=== PATIENT | female | born 1935 | race Caucasian/White ===

== ENCOUNTER 2016-08-14 21:35 | Emergency (ER) | payer MEDICARE, OTHER ==
[2016-08-14 21:46] VITALS: BMI 23.1
[2016-08-14 21:56] VITALS: TEMP 99
[2016-08-14] MEDS ORDERED: ALBUTEROL SO4 0.083% IH SOL 2.5 MG/3 ML VIAL.NEB. NEB ONE (22:12)
--- NOTE | 2016-08-14 22:12 | PDOC ---
History of Present Illness - General History Source: EMS, Alf Records, Old Records Exam Limitations: Clinical Condition - History of Present Illness Initial Comments: 08/14/16 22:53 Patient is an 81 year old female with significant past medical history of COPD, chronic trach, iron deficiency anemia, chronic respiratory failure, CHF, HTN, cardiac arrest, GERD and hx of upper GI bleed sent [facility] [place] [facility] via EMS found to be in respiratory failure. As per EMS the patient was found hypercapnic and after albuterol treatment and suction patient improved. Patient is awake, alert and mouthing words. HPI is limited due to patient's condition. PSH: AICD placement PCP - Dr. Cook <Kristina Knapp - Last Filed: 08/15/16 00:35> <Blanca Hammond - Last Filed: 08/15/16 02:49> - General Chief Complaint: Respiratory Stated Complaint: RESPIRATORY DISTRESS Time Seen by Provider: 08/14/16 21:55 Past History <Kristina Knapp - Last Filed: 08/15/16 00:35> - Past Medical History Anemia: No Asthma: No Cancer: No Cardiac Disorders: Yes (CARDIAC ARREST 1998) CVA: No COPD: Yes CHF: No Dementia: Yes (SHORT TERM MEMORY LOSS) Diabetes: No GI Disorders: No Disorders: No HTN: Yes (RECENTLY STARTED ON BYSTOLIC) Hypercholesterolemia: Yes Liver Disease: No Seizures: No Thyroid Disease: No - Surgical History Abdominal Surgery: No Appendectomy: No Cardiac Surgery: Yes (DEFIBRILLATOR) Cholecystectomy: No Lung Surgery: No Neurologic Surgery: No Orthopedic Surgery: No - Immunization History Immunization Up to Date: Yes - Psycho/Social/Smoking Cessation Hx Anxiety: No Suicidal Ideation: No Smoking History: Unknown if ever smoked Have you smoked in the past 12 months: No Number of Cigarettes Smoked Daily: 0 Cigars Per Day: 0 Information on smoking cessation initiated: No Hx Alcohol Use: No Drug/Substance Use Hx: No Substance Use Type: None <Blanca Hammond - Last Filed: 08/15/16 02:49> - Past Medical History Allergies/Adverse Reactions: Allergies Allergy/AdvReac Type Severity Reaction Status Date / Time doxycycline Allergy Intermediate Verified 08/14/16 21:43 CLAMS Allergy Intermediate Hives Uncoded 08/14/16 21:43 Home Medications: Ambulatory Orders Simvastatin [Zocor -] 20 mg PO DAILY 05/24/12 Ascorbate Calcium [Vitamin C] 500 mg PO DAILY 01/20/16 Docusate Sodium 300 mg PO HS 01/20/16 Ferrous Sulfate 325 mg PO BID 01/20/16 Hypromellose 0.5% Opth Soln [Artificial Tears] 1 drop OU BID 01/20/16 Rivaroxaban [Xarelto -] 20 mg PO DAILY 01/20/16 Clonazepam 0.5 mg PO DAILY 04/15/16 Lactose-Reduced Food [Ensure Plus] 237 ml PO BID 04/15/16 Multivitamins [Multivit ([facility] Formulary)] 1 tab PO DAILY 04/15/16 Acetaminophen [Tylenol .Regular Strength -] 650 mg PO Q4H PRN #0 tablet Bacitracin - [Bacitracin Topical Ointment -] 1 applic TP DAILY #1 tube 04/21/16 Cyproheptadine [Periactin -] 4 mg PO Q12H 08/14/16 Ipratropium [place] 0.2 mg IH QID 08/14/16 Loratadine 10 mg PO DAILY 08/14/16 Omeprazole 20 mg PO DAILY 08/14/16 Ranitidine HCl [Zantac] 150 mg PO DAILY 08/14/16 Review of Systems - Review of Systems Able to Perform ROS?: No Comments:: 08/14/16 22:53 Patient was found in respiratory distress, unable to obtain ROS due to patient' s clinical condition. <Kristina Knapp - Last Filed: 08/15/16 00:35> *Physical Exam - Vital Signs Last Vital Signs Temp Pulse Resp BP Pulse Ox 99 F 92 H 12 103/60 99 08/14/16 21:43 08/14/16 22:34 08/14/16 21:57 08/14/16 22:34 08/14/16 22:34 - Physical Exam Comments: 08/14/16 22:54 GENERAL: +Frail, alert, mouthing words, chronic trach. HEENT: Normocephalic, atraumatic. PERRLA, EOMI. No conjunctival pallor. Sclera are non- icteric. Moist mucous membranes. Oropharynx is clear. NECK: Supple. Full ROM. No JVD. Carotid pulses 2+ and symmetric, without bruits. No thyromegaly. No lymphadenopathy. CARDIOVASCULAR: Regular rate and rhythm. No murmurs, rubs, or gallops. Distal pulses are 2+ and symmetric. PULMONARY: +Rhonchorous breath sounds, respiratory distress. No wheezing, rales. ABDOMINAL: Soft. Non-tender. Non-distended. No rebound or guarding. No organomegaly. Normoactive bowel sounds. MUSCULOSKELETAL Normal range of motion at all joints. No bony deformities or tenderness. No CVA tenderness. EXTREMITIES: No cyanosis. No clubbing. No edema. No calf tenderness. SKIN: Warm and dry. Normal capillary refill. No rashes. No jaundice. NEUROLOGICAL: Alert, awake, appropriate. Cranial nerves 2-12 intact. No deficits to light touch and temperature in face, upper extremities and lower extremities. No motor deficits in the in face, upper extremities and lower extremities. Normoreflexic in the upper and lower extremities. Toes are down-going bilaterally. PSYCHIATRIC: Cooperative. Good eye contact. Appropriate mood and affect. <Kristina Knapp - Last Filed: 08/15/16 00:35> - Vital Signs Last Vital Signs Temp Pulse Resp BP Pulse Ox 99 F 95 H 12 97/65 99 08/14/16 21:43 08/14/16 21:57 08/14/16 21:57 08/14/16 21:43 08/14/16 21:57 <Blanca Hammond - Last Filed: 08/15/16 02:49> ED Treatment Course - LABORATORY CBC & Chemistry Diagram: 08/14/16 22:19 08/14/16 22:19 - ADDITIONAL ORDERS Additional order review: 08/14/16 22:19 RBC 4.08 MCV 87.1 MCHC 32.6 RDW 14.8 MPV 9.1 D Neutrophils % 83.8 H Lymphocytes % 7.0 L Monocytes % 8.2 D Eosinophils % 0.5 D Basophils % 0.5 - RADIOLOGY Radiology Studies Ordered: 08/15/16 00:35 EXAM: X-RAY CHEST Small lucency projecting lateral to left sixth rib interspace and lucnecy in left costophrenic angle, question small pneumothorax/subpleural bleb and small lung herniation versus artifact. Advise correlation with prior radiographs if available and if not, follow-up chest CT. No focal lung consolidation. Small left pleural effusion. Compression and/or consolidation lower left lung. Stent ascending aorta. Left chest AICD. Cardiomegaly and/or pericardial effusion. Tracheostomy tube. Hyperinflation lungs due to emphysema or deep breath. - Medications Given in the ED: ED Medications Discontinued Medications Generic Name Dose Route Start Last Admin Trade Name Freq PRN Reason Stop Dose Admin Albuterol Sulfate 1 amp 08/14/16 22:12 08/14/16 22:19 Ventolin 0.083% Nebulizer Soln - NEB 08/14/16 22:13 1 amp ONCE ONE Administration <Kristina Knapp - Last Filed: 08/15/16 00:35> - LABORATORY CBC & Chemistry Diagram: 08/14/16 22:19 08/14/16 22:19 - RADIOLOGY Radiology Studies Ordered: Category Date Time Status CHEST X-RAY PORTABLE* [RAD] Stat Radiology 08/14/16 22:04 Ordered <Blanca Hammond - Last Filed: 08/15/16 02:49> Medical Decision Making - Medical Decision Making 08/15/16 02:37 The paramedics stated the patient was initially in respiratory distress, but after suctioning copious amounts of secretions in her trach she felt much better neg trop cbc unremarkable no fever pt was alert during her hospital stay -she did receive neb treatment and suctioning in ER IMP mucus plug <Blanca Hammond - Last Filed: 08/15/16 02:49> *DC/Admit/Observation/Transfer - Attestations Scribe Attestion: 08/14/16 22:56 Documentation prepared by SUSANNE Newton, acting as nurses medical assistants phlebotomists for Blanca Hammond MD. <Kristina Knapp - Last Filed: 08/15/16 00:35> <Blanca Hammond - Last Filed: 08/15/16 02:49> Diagnosis at time of Disposition: Respirator dependence Chronic respiratory failure Qualifiers: Respiratory failure complication: hypercapnia Qualified Code(s): J96.12 - Chronic respiratory failure with hypercapnia - Discharge Dispostion Disposition: HOME Condition at time of disposition: Stable - Referrals Referrals: Royer Verduzco MD [Primary Care Provider] - - Patient Instructions Printed Discharge Instructions: DI for Chronic Obstructive Pulmonary Disease Additional Instructions: please continue regular medications
[2016-08-14 22:35] VITALS: BP 103/60; PULSE 92
[2016-08-14 22:38] LABS: BASOPHIL 0.5 % (0-2.0); EOSINOPHIL 0.5 % (0-4.5); MCH 28.4 pg (25.7-33.7); MCHC 32.6 g/dl (32.0-36.0); MEAN CELL VOLUME 87.1 fl (80-96); MEAN PLT VOLUME 9.1 fl (7.5-11.1); NEUTROPHILS 83.8 % (42.8-82.8); PLATELET COUNT 166 K/MM3 (134-434); RDW 14.8 % (11.6-15.6); WHITE BLOOD COUNT 8.6 K/mm3 (4.0-10.0)
[2016-08-14 23:13] LABS: ANION GAP 4 (8-16); CALCIUM 8.7 mg/dL (8.5-10.1); CO2 35 mmol/L (21-32); CREATININE 0.6 mg/dL (0.55-1.02); GLUCOSE,RANDOM 151 mg/dL (74-106); SGOT/AST 16 U/L (15-37); SGPT/ALT 20 U/L (12-78); TROPONIN I < 0.02 ng/ml (0.00-0.05)
[2016-08-14 23:15] LABS: ALK PHOS 98 U/L (45-117); BILIRUBIN,TOTAL 0.2 mg/dL (0.2-1.0); TOT PROT 6.6 g/dl (6.4-8.2)
[2016-08-15 01:43] LABS: ARTERIAL BLD GAS O2 SATURATION 98.9 % (90-98.9); ARTERIAL BLOOD GAS BASE EXCESS 8.5 meq/l (-2-2); ARTERIAL BLOOD GAS pH 7.38 (7.35-7.45)
[2016-08-15 01:44] LABS: ALLENS TEST POSITIVE; ART PUNCT SITE RIGHT RADIAL; LPM/O2% 45%; MECH. VENT. YES; PT. ON O2? YES; TYPE OF O2 MECH VENT; VENT RATE 12; VT/PRESS 450
[2016-08-15 01:45] LABS: ARTERIAL BLOOD GAS HCO3 35.1 meq/L (22-26)
[2016-08-15] MEDS ORDERED: ALBUTEROL SO4 2.5/IPRATROPIUM 0.5 INH SOL 3 ML VIAL.NEB. NEB ONE ×2 (02:36→02:53)
--- NOTE | 2016-08-15 12:48 | EKG ---
Test Reason : Blood Pressure : / mmHG Vent. Rate : 092 BPM Atrial Rate : 092 BPM P-R Int : 136 ms QRS Dur : 074 ms QT Int : 332 ms P-R-T Axes : 000 -47 063 degrees QTc Int : 410 ms NORMAL SINUS RHYTHM LEFT AXIS DEVIATION ANTEROSEPTAL INFARCT (CITED ON OR BEFORE 15-APR-2016) ABNORMAL ECG WHEN COMPARED WITH ECG OF 15-APR-2016 01:13, PREMATURE ATRIAL COMPLEXES ARE NO LONGER PRESENT T WAVE VARIATION Confirmed by NIKHIL LINN MD ([id number]) on 08/15/2016 12:48:22 PM Referred By: Confirmed By:NIKHIL LINN MD
== END 2016-08-15 05:15 ==
LOC: JER 21:35
PROC: 3E0F7GC Introduction of Other Therapeutic Substance into Respiratory Tract, Via Natural or Artificial Opening (ICD-10-PCS; principal; 2016-08-14)
PROC: 3E0F7GC Introduction of Other Therapeutic Substance into Respiratory Tract, Via Natural or Artificial Opening (ICD-10-PCS; 2016-08-14)
DX: J96.12 Chronic respiratory failure with hypercapnia (principal); T17.890A Other foreign object in other parts of respiratory tract causing asphyxiation, initial encounter; J44.9 Chronic obstructive pulmonary disease, unspecified; I10 Essential (primary) hypertension; K21.9 Gastro-esophageal reflux disease without esophagitis; I50.9 Heart failure, unspecified; D50.9 Iron deficiency anemia, unspecified; Z93.0 Tracheostomy status; Z86.74 Personal history of sudden cardiac arrest
CPT/HCPCS: 36415; 36600; 71010-TC; 80053; 82375; 82550; 82803; 83880; 84484; 85025; 93005; 93010; 99283-25

== ENCOUNTER 2016-08-17 16:51 | Inpatient (IN) | payer OTHER ==
--- NOTE | 2016-08-17 18:09 | PDOC ---
History of Present Illness - General History Source: EMS, Assisted Records, Old Records Exam Limitations: Clinical Condition - History of Present Illness Initial Comments: 08/17/16 18:38 The patient is an 81 year old female, with a significant past medical history of multiple comorbidities including iron deficiency anemia, HTN, hyperlipidemia , COPD, chronic tracheotomy on a ventilator, chronic respiratory failure, CHF, cardiac arrest (1998), GERD and upper GI bleed, who presents to the emergency department via EMS from [facility] for evaluation with a fever and altered mental status. HPI is limited due to patients clinical condition. Allergies: Doxycycline, Clams Past Surgical History: AICD Placement PCP: Dr. Cook <Elizabeth Maria - Last Filed: 08/17/16 23:03> <George Brown - Last Filed: 08/17/16 23:47> - General Chief Complaint: Altered Mental Status Stated Complaint: AMS Time Seen by Provider: 08/17/16 18:04 Past History <Elizabeth Maria - Last Filed: 08/17/16 23:03> - Past Medical History Anemia: Yes Asthma: No Cancer: No Cardiac Disorders: Yes (CARDIAC ARREST 1998) CVA: No COPD: Yes CHF: No Dementia: Yes (SHORT TERM MEMORY LOSS) Diabetes: No GI Disorders: No Disorders: No HTN: Yes (RECENTLY STARTED ON BYSTOLIC) Hypercholesterolemia: Yes Liver Disease: No Seizures: No Thyroid Disease: No - Surgical History Abdominal Surgery: No Appendectomy: No Cardiac Surgery: Yes (DEFIBRILLATOR) Cholecystectomy: No Lung Surgery: No Neurologic Surgery: No Orthopedic Surgery: No - Immunization History Immunization Up to Date: Yes - Psycho/Social/Smoking Cessation Hx Anxiety: No Suicidal Ideation: No Smoking History: Unknown if ever smoked Have you smoked in the past 12 months: No Number of Cigarettes Smoked Daily: 0 Cigars Per Day: 0 Information on smoking cessation initiated: No Hx Alcohol Use: No Drug/Substance Use Hx: No Substance Use Type: None <George Brown - Last Filed: 08/17/16 23:47> - Past Medical History Allergies/Adverse Reactions: Allergies Allergy/AdvReac Type Severity Reaction Status Date / Time doxycycline Allergy Intermediate Verified 08/17/16 18:00 CLAMS Allergy Intermediate Hives Uncoded 08/17/16 18:00 Home Medications: Ambulatory Orders Simvastatin [Zocor -] 20 mg PO DAILY 05/24/12 Ascorbate Calcium [Vitamin C] 500 mg PO DAILY 01/20/16 Docusate Sodium 300 mg PO HS 01/20/16 Ferrous Sulfate 325 mg PO BID 01/20/16 Hypromellose 0.5% Opth Soln [Artificial Tears] 1 drop OU BID 01/20/16 Rivaroxaban [Xarelto -] 20 mg PO DAILY 01/20/16 Clonazepam 0.5 mg PO DAILY 04/15/16 Lactose-Reduced Food [Ensure Plus] 237 ml PO BID 04/15/16 Multivitamins [Multivit ([facility] Formulary)] 1 tab PO DAILY 04/15/16 Acetaminophen [Tylenol .Regular Strength -] 650 mg PO Q4H PRN #0 tablet Bacitracin - [Bacitracin Topical Ointment -] 1 applic TP DAILY #1 tube 04/21/16 Cyproheptadine [Periactin -] 4 mg PO Q12H 08/14/16 Ipratropium [place] 0.2 mg IH QID 08/14/16 Loratadine 10 mg PO DAILY 08/14/16 Omeprazole 20 mg PO DAILY 08/14/16 Ranitidine HCl [Zantac] 150 mg PO DAILY 08/14/16 Review of Systems - Review of Systems Able to Perform ROS?: No Comments:: 08/17/16 18:30 Unable to perform ROS due to patient's clinical condition. <Elizabeth Maria - Last Filed: 08/17/16 23:03> *Physical Exam - Vital Signs Last Vital Signs Temp Pulse Resp BP Pulse Ox 99.7 F H 77 18 93/51 98 08/17/16 17:56 08/17/16 17:56 08/17/16 17:56 08/17/16 17:56 08/17/16 17:56 - Physical Exam Comments: 08/17/16 22:52 CONSTITUTIONAL: Frail appearing. Lethargic but opens eyes to verbal stimuli, follows simple commands. HEAD: Normocephalic; atraumatic. EYES: Pupils are pinpoint. ENMT: Dry mucosa. External appears normal; normal oropharynx. NECK: Tracheotomy, on a ventilator. Supple; non-tender; no cervical lymphadenopathy. CARD: Normal S1, S2; no murmurs, rubs, or gallops. RESP: Normal chest excursion with respiration; breath sounds clear and equal bilaterally; no wheezes, rhonchi, or rales. ABD: Soft, non-distended; non-tender; no palpable organomegaly, no palpable hernias. EXT: Normal ROM in all four extremities; non-tender to palpation; distal pulses intact. SKIN: Severe muscle wasting bilaterally of the upper and lower extremities. Warm , dry, no rash. NEURO: Moving all extremities symmetrically. Gait is deferred. <Elizabeth Maria - Last Filed: 08/17/16 23:03> - Vital Signs Last Vital Signs Temp Pulse Resp BP Pulse Ox 99.7 F H 77 18 93/51 98 08/17/16 17:56 08/17/16 17:56 08/17/16 17:56 08/17/16 17:56 08/17/16 17:56 <George Brown - Last Filed: 08/17/16 23:47> Heart Score/ECG Review #1 ECG reviewed & interpreted by me at: 21:04 (Vent Rate: 77 bpm. Normal sinus rhythm. ) <Elizabeth Maria - Last Filed: 08/17/16 23:03> ED Treatment Course - LABORATORY CBC & Chemistry Diagram: 08/17/16 20:13 08/17/16 20:13 <Elizabeth Maria - Last Filed: 08/17/16 23:03> - LABORATORY CBC & Chemistry Diagram: 08/17/16 20:13 08/17/16 20:13 <George Brown - Last Filed: 08/17/16 23:47> Medical Decision Making - Medical Decision Making 08/17/16 22:07 EXAM: RAD/CHEST X-RAY PORTABLE Reviewed By: Dr. Leroy Vale IMPRESSION: COPD and left pleural effusion. Called Dr. Mcclendon at at 22:52. Referred to answering service, awaiting callback. Dr. Mcclendon returned call at 10:57. Case discussed. <Elizabeth Maria - Last Filed: 08/17/16 23:03> - Medical Decision Making 08/17/16 23:43 Patient is a frail appearing 81-year-old female, currently on ventilator for respiratory failure presents with lethargy and altered mental status from [facility]. Patient is afebrile and normotensive. On initial evaluation, patient was hard to arouse, had dry mucous membranes and followed only simple commands. After a period of observation and fluid resuscitation, patient is noted to be awake and alert, resting comfortably, follows commands, noted to be drinking water. CBC is within normal limit. CMP reveals increased BUN to creatinine ratio consistent with prerenal dehydration. Chest x-ray reveals COPD and left-sided pleural effusion. Urinalysis reveals 3+ leuk esterase. I suspect dehydration with UTI. Review of patient's previous records revealed urinary culture from April 11 which was positive for Escherichia coli and Klebsiella which was sensitive to ceftriaxone. Patient received a gram of IV ceftriaxone. Patient will require admission for further hydration and antibiotic therapy. Dr. Mcclendon informed. <George Brown - Last Filed: 08/17/16 23:47> *DC/Admit/Observation/Transfer - Attestations Scribe Attestion: 08/17/16 18:20 Documentation prepared by Elizabeth Maria, acting as pediatrician/medical doctor for George Brown MD. <Elizabeth Maria - Last Filed: 08/17/16 23:03> - Discharge Dispostion Admit: Yes - Attestations Physician Attestion: 08/17/16 23:42 The documentation was prepared by the scribe under my direct supervision. I have reviewed the documentation which correctly represents the findings, medical decision-making and critical action taken by me. <George Brown - Last Filed: 08/17/16 23:47> Diagnosis at time of Disposition: Dehydration UTI (urinary tract infection) Qualifiers: Urinary tract infection type: site unspecified Hematuria presence: without hematuria Qualified Code(s): N39.0 - Urinary tract infection, site not specified Altered mental status Qualifiers: Altered mental status type: unspecified Qualified Code(s): R41.82 - Altered mental status, unspecified - Discharge Dispostion Condition at time of disposition: Fair - Referrals Referrals: Royer Verduzco MD [Primary Care Provider] -
[2016-08-17] MEDS ORDERED: SODIUM CHLORIDE 0.9% 1000 ML INFUS.BAG IV PRN (18:53)
[2016-08-17 20:21] LABS: VENOUS PH 7.42 (7.31-7.41)
[2016-08-17 20:22] LABS: VENOUS BLOOD GAS HCO3 35.4 meq/L (22-29)
[2016-08-17 20:31] LABS: BASOPHIL 0.6 % (0-2.0); EOSINOPHIL 4.5 % (0-4.5); MCH 28.4 pg (25.7-33.7); MCHC 32.7 g/dl (32.0-36.0); MEAN CELL VOLUME 86.7 fl (80-96); MEAN PLT VOLUME 8.6 fl (7.5-11.1); NEUTROPHILS 72.5 % (42.8-82.8); PLATELET COUNT 205 K/MM3 (134-434); RDW 14.9 % (11.6-15.6); WHITE BLOOD COUNT 9.4 K/mm3 (4.0-10.0)
[2016-08-17 20:41] LABS: INR 1.14 (0.82-1.09); PROTHROMBIN TIME (PATIENT) 12.6 SEC (9.98-11.88)
[2016-08-17 20:44] LABS: ACTIVATED PTT 30.6 SECONDS (26.9-34.4)
[2016-08-17 21:04] LABS: ALBUMIN 3.1 g/dl (3.4-5.0); ANION GAP 7 (8-16); BILIRUBIN,TOTAL 0.4 mg/dL (0.2-1.0); CALCIUM 8.6 mg/dL (8.5-10.1); CO2 35 mmol/L (21-32); CREATININE 0.9 mg/dL (0.55-1.02); GLUCOSE,RANDOM 120 mg/dL (74-106); SGOT/AST 15 U/L (15-37); SGPT/ALT 22 U/L (12-78); TOT PROT 6.3 g/dl (6.4-8.2)
[2016-08-17 21:18] LABS: ALK PHOS 95 U/L (45-117); TROPONIN I < 0.02 ng/ml (0.00-0.05)
[2016-08-17 22:33] LABS: URINE APPEARANCE TURBID; URINE BILIRUBIN NEGATIVE (NEGATIVE); URINE BLOOD NEGATIVE (NEGATIVE); URINE COLOR AMBER; URINE GLUCOSE (UA) NEGATIVE (NEGATIVE); URINE KETONE NEGATIVE (NEGATIVE); URINE NITRITE NEGATIVE (NEGATIVE); URINE UROBILINOGEN NEGATIVE E.U./dl (0.2-1.0)
[2016-08-17 22:38] LABS: URINE LEUK ESTERASE 3+ (NEGATIVE); URINE PROTEIN 3+ (NEGATIVE)
[2016-08-17 22:41] LABS: URINE BACTERIA FEW /hpf (NONE SEEN); URINE MUCUS RARE; URINE RBC 87 /hpf (0-3); URINE WBC 1708 /hpf (3-5); YEAST MANY
[2016-08-17] MEDS ORDERED: CEFTRIAXONE 1 GM in DEXTROSE 5%-WATER - 50 ML IVPB ONE (22:51)
[2016-08-18] MEDS ORDERED: ACETAMINOPHEN 325 MG TABLET (FP) PO PRN (00:06)
[2016-08-18] MEDS ORDERED: clonazePAM 0.5 MG TABLET PO PRN (00:06)
[2016-08-18] MEDS ORDERED: CEFTRIAXONE 50 ML ONE (01:21)
[2016-08-18] MEDS ORDERED: ARTIFICIAL TEARS (POLYVINYL ALCOHOL 1.4%) OPTH DROPS OU PRN (02:34)
[2016-08-18] MEDS: DEXTROSE 5%-0.45% SALINE 1,000 ML IV SCH ×2 (02:52→14:23)
--- NOTE | 2016-08-18 09:56 | HP ---
Admitting History and Physical - Primary Care Physician PCP: Jacky Cook - Admission History of Present Illness: The patient is an 81 year old female, with a significant past medical history of multiple comorbidities including iron deficiency anemia, HTN, hyperlipidemia , COPD, chronic tracheotomy on a ventilator, chronic respiratory failure, CHF, cardiac arrest (1998), GERD and upper GI bleed, who presents to the emergency department via EMS from [facility] for evaluation with a fever and altered mental status. HPI is limited due to patients clinical condition. Allergies: Doxycycline, Clams Past Surgical History: AICD Placement PCP: Dr. Cook patient got rocephin in er and nebulizer elevarted lactic acid now is normal Limitations to Obtaining History: Clinical Condition - Past Medical History Cardiovascular: Yes: AFIB (Paroxysmal), CHF, HTN, Hyperlipdemia, Other (h/o cardiac arrest s/p AICD) Pulmonary: Yes: COPD, Other (respiratory failure) Gastrointestinal: Yes: GERD Heme/Onc: Yes: Anemia - Past Surgical History Past Surgical History: Yes: AICD ([employer] implanted 5 years ago?), Cataract Removal (2011) - Smoking History Smoking history: Unknown if ever smoked Have you smoked in the past 12 months: No Aproximately how many cigarettes per day: 0 - Alcohol/Substance Use Hx Alcohol Use: No Home Medications - Allergies Allergies/Adverse Reactions: Allergies Allergy/AdvReac Type Severity Reaction Status Date / Time doxycycline Allergy Intermediate Verified 08/17/16 18:00 CLAMS Allergy Intermediate Hives Uncoded 08/17/16 18:00 - Home Medications Home Medications: Ambulatory Orders Simvastatin [Zocor -] 20 mg PO DAILY 05/24/12 Ascorbate Calcium [Vitamin C] 500 mg PO DAILY 01/20/16 Docusate Sodium 300 mg PO HS 01/20/16 Ferrous Sulfate 325 mg PO BID 01/20/16 Hypromellose 0.5% Opth Soln [Artificial Tears] 1 drop OU BID 01/20/16 Rivaroxaban [Xarelto -] 20 mg PO DAILY 01/20/16 Clonazepam 0.5 mg PO DAILY 04/15/16 Lactose-Reduced Food [Ensure Plus] 237 ml PO BID 04/15/16 Multivitamins [Multivit ([facility] Formulary)] 1 tab PO DAILY 04/15/16 Acetaminophen [Tylenol .Regular Strength -] 650 mg PO Q4H PRN #0 tablet Bacitracin - [Bacitracin Topical Ointment -] 1 applic TP DAILY #1 tube 04/21/16 Cyproheptadine [Periactin -] 4 mg PO Q12H 08/14/16 Ipratropium [place] 0.2 mg IH QID 08/14/16 Loratadine 10 mg PO DAILY 08/14/16 Omeprazole 20 mg PO DAILY 08/14/16 Ranitidine HCl [Zantac] 150 mg PO DAILY 08/14/16 Review of Systems Unable to obtain ROS, reason: has trach Physical Examination Vital Signs: Vital Signs Temperature 99.7 F H 08/17/16 17:56 Pulse Rate 74 08/18/16 09:45 Respiratory Rate 12 08/18/16 09:45 Blood Pressure 122/41 08/18/16 04:19 O2 Sat by Pulse Oximetry (%) 98 08/18/16 09:45 Constitutional: Yes: Calm Neck: Yes: Other (trach) Cardiovascular: Yes: Regular Rate and Rhythm, S1, S2 Respiratory: Yes: Diminished (on left side wheezing on right side), Wheezes Gastrointestinal: Yes: Normal Bowel Sounds, Soft Edema: No Neurological: Yes: Alert Imaging - Results Chest X-ray: Report Reviewed (left pleural efssuon and hyperinflated) Problem List - Problems (1) UTI (urinary tract infection) Assessment/Plan: urince c/s rocephin Code(s): N39.0 - URINARY TRACT INFECTION, SITE NOT SPECIFIED Qualifiers: Urinary tract infection type: site unspecified Hematuria presence: without hematuria Qualified Code(s): N39.0 - Urinary tract infection, site not specified (2) Chronic respiratory failure Assessment/Plan: vent Code(s): J96.10 - CHRONIC RESPIRATORY FAILURE, UNSP W HYPOXIA OR HYPERCAPNIA Qualifiers: Respiratory failure complication: hypercapnia Qualified Code(s): J96.12 - Chronic respiratory failure with hypercapnia (3) PAF (paroxysmal atrial fibrillation) Assessment/Plan: xarelto Code(s): I48.0 - PAROXYSMAL ATRIAL FIBRILLATION (4) COPD (chronic obstructive pulmonary disease) Assessment/Plan: steroids bronchodilators pulm eval ppi Code(s): J44.9 - CHRONIC OBSTRUCTIVE PULMONARY DISEASE, UNSPECIFIED (5) Pleural effusion Assessment/Plan: pulm eval Code(s): J90 - PLEURAL EFFUSION, NOT ELSEWHERE CLASSIFIED
[2016-08-18] MEDS ORDERED: IPRATROPIUM BR 0.02% 0.5 MG/2.5 ML VIAL.NEB. NEB SCH (10:00)
[2016-08-18] MEDS ORDERED: HEPARIN NA (PORCINE) 5,000 UNITS/ML 1ML VIAL SQ SCH (10:00)
[2016-08-18] MEDS ORDERED: PATIENT'S OWN MEDICATION (NON-FORMULARY) (Lactose-Reduced Food [Ensure Plus] 237 ML) PO SCH (10:00)
--- NOTE | 2016-08-18 10:04 | EKG ---
Test Reason : Blood Pressure : / mmHG Vent. Rate : 077 BPM Atrial Rate : 079 BPM P-R Int : 254 ms QRS Dur : 078 ms QT Int : 288 ms P-R-T Axes : 163 000 020 degrees QTc Int : 325 ms ECTOPIC ATRIAL RHYTHM POOR DATA QUALITY, INTERPRETATION MAY BE ADVERSELY AFFECTED CANNOT RULE OUT SEPTAL INFARCT , AGE UNDETERMINED ABNORMAL ECG Confirmed by JAXON BARTON MD ([id number]) on 08/18/2016 10:03:47 AM Referred By: Confirmed By:JAXON BARTON MD
--- NOTE | 2016-08-18 12:29 | PN ---
Progress Note (short form) - Note Progress Note: PULMONARY CONSULTATION DICTATED 08/18/16 IMP ACUTE ON CHRONIC HYPOXEMIC/HYPERCAPNEIC RESPIRATORY FAILURE CHRONIC VENT DEPENDENT COPD ALTERED MENTAL STATUS LIKELY UROSEPSIS PAF CHF ASHD S/P AICD H/O CARDIAC ARREST AZOTEMIA CHRONIC LEFT PLEURAL EFFUSION HTN ELEVATED LACTATE LEVEL PLAN VENT SUPPORT ON AC MODE ANTIBIOTICS STEROID TAPER CULTURES INHALED BRONCHODILATORS F/U CHEST X-RAY IVF TREND LACTATE MONITOR LYTES,CBC ANTICOAGULATION DR CABRERA Problem List - Problems (1) Altered mental status Code(s): R41.82 - ALTERED MENTAL STATUS, UNSPECIFIED Qualifiers: Altered mental status type: unspecified Qualified Code(s): R41.82 - Altered mental status, unspecified (2) COPD (chronic obstructive pulmonary disease) Code(s): J44.9 - CHRONIC OBSTRUCTIVE PULMONARY DISEASE, UNSPECIFIED (3) Dehydration Code(s): E86.0 - DEHYDRATION (4) Pleural effusion Code(s): J90 - PLEURAL EFFUSION, NOT ELSEWHERE CLASSIFIED (5) UTI (urinary tract infection) Code(s): N39.0 - URINARY TRACT INFECTION, SITE NOT SPECIFIED Qualifiers: Urinary tract infection type: site unspecified Hematuria presence: without hematuria Qualified Code(s): N39.0 - Urinary tract infection, site not specified (6) AICD (automatic cardioverter/defibrillator) present Code(s): Z95.810 - PRESENCE OF AUTOMATIC (IMPLANTABLE) CARDIAC DEFIBRILLATOR (7) Chronic respiratory failure Code(s): J96.10 - CHRONIC RESPIRATORY FAILURE, UNSP W HYPOXIA OR HYPERCAPNIA Qualifiers: Respiratory failure complication: hypercapnia Qualified Code(s): J96.12 - Chronic respiratory failure with hypercapnia (8) HTN (hypertension) Code(s): I10 - ESSENTIAL (PRIMARY) HYPERTENSION (9) PAF (paroxysmal atrial fibrillation) Code(s): I48.0 - PAROXYSMAL ATRIAL FIBRILLATION (10) Respirator dependence Code(s): Z99.11 - DEPENDENCE ON RESPIRATOR [VENTILATOR] STATUS (11) Acute and chronic respiratory failure with hypercapnia Code(s): J96.22 - ACUTE AND CHRONIC RESPIRATORY FAILURE WITH HYPERCAPNIA
[2016-08-18] MEDS: CYPROHEPTADINE HCL 4 MG TABLET PO SCH ×2 (12:37→22:00)
[2016-08-18] MEDS: RIVAROXABAN 20 MG TABLET PO SCH (12:37)
[2016-08-18] MEDS: PANTOPRAZOLE 20 MG TABLET (FP) PO SCH (12:37)
[2016-08-18] MEDS: LORATADINE 10 MG TABLET PO SCH (12:37)
[2016-08-18] MEDS: FERROUS SO4 325 MG TABLET (FP) PO SCH ×2 (12:37→21:21)
[2016-08-18] MEDS: RANITIDINE HCL 150 MG TABLET (FP) PO SCH (12:37)
[2016-08-18] MEDS: MULTIVITAMINS (DAILY MVI) TABLET (FP) PO SCH (12:37)
[2016-08-18] MEDS: ASCORBIC ACID 500 MG TABLET (FP) PO SCH (12:37)
--- NOTE | 2016-08-18 14:12 | PN ---
Progress Note, Physician Chief Complaint: ID Full noted dictated - Current Medication List Current Medications: Active Medications Acetaminophen (Tylenol -) 650 mg PO Q6H PRN PRN Reason: HEADACHE/TEMP > 100.6 Albuterol/Ipratropium (Duoneb -) 1 amp NEB Q4H PRN PRN Reason: SHORTNESS OF BREATH Artificial Tears (Artificial Tears) 1 drop OU BID PRN PRN Reason: DRY EYES Ascorbic Acid (Vitamin C -) 500 mg PO DAILY [facility] Last Admin: 08/18/16 12:37 Dose: 500 mg Atorvastatin Calcium (Lipitor -) 10 mg PO HS [facility] Bacitracin (Bacitracin -) 1 applic TP DAILY [facility] Clonazepam (Klonopin -) 0.5 mg PO DAILY PRN PRN Reason: ANXIETY Cyproheptadine HCl (Periactin -) 4 mg PO BID [facility] Last Admin: 08/18/16 12:37 Dose: 4 mg Docusate Sodium (Colace -) 300 mg PO HS [facility] Ferrous Sulfate (Feosol -) 325 mg PO BID [facility] Last Admin: 08/18/16 12:37 Dose: 325 mg Dextrose/Sodium Chloride (D5-1/2ns -) 1,000 mls @ 100 mls/hr IV ASDIR [facility] Last Admin: 08/18/16 02:52 Dose: 100 mls/hr Loratadine (Claritin -) 10 mg PO DAILY [facility] Last Admin: 08/18/16 12:37 Dose: 10 mg Methylprednisolone Sodium Succinate (Solu-Medrol -) 40 mg IVPB Q8H-IV [facility] Multivitamins/Minerals/Vitamin C (Tab-A-Vit -) 1 tab PO DAILY [facility] Last Admin: 08/18/16 12:37 Dose: 1 tab Pantoprazole Sodium (Protonix -) 20 mg PO DAILY [facility] Last Admin: 08/18/16 12:37 Dose: 20 mg Ranitidine HCl (Zantac -) 150 mg PO DAILY [facility] Last Admin: 08/18/16 12:37 Dose: 150 mg Rivaroxaban (Xarelto -) 20 mg PO DAILY [facility] Last Admin: 08/18/16 12:37 Dose: 20 mg Sodium Chloride (Normal Saline -) 500 ml IV Q20M PRN PRN Reason: MAP<65mm Hg OR SBP <90 - Objective Vital Signs: Vital Signs Temperature 99.7 F H 08/17/16 17:56 Pulse Rate 86 08/18/16 13:43 Respiratory Rate 12 08/18/16 13:43 Blood Pressure 122/41 08/18/16 04:19 O2 Sat by Pulse Oximetry (%) 97 08/18/16 13:43 Neck: Yes: Other (trach) Cardiovascular: Yes: S1, S2 Respiratory: Yes: Rhonchi Gastrointestinal: Yes: Soft Edema: No Labs: INR, PTT INR 1.14 (0.82-1.09) 08/17/16 20:13 Problem List - Problems (1) COPD (chronic obstructive pulmonary disease) Code(s): J44.9 - CHRONIC OBSTRUCTIVE PULMONARY DISEASE, UNSPECIFIED (2) UTI (urinary tract infection) Code(s): N39.0 - URINARY TRACT INFECTION, SITE NOT SPECIFIED Qualifiers: Urinary tract infection type: site unspecified Hematuria presence: without hematuria Qualified Code(s): N39.0 - Urinary tract infection, site not specified Assessment/Plan Assessment Altered mental status as per medical record Low grade temp Urinary tract infection Plan Continue current antibiitic Ceftriaxone as ordered Alfred GOMEZ
[2016-08-18 14:47] VITALS: BMI 20.7
--- NOTE | 2016-08-18 15:13 | CONS ---
DATE OF CONSULTATION: 08/18/2016 REFERRING PHYSICIAN: Jacky Cook MD The patient is an 81-year-old white female resident of [facility] with a past medical history of ASHD, CHF, status post cardiac arrest, status post ICD placement, chronic respiratory failure on ventilatory support, status post tracheostomy, hypertension, hyperlipidemia, anemia, history of GI bleed, GERD. Transferred to [facility] from [facility] on August 17 secondary to fever and change in mental status. The patient was admitted with the above. On admission, she had a chest x-ray performed which revealed evidence of COPD changes and a chronic left pleural effusion. On admission, she was also felt to have a UTI, some dehydration, she was started on IV fluids as well as broad-spectrum antibiotics. No further history available, at this time. PAST MEDICAL HISTORY: Chronic respiratory failure on ventilatory support; status post tracheostomy; congestive heart failure; status post cardiac arrest, 1998; status post AICD placement; hyperlipidemia; COPD; iron-deficiency anemia; hypertension; GERD; GI bleed. REVIEW OF SYSTEMS: At this time, the patient denies any chest pain. Denies any shortness of breath. Denies any abdominal pain. CURRENT MEDICATIONS: Include Solu-Medrol of 40 q.8; Tylenol; bacitracin; Xarelto; Klonopin; DuoNeb; Colace; artificial tears; normal saline; Periactin; Temovate; Protonix; Claritin; and vitamin C. PHYSICAL EXAMINATION: General: The patient is an elderly white female, well developed, well nourished, awake, alert, on ventilatory support. Appears comfortable. Vital signs: She is currently febrile; temp is 99.7; her blood pressure is 122/41; her respiratory rate is 12; O2 saturation is 98% on the ventilator. HEENT: Exam is normocephalic, atraumatic. Neck: Supple. Trachea is patent. Heart: Irregular with normal S1 and S2. Chest: Diminished breath sounds bilaterally. Abdomen: Soft. Bowel sounds are present. Extremities: No cyanosis, edema. LABORATORIES: Sodium is 146, BUN is 36, creatinine 0.9. Lactate level is 2.317. WBC 9.4, hemoglobin 11.7, hematocrit 35.9, with a platelet count of 205,000. Chest x-ray revealed COPD changes; tracheostomy tube present; there is blunting of the left costophrenic angle. VB.42, PCO2 of 56 and PO2 of 31. IMPRESSION: 1. Acute on chronic hypercapnic, hypoxic respiratory failure. 2. Chronic respiratory failure. On ventilator support. 3. Altered mental status. 4. Likely urinary tract infection or urosepsis. 5. Dehydration. 6. Elevated lactate level. 7. Congestive heart failure. Status post implantable cardioverter-defibrillator. 8. Status post cardiac arrest. 9. Hypertension. 10. Iron-deficiency anemia. 11. Left pleural effusion, appears chronic. PLAN: Continue ventilator support on the assist-control mode. Antibiotic therapy. Pancultures. Inhaled bronchodilators. Obtain followup chest x-ray. Monitor lactate level. IV fluids. Gentle hydration. Also, check arterial blood gas. ELLIS CABRERA M.D. [id number]
--- NOTE | 2016-08-18 15:38 | CONSULT ---
Consult Consult Specialty:: Neurology Reason for Consultation:: Altered mental status - History of Present Illness History of Present Illness: 81 year old woman, with a significant past medical history of chronic trach on ventilator, iron deficiency anemia, HTN, hyperlipidemia, COPD, chronic respiratory failure, CHF, cardiac arrest (1998), GERD and upper GI bleed, who presents to the emergency department from [facility] for evaluation with a fever and altered mental status. Patient currently being treated for urosepsis. Neurology consulted for altered mental status. - Past Medical History Cardio/Vascular: Yes: AFIB (Paroxysmal), CHF, HTN, Hyperlipdemia, Other (h/o cardiac arrest s/p AICD) Pulmonary: Yes: COPD, Other (respiratory failure) Gastrointestinal: Yes: GERD ...: No - Past Surgical History Past Surgical History: Yes: AICD (Medtronic implanted 5 years ago?), Cataract Removal (2011) - Alcohol/Substance Use Hx Alcohol Use: No - Smoking History Smoking history: Unknown if ever smoked Have you smoked in the past 12 months: No Aproximately how many cigarettes per day: 0 Home Medications - Allergies Allergies/Adverse Reactions: Allergies Allergy/AdvReac Type Severity Reaction Status Date / Time doxycycline Allergy Intermediate Verified 08/17/16 18:00 CLAMS Allergy Intermediate Hives Uncoded 08/17/16 18:00 - Home Medications Home Medications: Ambulatory Orders Simvastatin [Zocor -] 20 mg PO DAILY 05/24/12 Ascorbate Calcium [Vitamin C] 500 mg PO DAILY 01/20/16 Docusate Sodium 300 mg PO HS 01/20/16 Ferrous Sulfate 325 mg PO BID 01/20/16 Hypromellose 0.5% Opth Soln [Artificial Tears] 1 drop OU BID 01/20/16 Rivaroxaban [Xarelto -] 20 mg PO DAILY 01/20/16 Clonazepam 0.5 mg PO DAILY 04/15/16 Lactose-Reduced Food [Ensure Plus] 237 ml PO BID 04/15/16 Multivitamins [Multivit ([facility] Formulary)] 1 tab PO DAILY 04/15/16 Acetaminophen [Tylenol .Regular Strength -] 650 mg PO Q4H PRN #0 tablet Bacitracin - [Bacitracin Topical Ointment -] 1 applic TP DAILY #1 tube 04/21/16 Cyproheptadine [Periactin -] 4 mg PO Q12H 08/14/16 Ipratropium [place] 0.2 mg IH QID 08/14/16 Loratadine 10 mg PO DAILY 08/14/16 Omeprazole 20 mg PO DAILY 08/14/16 Ranitidine HCl [Zantac] 150 mg PO DAILY 08/14/16 Review of Systems Unable to obtain ROS, reason: due to mental status Physical Exam Vital Signs: Vital Signs Temperature 98.9 F 08/18/16 14:39 Pulse Rate 80 08/18/16 14:39 Respiratory Rate 12 08/18/16 15:08 Blood Pressure 140/80 08/18/16 14:39 O2 Sat by Pulse Oximetry (%) 97 08/18/16 15:08 Constitutional: Yes: No Distress Eyes: Yes: EOM Intact HENT: Yes: Normocephalic Neck: Yes: Other (+trach) Neurological: Yes: Cran Nerves II-XII Intact, Other (knows name) ...Motor Strength: WNL Problem List - Problems (1) Acute and chronic respiratory failure with hypercapnia Code(s): J96.22 - ACUTE AND CHRONIC RESPIRATORY FAILURE WITH HYPERCAPNIA (2) Altered mental status Code(s): R41.82 - ALTERED MENTAL STATUS, UNSPECIFIED Qualifiers: Altered mental status type: unspecified Qualified Code(s): R41.82 - Altered mental status, unspecified Assessment/Plan 81 year old woman, with a significant past medical history of chronic trach on ventilator, iron deficiency anemia, HTN, hyperlipidemia, COPD, chronic respiratory failure, CHF, cardiac arrest (1998), GERD and upper GI bleed, who presents to the emergency department from [facility] for evaluation with a fever and altered mental status. Patient currently being treated for urosepsis. Neurology consulted for altered mental status. Impression Metabolic encephalopathy Recommend CT head to rule out intracranial pathology Treat underlying infection Supportive care
--- NOTE | 2016-08-18 15:57 | CONS ---
DATE OF CONSULTATION: DATE OF DICTATION: 08/18/2016 INFECTIOUS DISEASE CONSULTATION HISTORY OF PRESENT ILLNESS: This is an 89-year-old female who I am asked to see for evaluation of urinary tract infection. She is a resident of [facility] where she is chronically ventilator dependent. She has multiple comorbidities including hypertension, COPD, chronic respiratory failure, cardiac arrest in 1998. In the [facility] she was noted to be febrile with altered mental status. I am asked to see her for further evaluation and treatment. PAST MEDICAL HISTORY: Includes paroxysmal atrial fibrillation, hypertension, CHF, hyperlipidemia, cardiac arrest, COPD, GERD, anemia, Medtronic pacemaker 5 years ago, cataract removal. MEDICATION: Include Zocor, iron, Xarelto, multivitamins, omeprazole, ranitidine. ALLERGIES: DOXYCYCLINE. SOCIAL HISTORY: Former smoker. No history of alcohol abuse. FAMILY HISTORY: Unobtainable. REVIEW OF SYSTEMS: Respiratory: Chronic ventilatory dependency. Cardiac: History of a permanent pacemaker, atrial fibrillation, no chest pain, palpitations, syncope noted. Gastrointestinal: No abdominal pain, vomiting, diarrhea. Genitourinary: No dysuria, hematuria, urinary frequency. PHYSICAL EXAMINATION: General: She was an alert female, in no acute distress. Vital signs: Temperature 99.7, pulse 77, blood pressure 93/51, respirations 18, and O2 mechanically ventilated 97%. Neck: With tracheostomy. Lungs: With bilateral rhonchi. Heart: S1, S2. Regular rhythm without murmur. Abdomen: Soft. Nontender. Without organomegaly. Extremities: Without clubbing, cyanosis, or edema. The white count was 9.4, hemoglobin 11.7, platelets of 205, INR of 1.1. BUN of 36, creatinine 0.9, lactic acid 2.3, and liver enzymes within normal limits. Urinalysis with 3+ leukocyte esterase, 87 RBCs, 1700 WBCs with many yeasts noted. Blood and urine cultures pending. Chest x-ray reviewed shows no acute infiltrate with a small left pleural effusion. ASSESSMENT: Altered mental status in this 81-year-old chronically vented patient with history of prior urinary tract infections noted with sensitive Escherichia coli and klebsiella. At this point will treat her with ceftriaxone already suggested and ordered. Will give her 1 g a day pending blood and urine cultures. TRISTAN VARGAS M.D. [id number]
[2016-08-18] MEDS: BACITRACIN 30 GM TUBE TOPICAL OINTMENT TP SCH (18:56)
[2016-08-18] MEDS: methylPREDNISolone NA SUCC 40 MG/1 ML VIAL IVPB SCH (18:56)
[2016-08-18] MEDS: ATORVASTATIN CA 10 MG TABLET (FP) PO SCH (21:21)
[2016-08-18] MEDS: DOCUSATE SODIUM 100 MG CAPSULE (FP) PO SCH (21:21)
[2016-08-19] MEDS: methylPREDNISolone NA SUCC 40 MG/1 ML VIAL IVPB SCH ×2 (02:00→10:50)
[2016-08-19] MEDS: DEXTROSE 5%-0.45% SALINE 1,000 ML IV SCH ×3 (02:29→17:31)
[2016-08-19 06:49] LABS: ALBUMIN 3.1 g/dl (3.4-5.0); ANION GAP 12 (8-16); CALCIUM 8.2 mg/dL (8.5-10.1); CO2 28 mmol/L (21-32); CREATININE 0.6 mg/dL (0.55-1.02); GLUCOSE,RANDOM 156 mg/dL (74-106); SGOT/AST 17 U/L (15-37); SGPT/ALT 20 U/L (12-78)
[2016-08-19 06:52] LABS: ALK PHOS 93 U/L (45-117); BILIRUBIN,TOTAL 0.3 mg/dL (0.2-1.0); TOT PROT 6.9 g/dl (6.4-8.2); TROPONIN I < 0.02 ng/ml (0.00-0.05)
[2016-08-19 06:54] LABS: BASOPHIL 0.2 % (0-2.0); EOSINOPHIL 0.2 % (0-4.5); MCH 28.3 pg (25.7-33.7); MCHC 32.8 g/dl (32.0-36.0); MEAN CELL VOLUME 86.3 fl (80-96); MEAN PLT VOLUME 9.6 fl (7.5-11.1); NEUTROPHILS 89.4 % (42.8-82.8); PLATELET COUNT 201 K/MM3 (134-434); RDW 14.9 % (11.6-15.6)
[2016-08-19] MEDS: ALBUTEROL SO4 2.5/IPRATROPIUM 0.5 INH SOL 3 ML VIAL.NEB. NEB PRN ×2 (08:27→23:10)
[2016-08-19] MEDS ORDERED: PT OWN MED DRAWER 7, Y5N ONE ×2 (10:20→20:49)
[2016-08-19] MEDS: FERROUS SO4 325 MG TABLET (FP) PO SCH ×2 (10:50→22:36)
[2016-08-19] MEDS: ASCORBIC ACID 500 MG TABLET (FP) PO SCH (10:50)
[2016-08-19] MEDS: RANITIDINE HCL 150 MG TABLET (FP) PO SCH (10:50)
[2016-08-19] MEDS: LORATADINE 10 MG TABLET PO SCH (10:50)
[2016-08-19] MEDS: RIVAROXABAN 20 MG TABLET PO SCH (10:50)
[2016-08-19] MEDS: MULTIVITAMINS (DAILY MVI) TABLET (FP) PO SCH (10:50)
[2016-08-19] MEDS: PANTOPRAZOLE 20 MG TABLET (FP) PO SCH (10:50)
[2016-08-19] MEDS: CEFTRIAXONE 50 ML IVPB SCH (10:51)
[2016-08-19] MEDS: BACITRACIN 30 GM TUBE TOPICAL OINTMENT TP SCH (11:14)
--- NOTE | 2016-08-19 11:18 | CONSULT ---
Consult - text type - Consultation Consultation Note: Renal Consult for Lactic Acidosis This is a 81 year old woman with PMhx of Chronic Respiratory Failure on Vent via Trach, CHF, Cardiac Arrest, GERD, Anemia with Hx of GI bleed presented from [place] with AMS and Fever and found to have urinary tract infection with lactic acidosis and BUN/Cr of 36/0.9 and Na of 146. Pt unable to provide any further history. No chronic indwelling lundberg. Denies any sob, chest pain, abd pain. No N /V reported. Pt started on IVF and IV Abx. PMhx: as above Allergies: NKDA Family Hx: NC Social Hx: No T/A/D ROS: limited to HPI because of clinical status Home Meds: Medication Instructions Recorded Simvastatin [Zocor -] 20 mg PO DAILY 05/24/12 Ascorbate Calcium [Vitamin C] 500 mg PO DAILY 01/20/16 Docusate Sodium 300 mg PO HS 01/20/16 Ferrous Sulfate 325 mg PO BID 01/20/16 Hypromellose 0.5% Opth Soln 1 drop OU BID 01/20/16 [Artificial Tears] Rivaroxaban [Xarelto -] 20 mg PO DAILY 01/20/16 Clonazepam 0.5 mg PO DAILY 04/15/16 Lactose-Reduced Food [Ensure Plus] 237 ml PO BID 04/15/16 Multivitamins [Multivit ([facility] 1 tab PO DAILY 04/15/16 Formulary)] Acetaminophen [Tylenol .Regular 650 mg PO Q4H PRN #0 tablet 04/21/16 Strength -] Bacitracin - [Bacitracin Topical 1 applic TP DAILY #1 tube 04/21/16 Ointment -] Cyproheptadine [Periactin -] 4 mg PO Q12H 08/14/16 Ipratropium [place] 0.2 mg IH QID 08/14/16 Loratadine 10 mg PO DAILY 08/14/16 Omeprazole 20 mg PO DAILY 08/14/16 Ranitidine HCl [Zantac] 150 mg PO DAILY 08/14/16 Vital Signs Temperature 98.3 F 08/19/16 10:00 Pulse Rate 65 08/19/16 10:00 Respiratory Rate 12 08/19/16 10:00 Blood Pressure 91/61 08/19/16 10:00 O2 Sat by Pulse Oximetry (%) 93 L 08/19/16 10:00 Intake & Output 08/16/16 08/17/16 08/18/16 08/19/16 23:59 23:59 23:59 23:59 Intake Total 1280 1160 Balance 1280 1160 Weight 132 lb 106 lb 5 oz 105 lb 8 oz Gen: NAD, awake and alert, on Vent HEENT: NC/AT, Dry MM, trace CVS: RRR, No M/R Lungs: CTA, no rales or wheeze Abd: soft NT/ND Ext: No edema, clubbing or cyanosis : No bladder distension or tenderness Neuro: Awake and alert CBC, BMP 08/19/16 05:20 08/19/16 05:20 Laboratory Tests 08/17/16 08/17/16 08/17/16 20:13 20:13 21:49 Sodium 146 H BUN 36 H Creatinine 0.9 D Lactic Acid 2.317 H* Urine Protein 3+ H Ur Leukocyte Esterase 3+ H Urine WBC 1708 08/18/16 08/19/16 08/19/16 02:53 05:20 05:20 Sodium 140 BUN 29 H Creatinine 0.6 D Lactic Acid 0.903 1.067 Urine Protein Ur Leukocyte Esterase Urine WBC Current Medications Acetaminophen (Tylenol -) 650 mg PO Q6H PRN PRN Reason: HEADACHE/TEMP > 100.6 Albuterol/Ipratropium (Duoneb -) 1 amp NEB Q4H PRN PRN Reason: SHORTNESS OF BREATH Last Admin: 08/19/16 08:27 Dose: 1 amp Artificial Tears (Artificial Tears) 1 drop OU BID PRN PRN Reason: DRY EYES Ascorbic Acid (Vitamin C -) 500 mg PO DAILY [facility] Last Admin: 08/19/16 10:50 Dose: 500 mg Atorvastatin Calcium (Lipitor -) 10 mg PO [facility] Last Admin: 08/18/16 21:21 Dose: 10 mg Bacitracin (Bacitracin -) 1 applic TP DAILY [facility] Last Admin: 08/19/16 11:14 Dose: Not Given Clonazepam (Klonopin -) 0.5 mg PO DAILY PRN PRN Reason: ANXIETY Cyproheptadine HCl (Periactin -) 4 mg PO BID [facility] Last Admin: 08/18/16 22:00 Dose: Not Given Docusate Sodium (Colace -) 300 mg PO [facility] Last Admin: 08/18/16 21:21 Dose: 300 mg Ferrous Sulfate (Feosol -) 325 mg PO BID [facility] Last Admin: 08/19/16 10:50 Dose: 325 mg Dextrose/Sodium Chloride (D5-1/2ns -) 1,000 mls @ 100 mls/hr IV ASDIR [facility] Last Admin: 08/19/16 10:56 Dose: Not Given Ceftriaxone Sodium (Rocephin 1gm Ivpb (Pre-Docked)) 50 mls @ 100 mls/hr IVPB DAILY [facility] Last Admin: 08/19/16 10:51 Dose: 100 mls/hr Loratadine (Claritin -) 10 mg PO DAILY [facility] Last Admin: 08/19/16 10:50 Dose: 10 mg Methylprednisolone Sodium Succinate (Solu-Medrol -) 40 mg IVPB Q8H-IV [facility] Last Admin: 08/19/16 10:50 Dose: 40 mg Multivitamins/Minerals/Vitamin C (Tab-A-Vit -) 1 tab PO DAILY [facility] Last Admin: 08/19/16 10:50 Dose: 1 tab Pantoprazole Sodium (Protonix -) 20 mg PO DAILY [facility] Last Admin: 08/19/16 10:50 Dose: 20 mg Ranitidine HCl (Zantac -) 150 mg PO DAILY [facility] Last Admin: 08/19/16 10:50 Dose: 150 mg Rivaroxaban (Xarelto -) 20 mg PO DAILY [facility] Last Admin: 08/19/16 10:50 Dose: 20 mg Sodium Chloride (Normal Saline -) 500 ml IV Q20M PRN PRN Reason: MAP<65mm Hg OR SBP <90 A/P 81 year old woman with PMhx of Chronic Respiratory Failure on Vent via Trach, CHF, Cardiac Arrest, GERD, Anemia with Hx of GI bleed presented from [place] with AMS and Fever and found to have urinary tract infection with lactic acidosis and BUN/Cr of 36/0.9 and Na of 146. #Lactic acidosis in setting of UTI Improved with IVF Continue isotonic saline for now continue Abx for UTI ID following #Pre-renal azotemia/Hypernatermia Improved with saline continue NS for now Trend daily #Chronic Resp failure continue Vent support pulmonary following #AMS likely secondary to UTI Further work up as per neurology Thank you Cortez Silva DO
--- NOTE | 2016-08-19 11:24 | PN ---
Progress Note, Physician History of Present Illness: IN BED COMFORTABLE - Current Medication List Current Medications: Active Medications Acetaminophen (Tylenol -) 650 mg PO Q6H PRN PRN Reason: HEADACHE/TEMP > 100.6 Albuterol/Ipratropium (Duoneb -) 1 amp NEB Q4H PRN PRN Reason: SHORTNESS OF BREATH Last Admin: 08/19/16 08:27 Dose: 1 amp Artificial Tears (Artificial Tears) 1 drop OU BID PRN PRN Reason: DRY EYES Ascorbic Acid (Vitamin C -) 500 mg PO DAILY [facility] Last Admin: 08/19/16 10:50 Dose: 500 mg Atorvastatin Calcium (Lipitor -) 10 mg PO HS [facility] Last Admin: 08/18/16 21:21 Dose: 10 mg Bacitracin (Bacitracin -) 1 applic TP DAILY [facility] Last Admin: 08/19/16 11:14 Dose: Not Given Clonazepam (Klonopin -) 0.5 mg PO DAILY PRN PRN Reason: ANXIETY Cyproheptadine HCl (Periactin -) 4 mg PO BID [facility] Last Admin: 08/18/16 22:00 Dose: Not Given Docusate Sodium (Colace -) 300 mg PO HS [facility] Last Admin: 08/18/16 21:21 Dose: 300 mg Ferrous Sulfate (Feosol -) 325 mg PO BID [facility] Last Admin: 08/19/16 10:50 Dose: 325 mg Dextrose/Sodium Chloride (D5-1/2ns -) 1,000 mls @ 100 mls/hr IV ASDIR [facility] Last Admin: 08/19/16 10:56 Dose: Not Given Ceftriaxone Sodium (Rocephin 1gm Ivpb (Pre-Docked)) 50 mls @ 100 mls/hr IVPB DAILY [facility] Last Admin: 08/19/16 10:51 Dose: 100 mls/hr Loratadine (Claritin -) 10 mg PO DAILY [facility] Last Admin: 08/19/16 10:50 Dose: 10 mg Methylprednisolone Sodium Succinate (Solu-Medrol -) 40 mg IVPB Q8H-IV [facility] Last Admin: 08/19/16 10:50 Dose: 40 mg Multivitamins/Minerals/Vitamin C (Tab-A-Vit -) 1 tab PO DAILY [facility] Last Admin: 08/19/16 10:50 Dose: 1 tab Pantoprazole Sodium (Protonix -) 20 mg PO DAILY [facility] Last Admin: 08/19/16 10:50 Dose: 20 mg Ranitidine HCl (Zantac -) 150 mg PO DAILY [facility] Last Admin: 08/19/16 10:50 Dose: 150 mg Rivaroxaban (Xarelto -) 20 mg PO DAILY [facility] Last Admin: 08/19/16 10:50 Dose: 20 mg Sodium Chloride (Normal Saline -) 500 ml IV Q20M PRN PRN Reason: MAP<65mm Hg OR SBP <90 - Objective Vital Signs: Vital Signs Temperature 98.3 F 08/19/16 10:00 Pulse Rate 65 08/19/16 10:00 Respiratory Rate 12 08/19/16 10:00 Blood Pressure 91/61 08/19/16 10:00 O2 Sat by Pulse Oximetry (%) 93 L 08/19/16 10:00 Cardiovascular: Yes: Pulse Irregular, S1, S2 Respiratory: Yes: Other (ON OXYGEN) Gastrointestinal: Yes: Normal Bowel Sounds, Soft Labs: CBC, BMP 08/19/16 05:20 08/19/16 05:20 INR, PTT INR 1.14 (0.82-1.09) 08/17/16 20:13 Assessment/Plan Problems (1) UTI (urinary tract infection) Assessment/Plan: urine c/s Rocephin Code(s): N39.0 - URINARY TRACT INFECTION, SITE NOT SPECIFIED Qualifiers: Urinary tract infection type: site unspecified Hematuria presence: without hematuria Qualified Code(s): N39.0 - Urinary tract infection, site not specified (2) Chronic respiratory failure Assessment/Plan: vent Code(s): J96.10 - CHRONIC RESPIRATORY FAILURE, UNSP W HYPOXIA OR HYPERCAPNIA Qualifiers: Respiratory failure complication: hypercapnia Qualified Code(s): J96.12 - Chronic respiratory failure with hypercapnia (3) PAF (paroxysmal atrial fibrillation) Assessment/Plan: xarelto Code(s): I48.0 - PAROXYSMAL ATRIAL FIBRILLATION (4) COPD (chronic obstructive pulmonary disease) Assessment/Plan: steroids bronchodilators pulm eval ppi Code(s): J44.9 - CHRONIC OBSTRUCTIVE PULMONARY DISEASE, UNSPECIFIED (5) Pleural effusion Assessment/Plan: pulm eval Code(s): J90 - PLEURAL EFFUSION, NOT ELSEWHERE CLASSIFIED
--- NOTE | 2016-08-19 11:48 | PN ---
Progress Note (short form) - Note Progress Note: PULMONARY WELL KNOWN BY OUR SERVICE VSS/AFEBRILE APPEARS IMPROVED ANICTERIC/TRACH DISTANT B/L BREATH SOUNDS S1S2 BS+ NO EDEMA LABS/CULTURES/IMAGING/MEDS/NOTES REVIEWED UTI/FEVER ACUTE ON CHRONIC HYPOXEMIC/HYPERCAPNEIC RESPIRATORY FAILURE CHRONIC VENT DEPENDENT COPD ALTERED MENTAL STATUS DUE TO INFECTION LIKELY UROSEPSIS PAF CHF ASHD S/P AICD H/O CARDIAC ARREST AZOTEMIA CHRONIC LEFT PLEURAL EFFUSION HTN ELEVATED LACTATE LEVEL PLAN VENT SUPPORT ON AC MODE ANTIBIOTICS STEROIDS TO BE DISCONTINUED CHECK CULTURES INHALED BRONCHODILATORS IVF TREND LACTATE MONITOR LYTES,CBC ANTICOAGULATION Brandi FLOREZ MD
--- NOTE | 2016-08-19 12:03 | PN ---
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 Patient currently being treated for urosepsis. Neurology consulted for altered mental status. - Past Medical History Cardio/Vascular: Yes: AFIB (Paroxysmal), CHF, HTN, Hyperlipdemia, Other (h/o cardiac arrest s/p AICD) Pulmonary: Yes: COPD, Other (respiratory failure) Gastrointestinal: Yes: GERD ...: No - Past Surgical History Past Surgical History: Yes: AICD ([employer] implanted 5 years ago?), Cataract Removal (2011) - Alcohol/Substance Use Hx Alcohol Use: No - Smoking History Smoking history: Unknown if ever smoked Have you smoked in the past 12 months: No Aproximately how many cigarettes per day: 0 Home Medications - Allergies Allergies/Adverse Reactions: Allergies Allergy/AdvReac Type Severity Reaction Status Date / Time doxycycline Allergy Intermediate Verified 08/17/16 18:00 [facility] Allergy Intermediate Hives Uncoded 08/17/16 18:00 - Home Medications Home Medications: Ambulatory Orders Simvastatin [Zocor -] 20 mg PO DAILY 05/24/12 Ascorbate Calcium [Vitamin C] 500 mg PO DAILY 01/20/16 Docusate Sodium 300 mg PO HS 01/20/16 Ferrous Sulfate 325 mg PO BID 01/20/16 Hypromellose 0.5% Opth Soln [Artificial Tears] 1 drop OU BID 01/20/16 Rivaroxaban [Xarelto -] 20 mg PO DAILY 01/20/16 Clonazepam 0.5 mg PO DAILY 04/15/16 Lactose-Reduced Food [Ensure Plus] 237 ml PO BID 04/15/16 Multivitamins [Multivit ([facility] Formulary)] 1 tab PO DAILY 04/15/16 Acetaminophen [Tylenol .Regular Strength -] 650 mg PO Q4H PRN #0 tablet Bacitracin - [Bacitracin Topical Ointment -] 1 applic TP DAILY #1 tube 04/21/16 Cyproheptadine [Periactin -] 4 mg PO Q12H 08/14/16 Ipratropium [place] 0.2 mg IH QID 08/14/16 Loratadine 10 mg PO DAILY 08/14/16 Omeprazole 20 mg PO DAILY 08/14/16 Ranitidine HCl [Zantac] 150 mg PO DAILY 08/14/16 Review of Systems Unable to obtain ROS, reason: due to mental status Physical Exam Constitutional: Yes: No Distress Eyes: Yes: EOM Intact HENT: Yes: Normocephalic Neck: Yes: Other (+trach) Neurological: Yes: Cran Nerves II-XII Intact, Other (awake, alert, following commands, able to whisper name, age, unclear on month) ...Motor Strength: WNL Problem List - Problems (1) Acute and chronic respiratory failure with hypercapnia Code(s): J96.22 - ACUTE AND CHRONIC RESPIRATORY FAILURE WITH HYPERCAPNIA (2) Altered mental status Code(s): R41.82 - ALTERED MENTAL STATUS, UNSPECIFIED Qualifiers: Altered mental status type: unspecified Qualified Code(s): R41.82 - Altered mental status, unspecified Assessment/Plan 81 year old woman, with a significant past medical history of 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 Patient currently being treated for urosepsis. Neurology consulted for altered mental status. Impression Metabolic encephalopathy Mental status has appeared to have improved If any deterioration in mental status, recommend CT head without contrast Treat underlying infection Please call with any further questions Problem List - Problems (1) Acute and chronic respiratory failure with hypercapnia Code(s): J96.22 - ACUTE AND CHRONIC RESPIRATORY FAILURE WITH HYPERCAPNIA (2) Altered mental status Code(s): R41.82 - ALTERED MENTAL STATUS, UNSPECIFIED Qualifiers: Altered mental status type: unspecified Qualified Code(s): R41.82 - Altered mental status, unspecified
[2016-08-19 12:52] LABS: TROPONIN I < 0.02 ng/ml (0.00-0.05)
[2016-08-19] MEDS: CYPROHEPTADINE HCL 4 MG TABLET PO SCH ×2 (13:58→22:36)
[2016-08-19] MEDS: DOCUSATE SODIUM 100 MG CAPSULE (FP) PO SCH (22:35)
[2016-08-19] MEDS: ATORVASTATIN CA 10 MG TABLET (FP) PO SCH (22:36)
[2016-08-20] MEDS: ALBUTEROL SO4 2.5/IPRATROPIUM 0.5 INH SOL 3 ML VIAL.NEB. NEB PRN ×3 (06:52→17:59)
[2016-08-20 07:47] LABS: CALCIUM 8.2 mg/dL (8.5-10.1); CREATININE 0.6 mg/dL (0.55-1.02)
[2016-08-20] MEDS: DEXTROSE 5%-0.45% SALINE 1,000 ML IV SCH ×2 (09:17→14:37)
[2016-08-20] MEDS ORDERED: PT OWN MED DRAWER 7, Y5N ONE ×2 (09:23→21:06)
[2016-08-20] MEDS: BACITRACIN 30 GM TUBE TOPICAL OINTMENT TP SCH (09:32)
[2016-08-20] MEDS: FERROUS SO4 325 MG TABLET (FP) PO SCH ×2 (09:33→22:16)
[2016-08-20] MEDS: MULTIVITAMINS (DAILY MVI) TABLET (FP) PO SCH (09:33)
[2016-08-20] MEDS: CEFTRIAXONE 50 ML IVPB SCH (09:33)
[2016-08-20] MEDS: RIVAROXABAN 20 MG TABLET PO SCH (09:33)
[2016-08-20] MEDS: PANTOPRAZOLE 20 MG TABLET (FP) PO SCH (09:33)
[2016-08-20] MEDS: ASCORBIC ACID 500 MG TABLET (FP) PO SCH (09:33)
[2016-08-20] MEDS: LORATADINE 10 MG TABLET PO SCH (09:33)
[2016-08-20] MEDS: RANITIDINE HCL 150 MG TABLET (FP) PO SCH (09:33)
[2016-08-20] MEDS: CYPROHEPTADINE HCL 4 MG TABLET PO SCH ×2 (09:33→22:17)
--- NOTE | 2016-08-20 09:36 | EKG ---
Test Reason : Blood Pressure : / mmHG Vent. Rate : 074 BPM Atrial Rate : 074 BPM P-R Int : 150 ms QRS Dur : 080 ms QT Int : 410 ms P-R-T Axes : 084 -20 038 degrees QTc Int : 455 ms NORMAL SINUS RHYTHM SEPTAL INFARCT (CITED ON OR BEFORE 15-APR-2016) ABNORMAL ECG WHEN COMPARED WITH ECG OF 17-AUG-2016 21:04, SINUS RHYTHM HAS REPLACED ECTOPIC ATRIAL RHYTHM QT HAS LENGTHENED Confirmed by JAXON BARTON MD ([id number]) on 08/20/2016 9:35:30 AM Referred By: Anali RUSSO Confirmed By:JAXON BARTON MD
--- NOTE | 2016-08-20 12:21 | PN ---
Progress Note, Physician History of Present Illness: IN BED COMFORTABLE - Current Medication List Current Medications: Active Medications Acetaminophen (Tylenol -) 650 mg PO Q6H PRN PRN Reason: HEADACHE/TEMP > 100.6 Albuterol/Ipratropium (Duoneb -) 1 amp NEB Q4H PRN PRN Reason: SHORTNESS OF BREATH Last Admin: 08/20/16 10:00 Dose: 1 amp Artificial Tears (Artificial Tears) 1 drop OU BID PRN PRN Reason: DRY EYES Last Admin: 08/20/16 09:34 Dose: 1 drop Ascorbic Acid (Vitamin C -) 500 mg PO DAILY [facility] Last Admin: 08/20/16 09:33 Dose: 500 mg Atorvastatin Calcium (Lipitor -) 10 mg PO HS [facility] Last Admin: 08/19/16 22:36 Dose: 10 mg Clonazepam (Klonopin -) 0.5 mg PO DAILY PRN PRN Reason: ANXIETY Last Admin: 08/20/16 09:33 Dose: 0.5 mg Cyproheptadine HCl (Periactin -) 4 mg PO BID [facility] Last Admin: 08/20/16 09:33 Dose: 4 mg Docusate Sodium (Colace -) 300 mg PO HS [facility] Last Admin: 08/19/16 22:35 Dose: 300 mg Ferrous Sulfate (Feosol -) 325 mg PO BID [facility] Last Admin: 08/20/16 09:33 Dose: 325 mg Dextrose/Sodium Chloride (D5-1/2ns -) 1,000 mls @ 100 mls/hr IV ASDIR [facility] Last Admin: 08/20/16 09:17 Dose: Not Given Ceftriaxone Sodium (Rocephin 1gm Ivpb (Pre-Docked)) 50 mls @ 100 mls/hr IVPB DAILY [facility] Last Admin: 08/20/16 09:33 Dose: 100 mls/hr Loratadine (Claritin -) 10 mg PO DAILY [facility] Last Admin: 08/20/16 09:33 Dose: 10 mg Multivitamins/Minerals/Vitamin C (Tab-A-Vit -) 1 tab PO DAILY [facility] Last Admin: 08/20/16 09:33 Dose: 1 tab Pantoprazole Sodium (Protonix -) 20 mg PO DAILY [facility] Last Admin: 08/20/16 09:33 Dose: 20 mg Ranitidine HCl (Zantac -) 150 mg PO DAILY [facility] Last Admin: 08/20/16 09:33 Dose: 150 mg Rivaroxaban (Xarelto -) 20 mg PO DAILY [facility] Last Admin: 08/20/16 09:33 Dose: 20 mg Sodium Chloride (Normal Saline -) 500 ml IV Q20M PRN PRN Reason: MAP<65mm Hg OR SBP <90 - Objective Vital Signs: Vital Signs Temperature 98.6 F 08/20/16 09:00 Pulse Rate 80 08/20/16 10:00 Respiratory Rate 32 H 08/20/16 11:20 Blood Pressure 179/96 08/20/16 09:00 O2 Sat by Pulse Oximetry (%) 94 L 08/20/16 11:20 Cardiovascular: Yes: S1, S2 Respiratory: Yes: Mechanically Ventilated Gastrointestinal: Yes: Normal Bowel Sounds, Soft Labs: CBC, BMP 08/19/16 05:20 08/20/16 05:45 INR, PTT INR 1.14 (0.82-1.09) 08/17/16 20:13 Assessment/Plan Problems (1) UTI (urinary tract infection) Assessment/Plan: urine c/s Microbiology 08/17/16 21:49 Urine Culture - Final Urine - Urine - Catheterized Morganella Morganii 08/17/16 20:13 Blood Culture - Preliminary Blood - Peripheral Venous NO GROWTH OBTAINED AFTER 48 HOURS, INCUBATION TO CONTINUE FOR 3 DAYS. 08/17/16 20:13 Blood Culture - Preliminary Blood - Peripheral Venous NO GROWTH OBTAINED AFTER 48 HOURS, INCUBATION TO CONTINUE FOR 3 DAYS. RESISTANT TO Rocephin --ID F/U Code(s): N39.0 - URINARY TRACT INFECTION, SITE NOT SPECIFIED Qualifiers: Urinary tract infection type: site unspecified Hematuria presence: without hematuria Qualified Code(s): N39.0 - Urinary tract infection, site not specified (2) Chronic respiratory failure Assessment/Plan: vent Code(s): J96.10 - CHRONIC RESPIRATORY FAILURE, UNSP W HYPOXIA OR HYPERCAPNIA Qualifiers: Respiratory failure complication: hypercapnia Qualified Code(s): J96.12 - Chronic respiratory failure with hypercapnia (3) PAF (paroxysmal atrial fibrillation) Assessment/Plan: xarelto Code(s): I48.0 - PAROXYSMAL ATRIAL FIBRILLATION (4) COPD (chronic obstructive pulmonary disease) Assessment/Plan: bronchodilators pulm eval noted ppi Code(s): J44.9 - CHRONIC OBSTRUCTIVE PULMONARY DISEASE, UNSPECIFIED (5) Pleural effusion Assessment/Plan: pulm following Code(s): J90 - PLEURAL EFFUSION, NOT ELSEWHERE CLASSIFIED
--- NOTE | 2016-08-20 12:28 | PN ---
Progress Note (short form) - Note Progress Note: she is awake and alert family at bedside reports back at baseline mental status Vital Signs Period Temp Pulse Resp BP Sys/Vera Pulse Ox Last 24 Hr 98.2 F-98.6 F 64-98 12-32 104-179/47-96 92-98 trach to vent cor-rrr lungs clear abd soft,nt ext no edema no lundberg CBC, BMP 08/19/16 05:20 08/20/16 05:45 Microbiology 08/17/16 21:49 Urine - Urine - Catheterized Urine Culture - Final Morganella Morganii 08/17/16 20:13 Blood - Peripheral Venous Blood Culture - Preliminary NO GROWTH OBTAINED AFTER 48 HOURS, INCUBATION TO CONTINUE FOR 3 DAYS. 08/17/16 20:13 Blood - Peripheral Venous Blood Culture - Preliminary NO GROWTH OBTAINED AFTER 48 HOURS, INCUBATION TO CONTINUE FOR 3 DAYS. a/p uti- switch to ertapenem change in mental status resolved chronic respiratory failure
[2016-08-20] MEDS ORDERED: POTASSIUM CHLORIDE 40 MEQ/30 ML UNIT DOSE CUP PO ONE (12:30)
[2016-08-20] MEDS: ERTAPENEM SODIUM 1 GM in SODIUM CHLORIDE 50 ML IVPB SCH (14:31)
[2016-08-20] MEDS: DOCUSATE SODIUM 100 MG CAPSULE (FP) PO SCH (22:14)
[2016-08-20] MEDS: ATORVASTATIN CA 10 MG TABLET (FP) PO SCH (22:14)
[2016-08-21] MEDS: ALBUTEROL SO4 2.5/IPRATROPIUM 0.5 INH SOL 3 ML VIAL.NEB. NEB PRN (02:13)
[2016-08-21] MEDS ORDERED: methylPREDNISolone NA SUCC 125 MG/2 ML VIAL IVPB ONE (02:15)
[2016-08-21] MEDS: DEXTROSE 5%-0.45% SALINE 1,000 ML IV SCH ×2 (02:18→02:25)
[2016-08-21 07:56] LABS: BASOPHIL 0.2 % (0-2.0); EOSINOPHIL 0.9 % (0-4.5); MCHC 33.4 g/dl (32.0-36.0); MEAN CELL VOLUME 86.7 fl (80-96); MEAN PLT VOLUME 8.3 fl (7.5-11.1); NEUTROPHILS 93.5 % (42.8-82.8); PLATELET COUNT 253 K/MM3 (134-434); RDW 14.6 % (11.6-15.6); WHITE BLOOD COUNT 8.8 K/mm3 (4.0-10.0)
--- NOTE | 2016-08-21 08:16 | PN ---
Progress Note, Physician History of Present Illness: IN BED COMFORTABLE - Current Medication List Current Medications: Active Medications Acetaminophen (Tylenol -) 650 mg PO Q6H PRN PRN Reason: HEADACHE/TEMP > 100.6 Albuterol/Ipratropium (Duoneb -) 1 amp NEB Q4H PRN PRN Reason: SHORTNESS OF BREATH Last Admin: 08/21/16 02:13 Dose: 1 amp Artificial Tears (Artificial Tears) 1 drop OU BID PRN PRN Reason: DRY EYES Last Admin: 08/20/16 09:34 Dose: 1 drop Ascorbic Acid (Vitamin C -) 500 mg PO DAILY [facility] Last Admin: 08/20/16 09:33 Dose: 500 mg Atorvastatin Calcium (Lipitor -) 10 mg PO HS [facility] Last Admin: 08/20/16 22:14 Dose: 10 mg Clonazepam (Klonopin -) 0.5 mg PO DAILY PRN PRN Reason: ANXIETY Last Admin: 08/20/16 09:33 Dose: 0.5 mg Cyproheptadine HCl (Periactin -) 4 mg PO BID [facility] Last Admin: 08/20/16 22:17 Dose: 4 mg Docusate Sodium (Colace -) 300 mg PO HS [facility] Last Admin: 08/20/16 22:14 Dose: 300 mg Ferrous Sulfate (Feosol -) 325 mg PO BID [facility] Last Admin: 08/20/16 22:16 Dose: 325 mg Dextrose/Sodium Chloride (D5-1/2ns -) 1,000 mls @ 100 mls/hr IV ASDIR [facility] Last Admin: 08/21/16 02:25 Dose: Not Given Ertapenem 1 gm/ Sodium (Chloride) 50 mls @ 100 mls/hr IVPB DAILY [facility] Last Admin: 08/20/16 14:31 Dose: 100 mls/hr Loratadine (Claritin -) 10 mg PO DAILY [facility] Last Admin: 08/20/16 09:33 Dose: 10 mg Multivitamins/Minerals/Vitamin C (Tab-A-Vit -) 1 tab PO DAILY [facility] Last Admin: 08/20/16 09:33 Dose: 1 tab Pantoprazole Sodium (Protonix -) 20 mg PO DAILY [facility] Last Admin: 08/20/16 09:33 Dose: 20 mg Ranitidine HCl (Zantac -) 150 mg PO DAILY [facility] Last Admin: 08/20/16 09:33 Dose: 150 mg Rivaroxaban (Xarelto -) 20 mg PO DAILY [facility] Last Admin: 08/20/16 09:33 Dose: 20 mg Sodium Chloride (Normal Saline -) 500 ml IV Q20M PRN PRN Reason: MAP<65mm Hg OR SBP <90 - Objective Vital Signs: Vital Signs Temperature 98.7 F 08/21/16 06:00 Pulse Rate 88 08/21/16 06:00 Respiratory Rate 13 08/21/16 06:25 Blood Pressure 130/69 08/21/16 06:00 O2 Sat by Pulse Oximetry (%) 98 08/20/16 22:00 Cardiovascular: Yes: S1, S2 Respiratory: Yes: Mechanically Ventilated Gastrointestinal: Yes: Normal Bowel Sounds, Soft Labs: CBC, BMP 08/21/16 07:25 INR, PTT INR 1.14 (0.82-1.09) 08/17/16 20:13 Assessment/Plan Problems (1) UTI (urinary tract infection) Assessment/Plan: urine c/s Microbiology 08/17/16 21:49 Urine Culture - Final Urine - Urine - Catheterized Morganella Morganii 08/17/16 20:13 Blood Culture - Preliminary Blood - Peripheral Venous NO GROWTH OBTAINED AFTER 48 HOURS, INCUBATION TO CONTINUE FOR 3 DAYS. 08/17/16 20:13 Blood Culture - Preliminary Blood - Peripheral Venous NO GROWTH OBTAINED AFTER 48 HOURS, INCUBATION TO CONTINUE FOR 3 DAYS. RESISTANT TO Rocephin --ID F/U---ON ertapenem Code(s): N39.0 - URINARY TRACT INFECTION, SITE NOT SPECIFIED Qualifiers: Urinary tract infection type: site unspecified Hematuria presence: without hematuria Qualified Code(s): N39.0 - Urinary tract infection, site not specified (2) Chronic respiratory failure Assessment/Plan: vent NEBS REQUIRED STEROIDS LAST NIGHT ---WILL START PREDNISONE 20--PULM F/U Code(s): J96.10 - CHRONIC RESPIRATORY FAILURE, UNSP W HYPOXIA OR HYPERCAPNIA Qualifiers: Respiratory failure complication: hypercapnia Qualified Code(s): J96.12 - Chronic respiratory failure with hypercapnia (3) PAF (paroxysmal atrial fibrillation) Assessment/Plan: xarelto Code(s): I48.0 - PAROXYSMAL ATRIAL FIBRILLATION (4) COPD (chronic obstructive pulmonary disease) Assessment/Plan: bronchodilators pulm eval noted ppi REQUIRED STEROIDS LAST NIGHT ---WILL START PREDNISONE 20--PULM F/U Code(s): J44.9 - CHRONIC OBSTRUCTIVE PULMONARY DISEASE, UNSPECIFIED (5) Pleural effusion Assessment/Plan: pulm following Code(s): J90 - PLEURAL EFFUSION, NOT ELSEWHERE CLASSIFIED
[2016-08-21 08:54] LABS: ALBUMIN 3.3 g/dl (3.4-5.0); ALK PHOS 76 U/L (45-117); ANION GAP 11 (8-16); BILIRUBIN,TOTAL 0.4 mg/dL (0.2-1.0); CALCIUM 8.6 mg/dL (8.5-10.1); CO2 30 mmol/L (21-32); CREATININE 0.6 mg/dL (0.55-1.02); GLUCOSE,RANDOM 129 mg/dL (74-106); SGOT/AST 14 U/L (15-37); SGPT/ALT 19 U/L (12-78); TOT PROT 6.6 g/dl (6.4-8.2)
[2016-08-21] MEDS ORDERED: clonazePAM 0.5 MG TABLET PO PRN (10:08)
[2016-08-21] MEDS ORDERED: PT OWN MED DRAWER 7, Y5N ONE ×2 (10:11→21:22)
[2016-08-21] MEDS: FERROUS SO4 325 MG TABLET (FP) PO SCH ×2 (10:16→22:15)
[2016-08-21] MEDS: LORATADINE 10 MG TABLET PO SCH (10:16)
[2016-08-21] MEDS: RANITIDINE HCL 150 MG TABLET (FP) PO SCH (10:16)
[2016-08-21] MEDS: PANTOPRAZOLE 20 MG TABLET (FP) PO SCH (10:16)
[2016-08-21] MEDS: MULTIVITAMINS (DAILY MVI) TABLET (FP) PO SCH (10:16)
[2016-08-21] MEDS: ASCORBIC ACID 500 MG TABLET (FP) PO SCH (10:16)
[2016-08-21] MEDS: RIVAROXABAN 20 MG TABLET PO SCH (10:16)
[2016-08-21] MEDS: ERTAPENEM SODIUM 1 GM in SODIUM CHLORIDE 50 ML IVPB SCH (10:17)
[2016-08-21] MEDS: CYPROHEPTADINE HCL 4 MG TABLET PO SCH ×2 (10:17→22:20)
--- NOTE | 2016-08-21 10:55 | PN ---
Progress Note (short form) - Note Progress Note: ID Antibiotic changed to Ertepenem day 1 AfASsessmetebrile NAD Microbiology 04/15/16 00:50 Urine - Urine - Catheterized Urine Culture - Final Escherichia Coli Klebsiella Pneumoniae Selected Entries 08/21/16 08/21/16 09:00 09:57 Temperature 98.8 F Pulse Rate 88 Respiratory 14 Rate Blood Pressure 168/94 Laboratory Tests 08/17/16 08/17/16 08/17/16 20:13 20:13 20:13 WBC 9.4 Hgb 11.7 Plt Count 205 D BUN 36 H Lactic Acid 2.317 H* Ur Leukocyte Esterase Urine RBC Urine WBC 08/17/16 21:49 WBC Hgb Plt Count BUN Lactic Acid Ur Leukocyte Esterase 3+ H Urine RBC 87 Urine WBC 1708 Assessment URinary tract infection Asymptomatic currently switch to Ertepenem Plan Today and tomorrow should be sufficient so could be discharged tomorrow Alfred GOMEZ Problem List - Problems (1) COPD (chronic obstructive pulmonary disease) Code(s): J44.9 - CHRONIC OBSTRUCTIVE PULMONARY DISEASE, UNSPECIFIED (2) UTI (urinary tract infection) Code(s): N39.0 - URINARY TRACT INFECTION, SITE NOT SPECIFIED Qualifiers: Urinary tract infection type: site unspecified Hematuria presence: without hematuria Qualified Code(s): N39.0 - Urinary tract infection, site not specified
--- NOTE | 2016-08-21 11:54 | PN ---
Progress Note (short form) - Note Progress Note: NAD on AC MOde of vent. No acute events overnight. Intake & Output 08/18/16 08/19/16 08/20/16 08/21/16 23:59 23:59 23:59 23:59 Intake Total 1280 2520 3210 1350 Balance 1280 2520 3210 1350 Weight 106 lb 5 oz 105 lb 8 oz Last Vital Signs Temp Pulse Resp BP Pulse Ox 98.8 F 88 14 168/94 98 08/21/16 09:00 08/21/16 09:57 08/21/16 09:57 08/21/16 09:00 08/21/16 09:57 Active Medications Acetaminophen (Tylenol -) 650 mg PO Q6H PRN PRN Reason: HEADACHE/TEMP > 100.6 Albuterol/Ipratropium (Duoneb -) 1 amp NEB Q4H PRN PRN Reason: SHORTNESS OF BREATH Last Admin: 08/21/16 02:13 Dose: 1 amp Artificial Tears (Artificial Tears) 1 drop OU BID PRN PRN Reason: DRY EYES Last Admin: 08/20/16 09:34 Dose: 1 drop Ascorbic Acid (Vitamin C -) 500 mg PO DAILY [facility] Last Admin: 08/21/16 10:16 Dose: 500 mg Atorvastatin Calcium (Lipitor -) 10 mg PO [facility] Last Admin: 08/20/16 22:14 Dose: 10 mg Clonazepam (Klonopin -) 0.5 mg PO BID PRN PRN Reason: ANXIETY Cyproheptadine HCl (Periactin -) 4 mg PO BID [facility] Last Admin: 08/21/16 10:17 Dose: 4 mg Docusate Sodium (Colace -) 300 mg PO HS [facility] Last Admin: 08/20/16 22:14 Dose: 300 mg Ferrous Sulfate (Feosol -) 325 mg PO BID [facility] Last Admin: 08/21/16 10:16 Dose: 325 mg Ertapenem 1 gm/ Sodium (Chloride) 50 mls @ 100 mls/hr IVPB DAILY [facility] Last Admin: 08/21/16 10:17 Dose: 100 mls/hr Loratadine (Claritin -) 10 mg PO DAILY [facility] Last Admin: 08/21/16 10:16 Dose: 10 mg Multivitamins/Minerals/Vitamin C (Tab-A-Vit -) 1 tab PO DAILY [facility] Last Admin: 08/21/16 10:16 Dose: 1 tab Pantoprazole Sodium (Protonix -) 20 mg PO DAILY [facility] Last Admin: 08/21/16 10:16 Dose: 20 mg Prednisone (Deltasone -) 20 mg PO DAILY [facility] Ranitidine HCl (Zantac -) 150 mg PO DAILY [facility] Last Admin: 08/21/16 10:16 Dose: 150 mg Rivaroxaban (Xarelto -) 20 mg PO DAILY [facility] Last Admin: 08/21/16 10:16 Dose: 20 mg Sodium Chloride (Normal Saline -) 500 ml IV Q20M PRN PRN Reason: MAP<65mm Hg OR SBP <90 Cardiovascular: Yes: S1, S2 Respiratory: Yes: Mechanically Ventilated, bibasilar rhonchi Gastrointestinal: Yes: Normal Bowel Sounds, Soft Labs: Assessment/Plan Problems (1) UTI (urinary tract infection) Assessment/Plan: Code(s): N39.0 - URINARY TRACT INFECTION, SITE NOT SPECIFIED Qualifiers: Urinary tract infection type: site unspecified Hematuria presence: without hematuria Qualified Code(s): N39.0 - Urinary tract infection, site not specified (2) Chronic respiratory failure Assessment/Plan: Code(s): J96.10 - CHRONIC RESPIRATORY FAILURE, UNSP W HYPOXIA OR HYPERCAPNIA Qualifiers: Respiratory failure complication: hypercapnia Qualified Code(s): J96.12 - Chronic respiratory failure with hypercapnia (3) PAF (paroxysmal atrial fibrillation) Assessment/Plan: Code(s): I48.0 - PAROXYSMAL ATRIAL FIBRILLATION (4) COPD (chronic obstructive pulmonary disease) Assessment/Plan: Code(s): J44.9 - CHRONIC OBSTRUCTIVE PULMONARY DISEASE, UNSPECIFIED (5) Pleural effusion Assessment/Plan: Code(s): J90 - PLEURAL EFFUSION, NOT ELSEWHERE CLASSIFIED PLAN: AC Mode of vent May need Lasix id effusions worsen ABX Per ID BD TX Will follow Dr Medina
[2016-08-21] MEDS: predniSONE 20 MG TABLET (UD) PO SCH (12:24)
[2016-08-21] MEDS ORDERED: amLODIPine BESYLATE 5 MG TABLET (FP) PO ONE (18:30)
--- NOTE | 2016-08-21 18:35 | PN ---
Progress Note (short form) - Note Progress Note: Renal follow up for lactic acidosis Pt seen and examined at the bedside No overnight events stable on vent Vital Signs Temperature 98.2 F 08/21/16 15:17 Pulse Rate 102 H 08/21/16 15:17 Respiratory Rate 13 08/21/16 18:10 Blood Pressure 165/93 08/21/16 15:17 O2 Sat by Pulse Oximetry (%) 98 08/21/16 09:57 Intake & Output 08/18/16 08/19/16 08/20/16 08/21/16 23:59 23:59 23:59 23:59 Intake Total 1280 2520 3210 1590 Balance 1280 2520 3210 1590 Weight 106 lb 5 oz 105 lb 8 oz Gen: NAD, awake and alert, on Vent CVS: RRR, No M/R Lungs: Dec BS at the lung bases Abd: soft NT/ND Ext: No edema, clubbing or cyanosis CBC, BMP 08/21/16 07:25 08/21/16 07:25 Current Medications Acetaminophen (Tylenol -) 650 mg PO Q6H PRN PRN Reason: HEADACHE/TEMP > 100.6 Albuterol/Ipratropium (Duoneb -) 1 amp NEB Q4H PRN PRN Reason: SHORTNESS OF BREATH Last Admin: 08/21/16 02:13 Dose: 1 amp Artificial Tears (Artificial Tears) 1 drop OU BID PRN PRN Reason: DRY EYES Last Admin: 08/20/16 09:34 Dose: 1 drop Ascorbic Acid (Vitamin C -) 500 mg PO DAILY [facility] Last Admin: 08/21/16 10:16 Dose: 500 mg Atorvastatin Calcium (Lipitor -) 10 mg PO HS [facility] Last Admin: 08/20/16 22:14 Dose: 10 mg Clonazepam (Klonopin -) 0.5 mg PO BID PRN PRN Reason: ANXIETY Cyproheptadine HCl (Periactin -) 4 mg PO BID [facility] Last Admin: 08/21/16 10:17 Dose: 4 mg Docusate Sodium (Colace -) 300 mg PO HS [facility] Last Admin: 08/20/16 22:14 Dose: 300 mg Ferrous Sulfate (Feosol -) 325 mg PO BID [facility] Last Admin: 08/21/16 10:16 Dose: 325 mg Ertapenem 1 gm/ Sodium (Chloride) 50 mls @ 100 mls/hr IVPB DAILY [facility] Last Admin: 08/21/16 10:17 Dose: 100 mls/hr Loratadine (Claritin -) 10 mg PO DAILY [facility] Last Admin: 08/21/16 10:16 Dose: 10 mg Multivitamins/Minerals/Vitamin C (Tab-A-Vit -) 1 tab PO DAILY [facility] Last Admin: 08/21/16 10:16 Dose: 1 tab Pantoprazole Sodium (Protonix -) 20 mg PO DAILY [facility] Last Admin: 08/21/16 10:16 Dose: 20 mg Prednisone (Deltasone -) 20 mg PO DAILY [facility] Last Admin: 08/21/16 12:24 Dose: 20 mg Ranitidine HCl (Zantac -) 150 mg PO DAILY [facility] Last Admin: 08/21/16 10:16 Dose: 150 mg Rivaroxaban (Xarelto -) 20 mg PO DAILY [facility] Last Admin: 08/21/16 10:16 Dose: 20 mg Sodium Chloride (Normal Saline -) 500 ml IV Q20M PRN PRN Reason: MAP<65mm Hg OR SBP <90 A/P 81 year old woman with PMhx of Chronic Respiratory Failure on Vent via Trach, CHF, Cardiac Arrest, GERD, Anemia with Hx of GI bleed presented from [facility] with AMS and Fever and found to have urinary tract infection with lactic acidosis and BUN/Cr of 36/0.9 and Na of 146. #Lactic acidosis in setting of UTI LA now resolved off IVF On Ertapenum as per ID #Pre-renal azotemia/Hypernatermia BUN/Cr stable Na WNL #Chronic Resp failure continue Vent support pulmonary following PRN lasix as per pulmonary #AMS likely secondary to UTI Thank you Cortez Silva DO
[2016-08-21] MEDS: ATORVASTATIN CA 10 MG TABLET (FP) PO SCH (22:15)
[2016-08-21] MEDS: DOCUSATE SODIUM 100 MG CAPSULE (FP) PO SCH (22:15)
[2016-08-22] MEDS: ALBUTEROL SO4 2.5/IPRATROPIUM 0.5 INH SOL 3 ML VIAL.NEB. NEB PRN (06:00)
--- NOTE | 2016-08-22 08:53 | DS ---
Physical Examination Vital Signs: Vital Signs Temperature 98.3 F 08/22/16 06:00 Pulse Rate 97 H 08/22/16 06:00 Respiratory Rate 12 08/22/16 06:51 Blood Pressure 138/70 08/22/16 06:00 O2 Sat by Pulse Oximetry (%) 98 08/21/16 09:57 Labs: CBC, BMP 08/21/16 07:25 08/21/16 07:25 Discharge Summary Reason For Visit: UTI DEHYDRATION AMS Current Active Problems Acute and chronic respiratory failure with hypercapnia (Acute) Altered mental status (Acute) COPD (chronic obstructive pulmonary disease) (Acute) Dehydration (Acute) Pleural effusion (Acute) UTI (urinary tract infection) (Acute) Hospital Course: The patient is an 81 year old female, with a significant past medical history of multiple comorbidities including iron deficiency anemia, HTN, hyperlipidemia , COPD, chronic tracheotomy on a ventilator, chronic respiratory failure, CHF, cardiac arrest (1998), GERD and upper GI bleed, who presents to the emergency department via EMS from [facility] for evaluation with a fever and altered mental status. HPI is limited due to patients clinical condition. Allergies: Doxycycline, Clams Past Surgical History: AICD Placement PCP: Dr. Cook patient got rocephin in er and nebulizer elevarted lactic acid now is normal Limitations to Obtaining History: Clinical Condition - Past Medical History Cardiovascular: Yes: AFIB (Paroxysmal), CHF, HTN, Hyperlipdemia, Other (h/o cardiac arrest s/p AICD) Pulmonary: Yes: COPD, Other (respiratory failure) Gastrointestinal: Yes: GERD Heme/Onc: Yes: Anemia - Past Surgical History Past Surgical History: Yes: AICD (Medtronic implanted 5 years ago?), Cataract Removal (2011) Problems (1) UTI (urinary tract infection) Assessment/Plan: urine c/s Microbiology 08/17/16 21:49 Urine Culture - Final Urine - Urine - Catheterized Morganella Morganii 08/17/16 20:13 Blood Culture - Preliminary Blood - Peripheral Venous NO GROWTH OBTAINED AFTER 48 HOURS, INCUBATION TO CONTINUE FOR 3 DAYS. 08/17/16 20:13 Blood Culture - Preliminary Blood - Peripheral Venous NO GROWTH OBTAINED AFTER 48 HOURS, INCUBATION TO CONTINUE FOR 3 DAYS. RESISTANT TO Rocephin --ID F/U---ON ertapenem--today last day Code(s): N39.0 - URINARY TRACT INFECTION, SITE NOT SPECIFIED Qualifiers: Urinary tract infection type: site unspecified Hematuria presence: without hematuria Qualified Code(s): N39.0 - Urinary tract infection, site not specified (2) Chronic respiratory failure Assessment/Plan: vent NEBS REQUIRED STEROIDS LAST NIGHT ---WILL START PREDNISONE 20--PULM F/U Code(s): J96.10 - CHRONIC RESPIRATORY FAILURE, UNSP W HYPOXIA OR HYPERCAPNIA Qualifiers: Respiratory failure complication: hypercapnia Qualified Code(s): J96.12 - Chronic respiratory failure with hypercapnia (3) PAF (paroxysmal atrial fibrillation) Assessment/Plan: xarelto Code(s): I48.0 - PAROXYSMAL ATRIAL FIBRILLATION (4) COPD (chronic obstructive pulmonary disease) Assessment/Plan: bronchodilators pulm eval noted ppi REQUIRED STEROIDS LAST NIGHT ---WILL START PREDNISONE 20--PULM F/U Code(s): J44.9 - CHRONIC OBSTRUCTIVE PULMONARY DISEASE, UNSPECIFIED (5) Pleural effusion Assessment/Plan: pulm following Code(s): J90 - PLEURAL EFFUSION, NOT ELSEWHERE CLASSIFIED Condition: Improved - Instructions Referrals: Royer Verduzco MD [Primary Care Provider] - Disposition: [facility] - Home Medications Comprehensive Discharge Medication List: Ambulatory Orders Simvastatin [Zocor -] 20 mg PO DAILY 05/24/12 Ascorbate Calcium [Vitamin C] 500 mg PO DAILY 01/20/16 Docusate Sodium 300 mg PO HS 01/20/16 Ferrous Sulfate 325 mg PO BID 01/20/16 Hypromellose 0.5% Opth Soln [Artificial Tears] 1 drop OU BID 01/20/16 Rivaroxaban [Xarelto -] 20 mg PO DAILY 01/20/16 Clonazepam 0.5 mg PO DAILY 04/15/16 Lactose-Reduced Food [Ensure Plus] 237 ml PO BID 04/15/16 Multivitamins [Multivit ([facility] Formulary)] 1 tab PO DAILY 04/15/16 Acetaminophen [Tylenol .Regular Strength -] 650 mg PO Q4H PRN #0 tablet Bacitracin - [Bacitracin Topical Ointment -] 1 applic TP DAILY #1 tube 04/21/16 Cyproheptadine [Periactin -] 4 mg PO Q12H 08/14/16 Ipratropium [place] 0.2 mg IH QID 08/14/16 Loratadine 10 mg PO DAILY 08/14/16 Omeprazole 20 mg PO DAILY 08/14/16 Ranitidine HCl [Zantac] 150 mg PO DAILY 08/14/16 Albuterol 2.5/Ipratropium 0.5 [Duoneb -] 1 amp NEB Q4H PRN #0 amp 08/22/16 Clonazepam [Klonopin -] 0.5 mg PO BID PRN #0 tablet MDD 2 08/22/16 Prednisone [Deltasone -] 20 mg PO DAILY tablet 08/22/16
[2016-08-22] MEDS ORDERED: PT OWN MED DRAWER 7, Y5N ONE (09:39)
[2016-08-22] MEDS: PANTOPRAZOLE 20 MG TABLET (FP) PO SCH (09:51)
[2016-08-22] MEDS: FERROUS SO4 325 MG TABLET (FP) PO SCH (09:51)
[2016-08-22] MEDS: ASCORBIC ACID 500 MG TABLET (FP) PO SCH (09:51)
[2016-08-22] MEDS: RANITIDINE HCL 150 MG TABLET (FP) PO SCH (09:51)
[2016-08-22] MEDS: LORATADINE 10 MG TABLET PO SCH (09:51)
[2016-08-22] MEDS: RIVAROXABAN 20 MG TABLET PO SCH (09:51)
[2016-08-22] MEDS: CYPROHEPTADINE HCL 4 MG TABLET PO SCH (09:52)
[2016-08-22] MEDS: ERTAPENEM SODIUM 1 GM in SODIUM CHLORIDE 50 ML IVPB SCH (09:52)
[2016-08-22] MEDS: MULTIVITAMINS (DAILY MVI) TABLET (FP) PO SCH (09:58)
[2016-08-22] MEDS: predniSONE 20 MG TABLET (UD) PO SCH (09:58)
[2016-08-22 10:26] VITALS: PULSE 95
[2016-08-22 10:41] VITALS: BP 130/78; TEMP 98.6
--- NOTE | 2016-08-22 12:03 | PN ---
Progress Note (short form) - Note Progress Note: NAD on AC Mode of vent. Awake and responsive. No acute events overnight. Intake & Output 08/19/16 08/20/16 08/21/16 08/22/16 23:59 23:59 23:59 23:59 Intake Total 2520 3210 1790 1100 Balance 2520 3210 1790 1100 Weight 105 lb 8 oz Last Vital Signs Temp Pulse Resp BP Pulse Ox 98.6 F 95 H 14 130/78 95 08/22/16 10:00 08/22/16 10:19 08/22/16 10:19 08/22/16 10:00 08/22/16 10:41 Active Medications Acetaminophen (Tylenol -) 650 mg PO Q6H PRN PRN Reason: HEADACHE/TEMP > 100.6 Albuterol/Ipratropium (Duoneb -) 1 amp NEB Q4H PRN PRN Reason: SHORTNESS OF BREATH Last Admin: 08/22/16 06:00 Dose: 1 amp Artificial Tears (Artificial Tears) 1 drop OU BID PRN PRN Reason: DRY EYES Last Admin: 08/20/16 09:34 Dose: 1 drop Ascorbic Acid (Vitamin C -) 500 mg PO DAILY [facility] Last Admin: 08/22/16 09:51 Dose: 500 mg Atorvastatin Calcium (Lipitor -) 10 mg PO HS [facility] Last Admin: 08/21/16 22:15 Dose: 10 mg Clonazepam (Klonopin -) 0.5 mg PO BID PRN PRN Reason: ANXIETY Cyproheptadine HCl (Periactin -) 4 mg PO BID [facility] Last Admin: 08/22/16 09:52 Dose: 4 mg Docusate Sodium (Colace -) 300 mg PO HS [facility] Last Admin: 08/21/16 22:15 Dose: 300 mg Ferrous Sulfate (Feosol -) 325 mg PO BID [facility] Last Admin: 08/22/16 09:51 Dose: 325 mg Ertapenem 1 gm/ Sodium (Chloride) 50 mls @ 100 mls/hr IVPB DAILY [facility] Last Admin: 08/22/16 09:52 Dose: 100 mls/hr Loratadine (Claritin -) 10 mg PO DAILY [facility] Last Admin: 08/22/16 09:51 Dose: 10 mg Multivitamins/Minerals/Vitamin C (Tab-A-Vit -) 1 tab PO DAILY [facility] Last Admin: 08/22/16 09:58 Dose: 1 tab Pantoprazole Sodium (Protonix -) 20 mg PO DAILY [facility] Last Admin: 08/22/16 09:51 Dose: 20 mg Prednisone (Deltasone -) 20 mg PO DAILY [facility] Last Admin: 08/22/16 09:58 Dose: 20 mg Ranitidine HCl (Zantac -) 150 mg PO DAILY [facility] Last Admin: 08/22/16 09:51 Dose: 150 mg Rivaroxaban (Xarelto -) 20 mg PO DAILY [facility] Last Admin: 08/22/16 09:51 Dose: 20 mg Cardiovascular: Yes: S1, S2 Respiratory: Yes: Mechanically Ventilated, bibasilar rhonchi Gastrointestinal: Yes: Normal Bowel Sounds, Soft Labs: Assessment/Plan Problems (1) UTI (urinary tract infection) Assessment/Plan: Code(s): N39.0 - URINARY TRACT INFECTION, SITE NOT SPECIFIED Qualifiers: Urinary tract infection type: site unspecified Hematuria presence: without hematuria Qualified Code(s): N39.0 - Urinary tract infection, site not specified (2) Chronic respiratory failure Assessment/Plan: Code(s): J96.10 - CHRONIC RESPIRATORY FAILURE, UNSP W HYPOXIA OR HYPERCAPNIA Qualifiers: Respiratory failure complication: hypercapnia Qualified Code(s): J96.12 - Chronic respiratory failure with hypercapnia (3) PAF (paroxysmal atrial fibrillation) Assessment/Plan: Code(s): I48.0 - PAROXYSMAL ATRIAL FIBRILLATION (4) COPD (chronic obstructive pulmonary disease) Assessment/Plan: Code(s): J44.9 - CHRONIC OBSTRUCTIVE PULMONARY DISEASE, UNSPECIFIED (5) Pleural effusion Assessment/Plan: Code(s): J90 - PLEURAL EFFUSION, NOT ELSEWHERE CLASSIFIED PLAN: AC Mode of vent with wean trials as tolerated ABX Per ID BD TX D/C Planning to SNF Dr Medina
== END 2016-08-22 13:49 | DRG 689 ==
LOC: JER 16:51 → UNDOADMIN 23:55 → JERBED 23:55 → JICU 08-18 13:59 → J5S 08-19 07:30
PROVIDERS: ADMIT Family Medicine; ATTEND Family Medicine
PROC: 5A1955Z Respiratory Ventilation, Greater than 96 Consecutive Hours (ICD-10-PCS; principal; 2016-08-17)
DX: N39.0 Urinary tract infection, site not specified (principal); J96.21 Acute and chronic respiratory failure with hypoxia; J96.22 Acute and chronic respiratory failure with hypercapnia; I46.9 Cardiac arrest, cause unspecified; E87.0 Hyperosmolality and hypernatremia; J96.10 Chronic respiratory failure, unspecified whether with hypoxia or hypercapnia; E87.2 Acidosis; D50.8 Other iron deficiency anemias; E78.5 Hyperlipidemia, unspecified; I25.10 Atherosclerotic heart disease of native coronary artery without angina pectoris; J44.9 Chronic obstructive pulmonary disease, unspecified; I48.0 Paroxysmal atrial fibrillation; I11.0 Hypertensive heart disease with heart failure; I50.9 Heart failure, unspecified; E86.0 Dehydration; K21.9 Gastro-esophageal reflux disease without esophagitis; Z93.0 Tracheostomy status; L89.151 Pressure ulcer of sacral region, stage 1; Z95.810 Presence of automatic (implantable) cardiac defibrillator
CPT/HCPCS: 36415; 71010-TC; 80048; 80053; 81003; 81015; 82550; 82803; 83605; 84484; 85025; 85610; 85730; 86850; 86900; 86901; 87040; 87086; 87186; 93005; 93010; 94002; 94640; 99284-25

== ENCOUNTER 2016-08-23 12:45 | Inpatient (IN) | payer OTHER ==
[2016-08-23] MEDS ORDERED: SODIUM CHLORIDE 1,000 ML IV STA (12:57)
--- NOTE | 2016-08-23 12:58 | PDOC ---
History of Present Illness <ZackBethanyminerva - Last Filed: 08/23/16 14:48> - General History Source: Patient, EMS Exam Limitations: Clinical Condition - History of Present Illness Initial Comments: 08/23/16 13:06 81y F hx of anemia, htn, hl, copd s/p trach due to respiratory failure, chf, cardiac arrest in 1998, GIB, recent admission for uti, AMS, was found to be unresponsive by NH staff, and noted to be hypotensive to 70s/40s. EMS was called, and found to be the pt to intermittenly alert, but thought she may just be ignoring him, bp was at 100/70. On arrival the pt will open her eys to my verbal command, and seems to be able to understand my questions by shaking/ nodding her head. Denies any headache, chets pain, sob, abd pain, n/v, fever. history limited as she is nonverbal <Isiah Cosby - Last Filed: 08/23/16 15:59> - General Stated Complaint: HYPROTENSIVE Time Seen by Provider: 08/23/16 12:53 Past History <ZackBethanyminerva - Last Filed: 08/23/16 14:48> - Past Medical History Anemia: Yes Asthma: No Cancer: No Cardiac Disorders: Yes (CARDIAC ARREST 1998, af) CVA: No COPD: Yes CHF: No Dementia: Yes (SHORT TERM MEMORY LOSS) Diabetes: No GI Disorders: No Disorders: No HTN: Yes Hypercholesterolemia: Yes Liver Disease: No Seizures: No Thyroid Disease: No - Surgical History Abdominal Surgery: No Appendectomy: No Cardiac Surgery: Yes (DEFIBRILLATOR) Cholecystectomy: No Lung Surgery: No Neurologic Surgery: No Orthopedic Surgery: No - Immunization History Immunization Up to Date: Yes - Psycho/Social/Smoking Cessation Hx Anxiety: No Suicidal Ideation: No Smoking History: Unknown if ever smoked Have you smoked in the past 12 months: No Number of Cigarettes Smoked Daily: 0 Cigars Per Day: 0 Hx Alcohol Use: No Drug/Substance Use Hx: No Substance Use Type: None <Isiah Cosby - Last Filed: 08/23/16 15:59> - Past Medical History Allergies/Adverse Reactions: Allergies Allergy/AdvReac Type Severity Reaction Status Date / Time doxycycline Allergy Intermediate Verified 08/23/16 13:01 CLAMS Allergy Intermediate Hives Uncoded 08/23/16 13:01 Home Medications: Ambulatory Orders Simvastatin [Zocor -] 20 mg PO DAILY 05/24/12 Ascorbate Calcium [Vitamin C] 500 mg PO DAILY 01/20/16 Docusate Sodium 300 mg PO HS 01/20/16 Ferrous Sulfate 325 mg PO BID 01/20/16 Hypromellose 0.5% Opth Soln [Artificial Tears] 1 drop OU BID 01/20/16 Rivaroxaban [Xarelto -] 20 mg PO DAILY 01/20/16 Lactose-Reduced Food [Ensure Plus] 237 ml PO BID 04/15/16 Multivitamins [Multivit ([facility] Formulary)] 1 tab PO DAILY 04/15/16 Acetaminophen [Tylenol .Regular Strength -] 650 mg PO Q4H PRN #0 tablet Bacitracin - [Bacitracin Topical Ointment -] 1 applic TP DAILY #1 tube 04/21/16 Cyproheptadine [Periactin -] 4 mg PO Q12H 08/14/16 Ipratropium [place] 0.2 mg IH QID 08/14/16 Loratadine 10 mg PO DAILY 08/14/16 Omeprazole 20 mg PO DAILY 08/14/16 Ranitidine HCl [Zantac] 150 mg PO DAILY 08/14/16 Albuterol 2.5/Ipratropium 0.5 [Duoneb -] 1 amp NEB Q4H PRN #0 amp 08/22/16 Clonazepam [Klonopin -] 0.5 mg PO BID PRN #0 tablet MDD 2 08/22/16 Prednisone [Deltasone -] 20 mg PO DAILY tablet 08/22/16 Review of Systems - Review of Systems Able to Perform ROS?: No (limited due to clinical c) <Isiah Cosby - Last Filed: 08/23/16 15:59> *Physical Exam - Vital Signs Last Vital Signs Temp Pulse Resp BP Pulse Ox 99 F 80 12 93/54 100 08/23/16 14:30 08/23/16 14:30 08/23/16 13:00 08/23/16 14:30 08/23/16 14:30 <Meredith Dixon - Last Filed: 08/23/16 14:48> - Physical Exam Comments: CONSTITUTIONAL: Frail appearing. opens eyes to verbal command HEAD: Normocephalic; atraumatic. EYES: Pupils are 3-4mm and reactive symmetrically ENMT: Dry mucosa. External appears normal; NECK: Tracheotomy, on a ventilator. Supple; non-tender CARD: Normal S1, S2; no murmurs, rubs, or gallops. RESP: scattered wheezing on vent ABD: Soft, non-distended; non-tender; no palpable organomegaly, no palpable hernias. EXT: Normal ROM in all four extremities; non-tender to palpation; distal pulses intact. SKIN: Sthin, upper and lower extremities. Warm, dry, stage 1 sacral ulcer NEURO: gait deferred <Alea,Isiah - Last Filed: 08/23/16 15:59> Heart Score/ECG Review - ECG Impressions Comment:: 08/23/16 13:33 Twelve-lead EKG was performed and reviewed by me. There is normal sinus rhythm with a normal rate. Rate of 86 PACs seen Q waves in septal leads abnromal r wave progression <Alea,Isiah - Last Filed: 08/23/16 15:59> ED Treatment Course - LABORATORY CBC & Chemistry Diagram: 08/23/16 13:16 08/23/16 13:16 - ADDITIONAL ORDERS Additional order review: Laboratory Results 08/23/16 08/23/16 08/23/16 13:42 13:30 13:20 INR PTT (Actin FS) VBG pH 7.43 H POC VBG pCO2 48.0 POC VBG pO2 45.7 H D Sodium Potassium Chloride Carbon Dioxide Anion Gap BUN Creatinine Creat Clearance w eGFR Random Glucose Lactic Acid Calcium Total Bilirubin AST ALT Alkaline Phosphatase Creatine Kinase Troponin I Total Protein Albumin Urine Color Yellow Urine Appearance Clear Urine pH 5.0 D Ur Specific [place] 1.016 Urine Protein 3+ H Urine Glucose (UA) Negative Urine Ketones Negative Urine Blood Negative Urine Nitrite Negative Urine Bilirubin Negative Urine Urobilinogen Negative Ur Leukocyte Esterase Negative Urine RBC 1 Urine WBC 2 Ur Epithelial Cells Rare Urine Bacteria Rare Hyaline Casts 7 Urine Mucus Few Blood Type A POSITIVE Antibody Screen Negative 08/23/16 08/23/16 08/23/16 13:16 13:16 13:16 INR 1.43 H PTT (Actin FS) 31.3 VBG pH POC VBG pCO2 POC VBG pO2 Sodium 143 Potassium 3.6 Chloride 103 Carbon Dioxide 30 Anion Gap 10 BUN 22 H D Creatinine 0.8 D Creat Clearance w eGFR > 60 Random Glucose 81 D Lactic Acid 1.020 Calcium 8.6 Total Bilirubin 0.3 D AST 18 D ALT 20 Alkaline Phosphatase 71 Creatine Kinase 26 Troponin I < 0.02 Total Protein 6.3 L Albumin 3.2 L Urine Color Urine Appearance Urine pH Ur Specific [place] Urine Protein Urine Glucose (UA) Urine Ketones Urine Blood Urine Nitrite Urine Bilirubin Urine Urobilinogen Ur Leukocyte Esterase Urine RBC Urine WBC Ur Epithelial Cells Urine Bacteria Hyaline Casts Urine Mucus Blood Type Antibody Screen 08/23/16 13:16 RBC 4.21 MCV 86.7 MCHC 32.4 RDW 14.9 MPV 8.2 Neutrophils % 73.3 D Lymphocytes % 15.3 D Monocytes % 8.3 D Eosinophils % 2.6 D Basophils % 0.5 - RADIOLOGY Radiograph Interpretation: 08/23/16 14:33 EXAM: CXR INTERPRETED BY: Dr. Alvarado REVIEWED BY: Dr. Cosby IMPRESSION: Left pleural effusion with retrocardiac compressive atelectasis - Medications Given in the ED: ED Medications Discontinued Medications Generic Name Dose Route Start Last Admin Trade Name Freq PRN Reason Stop Dose Admin Albuterol/Ipratropium 1 amp 08/23/16 13:14 08/23/16 13:31 Duoneb - NEB 08/23/16 13:15 1 amp ONCE ONE Administration Sodium Chloride 1,000 mls @ 1,000 mls/hr 08/23/16 12:57 08/23/16 13:31 Normal Saline - IV 08/23/16 13:56 1,000 mls/hr ASDIR STA Administration <Meredith Dixon - Last Filed: 08/23/16 14:48> - LABORATORY CBC & Chemistry Diagram: 08/23/16 13:16 08/23/16 13:16 <Isiah Cosby - Last Filed: 08/23/16 15:59> Medical Decision Making - Medical Decision Making 08/23/16 14:49 First call placed to Dr. Cook at 14:48. Case discussed at this time. <Meredith Dixon - Last Filed: 08/23/16 14:48> - Medical Decision Making 08/23/16 14:55 81y F brought in by ems for hyptension and unresponsiveness from NH - recently discharged from hospital yetserday for UTI. pt nonverbal, but without complaints,m able to mouth or nod/shake her head and denies complaints. on exam pt does appear dry mucus membranes on arrival her vitals showd bp that was low normal 08/23/16 15:58 labs reviewed and are normal gas normal cxr shows some effusion and atelectasis but not significantly different from previous xray pt bpimroving with hydration suspect her hyptonesion secondary to dehdyration will place in observation status fo rhydration case d/w d.r mone agree with observation for further management Case discussed in detail with admitting physician including history, physical exam and ancillary studies. Admitting physician has assumed care for the patient, will follow all pending diagnostics and will complete the evaluation and treatment. <Isiah Cosby - Last Filed: 08/23/16 15:59> *DC/Admit/Observation/Transfer - Attestations Scribe Attestion: 08/23/16 14:35 Documentation prepared by Meredith Dixon, acting as medical transcriptionist for Isiah Cosby MD. <Meredith Dixon - Last Filed: 08/23/16 14:48> - Discharge Dispostion Admit: Yes <Isiah Cosby - Last Filed: 08/23/16 15:59> Diagnosis at time of Disposition: Dehydration Hypotension Qualifiers: Hypotension type: unspecified hypotension type Qualified Code(s): I95.9 - Hypotension, unspecified - Discharge Dispostion Condition at time of disposition: Guarded - Referrals Referrals: Royer Verduzco MD [Primary Care Provider] -
[2016-08-23] MEDS ORDERED: ALBUTEROL SO4 2.5/IPRATROPIUM 0.5 INH SOL 3 ML VIAL.NEB. NEB ONE ×2 (13:14→14:17)
[2016-08-23 13:34] LABS: VENOUS BLOOD GAS HCO3 31.5 meq/L (22-29); VENOUS PH 7.43 (7.31-7.41)
[2016-08-23 13:38] LABS: BASOPHIL 0.5 % (0-2.0); EOSINOPHIL 2.6 % (0-4.5); MCH 28.1 pg (25.7-33.7); MCHC 32.4 g/dl (32.0-36.0); MEAN CELL VOLUME 86.7 fl (80-96); MEAN PLT VOLUME 8.2 fl (7.5-11.1); NEUTROPHILS 73.3 % (42.8-82.8); PLATELET COUNT 255 K/MM3 (134-434); RDW 14.9 % (11.6-15.6); WHITE BLOOD COUNT 12.2 K/mm3 (4.0-10.0)
[2016-08-23 13:53] LABS: INR 1.43 (0.82-1.09); PROTHROMBIN TIME (PATIENT) 15.9 SEC (9.98-11.88)
[2016-08-23 13:55] LABS: ACTIVATED PTT 31.3 SECONDS (26.9-34.4)
[2016-08-23 14:08] LABS: URINE APPEARANCE CLEAR; URINE BILIRUBIN NEGATIVE (NEGATIVE); URINE BLOOD NEGATIVE (NEGATIVE); URINE COLOR YELLOW; URINE GLUCOSE (UA) NEGATIVE (NEGATIVE); URINE KETONE NEGATIVE (NEGATIVE); URINE LEUK ESTERASE NEGATIVE (NEGATIVE); URINE NITRITE NEGATIVE (NEGATIVE); URINE UROBILINOGEN NEGATIVE E.U./dl (0.2-1.0)
[2016-08-23 14:10] LABS: ALBUMIN 3.2 g/dl (3.4-5.0); ANION GAP 10 (8-16); CALCIUM 8.6 mg/dL (8.5-10.1); CO2 30 mmol/L (21-32); CREATININE 0.8 mg/dL (0.55-1.02); GLUCOSE,RANDOM 81 mg/dL (74-106); SGOT/AST 18 U/L (15-37); SGPT/ALT 20 U/L (12-78)
[2016-08-23 14:10] LABS: URINE PROTEIN 3+ (NEGATIVE)
[2016-08-23 14:14] LABS: URINE BACTERIA RARE /hpf (NONE SEEN); URINE HYALINE CAST 7 /lpf; URINE MUCUS FEW; URINE RBC 1 /hpf (0-3); URINE WBC 2 /hpf (3-5)
[2016-08-23 14:14] LABS: ALK PHOS 71 U/L (45-117); BILIRUBIN,TOTAL 0.3 mg/dL (0.2-1.0); TOT PROT 6.3 g/dl (6.4-8.2); TROPONIN I < 0.02 ng/ml (0.00-0.05)
[2016-08-23] MEDS ORDERED: ACETAMINOPHEN 325 MG TABLET (FP) PO PRN (18:13)
[2016-08-23] MEDS: CYPROHEPTADINE HCL 4 MG TABLET PO SCH (18:18)
[2016-08-23] MEDS ORDERED: PATIENT'S OWN MEDICATION (NON-FORMULARY) (Hypromellose 0.5% Opth Soln [Artificial Tears] 1 OU SCH (22:00)
[2016-08-23] MEDS ORDERED: PATIENT'S OWN MEDICATION (NON-FORMULARY) (Lactose-Reduced Food [Ensure Plus] 237 ML) PO SCH (22:00)
[2016-08-23] MEDS: IPRATROPIUM BR 0.02% 0.5 MG/2.5 ML VIAL.NEB. NEB SCH (22:33)
--- NOTE | 2016-08-23 22:55 | EKG ---
Test Reason : Blood Pressure : / mmHG Vent. Rate : 086 BPM Atrial Rate : 086 BPM P-R Int : 124 ms QRS Dur : 084 ms QT Int : 388 ms P-R-T Axes : 000 037 044 degrees QTc Int : 464 ms SINUS RHYTHM WITH PREMATURE ATRIAL COMPLEXES WITH ABERRANT CONDUCTION ANTEROSEPTAL INFARCT (CITED ON OR BEFORE 15-APR-2016) ABNORMAL ECG WHEN COMPARED WITH ECG OF 19-AUG-2016 12:08, ABERRANT CONDUCTION IS NOW PRESENT QUESTIONABLE CHANGE IN INITIAL FORCES OF SEPTAL LEADS Confirmed by DEJUAN LEIGH MD ([id number]) on 08/23/2016 10:55:05 PM Referred By: Confirmed By:DEJUAN LEIGH MD
[2016-08-23] MEDS: ARTIFICIAL TEARS (POLYVINYL ALCOHOL 1.4%) OPTH DROPS OU SCH (23:07)
[2016-08-23] MEDS: DOCUSATE SODIUM 100 MG CAPSULE (FP) PO SCH (23:08)
[2016-08-23] MEDS: FERROUS SO4 325 MG TABLET (FP) PO SCH (23:08)
[2016-08-23] MEDS: ATORVASTATIN CA 10 MG TABLET (FP) PO SCH (23:09)
[2016-08-24 00:53] VITALS: BMI 17.6
[2016-08-24] MEDS: CYPROHEPTADINE HCL 4 MG TABLET PO SCH ×2 (06:11→17:15)
[2016-08-24 06:59] LABS: BASOPHIL 0.4 % (0-2.0); EOSINOPHIL 2.9 % (0-4.5); MCH 28.1 pg (25.7-33.7); MCHC 32.4 g/dl (32.0-36.0); MEAN CELL VOLUME 86.9 fl (80-96); MEAN PLT VOLUME 8.3 fl (7.5-11.1); PLATELET COUNT 227 K/MM3 (134-434); RDW 14.7 % (11.6-15.6); WHITE BLOOD COUNT 10.7 K/mm3 (4.0-10.0)
[2016-08-24 07:26] LABS: ALK PHOS 63 U/L (45-117); ANION GAP 10 (8-16); BILIRUBIN,TOTAL 0.5 mg/dL (0.2-1.0); CALCIUM 8.2 mg/dL (8.5-10.1); CO2 29 mmol/L (21-32); CREATININE 0.6 mg/dL (0.55-1.02); GLUCOSE,RANDOM 68 mg/dL (74-106); SGOT/AST 14 U/L (15-37); SGPT/ALT 16 U/L (12-78); TOT PROT 5.8 g/dl (6.4-8.2)
[2016-08-24] MEDS: IPRATROPIUM BR 0.02% 0.5 MG/2.5 ML VIAL.NEB. NEB SCH ×4 (09:10→23:14)
[2016-08-24] MEDS ORDERED: PT OWN MED DRAWER 7, Y5N ONE ×3 (09:44→21:32)
[2016-08-24] MEDS: RIVAROXABAN 20 MG TABLET PO SCH (09:45)
[2016-08-24] MEDS: ASCORBIC ACID 500 MG TABLET (FP) PO SCH (09:45)
[2016-08-24] MEDS: FERROUS SO4 325 MG TABLET (FP) PO SCH ×2 (09:45→22:31)
[2016-08-24] MEDS: PANTOPRAZOLE 20 MG TABLET (FP) PO SCH (09:46)
[2016-08-24] MEDS: ARTIFICIAL TEARS (POLYVINYL ALCOHOL 1.4%) OPTH DROPS OU SCH ×2 (09:46→22:30)
[2016-08-24] MEDS: predniSONE 20 MG TABLET (UD) PO SCH (09:46)
[2016-08-24] MEDS: MULTIVITAMINS (DAILY MVI) TABLET (FP) PO SCH (09:46)
[2016-08-24] MEDS: RANITIDINE HCL 150 MG TABLET (FP) PO SCH (09:46)
[2016-08-24] MEDS: LORATADINE 10 MG TABLET PO SCH (09:46)
[2016-08-24] MEDS: BACITRACIN 30 GM TUBE TOPICAL OINTMENT TP SCH (10:16)
--- NOTE | 2016-08-24 10:40 | HP ---
Admitting History and Physical - Primary Care Physician PCP: Jacky Cook - Admission Chief Complaint: sent for hypotension History of Present Illness: 81y F hx of anemia, htn, hl, copd s/p trach due to respiratory failure, chf, cardiac arrest in 1998, GIB, recent admission for uti, AMS, was found to be unresponsive by NH staff, and noted to be hypotensive to 70s/40s. EMS was called, and found to be the pt to intermittenly alert, but thought she may just be ignoring him, bp was at 100/70. On arrival the pt will open her eyes to my verbal command, and seems to be able to understand my questions by shaking/ nodding her head. Denies any headache, pain, sob, abd pain, n/v, fever. history limited as patient does not verbalize inER 74/48 and hr 104 temp 99.4 - Past Medical History Cardiovascular: Yes: AFIB (Paroxysmal), CHF, HTN, Hyperlipdemia, Other (h/o cardiac arrest s/p AICD) Pulmonary: Yes: COPD, Other (respiratory failure) Gastrointestinal: Yes: GERD ...: No Heme/Onc: Yes: Anemia - Past Surgical History Past Surgical History: Yes: AICD ([employer]tr[employer] implanted 5 years ago?), Cataract Removal (2011) - Smoking History Smoking history: Unknown if ever smoked Have you smoked in the past 12 months: No Aproximately how many cigarettes per day: 0 - Alcohol/Substance Use Hx Alcohol Use: No Home Medications - Allergies Allergies/Adverse Reactions: Allergies Allergy/AdvReac Type Severity Reaction Status Date / Time doxycycline Allergy Intermediate Verified 08/23/16 13:01 CLAMS Allergy Intermediate Hives Uncoded 08/23/16 13:01 - Home Medications Home Medications: Ambulatory Orders Simvastatin [Zocor -] 20 mg PO DAILY 05/24/12 Ascorbate Calcium [Vitamin C] 500 mg PO DAILY 01/20/16 Docusate Sodium 300 mg PO HS 01/20/16 Ferrous Sulfate 325 mg PO BID 01/20/16 Hypromellose 0.5% Opth Soln [Artificial Tears] 1 drop OU BID 01/20/16 Rivaroxaban [Xarelto -] 20 mg PO DAILY 01/20/16 Lactose-Reduced Food [Ensure Plus] 237 ml PO BID 04/15/16 Multivitamins [Multivit ([facility] Formulary)] 1 tab PO DAILY 04/15/16 Acetaminophen [Tylenol .Regular Strength -] 650 mg PO Q4H PRN #0 tablet Bacitracin - [Bacitracin Topical Ointment -] 1 applic TP DAILY #1 tube 04/21/16 Cyproheptadine [Periactin -] 4 mg PO Q12H 08/14/16 Ipratropium [place] 0.2 mg IH QID 08/14/16 Loratadine 10 mg PO DAILY 08/14/16 Omeprazole 20 mg PO DAILY 08/14/16 Ranitidine HCl [Zantac] 150 mg PO DAILY 08/14/16 Albuterol 2.5/Ipratropium 0.5 [Duoneb -] 1 amp NEB Q4H PRN #0 amp 08/22/16 Clonazepam [Klonopin -] 0.5 mg PO BID PRN #0 tablet MDD 2 08/22/16 Prednisone [Deltasone -] 20 mg PO DAILY tablet 08/22/16 Physical Examination Vital Signs: Vital Signs Temperature 98.6 F 08/24/16 09:25 Pulse Rate 90 08/24/16 09:25 Respiratory Rate 22 08/24/16 09:25 Blood Pressure 122/95 08/24/16 09:25 O2 Sat by Pulse Oximetry (%) 95 08/24/16 10:00 Constitutional: Yes: Calm, Thin Neck: Yes: Other (trach) Cardiovascular: Yes: Regular Rate and Rhythm, S1, S2 Respiratory: Yes: Diminished (on left side) Gastrointestinal: Yes: Normal Bowel Sounds, Soft Edema: No Labs: CBC, BMP 08/24/16 06:15 08/24/16 06:15 Imaging - Results Chest X-ray: Report Reviewed (left effusion) Problem List - Problems (1) Hypotension Assessment/Plan: maybe sec to uti vs low voume status iv fluids leukocytosis ID Code(s): I95.9 - HYPOTENSION, UNSPECIFIED Qualifiers: Hypotension type: unspecified hypotension type Qualified Code(s): I95.9 - Hypotension, unspecified (2) Pleural effusion Assessment/Plan: chronic Code(s): J90 - PLEURAL EFFUSION, NOT ELSEWHERE CLASSIFIED (3) PAF (paroxysmal atrial fibrillation) Assessment/Plan: xarelto Code(s): I48.0 - PAROXYSMAL ATRIAL FIBRILLATION (4) Chronic respiratory failure Assessment/Plan: vent support bronchodilators prednsione Code(s): J96.10 - CHRONIC RESPIRATORY FAILURE, UNSP W HYPOXIA OR HYPERCAPNIA Qualifiers: Respiratory failure complication: hypercapnia Qualified Code(s): J96.12 - Chronic respiratory failure with hypercapnia (5) Anemia Assessment/Plan: ferrous sulfate Code(s): D64.9 - ANEMIA, UNSPECIFIED Qualifiers: Anemia type: iron deficiency
--- NOTE | 2016-08-24 11:35 | CON.PULM ---
Consult Consult Specialty:: PULM/CCM Referred by:: NICOLE Reason for Consultation:: Chronic respiratory failure - History of Present Illness Chief Complaint: low blood pressure / AMS History of Present Illness: 81 F, known to me from previous admissions. COPD, s/p trach due to chronic respiratory failure, HTN, HPL, CHF, cardiac arrest in 1998, GIB, recent admission for UTI/AMS. CXR: bilateral chronic changes with chronic effusions Left > Right : There is no significant change from previous CXR. Admitted via the ER due to suspected sepsis from a urinary source. Patient is lethargic but arousable. She is non-verbal. - History Source History Provided By: Medical Record Limitations to Obtaining History: Clinical Condition - Past Medical History Cardio/Vascular: Yes: AFIB (Paroxysmal), CHF, HTN, Hyperlipdemia, Other (h/o cardiac arrest s/p AICD) Pulmonary: Yes: COPD, Other (respiratory failure) Gastrointestinal: Yes: GERD ...: No - Past Surgical History Past Surgical History: Yes: AICD (Medtr[employer] implanted 5 years ago?), Cataract Removal (2011) - Alcohol/Substance Use Hx Alcohol Use: No - Smoking History Smoking history: Unknown if ever smoked Have you smoked in the past 12 months: No Aproximately how many cigarettes per day: 0 Home Medications - Allergies Allergies/Adverse Reactions: Allergies Allergy/AdvReac Type Severity Reaction Status Date / Time doxycycline Allergy Intermediate Verified 08/23/16 13:01 CLAMS Allergy Intermediate Hives Uncoded 08/23/16 13:01 - Home Medications Home Medications: Ambulatory Orders Simvastatin [Zocor -] 20 mg PO DAILY 05/24/12 Ascorbate Calcium [Vitamin C] 500 mg PO DAILY 01/20/16 Docusate Sodium 300 mg PO HS 01/20/16 Ferrous Sulfate 325 mg PO BID 01/20/16 Hypromellose 0.5% Opth Soln [Artificial Tears] 1 drop OU BID 01/20/16 Rivaroxaban [Xarelto -] 20 mg PO DAILY 01/20/16 Lactose-Reduced Food [Ensure Plus] 237 ml PO BID 04/15/16 Multivitamins [Multivit ([facility] Formulary)] 1 tab PO DAILY 04/15/16 Acetaminophen [Tylenol .Regular Strength -] 650 mg PO Q4H PRN #0 tablet Bacitracin - [Bacitracin Topical Ointment -] 1 applic TP DAILY #1 tube 04/21/16 Cyproheptadine [Periactin -] 4 mg PO Q12H 08/14/16 Ipratropium [place] 0.2 mg IH QID 08/14/16 Loratadine 10 mg PO DAILY 08/14/16 Omeprazole 20 mg PO DAILY 08/14/16 Ranitidine HCl [Zantac] 150 mg PO DAILY 08/14/16 Albuterol 2.5/Ipratropium 0.5 [Duoneb -] 1 amp NEB Q4H PRN #0 amp 08/22/16 Clonazepam [Klonopin -] 0.5 mg PO BID PRN #0 tablet MDD 2 08/22/16 Prednisone [Deltasone -] 20 mg PO DAILY tablet 08/22/16 Review of Systems Unable to obtain ROS, reason: Cannot provide Physical Exam Vital Sings: Vital Signs Temperature 98.6 F 08/24/16 09:25 Pulse Rate 65 08/24/16 11:02 Respiratory Rate 12 08/24/16 11:02 Blood Pressure 122/95 08/24/16 09:25 O2 Sat by Pulse Oximetry (%) 95 08/24/16 11:02 Constitutional: Yes: No Distress, Thin. No: Diaphoresis, Pallor Eyes: Yes: Conjunctiva Clear HENT: Yes: Atraumatic, Normocephalic Neck: Yes: Trachea Midline, Other (Tracheostomy intact ) Cardiovascular: Yes: Regular Rate and Rhythm Respiratory: Yes: Diminished, Mechanically Ventilated, Rhonchi. No: Accessory Muscle Use, Stridor, Tachypnea, Wheezes ...Inspection: Yes: WNL ...Clubbing: No Gastrointestinal: Yes: Normal Bowel Sounds, Soft Renal/: Yes: WNL Musculoskeletal: Yes: WNL Extremities: Yes: WNL Edema: No Peripheral Pulses WNL: Yes Neurological: Yes: Pre-Existing Deficit Labs: CBC, BMP 08/24/16 06:15 08/24/16 06:15 Imaging - Results Chest X-ray: Report Reviewed, Image Reviewed Problem List - Problems (1) Anemia Code(s): D64.9 - ANEMIA, UNSPECIFIED Qualifiers: Anemia type: iron deficiency (2) Dehydration Code(s): E86.0 - DEHYDRATION (3) Hypotension Code(s): I95.9 - HYPOTENSION, UNSPECIFIED Qualifiers: Hypotension type: unspecified hypotension type Qualified Code(s): I95.9 - Hypotension, unspecified (4) AICD (automatic cardioverter/defibrillator) present Code(s): Z95.810 - PRESENCE OF AUTOMATIC (IMPLANTABLE) CARDIAC DEFIBRILLATOR (5) Altered mental status Code(s): R41.82 - ALTERED MENTAL STATUS, UNSPECIFIED Qualifiers: Altered mental status type: unspecified Qualified Code(s): R41.82 - Altered mental status, unspecified (6) COPD (chronic obstructive pulmonary disease) Code(s): J44.9 - CHRONIC OBSTRUCTIVE PULMONARY DISEASE, UNSPECIFIED (7) Chronic respiratory failure Code(s): J96.10 - CHRONIC RESPIRATORY FAILURE, UNSP W HYPOXIA OR HYPERCAPNIA Qualifiers: Respiratory failure complication: hypercapnia Qualified Code(s): J96.12 - Chronic respiratory failure with hypercapnia (8) HTN (hypertension) Code(s): I10 - ESSENTIAL (PRIMARY) HYPERTENSION (9) PAF (paroxysmal atrial fibrillation) Code(s): I48.0 - PAROXYSMAL ATRIAL FIBRILLATION (10) Pleural effusion Code(s): J90 - PLEURAL EFFUSION, NOT ELSEWHERE CLASSIFIED (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 Assessment/Plan PLAN: Current vent settings Poor candidate for wean given mental status ABX per ID : No not suspect occult respiratory tract infection Follow cultures VTE prophylaxis IVF Will follow Thank you. Dr Medina
--- NOTE | 2016-08-24 13:58 | PN ---
Progress Note (short form) - Note Progress Note: ID Consult dictated Hypotension/ unresponsiveness-possible sepsis L pleural effusion , possible pneumonia UTI Hx MRSA soft tissue abscess Await sepsis workup empiric coverage healthcare acquired pathogens with Vanco/ Cefepime
[2016-08-24] MEDS: VANCOMYCIN 1 GRAM (PRE-DOCKED) 250 ML IVPB SCH (15:09)
--- NOTE | 2016-08-24 15:50 | CONS ---
DATE OF CONSULTATION: HISTORY: The patient is an 81-year-old female who was evaluated for possible sepsis. History was obtained from the chart as she cannot give a history secondary to her present mental status. She has a history of chronic respiratory failure status post tracheostomy. She has had 2 recent hospitalizations at [facility] within the past 1 month. She was most recently discharged on August 22, 2016 after treatment for a urinary tract infection. She had received a course of ceftriaxone followed by ertapenem for Morganella UTI. The patient was at the [facility] on August 23, 2016 when she developed unresponsiveness. She was found to be hypotensive with a blood pressure of 70/40. The patient was evaluated in the emergency room at [facility] where she continued to be hypotensive and noted to have an elevated white blood cell count. At the present time, she is awake and responsive. She is in no acute distress. She denies pain when questioned. No reports of cough, sputum production, hemoptysis, grossly purulent urine, infected decubitus ulcers, or vomiting. PAST MEDICAL HISTORY: Positive for respiratory failure status post tracheostomy, atrial fibrillation, COPD, hypertension, congestive heart failure, hyperlipidemia, history of cardiopulmonary arrest, gastroesophageal reflux. PAST SURGICAL HISTORY: Status post right axillary abscess, MRSA, status post pacemaker/implanted defibrillator, status post tracheostomy. ALLERGIES: DOXYCYCLINE. MEDICATIONS: Include prednisone, Tylenol, Xarelto, Klonopin, DuoNeb, Colace, Zantac, Lipitor, Feosol. SOCIAL HISTORY: Resides in a retirement facility. Dependent in activities of daily living. Former smoker. REVIEW OF SYSTEMS: Neurologic: Positive for loss of consciousness. No seizure activity or focal weakness. Cardiac: Positive for atrial fibrillation. Respiratory: Status post tracheostomy for chronic respiratory failure. Gastrointestinal: Negative for vomiting or diarrhea. Genitourinary: Positive for recent urinary tract infection. LABORATORY DATA: White count on admission 12.2, presently 10.7, hematocrit 33.9, platelet count 227, creatinine 0.6. Urinalysis: 2 white cells. Chest x-ray shows a left pleural effusion. Blood cultures preliminarily negative. Urine culture growing enterococcus species. PHYSICAL EXAMINATION: Vital Signs: Temperature 98.6, blood pressure 122/95, pulse 90, regular, respirations 22 per minute. General: The patient is cachectic. HEENT: Sclerae anicteric. Positive tracheostomy. Abdomen: Soft. No tenderness elicited. No mass, rebound, or rigidity. Extremities: Negative for edema. IMPRESSION: 1. Hypotension, possible sepsis. 2. Left pleural effusion, possible pneumonia. 3. Urinary tract infection. 4. History of methicillin-resistant Staphylococcus aureus soft tissue abscess. PLAN: Await sepsis workup. Empiric antibiotic coverage for healthcare-acquired pathogens of the respiratory and urinary tracts with vancomycin and cefepime. Supportive measures. Prognosis is guarded. We will follow. Thank you for the kind referral. JAXON MTZ M.D. [id number]
[2016-08-24] MEDS ORDERED: CEFEPIME HCL 1 GM VIAL (RESTRICTED TO ID) IVPB SCH (18:00)
[2016-08-24] MEDS: CEFEPIME 1 GM in DEXTROSE 5%-WATER - 100 ML IVPB SCH (18:04)
--- NOTE | 2016-08-24 18:08 | CON.ENT ---
Consult Consult Specialty:: ENT Reason for Consultation:: AIr leak with trach - History of Present Illness Chief Complaint: Pt with chronic trach dependence for ventilator with audible air leak and vent not giving full volumes - History Source History Provided By: Medical Record, Caregiver Limitations to Obtaining History: Intubated - Past Medical History Cardio/Vascular: Yes: AFIB (Paroxysmal), CHF, HTN, Hyperlipdemia, Other (h/o cardiac arrest s/p AICD) Pulmonary: Yes: COPD, Other (respiratory failure) Gastrointestinal: Yes: GERD ...: No - Past Surgical History Past Surgical History: Yes: AICD (Medtronic implanted 5 years ago?), Cataract Removal (2011) - Alcohol/Substance Use Hx Alcohol Use: No - Smoking History Smoking history: Unknown if ever smoked Have you smoked in the past 12 months: No Aproximately how many cigarettes per day: 0 Home Medications - Allergies Allergies/Adverse Reactions: Allergies Allergy/AdvReac Type Severity Reaction Status Date / Time doxycycline Allergy Intermediate Verified 08/23/16 13:01 CLAMS Allergy Intermediate Hives Uncoded 08/23/16 13:01 - Home Medications Home Medications: Ambulatory Orders Simvastatin [Zocor -] 20 mg PO DAILY 05/24/12 Ascorbate Calcium [Vitamin C] 500 mg PO DAILY 01/20/16 Docusate Sodium 300 mg PO HS 01/20/16 Ferrous Sulfate 325 mg PO BID 01/20/16 Hypromellose 0.5% Opth Soln [Artificial Tears] 1 drop OU BID 01/20/16 Rivaroxaban [Xarelto -] 20 mg PO DAILY 01/20/16 Lactose-Reduced Food [Ensure Plus] 237 ml PO BID 04/15/16 Multivitamins [Multivit ([facility] Formulary)] 1 tab PO DAILY 04/15/16 Acetaminophen [Tylenol .Regular Strength -] 650 mg PO Q4H PRN #0 tablet Bacitracin - [Bacitracin Topical Ointment -] 1 applic TP DAILY #1 tube 04/21/16 Cyproheptadine [Periactin -] 4 mg PO Q12H 08/14/16 Ipratropium [place] 0.2 mg IH QID 08/14/16 Loratadine 10 mg PO DAILY 08/14/16 Omeprazole 20 mg PO DAILY 08/14/16 Ranitidine HCl [Zantac] 150 mg PO DAILY 08/14/16 Albuterol 2.5/Ipratropium 0.5 [Duoneb -] 1 amp NEB Q4H PRN #0 amp 08/22/16 Clonazepam [Klonopin -] 0.5 mg PO BID PRN #0 tablet MDD 2 08/22/16 Prednisone [Deltasone -] 20 mg PO DAILY tablet 08/22/16 Physical Exam-ENT Vital Signs: Vital Signs Temperature 99.0 F 08/24/16 17:45 Pulse Rate 74 08/24/16 17:45 Respiratory Rate 20 08/24/16 17:45 Blood Pressure 113/44 08/24/16 17:45 O2 Sat by Pulse Oximetry (%) 95 08/24/16 11:02 Constitutional: Yes: No Distress Head: Yes: Atraumatic Face: Yes: Symmetrical Eyes: Yes: Conjunctiva Clear Nose: Yes: WNL Neck: Yes: Other (7 portex, leaking on vent) Problem List - Problems (1) Tracheostomy complication Assessment/Plan: 7 portex changed to 8 portex cuffed, no problem with change, position on scope good. Code(s): J95.00 - UNSPECIFIED TRACHEOSTOMY COMPLICATION Qualifiers: Qualified Code(s): J95.09 - Other tracheostomy complication Procedure - Procedure and Findings -: Trach tube changed to 8 cuffed portex, no more air leak. Tracheobronchoscopy with fiberoptic scope to mary beth. Tube in good position, no stenosis of main stem , trachea or main bronchi. No lesions. No bleeding.
[2016-08-24] MEDS: DOCUSATE SODIUM 100 MG CAPSULE (FP) PO SCH (22:30)
[2016-08-24] MEDS: ATORVASTATIN CA 10 MG TABLET (FP) PO SCH (22:31)
[2016-08-25] MEDS: CEFEPIME 1 GM in DEXTROSE 5%-WATER - 100 ML IVPB SCH ×3 (03:00→17:16)
[2016-08-25] MEDS: VANCOMYCIN 1 GRAM (PRE-DOCKED) 250 ML IVPB SCH (03:37)
[2016-08-25] MEDS ORDERED: PT OWN MED DRAWER 7, Y5N ONE ×3 (05:55→20:52)
[2016-08-25] MEDS: CYPROHEPTADINE HCL 4 MG TABLET PO SCH ×2 (06:22→17:16)
[2016-08-25] MEDS: IPRATROPIUM BR 0.02% 0.5 MG/2.5 ML VIAL.NEB. NEB SCH ×4 (06:32→23:21)
--- NOTE | 2016-08-25 07:25 | PN ---
Progress Note, Physician Chief Complaint: calm - Current Medication List Current Medications: Active Medications Acetaminophen (Tylenol -) 650 mg PO Q4H PRN PRN Reason: HEADACHE/TEMP > 100.6 Albuterol/Ipratropium (Duoneb -) 1 amp NEB Q4H PRN PRN Reason: SHORTNESS OF BREATH Artificial Tears (Artificial Tears) 1 drop OU BID [facility] Last Admin: 08/24/16 22:30 Dose: 1 drp Ascorbic Acid (Vitamin C -) 500 mg PO DAILY [facility] Last Admin: 08/24/16 09:45 Dose: 500 mg Atorvastatin Calcium (Lipitor -) 10 mg PO HS [facility] Last Admin: 08/24/16 22:31 Dose: 10 mg Bacitracin (Bacitracin -) 1 applic TP DAILY [facility] Last Admin: 08/24/16 10:16 Dose: Not Given Clonazepam (Klonopin -) 0.5 mg PO BID PRN PRN Reason: ANXIETY Cyproheptadine HCl (Periactin -) 4 mg PO Q12H [facility] Last Admin: 08/25/16 06:22 Dose: 4 mg Docusate Sodium (Colace -) 300 mg PO HS [facility] Last Admin: 08/24/16 22:30 Dose: 300 mg Ferrous Sulfate (Feosol -) 325 mg PO BID [facility] Last Admin: 08/24/16 22:31 Dose: 325 mg Vancomycin HCl (Vancomycin (Pre-Docked)) 250 mls @ 166.667 mls/hr IVPB Q12H [facility] Last Admin: 08/25/16 03:37 Dose: 166.667 mls/hr Cefepime HCl 1 gm/ Dextrose 100 mls @ 200 mls/hr IVPB Q8H-IV [facility] Last Admin: 08/25/16 03:00 Dose: 200 mls/hr Ipratropium Sle[place] (Atrovent 0.02% Nebulizer -) 1 amp NEB QIDR [facility] Last Admin: 08/24/16 23:14 Dose: 1 amp Loratadine (Claritin -) 10 mg PO DAILY [facility] Last Admin: 08/24/16 09:46 Dose: 10 mg Multivitamins/Minerals/Vitamin C (Tab-A-Vit -) 1 tab PO DAILY [facility] Last Admin: 08/24/16 09:46 Dose: 1 tab Pantoprazole Sodium (Protonix -) 20 mg PO DAILY [facility] Last Admin: 08/24/16 09:46 Dose: 20 mg Prednisone (Deltasone -) 20 mg PO DAILY [facility] Last Admin: 08/24/16 09:46 Dose: 20 mg Ranitidine HCl (Zantac -) 150 mg PO DAILY [facility] Last Admin: 08/24/16 09:46 Dose: 150 mg Rivaroxaban (Xarelto -) 20 mg PO DAILY [facility] Last Admin: 08/24/16 09:45 Dose: 20 mg - Objective Vital Signs: Vital Signs Temperature 98.3 F 08/25/16 05:00 Pulse Rate 67 08/25/16 05:00 Respiratory Rate 18 08/25/16 05:00 Blood Pressure 128/64 08/25/16 05:00 O2 Sat by Pulse Oximetry (%) 98 08/24/16 18:25 Cardiovascular: Yes: S1, S2 Respiratory: Yes: Diminished Gastrointestinal: Yes: Normal Bowel Sounds, Soft Edema: No Labs: INR, PTT INR 1.43 (0.82-1.09) H 08/23/16 13:16 Problem List - Problems (1) Pleural effusion Code(s): J90 - PLEURAL EFFUSION, NOT ELSEWHERE CLASSIFIED (2) Anemia Code(s): D64.9 - ANEMIA, UNSPECIFIED Qualifiers: Anemia type: iron deficiency (3) Chronic respiratory failure Code(s): J96.10 - CHRONIC RESPIRATORY FAILURE, UNSP W HYPOXIA OR HYPERCAPNIA Qualifiers: Respiratory failure complication: hypercapnia Qualified Code(s): J96.12 - Chronic respiratory failure with hypercapnia (4) Hypotension Code(s): I95.9 - HYPOTENSION, UNSPECIFIED Qualifiers: Hypotension type: unspecified hypotension type Qualified Code(s): I95.9 - Hypotension, unspecified (5) PAF (paroxysmal atrial fibrillation) Code(s): I48.0 - PAROXYSMAL ATRIAL FIBRILLATION Assessment/Plan (1) Hypotension Assessment/Plan: maybe sec to uti vs low voume status iv fluids leukocytosis ID on case r/o sepsis ucx +ana iv abx Code(s): I95.9 - HYPOTENSION, UNSPECIFIED Qualifiers: Hypotension type: unspecified hypotension type Qualified Code(s): I95.9 - Hypotension, unspecified (2) Pleural effusion Assessment/Plan: chronic id on case iv abx Code(s): J90 - PLEURAL EFFUSION, NOT ELSEWHERE CLASSIFIED (3) PAF (paroxysmal atrial fibrillation) Assessment/Plan: xarelto Code(s): I48.0 - PAROXYSMAL ATRIAL FIBRILLATION (4) Chronic respiratory failure Assessment/Plan: vent support ent & pulm on case trach changed bronchodilators prednsione Code(s): J96.10 - CHRONIC RESPIRATORY FAILURE, UNSP W HYPOXIA OR HYPERCAPNIA Qualifiers: Respiratory failure complication: hypercapnia Qualified Code(s): J96.12 - Chronic respiratory failure with hypercapnia (5) Anemia Assessment/Plan: ferrous sulfate Code(s): D64.9 - ANEMIA, UNSPECIFIED Qualifiers: Anemia type: iron deficiency [employer]
[2016-08-25 08:25] LABS: BASOPHIL 0.4 % (0-2.0); EOSINOPHIL 1.4 % (0-4.5); MCH 28.4 pg (25.7-33.7); MCHC 32.9 g/dl (32.0-36.0); MEAN CELL VOLUME 86.2 fl (80-96); MEAN PLT VOLUME 8.8 fl (7.5-11.1); NEUTROPHILS 75.7 % (42.8-82.8); PLATELET COUNT 214 K/MM3 (134-434); RDW 14.8 % (11.6-15.6); WHITE BLOOD COUNT 9.7 K/mm3 (4.0-10.0)
[2016-08-25] MEDS: clonazePAM 0.5 MG TABLET PO PRN ×2 (08:47→21:34)
[2016-08-25] MEDS: ASCORBIC ACID 500 MG TABLET (FP) PO SCH (09:38)
[2016-08-25] MEDS: RIVAROXABAN 20 MG TABLET PO SCH (09:38)
[2016-08-25] MEDS: MULTIVITAMINS (DAILY MVI) TABLET (FP) PO SCH (09:38)
[2016-08-25] MEDS: PANTOPRAZOLE 20 MG TABLET (FP) PO SCH (09:38)
[2016-08-25] MEDS: FERROUS SO4 325 MG TABLET (FP) PO SCH ×2 (09:39→21:32)
[2016-08-25] MEDS: RANITIDINE HCL 150 MG TABLET (FP) PO SCH (09:39)
[2016-08-25] MEDS: predniSONE 20 MG TABLET (UD) PO SCH (09:39)
[2016-08-25] MEDS: LORATADINE 10 MG TABLET PO SCH (09:39)
[2016-08-25] MEDS: ARTIFICIAL TEARS (POLYVINYL ALCOHOL 1.4%) OPTH DROPS OU SCH ×2 (09:39→21:33)
[2016-08-25] MEDS: BACITRACIN 30 GM TUBE TOPICAL OINTMENT TP SCH (09:40)
--- NOTE | 2016-08-25 12:15 | PN ---
Progress Note, Physician History of Present Illness: More awake and alert No pain when questioned Afebrile WBC improved - Current Medication List Current Medications: Active Medications Acetaminophen (Tylenol -) 650 mg PO Q4H PRN PRN Reason: HEADACHE/TEMP > 100.6 Albuterol/Ipratropium (Duoneb -) 1 amp NEB Q4H PRN PRN Reason: SHORTNESS OF BREATH Artificial Tears (Artificial Tears) 1 drop OU BID [facility] Last Admin: 08/25/16 09:39 Dose: 1 drp Ascorbic Acid (Vitamin C -) 500 mg PO DAILY [facility] Last Admin: 08/25/16 09:38 Dose: 500 mg Atorvastatin Calcium (Lipitor -) 10 mg PO HS [facility] Last Admin: 08/24/16 22:31 Dose: 10 mg Bacitracin (Bacitracin -) 1 applic TP DAILY [facility] Last Admin: 08/25/16 09:40 Dose: Not Given Clonazepam (Klonopin -) 0.5 mg PO BID PRN PRN Reason: ANXIETY Last Admin: 08/25/16 08:47 Dose: 0.5 mg Cyproheptadine HCl (Periactin -) 4 mg PO Q12H [facility] Last Admin: 08/25/16 06:22 Dose: 4 mg Docusate Sodium (Colace -) 300 mg PO HS [facility] Last Admin: 08/24/16 22:30 Dose: 300 mg Ferrous Sulfate (Feosol -) 325 mg PO BID [facility] Last Admin: 08/25/16 09:39 Dose: 325 mg Vancomycin HCl (Vancomycin (Pre-Docked)) 250 mls @ 166.667 mls/hr IVPB Q12H [facility] Last Admin: 08/25/16 03:37 Dose: 166.667 mls/hr Cefepime HCl 1 gm/ Dextrose 100 mls @ 200 mls/hr IVPB Q8H-IV [facility] Last Admin: 08/25/16 09:40 Dose: 200 mls/hr Ipratropium [place] (Atrovent 0.02% Nebulizer -) 1 amp NEB QIDR [facility] Last Admin: 08/25/16 11:57 Dose: 1 amp Loratadine (Claritin -) 10 mg PO DAILY [facility] Last Admin: 08/25/16 09:39 Dose: 10 mg Multivitamins/Minerals/Vitamin C (Tab-A-Vit -) 1 tab PO DAILY [facility] Last Admin: 08/25/16 09:38 Dose: 1 tab Pantoprazole Sodium (Protonix -) 20 mg PO DAILY [facility] Last Admin: 08/25/16 09:38 Dose: 20 mg Prednisone (Deltasone -) 20 mg PO DAILY [facility] Last Admin: 08/25/16 09:39 Dose: 20 mg Ranitidine HCl (Zantac -) 150 mg PO DAILY [facility] Last Admin: 08/25/16 09:39 Dose: 150 mg Rivaroxaban (Xarelto -) 20 mg PO DAILY [facility] Last Admin: 08/25/16 09:38 Dose: 20 mg - Objective Vital Signs: Vital Signs Temperature 98.9 F 08/25/16 09:00 Pulse Rate 63 08/25/16 09:00 Respiratory Rate 59 H 08/25/16 10:49 Blood Pressure 95/40 08/25/16 09:00 O2 Sat by Pulse Oximetry (%) 96 08/25/16 10:49 Constitutional: Yes: No Distress Eyes: Yes: Conjunctiva Clear Cardiovascular: Yes: Regular Rate and Rhythm, S1, S2 Respiratory: Yes: Diminished Gastrointestinal: Yes: Normal Bowel Sounds, Soft. No: Tenderness Edema: No Labs: CBC, BMP 08/25/16 06:00 INR, PTT INR 1.43 (0.82-1.09) H 08/23/16 13:16 Assessment/Plan S/P hypotension/ altered mental status- possible sepsis L pleural effusion , possible pneumonia + Urine c/s VRE -probable contaminant Continue cefepime D/C vancomycin Contact precautions
--- NOTE | 2016-08-25 15:01 | PN ---
Progress Note, Physician History of Present Illness: pulmonary alert on vent support ac mode,-resp distress - Current Medication List Current Medications: Active Medications Acetaminophen (Tylenol -) 650 mg PO Q4H PRN PRN Reason: HEADACHE/TEMP > 100.6 Albuterol/Ipratropium (Duoneb -) 1 amp NEB Q4H PRN PRN Reason: SHORTNESS OF BREATH Artificial Tears (Artificial Tears) 1 drop OU BID [facility] Last Admin: 08/25/16 09:39 Dose: 1 drp Ascorbic Acid (Vitamin C -) 500 mg PO DAILY [facility] Last Admin: 08/25/16 09:38 Dose: 500 mg Atorvastatin Calcium (Lipitor -) 10 mg PO HS [facility] Last Admin: 08/24/16 22:31 Dose: 10 mg Bacitracin (Bacitracin -) 1 applic TP DAILY [facility] Last Admin: 08/25/16 09:40 Dose: Not Given Clonazepam (Klonopin -) 0.5 mg PO BID PRN PRN Reason: ANXIETY Last Admin: 08/25/16 08:47 Dose: 0.5 mg Cyproheptadine HCl (Periactin -) 4 mg PO Q12H [facility] Last Admin: 08/25/16 06:22 Dose: 4 mg Docusate Sodium (Colace -) 300 mg PO HS [facility] Last Admin: 08/24/16 22:30 Dose: 300 mg Ferrous Sulfate (Feosol -) 325 mg PO BID [facility] Last Admin: 08/25/16 09:39 Dose: 325 mg Cefepime HCl 1 gm/ Dextrose 100 mls @ 200 mls/hr IVPB Q8H-IV [facility] Last Admin: 08/25/16 09:40 Dose: 200 mls/hr Ipratropium [place] (Atrovent 0.02% Nebulizer -) 1 amp NEB QIDR [facility] Last Admin: 08/25/16 11:57 Dose: 1 amp Loratadine (Claritin -) 10 mg PO DAILY [facility] Last Admin: 08/25/16 09:39 Dose: 10 mg Multivitamins/Minerals/Vitamin C (Tab-A-Vit -) 1 tab PO DAILY [facility] Last Admin: 08/25/16 09:38 Dose: 1 tab Pantoprazole Sodium (Protonix -) 20 mg PO DAILY [facility] Last Admin: 08/25/16 09:38 Dose: 20 mg Prednisone (Deltasone -) 20 mg PO DAILY [facility] Last Admin: 08/25/16 09:39 Dose: 20 mg Ranitidine HCl (Zantac -) 150 mg PO DAILY [facility] Last Admin: 08/25/16 09:39 Dose: 150 mg Rivaroxaban (Xarelto -) 20 mg PO DAILY [facility] Last Admin: 08/25/16 09:38 Dose: 20 mg - Objective Vital Signs: Vital Signs Temperature 98.9 F 08/25/16 09:00 Pulse Rate 63 08/25/16 09:00 Respiratory Rate 59 H 08/25/16 10:49 Blood Pressure 95/40 08/25/16 09:00 O2 Sat by Pulse Oximetry (%) 96 08/25/16 10:49 Constitutional: Yes: Calm, Thin Eyes: Yes: WNL HENT: Yes: WNL Neck: Yes: Supple (trach) Cardiovascular: Yes: Pulse Irregular, S1, S2 Respiratory: Yes: Diminished Gastrointestinal: Yes: Normal Bowel Sounds, Soft Extremities: Yes: WNL Edema: No Labs: CBC, BMP 08/25/16 06:00 INR, PTT INR 1.43 (0.82-1.09) H 08/23/16 13:16 Assessment/Plan Problem List - Problems (1) Anemia Code(s): D64.9 - ANEMIA, UNSPECIFIED Qualifiers: Anemia type: iron deficiency (2) Dehydration Code(s): E86.0 - DEHYDRATION (3) Hypotension Code(s): I95.9 - HYPOTENSION, UNSPECIFIED Qualifiers: Hypotension type: unspecified hypotension type Qualified Code(s): I95.9 - Hypotension, unspecified (4) AICD (automatic cardioverter/defibrillator) present Code(s): Z95.810 - PRESENCE OF AUTOMATIC (IMPLANTABLE) CARDIAC DEFIBRILLATOR (5) Altered mental status Code(s): R41.82 - ALTERED MENTAL STATUS, UNSPECIFIED Qualifiers: Altered mental status type: unspecified Qualified Code(s): R41.82 - Altered mental status, unspecified (6) COPD (chronic obstructive pulmonary disease) Code(s): J44.9 - CHRONIC OBSTRUCTIVE PULMONARY DISEASE, UNSPECIFIED (7) Chronic respiratory failure Code(s): J96.10 - CHRONIC RESPIRATORY FAILURE, UNSP W HYPOXIA OR HYPERCAPNIA Qualifiers: Respiratory failure complication: hypercapnia Qualified Code(s): J96.12 - Chronic respiratory failure with hypercapnia (8) HTN (hypertension) Code(s): I10 - ESSENTIAL (PRIMARY) HYPERTENSION (9) PAF (paroxysmal atrial fibrillation) Code(s): I48.0 - PAROXYSMAL ATRIAL FIBRILLATION (10) Pleural effusion Code(s): J90 - PLEURAL EFFUSION, NOT ELSEWHERE CLASSIFIED (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
[2016-08-25] MEDS: DOCUSATE SODIUM 100 MG CAPSULE (FP) PO SCH (21:32)
[2016-08-25] MEDS: ATORVASTATIN CA 10 MG TABLET (FP) PO SCH (21:32)
[2016-08-26] MEDS ORDERED: PT OWN MED DRAWER 7, Y5N ONE ×7 (01:12→23:16)
[2016-08-26] MEDS: CEFEPIME 1 GM in DEXTROSE 5%-WATER - 100 ML IVPB SCH ×3 (02:08→18:43)
[2016-08-26] MEDS: IPRATROPIUM BR 0.02% 0.5 MG/2.5 ML VIAL.NEB. NEB SCH ×3 (06:39→18:07)
[2016-08-26] MEDS: CYPROHEPTADINE HCL 4 MG TABLET PO SCH ×2 (06:40→18:44)
[2016-08-26 07:39] LABS: BASOPHIL 0.6 % (0-2.0); EOSINOPHIL 2.6 % (0-4.5); MCH 27.9 pg (25.7-33.7); MCHC 32.2 g/dl (32.0-36.0); MEAN CELL VOLUME 86.8 fl (80-96); MEAN PLT VOLUME 8.6 fl (7.5-11.1); NEUTROPHILS 67.9 % (42.8-82.8); PLATELET COUNT 202 K/MM3 (134-434); WHITE BLOOD COUNT 9.4 K/mm3 (4.0-10.0)
[2016-08-26 08:19] LABS: ALBUMIN 3.3 g/dl (3.4-5.0); ANION GAP 11 (8-16); CALCIUM 8.8 mg/dL (8.5-10.1); CO2 31 mmol/L (21-32); GLUCOSE,RANDOM 84 mg/dL (74-106); SGOT/AST 12 U/L (15-37); SGPT/ALT 15 U/L (12-78)
[2016-08-26 08:21] LABS: ALK PHOS 58 U/L (45-117); BILIRUBIN,TOTAL 0.4 mg/dL (0.2-1.0); CREATININE 0.7 mg/dL (0.55-1.02); TOT PROT 6.3 g/dl (6.4-8.2)
--- NOTE | 2016-08-26 10:42 | PN ---
Progress Note, Physician History of Present Illness: More awake and alert Denies pain Breathing non-labored Afebrile WBC WNL - Current Medication List Current Medications: Active Medications Acetaminophen (Tylenol -) 650 mg PO Q4H PRN PRN Reason: HEADACHE/TEMP > 100.6 Albuterol/Ipratropium (Duoneb -) 1 amp NEB Q4H PRN PRN Reason: SHORTNESS OF BREATH Artificial Tears (Artificial Tears) 1 drop OU BID [facility] Last Admin: 08/25/16 21:33 Dose: 1 drp Ascorbic Acid (Vitamin C -) 500 mg PO DAILY [facility] Last Admin: 08/25/16 09:38 Dose: 500 mg Atorvastatin Calcium (Lipitor -) 10 mg PO HS [facility] Last Admin: 08/25/16 21:32 Dose: 10 mg Bacitracin (Bacitracin -) 1 applic TP DAILY [facility] Last Admin: 08/25/16 09:40 Dose: Not Given Clonazepam (Klonopin -) 0.5 mg PO BID PRN PRN Reason: ANXIETY Last Admin: 08/25/16 21:34 Dose: 0.5 mg Cyproheptadine HCl (Periactin -) 4 mg PO Q12H [facility] Last Admin: 08/26/16 06:40 Dose: 4 mg Docusate Sodium (Colace -) 300 mg PO HS [facility] Last Admin: 08/25/16 21:32 Dose: 300 mg Ferrous Sulfate (Feosol -) 325 mg PO BID [facility] Last Admin: 08/25/16 21:32 Dose: 325 mg Cefepime HCl 1 gm/ Dextrose 100 mls @ 200 mls/hr IVPB Q8H-IV [facility] Last Admin: 08/26/16 02:08 Dose: 200 mls/hr Ipratropium [place] (Atrovent 0.02% Nebulizer -) 1 amp NEB QIDR [facility] Last Admin: 08/26/16 06:39 Dose: 1 amp Loratadine (Claritin -) 10 mg PO DAILY [facility] Last Admin: 08/25/16 09:39 Dose: 10 mg Multivitamins/Minerals/Vitamin C (Tab-A-Vit -) 1 tab PO DAILY [facility] Last Admin: 08/25/16 09:38 Dose: 1 tab Pantoprazole Sodium (Protonix -) 20 mg PO DAILY [facility] Last Admin: 08/25/16 09:38 Dose: 20 mg Prednisone (Deltasone -) 20 mg PO DAILY [facility] Last Admin: 08/25/16 09:39 Dose: 20 mg Ranitidine HCl (Zantac -) 150 mg PO DAILY [facility] Last Admin: 08/25/16 09:39 Dose: 150 mg Rivaroxaban (Xarelto -) 20 mg PO DAILY [facility] Last Admin: 08/25/16 09:38 Dose: 20 mg - Objective Vital Signs: Vital Signs Temperature 98.8 F 08/26/16 06:00 Pulse Rate 64 08/26/16 06:00 Respiratory Rate 15 08/26/16 06:50 Blood Pressure 115/53 08/26/16 06:00 O2 Sat by Pulse Oximetry (%) 98 08/26/16 02:00 Constitutional: Yes: Cachectic Eyes: Yes: Conjunctiva Clear Cardiovascular: Yes: Regular Rate and Rhythm, S1, S2 Respiratory: Yes: Diminished Gastrointestinal: Yes: Normal Bowel Sounds, Soft. No: Tenderness Edema: No Labs: CBC, BMP 08/26/16 06:15 08/26/16 06:15 INR, PTT INR 1.43 (0.82-1.09) H 08/23/16 13:16 Assessment/Plan S/P hypotension/ altered mental status- possible sepsis-improved L pleural effusion , possible pneumonia + Urine c/s VRE -probable contaminant Continue cefepime Day # 3 antibiotics- continue IV antibiotics additional 24-48hr Contact precautions
[2016-08-26] MEDS: ASCORBIC ACID 500 MG TABLET (FP) PO SCH (11:19)
[2016-08-26] MEDS: predniSONE 20 MG TABLET (UD) PO SCH (11:19)
[2016-08-26] MEDS: MULTIVITAMINS (DAILY MVI) TABLET (FP) PO SCH (11:19)
[2016-08-26] MEDS: PANTOPRAZOLE 20 MG TABLET (FP) PO SCH (11:19)
[2016-08-26] MEDS: RANITIDINE HCL 150 MG TABLET (FP) PO SCH (11:20)
[2016-08-26] MEDS: FERROUS SO4 325 MG TABLET (FP) PO SCH ×2 (11:21→23:17)
[2016-08-26] MEDS: RIVAROXABAN 20 MG TABLET PO SCH (11:21)
[2016-08-26] MEDS: ARTIFICIAL TEARS (POLYVINYL ALCOHOL 1.4%) OPTH DROPS OU SCH ×2 (11:21→23:18)
[2016-08-26] MEDS: LORATADINE 10 MG TABLET PO SCH (11:22)
--- NOTE | 2016-08-26 11:33 | PN ---
Progress Note (short form) - Note Progress Note: Awake on AC mode of vent, 35% FiO2. No acute events overnight. Intake & Output 08/23/16 08/24/16 08/25/16 08/26/16 23:59 23:59 23:59 23:59 Intake Total 1120 820 950 300 Output Total 250 200 Balance 870 620 950 300 Weight 130 lb 109 lb 3.2 oz Last Vital Signs Temp Pulse Resp BP Pulse Ox 98.4 F 76 12 109/66 98 08/26/16 11:13 08/26/16 11:13 08/26/16 11:13 08/26/16 11:13 08/26/16 02:00 Active Medications Acetaminophen (Tylenol -) 650 mg PO Q4H PRN PRN Reason: HEADACHE/TEMP > 100.6 Albuterol/Ipratropium (Duoneb -) 1 amp NEB Q4H PRN PRN Reason: SHORTNESS OF BREATH Artificial Tears (Artificial Tears) 1 drop OU BID [facility] Last Admin: 08/26/16 11:21 Dose: 1 drp Ascorbic Acid (Vitamin C -) 500 mg PO DAILY [facility] Last Admin: 08/26/16 11:19 Dose: 500 mg Atorvastatin Calcium (Lipitor -) 10 mg PO HS [facility] Last Admin: 08/25/16 21:32 Dose: 10 mg Bacitracin (Bacitracin -) 1 applic TP DAILY [facility] Last Admin: 08/25/16 09:40 Dose: Not Given Clonazepam (Klonopin -) 0.5 mg PO BID PRN PRN Reason: ANXIETY Last Admin: 08/25/16 21:34 Dose: 0.5 mg Cyproheptadine HCl (Periactin -) 4 mg PO Q12H [facility] Last Admin: 08/26/16 06:40 Dose: 4 mg Docusate Sodium (Colace -) 300 mg PO HS [facility] Last Admin: 08/25/16 21:32 Dose: 300 mg Ferrous Sulfate (Feosol -) 325 mg PO BID [facility] Last Admin: 08/26/16 11:21 Dose: 325 mg Cefepime HCl 1 gm/ Dextrose 100 mls @ 200 mls/hr IVPB Q8H-IV [facility] Last Admin: 08/26/16 11:26 Dose: 200 mls/hr Ipratropium [place] (Atrovent 0.02% Nebulizer -) 1 amp NEB QIDR [facility] Last Admin: 08/26/16 06:39 Dose: 1 amp Loratadine (Claritin -) 10 mg PO DAILY [facility] Last Admin: 08/26/16 11:22 Dose: 10 mg Multivitamins/Minerals/Vitamin C (Tab-A-Vit -) 1 tab PO DAILY [facility] Last Admin: 08/26/16 11:19 Dose: 1 tab Pantoprazole Sodium (Protonix -) 20 mg PO DAILY [facility] Last Admin: 08/26/16 11:19 Dose: 20 mg Prednisone (Deltasone -) 20 mg PO DAILY [facility] Last Admin: 08/26/16 11:19 Dose: 20 mg Ranitidine HCl (Zantac -) 150 mg PO DAILY [facility] Last Admin: 08/26/16 11:20 Dose: 150 mg Rivaroxaban (Xarelto -) 20 mg PO DAILY [facility] Last Admin: 08/26/16 11:21 Dose: 20 mg Constitutional: Yes: NAD, Thin Eyes: Yes: WNL HENT: Yes: WNL Neck: Yes: Supple (trach) Cardiovascular: Yes: Pulse Irregular, S1, S2 Respiratory: Yes: Diminished, few rhonchi Gastrointestinal: Yes: Normal Bowel Sounds, Soft Extremities: Yes: WNL Edema: No Labs: Laboratory Results - last 24 hr 08/26/16 08/26/16 06:15 06:15 WBC 9.4 RBC 3.90 Hgb 10.9 Hct 33.8 MCV 86.8 MCHC 32.2 RDW 15.0 Plt Count 202 MPV 8.6 Neutrophils % 67.9 Lymphocytes % 19.0 D Monocytes % 9.9 Eosinophils % 2.6 D Basophils % 0.6 Sodium 145 Potassium 3.3 L Chloride 103 Carbon Dioxide 31 Anion Gap 11 BUN 27 H Creatinine 0.7 Creat Clearance w eGFR > 60 Random Glucose 84 D Calcium 8.8 Total Bilirubin 0.4 AST 12 L ALT 15 Alkaline Phosphatase 58 Total Protein 6.3 L Albumin 3.3 L Assessment/Plan Problem List - Problems (1) Anemia Code(s): D64.9 - ANEMIA, UNSPECIFIED Qualifiers: Anemia type: iron deficiency (2) Dehydration Code(s): E86.0 - DEHYDRATION (3) Hypotension Code(s): I95.9 - HYPOTENSION, UNSPECIFIED Qualifiers: Hypotension type: unspecified hypotension type Qualified Code(s): I95.9 - Hypotension, unspecified (4) AICD (automatic cardioverter/defibrillator) present Code(s): Z95.810 - PRESENCE OF AUTOMATIC (IMPLANTABLE) CARDIAC DEFIBRILLATOR (5) Altered mental status Code(s): R41.82 - ALTERED MENTAL STATUS, UNSPECIFIED Qualifiers: Altered mental status type: unspecified Qualified Code(s): R41.82 - Altered mental status, unspecified (6) COPD (chronic obstructive pulmonary disease) Code(s): J44.9 - CHRONIC OBSTRUCTIVE PULMONARY DISEASE, UNSPECIFIED (7) Chronic respiratory failure Code(s): J96.10 - CHRONIC RESPIRATORY FAILURE, UNSP W HYPOXIA OR HYPERCAPNIA Qualifiers: Respiratory failure complication: hypercapnia Qualified Code(s): J96.12 - Chronic respiratory failure with hypercapnia (8) HTN (hypertension) Code(s): I10 - ESSENTIAL (PRIMARY) HYPERTENSION (9) PAF (paroxysmal atrial fibrillation) Code(s): I48.0 - PAROXYSMAL ATRIAL FIBRILLATION (10) Pleural effusion Code(s): J90 - PLEURAL EFFUSION, NOT ELSEWHERE CLASSIFIED (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 Assessment/Plan Current vent settings Wean as tolerated ABX per ID VTE prophylaxis Prednisone Dr [place] Problem List - Problems (1) Anemia Code(s): D64.9 - ANEMIA, UNSPECIFIED Qualifiers: Anemia type: iron deficiency (2) Dehydration Code(s): E86.0 - DEHYDRATION (3) Hypotension Code(s): I95.9 - HYPOTENSION, UNSPECIFIED Qualifiers: Hypotension type: unspecified hypotension type Qualified Code(s): I95.9 - Hypotension, unspecified (4) AICD (automatic cardioverter/defibrillator) present Code(s): Z95.810 - PRESENCE OF AUTOMATIC (IMPLANTABLE) CARDIAC DEFIBRILLATOR (5) Altered mental status Code(s): R41.82 - ALTERED MENTAL STATUS, UNSPECIFIED Qualifiers: Altered mental status type: unspecified Qualified Code(s): R41.82 - Altered mental status, unspecified (6) COPD (chronic obstructive pulmonary disease) Code(s): J44.9 - CHRONIC OBSTRUCTIVE PULMONARY DISEASE, UNSPECIFIED (7) Chronic respiratory failure Code(s): J96.10 - CHRONIC RESPIRATORY FAILURE, UNSP W HYPOXIA OR HYPERCAPNIA Qualifiers: Respiratory failure complication: hypercapnia Qualified Code(s): J96.12 - Chronic respiratory failure with hypercapnia (8) HTN (hypertension) Code(s): I10 - ESSENTIAL (PRIMARY) HYPERTENSION (9) PAF (paroxysmal atrial fibrillation) Code(s): I48.0 - PAROXYSMAL ATRIAL FIBRILLATION (10) Pleural effusion Code(s): J90 - PLEURAL EFFUSION, NOT ELSEWHERE CLASSIFIED (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
--- NOTE | 2016-08-26 11:50 | PN ---
Progress Note, Physician - Current Medication List Current Medications: Active Medications Acetaminophen (Tylenol -) 650 mg PO Q4H PRN PRN Reason: HEADACHE/TEMP > 100.6 Albuterol/Ipratropium (Duoneb -) 1 amp NEB Q4H PRN PRN Reason: SHORTNESS OF BREATH Artificial Tears (Artificial Tears) 1 drop OU BID [facility] Last Admin: 08/26/16 11:21 Dose: 1 drp Ascorbic Acid (Vitamin C -) 500 mg PO DAILY [facility] Last Admin: 08/26/16 11:19 Dose: 500 mg Atorvastatin Calcium (Lipitor -) 10 mg PO HS [facility] Last Admin: 08/25/16 21:32 Dose: 10 mg Bacitracin (Bacitracin -) 1 applic TP DAILY [facility] Last Admin: 08/25/16 09:40 Dose: Not Given Clonazepam (Klonopin -) 0.5 mg PO BID PRN PRN Reason: ANXIETY Last Admin: 08/25/16 21:34 Dose: 0.5 mg Cyproheptadine HCl (Periactin -) 4 mg PO Q12H [facility] Last Admin: 08/26/16 06:40 Dose: 4 mg Docusate Sodium (Colace -) 300 mg PO HS [facility] Last Admin: 08/25/16 21:32 Dose: 300 mg Ferrous Sulfate (Feosol -) 325 mg PO BID [facility] Last Admin: 08/26/16 11:21 Dose: 325 mg Cefepime HCl 1 gm/ Dextrose 100 mls @ 200 mls/hr IVPB Q8H-IV [facility] Last Admin: 08/26/16 11:26 Dose: 200 mls/hr Ipratropium [place] (Atrovent 0.02% Nebulizer -) 1 amp NEB QIDR [facility] Last Admin: 08/26/16 11:43 Dose: 1 amp Loratadine (Claritin -) 10 mg PO DAILY [facility] Last Admin: 08/26/16 11:22 Dose: 10 mg Multivitamins/Minerals/Vitamin C (Tab-A-Vit -) 1 tab PO DAILY [facility] Last Admin: 08/26/16 11:19 Dose: 1 tab Pantoprazole Sodium (Protonix -) 20 mg PO DAILY [facility] Last Admin: 08/26/16 11:19 Dose: 20 mg Prednisone (Deltasone -) 20 mg PO DAILY [facility] Last Admin: 08/26/16 11:19 Dose: 20 mg Ranitidine HCl (Zantac -) 150 mg PO DAILY [facility] Last Admin: 08/26/16 11:20 Dose: 150 mg Rivaroxaban (Xarelto -) 20 mg PO DAILY [facility] Last Admin: 08/26/16 11:21 Dose: 20 mg - Objective Vital Signs: Vital Signs Temperature 98.4 F 08/26/16 11:13 Pulse Rate 76 08/26/16 11:13 Respiratory Rate 12 08/26/16 11:13 Blood Pressure 109/66 08/26/16 11:13 O2 Sat by Pulse Oximetry (%) 98 08/26/16 02:00 Cardiovascular: Yes: S1, S2 Respiratory: Yes: CTA Bilaterally Gastrointestinal: Yes: Normal Bowel Sounds, Soft Edema: No Labs: CBC, BMP 08/26/16 06:15 08/26/16 06:15 INR, PTT INR 1.43 (0.82-1.09) H 08/23/16 13:16 Problem List - Problems (1) Pleural effusion Code(s): J90 - PLEURAL EFFUSION, NOT ELSEWHERE CLASSIFIED (2) Anemia Code(s): D64.9 - ANEMIA, UNSPECIFIED Qualifiers: Anemia type: iron deficiency (3) Chronic respiratory failure Code(s): J96.10 - CHRONIC RESPIRATORY FAILURE, UNSP W HYPOXIA OR HYPERCAPNIA Qualifiers: Respiratory failure complication: hypercapnia Qualified Code(s): J96.12 - Chronic respiratory failure with hypercapnia (4) Hypotension Code(s): I95.9 - HYPOTENSION, UNSPECIFIED Qualifiers: Hypotension type: unspecified hypotension type Qualified Code(s): I95.9 - Hypotension, unspecified (5) PAF (paroxysmal atrial fibrillation) Code(s): I48.0 - PAROXYSMAL ATRIAL FIBRILLATION (6) UTI (urinary tract infection) Code(s): N39.0 - URINARY TRACT INFECTION, SITE NOT SPECIFIED Qualifiers: Urinary tract infection type: site unspecified Hematuria presence: without hematuria Qualified Code(s): N39.0 - Urinary tract infection, site not specified Assessment/Plan (1) Hypotension Assessment/Plan: maybe sec to uti vs low voume status ID on case r/o sepsis ucx +ana iv abx Code(s): I95.9 - HYPOTENSION, UNSPECIFIED Qualifiers: Hypotension type: unspecified hypotension type Qualified Code(s): I95.9 - Hypotension, unspecified (2) Pleural effusion Assessment/Plan: chronic id on case iv abx Code(s): J90 - PLEURAL EFFUSION, NOT ELSEWHERE CLASSIFIED (3) PAF (paroxysmal atrial fibrillation) Assessment/Plan: xarelto Code(s): I48.0 - PAROXYSMAL ATRIAL FIBRILLATION (4) Chronic respiratory failure Assessment/Plan: vent support ent & pulm on case trach changed bronchodilators prednsione Code(s): J96.10 - CHRONIC RESPIRATORY FAILURE, UNSP W HYPOXIA OR HYPERCAPNIA Qualifiers: Respiratory failure complication: hypercapnia Qualified Code(s): J96.12 - Chronic respiratory failure with hypercapnia (5) Anemia Assessment/Plan: ferrous sulfate Code(s): D64.9 - ANEMIA, UNSPECIFIED Qualifiers: Anemia type: iron deficiency (6) UTI (urinary tract infection) Code(s): N39.0 - URINARY TRACT INFECTION, SITE NOT SPECIFIED Qualifiers: Urinary tract infection type: site unspecified Hematuria presence: without hematuria Qualified Code(s): N39.0 - Urinary tract infection, site not specified appreciate id consult -> Urine c/s VRE -probable contaminant [employer]
[2016-08-26] MEDS ORDERED: POTASSIUM CHLORIDE TABS 20 MEQ TABLET.ER (FP) PO ONE (12:30)
[2016-08-26] MEDS: BACITRACIN 30 GM TUBE TOPICAL OINTMENT TP SCH (15:10)
[2016-08-26] MEDS: ATORVASTATIN CA 10 MG TABLET (FP) PO SCH (23:18)
[2016-08-26] MEDS: DOCUSATE SODIUM 100 MG CAPSULE (FP) PO SCH (23:18)
[2016-08-27] MEDS: IPRATROPIUM BR 0.02% 0.5 MG/2.5 ML VIAL.NEB. NEB SCH ×3 (00:15→11:24)
[2016-08-27] MEDS ORDERED: PT OWN MED DRAWER 7, Y5N ONE ×5 (02:16→21:14)
[2016-08-27] MEDS: CEFEPIME 1 GM in DEXTROSE 5%-WATER - 100 ML IVPB SCH ×3 (02:28→17:23)
[2016-08-27] MEDS: CYPROHEPTADINE HCL 4 MG TABLET PO SCH ×2 (06:12→17:31)
--- NOTE | 2016-08-27 09:20 | PN ---
Progress Note, Physician Chief Complaint: WAKES UP WITH STIMULATION - Current Medication List Current Medications: Active Medications Acetaminophen (Tylenol -) 650 mg PO Q4H PRN PRN Reason: HEADACHE/TEMP > 100.6 Albuterol/Ipratropium (Duoneb -) 1 amp NEB Q4H PRN PRN Reason: SHORTNESS OF BREATH Artificial Tears (Artificial Tears) 1 drop OU BID [facility] Last Admin: 08/26/16 23:18 Dose: 1 drp Ascorbic Acid (Vitamin C -) 500 mg PO DAILY [facility] Last Admin: 08/26/16 11:19 Dose: 500 mg Atorvastatin Calcium (Lipitor -) 10 mg PO HS [facility] Last Admin: 08/26/16 23:18 Dose: 10 mg Bacitracin (Bacitracin -) 1 applic TP DAILY [facility] Last Admin: 08/26/16 15:10 Dose: Not Given Cyproheptadine HCl (Periactin -) 4 mg PO Q12H [facility] Last Admin: 08/27/16 06:12 Dose: 4 mg Docusate Sodium (Colace -) 300 mg PO [facility] Last Admin: 08/26/16 23:18 Dose: 300 mg Ferrous Sulfate (Feosol -) 325 mg PO BID [facility] Last Admin: 08/26/16 23:17 Dose: 325 mg Cefepime HCl 1 gm/ Dextrose 100 mls @ 200 mls/hr IVPB Q8H-IV [facility] Last Admin: 08/27/16 02:28 Dose: 200 mls/hr Ipratropium [place] (Atrovent 0.02% Nebulizer -) 1 amp NEB QIDR [facility] Last Admin: 08/27/16 06:19 Dose: 1 amp Loratadine (Claritin -) 10 mg PO DAILY [facility] Last Admin: 08/26/16 11:22 Dose: 10 mg Multivitamins/Minerals/Vitamin C (Tab-A-Vit -) 1 tab PO DAILY [facility] Last Admin: 08/26/16 11:19 Dose: 1 tab Pantoprazole Sodium (Protonix -) 20 mg PO DAILY [facility] Last Admin: 08/26/16 11:19 Dose: 20 mg Prednisone (Deltasone -) 20 mg PO DAILY [facility] Last Admin: 08/26/16 11:19 Dose: 20 mg Ranitidine HCl (Zantac -) 150 mg PO DAILY [facility] Last Admin: 02/04/17 11:20 Dose: 150 mg Rivaroxaban (Xarelto -) 20 mg PO DAILY [facility] Last Admin: 08/26/16 11:21 Dose: 20 mg - Objective Vital Signs: Vital Signs Temperature 98.8 F 08/27/16 07:00 Pulse Rate 89 08/27/16 07:00 Respiratory Rate 14 08/27/16 07:16 Blood Pressure 135/75 08/27/16 07:00 O2 Sat by Pulse Oximetry (%) 97 08/26/16 11:00 Cardiovascular: Yes: Regular Rate and Rhythm, S1, S2 Respiratory: Yes: CTA Bilaterally Gastrointestinal: Yes: Normal Bowel Sounds, Soft Edema: No Labs: CBC, BMP 08/26/16 06:15 08/26/16 06:15 INR, PTT INR 1.43 (0.82-1.09) H 08/23/16 13:16 Problem List - Problems (1) Pleural effusion Code(s): J90 - PLEURAL EFFUSION, NOT ELSEWHERE CLASSIFIED (2) Anemia Code(s): D64.9 - ANEMIA, UNSPECIFIED Qualifiers: Anemia type: iron deficiency (3) Chronic respiratory failure Code(s): J96.10 - CHRONIC RESPIRATORY FAILURE, UNSP W HYPOXIA OR HYPERCAPNIA Qualifiers: Respiratory failure complication: hypercapnia Qualified Code(s): J96.12 - Chronic respiratory failure with hypercapnia (4) Hypotension Code(s): I95.9 - HYPOTENSION, UNSPECIFIED Qualifiers: Hypotension type: unspecified hypotension type Qualified Code(s): I95.9 - Hypotension, unspecified (5) PAF (paroxysmal atrial fibrillation) Code(s): I48.0 - PAROXYSMAL ATRIAL FIBRILLATION (6) UTI (urinary tract infection) Code(s): N39.0 - URINARY TRACT INFECTION, SITE NOT SPECIFIED Qualifiers: Urinary tract infection type: site unspecified Hematuria presence: without hematuria Qualified Code(s): N39.0 - Urinary tract infection, site not specified Assessment/Plan (1) Hypotension Assessment/Plan: maybe sec to uti vs low voume status ID on case r/o sepsis ucx +ana iv abx Code(s): I95.9 - HYPOTENSION, UNSPECIFIED Qualifiers: Hypotension type: unspecified hypotension type Qualified Code(s): I95.9 - Hypotension, unspecified (2) Pleural effusion Assessment/Plan: chronic id on case iv abx Code(s): J90 - PLEURAL EFFUSION, NOT ELSEWHERE CLASSIFIED (3) PAF (paroxysmal atrial fibrillation) Assessment/Plan: xarelto Code(s): I48.0 - PAROXYSMAL ATRIAL FIBRILLATION (4) Chronic respiratory failure Assessment/Plan: vent support ent & pulm on case trach changed bronchodilators prednsione Code(s): J96.10 - CHRONIC RESPIRATORY FAILURE, UNSP W HYPOXIA OR HYPERCAPNIA Qualifiers: Respiratory failure complication: hypercapnia Qualified Code(s): J96.12 - Chronic respiratory failure with hypercapnia (5) Anemia Assessment/Plan: ferrous sulfate Code(s): D64.9 - ANEMIA, UNSPECIFIED Qualifiers: Anemia type: iron deficiency (6) UTI (urinary tract infection) Code(s): N39.0 - URINARY TRACT INFECTION, SITE NOT SPECIFIED Qualifiers: Urinary tract infection type: site unspecified Hematuria presence: without hematuria Qualified Code(s): N39.0 - Urinary tract infection, site not specified appreciate id consult -> Urine c/s VRE -probable contaminant PASTOR SESAY
[2016-08-27] MEDS: FERROUS SO4 325 MG TABLET (FP) PO SCH ×2 (10:12→21:23)
[2016-08-27] MEDS: predniSONE 20 MG TABLET (UD) PO SCH (10:12)
[2016-08-27] MEDS: ASCORBIC ACID 500 MG TABLET (FP) PO SCH (10:12)
[2016-08-27] MEDS: PANTOPRAZOLE 20 MG TABLET (FP) PO SCH (10:12)
[2016-08-27] MEDS: RANITIDINE HCL 150 MG TABLET (FP) PO SCH (10:12)
[2016-08-27] MEDS: ARTIFICIAL TEARS (POLYVINYL ALCOHOL 1.4%) OPTH DROPS OU SCH ×2 (10:12→21:23)
[2016-08-27] MEDS: RIVAROXABAN 20 MG TABLET PO SCH (10:12)
[2016-08-27] MEDS: MULTIVITAMINS (DAILY MVI) TABLET (FP) PO SCH (10:12)
[2016-08-27] MEDS: LORATADINE 10 MG TABLET PO SCH (10:13)
[2016-08-27] MEDS: BACITRACIN 30 GM TUBE TOPICAL OINTMENT TP SCH (11:08)
[2016-08-27] MEDS ORDERED: ACETAMINOPHEN 325 MG TABLET (FP) PO PRN (12:38)
--- NOTE | 2016-08-27 12:44 | PN ---
Progress Note (short form) - Note Progress Note: Lethargic on AC mode of vent, 35% FiO2. Intake & Output 08/24/16 08/25/16 08/26/16 08/27/16 23:59 23:59 23:59 23:59 Intake Total 820 950 450 100 Output Total 200 Balance 620 950 450 100 Weight 109 lb 3.2 oz Last Vital Signs Temp Pulse Resp BP Pulse Ox 99.0 F 71 12 125/77 97 08/27/16 09:00 08/27/16 11:00 08/27/16 11:00 08/27/16 11:00 08/26/16 11:00 Active Medications Acetaminophen (Tylenol -) 650 mg PO Q6H PRN PRN Reason: HEADACHE/TEMP > 100.6 Albuterol/Ipratropium (Duoneb -) 1 amp NEB Q4H PRN PRN Reason: SHORTNESS OF BREATH Artificial Tears (Artificial Tears) 1 drop OU BID [facility] Last Admin: 08/27/16 10:12 Dose: 1 drp Ascorbic Acid (Vitamin C -) 500 mg PO DAILY [facility] Last Admin: 08/27/16 10:12 Dose: 500 mg Atorvastatin Calcium (Lipitor -) 10 mg PO HS [facility] Last Admin: 08/26/16 23:18 Dose: 10 mg Bacitracin (Bacitracin -) 1 applic TP DAILY [facility] Last Admin: 08/27/16 11:08 Dose: 1 applic Cyproheptadine HCl (Periactin -) 4 mg PO Q12H [facility] Last Admin: 08/27/16 06:12 Dose: 4 mg Docusate Sodium (Colace -) 300 mg PO HS [facility] Last Admin: 08/26/16 23:18 Dose: 300 mg Ferrous Sulfate (Feosol -) 325 mg PO BID [facility] Last Admin: 08/27/16 10:12 Dose: 325 mg Cefepime HCl 1 gm/ Dextrose 100 mls @ 200 mls/hr IVPB Q8H-IV [facility] Last Admin: 08/27/16 10:13 Dose: 200 mls/hr Multivitamins/Minerals/Vitamin C (Tab-A-Vit -) 1 tab PO DAILY [facility] Last Admin: 08/27/16 10:12 Dose: 1 tab Pantoprazole Sodium (Protonix -) 20 mg PO DAILY [facility] Last Admin: 08/27/16 10:12 Dose: 20 mg Prednisone (Deltasone -) 20 mg PO DAILY [facility] Last Admin: 08/27/16 10:12 Dose: 20 mg Ranitidine HCl (Zantac -) 150 mg PO DAILY [facility] Last Admin: 08/27/16 10:12 Dose: 150 mg Rivaroxaban (Xarelto -) 20 mg PO DAILY [facility] Last Admin: 08/27/16 10:12 Dose: 20 mg Constitutional: Yes: Lethargic, NAD, Thin Eyes: Yes: WNL HENT: Yes: WNL Neck: Yes: Supple (trach) Cardiovascular: Yes: Pulse Irregular, S1, S2 Respiratory: Yes: Diminished, few rhonchi Gastrointestinal: Yes: Normal Bowel Sounds, Soft Extremities: Yes: WNL Edema: No Labs: Laboratory Results - last 24 hr 08/27/16 12:15 POC Glucometer 93 Assessment/Plan Problem List - Problems (1) Anemia Code(s): D64.9 - ANEMIA, UNSPECIFIED Qualifiers: Anemia type: iron deficiency (2) Dehydration Code(s): E86.0 - DEHYDRATION (3) Hypotension Code(s): I95.9 - HYPOTENSION, UNSPECIFIED Qualifiers: Hypotension type: unspecified hypotension type Qualified Code(s): I95.9 - Hypotension, unspecified (4) AICD (automatic cardioverter/defibrillator) present Code(s): Z95.810 - PRESENCE OF AUTOMATIC (IMPLANTABLE) CARDIAC DEFIBRILLATOR (5) Altered mental status Code(s): R41.82 - ALTERED MENTAL STATUS, UNSPECIFIED Qualifiers: Altered mental status type: unspecified Qualified Code(s): R41.82 - Altered mental status, unspecified (6) COPD (chronic obstructive pulmonary disease) Code(s): J44.9 - CHRONIC OBSTRUCTIVE PULMONARY DISEASE, UNSPECIFIED (7) Chronic respiratory failure Code(s): J96.10 - CHRONIC RESPIRATORY FAILURE, UNSP W HYPOXIA OR HYPERCAPNIA Qualifiers: Respiratory failure complication: hypercapnia Qualified Code(s): J96.12 - Chronic respiratory failure with hypercapnia (8) HTN (hypertension) Code(s): I10 - ESSENTIAL (PRIMARY) HYPERTENSION (9) PAF (paroxysmal atrial fibrillation) Code(s): I48.0 - PAROXYSMAL ATRIAL FIBRILLATION (10) Pleural effusion Code(s): J90 - PLEURAL EFFUSION, NOT ELSEWHERE CLASSIFIED (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 Assessment/Plan Check ABG Labs to be sent Current vent settings for now Wean as tolerated ABX per ID VTE prophylaxis Prednisone Dr [place] Problem List - Problems (1) Anemia Code(s): D64.9 - ANEMIA, UNSPECIFIED Qualifiers: Anemia type: iron deficiency (2) Dehydration Code(s): E86.0 - DEHYDRATION (3) Hypotension Code(s): I95.9 - HYPOTENSION, UNSPECIFIED Qualifiers: Hypotension type: unspecified hypotension type Qualified Code(s): I95.9 - Hypotension, unspecified (4) AICD (automatic cardioverter/defibrillator) present Code(s): Z95.810 - PRESENCE OF AUTOMATIC (IMPLANTABLE) CARDIAC DEFIBRILLATOR (5) Altered mental status Code(s): R41.82 - ALTERED MENTAL STATUS, UNSPECIFIED Qualifiers: Altered mental status type: unspecified Qualified Code(s): R41.82 - Altered mental status, unspecified (6) COPD (chronic obstructive pulmonary disease) Code(s): J44.9 - CHRONIC OBSTRUCTIVE PULMONARY DISEASE, UNSPECIFIED (7) Chronic respiratory failure Code(s): J96.10 - CHRONIC RESPIRATORY FAILURE, UNSP W HYPOXIA OR HYPERCAPNIA Qualifiers: Respiratory failure complication: hypercapnia Qualified Code(s): J96.12 - Chronic respiratory failure with hypercapnia (8) HTN (hypertension) Code(s): I10 - ESSENTIAL (PRIMARY) HYPERTENSION (9) PAF (paroxysmal atrial fibrillation) Code(s): I48.0 - PAROXYSMAL ATRIAL FIBRILLATION (10) Pleural effusion Code(s): J90 - PLEURAL EFFUSION, NOT ELSEWHERE CLASSIFIED (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
[2016-08-27 14:13] LABS: ARTERIAL BLD GAS O2 SATURATION 97.5 % (90-98.9); ARTERIAL BLOOD GAS HCO3 28.9 meq/L (22-26); ARTERIAL BLOOD GAS pH 7.46 (7.35-7.45)
[2016-08-27 14:14] LABS: ALLENS TEST POSITIVE; ART PUNCT SITE RIGHT RADIAL; LPM/O2% 35%; PT. ON O2? YES; TYPE OF O2 MECH VENT
[2016-08-27 14:15] LABS: MECH. VENT. YES; VENT RATE 12; VT/PRESS 450
[2016-08-27] MEDS: DOCUSATE SODIUM 100 MG CAPSULE (FP) PO SCH (21:23)
[2016-08-27] MEDS: ATORVASTATIN CA 10 MG TABLET (FP) PO SCH (21:24)
[2016-08-28] MEDS ORDERED: PT OWN MED DRAWER 7, Y5N ONE ×4 (01:48→20:46)
[2016-08-28] MEDS: CEFEPIME 1 GM in DEXTROSE 5%-WATER - 100 ML IVPB SCH ×2 (01:51→11:37)
[2016-08-28] MEDS: CYPROHEPTADINE HCL 4 MG TABLET PO SCH ×2 (06:09→21:18)
[2016-08-28 07:52] LABS: EOSINOPHIL 3.6 % (0-4.5); MCHC 32.6 g/dl (32.0-36.0); MEAN PLT VOLUME 8.9 fl (7.5-11.1); NEUTROPHILS 68.1 % (42.8-82.8); PLATELET COUNT 197 K/MM3 (134-434); WHITE BLOOD COUNT 9.9 K/mm3 (4.0-10.0)
[2016-08-28 08:26] LABS: ALBUMIN 3.2 g/dl (3.4-5.0); ANION GAP 11 (8-16); CALCIUM 9.1 mg/dL (8.5-10.1); CO2 31 mmol/L (21-32); GLUCOSE,RANDOM 76 mg/dL (74-106); SGOT/AST 12 U/L (15-37); SGPT/ALT 13 U/L (12-78)
[2016-08-28 08:27] LABS: ALK PHOS 58 U/L (45-117); BILIRUBIN,TOTAL 0.6 mg/dL (0.2-1.0); CREATININE 0.6 mg/dL (0.55-1.02); TOT PROT 6.2 g/dl (6.4-8.2)
--- NOTE | 2016-08-28 10:53 | DS ---
Physical Examination Vital Signs: Vital Signs Temperature 98.8 F 08/28/16 09:54 Pulse Rate 74 08/28/16 09:54 Respiratory Rate 12 08/28/16 09:54 Blood Pressure 145/68 08/28/16 09:54 O2 Sat by Pulse Oximetry (%) 98 08/27/16 09:00 Constitutional: Yes: Calm, Thin Neck: Yes: Other (trach) Cardiovascular: Yes: Pulse Irregular, S1, S2 Respiratory: Yes: Diminished (on left side), Mechanically Ventilated, Rhonchi Gastrointestinal: Yes: Normal Bowel Sounds, Soft, Other (g tube) Labs: CBC, BMP 08/28/16 06:05 08/28/16 06:05 Discharge Summary Reason For Visit: HYPOTENSION; DEHYDRATION Current Active Problems Anemia (Acute) Dehydration (Acute) Hypotension (Acute) Hospital Course: PCP: Jacky Cook - Admission Chief Complaint: sent for hypotension History of Present Illness: 81y F hx of anemia, htn, hl, copd s/p trach due to respiratory failure, chf, cardiac arrest in 1998, GIB, recent admission for uti, AMS, was found to be unresponsive by NH staff, and noted to be hypotensive to 70s/40s. EMS was called, and found to be the pt to intermittenly alert, but thought she may just be ignoring him, bp was at 100/70. On arrival the pt will open her eyes to my verbal command, and seems to be able to understand my questions by shaking/ nodding her head. Denies any headache, pain, sob, abd pain, n/v, fever. history limited as patient does not verbalize inER 74/48 and hr 104 temp 99.4 - Past Medical History Cardiovascular: Yes: AFIB (Paroxysmal), CHF, HTN, Hyperlipdemia, Other (h/o cardiac arrest s/p AICD) Pulmonary: Yes: COPD, Other (respiratory failure) Gastrointestinal: Yes: GERD ...: No hospital course: admitted for hypotension elevated WBC iv abx cefepime was given for 5 days trach was leaking changed and was the nchanged by ENT potassium repleted Condition: Guarded - Instructions Referrals: Royer Verduzco MD [Primary Care Provider] - Disposition: INTERMEDIATE FACILITY - Home Medications Comprehensive Discharge Medication List: Ambulatory Orders Simvastatin [Zocor -] 20 mg PO DAILY 05/24/12 Ascorbate Calcium [Vitamin C] 500 mg PO DAILY 01/20/16 Docusate Sodium 300 mg PO HS 01/20/16 Ferrous Sulfate 325 mg PO BID 01/20/16 Hypromellose 0.5% Opth Soln [Artificial Tears] 1 drop OU BID 01/20/16 Rivaroxaban [Xarelto -] 20 mg PO DAILY 01/20/16 Lactose-Reduced Food [Ensure Plus] 237 ml PO BID 04/15/16 Multivitamins [Multivit ([facility] Formulary)] 1 tab PO DAILY 04/15/16 Acetaminophen [Tylenol .Regular Strength -] 650 mg PO Q4H PRN #0 tablet Bacitracin - [Bacitracin Topical Ointment -] 1 applic TP DAILY #1 tube 04/21/16 Cyproheptadine [Periactin -] 4 mg PO Q12H 08/14/16 Ipratropium [place] 0.2 mg IH QID 08/14/16 Loratadine 10 mg PO DAILY 08/14/16 Omeprazole 20 mg PO DAILY 08/14/16 Ranitidine HCl [Zantac] 150 mg PO DAILY 08/14/16 Albuterol 2.5/Ipratropium 0.5 [Duoneb -] 1 amp NEB Q4H PRN #0 amp 08/22/16 Clonazepam [Klonopin -] 0.5 mg PO BID PRN #0 tablet MDD 2 08/22/16 Prednisone [Deltasone -] 20 mg PO DAILY tablet 08/22/16
[2016-08-28] MEDS: ARTIFICIAL TEARS (POLYVINYL ALCOHOL 1.4%) OPTH DROPS OU SCH ×2 (11:15→23:59)
[2016-08-28] MEDS: BACITRACIN 30 GM TUBE TOPICAL OINTMENT TP SCH (11:15)
[2016-08-28] MEDS ORDERED: POTASSIUM CHLORIDE 40 MEQ/30 ML UNIT DOSE CUP GT ONE (11:15)
[2016-08-28] MEDS: PANTOPRAZOLE 20 MG TABLET (FP) PO SCH (11:16)
[2016-08-28] MEDS: MULTIVITAMINS (DAILY MVI) TABLET (FP) PO SCH (11:16)
[2016-08-28] MEDS: FERROUS SO4 325 MG TABLET (FP) PO SCH ×2 (11:16→21:20)
[2016-08-28] MEDS: ASCORBIC ACID 500 MG TABLET (FP) PO SCH (11:16)
[2016-08-28] MEDS: predniSONE 20 MG TABLET (UD) PO SCH (11:16)
[2016-08-28] MEDS: RIVAROXABAN 20 MG TABLET PO SCH (11:16)
[2016-08-28] MEDS: RANITIDINE HCL 150 MG TABLET (FP) PO SCH (11:16)
--- NOTE | 2016-08-28 12:01 | PN ---
Progress Note (short form) - Note Progress Note: spoke to son concerned about how her apppetite was good in inital days of hosoital stay nad now she has no appetite explained to him it could be related to abx or constipation will check abdominal xray abx stopped completed course if xay is normal then dc to [facility] Problem List - Problems (1) Hypotension Code(s): I95.9 - HYPOTENSION, UNSPECIFIED Qualifiers: Hypotension type: unspecified hypotension type Qualified Code(s): I95.9 - Hypotension, unspecified (2) Pleural effusion Code(s): J90 - PLEURAL EFFUSION, NOT ELSEWHERE CLASSIFIED (3) PAF (paroxysmal atrial fibrillation) Code(s): I48.0 - PAROXYSMAL ATRIAL FIBRILLATION (4) Chronic respiratory failure Code(s): J96.10 - CHRONIC RESPIRATORY FAILURE, UNSP W HYPOXIA OR HYPERCAPNIA Qualifiers: Respiratory failure complication: hypercapnia Qualified Code(s): J96.12 - Chronic respiratory failure with hypercapnia (5) Anemia Code(s): D64.9 - ANEMIA, UNSPECIFIED Qualifiers: Anemia type: iron deficiency
[2016-08-28] MEDS ORDERED: POTASSIUM CHLORIDE 40 MEQ/30 ML UNIT DOSE CUP PO ONE (12:15)
--- NOTE | 2016-08-28 14:25 | PN ---
Progress Note, Physician History of Present Illness: Lethargic today No acute distress Afebrile WBC WNL - Current Medication List Current Medications: Active Medications Acetaminophen (Tylenol -) 650 mg PO Q6H PRN PRN Reason: HEADACHE/TEMP > 100.6 Albuterol/Ipratropium (Duoneb -) 1 amp NEB Q4H PRN PRN Reason: SHORTNESS OF BREATH Artificial Tears (Artificial Tears) 1 drop OU BID [facility] Last Admin: 08/27/16 21:23 Dose: 1 drp Ascorbic Acid (Vitamin C -) 500 mg PO DAILY [facility] Last Admin: 08/28/16 11:16 Dose: 500 mg Atorvastatin Calcium (Lipitor -) 10 mg PO HS [facility] Last Admin: 08/27/16 21:24 Dose: 10 mg Bacitracin (Bacitracin -) 1 applic TP DAILY [facility] Last Admin: 08/27/16 11:08 Dose: 1 applic Cyproheptadine HCl (Periactin -) 4 mg PO Q12H [facility] Last Admin: 08/28/16 06:09 Dose: 4 mg Docusate Sodium (Colace -) 300 mg PO HS [facility] Last Admin: 08/27/16 21:23 Dose: 300 mg Ferrous Sulfate (Feosol -) 325 mg PO BID [facility] Last Admin: 08/28/16 11:16 Dose: 325 mg Multivitamins/Minerals/Vitamin C (Tab-A-Vit -) 1 tab PO DAILY [facility] Last Admin: 08/28/16 11:16 Dose: 1 tab Pantoprazole Sodium (Protonix -) 20 mg PO DAILY [facility] Last Admin: 08/28/16 11:16 Dose: 20 mg Prednisone (Deltasone -) 20 mg PO DAILY [facility] Last Admin: 08/28/16 11:16 Dose: 20 mg Ranitidine HCl (Zantac -) 150 mg PO DAILY [facility] Last Admin: 08/28/16 11:16 Dose: 150 mg Rivaroxaban (Xarelto -) 20 mg PO DAILY [facility] Last Admin: 08/28/16 11:16 Dose: 20 mg - Objective Vital Signs: Vital Signs Temperature 98.8 F 08/28/16 09:54 Pulse Rate 55 L 08/28/16 10:15 Respiratory Rate 17 08/28/16 14:03 Blood Pressure 145/68 08/28/16 09:54 O2 Sat by Pulse Oximetry (%) 97 08/28/16 11:28 Constitutional: Yes: No Distress, Cachectic Cardiovascular: Yes: Regular Rate and Rhythm, S1, S2 Respiratory: Yes: Diminished Gastrointestinal: Yes: Normal Bowel Sounds, Soft. No: Tenderness Edema: No Labs: CBC, BMP 08/28/16 06:05 08/28/16 06:05 INR, PTT INR 1.43 (0.82-1.09) H 08/23/16 13:16 Assessment/Plan S/P hypotension/ altered mental status- possible sepsis-improved L pleural effusion , possible pneumonia + Urine c/s VRE -probable contaminant D/C antibiotics, observe off
[2016-08-28] MEDS ORDERED: MINERAL OIL ENEMA 133 ML ENEMA PR ONE (16:15)
[2016-08-28] MEDS: POLYETHYLENE GLYCOL 3350 119 GM BTL PO SCH ×2 (18:00→21:42)
[2016-08-28] MEDS: DOCUSATE SODIUM 100 MG CAPSULE (FP) PO SCH (21:19)
[2016-08-28] MEDS: ATORVASTATIN CA 10 MG TABLET (FP) PO SCH (21:20)
[2016-08-29] MEDS: CYPROHEPTADINE HCL 4 MG TABLET PO SCH ×2 (06:56→17:35)
[2016-08-29] MEDS: MULTIVITAMINS (DAILY MVI) TABLET (FP) PO SCH (10:16)
[2016-08-29] MEDS: RANITIDINE HCL 150 MG TABLET (FP) PO SCH (10:16)
[2016-08-29] MEDS: predniSONE 20 MG TABLET (UD) PO SCH (10:16)
[2016-08-29] MEDS: PANTOPRAZOLE 20 MG TABLET (FP) PO SCH (10:16)
[2016-08-29] MEDS: RIVAROXABAN 20 MG TABLET PO SCH (10:16)
[2016-08-29] MEDS: FERROUS SO4 325 MG TABLET (FP) PO SCH ×2 (10:16→22:50)
[2016-08-29] MEDS: ASCORBIC ACID 500 MG TABLET (FP) PO SCH (10:16)
[2016-08-29] MEDS: POLYETHYLENE GLYCOL 3350 119 GM BTL PO SCH ×2 (10:21→22:53)
[2016-08-29] MEDS: ARTIFICIAL TEARS (POLYVINYL ALCOHOL 1.4%) OPTH DROPS OU SCH ×2 (10:22→22:49)
[2016-08-29] MEDS: BACITRACIN 30 GM TUBE TOPICAL OINTMENT TP SCH (10:22)
--- NOTE | 2016-08-29 10:27 | PN ---
Progress Note, Physician - Current Medication List Current Medications: Active Medications Acetaminophen (Tylenol -) 650 mg PO Q6H PRN PRN Reason: HEADACHE/TEMP > 100.6 Albuterol/Ipratropium (Duoneb -) 1 amp NEB Q4H PRN PRN Reason: SHORTNESS OF BREATH Artificial Tears (Artificial Tears) 1 drop OU BID [facility] Last Admin: 08/29/16 10:22 Dose: 1 drop Ascorbic Acid (Vitamin C -) 500 mg PO DAILY [facility] Last Admin: 08/29/16 10:16 Dose: 500 mg Atorvastatin Calcium (Lipitor -) 10 mg PO HS [facility] Last Admin: 08/28/16 21:20 Dose: 10 mg Bacitracin (Bacitracin -) 1 applic TP DAILY [facility] Last Admin: 08/29/16 10:22 Dose: Not Given Cyproheptadine HCl (Periactin -) 4 mg PO Q12H [facility] Last Admin: 08/29/16 06:56 Dose: 4 mg Docusate Sodium (Colace -) 300 mg PO [facility] Last Admin: 08/28/16 21:19 Dose: 300 mg Ferrous Sulfate (Feosol -) 325 mg PO BID [facility] Last Admin: 08/29/16 10:16 Dose: 325 mg Multivitamins/Minerals/Vitamin C (Tab-A-Vit -) 1 tab PO DAILY [facility] Last Admin: 08/29/16 10:16 Dose: 1 tab Pantoprazole Sodium (Protonix -) 20 mg PO DAILY [facility] Last Admin: 08/29/16 10:16 Dose: 20 mg Polyethylene Glycol (Miralax (For Daily Use) -) 17 gm PO BID [facility] Prednisone (Deltasone -) 20 mg PO DAILY [facility] Last Admin: 08/29/16 10:16 Dose: 20 mg Ranitidine HCl (Zantac -) 150 mg PO DAILY [facility] Last Admin: 08/29/16 10:16 Dose: 150 mg Rivaroxaban (Xarelto -) 20 mg PO DAILY [facility] Last Admin: 08/29/16 10:16 Dose: 20 mg - Objective Vital Signs: Vital Signs Temperature 98.7 F 08/29/16 09:16 Pulse Rate 61 08/29/16 09:16 Respiratory Rate 12 08/29/16 09:16 Blood Pressure 104/47 08/29/16 09:16 O2 Sat by Pulse Oximetry (%) 96 08/29/16 00:07 Labs: CBC, BMP 08/28/16 06:05 08/28/16 06:05 INR, PTT INR 1.43 (0.82-1.09) H 08/23/16 13:16 Assessment/Plan 81y F hx of anemia, htn, hl, copd s/p trach due to respiratory failure, chf, cardiac arrest in 1998, GIB, recent admission for uti, AMS, was found to be unresponsive by NH staff, and noted to be hypotensive to 70s/40s. EMS was called, and found to be the pt to intermittenly alert, but thought she may just be ignoring him, bp was at 100/70. On arrival the pt will open her eyes to my verbal command, and seems to be able to understand my questions by shaking/ nodding her head. Denies any headache, pain, sob, abd pain, n/v, fever. - Past Medical History Cardiovascular: Yes: AFIB (Paroxysmal), CHF, HTN, Hyperlipdemia, Other (h/o cardiac arrest s/p AICD) Pulmonary: Yes: COPD, Other (respiratory failure) Gastrointestinal: Yes: GERD ...: No hospital course: admitted for hypotension elevated WBC iv abx cefepime was given for 5 days trach was leaking changed and was the nchanged by ENT potassium repleted (1) Hypotension Assessment/Plan: maybe sec to uti vs low voume status ID on case r/o sepsis ucx +ana iv abx Code(s): I95.9 - HYPOTENSION, UNSPECIFIED Qualifiers: Hypotension type: unspecified hypotension type Qualified Code(s): I95.9 - Hypotension, unspecified (2) Pleural effusion Assessment/Plan: chronic id on case iv abx Code(s): J90 - PLEURAL EFFUSION, NOT ELSEWHERE CLASSIFIED (3) PAF (paroxysmal atrial fibrillation) Assessment/Plan: xarelto Code(s): I48.0 - PAROXYSMAL ATRIAL FIBRILLATION (4) Chronic respiratory failure Assessment/Plan: vent support ent & pulm on case trach changed bronchodilators prednsione Code(s): J96.10 - CHRONIC RESPIRATORY FAILURE, UNSP W HYPOXIA OR HYPERCAPNIA Qualifiers: Respiratory failure complication: hypercapnia Qualified Code(s): J96.12 - Chronic respiratory failure with hypercapnia (5) Anemia Assessment/Plan: ferrous sulfate Code(s): D64.9 - ANEMIA, UNSPECIFIED Qualifiers: Anemia type: iron deficiency (6) UTI (urinary tract infection) Code(s): N39.0 - URINARY TRACT INFECTION, SITE NOT SPECIFIED Qualifiers: Urinary tract infection type: site unspecified Hematuria presence: without hematuria Qualified Code(s): N39.0 - Urinary tract infection, site not specified appreciate id consult -> Urine c/s VRE -probable contaminant (7) CONSTIPATION Assessment/Plan: MIRALAX BID COLACE SSE
--- NOTE | 2016-08-29 12:28 | PN ---
Progress Note (short form) - Note Progress Note: PULMONARY Denies shortness of breath, chest pain. No fevers or chills. Attempted CPAP/PS 12/5 but with low tidal volumes and pt reported dyspnea. Last Vital Signs Temp Pulse Resp BP Pulse Ox 98.7 F 61 12 104/47 96 08/29/16 09:16 08/29/16 09:16 08/29/16 09:16 08/29/16 09:16 08/29/16 00:07 Gen: vented, comfortable Heart: RRR Lung: bilateral rhonchi Abd: soft, nontender Ext: no edema CBC, BMP 08/28/16 06:05 08/28/16 06:05 Active Medications Acetaminophen (Tylenol -) 650 mg PO Q6H PRN PRN Reason: HEADACHE/TEMP > 100.6 Albuterol/Ipratropium (Duoneb -) 1 amp NEB Q4H PRN PRN Reason: SHORTNESS OF BREATH Artificial Tears (Artificial Tears) 1 drop OU BID [facility] Last Admin: 08/29/16 10:22 Dose: 1 drop Ascorbic Acid (Vitamin C -) 500 mg PO DAILY [facility] Last Admin: 08/29/16 10:16 Dose: 500 mg Atorvastatin Calcium (Lipitor -) 10 mg PO [facility] Last Admin: 08/28/16 21:20 Dose: 10 mg Bacitracin (Bacitracin -) 1 applic TP DAILY [facility] Last Admin: 08/29/16 10:22 Dose: Not Given Cyproheptadine HCl (Periactin -) 4 mg PO Q12H [facility] Last Admin: 08/29/16 06:56 Dose: 4 mg Docusate Sodium (Colace -) 300 mg PO [facility] Last Admin: 08/28/16 21:19 Dose: 300 mg Ferrous Sulfate (Feosol -) 325 mg PO BID [facility] Last Admin: 08/29/16 10:16 Dose: 325 mg Multivitamins/Minerals/Vitamin C (Tab-A-Vit -) 1 tab PO DAILY [facility] Last Admin: 08/29/16 10:16 Dose: 1 tab Pantoprazole Sodium (Protonix -) 20 mg PO DAILY [facility] Last Admin: 08/29/16 10:16 Dose: 20 mg Polyethylene Glycol (Miralax (For Daily Use) -) 17 gm PO BID [facility] Prednisone (Deltasone -) 20 mg PO DAILY [facility] Last Admin: 08/29/16 10:16 Dose: 20 mg Ranitidine HCl (Zantac -) 150 mg PO DAILY [facility] Last Admin: 08/29/16 10:16 Dose: 150 mg Rivaroxaban (Xarelto -) 20 mg PO DAILY [facility] Last Admin: 08/29/16 10:16 Dose: 20 mg A/P Chronic Respiratory Failure r/o Pneumonia Pleural Effusion Paroxysmal Atrial Fibrillation COPD Anemia - continue prednisone - inhaled bronchodilators - continue volume assist control - spontaneous breathing trials as tolerated - DVT/GI prophylaxis
[2016-08-29] MEDS: ATORVASTATIN CA 10 MG TABLET (FP) PO SCH (22:50)
[2016-08-29] MEDS: DOCUSATE SODIUM 100 MG CAPSULE (FP) PO SCH (22:50)
[2016-08-30] MEDS ORDERED: PT OWN MED DRAWER 7, Y5N ONE ×4 (05:48→23:22)
[2016-08-30] MEDS: CYPROHEPTADINE HCL 4 MG TABLET PO SCH ×2 (05:53→17:51)
[2016-08-30] MEDS: ALBUTEROL SO4 2.5/IPRATROPIUM 0.5 INH SOL 3 ML VIAL.NEB. NEB PRN (10:00)
--- NOTE | 2016-08-30 10:10 | DS ---
Physical Examination Vital Signs: Vital Signs Temperature 97.5 F L 08/30/16 06:00 Pulse Rate 57 L 08/30/16 06:00 Respiratory Rate 12 08/30/16 06:35 Blood Pressure 106/68 08/30/16 06:00 O2 Sat by Pulse Oximetry (%) 96 08/30/16 00:20 Findings/Remarks: HAD BM COMFORTABLE Cardiovascular: Yes: S1, S2 Respiratory: Yes: CTA Bilaterally Gastrointestinal: Yes: Normal Bowel Sounds, Soft Labs: CBC, BMP 08/28/16 06:05 08/28/16 06:05 Discharge Summary Reason For Visit: HYPOTENSION; DEHYDRATION Current Active Problems Anemia (Acute) Dehydration (Acute) Hypotension (Acute) Hospital Course: 81y F hx of anemia, htn, hl, copd s/p trach due to respiratory failure, chf, cardiac arrest in 1998, GIB, recent admission for uti, AMS, was found to be unresponsive by NH staff, and noted to be hypotensive to 70s/40s. EMS was called, and found to be the pt to intermittenly alert, but thought she may just be ignoring him, bp was at 100/70. On arrival the pt will open her eyes to my verbal command, and seems to be able to understand my questions by shaking/ nodding her head. Denies any headache, pain, sob, abd pain, n/v, fever. - Past Medical History Cardiovascular: Yes: AFIB (Paroxysmal), CHF, HTN, Hyperlipdemia, Other (h/o cardiac arrest s/p AICD) Pulmonary: Yes: COPD, Other (respiratory failure) Gastrointestinal: Yes: GERD ...: No hospital course: admitted for hypotension elevated WBC iv abx cefepime was given for 5 days trach was leaking changed and was the nchanged by ENT potassium repleted (1) Hypotension Assessment/Plan: maybe sec to uti vs low voume status ID on case r/o sepsis ucx +ana OFF iv abx Code(s): I95.9 - HYPOTENSION, UNSPECIFIED Qualifiers: Hypotension type: unspecified hypotension type Qualified Code(s): I95.9 - Hypotension, unspecified (2) Pleural effusion Assessment/Plan: chronic id on case OFF iv abx Code(s): J90 - PLEURAL EFFUSION, NOT ELSEWHERE CLASSIFIED (3) PAF (paroxysmal atrial fibrillation) Assessment/Plan: xarelto Code(s): I48.0 - PAROXYSMAL ATRIAL FIBRILLATION (4) Chronic respiratory failure Assessment/Plan: vent support ent & pulm on case trach changed bronchodilators prednsione Code(s): J96.10 - CHRONIC RESPIRATORY FAILURE, UNSP W HYPOXIA OR HYPERCAPNIA Qualifiers: Respiratory failure complication: hypercapnia Qualified Code(s): J96.12 - Chronic respiratory failure with hypercapnia (5) Anemia Assessment/Plan: ferrous sulfate Code(s): D64.9 - ANEMIA, UNSPECIFIED Qualifiers: Anemia type: iron deficiency (6) UTI (urinary tract infection) Code(s): N39.0 - URINARY TRACT INFECTION, SITE NOT SPECIFIED Qualifiers: Urinary tract infection type: site unspecified Hematuria presence: without hematuria Qualified Code(s): N39.0 - Urinary tract infection, site not specified appreciate id consult -> Urine c/s VRE -probable contaminant (7) CONSTIPATION Assessment/Plan: MIRALAX BID [place]ACE S/P SSE Condition: Guarded - Instructions Referrals: Royer Verduzco MD [Primary Care Provider] - Disposition: [facility]ITENTIARY FACILITY - Home Medications Comprehensive Discharge Medication List: Ambulatory Orders Simvastatin [Zocor -] 20 mg PO DAILY 05/24/12 Ascorbate Calcium [Vitamin C] 500 mg PO DAILY 01/20/16 Docusate Sodium 300 mg PO HS 01/20/16 Ferrous Sulfate 325 mg PO BID 01/20/16 Hypromellose 0.5% Opth Soln [Artificial Tears] 1 drop OU BID 01/20/16 Rivaroxaban [Xarelto -] 20 mg PO DAILY 01/20/16 Lactose-Reduced Food [Ensure Plus] 237 ml PO BID 04/15/16 Multivitamins [Multivit ([facility] Formulary)] 1 tab PO DAILY 04/15/16 Acetaminophen [Tylenol .Regular Strength -] 650 mg PO Q4H PRN #0 tablet Bacitracin - [Bacitracin Topical Ointment -] 1 applic TP DAILY #1 tube 04/21/16 Cyproheptadine [Periactin -] 4 mg PO Q12H 08/14/16 Ipratropium [place] 0.2 mg IH QID 08/14/16 Loratadine 10 mg PO DAILY 08/14/16 Omeprazole 20 mg PO DAILY 08/14/16 Ranitidine HCl [Zantac] 150 mg PO DAILY 08/14/16 Albuterol 2.5/Ipratropium 0.5 [Duoneb -] 1 amp NEB Q4H PRN #0 amp 08/22/16 Clonazepam [Klonopin -] 0.5 mg PO BID PRN #0 tablet MDD 2 08/22/16 Prednisone [Deltasone -] 20 mg PO DAILY tablet 08/22/16
[2016-08-30] MEDS: BACITRACIN 30 GM TUBE TOPICAL OINTMENT TP SCH (11:00)
[2016-08-30] MEDS: FERROUS SO4 325 MG TABLET (FP) PO SCH ×2 (11:28→23:27)
[2016-08-30] MEDS: POLYETHYLENE GLYCOL 3350 119 GM BTL PO SCH ×2 (11:28→23:27)
[2016-08-30] MEDS: predniSONE 20 MG TABLET (UD) PO SCH (11:29)
[2016-08-30] MEDS: RANITIDINE HCL 150 MG TABLET (FP) PO SCH (11:29)
[2016-08-30] MEDS: MULTIVITAMINS (DAILY MVI) TABLET (FP) PO SCH (11:29)
[2016-08-30] MEDS: PANTOPRAZOLE 20 MG TABLET (FP) PO SCH (11:29)
[2016-08-30] MEDS: RIVAROXABAN 20 MG TABLET PO SCH (11:29)
[2016-08-30] MEDS: ASCORBIC ACID 500 MG TABLET (FP) PO SCH (11:29)
[2016-08-30] MEDS: ARTIFICIAL TEARS (POLYVINYL ALCOHOL 1.4%) OPTH DROPS OU SCH ×2 (11:30→23:27)
[2016-08-30] MEDS: DOCUSATE SODIUM 100 MG CAPSULE (FP) PO SCH (23:27)
[2016-08-30] MEDS: ATORVASTATIN CA 10 MG TABLET (FP) PO SCH (23:27)
[2016-08-31] MEDS ORDERED: PT OWN MED DRAWER 7, Y5N ONE ×4 (07:00→21:56)
[2016-08-31] MEDS: CYPROHEPTADINE HCL 4 MG TABLET PO SCH ×2 (07:14→17:56)
[2016-08-31] MEDS: ASCORBIC ACID 500 MG TABLET (FP) PO SCH (10:57)
[2016-08-31] MEDS: MULTIVITAMINS (DAILY MVI) TABLET (FP) PO SCH (10:57)
[2016-08-31] MEDS: predniSONE 20 MG TABLET (UD) PO SCH (10:57)
[2016-08-31] MEDS: RIVAROXABAN 20 MG TABLET PO SCH (10:57)
[2016-08-31] MEDS: FERROUS SO4 325 MG TABLET (FP) PO SCH ×2 (10:58→22:40)
[2016-08-31] MEDS: PANTOPRAZOLE 20 MG TABLET (FP) PO SCH (10:58)
[2016-08-31] MEDS: RANITIDINE HCL 150 MG TABLET (FP) PO SCH (10:59)
[2016-08-31] MEDS: ARTIFICIAL TEARS (POLYVINYL ALCOHOL 1.4%) OPTH DROPS OU SCH ×2 (10:59→22:40)
[2016-08-31] MEDS: POLYETHYLENE GLYCOL 3350 119 GM BTL PO SCH ×2 (10:59→22:41)
[2016-08-31] MEDS: BACITRACIN 30 GM TUBE TOPICAL OINTMENT TP SCH (11:00)
--- NOTE | 2016-08-31 12:45 | PN ---
Progress Note, Physician History of Present Illness: pulmonary alert,nad,on vent support ac mode - Current Medication List Current Medications: Active Medications Acetaminophen (Tylenol -) 650 mg PO Q6H PRN PRN Reason: HEADACHE/TEMP > 100.6 Albuterol/Ipratropium (Duoneb -) 1 amp NEB Q4H PRN PRN Reason: SHORTNESS OF BREATH Last Admin: 08/30/16 10:00 Dose: 1 amp Artificial Tears (Artificial Tears) 1 drop OU BID [facility] Last Admin: 08/31/16 10:59 Dose: 1 drop Ascorbic Acid (Vitamin C -) 500 mg PO DAILY [facility] Last Admin: 08/31/16 10:57 Dose: 500 mg Atorvastatin Calcium (Lipitor -) 10 mg PO [facility] Last Admin: 08/30/16 23:27 Dose: 10 mg Bacitracin (Bacitracin -) 1 applic TP DAILY [facility] Last Admin: 08/30/16 11:00 Dose: Not Given Cyproheptadine HCl (Periactin -) 4 mg PO Q12H [facility] Last Admin: 08/31/16 07:14 Dose: 4 mg Docusate Sodium (Colace -) 300 mg PO HS [facility] Last Admin: 08/30/16 23:27 Dose: 300 mg Ferrous Sulfate (Feosol -) 325 mg PO BID [facility] Last Admin: 08/31/16 10:58 Dose: 325 mg Multivitamins/Minerals/Vitamin C (Tab-A-Vit -) 1 tab PO DAILY [facility] Last Admin: 08/31/16 10:57 Dose: 1 tab Pantoprazole Sodium (Protonix -) 20 mg PO DAILY [facility] Last Admin: 08/31/16 10:58 Dose: 20 mg Polyethylene Glycol (Miralax (For Daily Use) -) 17 gm PO BID [facility] Last Admin: 08/31/16 10:59 Dose: 17 g Prednisone (Deltasone -) 20 mg PO DAILY [facility] Last Admin: 08/31/16 10:57 Dose: 20 mg Ranitidine HCl (Zantac -) 150 mg PO DAILY [facility] Last Admin: 08/31/16 10:59 Dose: 150 mg Rivaroxaban (Xarelto -) 20 mg PO DAILY [facility] Last Admin: 08/31/16 10:57 Dose: 20 mg - Objective Vital Signs: Vital Signs Temperature 98.6 F 08/31/16 10:55 Pulse Rate 58 L 08/31/16 10:55 Respiratory Rate 12 08/31/16 10:55 Blood Pressure 103/75 08/31/16 10:55 O2 Sat by Pulse Oximetry (%) 98 08/31/16 05:56 Constitutional: Yes: Well Nourished, Calm Eyes: Yes: WNL HENT: Yes: WNL Neck: Yes: WNL Cardiovascular: Yes: Pulse Irregular, S1, S2 Respiratory: Yes: Rhonchi (few rhonchi) Gastrointestinal: Yes: Normal Bowel Sounds, Soft Extremities: Yes: WNL Edema: No Assessment/Plan Problem List - Problems (1) Anemia Code(s): D64.9 - ANEMIA, UNSPECIFIED Qualifiers: Anemia type: iron deficiency (2) Dehydration Code(s): E86.0 - DEHYDRATION (3) Hypotension Code(s): I95.9 - HYPOTENSION, UNSPECIFIED Qualifiers: Hypotension type: unspecified hypotension type Qualified Code(s): I95.9 - Hypotension, unspecified (4) AICD (automatic cardioverter/defibrillator) present Code(s): Z95.810 - PRESENCE OF AUTOMATIC (IMPLANTABLE) CARDIAC DEFIBRILLATOR (5) Altered mental status Code(s): R41.82 - ALTERED MENTAL STATUS, UNSPECIFIED Qualifiers: Altered mental status type: unspecified Qualified Code(s): R41.82 - Altered mental status, unspecified (6) COPD (chronic obstructive pulmonary disease) Code(s): J44.9 - CHRONIC OBSTRUCTIVE PULMONARY DISEASE, UNSPECIFIED (7) Chronic respiratory failure Code(s): J96.10 - CHRONIC RESPIRATORY FAILURE, UNSP W HYPOXIA OR HYPERCAPNIA Qualifiers: Respiratory failure complication: hypercapnia Qualified Code(s): J96.12 - Chronic respiratory failure with hypercapnia (8) HTN (hypertension) Code(s): I10 - ESSENTIAL (PRIMARY) HYPERTENSION (9) PAF (paroxysmal atrial fibrillation) Code(s): I48.0 - PAROXYSMAL ATRIAL FIBRILLATION (10) Pleural effusion Code(s): J90 - PLEURAL EFFUSION, NOT ELSEWHERE CLASSIFIED (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
[2016-08-31] MEDS: ALBUTEROL SO4 2.5/IPRATROPIUM 0.5 INH SOL 3 ML VIAL.NEB. NEB PRN (14:08)
--- NOTE | 2016-08-31 15:53 | PN ---
Progress Note, Physician History of Present Illness: had sob this am--better with nebs - Current Medication List Current Medications: Active Medications Acetaminophen (Tylenol -) 650 mg PO Q6H PRN PRN Reason: HEADACHE/TEMP > 100.6 Albuterol/Ipratropium (Duoneb -) 1 amp NEB QID [facility] Artificial Tears (Artificial Tears) 1 drop OU BID [facility] Last Admin: 08/31/16 10:59 Dose: 1 drop Ascorbic Acid (Vitamin C -) 500 mg PO DAILY [facility] Last Admin: 08/31/16 10:57 Dose: 500 mg Atorvastatin Calcium (Lipitor -) 10 mg PO HS [facility] Last Admin: 08/30/16 23:27 Dose: 10 mg Bacitracin (Bacitracin -) 1 applic TP DAILY [facility] Last Admin: 08/30/16 11:00 Dose: Not Given Cyproheptadine HCl (Periactin -) 4 mg PO Q12H [facility] Last Admin: 08/31/16 07:14 Dose: 4 mg Docusate Sodium (Colace -) 300 mg PO HS [facility] Last Admin: 08/30/16 23:27 Dose: 300 mg Ferrous Sulfate (Feosol -) 325 mg PO BID [facility] Last Admin: 08/31/16 10:58 Dose: 325 mg Multivitamins/Minerals/Vitamin C (Tab-A-Vit -) 1 tab PO DAILY [facility] Last Admin: 08/31/16 10:57 Dose: 1 tab Pantoprazole Sodium (Protonix -) 20 mg PO DAILY [facility] Last Admin: 08/31/16 10:58 Dose: 20 mg Polyethylene Glycol (Miralax (For Daily Use) -) 17 gm PO BID [facility] Last Admin: 08/31/16 10:59 Dose: 17 g Prednisone (Deltasone -) 20 mg PO DAILY [facility] Last Admin: 08/31/16 10:57 Dose: 20 mg Ranitidine HCl (Zantac -) 150 mg PO DAILY [facility] Last Admin: 08/31/16 10:59 Dose: 150 mg Rivaroxaban (Xarelto -) 20 mg PO DAILY [facility] Last Admin: 08/31/16 10:57 Dose: 20 mg - Objective Vital Signs: Vital Signs Temperature 98.9 F 08/31/16 14:31 Pulse Rate 64 08/31/16 14:31 Respiratory Rate 14 08/31/16 14:31 Blood Pressure 103/59 08/31/16 14:31 O2 Sat by Pulse Oximetry (%) 98 08/31/16 05:56 Cardiovascular: Yes: Regular Rate and Rhythm Respiratory: Yes: Mechanically Ventilated Gastrointestinal: Yes: Normal Bowel Sounds, Soft Labs: CBC, BMP 08/28/16 06:05 08/28/16 06:05 INR, PTT INR 1.43 (0.82-1.09) H 08/23/16 13:16 Assessment/Plan 81y F hx of anemia, htn, hl, copd s/p trach due to respiratory failure, chf, cardiac arrest in 1998, GIB, recent admission for uti, AMS, was found to be unresponsive by NH staff, and noted to be hypotensive to 70s/40s. EMS was called, and found to be the pt to intermittenly alert, but thought she may just be ignoring him, bp was at 100/70. On arrival the pt will open her eyes to my verbal command, and seems to be able to understand my questions by shaking/ nodding her head. Denies any headache, pain, sob, abd pain, n/v, fever. - Past Medical History Cardiovascular: Yes: AFIB (Paroxysmal), CHF, HTN, Hyperlipdemia, Other (h/o cardiac arrest s/p AICD) Pulmonary: Yes: COPD, Other (respiratory failure) Gastrointestinal: Yes: GERD ...: No hospital course: admitted for hypotension elevated WBC iv abx cefepime was given for 5 days trach was leaking changed and was the nchanged by ENT potassium repleted (1) Hypotension Assessment/Plan: maybe sec to uti vs low voume status ID on case r/o sepsis ucx +ana iv abx Code(s): I95.9 - HYPOTENSION, UNSPECIFIED Qualifiers: Hypotension type: unspecified hypotension type Qualified Code(s): I95.9 - Hypotension, unspecified (2) Pleural effusion Assessment/Plan: chronic id on case iv abx Code(s): J90 - PLEURAL EFFUSION, NOT ELSEWHERE CLASSIFIED (3) PAF (paroxysmal atrial fibrillation) Assessment/Plan: xarelto Code(s): I48.0 - PAROXYSMAL ATRIAL FIBRILLATION (4) Chronic respiratory failure Assessment/Plan: NEBS QID vent support ent & pulm on case trach changed bronchodilators prednsione Code(s): J96.10 - CHRONIC RESPIRATORY FAILURE, UNSP W HYPOXIA OR HYPERCAPNIA Qualifiers: Respiratory failure complication: hypercapnia Qualified Code(s): J96.12 - Chronic respiratory failure with hypercapnia (5) Anemia Assessment/Plan: ferrous sulfate Code(s): D64.9 - ANEMIA, UNSPECIFIED Qualifiers: Anemia type: iron deficiency (6) UTI (urinary tract infection) Code(s): N39.0 - URINARY TRACT INFECTION, SITE NOT SPECIFIED Qualifiers: Urinary tract infection type: site unspecified Hematuria presence: without hematuria Qualified Code(s): N39.0 - Urinary tract infection, site not specified appreciate id consult -> Urine c/s VRE -probable contaminant (7) CONSTIPATION Assessment/Plan: MIRALAX BID COLACE SSE
[2016-08-31] MEDS: ALBUTEROL SO4 2.5/IPRATROPIUM 0.5 INH SOL 3 ML VIAL.NEB. NEB SCH ×2 (19:26→22:48)
[2016-08-31] MEDS: DOCUSATE SODIUM 100 MG CAPSULE (FP) PO SCH (22:40)
[2016-08-31] MEDS: ATORVASTATIN CA 10 MG TABLET (FP) PO SCH (22:40)
[2016-09-01] MEDS: CYPROHEPTADINE HCL 4 MG TABLET PO SCH (06:12)
[2016-09-01] MEDS: ALBUTEROL SO4 2.5/IPRATROPIUM 0.5 INH SOL 3 ML VIAL.NEB. NEB SCH ×2 (06:59→11:34)
[2016-09-01] MEDS: PANTOPRAZOLE 20 MG TABLET (FP) PO SCH (10:11)
[2016-09-01] MEDS: MULTIVITAMINS (DAILY MVI) TABLET (FP) PO SCH (10:11)
[2016-09-01] MEDS: RIVAROXABAN 20 MG TABLET PO SCH (10:11)
[2016-09-01] MEDS: predniSONE 20 MG TABLET (UD) PO SCH (10:11)
[2016-09-01] MEDS: ASCORBIC ACID 500 MG TABLET (FP) PO SCH (10:11)
[2016-09-01] MEDS: FERROUS SO4 325 MG TABLET (FP) PO SCH (10:11)
[2016-09-01] MEDS: RANITIDINE HCL 150 MG TABLET (FP) PO SCH (10:12)
[2016-09-01] MEDS: ARTIFICIAL TEARS (POLYVINYL ALCOHOL 1.4%) OPTH DROPS OU SCH (10:12)
[2016-09-01] MEDS: BACITRACIN 30 GM TUBE TOPICAL OINTMENT TP SCH (10:12)
[2016-09-01] MEDS: POLYETHYLENE GLYCOL 3350 119 GM BTL PO SCH (10:12)
--- NOTE | 2016-09-01 10:24 | DS ---
Physical Examination Vital Signs: Vital Signs Temperature 98.5 F 09/01/16 06:00 Pulse Rate 60 09/01/16 06:00 Respiratory Rate 12 09/01/16 06:58 Blood Pressure 115/65 09/01/16 06:00 O2 Sat by Pulse Oximetry (%) 98 08/31/16 21:00 Findings/Remarks: BETTER Cardiovascular: Yes: S1, S2 Respiratory: Yes: Mechanically Ventilated Gastrointestinal: Yes: Normal Bowel Sounds, Soft Labs: CBC, BMP 08/28/16 06:05 08/28/16 06:05 Discharge Summary Reason For Visit: HYPOTENSION; DEHYDRATION Current Active Problems Anemia (Acute) Dehydration (Acute) Hypotension (Acute) Hospital Course: 81y F hx of anemia, htn, hl, copd s/p trach due to respiratory failure, chf, cardiac arrest in 1998, GIB, recent admission for uti, AMS, was found to be unresponsive by NH staff, and noted to be hypotensive to 70s/40s. EMS was called, and found to be the pt to intermittenly alert, but thought she may just be ignoring him, bp was at 100/70. On arrival the pt will open her eyes to my verbal command, and seems to be able to understand my questions by shaking/ nodding her head. Denies any headache, pain, sob, abd pain, n/v, fever. - Past Medical History Cardiovascular: Yes: AFIB (Paroxysmal), CHF, HTN, Hyperlipdemia, Other (h/o cardiac arrest s/p AICD) Pulmonary: Yes: COPD, Other (respiratory failure) Gastrointestinal: Yes: GERD ...: No hospital course: admitted for hypotension elevated WBC iv abx cefepime was given for 5 days trach was leaking changed and was the nchanged by ENT potassium repleted (1) Hypotension Assessment/Plan: maybe sec to uti vs low voume status ID on case r/o sepsis ucx +ana OFF iv abx Code(s): I95.9 - HYPOTENSION, UNSPECIFIED Qualifiers: Hypotension type: unspecified hypotension type Qualified Code(s): I95.9 - Hypotension, unspecified (2) Pleural effusion Assessment/Plan: chronic id on case OFF iv abx Code(s): J90 - PLEURAL EFFUSION, NOT ELSEWHERE CLASSIFIED (3) PAF (paroxysmal atrial fibrillation) Assessment/Plan: xarelto Code(s): I48.0 - PAROXYSMAL ATRIAL FIBRILLATION (4) Chronic respiratory failure Assessment/Plan: vent support ent & pulm on case trach changed bronchodilators prednsione Code(s): J96.10 - CHRONIC RESPIRATORY FAILURE, UNSP W HYPOXIA OR HYPERCAPNIA Qualifiers: Respiratory failure complication: hypercapnia Qualified Code(s): J96.12 - Chronic respiratory failure with hypercapnia (5) Anemia Assessment/Plan: ferrous sulfate Code(s): D64.9 - ANEMIA, UNSPECIFIED Qualifiers: Anemia type: iron deficiency (6) UTI (urinary tract infection) Code(s): N39.0 - URINARY TRACT INFECTION, SITE NOT SPECIFIED Qualifiers: Urinary tract infection type: site unspecified Hematuria presence: without hematuria Qualified Code(s): N39.0 - Urinary tract infection, site not specified appreciate id consult -> Urine c/s VRE -probable contaminant (7) CONSTIPATION Assessment/Plan: MIRALAX BID COLACE S/P SSE Condition: Improved - Instructions Referrals: Royer Verduzco MD [Primary Care Provider] - Disposition: [facility]M FACILITY - Home Medications Comprehensive Discharge Medication List: Ambulatory Orders Simvastatin [Zocor -] 20 mg PO DAILY 05/24/12 Ascorbate Calcium [Vitamin C] 500 mg PO DAILY 01/20/16 Docusate Sodium 300 mg PO HS 01/20/16 Ferrous Sulfate 325 mg PO BID 01/20/16 Hypromellose 0.5% Opth Soln [Artificial Tears] 1 drop OU BID 01/20/16 Rivaroxaban [Xarelto -] 20 mg PO DAILY 01/20/16 Lactose-Reduced Food [Ensure Plus] 237 ml PO BID 04/15/16 Multivitamins [Multivit ([facility] Formulary)] 1 tab PO DAILY 04/15/16 Acetaminophen [Tylenol .Regular Strength -] 650 mg PO Q4H PRN #0 tablet Bacitracin - [Bacitracin Topical Ointment -] 1 applic TP DAILY #1 tube 04/21/16 Cyproheptadine [Periactin -] 4 mg PO Q12H 08/14/16 Ipratropium [place] 0.2 mg IH QID 08/14/16 Loratadine 10 mg PO DAILY 08/14/16 Omeprazole 20 mg PO DAILY 08/14/16 Ranitidine HCl [Zantac] 150 mg PO DAILY 08/14/16 Albuterol 2.5/Ipratropium 0.5 [Duoneb -] 1 amp NEB Q4H PRN #0 amp 08/22/16 Clonazepam [Klonopin -] 0.5 mg PO BID PRN #0 tablet MDD 2 08/22/16 Prednisone [Deltasone -] 20 mg PO DAILY tablet 08/22/16 Polyethylene Glycol 3350 [Miralax 119 gm Btl -] 17 gm PO BID bottle 08/30/16
[2016-09-01 14:46] VITALS: BP 132/60; PULSE 80; TEMP 99.5
== END 2016-09-01 16:55 | DRG 870 ==
LOC: JER 12:45 → JERBED 15:55 → J5S 22:58 → OBSVTOIN 08-24 13:42
PROVIDERS: ADMIT Family Medicine; ATTEND Family Medicine
PROC: 5A1955Z Respiratory Ventilation, Greater than 96 Consecutive Hours (ICD-10-PCS; principal; 2016-08-24)
PROC: 0B21XFZ Change Tracheostomy Device in Trachea, External Approach (ICD-10-PCS; 2016-08-24)
DX: A41.9 Sepsis, unspecified organism (principal); J18.9 Pneumonia, unspecified organism; Z99.11 Dependence on respirator [ventilator] status; J95.09 Other tracheostomy complication; J96.12 Chronic respiratory failure with hypercapnia; R64 Cachexia; N39.0 Urinary tract infection, site not specified; E87.3 Alkalosis; D64.9 Anemia, unspecified; J44.9 Chronic obstructive pulmonary disease, unspecified; E86.0 Dehydration; I48.0 Paroxysmal atrial fibrillation; I11.0 Hypertensive heart disease with heart failure; I50.9 Heart failure, unspecified; Z95.810 Presence of automatic (implantable) cardiac defibrillator; K21.9 Gastro-esophageal reflux disease without esophagitis; Y83.8 Other surgical procedures as the cause of abnormal reaction of the patient, or of later complication, without mention of misadventure at the time of the procedure; K59.00 Constipation, unspecified
CPT/HCPCS: 36415; 36600; 71010-TC; 74000-TC; 74190-TC; 80053; 81003; 81015; 82550; 82803; 83605; 84484; 85025; 85610; 85730; 86850; 86900; 86901; 87040; 87086; 87186; 93005; 93010; 94002; 94640; 99285-25; G0378

== ENCOUNTER 2016-10-02 17:00 | Inpatient (IN) | payer OTHER ==
--- NOTE | 2016-10-02 17:31 | PDOC ---
History of Present Illness - General Chief Complaint: Blood Pressure Problem Stated Complaint: HYPOTENSION Time Seen by Provider: 10/02/16 17:30 Past History - Past Medical History Allergies/Adverse Reactions: Allergies Allergy/AdvReac Type Severity Reaction Status Date / Time doxycycline Allergy Intermediate Verified 10/02/16 17:28 CLAMS Allergy Intermediate Hives Uncoded 10/02/16 17:28 Home Medications: Ambulatory Orders Simvastatin [Zocor -] 20 mg PO DAILY 05/24/12 Ergocalciferol (Vitamin D2) [Drisdol] 50,000 unit PO WEEKLY 05/27/12 Fluticasone/Salmeterol [Advair 250-50 Diskus] 1 each IH BID 05/27/12 Nebivolol HCl [Bystolic] 10 mg PO DAILY tablet 05/27/12 Tiotropium [place] [Spiriva] 18 mcg IH DAILY 05/27/12 Ascorbate Calcium [Vitamin C] 500 mg PO DAILY 01/20/16 Docusate Sodium 300 mg PO HS 01/20/16 Ferrous Sulfate 325 mg PO BID 01/20/16 Hypromellose 0.5% Opth Soln [Artificial Tears] 1 drop OU BID 01/20/16 Rivaroxaban [Xarelto -] 20 mg PO DAILY 01/20/16 Lactose-Reduced Food [Ensure Plus] 237 ml PO BID 04/15/16 Multivitamins [Multivit ([facility] Formulary)] 1 tab PO DAILY 04/15/16 Acetaminophen [Tylenol .Regular Strength -] 650 mg PO Q4H PRN #0 tablet Bacitracin - [Bacitracin Topical Ointment -] 1 applic TP DAILY #1 tube 04/21/16 Cyproheptadine [Periactin -] 4 mg PO Q12H 08/14/16 Ipratropium [place] 0.2 mg IH QID 08/14/16 Loratadine 10 mg PO DAILY 08/14/16 Omeprazole 20 mg PO DAILY 08/14/16 Ranitidine HCl [Zantac] 150 mg PO DAILY 08/14/16 Albuterol 2.5/Ipratropium 0.5 [Duoneb -] 1 amp NEB Q4H PRN #0 amp 08/22/16 Clonazepam [Klonopin -] 0.5 mg PO BID PRN #0 tablet MDD 2 08/22/16 Prednisone [Deltasone -] 20 mg PO DAILY tablet 08/22/16 Polyethylene Glycol 3350 [Miralax 119 gm Btl -] 17 gm PO BID bottle 08/30/16 Anemia: Yes Asthma: No Cancer: No Cardiac Disorders: Yes (CARDIAC ARREST 1998, afib) CVA: No COPD: Yes CHF: No Dementia: Yes (SHORT TERM MEMORY LOSS) Diabetes: No GI Disorders: No Disorders: No HTN: Yes Hypercholesterolemia: Yes Liver Disease: No Seizures: No Thyroid Disease: No - Surgical History Abdominal Surgery: No Appendectomy: No Cardiac Surgery: Yes (DEFIBRILLATOR) Cholecystectomy: No Lung Surgery: No Neurologic Surgery: No Orthopedic Surgery: No - Immunization History Immunization Up to Date: Yes - Psycho/Social/Smoking Cessation Hx Anxiety: No Suicidal Ideation: No Smoking History: Unknown if ever smoked Have you smoked in the past 12 months: No Number of Cigarettes Smoked Daily: 0 Cigars Per Day: 0 Hx Alcohol Use: No Drug/Substance Use Hx: No Substance Use Type: None *DC/Admit/Observation/Transfer - Attestations Physician Attestion: 10/02/16 17:31 I, Dr. Gerardo Yuan, attest that this document has been prepared under my direction and personally reviewed by me in its entirety. I further attest, that it accurately reflects all work, treatment, procedures and medical decision -making performed by me.
[2016-10-02 17:32] VITALS: BMI 18.3
--- NOTE | 2016-10-02 17:47 | PDOC ---
[id number] Exam Limitations: Other - History of Present Illness Initial Comments: 10/02/16 18:47 The patient is an 81 year old female, with a significant past medical history of of anemia, AFib, CHF, cardiac arrest 1998, hypertension, hyperlipidemia, COPD(s/p trach due to respiratory failure, UTIs, and GI bleed, who presents to the emergency department sent from [facility], for further evaluation of abdominal pain since this morning. Per correction records, the patient was complaining of abdominal pain earlier this morning. The patients Tmax in [place] was 100.8F and her bp was 139/66. The patient was given tylenol. The patient was able to eat lunch. After lunch, the patients vital signs were rechecked and her Tmax was 88.8, while her bp was 108/72. Per records, Dr. Verduzco called and ordered the patient be sent to [facility] ER for further evaluation. Per previous records the patient was recently admitted to the ED on 08/23/16 for a UTI. The patients history is limited as she is nonverbal. Allergies: Doxycycline, Clams Past Surgical History: Defibrillator Social History: Non-smoker. Denies alcohol or drug use. Consulting Intern: Dr. Verduzco <Meredith Dixon - Last Filed: 10/02/16 18:47> <Gerarod Yuan - Last Filed: 11/26/16 10:03> - General Chief Complaint: Blood Pressure Problem Stated Complaint: HYPOTENSION Time Seen by Provider: 10/02/16 17:30 Past History <Meredith Dixon - Last Filed: 10/02/16 18:47> - Past Medical History Anemia: Yes Asthma: No Cancer: No Cardiac Disorders: Yes (CARDIAC ARREST 1998, afib) CVA: No COPD: Yes CHF: No Dementia: Yes (SHORT TERM MEMORY LOSS) Diabetes: No GI Disorders: No Disorders: No HTN: Yes Hypercholesterolemia: Yes Liver Disease: No Seizures: No Thyroid Disease: No - Surgical History Abdominal Surgery: No Appendectomy: No Cardiac Surgery: Yes (DEFIBRILLATOR) Cholecystectomy: No Lung Surgery: No Neurologic Surgery: No Orthopedic Surgery: No - Immunization History Immunization Up to Date: Yes - Psycho/Social/Smoking Cessation Hx Anxiety: No Suicidal Ideation: No Smoking History: Unknown if ever smoked Have you smoked in the past 12 months: No Number of Cigarettes Smoked Daily: 0 Cigars Per Day: 0 Information on smoking cessation initiated: No Hx Alcohol Use: No Drug/Substance Use Hx: No Substance Use Type: None <Gerardo Yuan - Last Filed: 11/26/16 10:03> - Past Medical History Allergies/Adverse Reactions: Allergies Allergy/AdvReac Type Severity Reaction Status Date / Time doxycycline Allergy Intermediate Verified 10/02/16 17:28 CLAMS Allergy Intermediate Hives Uncoded 10/02/16 17:28 Home Medications: Ambulatory Orders Acetaminophen [Tylenol] 650 mg PO QID 10/19/16 Ascorbic Acid [Vitamin C -] 500 mg PO DAILY 10/19/16 Clonazepam [Klonopin -] 0.5 mg PO BID 10/19/16 Docusate Sodium 300 mg PO HS 10/19/16 Ferrous Sulfate 325 mg PO BID 10/19/16 Hypromellose 0.5% Opth Soln [Artificial Tears] 1 drop DAILY 10/19/16 Loratadine 10 mg PO DAILY 10/19/16 Multivitamin [Poly-Vitamin] 1 each PO DAILY 10/19/16 Omeprazole 20 mg PO DAILY 10/19/16 Prednisone [Deltasone -] 20 mg PO DAILY 10/19/16 Rivaroxaban [Xarelto -] 20 mg PO DAILY 10/19/16 Simvastatin [Zocor -] 20 mg PO HS 10/19/16 Albuterol 2.5/Ipratropium 0.5 [Duoneb -] 1 amp NEB QIDR amp 10/24/16 Ertapenem Sodium [Invanz -] 1 gm IVPB DAILY vial 10/24/16 Lactobacillus Acidophilus [Bacid -] 1 tab PO DAILY tab 10/24/16 Review of Systems - Review of Systems Able to Perform ROS?: Yes Comments:: 10/02/16 18:48 Patient's history is limited due to current clinical condition (AMS and nonverbal). <Meredith Dixno - Last Filed: 10/02/16 18:47> *Physical Exam - Vital Signs Last Vital Signs Temp Pulse Resp BP Pulse Ox 97.6 F 78 17 112/59 97 10/02/16 17:28 10/02/16 17:32 10/02/16 17:34 10/02/16 17:28 10/02/16 17:32 - Physical Exam Comments: 10/02/16 18:48 GENERAL: Awake, in no acute distress HEAD: No signs of trauma EYES: PERRLA, EOMI, sclera anicteric, conjunctiva clear ENT: Auricles normal inspection, hearing grossly normal, nares patent, oropharynx clear without exudates. Dry mucosa NECK: Normal ROM, supple, no lymphadenopathy, JVD, or masses. LUNGS: Trach functional and connected to ventilator. Good breath sounds with ventilation. HEART: Regular rate and rhythm, normal S1 and S2, no murmurs, rubs or gallops ABDOMEN: Decreased bowel sounds all four quadrants. Soft, nontender. No guarding, no rebound. No masses EXTREMITIES: Skin is doughy. Normal range of motion, no edema. No clubbing or cyanosis. No cords, erythema, or tenderness NEUROLOGICAL: Cranial nerves II through XII grossly intact. Normal speech, normal gait SKIN: Warm, Dry. <Meredith Dixon - Last Filed: 10/02/16 18:47> - Vital Signs Last Vital Signs Temp Pulse Resp BP Pulse Ox 97.6 F 78 17 112/59 97 10/02/16 17:28 10/02/16 17:32 10/02/16 17:34 10/02/16 17:28 10/02/16 17:32 <Gerardo Yuan - Last Filed: 11/26/16 10:03> ED Treatment Course - LABORATORY CBC & Chemistry Diagram: 10/02/16 17:49 10/02/16 17:49 <Meredith Dixon - Last Filed: 10/02/16 18:47> - LABORATORY CBC & Chemistry Diagram: 10/06/16 05:35 10/06/16 05:35 <Gerardo Yuan - Last Filed: 11/26/16 10:03> Medical Decision Making - Medical Decision Making 10/02/16 18:10 First call placed to Dr. Cook's answering service at 18:10. Awaiting call back. Second call placed to Dr. Cook at 18:30. <Meredith Dixon - Last Filed: 10/02/16 18:47> *DC/Admit/Observation/Transfer - Attestations Scribe Attestion: 10/02/16 18:52 Documentation prepared by Meredith Dixon, acting as chief medical director for Gerardo Yuan DO. <Meredith Dixon - Last Filed: 10/02/16 18:47> - Attestations Physician Attestion: 10/02/16 17:47 I, Dr. Gerardo Yuan, attest that this document has been prepared under my direction and personally reviewed by me in its entirety. I further attest, that it accurately reflects all work, treatment, procedures and medical decision -making performed by me. <Gerardo Yuan - Last Filed: 11/26/16 10:03> Diagnosis at time of Disposition: UTI (urinary tract infection), Fever, Hypotension - Discharge Dispostion [facility]position[facility] - Referrals - Patient Instructions - Post Discharge Activity
[2016-10-02] MEDS ORDERED: SODIUM CHLORIDE 0.9% 1000 ML INFUS.BAG IV STA (17:48)
[2016-10-02 18:18] LABS: MCHC 32.6 g/dl (32.0-36.0); MEAN PLT VOLUME 8.8 fl (7.5-11.1); PLATELET COUNT 220 K/MM3 (134-434); RDW 15.8 % (11.6-15.6); WHITE BLOOD COUNT 18.9 K/mm3 (4.0-10.0)
[2016-10-02] MEDS ORDERED: SODIUM CHLORIDE 1,000 ML IV STA (18:19)
[2016-10-02 18:36] LABS: ALBUMIN 2.6 g/dl (3.4-5.0); ANION GAP 8 (8-16); BILIRUBIN,TOTAL 0.4 mg/dL (0.2-1.0); CALCIUM 8.7 mg/dL (8.5-10.1); CO2 33 mmol/L (21-32); CREATININE 0.6 mg/dL (0.55-1.02); GLUCOSE,RANDOM 135 mg/dL (74-106); SGOT/AST 10 U/L (15-37); SGPT/ALT 19 U/L (12-78)
[2016-10-02 18:38] LABS: ALK PHOS 79 U/L (45-117); TROPONIN I < 0.02 ng/ml (0.00-0.05)
[2016-10-02 18:43] LABS: VENOUS BLOOD GAS HCO3 32.5 meq/L (19-25); VENOUS PH 7.44 (7.32-7.42)
[2016-10-02 18:55] LABS: INR 1.34 (0.82-1.09); PROTHROMBIN TIME (PATIENT) 14.8 SEC (9.98-11.88)
[2016-10-02 18:56] LABS: ACTIVATED PTT 30.6 SECONDS (26.9-34.4)
[2016-10-02 19:21] LABS: URINE APPEARANCE CLEAR; URINE BILIRUBIN NEGATIVE (NEGATIVE); URINE BLOOD NEGATIVE (NEGATIVE); URINE COLOR DKYELLOW; URINE GLUCOSE (UA) NEGATIVE (NEGATIVE); URINE KETONE NEGATIVE (NEGATIVE); URINE NITRITE NEGATIVE (NEGATIVE); URINE UROBILINOGEN NEGATIVE E.U./dl (0.2-1.0)
[2016-10-02 19:23] LABS: URINE LEUK ESTERASE 1+ (NEGATIVE); URINE PROTEIN 1+ (NEGATIVE)
[2016-10-02 19:34] LABS: URINE MUCUS RARE; URINE RBC 8 /hpf (0-3); URINE WBC 12 /hpf (3-5)
--- NOTE | 2016-10-02 20:15 | PDOC ---
*Physical Exam - Vital Signs Last Vital Signs Temp Pulse Resp BP Pulse Ox 97.3 F L 78 17 112/59 97 10/02/16 18:14 10/02/16 17:32 10/02/16 17:34 10/02/16 17:28 10/02/16 17:32 <Juan Avery - Last Filed: 10/02/16 20:14> - Vital Signs Last Vital Signs Temp Pulse Resp BP Pulse Ox 97.3 F L 78 17 112/59 97 10/02/16 18:14 10/02/16 17:32 10/02/16 17:34 10/02/16 17:28 10/02/16 17:32 - Physical Exam Comments: 10/02/16 20:16 EKG obtained 19:07. Unusual P axis and short NE, probable junctional tachycardia with undetermined rhythm irregularity. Vent rate 81 bpm. Anterior infarct, age undetermined. Abnormal ECG. 10/02/16 20:[address] Cook, who agreed to admission. <Alice Reyna - Last Filed: 10/02/16 20:17> ED Treatment Course - LABORATORY CBC & Chemistry Diagram: 10/02/16 17:49 10/02/16 17:49 - ADDITIONAL ORDERS Additional order review: Laboratory Results 10/02/16 10/02/16 10/02/16 17:50 17:49 17:49 INR PTT (Actin FS) VBG pH 7.44 H POC VBG pCO2 48.4 POC VBG pO2 119.0 H D Mixed VBG HCO3 32.5 H Sodium 146 H Potassium 3.7 Chloride 105 Carbon Dioxide 33 H Anion Gap 8 BUN 30 H D Creatinine 0.6 Creat Clearance w eGFR > 60 Random Glucose 135 H D Lactic Acid Calcium 8.7 Total Bilirubin 0.4 D AST 10 L ALT 19 D Alkaline Phosphatase 79 D Creatine Kinase 14 L Troponin I < 0.02 Total Protein 6.0 L Albumin 2.6 L Urine Color Urine Appearance Urine pH Ur Specific Jaffrey Urine Protein Urine Glucose (UA) Urine Ketones Urine Blood Urine Nitrite Urine Bilirubin Urine Urobilinogen Ur Leukocyte Esterase Urine RBC Urine WBC Ur Epithelial Cells Urine Mucus Blood Type A POSITIVE Antibody Screen Negative 10/02/16 10/02/16 10/02/16 17:49 17:48 17:48 INR 1.34 H PTT (Actin FS) 30.6 VBG pH POC VBG pCO2 POC VBG pO2 Mixed VBG HCO3 Sodium Potassium Chloride Carbon Dioxide Anion Gap BUN Creatinine Creat Clearance w eGFR Random Glucose Lactic Acid 1.483 Calcium Total Bilirubin AST ALT Alkaline Phosphatase Creatine Kinase Troponin I Total Protein Albumin Urine Color Dkyellow Urine Appearance Clear Urine pH 5.0 Ur Specific Jaffrey 1.028 Urine Protein 1+ H D Urine Glucose (UA) Negative Urine Ketones Negative Urine Blood Negative Urine Nitrite Negative Urine Bilirubin Negative Urine Urobilinogen Negative Ur Leukocyte Esterase 1+ H Urine RBC 8 Urine WBC 12 Ur Epithelial Cells Rare Urine Mucus Rare Blood Type Antibody Screen 10/02/16 17:49 RBC 4.15 MCV 86.0 MCHC 32.6 RDW 15.8 H MPV 8.8 Neutrophils % Y Lymphocytes % Y - Medications Given in the ED: ED Medications Discontinued Medications Generic Name Dose Route Start Last Admin Trade Name Freq PRN Reason Stop Dose Admin Sodium Chloride 1,000 mls @ 1,000 mls/hr 10/02/16 18:19 10/02/16 18:46 Normal Saline - IV 10/02/16 19:18 1,000 mls/hr ASDIR STA Administration Sodium Chloride 855 ml 10/02/16 17:48 10/02/16 18:58 Normal Saline - IV 10/02/16 17:49 Not Given ONCE STA <Juan Avery - Last Filed: 10/02/16 20:14> - LABORATORY CBC & Chemistry Diagram: 10/02/16 17:49 10/02/16 17:49 - ADDITIONAL ORDERS Additional order review: Laboratory Results 10/02/16 10/02/16 10/02/16 17:50 17:49 17:49 INR PTT (Actin FS) VBG pH 7.44 H POC VBG pCO2 48.4 POC VBG pO2 119.0 H D Mixed VBG HCO3 32.5 H Sodium 146 H Potassium 3.7 Chloride 105 Carbon Dioxide 33 H Anion Gap 8 BUN 30 H D Creatinine 0.6 Creat Clearance w eGFR > 60 Random Glucose 135 H D Lactic Acid Calcium 8.7 Total Bilirubin 0.4 D AST 10 L ALT 19 D Alkaline Phosphatase 79 D Creatine Kinase 14 L Troponin I < 0.02 Total Protein 6.0 L Albumin 2.6 L Urine Color Urine Appearance Urine pH Ur Specific Jaffrey Urine Protein Urine Glucose (UA) Urine Ketones Urine Blood Urine Nitrite Urine Bilirubin Urine Urobilinogen Ur Leukocyte Esterase Urine RBC Urine WBC Ur Epithelial Cells Urine Mucus Blood Type A POSITIVE Antibody Screen Negative 10/02/16 10/02/16 10/02/16 17:49 17:48 17:48 INR 1.34 H PTT (Actin FS) 30.6 VBG pH POC VBG pCO2 POC VBG pO2 Mixed VBG HCO3 Sodium Potassium Chloride Carbon Dioxide Anion Gap BUN Creatinine Creat Clearance w eGFR Random Glucose Lactic Acid 1.483 Calcium Total Bilirubin AST ALT Alkaline Phosphatase Creatine Kinase Troponin I Total Protein Albumin Urine Color Dkyellow Urine Appearance Clear Urine pH 5.0 Ur Specific Jaffrey 1.028 Urine Protein 1+ H D Urine Glucose (UA) Negative Urine Ketones Negative Urine Blood Negative Urine Nitrite Negative Urine Bilirubin Negative Urine Urobilinogen Negative Ur Leukocyte Esterase 1+ H Urine RBC 8 Urine WBC 12 Ur Epithelial Cells Rare Urine Mucus Rare Blood Type Antibody Screen 10/02/16 17:49 RBC 4.15 MCV 86.0 MCHC 32.6 RDW 15.8 H MPV 8.8 Neutrophils % Y Lymphocytes % Y - Medications Given in the ED: ED Medications Discontinued Medications Generic Name Dose Route Start Last Admin Trade Name Freq PRN Reason Stop Dose Admin Sodium Chloride 1,000 mls @ 1,000 mls/hr 10/02/16 18:19 10/02/16 18:46 Normal Saline - IV 10/02/16 19:18 1,000 mls/hr ASDIR STA Administration Sodium Chloride 855 ml 10/02/16 17:48 10/02/16 18:58 Normal Saline - IV 10/02/16 17:49 Not Given ONCE STA <Alice Reyna - Last Filed: 10/02/16 20:17> *DC/Admit/Observation/Transfer - Discharge Dispostion Admit: Yes <Juan Avery - Last Filed: 10/02/16 20:14> <Alice Reyna - Last Filed: 10/02/16 20:17> Diagnosis at time of Disposition: UTI (urinary tract infection), Fever, Hypotension - Referrals Referrals: Royer Verduzco MD [Primary Care Provider] - - Patient Instructions - Post Discharge Activity
[2016-10-02] MEDS ORDERED: PIPERACILLIN/TAZOB 3.375 GM 3.375 GM in DEXTROSE 5%-WATER - 50 ML IVPB ONE (20:16)
[2016-10-02] MEDS ORDERED: PIPERACILLIN/TAZOB 3.375 GM 50 ML IVPB ONE (20:40)
[2016-10-02 20:50] LABS: PLATELET ESTIMATE ADEQUATE (NORMAL)
[2016-10-02] MEDS ORDERED: D5-1/2NS+20 MEQ KCL - 1,000 ML IV SCH (22:45)
[2016-10-03] MEDS ORDERED: ALBUTEROL SO4 2.5/IPRATROPIUM 0.5 INH SOL 3 ML VIAL.NEB. NEB ONE (00:12)
[2016-10-03] MEDS: ALBUTEROL SO4 2.5/IPRATROPIUM 0.5 INH SOL 3 ML VIAL.NEB. NEB SCH ×4 (00:18→17:20)
[2016-10-03] MEDS: PIPERACILLIN/TAZOB 3.375 GM/50 ML PRE-DOCKED IVPB SCH ×4 (02:25→17:33)
[2016-10-03] MEDS ORDERED: methylPREDNISolone NA SUCC 40 MG/1 ML VIAL ONE (02:42)
[2016-10-03] MEDS: methylPREDNISolone NA SUCC 40 MG/1 ML VIAL IVPB SCH ×4 (03:40→21:50)
[2016-10-03 05:11] LABS: BASOPHIL 0.4 % (0-2.0); EOSINOPHIL 1.5 % (0-4.5); MCH 27.7 pg (25.7-33.7); MCHC 32.5 g/dl (32.0-36.0); MEAN CELL VOLUME 85.4 fl (80-96); MEAN PLT VOLUME 8.6 fl (7.5-11.1); NEUTROPHILS 87.2 % (42.8-82.8); PLATELET COUNT 193 K/MM3 (134-434); RDW 15.9 % (11.6-15.6); WHITE BLOOD COUNT 14.9 K/mm3 (4.0-10.0)
[2016-10-03 05:45] LABS: ALBUMIN 2.3 g/dl (3.4-5.0); ANION GAP 8 (8-16); BILIRUBIN,TOTAL 0.4 mg/dL (0.2-1.0); CO2 32 mmol/L (21-32); CREATININE 0.5 mg/dL (0.55-1.02); GLUCOSE,RANDOM 109 mg/dL (74-106); MAGNESIUM 2.1 mg/dL (1.8-2.4); SGOT/AST 13 U/L (15-37); SGPT/ALT 15 U/L (12-78); TOT PROT 5.6 g/dl (6.4-8.2)
[2016-10-03 05:48] LABS: ALK PHOS 65 U/L (45-117); TROPONIN I < 0.02 ng/ml (0.00-0.05)
[2016-10-03] MEDS: INSULIN SLIDING SCALE (NOVOLOG) 1 VIAL SQ SCH ×4 (07:40→21:54)
[2016-10-03] MEDS ORDERED: clonazePAM 0.5 MG TABLET ONE (09:08)
[2016-10-03] MEDS: ARTIFICIAL TEARS (POLYVINYL ALCOHOL 1.4%) OPTH DROPS OU SCH ×2 (09:37→21:50)
[2016-10-03] MEDS: PANTOPRAZOLE 20 MG TABLET (FP) PO SCH (09:38)
[2016-10-03] MEDS: DOCUSATE SODIUM 100 MG CAPSULE (FP) PO SCH (09:38)
[2016-10-03] MEDS: clonazePAM 0.5 MG TABLET PO SCH ×2 (09:38→21:50)
[2016-10-03] MEDS: LORATADINE 10 MG TABLET PO SCH (09:38)
[2016-10-03] MEDS: FERROUS SO4 325 MG TABLET (FP) PO SCH ×2 (09:38→21:50)
[2016-10-03] MEDS: RIVAROXABAN 20 MG TABLET PO SCH (09:38)
[2016-10-03] MEDS: RANITIDINE HCL 150 MG TABLET (FP) PO SCH (09:38)
[2016-10-03] MEDS ORDERED: DEXTROSE 5%-NORMAL SALINE 1,000 ML IV SCH (13:30)
--- NOTE | 2016-10-03 15:38 | CON.CARD ---
Consult Consult Specialty:: Cardiology Referred by:: Dr. Cook Reason for Consultation:: Pleural effusion - History of Present Illness History of Present Illness: 81 yo female with paroxysmal atrial fibrillation (on Xarelto), prior cardiac arrest with [employer] AICD (implanted ~ 5 years ago?), reported CHF/COPD, trach , iron deficiency anemia, hypertension, hyperlipidemia, who was admitted from group home with reported fevers, abd pain, and altered mental status. Unable to obtain history from patient as she is non-verbal. Cardiology consult was requested for evaluation of small pleural effusions noted on 10/02/16 CXR. - History Source History Provided By: Medical Record Limitations to Obtaining History: Unresponsive - Past Medical History Cardio/Vascular: Yes: AFIB (Paroxysmal), CHF, HTN, Hyperlipdemia, Other (h/o cardiac arrest s/p AICD) Pulmonary: Yes: COPD, Other (respiratory failure) Gastrointestinal: Yes: GERD - Past Surgical History Past Surgical History: Yes: AICD (Medtronic, implanted following cardiac arrest) , Cataract Removal (2011) - Alcohol/Substance Use Hx Alcohol Use: No - Smoking History Smoking history: Unknown if ever smoked Have you smoked in the past 12 months: No Aproximately how many cigarettes per day: 0 Home Medications - Allergies Allergies/Adverse Reactions: Allergies Allergy/AdvReac Type Severity Reaction Status Date / Time doxycycline Allergy Intermediate Verified 10/02/16 17:28 CLAMS Allergy Intermediate Hives Uncoded 10/02/16 17:28 - Home Medications Home Medications: Ambulatory Orders Acetaminophen [Tylenol] 325 mg PO Q4H 10/02/16 Albuterol 0.083% Nebulizer Yady [Ventolin 0.083% Nebulizer Soln -] 1 neb NEB Q6H 10/02/16 Albuterol 2.5/Ipratropium 0.5 [Duoneb -] 1 neb IH QID 10/02/16 Ascorbic Acid [Vitamin C] 500 mg PO DAILY 10/02/16 Bacitracin 30 gm TP DAILY 10/02/16 Clonazepam [KlonoPIN] 0.5 mg PO BID 10/02/16 Cyproheptadine [Periactin -] 4 mg PO Q12H 10/02/16 Docusate Sodium [Colace -] 300 mg PO DAILY 10/02/16 Ferrous Sulfate [Feosol] 325 mg PO BID 10/02/16 Hypromellose 0.5% Opth Soln [Artificial Tears] 1 drop OU BID 10/02/16 Loratadine [Claritin -] 10 mg PO DAILY 10/02/16 Multivitamin [Poly-Vitamin] 1 each PO DAILY 10/02/16 Omeprazole 20 mg PO DAILY 10/02/16 Prednisone [Deltasone -] 20 mg PO DAILY 10/02/16 Ranitidine HCl [Zantac] 150 mg PO DAILY 10/02/16 Rivaroxaban [Xarelto -] 20 mg PO DAILY 10/02/16 Simvastatin [Zocor -] 20 mg PO HS 10/02/16 Family Disease History - Family Disease History Family History: Unable to Obtain Review of Systems Unable to obtain ROS, reason: Patient non-verbal Vital Signs: Vital Signs Temperature 99.5 F 10/03/16 07:30 Pulse Rate 71 10/03/16 11:56 Respiratory Rate 13 10/03/16 13:25 Blood Pressure 90/52 10/03/16 11:56 O2 Sat by Pulse Oximetry (%) 95 10/03/16 11:56 Constitutional: Yes: No Distress Eyes: Yes: Conjunctiva Clear HENT: Yes: Atraumatic, Normocephalic Respiratory: Yes: CTA Bilaterally Gastrointestinal: Yes: Normal Bowel Sounds, Soft. No: Distention, Tenderness JVD: No Carotid Bruit: No PMI: Non-Displaced Heart Sounds: Yes: S1, S2 Murmur: No: Systolic Murmur Edema: No Peripheral Pulses WNL: Yes Neurological: Yes: Unresponsive - Other Data Labs, Other Data: CBC, BMP 10/03/16 04:58 10/03/16 04:58 INR, PTT INR 1.34 (0.82-1.09) H 10/02/16 17:49 Troponin, BNP 10/03/16 04:58 Troponin I < 0.02 B-Natriuretic Peptide 1131.23 H Troponin, BNP 10/03/16 04:58 Troponin I < 0.02 B-Natriuretic Peptide 1131.23 H 10/02/16 ECG: Ectopic atrial rhythm with non-specific ST-T abnormalties, poor R wave progression Echo: Report Reviewed (04/18/16 Echocardiogram: Normal LV size and systolic function, trace to mild MR.) Imaging - Results Chest X-ray: Report Reviewed (10/03/16: No significant effusions.), Image Reviewed Assessment/Plan 81 yo female with paroxysmal atrial fibrillation (on Xarelto), prior cardiac arrest with Medtronic AICD (implanted ~ 5 years ago?), reported CHF/COPD, trach , iron deficiency anemia, hypertension, hyperlipidemia, UTIs, and GI bleed, who was admitted from group home with reported fevers, abd pain, and altered mental status. Unable to obtain history from patient as she is non-verbal. Cardiology consult was requested for evaluation of small pleural effusions noted on 10/02/16 CXR. Currently no signifcant effusions on CXR today (10/03). Although patient has elevated BNP of 1131, patient does not appear to be in CHF on physical exam (no JVD or peripheral edema). Patient's AICD was last interrogated on 04/17/16 and demonstrated normal function (mode VVI, lower rate 50 bpm, only V-paced 0.6%, battery life ~ 2 years ). Echo on 04/18/16 demonstrated normal LV size and systolic function, trace to mild MR. RECS: No active cardiac issues at this time. Patient does not appear volume overloaded and would not treat patient's elevated BNP given only very small pleural effusions on admission (seen on prior CXR) and no other clinical evidence of CHF. Continue Xarelto for afib thrombembolic prophylaxis. No further cardiac testing or intervention is required at this time. Further recs as per primary team and other consult services. Will see prn. Please call with specific questions.
--- NOTE | 2016-10-03 16:31 | HP ---
Admitting History and Physical - Primary Care Physician PCP: Jacky Cook - Admission Chief Complaint: ALTERED MENTAL STATUS/LETHARGY/DISTRESS History of Present Illness: The patient is an 81 year old female, with a significant past medical history of of anemia, AFib, CHF, cardiac arrest 1998, hypertension, hyperlipidemia, COPD(s/p trach due to respiratory failure, UTIs, and GI bleed, who presents to the emergency department sent from [facility], for further evaluation of abdominal pain since this morning. Per [facility] records, the patient was complaining of abdominal pain earlier this morning. The patients Tmax in [place] was 100.8F and her bp was 139/66. The patient was given tylenol. The patient was able to eat lunch. After lunch, the patients vital signs were rechecked and her Tmax was 88.8, while her bp was 108/72. Per records, Dr. Verduzco called and ordered the patient be sent to [facility] ER for further evaluation. Per previous records the patient was recently admitted to the ED on 08/23/16 for a UTI. The patients history is limited as she is nonverbal. History Source: Medical Record - Past Medical History Cardiovascular: Yes: AFIB (Paroxysmal), CHF, HTN, Hyperlipdemia, Other (h/o cardiac arrest s/p AICD) Pulmonary: Yes: COPD, Other (respiratory failure) Gastrointestinal: Yes: GERD Heme/Onc: Yes: Anemia - Past Surgical History Past Surgical History: Yes: AICD ([employer], implanted following cardiac arrest) , Cataract Removal (2011) - Smoking History Smoking history: Unknown if ever smoked Have you smoked in the past 12 months: No Aproximately how many cigarettes per day: 0 - Alcohol/Substance Use Hx Alcohol Use: No Home Medications - Allergies Allergies/Adverse Reactions: Allergies Allergy/AdvReac Type Severity Reaction Status Date / Time doxycycline Allergy Intermediate Verified 10/02/16 17:28 CLAMS Allergy Intermediate Hives Uncoded 10/02/16 17:28 - Home Medications Home Medications: Ambulatory Orders Acetaminophen [Tylenol] 325 mg PO Q4H 10/02/16 Albuterol 0.083% Nebulizer Yady [Ventolin 0.083% Nebulizer Soln -] 1 neb NEB Q6H 10/02/16 Albuterol 2.5/Ipratropium 0.5 [Duoneb -] 1 neb IH QID 10/02/16 Ascorbic Acid [Vitamin C] 500 mg PO DAILY 10/02/16 Bacitracin 30 gm TP DAILY 10/02/16 Clonazepam [KlonoPIN] 0.5 mg PO BID 10/02/16 Cyproheptadine [Periactin -] 4 mg PO Q12H 10/02/16 Docusate Sodium [Colace -] 300 mg PO DAILY 10/02/16 Ferrous Sulfate [Feosol] 325 mg PO BID 10/02/16 Hypromellose 0.5% Opth Soln [Artificial Tears] 1 drop OU BID 10/02/16 Loratadine [Claritin -] 10 mg PO DAILY 10/02/16 Multivitamin [Poly-Vitamin] 1 each PO DAILY 10/02/16 Omeprazole 20 mg PO DAILY 10/02/16 Prednisone [Deltasone -] 20 mg PO DAILY 10/02/16 Ranitidine HCl [Zantac] 150 mg PO DAILY 10/02/16 Rivaroxaban [Xarelto -] 20 mg PO DAILY 10/02/16 Simvastatin [Zocor -] 20 mg PO HS 10/02/16 Review of Systems - Review of Systems Constitutional: reports: Weakness Eyes: reports: No Symptoms HENT: reports: No Symptoms Neck: reports: No Symptoms Cardiovascular: reports: No Symptoms Respiratory: reports: No Symptoms, Other Genitourinary: reports: Incontinence Musculoskeletal: reports: Muscle Weakness Integumentary: reports: Other Neurological: reports: Pre-Existing Deficit, Weakness Endocrine: reports: No Symptoms Physical Examination Vital Signs: Vital Signs Temperature 99.5 F 10/03/16 07:30 Pulse Rate 71 10/03/16 11:56 Respiratory Rate 13 10/03/16 13:25 Blood Pressure 90/52 10/03/16 11:56 O2 Sat by Pulse Oximetry (%) 95 10/03/16 11:56 Constitutional: Yes: Mild Distress Eyes: Yes: WNL HENT: Yes: WNL Neck: Yes: WNL Cardiovascular: Yes: WNL Respiratory: Yes: Other (TRACHEOSTOMY) Gastrointestinal: Yes: WNL Renal/: Yes: Incontinence Musculoskeletal: Yes: Muscle Weakness Extremities: Yes: Other Edema: No Peripheral Pulses WNL: Yes Integumentary: Yes: WNL Wound/Incision: Yes: Clean/Dry Neurological: Yes: Pre-Existing Deficit ...Motor Strength: LLE, RLE Psychiatric: Yes: Other Labs: CBC, BMP 10/03/16 04:58 10/03/16 04:58 Problem List - Problems (1) Anemia Code(s): D64.9 - ANEMIA, UNSPECIFIED Qualifiers: Anemia type: iron deficiency (2) UTI (urinary tract infection) Code(s): N39.0 - URINARY TRACT INFECTION, SITE NOT SPECIFIED Qualifiers: (3) AICD (automatic cardioverter/defibrillator) present Code(s): Z95.810 - PRESENCE OF AUTOMATIC (IMPLANTABLE) CARDIAC DEFIBRILLATOR (4) Acute and chronic respiratory failure with hypercapnia Code(s): J96.22 - ACUTE AND CHRONIC RESPIRATORY FAILURE WITH HYPERCAPNIA (5) Altered mental status Code(s): R41.82 - ALTERED MENTAL STATUS, UNSPECIFIED Qualifiers: Altered mental status type: unspecified Qualified Code(s): R41.82 - Altered mental status, unspecified Assessment/Plan SEPSIS WORKUP IV ABX ID CONSULT PILM EVAL WITH TRACHEOSTOMY CARDIO EVAL 02 SUPPORT CHECK AMMONIA LEVEL CT HEAD
[2016-10-03] MEDS: ATORVASTATIN CA 10 MG TABLET (FP) PO SCH (21:50)
[2016-10-03] MEDS: DEXTROSE 5%-0.45% SALINE 1,000 ML IV SCH (21:50)
[2016-10-04] MEDS: methylPREDNISolone NA SUCC 40 MG/1 ML VIAL IVPB SCH ×4 (03:24→21:24)
[2016-10-04] MEDS: PIPERACILLIN/TAZOB 3.375 GM/50 ML PRE-DOCKED IVPB SCH ×2 (03:24→09:35)
[2016-10-04] MEDS: ALBUTEROL SO4 2.5/IPRATROPIUM 0.5 INH SOL 3 ML VIAL.NEB. NEB SCH ×4 (06:02→18:42)
[2016-10-04] MEDS: INSULIN SLIDING SCALE (NOVOLOG) 1 VIAL SQ SCH ×4 (06:36→21:27)
[2016-10-04 08:24] LABS: BASOPHIL 0.1 % (0-2.0); MCH 27.4 pg (25.7-33.7); MCHC 32.1 g/dl (32.0-36.0); MEAN CELL VOLUME 85.5 fl (80-96); MEAN PLT VOLUME 9.1 fl (7.5-11.1); NEUTROPHILS 91.8 % (42.8-82.8); PLATELET COUNT 184 K/MM3 (134-434); WHITE BLOOD COUNT 12.2 K/mm3 (4.0-10.0)
[2016-10-04 08:28] LABS: MCH 27.7 pg (25.7-33.7); MCHC 32.6 g/dl (32.0-36.0); MEAN CELL VOLUME 85.2 fl (80-96); PLATELET COUNT 183 K/MM3 (134-434); WHITE BLOOD COUNT 12.1 K/mm3 (4.0-10.0)
[2016-10-04 08:52] LABS: ALBUMIN 2.3 g/dl (3.4-5.0); ANION GAP 9 (8-16); CALCIUM 7.8 mg/dL (8.5-10.1); CO2 28 mmol/L (21-32); CREATININE 0.6 mg/dL (0.55-1.02); GLUCOSE,RANDOM 156 mg/dL (74-106); SGOT/AST 8 U/L (15-37); SGPT/ALT 15 U/L (12-78)
[2016-10-04 09:01] LABS: ALK PHOS 60 U/L (45-117); BILIRUBIN,TOTAL 0.3 mg/dL (0.2-1.0); THYROID STIMULATING HORMONE 0.47 uIU/ml (0.358-3.74); TOT PROT 5.7 g/dl (6.4-8.2)
[2016-10-04] MEDS ORDERED: PT OWN MED DRAWER 7, Y5N ONE ×2 (09:31→20:34)
[2016-10-04] MEDS: FERROUS SO4 325 MG TABLET (FP) PO SCH ×2 (09:34→21:26)
[2016-10-04] MEDS: DOCUSATE SODIUM 100 MG CAPSULE (FP) PO SCH (09:34)
[2016-10-04] MEDS: ARTIFICIAL TEARS (POLYVINYL ALCOHOL 1.4%) OPTH DROPS OU SCH ×2 (09:35→21:26)
[2016-10-04] MEDS: RANITIDINE HCL 150 MG TABLET (FP) PO SCH (09:35)
[2016-10-04] MEDS: LORATADINE 10 MG TABLET PO SCH (09:35)
[2016-10-04] MEDS: PANTOPRAZOLE 20 MG TABLET (FP) PO SCH (09:35)
[2016-10-04] MEDS: clonazePAM 0.5 MG TABLET PO SCH ×2 (09:35→21:27)
[2016-10-04] MEDS: RIVAROXABAN 20 MG TABLET PO SCH (09:35)
--- NOTE | 2016-10-04 11:00 | PN ---
Progress Note (short form) - Note Progress Note: ID Consult dictated Fever, hypotension, tachycardia, altered mental status- probable sepsis UTI, possible sepsis secondary to UTI Toxic metabolic encephalopathy Chronic respiratory failure L pleural effusion, possible infiltrate await c/s Empiric ertapenem ( hx R Morganella) + stat dose Vancomycin
[2016-10-04] MEDS ORDERED: VANCOMYCIN 1 GRAM (PRE-DOCKED) 250 ML IVPB ONE (11:07)
--- NOTE | 2016-10-04 11:07 | PN ---
Progress Note, Physician History of Present Illness: ON VENT - Current Medication List Current Medications: Active Medications Acetaminophen (Tylenol -) 650 mg PO Q4H PRN Albuterol/Ipratropium (Duoneb -) 1 amp NEB QIDR [facility] Last Admin: 10/04/16 06:02 Dose: 1 amp Artificial Tears (Artificial Tears) 1 drop OU BID [facility] Last Admin: 10/04/16 09:35 Dose: 1 drop Atorvastatin Calcium (Lipitor -) 10 mg PO HS [facility] Last Admin: 10/03/16 21:50 Dose: 10 mg Clonazepam (Klonopin -) 0.5 mg PO BID [facility] Last Admin: 10/04/16 09:35 Dose: 0.5 mg Docusate Sodium (Colace -) 300 mg PO DAILY [facility] Last Admin: 10/04/16 09:34 Dose: 300 mg Ferrous Sulfate (Feosol -) 325 mg PO BID [facility] Last Admin: 10/04/16 09:34 Dose: 325 mg Dextrose/Sodium Chloride (D5-1/2ns -) 1,000 mls @ 83 mls/hr IV ASDIR [facility] Last Admin: 10/03/16 21:50 Dose: 83 mls/hr Insulin Aspart (Novolog Vial Sliding Scale -) 1 vial SQ ACHS [facility] PRN Reason: Protocol Last Admin: 10/04/16 06:36 Dose: Not Given Loratadine (Claritin -) 10 mg PO DAILY [facility] Last Admin: 10/04/16 09:35 Dose: 10 mg Methylprednisolone Sodium Succinate (Solu-Medrol -) 40 mg IVPB Q6H-IV [facility] Last Admin: 10/04/16 09:34 Dose: 40 mg Pantoprazole Sodium (Protonix -) 20 mg PO DAILY [facility] Last Admin: 10/04/16 09:35 Dose: 20 mg Piperacillin Sod/Tazobactam Sod (Zosyn 3.375gm Ivpb (Pre-Docked)) 3.375 gm IVPB Q8H-IV [facility] PRN Reason: Protocol Last Admin: 10/04/16 09:35 Dose: 3.375 gm Ranitidine HCl (Zantac -) 150 mg PO DAILY [facility] Last Admin: 10/04/16 09:35 Dose: 150 mg Rivaroxaban (Xarelto -) 20 mg PO DAILY [facility] Last Admin: 10/04/16 09:35 Dose: 20 mg - Objective Vital Signs: Vital Signs Temperature 98.5 F 10/04/16 06:00 Pulse Rate 77 10/04/16 06:00 Respiratory Rate 14 10/04/16 06:20 Blood Pressure 100/51 10/04/16 06:00 O2 Sat by Pulse Oximetry (%) 96 10/03/16 21:00 Cardiovascular: Yes: S1, S2 Respiratory: Yes: Diminished, Mechanically Ventilated Gastrointestinal: Yes: Normal Bowel Sounds, Soft Edema: No Labs: CBC, BMP 10/04/16 06:50 10/04/16 06:50 INR, PTT INR 1.34 (0.82-1.09) H 10/02/16 17:49 Problem List - Problems (1) Sepsis Assessment/Plan: IV ABX AWAIT CULTURES ID CONSULT Code(s): A41.9 - SEPSIS, UNSPECIFIED ORGANISM (2) Pneumonia Assessment/Plan: IV ABX PULM ON CASE VENT SETTINGS PER PULM Code(s): J18.9 - PNEUMONIA, UNSPECIFIED ORGANISM (3) COPD (chronic obstructive pulmonary disease) Assessment/Plan: NEBS Code(s): J44.9 - CHRONIC OBSTRUCTIVE PULMONARY DISEASE, UNSPECIFIED (4) Chronic respiratory failure Assessment/Plan: ABOVE Code(s): J96.10 - CHRONIC RESPIRATORY FAILURE, UNSP W HYPOXIA OR HYPERCAPNIA Qualifiers: Respiratory failure complication: hypercapnia Qualified Code(s): J96.12 - Chronic respiratory failure with hypercapnia (5) PAF (paroxysmal atrial fibrillation) Assessment/Plan: ON XARELTO CARDIO ON BOARD Code(s): I48.0 - PAROXYSMAL ATRIAL FIBRILLATION (6) Pleural effusion Assessment/Plan: CARDIO CONSULT NOTED Code(s): J90 - PLEURAL EFFUSION, NOT ELSEWHERE CLASSIFIED
--- NOTE | 2016-10-04 11:43 | CONS ---
DATE OF CONSULTATION: DATE OF DICTATION: 10/04/2016 HISTORY OF PRESENT ILLNESS: The patient is an 81-year-old female with a history of chronic respiratory failure with multiple recent hospitalizations, now evaluated for sepsis. History was obtained from the chart as she cannot give a history secondary to her mental status. At the residential, she had apparently complained of some abdominal discomfort. She was noted to be febrile, tachycardic, hypotensive, and with altered mentation. She was transferred to the emergency room, where a white blood cell count was 18.9. Urinalysis showed some white cells. Chest x-ray showed a left pleural effusion, possible infiltrate. She is awake. However, she is unable to offer any complaints. No reports of shaking chills, labored breathing, cough, sputum production, grossly purulent urine, or infected decubiti. PAST MEDICAL HISTORY: Positive for chronic respiratory failure. She is status post cardiopulmonary arrest, history of tracheostomy, atrial fibrillation, COPD, chronic left pleural effusion, hypertension, congestive heart failure, hyperlipidemia, gastroesophageal reflux, history of VRE in the urine. Recent hospital admissions in both July and August for urinary tract infection and altered mentation. PAST SURGICAL HISTORY: Status post right axillary abscess and implanted defibrillator. ALLERGIES: DOXYCYCLINE and SHELLFISH. MEDICATIONS: Include: 1. Tylenol. 2. Vitamin C. 3. Klonopin. 4. Periactin. 5. Colace. 6. Omeprazole. SOCIAL HISTORY: long term resident. Dependent in activities of daily living. Chronic respiratory failure, on the ventilator. Former smoker. SYSTEMS REVIEW:Neurologic: Positive for altered mentation. Cardiac: Negative chest pain or palpitations. Respiratory: As per HPI. Gastrointestinal: Negative vomiting or diarrhea. Genitourinary: Positive for urinary tract infection. LABORATORY DATA: White count 18.9, presently 12.1, hematocrit 28.3, platelet count 183. BUN 31, creatinine 0.6. Urinalysis: 12 white cells. Chest x-ray shows increased markings at the left base consistent with chronic left pleural effusion and possible left lower lobe infiltrate. PHYSICAL EXAMINATION: General: She is awake. She is in no acute distress. Cachectic. Vital Signs: Temperature 98.5, blood pressure 100/51, pulse 77, regular, respirations 18 per minute. HEENT: Sclerae anicteric. Neck: The patient is status post tracheostomy. Cardiac: Heart sounds irregular S1, S2. Lungs: Air entry bilaterally. Abdomen: Soft. No tenderness elicited. No mass, rebound, or rigidity. Extremities: Negative for edema. IMPRESSION: 1. Fever, hypotension, tachycardia, altered mental status, probable sepsis. 2. Urinary tract infection, possible sepsis secondary to urinary tract infection. 3. Toxic metabolic encephalopathy. 4. Chronic respiratory failure. 5. Left pleural effusion, possible infiltrate. 6. History of resistant urinary tract pathogens. RECOMMENDATIONS: Await culture results. Empiric antibiotic coverage with ertapenem and stat dose vancomycin. Continue ventilatory and hemodynamic support. Contact precautions. Will follow. Thank you for the kind referral. JAXON MTZ M.D. [id number]
[2016-10-04] MEDS: DEXTROSE 5%-0.45% SALINE 1,000 ML IV SCH (12:06)
--- NOTE | 2016-10-04 12:24 | CON.PULM ---
Consult Consult Specialty:: PULMONARY Referred by:: Dr. Cook Reason for Consultation:: pneumonia, respiratory failure - History of Present Illness Chief Complaint: fever History of Present Illness: 81yo female with h/o HTN, hyperlipidemia, COPD, vent dependent chronic respiratory failure, atrial fibrillation on anticoagulation who was sent from the care home for fevers and altered mental status. Pt nonverbal, unable to provide further history at this time. Pt arousable but does not consistently respond. Shakes head no when asked if having shortness of breath, cough, congestion or chest pain. CXR showing LLL infiltrate as well as small effusions. - History Source History Provided By: Medical Record Limitations to Obtaining History: Clinical Condition - Past Medical History Cardio/Vascular: Yes: AFIB (Paroxysmal), CHF, HTN, Hyperlipdemia, Other (h/o cardiac arrest s/p AICD) Pulmonary: Yes: COPD, Other (respiratory failure) Gastrointestinal: Yes: GERD - Past Surgical History Past Surgical History: Yes: AICD ([employer], implanted following cardiac arrest) , Cataract Removal (2011) - Alcohol/Substance Use Hx Alcohol Use: No - Smoking History Smoking history: Unknown if ever smoked Have you smoked in the past 12 months: No Aproximately how many cigarettes per day: 0 Home Medications - Allergies Allergies/Adverse Reactions: Allergies Allergy/AdvReac Type Severity Reaction Status Date / Time doxycycline Allergy Intermediate Verified 10/02/16 17:28 CLAMS Allergy Intermediate Hives Uncoded 10/02/16 17:28 - Home Medications Home Medications: Ambulatory Orders Acetaminophen [Tylenol] 325 mg PO Q4H 10/02/16 Albuterol 0.083% Nebulizer Yady [Ventolin 0.083% Nebulizer Soln -] 1 neb NEB Q6H 10/02/16 Albuterol 2.5/Ipratropium 0.5 [Duoneb -] 1 neb IH QID 10/02/16 Ascorbic Acid [Vitamin C] 500 mg PO DAILY 10/02/16 Bacitracin 30 gm TP DAILY 10/02/16 Clonazepam [KlonoPIN] 0.5 mg PO BID 10/02/16 Cyproheptadine [Periactin -] 4 mg PO Q12H 10/02/16 Docusate Sodium [Colace -] 300 mg PO DAILY 10/02/16 Ferrous Sulfate [Feosol] 325 mg PO BID 10/02/16 Hypromellose 0.5% Opth Soln [Artificial Tears] 1 drop OU BID 10/02/16 Loratadine [Claritin -] 10 mg PO DAILY 10/02/16 Multivitamin [Poly-Vitamin] 1 each PO DAILY 10/02/16 Omeprazole 20 mg PO DAILY 10/02/16 Prednisone [Deltasone -] 20 mg PO DAILY 10/02/16 Ranitidine HCl [Zantac] 150 mg PO DAILY 10/02/16 Rivaroxaban [Xarelto -] 20 mg PO DAILY 10/02/16 Simvastatin [Zocor -] 20 mg PO HS 10/02/16 Family Disease History - Family Disease History Family History: Unable to Obtain Review of Systems Unable to obtain ROS, reason: pt nonverbal Physical Exam Vital Sings: Vital Signs Temperature 98.5 F 10/04/16 06:00 Pulse Rate 77 10/04/16 06:00 Respiratory Rate 14 10/04/16 10:45 Blood Pressure 100/51 10/04/16 06:00 O2 Sat by Pulse Oximetry (%) 96 10/03/16 21:00 Constitutional: Yes: Other (vented, arousable) Eyes: Yes: Conjunctiva Clear, EOM Intact HENT: Yes: Atraumatic, Normocephalic Neck: Yes: Supple, Trachea Midline Cardiovascular: Yes: Pulse Irregular Respiratory: Yes: Rhonchi ...Clubbing: No Gastrointestinal: Yes: Normal Bowel Sounds, Soft. No: Tenderness Edema: No Labs: CBC, BMP 10/04/16 06:50 10/04/16 06:50 Imaging - Results Chest X-ray: Report Reviewed, Image Reviewed (LLL infiltrate) Problem List - Problems (1) Pneumonia Code(s): J18.9 - PNEUMONIA, UNSPECIFIED ORGANISM (2) UTI (urinary tract infection) Code(s): N39.0 - URINARY TRACT INFECTION, SITE NOT SPECIFIED Qualifiers: (3) COPD (chronic obstructive pulmonary disease) Code(s): J44.9 - CHRONIC OBSTRUCTIVE PULMONARY DISEASE, UNSPECIFIED (4) Chronic respiratory failure Code(s): J96.10 - CHRONIC RESPIRATORY FAILURE, UNSP W HYPOXIA OR HYPERCAPNIA Qualifiers: Respiratory failure complication: hypercapnia Qualified Code(s): J96.12 - Chronic respiratory failure with hypercapnia (5) HTN (hypertension) Code(s): I10 - ESSENTIAL (PRIMARY) HYPERTENSION (6) PAF (paroxysmal atrial fibrillation) Code(s): I48.0 - PAROXYSMAL ATRIAL FIBRILLATION (7) Pleural effusion Code(s): J90 - PLEURAL EFFUSION, NOT ELSEWHERE CLASSIFIED Assessment/Plan Pneumonia UTI Vent Dependent Chronic Respiratory Failure COPD Exacerbation Atrial Fibrillation - IV antibiotics to cover health care acquired organisms - f/u cultures - continue medrol, can start to taper in AM - inhaled bronchodilators - can attempt spontaneous breathing trials when more stable - titrate O2 to keep SpO2 >90% - enteral feeds - DVT/GI prophylaxis Thank you for this consult Ibrahima Ferris MD
[2016-10-04] MEDS: ERTAPENEM SODIUM 1 GM/50 ML PRE-DOCKED IVPB SCH (12:40)
--- NOTE | 2016-10-04 13:31 | EKG ---
Test Reason : Blood Pressure : / mmHG Vent. Rate : 081 BPM Atrial Rate : 081 BPM P-R Int : 120 ms QRS Dur : 080 ms QT Int : 356 ms P-R-T Axes : -72 -15 029 degrees QTc Int : 413 ms UNUSUAL P AXIS AND SHORT [place], PROBABLE JUNCTIONAL TACHYCARDIA WITH UNDETERMINED RHYTHM IRREGULARITY ANTERIOR INFARCT (CITED ON OR BEFORE 15-APR-2016) ABNORMAL ECG WHEN COMPARED WITH ECG OF 23-AUG-2016 13:10, JUNCTIONAL RHYTHM HAS REPLACED SINUS RHYTHM QUESTIONABLE CHANGE IN INITIAL FORCES OF SEPTAL LEADS Confirmed by FILOMENA CAMACHO MD ([id number]) on 10/04/2016 1:30:52 PM Referred By: Confirmed By:FILOMENA CAMACHO MD
[2016-10-04] MEDS: ACETAMINOPHEN 325 MG TABLET (FP) PO PRN (13:58)
--- NOTE | 2016-10-04 18:04 | CONSULT ---
Consult Consult Specialty:: Nephrology Reason for Consultation:: azotemia and hypernatremia - History of Present Illness Chief Complaint: sent in [place] for [place] History of Present Illness: Pt is an 81 year old female with pmhx of anemia, a-fib, CHF, HTN, cardiac arrest , CODP and chronic respiratory failure who was sent in from the [place] for evaluation of fever. She was found to have a PNA. I was called to evaluate her for azotemia and hypernatremia. Pt also had a change in mental status. Pts sone is at bedside and helped with history. He says he last saw her on Sunday when she was in her usual state of health. She has a trache and is on a vent. She shakes her head to respond. She does feel better today. - History Source History Provided By: Medical Record - Past Medical History Cardio/Vascular: Yes: AFIB (Paroxysmal), CHF, HTN, Hyperlipdemia, Other (h/o cardiac arrest s/p AICD) Pulmonary: Yes: COPD, Other (respiratory failure) Gastrointestinal: Yes: GERD - Past Surgical History Past Surgical History: Yes: AICD ([employer], implanted following cardiac arrest) , Cataract Removal (2011) - Alcohol/Substance Use Hx Alcohol Use: No - Smoking History Smoking history: Unknown if ever smoked Have you smoked in the past 12 months: No Aproximately how many cigarettes per day: 0 Home Medications - Allergies Allergies/Adverse Reactions: Allergies Allergy/AdvReac Type Severity Reaction Status Date / Time doxycycline Allergy Intermediate Verified 10/02/16 17:28 CLAMS Allergy Intermediate Hives Uncoded 10/02/16 17:28 - Home Medications Home Medications: Ambulatory Orders Acetaminophen [Tylenol] 325 mg PO Q4H 10/02/16 Albuterol 0.083% Nebulizer Yady [Ventolin 0.083% Nebulizer Soln -] 1 neb NEB Q6H 10/02/16 Albuterol 2.5/Ipratropium 0.5 [Duoneb -] 1 neb QID 10/02/16 Ascorbic Acid [Vitamin C] 500 mg PO DAILY 10/02/16 Bacitracin 30 gm TP DAILY 10/02/16 Clonazepam [KlonoPIN] 0.5 mg PO BID 10/02/16 Cyproheptadine [Periactin -] 4 mg PO Q12H 10/02/16 Docusate Sodium [Colace -] 300 mg PO DAILY 10/02/16 Ferrous Sulfate [Feosol] 325 mg PO BID 10/02/16 Hypromellose 0.5% Opth Soln [Artificial Tears] 1 drop OU BID 10/02/16 Loratadine [Claritin -] 10 mg PO DAILY 10/02/16 Multivitamin [Poly-Vitamin] 1 each PO DAILY 10/02/16 Omeprazole 20 mg PO DAILY 10/02/16 Prednisone [Deltasone -] 20 mg PO DAILY 10/02/16 Ranitidine HCl [Zantac] 150 mg PO DAILY 10/02/16 Rivaroxaban [Xarelto -] 20 mg PO DAILY 10/02/16 Simvastatin [Zocor -] 20 mg PO HS 10/02/16 Review of Systems Unable to obtain ROS, reason: pt has trache Physical Exam Vital Signs: Vital Signs Temperature 99.0 F 10/04/16 14:30 Pulse Rate 79 10/04/16 14:30 Respiratory Rate 13 10/04/16 14:45 Blood Pressure 108/39 10/04/16 14:30 O2 Sat by Pulse Oximetry (%) 97 10/04/16 12:40 Constitutional: Yes: Calm Eyes: Yes: Conjunctiva Clear HENT: Yes: Atraumatic Neck: Yes: Other (trache) Cardiovascular: Yes: S1, S2 Respiratory: Yes: Mechanically Ventilated Gastrointestinal: Yes: Soft Renal/: Yes: WNL Musculoskeletal: Yes: Muscle Weakness Edema: No Neurological: Yes: Oriented Psychiatric: Yes: Oriented Labs: CBC, BMP 10/04/16 06:50 10/04/16 06:50 Laboratory Tests 10/02/16 10/02/16 10/02/16 17:48 17:49 17:49 WBC 18.9 H D Hgb Sodium 146 H Potassium Chloride Carbon Dioxide Anion Gap BUN 30 H D Creatinine 0.6 Ammonia Urine Color Dkyellow Urine Appearance Clear Urine pH 5.0 Ur Specific [place] 1.028 Urine Protein 1+ H D Urine Glucose (UA) Negative Urine Ketones Negative Urine Blood Negative Urine Nitrite Negative Urine Bilirubin Negative Urine Urobilinogen Negative 10/03/16 10/03/16 10/04/16 04:58 04:58 06:50 WBC 14.9 H Hgb 10.1 L D 9.3 L Sodium 148 H Potassium Chloride Carbon Dioxide Anion Gap BUN 27 H Creatinine 0.5 L Ammonia Urine Color Urine Appearance Urine pH Ur Specific [place] Urine Protein Urine Glucose (UA) Urine Ketones Urine Blood Urine Nitrite Urine Bilirubin Urine Urobilinogen 10/04/16 10/04/16 10/04/16 06:50 06:50 06:50 WBC 12.1 H Hgb 9.2 L Sodium 144 Potassium 3.5 Chloride 107 Carbon Dioxide 28 Anion Gap 9 BUN 31 H Creatinine 0.6 Ammonia < 10 L Urine Color Urine Appearance Urine pH Ur Specific [place] Urine Protein Urine Glucose (UA) Urine Ketones Urine Blood Urine Nitrite Urine Bilirubin Urine Urobilinogen Imaging - Results Chest X-ray: Report Reviewed Problem List - Problems (1) Dehydration Code(s): E86.0 - DEHYDRATION (2) Sepsis Code(s): A41.9 - SEPSIS, UNSPECIFIED ORGANISM (3) COPD (chronic obstructive pulmonary disease) Code(s): J44.9 - CHRONIC OBSTRUCTIVE PULMONARY DISEASE, UNSPECIFIED Assessment/Plan Current Medications Generic Name Dose Route Start Last Admin Trade Name Freq PRN Reason Stop Dose Admin Acetaminophen 650 mg 10/02/16 22:45 10/04/16 13:58 Tylenol - PO 650 mg Q4H PRN Administration Albuterol/Ipratropium 1 amp 10/03/16 00:00 10/04/16 12:35 Duoneb - NEB 1 amp QIDR BREANN Administration Artificial Tears 1 drop 10/03/16 10:00 10/04/16 09:35 Artificial Tears OU 1 drop BID RBEANN Administration Atorvastatin Calcium 10 mg 10/03/16 22:00 10/03/16 21:50 Lipitor - PO 10 mg HS BREANN Administration Clonazepam 0.5 mg 10/03/16 10:00 10/04/16 09:35 Klonopin - PO 0.5 mg BID BREANN Administration Docusate Sodium 300 mg 10/03/16 10:00 10/04/16 09:34 Colace - PO 300 mg DAILY BREANN Administration Ertapenem 1 gm 10/04/16 11:15 10/04/16 12:40 Invanz (Pre-Docked) IVPB 1 gm DAILY BREANN Administration Ferrous Sulfate 325 mg 10/03/16 10:00 10/04/16 09:34 Feosol - PO 325 mg BID BREANN Administration Dextrose/Sodium Chloride 1,000 mls @ 83 mls/hr 10/03/16 21:15 10/04/16 12:06 D5-1/2ns - IV 83 mls/hr ASDIR BREANN Administration Insulin Aspart 1 vial 10/03/16 07:00 10/04/16 16:59 Novolog Vial Sliding Scale - SQ Not Given ACHS BREANN Protocol Loratadine 10 mg 10/03/16 10:00 10/04/16 09:35 Claritin - PO 10 mg DAILY BREANN Administration Methylprednisolone Sodium Succinate 40 mg 10/03/16 03:00 10/04/16 15:53 Solu-Medrol - IVPB 40 mg Q6H-IV BREANN Administration Pantoprazole Sodium 20 mg 10/03/16 10:00 10/04/16 09:35 Protonix - PO 20 mg DAILY BREANN Administration Ranitidine HCl 150 mg 10/03/16 10:00 10/04/16 09:35 Zantac - PO 150 mg DAILY BREANN Administration Rivaroxaban 20 mg 10/03/16 10:00 10/04/16 09:35 Xarelto - PO 20 mg DAILY BREANN Administration Impression 1. hypernatremia 2. azotemia 3. chronic resp failure 4. PNA 5. hyperlipidemia Plan - cont with fluids, sodium is improved - repeat labs in am - steroids can contribute to elevated bun - change d5 to 1/2 ns - likely dehydration from infection and decreased PO intake Dr Trejo
[2016-10-04] MEDS ORDERED: SODIUM CHLORIDE 0.45% 1,000 ML IV SCH (18:15)
[2016-10-04] MEDS ORDERED: INSULIN (NOVOLOG) ASPART 100 UNITS/ML 10ML VIAL ONE (20:33)
[2016-10-04] MEDS: SODIUM CHLORIDE 0.45% 1,000 ML with POTASSIUM CHLORIDE 10 MEQ IV SCH (21:23)
[2016-10-04] MEDS: ATORVASTATIN CA 10 MG TABLET (FP) PO SCH (21:27)
[2016-10-05] MEDS: ALBUTEROL SO4 2.5/IPRATROPIUM 0.5 INH SOL 3 ML VIAL.NEB. NEB SCH ×5 (00:05→23:06)
[2016-10-05] MEDS: methylPREDNISolone NA SUCC 40 MG/1 ML VIAL IVPB SCH ×3 (02:11→21:31)
[2016-10-05] MEDS: INSULIN SLIDING SCALE (NOVOLOG) 1 VIAL SQ SCH ×4 (06:31→21:29)
[2016-10-05 07:51] LABS: CALCIUM 7.9 mg/dL (8.5-10.1); CREATININE 0.6 mg/dL (0.55-1.02)
[2016-10-05] MEDS ORDERED: PT OWN MED DRAWER 7, Y5N ONE ×2 (10:15→10:20)
[2016-10-05] MEDS: ARTIFICIAL TEARS (POLYVINYL ALCOHOL 1.4%) OPTH DROPS OU SCH ×2 (10:16→23:50)
[2016-10-05] MEDS: FERROUS SO4 325 MG TABLET (FP) PO SCH ×2 (10:17→21:30)
[2016-10-05] MEDS: RIVAROXABAN 20 MG TABLET PO SCH (10:17)
[2016-10-05] MEDS: PANTOPRAZOLE 20 MG TABLET (FP) PO SCH (10:17)
[2016-10-05] MEDS: RANITIDINE HCL 150 MG TABLET (FP) PO SCH (10:17)
[2016-10-05] MEDS: DOCUSATE SODIUM 100 MG CAPSULE (FP) PO SCH (10:17)
[2016-10-05] MEDS: clonazePAM 0.5 MG TABLET PO SCH ×2 (10:18→21:30)
[2016-10-05] MEDS: LORATADINE 10 MG TABLET PO SCH (10:20)
[2016-10-05] MEDS: SODIUM CHLORIDE 0.45% 1,000 ML with POTASSIUM CHLORIDE 10 MEQ IV SCH (10:28)
--- NOTE | 2016-10-05 11:27 | PN ---
Progress Note (short form) - Note Progress Note: RENAL pt seen and examined comfortable Last Vital Signs Temp Pulse Resp BP Pulse Ox 98.3 F 70 14 122/56 97 10/05/16 10:00 10/05/16 10:00 10/05/16 10:00 10/05/16 10:00 10/05/16 10:00 lungs bilateral air entry cvs s1s2 rr abd soft ext no edema neuro a+ox3 CBC, BMP 10/04/16 06:50 10/05/16 06:00 Impression 1. hypernatremia 2. azotemia 3. chronic resp failure 4. PNA 5. hyperlipidemia Plan - cont with fluids, sodium is improved - repeat labs in am - steroids can contribute to elevated bun - likely dehydration from infection and decreased PO intake MV
[2016-10-05] MEDS: ACETAMINOPHEN 325 MG TABLET (FP) PO PRN (11:53)
--- NOTE | 2016-10-05 12:32 | PN ---
Progress Note (short form) - Note Progress Note: PULMONARY Vented on volume assist control. No fevers recorded. Last Vital Signs Temp Pulse Resp BP Pulse Ox 98.3 F 70 14 122/56 97 10/05/16 10:00 10/05/16 10:00 10/05/16 10:00 10/05/16 10:00 10/05/16 10:00 Gen: vented, arousable Heart: RRR Lung: distant breath sounds Abd: soft, nontender Ext: no edema CBC, BMP 10/04/16 06:50 10/05/16 06:00 Active Medications Acetaminophen (Tylenol -) 650 mg PO Q4H PRN Last Admin: 10/05/16 11:53 Dose: 650 mg Albuterol/Ipratropium (Duoneb -) 1 amp NEB QIDR [facility] Last Admin: 10/05/16 06:32 Dose: 1 amp Artificial Tears (Artificial Tears) 1 drop OU BID [facility] Last Admin: 10/05/16 10:16 Dose: 1 drop Atorvastatin Calcium (Lipitor -) 10 mg PO HS [facility] Last Admin: 10/04/16 21:27 Dose: 10 mg Clonazepam (Klonopin -) 0.5 mg PO BID [facility] Last Admin: 10/05/16 10:18 Dose: Not Given Docusate Sodium (Colace -) 300 mg PO DAILY [facility] Last Admin: 10/05/16 10:17 Dose: 300 mg Ertapenem (Invanz (Pre-Docked)) 1 gm IVPB DAILY [facility] Last Admin: 10/04/16 12:40 Dose: 1 gm Ferrous Sulfate (Feosol -) 325 mg PO BID [facility] Last Admin: 10/05/16 10:17 Dose: 325 mg Potassium Chloride 10 meq/ (Sodium Chloride) 1,005 mls @ 75 mls/hr IV Q13H [facility] Last Admin: 10/05/16 10:28 Dose: 75 mls/hr Insulin Aspart (Novolog Vial Sliding Scale -) 1 vial SQ ACHS BREANN PRN Reason: Protocol Last Admin: 10/05/16 11:54 Dose: Not Given Loratadine (Claritin -) 10 mg PO DAILY [facility] Last Admin: 10/05/16 10:20 Dose: 10 mg Methylprednisolone Sodium Succinate (Solu-Medrol -) 40 mg IVPB Q6H-IV [facility] Last Admin: 10/05/16 10:16 Dose: 40 mg Pantoprazole Sodium (Protonix -) 20 mg PO DAILY [facility] Last Admin: 10/05/16 10:17 Dose: 20 mg Ranitidine HCl (Zantac -) 150 mg PO DAILY [facility] Last Admin: 10/05/16 10:17 Dose: 150 mg Rivaroxaban (Xarelto -) 20 mg PO DAILY [facility] Last Admin: 10/05/16 10:17 Dose: 20 mg A/P Pneumonia UTI Vent Dependent Chronic Respiratory Failure COPD Exacerbation Atrial Fibrillation - continue - f/u cultures - will decrease medrol to BID - inhaled bronchodilators - can attempt spontaneous breathing trials when more stable - titrate O2 to keep SpO2 >90% - enteral feeds - DVT/GI prophylaxis Problem List - Problems (1) Pneumonia Code(s): J18.9 - PNEUMONIA, UNSPECIFIED ORGANISM (2) UTI (urinary tract infection) Code(s): N39.0 - URINARY TRACT INFECTION, SITE NOT SPECIFIED Qualifiers: (3) COPD (chronic obstructive pulmonary disease) Code(s): J44.9 - CHRONIC OBSTRUCTIVE PULMONARY DISEASE, UNSPECIFIED (4) Chronic respiratory failure Code(s): J96.10 - CHRONIC RESPIRATORY FAILURE, UNSP W HYPOXIA OR HYPERCAPNIA Qualifiers: Respiratory failure complication: hypercapnia Qualified Code(s): J96.12 - Chronic respiratory failure with hypercapnia (5) HTN (hypertension) Code(s): I10 - ESSENTIAL (PRIMARY) HYPERTENSION (6) PAF (paroxysmal atrial fibrillation) Code(s): I48.0 - PAROXYSMAL ATRIAL FIBRILLATION (7) Pleural effusion Code(s): J90 - PLEURAL EFFUSION, NOT ELSEWHERE CLASSIFIED
--- NOTE | 2016-10-05 12:40 | PN ---
Progress Note, Physician History of Present Illness: Awake, alert Eating lunch in bed Afebrile WBC improved BC (-) Urine c/s contaminated - Current Medication List Current Medications: Active Medications Acetaminophen (Tylenol -) 650 mg PO Q4H PRN Last Admin: 10/05/16 11:53 Dose: 650 mg Albuterol/Ipratropium (Duoneb -) 1 amp NEB QIDR [facility] Last Admin: 10/05/16 06:32 Dose: 1 amp Artificial Tears (Artificial Tears) 1 drop OU BID [facility] Last Admin: 10/05/16 10:16 Dose: 1 drop Atorvastatin Calcium (Lipitor -) 10 mg PO HS [facility] Last Admin: 10/04/16 21:27 Dose: 10 mg Clonazepam (Klonopin -) 0.5 mg PO BID [facility] Last Admin: 10/05/16 10:18 Dose: Not Given Docusate Sodium (Colace -) 300 mg PO DAILY [facility] Last Admin: 10/05/16 10:17 Dose: 300 mg Ertapenem (Invanz (Pre-Docked)) 1 gm IVPB DAILY [facility] Last Admin: 10/04/16 12:40 Dose: 1 gm Ferrous Sulfate (Feosol -) 325 mg PO BID [facility] Last Admin: 10/05/16 10:17 Dose: 325 mg Potassium Chloride 10 meq/ (Sodium Chloride) 1,005 mls @ 75 mls/hr IV Q13H [facility] Last Admin: 10/05/16 10:28 Dose: 75 mls/hr Insulin Aspart (Novolog Vial Sliding Scale -) 1 vial SQ ACHS [facility] PRN Reason: Protocol Last Admin: 10/05/16 11:54 Dose: Not Given Loratadine (Claritin -) 10 mg PO DAILY [facility] Last Admin: 10/05/16 10:20 Dose: 10 mg Methylprednisolone Sodium Succinate (Solu-Medrol -) 40 mg IVPB Q12H [facility] Pantoprazole Sodium (Protonix -) 20 mg PO DAILY [facility] Last Admin: 10/05/16 10:17 Dose: 20 mg Ranitidine HCl (Zantac -) 150 mg PO DAILY [facility] Last Admin: 10/05/16 10:17 Dose: 150 mg Rivaroxaban (Xarelto -) 20 mg PO DAILY [facility] Last Admin: 10/05/16 10:17 Dose: 20 mg - Objective Vital Signs: Vital Signs Temperature 98.3 F 10/05/16 10:00 Pulse Rate 70 10/05/16 10:00 Respiratory Rate 14 10/05/16 10:00 Blood Pressure 122/56 10/05/16 10:00 O2 Sat by Pulse Oximetry (%) 97 10/05/16 10:00 Constitutional: Yes: No Distress, Cachectic Eyes: Yes: Conjunctiva Clear Cardiovascular: Yes: Regular Rate and Rhythm, S1, S2 Respiratory: Yes: Mechanically Ventilated, Tachypnea Gastrointestinal: Yes: Normal Bowel Sounds. No: Tenderness Edema: No Labs: CBC, BMP 10/04/16 06:50 10/05/16 06:00 INR, PTT INR 1.34 (0.82-1.09) H 10/02/16 17:49 Assessment/Plan UTI/possible sepsis secondary to UTI Possible LLL pneumonia Leukocytosis- improved Toxic-metabolic encephalopathy-improved Chronic respiratory failure Repeat urine c/s Continue ertapenem If stable, po antibiotics 24hr
[2016-10-05] MEDS: ERTAPENEM SODIUM 1 GM/50 ML PRE-DOCKED IVPB SCH (13:23)
--- NOTE | 2016-10-05 13:56 | PN ---
Progress Note, Physician Chief Complaint: patient talks and mouths words in bed no distress afebrile leukocytosis improving - Current Medication List Current Medications: Active Medications Acetaminophen (Tylenol -) 650 mg PO Q4H PRN Last Admin: 10/05/16 11:53 Dose: 650 mg Albuterol/Ipratropium (Duoneb -) 1 amp NEB QIDR [facility] Last Admin: 10/05/16 11:14 Dose: 1 amp Artificial Tears (Artificial Tears) 1 drop OU BID [facility] Last Admin: 10/05/16 10:16 Dose: 1 drop Atorvastatin Calcium (Lipitor -) 10 mg PO HS [facility] Last Admin: 10/04/16 21:27 Dose: 10 mg Clonazepam (Klonopin -) 0.5 mg PO BID [facility] Last Admin: 10/05/16 10:18 Dose: Not Given Docusate Sodium (Colace -) 300 mg PO DAILY [facility] Last Admin: 10/05/16 10:17 Dose: 300 mg Ertapenem (Invanz (Pre-Docked)) 1 gm IVPB DAILY [facility] Last Admin: 10/05/16 13:23 Dose: 1 gm Ferrous Sulfate (Feosol -) 325 mg PO BID [facility] Last Admin: 10/05/16 10:17 Dose: 325 mg Potassium Chloride 10 meq/ (Sodium Chloride) 1,005 mls @ 75 mls/hr IV Q13H [facility] Last Admin: 10/05/16 10:28 Dose: 75 mls/hr Insulin Aspart (Novolog Vial Sliding Scale -) 1 vial SQ ACHS [facility] PRN Reason: Protocol Last Admin: 10/05/16 11:54 Dose: Not Given Loratadine (Claritin -) 10 mg PO DAILY [facility] Last Admin: 10/05/16 10:20 Dose: 10 mg Methylprednisolone Sodium Succinate (Solu-Medrol -) 40 mg IVPB Q12H [facility] Pantoprazole Sodium (Protonix -) 20 mg PO DAILY [facility] Last Admin: 10/05/16 10:17 Dose: 20 mg Ranitidine HCl (Zantac -) 150 mg PO DAILY [facility] Last Admin: 10/05/16 10:17 Dose: 150 mg Rivaroxaban (Xarelto -) 20 mg PO DAILY [facility] Last Admin: 10/05/16 10:17 Dose: 20 mg - Objective Vital Signs: Vital Signs Temperature 98.3 F 10/05/16 10:00 Pulse Rate 70 10/05/16 10:00 Respiratory Rate 14 10/05/16 10:00 Blood Pressure 122/56 10/05/16 10:00 O2 Sat by Pulse Oximetry (%) 97 10/05/16 10:00 Constitutional: Yes: Calm Neck: Yes: Other (trach) Cardiovascular: Yes: Regular Rate and Rhythm, S1, S2 Respiratory: Yes: CTA Bilaterally Gastrointestinal: Yes: Normal Bowel Sounds, Soft Edema: No Neurological: Yes: Alert, Oriented Labs: CBC, BMP 10/04/16 06:50 10/05/16 06:00 INR, PTT INR 1.34 (0.82-1.09) H 10/02/16 17:49 Problem List - Problems (1) Dehydration Assessment/Plan: increase fluids recheck bmp in am renal on board Code(s): E86.0 - DEHYDRATION (2) Pneumonia Assessment/Plan: possible LLL pnuemonia ertrapenem possible change to oral in am if wbc dec and no fever iv steroids will change to oral tmw Code(s): J18.9 - PNEUMONIA, UNSPECIFIED ORGANISM (3) Sepsis Assessment/Plan: most likely sec to uti ertrapenem Code(s): A41.9 - SEPSIS, UNSPECIFIED ORGANISM (4) UTI (urinary tract infection) Assessment/Plan: ID on board ertrapenem Code(s): N39.0 - URINARY TRACT INFECTION, SITE NOT SPECIFIED Qualifiers: (5) Respirator dependence Assessment/Plan: medrol vent Code(s): Z99.11 - DEPENDENCE ON RESPIRATOR [VENTILATOR] STATUS (6) PAF (paroxysmal atrial fibrillation) Assessment/Plan: xarelto Code(s): I48.0 - PAROXYSMAL ATRIAL FIBRILLATION
[2016-10-05] MEDS: ATORVASTATIN CA 10 MG TABLET (FP) PO SCH (21:30)
[2016-10-06] MEDS: SODIUM CHLORIDE 0.45% 1,000 ML with POTASSIUM CHLORIDE 10 MEQ IV SCH ×3 (00:22→11:29)
[2016-10-06] MEDS: INSULIN SLIDING SCALE (NOVOLOG) 1 VIAL SQ SCH ×2 (06:14→11:50)
[2016-10-06] MEDS: ALBUTEROL SO4 2.5/IPRATROPIUM 0.5 INH SOL 3 ML VIAL.NEB. NEB SCH ×2 (06:40→11:37)
[2016-10-06 07:10] LABS: BASOPHIL 0.1 % (0-2.0); EOSINOPHIL 1.2 % (0-4.5); MCH 27.6 pg (25.7-33.7); MCHC 32.4 g/dl (32.0-36.0); MEAN CELL VOLUME 85.1 fl (80-96); MEAN PLT VOLUME 8.2 fl (7.5-11.1); NEUTROPHILS 70.4 % (42.8-82.8); PLATELET COUNT 182 K/MM3 (134-434); RDW 15.7 % (11.6-15.6); WHITE BLOOD COUNT 6.2 K/mm3 (4.0-10.0)
[2016-10-06 07:47] LABS: CALCIUM 7.8 mg/dL (8.5-10.1); CREATININE 0.5 mg/dL (0.55-1.02)
[2016-10-06] MEDS: methylPREDNISolone NA SUCC 40 MG/1 ML VIAL IVPB SCH (10:00)
--- NOTE | 2016-10-06 10:34 | DS ---
Physical Examination Vital Signs: Vital Signs Temperature 98.3 F 10/06/16 10:00 Pulse Rate 64 10/06/16 10:00 Respiratory Rate 12 10/06/16 10:00 Blood Pressure 118/68 10/06/16 10:00 O2 Sat by Pulse Oximetry (%) 97 10/05/16 21:00 Constitutional: Yes: Calm Neck: Yes: Trachea Midline, Other (trach) Cardiovascular: Yes: S1, S2 Respiratory: Yes: Mechanically Ventilated Gastrointestinal: Yes: Normal Bowel Sounds, Soft Edema: No Neurological: Yes: Alert, Other (mouths words follows commands) Labs: CBC, BMP 10/06/16 05:35 10/06/16 05:35 Discharge Summary Reason For Visit: FEVER Current Active Problems Anemia (Acute) Dehydration (Acute) Fever (Acute) Hypotension (Acute) Pneumonia (Acute) Sepsis (Acute) UTI (urinary tract infection) (Acute) Hospital Course: The patient is an 81 year old female, with a significant past medical history of of anemia, AFib, CHF, cardiac arrest 1998, hypertension, hyperlipidemia, COPD(s/p trach due to respiratory failure, UTIs, and GI bleed, who presents to the emergency department sent from [facility], for further evaluation of abdominal pain since this morning. Per [facility] records, the patient was complaining of abdominal pain earlier this morning. The patients Tmax in [place] was 100.8F and her bp was 139/66. The patient was given tylenol. The patient was able to eat lunch. After lunch, the patients vital signs were rechecked and her Tmax was 88.8, while her bp was 108/72. Per records, Dr. Verduzco called and ordered the patient be sent to [facility] ER for further evaluation. Per previous records the patient was recently admitted to the ED on 08/23/16 for a UTI. The patients history is limited as she is nonverbal. Allergies: Doxycycline, Clams Past Surgical History: Defibrillator Social History: Non-smoker. Denies alcohol or drug use. 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 Verduzco patient elevated WBC on ertrapenem now improved possible pna/uti blood cultures negative change to po abx for 5 days keflex 500mg po bid prednisone taper - Instructions Diet, Activity, Other Instructions: kelfex 500mg po bid for 5 days prednsione 60mg po daily for 2 days then 40mg po daily for 2 days then 20mg po daily standing order Referrals: Royer Verduzco MD [Primary Care Provider] - Disposition: [facility] - Home Medications Comprehensive Discharge Medication List: Ambulatory Orders Acetaminophen [Tylenol] 325 mg PO Q4H 10/02/16 Albuterol 0.083% Nebulizer Yady [Ventolin 0.083% Nebulizer Soln -] 1 neb NEB Q6H 10/02/16 Albuterol 2.5/Ipratropium 0.5 [Duoneb -] 1 neb IH QID 10/02/16 Ascorbic Acid [Vitamin C] 500 mg PO DAILY 10/02/16 Bacitracin 30 gm TP DAILY 10/02/16 Clonazepam [KlonoPIN] 0.5 mg PO BID 10/02/16 Cyproheptadine [Periactin -] 4 mg PO Q12H 10/02/16 Docusate Sodium [Colace -] 300 mg PO DAILY 10/02/16 Ferrous Sulfate [Feosol] 325 mg PO BID 10/02/16 Hypromellose 0.5% Opth Soln [Artificial Tears] 1 drop OU BID 10/02/16 Loratadine [Claritin -] 10 mg PO DAILY 10/02/16 Multivitamin [Poly-Vitamin] 1 each PO DAILY 10/02/16 Omeprazole 20 mg PO DAILY 10/02/16 Prednisone [Deltasone -] 20 mg PO DAILY 10/02/16 Ranitidine HCl [Zantac] 150 mg PO DAILY 10/02/16 Rivaroxaban [Xarelto -] 20 mg PO DAILY 10/02/16 Simvastatin [Zocor -] 20 mg PO HS 10/02/16
[2016-10-06] MEDS: RANITIDINE HCL 150 MG TABLET (FP) PO SCH (11:31)
[2016-10-06] MEDS: LORATADINE 10 MG TABLET PO SCH (11:31)
[2016-10-06] MEDS: FERROUS SO4 325 MG TABLET (FP) PO SCH (11:31)
[2016-10-06] MEDS: ARTIFICIAL TEARS (POLYVINYL ALCOHOL 1.4%) OPTH DROPS OU SCH (11:31)
[2016-10-06] MEDS: ERTAPENEM SODIUM 1 GM/50 ML PRE-DOCKED IVPB SCH (11:31)
[2016-10-06] MEDS: clonazePAM 0.5 MG TABLET PO SCH (11:32)
[2016-10-06] MEDS: PANTOPRAZOLE 20 MG TABLET (FP) PO SCH (11:32)
[2016-10-06] MEDS: RIVAROXABAN 20 MG TABLET PO SCH (11:32)
[2016-10-06] MEDS: DOCUSATE SODIUM 100 MG CAPSULE (FP) PO SCH (11:32)
[2016-10-06 13:46] VITALS: BP 107/65; PULSE 70; TEMP 98.7
[2016-10-07] MEDS ORDERED: methylPREDNISolone NA SUCC 40 MG/1 ML VIAL IVPB SCH (10:00)
== END 2016-10-06 14:31 | DRG 871 ==
LOC: JER 17:00 → JERBED 20:15 → J5S 10-03 14:05
PROVIDERS: ADMIT Family Medicine; ATTEND Family Medicine
PROC: 5A1945Z Respiratory Ventilation, 24-96 Consecutive Hours (ICD-10-PCS; principal; 2016-10-02)
DX: A41.9 Sepsis, unspecified organism (principal); J18.9 Pneumonia, unspecified organism; G92 Toxic encephalopathy; N39.0 Urinary tract infection, site not specified; Z99.11 Dependence on respirator [ventilator] status; J44.1 Chronic obstructive pulmonary disease with (acute) exacerbation; J96.10 Chronic respiratory failure, unspecified whether with hypoxia or hypercapnia; J90 Pleural effusion, not elsewhere classified; E87.0 Hyperosmolality and hypernatremia; D64.9 Anemia, unspecified; E86.0 Dehydration; E78.5 Hyperlipidemia, unspecified; I10 Essential (primary) hypertension; I48.0 Paroxysmal atrial fibrillation; D72.829 Elevated white blood cell count, unspecified; K21.9 Gastro-esophageal reflux disease without esophagitis; Z93.0 Tracheostomy status
CPT/HCPCS: 36415; 71010-TC; 80048; 80053; 81003; 81015; 82140; 82550; 82803; 83605; 83735; 83880; 84443; 84484; 85025; 85027; 85610; 85730; 86850; 86900; 86901; 87040; 87086; 93005; 93010; 94002; 94640; 99285-25

== ENCOUNTER 2016-10-19 12:37 | Inpatient (IN) | payer OTHER ==
--- NOTE | 2016-10-19 12:41 | PDOC ---
History of Present Illness - General Stated Complaint: Shortness of Breath Time Seen by Provider: 10/19/16 12:40 - History of Present Illness Initial Comments: 10/19/16 12:41 The patient is an 81 year old female, with a significant past medical history of of anemia, AFib, CHF, cardiac arrest 1998, hypertension, hyperlipidemia, COPD (s/p trach due to respiratory failure), UTIs, and GI bleed who was brought to ED by EMS from [place]. She was found to be tachycardic 118 , hypoxic 91% , hypertensive 111/91 and diaphoretic. The pt is nonverbal but she shakes her head when asked questions. She is on vent and has trachea. The pt was discharged from [facility] on 10/06/16, hospitalized for AMS. Past History - Past Medical History Allergies/Adverse Reactions: Allergies Allergy/AdvReac Type Severity Reaction Status Date / Time doxycycline Allergy Intermediate Verified 10/19/16 12:58 CLAMS Allergy Intermediate Hives Uncoded 10/19/16 12:58 Home Medications: Ambulatory Orders Acetaminophen [Tylenol] 650 mg PO QID 10/19/16 Ascorbic Acid [Vitamin C -] 500 mg PO DAILY 10/19/16 Cephalexin [Keflex] 500 mg PO DAILY 10/19/16 Clonazepam [Klonopin -] 0.5 mg PO BID 10/19/16 Docusate Sodium 300 mg PO HS 10/19/16 Ferrous Sulfate 325 mg PO BID 10/19/16 Hypromellose 0.5% Opth Soln [Artificial Tears] 1 drop DAILY 10/19/16 Loratadine 10 mg PO DAILY 10/19/16 Multivitamin [Poly-Vitamin] 1 each PO DAILY 10/19/16 Omeprazole 20 mg PO DAILY 10/19/16 Prednisone [Deltasone -] 20 mg PO DAILY 10/19/16 Ranitidine HCl [Zantac] 150 mg PO DAILY 10/19/16 Rivaroxaban [Xarelto -] 20 mg PO DAILY 10/19/16 Simvastatin [Zocor -] 20 mg PO HS 10/19/16 Anemia: Yes Asthma: No Cancer: No Cardiac Disorders: Yes (CARDIAC ARREST 1998, afib) CVA: No COPD: Yes CHF: No Dementia: Yes (SHORT TERM MEMORY LOSS) Diabetes: No GI Disorders: No Disorders: No HTN: Yes Hypercholesterolemia: Yes Liver Disease: No Seizures: No Thyroid Disease: No - Surgical History Abdominal Surgery: No Appendectomy: No Cardiac Surgery: Yes (DEFIBRILLATOR) Cholecystectomy: No Lung Surgery: No Neurologic Surgery: No Orthopedic Surgery: No - Immunization History Immunization Up to Date: Yes - Psycho/Social/Smoking Cessation Hx Anxiety: No Suicidal Ideation: No Smoking History: Unknown if ever smoked Have you smoked in the past 12 months: No Number of Cigarettes Smoked Daily: 0 Cigars Per Day: 0 Hx Alcohol Use: No Drug/Substance Use Hx: No Substance Use Type: None Review of Systems - Review of Systems Able to Perform ROS?: No Comments:: 10/19/16 13:14 REVIEW OF SYSTEMS: N/A, pt is non verbal Is the patient limited Guatemalan proficient: No *Physical Exam - Physical Exam Comments: 10/19/16 13:16 GENERAL: The patient is awake, alert, in no acute distress, trachea on vent, cachectic. HEAD: Normal with no signs of trauma. EYES: PERRL, extraocular movements intact, sclera anicteric, conjunctiva clear. ENT: Ears normal, nares patent, moist mucous membranes., oropharynx clear, no exudates. NECK: Trachea midline, full range of motion, supple. LUNGS: Coarse breath sounds bilaterally in front, no wheezes, no crackles, no accessory muscle use. HEART: Regular rate and rhythm, S1, S2 without murmur, rub or gallop. ABDOMEN: Soft, nontender, nondistended, normoactive bowel sounds, no guarding, no rebound. EXTREMITIES: no edema, muscle atrophy. NEUROLOGICAL: Non verbal, fallows commands, no facial asymmetry, motor in upper extremities 4/5, LE 3/5, gait not observed. PSYCH: Normal mood, normal affect. SKIN: Warm, dry, normal turgor, no rashes or lesions noted ED Treatment Course - LABORATORY CBC & Chemistry Diagram: 10/19/16 12:55 10/19/16 12:55 Medical Decision Making - Medical Decision Making 10/19/16 13:21 The pt is a 81 year old male who presents from [place]. We started sepsis protocol, blood cx, urine cx, ekg, CXR. 10/19/16 15:53 Labs and CXR were reviewed. CXR shows possible PNA on left side, labs: elevated WBC. We ordered Cefepime, Levofloxacin and Vancomycin and contacted Dr. Cook who agreed to admit the pt to med surg. *DC/Admit/Observation/Transfer Diagnosis at time of Disposition: Pneumonia - Discharge Dispostion Admit: Yes - Referrals Referrals: Jacky Cook MD [Primary Care Provider] -
[2016-10-19 12:58] VITALS: BMI 21.4
--- NOTE | 2016-10-19 12:59 | PDOC ---
Attending Attestation - Resident Resident Name: Ashley Canales - ED Attending Attestation I have performed the following: I have examined & evaluated the patient, The case was reviewed & discussed with the resident, I agree w/resident's findings & plan - HPI HPI: 10/19/16 17:26 see below - Physicial Exam PE: 10/19/16 17:26 see below - Critical Care Time Total Critical Care Time: 35 Critical Care Statement: The care of this patient involved high complexity decision making to prevent further life threatening deterioration of the patient 's condition and/or to evalute & treat vital organ system(s) failure or risk of failure. - Medical Decision Making 10/19/16 14:34 81y F hx afib, chf, s/p cardiac arrest, ventilatory failure s/p trach, vent dependent presents with sob, noted to be febrile, tachycardic, hypoxic to 91% at NH - pt with trach in place on vent, rales on the L lung, cxr c/w L sided pna, pt alert, at baseline mental status. sepsis protocol initiated. lbs noted for leukocytosis to 35 lactic acid normal, labs otherwise unremarkable. pt will be treated for HCAP will admit for furhter mangaement of pneumonia - stable for med/surg Heart Score/ECG Review - ECG Impressions Comment:: 10/19/16 17:27 Twelve-lead EKG was performed and reviewed by me. There is normal sinus rhythm with arate of 107 left axis devaiation abnormal r wave progression
[2016-10-19 13:40] LABS: VENOUS BLOOD GAS HCO3 32.1 meq/L (19-25); VENOUS PH 7.44 (7.32-7.42)
[2016-10-19] MEDS ORDERED: ACETAMINOPHEN 1000 MG/100 ML VIAL (NON FORMULARY) IVPB ONE ×3 (13:45→14:10)
[2016-10-19 13:50] LABS: MCH 27.4 pg (25.7-33.7); MCHC 31.4 g/dl (32.0-36.0); MEAN CELL VOLUME 87.3 fl (80-96); MEAN PLT VOLUME 7.9 fl (7.5-11.1); PLATELET COUNT 250 K/MM3 (134-434); RDW 16.4 % (11.6-15.6)
[2016-10-19 13:59] LABS: URINE APPEARANCE CLEAR; URINE BILIRUBIN NEGATIVE (NEGATIVE); URINE BLOOD NEGATIVE (NEGATIVE); URINE COLOR AMBER; URINE GLUCOSE (UA) NEGATIVE (NEGATIVE); URINE KETONE NEGATIVE (NEGATIVE); URINE NITRITE NEGATIVE (NEGATIVE); URINE UROBILINOGEN NEGATIVE E.U./dl (0.2-1.0)
[2016-10-19 14:13] LABS: INR 1.31 (0.82-1.09); PROTHROMBIN TIME (PATIENT) 14.5 SEC (9.98-11.88)
[2016-10-19 14:15] LABS: URINE LEUK ESTERASE TRACE (NEGATIVE); URINE PROTEIN 1+ (NEGATIVE)
[2016-10-19 14:16] LABS: ACTIVATED PTT 29.2 SECONDS (26.9-34.4)
[2016-10-19 14:19] LABS: ALBUMIN 2.9 g/dl (3.4-5.0); ANION GAP 9 (8-16); BILIRUBIN,TOTAL 0.8 mg/dL (0.2-1.0); CALCIUM 8.9 mg/dL (8.5-10.1); CO2 33 mmol/L (21-32); CREATININE 0.6 mg/dL (0.55-1.02); GLUCOSE,RANDOM 87 mg/dL (74-106); SGOT/AST 18 U/L (15-37); SGPT/ALT 21 U/L (12-78)
[2016-10-19 14:20] LABS: WHITE BLOOD COUNT 34.4 K/mm3 (4.0-10.0)
[2016-10-19 14:22] LABS: ALK PHOS 76 U/L (45-117); TOT PROT 7.1 g/dl (6.4-8.2); TROPONIN I < 0.02 ng/ml (0.00-0.05)
[2016-10-19 14:24] LABS: URINE MUCUS MODERATE; URINE RBC 8 /hpf (0-3); URINE WBC 9 /hpf (3-5); YEAST FEW
[2016-10-19] MEDS ORDERED: CEFEPIME HCL 2 GM VIAL (RESTRICTED TO ID) IVPB ONE (14:30)
[2016-10-19] MEDS ORDERED: LEVOFLOXACIN 750 MG IVPB 150 ML IVPB ONE ×2 (14:32→15:18)
[2016-10-19] MEDS ORDERED: VANCOMYCIN 1 GRAM (PRE-DOCKED) 1,000 MG/250 ML BAG IVPB ONE (14:33)
[2016-10-19] MEDS ORDERED: CEFEPIME 100 ML IVPB ONE (14:35)
--- NOTE | 2016-10-19 15:33 | EKG ---
Test Reason : Blood Pressure : / mmHG Vent. Rate : 107 BPM Atrial Rate : 107 BPM P-R Int : 232 ms QRS Dur : 076 ms QT Int : 318 ms P-R-T Axes : 092 -74 062 degrees QTc Int : 424 ms SINUS TACHYCARDIA WITH 1ST DEGREE A-V BLOCK WITH OCCASIONAL PREMATURE VENTRICULAR COMPLEXES LEFT AXIS DEVIATION ANTERIOR INFARCT (CITED ON OR BEFORE 15-APR-2016) ABNORMAL ECG WHEN COMPARED WITH ECG OF 02-OCT-2016 19:07, SINUS RHYTHM HAS REPLACED JUNCTIONAL RHYTHM QRS AXIS SHIFTED LEFT NONSPECIFIC T WAVE ABNORMALITY NO LONGER EVIDENT IN INFERIOR LEADS Confirmed by DEJUAN LEIGH MD ([id number]) on 10/19/2016 3:32:51 PM Referred By: Confirmed By:DEJUAN LEIGH MD
[2016-10-19] MEDS ORDERED: VANCOMYCIN 1 GRAM (PRE-DOCKED) 250 ML IVPB ONE (15:59)
[2016-10-19 16:55] LABS: PLATELET ESTIMATE ADEQUATE (NORMAL)
[2016-10-19 16:56] LABS: TOXIC GRANULATION 1+
[2016-10-19] MEDS ORDERED: ACETAMINOPHEN 1000 MG/100 ML VIAL (NON FORMULARY) IVPB PRN (23:21)
[2016-10-20 08:42] LABS: MCH 27.6 pg (25.7-33.7); MCHC 32.4 g/dl (32.0-36.0); MEAN CELL VOLUME 85.2 fl (80-96); MEAN PLT VOLUME 8.3 fl (7.5-11.1); PLATELET COUNT 217 K/MM3 (134-434); RDW 16.8 % (11.6-15.6); WHITE BLOOD COUNT 27.9 K/mm3 (4.0-10.0)
[2016-10-20 09:05] LABS: ALBUMIN 2.4 g/dl (3.4-5.0); ALK PHOS 73 U/L (45-117); ANION GAP 9 (8-16); BILIRUBIN,TOTAL 0.8 mg/dL (0.2-1.0); CALCIUM 8.5 mg/dL (8.5-10.1); CO2 32 mmol/L (21-32); CREATININE 0.6 mg/dL (0.55-1.02); GLUCOSE,RANDOM 80 mg/dL (74-106); SGOT/AST 13 U/L (15-37); SGPT/ALT 15 U/L (12-78); TOT PROT 6.1 g/dl (6.4-8.2); TROPONIN I < 0.02 ng/ml (0.00-0.05)
[2016-10-20] MEDS ORDERED: HEPARIN NA (PORCINE) 5,000 UNITS/ML 1ML VIAL SQ SCH (10:00)
--- NOTE | 2016-10-20 10:14 | HP ---
Admitting History and Physical - Primary Care Physician PCP: Jacky Cook - Admission History of Present Illness: The patient is an 81 year old female, with a significant past medical history of of anemia, AFib, CHF, cardiac arrest 1998, hypertension, hyperlipidemia, COPD (s/p trach due to respiratory failure), UTIs, and GI bleed who was brought to ED by EMS from [place]. She was found to be tachycardic 118 , hypoxic 91% , hypertensive 111/91 and diaphoretic. The pt is nonverbal but she shakes her head when asked questions. She is on vent and has trachea. The pt was discharged from [facility] on 10/06/16, hospitalized for AMS. in ER leukocytosis,cxr L side PNA, got cefepime vanco and levaquin History Source: Medical Record - Past Medical History Cardiovascular: Yes: AFIB (Paroxysmal), CHF, HTN, Hyperlipdemia, Other (h/o cardiac arrest s/p AICD) Pulmonary: Yes: COPD, Other (respiratory failure) Gastrointestinal: Yes: GERD Heme/Onc: Yes: Anemia - Past Surgical History Past Surgical History: Yes: AICD (Medtronic, implanted following cardiac arrest) , Cataract Removal (2011) - Smoking History Smoking history: Unknown if ever smoked Have you smoked in the past 12 months: No Aproximately how many cigarettes per day: 0 - Alcohol/Substance Use Hx Alcohol Use: No Home Medications - Allergies Allergies/Adverse Reactions: Allergies Allergy/AdvReac Type Severity Reaction Status Date / Time doxycycline Allergy Intermediate Verified 10/19/16 12:58 CLAMS Allergy Intermediate Hives Uncoded 10/19/16 12:58 - Home Medications Home Medications: Ambulatory Orders Acetaminophen [Tylenol] 650 mg PO QID 10/19/16 Ascorbic Acid [Vitamin C -] 500 mg PO DAILY 10/19/16 Cephalexin [Keflex] 500 mg PO DAILY 10/19/16 Clonazepam [Klonopin -] 0.5 mg PO BID 10/19/16 Docusate Sodium 300 mg PO HS 10/19/16 Ferrous Sulfate 325 mg PO BID 10/19/16 Hypromellose 0.5% Opth Soln [Artificial Tears] 1 drop DAILY 10/19/16 Loratadine 10 mg PO DAILY 10/19/16 Multivitamin [Poly-Vitamin] 1 each PO DAILY 10/19/16 Omeprazole 20 mg PO DAILY 10/19/16 Prednisone [Deltasone -] 20 mg PO DAILY 10/19/16 Ranitidine HCl [Zantac] 150 mg PO DAILY 10/19/16 Rivaroxaban [Xarelto -] 20 mg PO DAILY 10/19/16 Simvastatin [Zocor -] 20 mg PO HS 10/19/16 Review of Systems - Review of Systems Neck: reports: No Symptoms Cardiovascular: reports: No Symptoms Respiratory: reports: No Symptoms Physical Examination Vital Signs: Vital Signs Temperature 98.6 F 10/20/16 05:05 Pulse Rate 95 H 10/20/16 09:45 Respiratory Rate 14 10/20/16 09:45 Blood Pressure 108/63 10/20/16 05:05 O2 Sat by Pulse Oximetry (%) 96 10/20/16 09:45 eyes closed sleeping but wakes up when spoken to nods her head tmax 101.8 Constitutional: Yes: Calm, Thin Neck: Yes: Other (trach) Respiratory: Yes: Diminished Gastrointestinal: Yes: Normal Bowel Sounds, Soft Edema: No Neurological: Yes: Alert, Other (mouths words) Labs: CBC, BMP 10/20/16 08:00 10/20/16 08:00 Imaging - Results Chest X-ray: Report Reviewed Problem List - Problems (1) Pneumonia Assessment/Plan: ID eval broad specturm abx follow up cultures Code(s): J18.9 - PNEUMONIA, UNSPECIFIED ORGANISM (2) COPD (chronic obstructive pulmonary disease) Assessment/Plan: pulm eval steroids vent support Code(s): J44.9 - CHRONIC OBSTRUCTIVE PULMONARY DISEASE, UNSPECIFIED (3) Chronic respiratory failure Assessment/Plan: vent suport Code(s): J96.10 - CHRONIC RESPIRATORY FAILURE, UNSP W HYPOXIA OR HYPERCAPNIA Qualifiers: Respiratory failure complication: hypercapnia Qualified Code(s): J96.12 - Chronic respiratory failure with hypercapnia (4) PAF (paroxysmal atrial fibrillation) Assessment/Plan: xarelto Code(s): I48.0 - PAROXYSMAL ATRIAL FIBRILLATION (5) Anemia Assessment/Plan: ferrous sulfate Code(s): D64.9 - ANEMIA, UNSPECIFIED Qualifiers: Anemia type: iron deficiency
--- NOTE | 2016-10-20 10:31 | PN ---
Progress Note (short form) - Note Progress Note: ID consult dictated imp/reccd 81 year old female with chronic resp failue- vent dependent- recently hospitilized 10/02 to [facility] for UTI, discharged on keflex, now admitted with hypoxia, tachycardia, sweating and chest congestion, fever 101.8 patient is nonverbal In ed found to have elevated WBC of 34k and LLL infiltrate she was started on vancomycin/levaquin and cefepime for HCAP she is alert this am, no distress noted UA negative chronic resp failue (vent) LLL pneumonia- HCAP ?aspiration-swallowing evaluation blood cultures sent, send suctioned sputum and urinary antigens cefepime/zithromax chronic resp failure hx afib defib/PPM Problem List - Problems (1) Pneumonia Code(s): J18.9 - PNEUMONIA, UNSPECIFIED ORGANISM (2) Chronic respiratory failure Code(s): J96.10 - CHRONIC RESPIRATORY FAILURE, UNSP W HYPOXIA OR HYPERCAPNIA Qualifiers: Respiratory failure complication: hypercapnia Qualified Code(s): J96.12 - Chronic respiratory failure with hypercapnia (3) AICD (automatic cardioverter/defibrillator) present Code(s): Z95.810 - PRESENCE OF AUTOMATIC (IMPLANTABLE) CARDIAC DEFIBRILLATOR
[2016-10-20 11:25] LABS: PLATELET ESTIMATE ADEQUATE (NORMAL); TOXIC GRANULATION 1+
[2016-10-20] MEDS: MULTIVITAMINS (DAILY MVI) TABLET (FP) PO SCH (11:28)
[2016-10-20] MEDS: predniSONE 20 MG TABLET (UD) PO SCH (11:28)
[2016-10-20] MEDS: LACTOBACILLUS ACIDOPHILUS 1 EACH TAB (FP) PO SCH (11:28)
[2016-10-20] MEDS: LORATADINE 10 MG TABLET PO SCH (11:28)
[2016-10-20] MEDS: CEFEPIME 1 GM/100 ML BAG PRE-DOCKED IVPB SCH ×2 (11:28→17:42)
[2016-10-20] MEDS: FERROUS SO4 325 MG TABLET (FP) PO SCH ×2 (11:28→21:14)
[2016-10-20] MEDS: PANTOPRAZOLE 20 MG TABLET (FP) PO SCH (11:29)
[2016-10-20] MEDS: ARTIFICIAL TEARS (POLYVINYL ALCOHOL 1.4%) OPTH DROPS OU SCH (11:29)
[2016-10-20] MEDS: ASCORBIC ACID 500 MG TABLET (FP) PO SCH (11:29)
[2016-10-20] MEDS: RIVAROXABAN 20 MG TABLET PO SCH (11:29)
--- NOTE | 2016-10-20 12:44 | CONS ---
INFECTIOUS DISEASE CONSULTATION DATE OF CONSULTATION: DATE OF DICTATION: 10/20/2016 REQUESTED BY: Jacky Cook MD DICTATED BY: Raghavendra Valentino MD HISTORY OF PRESENT ILLNESS: This is an 81-year-old woman with a history of chronic respiratory failure. She resides at the alf. She is on a ventilator, and she has a tracheostomy. She has had multiple admissions to [facility] this year, most recently in September when she was here from the to the with hypotension and elevated white count, and she was found unresponsive at the alf with hypotension and elevated white count. She was ultimately treated for a UTI with ertapenem and switched to Keflex at the time of discharge as her cultures were all negative. She is now readmitted with hypoxia, tachycardia, sweating and chest congestion. She was found to have a fever of 101.8 and elevated white count and a left lower lobe infiltrate. She given a dose of vancomycin, Levaquin and cefepime in the emergency room. This morning, she is alert. She has no complaints. PAST MEDICAL HISTORY: Notable for respiratory failure with tracheostomy. She has history of atrial fibrillation, COPD, hypertension, congestive heart failure, hyperlipidemia, history of cardiac arrest, reflux, and she has a history of multiple UTIs in the past and pneumonia in the past. SURGICAL HISTORY: Notable for a right axillary abscess and an MRSA. She has a history of a pacemaker/defibrillator, and she is status post tracheostomy. CUR[facility]S [facility]: Prednisone. She recently completed a course of Keflex on the 11 of October. She is taking 20 mg of prednisone daily. She takes omeprazole 20 mg daily, Klonopin 0.5 mg b.i.d. p.r.n., loratadine 10 mg daily, Zantac 150 daily, vitamin C 500 daily, Xarelto 20 mg daily, simvastatin 20 mg daily, multivitamin, ferrous sulfate and docusate sodium at bedtime. FAMILY HISTORY: Noncontributory. SOCIAL HISTORY: There is no history of any cigarette use, and she has been residing at the alf. REVIEW OF SYSTEMS: Not obtainable from the patient, but she denies any chest pain, abdominal pain. There are no reports of any nausea, vomiting or diarrhea. She has no skin breakdown. PHYSICAL EXAM: General: She is awake and alert. Vital signs: Temperature 98.6. T-max was 101.8 when she arrived in the emergency room. Pulse of 95. Blood pressure 108/63. Respiratory rate 14. O2 saturation 96% on 40% FiO2. HEENT exam: She is normocephalic. Her eyes are anicteric. She has a tracheostomy, and she on a ventilator. Lungs: Diminished breath sounds at the bases. Heart: Regular rate and rhythm. Abdomen: Soft, nontender. Extremities: Without edema. LABS: White count on admission was 34.4, this morning is 27.9. Hemoglobin 10.6. Platelets are 216. Her BUN and creatinine are 31 and 0.6 with normal LFTs. Urinalysis has trace leukocyte esterase with 9 white cells. Chest x-ray reveals a left lower lobe infiltrate. SUMMARY: 1. This is a 81-year-old woman with chronic respiratory failure, on the vent with left lower lobe pneumonia, consistent with hospital-acquired, as she was recently in the hospital. Is also residing at the alf. Question of aspiration. Would consider a swallowing evaluation. Blood cultures have been sent. Would send sputum culture and urinary antigens. She was given vancomycin, Levaquin and cefepime in the emergency room. I would continue cefepime and Zithromax while awaiting all her culture results. 2. History atrial fibrillation. Further recommendations to follow, based on her clinical course. RAGHAVENDRA VALENTINO M.D. 1 CESAR/[id number]
[2016-10-20] MEDS: ALBUTEROL SO4 0.083% IH SOL 2.5 MG/3 ML VIAL.NEB. NEB PRN (13:04)
--- NOTE | 2016-10-20 13:14 | CON.CARD ---
Consult Consult Specialty:: Cardiology Referred by:: Dr. Jacky Cook Reason for Consultation:: Episodes of Tachycardia - History of Present Illness Chief Complaint: Episodes of tachycardia. (Non-verbal patient) History of Present Illness: This is a 81 yo F with medical history of paroxysmal [place] fibrillation on systemic AC (Xarelto), chronic resp failure on trach - vent dependent, HTN, HLD , cardiac arrest s/p ICD - Medtronic per notes, recent admission due to UTI, who was admitted yesterday after been found tachycardic, diaphoretic with low O2 and fever at the MD. Patient was found with significant leukocytosis (34K) and L lung infiltrate, possible HCAP currently on antibiotics per ID. Cardiology was called due to tachycardia. Today patient denies any CP, no ICD therapies. Reports SOB. No events since admission. Per notes, ICD was interrogated on 03/2016 (Normal function, Mode: V V I. Lower rate: 50 bpm. Battery life: 2 years approx). - History Source History Provided By: Family Member (Son), Medical Record Limitations to Obtaining History: Other (Non-verbal patient) - Past Medical History Cardio/Vascular: Yes: AFIB (Paroxysmal), CHF, HTN, Hyperlipdemia, Other (h/o cardiac arrest s/p AICD - Single lead) Pulmonary: Yes: COPD, Other (respiratory failure) Gastrointestinal: Yes: GERD - Past Surgical History Past Surgical History: Yes: AICD (Medtronic, implanted following cardiac arrest) , Cataract Removal (2011) - Alcohol/Substance Use Hx Alcohol Use: No - Smoking History Smoking history: Unknown if ever smoked Have you smoked in the past 12 months: No Aproximately how many cigarettes per day: 0 Home Medications - Allergies Allergies/Adverse Reactions: Allergies Allergy/AdvReac Type Severity Reaction Status Date / Time doxycycline Allergy Intermediate Verified 10/19/16 12:58 CLAMS Allergy Intermediate Hives Uncoded 10/19/16 12:58 - Home Medications Home Medications: Ambulatory Orders Acetaminophen [Tylenol] 650 mg PO QID 10/19/16 Ascorbic Acid [Vitamin C -] 500 mg PO DAILY 10/19/16 Cephalexin [Keflex] 500 mg PO DAILY 10/19/16 Clonazepam [Klonopin -] 0.5 mg PO BID 10/19/16 Docusate Sodium 300 mg PO HS 10/19/16 Ferrous Sulfate 325 mg PO BID 10/19/16 Hypromellose 0.5% Opth Soln [Artificial Tears] 1 drop DAILY 10/19/16 Loratadine 10 mg PO DAILY 10/19/16 Multivitamin [Poly-Vitamin] 1 each PO DAILY 10/19/16 Omeprazole 20 mg PO DAILY 10/19/16 Prednisone [Deltasone -] 20 mg PO DAILY 10/19/16 Ranitidine HCl [Zantac] 150 mg PO DAILY 10/19/16 Rivaroxaban [Xarelto -] 20 mg PO DAILY 10/19/16 Simvastatin [Zocor -] 20 mg PO HS 10/19/16 Family Disease History - Family Disease History Family History: Unable to Obtain Vital Signs: Vital Signs Temperature 99.2 F 10/20/16 10:00 Pulse Rate 95 H 10/20/16 10:00 Respiratory Rate 14 10/20/16 10:00 Blood Pressure 124/76 10/20/16 10:00 O2 Sat by Pulse Oximetry (%) 97 10/20/16 10:00 Constitutional: Yes: No Distress (On vent), Calm Neck: Yes: Supple (Trach vent) Respiratory: Yes: Diminished, Rales, Rhonchi, Wheezes (Occasional) Gastrointestinal: Yes: Normal Bowel Sounds, Soft Cardiovascular: Yes: Regular Rate and Rhythm JVD: No Heart Sounds: Yes: S1, S2. No: S3, S4, Gallop, Rub, Bruit Extremities: Yes: WNL Edema: No Neurological: Yes: Alert - Other Data Labs, Other Data: CBC, BMP 10/20/16 08:00 10/20/16 08:00 INR, PTT INR 1.31 (0.82-1.09) H 10/19/16 12:55 Troponin, BNP 10/20/16 08:00 Troponin I < 0.02 B-Natriuretic Peptide 1228.44 H Troponin, BNP 10/20/16 08:00 Troponin I < 0.02 B-Natriuretic Peptide 1228.44 H ECG: Ectopic atrial rhythm at 107. LAD. Q waves anterior wall with PRWP. No ST- T changes suggestive of acute ischemia. Echo: Report Reviewed (Echo - 03/2016: Normal LV size and function. No wma. Trace MR) Ejection Fraction %: LVEF > or = 40 % Imaging - Results Chest X-ray: Report Reviewed, Image Reviewed (CXR: Worsening left base infiltrate. Single lead ICD) EKG: Image Reviewed Assessment/Plan This is a 81 yo F with medical history of paroxysmal [place] fibrillation on systemic AC (Xarelto), chronic resp failure on trach - vent dependent, HTN, HLD , cardiac arrest s/p ICD - Medtronic per notes, admitted due to fever, tachycardia, diaphoresis in the setting of LL PNA - HCPA. Currently on antibiotics per ID. There are no active CV issues at this time. Episodes of tachycardia are likely related to acute pulmonary infection and other active medical issues. Patient has chronically elevated BNP. However, there are no signs of fluid overload or active CV ischemia. Please continue systemic AC for primary prevention of thromboembolic events in the setting of paroxysmal AFib. Please follow recommendations from other consult services (ID, pulm). Please keep lytes with normal limits. Please get old medical records regarding ICD placement and follow-up. No further CV tests are required at this time. ICD interrogation per MD. Please call with questions. Thank you.
--- NOTE | 2016-10-20 15:42 | CONSULT ---
Admitting History and Physical - Admission Chief Complaint: anemia, dehydration, PNA, Fever, WBC= 34.4, AMS, sepsis. AICD, tracheostomy-cuffed/inflated, on vent History Source: Medical Record, Caregiver Limitations to Obtaining History: Clinical Condition - Past Medical History Cardiovascular: Yes: AFIB (Paroxysmal), CHF, HTN, Hyperlipdemia, Other (h/o cardiac arrest s/p AICD - Single lead) Pulmonary: Yes: COPD, Other (respiratory failure) Gastrointestinal: Yes: GERD Heme/Onc: Yes: Anemia - Past Surgical History Past Surgical History: Yes: AICD (Medtronic, implanted following cardiac arrest) , Cataract Removal (2011) - Smoking History Smoking history: Unknown if ever smoked Have you smoked in the past 12 months: No Aproximately how many cigarettes per day: 0 - Alcohol/Substance Use Hx Alcohol Use: No History - Admission Reason For Visit: PNEUMONIA - Diagnostics X-ray: Report Reviewed - General Mental Status: Awake and Alert, Able to Follow Commands Attention: Intact Ability to Follow Directions: Good Head/Neck Control: Fair - Hearing Hearing: Normal With Patient: No Speech Evaluation - Communication Primary Language: CYMRO - Swallow Evaluation/Bedside Assessment Current Nutritional Intake: Soft, Thin Liquids Oral Secretions: Yes: WFL Tracheostomy Present: Yes Patient on Ventilator: Yes Dentition: Yes: Adequate, Dental Appliance Upper, Dental Appliance Lower Facial Symmetry at Rest: Symmetrical Facial Symmetry on Retraction: Symmetrical Facial Movement: Controlled Sensation: Normal Jaw Position: Closed at Rest Against Resistance Opening: Normal Against Resistance Closing: Normal Pucker Lips: Normal Lingual Movement: Symmetric Lingual Speed of Movement: Reduced Lingual Movement Strgth Against Opposition: Normal Soft Palate Description: Normal Color, Normal Symmetry Hard Palate Description: Normal Color, Normal Symmetry Gag Reflex: Weak Bite Reflex: Absent Velopharyngeal Movement: Reduced Elevation Laryngeal Movement: Labored,delay initiation Needs Assistance: Yes Rate of Intake: WFL Bolus Size: WFL Labial Seal: WFL Oral Prep Time: Increased A-P Transit: WFL Pocketing: None Timing of Swallow: Delayed Coughing/Throat Clear: Yes (delayed cough with thin liquids, increased resp rate ) Recommendations - Dysphagia Impressions/Plan Swallowing Skills: Impaired Dysphagia Impressions: Moderate Impairment *Silent aspiration: cannot be R/O at bedside Dysphagia Treatment Plan: Small Bites, Chin Tuck/Down, Safe Rate, 1/2 tsp. at a time Dysphagia Evaluation Summary: 81 year old female presents with + signs of aspiration for thin liquids after delayed pharyngeal swallows [coughing, increased respiratory rate, mild diaphoresis]. Patient is able to tolerate soft chewable solids, purees and nectar thickened liquids without overt signs of aspiration. Recommendations: Other (patient must be positioned at midline and 90 degrees for PO intake and for 30 minutes afterwards. Suction before and after meals.) - Recommendations Diet Consistency: Mechanical Soft Medication Administration: Crushed with applesauce Liquids: [place] Thick
[2016-10-20] MEDS: AZITHROMYCIN IVPB 250 ML IVPB SCH (15:46)
--- NOTE | 2016-10-20 16:56 | CON.PULM ---
Consult Consult Specialty:: PULMONARY Referred by:: NICOLE Reason for Consultation:: FEVER/REDUCED SPO2/VENT MANAGEMENT/PNEUMONIA - History of Present Illness Chief Complaint: TRANSFERRED FROM SNF DUE TO FEVER/TACHYPNEA/TACHYCARDIA History of Present Illness: WELL KNOWN BY ME FROM SNF VISITS. TRANSFERRED AT MY REQUEST DUE TO TACHYCARDIA/TACHYPNEA/FEVER AND CHEST CONGESTION. 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 SPECIALIST: No: Alzheimer's Cardio/Vascular: Yes: AFIB (Paroxysmal), CHF, HTN, Hyperlipdemia, Other (h/o cardiac arrest s/p AICD - Single lead) Pulmonary: Yes: COPD, Other (respiratory failure) Gastrointestinal: Yes: GERD - Past Surgical History Past Surgical History: Yes: AICD (Medtronic, implanted following cardiac arrest) , Cataract Removal (2011) - Alcohol/Substance Use Hx Alcohol Use: No - Smoking History Smoking history: Unknown if ever smoked Have you smoked in the past 12 months: No Aproximately how many cigarettes per day: 0 - Social History Usual [facility] Arrangement: [facility] History of Recent Travel: No Home Medications - Allergies Allergies/Adverse Reactions: Allergies Allergy/AdvReac Type Severity Reaction Status Date / Time doxycycline Allergy Intermediate Verified 10/19/16 12:58 CLAMS Allergy Intermediate Hives Uncoded 10/19/16 12:58 - Home Medications Home Medications: Ambulatory Orders Acetaminophen [Tylenol] 650 mg PO QID 10/19/16 Ascorbic Acid [Vitamin C -] 500 mg PO DAILY 10/19/16 Cephalexin [Keflex] 500 mg PO DAILY 10/19/16 Clonazepam [Klonopin -] 0.5 mg PO BID 10/19/16 Docusate Sodium 300 mg PO HS 10/19/16 Ferrous Sulfate 325 mg PO BID 10/19/16 Hypromellose 0.5% Opth Soln [Artificial Tears] 1 drop DAILY 10/19/16 Loratadine 10 mg PO DAILY 10/19/16 Multivitamin [Poly-Vitamin] 1 each PO DAILY 10/19/16 Omeprazole 20 mg PO DAILY 10/19/16 Prednisone [Deltasone -] 20 mg PO DAILY 10/19/16 Ranitidine HCl [Zantac] 150 mg PO DAILY 10/19/16 Rivaroxaban [Xarelto -] 20 mg PO DAILY 10/19/16 Simvastatin [Zocor -] 20 mg PO HS 10/19/16 Family Disease History - Family Disease History Family History: Unable to Obtain Review of Systems Unable to obtain ROS, reason: NONVERBAL Physical Exam Vital Sings: Vital Signs Temperature 99.5 F 10/20/16 14:43 Pulse Rate 103 H 10/20/16 14:43 Respiratory Rate 16 10/20/16 14:43 Blood Pressure 135/79 10/20/16 14:43 O2 Sat by Pulse Oximetry (%) 97 10/20/16 10:00 Constitutional: Yes: Calm Eyes: Yes: EOM Intact HENT: Yes: Normocephalic Neck: Yes: Other (TRACH IN PLACE) Cardiovascular: Yes: Regular Rate and Rhythm, S1, S2 Respiratory: Yes: Diminished (BILATERAL) Gastrointestinal: Yes: Soft Edema: No Labs: CBC, BMP 10/20/16 08:00 10/20/16 08:00 Imaging - Results Chest X-ray: Report Reviewed, Image Reviewed Problem List - Problems (1) Anemia Code(s): D64.9 - ANEMIA, UNSPECIFIED Qualifiers: Anemia type: iron deficiency (2) Pneumonia Code(s): J18.9 - PNEUMONIA, UNSPECIFIED ORGANISM (3) Acute and chronic respiratory failure with hypercapnia Code(s): J96.22 - ACUTE AND CHRONIC RESPIRATORY FAILURE WITH HYPERCAPNIA (4) COPD (chronic obstructive pulmonary disease) Code(s): J44.9 - CHRONIC OBSTRUCTIVE PULMONARY DISEASE, UNSPECIFIED Assessment/Plan CHECK PENDING CULTURES CONTINUE CURRENT VENT SETTINGS FIO2 .4 VT450 RR12 PEEP 5 ANTIBIOTICS PER ID CURRENT DOSE STEROIDS ANTICOAGULATION/BRONCHODILATION WILL FOLLOW THANK YOU Brandi FLOREZ MD
[2016-10-20] MEDS ORDERED: INSULIN DETEMIR 100 UNITS/ML MDV SQ ONE (18:11)
[2016-10-20] MEDS: DOCUSATE SODIUM 100 MG CAPSULE (FP) PO SCH (21:14)
[2016-10-20] MEDS: ATORVASTATIN CA 10 MG TABLET (FP) PO SCH (21:14)
[2016-10-21] MEDS: CEFEPIME 1 GM/100 ML BAG PRE-DOCKED IVPB SCH ×3 (01:14→18:17)
[2016-10-21 09:36] LABS: BASOPHIL 0.6 % (0-2.0); EOSINOPHIL 1.7 % (0-4.5); MCH 27.7 pg (25.7-33.7); MCHC 32.5 g/dl (32.0-36.0); MEAN CELL VOLUME 85.2 fl (80-96); MEAN PLT VOLUME 8.4 fl (7.5-11.1); NEUTROPHILS 83.4 % (42.8-82.8); PLATELET COUNT 218 K/MM3 (134-434); RDW 16.5 % (11.6-15.6); WHITE BLOOD COUNT 16.7 K/mm3 (4.0-10.0)
[2016-10-21 10:00] LABS: ALBUMIN 2.5 g/dl (3.4-5.0); ANION GAP 11 (8-16); CALCIUM 8.6 mg/dL (8.5-10.1); CO2 29 mmol/L (21-32); GLUCOSE,RANDOM 107 mg/dL (74-106)
[2016-10-21 10:03] LABS: ALK PHOS 83 U/L (45-117); BILIRUBIN,TOTAL 0.4 mg/dL (0.2-1.0); CREATININE 0.6 mg/dL (0.55-1.02); SGOT/AST 14 U/L (15-37); SGPT/ALT 16 U/L (12-78); TOT PROT 6.7 g/dl (6.4-8.2)
--- NOTE | 2016-10-21 10:11 | PN ---
Progress Note, Physician History of Present Illness: No new events overnight. - Current Medication List Current Medications: Active Medications Albuterol Sulfate (Ventolin 0.083% Nebulizer Soln -) 1 amp NEB Q4H PRN PRN Reason: SHORT OF BREATH/WHEEZING Last Admin: 10/20/16 13:04 Dose: 1 amp Artificial Tears (Artificial Tears) 1 drop OU DAILY [facility] Last Admin: 10/20/16 11:29 Dose: 1 drop Ascorbic Acid (Vitamin C -) 500 mg PO DAILY [facility] Last Admin: 10/20/16 11:29 Dose: 500 mg Atorvastatin Calcium (Lipitor -) 10 mg PO HS [facility] Last Admin: 10/20/16 21:14 Dose: 10 mg Cefepime HCl (Maxipime 1gm Ivpb Pre-Docked) 1 gm IVPB Q8H-IV [facility] PRN Reason: Protocol Last Admin: 10/21/16 01:14 Dose: 1 gm Docusate Sodium (Colace -) 300 mg PO HS [facility] Last Admin: 10/20/16 21:14 Dose: 300 mg Ferrous Sulfate (Feosol -) 325 mg PO BID [facility] Last Admin: 10/20/16 21:14 Dose: 325 mg Azithromycin (Zithromax 500mg Ivpb (Pre-Docked)) 250 mls @ 250 mls/hr IVPB DAILY [facility] Last Admin: 10/20/16 15:46 Dose: 250 mls/hr Lactobacillus Acidophilus (Bacid -) 1 tab PO DAILY [facility] Last Admin: 10/20/16 11:28 Dose: 1 tab Loratadine (Claritin -) 10 mg PO DAILY [facility] Last Admin: 10/20/16 11:28 Dose: 10 mg Multivitamins/Minerals/Vitamin C (Tab-A-Vit -) 1 tab PO DAILY [facility] Last Admin: 10/20/16 11:28 Dose: 1 tab Pantoprazole Sodium (Protonix -) 20 mg PO DAILY [facility] Last Admin: 10/20/16 11:29 Dose: 20 mg Prednisone (Deltasone -) 20 mg PO DAILY [facility] Last Admin: 10/20/16 11:28 Dose: 20 mg Rivaroxaban (Xarelto -) 20 mg PO DAILY [facility] Last Admin: 10/20/16 11:29 Dose: 20 mg - Objective Vital Signs: Vital Signs Temperature 98.8 F 10/21/16 06:00 Pulse Rate 83 10/21/16 06:00 Respiratory Rate 14 10/21/16 06:45 Blood Pressure 110/68 10/21/16 06:00 O2 Sat by Pulse Oximetry (%) 97 10/20/16 21:00 Constitutional: Yes: No Distress Eyes: Yes: Conjunctiva Clear, EOM Intact HENT: Yes: Atraumatic, Normocephalic Respiratory: Yes: CTA Bilaterally Labs: CBC, BMP 10/21/16 08:00 10/21/16 08:00 INR, PTT INR 1.31 (0.82-1.09) H 10/19/16 12:55 Assessment/Plan 81 yo female with paroxysmal atrial fibrillation (on Xarelto), prior cardiac arrest with Medtronic AICD (implanted ~ 5 years ago), reported CHF/COPD, vent dependent with trach, iron deficiency anemia, hypertension, hyperlipidemia, UTI s, and GI bleed. Admitted with tachycardia, low O2, and fevers at the IA. Patient was found with significant leukocytosis (34K) and L lung infiltrate, possible HCAP currently on antibiotics per ID. Cardiology was consulted for tachycardia, which has resolved. Denies CP, no ICD firing. Although patient has elevated BNP of 1228, patient does not appear to be in CHF on physical exam (no JVD or peripheral edema). Patient's AICD was last interrogated on 04/17/16 and demonstrated normal function (mode VVI, lower rate 50 bpm, only V-paced 0.6%, battery life ~ 2 years ). Echo on 04/18/16 demonstrated normal LV size and systolic function, trace to mild MR. RECS: No active cardiac issues at this time as patient is not tachycardic. Patient does not appear volume overloaded and would not treat patient's elevated BNP (which is chronically elevated) as no other clinical evidence of CHF. Continue Xarelto for afib thrombembolic prophylaxis. No further cardiac testing or intervention is required at this time. Further recs as per primary team and pulmonary service. If patient still requires inpatient hospitalization through Sunday, may consider interrogation of her Medtronic AICD for routine check (6 months since last interrogation). Otherwise, this can be done as outpatient at her snf since no evidence of AICD firing. Will see prn. Please call with specific questions.
[2016-10-21] MEDS: ARTIFICIAL TEARS (POLYVINYL ALCOHOL 1.4%) OPTH DROPS OU SCH (11:21)
[2016-10-21] MEDS: MULTIVITAMINS (DAILY MVI) TABLET (FP) PO SCH (11:23)
[2016-10-21] MEDS: PANTOPRAZOLE 20 MG TABLET (FP) PO SCH (11:23)
[2016-10-21] MEDS: RIVAROXABAN 20 MG TABLET PO SCH (11:23)
[2016-10-21] MEDS: ASCORBIC ACID 500 MG TABLET (FP) PO SCH (11:23)
[2016-10-21] MEDS: predniSONE 20 MG TABLET (UD) PO SCH (11:23)
[2016-10-21] MEDS: LORATADINE 10 MG TABLET PO SCH (11:23)
[2016-10-21] MEDS: FERROUS SO4 325 MG TABLET (FP) PO SCH ×2 (11:24→23:07)
[2016-10-21] MEDS: LACTOBACILLUS ACIDOPHILUS 1 EACH TAB (FP) PO SCH (11:24)
[2016-10-21] MEDS: AZITHROMYCIN IVPB 250 ML IVPB SCH (12:15)
--- NOTE | 2016-10-21 13:22 | PN ---
Progress Note (short form) - Note Progress Note: Awake on AC Mode of vent. No acute events overnight. Noted ABX coverage. Intake & Output 10/18/16 10/19/16 10/20/16 10/21/16 23:59 23:59 23:59 23:59 Intake Total 1210 100 Balance 1210 100 Weight 101 lb Last Vital Signs Temp Pulse Resp BP Pulse Ox 98.6 F 82 12 138/89 95 10/21/16 10:00 10/21/16 11:42 10/21/16 11:00 10/21/16 10:00 10/21/16 11:42 Active Medications Albuterol Sulfate (Ventolin 0.083% Nebulizer Soln -) 1 amp NEB Q4H PRN PRN Reason: SHORT OF BREATH/WHEEZING Last Admin: 10/20/16 13:04 Dose: 1 amp Artificial Tears (Artificial Tears) 1 drop OU DAILY [facility] Last Admin: 10/21/16 11:21 Dose: 1 drop Ascorbic Acid (Vitamin C -) 500 mg PO DAILY [facility] Last Admin: 10/21/16 11:23 Dose: 500 mg Atorvastatin Calcium (Lipitor -) 10 mg PO HS [facility] Last Admin: 10/20/16 21:14 Dose: 10 mg Cefepime HCl (Maxipime 1gm Ivpb Pre-Docked) 1 gm IVPB Q8H-IV [facility] PRN Reason: Protocol Last Admin: 10/21/16 11:22 Dose: 1 gm Docusate Sodium (Colace -) 300 mg PO HS [facility] Last Admin: 10/20/16 21:14 Dose: 300 mg Ferrous Sulfate (Feosol -) 325 mg PO BID [facility] Last Admin: 10/21/16 11:24 Dose: 325 mg Azithromycin (Zithromax 500mg Ivpb (Pre-Docked)) 250 mls @ 250 mls/hr IVPB DAILY [facility] Last Admin: 10/21/16 12:15 Dose: 250 mls/hr Lactobacillus Acidophilus (Bacid -) 1 tab PO DAILY [facility] Last Admin: 10/21/16 11:24 Dose: 1 tab Loratadine (Claritin -) 10 mg PO DAILY [facility] Last Admin: 10/21/16 11:23 Dose: 10 mg Multivitamins/Minerals/Vitamin C (Tab-A-Vit -) 1 tab PO DAILY [facility] Last Admin: 10/21/16 11:23 Dose: 1 tab Pantoprazole Sodium (Protonix -) 20 mg PO DAILY [facility] Last Admin: 10/21/16 11:23 Dose: 20 mg Prednisone (Deltasone -) 20 mg PO DAILY [facility] Last Admin: 10/21/16 11:23 Dose: 20 mg Rivaroxaban (Xarelto -) 20 mg PO DAILY [facility] Last Admin: 10/21/16 11:23 Dose: 20 mg Constitutional: Yes: NAD on AC mode of vent Eyes: Yes: EOM Intact HENT: Yes: Normocephalic Neck: Yes: Other (TRACH IN PLACE) Cardiovascular: Yes: Regular Rate and Rhythm, S1, S2 Respiratory: Yes: Diminished at the base, few scattered rhonchi Gastrointestinal: Yes: Soft Edema: No Labs: Laboratory Results - last 24 hr 10/21/16 10/21/16 08:00 08:00 WBC 16.7 H D RBC 3.81 Hgb 10.5 L Hct 32.4 MCV 85.2 MCHC 32.5 RDW 16.5 H Plt Count 218 MPV 8.4 Neutrophils % 83.4 H Lymphocytes % 9.0 D Monocytes % 5.3 D Eosinophils % 1.7 Basophils % 0.6 D Sodium 139 Potassium 3.7 Chloride 99 Carbon Dioxide 29 Anion Gap 11 BUN 23 H D Creatinine 0.6 Creat Clearance w eGFR > 60 Random Glucose 107 H D Calcium 8.6 Total Bilirubin 0.4 D AST 14 L ALT 16 Alkaline Phosphatase 83 Total Protein 6.7 Albumin 2.5 L Problem List - Problems (1) Anemia Code(s): D64.9 - ANEMIA, UNSPECIFIED Qualifiers: Anemia type: iron deficiency (2) Pneumonia Code(s): J18.9 - PNEUMONIA, UNSPECIFIED ORGANISM (3) Acute and chronic respiratory failure with hypercapnia Code(s): J96.22 - ACUTE AND CHRONIC RESPIRATORY FAILURE WITH HYPERCAPNIA (4) COPD (chronic obstructive pulmonary disease) Code(s): J44.9 - CHRONIC OBSTRUCTIVE PULMONARY DISEASE, UNSPECIFIED Assessment/Plan ABX Per ID Current vent settings FIO2 .4 VT450 RR12 PEEP [address] [place] AC [address] Medina
--- NOTE | 2016-10-21 13:22 | PN ---
Progress Note, Physician History of Present Illness: on vent comfortable - Current Medication List Current Medications: Active Medications Albuterol Sulfate (Ventolin 0.083% Nebulizer Soln -) 1 amp NEB Q4H PRN PRN Reason: SHORT OF BREATH/WHEEZING Last Admin: 10/20/16 13:04 Dose: 1 amp Artificial Tears (Artificial Tears) 1 drop OU DAILY [facility] Last Admin: 10/21/16 11:21 Dose: 1 drop Ascorbic Acid (Vitamin C -) 500 mg PO DAILY [facility] Last Admin: 10/21/16 11:23 Dose: 500 mg Atorvastatin Calcium (Lipitor -) 10 mg PO HS [facility] Last Admin: 10/20/16 21:14 Dose: 10 mg Cefepime HCl (Maxipime 1gm Ivpb Pre-Docked) 1 gm IVPB Q8H-IV [facility] PRN Reason: Protocol Last Admin: 10/21/16 11:22 Dose: 1 gm Docusate Sodium (Colace -) 300 mg PO HS [facility] Last Admin: 10/20/16 21:14 Dose: 300 mg Ferrous Sulfate (Feosol -) 325 mg PO BID [facility] Last Admin: 10/21/16 11:24 Dose: 325 mg Azithromycin (Zithromax 500mg Ivpb (Pre-Docked)) 250 mls @ 250 mls/hr IVPB DAILY [facility] Last Admin: 10/21/16 12:15 Dose: 250 mls/hr Lactobacillus Acidophilus (Bacid -) 1 tab PO DAILY [facility] Last Admin: 10/21/16 11:24 Dose: 1 tab Loratadine (Claritin -) 10 mg PO DAILY [facility] Last Admin: 10/21/16 11:23 Dose: 10 mg Multivitamins/Minerals/Vitamin C (Tab-A-Vit -) 1 tab PO DAILY [facility] Last Admin: 10/21/16 11:23 Dose: 1 tab Pantoprazole Sodium (Protonix -) 20 mg PO DAILY [facility] Last Admin: 10/21/16 11:23 Dose: 20 mg Prednisone (Deltasone -) 20 mg PO DAILY [facility] Last Admin: 10/21/16 11:23 Dose: 20 mg Rivaroxaban (Xarelto -) 20 mg PO DAILY [facility] Last Admin: 10/21/16 11:23 Dose: 20 mg - Objective Vital Signs: Vital Signs Temperature 98.6 F 10/21/16 10:00 Pulse Rate 82 10/21/16 11:42 Respiratory Rate 12 10/21/16 11:00 Blood Pressure 138/89 10/21/16 10:00 O2 Sat by Pulse Oximetry (%) 95 10/21/16 11:42 Cardiovascular: Yes: S1, S2 Respiratory: Yes: Mechanically Ventilated, Rhonchi Gastrointestinal: Yes: Normal Bowel Sounds, Soft Labs: CBC, BMP 10/21/16 08:00 10/21/16 08:00 INR, PTT INR 1.31 (0.82-1.09) H 10/19/16 12:55 Assessment/Plan - Problems (1) Pneumonia Assessment/Plan: ID eval broad spectrum abx follow up cultures Code(s): J18.9 - PNEUMONIA, UNSPECIFIED ORGANISM (2) COPD (chronic obstructive pulmonary disease) Assessment/Plan: pulm eval steroids vent support Code(s): J44.9 - CHRONIC OBSTRUCTIVE PULMONARY DISEASE, UNSPECIFIED (3) Chronic respiratory failure Assessment/Plan: vent support Code(s): J96.10 - CHRONIC RESPIRATORY FAILURE, UNSP W HYPOXIA OR HYPERCAPNIA Qualifiers: Respiratory failure complication: hypercapnia Qualified Code(s): J96.12 - Chronic respiratory failure with hypercapnia (4) PAF (paroxysmal atrial fibrillation) Assessment/Plan: xarelto Code(s): I48.0 - PAROXYSMAL ATRIAL FIBRILLATION (5) Anemia Assessment/Plan: ferrous sulfate Code(s): D64.9 - ANEMIA, UNSPECIFIED Qualifiers: Anemia type: iron deficiency
[2016-10-21] MEDS: DOCUSATE SODIUM 100 MG CAPSULE (FP) PO SCH (23:06)
[2016-10-21] MEDS: ATORVASTATIN CA 10 MG TABLET (FP) PO SCH (23:07)
[2016-10-22] MEDS: CEFEPIME 1 GM/100 ML BAG PRE-DOCKED IVPB SCH ×2 (03:00→10:46)
[2016-10-22] MEDS: ARTIFICIAL TEARS (POLYVINYL ALCOHOL 1.4%) OPTH DROPS OU SCH (10:44)
[2016-10-22] MEDS: ALBUTEROL SO4 0.083% IH SOL 2.5 MG/3 ML VIAL.NEB. NEB PRN (10:45)
[2016-10-22] MEDS: MULTIVITAMINS (DAILY MVI) TABLET (FP) PO SCH (10:46)
[2016-10-22] MEDS: ASCORBIC ACID 500 MG TABLET (FP) PO SCH (10:46)
[2016-10-22] MEDS: LORATADINE 10 MG TABLET PO SCH (10:46)
[2016-10-22] MEDS: LACTOBACILLUS ACIDOPHILUS 1 EACH TAB (FP) PO SCH (10:46)
[2016-10-22] MEDS: FERROUS SO4 325 MG TABLET (FP) PO SCH ×2 (10:46→22:42)
[2016-10-22] MEDS: RIVAROXABAN 20 MG TABLET PO SCH (10:46)
[2016-10-22] MEDS: predniSONE 20 MG TABLET (UD) PO SCH (10:46)
[2016-10-22] MEDS: PANTOPRAZOLE 20 MG TABLET (FP) PO SCH (10:46)
--- NOTE | 2016-10-22 11:20 | PN ---
Progress Note, Physician History of Present Illness: on vent comfortable - Current Medication List Current Medications: Active Medications Albuterol Sulfate (Ventolin 0.083% Nebulizer Soln -) 1 amp NEB Q4H PRN PRN Reason: SHORT OF BREATH/WHEEZING Last Admin: 10/22/16 10:45 Dose: 1 amp Artificial Tears (Artificial Tears) 1 drop OU DAILY [facility] Last Admin: 10/22/16 10:44 Dose: 1 drop Ascorbic Acid (Vitamin C -) 500 mg PO DAILY [facility] Last Admin: 10/22/16 10:46 Dose: 500 mg Atorvastatin Calcium (Lipitor -) 10 mg PO HS [facility] Last Admin: 10/21/16 23:07 Dose: 10 mg Cefepime HCl (Maxipime 1gm Ivpb Pre-Docked) 1 gm IVPB Q8H-IV [facility] PRN Reason: Protocol Last Admin: 10/22/16 10:46 Dose: 1 gm Docusate Sodium (Colace -) 300 mg PO HS [facility] Last Admin: 10/21/16 23:06 Dose: 300 mg Ferrous Sulfate (Feosol -) 325 mg PO BID [facility] Last Admin: 10/22/16 10:46 Dose: 325 mg Azithromycin (Zithromax 500mg Ivpb (Pre-Docked)) 250 mls @ 250 mls/hr IVPB DAILY [facility] Last Admin: 10/21/16 12:15 Dose: 250 mls/hr Lactobacillus Acidophilus (Bacid -) 1 tab PO DAILY [facility] Last Admin: 10/22/16 10:46 Dose: 1 tab Loratadine (Claritin -) 10 mg PO DAILY [facility] Last Admin: 10/22/16 10:46 Dose: 10 mg Multivitamins/Minerals/Vitamin C (Tab-A-Vit -) 1 tab PO DAILY [facility] Last Admin: 10/22/16 10:46 Dose: 1 tab Pantoprazole Sodium (Protonix -) 20 mg PO DAILY [facility] Last Admin: 10/22/16 10:46 Dose: 20 mg Prednisone (Deltasone -) 20 mg PO DAILY [facility] Last Admin: 10/22/16 10:46 Dose: 20 mg Rivaroxaban (Xarelto -) 20 mg PO DAILY [facility] Last Admin: 10/22/16 10:46 Dose: 20 mg - Objective Vital Signs: Vital Signs Temperature 99.1 F 10/22/16 10:00 Pulse Rate 84 10/22/16 10:00 Respiratory Rate 12 10/22/16 10:42 Blood Pressure 106/58 10/22/16 10:00 O2 Sat by Pulse Oximetry (%) 97 10/21/16 21:00 Cardiovascular: Yes: S1, S2 Respiratory: Yes: Mechanically Ventilated, Rhonchi Gastrointestinal: Yes: Normal Bowel Sounds, Soft Labs: CBC, BMP 10/21/16 08:00 10/21/16 08:00 INR, PTT INR 1.31 (0.82-1.09) H 10/19/16 12:55 Assessment/Plan - Problems (1) Pneumonia Assessment/Plan: ID eval broad spectrum abx follow up cultures Code(s): J18.9 - PNEUMONIA, UNSPECIFIED ORGANISM (2) COPD (chronic obstructive pulmonary disease) Assessment/Plan: pulm eval steroids vent support Code(s): J44.9 - CHRONIC OBSTRUCTIVE PULMONARY DISEASE, UNSPECIFIED (3) Chronic respiratory failure Assessment/Plan: vent support Code(s): J96.10 - CHRONIC RESPIRATORY FAILURE, UNSP W HYPOXIA OR HYPERCAPNIA Qualifiers: Respiratory failure complication: hypercapnia Qualified Code(s): J96.12 - Chronic respiratory failure with hypercapnia (4) PAF (paroxysmal atrial fibrillation) Assessment/Plan: xarelto Code(s): I48.0 - PAROXYSMAL ATRIAL FIBRILLATION (5) Anemia Assessment/Plan: ferrous sulfate Code(s): D64.9 - ANEMIA, UNSPECIFIED Qualifiers: Anemia type: iron deficiency
--- NOTE | 2016-10-22 11:54 | PN ---
Progress Note (short form) - Note Progress Note: Awake on AC Mode of vent. No acute events overnight. Intake & Output 10/19/16 10/20/16 10/21/16 10/22/16 23:59 23:59 23:59 23:59 Intake Total 1210 1170 350 Balance 1210 1170 350 Weight 101 lb Last Vital Signs Temp Pulse Resp BP Pulse Ox 99.1 F 84 12 106/58 97 10/22/16 10:00 10/22/16 10:00 10/22/16 10:42 10/22/16 10:00 10/21/16 21:00 Active Medications Albuterol Sulfate (Ventolin 0.083% Nebulizer Soln -) 1 amp NEB Q4H PRN PRN Reason: SHORT OF BREATH/WHEEZING Last Admin: 10/22/16 10:45 Dose: 1 amp Artificial Tears (Artificial Tears) 1 drop OU DAILY [facility] Last Admin: 10/22/16 10:44 Dose: 1 drop Ascorbic Acid (Vitamin C -) 500 mg PO DAILY [facility] Last Admin: 10/22/16 10:46 Dose: 500 mg Atorvastatin Calcium (Lipitor -) 10 mg PO HS [facility] Last Admin: 10/21/16 23:07 Dose: 10 mg Cefepime HCl (Maxipime 1gm Ivpb Pre-Docked) 1 gm IVPB Q8H-IV [facility] PRN Reason: Protocol Last Admin: 10/22/16 10:46 Dose: 1 gm Docusate Sodium (Colace -) 300 mg PO HS [facility] Last Admin: 10/21/16 23:06 Dose: 300 mg Ferrous Sulfate (Feosol -) 325 mg PO BID [facility] Last Admin: 10/22/16 10:46 Dose: 325 mg Azithromycin (Zithromax 500mg Ivpb (Pre-Docked)) 250 mls @ 250 mls/hr IVPB DAILY [facility] Last Admin: 10/21/16 12:15 Dose: 250 mls/hr Lactobacillus Acidophilus (Bacid -) 1 tab PO DAILY [facility] Last Admin: 10/22/16 10:46 Dose: 1 tab Loratadine (Claritin -) 10 mg PO DAILY [facility] Last Admin: 10/22/16 10:46 Dose: 10 mg Multivitamins/Minerals/Vitamin C (Tab-A-Vit -) 1 tab PO DAILY [facility] Last Admin: 04/02/17 10:46 Dose: 1 tab Pantoprazole Sodium (Protonix -) 20 mg PO DAILY [facility] Last Admin: 10/22/16 10:46 Dose: 20 mg Prednisone (Deltasone -) 20 mg PO DAILY [facility] Last Admin: 10/22/16 10:46 Dose: 20 mg Rivaroxaban (Xarelto -) 20 mg PO DAILY [facility] Last Admin: 10/22/16 10:46 Dose: 20 mg Constitutional: Yes: NAD on AC mode of vent Eyes: Yes: EOM Intact HENT: Yes: Normocephalic Neck: Yes: Other (TRACH IN PLACE) Cardiovascular: Yes: Regular Rate and Rhythm, S1, S2 Respiratory: Yes: Diminished at the base, few scattered rhonchi Gastrointestinal: Yes: Soft Edema: No Labs: Problem List - Problems (1) Anemia Code(s): D64.9 - ANEMIA, UNSPECIFIED Qualifiers: Anemia type: iron deficiency (2) Pneumonia Code(s): J18.9 - PNEUMONIA, UNSPECIFIED ORGANISM (3) Acute and chronic respiratory failure with hypercapnia Code(s): J96.22 - ACUTE AND CHRONIC RESPIRATORY FAILURE WITH HYPERCAPNIA (4) COPD (chronic obstructive pulmonary disease) Code(s): J44.9 - CHRONIC OBSTRUCTIVE PULMONARY DISEASE, UNSPECIFIED Assessment/Plan ABX Per ID Current vent settings FIO2 .4 VT450 RR12 PEEP [address]nisone BD [place] AC [address] Medina
[2016-10-22] MEDS: AZITHROMYCIN IVPB 250 ML IVPB SCH (12:11)
--- NOTE | 2016-10-22 12:35 | PN ---
Progress Note (short form) - Note Progress Note: alert eating lunch Vital Signs Period Temp Pulse Resp BP Sys/Vera Pulse Ox Last 24 Hr 97.8 F-99.4 F 71-91 12-20 98-135/58-88 97 cor-rrr lungs bilateral rhonchi abd soft, ext no edema CBC, BMP 10/21/16 08:00 10/21/16 08:00 Microbiology 10/20/16 11:30 Sputum - Endotrachea Suction/Ventilator Gram Stain - Final 10/20/16 11:30 Sputum - Endotrachea Suction/Ventilator Sputum Culture - Final Morganella Morganii Proteus Mirabilus - Esbl Produ 10/19/16 11:30 Blood - Peripheral Venous Blood Culture - Preliminary NO GROWTH OBTAINED AFTER 48 HOURS, INCUBATION TO CONTINUE FOR 3 DAYS. 10/19/16 11:30 Blood - Peripheral Venous Blood Culture - Preliminary NO GROWTH OBTAINED AFTER 48 HOURS, INCUBATION TO CONTINUE FOR 3 DAYS. 10/20/16 15:00 Urine For Antigen Detection Legionella Antigen - Final 10/20/16 15:00 Urine For Antigen Detection Streptococcus pneumoniae Antigen (M - Final 10/19/16 12:55 Urine - Urine Clean Catch Urine Culture - Final Yeast Like Organism Current Medications Albuterol Sulfate (Ventolin 0.083% Nebulizer Soln -) 1 amp NEB Q4H PRN PRN Reason: SHORT OF BREATH/WHEEZING Last Admin: 10/22/16 10:45 Dose: 1 amp Artificial Tears (Artificial Tears) 1 drop OU DAILY [facility] Last Admin: 10/22/16 10:44 Dose: 1 drop Ascorbic Acid (Vitamin C -) 500 mg PO DAILY [facility] Last Admin: 10/22/16 10:46 Dose: 500 mg Atorvastatin Calcium (Lipitor -) 10 mg PO HS [facility] Last Admin: 10/21/16 23:07 Dose: 10 mg Cefepime HCl (Maxipime 1gm Ivpb Pre-Docked) 1 gm IVPB Q8H-IV [facility] PRN Reason: Protocol Last Admin: 10/22/16 10:46 Dose: 1 gm Docusate Sodium (Colace -) 300 mg PO HS [facility] Last Admin: 10/21/16 23:06 Dose: 300 mg Ferrous Sulfate (Feosol -) 325 mg PO BID [facility] Last Admin: 10/22/16 10:46 Dose: 325 mg Azithromycin (Zithromax 500mg Ivpb (Pre-Docked)) 250 mls @ 250 mls/hr IVPB DAILY [facility] Last Admin: 10/22/16 12:11 Dose: 250 mls/hr Lactobacillus Acidophilus (Bacid -) 1 tab PO DAILY [facility] Last Admin: 10/22/16 10:46 Dose: 1 tab Loratadine (Claritin -) 10 mg PO DAILY [facility] Last Admin: 10/22/16 10:46 Dose: 10 mg Multivitamins/Minerals/Vitamin C (Tab-A-Vit -) 1 tab PO DAILY [facility] Last Admin: 10/22/16 10:46 Dose: 1 tab Pantoprazole Sodium (Protonix -) 20 mg PO DAILY [facility] Last Admin: 10/22/16 10:46 Dose: 20 mg Prednisone (Deltasone -) 20 mg PO DAILY [facility] Last Admin: 10/22/16 10:46 Dose: 20 mg Rivaroxaban (Xarelto -) 20 mg PO DAILY [facility] Last Admin: 10/22/16 10:46 Dose: 20 mg a/p LLL pneumonia chronic resp failure AICD switch to ertapenem contact isolation Problem List - Problems (1) Pneumonia Code(s): J18.9 - PNEUMONIA, UNSPECIFIED ORGANISM (2) Chronic respiratory failure Code(s): J96.10 - CHRONIC RESPIRATORY FAILURE, UNSP W HYPOXIA OR HYPERCAPNIA Qualifiers: Respiratory failure complication: hypercapnia Qualified Code(s): J96.12 - Chronic respiratory failure with hypercapnia (3) AICD (automatic cardioverter/defibrillator) present Code(s): Z95.810 - PRESENCE OF AUTOMATIC (IMPLANTABLE) CARDIAC DEFIBRILLATOR
[2016-10-22] MEDS: ERTAPENEM SODIUM 1 GM in SODIUM CHLORIDE 50 ML IVPB SCH (14:33)
[2016-10-22] MEDS: ALBUTEROL SO4 2.5/IPRATROPIUM 0.5 INH SOL 3 ML VIAL.NEB. NEB SCH ×2 (19:44→23:10)
[2016-10-22] MEDS: DOCUSATE SODIUM 100 MG CAPSULE (FP) PO SCH (22:42)
[2016-10-22] MEDS: ATORVASTATIN CA 10 MG TABLET (FP) PO SCH (22:42)
[2016-10-23] MEDS: ALBUTEROL SO4 2.5/IPRATROPIUM 0.5 INH SOL 3 ML VIAL.NEB. NEB SCH ×4 (06:06→23:05)
--- NOTE | 2016-10-23 09:07 | PN ---
Progress Note, Physician History of Present Illness: on vent comfortable - Current Medication List Current Medications: Active Medications Albuterol Sulfate (Ventolin 0.083% Nebulizer Soln -) 1 amp NEB Q4H PRN PRN Reason: SHORT OF BREATH/WHEEZING Last Admin: 10/22/16 10:45 Dose: 1 amp Albuterol/Ipratropium (Duoneb -) 1 amp NEB QIDR [facility] Last Admin: 10/23/16 06:06 Dose: 1 amp Artificial Tears (Artificial Tears) 1 drop OU DAILY [facility] Last Admin: 10/22/16 10:44 Dose: 1 drop Ascorbic Acid (Vitamin C -) 500 mg PO DAILY [facility] Last Admin: 10/22/16 10:46 Dose: 500 mg Atorvastatin Calcium (Lipitor -) 10 mg PO HS [facility] Last Admin: 10/22/16 22:42 Dose: 10 mg Docusate Sodium (Colace -) 300 mg PO HS [facility] Last Admin: 10/22/16 22:42 Dose: 300 mg Ferrous Sulfate (Feosol -) 325 mg PO BID [facility] Last Admin: 10/22/16 22:42 Dose: 325 mg Ertapenem 1 gm/ Sodium (Chloride) 50 mls @ 100 mls/hr IVPB DAILY [facility] PRN Reason: Protocol Last Admin: 10/22/16 14:33 Dose: 100 mls/hr Lactobacillus Acidophilus (Bacid -) 1 tab PO DAILY [facility] Last Admin: 10/22/16 10:46 Dose: 1 tab Loratadine (Claritin -) 10 mg PO DAILY [facility] Last Admin: 10/22/16 10:46 Dose: 10 mg Multivitamins/Minerals/Vitamin C (Tab-A-Vit -) 1 tab PO DAILY [facility] Last Admin: 10/22/16 10:46 Dose: 1 tab Pantoprazole Sodium (Protonix -) 20 mg PO DAILY [facility] Last Admin: 10/22/16 10:46 Dose: 20 mg Prednisone (Deltasone -) 20 mg PO DAILY [facility] Last Admin: 10/22/16 10:46 Dose: 20 mg Rivaroxaban (Xarelto -) 20 mg PO DAILY [facility] Last Admin: 10/22/16 10:46 Dose: 20 mg - Objective Vital Signs: Vital Signs Temperature 98.7 F 10/23/16 06:00 Pulse Rate 70 10/23/16 06:00 Respiratory Rate 13 10/23/16 06:08 Blood Pressure 101/57 10/23/16 06:00 O2 Sat by Pulse Oximetry (%) 98 10/22/16 22:33 Cardiovascular: Yes: S1, S2 Respiratory: Yes: Mechanically Ventilated Gastrointestinal: Yes: Normal Bowel Sounds, Soft Edema: No Labs: CBC, BMP 10/21/16 08:00 10/21/16 08:00 INR, PTT INR 1.31 (0.82-1.09) H 10/19/16 12:55 Assessment/Plan - Problems (1) Pneumonia Assessment/Plan: ID eval broad spectrum abx follow up cultures Code(s): J18.9 - PNEUMONIA, UNSPECIFIED ORGANISM (2) COPD (chronic obstructive pulmonary disease) Assessment/Plan: pulm eval steroids vent support Code(s): J44.9 - CHRONIC OBSTRUCTIVE PULMONARY DISEASE, UNSPECIFIED (3) Chronic respiratory failure Assessment/Plan: vent support Code(s): J96.10 - CHRONIC RESPIRATORY FAILURE, UNSP W HYPOXIA OR HYPERCAPNIA Qualifiers: Respiratory failure complication: hypercapnia Qualified Code(s): J96.12 - Chronic respiratory failure with hypercapnia (4) PAF (paroxysmal atrial fibrillation) Assessment/Plan: xarelto Code(s): I48.0 - PAROXYSMAL ATRIAL FIBRILLATION (5) Anemia Assessment/Plan: ferrous sulfate Code(s): D64.9 - ANEMIA, UNSPECIFIED Qualifiers: Anemia type: iron deficiency
[2016-10-23] MEDS ORDERED: PT OWN MED DRAWER 7, Y5N ONE (10:27)
[2016-10-23] MEDS: RIVAROXABAN 20 MG TABLET PO SCH (10:29)
[2016-10-23] MEDS: ASCORBIC ACID 500 MG TABLET (FP) PO SCH (10:29)
[2016-10-23] MEDS: PANTOPRAZOLE 20 MG TABLET (FP) PO SCH (10:29)
[2016-10-23] MEDS: FERROUS SO4 325 MG TABLET (FP) PO SCH ×2 (10:29→22:17)
[2016-10-23] MEDS: LORATADINE 10 MG TABLET PO SCH (10:29)
[2016-10-23] MEDS: LACTOBACILLUS ACIDOPHILUS 1 EACH TAB (FP) PO SCH (10:29)
[2016-10-23] MEDS: ARTIFICIAL TEARS (POLYVINYL ALCOHOL 1.4%) OPTH DROPS OU SCH (10:29)
[2016-10-23] MEDS: MULTIVITAMINS (DAILY MVI) TABLET (FP) PO SCH (10:29)
[2016-10-23] MEDS: predniSONE 20 MG TABLET (UD) PO SCH (10:29)
[2016-10-23] MEDS: ERTAPENEM SODIUM 1 GM in SODIUM CHLORIDE 50 ML IVPB SCH (10:29)
--- NOTE | 2016-10-23 13:35 | PN ---
Progress Note (short form) - Note Progress Note: nad Vital Signs Period Temp Pulse Resp BP Sys/Vera Pulse Ox Last 24 Hr 98.6 F-99.1 F 70-87 12-18 98-120/54-63 98 trach to vent cor-rrr lungs decreased bs at bases abd soft,nt ext no edema CBC, BMP 10/21/16 08:00 10/21/16 08:00 Microbiology 10/20/16 11:30 Sputum - Endotrachea Suction/Ventilator Gram Stain - Final 10/20/16 11:30 Sputum - Endotrachea Suction/Ventilator Sputum Culture - Final Morganella Morganii Proteus Mirabilus - Esbl Produ 10/19/16 11:30 Blood - Peripheral Venous Blood Culture - Preliminary NO GROWTH OBTAINED AFTER 48 HOURS, INCUBATION TO CONTINUE FOR 3 DAYS. 10/19/16 11:30 Blood - Peripheral Venous Blood Culture - Preliminary NO GROWTH OBTAINED AFTER 48 HOURS, INCUBATION TO CONTINUE FOR 3 DAYS. 10/20/16 15:00 Urine For Antigen Detection Legionella Antigen - Final 10/20/16 15:00 Urine For Antigen Detection Streptococcus pneumoniae Antigen (M - Final 10/19/16 12:55 Urine - Urine Clean Catch Urine Culture - Final Yeast Like Organism Current Medications Albuterol Sulfate (Ventolin 0.083% Nebulizer Soln -) 1 amp NEB Q4H PRN PRN Reason: SHORT OF BREATH/WHEEZING Last Admin: 10/22/16 10:45 Dose: 1 amp Albuterol/Ipratropium (Duoneb -) 1 amp NEB QIDR [facility] Last Admin: 10/23/16 11:36 Dose: 1 amp Artificial Tears (Artificial Tears) 1 drop OU DAILY [facility] Last Admin: 10/23/16 10:29 Dose: 1 drop Ascorbic Acid (Vitamin C -) 500 mg PO DAILY [facility] Last Admin: 10/23/16 10:29 Dose: 500 mg Atorvastatin Calcium (Lipitor -) 10 mg PO HS [facility] Last Admin: 10/22/16 22:42 Dose: 10 mg Docusate Sodium (Colace -) 300 mg PO HS [facility] Last Admin: 10/22/16 22:42 Dose: 300 mg Ferrous Sulfate (Feosol -) 325 mg PO BID [facility] Last Admin: 10/23/16 10:29 Dose: 325 mg Ertapenem 1 gm/ Sodium (Chloride) 50 mls @ 100 mls/hr IVPB DAILY [facility] PRN Reason: Protocol Last Admin: 10/23/16 10:29 Dose: 100 mls/hr Lactobacillus Acidophilus (Bacid -) 1 tab PO DAILY [facility] Last Admin: 10/23/16 10:29 Dose: 1 tab Loratadine (Claritin -) 10 mg PO DAILY [facility] Last Admin: 10/23/16 10:29 Dose: 10 mg Multivitamins/Minerals/Vitamin C (Tab-A-Vit -) 1 tab PO DAILY [facility] Last Admin: 10/23/16 10:29 Dose: 1 tab Pantoprazole Sodium (Protonix -) 20 mg PO DAILY [facility] Last Admin: 10/23/16 10:29 Dose: 20 mg Prednisone (Deltasone -) 20 mg PO DAILY [facility] Last Admin: 10/23/16 10:29 Dose: 20 mg Rivaroxaban (Xarelto -) 20 mg PO DAILY [facility] Last Admin: 10/23/16 10:29 Dose: 20 mg a/p LLL pneumonia chronic resp failure AICD ertapenem day #2 of 7 consider completing antibiotic therapy at [place] contact isolation repeat cbc now Problem List - Problems (1) Pneumonia Code(s): J18.9 - PNEUMONIA, UNSPECIFIED ORGANISM (2) Chronic respiratory failure Code(s): J96.10 - CHRONIC RESPIRATORY FAILURE, UNSP W HYPOXIA OR HYPERCAPNIA Qualifiers: Respiratory failure complication: hypercapnia Qualified Code(s): J96.12 - Chronic respiratory failure with hypercapnia (3) AICD (automatic cardioverter/defibrillator) present Code(s): Z95.810 - PRESENCE OF AUTOMATIC (IMPLANTABLE) CARDIAC DEFIBRILLATOR
--- NOTE | 2016-10-23 14:41 | PN ---
Progress Note, Physician History of Present Illness: PULMONARY ALERT, COMFORTABLE ON VENT SUPPORT AC MODE,-RESP DISTRESS - Current Medication List Current Medications: Active Medications Albuterol Sulfate (Ventolin 0.083% Nebulizer Soln -) 1 amp NEB Q4H PRN PRN Reason: SHORT OF BREATH/WHEEZING Last Admin: 10/22/16 10:45 Dose: 1 amp Albuterol/Ipratropium (Duoneb -) 1 amp NEB QIDR [facility] Last Admin: 10/23/16 11:36 Dose: 1 amp Artificial Tears (Artificial Tears) 1 drop OU DAILY [facility] Last Admin: 10/23/16 10:29 Dose: 1 drop Ascorbic Acid (Vitamin C -) 500 mg PO DAILY [facility] Last Admin: 10/23/16 10:29 Dose: 500 mg Atorvastatin Calcium (Lipitor -) 10 mg PO HS [facility] Last Admin: 10/22/16 22:42 Dose: 10 mg Docusate Sodium (Colace -) 300 mg PO HS [facility] Last Admin: 10/22/16 22:42 Dose: 300 mg Ferrous Sulfate (Feosol -) 325 mg PO BID [facility] Last Admin: 10/23/16 10:29 Dose: 325 mg Ertapenem 1 gm/ Sodium (Chloride) 50 mls @ 100 mls/hr IVPB DAILY [facility] PRN Reason: Protocol Last Admin: 10/23/16 10:29 Dose: 100 mls/hr Lactobacillus Acidophilus (Bacid -) 1 tab PO DAILY [facility] Last Admin: 10/23/16 10:29 Dose: 1 tab Loratadine (Claritin -) 10 mg PO DAILY [facility] Last Admin: 10/23/16 10:29 Dose: 10 mg Multivitamins/Minerals/Vitamin C (Tab-A-Vit -) 1 tab PO DAILY [facility] Last Admin: 10/23/16 10:29 Dose: 1 tab Pantoprazole Sodium (Protonix -) 20 mg PO DAILY [facility] Last Admin: 10/23/16 10:29 Dose: 20 mg Prednisone (Deltasone -) 20 mg PO DAILY [facility] Last Admin: 10/23/16 10:29 Dose: 20 mg Rivaroxaban (Xarelto -) 20 mg PO DAILY [facility] Last Admin: 10/23/16 10:29 Dose: 20 mg - Objective Vital Signs: Vital Signs Temperature 98.7 F 10/23/16 10:00 Pulse Rate 76 10/23/16 10:00 Respiratory Rate 21 10/23/16 14:18 Blood Pressure 98/58 10/23/16 10:00 O2 Sat by Pulse Oximetry (%) 98 10/22/16 22:33 Constitutional: Yes: Calm, Thin Eyes: Yes: WNL HENT: Yes: WNL Neck: Yes: Supple (TRACH) Cardiovascular: Yes: Regular Rate and Rhythm, S1, S2 Respiratory: Yes: Diminished Gastrointestinal: Yes: Normal Bowel Sounds, Soft Extremities: Yes: WNL Edema: No Labs: CBC, BMP 10/21/16 08:00 10/21/16 08:00 INR, PTT INR 1.31 (0.82-1.09) H 10/19/16 12:55 Assessment/Plan Problem List - Problems (1) Anemia Code(s): D64.9 - ANEMIA, UNSPECIFIED Qualifiers: Anemia type: iron deficiency (2) Pneumonia Code(s): J18.9 - PNEUMONIA, UNSPECIFIED ORGANISM (3) Acute and chronic respiratory failure with hypercapnia Code(s): J96.22 - ACUTE AND CHRONIC RESPIRATORY FAILURE WITH HYPERCAPNIA (4) COPD (chronic obstructive pulmonary disease) Code(s): J44.9 - CHRONIC OBSTRUCTIVE PULMONARY DISEASE, UNSPECIFIED Assessment/Plan ABX Per ID Current vent settings FIO2 .4 VT450 RR12 PEEP [address] [place] [address] CABRERA
[2016-10-23 15:59] LABS: MCH 27.5 pg (25.7-33.7); MCHC 32.4 g/dl (32.0-36.0); MEAN PLT VOLUME 8.3 fl (7.5-11.1); PLATELET COUNT 250 K/MM3 (134-434); RDW 16.8 % (11.6-15.6); WHITE BLOOD COUNT 8.6 K/mm3 (4.0-10.0)
[2016-10-23] MEDS: DOCUSATE SODIUM 100 MG CAPSULE (FP) PO SCH (22:17)
[2016-10-23] MEDS: ATORVASTATIN CA 10 MG TABLET (FP) PO SCH (22:17)
[2016-10-24] MEDS: ALBUTEROL SO4 2.5/IPRATROPIUM 0.5 INH SOL 3 ML VIAL.NEB. NEB SCH ×2 (05:12→11:30)
--- NOTE | 2016-10-24 08:15 | DS ---
Physical Examination Vital Signs: Vital Signs Temperature 97.2 F L 10/23/16 23:00 Pulse Rate 73 10/24/16 01:42 Respiratory Rate 12 10/24/16 07:16 Blood Pressure 90/50 10/23/16 23:00 O2 Sat by Pulse Oximetry (%) 98 10/24/16 01:42 Labs: CBC, BMP 10/23/16 15:15 10/21/16 08:00 Discharge Summary Reason For Visit: PNEUMONIA Current Active Problems Anemia (Acute) Dehydration (Acute) Pneumonia (Acute) Hospital Course: - Problems (1) Pneumonia Assessment/Plan: ID eval LLL pneumonia chronic resp failure ertapenem day #2 of 7 consider completing antibiotic therapy at [place] contact isolation Microbiology 10/19/16 11:30 Blood Culture - Preliminary Blood - Peripheral Venous NO GROWTH OBTAINED AFTER 96 HOURS, INCUBATION TO CONTINUE FOR 1 DAYS. 10/19/16 11:30 Blood Culture - Preliminary Blood - Peripheral Venous NO GROWTH OBTAINED AFTER 96 HOURS, INCUBATION TO CONTINUE FOR 1 DAYS. Code(s): J18.9 - PNEUMONIA, UNSPECIFIED ORGANISM (2) COPD (chronic obstructive pulmonary disease) Assessment/Plan: pulm eval steroids vent support Code(s): J44.9 - CHRONIC OBSTRUCTIVE PULMONARY DISEASE, UNSPECIFIED (3) Chronic respiratory failure Assessment/Plan: vent support Code(s): J96.10 - CHRONIC RESPIRATORY FAILURE, UNSP W HYPOXIA OR HYPERCAPNIA Qualifiers: Respiratory failure complication: hypercapnia Qualified Code(s): J96.12 - Chronic respiratory failure with hypercapnia (4) PAF (paroxysmal atrial fibrillation) Assessment/Plan: xarelto Code(s): I48.0 - PAROXYSMAL ATRIAL FIBRILLATION (5) Anemia Assessment/Plan: ferrous sulfate Code(s): D64.9 - ANEMIA, UNSPECIFIED Qualifiers: Anemia type: iron deficiency Condition: Improved - Instructions Referrals: Jacky Cook MD [Primary Care Provider] - Disposition: NURSING HOME FACILITY - Home Medications Comprehensive Discharge Medication List: Ambulatory Orders Acetaminophen [Tylenol] 650 mg PO QID 10/19/16 Ascorbic Acid [Vitamin C -] 500 mg PO DAILY 10/19/16 Clonazepam [Klonopin -] 0.5 mg PO BID 10/19/16 Docusate Sodium 300 mg PO HS 10/19/16 Ferrous Sulfate 325 mg PO BID 10/19/16 Hypromellose 0.5% Opth Soln [Artificial Tears] 1 drop DAILY 10/19/16 Loratadine 10 mg PO DAILY 10/19/16 Multivitamin [Poly-Vitamin] 1 each PO DAILY 10/19/16 Omeprazole 20 mg PO DAILY 10/19/16 Prednisone [Deltasone -] 20 mg PO DAILY 10/19/16 Rivaroxaban [Xarelto -] 20 mg PO DAILY 10/19/16 Simvastatin [Zocor -] 20 mg PO HS 10/19/16 Albuterol 2.5/Ipratropium 0.5 [Duoneb -] 1 amp NEB QIDR amp 10/24/16 Ertapenem Sodium [Invanz -] 1 gm IVPB DAILY vial 10/24/16 Lactobacillus Acidophilus [Bacid -] 1 tab PO DAILY tab 10/24/16
[2016-10-24] MEDS: predniSONE 20 MG TABLET (UD) PO SCH (10:08)
[2016-10-24] MEDS: ERTAPENEM SODIUM 1 GM in SODIUM CHLORIDE 50 ML IVPB SCH (10:08)
[2016-10-24] MEDS: ARTIFICIAL TEARS (POLYVINYL ALCOHOL 1.4%) OPTH DROPS OU SCH (10:08)
[2016-10-24] MEDS: MULTIVITAMINS (DAILY MVI) TABLET (FP) PO SCH (10:09)
[2016-10-24] MEDS: RIVAROXABAN 20 MG TABLET PO SCH (10:09)
[2016-10-24] MEDS: ASCORBIC ACID 500 MG TABLET (FP) PO SCH (10:09)
[2016-10-24] MEDS: FERROUS SO4 325 MG TABLET (FP) PO SCH (10:09)
[2016-10-24] MEDS: LACTOBACILLUS ACIDOPHILUS 1 EACH TAB (FP) PO SCH (10:09)
[2016-10-24] MEDS: LORATADINE 10 MG TABLET PO SCH (10:09)
[2016-10-24] MEDS: PANTOPRAZOLE 20 MG TABLET (FP) PO SCH (10:09)
[2016-10-24 11:13] VITALS: PULSE 79
--- NOTE | 2016-10-24 12:20 | PN ---
Progress Note, ENTRY LEVEL ACCOUNTING CLERK - Note Progress Note: Pending d/c today to snf. Now on mech soft and nectar, previously on thin. Consider opd MBS to upgrade diet, per SNF sp path, when appropriate. Reviewed with ccc for review with NH.
[2016-10-24 12:45] VITALS: BP 113/70; TEMP 98.5
== END 2016-10-24 12:40 | DRG 207 ==
LOC: JER 12:37 → JERBED 15:27 → J5S 21:24
PROVIDERS: ADMIT Family Medicine; ATTEND Family Medicine
PROC: 5A1955Z Respiratory Ventilation, Greater than 96 Consecutive Hours (ICD-10-PCS; principal; 2016-10-19)
DX: J44.0 Chronic obstructive pulmonary disease with (acute) lower respiratory infection (principal); J18.9 Pneumonia, unspecified organism; Z99.11 Dependence on respirator [ventilator] status; J96.12 Chronic respiratory failure with hypercapnia; I48.91 Unspecified atrial fibrillation; E78.5 Hyperlipidemia, unspecified; J44.9 Chronic obstructive pulmonary disease, unspecified; Z93.0 Tracheostomy status; I11.0 Hypertensive heart disease with heart failure; I50.9 Heart failure, unspecified; I48.0 Paroxysmal atrial fibrillation; Z95.810 Presence of automatic (implantable) cardiac defibrillator; E86.0 Dehydration; D50.9 Iron deficiency anemia, unspecified
CPT/HCPCS: 36415; 71010-TC; 80053; 81003; 81015; 82272; 82550; 82803; 83605; 83880; 84484; 85025; 85027; 85610; 85730; 86850; 86900; 86901; 87040; 87070; 87086; 87186; 87205; 87899; 93005; 93010; 94002; 94640; 99285-25

== ENCOUNTER 2017-01-08 00:27 | Inpatient (IN) | payer OTHER ==
--- NOTE | 2017-01-08 01:03 | PDOC ---
History of Present Illness - History of Present Illness Initial Comments: 01/08/17 03:14 The patient is a 81 year old female, with a significant past medical history of Afib, CHF, cardiac arrest 1998, COPD, ventilatory failure s/p trach, vent dependent, UTIs and GI bleed, who presents to the emergency department via ems from [facility] with black tarry stools and fever today. The patient is afebrile in the ED. She is non-verbal on the vent, however, is able to respond via hand gestures and head nodding. Allergies: doxycycline Pulmonologists - Dr. Verduzco <Apolonia Slade - Last Filed: 01/08/17 03:14> <Ninfa Acuña - Last Filed: 01/08/17 06:28> - General Chief Complaint: Rectal Bleed Stated Complaint: GI BLEED Time Seen by Provider: 01/08/17 00:59 Past History <Apolonia Slade - Last Filed: 01/08/17 03:14> - Past Medical History Anemia: Yes Asthma: No Cancer: No Cardiac Disorders: Yes (CARDIAC ARREST 1998, afib) CVA: No COPD: Yes CHF: No Dementia: Yes (SHORT TERM MEMORY LOSS) Diabetes: No GI Disorders: No Disorders: No HTN: Yes Hypercholesterolemia: Yes Liver Disease: No Seizures: No Thyroid Disease: No - Surgical History Abdominal Surgery: No Appendectomy: No Cardiac Surgery: Yes (DEFIBRILLATOR) Cholecystectomy: No Lung Surgery: No Neurologic Surgery: No Orthopedic Surgery: No - Immunization History Immunization Up to Date: Yes - Psycho/Social/Smoking Cessation Hx Anxiety: No Suicidal Ideation: No Smoking History: Never smoked Have you smoked in the past 12 months: No Number of Cigarettes Smoked Daily: 0 Cigars Per Day: 0 Information on smoking cessation initiated: No Hx Alcohol Use: No Drug/Substance Use Hx: No Substance Use Type: None <Ninfa Acuña - Last Filed: 01/08/17 06:28> - Past Medical History Allergies/Adverse Reactions: Allergies Allergy/AdvReac Type Severity Reaction Status Date / Time doxycycline Allergy Intermediate Verified 01/08/17 00:59 CLAMS Allergy Intermediate Hives Uncoded 01/08/17 00:59 Home Medications: Ambulatory Orders Acetaminophen [Tylenol] 650 mg PO QID 10/19/16 Ascorbic Acid [Vitamin C -] 500 mg PO DAILY 10/19/16 Clonazepam [Klonopin -] 0.5 mg PO BID 10/19/16 Docusate Sodium 300 mg PO HS 10/19/16 Ferrous Sulfate 325 mg PO BID 10/19/16 Hypromellose 0.5% Opth Soln [Artificial Tears] 1 drop DAILY 10/19/16 Loratadine 10 mg PO DAILY 10/19/16 Multivitamin [Poly-Vitamin] 1 each PO DAILY 10/19/16 Omeprazole 20 mg PO DAILY 10/19/16 Prednisone [Deltasone -] 20 mg PO DAILY 10/19/16 Rivaroxaban [Xarelto -] 20 mg PO DAILY 10/19/16 Simvastatin [Zocor -] 20 mg PO HS 10/19/16 Albuterol 2.5/Ipratropium 0.5 [Duoneb -] 1 amp NEB QIDR amp 10/24/16 Ertapenem Sodium [Invanz -] 1 gm IVPB DAILY vial 10/24/16 Lactobacillus Acidophilus [Bacid -] 1 tab PO DAILY tab 10/24/16 Review of Systems - Review of Systems Able to Perform ROS?: No <Apolonia Slade - Last Filed: 01/08/17 03:14> *Physical Exam - Vital Signs Last Vital Signs Temp Pulse Resp BP Pulse Ox 98.9 F 104 H 14 122/95 99 01/08/17 01:05 01/08/17 01:00 01/08/17 01:00 01/08/17 01:00 01/08/17 01:00 - Physical Exam Comments: 01/08/17 03:15 GENERAL: (+) nonverbal on rebreather, somnolent but arousable. Cachectic. in no acute distress HEAD: No signs of trauma EYES: PERRLA, EOMI, sclera anicteric, conjunctiva clear ENT: Auricles normal inspection, hearing grossly normal, nares patent, oropharynx clear without exudates. Moist mucosa NECK: Normal ROM, supple, no lymphadenopathy, JVD, or masses LUNGS: Breath sounds equal, clear to auscultation bilaterally. No wheezes, and no crackles HEART: Regular rate and rhythm, normal S1 and S2, no murmurs, rubs or gallops ABDOMEN: (+) gassy sounds. Soft, nontender, normoactive bowel sounds. No guarding, no rebound. No masses EXTREMITIES: Normal range of motion, no edema. No clubbing or cyanosis. No cords, erythema, or tenderness NEUROLOGICAL: Cranial nerves II through XII grossly intact. Normal speech, normal gait SKIN: (+) open wound on right lower extremity at distal medial aspect, Multiple hematomas on bilateral forearms. Warm, Dry, normal turgor, no rashesnoted. <Apolonia Slade - Last Filed: 01/08/17 03:14> - Vital Signs Last Vital Signs Temp Pulse Resp BP Pulse Ox 104 H 14 122/95 99 01/08/17 01:00 01/08/17 01:00 01/08/17 01:00 01/08/17 01:00 <Ninfa Acuña - Last Filed: 01/08/17 06:28> ED Treatment Course - LABORATORY CBC & Chemistry Diagram: 01/08/17 01:27 01/08/17 01:27 - ADDITIONAL ORDERS Additional order review: Laboratory Results 01/08/17 01/08/17 01/08/17 02:37 02:00 01:27 INR Sodium 143 Potassium 4.1 Chloride 102 Carbon Dioxide 32 Anion Gap 9 BUN 31 H D Creatinine 0.6 Creat Clearance w eGFR > 60 Random Glucose 93 Lactic Acid 2.3 H* Calcium 8.7 Total Bilirubin 0.4 AST 18 D ALT 18 Alkaline Phosphatase 60 D Total Protein 6.6 Albumin 3.1 L D Stool Occult Blood Negative 01/08/17 01:27 INR 1.65 H Sodium Potassium Chloride Carbon Dioxide Anion Gap BUN Creatinine Creat Clearance w eGFR Random Glucose Lactic Acid Calcium Total Bilirubin AST ALT Alkaline Phosphatase Total Protein Albumin Stool Occult Blood 01/08/17 01:27 RBC 4.59 D MCV 83.5 MCHC 31.1 L RDW 16.9 H MPV 8.7 Neutrophils % 81.5 Lymphocytes % 9.2 Monocytes % 6.7 Eosinophils % 2.0 Basophils % 0.6 - RADIOLOGY Radiograph Interpretation: 01/08/17 03:12 Exam: AP portable chest was read by Harjinder Fuller M.D. 01/08/2017 03:09 EST Images: Clinical indication: Rectal bleed. Leukocytosis. Findings: Tracheostomy tube noted. AICD noted. Stent graft in the aortic root. There is a small to moderate left pleural effusion. No consolidations are seen. Limited exam due to rotation to the left. The aorta is atherosclerotic and calcified. Limited evaluation of the cardiac silhouette. No lytic or blastic destructive osseous lesions are seen. Impression: Limited rotated exam. Probable small to moderate left effusion. No consolidations seen. <Apolonia Slade - Last Filed: 01/08/17 03:14> - LABORATORY CBC & Chemistry Diagram: 01/08/17 01:27 01/08/17 01:27 <Ninfa Acuña - Last Filed: 01/08/17 06:28> Medical Decision Making - Medical Decision Making 01/08/17 03:13 Patient Name: Roopa Raygoza This is a preliminary report by imaging ammunition officer Exam: AP portable chest Images: Clinical indication: Rectal bleed. Leukocytosis. Findings: Tracheostomy tube noted. AICD noted. Stent graft in the aortic root. There is a small to moderate left pleural effusion. No consolidations are seen. Limited exam due to rotation to the left. The aorta is atherosclerotic and calcified. Limited evaluation of the cardiac silhouette. No lytic or blastic destructive osseous lesions are seen. Impression: Limited rotated exam. Probable small to moderate left effusion. No consolidations seen. THIS DOCUMENT HAS BEEN ELECTRONICALLY SIGNED 01/08/17 06:20 Pt sent to the ER for black stools; r/o bleed. Guaiac done by pr is negative. No blood. Hb/HCT normal. Pt does have sepsis and elevated WBC and lactic acid however. She will be admitted to Dr. Cook's service. His GIN FEEDER Shahab Lepe is aware of the admission. <Ninfa Acuña - Last Filed: 01/08/17 06:28> *DC/Admit/Observation/Transfer - Attestations Scribe Attestion: 01/08/17 03:17 Documentation prepared by Apolonia Slade, acting as medical communication specialist for Ninfa Acuña MD <Apolonia Slade - Last Filed: 01/08/17 03:14> - Discharge Dispostion Admit: Yes <Ninfa Acuña - Last Filed: 01/08/17 06:28> Diagnosis at time of Disposition: UTI (urinary tract infection), Sepsis, Altered mental status - Discharge Dispostion Condition at time of disposition: Guarded
[2017-01-08 01:38] LABS: BASOPHIL 0.6 % (0-2.0); MCH 25.9 pg (25.7-33.7); MCHC 31.1 g/dl (32.0-36.0); MEAN CELL VOLUME 83.5 fl (80-96); MEAN PLT VOLUME 8.7 fl (7.5-11.1); NEUTROPHILS 81.5 % (42.8-82.8); PLATELET COUNT 192 K/MM3 (134-434); RDW 16.9 % (11.6-15.6); WHITE BLOOD COUNT 18.7 K/mm3 (4.0-10.0)
[2017-01-08 01:50] LABS: INR 1.65 (0.82-1.09); PROTHROMBIN TIME (PATIENT) 18.3 SEC (9.98-11.88)
[2017-01-08 02:01] LABS: ALBUMIN 3.1 g/dl (3.4-5.0); ALK PHOS 60 U/L (45-117); ANION GAP 9 (8-16); BILIRUBIN,TOTAL 0.4 mg/dL (0.2-1.0); CALCIUM 8.7 mg/dL (8.5-10.1); CO2 32 mmol/L (21-32); CREATININE 0.6 mg/dL (0.55-1.02); GLUCOSE,RANDOM 93 mg/dL (74-106); SGOT/AST 18 U/L (15-37); SGPT/ALT 18 U/L (12-78); TOT PROT 6.6 g/dl (6.4-8.2)
[2017-01-08] MEDS ORDERED: LEVOFLOXACIN 500 MG IVPB 100 ML IVPB ONE ×2 (03:05→03:53)
[2017-01-08 04:20] LABS: URINE APPEARANCE CLOUDY; URINE BILIRUBIN NEGATIVE (NEGATIVE); URINE GLUCOSE (UA) NEGATIVE (NEGATIVE); URINE KETONE 1+ (NEGATIVE); URINE NITRITE NEGATIVE (NEGATIVE); URINE UROBILINOGEN NEGATIVE E.U./dl (0.2-1.0)
[2017-01-08 04:29] LABS: URINE BLOOD 3+ (NEGATIVE); URINE COLOR BROWN; URINE LEUK ESTERASE TRACE (NEGATIVE); URINE PROTEIN 2+ (NEGATIVE)
[2017-01-08 04:31] LABS: URINE BACTERIA MANY /hpf (NONE SEEN); URINE RBC 3549 /hpf (0-3); URINE WBC 772 /hpf (3-5)
--- NOTE | 2017-01-08 09:35 | HP ---
Admitting History and Physical - Admission History of Present Illness: 81 year old female, with a significant past medical history of Afib, CHF, cardiac arrest 1998, COPD, ventilatory failure s/p trach, vent dependent, UTIs and GI bleed, who presents to the emergency department via ems from [facility] with black tarry stools and fever today. The patient is afebrile in the ED. She is non-verbal on the vent, however, is able to respond via hand gestures and head nodding. - Past Medical History Cardiovascular: Yes: AFIB (Paroxysmal), CHF, HTN, Hyperlipdemia, Other (h/o cardiac arrest s/p AICD - Single lead) Pulmonary: Yes: COPD, Other (respiratory failure) Gastrointestinal: Yes: GERD Heme/Onc: Yes: Anemia - Past Surgical History Past Surgical History: Yes: AICD (Medtronic, implanted following cardiac arrest) , Cataract Removal (2011) - Smoking History Smoking history: Never smoked Have you smoked in the past 12 months: No Aproximately how many cigarettes per day: 0 - Alcohol/Substance Use Hx Alcohol Use: No - Social History History of Recent Travel: No Home Medications - Allergies Allergies/Adverse Reactions: Allergies Allergy/AdvReac Type Severity Reaction Status Date / Time doxycycline Allergy Intermediate Verified 01/08/17 00:59 CLAMS Allergy Intermediate Hives Uncoded 01/08/17 00:59 - Home Medications Home Medications: Ambulatory Orders Acetaminophen [Tylenol] 650 mg PO Q4H PRN 10/19/16 Ascorbic Acid [Vitamin C -] 500 mg PO DAILY 10/19/16 Docusate Sodium 300 mg PO HS 10/19/16 Ferrous Sulfate 325 mg PO BID 10/19/16 Hypromellose 0.5% Opth Soln [Artificial Tears] 1 drop OU BID 10/19/16 Loratadine 10 mg PO DAILY 10/19/16 Multivitamin [Poly-Vitamin] 1 each PO DAILY 10/19/16 Omeprazole 20 mg PO DAILY 10/19/16 Prednisone [Deltasone -] 20 mg PO DAILY 10/19/16 Rivaroxaban [Xarelto -] 20 mg PO DAILY 10/19/16 Simvastatin [Zocor -] 20 mg PO HS 10/19/16 Albuterol 2.5/Ipratropium 0.5 [Duoneb -] 1 amp NEB QIDR amp 10/24/16 Lactobacillus Acidophilus [Bacid -] 1 tab PO DAILY tab 10/24/16 Aa/Hydrolyzed Collagen, Whey [Lps 15-30 Liquid] 30 ml PO BID 01/08/17 Bacitracin - [Bacitracin Topical Ointment -] 1 applic TP TID 01/08/17 Ipratropium 0.02% Nebulizer [Atrovent *Nebulizer*] 0.5 mg IH Q6H 01/08/17 Mirtazapine [Remeron -] 15 mg PO HS 01/08/17 Review of Systems - Review of Systems Cardiovascular: denies: Chest Pain Respiratory: reports: Other (ON VENT) Gastrointestinal: denies: Abdominal Pain Genitourinary: reports: No Symptoms Physical Examination Vital Signs: Vital Signs Temperature 98.9 F 01/08/17 01:05 Pulse Rate 113 H 01/08/17 08:50 Respiratory Rate 15 01/08/17 08:45 Blood Pressure 122/95 01/08/17 01:00 O2 Sat by Pulse Oximetry (%) 97 01/08/17 08:50 Cardiovascular: Yes: Murmur, S1, S2 Respiratory: Yes: Mechanically Ventilated Gastrointestinal: Yes: Normal Bowel Sounds, Soft. No: Tenderness Edema: No Problem List - Problems (1) UGIB (upper gastrointestinal bleed) Assessment/Plan: MAYBE DUE TO IRON--R/O BLEED--HEM POS FOLLOW LABS PPI GI CONSULT Code(s): K92.2 - GASTROINTESTINAL HEMORRHAGE, UNSPECIFIED (2) PAF (paroxysmal atrial fibrillation) Assessment/Plan: HOLD AC--POSSIBLE GI BLEED CARDIO Code(s): I48.0 - PAROXYSMAL ATRIAL FIBRILLATION (3) Chronic respiratory failure Assessment/Plan: PULM CONSULT Code(s): J96.10 - CHRONIC RESPIRATORY FAILURE, UNSP W HYPOXIA OR HYPERCAPNIA Qualifiers: Respiratory failure complication: hypercapnia Qualified Code(s): J96.12 - Chronic respiratory failure with hypercapnia
[2017-01-08] MEDS ORDERED: MULTIVITAMINS (DAILY MVI) TABLET (FP) PO SCH (10:00)
[2017-01-08] MEDS ORDERED: PANTOPRAZOLE 20 MG TABLET (FP) PO SCH (10:00)
[2017-01-08 11:35] LABS: MCH 26.2 pg (25.7-33.7); MCHC 31.3 g/dl (32.0-36.0); MEAN CELL VOLUME 83.7 fl (80-96); MEAN PLT VOLUME 8.7 fl (7.5-11.1); PLATELET COUNT 196 K/MM3 (134-434); RDW 16.9 % (11.6-15.6); WHITE BLOOD COUNT 18.2 K/mm3 (4.0-10.0)
[2017-01-08] MEDS: FERROUS SO4 325 MG TABLET (FP) PO SCH ×2 (11:35→23:10)
[2017-01-08] MEDS: LORATADINE 10 MG TABLET PO SCH (11:35)
[2017-01-08] MEDS: ASCORBIC ACID 500 MG TABLET (FP) PO SCH (11:36)
[2017-01-08] MEDS: PANTOPRAZOLE SODIUM 100 ML IVPB SCH ×2 (11:36→23:13)
[2017-01-08] MEDS: MULTIVITAMINS (DAILY MVI) TABLET (FP) PO SCH (11:36)
[2017-01-08] MEDS: AMINO ACIDS/PROTEIN HYDROLYS 30 ML LIQUID.PKT PO SCH ×2 (11:36→23:10)
[2017-01-08] MEDS: ARTIFICIAL TEARS (POLYVINYL ALCOHOL 1.4%) OPTH DROPS OU PRN (11:37)
[2017-01-08] MEDS: LACTOBACILLUS ACIDOPHILUS 1 EACH TAB (FP) PO SCH (11:37)
[2017-01-08 11:49] LABS: INR 1.3 (0.82-1.09); PROTHROMBIN TIME (PATIENT) 14.4 SEC (9.98-11.88)
[2017-01-08 12:05] LABS: TROPONIN I < 0.02 ng/ml (0.00-0.05)
[2017-01-08] MEDS ORDERED: ALBUTEROL SO4 2.5/IPRATROPIUM 0.5 INH SOL 3 ML VIAL.NEB. NEB ONE (12:31)
[2017-01-08] MEDS: ALBUTEROL SO4 2.5/IPRATROPIUM 0.5 INH SOL 3 ML VIAL.NEB. NEB SCH ×2 (12:40→17:45)
--- NOTE | 2017-01-08 14:17 | EKG ---
Test Reason : Blood Pressure : / mmHG Vent. Rate : 113 BPM Atrial Rate : 113 BPM P-R Int : 126 ms QRS Dur : 074 ms QT Int : 324 ms P-R-T Axes : 000 -61 018 degrees QTc Int : 444 ms SINUS TACHYCARDIA WITH PREMATURE ATRIAL COMPLEXES LEFT AXIS DEVIATION INFERIOR INFARCT , AGE UNDETERMINED ANTERIOR INFARCT (CITED ON OR BEFORE 15-APR-2016) ABNORMAL ECG WHEN COMPARED WITH ECG OF 19-OCT-2016 13:11, PREMATURE VENTRICULAR COMPLEXES ARE NO LONGER PRESENT PREMATURE ATRIAL COMPLEXES ARE NOW PRESENT Confirmed by NIKHIL LINN MD ([id number]) on 01/08/2017 2:17:17 PM Referred By: Confirmed By:NIKHIL LINN MD
[2017-01-08] MEDS: BACITRACIN 15 GM TUBE TOPICAL OINTMENT TP SCH ×2 (14:32→22:16)
--- NOTE | 2017-01-08 15:19 | CON.CARD ---
Consult Consult Specialty:: Cardiology Reason for Consultation:: Tachycardia, On AC and may have GIB - History of Present Illness Chief Complaint: Tachycardia History of Present Illness: This is an 81 year old female with a PMH of PAfib, HLD, CHF, cardiac arrest 1998 , s/p Medtronic AICD - Single lead, COPD, ventilatory failure s/p trach, and is vent dependent. There is a history of UTIs and GI bleeds in the past. She presents to the ED from [facility] with black tarry stools and fevers. The patient is non-verbal on the vent, however, is able to respond via hand gestures and head nodding. EKG Sinus tachycardia at 114 BPM with LAD, inferior Q-waves, and NSSTTW changes. - Past Medical History Cardio/Vascular: Yes: AFIB (Paroxysmal), CHF, HTN, Hyperlipdemia, Other (h/o cardiac arrest s/p AICD - Single lead) Pulmonary: Yes: COPD, Other (respiratory failure) Gastrointestinal: Yes: GERD - Past Surgical History Past Surgical History: Yes: AICD (Medtronic, implanted following cardiac arrest) , Cataract Removal (2011) - Alcohol/Substance Use Hx Alcohol Use: No - Smoking History Smoking history: Never smoked Have you smoked in the past 12 months: No Aproximately how many cigarettes per day: 0 - Social History Usual Living Arrangement: Retirement History of Recent Travel: No Home Medications - Allergies Allergies/Adverse Reactions: Allergies Allergy/AdvReac Type Severity Reaction Status Date / Time doxycycline Allergy Intermediate Verified 01/08/17 00:59 CLAMS Allergy Intermediate Hives Uncoded 01/08/17 00:59 - Home Medications Home Medications: Ambulatory Orders Acetaminophen [Tylenol] 650 mg PO Q4H PRN 10/19/16 Ascorbic Acid [Vitamin C -] 500 mg PO DAILY 10/19/16 Docusate Sodium 300 mg PO HS 10/19/16 Ferrous Sulfate 325 mg PO BID 10/19/16 Hypromellose 0.5% Opth Soln [Artificial Tears] 1 drop OU BID 10/19/16 Loratadine 10 mg PO DAILY 10/19/16 Multivitamin [Poly-Vitamin] 1 each PO DAILY 10/19/16 Omeprazole 20 mg PO DAILY 10/19/16 Prednisone [Deltasone -] 20 mg PO DAILY 10/19/16 Rivaroxaban [Xarelto -] 20 mg PO DAILY 10/19/16 Simvastatin [Zocor -] 20 mg PO HS 10/19/16 Albuterol 2.5/Ipratropium 0.5 [Duoneb -] 1 amp NEB QIDR amp 10/24/16 Lactobacillus Acidophilus [Bacid -] 1 tab PO DAILY tab 10/24/16 Aa/Hydrolyzed Collagen, Whey [Lps 15-30 Liquid] 30 ml PO BID 01/08/17 Bacitracin - [Bacitracin Topical Ointment -] 1 applic TP TID 01/08/17 Ipratropium 0.02% Nebulizer [Atrovent *Nebulizer*] 0.5 mg IH Q6H 01/08/17 Mirtazapine [Remeron -] 15 mg PO HS 01/08/17 Review of Systems Unable to obtain ROS, reason: As per HPI Vital Signs: Vital Signs Temperature 98.9 F 01/08/17 01:05 Pulse Rate 113 H 01/08/17 08:50 Respiratory Rate 14 01/08/17 14:19 Blood Pressure 122/95 01/08/17 01:00 O2 Sat by Pulse Oximetry (%) 97 01/08/17 08:50 Constitutional: Yes: Other (Trach/Vent Non Verbal No acute distress Lungs - Course vent sounds Cor - Tachy, RRR, NL S1S2, No MRHG Ab - Soft Ex - No edema) - Other Data Labs, Other Data: CBC, BMP 01/08/17 11:30 INR, PTT INR 1.30 (0.82-1.09) H 01/08/17 11:30 Troponin, BNP 01/08/17 11:30 Troponin I < 0.02 B-Natriuretic Peptide 889.61 H Troponin, BNP 01/08/17 11:30 Troponin I < 0.02 B-Natriuretic Peptide 889.61 H Assessment/Plan Paroxsysmal AFIB: Presently in sinus tacycardia. Would hold Rivaroxaban (Xarelto) for now, until GI bleeding can be ruled out. Sinus Tachycardia is secondary and therefore would not add a beta marian at this time. Daily EKG's to watch for AFIB. Will follow with you.
--- NOTE | 2017-01-08 16:27 | PN ---
Progress Note (short form) - Note Progress Note: PULMONARY CONSULTATION DICTATED 01/08/17 IMP CHRONIC RESPIRATORY FAILURE ON VENTILATORY SUPPORT ADVANCED COPD ASHD AFIB S/P CARDIAC ARREST S/P AICD ELEVATED LACTATE LEVEL ACUTE KIDNEY INJURY R/O GI BLEED R/O INFECTIOUS PROCESS HTN HLD PLAN VENT SUPPORT ON AC MODE INHALED BRONCHODILATORS IVF ANTIBIOTICS TREND LACTATE GI EVALUATION MONITOR H+H,WBC,LYTES,RENAL FUNCTION DR CABRERA Problem List - Problems (1) Dehydration Code(s): E86.0 - DEHYDRATION (2) AICD (automatic cardioverter/defibrillator) present Code(s): Z95.810 - PRESENCE OF AUTOMATIC (IMPLANTABLE) CARDIAC DEFIBRILLATOR (3) COPD (chronic obstructive pulmonary disease) Code(s): J44.9 - CHRONIC OBSTRUCTIVE PULMONARY DISEASE, UNSPECIFIED (4) Chronic respiratory failure Code(s): J96.10 - CHRONIC RESPIRATORY FAILURE, UNSP W HYPOXIA OR HYPERCAPNIA Qualifiers: Respiratory failure complication: hypercapnia Qualified Code(s): J96.12 - Chronic respiratory failure with hypercapnia (5) HTN (hypertension) Code(s): I10 - ESSENTIAL (PRIMARY) HYPERTENSION (6) PAF (paroxysmal atrial fibrillation) Code(s): I48.0 - PAROXYSMAL ATRIAL FIBRILLATION (7) Respirator dependence Code(s): Z99.11 - DEPENDENCE ON RESPIRATOR [VENTILATOR] STATUS (8) Lactate blood increase Code(s): R79.89 - OTHER SPECIFIED ABNORMAL FINDINGS OF BLOOD CHEMISTRY (9) Acute kidney injury Code(s): N17.9 - ACUTE KIDNEY FAILURE, UNSPECIFIED (10) Hyperlipemia Code(s): E78.5 - HYPERLIPIDEMIA, UNSPECIFIED
[2017-01-08] MEDS: ACETAMINOPHEN 325 MG TABLET (FP) PO PRN (17:44)
[2017-01-08] MEDS ORDERED: ACETAMINOPHEN 325 MG TABLET (FP) ONE (17:46)
[2017-01-08] MEDS ORDERED: SODIUM CHLORIDE 250 ML IV STA (19:42)
[2017-01-08] MEDS ORDERED: VANCOMYCIN 1,250 MG in DEXTROSE 5%-WATER - 250 ML IVPB ONE (20:00)
[2017-01-08] MEDS ORDERED: CEFEPIME 1 GM/100 ML BAG PRE-DOCKED IVPB ONE (20:00)
--- NOTE | 2017-01-08 20:20 | CON.GI ---
Consult Consult Specialty:: GI Referred by:: Dr Cook Reason for Consultation:: melena - History of Present Illness Chief Complaint: Patient is intubated and not responsive to verbal stimulation History of Present Illness: 82 F with PMH of PAF, HLD, CHF, cardiac arrest 1998, AICD, COPD, s/p trach, and is vent dependent. There is a history of UTIs and GI bleeds in the past. She presents to the ED from [facility] with black tarry stools and fevers. The patient is non-verbal. She has a Hgb of 12 and is on Fe supplements at [facility]. She is also on AC. She has a BP of 74/52 and is febrile. She has received a dose of AbRx earlier. UA consistent with UTI with 3+ blood and many bacteria. 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 Cardio/Vascular: Yes: AFIB (Paroxysmal), CHF, HTN, Hyperlipdemia, Other (h/o cardiac arrest s/p AICD - Single lead) Pulmonary: Yes: COPD, Other (respiratory failure) Gastrointestinal: Yes: GERD - Past Surgical History Past Surgical History: Yes: AICD (Medtronic, implanted following cardiac arrest) , Cataract Removal (2011) - Alcohol/Substance Use Hx Alcohol Use: No - Smoking History Smoking history: Never smoked Have you smoked in the past 12 months: No Aproximately how many cigarettes per day: 0 - Social History Usual Living Arrangement: Residential History of Recent Travel: No Home Medications - Allergies Allergies/Adverse Reactions: Allergies Allergy/AdvReac Type Severity Reaction Status Date / Time doxycycline Allergy Intermediate Verified 01/08/17 00:59 CLAMS Allergy Intermediate Hives Uncoded 01/08/17 00:59 - Home Medications Home Medications: Ambulatory Orders Acetaminophen [Tylenol] 650 mg PO Q4H PRN 10/19/16 Ascorbic Acid [Vitamin C -] 500 mg PO DAILY 10/19/16 Docusate Sodium 300 mg PO HS 10/19/16 Ferrous Sulfate 325 mg PO BID 10/19/16 Hypromellose 0.5% Opth Soln [Artificial Tears] 1 drop OU BID 10/19/16 Loratadine 10 mg PO DAILY 10/19/16 Multivitamin [Poly-Vitamin] 1 each PO DAILY 10/19/16 Omeprazole 20 mg PO DAILY 10/19/16 Prednisone [Deltasone -] 20 mg PO DAILY 10/19/16 Rivaroxaban [Xarelto -] 20 mg PO DAILY 10/19/16 Simvastatin [Zocor -] 20 mg PO HS 10/19/16 Albuterol 2.5/Ipratropium 0.5 [Duoneb -] 1 amp NEB QIDR amp 10/24/16 Lactobacillus Acidophilus [Bacid -] 1 tab PO DAILY tab 10/24/16 Aa/Hydrolyzed Collagen, Whey [Lps 15-30 Liquid] 30 ml PO BID 01/08/17 Bacitracin - [Bacitracin Topical Ointment -] 1 applic TP TID 01/08/17 Ipratropium 0.02% Nebulizer [Atrovent *Nebulizer*] 0.5 mg IH Q6H 01/08/17 Mirtazapine [Remeron -] 15 mg PO HS 01/08/17 Physical Exam-GI Vital Signs: Vital Signs Temperature 99.4 F 01/08/17 19:17 Pulse Rate 84 01/08/17 19:33 Respiratory Rate 14 01/08/17 19:33 Blood Pressure 74/52 01/08/17 19:33 O2 Sat by Pulse Oximetry (%) 100 01/08/17 19:33 Constitutional: Yes: Ashen, Thin HENT: Yes: Atraumatic Neck: Yes: Supple Cardiovascular: Yes: Regular Rate and Rhythm Respiratory: Yes: CTA Bilaterally Gastrointestinal Inspection: Yes: WNL ...Auscultate: Yes: Hypoactive Bowel Sounds ...Palpate: Yes: Soft Labs: CBC, BMP INR, PTT INR 1.30 (0.82-1.09) H 01/08/17 11:30 Hepatic Panel Total Bilirubin 0.4 mg/dL (0.2-1.0) 01/08/17 01:27 AST 18 U/L (15-37) D 01/08/17 01:27 ALT 18 U/L (12-78) 01/08/17 01:27 Alkaline Phosphatase 60 U/L (45-117) D 01/08/17 01:27 Albumin 3.1 g/dl (3.4-5.0) L D 01/08/17 01:27 CBC, BMP 01/08/17 11:30 01/08/17 01:27 Assessment/Plan 82 F with above history now with leukocytosis, fever, hypotension. Likely urosepsis. ? GI bleed-dark stool guaiac neg in ER and patient on Fe suop at [place]. Hgb 12 Rec: At this time, recommend stat ICU evaluation and placement. Start regular AbRx Fluid bolus monitor BP closely Discussed with Dr Sarmiento re: ICU placement
[2017-01-08] MEDS ORDERED: SODIUM CHLORIDE 1,000 ML IV STA ×3 (21:57→23:35)
--- NOTE | 2017-01-08 21:57 | CONSULT ---
Consult Consult Specialty:: Pulm/CCM Reason for Consultation:: UTI, sepsis - History of Present Illness Chief Complaint: AMS History of Present Illness: This is a 82 yo long-term resident HTN, HL, h/o cardiac arrest s/p AICD, COPD , chronic vent dependence s/p trach c/c/b recurrent UTIs (E. coli and klebs) who presented with fevers and questionable black tarry stool. CXR: small to moderate left pleural effusion, no consolidations are seen. Labs significant for lactate 2.3, leukocytosis (18.2), u/a 772 wbc.BP 80/40s NS x 250ml x1 given. Guaiac negative. Levaquin x1 given and changed to cefepime and vanco. On arrival to ICU patient opens eyes to voice and follows simple commands. BP: 120/ 50s. 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 Cardio/Vascular: Yes: AFIB (Paroxysmal), CHF, HTN, Hyperlipdemia, Other (h/o cardiac arrest s/p AICD - Single lead) Pulmonary: Yes: COPD, Other (respiratory failure) Gastrointestinal: Yes: GERD - Past Surgical History Past Surgical History: Yes: AICD (Medtronic, implanted following cardiac arrest) , Cataract Removal (2011) - Alcohol/Substance Use Hx Alcohol Use: No - Smoking History Smoking history: Never smoked Have you smoked in the past 12 months: No Aproximately how many cigarettes per day: 0 - Social History Usual Living Arrangement: [facility] History of Recent Travel: No Home Medications - Allergies Allergies/Adverse Reactions: Allergies Allergy/AdvReac Type Severity Reaction Status Date / Time doxycycline Allergy Intermediate Verified 01/08/17 00:59 CLAMS Allergy Intermediate Hives Uncoded 01/08/17 00:59 - Home Medications Home Medications: Ambulatory Orders Acetaminophen [Tylenol] 650 mg PO Q4H PRN 10/19/16 Ascorbic Acid [Vitamin C -] 500 mg PO DAILY 10/19/16 Docusate Sodium 300 mg PO HS 10/19/16 Ferrous Sulfate 325 mg PO BID 10/19/16 Hypromellose 0.5% Opth Soln [Artificial Tears] 1 drop OU BID 10/19/16 Loratadine 10 mg PO DAILY 10/19/16 Multivitamin [Poly-Vitamin] 1 each PO DAILY 10/19/16 Omeprazole 20 mg PO DAILY 10/19/16 Prednisone [Deltasone -] 20 mg PO DAILY 10/19/16 Rivaroxaban [Xarelto -] 20 mg PO DAILY 10/19/16 Simvastatin [Zocor -] 20 mg PO HS 10/19/16 Albuterol 2.5/Ipratropium 0.5 [Duoneb -] 1 amp NEB QIDR amp 10/24/16 Lactobacillus Acidophilus [Bacid -] 1 tab PO DAILY tab 10/24/16 Aa/Hydrolyzed Collagen, Whey [Lps 15-30 Liquid] 30 ml PO BID 01/08/17 Bacitracin - [Bacitracin Topical Ointment -] 1 applic TP TID 01/08/17 Ipratropium 0.02% Nebulizer [Atrovent *Nebulizer*] 0.5 mg IH Q6H 01/08/17 Mirtazapine [Remeron -] 15 mg PO HS 01/08/17 Family Disease History - Family Disease History Family History: Unable to Obtain Review of Systems Unable to obtain ROS, reason: trached and non verbal Physical Exam Vital Signs: Vital Signs Temperature 99.4 F 01/08/17 19:17 Pulse Rate 89 01/08/17 21:15 Respiratory Rate 14 01/08/17 21:15 Blood Pressure 121/43 01/08/17 21:15 O2 Sat by Pulse Oximetry (%) 100 01/08/17 21:15 Current Medications Acetaminophen (Tylenol -) 650 mg PO Q4H PRN PRN Reason: PAIN OR FEVER Last Admin: 01/08/17 17:44 Dose: 650 mg Albuterol/Ipratropium (Duoneb -) [address] [facility] Last Admin: 01/08/17 17:45 Dose: 1 amp Amino Acids (Prosource No Carb Liquid Pkt) [address] [facility] Last Admin: 01/08/17 11:36 Dose: 30 ml Artificial Tears (Artificial Tears) 1 drop OU BID PRN PRN Reason: DRY EYES Last Admin: 01/08/17 11:37 Dose: 1 drop Ascorbic Acid (Vitamin C -) [address] [facility] Last Admin: 01/08/17 11:36 Dose: 500 mg Atorvastatin Calcium (Lipitor -) [address] [facility] Bacitracin (Bacitracin -) [address] [facility] Last Admin: 01/08/17 14:32 Dose: 1 applic Docusate Sodium (Colace -) 300 mg PO HS BREANN Ferrous Sulfate (Feosol -) [address] [facility] Last Admin: 01/08/17 11:35 Dose: 325 mg Pantoprazole Sodium (Protonix 40mg Ivpb (Pre-Docked)) 100 mls @ 200 mls/hr IVPB BID [facility] Last Admin: 01/08/17 11:36 Dose: 200 mls/hr Lactobacillus Acidophilus (Bacid -) [address] [facility] Last Admin: 01/08/17 11:37 Dose: 1 tab Loratadine (Claritin -) [address] [facility] Last Admin: 01/08/17 11:35 Dose: 10 mg Mirtazapine (Remeron -) [address] [facility] Multivitamins/Minerals/Vitamin C (Tab-A-Vit -) [address] [facility] Last Admin: 01/08/17 11:36 Dose: 1 tab Constitutional: Yes: Calm, Cachectic Eyes: Yes: PERRL Neck: Yes: Trachea Midline, Other (trach c/d/i) Cardiovascular: Yes: Regular Rate and Rhythm, S1, S2 Respiratory: Yes: CTA Bilaterally, Mechanically Ventilated Gastrointestinal: Yes: Normal Bowel Sounds, Soft Extremities: Yes: WNL Edema: No Labs: CBCD WBC 18.2 K/mm3 (4.0-10.0) H 01/08/17 11:30 RBC 4.63 M/mm3 (3.60-5.2) 01/08/17 11:30 Hgb 12.2 GM/dL (10.7-15.3) 01/08/17 11:30 Hct 38.8 % (32.4-45.2) 01/08/17 11:30 MCV 83.7 fl (80-96) 01/08/17 11:30 MCHC 31.3 g/dl (32.0-36.0) L 01/08/17 11:30 RDW 16.9 % (11.6-15.6) H 01/08/17 11:30 Plt Count 196 K/MM3 (134-434) 01/08/17 11:30 MPV 8.7 fl (7.5-11.1) 01/08/17 11:30 CMP Sodium 143 mmol/L (136-145) 01/08/17 01:27 Potassium 4.1 mmol/L (3.5-5.1) 01/08/17 01:27 Chloride 102 mmol/L (98-107) 01/08/17 01:27 Carbon Dioxide 32 mmol/L (21-32) 01/08/17 01:27 Anion Gap 9 (8-16) 01/08/17 01:27 BUN 31 mg/dL (7-18) H D 01/08/17 01:27 Creatinine 0.6 mg/dL (0.55-1.02) 01/08/17 01:27 Creat Clearance w eGFR > 60 (>60) 01/08/17 01:27 Random Glucose 93 mg/dL (74-106) 01/08/17 01:27 Calcium 8.7 mg/dL (8.5-10.1) 01/08/17 01:27 Total Bilirubin 0.4 mg/dL (0.2-1.0) 01/08/17 01:27 AST 18 U/L (15-37) D 01/08/17 01:27 ALT 18 U/L (12-78) 01/08/17 01:27 Alkaline Phosphatase 60 U/L (45-117) D 01/08/17 01:27 Total Protein 6.6 g/dl (6.4-8.2) 01/08/17 01:27 Albumin 3.1 g/dl (3.4-5.0) L D 01/08/17 01:27 CARDIAC ENZYMES Troponin I < 0.02 ng/ml (0.00-0.05) 01/08/17 11:30 Urine Test Results Urine Color Brown 01/08/17 04:14 Urine Appearance Cloudy 01/08/17 04:14 Urine pH 8.0 (5.0-8.0) D 01/08/17 04:14 Ur Specific [place] 1.015 (1.005-1.025) 01/08/17 04:14 Urine Protein 2+ (NEGATIVE) H 01/08/17 04:14 Urine Glucose (UA) Negative (NEGATIVE) 01/08/17 04:14 Urine Ketones 1+ (NEGATIVE) H 01/08/17 04:14 Urine Blood 3+ (NEGATIVE) H 01/08/17 04:14 Urine Nitrite Negative (NEGATIVE) 01/08/17 04:14 Urine Bilirubin Negative (NEGATIVE) 01/08/17 04:14 Ur Leukocyte Esterase Trace (NEGATIVE) H 01/08/17 04:14 Urine RBC 3549 /hpf (0-3) 01/08/17 04:14 Urine WBC 772 /hpf (3-5) 01/08/17 04:14 Urine Bacteria Many /hpf (NONE SEEN) 01/08/17 04:14 Imaging - Results Cat Scan: Report Reviewed, Image Reviewed Problem List - Problems (1) Altered mental status Code(s): R41.82 - ALTERED MENTAL STATUS, UNSPECIFIED (2) Dehydration Code(s): E86.0 - DEHYDRATION (3) Sepsis Code(s): A41.9 - SEPSIS, UNSPECIFIED ORGANISM (4) UTI (urinary tract infection) Code(s): N39.0 - URINARY TRACT INFECTION, SITE NOT SPECIFIED Qualifiers: (5) COPD (chronic obstructive pulmonary disease) Code(s): J44.9 - CHRONIC OBSTRUCTIVE PULMONARY DISEASE, UNSPECIFIED (6) Chronic respiratory failure Code(s): J96.10 - CHRONIC RESPIRATORY FAILURE, UNSP W HYPOXIA OR HYPERCAPNIA Qualifiers: Respiratory failure complication: hypercapnia Qualified Code(s): J96.12 - Chronic respiratory failure with hypercapnia (7) Fever Code(s): R50.9 - FEVER, UNSPECIFIED Assessment/Plan a/p: 82 yo who presented with UTI, sepsis, chronic resp failure -cont ABX: cefepime and vanco. Previous urine organisms sens to cefepime -cont home vent settings -IV fluids -trend lactate -f/u cultures -DVT prophylaxis -GI prophylaxis Boerem ACNP Pulm/CCM CCT: 35m
[2017-01-08] MEDS: DOCUSATE SODIUM 100 MG CAPSULE (FP) PO SCH (23:09)
[2017-01-08] MEDS: ATORVASTATIN CA 10 MG TABLET (FP) PO SCH (23:10)
[2017-01-08] MEDS: MIRTAZAPINE 15 MG TABLET (FP) PO SCH (23:13)
[2017-01-09] MEDS: ALBUTEROL SO4 2.5/IPRATROPIUM 0.5 INH SOL 3 ML VIAL.NEB. NEB SCH ×5 (00:04→23:39)
[2017-01-09 01:20] VITALS: BMI 16.0
[2017-01-09] MEDS ORDERED: VASOPRESSIN 20 UNITS/ML VIAL IV ONE ×3 (02:05→19:49)
[2017-01-09] MEDS: VASOPRESSIN 50 UNITS in SODIUM CHLORIDE 97.5 ML IVPB SCH ×3 (02:15→22:12)
--- NOTE | 2017-01-09 03:00 | CONS ---
DATE OF CONSULTATION: 01/08/2017 REFERRING PHYSICIAN: Jacky Cook M.D. HISTORY OF PRESENT ILLNESS: History is obtained from chart. The patient is an 81-year-old white female resident of [facility] with past medical history of chronic respiratory failure on ventilatory support, COPD status post cardiac arrest 1998, atrial fibrillation, CHF, history of defibrillator placement, transferred to [facility] secondary to noted black tarry stools and fever. Patient apparently was in [facility] last night when she was noted to have black tarry stools. Apparently she had fever. Patient presented to the emergency room above. In the ER, she was noted to have a normal hemoglobin and hematocrit, stool guaiac apparently is negative. She is noted to have elevated lactate level, and she is felt to have possible underlying sepsis. She was admitted, she was started on IV fluids. She was also evaluated by cardiology consultation, placed on antibiotic therapy. No further history available at this time. PAST MEDICAL HISTORY: Again includes COPD, chronic respiratory failure on ventilatory support, atrial fibrillation, CHF, status post cardiac arrest status post AICD placement. REVIEW OF SYSTEMS: Unable to obtain. CURRENT MEDICATIONS: Include DuoNeb q.i.d., Colace, artificial tears, Lipitor, Feosol, , Protonix, Claritin, vitamin C. PHYSICAL EXAMINATION: General: The patient is an elderly white female, well-developed, well- nourished., responsive, in no acute respiratory distress, on ventilatory support. Vital signs: She is currently afebrile. Blood pressure 122/95, respiratory rate 14. HEENT: Head is normocephalic, atraumatic. Neck: Supple. Heart: Irregularly irregular. S1, S2. Chest: Initial breath sounds bilaterally. Abdomen: Soft. Bowel sounds present. Extremities: No cyanosis, edema. LABORATORY: BUN 31, creatinine 0.6, lactate 2.3, BNP 889. WBC 18.2, hemoglobin 12.2, hematocrit 38.8 with a platelet count of 196,000. Chest x-ray reveals no infiltrates, small stone effusions. IMPRESSION: 1. Chronic respiratory failure on ventilatory support. 2. Rule out possible gastrointestinal bleed, although stool guaiac is negative, hemoglobin stable. 3. Rule out infectious etiology, noted by elevated WBC as well as elevated lactate, mild dehydration, r/o source 4. Atrial fibrillation. 5. History of cardiac arrest. PLAN: GI workup, ID consult,antibiotics, IV fluids, trend lactate level, obtain cultures, monitor H&H, continue ventilatory support on assist control mode. ELLIS CABRERA M.D. [id number] MTDD
[2017-01-09 06:34] LABS: BASOPHIL 0.5 % (0-2.0); EOSINOPHIL 2.8 % (0-4.5); MCH 26.6 pg (25.7-33.7); MCHC 31.4 g/dl (32.0-36.0); MEAN CELL VOLUME 84.6 fl (80-96); MEAN PLT VOLUME 9.1 fl (7.5-11.1); NEUTROPHILS 75.4 % (42.8-82.8); PLATELET COUNT 144 K/MM3 (134-434); RDW 16.9 % (11.6-15.6)
[2017-01-09] MEDS: BACITRACIN 15 GM TUBE TOPICAL OINTMENT TP SCH ×3 (06:46→22:18)
[2017-01-09 07:02] LABS: ALBUMIN 2.1 g/dl (3.4-5.0); ANION GAP 9 (8-16); CO2 23 mmol/L (21-32); CREATININE 0.4 mg/dL (0.55-1.02); GLUCOSE,RANDOM 68 mg/dL (74-106); SGOT/AST 13 U/L (15-37)
[2017-01-09 07:06] LABS: ALK PHOS 44 U/L (45-117); BILIRUBIN,TOTAL 0.3 mg/dL (0.2-1.0); SGPT/ALT 14 U/L (12-78); TOT PROT 4.8 g/dl (6.4-8.2)
[2017-01-09] MEDS ORDERED: PT OWN MED DRAWER 7, Y5N ONE (07:28)
[2017-01-09] MEDS: KCL 10 MEQ IVPB 100 ML IVPB SCH ×2 (08:30→10:00)
--- NOTE | 2017-01-09 09:10 | PN ---
Physical Exam: SUBJECTIVE: Patient seen and examined. with trach, can answer yes and no and mouth words. not oriented to place/date/situation, follows commands. calm and cooperative c/o of not being able to breathe, however respiratory rate, saturation and tidal volumes all normal and pt is laying in bed in nad. suctioning with scant mucus. OBJECTIVE: Vital Signs Period Temp Pulse Resp BP Sys/Vera Pulse Ox Last 24 Hr 98 F-100.4 F 68-89 14-25 71-132/38-114 96-100 GENERAL: The patient is awake, alert, in no acute distress. HEAD: Normal with no signs of trauma. EYES: PERRL, extraocular movements intact, sclera anicteric, conjunctiva pale. ENT:oropharynx clear without exudates, no denition in lower, moist mucous membranes. NECK: Trachea midline, full range of motion, supple, with trach in place with some secretions around trach. LUNGS: b/l rhonchi with scattred rales, no wheezes, no crackles, no accessory muscle use. HEART: Regular rate and rhythm, S1, S2 without murmur, rub or gallop. ABDOMEN: Soft, nontender, nondistended, normoactive bowel sounds, no guarding. well-healed peg tube site in left upper quad EXTREMITIES: 2+ radial and dp pulses, warm, well-perfused, no edema. 4/5 hand scrap handler in right hand, 3/5 in left hand scrap handler, 3/5 hip extension b/l, NEUROLOGICAL:facial symmetry Laboratory Results - last 24 hr 01/08/17 01/08/17 01/08/17 11:30 11:30 11:30 WBC 18.2 H RBC 4.63 Hgb 12.2 Hct 38.8 MCV 83.7 MCHC 31.3 L RDW 16.9 H Plt Count 196 MPV 8.7 Neutrophils % Lymphocytes % Monocytes % Eosinophils % Basophils % INR 1.30 H Sodium Potassium Chloride Carbon Dioxide Anion Gap BUN Creatinine Creat Clearance w eGFR POC Glucometer Random Glucose Lactic Acid Calcium Total Bilirubin AST ALT Alkaline Phosphatase Troponin I < 0.02 B-Natriuretic Peptide 889.61 H Total Protein Albumin 01/08/17 01/08/17 01/09/17 18:53 22:03 05:15 WBC 9.0 D RBC 3.68 D Hgb 9.8 L D Hct 31.2 L D MCV 84.6 MCHC 31.4 L RDW 16.9 H Plt Count 144 D MPV 9.1 Neutrophils % 75.4 Lymphocytes % 13.3 D Monocytes % 8.0 Eosinophils % 2.8 Basophils % 0.5 INR Sodium Potassium Chloride Carbon Dioxide Anion Gap BUN Creatinine Creat Clearance w eGFR POC Glucometer 90.99472 Random Glucose Lactic Acid 1.4 Calcium Total Bilirubin AST ALT Alkaline Phosphatase Troponin I B-Natriuretic Peptide Total Protein Albumin 01/09/17 05:15 WBC RBC Hgb Hct MCV MCHC RDW Plt Count MPV Neutrophils % Lymphocytes % Monocytes % Eosinophils % Basophils % INR Sodium 146 H Potassium 3.4 L Chloride 114 H D Carbon Dioxide 23 D Anion Gap 9 BUN 26 H Creatinine 0.4 L D Creat Clearance w eGFR > 60 POC Glucometer Random Glucose 68 L D Lactic Acid Calcium 7.0 L Total Bilirubin 0.3 D AST 13 L D ALT 14 D Alkaline Phosphatase 44 L D Troponin I B-Natriuretic Peptide Total Protein 4.8 L D Albumin 2.1 L D Active Medications Active Medications Acetaminophen (Tylenol -) 650 mg PO Q4H PRN PRN Reason: PAIN OR FEVER Last Admin: 01/08/17 17:44 Dose: 650 mg Albuterol Sulfate (Ventolin 0.083% Nebulizer Soln -) 1 amp NEB Q6H PRN PRN Reason: SHORT OF BREATH/WHEEZING Albuterol/Ipratropium (Duoneb -) 1 amp NEB QIDR [facility] Last Admin: 01/09/17 12:06 Dose: 1 amp Amino Acids (Prosource No Carb Liquid Pkt) 30 ml PO BID [facility] Last Admin: 01/09/17 11:38 Dose: 30 ml Artificial Tears (Artificial Tears) 1 drop OU BID PRN PRN Reason: DRY EYES Last Admin: 01/08/17 11:37 Dose: 1 drop Ascorbic Acid (Vitamin C -) 500 mg PO DAILY [facility] Last Admin: 01/09/17 11:00 Dose: 500 mg Atorvastatin Calcium (Lipitor -) 10 mg PO HS [facility] Last Admin: 01/08/17 23:10 Dose: Not Given Bacitracin (Bacitracin -) 1 applic TP TID [facility] Last Admin: 01/09/17 06:46 Dose: 1 applic Chlorhexidine Gluconate (Peridex -) 15 ml MM BID [facility] Chlorhexidine Gluconate (Hibiclens For Decolonization -) 1 applic TP HS [facility] Docusate Sodium (Colace -) 300 mg PO HS [facility] Last Admin: 01/08/17 23:09 Dose: Not Given Ferrous Sulfate (Feosol -) 325 mg PO BID [facility] Last Admin: 01/09/17 11:36 Dose: 325 mg Pantoprazole Sodium (Protonix 40mg Ivpb (Pre-Docked)) 100 mls @ 200 mls/hr IVPB BID [facility] Last Admin: 01/09/17 11:00 Dose: 200 mls/hr Vasopressin 50 units/ Sodium (Chloride) 100 mls @ 4 mls/hr IVPB TITR TERRY; 2 UNITS/HR PRN Reason: Protocol Last Admin: 01/09/17 11:35 Dose: 12 mls/hr Ertapenem 1 gm/ Sodium (Chloride) 50 mls @ 50 mls/hr IVPB DAILY [facility] PRN Reason: Protocol Last Admin: 01/09/17 11:38 Dose: 50 mls/hr Potassium Chloride/Dextrose/Sod Cl (D5-1/2ns+20 Meq Kcl -) 1,000 mls @ 75 mls/ hr IV ASDIR [facility] Last Admin: 01/09/17 11:44 Dose: 75 mls/hr Lactobacillus Acidophilus (Bacid -) 1 tab PO DAILY [facility] Last Admin: 01/09/17 11:37 Dose: 1 tab Loratadine (Claritin -) 10 mg PO DAILY [facility] Last Admin: 01/09/17 11:37 Dose: 10 mg Mirtazapine (Remeron -) 15 [address] [facility] Last Admin: 01/08/17 23:13 Dose: Not Given Multivitamins/Minerals/Vitamin C (Tab-A-Vit -) 1 tab PO DAILY [facility] Last Admin: 01/09/17 11:37 Dose: 1 tab ASSESSMENT/PLAN: 82 yr old woman with afib (on xarelto) hx of [place], s/p AICD placement, hx of GIB< s/p trach transferred from long term due to fevers, black tarry stool, admitted to ICU for hypotension requiring pressors and UTI. GI black tarry stools - suspicion for GI bleed, serial FOBT's, 1x negative, 1x positive, no bright red blood noted. protonix ivpb BID no diet until further gi evaluation completed and while attempting to wean pressors Cardiovascular hypotension - on 6units of vasopressin, attempt to wean, add IVF 75cc/hr of d5 1 /2ns +20meq of potassium - likely cause may be sepsis secondary to UTI, cxy without acute pathology, will repeat tomorrow - h/h has dropped since admission hold oral anticoagulation with xarelto Afib, currently in sinus, rate controlled echo 04/19/2016 with normal LV and RV function consult: Dr. ellsworth Pulmonary ventolin prn q6hr and duonelinda qidr terry claritin 10mg daily po PMV ordered, will defer PMV until pt is stable ID sepsis likely UTI as source, pt has a hx of resistent organisms, VRE and ESBLE ertapenem qdaily leucocytosis resolved consult Dr. Suarez hematology normocytic anemia - concern for acute gi loss - iron studies pending for further evaluation - serial FOBT Renal hypokalemia - repleted in IVF repeat BMP in the AM Neurological remeron 15mg po HS Diet - pending for gi evaluation for any procedures Dvt - SCD's Code status: discussed with son, HCP, son signed DNR tonight. Visit type - Emergency Visit Emergency Visit: No - New Patient This patient is new to me today: Yes Date on this admission: 01/09/17 - Critical Care Critical Care patient: Yes Total Critical Care Time (in minutes): 41 Critical Care Statement: The care of this patient involved high complexity decision making to prevent further life threatening deterioration of the patient 's condition and/or to evalute & treat vital organ system(s) failure or risk of failure.
--- NOTE | 2017-01-09 09:26 | PN ---
Progress Note (short form) - Note Progress Note: ID consult dictated imp/reccd 82 year old female with chronic respiratory failure admitted with fever, blood in stools found to be hypotensiive now in icu on pressors sepsis suspect urinary source history of ESBL -contact isolation switch to ertapenem f/u cultures Problem List - Problems (1) Sepsis Code(s): A41.9 - SEPSIS, UNSPECIFIED ORGANISM (2) UTI (urinary tract infection) Code(s): N39.0 - URINARY TRACT INFECTION, SITE NOT SPECIFIED Qualifiers:
[2017-01-09] MEDS ORDERED: ALBUTEROL SO4 0.083% IH SOL 2.5 MG/3 ML VIAL.NEB. NEB ONE (09:33)
[2017-01-09] MEDS: AMINO ACIDS/PROTEIN HYDROLYS 30 ML LIQUID.PKT PO SCH ×3 (10:00→22:11)
[2017-01-09] MEDS: LACTOBACILLUS ACIDOPHILUS 1 EACH TAB (FP) PO SCH ×2 (10:00→11:37)
[2017-01-09] MEDS: FERROUS SO4 325 MG TABLET (FP) PO SCH ×3 (10:00→22:11)
[2017-01-09] MEDS: ASCORBIC ACID 500 MG TABLET (FP) PO SCH ×2 (10:00→11:00)
[2017-01-09] MEDS: LORATADINE 10 MG TABLET PO SCH ×2 (10:00→11:37)
[2017-01-09] MEDS: MULTIVITAMINS (DAILY MVI) TABLET (FP) PO SCH ×2 (10:00→11:37)
--- NOTE | 2017-01-09 10:38 | PN ---
Progress Note, Physician Chief Complaint: UTI History of Present Illness: Pt NPO for GI w/u. Pt was on soft diet, thin liquid at [place]. She had a PMV ordered for daily use. Mouthing words to me. Awake,cooperative and interactive. Baseline confusion. ORIGINALLY CAME IN FOR A UTI, BECAME HYPOTENSIVE, HER LACTIC ACID WAS HIGH, SEPTIC? OR SECONDARY TO ALBUTEROL? BC NEGATIVE, UC CONFIRMED UTI, COMFORTABLE IN BED ON MECH EVNT VIA TRACH, ALERT, ON IV ABX. ON VASOPRESSIN - Current Medication List Current Medications: Active Medications Acetaminophen (Tylenol -) 650 mg PO Q4H PRN PRN Reason: PAIN OR FEVER Last Admin: 01/08/17 17:44 Dose: 650 mg Albuterol/Ipratropium (Duoneb -) 1 amp NEB QIDR [facility] Last Admin: 01/09/17 07:30 Dose: 1 amp Amino Acids (Prosource No Carb Liquid Pkt) 30 ml PO BID [facility] Last Admin: 01/08/17 23:10 Dose: Not Given Artificial Tears (Artificial Tears) 1 drop OU BID PRN PRN Reason: DRY EYES Last Admin: 01/08/17 11:37 Dose: 1 drop Ascorbic Acid (Vitamin C -) 500 mg PO DAILY [facility] Last Admin: 01/08/17 11:36 Dose: 500 mg Atorvastatin Calcium (Lipitor -) 10 mg PO HS [facility] Last Admin: 01/08/17 23:10 Dose: Not Given Bacitracin (Bacitracin -) 1 applic TP TID [facility] Last Admin: 01/09/17 06:46 Dose: 1 applic Docusate Sodium (Colace -) 300 mg PO [facility] Last Admin: 01/08/17 23:09 Dose: Not Given Ferrous Sulfate (Feosol -) 325 mg PO BID [facility] Last Admin: 01/08/17 23:10 Dose: Not Given Pantoprazole Sodium (Protonix 40mg Ivpb (Pre-Docked)) 100 mls @ 200 mls/hr IVPB BID [facility] Last Admin: 01/08/17 23:13 Dose: 200 mls/hr Vasopressin 50 units/ Sodium (Chloride) 100 mls @ 4 mls/hr IVPB TITR BREANN; 2 UNITS/HR PRN Reason: Protocol Last Titration: 01/09/17 02:17 Dose: 6 units/hr Ertapenem 1 gm/ Sodium (Chloride) 50 mls @ 50 mls/hr IVPB DAILY [facility] PRN Reason: Protocol Lactobacillus Acidophilus (Bacid -) 1 tab PO DAILY [facility] Last Admin: 01/08/17 11:37 Dose: 1 tab Loratadine (Claritin -) 10 mg PO DAILY [facility] Last Admin: 01/08/17 11:35 Dose: 10 mg Mirtazapine (Remeron -) 15 mg PO HS [facility] Last Admin: 01/08/17 23:13 Dose: Not Given Multivitamins/Minerals/Vitamin C (Tab-A-Vit -) 1 tab PO DAILY [facility] Last Admin: 01/08/17 11:36 Dose: 1 tab - Objective Vital Signs: Vital Signs Temperature 98.3 F 01/09/17 10:00 Pulse Rate 69 01/09/17 10:00 Respiratory Rate 18 01/09/17 10:00 Blood Pressure 112/57 01/09/17 10:00 O2 Sat by Pulse Oximetry (%) 95 01/09/17 09:30 Constitutional: Yes: Well Nourished, No Distress, Calm Cardiovascular: Yes: Regular Rate and Rhythm Respiratory: Yes: Regular Edema: No Peripheral Pulses WNL: Yes Neurological: Yes: Alert Labs: CBC, BMP 01/09/17 05:15 01/09/17 05:15 INR, PTT INR 1.30 (0.82-1.09) H 01/08/17 11:30 Problem List - Problems (1) Anemia Assessment/Plan: STOOL GUAIAC NEGATIVE, CHECK IRON STUDIES, REPEAT GUAIAC Code(s): D64.9 - ANEMIA, UNSPECIFIED (2) Lactate blood increase Assessment/Plan: IMPROVED, NORMAL Code(s): R79.89 - OTHER SPECIFIED ABNORMAL FINDINGS OF BLOOD CHEMISTRY (3) UTI (urinary tract infection) Assessment/Plan: ON IV ABX Laboratory Results - last 24 hr 01/08/17 01/08/17 01/08/17 11:30 11:30 11:30 WBC 18.2 H RBC 4.63 Hgb 12.2 Hct 38.8 MCV 83.7 MCHC 31.3 L RDW 16.9 H Plt Count 196 MPV 8.7 Neutrophils % Lymphocytes % Monocytes % Eosinophils % Basophils % INR 1.30 H Sodium Potassium Chloride Carbon Dioxide Anion Gap BUN Creatinine Creat Clearance w eGFR POC Glucometer Random Glucose Lactic Acid Calcium Total Bilirubin AST ALT Alkaline Phosphatase Troponin I < 0.02 B-Natriuretic Peptide 889.61 H Total Protein Albumin 01/08/17 01/08/17 01/09/17 18:53 22:03 05:15 WBC 9.0 D RBC 3.68 D Hgb 9.8 L D Hct 31.2 L D MCV 84.6 MCHC 31.4 L RDW 16.9 H Plt Count 144 D MPV 9.1 Neutrophils % 75.4 Lymphocytes % 13.3 D Monocytes % 8.0 Eosinophils % 2.8 Basophils % 0.5 INR Sodium Potassium Chloride Carbon Dioxide Anion Gap BUN Creatinine Creat Clearance w eGFR POC Glucometer 90.53081 Random Glucose Lactic Acid 1.4 Calcium Total Bilirubin AST ALT Alkaline Phosphatase Troponin I B-Natriuretic Peptide Total Protein Albumin 01/09/17 05:15 WBC RBC Hgb Hct MCV MCHC RDW Plt Count MPV Neutrophils % Lymphocytes % Monocytes % Eosinophils % Basophils % INR Sodium 146 H Potassium 3.4 L Chloride 114 H D Carbon Dioxide 23 D Anion Gap 9 BUN 26 H Creatinine 0.4 L D Creat Clearance w eGFR > 60 POC Glucometer Random Glucose 68 L D Lactic Acid Calcium 7.0 L Total Bilirubin 0.3 D AST 13 L D ALT 14 D Alkaline Phosphatase 44 L D Troponin I B-Natriuretic Peptide Total Protein 4.8 L D Albumin 2.1 L D Microbiology 01/08/17 04:00 Urine - Urine - Catheterized Urine Culture - Preliminary Non Lactose Fermenting Gnb Code(s): N39.0 - URINARY TRACT INFECTION, SITE NOT SPECIFIED Qualifiers: (4) Chronic respiratory failure Code(s): J96.10 - CHRONIC RESPIRATORY FAILURE, UNSP W HYPOXIA OR HYPERCAPNIA Qualifiers: Qualified Code(s): J96.12 - Chronic respiratory failure with hypercapnia Assessment/Plan ID CONSULT IV ABX TITRATE VASOPRESSIN IVF REPLENISH POTASSIUM MONITOR LABS REPEAT GUAIAC POSITIVE GI ALREADY ON THE CASE IRON STUDIES SCD'S FOR DVT PROPHYLAXIS
[2017-01-09] MEDS: PANTOPRAZOLE SODIUM 100 ML IVPB SCH ×2 (11:00→22:18)
[2017-01-09] MEDS: ERTAPENEM SODIUM 1 GM in SODIUM CHLORIDE 50 ML IVPB SCH (11:38)
[2017-01-09] MEDS: D5-1/2NS+20 MEQ KCL - 1,000 ML IV SCH (11:44)
--- NOTE | 2017-01-09 12:23 | CONSULT ---
Admitting History and Physical - Admission History of Present Illness: Admission note: "History of Present Illness: 81 year old female, with a significant past medical history of Afib, CHF, cardiac arrest 1998, COPD, ventilatory failure s/p trach, vent dependent, UTIs and GI bleed, who presents to the emergency department via ems from [facility] with black tarry stools and fever today. The patient is afebrile in the ED. She is non-verbal on the vent, however, is able to respond via hand gestures and head nodding. " 82 year old female,chronic respiratory failure admitted with fever, black tarry stools, found to be hypotensiive, now in icu on pressors sepsis urinary source suspected by ID. Pt NPO for GI w/u. Pt was on soft diet, thin liquid at [place]. She had a PMV ordered for daily use. Mouthing words to me. Awake,cooperative and interactive. Baseline confusion. 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, Parkinson's Cardiovascular: Yes: AFIB (Paroxysmal), CHF, HTN, Hyperlipdemia, Other (h/o cardiac arrest s/p AICD - Single lead) Pulmonary: Yes: COPD, Other (respiratory failure) Gastrointestinal: Yes: GERD Heme/Onc: Yes: Anemia - Past Surgical History Past Surgical History: Yes: AICD (Medtronic, implanted following cardiac arrest) , Cataract Removal (2011) - Smoking History Smoking history: Never smoked Have you smoked in the past 12 months: No Aproximately how many cigarettes per day: 0 - Alcohol/Substance Use Hx Alcohol Use: No - Social History History of Recent Travel: No History - Admission Reason For Visit: URINARY TRACT INFECTION/SEPSIS - Hearing Hearing: Normal Speech Evaluation - Communication Primary Language: CROATIAN Recommendations - Speech Evaluation, Impression/Plan Impression: PMV evaluation ordered. To follow as pt improves medically,for PMV and swallowing evaluation, once medically indicated.
--- NOTE | 2017-01-09 13:04 | PN ---
Teaching Attending Note Name of Resident: Jose Luna ATTENDING PHYSICIAN STATEMENT I saw and evaluated the patient. I reviewed the resident's note and discussed the case with the resident. I agree with the resident's findings and plan as documented. SUBJECTIVE: Patient seen and examined in the ICU. Awake and responsive. Remains on 6 units/hour of Vasopressin. AC mode of vent. No occult bleeding. Intake & Output 01/06/17 01/07/17 01/08/17 01/09/17 23:59 23:59 23:59 23:59 Intake Total 3450 84 Balance 3450 84 Weight 96 lb 9 oz 106 lb 0.677 oz Last Vital Signs Temp Pulse Resp BP Pulse Ox 98.3 F 72 18 92/41 95 01/09/17 10:00 01/09/17 12:00 01/09/17 12:03 01/09/17 12:00 01/09/17 09:30 Active Medications Acetaminophen (Tylenol -) 650 mg PO Q4H PRN PRN Reason: PAIN OR FEVER Last Admin: 01/08/17 17:44 Dose: 650 mg Albuterol/Ipratropium (Duoneb -) 1 amp NEB QIDR [facility] Last Admin: 01/09/17 12:06 Dose: 1 amp Amino Acids (Prosource No Carb Liquid Pkt) 30 ml PO BID [facility] Last Admin: 01/09/17 11:38 Dose: 30 ml Artificial Tears (Artificial Tears) 1 drop OU BID PRN PRN Reason: DRY EYES Last Admin: 01/08/17 11:37 Dose: 1 drop Ascorbic Acid (Vitamin C -) 500 mg PO DAILY [facility] Last Admin: 01/09/17 11:00 Dose: 500 mg Atorvastatin Calcium (Lipitor -) 10 mg PO HS [facility] Last Admin: 01/08/17 23:10 Dose: Not Given Bacitracin (Bacitracin -) 1 applic TP TID [facility] Last Admin: 01/09/17 06:46 Dose: 1 applic Docusate Sodium (Colace -) 300 mg PO HS [facility] Last Admin: 01/08/17 23:09 Dose: Not Given Ferrous Sulfate (Feosol -) 325 mg PO BID [facility] Last Admin: 01/09/17 11:36 Dose: 325 mg Pantoprazole Sodium (Protonix 40mg Ivpb (Pre-Docked)) 100 mls @ 200 mls/hr IVPB BID [facility] Last Admin: 01/09/17 11:00 Dose: 200 mls/hr Vasopressin 50 units/ Sodium (Chloride) 100 mls @ 4 mls/hr IVPB TITR [facility]; 2 UNITS/HR PRN Reason: Protocol Last Admin: 01/09/17 11:35 Dose: 12 mls/hr Ertapenem 1 gm/ Sodium (Chloride) 50 mls @ 50 mls/hr IVPB DAILY [facility] PRN Reason: Protocol Last Admin: 01/09/17 11:38 Dose: 50 mls/hr Potassium Chloride/Dextrose/Sod Cl (D5-1/2ns+20 Meq Kcl -) 1,000 mls @ 75 mls/ hr IV ASDIR [facility] Last Admin: 01/09/17 11:44 Dose: 75 mls/hr Lactobacillus Acidophilus (Bacid -) 1 tab PO DAILY [facility] Last Admin: 01/09/17 11:37 Dose: 1 tab Loratadine (Claritin -) 10 mg PO DAILY [facility] Last Admin: 01/09/17 11:37 Dose: 10 mg Mirtazapine (Remeron -) 15 mg PO HS [facility] Last Admin: 01/08/17 23:13 Dose: Not Given Multivitamins/Minerals/Vitamin C (Tab-A-Vit -) 1 tab PO DAILY [facility] Last Admin: 01/09/17 11:37 Dose: 1 tab Constitutional: Yes: Awake on AC MOde of vent Eyes: Yes: PERRL Neck: Yes: Trachea Midline, Other (trach c/d/i) Cardiovascular: Yes: Regular Rate and Rhythm, S1, S2 Respiratory: Yes: Clear, Mechanically Ventilated Gastrointestinal: Yes: Normal Bowel Sounds, Soft Extremities: Yes: WNL Edema: No Labs: Laboratory Results - last 24 hr 01/08/17 01/08/17 01/09/17 18:53 22:03 05:15 WBC 9.0 D RBC 3.68 D Hgb 9.8 L D Hct 31.2 L D MCV 84.6 MCHC 31.4 L RDW 16.9 H Plt Count 144 D MPV 9.1 Neutrophils % 75.4 Lymphocytes % 13.3 D Monocytes % 8.0 Eosinophils % 2.8 Basophils % 0.5 Sodium Potassium Chloride Carbon Dioxide Anion Gap BUN Creatinine Creat Clearance w eGFR POC Glucometer 90.49795 Random Glucose Lactic Acid 1.4 Calcium Total Bilirubin AST ALT Alkaline Phosphatase Total Protein Albumin 01/09/17 05:15 WBC RBC Hgb Hct MCV MCHC RDW Plt Count MPV Neutrophils % Lymphocytes % Monocytes % Eosinophils % Basophils % Sodium 146 H Potassium 3.4 L Chloride 114 H D Carbon Dioxide 23 D Anion Gap 9 BUN 26 H Creatinine 0.4 L D Creat Clearance w eGFR > 60 POC Glucometer Random Glucose 68 L D Lactic Acid Calcium 7.0 L Total Bilirubin 0.3 D AST 13 L D ALT 14 D Alkaline Phosphatase 44 L D Total Protein 4.8 L D Albumin 2.1 L D Problem List - Problems (1) Altered mental status Code(s): R41.82 - ALTERED MENTAL STATUS, UNSPECIFIED (2) Dehydration Code(s): E86.0 - DEHYDRATION (3) Sepsis Code(s): A41.9 - SEPSIS, UNSPECIFIED ORGANISM (4) UTI (urinary tract infection) Code(s): N39.0 - URINARY TRACT INFECTION, SITE NOT SPECIFIED Qualifiers: (5) COPD (chronic obstructive pulmonary disease) Code(s): J44.9 - CHRONIC OBSTRUCTIVE PULMONARY DISEASE, UNSPECIFIED (6) Chronic respiratory failure Code(s): J96.10 - CHRONIC RESPIRATORY FAILURE, UNSP W HYPOXIA OR HYPERCAPNIA Qualifiers: Respiratory failure complication: hypercapnia Qualified Code(s): J96.12 - Chronic respiratory failure with hypercapnia (7) Fever Code(s): R50.9 - FEVER, UNSPECIFIED Assessment/Plan ABX per ID AC Mode vent Follow CBC Normal transfusion thresholds Wean Vasopressin IVF Follow cultures SCDS GI prophylaxis Dr Medina Critical care time spent in reviewing chart, evaluating patient and formulating plan 35 min
[2017-01-09] MEDS ORDERED: ALBUTEROL SO4 0.083% IH SOL 2.5 MG/3 ML VIAL.NEB. NEB PRN (14:30)
--- NOTE | 2017-01-09 15:55 | PN ---
Progress Note, Physician Chief Complaint: Cardiology follow up Awake Telem NSR History of Present Illness: 81 year old female with a PMH of PAfib, HLD, CHF, cardiac arrest 1998, s/p Medtronic AICD - Single lead, COPD, ventilatory failure s/p trach, and is vent dependent. There is a history of UTIs and GI bleeds in the past. She presents to the ED from [facility] with black tarry stools and fevers. - Current Medication List Current Medications: Active Medications Acetaminophen (Tylenol -) 650 mg PO Q4H PRN PRN Reason: PAIN OR FEVER Last Admin: 01/08/17 17:44 Dose: 650 mg Albuterol Sulfate (Ventolin 0.083% Nebulizer Soln -) 1 amp NEB Q6H PRN PRN Reason: SHORT OF BREATH/WHEEZING Albuterol/Ipratropium (Duoneb -) 1 amp NEB QIDR [facility] Last Admin: 01/09/17 12:06 Dose: 1 amp Amino Acids (Prosource No Carb Liquid Pkt) 30 ml PO BID [facility] Last Admin: 01/09/17 11:38 Dose: 30 ml Artificial Tears (Artificial Tears) 1 drop OU BID PRN PRN Reason: DRY EYES Last Admin: 01/08/17 11:37 Dose: 1 drop Ascorbic Acid (Vitamin C -) 500 mg PO DAILY [facility] Last Admin: 01/09/17 11:00 Dose: 500 mg Atorvastatin Calcium (Lipitor -) 10 mg PO [facility] Last Admin: 01/08/17 23:10 Dose: Not Given Bacitracin (Bacitracin -) 1 applic TP TID [facility] Last Admin: 01/09/17 06:46 Dose: 1 applic Docusate Sodium (Colace -) 300 mg PO [facility] Last Admin: 01/08/17 23:09 Dose: Not Given Ferrous Sulfate (Feosol -) 325 mg PO BID [facility] Last Admin: 01/09/17 11:36 Dose: 325 mg Pantoprazole Sodium (Protonix 40mg Ivpb (Pre-Docked)) 100 mls @ 200 mls/hr IVPB BID [facility] Last Admin: 01/09/17 11:00 Dose: 200 mls/hr Vasopressin 50 units/ Sodium (Chloride) 100 mls @ 4 mls/hr IVPB TITR BREANN; 2 UNITS/HR PRN Reason: Protocol Last Admin: 01/09/17 11:35 Dose: 12 mls/hr Ertapenem 1 gm/ Sodium (Chloride) 50 mls @ 50 mls/hr IVPB DAILY [facility] PRN Reason: Protocol Last Admin: 01/09/17 11:38 Dose: 50 mls/hr Potassium Chloride/Dextrose/Sod Cl (D5-1/2ns+20 Meq Kcl -) 1,000 mls @ 75 mls/ hr IV ASDIR [facility] Last Admin: 01/09/17 11:44 Dose: 75 mls/hr Lactobacillus Acidophilus (Bacid -) 1 tab PO DAILY [facility] Last Admin: 01/09/17 11:37 Dose: 1 tab Loratadine (Claritin -) 10 mg PO DAILY [facility] Last Admin: 01/09/17 11:37 Dose: 10 mg Mirtazapine (Remeron -) 15 mg PO HS [facility] Last Admin: 01/08/17 23:13 Dose: Not Given Multivitamins/Minerals/Vitamin C (Tab-A-Vit -) 1 tab PO DAILY [facility] Last Admin: 01/09/17 11:37 Dose: 1 tab - Objective Vital Signs: Vital Signs Temperature 98.6 F 01/09/17 14:00 Pulse Rate 74 01/09/17 14:00 Respiratory Rate 16 01/09/17 14:05 Blood Pressure 104/39 01/09/17 14:00 O2 Sat by Pulse Oximetry (%) 95 01/09/17 09:30 Constitutional: Yes: Cachectic HENT: Yes: Atraumatic, Normocephalic Cardiovascular: Yes: Regular Rate and Rhythm Respiratory: Yes: Regular, CTA Bilaterally Gastrointestinal: Yes: Normal Bowel Sounds ...Rectal Exam: Yes: WNL Genitourinary: Yes: WNL Edema: No Labs: CBC, BMP 01/09/17 05:15 01/09/17 05:15 INR, PTT INR 1.30 (0.82-1.09) H 01/08/17 11:30 Assessment/Plan Remains in NSR Continue to hold systemic AC until risk of bleeding is reasonably low. Will see as needed.
--- NOTE | 2017-01-09 20:15 | CONS ---
DATE OF CONSULTATION: DATE OF DICTATION: 01/09/2017 REQUESTED BY: Jacky Cook MD HISTORY OF PRESENT ILLNESS: An 82-year-old woman who [facility]. She has chronic respiratory failure and is on a ventilator via tracheostomy. She was sent to the ER day before yesterday, on the night of the with blood mixed with tarry stools. Upon arrival in the emergency room, she was found to have a fever. She was admitted and transferred to the ICU with hypotension. She was noted to have pyuria. She was originally given Levaquin and then vancomycin and cefepime last night. She is awake and alert on the ventilator and is on low dose vasopressin. She is resting comfortably and has no complaints. PAST MEDICAL HISTORY: Notable for respiratory failure with tracheostomy, atrial fibrillation, COPD, hypertension, CHF, hyperlipidemia, history of cardiac arrest, multiple UTIs in the past, pneumonia in the past. She has had a right axillary abscess with MRSA in the past. PAST SURGICAL HISTORY: Notable for pacemaker, defibrillator. She is status post tracheostomy. She has had a cataract removal as well. ALLERGIES: DOXYCYCLINE and CLAMS. CURRENT MEDICATIONS: At the [facility] include Remeron, Atrovent, bacitracin, Tylenol, Zocor, Xarelto, prednisone, omeprazole, multivitamins, loratadine, lactobacillus, ferrous sulfate, vitamin C and DuoNebs as well as Colace. FAMILY HISTORY: Noncontributory. SOCIAL HISTORY: There is no history of any substance use. She is a long-term [facility] resident. REVIEW OF SYSTEMS: She is alert. She has no pain. No chest pain or abdominal pain. There is no report of nausea, vomiting, or diarrhea. She has no skin breakdown. PHYSICAL EXAMINATION: General: She is awake and alert. Vital Signs: Temperature is 99. T-max was 100.4. Blood pressure is currently 101/44, as low as 71/40 last night. Her pulse is 68. Respiratory rate 17. She is hooked up to the ventilator via tracheostomy with FiO2 of 40%. HEENT: She is normocephalic. Her eyes are anicteric. Neck: Supple. Lungs: Diminished breath sounds at the bases. Heart: Regular rate and rhythm. Abdomen: Soft, nontender. She has no Bhandari. Extremities: Without edema. LABORATORY DATA: Notable for a white count on admission of 18.7. Today is 9. Hemoglobin is 9.8, platelets of 144. INR is 1.3. BUN and creatinine are 26 and 0.4. LFTs are normal. Albumin is 2.1. Urinalysis shows brown cloudy urine with 772 white cells. Stool occult blood was negative. Cultures, urine and blood, are pending. Chest x-ray shows no acute infiltrate with better aeration of the left base. IN SUMMARY: This is an 82-year-old woman admitted to the ICU for sepsis with hypotension requiring pressors and fluids. She was given vancomycin and cefepime last night. Source appears to be her urine. She has evidence of pyuria. Given the fact she has had extended-spectrum beta lactamase organisms in the past, would suggest we switch her to ertapenem and follow up her cultures. She appears to be stable on the ventilator and I do not suspect she has any pneumonectomy at this time. Further recommendations to follow based on her clinical course. RAGHAVENDRA VALENTINO M.D. [id number]
[2017-01-09] MEDS: DOCUSATE SODIUM 100 MG CAPSULE (FP) PO SCH (22:10)
[2017-01-09] MEDS: CHLORHEXIDINE GLUCONATE 4% CLEANSER FOR DECOLONIZATION TP SCH (22:11)
[2017-01-09] MEDS: ATORVASTATIN CA 10 MG TABLET (FP) PO SCH (22:11)
[2017-01-09] MEDS: MIRTAZAPINE 15 MG TABLET (FP) PO SCH (22:12)
[2017-01-09] MEDS: CHLORHEXIDINE GLUCONATE 0.12% 15ML CUP MM SCH (22:18)
[2017-01-10] MEDS: VASOPRESSIN 50 UNITS in SODIUM CHLORIDE 97.5 ML IVPB SCH ×2 (01:23→05:25)
[2017-01-10] MEDS ORDERED: VASOPRESSIN 20 UNITS/ML VIAL IV ONE (01:53)
[2017-01-10] MEDS: D5-1/2NS+20 MEQ KCL - 1,000 ML IV SCH ×2 (02:01→16:44)
[2017-01-10] MEDS: BACITRACIN 15 GM TUBE TOPICAL OINTMENT TP SCH ×3 (05:21→21:15)
[2017-01-10] MEDS: ALBUTEROL SO4 2.5/IPRATROPIUM 0.5 INH SOL 3 ML VIAL.NEB. NEB SCH ×3 (05:45→17:25)
[2017-01-10 06:33] LABS: BASOPHIL 0.4 % (0-2.0); EOSINOPHIL 0.9 % (0-4.5); MCH 26.8 pg (25.7-33.7); MCHC 31.7 g/dl (32.0-36.0); MEAN CELL VOLUME 84.7 fl (80-96); NEUTROPHILS 86.3 % (42.8-82.8); PLATELET COUNT 130 K/MM3 (134-434); RDW 17.2 % (11.6-15.6)
[2017-01-10 07:00] LABS: ALBUMIN 2.1 g/dl (3.4-5.0); ANION GAP 11 (8-16); CALCIUM 7.3 mg/dL (8.5-10.1); CO2 20 mmol/L (21-32); GLUCOSE,RANDOM 138 mg/dL (74-106)
[2017-01-10 07:07] LABS: ALK PHOS 42 U/L (45-117); BILIRUBIN,TOTAL 0.3 mg/dL (0.2-1.0); CREATININE 0.5 mg/dL (0.55-1.02); FERRITIN 465.033 ng/ml (6.9-282.5); SGOT/AST 12 U/L (15-37); SGPT/ALT 13 U/L (12-78); TOT PROT 4.9 g/dl (6.4-8.2)
--- NOTE | 2017-01-10 07:49 | PN ---
Physical Exam: SUBJECTIVE: Patient seen and examined awake, alert, asking for tissues to wipe her nose, wants to eat. laying comfortably in bed. denies pain. OBJECTIVE: Vital Signs Period Temp Pulse Resp BP Sys/Vera Pulse Ox Last 24 Hr 98.2 F-98.6 F 62-92 14-22 81-121/31-70 95-96 GENERAL: The patient is awake, alert, in no acute distress. EYES: PERRL, extraocular movements intact, sclera anicteric, conjunctiva pale. ENT:oropharynx clear without exudates, no denition in lower, moist mucous membranes. NECK: Trachea midline, supple, with trach in place without surrounding erythema LUNGS: b/l rhonchi, no wheezes, no crackles, no accessory muscle use. HEART: Regular rate and rhythm, S1, S2 without murmur, rub or gallop. ABDOMEN: Soft, nontender, nondistended, normoactive bowel sounds, no guarding. well-healed peg tube site in left upper quad EXTREMITIES: 2+ radial and dp pulses, warm, well-perfused, no edema. Laboratory Results - last 24 hr 01/09/17 01/09/17 01/10/17 17:00 18:50 05:20 WBC 10.0 RBC 3.57 L Hgb 9.6 L Hct 30.2 L MCV 84.7 MCHC 31.7 L RDW 17.2 H Plt Count 130 L MPV 9.0 Neutrophils % 86.3 H Lymphocytes % 6.2 L D Monocytes % 6.2 Eosinophils % 0.9 Basophils % 0.4 Sodium Potassium Chloride Carbon Dioxide Anion Gap BUN Creatinine Creat Clearance w eGFR Random Glucose Calcium Ferritin Total Bilirubin AST ALT Alkaline Phosphatase Total Protein Albumin Stool Occult Blood Positive Positive 01/10/17 05:20 WBC RBC Hgb Hct MCV MCHC RDW Plt Count MPV Neutrophils % Lymphocytes % Monocytes % Eosinophils % Basophils % Sodium 147 H Potassium 3.5 Chloride 116 H Carbon Dioxide 20 L Anion Gap 11 BUN 25 H Creatinine 0.5 L D Creat Clearance w eGFR > 60 Random Glucose 138 H D Calcium 7.3 L Ferritin 465.033 H Total Bilirubin 0.3 AST 12 L ALT 13 Alkaline Phosphatase 42 L Total Protein 4.9 L Albumin 2.1 L Stool Occult Blood Active Medications Generic Name Dose Route Start Last Admin Trade Name Freq PRN Reason Stop Dose Admin Acetaminophen 650 mg 01/08/17 09:26 01/08/17 17:44 Tylenol - PO 650 mg Q4H PRN Administration PAIN OR FEVER Albuterol Sulfate 1 amp 01/09/17 14:30 Ventolin 0.083% Nebulizer Soln - NEB Q6H PRN SHORT OF BREATH/WHEEZING Albuterol/Ipratropium 1 amp 01/08/17 12:00 01/10/17 05:45 Duoneb - NEB 1 amp QIDR TERRY Administration Amino Acids 30 ml 01/08/17 10:00 01/09/17 22:11 Prosource No Carb Liquid Pkt PO Not Given BID TERRY Artificial Tears 1 drop 01/08/17 09:48 01/08/17 11:37 Artificial Tears OU 1 drop BID PRN Administration DRY EYES Ascorbic Acid 500 mg 01/08/17 10:00 01/09/17 10:00 Vitamin C - PO Not Given DAILY TERRY Atorvastatin Calcium 10 mg 01/08/17 22:00 01/09/17 22:11 Lipitor - PO Not Given HS TERRY Bacitracin 1 applic 01/08/17 14:00 01/10/17 05:21 Bacitracin - TP 1 applic TID TERRY Administration Chlorhexidine Gluconate 15 ml 01/09/17 22:00 01/09/17 22:18 Peridex - MM 15 ml BID TERRY Administration Chlorhexidine Gluconate 1 applic 01/09/17 22:00 01/09/17 22:11 Hibiclens For Decolonization - TP 1 applic HS TERRY Administration Docusate Sodium 300 mg 01/08/17 22:00 01/09/17 22:10 Colace - PO Not Given HS TERRY Ferrous Sulfate 325 mg 01/08/17 10:00 01/09/17 22:11 Feosol - PO Not Given BID TERRY Pantoprazole Sodium 100 mls @ 200 mls/hr 01/08/17 10:00 01/09/17 22:18 Protonix 40mg Ivpb (Pre-Docked) IVPB 200 mls/hr BID TERRY Administration Vasopressin 50 units/ Sodium 100 mls @ 4 mls/hr 01/08/17 23:45 01/10/17 05:25 Chloride IVPB 10 mls/hr TITR TERRY Administration Protocol 2 UNITS/HR Ertapenem 1 gm/ Sodium 50 mls @ 50 mls/hr 01/09/17 10:00 01/09/17 11:38 Chloride IVPB 50 mls/hr DAILY TERRY Administration Protocol Potassium Chloride/Dextrose/Sod Cl 1,000 mls @ 75 mls/hr 01/09/17 10:45 02:01 D5-1/2ns+20 Meq Kcl - IV 75 mls/hr ASDIR TERRY Administration Lactobacillus Acidophilus 1 tab 01/08/17 10:00 01/09/17 10:00 Bacid - PO Not Given DAILY TERRY Loratadine 10 mg 01/08/17 10:00 01/09/17 10:00 Claritin - PO Not Given DAILY TERRY Mirtazapine 15 mg 01/08/17 22:00 01/09/17 22:12 Remeron - PO Not Given HS TERRY Multivitamins/Minerals/Vitamin C 1 tab 01/08/17 10:00 01/09/17 10:00 Tab-A-Vit - PO Not Given DAILY TERRY Microbiology 01/08/17 04:00 Urine - Urine - Catheterized Urine Culture - Final Providencia Stuartii 01/08/17 22:02 Blood - Peripheral Venous Blood Culture - Preliminary NO GROWTH OBTAINED AFTER 24 HOURS, INCUBATION TO CONTINUE FOR 4 DAYS. 01/08/17 22:02 Blood - Peripheral Venous Blood Culture - Preliminary NO GROWTH OBTAINED AFTER 24 HOURS, INCUBATION TO CONTINUE FOR 4 DAYS. ASSESSMENT/PLAN: 82 yr old woman with afib (on xarelto) hx of HI, s/p AICD placement, hx of GIB< s/p trach transferred from [facility] due to fevers, black tarry stool, admitted to ICU for hypotension requiring pressors and UTI. GI black tarry stools - suspicion for GI bleed, serial FOBT's, 1x negative, 2x positive, no bright red blood noted. loose watery stools - sent for c.diff Ag& toxin protonix ivpb qdaily (changed from BID) Discussed with Dr. Hernandez, keep patient npo while on pressors Cardiovascular hypotension, now with bradycardia - switch to dopamine 5mcg/kg/min tittir from vasopressin since pt now bradycardic, - IVF 75cc/hr of d5 1/2ns +20meq of potassium - fluid resuscitate with bolus of NS, re-asses patient after each bolus, monitor for fluid overload - likely cause may be sepsis secondary to UTI - h/h with minimal drop since yesterday hold oral anticoagulation with xarelto since patient is in NSR, and having FOBT + stools. Afib, currently in sinus, rate controlled echo 04/19/2016 with normal LV and RV function consult: Dr. ellsworth discussed with Pulmonary ventolin prn q6hr and duonebs qidr terry claritin 10mg daily po PMV ordered, will defer PMV until pt is stable ID Providencia Stuartii sensitive to rocephin 1gm rocephin qdaily discussed with Dr. Aguila consult Dr. Suarez hematology normocytic anemia - concern for acute gi loss - iron studies pending for further evaluation - serial FOBT Renal hypokalemia - resolved repeat BMP in the AM Neurological remeron 15mg po HS Diet - pending for gi evaluation for any procedures Dvt - SCD's Code status: DNR Visit type - Emergency Visit Emergency Visit: No - New Patient This patient is new to me today: No - Critical Care Critical Care patient: Yes Total Critical Care Time (in minutes): 36 Critical Care Statement: The care of this patient involved high complexity decision making to prevent further life threatening deterioration of the patient 's condition and/or to evalute & treat vital organ system(s) failure or risk of failure.
--- NOTE | 2017-01-10 08:28 | PN ---
Progress Note, Physician Chief Complaint: ID Ertepenem Alert on the vent NAD - Current Medication List Current Medications: Active Medications Acetaminophen (Tylenol -) 650 mg PO Q4H PRN PRN Reason: PAIN OR FEVER Last Admin: 01/08/17 17:44 Dose: 650 mg Albuterol Sulfate (Ventolin 0.083% Nebulizer Soln -) 1 amp NEB Q6H PRN PRN Reason: SHORT OF BREATH/WHEEZING Albuterol/Ipratropium (Duoneb -) 1 amp NEB QIDR [facility] Last Admin: 01/10/17 05:45 Dose: 1 amp Amino Acids (Prosource No Carb Liquid Pkt) 30 ml PO BID [facility] Last Admin: 01/09/17 22:11 Dose: Not Given Artificial Tears (Artificial Tears) 1 drop OU BID PRN PRN Reason: DRY EYES Last Admin: 01/08/17 11:37 Dose: 1 drop Ascorbic Acid (Vitamin C -) 500 mg PO DAILY [facility] Last Admin: 01/09/17 10:00 Dose: Not Given Atorvastatin Calcium (Lipitor -) 10 mg PO HS [facility] Last Admin: 01/09/17 22:11 Dose: Not Given Bacitracin (Bacitracin -) 1 applic TP TID [facility] Last Admin: 01/10/17 05:21 Dose: 1 applic Chlorhexidine Gluconate (Peridex -) 15 ml MM BID [facility] Last Admin: 01/09/17 22:18 Dose: 15 ml Chlorhexidine Gluconate (Hibiclens For Decolonization -) 1 applic TP HS [facility] Last Admin: 01/09/17 22:11 Dose: 1 applic Docusate Sodium (Colace -) 300 mg PO HS [facility] Last Admin: 01/09/17 22:10 Dose: Not Given Ferrous Sulfate (Feosol -) 325 mg PO BID [facility] Last Admin: 01/09/17 22:11 Dose: Not Given Pantoprazole Sodium (Protonix 40mg Ivpb (Pre-Docked)) 100 mls @ 200 mls/hr IVPB BID [facility] Last Admin: 01/09/17 22:18 Dose: 200 mls/hr Vasopressin 50 units/ Sodium (Chloride) 100 mls @ 4 mls/hr IVPB TITR BREANN; 2 UNITS/HR PRN Reason: Protocol Last Titration: 01/10/17 07:00 Dose: 4 units/hr Ertapenem 1 gm/ Sodium (Chloride) 50 mls @ 50 mls/hr IVPB DAILY [facility] PRN Reason: Protocol Last Admin: 01/09/17 11:38 Dose: 50 mls/hr Potassium Chloride/Dextrose/Sod Cl (D5-1/2ns+20 Meq Kcl -) 1,000 mls @ 75 mls/ hr IV ASDIR [facility] Last Admin: 01/10/17 02:01 Dose: 75 mls/hr Lactobacillus Acidophilus (Bacid -) 1 tab PO DAILY [facility] Last Admin: 01/09/17 10:00 Dose: Not Given Loratadine (Claritin -) 10 mg PO DAILY [facility] Last Admin: 01/09/17 10:00 Dose: Not Given Mirtazapine (Remeron -) 15 mg PO HS [facility] Last Admin: 01/09/17 22:12 Dose: Not Given Multivitamins/Minerals/Vitamin C (Tab-A-Vit -) 1 tab PO DAILY [facility] Last Admin: 01/09/17 10:00 Dose: Not Given - Objective Vital Signs: Vital Signs Temperature 98.2 F 01/10/17 06:00 Pulse Rate 65 01/10/17 06:00 Respiratory Rate 14 01/10/17 07:10 Blood Pressure 101/38 01/10/17 06:00 O2 Sat by Pulse Oximetry (%) 96 01/09/17 22:00 Constitutional: Yes: No Distress Neck: Yes: Other (Trach) Respiratory: Yes: WNL, Regular, CTA Bilaterally Gastrointestinal: Yes: WNL, Soft, Hematemesis. No: Tenderness, Tenderness, Epigastrium Edema: No Labs: CBC, BMP 01/10/17 05:20 01/10/17 05:20 INR, PTT INR 1.30 (0.82-1.09) H 01/08/17 11:30 Assessment/Plan Laboratory Tests 01/08/17 01/10/17 01/10/17 04:14 05:20 05:20 WBC 10.0 Hgb 9.6 L Hct 30.2 L Plt Count 130 L BUN 25 H Creatinine 0.5 L D Creat Clearance w eGFR > 60 Ur Leukocyte Esterase Trace H Urine RBC 3549 Urine WBC 772 Urine Bacteria Many Assessment Sepsis syndrome Presumtive UTI source sepsis NLF in urine History of MDRO Plan Continue Ertepenem pending c/s ( May need to switch based on final c/s) Alfred GOMEZ
--- NOTE | 2017-01-10 08:47 | PN ---
Progress Note, Physician History of Present Illness: AWAKE IN ICU NO COMPLAINTS THIS AM - Current Medication List Current Medications: Active Medications Acetaminophen (Tylenol -) 650 mg PO Q4H PRN PRN Reason: PAIN OR FEVER Last Admin: 01/08/17 17:44 Dose: 650 mg Albuterol Sulfate (Ventolin 0.083% Nebulizer Soln -) 1 amp NEB Q6H PRN PRN Reason: SHORT OF BREATH/WHEEZING Albuterol/Ipratropium (Duoneb -) 1 amp NEB QIDR [facility] Last Admin: 01/10/17 05:45 Dose: 1 amp Amino Acids (Prosource No Carb Liquid Pkt) 30 ml PO BID [facility] Last Admin: 01/09/17 22:11 Dose: Not Given Artificial Tears (Artificial Tears) 1 drop OU BID PRN PRN Reason: DRY EYES Last Admin: 01/08/17 11:37 Dose: 1 drop Ascorbic Acid (Vitamin C -) 500 mg PO DAILY [facility] Last Admin: 01/09/17 10:00 Dose: Not Given Atorvastatin Calcium (Lipitor -) 10 mg PO HS [facility] Last Admin: 01/09/17 22:11 Dose: Not Given Bacitracin (Bacitracin -) 1 applic TP TID [facility] Last Admin: 01/10/17 05:21 Dose: 1 applic Chlorhexidine Gluconate (Peridex -) 15 ml MM BID [facility] Last Admin: 01/09/17 22:18 Dose: 15 ml Chlorhexidine Gluconate (Hibiclens For Decolonization -) 1 applic TP [facility] Last Admin: 01/09/17 22:11 Dose: 1 applic Docusate Sodium (Colace -) 300 mg PO HS [facility] Last Admin: 01/09/17 22:10 Dose: Not Given Ferrous Sulfate (Feosol -) 325 mg PO BID [facility] Last Admin: 01/09/17 22:11 Dose: Not Given Pantoprazole Sodium (Protonix 40mg Ivpb (Pre-Docked)) 100 mls @ 200 mls/hr IVPB BID [facility] Last Admin: 01/09/17 22:18 Dose: 200 mls/hr Vasopressin 50 units/ Sodium (Chloride) 100 mls @ 4 mls/hr IVPB TITR BREANN; 2 UNITS/HR PRN Reason: Protocol Last Titration: 01/10/17 07:00 Dose: 4 units/hr Ertapenem 1 gm/ Sodium (Chloride) 50 mls @ 50 mls/hr IVPB DAILY [facility] PRN Reason: Protocol Last Admin: 01/09/17 11:38 Dose: 50 mls/hr Potassium Chloride/Dextrose/Sod Cl (D5-1/2ns+20 Meq Kcl -) 1,000 mls @ 75 mls/ hr IV ASDIR [facility] Last Admin: 01/10/17 02:01 Dose: 75 mls/hr Lactobacillus Acidophilus (Bacid -) 1 tab PO DAILY [facility] Last Admin: 01/09/17 10:00 Dose: Not Given Loratadine (Claritin -) 10 mg PO DAILY [facility] Last Admin: 01/09/17 10:00 Dose: Not Given Mirtazapine (Remeron -) 15 mg PO HS [facility] Last Admin: 01/09/17 22:12 Dose: Not Given Multivitamins/Minerals/Vitamin C (Tab-A-Vit -) 1 tab PO DAILY [facility] Last Admin: 01/09/17 10:00 Dose: Not Given - Objective Vital Signs: Vital Signs Temperature 98.2 F 01/10/17 06:00 Pulse Rate 66 01/10/17 08:00 Respiratory Rate 17 01/10/17 08:00 Blood Pressure 93/35 01/10/17 08:00 O2 Sat by Pulse Oximetry (%) 96 01/09/17 22:00 Cardiovascular: Yes: S1, S2 Respiratory: Yes: Mechanically Ventilated, Rhonchi Gastrointestinal: Yes: Normal Bowel Sounds, Soft Labs: CBC, BMP 01/10/17 05:20 01/10/17 05:20 INR, PTT INR 1.30 (0.82-1.09) H 01/08/17 11:30 Problem List - Problems (1) UGIB (upper gastrointestinal bleed) Assessment/Plan: -R/O BLEED--HEM POS Laboratory Tests 01/08/17 01/09/17 01/10/17 11:30 05:15 05:20 Hgb 12.2 9.8 L D 9.6 L FOLLOW LABS PPI GI CONSULT NOTED Code(s): K92.2 - GASTROINTESTINAL HEMORRHAGE, UNSPECIFIED (2) PAF (paroxysmal atrial fibrillation) Assessment/Plan: HOLD AC--POSSIBLE GI BLEED CARDIO NOTED--RESUME AC ONCE GI ISSUES RESOLVE Code(s): I48.0 - PAROXYSMAL ATRIAL FIBRILLATION (3) Chronic respiratory failure Assessment/Plan: PULM CONSULT Code(s): J96.10 - CHRONIC RESPIRATORY FAILURE, UNSP W HYPOXIA OR HYPERCAPNIA Qualifiers: Qualified Code(s): J96.12 - Chronic respiratory failure with hypercapnia Assessment/Plan HYPOTENSION---R/O SEPSIS--R/O UTI ON IVF ON ABX AWAIT CULTURES
[2017-01-10] MEDS: PANTOPRAZOLE SODIUM 100 ML IVPB SCH (09:12)
[2017-01-10] MEDS: ERTAPENEM SODIUM 1 GM in SODIUM CHLORIDE 50 ML IVPB SCH (09:52)
[2017-01-10] MEDS: CHLORHEXIDINE GLUCONATE 0.12% 15ML CUP MM SCH ×2 (10:16→21:15)
[2017-01-10] MEDS: ARTIFICIAL TEARS (POLYVINYL ALCOHOL 1.4%) OPTH DROPS OU PRN (10:33)
[2017-01-10] MEDS ORDERED: SODIUM CHLORIDE 500 ML IV STA ×2 (11:50→14:12)
[2017-01-10] MEDS: cefTRIAXone 1 GM/50 ML BAG (PRE-DOCKED) IVPB SCH (13:10)
--- NOTE | 2017-01-10 13:19 | PN ---
Teaching Attending Note Name of Resident: Jose Luna ATTENDING PHYSICIAN STATEMENT I saw and evaluated the patient. I reviewed the resident's note and discussed the case with the resident. I agree with the resident's findings and plan as documented. SUBJECTIVE: Pt seen and examined in the ICU. Awake, vented on volume assist control. Remains on vasopressin gtt for persistent shock. No fevers recorded. Asking for food. No reports of bloody stools. OBJECTIVE: Last Vital Signs Temp Pulse Resp BP Pulse Ox 99.0 F 52 L 18 82/43 96 01/10/17 10:55 01/10/17 13:14 01/10/17 12:00 01/10/17 13:14 01/10/17 10:35 Intake & Output 01/07/17 01/08/17 01/09/17 01/10/17 23:59 23:59 23:59 23:59 Intake Total 3450 904 1720 Balance 3450 904 1720 Weight 96 lb 9 oz 106 lb 0.677 oz 106 lb 2 oz Gen: vented, awake HEENT: dry mucous membranes Heart: RRR Lung: decreased breath sounds at the bases Abd: soft, nontender Ext: no edema CBC, BMP 01/10/17 05:20 01/10/17 05:20 Active Medications Acetaminophen (Tylenol -) 650 mg PO Q4H PRN PRN Reason: PAIN OR FEVER Last Admin: 01/08/17 17:44 Dose: 650 mg Albuterol Sulfate (Ventolin 0.083% Nebulizer Soln -) 1 amp NEB Q6H PRN PRN Reason: SHORT OF BREATH/WHEEZING Albuterol/Ipratropium (Duoneb -) 1 amp NEB QIDR [facility] Last Admin: 01/10/17 10:45 Dose: 1 amp Amino Acids (Prosource No Carb Liquid Pkt) 30 ml PO BID [facility] Last Admin: 01/09/17 22:11 Dose: Not Given Artificial Tears (Artificial Tears) 1 drop OU BID PRN PRN Reason: DRY EYES Last Admin: 01/10/17 10:33 Dose: 1 drop Ascorbic Acid (Vitamin C -) 500 mg PO DAILY [facility] Last Admin: 01/09/17 10:00 Dose: Not Given Atorvastatin Calcium (Lipitor -) 10 mg PO HS [facility] Last Admin: 01/09/17 22:11 Dose: Not Given Bacitracin (Bacitracin -) 1 applic TP TID [facility] Last Admin: 01/10/17 05:21 Dose: 1 applic Ceftriaxone Sodium (Rocephin 1gm Ivpb (Pre-Docked)) 1 gm IVPB DAILY [facility] PRN Reason: Protocol Last Admin: 01/10/17 13:10 Dose: 1 gm Chlorhexidine Gluconate (Peridex -) 15 ml MM BID [facility] Last Admin: 01/10/17 10:16 Dose: 15 ml Chlorhexidine Gluconate (Hibiclens For Decolonization -) 1 applic TP HS [facility] Last Admin: 01/09/17 22:11 Dose: 1 applic Docusate Sodium (Colace -) 300 mg PO HS [facility] Last Admin: 01/09/17 22:10 Dose: Not Given Ferrous Sulfate (Feosol -) 325 mg PO BID [facility] Last Admin: 01/09/17 22:11 Dose: Not Given Pantoprazole Sodium (Protonix 40mg Ivpb (Pre-Docked)) 100 mls @ 200 mls/hr IVPB BID [facility] Last Admin: 01/10/17 09:12 Dose: 200 mls/hr Vasopressin 50 units/ Sodium (Chloride) 100 mls @ 4 mls/hr IVPB TITR BREANN; 2 UNITS/HR PRN Reason: Protocol Last Titration: 01/10/17 13:14 Dose: 4 units/hr Potassium Chloride/Dextrose/Sod Cl (D5-1/2ns+20 Meq Kcl -) 1,000 mls @ 75 mls/ hr IV ASDIR [facility] Last Admin: 01/10/17 02:01 Dose: 75 mls/hr Lactobacillus Acidophilus (Bacid -) 1 tab PO DAILY [facility] Last Admin: 01/09/17 10:00 Dose: Not Given Loratadine (Claritin -) 10 mg PO DAILY [facility] Last Admin: 01/09/17 10:00 Dose: Not Given Mirtazapine (Remeron -) 15 mg PO HS [facility] Last Admin: 01/09/17 22:12 Dose: Not Given Multivitamins/Minerals/Vitamin C (Tab-A-Vit -) 1 tab PO DAILY [facility] Last Admin: 01/09/17 10:00 Dose: Not Given ASSESSMENT AND PLAN: UTI Septic Shock Lactic Acidosis resolved Chronic Vent Dependent Respiratory Failure Advanced COPD Atrial Fibrillatoin h/o Cardiac Arrest s/p ICD Anemia HTN - continue antibiotics per ID, can likely de-escalate - H/H not significantly decreased from prior admissions, initial H/H likely hemoconcentrated - can start clears - GI f/u - inhaled bronchodilators - IVF resuscitation - taper off vasopressin gtt - monitor urine output, creatinine - continue volume assist control - DVT/GI prophylaxis - continue ICU monitoring critical care time spent in reviewing chart, evaluating patient and formulating plan 35 min
[2017-01-10] MEDS ORDERED: DOPAMINE 400 MG/D5W - 250 ML IVPB SCH (14:15)
[2017-01-10] MEDS: AMINO ACIDS/PROTEIN HYDROLYS 30 ML LIQUID.PKT PO SCH ×2 (16:41→21:27)
[2017-01-10] MEDS: LORATADINE 10 MG TABLET PO SCH (16:41)
[2017-01-10] MEDS: FERROUS SO4 325 MG TABLET (FP) PO SCH ×2 (16:41→22:00)
[2017-01-10] MEDS: LACTOBACILLUS ACIDOPHILUS 1 EACH TAB (FP) PO SCH (16:41)
[2017-01-10] MEDS: MULTIVITAMINS (DAILY MVI) TABLET (FP) PO SCH (16:42)
[2017-01-10] MEDS: ASCORBIC ACID 500 MG TABLET (FP) PO SCH (16:42)
[2017-01-10] MEDS ORDERED: PT OWN MED DRAWER 7, Y5N ONE (18:32)
--- NOTE | 2017-01-10 19:13 | PN ---
GI Progress Note Subjective: The patient was seen in the ICU. The patient now has diarrhea, stool guaiac positive, Hgb of 9, denies abdominal pain. She was admitted with Urosepsis and GI bleed . No further melena for the past 24 hours. She was previously on Xarelto. History of VRE - Objective Vital Signs: Vital Signs Temperature 98.0 F 01/10/17 14:03 Pulse Rate 66 01/10/17 18:00 Respiratory Rate 16 01/10/17 18:00 Blood Pressure 98/33 01/10/17 18:00 O2 Sat by Pulse Oximetry (%) 96 01/10/17 10:35 Constitutional: Well Nourished Eyes: Yes: Conjunctiva Clear HENT: Yes: Atraumatic Neck: Yes: Supple ...Palpate: Yes: Soft. No: Firm/Rigid, Guarding, Hepatomegaly, Mass, Pulsatile Mass, Splenomegaly, Tenderness Labs: CBC, BMP 01/10/17 05:20 01/10/17 05:20 INR, PTT INR 1.30 (0.82-1.09) H 01/08/17 11:30 Assessment/Plan 1)GI bleeding R> stable, okay to advance diet swallowing evaluation 2) Diarrhea r/o c.diff R> empirically start on IV Flagyl 500mg tid
[2017-01-10] MEDS: CHLORHEXIDINE GLUCONATE 4% CLEANSER FOR DECOLONIZATION TP SCH (21:15)
[2017-01-10] MEDS: DOCUSATE SODIUM 100 MG CAPSULE (FP) PO SCH (21:27)
[2017-01-10] MEDS: MIRTAZAPINE 15 MG TABLET (FP) PO SCH (21:27)
[2017-01-10] MEDS: ATORVASTATIN CA 10 MG TABLET (FP) PO SCH (21:27)
[2017-01-11] MEDS: ALBUTEROL SO4 2.5/IPRATROPIUM 0.5 INH SOL 3 ML VIAL.NEB. NEB SCH ×5 (00:02→23:13)
[2017-01-11] MEDS ORDERED: HEMOQUE TEST 1 EACH EACH ONE (04:24)
[2017-01-11] MEDS: BACITRACIN 15 GM TUBE TOPICAL OINTMENT TP SCH ×3 (06:03→21:13)
[2017-01-11 06:06] LABS: SERUM IRON 17 ug/dL (27-139); TOTAL IRON BINDING CAPACITY 130 ug/dL (250-450); UIBC 113 ug/dL (118-369)
[2017-01-11 06:53] LABS: BASOPHIL 0.8 % (0-2.0); EOSINOPHIL 3.6 % (0-4.5); MCH 26.9 pg (25.7-33.7); MCHC 31.9 g/dl (32.0-36.0); MEAN CELL VOLUME 84.2 fl (80-96); NEUTROPHILS 74.2 % (42.8-82.8); RDW 16.9 % (11.6-15.6); WHITE BLOOD COUNT 8.7 K/mm3 (4.0-10.0)
[2017-01-11 07:25] LABS: ANION GAP 6 (8-16); CALCIUM 7.6 mg/dL (8.5-10.1); CO2 26 mmol/L (21-32); CREATININE 0.4 mg/dL (0.55-1.02); GLUCOSE,RANDOM 107 mg/dL (74-106)
--- NOTE | 2017-01-11 07:43 | PN ---
Physical Exam: SUBJECTIVE: Patient seen and examined crying today, feels sad. said "this is no way to live," feels that she "has been this way for too long." wants food. while is alert, awake and follows commands and answers questions appropriately she does not recall events from yesterday. even with orientation, she does not remember the year/location/date. OBJECTIVE: Vital Signs Period Temp Pulse Resp BP Sys/Vera Pulse Ox Last 24 Hr 97.8 F-99.0 F 52-74 14-30 82-127/32-67 96-97 GENERAL: The patient is awake, alert, in no acute distress. EYES: PERRL, extraocular movements intact, sclera anicteric, conjunctiva pale. ENT:oropharynx clear without exudates, no denition in lower, moist mucous membranes. NECK: Trachea midline, supple, with trach in place LUNGS: b/l rhonchi, no wheezes, no crackles, no accessory muscle use. HEART: Regular rate and rhythm, S1, S2 without murmur, rub or gallop. ABDOMEN: Soft, nontender, nondistended, normoactive bowel sounds, no guarding. well-healed peg tube site in left upper quad EXTREMITIES: 2+ radial and dp pulses, warm, well-perfused, no edema. Laboratory Results - last 24 hr 01/10/17 01/10/17 01/11/17 05:20 15:12 05:20 WBC 8.7 RBC 3.60 Hgb 9.7 L Hct 30.3 L MCV 84.2 MCHC 31.9 L RDW 16.9 H Neutrophils % 74.2 Lymphocytes % 11.9 D Monocytes % 9.5 Eosinophils % 3.6 D Basophils % 0.8 POC Glucometer 153.71311 Iron 17 L TIBC 130 L Iron Saturation 13 L Active Medications Generic Name Dose Route Start Last Admin Trade Name Freq PRN Reason Stop Dose Admin Acetaminophen 650 mg 01/08/17 09:26 01/08/17 17:44 Tylenol - PO 650 mg Q4H PRN Administration PAIN OR FEVER Albuterol Sulfate 1 amp 01/09/17 14:30 Ventolin 0.083% Nebulizer Soln - NEB Q6H PRN SHORT OF BREATH/WHEEZING Albuterol/Ipratropium 1 amp 01/08/17 12:00 01/11/17 06:08 Duoneb - NEB 1 amp QIDR TERRY Administration Amino Acids 30 ml 01/08/17 10:00 01/10/17 21:27 Prosource No Carb Liquid Pkt PO Not Given BID TERRY Artificial Tears 1 drop 01/08/17 09:48 01/10/17 10:33 Artificial Tears OU 1 drop BID PRN Administration DRY EYES Ascorbic Acid 500 mg 01/08/17 10:00 01/10/17 16:42 Vitamin C - PO Not Given DAILY TERRY Atorvastatin Calcium 10 mg 01/08/17 22:00 01/10/17 21:27 Lipitor - PO Not Given HS TERRY Bacitracin 1 applic 01/08/17 14:00 01/11/17 06:03 Bacitracin - TP 1 applic TID TERRY Administration Ceftriaxone Sodium 1 gm 01/10/17 12:00 01/10/17 13:10 Rocephin 1gm Ivpb (Pre-Docked) IVPB 1 gm DAILY TERRY Administration Protocol Chlorhexidine Gluconate 15 ml 01/09/17 22:00 01/10/17 21:15 Peridex - MM 15 ml BID TERRY Administration Chlorhexidine Gluconate 1 applic 01/09/17 22:00 01/10/17 21:15 Hibiclens For Decolonization - TP 1 applic HS TERRY Administration Docusate Sodium 300 mg 01/08/17 22:00 01/10/17 21:27 Colace - PO Not Given HS TERRY Ferrous Sulfate 325 mg 01/08/17 10:00 01/10/17 22:00 Feosol - PO Not Given BID TERRY Potassium Chloride/Dextrose/Sod Cl 1,000 mls @ 75 mls/hr 01/09/17 10:45 16:44 D5-1/2ns+20 Meq Kcl - IV 75 mls/hr ASDIR TERRY Administration Dopamine HCl/Dextrose 250 mls @ 9.026 mls/hr 01/10/17 14:15 01/11/17 03:37 Dopamine 400 Mg/D5w - IVPB 5 mcg/kg/min TITR TERRY Titration Protocol 5 MCG/KG/MIN Pantoprazole Sodium 100 mls @ 200 mls/hr 01/11/17 10:00 Protonix 40mg Ivpb (Pre-Docked) IVPB DAILY TERRY Lactobacillus Acidophilus 1 tab 01/08/17 10:00 01/10/17 16:41 Bacid - PO Not Given DAILY TERRY Loratadine 10 mg 01/08/17 10:00 01/10/17 16:41 Claritin - PO Not Given DAILY TERRY Mirtazapine 15 mg 01/08/17 22:00 01/10/17 21:27 Remeron - PO Not Given HS TERRY Multivitamins/Minerals/Vitamin C 1 tab 01/08/17 10:00 01/10/17 16:42 Tab-A-Vit - PO Not Given DAILY TERRY ASSESSMENT/PLAN: 82 yr old woman with afib (on xarelto) hx of [place], s/p AICD placement, hx of GIB< s/p trach transferred from [facility] due to fevers, black tarry stool, admitted to ICU for hypotension requiring pressors and UTI. GI Discussed with Dr. Martin - can feed her, no Gi intervention at this time - Ag&toxin pending for c.diff testing famotadine IVPB BID Cardiovascular hypotension/bradycardia - bradycardia improved this morning, with HR in the 70-80's today - BP improved today, off pressors - IVF stopped - new effusion in left lower lobe on chest xray hold oral anticoagulation with xarelto since patient is in NSR, and having FOBT + stools. Afib, currently in sinus, rate controlled echo 04/19/2016 with normal LV and RV function consult: Dr. ellsworth discussed with Pulmonary ventolin prn q6hr and duonebs qidr terry claritin 10mg daily po PMV ordered, assessed by Gloria Syed ID Providencia Stuartii sensitive to rocephin 1gm rocephin qdaily - day [address] Suarez hematology normocytic anemia - concern for acute gi loss - iron studies; iron deficiency anemia with high ferritin - continue to trend h/h Renal hypophosphotemia - replete IVPB hypokalemia - replete with IVPB Neurological remeron 15mg po HS Diet - soft with thin liquids, assessed by gloria syed Dvt - SCD's Code status: DNR Dispo - if stable off pressors, consider transfer to med/surg in the AM, to discuss restarting xarelto with cardiolgy/GI/PCP regarding risks vs benefit Visit type - Emergency Visit Emergency Visit: No - New Patient This patient is new to me today: No - Critical Care Critical Care patient: Yes Total Critical Care Time (in minutes): 36 Critical Care Statement: The care of this patient involved high complexity decision making to prevent further life threatening deterioration of the patient 's condition and/or to evalute & treat vital organ system(s) failure or risk of failure.
[2017-01-11 07:50] LABS: PHOSPHOROUS 1.1 mg/dL (2.5-4.9)
--- NOTE | 2017-01-11 07:52 | PN ---
Progress Note (short form) - Note Progress Note: ID Antibiotics switched to Ceftriaxone based on final urine culture She appears stable alert and in No distress Selected Entries 01/11/17 01/11/17 06:00 07:18 Temperature 98.1 F Pulse Rate 66 Respiratory 14 Rate Blood Pressure 101/51 Ventilator dependent with tracheostomy Microbiology 01/08/17 04:00 Urine - Urine - Catheterized Urine Culture - Final Providencia Stuartii 01/08/17 22:02 Blood - Peripheral Venous Blood Culture - Preliminary NO GROWTH OBTAINED AFTER 48 HOURS, INCUBATION TO CONTINUE FOR 3 DAYS. 01/08/17 22:02 Blood - Peripheral Venous Blood Culture - Preliminary NO GROWTH OBTAINED AFTER 48 HOURS, INCUBATION TO CONTINUE FOR 3 DAYS. Laboratory Tests 01/08/17 01/11/17 04:14 05:20 WBC 8.7 Hgb 9.7 L Hct 30.3 L Plt Count Pending Ur Leukocyte Esterase Trace H Urine RBC 3549 Urine WBC 772 Urine Bacteria Many Assessment Sepsis syndrome resolving Chronic ventilator dependency Urinary retension History of MDRO Providentia UTI Plan Continue antibiotic treatment as ordered Alfred GOMEZ
[2017-01-11 08:05] LABS: MEAN PLT VOLUME 9.2 fl (7.5-11.1); PLATELET COUNT 135 K/MM3 (134-434)
[2017-01-11 08:06] LABS: PLATELET ESTIMATE ADEQUATE (NORMAL)
[2017-01-11] MEDS ORDERED: POTASSIUM PHOSPHATE 15 MM in SODIUM CHLORIDE 250 ML IVPB ONE (08:16)
[2017-01-11] MEDS ORDERED: POTASSIUM PHOSPHATE 21 MM in SODIUM CHLORIDE 250 ML IVPB ONE (08:20)
[2017-01-11] MEDS: cefTRIAXone 1 GM/50 ML BAG (PRE-DOCKED) IVPB SCH (09:52)
[2017-01-11] MEDS: FERROUS SO4 325 MG TABLET (FP) PO SCH ×2 (09:54→21:12)
[2017-01-11] MEDS: AMINO ACIDS/PROTEIN HYDROLYS 30 ML LIQUID.PKT PO SCH ×2 (09:54→21:11)
[2017-01-11] MEDS: LACTOBACILLUS ACIDOPHILUS 1 EACH TAB (FP) PO SCH (09:54)
[2017-01-11] MEDS: MULTIVITAMINS (DAILY MVI) TABLET (FP) PO SCH (09:54)
[2017-01-11] MEDS: LORATADINE 10 MG TABLET PO SCH (09:54)
[2017-01-11] MEDS: ASCORBIC ACID 500 MG TABLET (FP) PO SCH (09:55)
[2017-01-11] MEDS ORDERED: PANTOPRAZOLE SODIUM 100 ML IVPB SCH (10:00)
--- NOTE | 2017-01-11 11:46 | PN ---
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 Pt trialed on CPAP this am with difficulty reported. Now stable on A/C. Pt was on A/C and soft diet/thin liquids at [place]. She had orders for PMVhowever, per her son, she "panicked" and did not use it often. She has an #8 Portex trach. Brisk swallow with overtly good tolerance of puree/thin. Pt is verbal, and able to converse in here and now. Forgetful and not oriented. Case discussed with ICU team. Palliative care consult placed regarding pt's wishes. Suggest: soft, easy to chew, cohesive foods. Thin liquids. Supplements as indicated.
--- NOTE | 2017-01-11 11:55 | CONSULT ---
Passy-Nikki Valve Eval - Assessment Prior to PMV Placement Patient and/or family educated re PMV: Yes Mental Status: Awake, Alert, Attempting to Communicate O2 Sat by Pulse Oximetry (%): 10 Secretions: Small Amount Patient on Ventilator: Yes Suctioned: Yes Trach Type: Portex Trach Size: 8.0 Inner Cannula Removed: No Cuff Status: Inflated Passy-Nikki Valve in Place - Speech Characteristics Able to Phonate with PMV in place: Yes Voice Loudness: Mildly Soft/Quiet Voice Pitch: Excessive Variation Voice Phonatory-based Quality: Normal, Hoarse (variation) Speech Clarity: < 50% Nasal Resonance: Normal Articulation: Precise Rate of Speech: Intact Voice, Other Observations: Inadequate Breath Support (intermittent) - Assessment with PMV in Place O2 Sat by Pulse Oximetry (%): 100 Change in Mental Status with PMV in Place: No Able to Manage Secretions: Yes Length of time with PMV in place: 13 min Additional comments: Pt's voice varied signifificantly from dysphonia/hypophonia to euphonic with trach tubing support given. Pt has an #8 Portex which generally is too large for air to pass arounf the trach and reach the vocal cords. Additionally, pt's son reports that the pt used to "panic" when on PMV at [place]. I suspect this may be related to impaired ability to air around large trach. PMV is a 1 way valve, with inability to back through trach/vent, with cuff deflated, changing airflow up and out of her mouth. - Recommendations Recommendations: Monitor Pulse Ox PMV on, Supervision while PMV on, Other ( Careful use of PMV for short periods only. I suspect trach size ideally should be downsized for safe/comfortable use of PMV.)
--- NOTE | 2017-01-11 12:59 | PN ---
Teaching Attending Note Name of Resident: Jose Luna ATTENDING PHYSICIAN STATEMENT I saw and evaluated the patient. I reviewed the resident's note and discussed the case with the resident. I agree with the resident's findings and plan as documented. SUBJECTIVE: Patient seen and examined in the ICU. Awake and responsive. Remains on low dose Dopamine for hemodynamic support. Intake & Output 01/08/17 01/09/17 01/10/17 01/11/17 23:59 23:59 23:59 23:59 Intake Total 3450 904 3065 1008 Balance 3450 904 3065 1008 Weight 96 lb 9 oz 106 lb 0.677 oz 106 lb 2 oz 107 lb 8 oz Last Vital Signs Temp Pulse Resp BP Pulse Ox 98.1 F 87 22 121/57 100 01/11/17 06:00 01/11/17 10:32 01/11/17 12:04 01/11/17 09:57 01/11/17 11:56 Active Medications Acetaminophen (Tylenol -) 650 mg PO Q4H PRN PRN Reason: PAIN OR FEVER Last Admin: 01/08/17 17:44 Dose: 650 mg Albuterol Sulfate (Ventolin 0.083% Nebulizer Soln -) 1 amp NEB Q6H PRN PRN Reason: SHORT OF BREATH/WHEEZING Albuterol/Ipratropium (Duoneb -) 1 amp NEB QIDR BRE[facility] Last Admin: 01/11/17 12:14 Dose: 1 amp Amino Acids (Prosource No Carb Liquid Pkt) 30 ml PO BID [facility] Last Admin: 01/11/17 09:54 Dose: Not Given Artificial Tears (Artificial Tears) 1 drop OU BID PRN PRN Reason: DRY EYES Last Admin: 01/10/17 10:33 Dose: 1 drop Ascorbic Acid (Vitamin C -) 500 mg PO DAILY [facility] Last Admin: 01/11/17 09:55 Dose: Not Given Atorvastatin Calcium (Lipitor -) 10 mg PO HS [facility] Last Admin: 01/10/17 21:27 Dose: Not Given Bacitracin (Bacitracin -) 1 applic TP TID [facility] Last Admin: 01/11/17 06:03 Dose: 1 applic Ceftriaxone Sodium (Rocephin 1gm Ivpb (Pre-Docked)) 1 gm IVPB DAILY [facility] PRN Reason: Protocol Last Admin: 01/11/17 09:52 Dose: 1 gm Chlorhexidine Gluconate (Peridex -) 15 ml MM BID [facility] Last Admin: 01/10/17 21:15 Dose: 15 ml Chlorhexidine Gluconate (Hibiclens For Decolonization -) 1 applic TP [facility] Last Admin: 01/10/17 21:15 Dose: 1 applic Docusate Sodium (Colace -) 300 mg PO HS [facility] Last Admin: 01/10/17 21:27 Dose: Not Given Ferrous Sulfate (Feosol -) 325 mg PO BID [facility] Last Admin: 01/11/17 09:54 Dose: Not Given Potassium Chloride/Dextrose/Sod Cl (D5-1/2ns+20 Meq Kcl -) 1,000 mls @ 75 mls/ hr IV ASDIR [facility] Last Admin: 01/10/17 16:44 Dose: 75 mls/hr Pantoprazole Sodium (Protonix 40mg Ivpb (Pre-Docked)) 100 mls @ 200 mls/hr IVPB DAILY [facility] Last Admin: 01/11/17 09:51 Dose: 200 mls/hr Lactobacillus Acidophilus (Bacid -) 1 tab PO DAILY [facility] Last Admin: 01/11/17 09:54 Dose: Not Given Loratadine (Claritin -) 10 mg PO DAILY [facility] Last Admin: 01/11/17 09:54 Dose: Not Given Mirtazapine (Remeron -) 15 mg PO [facility] Last Admin: 01/10/17 21:27 Dose: Not Given Multivitamins/Minerals/Vitamin C (Tab-A-Vit -) 1 tab PO DAILY [facility] Last Admin: 01/11/17 09:54 Dose: Not Given Constitutional: Yes: Awake on AC Mode of vent Eyes: Yes: PERRL Neck: Yes: Trachea Midline, Other (trach c/d/i) Cardiovascular: Yes: Regular Rate and Rhythm, S1, S2 Respiratory: Yes: Clear, Mechanically Ventilated Gastrointestinal: Yes: Normal Bowel Sounds, Soft Extremities: Yes: WNL Edema: No Labs: Laboratory Results - last 24 hr 01/10/17 01/10/17 01/11/17 05:20 15:12 05:20 WBC 8.7 RBC 3.60 Hgb 9.7 L Hct 30.3 L MCV 84.2 MCHC 31.9 L RDW 16.9 H Plt Count 135 MPV 9.2 Neutrophils % 74.2 Lymphocytes % 11.9 D Monocytes % 9.5 Eosinophils % 3.6 D Basophils % 0.8 Platelet Estimate Adequate Platelet Comment No clumping noted Sodium Potassium Chloride Carbon Dioxide Anion Gap BUN Creatinine POC Glucometer 153.15183 Random Glucose Calcium Phosphorus Magnesium Iron 17 L TIBC 130 L Iron Saturation 13 L Blood Type Antibody Screen 01/11/17 01/11/17 05:20 07:00 WBC RBC Hgb Hct MCV MCHC RDW Plt Count MPV Neutrophils % Lymphocytes % Monocytes % Eosinophils % Basophils % Platelet Estimate Platelet Comment Sodium 147 H Potassium 3.2 L Chloride 115 H Carbon Dioxide 26 D Anion Gap 6 L BUN 14 D Creatinine 0.4 L POC Glucometer Random Glucose 107 H D Calcium 7.6 L Phosphorus 1.1 L* Magnesium 2.0 Iron TIBC Iron Saturation Blood Type A POSITIVE Antibody Screen Negative Problem List - Problems (1) Altered mental status Code(s): R41.82 - ALTERED MENTAL STATUS, UNSPECIFIED (2) Dehydration Code(s): E86.0 - DEHYDRATION (3) Sepsis Code(s): A41.9 - SEPSIS, UNSPECIFIED ORGANISM (4) UTI (urinary tract infection) Code(s): N39.0 - URINARY TRACT INFECTION, SITE NOT SPECIFIED Qualifiers: (5) COPD (chronic obstructive pulmonary disease) Code(s): J44.9 - CHRONIC OBSTRUCTIVE PULMONARY DISEASE, UNSPECIFIED (6) Chronic respiratory failure Code(s): J96.10 - CHRONIC RESPIRATORY FAILURE, UNSP W HYPOXIA OR HYPERCAPNIA Qualifiers: Respiratory failure complication: hypercapnia Qualified Code(s): J96.12 - Chronic respiratory failure with hypercapnia (7) Fever Code(s): R50.9 - FEVER, UNSPECIFIED Assessment/Plan ABX per ID AC Mode vent Follow CBC Normal transfusion thresholds Wean pressors D/C IVF SCDS GI prophylaxis Trial PMV Dr Medina Critical care time spent in reviewing chart, evaluating patient and formulating plan 35 min
[2017-01-11] MEDS: CHLORHEXIDINE GLUCONATE 0.12% 15ML CUP MM SCH ×3 (13:27→21:13)
--- NOTE | 2017-01-11 18:23 | PN ---
Progress Note, Physician Chief Complaint: UTI History of Present Illness: Pt NPO for GI w/u. Pt was on soft diet, thin liquid at [place]. She had a PMV ordered for daily use. Mouthing words to me. Awake,cooperative and interactive. Baseline confusion. ORIGINALLY CAME IN FOR A UTI, BECAME HYPOTENSIVE, HER LACTIC ACID WAS HIGH, SEPTIC? OR SECONDARY TO ALBUTEROL? BC NEGATIVE, UC CONFIRMED UTI, COMFORTABLE IN BED ON MECH EVNT VIA TRACH, ALERT, ON IV ABX. ON VASOPRESSIN - Current Medication List Current Medications: Active Medications Acetaminophen (Tylenol -) 650 mg PO Q4H PRN PRN Reason: PAIN OR FEVER Last Admin: 01/08/17 17:44 Dose: 650 mg Albuterol Sulfate (Ventolin 0.083% Nebulizer Soln -) 1 amp NEB Q6H PRN PRN Reason: SHORT OF BREATH/WHEEZING Albuterol/Ipratropium (Duoneb -) 1 amp NEB QIDR [facility] Last Admin: 01/11/17 17:40 Dose: 1 amp Amino Acids (Prosource No Carb Liquid Pkt) 30 ml PO BID [facility] Last Admin: 01/11/17 09:54 Dose: Not Given Artificial Tears (Artificial Tears) 1 drop OU BID PRN PRN Reason: DRY EYES Last Admin: 01/10/17 10:33 Dose: 1 drop Ascorbic Acid (Vitamin C -) 500 mg PO DAILY [facility] Last Admin: 01/11/17 09:55 Dose: Not Given Atorvastatin Calcium (Lipitor -) 10 mg PO [facility] Last Admin: 01/10/17 21:27 Dose: Not Given Bacitracin (Bacitracin -) 1 applic TP TID [facility] Last Admin: 01/11/17 13:42 Dose: Not Given Ceftriaxone Sodium (Rocephin 1gm Ivpb (Pre-Docked)) 1 gm IVPB DAILY [facility] PRN Reason: Protocol Last Admin: 01/11/17 09:52 Dose: 1 gm Chlorhexidine Gluconate (Peridex -) 15 ml MM BID [facility] Last Admin: 01/11/17 13:41 Dose: 15 ml Chlorhexidine Gluconate (Hibiclens For Decolonization -) 1 applic TP HS [facility] Last Admin: 01/10/17 21:15 Dose: 1 applic Docusate Sodium (Colace -) 300 mg PO [facility] Last Admin: 01/10/17 21:27 Dose: Not Given Ferrous Sulfate (Feosol -) 325 mg PO BID [facility] Last Admin: 01/11/17 09:54 Dose: Not Given Famotidine/Sodium Chloride (Pepcid 20 Mg Premixed Ivpb -) 50 mls @ 100 mls/hr IVPB BID [facility] Lactobacillus Acidophilus (Bacid -) 1 tab PO DAILY [facility] Last Admin: 01/11/17 09:54 Dose: Not Given Loratadine (Claritin -) 10 mg PO DAILY [facility] Last Admin: 01/11/17 09:54 Dose: Not Given Mirtazapine (Remeron -) 15 mg PO HS [facility] Last Admin: 01/10/17 21:27 Dose: Not Given Multivitamins/Minerals/Vitamin C (Tab-A-Vit -) 1 tab PO DAILY [facility] Last Admin: 01/11/17 09:54 Dose: Not Given - Objective Vital Signs: Vital Signs Temperature 98.7 F 01/11/17 18:11 Pulse Rate 92 H 01/11/17 18:00 Respiratory Rate 18 01/11/17 18:09 Blood Pressure 168/93 01/11/17 18:00 O2 Sat by Pulse Oximetry (%) 100 01/11/17 11:56 Constitutional: Yes: Well Nourished, No Distress, Calm Cardiovascular: Yes: Regular Rate and Rhythm Respiratory: Yes: Mechanically Ventilated Gastrointestinal: Yes: Normal Bowel Sounds Edema: No Peripheral Pulses WNL: Yes Labs: CBC, BMP 01/11/17 05:20 01/11/17 05:20 INR, PTT INR 1.30 (0.82-1.09) H 01/08/17 11:30 Problem List - Problems (1) Anemia Assessment/Plan: STOOL GUAIAC NEGATIVE, CHECK IRON STUDIES, REPEAT GUAIAC POSITIVE, MONITOR H/H Code(s): D64.9 - ANEMIA, UNSPECIFIED (2) UTI (urinary tract infection) Code(s): N39.0 - URINARY TRACT INFECTION, SITE NOT SPECIFIED Qualifiers: (3) Chronic respiratory failure Assessment/Plan: MECHANICALLY VENTILATED WITH PASSY YANG VALVE Code(s): J96.10 - CHRONIC RESPIRATORY FAILURE, UNSP W HYPOXIA OR HYPERCAPNIA Qualifiers: Qualified Code(s): J96.12 - Chronic respiratory failure with hypercapnia Assessment/Plan ON MECHANICAL VENT, COMFORTABLE. ID CONSULT IV ABX TITRATED OFF VASOPRESSIN IVF REPLENISH POTASSIUM MONITOR LABS REPEAT GUAIAC POSITIVE GI ALREADY ON THE CASE,CLEARED BY SPEECH TO START PO INTAKE WITH PASSY YANG VALVE CDIFF CULTURES PENDING MONITOR LABS, IRON STUDIES INDICATE ARNOL, LIKELY DUE TO ACUTE BLOOD LOSS SCD'S FOR DVT PROPHYLAXIS
[2017-01-11] MEDS: D5-1/2NS+20 MEQ KCL - 1,000 ML IV SCH (19:50)
[2017-01-11] MEDS: KCL 10 MEQ IVPB 100 ML IVPB SCH (19:51)
[2017-01-11] MEDS: DOCUSATE SODIUM 100 MG CAPSULE (FP) PO SCH (21:11)
[2017-01-11] MEDS: ATORVASTATIN CA 10 MG TABLET (FP) PO SCH (21:11)
[2017-01-11] MEDS: MIRTAZAPINE 15 MG TABLET (FP) PO SCH (21:12)
[2017-01-11] MEDS: CHLORHEXIDINE GLUCONATE 4% CLEANSER FOR DECOLONIZATION TP SCH (21:13)
[2017-01-12] MEDS: BACITRACIN 15 GM TUBE TOPICAL OINTMENT TP SCH ×3 (05:16→22:00)
[2017-01-12 06:35] LABS: BASOPHIL 0.4 % (0-2.0); EOSINOPHIL 3.2 % (0-4.5); MCH 26.7 pg (25.7-33.7); MEAN CELL VOLUME 83.5 fl (80-96); MEAN PLT VOLUME 8.6 fl (7.5-11.1); NEUTROPHILS 76.1 % (42.8-82.8); PLATELET COUNT 171 K/MM3 (134-434); WHITE BLOOD COUNT 8.7 K/mm3 (4.0-10.0)
[2017-01-12] MEDS: ALBUTEROL SO4 2.5/IPRATROPIUM 0.5 INH SOL 3 ML VIAL.NEB. NEB SCH ×3 (06:46→16:50)
[2017-01-12 06:56] LABS: ALBUMIN 2.8 g/dl (3.4-5.0); ANION GAP 8 (8-16); BILIRUBIN,TOTAL 0.5 mg/dL (0.2-1.0); CALCIUM 8.2 mg/dL (8.5-10.1); CO2 30 mmol/L (21-32); CREATININE 0.4 mg/dL (0.55-1.02); GLUCOSE,RANDOM 79 mg/dL (74-106); MAGNESIUM 1.9 mg/dL (1.8-2.4); PHOSPHOROUS 1.5 mg/dL (2.5-4.9); SGOT/AST 18 U/L (15-37); SGPT/ALT 18 U/L (12-78); TOT PROT 6.4 g/dl (6.4-8.2)
[2017-01-12 06:57] LABS: ALK PHOS 83 U/L (45-117)
--- NOTE | 2017-01-12 07:48 | PN ---
Progress Note, Physician Chief Complaint: ID Ceftriaxone for Sepsis with UTI Now on Ceftriaxone Flagyl added per GI Dr Veronica Jade - Current Medication List Current Medications: Active Medications Acetaminophen (Tylenol -) 650 mg PO Q4H PRN PRN Reason: PAIN OR FEVER Last Admin: 01/08/17 17:44 Dose: 650 mg Albuterol Sulfate (Ventolin 0.083% Nebulizer Soln -) 1 amp NEB Q6H PRN PRN Reason: SHORT OF BREATH/WHEEZING Albuterol/Ipratropium (Duoneb -) 1 amp NEB QIDR [facility] Last Admin: 01/12/17 06:46 Dose: 1 amp Amino Acids (Prosource No Carb Liquid Pkt) 30 ml PO BID [facility] Last Admin: 01/11/17 21:11 Dose: 30 ml Artificial Tears (Artificial Tears) 1 drop OU BID PRN PRN Reason: DRY EYES Last Admin: 01/10/17 10:33 Dose: 1 drop Ascorbic Acid (Vitamin C -) 500 mg PO DAILY [facility] Last Admin: 01/11/17 09:55 Dose: Not Given Atorvastatin Calcium (Lipitor -) 10 mg PO HS [facility] Last Admin: 01/11/17 21:11 Dose: 10 mg Bacitracin (Bacitracin -) 1 applic TP TID [facility] Last Admin: 01/12/17 05:16 Dose: 1 applic Ceftriaxone Sodium (Rocephin 1gm Ivpb (Pre-Docked)) 1 gm IVPB DAILY [facility] PRN Reason: Protocol Last Admin: 01/11/17 09:52 Dose: 1 gm Chlorhexidine Gluconate (Peridex -) 15 ml MM BID [facility] Last Admin: 01/11/17 21:13 Dose: 15 ml Chlorhexidine Gluconate (Hibiclens For Decolonization -) 1 applic TP HS [facility] Last Admin: 01/11/17 21:13 Dose: 1 applic Docusate Sodium (Colace -) 300 mg PO HS [facility] Last Admin: 01/11/17 21:11 Dose: 300 mg Ferrous Sulfate (Feosol -) 325 mg PO BID [facility] Last Admin: 01/11/17 21:12 Dose: 325 mg Famotidine/Sodium Chloride (Pepcid 20 Mg Premixed Ivpb -) 50 mls @ 100 mls/hr IVPB BID [facility] Potassium Phosphate 30 mm/ (Sodium Chloride) 260 mls @ 43.33 mls/hr IVPB ONCE ONE PRN Reason: 30 MM/6 HR Stop: 01/12/17 16:00 Lactobacillus Acidophilus (Bacid -) 1 tab PO DAILY [facility] Last Admin: 01/11/17 09:54 Dose: Not Given Loratadine (Claritin -) 10 mg PO DAILY [facility] Last Admin: 01/11/17 09:54 Dose: Not Given Mirtazapine (Remeron -) 15 mg PO HS [facility] Last Admin: 01/11/17 21:12 Dose: 15 mg Multivitamins/Minerals/Vitamin C (Tab-A-Vit -) 1 tab PO DAILY [facility] Last Admin: 01/11/17 09:54 Dose: Not Given - Objective Vital Signs: Vital Signs Temperature 98.2 F 01/12/17 06:00 Pulse Rate 93 H 01/12/17 06:00 Respiratory Rate 16 01/12/17 06:45 Blood Pressure 149/91 01/12/17 06:00 O2 Sat by Pulse Oximetry (%) 100 01/11/17 11:56 Constitutional: Yes: No Distress Neck: Yes: Other (Trach) Cardiovascular: Yes: S1, S2 Respiratory: Yes: WNL, Regular, CTA Bilaterally, Diminished Gastrointestinal: Yes: Soft. No: Tenderness Edema: No Labs: CBC, BMP 01/12/17 05:20 01/12/17 05:20 INR, PTT INR 1.30 (0.82-1.09) H 01/08/17 11:30 Assessment/Plan Microbiology 01/10/17 17:45 Stool Clostridium difficile Antigen (JUNO) - Final 01/10/17 17:45 Stool Clostridium difficile Toxin Assay - Final 01/08/17 04:00 Urine - Urine - Catheterized Urine Culture - Final Providencia Stuartii 01/08/17 22:02 Blood - Peripheral Venous Blood Culture - Preliminary NO GROWTH OBTAINED AFTER 72 HOURS, INCUBATION TO CONTINUE FOR 2 DAYS. 01/08/17 22:02 Blood - Peripheral Venous Blood Culture - Preliminary NO GROWTH OBTAINED AFTER 72 HOURS, INCUBATION TO CONTINUE FOR 2 DAYS. Laboratory Tests 01/08/17 01/12/17 01/12/17 22:03 05:20 05:20 WBC 8.7 Hgb 11.3 D Hct 35.3 D Plt Count 171 D BUN 7 D Creatinine 0.4 L Lactic Acid 1.4 Assessment Fever with urinary tract infection stable on Ceftriaxone day 4 therapy Ventilator dependence GI bleeding HCT stable Plan Would stop Ceftriaxone after tomorrow dose temp on admission 100.4 Stop flagyl C diff negative Alfred GOMEZ
--- NOTE | 2017-01-12 09:16 | PN ---
Progress Note, Physician History of Present Illness: AWAKE IN ICU NO COMPLAINTS THIS AM - Current Medication List Current Medications: Active Medications Acetaminophen (Tylenol -) 650 mg PO Q4H PRN PRN Reason: PAIN OR FEVER Last Admin: 01/08/17 17:44 Dose: 650 mg Albuterol Sulfate (Ventolin 0.083% Nebulizer Soln -) 1 amp NEB Q6H PRN PRN Reason: SHORT OF BREATH/WHEEZING Albuterol/Ipratropium (Duoneb -) 1 amp NEB QIDR [facility] Last Admin: 01/12/17 06:46 Dose: 1 amp Amino Acids (Prosource No Carb Liquid Pkt) 30 ml PO BID [facility] Last Admin: 01/11/17 21:11 Dose: 30 ml Artificial Tears (Artificial Tears) 1 drop OU BID PRN PRN Reason: DRY EYES Last Admin: 01/10/17 10:33 Dose: 1 drop Ascorbic Acid (Vitamin C -) 500 mg PO DAILY [facility] Last Admin: 01/11/17 09:55 Dose: Not Given Atorvastatin Calcium (Lipitor -) 10 mg PO [facility] Last Admin: 01/11/17 21:11 Dose: 10 mg Bacitracin (Bacitracin -) 1 applic TP TID [facility] Last Admin: 01/12/17 05:16 Dose: 1 applic Chlorhexidine Gluconate (Peridex -) 15 ml MM BID [facility] Last Admin: 01/11/17 21:13 Dose: 15 ml Chlorhexidine Gluconate (Hibiclens For Decolonization -) 1 applic TP [facility] Last Admin: 01/11/17 21:13 Dose: 1 applic Docusate Sodium (Colace -) 300 mg PO [facility] Last Admin: 01/11/17 21:11 Dose: 300 mg Ferrous Sulfate (Feosol -) 325 mg PO BID [facility] Last Admin: 01/11/17 21:12 Dose: 325 mg Famotidine/Sodium Chloride (Pepcid 20 Mg Premixed Ivpb -) 50 mls @ 100 mls/hr IVPB BID [facility] Potassium Phosphate 30 mm/ (Sodium Chloride) 260 mls @ 43.33 mls/hr IVPB ONCE ONE PRN Reason: 30 MM/6 HR Stop: 01/12/17 16:00 Lactobacillus Acidophilus (Bacid -) 1 tab PO DAILY [facility] Last Admin: 01/11/17 09:54 Dose: Not Given Loratadine (Claritin -) 10 mg PO DAILY [facility] Last Admin: 01/11/17 09:54 Dose: Not Given Mirtazapine (Remeron -) 15 mg PO [facility] Last Admin: 01/11/17 21:12 Dose: 15 mg Multivitamins/Minerals/Vitamin C (Tab-A-Vit -) 1 tab PO DAILY [facility] Last Admin: 01/11/17 09:54 Dose: Not Given - Objective Vital Signs: Vital Signs Temperature 98.2 F 01/12/17 06:00 Pulse Rate 93 H 01/12/17 06:00 Respiratory Rate 16 01/12/17 06:45 Blood Pressure 149/91 01/12/17 06:00 O2 Sat by Pulse Oximetry (%) 100 01/11/17 11:56 Cardiovascular: Yes: S1, S2 Respiratory: Yes: Mechanically Ventilated Gastrointestinal: Yes: Normal Bowel Sounds, Soft Labs: CBC, BMP 01/12/17 05:20 01/12/17 05:20 INR, PTT INR 1.30 (0.82-1.09) H 01/08/17 11:30 Problem List - Problems (1) UGIB (upper gastrointestinal bleed) Assessment/Plan: -R/O BLEED--HEM POS REPEAT GUAIAC POSITIVE GI ALREADY ON THE CASE,CLEARED BY SPEECH TO START PO INTAKE WITH PASSY YANG VALVE MONITOR LABS, IRON STUDIES INDICATE ARNOL, LIKELY DUE TO ACUTE BLOOD LOSS Laboratory Tests 01/08/17 01/09/17 01/10/17 11:30 05:15 05:20 Hgb 12.2 9.8 L D 9.6 L FOLLOW LABS PPI GI CONSULT NOTED Code(s): K92.2 - GASTROINTESTINAL HEMORRHAGE, UNSPECIFIED (2) PAF (paroxysmal atrial fibrillation) Assessment/Plan: HOLD AC--POSSIBLE GI BLEED CARDIO NOTED--RESUME AC ONCE GI ISSUES RESOLVE Code(s): I48.0 - PAROXYSMAL ATRIAL FIBRILLATION (3) Chronic respiratory failure Assessment/Plan: PULM CONSULT ON MECHANICAL VENT, COMFORTABLE--TRIAL OF WEANING Code(s): J96.10 - CHRONIC RESPIRATORY FAILURE, UNSP W HYPOXIA OR HYPERCAPNIA Qualifiers: Qualified Code(s): J96.12 - Chronic respiratory failure with hypercapnia Assessment/Plan SEPSIS ID CONSULT IV ABX TITRATED OFF VASOPRESSIN IVF REPLENISH POTASSIUM MONITOR LABS CDIFF NEGATIVE SCD'S FOR DVT PROPHYLAXIS
[2017-01-12] MEDS ORDERED: ALPRAZolam 0.25 MG TABLET PO PRN (09:50)
[2017-01-12] MEDS ORDERED: POTASSIUM PHOSPHATE 30 MM in SODIUM CHLORIDE 250 ML IVPB ONE (10:00)
--- NOTE | 2017-01-12 11:44 | PN ---
Teaching Attending Note Name of Resident: Jose Luna ATTENDING PHYSICIAN STATEMENT I saw and evaluated the patient. I reviewed the resident's note and discussed the case with the resident. I agree with the resident's findings and plan as documented. SUBJECTIVE: Patient seen and examined in the ICU. Awake and responsive. Off pressors. Intake & Output 01/09/17 01/10/17 01/11/17 01/12/17 23:59 23:59 23:59 23:59 Intake Total 904 3065 2188 240 Balance 904 3065 2188 240 Weight 106 lb 0.677 oz 106 lb 2 oz 107 lb 8 oz 103 lb 11.2 oz Last Vital Signs Temp Pulse Resp BP Pulse Ox 98.2 F 108 H 23 149/91 97 01/12/17 06:00 01/12/17 10:36 01/12/17 09:05 01/12/17 06:00 01/12/17 10:36 Active Medications Acetaminophen (Tylenol -) 650 mg PO Q4H PRN PRN Reason: PAIN OR FEVER Last Admin: 01/08/17 17:44 Dose: 650 mg Albuterol Sulfate (Ventolin 0.083% Nebulizer Soln -) 1 amp NEB Q6H PRN PRN Reason: SHORT OF BREATH/WHEEZING Albuterol/Ipratropium (Duoneb -) 1 amp NEB QIDR [facility] Last Admin: 01/12/17 06:46 Dose: 1 amp Alprazolam (Xanax -) 0.25 mg PO Q8H PRN PRN Reason: ANXIETY Amino Acids (Prosource No Carb Liquid Pkt) 30 ml PO BID [facility] Last Admin: 01/11/17 21:11 Dose: 30 ml Apixaban (Eliquis -) 2.5 mg PO BID [facility] Artificial Tears (Artificial Tears) 1 drop OU BID PRN PRN Reason: DRY EYES Last Admin: 01/10/17 10:33 Dose: 1 drop Ascorbic Acid (Vitamin C -) 500 mg PO DAILY [facility] Last Admin: 01/11/17 09:55 Dose: Not Given Atorvastatin Calcium (Lipitor -) 10 mg PO HS [facility] Last Admin: 01/11/17 21:11 Dose: 10 mg Bacitracin (Bacitracin -) 1 applic TP TID [facility] Last Admin: 01/12/17 05:16 Dose: 1 applic Chlorhexidine Gluconate (Peridex -) 15 ml MM BID [facility] Last Admin: 01/11/17 21:13 Dose: 15 ml Chlorhexidine Gluconate (Hibiclens For Decolonization -) 1 applic TP [facility] Last Admin: 01/11/17 21:13 Dose: 1 applic Docusate Sodium (Colace -) 300 mg PO HS [facility] Last Admin: 01/11/17 21:11 Dose: 300 mg Ferrous Sulfate (Feosol -) 325 mg PO BID [facility] Last Admin: 01/11/17 21:12 Dose: 325 mg Famotidine/Sodium Chloride (Pepcid 20 Mg Premixed Ivpb -) 50 mls @ 100 mls/hr IVPB BID [facility] Potassium Phosphate 30 mm/ (Sodium Chloride) 260 mls @ 43.33 mls/hr IVPB ONCE ONE PRN Reason: 30 MM/6 HR Stop: 01/12/17 16:00 Lactobacillus Acidophilus (Bacid -) 1 tab PO DAILY [facility] Last Admin: 01/11/17 09:54 Dose: Not Given Loratadine (Claritin -) 10 mg PO DAILY [facility] Last Admin: 01/11/17 09:54 Dose: Not Given Mirtazapine (Remeron -) 15 mg PO [facility] Last Admin: 01/11/17 21:12 Dose: 15 mg Multivitamins/Minerals/Vitamin C (Tab-A-Vit -) 1 tab PO DAILY [facility] Last Admin: 01/11/17 09:54 Dose: Not Given Constitutional: Yes: Awake on AC Mode of vent Eyes: Yes: PERRL Neck: Yes: Trachea Midline, Other (trach c/d/i) Cardiovascular: Yes: Regular Rate and Rhythm, S1, S2 Respiratory: Yes: Clear, Mechanically Ventilated Gastrointestinal: Yes: Normal Bowel Sounds, Soft Extremities: Yes: WNL Edema: No Labs: Laboratory Results - last 24 hr 01/12/17 01/12/17 01/12/17 05:20 05:20 06:53 WBC 8.7 RBC 4.24 Hgb 11.3 D Hct 35.3 D MCV 83.5 MCHC 32.0 RDW 17.0 H Plt Count 171 D MPV 8.6 Neutrophils % 76.1 Lymphocytes % 11.1 Monocytes % 9.2 Eosinophils % 3.2 Basophils % 0.4 Sodium 148 H Potassium 3.2 L Chloride 110 H Carbon Dioxide 30 Anion Gap 8 BUN 7 D Creatinine 0.4 L Creat Clearance w eGFR > 60 POC Glucometer [phone] Random Glucose 79 D Calcium 8.2 L Phosphorus 1.5 L D Magnesium 1.9 Total Bilirubin 0.5 D AST 18 D ALT 18 D Alkaline Phosphatase 83 D Total Protein 6.4 D Albumin 2.8 L D Problem List - Problems (1) Altered mental status Code(s): R41.82 - ALTERED MENTAL STATUS, UNSPECIFIED (2) Dehydration Code(s): E86.0 - DEHYDRATION (3) Sepsis Code(s): A41.9 - SEPSIS, UNSPECIFIED ORGANISM (4) UTI (urinary tract infection) Code(s): N39.0 - URINARY TRACT INFECTION, SITE NOT SPECIFIED Qualifiers: (5) COPD (chronic obstructive pulmonary disease) Code(s): J44.9 - CHRONIC OBSTRUCTIVE PULMONARY DISEASE, UNSPECIFIED (6) Chronic respiratory failure Code(s): J96.10 - CHRONIC RESPIRATORY FAILURE, UNSP W HYPOXIA OR HYPERCAPNIA Qualifiers: Respiratory failure complication: hypercapnia Qualified Code(s): J96.12 - Chronic respiratory failure with hypercapnia (7) Fever Code(s): R50.9 - FEVER, UNSPECIFIED Assessment/Plan ABX per ID AC Mode vent Follow CBC Normal transfusion thresholds Monitor off IVF SCDS Trial PMV / Trach collar Dr Medina
[2017-01-12] MEDS: LACTOBACILLUS ACIDOPHILUS 1 EACH TAB (FP) PO SCH (11:57)
[2017-01-12] MEDS: ASCORBIC ACID 500 MG TABLET (FP) PO SCH (11:57)
[2017-01-12] MEDS: MULTIVITAMINS (DAILY MVI) TABLET (FP) PO SCH (11:57)
[2017-01-12] MEDS: FAMOTIDINE 20 MG/50 ML IVPB 50 ML IVPB SCH ×2 (11:58→21:24)
[2017-01-12] MEDS: AMINO ACIDS/PROTEIN HYDROLYS 30 ML LIQUID.PKT PO SCH ×2 (11:58→21:29)
[2017-01-12] MEDS: LORATADINE 10 MG TABLET PO SCH (11:58)
[2017-01-12] MEDS: FERROUS SO4 325 MG TABLET (FP) PO SCH ×2 (11:58→21:24)
[2017-01-12] MEDS: APIXABAN 2.5 MG TABLET PO SCH ×2 (11:58→21:24)
[2017-01-12] MEDS: CHLORHEXIDINE GLUCONATE 0.12% 15ML CUP MM SCH ×2 (11:59→22:00)
--- NOTE | 2017-01-12 16:45 | PN ---
Physical Exam: SUBJECTIVE: Patient seen and examined. wants to go home. poor memory. doesn't recall coming from custodial or that her son came to visit her in the hospital OBJECTIVE: Vital Signs Period Temp Pulse Resp BP Sys/Vera Pulse Ox Last 24 Hr 98.2 F-98.7 F 85-108 14-25 86-168/58-93 97-98 GENERAL: The patient is awake, alert, in no acute distress. EYES: PERRL, extraocular movements intact, sclera anicteric, conjunctiva pale. ENT:oropharynx clear without exudates, moist mucus membranes LUNGS: clear to auscultation, no wheezes, no crackles, no accessory muscle use. HEART: Regular rate and rhythm, S1, S2 without murmur, rub or gallop. ABDOMEN: Soft, nontender, nondistended, normoactive bowel sounds, no guarding. well-healed peg tube site in left upper quad EXTREMITIES: 2+ radial and dp pulses, warm, well-perfused, no edema. Laboratory Results - last 24 hr 01/12/17 01/12/17 01/12/17 05:20 05:20 06:53 WBC 8.7 RBC 4.24 Hgb 11.3 D Hct 35.3 D MCV 83.5 MCHC 32.0 RDW 17.0 H Plt Count 171 D MPV 8.6 Neutrophils % 76.1 Lymphocytes % 11.1 Monocytes % 9.2 Eosinophils % 3.2 Basophils % 0.4 Sodium 148 H Potassium 3.2 L Chloride 110 H Carbon Dioxide 30 Anion Gap 8 BUN 7 D Creatinine 0.4 L Creat Clearance w eGFR > 60 POC Glucometer [phone] Random Glucose 79 D Calcium 8.2 L Phosphorus 1.5 L D Magnesium 1.9 Total Bilirubin 0.5 D AST 18 D ALT 18 D Alkaline Phosphatase 83 D Total Protein 6.4 D Albumin 2.8 L D Active Medications Generic Name Dose Route Start Last Admin Trade Name Freq PRN Reason Stop Dose Admin Acetaminophen 650 mg 01/08/17 09:26 01/08/17 17:44 Tylenol - PO 650 mg Q4H PRN Administration PAIN OR FEVER Albuterol Sulfate 1 amp 01/09/17 14:30 Ventolin 0.083% Nebulizer Soln - NEB Q6H PRN SHORT OF BREATH/WHEEZING Albuterol/Ipratropium 1 amp 01/08/17 12:00 01/12/17 11:10 Duoneb - NEB 1 amp QIDR [facility] Administration Alprazolam 0.25 mg 01/12/17 09:50 Xanax - PO Q8H PRN ANXIETY Amino Acids 30 ml 01/08/17 10:00 01/12/17 11:58 Prosource No Carb Liquid Pkt PO 30 ml BID [facility] Administration Apixaban 2.5 mg 01/12/17 10:00 01/12/17 11:58 Eliquis - PO 2.5 mg BID [facility] Administration Artificial Tears 1 drop 01/08/17 09:48 01/10/17 10:33 Artificial Tears OU 1 drop BID PRN Administration DRY EYES Ascorbic Acid 500 mg 01/08/17 10:00 01/12/17 11:57 Vitamin C - PO 500 mg DAILY [facility] Administration Atorvastatin Calcium 10 mg 01/08/17 22:00 01/11/17 21:11 Lipitor - PO 10 mg HS [facility] Administration Bacitracin 1 applic 01/08/17 14:00 01/12/17 05:16 Bacitracin - TP 1 applic TID [facility] Administration Chlorhexidine Gluconate 15 ml 01/09/17 22:00 01/12/17 11:59 Peridex - MM 15 ml BID [facility] Administration Chlorhexidine Gluconate 1 applic 01/09/17 22:00 01/11/17 21:13 Hibiclens For Decolonization - TP 1 applic HS [facility] Administration Docusate Sodium 300 mg 01/08/17 22:00 01/11/17 21:11 Colace - PO 300 mg HS [facility] Administration Ferrous Sulfate 325 mg 01/08/17 10:00 01/12/17 11:58 Feosol - PO 325 mg BID [facility] Administration Famotidine/Sodium Chloride 50 mls @ 100 mls/hr 01/12/17 10:00 01/12/17 11:58 Pepcid 20 Mg Premixed Ivpb - IVPB 100 mls/hr BID [facility] Administration Potassium Chloride 100 mls @ 100 mls/hr 01/12/17 14:45 Potassium Chloride 10 Meq Premix Ivpb - IVPB 01/12/17 17:44 Q60M [facility] Lactobacillus Acidophilus 1 tab 01/08/17 10:00 01/12/17 11:57 Bacid - PO 1 tab DAILY [facility] Administration Loratadine 10 mg 01/08/17 10:00 01/12/17 11:58 Claritin - PO 10 mg DAILY [facility] Administration Mirtazapine 15 mg 01/08/17 22:00 01/11/17 21:12 Remeron - PO 15 mg HS [facility] Administration Multivitamins/Minerals/Vitamin C 1 tab 01/08/17 10:00 01/12/17 11:57 Tab-A-Vit - PO 1 tab DAILY [facility] Administration ASSESSMENT/PLAN: 82 yr old woman with afib (on xarelto) hx of ID, s/p AICD placement, hx of GIB< s/p trach transferred from custodial due to fevers, black tarry stool, admitted to ICU for hypotension requiring pressors and UTI. GI c.diff negative patient tolerating po, BM without blood famotadine IVPB BID Cardiovascular htn, off pressors, maintaining bp eliquis started for afib Afib, currently in sinus, rate controlled consult: Dr. ellsworth Pulmonary ventolin prn q6hr and duonebs qidr terry claritin 10mg daily po PMV ordered, assessed by Gloria Syed, pt is not tolerating cpap mode, AC vent dependent ID Providencia Stuartii sensitive to rocephin 1gm rocephin qdaily - 5 day course of IV abx to finish tomorrow 01/[address] Suarez hematology normocytic anemia - concern for acute gi loss - iron studies; iron deficiency anemia with high ferritin continue oral feosol Renal hypophosphotemia - replete IVPB hypokalemia - replete with IVPB Neurological remeron 15mg po HS Diet - soft with thin liquids, assessed by gloria syed Dvt - on eliquis Code status: DNR Dispo - if stable off pressors, consider transfer to med/surg, likely dc to custodial after bx completed and electrolytes repleted Visit type - Emergency Visit Emergency Visit: No - New Patient This patient is new to me today: No - Critical Care Critical Care patient: No
[2017-01-12] MEDS: KCL 10 MEQ IVPB 100 ML IVPB SCH ×2 (17:43→20:35)
[2017-01-12] MEDS: ATORVASTATIN CA 10 MG TABLET (FP) PO SCH (21:24)
[2017-01-12] MEDS: DOCUSATE SODIUM 100 MG CAPSULE (FP) PO SCH (21:25)
[2017-01-12] MEDS: MIRTAZAPINE 15 MG TABLET (FP) PO SCH (21:25)
[2017-01-12] MEDS: CHLORHEXIDINE GLUCONATE 4% CLEANSER FOR DECOLONIZATION TP SCH (21:29)
[2017-01-13] MEDS ORDERED: METOPROLOL TARTRATE 5 MG/5 ML VIAL ONE (01:30)
[2017-01-13] MEDS: ALBUTEROL SO4 2.5/IPRATROPIUM 0.5 INH SOL 3 ML VIAL.NEB. NEB SCH ×4 (05:30→19:12)
[2017-01-13] MEDS: BACITRACIN 15 GM TUBE TOPICAL OINTMENT TP SCH ×3 (07:00→22:44)
[2017-01-13 08:08] LABS: BASOPHIL 0.8 % (0-2.0); EOSINOPHIL 2.5 % (0-4.5); MCH 26.8 pg (25.7-33.7); MCHC 32.1 g/dl (32.0-36.0); MEAN CELL VOLUME 83.6 fl (80-96); MEAN PLT VOLUME 8.7 fl (7.5-11.1); NEUTROPHILS 74.7 % (42.8-82.8); PLATELET COUNT 178 K/MM3 (134-434); RDW 16.4 % (11.6-15.6); WHITE BLOOD COUNT 10.8 K/mm3 (4.0-10.0)
[2017-01-13 08:27] LABS: ALBUMIN 2.9 g/dl (3.4-5.0); ANION GAP 10 (8-16); CALCIUM 8.5 mg/dL (8.5-10.1); CO2 31 mmol/L (21-32); MAGNESIUM 1.7 mg/dL (1.8-2.4)
[2017-01-13 08:33] LABS: ALK PHOS 82 U/L (45-117); BILIRUBIN,TOTAL 0.7 mg/dL (0.2-1.0); CREATININE 0.4 mg/dL (0.55-1.02); PHOSPHOROUS 2.3 mg/dL (2.5-4.9); SGOT/AST 17 U/L (15-37); SGPT/ALT 15 U/L (12-78); TOT PROT 6.7 g/dl (6.4-8.2)
[2017-01-13 08:59] LABS: GLUCOSE,RANDOM 45 mg/dL (74-106)
[2017-01-13] MEDS ORDERED: DEXTROSE 50%-WATER 50 ML DISP.SYRIN ONE (09:04)
--- NOTE | 2017-01-13 10:15 | PN ---
Progress Note (short form) - Note Progress Note: Patient seen and examined in the ICU. Awake and responsive. Remains off pressors. Noted hypoglycemia (asymptomatic). Patient refusing to eat or take oral intake. Intake & Output 01/10/17 01/11/17 01/12/17 01/13/17 23:59 23:59 23:59 23:59 Intake Total 3065 2188 240 50 Balance 3065 2188 240 50 Weight 106 lb 2 oz 107 lb 8 oz 103 lb 11.2 oz 103 lb 11.2 oz Last Vital Signs Temp Pulse Resp BP Pulse Ox 98.4 F 105 H 22 85/43 97 01/13/17 06:00 01/13/17 08:00 01/13/17 09:09 01/13/17 08:00 01/12/17 10:36 Active Medications Acetaminophen (Tylenol -) 650 mg PO Q4H PRN PRN Reason: PAIN OR FEVER Last Admin: 01/08/17 17:44 Dose: 650 mg Albuterol Sulfate (Ventolin 0.083% Nebulizer Soln -) 1 amp NEB Q6H PRN PRN Reason: SHORT OF BREATH/WHEEZING Albuterol/Ipratropium (Duoneb -) 1 amp NEB QIDR [facility] Last Admin: 01/13/17 05:30 Dose: 1 amp Alprazolam (Xanax -) 0.25 mg PO Q8H PRN PRN Reason: ANXIETY Last Admin: 01/12/17 17:42 Dose: 0.25 mg Amino Acids (Prosource No Carb Liquid Pkt) 30 ml PO BID [facility] Last Admin: 01/12/17 21:29 Dose: 30 ml Apixaban (Eliquis -) 2.5 mg PO BID [facility] Last Admin: 01/12/17 21:24 Dose: 2.5 mg Artificial Tears (Artificial Tears) 1 drop OU BID PRN PRN Reason: DRY EYES Last Admin: 01/10/17 10:33 Dose: 1 drop Ascorbic Acid (Vitamin C -) 500 mg PO DAILY [facility] Last Admin: 01/12/17 11:57 Dose: 500 mg Atorvastatin Calcium (Lipitor -) 10 mg PO HS [facility] Last Admin: 01/12/17 21:24 Dose: 10 mg Bacitracin (Bacitracin -) 1 applic TP TID [facility] Last Admin: 01/13/17 07:00 Dose: 1 applic Chlorhexidine Gluconate (Peridex -) 15 ml MM BID [facility] Last Admin: 01/12/17 22:00 Dose: 15 ml Chlorhexidine Gluconate (Hibiclens For Decolonization -) 1 applic TP [facility] Last Admin: 01/12/17 21:29 Dose: 1 applic Docusate Sodium (Colace -) 300 mg PO HS [facility] Last Admin: 01/12/17 21:25 Dose: 300 mg Ferrous Sulfate (Feosol -) 325 mg PO BID [facility] Last Admin: 01/12/17 21:24 Dose: 325 mg Famotidine/Sodium Chloride (Pepcid 20 Mg Premixed Ivpb -) 50 mls @ 100 mls/hr IVPB BID [facility] Last Admin: 01/12/17 21:24 Dose: 100 mls/hr Lactobacillus Acidophilus (Bacid -) 1 tab PO DAILY [facility] Last Admin: 01/12/17 11:57 Dose: 1 tab Loratadine (Claritin -) 10 mg PO DAILY [facility] Last Admin: 01/12/17 11:58 Dose: 10 mg Mirtazapine (Remeron -) 15 mg PO [facility] Last Admin: 01/12/17 21:25 Dose: 15 mg Multivitamins/Minerals/Vitamin C (Tab-A-Vit -) 1 tab PO DAILY [facility] Last Admin: 01/12/17 11:57 Dose: 1 tab Constitutional: Yes: Awake on AC Mode of vent Eyes: Yes: PERRL Neck: Yes: Trachea Midline, Other (trach c/d/i) Cardiovascular: Yes: Regular Rate and Rhythm, S1, S2 Respiratory: Yes: Clear, Mechanically Ventilated Gastrointestinal: Yes: Normal Bowel Sounds, Soft Extremities: Yes: WNL Edema: No Labs: Laboratory Results - last 24 hr 01/13/17 01/13/17 01/13/17 05:10 05:10 06:40 WBC 10.8 H RBC 4.53 Hgb 12.1 Hct 37.8 MCV 83.6 MCHC 32.1 RDW 16.4 H Plt Count 178 MPV 8.7 Neutrophils % 74.7 Lymphocytes % 14.1 D Monocytes % 7.9 Eosinophils % 2.5 Basophils % 0.8 Sodium 141 Potassium 3.4 L Chloride 100 Carbon Dioxide 31 Anion Gap 10 BUN 4 L D Creatinine 0.4 L Creat Clearance w eGFR > 60 POC Glucometer [phone] Random Glucose 45 L* D Calcium 8.5 Phosphorus 2.3 L D Magnesium 1.7 L Total Bilirubin 0.7 D AST 17 ALT 15 Alkaline Phosphatase 82 Total Protein 6.7 Albumin 2.9 L 01/13/17 09:01 WBC RBC Hgb Hct MCV MCHC RDW Plt Count MPV Neutrophils % Lymphocytes % Monocytes % Eosinophils % Basophils % Sodium Potassium Chloride Carbon Dioxide Anion Gap BUN Creatinine Creat Clearance w eGFR POC Glucometer [phone] Random Glucose Calcium Phosphorus Magnesium Total Bilirubin AST ALT Alkaline Phosphatase Total Protein Albumin Problem List - Problems (1) Altered mental status Code(s): R41.82 - ALTERED MENTAL STATUS, UNSPECIFIED (2) Dehydration Code(s): E86.0 - DEHYDRATION (3) Sepsis Code(s): A41.9 - SEPSIS, UNSPECIFIED ORGANISM (4) UTI (urinary tract infection) Code(s): N39.0 - URINARY TRACT INFECTION, SITE NOT SPECIFIED Qualifiers: (5) COPD (chronic obstructive pulmonary disease) Code(s): J44.9 - CHRONIC OBSTRUCTIVE PULMONARY DISEASE, UNSPECIFIED (6) Chronic respiratory failure Code(s): J96.10 - CHRONIC RESPIRATORY FAILURE, UNSP W HYPOXIA OR HYPERCAPNIA Qualifiers: Respiratory failure complication: hypercapnia Qualified Code(s): J96.12 - Chronic respiratory failure with hypercapnia (7) Fever Code(s): R50.9 - FEVER, UNSPECIFIED Assessment/Plan Rocephin (to finish today) Replete K+ AC Mode vent Normal transfusion thresholds Monitor off IVF SCDS PMV / Trach collar as tolerated (has not been tolerating thus far ?Anxiety) P. care to discuss further GOC with patient/family Vent Floor Dr Medina
[2017-01-13] MEDS ORDERED: MAGNESIUM SULF 50% (8.12 MEQ/2 ML-1 GM VIAL) IVPB ONE (10:16)
[2017-01-13] MEDS: APIXABAN 2.5 MG TABLET PO SCH ×2 (10:48→22:43)
[2017-01-13] MEDS: MULTIVITAMINS (DAILY MVI) TABLET (FP) PO SCH (10:48)
[2017-01-13] MEDS: FERROUS SO4 325 MG TABLET (FP) PO SCH ×2 (10:48→22:42)
[2017-01-13] MEDS: LACTOBACILLUS ACIDOPHILUS 1 EACH TAB (FP) PO SCH (10:48)
[2017-01-13] MEDS: LORATADINE 10 MG TABLET PO SCH (10:48)
[2017-01-13] MEDS: FAMOTIDINE 20 MG/50 ML IVPB 50 ML IVPB SCH (10:49)
[2017-01-13] MEDS: KCL 10 MEQ IVPB 100 ML IVPB SCH ×3 (10:49→14:20)
[2017-01-13] MEDS: AMINO ACIDS/PROTEIN HYDROLYS 30 ML LIQUID.PKT PO SCH ×2 (10:49→22:42)
[2017-01-13] MEDS: ASCORBIC ACID 500 MG TABLET (FP) PO SCH (10:50)
[2017-01-13] MEDS: CHLORHEXIDINE GLUCONATE 0.12% 15ML CUP MM SCH ×2 (10:50→22:42)
--- NOTE | 2017-01-13 12:15 | PN ---
Progress Note, Physician History of Present Illness: AWAKE IN ICU REFUSING TO EAT HYPOGLYCEMIA - Current Medication List Current Medications: Active Medications Acetaminophen (Tylenol -) 650 mg PO Q4H PRN PRN Reason: PAIN OR FEVER Last Admin: 01/08/17 17:44 Dose: 650 mg Albuterol Sulfate (Ventolin 0.083% Nebulizer Soln -) 1 amp NEB Q6H PRN PRN Reason: SHORT OF BREATH/WHEEZING Albuterol/Ipratropium (Duoneb -) 1 amp NEB QIDR [facility] Last Admin: 01/13/17 05:30 Dose: 1 amp Alprazolam (Xanax -) 0.25 mg PO Q8H PRN PRN Reason: ANXIETY Last Admin: 01/12/17 17:42 Dose: 0.25 mg Amino Acids (Prosource No Carb Liquid Pkt) 30 ml PO BID [facility] Last Admin: 01/13/17 10:49 Dose: 30 ml Apixaban (Eliquis -) 2.5 mg PO BID [facility] Last Admin: 01/13/17 10:48 Dose: 2.5 mg Artificial Tears (Artificial Tears) 1 drop OU BID PRN PRN Reason: DRY EYES Last Admin: 01/10/17 10:33 Dose: 1 drop Ascorbic Acid (Vitamin C -) 500 mg PO DAILY [facility] Last Admin: 01/13/17 10:50 Dose: 500 mg Atorvastatin Calcium (Lipitor -) 10 mg PO HS [facility] Last Admin: 01/12/17 21:24 Dose: 10 mg Bacitracin (Bacitracin -) 1 applic TP TID [facility] Last Admin: 01/13/17 07:00 Dose: 1 applic Chlorhexidine Gluconate (Peridex -) 15 ml MM BID [facility] Last Admin: 01/13/17 10:50 Dose: 15 ml Chlorhexidine Gluconate (Hibiclens For Decolonization -) 1 applic TP HS [facility] Last Admin: 01/12/17 21:29 Dose: 1 applic Docusate Sodium (Colace -) 300 mg PO HS [facility] Last Admin: 01/12/17 21:25 Dose: 300 mg Ferrous Sulfate (Feosol -) 325 mg PO BID [facility] Last Admin: 01/13/17 10:48 Dose: 325 mg Famotidine/Sodium Chloride (Pepcid 20 Mg Premixed Ivpb -) 50 mls @ 100 mls/hr IVPB BID [facility] Last Admin: 01/13/17 10:49 Dose: 100 mls/hr Potassium Chloride (Potassium Chloride 10 Meq Premix Ivpb -) 100 mls @ 100 mls/ hr IVPB Q60M [facility] Stop: 01/13/17 13:29 Last Admin: 01/13/17 10:49 Dose: 100 mls/hr Lactobacillus Acidophilus (Bacid -) 1 tab PO DAILY [facility] Last Admin: 01/13/17 10:48 Dose: 1 tab Loratadine (Claritin -) 10 mg PO DAILY [facility] Last Admin: 01/13/17 10:48 Dose: 10 mg Mirtazapine (Remeron -) 15 mg PO HS [facility] Last Admin: 01/12/17 21:25 Dose: 15 mg Multivitamins/Minerals/Vitamin C (Tab-A-Vit -) 1 tab PO DAILY [facility] Last Admin: 01/13/17 10:48 Dose: 1 tab - Objective Vital Signs: Vital Signs Temperature 98.3 F 01/13/17 10:00 Pulse Rate 118 H 01/13/17 10:00 Respiratory Rate 18 01/13/17 10:00 Blood Pressure 157/83 01/13/17 10:00 O2 Sat by Pulse Oximetry (%) 97 01/12/17 10:36 Cardiovascular: Yes: Tachycardia, S1, S2 Respiratory: Yes: Mechanically Ventilated Gastrointestinal: Yes: Normal Bowel Sounds, Soft Labs: CBC, BMP 01/13/17 05:10 01/13/17 05:10 INR, PTT INR 1.30 (0.82-1.09) H 01/08/17 11:30 Problem List - Problems (1) UGIB (upper gastrointestinal bleed) Assessment/Plan: -R/O BLEED--HEM POS REPEAT GUAIAC POSITIVE GI ALREADY ON THE CASE,CLEARED BY SPEECH TO START PO INTAKE WITH PASSY YANG VALVE MONITOR LABS, IRON STUDIES INDICATE ARNOL, LIKELY DUE TO ACUTE BLOOD LOSS Laboratory Tests 01/08/17 01/09/17 01/10/17 11:30 05:15 05:20 Hgb 12.2 9.8 L D 9.6 L FOLLOW LABS PPI GI CONSULT NOTED Code(s): K92.2 - GASTROINTESTINAL HEMORRHAGE, UNSPECIFIED (2) PAF (paroxysmal atrial fibrillation) Assessment/Plan: BACK ON ELIQUIS ADD CARDIZEM Code(s): I48.0 - PAROXYSMAL ATRIAL FIBRILLATION (3) Chronic respiratory failure Assessment/Plan: PULM CONSULT ON MECHANICAL VENT, COMFORTABLE--TRIAL OF WEANING Code(s): J96.10 - CHRONIC RESPIRATORY FAILURE, UNSP W HYPOXIA OR HYPERCAPNIA Qualifiers: Qualified Code(s): J96.12 - Chronic respiratory failure with hypercapnia
[2017-01-13] MEDS: dilTIAZem HCL 30 MG TABLET (FP) PO SCH ×2 (20:55→22:43)
[2017-01-13] MEDS: ATORVASTATIN CA 10 MG TABLET (FP) PO SCH (22:42)
[2017-01-13] MEDS: DOCUSATE SODIUM 100 MG CAPSULE (FP) PO SCH (22:43)
[2017-01-13] MEDS: CHLORHEXIDINE GLUCONATE 4% CLEANSER FOR DECOLONIZATION TP SCH (22:43)
[2017-01-13] MEDS: MIRTAZAPINE 15 MG TABLET (FP) PO SCH (22:43)
[2017-01-14] MEDS: ALBUTEROL SO4 2.5/IPRATROPIUM 0.5 INH SOL 3 ML VIAL.NEB. NEB SCH ×5 (00:21→23:19)
[2017-01-14] MEDS: BACITRACIN 15 GM TUBE TOPICAL OINTMENT TP SCH ×3 (06:22→22:30)
[2017-01-14] MEDS ORDERED: PT OWN MED DRAWER 7, Y5N ONE ×2 (10:26→17:19)
[2017-01-14] MEDS: FERROUS SO4 325 MG TABLET (FP) PO SCH ×2 (10:51→22:30)
[2017-01-14] MEDS: APIXABAN 2.5 MG TABLET PO SCH ×2 (10:51→22:30)
[2017-01-14] MEDS: ASCORBIC ACID 500 MG TABLET (FP) PO SCH (10:51)
[2017-01-14] MEDS: LORATADINE 10 MG TABLET PO SCH (10:51)
[2017-01-14] MEDS: LACTOBACILLUS ACIDOPHILUS 1 EACH TAB (FP) PO SCH (10:51)
[2017-01-14] MEDS: AMINO ACIDS/PROTEIN HYDROLYS 30 ML LIQUID.PKT PO SCH ×2 (10:51→22:30)
[2017-01-14] MEDS: MULTIVITAMINS (DAILY MVI) TABLET (FP) PO SCH (10:51)
[2017-01-14] MEDS: dilTIAZem HCL 30 MG TABLET (FP) PO SCH (10:51)
[2017-01-14] MEDS: CHLORHEXIDINE GLUCONATE 0.12% 15ML CUP MM SCH ×2 (10:53→22:30)
[2017-01-14] MEDS: RANITIDINE HCL 150 MG/10 ML UNIT-DOSE CUP PO SCH (10:53)
--- NOTE | 2017-01-14 11:12 | PN ---
Progress Note (short form) - Note Progress Note: Patient seen and examined in the ICU. Awake and responsive. Remains off pressors. Had oatmeal and took all of her PO Meds this AM. Intake & Output 01/11/17 01/12/17 01/13/17 01/14/17 23:59 23:59 23:59 23:59 Intake Total 2188 240 830 0 Balance 2188 240 830 0 Weight 107 lb 8 oz 103 lb 11.2 oz 103 lb 11.2 oz 97 lb 6.4 oz Last Vital Signs Temp Pulse Resp BP Pulse Ox 99.2 F 109 H 14 92/75 92 L 01/14/17 10:00 01/14/17 10:00 01/14/17 10:00 01/14/17 10:00 01/14/17 09:00 Active Medications Acetaminophen (Tylenol -) 650 mg PO Q4H PRN PRN Reason: PAIN OR FEVER Last Admin: 01/08/17 17:44 Dose: 650 mg Albuterol Sulfate (Ventolin 0.083% Nebulizer Soln -) 1 amp NEB Q6H PRN PRN Reason: SHORT OF BREATH/WHEEZING Albuterol/Ipratropium (Duoneb -) 1 amp NEB QIDR [facility] Last Admin: 01/14/17 06:00 Dose: 1 amp Alprazolam (Xanax -) 0.25 mg PO Q8H PRN PRN Reason: ANXIETY Last Admin: 01/12/17 17:42 Dose: 0.25 mg Amino Acids (Prosource No Carb Liquid Pkt) 30 ml PO BID [facility] Last Admin: 01/14/17 10:51 Dose: 30 ml Apixaban (Eliquis -) 2.5 mg PO BID [facility] Last Admin: 01/14/17 10:51 Dose: 2.5 mg Artificial Tears (Artificial Tears) 1 drop OU BID PRN PRN Reason: DRY EYES Last Admin: 01/10/17 10:33 Dose: 1 drop Ascorbic Acid (Vitamin C -) 500 mg PO DAILY [facility] Last Admin: 01/14/17 10:51 Dose: 500 mg Atorvastatin Calcium (Lipitor -) 10 mg PO HS [facility] Last Admin: 01/13/17 22:42 Dose: 10 mg Bacitracin (Bacitracin -) 1 applic TP TID [facility] Last Admin: 01/14/17 06:22 Dose: 1 applic Chlorhexidine Gluconate (Peridex -) 15 ml MM BID [facility] Last Admin: 01/14/17 10:53 Dose: 15 ml Chlorhexidine Gluconate (Hibiclens For Decolonization -) 1 applic TP HS [facility] Last Admin: 01/13/17 22:43 Dose: 1 applic Diltiazem HCl (Cardizem -) 30 mg PO QID [facility] Last Admin: 01/14/17 10:51 Dose: 30 mg Docusate Sodium (Colace -) 300 mg PO HS [facility] Last Admin: 01/13/17 22:43 Dose: 300 mg Ferrous Sulfate (Feosol -) 325 mg PO BID [facility] Last Admin: 01/14/17 10:51 Dose: 325 mg Lactobacillus Acidophilus (Bacid -) 1 tab PO DAILY [facility] Last Admin: 01/14/17 10:51 Dose: 1 tab Loratadine (Claritin -) 10 mg PO DAILY [facility] Last Admin: 01/14/17 10:51 Dose: 10 mg Mirtazapine (Remeron -) 30 mg PO HS [facility] Last Admin: 01/13/17 22:43 Dose: 30 mg Multivitamins/Minerals/Vitamin C (Tab-A-Vit -) 1 tab PO DAILY [facility] Last Admin: 01/14/17 10:51 Dose: 1 tab Ranitidine HCl (Zantac Oral Solution -) 150 mg PO DAILY [facility] Last Admin: 01/14/17 10:53 Dose: 150 mg Constitutional: Yes: Awake on AC Mode of vent Eyes: Yes: PERRL Neck: Yes: Trachea Midline, Other (trach c/d/i) Cardiovascular: Yes: Regular Rate and Rhythm, S1, S2 Respiratory: Yes: Clear, Mechanically Ventilated Gastrointestinal: Yes: Normal Bowel Sounds, Soft Extremities: Yes: WNL Edema: No Labs: Laboratory Results - last 24 hr 01/13/17 01/13/17 12:26 17:56 POC Glucometer 115.98862 112.95092 Problem List - Problems (1) Altered mental status Code(s): R41.82 - ALTERED MENTAL STATUS, UNSPECIFIED (2) Dehydration Code(s): E86.0 - DEHYDRATION (3) Sepsis Code(s): A41.9 - SEPSIS, UNSPECIFIED ORGANISM (4) UTI (urinary tract infection) Code(s): N39.0 - URINARY TRACT INFECTION, SITE NOT SPECIFIED Qualifiers: (5) COPD (chronic obstructive pulmonary disease) Code(s): J44.9 - CHRONIC OBSTRUCTIVE PULMONARY DISEASE, UNSPECIFIED (6) Chronic respiratory failure Code(s): J96.10 - CHRONIC RESPIRATORY FAILURE, UNSP W HYPOXIA OR HYPERCAPNIA Qualifiers: Respiratory failure complication: hypercapnia Qualified Code(s): J96.12 - Chronic respiratory failure with hypercapnia (7) Fever Code(s): R50.9 - FEVER, UNSPECIFIED Assessment/Plan Monitor off ABX AC Mode vent Normal transfusion thresholds SCDS PMV / Trach collar as tolerated (has not been tolerating thus far ?Anxiety) P. care to discuss further GOC with patient/family Vent Floor Dr Medina
--- NOTE | 2017-01-14 12:01 | PN ---
Progress Note, Physician History of Present Illness: WEAK - Current Medication List Current Medications: Active Medications Acetaminophen (Tylenol -) 650 mg PO Q4H PRN PRN Reason: PAIN OR FEVER Last Admin: 01/08/17 17:44 Dose: 650 mg Albuterol Sulfate (Ventolin 0.083% Nebulizer Soln -) 1 amp NEB Q6H PRN PRN Reason: SHORT OF BREATH/WHEEZING Albuterol/Ipratropium (Duoneb -) 1 amp NEB QIDR [facility] Last Admin: 01/14/17 06:00 Dose: 1 amp Alprazolam (Xanax -) 0.25 mg PO Q8H PRN PRN Reason: ANXIETY Last Admin: 01/12/17 17:42 Dose: 0.25 mg Amino Acids (Prosource No Carb Liquid Pkt) 30 ml PO BID [facility] Last Admin: 01/14/17 10:51 Dose: 30 ml Apixaban (Eliquis -) 2.5 mg PO BID [facility] Last Admin: 01/14/17 10:51 Dose: 2.5 mg Artificial Tears (Artificial Tears) 1 drop OU BID PRN PRN Reason: DRY EYES Last Admin: 01/10/17 10:33 Dose: 1 drop Ascorbic Acid (Vitamin C -) 500 mg PO DAILY [facility] Last Admin: 01/14/17 10:51 Dose: 500 mg Atorvastatin Calcium (Lipitor -) 10 mg PO HS [facility] Last Admin: 01/13/17 22:42 Dose: 10 mg Bacitracin (Bacitracin -) 1 applic TP TID [facility] Last Admin: 01/14/17 06:22 Dose: 1 applic Chlorhexidine Gluconate (Peridex -) 15 ml MM BID [facility] Last Admin: 01/14/17 10:53 Dose: 15 ml Chlorhexidine Gluconate (Hibiclens For Decolonization -) 1 applic TP HS [facility] Last Admin: 01/13/17 22:43 Dose: 1 applic Docusate Sodium (Colace -) 300 mg PO HS [facility] Last Admin: 01/13/17 22:43 Dose: 300 mg Ferrous Sulfate (Feosol -) 325 mg PO BID [facility] Last Admin: 01/14/17 10:51 Dose: 325 mg Lactobacillus Acidophilus (Bacid -) 1 tab PO DAILY [facility] Last Admin: 01/14/17 10:51 Dose: 1 tab Loratadine (Claritin -) 10 mg PO DAILY [facility] Last Admin: 01/14/17 10:51 Dose: 10 mg Mirtazapine (Remeron -) 30 mg PO HS [facility] Last Admin: 01/13/17 22:43 Dose: 30 mg Multivitamins/Minerals/Vitamin C (Tab-A-Vit -) 1 tab PO DAILY [facility] Last Admin: 01/14/17 10:51 Dose: 1 tab Ranitidine HCl (Zantac Oral Solution -) 150 mg PO DAILY [facility] Last Admin: 01/14/17 10:53 Dose: 150 mg - Objective Vital Signs: Vital Signs Temperature 99.2 F 01/14/17 10:00 Pulse Rate 109 H 01/14/17 10:00 Respiratory Rate 16 01/14/17 11:25 Blood Pressure 92/75 01/14/17 10:00 O2 Sat by Pulse Oximetry (%) 92 L 01/14/17 09:00 Cardiovascular: Yes: S1, S2 Respiratory: Yes: Diminished, Mechanically Ventilated, Rhonchi Gastrointestinal: Yes: Normal Bowel Sounds, Soft Labs: CBC, BMP 01/13/17 05:10 01/13/17 05:10 INR, PTT INR 1.30 (0.82-1.09) H 01/08/17 11:30 Problem List - Problems (1) UGIB (upper gastrointestinal bleed) Assessment/Plan: -R/O BLEED--HEM POS REPEAT GUAIAC POSITIVE GI ALREADY ON THE CASE,CLEARED BY SPEECH TO START PO INTAKE WITH PASSY YANG VALVE MONITOR LABS, IRON STUDIES INDICATE ARNOL, LIKELY DUE TO ACUTE BLOOD LOSS Laboratory Tests 01/08/17 01/09/17 01/10/17 11:30 05:15 05:20 Hgb 12.2 9.8 L D 9.6 L FOLLOW LABS PPI GI CONSULT NOTED Code(s): K92.2 - GASTROINTESTINAL HEMORRHAGE, UNSPECIFIED (2) PAF (paroxysmal atrial fibrillation) Assessment/Plan: BACK ON ELIQUIS DC CARDIZEM DUE TO HYPOTENSION Code(s): I48.0 - PAROXYSMAL ATRIAL FIBRILLATION (3) Chronic respiratory failure Assessment/Plan: PULM CONSULT ON MECHANICAL VENT, COMFORTABLE--TRIAL OF WEANING Code(s): J96.10 - CHRONIC RESPIRATORY FAILURE, UNSP W HYPOXIA OR HYPERCAPNIA Qualifiers: Qualified Code(s): J96.12 - Chronic respiratory failure with hypercapnia Assessment/Plan HYPOTENSION MAY BE DUE TO CARDIZEM---DC AND OBSERVE EKG CBC/CMP
[2017-01-14 12:37] LABS: BASOPHIL 0.6 % (0-2.0); EOSINOPHIL 3.8 % (0-4.5); MCH 26.3 pg (25.7-33.7); MEAN CELL VOLUME 82.3 fl (80-96); NEUTROPHILS 79.6 % (42.8-82.8); PLATELET COUNT 196 K/MM3 (134-434); RDW 16.6 % (11.6-15.6); WHITE BLOOD COUNT 14.7 K/mm3 (4.0-10.0)
[2017-01-14 12:59] LABS: ALBUMIN 2.4 g/dl (3.4-5.0); ANION GAP 8 (8-16); BILIRUBIN,TOTAL 0.4 mg/dL (0.2-1.0); CALCIUM 8.2 mg/dL (8.5-10.1); CO2 32 mmol/L (21-32); CREATININE 0.7 mg/dL (0.55-1.02); GLUCOSE,RANDOM 164 mg/dL (74-106); SGOT/AST 12 U/L (15-37); SGPT/ALT 12 U/L (12-78); TOT PROT 5.8 g/dl (6.4-8.2)
[2017-01-14 13:00] LABS: ALK PHOS 69 U/L (45-117)
--- NOTE | 2017-01-14 20:11 | EKG ---
Test Reason : Blood Pressure : / mmHG Vent. Rate : 105 BPM Atrial Rate : 105 BPM P-R Int : 116 ms QRS Dur : 076 ms QT Int : 352 ms P-R-T Axes : -67 -43 -27 degrees QTc Int : 465 ms UNUSUAL P AXIS AND SHORT ME, PROBABLE JUNCTIONAL TACHYCARDIA LEFT AXIS DEVIATION INFERIOR INFARCT (CITED ON OR BEFORE 08-JAN-2017) NONSPECIFIC T WAVE ABNORMALITY ABNORMAL ECG WHEN COMPARED WITH ECG OF 08-JAN-2017 09:45, NONSPECIFIC T WAVE ABNORMALITY, WORSE IN INFERIOR LEADS Confirmed by CHAIM GOMEZ, JIN (2016) on 01/14/2017 8:11:22 PM Referred By: COLBY LUQUE Confirmed By:JIN RUCKER MD
[2017-01-14] MEDS: DOCUSATE SODIUM 100 MG CAPSULE (FP) PO SCH (22:30)
[2017-01-14] MEDS: MIRTAZAPINE 15 MG TABLET (FP) PO SCH (22:30)
[2017-01-14] MEDS: ATORVASTATIN CA 10 MG TABLET (FP) PO SCH (22:30)
[2017-01-14] MEDS: CHLORHEXIDINE GLUCONATE 4% CLEANSER FOR DECOLONIZATION TP SCH (22:30)
[2017-01-15] MEDS: BACITRACIN 15 GM TUBE TOPICAL OINTMENT TP SCH ×3 (06:26→23:20)
[2017-01-15] MEDS: ALBUTEROL SO4 2.5/IPRATROPIUM 0.5 INH SOL 3 ML VIAL.NEB. NEB SCH ×3 (06:34→17:55)
[2017-01-15] MEDS: MULTIVITAMINS (DAILY MVI) TABLET (FP) PO SCH (10:24)
[2017-01-15] MEDS: LACTOBACILLUS ACIDOPHILUS 1 EACH TAB (FP) PO SCH (10:24)
[2017-01-15] MEDS: FERROUS SO4 325 MG TABLET (FP) PO SCH ×2 (10:24→23:23)
[2017-01-15] MEDS: ASCORBIC ACID 500 MG TABLET (FP) PO SCH (10:24)
[2017-01-15] MEDS: AMINO ACIDS/PROTEIN HYDROLYS 30 ML LIQUID.PKT PO SCH ×2 (10:24→23:24)
[2017-01-15] MEDS: RANITIDINE HCL 150 MG/10 ML UNIT-DOSE CUP PO SCH (10:24)
[2017-01-15] MEDS: LORATADINE 10 MG TABLET PO SCH (10:24)
[2017-01-15] MEDS: APIXABAN 2.5 MG TABLET PO SCH ×2 (10:24→23:23)
[2017-01-15] MEDS: ACETAMINOPHEN 325 MG TABLET (FP) PO PRN (10:24)
[2017-01-15] MEDS: CHLORHEXIDINE GLUCONATE 0.12% 15ML CUP MM SCH ×2 (10:25→23:24)
--- NOTE | 2017-01-15 11:24 | PN ---
Progress Note, Physician Chief Complaint: ID Asked to reevaluate for new onset of temp 101 Vent dependent - Current Medication List Current Medications: Active Medications Acetaminophen (Tylenol -) 650 mg PO Q4H PRN PRN Reason: PAIN OR FEVER Last Admin: 01/15/17 10:24 Dose: 650 mg Albuterol/Ipratropium (Duoneb -) 1 amp NEB QIDR [facility] Last Admin: 01/15/17 11:09 Dose: 1 amp Amino Acids (Prosource No Carb Liquid Pkt) 30 ml PO BID [facility] Last Admin: 01/15/17 10:24 Dose: 30 ml Apixaban (Eliquis -) 2.5 mg PO BID [facility] Last Admin: 01/15/17 10:24 Dose: 2.5 mg Artificial Tears (Artificial Tears) 1 drop OU BID PRN PRN Reason: DRY EYES Last Admin: 01/10/17 10:33 Dose: 1 drop Ascorbic Acid (Vitamin C -) 500 mg PO DAILY [facility] Last Admin: 01/15/17 10:24 Dose: 500 mg Atorvastatin Calcium (Lipitor -) 10 mg PO HS [facility] Last Admin: 01/14/17 22:30 Dose: 10 mg Bacitracin (Bacitracin -) 1 applic TP TID [facility] Last Admin: 01/15/17 06:26 Dose: 1 applic Chlorhexidine Gluconate (Peridex -) 15 ml MM BID [facility] Last Admin: 01/15/17 10:25 Dose: 15 ml Chlorhexidine Gluconate (Hibiclens For Decolonization -) 1 applic TP HS [facility] Last Admin: 01/14/17 22:30 Dose: 1 applic Docusate Sodium (Colace -) 300 mg PO HS [facility] Last Admin: 01/14/17 22:30 Dose: 300 mg Ferrous Sulfate (Feosol -) 325 mg PO BID [facility] Last Admin: 01/15/17 10:24 Dose: 325 mg Lactobacillus Acidophilus (Bacid -) 1 tab PO DAILY [facility] Last Admin: 01/15/17 10:24 Dose: 1 tab Loratadine (Claritin -) 10 mg PO DAILY [facility] Last Admin: 01/15/17 10:24 Dose: 10 mg Mirtazapine (Remeron -) 30 mg PO [facility] Last Admin: 01/14/17 22:30 Dose: 30 mg Multivitamins/Minerals/Vitamin C (Tab-A-Vit -) 1 tab PO DAILY [facility] Last Admin: 01/15/17 10:24 Dose: 1 tab Ranitidine HCl (Zantac Oral Solution -) 150 mg PO DAILY [facility] Last Admin: 01/15/17 10:24 Dose: 150 mg - Objective Vital Signs: Vital Signs Temperature 101.0 F H 01/15/17 10:30 Pulse Rate 108 H 01/15/17 10:03 Respiratory Rate 14 01/15/17 10:03 Blood Pressure 99/58 01/15/17 10:03 O2 Sat by Pulse Oximetry (%) 96 01/15/17 09:35 Neck: Yes: Other (Trach) Cardiovascular: Yes: S1, S2 Respiratory: Yes: WNL, Regular, CTA Bilaterally Gastrointestinal: Yes: WNL, Normal Bowel Sounds, Soft Edema: No Labs: CBC, BMP 01/14/17 12:20 01/14/17 12:20 INR, PTT INR 1.30 (0.82-1.09) H 01/08/17 11:30 Assessment/Plan Microbiology 01/10/17 17:45 Stool Clostridium difficile Antigen (JUNO) - Final 01/10/17 17:45 Stool Clostridium difficile Toxin Assay - Final 01/08/17 22:02 Blood - Peripheral Venous Blood Culture - Final NO GROWTH AFTER 5 DAYS INCUBATION 01/08/17 22:02 Blood - Peripheral Venous Blood Culture - Final NO GROWTH AFTER 5 DAYS INCUBATION 01/08/17 04:00 Urine - Urine - Catheterized Urine Culture - Final Providencia Stuartii Laboratory Tests 01/13/17 01/14/17 01/14/17 05:10 12:20 12:20 WBC 10.8 H 14.7 H D Hgb 11.2 Hct 35.1 Plt Count 196 BUN 16 D Creatinine 0.7 D Creat Clearance w eGFR > 60 Assessment Patient has been in ICU/hospital since January 08 Previously on Ceftriaxone but currently on nothing by way of antibiotics New onset fever unknown source. Plan Panculture Empiric Vancomcyin and Zosyn Discussed with sukumar Simon MD
--- NOTE | 2017-01-15 11:29 | PN ---
Physical Exam: SUBJECTIVE: Patient seen and examined. sleeping comfortably in bed, c.o feeling thirsty. denies chills, abdominal pain, cough, rhinorrhea, headache, chest pain/ palpitations OBJECTIVE: Vital Signs Period Temp Pulse Resp BP Sys/Vera Pulse Ox Last 24 Hr 98 F-101.0 F 92-116 14-18 86-128/45-66 96-98 GENERAL: The patient is awake, alert, in no acute distress. EYES: PERRL, extraocular movements intact, sclera anicteric, conjunctiva clear ENT: oropharynx clear without exudates/lesions, moist mucous membranes. NECK: trach in place with scant secretions, no surrounding erythema LUNGS: diffuse rhonchi, quiet at bases HEART: afib, S1, S2 without murmur ABDOMEN: Soft, nontender, nondistended, normoactive bowel sounds, no guarding EXTREMITIES: 2+ radial, dorsalis pedis pulses, warm, well-perfused, no edema. Laboratory Results - last 24 hr 01/14/17 01/14/17 01/14/17 06:42 12:20 12:20 WBC 14.7 H D RBC 4.26 Hgb 11.2 Hct 35.1 MCV 82.3 MCHC 32.0 RDW 16.6 H Plt Count 196 MPV 8.0 Neutrophils % 79.6 Lymphocytes % 10.0 D Monocytes % 6.0 Eosinophils % 3.8 Basophils % 0.6 Sodium 141 Potassium 3.7 Chloride 101 Carbon Dioxide 32 Anion Gap 8 BUN 16 D Creatinine 0.7 D Creat Clearance w eGFR > 60 POC Glucometer 123.72229 Random Glucose 164 H D Calcium 8.2 L Total Bilirubin 0.4 D AST 12 L D ALT 12 Alkaline Phosphatase 69 Total Protein 5.8 L Albumin 2.4 L Active Medications Generic Name Dose Route Start Last Admin Trade Name Freq PRN Reason Stop Dose Admin Acetaminophen 650 mg 01/08/17 09:26 01/15/17 10:24 Tylenol - PO 650 mg Q4H PRN Administration PAIN OR FEVER Albuterol/Ipratropium 1 amp 01/08/17 12:00 01/15/17 11:09 Duoneb - NEB 1 amp QIDR [facility] Administration Amino Acids 30 ml 01/08/17 10:00 01/15/17 10:24 Prosource No Carb Liquid Pkt PO 30 ml BID [facility] Administration Apixaban 2.5 mg 01/12/17 10:00 01/15/17 10:24 Eliquis - PO 2.5 mg BID [facility] Administration Artificial Tears 1 drop 01/08/17 09:48 01/10/17 10:33 Artificial Tears OU 1 drop BID PRN Administration DRY EYES Ascorbic Acid 500 mg 01/08/17 10:00 01/15/17 10:24 Vitamin C - PO 500 mg DAILY [facility] Administration Atorvastatin Calcium 10 mg 01/08/17 22:00 01/14/17 22:30 Lipitor - PO 10 mg HS [facility] Administration Bacitracin 1 applic 01/08/17 14:00 01/15/17 06:26 Bacitracin - TP 1 applic TID [facility] Administration Chlorhexidine Gluconate 15 ml 01/09/17 22:00 01/15/17 10:25 Peridex - MM 15 ml BID [facility] Administration Chlorhexidine Gluconate 1 applic 01/09/17 22:00 01/14/17 22:30 Hibiclens For Decolonization - TP 1 applic HS [facility] Administration Docusate Sodium 300 mg 01/08/17 22:00 01/14/17 22:30 Colace - PO 300 mg HS [facility] Administration Ferrous Sulfate 325 mg 01/08/17 10:00 01/15/17 10:24 Feosol - PO 325 mg BID [facility] Administration Lactobacillus Acidophilus 1 tab 01/08/17 10:00 01/15/17 10:24 Bacid - PO 1 tab DAILY [facility] Administration Loratadine 10 mg 01/08/17 10:00 01/15/17 10:24 Claritin - PO 10 mg DAILY [facility] Administration Mirtazapine 30 mg 01/13/17 15:12 01/14/17 22:30 Remeron - PO 30 mg HS [facility] Administration Multivitamins/Minerals/Vitamin C 1 tab 01/08/17 10:00 01/15/17 10:24 Tab-A-Vit - PO 1 tab DAILY [facility] Administration Ranitidine HCl 150 mg 01/14/17 10:00 01/15/17 10:24 Zantac Oral Solution - PO 150 mg DAILY [facility] Administration ASSESSMENT/PLAN: 82 yr old woman with afib (on xarelto) hx of [place], s/p AICD placement, hx of GIB< s/p trach transferred from residential due to fevers, black tarry stool, admitted to ICU for hypotension requiring pressors and UTI. ID fever and leucocytosis - unclear etiology - culture: blood and urine cxs pending, u/a pending - empiric vanc 1gm IVPB qdaily and zosyn q8hr IVPB completed 5-day course of abx for UTI recently consult Dr. Simon GI c.diff negative patient tolerating po famotadine IVPB BID Cardiovascular htn - controlled eliquis started for afib Afib, currently in sinus, rate controlled consult: Dr. ellsworth Pulmonary ventolin prn q6hr and duonebs qidr terry claritin 10mg daily po PMV ordered, assessed by Gloria Syed, pt is not tolerating cpap mode, AC vent dependent hematology normocytic anemia - iron studies; iron deficiency anemia with high ferritin continue oral feosol Renal replete electrolytes prn Neurological remeron 15mg po HS Diet - soft with thin liquids, assessed by gloria syed Dvt - on eliquis Code status: DNR Dispo - transfer to med/surg(5s vent floor) Visit type - Emergency Visit Emergency Visit: No - New Patient This patient is new to me today: No - Critical Care Critical Care patient: Yes Total Critical Care Time (in minutes): 36 Critical Care Statement: The care of this patient involved high complexity decision making to prevent further life threatening deterioration of the patient 's condition and/or to evalute & treat vital organ system(s) failure or risk of failure.
[2017-01-15 11:31] LABS: MCH 26.2 pg (25.7-33.7); MCHC 31.5 g/dl (32.0-36.0); MEAN PLT VOLUME 8.2 fl (7.5-11.1); PLATELET COUNT 189 K/MM3 (134-434)
--- NOTE | 2017-01-15 11:40 | PN ---
Progress Note, Physician Chief Complaint: UTI History of Present Illness: Pt NPO for GI w/u. Pt was on soft diet, thin liquid at [place]. She had a PMV ordered for daily use. Mouthing words to me. Awake,cooperative and interactive. Baseline confusion. ORIGINALLY CAME IN FOR A UTI, BECAME HYPOTENSIVE, HER LACTIC ACID WAS HIGH, SEPTIC? OR SECONDARY TO ALBUTEROL? BC NEGATIVE, UC CONFIRMED UTI, COMFORTABLE IN BED ON MECH EVNT VIA TRACH, ALERT THIS AM, HAS RECTAL TEMP OF 101 [place] [address], UNKNOWN SOURCE. - Current Medication List Current Medications: Active Medications Acetaminophen (Tylenol -) 650 mg PO Q4H PRN PRN Reason: PAIN OR FEVER Last Admin: 01/15/17 10:24 Dose: 650 mg Albuterol/Ipratropium (Duoneb -) 1 amp NEB QIDR [facility] Last Admin: 01/15/17 11:09 Dose: 1 amp Amino Acids (Prosource No Carb Liquid Pkt) 30 ml PO BID [facility] Last Admin: 01/15/17 10:24 Dose: 30 ml Apixaban (Eliquis -) 2.5 mg PO BID [facility] Last Admin: 01/15/17 10:24 Dose: 2.5 mg Artificial Tears (Artificial Tears) 1 drop OU BID PRN PRN Reason: DRY EYES Last Admin: 01/10/17 10:33 Dose: 1 drop Ascorbic Acid (Vitamin C -) 500 mg PO DAILY [facility] Last Admin: 01/15/17 10:24 Dose: 500 mg Atorvastatin Calcium (Lipitor -) 10 mg PO [facility] Last Admin: 01/14/17 22:30 Dose: 10 mg Bacitracin (Bacitracin -) 1 applic TP TID [facility] Last Admin: 01/15/17 06:26 Dose: 1 applic Chlorhexidine Gluconate (Peridex -) 15 ml MM BID [facility] Last Admin: 01/15/17 10:25 Dose: 15 ml Chlorhexidine Gluconate (Hibiclens For Decolonization -) 1 applic TP HS [facility] Last Admin: 01/14/17 22:30 Dose: 1 applic Docusate Sodium (Colace -) 300 mg PO HS [facility] Last Admin: 01/14/17 22:30 Dose: 300 mg Ferrous Sulfate (Feosol -) 325 mg PO BID [facility] Last Admin: 06/26/17 10:24 Dose: 325 mg Lactobacillus Acidophilus (Bacid -) 1 tab PO DAILY [facility] Last Admin: 01/15/17 10:24 Dose: 1 tab Loratadine (Claritin -) 10 mg PO DAILY [facility] Last Admin: 01/15/17 10:24 Dose: 10 mg Mirtazapine (Remeron -) 30 mg PO HS [facility] Last Admin: 01/14/17 22:30 Dose: 30 mg Multivitamins/Minerals/Vitamin C (Tab-A-Vit -) 1 tab PO DAILY [facility] Last Admin: 01/15/17 10:24 Dose: 1 tab Ranitidine HCl (Zantac Oral Solution -) 150 mg PO DAILY [facility] Last Admin: 01/15/17 10:24 Dose: 150 mg - Objective Vital Signs: Vital Signs Temperature 101.0 F H 01/15/17 10:30 Pulse Rate 108 H 01/15/17 10:03 Respiratory Rate 14 01/15/17 11:23 Blood Pressure 99/58 01/15/17 10:03 O2 Sat by Pulse Oximetry (%) 96 01/15/17 11:24 Constitutional: Yes: Well Nourished, No Distress, Calm Cardiovascular: Yes: Regular Rate and Rhythm Respiratory: Yes: Regular Extremities: Yes: WNL Edema: No Peripheral Pulses WNL: Yes Labs: INR, PTT INR 1.30 (0.82-1.09) H 01/08/17 11:30 Problem List - Problems (1) Anemia Assessment/Plan: STOOL GUAIAC POSITIVE, H/H STABLE AT THIS TIME. Code(s): D64.9 - ANEMIA, UNSPECIFIED (2) Chronic respiratory failure Assessment/Plan: MECHANICALLY VENTILATED WITH PASSY YANG VALVE Code(s): J96.10 - CHRONIC RESPIRATORY FAILURE, UNSP W HYPOXIA OR HYPERCAPNIA Qualifiers: Qualified Code(s): J96.12 - Chronic respiratory failure with hypercapnia Assessment/Plan ON MECHANICAL VENT, COMFORTABLE. ID TO CONSULT AGAIN IV ABX MONITOR LABS SEPSIS WORKUP-UC,BC,SC
[2017-01-15 12:17] LABS: ANION GAP 7 (8-16); CALCIUM 8.3 mg/dL (8.5-10.1); CO2 32 mmol/L (21-32); CREATININE 0.7 mg/dL (0.55-1.02); GLUCOSE,RANDOM 143 mg/dL (74-106)
--- NOTE | 2017-01-15 12:21 | PN ---
Teaching Attending Note Name of Resident: Jose Luna ATTENDING PHYSICIAN STATEMENT I saw and evaluated the patient. I reviewed the resident's note and discussed the case with the resident. I agree with the resident's findings and plan as documented. SUBJECTIVE: Pt seen and examined in the ICU. Febrile to 101 today. Vented on volume assist control. OBJECTIVE: Last Vital Signs Temp Pulse Resp BP Pulse Ox 101.0 F H 108 H 14 99/58 96 01/15/17 10:30 01/15/17 10:03 01/15/17 11:23 01/15/17 10:03 01/15/17 11:24 Intake & Output 01/12/17 01/13/17 01/14/17 01/15/17 23:59 23:59 23:59 23:59 Intake Total 240 830 680 500 Balance 240 830 680 500 Weight 103 lb 11.2 oz 103 lb 11.2 oz 97 lb 6.4 oz 96 lb 12.527 oz Gen: vented, awake Heart: tachycardic, regular Lung: distant breath sounds Abd: soft, nontender Ext: no edema CBC, BMP 01/15/17 11:00 01/15/17 11:00 Active Medications Acetaminophen (Tylenol -) 650 mg PO Q4H PRN PRN Reason: PAIN OR FEVER Last Admin: 01/15/17 10:24 Dose: 650 mg Albuterol/Ipratropium (Duoneb -) 1 amp NEB QIDR [facility] Last Admin: 01/15/17 11:09 Dose: 1 amp Amino Acids (Prosource No Carb Liquid Pkt) 30 ml PO BID [facility] Last Admin: 01/15/17 10:24 Dose: 30 ml Apixaban (Eliquis -) 2.5 mg PO BID [facility] Last Admin: 01/15/17 10:24 Dose: 2.5 mg Artificial Tears (Artificial Tears) 1 drop OU BID PRN PRN Reason: DRY EYES Last Admin: 01/10/17 10:33 Dose: 1 drop Ascorbic Acid (Vitamin C -) 500 mg PO DAILY [facility] Last Admin: 01/15/17 10:24 Dose: 500 mg Atorvastatin Calcium (Lipitor -) 10 mg PO HS [facility] Last Admin: 01/14/17 22:30 Dose: 10 mg Bacitracin (Bacitracin -) 1 applic TP TID [facility] Last Admin: 01/15/17 06:26 Dose: 1 applic Chlorhexidine Gluconate (Peridex -) 15 ml MM BID [facility] Last Admin: 01/15/17 10:25 Dose: 15 ml Chlorhexidine Gluconate (Hibiclens For Decolonization -) 1 applic TP HS [facility] Last Admin: 01/14/17 22:30 Dose: 1 applic Docusate Sodium (Colace -) 300 mg PO HS [facility] Last Admin: 01/14/17 22:30 Dose: 300 mg Ferrous Sulfate (Feosol -) 325 mg PO BID [facility] Last Admin: 01/15/17 10:24 Dose: 325 mg Lactobacillus Acidophilus (Bacid -) 1 tab PO DAILY [facility] Last Admin: 01/15/17 10:24 Dose: 1 tab Loratadine (Claritin -) 10 mg PO DAILY [facility] Last Admin: 01/15/17 10:24 Dose: 10 mg Mirtazapine (Remeron -) 30 mg PO HS [facility] Last Admin: 01/14/17 22:30 Dose: 30 mg Multivitamins/Minerals/Vitamin C (Tab-A-Vit -) 1 tab PO DAILY [facility] Last Admin: 01/15/17 10:24 Dose: 1 tab Ranitidine HCl (Zantac Oral Solution -) 150 mg PO DAILY [facility] Last Admin: 01/15/17 10:24 Dose: 150 mg ASSESSMENT AND PLAN: UTI Septic Shock resolved Lactic Acidosis resolved Chronic Vent Dependent Respiratory Failure Advanced COPD Atrial Fibrillatoin h/o Cardiac Arrest s/p ICD Anemia HTN Fever - reculture - inhaled bronchodilators - IVF resuscitation - monitor urine output, creatinine - continue volume assist control - spontaneous breathing trials as tolerated - DVT/GI prophylaxis - can monitor on vent floor
[2017-01-15] MEDS ORDERED: VANCOMYCIN 1 GRAM (PRE-DOCKED) 1,000 MG/250 ML BAG IVPB ONE ×2 (14:11)
[2017-01-15] MEDS ORDERED: PIPERACILLIN/TAZOB 3.375 GM/50 ML PRE-DOCKED IVPB SCH ×2 (14:15→22:00)
[2017-01-15 14:16] LABS: PLATELET ESTIMATE ADEQUATE (NORMAL)
[2017-01-15 15:16] LABS: URINE APPEARANCE SLCLOUDY; URINE BILIRUBIN NEGATIVE (NEGATIVE); URINE BLOOD NEGATIVE (NEGATIVE); URINE COLOR YELLOW; URINE GLUCOSE (UA) NEGATIVE (NEGATIVE); URINE KETONE TRACE (NEGATIVE); URINE NITRITE NEGATIVE (NEGATIVE); URINE UROBILINOGEN NEGATIVE E.U./dl (0.2-1.0)
[2017-01-15 15:18] LABS: URINE LEUK ESTERASE TRACE (NEGATIVE); URINE PROTEIN 1+ (NEGATIVE)
[2017-01-15 15:34] LABS: URINE MUCUS FEW; URINE RBC 2 /hpf (0-3); URINE WBC 15 /hpf (3-5); YEAST RARE
[2017-01-15] MEDS: PIPERACILLIN/TAZOB 3.375 GM/50 ML PRE-DOCKED IVPB SCH (19:00)
[2017-01-15] MEDS: ATORVASTATIN CA 10 MG TABLET (FP) PO SCH (23:23)
[2017-01-15] MEDS: DOCUSATE SODIUM 100 MG CAPSULE (FP) PO SCH (23:23)
[2017-01-15] MEDS: CHLORHEXIDINE GLUCONATE 4% CLEANSER FOR DECOLONIZATION TP SCH (23:23)
[2017-01-15] MEDS: MIRTAZAPINE 15 MG TABLET (FP) PO SCH (23:24)
[2017-01-16] MEDS: PIPERACILLIN/TAZOB 3.375 GM/50 ML PRE-DOCKED IVPB SCH ×2 (03:00→09:49)
[2017-01-16] MEDS: ALBUTEROL SO4 2.5/IPRATROPIUM 0.5 INH SOL 3 ML VIAL.NEB. NEB SCH ×4 (06:00→11:09)
[2017-01-16 06:53] LABS: BASOPHIL 0.4 % (0-2.0); EOSINOPHIL 2.4 % (0-4.5); MCH 26.4 pg (25.7-33.7); MCHC 31.9 g/dl (32.0-36.0); MEAN CELL VOLUME 82.7 fl (80-96); NEUTROPHILS 80.9 % (42.8-82.8); PLATELET COUNT 193 K/MM3 (134-434); RDW 17.1 % (11.6-15.6); WHITE BLOOD COUNT 12.2 K/mm3 (4.0-10.0)
[2017-01-16] MEDS: BACITRACIN 15 GM TUBE TOPICAL OINTMENT TP SCH ×3 (07:12→21:27)
[2017-01-16 07:20] LABS: ANION GAP 8 (8-16); CALCIUM 8.2 mg/dL (8.5-10.1); CO2 33 mmol/L (21-32); CREATININE 0.6 mg/dL (0.55-1.02); GLUCOSE,RANDOM 109 mg/dL (74-106); MAGNESIUM 1.9 mg/dL (1.8-2.4); PHOSPHOROUS 2.8 mg/dL (2.5-4.9)
--- NOTE | 2017-01-16 09:06 | PN ---
Physical Exam: SUBJECTIVE: Patient seen and examined. calm during examination. oriented to person and place(know this is [facility]), not to situation or date. denies fevers, cough, chest pain, palpations, dysuria. OBJECTIVE: Vital Signs Period Temp Pulse Resp BP Sys/Vera Pulse Ox Last 24 Hr 98.0 F-101.0 F 65-111 14-20 83-106/50-58 96-97 GENERAL: The patient is awake, alert, in no acute distress. EYES: PERRL, extraocular movements intact, sclera anicteric, conjunctiva clear ENT: oropharynx clear without exudates/lesions, moist mucous membranes. NECK: trach in place with scant secretions, no surrounding erythema LUNGS: diffuse rhonchi, quiet at bases HEART: afib, S1, S2 without murmur ABDOMEN: Soft, nontender, nondistended, normoactive bowel sounds, no guarding EXTREMITIES: 2+ radia/dorsalis pedis pulses, warm, well-perfused, no edema. Laboratory Results - last 24 hr 01/15/17 01/15/17 01/15/17 11:00 11:00 12:30 WBC 21.0 H D RBC 4.11 Hgb 10.7 Hct 34.1 MCV 83.0 MCHC 31.5 L RDW 17.0 H Plt Count 189 MPV 8.2 Neutrophils % 86.0 H Lymphocytes % 5.0 L D Monocytes % 5.0 Eosinophils % 1.0 Basophils % 0.0 Band Neutrophils 2.0 Differential Comment Manual diff done Reactive Lymphocytes 1 Platelet Estimate Adequate Sodium 140 Potassium 3.8 Chloride 101 Carbon Dioxide 32 Anion Gap 7 L BUN 20 H D Creatinine 0.7 POC Glucometer Random Glucose 143 H Lactic Acid 1.6 Calcium 8.3 L Phosphorus Magnesium Urine Color Urine Appearance Urine pH Ur Specific [place] Urine Protein Urine Glucose (UA) Urine Ketones Urine Blood Urine Nitrite Urine Bilirubin Urine Urobilinogen Ur Leukocyte Esterase Urine RBC Urine WBC Ur Epithelial Cells Urine Mucus Urine Yeast 01/15/17 01/15/17 01/15/17 12:34 14:30 16:45 WBC RBC Hgb Hct MCV MCHC RDW Plt Count MPV Neutrophils % Lymphocytes % Monocytes % Eosinophils % Basophils % Band Neutrophils Differential Comment Reactive Lymphocytes Platelet Estimate Sodium Potassium Chloride Carbon Dioxide Anion Gap BUN Creatinine POC Glucometer [id number] 188.73158 Random Glucose Lactic Acid Calcium Phosphorus Magnesium Urine Color Yellow Urine Appearance Slcloudy Urine pH 5.0 D Ur Specific [place] 1.020 Urine Protein 1+ H Urine Glucose (UA) Negative Urine Ketones Trace H Urine Blood Negative Urine Nitrite Negative Urine Bilirubin Negative Urine Urobilinogen Negative Ur Leukocyte Esterase Trace H Urine RBC 2 Urine WBC 15 Ur Epithelial Cells Rare Urine Mucus Few Urine Yeast Rare 01/16/17 01/16/17 05:20 05:20 WBC 12.2 H D RBC 3.84 Hgb 10.1 L Hct 31.7 L MCV 82.7 MCHC 31.9 L RDW 17.1 H Plt Count 193 MPV 9.0 Neutrophils % 80.9 Lymphocytes % 8.8 D Monocytes % 7.5 Eosinophils % 2.4 D Basophils % 0.4 D Band Neutrophils Differential Comment Reactive Lymphocytes Platelet Estimate Sodium 142 Potassium 3.7 Chloride 101 Carbon Dioxide 33 H Anion Gap 8 BUN 25 H D Creatinine 0.6 POC Glucometer Random Glucose 109 H D Lactic Acid Calcium 8.2 L Phosphorus 2.8 D Magnesium 1.9 Urine Color Urine Appearance Urine pH Ur Specific [place] Urine Protein Urine Glucose (UA) Urine Ketones Urine Blood Urine Nitrite Urine Bilirubin Urine Urobilinogen Ur Leukocyte Esterase Urine RBC Urine WBC Ur Epithelial Cells Urine Mucus Urine Yeast Active Medications Generic Name Dose Route Start Last Admin Trade Name Freq PRN Reason Stop Dose Admin Acetaminophen 650 mg 01/08/17 09:26 01/15/17 10:24 Tylenol - PO 650 mg Q4H PRN Administration PAIN OR FEVER Albuterol/Ipratropium 1 amp 01/08/17 12:00 01/16/17 06:00 Duoneb - NEB 1 amp QIDR TERRY Administration Amino Acids 30 ml 01/08/17 10:00 01/15/17 23:24 Prosource No Carb Liquid Pkt PO 30 ml BID TERRY Administration Apixaban 2.5 mg 01/12/17 10:00 01/15/17 23:23 Eliquis - PO 2.5 mg BID TERRY Administration Artificial Tears 1 drop 01/08/17 09:48 01/10/17 10:33 Artificial Tears OU 1 drop BID PRN Administration DRY EYES Ascorbic Acid 500 mg 01/08/17 10:00 01/15/17 10:24 Vitamin C - PO 500 mg DAILY TERRY Administration Atorvastatin Calcium 10 mg 01/08/17 22:00 01/15/17 23:23 Lipitor - PO 10 mg HS TERRY Administration Bacitracin 1 applic 01/08/17 14:00 01/16/17 07:12 Bacitracin - TP 1 applic TID TERRY Administration Chlorhexidine Gluconate 15 ml 01/09/17 22:00 01/15/17 23:24 Peridex - MM 15 ml BID TERRY Administration Chlorhexidine Gluconate 1 applic 01/09/17 22:00 01/15/17 23:23 Hibiclens For Decolonization - TP 1 applic HS TERRY Administration Docusate Sodium 300 mg 01/08/17 22:00 01/15/17 23:23 Colace - PO 300 mg HS TERRY Administration Ferrous Sulfate 325 mg 01/08/17 10:00 01/15/17 23:23 Feosol - PO 325 mg BID TERRY Administration Lactobacillus Acidophilus 1 tab 01/08/17 10:00 01/15/17 10:24 Bacid - PO 1 tab DAILY TERRY Administration Loratadine 10 mg 01/08/17 10:00 01/15/17 10:24 Claritin - PO 10 mg DAILY TERRY Administration Mirtazapine 30 mg 01/13/17 15:12 01/15/17 23:24 Remeron - PO 30 mg HS TERRY Administration Multivitamins/Minerals/Vitamin C 1 tab 01/08/17 10:00 01/15/17 10:24 Tab-A-Vit - PO 1 tab DAILY TERRY Administration Piperacillin Sod/Tazobactam Sod 3.375 gm 01/15/17 14:17 01/16/17 03:00 Zosyn 3.375gm Ivpb (Pre-Docked) IVPB 01/16/17 14:14 3.375 gm Q8H-IV TERRY Administration Protocol Ranitidine HCl 150 mg 01/14/17 10:00 01/15/17 10:24 Zantac Oral Solution - PO 150 mg DAILY TERRY Administration Microbiology 01/15/17 11:20 Blood - Peripheral Venous Blood Culture - Preliminary NO GROWTH OBTAINED AFTER 24 HOURS, INCUBATION TO CONTINUE FOR 4 DAYS. 01/15/17 11:15 Blood - Peripheral Venous Blood Culture - Preliminary NO GROWTH OBTAINED AFTER 24 HOURS, INCUBATION TO CONTINUE FOR 4 DAYS. ASSESSMENT/PLAN: 82 yr old woman with afib (on xarelto) hx of NE, s/p AICD placement, hx of GIB< s/p trach transferred from [facility] due to fevers, black tarry stool, admitted to ICU for hypotension requiring pressors and UTI, again had fever of 101 and leucocytosis. - lundberg ordered today because patient had groin erythema from contact dermatitis from urinary incontinence ID fever and leucocytosis - sepsis from pulmonary or UTI, improved leucocytosis - culture: blood NGTD, urine and sputum cx pending - empiric zosyn q8hr IVPB -- started 01/15 completed 5-day course of abx for UTI recently consult Dr. Simon GI c.diff negative patient tolerating po famotadine IVPB BID Cardiovascular htn - controlled, BP lower today. eliquis started for afib Afib, rate controlled consult: Dr. ellsworth Pulmonary ventolin prn q6hr and duonebs qidr terry claritin 10mg daily po PMV ordered, assessed by Gloria Syed, pt is not tolerating cpap mode, AC vent dependent hematology normocytic anemia - iron studies; iron deficiency anemia with high ferritin continue oral feosol Renal replete electrolytes prn Neurological remeron 15mg po HS Diet - soft with thin liquids, assessed by gloria syed Dvt - on eliquis Code status: DNR Dispo - transfer to med/surg(5s vent floor) Visit type - Emergency Visit Emergency Visit: No - New Patient This patient is new to me today: No - Critical Care Critical Care patient: Yes Total Critical Care Time (in minutes): 36 Critical Care Statement: The care of this patient involved high complexity decision making to prevent further life threatening deterioration of the patient 's condition and/or to evalute & treat vital organ system(s) failure or risk of failure.
[2017-01-16] MEDS: ASCORBIC ACID 500 MG TABLET (FP) PO SCH (09:47)
[2017-01-16] MEDS: MULTIVITAMINS (DAILY MVI) TABLET (FP) PO SCH (09:47)
[2017-01-16] MEDS: AMINO ACIDS/PROTEIN HYDROLYS 30 ML LIQUID.PKT PO SCH ×2 (09:48→21:28)
[2017-01-16] MEDS: LACTOBACILLUS ACIDOPHILUS 1 EACH TAB (FP) PO SCH (09:48)
[2017-01-16] MEDS: LORATADINE 10 MG TABLET PO SCH (09:48)
[2017-01-16] MEDS: RANITIDINE HCL 150 MG/10 ML UNIT-DOSE CUP PO SCH (09:48)
[2017-01-16] MEDS: APIXABAN 2.5 MG TABLET PO SCH ×2 (09:48→21:27)
[2017-01-16] MEDS: FERROUS SO4 325 MG TABLET (FP) PO SCH ×2 (09:48→21:27)
[2017-01-16] MEDS: CHLORHEXIDINE GLUCONATE 0.12% 15ML CUP MM SCH ×2 (09:49→21:28)
--- NOTE | 2017-01-16 11:04 | PN ---
Teaching Attending Note Name of Resident: Jose Luna ATTENDING PHYSICIAN STATEMENT I saw and evaluated the patient. I reviewed the resident's note and discussed the case with the resident. I agree with the resident's findings and plan as documented. SUBJECTIVE: Pt seen and examined in the ICU. Vented, awake. No further fevers. More tachypneic. OBJECTIVE: Last Vital Signs Temp Pulse Resp BP Pulse Ox 99.3 F 94 H 27 H 91/69 98 01/16/17 10:00 01/16/17 10:27 01/16/17 10:20 01/16/17 10:00 01/16/17 10:27 Intake & Output 01/13/17 01/14/17 01/15/17 01/16/17 23:59 23:59 23:59 23:59 Intake Total 830 680 950 300 Balance 830 680 950 300 Weight 103 lb 11.2 oz 97 lb 6.4 oz 96 lb 12.527 oz 101 lb 13.657 oz Gen: vented, awake, tachypneic Heart: RRR Lung: distant breath sounds Abd: soft, nontender Ext: no edema CBC, BMP 01/16/17 05:20 01/16/17 05:20 Active Medications Acetaminophen (Tylenol -) 650 mg PO Q4H PRN PRN Reason: PAIN OR FEVER Last Admin: 01/15/17 10:24 Dose: 650 mg Albuterol/Ipratropium (Duoneb -) 1 amp NEB QIDR [facility] Last Admin: 01/16/17 11:00 Dose: 1 amp Amino Acids (Prosource No Carb Liquid Pkt) 30 ml PO BID [facility] Last Admin: 01/16/17 09:48 Dose: 30 ml Apixaban (Eliquis -) 2.5 mg PO BID [facility] Last Admin: 01/16/17 09:48 Dose: 2.5 mg Artificial Tears (Artificial Tears) 1 drop OU BID PRN PRN Reason: DRY EYES Last Admin: 01/10/17 10:33 Dose: 1 drop Ascorbic Acid (Vitamin C -) 500 mg PO DAILY [facility] Last Admin: 01/16/17 09:47 Dose: 500 mg Atorvastatin Calcium (Lipitor -) 10 mg PO HS [facility] Last Admin: 01/15/17 23:23 Dose: 10 mg Bacitracin (Bacitracin -) 1 applic TP TID [facility] Last Admin: 01/16/17 07:12 Dose: 1 applic Chlorhexidine Gluconate (Peridex -) 15 ml MM BID [facility] Last Admin: 01/16/17 09:49 Dose: 15 ml Chlorhexidine Gluconate (Hibiclens For Decolonization -) 1 applic TP HS [facility] Last Admin: 01/15/17 23:23 Dose: 1 applic Docusate Sodium (Colace -) 300 mg PO HS [facility] Last Admin: 01/15/17 23:23 Dose: 300 mg Ferrous Sulfate (Feosol -) 325 mg PO BID [facility] Last Admin: 01/16/17 09:48 Dose: 325 mg Lactobacillus Acidophilus (Bacid -) 1 tab PO DAILY [facility] Last Admin: 01/16/17 09:48 Dose: 1 tab Loratadine (Claritin -) 10 mg PO DAILY [facility] Last Admin: 01/16/17 09:48 Dose: 10 mg Mirtazapine (Remeron -) 30 mg PO [facility] Last Admin: 01/15/17 23:24 Dose: 30 mg Multivitamins/Minerals/Vitamin C (Tab-A-Vit -) 1 tab PO DAILY [facility] Last Admin: 01/16/17 09:47 Dose: 1 tab Piperacillin Sod/Tazobactam Sod (Zosyn 3.375gm Ivpb (Pre-Docked)) 3.375 gm IVPB Q8H-IV [facility] PRN Reason: Protocol Stop: 01/16/17 14:14 Last Admin: 01/16/17 09:49 Dose: 3.375 gm Ranitidine HCl (Zantac Oral Solution -) 150 mg PO DAILY [facility] Last Admin: 01/16/17 09:48 Dose: 150 mg ASSESSMENT AND PLAN: UTI Septic Shock resolved Lactic Acidosis resolved Chronic Vent Dependent Respiratory Failure Advanced COPD Atrial Fibrillatoin h/o Cardiac Arrest s/p ICD Anemia HTN Fever - empiric antibiotics per ID - f/u cultures - inhaled bronchodilators - check CXR - monitor urine output, creatinine - continue volume assist control - spontaneous breathing trials as tolerated - DVT/GI prophylaxis - can monitor on vent floor
--- NOTE | 2017-01-16 11:29 | PN ---
Progress Note, BIOMEDICAL INSTRUMENT TECHNICIAN - Note Progress Note: Selected Entries 01/14/17 01/14/17 01/14/17 09:16 15:51 19:00 Breakfast 50% 50% Lunch 50% 25% Supper 50% Temperature 01/15/17 01/15/17 01/15/17 02:00 08:01 10:03 Breakfast 75% Lunch Supper Temperature 98 F 100.1 F H 01/15/17 01/15/17 01/15/17 10:30 13:03 14:00 Breakfast Lunch 75% Supper Temperature 101.0 F H 98.0 F 01/15/17 01/15/17 01/16/17 18:00 22:00 02:00 Breakfast Lunch Supper Temperature 98.1 F 98.2 F 98.4 F 01/16/17 10:00 Breakfast Lunch Supper Temperature 99.3 F Laboratory Tests 01/14/17 01/15/17 01/16/17 12:20 11:00 05:20 WBC 14.7 H D 21.0 H D 12.2 H D Tolerating soft diet/thin liquid. CXR 01/14 unchanged.
--- NOTE | 2017-01-16 11:45 | PN ---
Progress Note (short form) - Note Progress Note: awake and alert Vital Signs Period Temp Pulse Resp BP Sys/Vera Pulse Ox Last 24 Hr 98.0 F-99.3 F 65-111 14-27 83-106/50-69 96-98 trach to vent cor-rrr lungs decreased bs at bases abd sot,nt ext no edema CBC, BMP 01/16/17 05:20 01/16/17 05:20 Microbiology 01/15/17 11:20 Blood - Peripheral Venous Blood Culture - Preliminary NO GROWTH OBTAINED AFTER 24 HOURS, INCUBATION TO CONTINUE FOR 4 DAYS. 01/15/17 11:15 Blood - Peripheral Venous Blood Culture - Preliminary NO GROWTH OBTAINED AFTER 24 HOURS, INCUBATION TO CONTINUE FOR 4 DAYS. 01/08/17 22:02 Blood - Peripheral Venous Blood Culture - Final NO GROWTH AFTER 5 DAYS INCUBATION 01/08/17 22:02 Blood - Peripheral Venous Blood Culture - Final NO GROWTH AFTER 5 DAYS INCUBATION 01/10/17 17:45 Stool Clostridium difficile Antigen (JUNO) - Final 01/10/17 17:45 Stool Clostridium difficile Toxin Assay - Final 01/08/17 04:00 Urine - Urine - Catheterized Urine Culture - Final Providencia Stuartii a/p sepsis ?source f/u cultures continue zosyn chronic respiratory failure Problem List - Problems (1) Sepsis Code(s): A41.9 - SEPSIS, UNSPECIFIED ORGANISM (2) UTI (urinary tract infection) Code(s): N39.0 - URINARY TRACT INFECTION, SITE NOT SPECIFIED Qualifiers:
[2017-01-16] MEDS ORDERED: NYSTATIN POWDER 100,000 UNITS/GM - 15 GM TOPICAL POWDER TP PRN (15:21)
--- NOTE | 2017-01-16 19:15 | PN ---
Progress Note, Physician Chief Complaint: FEVER History of Present Illness: AWAKE AND ALERT ORIGINALLY CAME IN FOR A UTI, COMFORTABLE IN BED ON MECH EVNT VIA TRACH, ALERT NO RECENT TEMP SPIKES, WBC IMPROVED, RESPONDING TO ZOSYN, AWAITING CULTURES. - Current Medication List Current Medications: Active Medications Acetaminophen (Tylenol -) 650 mg PO Q4H PRN PRN Reason: PAIN OR FEVER Last Admin: 01/15/17 10:24 Dose: 650 mg Amino Acids (Prosource No Carb Liquid Pkt) 30 ml PO BID [facility] Last Admin: 01/16/17 09:48 Dose: 30 ml Apixaban (Eliquis -) 2.5 mg PO BID [facility] Last Admin: 01/16/17 09:48 Dose: 2.5 mg Artificial Tears (Artificial Tears) 1 drop OU BID PRN PRN Reason: DRY EYES Last Admin: 01/10/17 10:33 Dose: 1 drop Ascorbic Acid (Vitamin C -) 500 mg PO DAILY [facility] Last Admin: 01/16/17 09:47 Dose: 500 mg Atorvastatin Calcium (Lipitor -) 10 mg PO [facility] Last Admin: 01/15/17 23:23 Dose: 10 mg Bacitracin (Bacitracin -) 1 applic TP TID [facility] Last Admin: 01/16/17 14:22 Dose: 1 applic Chlorhexidine Gluconate (Peridex -) 15 ml MM BID [facility] Last Admin: 01/16/17 09:49 Dose: 15 ml Chlorhexidine Gluconate (Hibiclens For Decolonization -) 1 applic TP [facility] Last Admin: 01/15/17 23:23 Dose: 1 applic Docusate Sodium (Colace -) 300 mg PO [facility] Last Admin: 01/15/17 23:23 Dose: 300 mg Ferrous Sulfate (Feosol -) 325 mg PO BID [facility] Last Admin: 01/16/17 09:48 Dose: 325 mg Lactobacillus Acidophilus (Bacid -) 1 tab PO DAILY [facility] Last Admin: 01/16/17 09:48 Dose: 1 tab Loratadine (Claritin -) 10 mg PO DAILY [facility] Last Admin: 01/16/17 09:48 Dose: 10 mg Mirtazapine (Remeron -) 30 mg PO [facility] Last Admin: 01/15/17 23:24 Dose: 30 mg Multivitamins/Minerals/Vitamin C (Tab-A-Vit -) 1 tab PO DAILY [facility] Last Admin: 01/16/17 09:47 Dose: 1 tab Nystatin (Nystop Powder -) 1 applic TP TID PRN PRN Reason: WOUND CARE Ranitidine HCl (Zantac Oral Solution -) 150 mg PO DAILY [facility] Last Admin: 01/16/17 09:48 Dose: 150 mg - Objective Vital Signs: Vital Signs Temperature 99 F 01/16/17 18:00 Pulse Rate 94 H 01/16/17 18:00 Respiratory Rate 22 01/16/17 18:15 Blood Pressure 136/80 01/16/17 18:00 O2 Sat by Pulse Oximetry (%) 98 01/16/17 10:27 Constitutional: Yes: Well Nourished, No Distress, Calm Cardiovascular: Yes: Regular Rate and Rhythm Respiratory: Yes: Regular Gastrointestinal: Yes: Normal Bowel Sounds Musculoskeletal: Yes: WNL Extremities: Yes: WNL Edema: No Peripheral Pulses WNL: Yes Neurological: Yes: Alert Psychiatric: Yes: Alert Labs: CBC, BMP 01/16/17 05:20 01/16/17 05:20 INR, PTT INR 1.30 (0.82-1.09) H 01/08/17 11:30 Problem List - Problems (1) Anemia Assessment/Plan: STOOL GUAIAC POSITIVE, H/H STABLE AT THIS TIME. Code(s): D64.9 - ANEMIA, UNSPECIFIED (2) Chronic respiratory failure Assessment/Plan: MECHANICALLY VENTILATED WITH PASSY YANG VALVE Code(s): J96.10 - CHRONIC RESPIRATORY FAILURE, UNSP W HYPOXIA OR HYPERCAPNIA Qualifiers: Qualified Code(s): J96.12 - Chronic respiratory failure with hypercapnia Assessment/Plan ON MECHANICAL VENT, COMFORTABLE. RESPONDING TO IV ABX-ZOSYN MONITOR LABS, WBC IMPROVED SEPSIS WORKUP-UC,BC,SC PENDING
[2017-01-16] MEDS ORDERED: PT OWN MED DRAWER 7, Y5N ONE (21:25)
[2017-01-16] MEDS: MIRTAZAPINE 15 MG TABLET (FP) PO SCH (21:27)
[2017-01-16] MEDS: DOCUSATE SODIUM 100 MG CAPSULE (FP) PO SCH (21:27)
[2017-01-16] MEDS: ATORVASTATIN CA 10 MG TABLET (FP) PO SCH (21:27)
[2017-01-16] MEDS: CHLORHEXIDINE GLUCONATE 4% CLEANSER FOR DECOLONIZATION TP SCH (21:28)
[2017-01-17] MEDS ORDERED: ACETAMINOPHEN 325 MG TABLET (FP) PO PRN (05:54)
[2017-01-17] MEDS: BACITRACIN 15 GM TUBE TOPICAL OINTMENT TP SCH ×3 (06:33→21:21)
[2017-01-17 07:24] LABS: BASOPHIL 0.6 % (0-2.0); EOSINOPHIL 6.7 % (0-4.5); MCH 27.2 pg (25.7-33.7); MCHC 32.8 g/dl (32.0-36.0); MEAN PLT VOLUME 8.6 fl (7.5-11.1); NEUTROPHILS 75.9 % (42.8-82.8); PLATELET COUNT 203 K/MM3 (134-434); RDW 16.5 % (11.6-15.6); WHITE BLOOD COUNT 9.9 K/mm3 (4.0-10.0)
[2017-01-17 07:45] LABS: ANION GAP 8 (8-16); CALCIUM 8.2 mg/dL (8.5-10.1); CO2 34 mmol/L (21-32); CREATININE 0.4 mg/dL (0.55-1.02); GLUCOSE,RANDOM 94 mg/dL (74-106); PHOSPHOROUS 2.7 mg/dL (2.5-4.9)
[2017-01-17] MEDS ORDERED: CEFUROXIME AXETIL 250 MG TABLET PO SCH (10:00)
[2017-01-17] MEDS ORDERED: PT OWN MED DRAWER 7, Y5N ONE ×2 (10:59→11:14)
[2017-01-17] MEDS: NYSTATIN POWDER 100,000 UNITS/GM - 15 GM TOPICAL POWDER TP PRN ×2 (11:03→21:20)
[2017-01-17] MEDS: LACTOBACILLUS ACIDOPHILUS 1 EACH TAB (FP) PO SCH (11:03)
[2017-01-17] MEDS: LORATADINE 10 MG TABLET PO SCH (11:04)
[2017-01-17] MEDS: FERROUS SO4 325 MG TABLET (FP) PO SCH ×2 (11:04→21:21)
[2017-01-17] MEDS: ASCORBIC ACID 500 MG TABLET (FP) PO SCH (11:04)
[2017-01-17] MEDS: CHLORHEXIDINE GLUCONATE 0.12% 15ML CUP MM SCH ×2 (11:04→21:21)
[2017-01-17] MEDS: MULTIVITAMINS (DAILY MVI) TABLET (FP) PO SCH (11:04)
[2017-01-17] MEDS: RANITIDINE HCL 150 MG/10 ML UNIT-DOSE CUP PO SCH (11:04)
[2017-01-17] MEDS: AMINO ACIDS/PROTEIN HYDROLYS 30 ML LIQUID.PKT PO SCH ×2 (11:04→21:20)
[2017-01-17] MEDS: APIXABAN 2.5 MG TABLET PO SCH ×2 (11:05→21:21)
--- NOTE | 2017-01-17 15:39 | PN ---
Progress Note (short form) - Note Progress Note: PULMONARY AWAKE/ALERT/AFEBRILE Gen: vented Heart: RRR Lung: distant breath sounds Abd: soft, nontender Ext: no edema Meds/notes/imaging reviewed ASSESSMENT AND PLAN: UTI Septic Shock resolved Lactic Acidosis resolved Chronic Vent Dependent Respiratory Failure Advanced COPD Atrial Fibrillatoin h/o Cardiac Arrest s/p ICD Anemia HTN Fever - empiric antibiotics per ID - f/u cultures - inhaled bronchodilators - check CXR - monitor urine output, creatinine - continue volume assist control - spontaneous breathing trials as tolerated - DVT/GI prophylaxis - can monitor on vent floor Brandi FLOREZ MD
--- NOTE | 2017-01-17 16:08 | PN ---
Progress Note (short form) - Note Progress Note: awake and alert NAD Vital Signs Period Temp Pulse Resp BP Sys/Vera Pulse Ox Last 24 Hr 98.2 F-99 F 93-122 14-29 110-136/55-82 97-98 cor-rrr lungs decreased bs at bases abd soft,nt ext no edema CBC, BMP 01/17/17 06:40 01/17/17 06:40 Microbiology 01/15/17 14:30 Sputum - Endotrachea Suction/Ventilator Gram Stain - Final 01/15/17 14:30 Sputum - Endotrachea Suction/Ventilator Sputum Culture - Preliminary Non Lactose Fermenting Gnb Non Lactose Fermenting Gnb#2 Non Lactose Fermenting Gnb#3 01/15/17 14:30 Urine - Urine - Catheterized Urine Culture - Final NO GROWTH OBTAINED 01/15/17 11:20 Blood - Peripheral Venous Blood Culture - Preliminary NO GROWTH OBTAINED AFTER 48 HOURS, INCUBATION TO CONTINUE FOR 3 DAYS. 01/15/17 11:15 Blood - Peripheral Venous Blood Culture - Preliminary NO GROWTH OBTAINED AFTER 48 HOURS, INCUBATION TO CONTINUE FOR 3 DAYS. 01/08/17 22:02 Blood - Peripheral Venous Blood Culture - Final NO GROWTH AFTER 5 DAYS INCUBATION 01/08/17 22:02 Blood - Peripheral Venous Blood Culture - Final NO GROWTH AFTER 5 DAYS INCUBATION 01/10/17 17:45 Stool Clostridium difficile Antigen (JUNO) - Final 01/10/17 17:45 Stool Clostridium difficile Toxin Assay - Final 01/08/17 04:00 Urine - Urine - Catheterized Urine Culture - Final Providencia Stuartii a/p fever ?source f/u cultures switch to po ceftin d/w Dr Suarez chronic respiratory failure Problem List - Problems (1) Sepsis Code(s): A41.9 - SEPSIS, UNSPECIFIED ORGANISM (2) UTI (urinary tract infection) Code(s): N39.0 - URINARY TRACT INFECTION, SITE NOT SPECIFIED Qualifiers:
--- NOTE | 2017-01-17 17:19 | PN ---
Progress Note, Physician Chief Complaint: FEVER History of Present Illness: AWAKE AND ALERT ORIGINALLY CAME IN FOR A UTI, BECAME HYPOTENSIVE, HER LACTIC ACID WAS HIGH, SEPTIC? OR SECONDARY TO ALBUTEROL? BC NEGATIVE, UC CONFIRMED UTI, COMFORTABLE IN BED ON MECH EVNT VIA TRACH, ALERT NO RECENT TEMP SPIKES, WBC IMPROVED, RESPONDING TO ZOSYN, AWAITING CULTURES. - Current Medication List Current Medications: Active Medications Acetaminophen (Tylenol -) 650 mg PO Q4H PRN PRN Reason: PAIN OR FEVER Amino Acids (Prosource No Carb Liquid Pkt) 30 ml PO BID [facility] Last Admin: 01/17/17 11:04 Dose: 30 ml Apixaban (Eliquis -) 2.5 mg PO BID [facility] Last Admin: 01/17/17 11:05 Dose: 2.5 mg Artificial Tears (Artificial Tears) 1 drop OU BID PRN PRN Reason: DRY EYES Ascorbic Acid (Vitamin C -) 500 mg PO DAILY [facility] Last Admin: 01/17/17 11:04 Dose: 500 mg Atorvastatin Calcium (Lipitor -) 10 mg PO HS [facility] Bacitracin (Bacitracin -) 1 applic TP TID [facility] Last Admin: 01/17/17 06:33 Dose: 1 applic Cefuroxime Axetil (Ceftin -) 500 mg PO BID [facility] Chlorhexidine Gluconate (Peridex -) 15 ml MM BID [facility] Last Admin: 01/17/17 11:04 Dose: 15 ml Docusate Sodium (Colace -) 300 mg PO HS [facility] Ferrous Sulfate (Feosol -) 325 mg PO BID [facility] Last Admin: 01/17/17 11:04 Dose: 325 mg Lactobacillus Acidophilus (Bacid -) 1 tab PO DAILY [facility] Last Admin: 01/17/17 11:03 Dose: 1 tab Loratadine (Claritin -) 10 mg PO DAILY [facility] Last Admin: 01/17/17 11:04 Dose: 10 mg Mirtazapine (Remeron -) 30 mg PO HS [facility] Multivitamins/Minerals/Vitamin C (Tab-A-Vit -) 1 tab PO DAILY [facility] Last Admin: 01/17/17 11:04 Dose: 1 tab Nystatin (Nystop Powder -) 1 applic TP TID PRN PRN Reason: WOUND CARE Last Admin: 01/17/17 11:03 Dose: 1 applic Ranitidine HCl (Zantac Oral Solution -) 150 mg PO DAILY [facility] Last Admin: 01/17/17 11:04 Dose: 150 mg - Objective Vital Signs: Vital Signs Temperature 98.9 F 01/17/17 14:09 Pulse Rate 101 H 01/17/17 14:09 Respiratory Rate 15 01/17/17 14:37 Blood Pressure 125/70 01/17/17 14:09 O2 Sat by Pulse Oximetry (%) 97 01/17/17 10:20 Constitutional: Yes: Well Nourished, No Distress, Calm Cardiovascular: Yes: Regular Rate and Rhythm Respiratory: Yes: Regular Gastrointestinal: Yes: Normal Bowel Sounds Extremities: Yes: WNL Edema: No Peripheral Pulses WNL: Yes Neurological: Yes: Alert Labs: CBC, BMP 01/17/17 06:40 01/17/17 06:40 INR, PTT INR 1.30 (0.82-1.09) H 01/08/17 11:30 Problem List - Problems (1) Anemia Assessment/Plan: STOOL WAS GUAIAC POSITIVE, H/H STABLE AT THIS TIME. Code(s): D64.9 - ANEMIA, UNSPECIFIED (2) Chronic respiratory failure Assessment/Plan: MECHANICALLY VENTILATED WITH PASSY YANG VALVE Code(s): J96.10 - CHRONIC RESPIRATORY FAILURE, UNSP W HYPOXIA OR HYPERCAPNIA Qualifiers: Qualified Code(s): J96.12 - Chronic respiratory failure with hypercapnia Assessment/Plan ON MECHANICAL VENT, COMFORTABLE. IV ABX CHANGED TO PO Microbiology 01/15/17 14:30 Gram Stain - Final Sputum - Endotrachea Suction/Ventilator Sputum Culture - Preliminary Non Lactose Fermenting Gnb Non Lactose Fermenting Gnb#2 Non Lactose Fermenting Gnb#3 01/15/17 14:30 Urine Culture - Final Urine - Urine - Catheterized NO GROWTH OBTAINED 01/15/17 11:20 Blood Culture - Preliminary Blood - Peripheral Venous NO GROWTH OBTAINED AFTER 48 HOURS, INCUBATION TO CONTINUE FOR 3 DAYS. 01/15/17 11:15 Blood Culture - Preliminary Blood - Peripheral Venous NO GROWTH OBTAINED AFTER 48 HOURS, INCUBATION TO CONTINUE FOR 3 DAYS. NO FEBRILE EVENTS OKAY TO BE TRANSFERRED TO [facility] IN AM
--- NOTE | 2017-01-17 17:25 | DS ---
Physical Examination Vital Signs: Vital Signs Temperature 98.9 F 01/17/17 14:09 Pulse Rate 101 H 01/17/17 14:09 Respiratory Rate 15 01/17/17 14:37 Blood Pressure 125/70 01/17/17 14:09 O2 Sat by Pulse Oximetry (%) 97 01/17/17 10:20 Findings/Remarks: 81 year old female, with a significant past medical history of Afib, CHF, cardiac arrest 1998, COPD, ventilatory failure s/p trach, vent dependent, UTIs and GI bleed, who presents to the emergency department via ems from [facility] with black tarry stools and fever today. The patient is afebrile in the ED. She is non-verbal on the vent, however, is able to respond via hand gestures and head nodding. Constitutional: Yes: Well Nourished, No Distress, Calm Cardiovascular: Yes: Regular Rate and Rhythm Respiratory: Yes: Regular Gastrointestinal: Yes: Normal Bowel Sounds Musculoskeletal: Yes: WNL Extremities: Yes: WNL Edema: No Peripheral Pulses WNL: Yes Neurological: Yes: Alert Psychiatric: Yes: Alert Labs: CBC, BMP 01/17/17 06:40 01/17/17 06:40 Discharge Summary Reason For Visit: URINARY TRACT INFECTION/SEPSIS Current Active Problems Acute kidney injury (Acute) Altered mental status (Acute) Anemia (Acute) Dehydration (Acute) Hyperlipemia (Acute) Lactate blood increase (Acute) Sepsis (Acute) UTI (urinary tract infection) (Acute) Hospital Course: 81 year old female, with a significant past medical history of Afib, CHF, cardiac arrest 1998, COPD, ventilatory failure s/p trach, vent dependent, UTIs and GI bleed, who presents to the emergency department via ems from [facility] with black tarry stools and fever today. The patient is afebrile in the ED. She is non-verbal on the vent, however, is able to respond via hand gestures and head nodding. SHE WAS FOUND TO HAVE UTI FOR WHICH SHE WAS TREATED WITH IV ABX. SHE IMPROVED SHE BECAME FEBRILE AGAIN. SPUTUM CULTURES SHOWED Microbiology 01/15/17 14:30 Sputum - Endotrachea Suction/Ventilator Gram Stain - Final 01/15/17 14:30 Sputum - Endotrachea Suction/Ventilator Sputum Culture - Preliminary Non Lactose Fermenting Gnb Non Lactose Fermenting Gnb#2 Non Lactose Fermenting Gnb#3 01/15/17 14:30 Urine - Urine - Catheterized Urine Culture - Final NO GROWTH OBTAINED 01/15/17 11:20 Blood - Peripheral Venous Blood Culture - Preliminary NO GROWTH OBTAINED AFTER 48 HOURS, INCUBATION TO CONTINUE FOR 3 DAYS. 01/15/17 11:15 Blood - Peripheral Venous Blood Culture - Preliminary NO GROWTH OBTAINED AFTER 48 HOURS, INCUBATION TO CONTINUE FOR 3 DAYS. 01/08/17 22:02 Blood - Peripheral Venous Blood Culture - Final NO GROWTH AFTER 5 DAYS INCUBATION 01/08/17 22:02 Blood - Peripheral Venous Blood Culture - Final NO GROWTH AFTER 5 DAYS INCUBATION 01/10/17 17:45 Stool Clostridium difficile Antigen (JUNO) - Final 01/10/17 17:45 Stool Clostridium difficile Toxin Assay - Final 01/08/17 04:00 Urine - Urine - Catheterized Urine Culture - Final Providencia Stuartii AND SHE HAD LEUKOCYTOCIS. SHE WAS SEEN BY ID AGAIN, WAS STARTED ON IV ABX, TO WHICH [facility] RESPONDED WELL. IV ABX WERE THEN CHANGED TO PO. FOR FURTHER FEBRILE EVENTS Condition: Stable - Instructions Disposition: LONG-TERM FACILITY - Home Medications Comprehensive Discharge Medication List: Ambulatory Orders Acetaminophen [Tylenol] 650 mg PO Q4H PRN 10/19/16 Ascorbic Acid [Vitamin C -] 500 mg PO DAILY 10/19/16 Docusate Sodium 300 mg PO HS 10/19/16 Ferrous Sulfate 325 mg PO BID 10/19/16 Hypromellose 0.5% Opth Soln [Artificial Tears] 1 drop OU BID 10/19/16 Loratadine 10 mg PO DAILY 10/19/16 Multivitamin [Poly-Vitamin] 1 each PO DAILY 10/19/16 Omeprazole 20 mg PO DAILY 10/19/16 Prednisone [Deltasone -] 20 mg PO DAILY 10/19/16 Rivaroxaban [Xarelto -] 20 mg PO DAILY 10/19/16 Simvastatin [Zocor -] 20 mg PO HS 10/19/16 Albuterol 2.5/Ipratropium 0.5 [Duoneb -] 1 amp NEB QIDR amp 10/24/16 Lactobacillus Acidophilus [Bacid -] 1 tab PO DAILY tab 10/24/16 Aa/Hydrolyzed Collagen, Whey [Lps 15-30 Liquid] 30 ml PO BID 01/08/17 Bacitracin - [Bacitracin Topical Ointment -] 1 applic TP TID 01/08/17 Ipratropium 0.02% Nebulizer [Atrovent *Nebulizer*] 0.5 mg IH Q6H 01/08/17 Mirtazapine [Remeron -] 15 mg PO HS 01/08/17 SHE WILL BE TRANSFERRED WITH HER USUAL MEDICATIONS ALONG WITH CEFTIN 500 MG PO BID FOR ANOTHER 7 DAYS.
[2017-01-17] MEDS: ARTIFICIAL TEARS (POLYVINYL ALCOHOL 1.4%) OPTH DROPS OU PRN (21:19)
[2017-01-17] MEDS: CEFUROXIME AXETIL 500 MG TABLET PO SCH (21:20)
[2017-01-17] MEDS ORDERED: DOCUSATE SODIUM 100 MG CAPSULE (FP) PO SCH (22:00)
[2017-01-17] MEDS ORDERED: MIRTAZAPINE 15 MG TABLET (FP) PO SCH (22:00)
[2017-01-17] MEDS ORDERED: ATORVASTATIN CA 10 MG TABLET (FP) PO SCH (22:00)
[2017-01-17] MEDS ORDERED: CHLORHEXIDINE GLUCONATE 4% CLEANSER FOR DECOLONIZATION TP SCH (22:00)
[2017-01-18 05:41] VITALS: TEMP 98.4
[2017-01-18] MEDS: BACITRACIN 15 GM TUBE TOPICAL OINTMENT TP SCH (05:54)
[2017-01-18 10:20] VITALS: BP 116/70
[2017-01-18] MEDS ORDERED: PT OWN MED DRAWER 7, Y5N ONE (10:47)
--- NOTE | 2017-01-18 10:47 | PN ---
Progress Note (short form) - Note Progress Note: awake and responsive on AC Mode of vent. No acute events overnight. Intake & Output 01/15/17 01/16/17 01/17/17 01/18/17 23:59 23:59 23:59 23:59 Intake Total 950 740 950 100 Balance 950 740 950 100 Weight 96 lb 12.527 oz 101 lb 13.657 oz 96 lb 7 oz Last Vital Signs Temp Pulse Resp BP Pulse Ox 98.4 F 96 H 16 116/70 97 01/18/17 05:40 01/18/17 09:00 01/18/17 09:00 01/18/17 09:00 01/17/17 10:20 Active Medications Acetaminophen (Tylenol -) 650 mg PO Q4H PRN PRN Reason: PAIN OR FEVER Amino Acids (Prosource No Carb Liquid Pkt) 30 ml PO BID [facility] Last Admin: 01/17/17 21:20 Dose: 30 ml Apixaban (Eliquis -) 2.5 mg PO BID [facility] Last Admin: 01/17/17 21:21 Dose: 2.5 mg Artificial Tears (Artificial Tears) 1 drop OU BID PRN PRN Reason: DRY EYES Last Admin: 01/17/17 21:19 Dose: 1 drop Ascorbic Acid (Vitamin C -) 500 mg PO DAILY [facility] Last Admin: 01/17/17 11:04 Dose: 500 mg Atorvastatin Calcium (Lipitor -) 10 mg PO HS [facility] Last Admin: 01/17/17 21:21 Dose: 10 mg Bacitracin (Bacitracin -) 1 applic TP TID [facility] Last Admin: 01/18/17 05:54 Dose: 1 applic Cefuroxime Axetil (Ceftin -) 500 mg PO BID [facility] Last Admin: 01/17/17 21:20 Dose: 500 mg Chlorhexidine Gluconate (Peridex -) 15 ml MM BID [facility] Last Admin: 01/17/17 21:21 Dose: 15 ml Docusate Sodium (Colace -) 300 mg PO HS [facility] Last Admin: 01/17/17 21:20 Dose: 300 mg Ferrous Sulfate (Feosol -) 325 mg PO BID [facility] Last Admin: 01/17/17 21:21 Dose: 325 mg Lactobacillus Acidophilus (Bacid -) 1 tab PO DAILY [facility] Last Admin: 01/17/17 11:03 Dose: 1 tab Loratadine (Claritin -) 10 mg PO DAILY [facility] Last Admin: 01/17/17 11:04 Dose: 10 mg Mirtazapine (Remeron -) 30 mg PO HS [facility] Last Admin: 01/17/17 21:20 Dose: 30 mg Multivitamins/Minerals/Vitamin C (Tab-A-Vit -) 1 tab PO DAILY [facility] Last Admin: 01/17/17 11:04 Dose: 1 tab Nystatin (Nystop Powder -) 1 applic TP TID PRN PRN Reason: WOUND CARE Last Admin: 01/17/17 21:20 Dose: 1 applic Ranitidine HCl (Zantac Oral Solution -) 150 mg PO DAILY [facility] Last Admin: 01/17/17 11:04 Dose: 150 mg Constitutional: Yes: Awake on AC Mode of vent Eyes: Yes: PERRL Neck: Yes: Trachea Midline, Other (trach c/d/i) Cardiovascular: Yes: Regular Rate and Rhythm, S1, S2 Respiratory: Yes: Clear, Mechanically Ventilated Gastrointestinal: Yes: Normal Bowel Sounds, Soft Extremities: Yes: WNL Edema: No Labs: Problem List - Problems (1) Altered mental status Code(s): R41.82 - ALTERED MENTAL STATUS, UNSPECIFIED (2) Dehydration Code(s): E86.0 - DEHYDRATION (3) Sepsis Code(s): A41.9 - SEPSIS, UNSPECIFIED ORGANISM (4) UTI (urinary tract infection) Code(s): N39.0 - URINARY TRACT INFECTION, SITE NOT SPECIFIED Qualifiers: (5) COPD (chronic obstructive pulmonary disease) Code(s): J44.9 - CHRONIC OBSTRUCTIVE PULMONARY DISEASE, UNSPECIFIED (6) Chronic respiratory failure Code(s): J96.10 - CHRONIC RESPIRATORY FAILURE, UNSP W HYPOXIA OR HYPERCAPNIA Qualifiers: Respiratory failure complication: hypercapnia Qualified Code(s): J96.12 - Chronic respiratory failure with hypercapnia (7) Fever Code(s): R50.9 - FEVER, UNSPECIFIED Assessment/Plan Monitor off ABX AC Mode vent Normal transfusion thresholds SCDS PMV / Trach collar as tolerated (has not been tolerating thus far ?Anxiety) D/C planning to SNF Dr Medina
[2017-01-18] MEDS: AMINO ACIDS/PROTEIN HYDROLYS 30 ML LIQUID.PKT PO SCH (10:50)
[2017-01-18] MEDS: RANITIDINE HCL 150 MG/10 ML UNIT-DOSE CUP PO SCH (10:50)
[2017-01-18] MEDS: CHLORHEXIDINE GLUCONATE 0.12% 15ML CUP MM SCH (10:51)
[2017-01-18] MEDS: CEFUROXIME AXETIL 500 MG TABLET PO SCH (10:51)
[2017-01-18] MEDS: ASCORBIC ACID 500 MG TABLET (FP) PO SCH (10:52)
[2017-01-18] MEDS: MULTIVITAMINS (DAILY MVI) TABLET (FP) PO SCH (10:52)
[2017-01-18] MEDS: APIXABAN 2.5 MG TABLET PO SCH (10:52)
[2017-01-18] MEDS: FERROUS SO4 325 MG TABLET (FP) PO SCH (10:52)
[2017-01-18] MEDS: LORATADINE 10 MG TABLET PO SCH (10:52)
[2017-01-18] MEDS: LACTOBACILLUS ACIDOPHILUS 1 EACH TAB (FP) PO SCH (10:52)
[2017-01-18] MEDS: ARTIFICIAL TEARS (POLYVINYL ALCOHOL 1.4%) OPTH DROPS OU PRN (10:53)
[2017-01-18 10:54] VITALS: PULSE 98
--- NOTE | 2017-01-18 11:06 | PN ---
Progress Note, Physician Chief Complaint: FEVER History of Present Illness: AWAKE AND ALERT ORIGINALLY CAME IN FOR A UTI, BECAME HYPOTENSIVE, HER LACTIC ACID WAS HIGH, SEPTIC? OR SECONDARY TO ALBUTEROL? BC NEGATIVE, UC CONFIRMED UTI, COMFORTABLE IN BED ON MECH EVNT VIA TRACH, ALERT NO RECENT TEMP SPIKES, WBC IMPROVED, RESPONDING TO ZOSYN, AWAITING CULTURES. - Current Medication List Current Medications: Active Medications Acetaminophen (Tylenol -) 650 mg PO Q4H PRN PRN Reason: PAIN OR FEVER Amino Acids (Prosource No Carb Liquid Pkt) 30 ml PO BID [facility] Last Admin: 01/18/17 10:50 Dose: 30 ml Apixaban (Eliquis -) 2.5 mg PO BID [facility] Last Admin: 01/18/17 10:52 Dose: 2.5 mg Artificial Tears (Artificial Tears) 1 drop OU BID PRN PRN Reason: DRY EYES Last Admin: 01/18/17 10:53 Dose: 1 drop Ascorbic Acid (Vitamin C -) 500 mg PO DAILY [facility] Last Admin: 01/18/17 10:52 Dose: 500 mg Atorvastatin Calcium (Lipitor -) 10 mg PO [facility] Last Admin: 01/17/17 21:21 Dose: 10 mg Bacitracin (Bacitracin -) 1 applic TP TID [facility] Last Admin: 01/18/17 05:54 Dose: 1 applic Cefuroxime Axetil (Ceftin -) 500 mg PO BID [facility] Last Admin: 01/18/17 10:51 Dose: 500 mg Chlorhexidine Gluconate (Peridex -) 15 ml MM BID [facility] Last Admin: 01/18/17 10:51 Dose: 15 ml Docusate Sodium (Colace -) 300 mg PO [facility] Last Admin: 01/17/17 21:20 Dose: 300 mg Ferrous Sulfate (Feosol -) 325 mg PO BID [facility] Last Admin: 01/18/17 10:52 Dose: 325 mg Lactobacillus Acidophilus (Bacid -) 1 tab PO DAILY [facility] Last Admin: 01/18/17 10:52 Dose: 1 tab Loratadine (Claritin -) 10 mg PO DAILY [facility] Last Admin: 01/18/17 10:52 Dose: 10 mg Mirtazapine (Remeron -) 30 mg PO [facility] Last Admin: 01/17/17 21:20 Dose: 30 mg Multivitamins/Minerals/Vitamin C (Tab-A-Vit -) 1 tab PO DAILY [facility] Last Admin: 01/18/17 10:52 Dose: 1 tab Nystatin (Nystop Powder -) 1 applic TP TID PRN PRN Reason: WOUND CARE Last Admin: 01/17/17 21:20 Dose: 1 applic Ranitidine HCl (Zantac Oral Solution -) 150 mg PO DAILY [facility] Last Admin: 01/18/17 10:50 Dose: 150 mg - Objective Vital Signs: Vital Signs Temperature 98.4 F 01/18/17 05:40 Pulse Rate 98 H 01/18/17 10:00 Respiratory Rate 18 01/18/17 10:00 Blood Pressure 116/70 01/18/17 09:00 O2 Sat by Pulse Oximetry (%) 97 01/18/17 10:00 Constitutional: Yes: Well Nourished, No Distress, Calm Cardiovascular: Yes: Regular Rate and Rhythm Respiratory: Yes: Mechanically Ventilated, Other (TRACHED) Edema: No Peripheral Pulses WNL: Yes Psychiatric: Yes: Alert Labs: CBC, BMP 01/17/17 06:40 01/17/17 06:40 INR, PTT INR 1.30 (0.82-1.09) H 01/08/17 11:30 Problem List - Problems (1) Anemia Assessment/Plan: STOOL WAS GUAIAC POSITIVE, H/H STABLE AT THIS TIME. Code(s): D64.9 - ANEMIA, UNSPECIFIED (2) Chronic respiratory failure Assessment/Plan: MECHANICALLY VENTILATED WITH PASSY YANG VALVE Code(s): J96.10 - CHRONIC RESPIRATORY FAILURE, UNSP W HYPOXIA OR HYPERCAPNIA Qualifiers: Qualified Code(s): J96.12 - Chronic respiratory failure with hypercapnia Assessment/Plan ON MECHANICAL VENT, COMFORTABLE. IV ABX CHANGED TO PO CEFTIN 500 G PO BID X 7 DAYS Microbiology 01/15/17 14:30 Gram Stain - Final Sputum - Endotrachea Suction/Ventilator Sputum Culture - Preliminary Non Lactose Fermenting Gnb Non Lactose Fermenting Gnb#2 Non Lactose Fermenting Gnb#3 01/15/17 14:30 Urine Culture - Final Urine - Urine - Catheterized NO GROWTH OBTAINED 01/15/17 11:20 Blood Culture - Preliminary Blood - Peripheral Venous NO GROWTH OBTAINED AFTER 48 HOURS, INCUBATION TO CONTINUE FOR 3 DAYS. 01/15/17 11:15 Blood Culture - Preliminary Blood - Peripheral Venous NO GROWTH OBTAINED AFTER 48 HOURS, INCUBATION TO CONTINUE FOR 3 DAYS. NO FEBRILE EVENTS OKAY TO BE TRANSFERRED TO [facility]
--- NOTE | 2017-01-18 12:40 | PN ---
Progress Note, AVAYA ENGINEER - Note Progress Note: Tolerating soft diet/thin liquid. Case reviewed with Pulmonary. F/u by palliative care regarding pt's wishes. Pending d/c.Pt becomes anxious on PMV, possibly secondary to large trach size, obstructing expiratory air flow. Consider trach downsize if PMV will be used.
== END 2017-01-18 14:06 | DRG 870 ==
LOC: JER 00:27 → JERBED 05:01 → UNDOADMIN 05:06 → JERBED 05:06 → JICU 21:25 → J5S 01-17 05:55
PROVIDERS: ADMIT Family Medicine; ATTEND Family Medicine
PROC: 5A1955Z Respiratory Ventilation, Greater than 96 Consecutive Hours (ICD-10-PCS; principal; 2017-01-08)
DX: A41.9 Sepsis, unspecified organism (principal); R65.21 Severe sepsis with septic shock; K92.1 Melena; J96.12 Chronic respiratory failure with hypercapnia; Z99.11 Dependence on respirator [ventilator] status; N39.0 Urinary tract infection, site not specified; K92.2 Gastrointestinal hemorrhage, unspecified; R64 Cachexia; Z68.1 Body mass index [BMI] 19.9 or less, adult; E87.2 Acidosis; D64.9 Anemia, unspecified; Z86.74 Personal history of sudden cardiac arrest; I10 Essential (primary) hypertension; E78.5 Hyperlipidemia, unspecified; I48.0 Paroxysmal atrial fibrillation; Z79.01 Long term (current) use of anticoagulants; J44.9 Chronic obstructive pulmonary disease, unspecified; K21.9 Gastro-esophageal reflux disease without esophagitis; Z93.0 Tracheostomy status; E87.6 Hypokalemia; Z66 Do not resuscitate; I50.9 Heart failure, unspecified; E83.39 Other disorders of phosphorus metabolism; E16.2 Hypoglycemia, unspecified; R32 Unspecified urinary incontinence
CPT/HCPCS: 36415; 71010-TC; 80048; 80053; 81003; 81015; 82272; 82728; 83540; 83550; 83605; 83735; 83880; 84100; 84484; 85025; 85027; 85610; 86850; 86900; 86901; 87040; 87070; 87086; 87186; 87205; 87324; 87449; 93005; 93010; 94002; 94640; 99285-25

== ENCOUNTER 2017-02-26 17:05 | Inpatient (IN) | payer OTHER ==
[2017-02-26 17:28] VITALS: BMI 25.7
[2017-02-26 18:07] LABS: MCH 25.4 pg (25.7-33.7); MCHC 31.7 g/dl (32.0-36.0); MEAN CELL VOLUME 80.4 fl (80-96); MEAN PLT VOLUME 7.9 fl (7.5-11.1); PLATELET COUNT 415 K/MM3 (134-434); RDW 17.9 % (11.6-15.6); WHITE BLOOD COUNT 27.1 K/mm3 (4.0-10.0)
[2017-02-26 18:35] LABS: ANION GAP 3 (8-16); BILIRUBIN,TOTAL 0.7 mg/dL (0.2-1.0); CALCIUM 8.6 mg/dL (8.5-10.1); CO2 36 mmol/L (21-32); CPK 10 IU/L (26-192); CREATININE 0.5 mg/dL (0.55-1.02); GLUCOSE,RANDOM 86 mg/dL (74-106); INR 1.32 (0.82-1.09); PROTHROMBIN TIME (PATIENT) 14.6 SEC (9.98-11.88); SGOT/AST 36 U/L (15-37); SGPT/ALT 59 U/L (12-78); TOT PROT 6.7 g/dl (6.4-8.2)
[2017-02-26 18:37] LABS: ALK PHOS 136 U/L (45-117); TROPONIN I 0.02 ng/ml (0.00-0.05)
[2017-02-26 18:38] LABS: ACTIVATED PTT 27.8 SECONDS (26.9-34.4)
[2017-02-26] MEDS ORDERED: PIPERACILLIN/TAZOB 3.375 GM 3.375 GM in DEXTROSE 5%-WATER - 50 ML IVPB ONE (18:52)
[2017-02-26] MEDS ORDERED: VANCOMYCIN 1,000 MG in DEXTROSE 5%-WATER - 250 ML IVPB STA (18:53)
[2017-02-26] MEDS ORDERED: VANCOMYCIN 1 GRAM (PRE-DOCKED) 250 ML IVPB ONE (19:14)
[2017-02-26] MEDS ORDERED: PIPERACILLIN/TAZOB 3.375 GM 50 ML IVPB ONE (19:14)
[2017-02-26 19:27] LABS: VENOUS PH 7.27 (7.32-7.42)
[2017-02-26 19:28] LABS: VENOUS BLOOD GAS HCO3 33.4 meq/L (19-25)
[2017-02-26 20:16] LABS: PLATELET ESTIMATE ADEQUATE (NORMAL)
--- NOTE | 2017-02-26 20:17 | PDOC ---
History of Present Illness - General History Source: Patient Exam Limitations: Clinical Condition (s/p trach) - History of Present Illness Initial Comments: 02/26/17 20:33 The patient is an 82 year old female with past medical history of anemia, atrial fibrillation, CHF, cardiac arrest (1998), COPD, s/p trach, vent dependent , UTIs and GI bleeds who arrives from [facility] to rule out pneumonia. While at the senior living the patient had a chest x-ray performed and wasr reported to have a left lung consolidation with volume loss suggesting of a atelectatic collapse. There may be an underlying pneumonia collapse. The patient was admitted to the hospital in December for a UTI. No further history can be obtained due to patient being trached. PCP: Dr. August Panchal Allergies: doxycycline \ <Danielle Tolbert - Last Filed: 02/26/17 21:06> <Blanca Hammond - Last Filed: 02/27/17 19:42> - General Chief Complaint: Revisit,Radiology Variance Stated Complaint: ABNORMAL XRAY Time Seen by Provider: 02/26/17 17:13 Past History <Danielle Tolbert - Last Filed: 02/26/17 21:06> - Past Medical History Anemia: Yes Asthma: No Cancer: No Cardiac Disorders: Yes (CARDIAC ARREST 1998, af) CVA: No COPD: Yes CHF: No Dementia: Yes (SHORT TERM MEMORY LOSS) Diabetes: No GI Disorders: No Disorders: No HTN: Yes Hypercholesterolemia: Yes Liver Disease: No Seizures: No Thyroid Disease: No - Surgical History Abdominal Surgery: No Appendectomy: No Cardiac Surgery: Yes (DEFIBRILLATOR) Cholecystectomy: No Lung Surgery: No Neurologic Surgery: No Orthopedic Surgery: No - Immunization History Immunization Up to Date: Yes - Psycho/Social/Smoking Cessation Hx Anxiety: No Suicidal Ideation: No Smoking History: Unknown if ever smoked Have you smoked in the past 12 months: No Number of Cigarettes Smoked Daily: 0 Cigars Per Day: 0 Hx Alcohol Use: No Drug/Substance Use Hx: No Substance Use Type: None <Blanca Hammond - Last Filed: 02/27/17 19:42> - Past Medical History Allergies/Adverse Reactions: Allergies Allergy/AdvReac Type Severity Reaction Status Date / Time doxycycline Allergy Intermediate Verified 02/26/17 22:57 CLAMS Allergy Intermediate Hives Uncoded 02/26/17 22:57 Home Medications: Ambulatory Orders Acetaminophen [Tylenol] 650 mg PO Q4H PRN 10/19/16 Ascorbic Acid [Vitamin C -] 500 mg PO DAILY 10/19/16 Docusate Sodium 300 mg PO HS 10/19/16 Ferrous Sulfate 325 mg PO BID 10/19/16 Hypromellose 0.5% Opth Soln [Artificial Tears] 1 drop OU BID 10/19/16 Omeprazole 20 mg PO DAILY 10/19/16 Simvastatin [Zocor -] 20 mg PO HS 10/19/16 Albuterol 2.5/Ipratropium 0.5 [Duoneb -] 1 amp NEB QIDR amp 10/24/16 Aa/Hydrolyzed Collagen, Whey [Lps 15-30 Liquid] 30 ml PO BID 01/08/17 Bacitracin - [Bacitracin Topical Ointment -] 1 applic TP TID 01/08/17 Clonazepam [Klonopin -] 0.5 mg PO HS 02/26/17 L. Acidophilus/Pectin, [place] [Acidophilus Capsule] 1 tab PO DAILY 02/26/17 Mirtazapine 15 mg PO HS 02/26/17 Prednisone [Deltasone -] 20 mg PO DAILY 02/26/17 Rivaroxaban [Xarelto -] 20 mg PO DAILY 02/26/17 Multivitamins [Tab-A-Vit -] 1 tab PO DAILY 02/27/17 Silver Sulfadiazine 1% Top Cr [Silvadene -] 1 applic TP BID 02/27/17 Review of Systems - Review of Systems Able to Perform ROS?: No (trach) <DidiDanielle - Last Filed: 02/26/17 21:06> *Physical Exam - Vital Signs Last Vital Signs Temp Pulse Resp BP Pulse Ox 99.0 F 90 16 104/62 96 02/26/17 19:36 02/26/17 19:36 02/26/17 19:36 02/26/17 19:36 02/26/17 19:36 - Physical Exam Comments: 02/26/17 20:34 GENERAL: Awake and alert. Trach in tact with copious secretions. Reacts to commands. No acute distress. HEENT: Normocephalic, atraumatic. PERRLA, EOMI. No conjunctival pallor. Sclera are non- icteric. Moist mucous membranes. Oropharynx is clear. NECK: Supple. Full ROM. No JVD. Carotid pulses 2+ and symmetric, without bruits. No thyromegaly. No lymphadenopathy. CARDIOVASCULAR: Regular rate and rhythm. No murmurs, rubs, or gallops. Distal pulses are 2+ and symmetric. PULMONARY: Scattered rhonchi bilaterally. No wheezing or rales. ABDOMINAL: Soft. Non-tender. Non-distended. No rebound or guarding. No organomegaly. Normoactive bowel sounds. MUSCULOSKELETAL Normal range of motion at all joints. No bony deformities or tenderness. No CVA tenderness. EXTREMITIES: No cyanosis. No clubbing. No edema. No calf tenderness. SKIN: Warm and dry. Normal capillary refill. No rashes. No jaundice. NEUROLOGICAL: Alert, awake, appropriate. Cranial nerves 2-12 intact. No deficits to light touch and temperature in face, upper extremities and lower extremities. Normoreflexic in the upper and lower extremities. PSYCHIATRIC: Cooperative. Good eye contact. Appropriate mood and affect. <Danielle Tolbert - Last Filed: 02/26/17 21:06> - Vital Signs Last Vital Signs Temp Pulse Resp BP Pulse Ox 99.0 F 90 16 104/62 96 02/26/17 19:36 02/26/17 19:36 02/26/17 19:36 02/26/17 19:36 02/26/17 19:36 <Blanca Hammond - Last Filed: 02/27/17 19:42> ED Treatment Course - LABORATORY CBC & Chemistry Diagram: 02/26/17 17:45 02/26/17 17:45 - ADDITIONAL ORDERS Additional order review: Laboratory Results 02/26/17 02/26/17 02/26/17 19:20 17:50 17:45 INR PTT (Actin FS) VBG pH 7.27 L D POC VBG pCO2 75.7 H* D POC VBG pO2 61.7 H Mixed VBG HCO3 33.4 H Sodium Potassium Chloride Carbon Dioxide Anion Gap BUN Creatinine Creat Clearance w eGFR Random Glucose Lactic Acid 1.2 Calcium Total Bilirubin AST ALT Alkaline Phosphatase Creatine Kinase Troponin I Total Protein Albumin Blood Type A POSITIVE Antibody Screen Negative 02/26/17 02/26/17 17:45 17:45 INR 1.32 H PTT (Actin FS) 27.8 VBG pH POC VBG pCO2 POC VBG pO2 Mixed VBG HCO3 Sodium 143 Potassium 4.1 Chloride 104 Carbon Dioxide 36 H Anion Gap 3 L BUN 31 H D Creatinine 0.5 L D Creat Clearance w eGFR > 60 Random Glucose 86 Lactic Acid Calcium 8.6 Total Bilirubin 0.7 D AST 36 D ALT 59 D Alkaline Phosphatase 136 H D Creatine Kinase 10 L Troponin I 0.02 Total Protein 6.7 Albumin 2.0 L Blood Type Antibody Screen 02/26/17 17:45 RBC 3.64 MCV 80.4 MCHC 31.7 L RDW 17.9 H MPV 7.9 Neutrophils % 89.0 H Lymphocytes % 4.0 L D Monocytes % 4.0 - RADIOLOGY Radiograph Interpretation: 02/26/17 20:37 Chest x-ray as reviewed by Dr. Vale reports extensive atelectasis and volume loss in left lung that has largely developed since 01/17/17. - Medications Given in the ED: ED Medications Discontinued Medications Generic Name Dose Route Start Last Admin Trade Name Sharanq PRN Reason Stop Dose Admin Piperacillin Sod/Tazobactam 50 mls @ 100 mls/hr 02/26/17 18:52 02/26/17 19:35 Sod 3.375 gm/ Dextrose IVPB 02/26/17 19:21 100 mls/hr ONCE ONE Administration Protocol Vancomycin HCl 1,000 mg/ 250 mls @ 250 mls/hr 02/26/17 18:53 02/26/17 20:12 Dextrose IVPB 02/26/17 19:52 250 mls/hr ONCE STA Administration Protocol <Danielle Tolbert - Last Filed: 02/26/17 21:06> - LABORATORY CBC & Chemistry Diagram: 02/27/17 06:30 02/27/17 06:30 - ADDITIONAL ORDERS Additional order review: Laboratory Results 02/26/17 02/26/17 02/26/17 19:20 17:50 17:45 INR PTT (Actin FS) VBG pH 7.27 L D POC VBG pCO2 75.7 H* D POC VBG pO2 61.7 H Mixed VBG HCO3 33.4 H Sodium Potassium Chloride Carbon Dioxide Anion Gap BUN Creatinine Creat Clearance w eGFR Random Glucose Lactic Acid 1.2 Calcium Total Bilirubin AST ALT Alkaline Phosphatase Creatine Kinase Troponin I Total Protein Albumin Blood Type A POSITIVE Antibody Screen Negative 02/26/17 02/26/17 17:45 17:45 INR 1.32 H PTT (Actin FS) 27.8 VBG pH POC VBG pCO2 POC VBG pO2 Mixed VBG HCO3 Sodium 143 Potassium 4.1 Chloride 104 Carbon Dioxide 36 H Anion Gap 3 L BUN 31 H D Creatinine 0.5 L D Creat Clearance w eGFR > 60 Random Glucose 86 Lactic Acid Calcium 8.6 Total Bilirubin 0.7 D AST 36 D ALT 59 D Alkaline Phosphatase 136 H D Creatine Kinase 10 L Troponin I 0.02 Total Protein 6.7 Albumin 2.0 L Blood Type Antibody Screen 02/26/17 17:45 RBC 3.64 MCV 80.4 MCHC 31.7 L RDW 17.9 H MPV 7.9 Neutrophils % Y Lymphocytes % Y - RADIOLOGY Radiology Studies Ordered: Category Date Time Status CHEST X-RAY PORTABLE* [RAD] Stat Radiology 02/26/17 17:14 Completed - Medications Given in the ED: ED Medications Discontinued Medications Generic Name Dose Route Start Last Admin Trade Name Freq PRN Reason Stop Dose Admin Piperacillin Sod/Tazobactam 50 mls @ 100 mls/hr 02/26/17 18:52 02/26/17 19:35 Sod 3.375 gm/ Dextrose IVPB 02/26/17 19:21 100 mls/hr ONCE ONE Administration Protocol Vancomycin HCl 1,000 mg/ 250 mls @ 250 mls/hr 02/26/17 18:53 02/26/17 20:12 Dextrose IVPB 02/26/17 19:52 250 mls/hr ONCE STA Administration Protocol <Blanca Hammond - Last Filed: 02/27/17 19:42> Medical Decision Making - Medical Decision Making 02/26/17 21:06 Phone call [address] to Dr. Panchal and call was connected immediately. Case was discussed. <Danielle Tolbert - Last Filed: 02/26/17 21:06> - Medical Decision Making 02/27/17 19:30 82-year-old female admitted for UTI and left chest consolidation. History of chronic ventilatory problems. Patient initially copious secretions and was suctioned. After that she had a pulse ox above 95% evening Antibiotics were given and she was admitted to [facility] 02/27/17 19:42 <Blanca Hammond - Last Filed: 02/27/17 19:42> *DC/Admit/Observation/Transfer - Attestations Scribe Attestion: 02/26/17 20:37 Documentation prepared by Danielle Tolbert, acting as medical records analyst for Blanca Hammond MD. <Danielle Tolbert - Last Filed: 02/26/17 21:06> - Discharge Dispostion Admit: Yes <Blanca Hammond - Last Filed: 02/27/17 19:42> Diagnosis at time of Disposition: Dehydration UTI (urinary tract infection) Qualifiers: Urinary tract infection type: site unspecified Hematuria presence: without hematuria Qualified Code(s): N39.0 - Urinary tract infection, site not specified Chronic respiratory failure Qualifiers: Respiratory failure complication: hypercapnia Qualified Code(s): J96.12 - Chronic respiratory failure with hypercapnia Pneumonia Qualifiers: Pneumonia type: due to unspecified organism Laterality: left Lung location: lower lobe of lung Qualified Code(s): J18.1 - Lobar pneumonia, unspecified organism COPD (chronic obstructive pulmonary disease) Qualifiers: COPD type: unspecified COPD Qualified Code(s): J44.9 - Chronic obstructive pulmonary disease, unspecified - Referrals
[2017-02-26 20:40] LABS: URINE APPEARANCE CLOUDY; URINE BILIRUBIN NEGATIVE (NEGATIVE); URINE BLOOD 1+ (NEGATIVE); URINE COLOR AMBER; URINE GLUCOSE (UA) NEGATIVE (NEGATIVE); URINE KETONE NEGATIVE (NEGATIVE); URINE NITRITE POSITIVE (NEGATIVE); URINE UROBILINOGEN NEGATIVE mg/dL (0.2-1.0)
[2017-02-26 20:50] LABS: URINE LEUK ESTERASE 3+ (NEGATIVE); URINE PROTEIN 2+ (NEGATIVE)
[2017-02-26 21:05] LABS: URINE BACTERIA MANY /hpf (NONE SEEN); URINE HYALINE CAST 4 /lpf; URINE MUCUS MODERATE; URINE RBC 37 /hpf (0-3); URINE WBC 263 /hpf (3-5)
[2017-02-26] MEDS ORDERED: ARTIFICIAL TEARS (POLYVINYL ALCOHOL 1.4%) OPTH DROPS OU PRN (22:47)
[2017-02-26] MEDS ORDERED: ALBUTEROL SO4 2.5/IPRATROPIUM 0.5 INH SOL 3 ML VIAL.NEB. NEB PRN (22:47)
[2017-02-27 07:46] LABS: MCH 24.8 pg (25.7-33.7); MCHC 30.8 g/dl (32.0-36.0); MEAN CELL VOLUME 80.6 fl (80-96); MEAN PLT VOLUME 7.8 fl (7.5-11.1); PLATELET COUNT 334 K/MM3 (134-434); RDW 17.6 % (11.6-15.6); WHITE BLOOD COUNT 16.9 K/mm3 (4.0-10.0)
[2017-02-27 08:07] LABS: ALBUMIN 1.7 g/dl (3.4-5.0); ANION GAP 8 (8-16); BILIRUBIN,TOTAL 0.5 mg/dL (0.2-1.0); CALCIUM 7.8 mg/dL (8.5-10.1); CO2 31 mmol/L (21-32); CREATININE 0.4 mg/dL (0.55-1.02); GLUCOSE,RANDOM 81 mg/dL (74-106); SGOT/AST 22 U/L (15-37); SGPT/ALT 41 U/L (12-78); TOT PROT 5.5 g/dl (6.4-8.2)
[2017-02-27 08:09] LABS: ALK PHOS 109 U/L (45-117)
[2017-02-27] MEDS: APIXABAN 2.5 MG TABLET PO SCH ×2 (10:35→22:20)
[2017-02-27] MEDS: FERROUS SO4 325 MG TABLET (FP) PO SCH ×2 (10:35→21:50)
[2017-02-27] MEDS: PANTOPRAZOLE 40 MG TABLET (FP) PO SCH (10:35)
[2017-02-27] MEDS: LORATADINE 10 MG TABLET PO SCH (10:35)
[2017-02-27] MEDS: ASCORBIC ACID 250 MG TABLET (FP) PO SCH (10:36)
--- NOTE | 2017-02-27 14:06 | HP ---
Admitting History and Physical - Primary Care Physician PCP: Jacky Cook - Admission Chief Complaint: abnormal CXR, SOB History of Present Illness: The patient is an 82 year old female with past medical history of anemia, atrial fibrillation, CHF, cardiac arrest (1998), COPD, s/p trach, vent dependent , UTIs and GI bleeds who arrives from [facility] to rule out pneumonia. While at the detention the patient had a chest x-ray performed and was reported to have a left lung consolidation with volume loss suggesting of a atelectatic collapse. There may be an underlying pneumonia collapse. The patient was admitted to the hospital in December for a UTI. No further history can be obtained due to patient being trached. NAD, in the stretch, patient's son at the bedside, who I spoke to. History Source: Transfer Record Limitations to Obtaining History: Clinical Condition (trached) - Past Medical History [employer]IVER: Yes: CVA, Dementia, Parkinson's Cardiovascular: Yes: AFIB (Paroxysmal), CHF, HTN, Hyperlipdemia, Other (h/o cardiac arrest s/p AICD - Single lead) Pulmonary: Yes: COPD, Other (respiratory failure) Gastrointestinal: Yes: GERD Heme/Onc: Yes: Anemia - Past Surgical History Past Surgical History: Yes: AICD (Medtronic, implanted following cardiac arrest) , Cataract Removal (2011) - Smoking History Smoking history: Unknown if ever smoked Have you smoked in the past 12 months: No Aproximately how many cigarettes per day: 0 - Alcohol/Substance Use Hx Alcohol Use: No - Social History History of Recent Travel: No Home Medications - Allergies Allergies/Adverse Reactions: Allergies Allergy/AdvReac Type Severity Reaction Status Date / Time doxycycline Allergy Intermediate Verified 02/26/17 22:57 CLAMS Allergy Intermediate Hives Uncoded 02/26/17 22:57 - Home Medications Home Medications: Ambulatory Orders Acetaminophen [Tylenol] 650 mg PO Q4H PRN 10/19/16 Ascorbic Acid [Vitamin C -] 500 mg PO DAILY 10/19/16 Docusate Sodium 300 mg PO HS 10/19/16 Ferrous Sulfate 325 mg PO BID 10/19/16 Hypromellose 0.5% Opth Soln [Artificial Tears] 1 drop OU BID 10/19/16 Omeprazole 20 mg PO DAILY 10/19/16 Simvastatin [Zocor -] 20 mg PO HS 10/19/16 Albuterol 2.5/Ipratropium 0.5 [Duoneb -] 1 amp NEB QIDR amp 10/24/16 Aa/Hydrolyzed Collagen, Whey [Lps 15-30 Liquid] 30 ml PO BID 01/08/17 Bacitracin - [Bacitracin Topical Ointment -] 1 applic TP TID 01/08/17 Clonazepam [Klonopin -] 0.5 mg PO HS 02/26/17 L. Acidophilus/Pectin, [place] [Acidophilus Capsule] 1 tab PO DAILY 02/26/17 Mirtazapine 15 mg PO HS 02/26/17 Prednisone [Deltasone -] 20 mg PO DAILY 02/26/17 Rivaroxaban [Xarelto -] 20 mg PO DAILY 02/26/17 Multivitamins [Tab-A-Vit -] 1 tab PO DAILY 02/27/17 Silver Sulfadiazine 1% Top Cr [Silvadene -] 1 applic TP BID 02/27/17 Physical Examination Vital Signs: Vital Signs Temperature 99.3 F 02/27/17 12:43 Pulse Rate 80 02/27/17 12:43 Respiratory Rate 20 02/27/17 12:27 Blood Pressure 97/53 02/27/17 12:43 O2 Sat by Pulse Oximetry (%) 99 02/27/17 12:43 Constitutional: Yes: Well Nourished, No Distress, Calm Cardiovascular: Yes: Regular Rate and Rhythm Respiratory: Yes: Regular Gastrointestinal: Yes: Normal Bowel Sounds Musculoskeletal: Yes: WNL Extremities: Yes: WNL Edema: No Peripheral Pulses WNL: Yes Neurological: Yes: Alert, Oriented Psychiatric: Yes: Alert, Oriented Labs: CBC, BMP 02/27/17 06:30 02/27/17 06:30 Imaging - Results Chest X-ray: Report Reviewed Problem List - Problems (1) Anemia Assessment/Plan: -1 unit PRBC -monitor labs -stool OB -iron studies -hematology consult Code(s): D64.9 - ANEMIA, UNSPECIFIED (2) Chronic respiratory failure Assessment/Plan: on mechanical ventilation Code(s): J96.10 - CHRONIC RESPIRATORY FAILURE, UNSP W HYPOXIA OR HYPERCAPNIA Qualifiers: Respiratory failure complication: hypercapnia Qualified Code(s): J96.12 - Chronic respiratory failure with hypercapnia (3) Pneumonia Assessment/Plan: ID and pulmonary consult IV abx Code(s): J18.9 - PNEUMONIA, UNSPECIFIED ORGANISM Qualifiers: Pneumonia type: due to unspecified organism Laterality: left Lung location: lower lobe of lung Qualified Code(s): J18.1 - Lobar pneumonia, unspecified organism (4) UTI (urinary tract infection) Assessment/Plan: Abnormal Lab Results 02/26/17 02/26/17 02/26/17 17:45 17:45 17:45 WBC 27.1 H D RBC Hgb 9.3 L D Hct 29.2 L MCH 25.4 L MCHC 31.7 L RDW 17.9 H Neutrophils % 89.0 H Lymphocytes % 4.0 L D INR 1.32 H VBG pH POC VBG pCO2 POC VBG pO2 Mixed VBG HCO3 Carbon Dioxide 36 H Anion Gap 3 L BUN 31 H D Creatinine 0.5 L D Calcium Ferritin Alkaline Phosphatase 136 H D Creatine Kinase 10 L Total Protein Albumin 2.0 L Urine Protein Urine Blood Ur Leukocyte Esterase Crossmatch 02/26/17 02/26/17 02/26/17 17:45 19:20 20:02 WBC RBC Hgb Hct MCH MCHC RDW Neutrophils % Lymphocytes % INR VBG pH 7.27 L D POC VBG pCO2 75.7 H* D POC VBG pO2 61.7 H Mixed VBG HCO3 33.4 H Carbon Dioxide Anion Gap BUN Creatinine Calcium Ferritin Alkaline Phosphatase Creatine Kinase Total Protein Albumin Urine Protein 2+ H Urine Blood 1+ H Ur Leukocyte Esterase 3+ H D Crossmatch See Detail 02/27/17 02/27/17 02/27/17 06:30 06:30 11:55 WBC 16.9 H D RBC 3.17 L Hgb 7.9 L D Hct 25.6 L MCH 24.8 L MCHC 30.8 L RDW 17.6 H Neutrophils % Lymphocytes % INR VBG pH POC VBG pCO2 POC VBG pO2 Mixed VBG HCO3 Carbon Dioxide Anion Gap BUN 33 H Creatinine 0.4 L Calcium 7.8 L Ferritin 763.985 H Alkaline Phosphatase Creatine Kinase Total Protein 5.5 L Albumin 1.7 L Urine Protein Urine Blood Ur Leukocyte Esterase Crossmatch Code(s): N39.0 - URINARY TRACT INFECTION, SITE NOT SPECIFIED Qualifiers: Urinary tract infection type: site unspecified Hematuria presence: without hematuria Qualified Code(s): N39.0 - Urinary tract infection, site not specified; R31.9 - Hematuria, unspecified Assessment/Plan -Pulmonary, ID and Hematology consult -PRBC x 1 for anemia, -stool OB -labs in AM -IV abx -swallow eval to r/o aspiration -UC-pending -[facility]
--- NOTE | 2017-02-27 14:24 | PN ---
Progress Note (short form) - Note Progress Note: PULMONARY CONSULTATION DICTATED 02/27/17 IMP ACUTE ON CHRONIC HYPOXEMIC/HYPERCAPNEIC RESPIRATORY FAILURE LEFT LUNG ATELECTASIS END STAGE COPD AFIB CHF H/O GI BLEED PLAN VENT SUPPORT ON AC MODE WILL ADJUST SETTINGS INHALED BRONCHODILATORS MUCOMYST ABG F/U CHEST X-RAY FLEX BRONCHOSCOPY IF NO IMPROVEMENT RATE CONTROL DR CBARERA Problem List - Problems (1) Anemia Code(s): D64.9 - ANEMIA, UNSPECIFIED (2) COPD (chronic obstructive pulmonary disease) Code(s): J44.9 - CHRONIC OBSTRUCTIVE PULMONARY DISEASE, UNSPECIFIED Qualifiers : COPD type: unspecified COPD Qualified Code(s): J44.9 - Chronic obstructive pulmonary disease, unspecified (3) Chronic respiratory failure Code(s): J96.10 - CHRONIC RESPIRATORY FAILURE, UNSP W HYPOXIA OR HYPERCAPNIA Qualifiers: Respiratory failure complication: hypercapnia Qualified Code(s): J96.12 - Chronic respiratory failure with hypercapnia (4) AICD (automatic cardioverter/defibrillator) present Code(s): Z95.810 - PRESENCE OF AUTOMATIC (IMPLANTABLE) CARDIAC DEFIBRILLATOR (5) Acute and chronic respiratory failure with hypercapnia Code(s): J96.22 - ACUTE AND CHRONIC RESPIRATORY FAILURE WITH HYPERCAPNIA (6) HTN (hypertension) Code(s): I10 - ESSENTIAL (PRIMARY) HYPERTENSION (7) Hyperlipemia Code(s): E78.5 - HYPERLIPIDEMIA, UNSPECIFIED (8) PAF (paroxysmal atrial fibrillation) Code(s): I48.0 - PAROXYSMAL ATRIAL FIBRILLATION (9) Respirator dependence Code(s): Z99.11 - DEPENDENCE ON RESPIRATOR [VENTILATOR] STATUS (10) Atelectasis of left lung Code(s): J98.11 - ATELECTASIS (11) Atelectasis Code(s): J98.11 - ATELECTASIS
[2017-02-27] MEDS: BACITRACIN 15 GM TUBE TOPICAL OINTMENT TP SCH (14:53)
[2017-02-27] MEDS ORDERED: VANCOMYCIN 1 GRAM (PRE-DOCKED) 1,000 MG/250 ML BAG IVPB ONE (16:07)
--- NOTE | 2017-02-27 17:18 | PN ---
Progress Note (short form) - Note Progress Note: ID Consult dictated L pneumonia/ atelectasis Sepsis secondary to lung source Chronic respiratory failure + BC GPCCL ? significance UTI Leukocytosis Hx ESBL Pending c/s empiric vancomycin/ zosyn Contact precautions
[2017-02-27] MEDS: PIPERACILLIN/TAZOB 3.375 GM 50 ML IVPB SCH (19:14)
[2017-02-27] MEDS: NYSTATIN POWDER 100,000 UNITS/GM - 15 GM TOPICAL POWDER TP SCH (19:32)
[2017-02-27] MEDS: LACTOBACILLUS ACIDOPHILUS 1 EACH TAB (FP) PO SCH (19:32)
[2017-02-27] MEDS ORDERED: PT OWN MED DRAWER 7, Y5N ONE ×2 (20:01→23:38)
[2017-02-27] MEDS: MIRTAZAPINE 15 MG TABLET (FP) PO SCH (21:50)
[2017-02-27] MEDS: ATORVASTATIN CA 10 MG TABLET (FP) PO SCH (21:50)
[2017-02-27] MEDS: VANCOMYCIN 1 GRAM (PRE-DOCKED) 250 ML IVPB SCH (21:50)
[2017-02-28] MEDS: PIPERACILLIN/TAZOB 3.375 GM 50 ML IVPB SCH ×3 (01:39→17:29)
[2017-02-28] MEDS: VANCOMYCIN 1 GRAM (PRE-DOCKED) 250 ML IVPB SCH ×2 (06:26→06:27)
[2017-02-28] MEDS ORDERED: PT OWN MED DRAWER 7, Y5N ONE ×3 (06:28→20:15)
--- NOTE | 2017-02-28 06:58 | CONS ---
DATE OF CONSULTATION: DATE OF DICTATION: 02/27/2017 HISTORY OF PRESENT ILLNESS: The patient is an 82-year-old female who was evaluated for pneumonia and sepsis. History was obtained from the chart as she cannot give a history. She is a skilled nursing resident. She was noted at the skilled nursing to have an increasing cough. Chest x-ray reportedly showed a left-sided infiltrate. She was transferred to [facility] where a chest x-ray shows complete opacification of the left hemithorax. In addition, white blood cell count was elevated at 27,000. Cultures were done and she was empirically treated with vancomycin and Zosyn. The patient is awake; however, lethargic. She is able to answer simple questions "yes" or "no." She denies any chest pain or shortness of breath. No reports of labored breathing, purulent sputum production, vomiting, diarrhea, grossly purulent urine, or infected decubitus ulcers. PAST MEDICAL HISTORY: Positive for chronic respiratory failure, ventilator dependent, atrial fibrillation, congestive heart failure, GI bleed, recurrent urinary tract infections. PAST SURGICAL HISTORY: Status post tracheostomy and ICD. ALLERGIES: DOXYCYCLINE. The nature of this allergy not known. MEDICATIONS: At the present time include Tylenol, vancomycin, Zosyn, Eliquis, Remeron, Bacid, Duo-Neb, Lipitor, Protonix, Claritin. SOCIAL HISTORY: shelter resident. Dependent in activities of daily living. No active tobacco or alcohol use. SYSTEMS REVIEW:Neurologic: No loss of consciousness, seizure activity, focal weakness. Cardiac: Negative chest pain or palpitations. Respiratory: As per HPI. Gastrointestinal: Negative vomiting or diarrhea. Genitourinary: Negative for urinary tract infection. LABORATORY DATA: White count on admission 27.1, presently 16.9, hematocrit 25.6, platelet count 334. BUN 33, creatinine 0.4. Liver enzymes normal. Urinalysis: White cells 263. PHYSICAL EXAMINATION:General: She is awake; however, chronically ill appearing, in no acute distress. Breathing is nonlabored. Vital Signs: Temperature 99.3, T-max 99.8, blood pressure 97/53, pulse 86, regular, respirations 18 per minute. HEENT: Sclerae anicteric. Neck: Tracheostomy in place. Cardiac: Heart sounds S1, S2 with a 2/6 pansystolic murmur. Lungs: Diminished breath sounds bilaterally. No rhonchi, rales, or wheezing. Abdomen: Soft. No tenderness elicited. No mass, rebound, or rigidity. Extremities: Negative for edema. No sacral or heel decubiti present. IMPRESSION: 1. Left-sided pneumonia/atelectasis. 2. Sepsis secondary to lung source. 3. Chronic respiratory failure. 4. Positive blood culture, gram-positive cocci in clusters. 5. Recurrent urinary tract infections. 6. Leukocytosis. 7. History of extended-spectrum beta-lactamase. RECOMMENDATIONS: Await culture results. Significance of positive blood culture not clear. Will repeat blood cultures x2. Empiric antibiotic coverage with vancomycin for possible Staph bacteremia and Zosyn for suspected health care-acquired pulmonary pathogens. Suctioning and pulmonary toilet. Contact precautions. Will follow. Thank you for the kind referral. JAXON MTZ M.D. [id number]
[2017-02-28 08:07] LABS: BASOPHIL 0.3 % (0-2.0); EOSINOPHIL 0.7 % (0-4.5); MCH 25.5 pg (25.7-33.7); MCHC 31.9 g/dl (32.0-36.0); MEAN CELL VOLUME 80.1 fl (80-96); MEAN PLT VOLUME 7.4 fl (7.5-11.1); NEUTROPHILS 89.4 % (42.8-82.8); PLATELET COUNT 332 K/MM3 (134-434); RDW 16.9 % (11.6-15.6); WHITE BLOOD COUNT 16.1 K/mm3 (4.0-10.0)
[2017-02-28 08:07] LABS: SERUM IRON 19 ug/dL (27-139); TOTAL IRON BINDING CAPACITY 153 ug/dL (250-450); UIBC 134 ug/dL (118-369)
[2017-02-28 08:35] LABS: ALBUMIN 1.7 g/dl (3.4-5.0); ANION GAP 9 (8-16); CALCIUM 7.8 mg/dL (8.5-10.1); CO2 29 mmol/L (21-32); GLUCOSE,RANDOM 77 mg/dL (74-106)
[2017-02-28 08:38] LABS: ALK PHOS 99 U/L (45-117); BILIRUBIN,TOTAL 0.7 mg/dL (0.2-1.0); CREATININE 0.4 mg/dL (0.55-1.02); SGOT/AST 17 U/L (15-37); SGPT/ALT 31 U/L (12-78); TOT PROT 5.6 g/dl (6.4-8.2)
[2017-02-28] MEDS: LACTOBACILLUS ACIDOPHILUS 1 EACH TAB (FP) PO SCH (09:59)
[2017-02-28] MEDS: FERROUS SO4 325 MG TABLET (FP) PO SCH ×2 (09:59→22:41)
[2017-02-28] MEDS: PANTOPRAZOLE 40 MG TABLET (FP) PO SCH (09:59)
[2017-02-28] MEDS: LORATADINE 10 MG TABLET PO SCH (09:59)
[2017-02-28] MEDS ORDERED: VANCOMYCIN 1 GRAM (PRE-DOCKED) 250 ML IVPB SCH (10:00)
[2017-02-28] MEDS: BACITRACIN 15 GM TUBE TOPICAL OINTMENT TP SCH (10:06)
[2017-02-28] MEDS: NYSTATIN POWDER 100,000 UNITS/GM - 15 GM TOPICAL POWDER TP SCH (10:07)
[2017-02-28] MEDS: APIXABAN 2.5 MG TABLET PO SCH ×2 (10:09→22:41)
[2017-02-28] MEDS: ASCORBIC ACID 250 MG TABLET (FP) PO SCH (10:09)
[2017-02-28 10:46] LABS: ARTERIAL BLD GAS O2 SATURATION 99.6 % (90-98.9); ARTERIAL BLOOD GAS BASE EXCESS 5.3 meq/l (-2-2); ARTERIAL BLOOD GAS HCO3 29.2 meq/L (22-26); ARTERIAL BLOOD GAS pH 7.46 (7.35-7.45)
[2017-02-28 10:47] LABS: ALLENS TEST POSITIVE; ART PUNCT SITE LEFT RADIAL; LPM/O2% 50%; MECH. VENT. Y; PT. ON O2? YES; TYPE OF O2 MECH VENT
[2017-02-28 10:48] LABS: VENT RATE 14; VT/PRESS 450
--- NOTE | 2017-02-28 11:11 | CONSULT ---
Admitting History and Physical - Primary Care Physician PCP: Jacky Cook - Admission History of Present Illness: Per EMR: "Chief Complaint: abnormal CXR, SOB History of Present Illness: The patient is an 82 year old female with past medical history of anemia, atrial fibrillation, CHF, cardiac arrest (1998), COPD, s/p trach, vent dependent , UTIs and GI bleeds who arrives from [facility] to rule out pneumonia. While at the halfway the patient had a chest x-ray performed and was reported to have a left lung consolidation with volume loss suggesting of a atelectatic collapse. There may be an underlying pneumonia collapse. " L pneumonia/ atelectasis Sepsis secondary to lung source Chronic respiratory failure Selected Entries 02/26/17 02/26/17 02/27/17 17:13 19:36 06:16 Temperature 98.9 F 99.0 F 99.8 F H 02/27/17 02/27/17 02/27/17 08:49 12:27 12:43 Temperature 98 F 99.6 F 99.3 F 02/27/17 02/28/17 02/28/17 17:19 06:00 10:00 Temperature 98.1 F 98.2 F 98.4 F Laboratory Tests 02/26/17 02/27/17 02/28/17 17:45 06:30 07:36 WBC 27.1 H D 16.9 H D 16.1 H Last seen by me :Date: 01/18/17 12:35 Initialization Date: 01/18/17 12:35 Progress Note, CASING PULLER - Note Progress Note: Tolerating soft diet/thin liquid. Case reviewed with Pulmonary. F/u by palliative care regarding pt's wishes. Pending d/c.Pt becomes anxious on PMV, possibly secondary to large trach size, obstructing expiratory air flow. Consider trach downsize, if PMV will be used. Pt was on PUREE and THIN liguid as of 02/02/17 at [facility].Order 01/18 for PMV daily. Pt has a size 8 portex trach. History Source: Medical Record Limitations to Obtaining History: Clinical Condition - Past Medical History [employer]: Yes: CVA, Dementia, Parkinson's Cardiovascular: Yes: AFIB (Paroxysmal), CHF, HTN, Hyperlipdemia, Other (h/o cardiac arrest s/p AICD - Single lead) Pulmonary: Yes: COPD, Other (respiratory failure) Gastrointestinal: Yes: GERD Heme/Onc: Yes: Anemia - Past Surgical History Past Surgical History: Yes: AICD (Medtronic, implanted following cardiac arrest) , Cataract Removal (2011) - Smoking History Smoking history: Unknown if ever smoked Have you smoked in the past 12 months: No Aproximately how many cigarettes per day: 0 - Alcohol/Substance Use Hx Alcohol Use: No - Social History History of Recent Travel: No History - Admission Reason For Visit: URINARY TRACT INFECTION,CHRONIC RESPIRATORY - Diagnostics X-ray: Report Reviewed - General Mental Status: Awake and Alert, Able to Follow Commands, Forgetful, Confused, Flat Affect Attention: Distractible (Frequently closes eyes) Ability to Follow Directions: Fair Head/Neck Control: Fair - Hearing Hearing: Functional Speech Evaluation - Communication Primary Language: SLOVENIAN Oral Expression Ability: Yes: Non-Verbal (trach. Responds to yes/no questions) - Speech Characteristics Articulation: Yes: Precise - Language/Auditory Comprehension Follows: Yes: 1 Stage Simple Commands Observation: Able to respond to yes/no queries: Yes, Comprehends Conversational Speech: Yes (simple) - Swallow Evaluation/Bedside Assessment Current Nutritional Intake: Soft, [place] Textured Liquids Oral Secretions: Yes: WFL Dentition: Yes: Adequate Facial Symmetry at Rest: Symmetrical Facial Symmetry on Retraction: Symmetrical Facial Movement: Controlled Against Resistance Opening: Normal Against Resistance Closing: Normal Pucker Lips: Normal Smile: Normal Lingual Movement: Normal, Symmetric Lingual Speed of Movement: Reduced Lingual Movement Strgth Against Opposition: Reduced Lingual Movement Characteristics: Normal Laryngeal Movement: Able to Palpate, Labored,delay initiation (brisk) Bolus Size: WFL Labial Seal: WFL Chewing: Impaired (slow,labored, seems tired,weak) Oral Prep Time: Increased Coughing/Throat Clear: No Recommendations - Speech Evaluation, Impression/Plan Impression: #8 portex trach. Responds to yes/no questions. Continuously closes eyes. Slow mastication, seems reduced in efficiency, suspecty sec to clinical condition. Swallow is delayed but brisk. - Dysphagia Impressions/Plan Dysphagia Impressions: Ongoing Evaluation *Silent aspiration: cannot be R/O at bedside Dysphagia Treatment Plan: Chin Tuck/Down, Clear Pocket Food, Facilitative Feeding, Safe Rate, 1/2 tsp. at a time, Elevate HOB during feed, Other (Fully arouse pt and feed slowly.) Recommendations: Passy [place] Valve (Last PMV evaluation 01/06-PMV risk due to size 8 trach. Suggest PMV reassessment after medically stable and pumonary structure/function improves. PMV contraindicated at this time.) - Recommendations Diet Consistency: Dysphagia Minced, 1 - 2 Soft Items Medication Administration: Crushed with applesauce Liquids: Thin Liquids Supplement: Ensure
--- NOTE | 2017-02-28 12:44 | CONS ---
PULMONARY CONSULTATION DATE OF CONSULTATION: 02/27/2017 REFERRING PHYSICIAN: Jacky Cook MD HISTORY OF PRESENT ILLNESS: The patient is an 82-year-old white female known to me from previous hospitalization as well as followup at [facility], with a past medical history of chronic respiratory failure on ventilatory support, COPD status post tracheostomy. She has had a cardiac arrest, CHF, atrial fibrillation, anemia, UTIs, GI bleeds, transferred from [facility] to [facility] secondary to abnormal chest x-ray. Patient at the [facility] had a chest x-ray performed which revealed left lung consolidation, suggesting atelectatic change. She was transferred to [facility] ER for the above. The patient on admission had another followup chest x-ray again, which revealed some evidence of left upper lobe collapse and extensive atelectasis of the left lung, which is new. Patient is currently on ventilatory support. No acute distress. PAST MEDICAL HISTORY: Again, includes COPD status post tracheostomy, currently in chronic respiratory failure on ventilatory support. Atrial fibrillation, CHF, history of cardiac arrest, UTIs, GI bleeds, atrial fibrillation, and anemia. REVIEW OF SYSTEMS: Denies orthopnea. Denies any chest pain, palpitations. No abdominal pain. No lower extremity edema. CURRENT MEDICATIONS: Include Tylenol, bacitracin, Eliquis, Remeron, Bacid, DuoNeb, Artificial Tears, Lipitor, Feosol, Protonix, Claritin, and vitamin C. PHYSICAL EXAMINATION: General: The patient is an elderly white female, thin, well-developed, awake, alert, on ventilatory support, in no acute distress. Vital Signs: She is currently afebrile. Blood pressure is 97/53, respiratory rate is 20, O2 saturation is 97%. HEENT: Normocephalic, atraumatic. Neck: Supple. Heart: Irregular with normal S1, S2. Chest: Diminished breath sounds bilaterally. A few scattered rhonchi. Abdomen: Soft. Bowel sounds are positive. Extremities: No cyanosis or edema. LABORATORY DATA: WBC is 16.9, hemoglobin 7.9, hematocrit 25.6, with a platelet count of 334,000. Venous blood gas shows pH of 7.27, pCO2 of 75, a pO2 of 61, and bicarbonate of 33. is 763. BUN 33, creatinine 0.7. Chest x-ray again reveals left upper lobe extensive atelectasis in the left lung field. IMPRESSION: 1. [id number] hypercapnic, hypoxemic respiratory failure. 2. Advanced chronic obstructive pulmonary disease, end-stage, on ventilatory support. 3. Left lung atelectasis. 4. Atrial fibrillation. 5. History of congestive heart failure. 6. History of cardiac arrest. PLAN: Continue ventilator support. We will adjust ventilatory settings. Inhaled bronchodilators. Mucomyst. Pulmonary toilet. Followup chest x-ray. Antibiotics. If there is no improvement, will require bronchoscopy. ELLIS CABRERA M.D. [id number]
--- NOTE | 2017-02-28 13:04 | PN ---
Progress Note, Physician History of Present Illness: PULMONARY ALERT,ON VENT SUPPORT AC MODE ,COMFORTABLE,-RESP DISTRESS - Current Medication List Current Medications: Active Medications Acetaminophen (Tylenol -) 650 mg PO Q6H PRN PRN Reason: FEVER OR PAIN Acetylcysteine (Mucomyst 20 Oral / Inh Use Only*) 200 mg IH QIDR BREANN Albuterol Sulfate (Ventolin 0.5% -) 1 amp NEB QIDR BREANN Albuterol/Ipratropium (Duoneb -) 1 amp NEB Q6H PRN PRN Reason: SHORTNESS OF BREATH Apixaban (Eliquis -) 2.5 mg PO BID [facility] Last Admin: 02/28/17 10:09 Dose: 2.5 mg Artificial Tears (Artificial Tears) 1 drop OU BID PRN PRN Reason: DRY EYES Ascorbic Acid (Vitamin C -) 250 mg PO DAILY [facility] Last Admin: 02/28/17 10:09 Dose: 250 mg Atorvastatin Calcium (Lipitor -) 10 mg PO HS [facility] Last Admin: 02/27/17 21:50 Dose: 10 mg Bacitracin (Bacitracin -) 1 applic TP DAILY [facility] Last Admin: 02/28/17 10:06 Dose: 1 appful Ferrous Sulfate (Feosol -) 325 mg PO BID [facility] Last Admin: 02/28/17 09:59 Dose: 325 mg Piperacillin Sod/Tazobactam Sod (Zosyn 3.375gm Ivpb (Pre-Docked)) 50 mls @ 100 mls/hr IVPB Q8H-IV BREANN PRN Reason: Protocol Last Admin: 02/28/17 09:59 Dose: 100 mls/hr Vancomycin HCl (Vancomycin (Pre-Docked)) 250 mls @ 200 mls/hr IVPB BID BREANN Last Admin: 02/28/17 09:59 Dose: 200 mls/hr Lactobacillus Acidophilus (Bacid -) 1 tab PO DAILY [facility] Last Admin: 02/28/17 09:59 Dose: 1 tab Loratadine (Claritin -) 10 mg PO DAILY [facility] Last Admin: 02/28/17 09:59 Dose: 10 mg Mirtazapine (Remeron -) 15 mg PO HS [facility] Last Admin: 02/27/17 21:50 Dose: 15 mg Nystatin (Nystop Powder -) 1 applic TP DAILY [facility] Last Admin: 02/28/17 10:07 Dose: 1 applic Pantoprazole Sodium (Protonix -) 40 mg PO DAILY BREANN Last Admin: 02/28/17 09:59 Dose: 40 mg - Objective Vital Signs: Vital Signs Temperature 98.4 F 02/28/17 10:00 Pulse Rate 81 02/28/17 10:00 Respiratory Rate 17 02/28/17 10:00 Blood Pressure 115/54 02/28/17 10:00 O2 Sat by Pulse Oximetry (%) 99 02/27/17 12:43 Constitutional: Yes: Calm, Thin Eyes: Yes: WNL HENT: Yes: WNL Neck: Yes: Supple (TRACH) Cardiovascular: Yes: Pulse Irregular, S1, S2 Respiratory: Yes: Diminished Gastrointestinal: Yes: Normal Bowel Sounds, Soft Extremities: Yes: WNL Edema: No Labs: CBC, BMP 02/28/17 07:36 02/28/17 07:36 INR, PTT INR 1.32 (0.82-1.09) H 02/26/17 17:45 - ....Imaging Chest X-ray: Report Reviewed, Image Reviewed (INCREASED LEFT LUNG ATELECTASIS) Assessment/Plan IMP ACUTE ON CHRONIC HYPOXEMIC/HYPERCAPNEIC RESPIRATORY FAILURE LEFT LUNG ATELECTASIS END STAGE COPD AFIB CHF H/O GI BLEED PLAN VENT SUPPORT ON AC MODE WILL ADJUST SETTINGS INHALED BRONCHODILATORS MUCOMYST ABG F/U CHEST X-RAY FLEX BRONCHOSCOPY IF NO IMPROVEMENT RATE CONTROL DR CABRERA
--- NOTE | 2017-02-28 14:47 | EKG ---
Test Reason : Blood Pressure : / mmHG Vent. Rate : 093 BPM Atrial Rate : 093 BPM P-R Int : 120 ms QRS Dur : 076 ms QT Int : 356 ms P-R-T Axes : -51 -10 042 degrees QTc Int : 442 ms UNUSUAL P AXIS, POSSIBLE ECTOPIC ATRIAL RHYTHM ANTERIOR INFARCT , AGE UNDETERMINED ABNORMAL ECG WHEN COMPARED WITH ECG OF 14-JAN-2017 12:29, ECTOPIC ATRIAL RHYTHM HAS REPLACED JUNCTIONAL RHYTHM ANTERIOR INFARCT IS NOW PRESENT CRITERIA FOR INFERIOR INFARCT ARE NO LONGER PRESENT NONSPECIFIC T WAVE ABNORMALITY NO LONGER EVIDENT IN INFERIOR LEADS NONSPECIFIC T WAVE ABNORMALITY NOW EVIDENT IN ANTERIOR LEADS Confirmed by BLESSING LOPEZ MD ([id number]) on 02/28/2017 2:46:45 PM Referred By: Confirmed By:BLESSING LOPEZ MD
--- NOTE | 2017-02-28 15:23 | CONSULT ---
Consult Consult Specialty:: hematology/Oncology Reason for Consultation:: Anemia - History of Present Illness History of Present Illness: 82 year old female with past medical history of anemia, atrial fibrillation, CHF , cardiac arrest (1998), COPD, s/p trach, vent dependent, UTIs and GI bleeds who sent from [facility] for suspected PNA. Hematology consulted for anemia. Patient seen and examined. 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, Parkinson's Cardio/Vascular: Yes: AFIB (Paroxysmal), CHF, HTN, Hyperlipdemia, Other (h/o cardiac arrest s/p AICD - Single lead) Pulmonary: Yes: COPD, Other (respiratory failure) Gastrointestinal: Yes: GERD - Past Surgical History Past Surgical History: Yes: AICD ([employer]tr[employer], implanted following cardiac arrest) , Cataract Removal (2011) - Alcohol/Substance Use Hx Alcohol Use: No - Smoking History Smoking history: Unknown if ever smoked Have you smoked in the past 12 months: No Aproximately how many cigarettes per day: 0 - Social History Usual Living Arrangement: [facility] History of Recent Travel: No Home Medications - Allergies Allergies/Adverse Reactions: Allergies Allergy/AdvReac Type Severity Reaction Status Date / Time doxycycline Allergy Intermediate Verified 02/26/17 22:57 CLAMS Allergy Intermediate Hives Uncoded 02/26/17 22:57 - Home Medications Home Medications: Ambulatory Orders Acetaminophen [Tylenol] 650 mg PO Q4H PRN 10/19/16 Ascorbic Acid [Vitamin C -] 500 mg PO DAILY 10/19/16 Docusate Sodium 300 mg PO HS 10/19/16 Ferrous Sulfate 325 mg PO BID 10/19/16 Hypromellose 0.5% Opth Soln [Artificial Tears] 1 drop OU BID 10/19/16 Omeprazole 20 mg PO DAILY 10/19/16 Simvastatin [Zocor -] 20 mg PO HS 10/19/16 Albuterol 2.5/Ipratropium 0.5 [Duoneb -] 1 amp NEB QIDR amp 10/24/16 Aa/Hydrolyzed Collagen, Whey [Lps 15-30 Liquid] 30 ml PO BID 01/08/17 Bacitracin - [Bacitracin Topical Ointment -] 1 applic TP TID 01/08/17 Clonazepam [Klonopin -] 0.5 mg PO HS 02/26/17 L. Acidophilus/Pectin, [place] [Acidophilus Capsule] 1 tab PO DAILY 02/26/17 Mirtazapine 15 mg PO HS 02/26/17 Prednisone [Deltasone -] 20 mg PO DAILY 02/26/17 Rivaroxaban [Xarelto -] 20 mg PO DAILY 02/26/17 Multivitamins [Tab-A-Vit -] 1 tab PO DAILY 02/27/17 Silver Sulfadiazine 1% Top Cr [Silvadene -] 1 applic TP BID 02/27/17 Physical Exam Vital Signs: Vital Signs Temperature 98.4 F 02/28/17 10:00 Pulse Rate 79 02/28/17 15:08 Respiratory Rate 14 02/28/17 15:08 Blood Pressure 114/52 02/28/17 15:08 O2 Sat by Pulse Oximetry (%) 98 02/28/17 09:00 Constitutional: Yes: Thin, Other (Thin contracted female in no acute distress. Vent attached) HENT: Yes: Atraumatic, Normocephalic Neck: Yes: Supple Cardiovascular: Yes: WNL Respiratory: Yes: Other (On vent, rhonchourous breath sounds) Labs: CBC, BMP 02/28/17 07:36 02/28/17 07:36 Problem List - Problems (1) Anemia Code(s): D64.9 - ANEMIA, UNSPECIFIED (2) Atelectasis of left lung Code(s): J98.11 - ATELECTASIS (3) COPD (chronic obstructive pulmonary disease) Code(s): J44.9 - CHRONIC OBSTRUCTIVE PULMONARY DISEASE, UNSPECIFIED Qualifiers : COPD type: unspecified COPD Qualified Code(s): J44.9 - Chronic obstructive pulmonary disease, unspecified (4) Chronic respiratory failure Code(s): J96.10 - CHRONIC RESPIRATORY FAILURE, UNSP W HYPOXIA OR HYPERCAPNIA Qualifiers: Respiratory failure complication: hypercapnia Qualified Code(s): J96.12 - Chronic respiratory failure with hypercapnia (5) Pneumonia Code(s): J18.9 - PNEUMONIA, UNSPECIFIED ORGANISM Qualifiers: Pneumonia type: due to unspecified organism Laterality: left Lung location: lower lobe of lung Qualified Code(s): J18.1 - Lobar pneumonia, unspecified organism (6) Guaiac + stool Code(s): R19.5 - OTHER FECAL ABNORMALITIES (7) PAF (paroxysmal atrial fibrillation) Code(s): I48.0 - PAROXYSMAL ATRIAL FIBRILLATION Assessment/Plan Anemia A fib Stool occult positive PNA CHF h/o GI bleed Blood cx positive for Staph coagulase Leuckocytosis Plan: -s/p One unit of PRBC -reviewed iron studies, low iron, low sat, Iron deficiency anemia,?chronic GI bleed likely cause. (ferritin likely post transfusion) -c/w PO iron,can also consider IV iron for length of stay -will order other screening anemia labs. -PNA Rx -Leuckocytosis ,predominantly neutrophils, from PNA/Sepsis -On eliquis.
--- NOTE | 2017-02-28 16:28 | PN ---
Progress Note (short form) - Note Progress Note: ALERT TRACH TO VENT Vital Signs Period Temp Pulse Resp BP Sys/Vera Pulse Ox Last 24 Hr 98.1 F-98.4 F 73-81 14-18 97-115/52-58 98 COR-RRR LUNGS DECREASED BS ON LEFT ABD SOFT EXT NO EDEMA CBC, BMP 02/28/17 07:36 02/28/17 07:36 Microbiology 02/27/17 07:45 Sputum - Endotracheal Suction W/O Vent Gram Stain - Final 02/26/17 20:02 Urine - Urine - Catheterized Urine Culture - Preliminary Non Lactose Fermenting Gnb 02/26/17 17:45 Blood - Peripheral Venous Blood Culture - Preliminary Staphylococcus Coagulase Neg 02/26/17 17:45 Blood - Peripheral Venous Blood Culture - Preliminary NO GROWTH OBTAINED AFTER 24 HOURS, INCUBATION TO CONTINUE FOR 4 DAYS. Current Medications Acetaminophen (Tylenol -) 650 mg PO Q6H PRN PRN Reason: FEVER OR PAIN Acetylcysteine (Mucomyst 20 Oral / Inh Use Only*) 200 mg IH QIDR BREANN Albuterol Sulfate (Ventolin 0.5% -) 1 amp NEB QIDR BREANN Albuterol/Ipratropium (Duoneb -) 1 amp NEB Q6H PRN PRN Reason: SHORTNESS OF BREATH Apixaban (Eliquis -) 2.5 mg PO BID [facility] Last Admin: 02/28/17 10:09 Dose: 2.5 mg Artificial Tears (Artificial Tears) 1 drop OU BID PRN PRN Reason: DRY EYES Ascorbic Acid (Vitamin C -) 250 mg PO DAILY [facility] Last Admin: 02/28/17 10:09 Dose: 250 mg Atorvastatin Calcium (Lipitor -) 10 mg PO HS [facility] Last Admin: 02/27/17 21:50 Dose: 10 mg Bacitracin (Bacitracin -) 1 applic TP DAILY [facility] Last Admin: 02/28/17 10:06 Dose: 1 appful Ferrous Sulfate (Feosol -) 325 mg PO BID [facility] Last Admin: 02/28/17 09:59 Dose: 325 mg Piperacillin Sod/Tazobactam Sod (Zosyn 3.375gm Ivpb (Pre-Docked)) 50 mls @ 100 mls/hr IVPB Q8H-IV [facility] PRN Reason: Protocol Last Admin: 02/28/17 09:59 Dose: 100 mls/hr Vancomycin HCl (Vancomycin (Pre-Docked)) 250 mls @ 200 mls/hr IVPB BID [facility] Last Admin: 02/28/17 09:59 Dose: 200 mls/hr Lactobacillus Acidophilus (Bacid -) 1 tab PO DAILY [facility] Last Admin: 02/28/17 09:59 Dose: 1 tab Loratadine (Claritin -) 10 mg PO DAILY [facility] Last Admin: 02/28/17 09:59 Dose: 10 mg Mirtazapine (Remeron -) 15 mg PO HS [facility] Last Admin: 02/27/17 21:50 Dose: 15 mg Nystatin (Nystop Powder -) 1 applic TP DAILY [facility] Last Admin: 02/28/17 10:07 Dose: 1 applic Pantoprazole Sodium (Protonix -) 40 mg PO DAILY [facility] Last Admin: 02/28/17 09:59 Dose: 40 mg A/P ATELECTASIS OF THE LEFT LUNG BLOOD CULTURE- LIKELY CONTAMINANT ?UTI CONTINUE ZOSYN D/C VANCOMYCIN
[2017-02-28] MEDS: ACETYLCYSTEINE 20% 200MG/ML 4 ML VIAL *FOR ORAL / INH USE ONLY IH SCH (18:30)
[2017-02-28] MEDS: ALBUTEROL SO4 0.5 % INH SOLN 2.5 MG/0.5 ML VIAL.NEB. NEB SCH (18:30)
--- NOTE | 2017-02-28 19:12 | CON.GI ---
Consult Consult Specialty:: gastroenterology Reason for Consultation:: anemia - History of Present Illness History of Present Illness: The patient is an 82 year old female with past medical history of anemia, atrial fibrillation, CHF, cardiac arrest (1998), COPD, s/p trach, vent dependent , UTIs and GI bleeds who [facility] from [facility] to rule out pneumonia. [facility] the patient had a chest x-ray performed and wasr reported to have a left lung consolidation with volume loss suggesting of a atelectatic collapse. There may be an underlying pneumonia collapse. The patient was admitted to the hospital in December for a UTI. No further history can be obtained due to patient being trached. There were no reports of rectal bleding, melena and abdominal pain. 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, Dementia, Parkinson's Cardio/Vascular: Yes: AFIB (Paroxysmal), CHF, HTN, Hyperlipdemia, Other (h/o cardiac arrest s/p AICD - Single lead) Pulmonary: Yes: COPD, Other (respiratory failure) Gastrointestinal: Yes: GERD - Past Surgical History Past Surgical History: Yes: AICD ([employer]tr[employer], implanted following cardiac arrest) , Cataract Removal (2011) - Alcohol/Substance Use Hx Alcohol Use: No - Smoking History Smoking history: Unknown if ever smoked Have you smoked in the past 12 months: No Aproximately how many cigarettes per day: 0 - Social History Usual Living Arrangement: [facility] History of Recent Travel: No Home Medications - Allergies Allergies/Adverse Reactions: Allergies Allergy/AdvReac Type Severity Reaction Status Date / Time doxycycline Allergy Intermediate Verified 02/26/17 22:57 CLAMS Allergy Intermediate Hives Uncoded 02/26/17 22:57 - Home Medications Home Medications: Ambulatory Orders Acetaminophen [Tylenol] 650 mg PO Q4H PRN 10/19/16 Ascorbic Acid [Vitamin C -] 500 mg PO DAILY 10/19/16 Docusate Sodium 300 mg PO HS 10/19/16 Ferrous Sulfate 325 mg PO BID 10/19/16 Hypromellose 0.5% Opth Soln [Artificial Tears] 1 drop OU BID 10/19/16 Omeprazole 20 mg PO DAILY 10/19/16 Simvastatin [Zocor -] 20 mg PO HS 10/19/16 Albuterol 2.5/Ipratropium 0.5 [Duoneb -] 1 amp NEB QIDR amp 10/24/16 Aa/Hydrolyzed Collagen, [place] [Lps 15-30 Liquid] 30 ml PO BID 01/08/17 Bacitracin - [Bacitracin Topical Ointment -] 1 applic TP TID 01/08/17 Clonazepam [Klonopin -] 0.5 mg PO HS 02/26/17 L. Acidophilus/Pectin, [place] [Acidophilus Capsule] 1 tab PO DAILY 02/26/17 Mirtazapine 15 mg PO HS 02/26/17 Prednisone [Deltasone -] 20 mg PO DAILY 02/26/17 Rivaroxaban [Xarelto -] 20 mg PO DAILY 02/26/17 Multivitamins [Tab-A-Vit -] 1 tab PO DAILY 02/27/17 Silver Sulfadiazine 1% Top Cr [Silvadene -] 1 applic TP BID 02/27/17 Review of Systems Unable to obtain ROS, reason: due to medical condition Physical Exam-GI Vital Signs: Vital Signs Temperature 98.4 F 02/28/17 10:00 Pulse Rate 79 02/28/17 15:08 Respiratory Rate 18 02/28/17 18:22 Blood Pressure 114/52 02/28/17 15:08 O2 Sat by Pulse Oximetry (%) 98 02/28/17 09:00 Constitutional: Yes: Well Nourished Eyes: Yes: Conjunctiva Clear HENT: Yes: Atraumatic Neck: Yes: Supple Cardiovascular: Yes: Regular Rate and Rhythm Respiratory: Yes: Diminished, Rhonchi ...Palpate: Yes: Soft. No: Firm/Rigid, Guarding, Hepatomegaly, Mass, Pulsatile Mass, Splenomegaly, Tenderness Labs: CBC, BMP 02/28/17 07:36 02/28/17 07:36 INR, PTT INR 1.32 (0.82-1.09) H 02/26/17 17:45 Hepatic Panel Total Bilirubin 0.7 mg/dL (0.2-1.0) D 02/28/17 07:36 AST 17 U/L (15-37) D 02/28/17 07:36 ALT 31 U/L (12-78) D 02/28/17 07:36 Alkaline Phosphatase 99 U/L (45-117) 02/28/17 07:36 Albumin 1.7 g/dl (3.4-5.0) L 02/28/17 07:36 Problem List - Problems (1) Guaiac + stool Assessment/Plan: oocult gi bleeding R> consider to transfuse 1 unit of PRBC she is a poor candidate for any gi procedures at this time Code(s): R19.5 - OTHER FECAL ABNORMALITIES
[2017-02-28] MEDS: MIRTAZAPINE 15 MG TABLET (FP) PO SCH (22:42)
[2017-02-28] MEDS: ATORVASTATIN CA 10 MG TABLET (FP) PO SCH (22:42)
[2017-03-01] MEDS: ACETYLCYSTEINE 20% 200MG/ML 4 ML VIAL *FOR ORAL / INH USE ONLY IH SCH ×5 (00:06→23:27)
[2017-03-01] MEDS: ALBUTEROL SO4 0.5 % INH SOLN 2.5 MG/0.5 ML VIAL.NEB. NEB SCH ×5 (00:06→23:27)
[2017-03-01] MEDS: PIPERACILLIN/TAZOB 3.375 GM 50 ML IVPB SCH ×2 (02:00→12:02)
[2017-03-01] MEDS: ACETAMINOPHEN 325 MG TABLET (FP) PO PRN (02:14)
--- NOTE | 2017-03-01 11:55 | PN ---
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 Pt received chunks of carrots that she could not tolerate. Pt was downgraded to dys chopped and thin liquid. Selected Entries 02/28/17 02/28/17 02/28/17 06:00 10:00 15:08 Breakfast 75% Lunch 50% Supper Temperature 98.2 F 98.4 F 02/28/17 02/28/17 03/01/17 19:00 22:00 02:00 Breakfast Lunch Supper 50% Temperature 100.4 F H 97.3 F L 101.8 F H 03/01/17 06:00 Breakfast Lunch Supper Temperature 99.5 F Laboratory Tests 02/27/17 02/28/17 06:30 07:36 WBC 16.9 H D 16.1 H Monitor tolerance. If difficulty, downgrade to puree.
[2017-03-01] MEDS: BACITRACIN 15 GM TUBE TOPICAL OINTMENT TP SCH (11:59)
[2017-03-01] MEDS ORDERED: PT OWN MED DRAWER 7, Y5N ONE ×2 (11:59→22:53)
[2017-03-01] MEDS: NYSTATIN POWDER 100,000 UNITS/GM - 15 GM TOPICAL POWDER TP SCH (11:59)
[2017-03-01] MEDS: PANTOPRAZOLE 40 MG TABLET (FP) PO SCH (12:02)
[2017-03-01] MEDS: FERROUS SO4 325 MG TABLET (FP) PO SCH ×2 (12:03→23:09)
[2017-03-01] MEDS: LACTOBACILLUS ACIDOPHILUS 1 EACH TAB (FP) PO SCH (12:03)
[2017-03-01] MEDS: LORATADINE 10 MG TABLET PO SCH (12:03)
[2017-03-01] MEDS: ASCORBIC ACID 250 MG TABLET (FP) PO SCH (12:04)
[2017-03-01] MEDS: APIXABAN 2.5 MG TABLET PO SCH ×2 (12:04→23:09)
[2017-03-01] MEDS ORDERED: IRON SUCROSE INJECTION 200 MG in SODIUM CHLORIDE 100 ML IVPB ONE (12:30)
--- NOTE | 2017-03-01 14:13 | PN ---
Progress Note, Physician History of Present Illness: PULMONARY ALERT,ON VENT SUPPORT AC MODE,-RESP DISTRESS - Current Medication List Current Medications: Active Medications Acetaminophen (Tylenol -) 650 mg PO Q6H PRN PRN Reason: FEVER OR PAIN Last Admin: 03/01/17 02:14 Dose: 650 mg Acetylcysteine (Mucomyst 20 Oral / Inh Use Only*) 200 mg IH QIDR [facility] Last Admin: 03/01/17 12:05 Dose: 200 mg Albuterol Sulfate (Ventolin 0.5% -) 1 amp NEB QIDR [facility] Last Admin: 03/01/17 12:05 Dose: 1 amp Albuterol/Ipratropium (Duoneb -) 1 amp NEB Q6H PRN PRN Reason: SHORTNESS OF BREATH Apixaban (Eliquis -) 2.5 mg PO BID [facility] Last Admin: 03/01/17 12:04 Dose: 2.5 mg Artificial Tears (Artificial Tears) 1 drop OU BID PRN PRN Reason: DRY EYES Ascorbic Acid (Vitamin C -) 250 mg PO DAILY [facility] Last Admin: 03/01/17 12:04 Dose: 250 mg Atorvastatin Calcium (Lipitor -) 10 mg PO HS [facility] Last Admin: 02/28/17 22:42 Dose: 10 mg Bacitracin (Bacitracin -) 1 applic TP DAILY [facility] Last Admin: 03/01/17 11:59 Dose: 1 applic Ferrous Sulfate (Feosol -) 325 mg PO BID [facility] Last Admin: 03/01/17 12:03 Dose: 325 mg Piperacillin Sod/Tazobactam Sod (Zosyn 3.375gm Ivpb (Pre-Docked)) 50 mls @ 100 mls/hr IVPB Q8H-IV [facility] PRN Reason: Protocol Last Admin: 03/01/17 12:02 Dose: 100 mls/hr Lactobacillus Acidophilus (Bacid -) 1 tab PO DAILY [facility] Last Admin: 03/01/17 12:03 Dose: 1 tab Loratadine (Claritin -) 10 mg PO DAILY [facility] Last Admin: 03/01/17 12:03 Dose: 10 mg Mirtazapine (Remeron -) 15 mg PO HS [facility] Last Admin: 02/28/17 22:42 Dose: 15 mg Nystatin (Nystop Powder -) 1 applic TP DAILY [facility] Last Admin: 03/01/17 11:59 Dose: 1 applic Pantoprazole Sodium (Protonix -) 40 mg PO DAILY [facility] Last Admin: 03/01/17 12:02 Dose: 40 mg - Objective Vital Signs: Vital Signs Temperature 99.1 F 03/01/17 10:00 Pulse Rate 84 03/01/17 10:00 Respiratory Rate 18 03/01/17 12:44 Blood Pressure 101/61 03/01/17 10:00 O2 Sat by Pulse Oximetry (%) 96 02/28/17 21:00 Constitutional: Yes: Calm, Thin Eyes: Yes: WNL HENT: Yes: WNL Neck: Yes: Supple (TRACH) Cardiovascular: Yes: Pulse Irregular, S1, S2 Respiratory: Yes: Diminished (DIMINISHED BS ON LEFT), Rhonchi Gastrointestinal: Yes: Normal Bowel Sounds, Soft Extremities: Yes: WNL Edema: No Labs: CBC, BMP 02/28/17 07:36 02/28/17 07:36 INR, PTT INR 1.32 (0.82-1.09) H 02/26/17 17:45 Problem List - Problems (1) Anemia Code(s): D64.9 - ANEMIA, UNSPECIFIED (2) COPD (chronic obstructive pulmonary disease) Code(s): J44.9 - CHRONIC OBSTRUCTIVE PULMONARY DISEASE, UNSPECIFIED Qualifiers : COPD type: unspecified COPD Qualified Code(s): J44.9 - Chronic obstructive pulmonary disease, unspecified (3) Chronic respiratory failure Code(s): J96.10 - CHRONIC RESPIRATORY FAILURE, UNSP W HYPOXIA OR HYPERCAPNIA Qualifiers: Respiratory failure complication: hypercapnia Qualified Code(s): J96.12 - Chronic respiratory failure with hypercapnia (4) AICD (automatic cardioverter/defibrillator) present Code(s): Z95.810 - PRESENCE OF AUTOMATIC (IMPLANTABLE) CARDIAC DEFIBRILLATOR (5) Acute and chronic respiratory failure with hypercapnia Code(s): J96.22 - ACUTE AND CHRONIC RESPIRATORY FAILURE WITH HYPERCAPNIA (6) HTN (hypertension) Code(s): I10 - ESSENTIAL (PRIMARY) HYPERTENSION (7) Hyperlipemia Code(s): E78.5 - HYPERLIPIDEMIA, UNSPECIFIED (8) PAF (paroxysmal atrial fibrillation) Code(s): I48.0 - PAROXYSMAL ATRIAL FIBRILLATION (9) Respirator dependence Code(s): Z99.11 - DEPENDENCE ON RESPIRATOR [VENTILATOR] STATUS (10) Atelectasis of left lung Code(s): J98.11 - ATELECTASIS (11) Atelectasis Code(s): J98.11 - ATELECTASIS Assessment/Plan IMP ACUTE ON CHRONIC HYPOXEMIC/HYPERCAPNEIC RESPIRATORY FAILURE LEFT LUNG ATELECTASIS END STAGE COPD AFIB CHF H/O GI BLEED PLAN VENT SUPPORT ON AC MODE WILL ADJUST SETTINGS INHALED BRONCHODILATORS MUCOMYST F/U CHEST X-RAY TODAY FLEX BRONCHOSCOPY IF NO IMPROVEMENT RATE CONTROL DR CABRERA
--- NOTE | 2017-03-01 15:21 | PN ---
Progress Note, Physician Chief Complaint: UTI,Anemia, Pneumonia History of Present Illness: NAD, in bed, mechanically vented, alert - Current Medication List Current Medications: Active Medications Acetaminophen (Tylenol -) 650 mg PO Q6H PRN PRN Reason: FEVER OR PAIN Last Admin: 03/01/17 02:14 Dose: 650 mg Acetylcysteine (Mucomyst 20 Oral / Inh Use Only*) 200 mg IH QIDR [facility] Last Admin: 03/01/17 12:05 Dose: 200 mg Albuterol Sulfate (Ventolin 0.5% -) 1 amp NEB QIDR [facility] Last Admin: 03/01/17 12:05 Dose: 1 amp Albuterol/Ipratropium (Duoneb -) 1 amp NEB Q6H PRN PRN Reason: SHORTNESS OF BREATH Apixaban (Eliquis -) 2.5 mg PO BID [facility] Last Admin: 03/01/17 12:04 Dose: 2.5 mg Artificial Tears (Artificial Tears) 1 drop OU BID PRN PRN Reason: DRY EYES Ascorbic Acid (Vitamin C -) 250 mg PO DAILY [facility] Last Admin: 03/01/17 12:04 Dose: 250 mg Atorvastatin Calcium (Lipitor -) 10 mg PO HS [facility] Last Admin: 02/28/17 22:42 Dose: 10 mg Bacitracin (Bacitracin -) 1 applic TP DAILY [facility] Last Admin: 03/01/17 11:59 Dose: 1 applic Ferrous Sulfate (Feosol -) 325 mg PO BID [facility] Last Admin: 03/01/17 12:03 Dose: 325 mg Piperacillin Sod/Tazobactam Sod (Zosyn 3.375gm Ivpb (Pre-Docked)) 50 mls @ 100 mls/hr IVPB Q8H-IV [facility] PRN Reason: Protocol Last Admin: 03/01/17 12:02 Dose: 100 mls/hr Lactobacillus Acidophilus (Bacid -) 1 tab PO DAILY [facility] Last Admin: 03/01/17 12:03 Dose: 1 tab Loratadine (Claritin -) 10 mg PO DAILY [facility] Last Admin: 03/01/17 12:03 Dose: 10 mg Mirtazapine (Remeron -) 15 mg PO HS [facility] Last Admin: 02/28/17 22:42 Dose: 15 mg Nystatin (Nystop Powder -) 1 applic TP DAILY [facility] Last Admin: 03/01/17 11:59 Dose: 1 applic Pantoprazole Sodium (Protonix -) 40 mg PO DAILY [facility] Last Admin: 03/01/17 12:02 Dose: 40 mg - Objective Vital Signs: Vital Signs Temperature 99.1 F 03/01/17 10:00 Pulse Rate 84 03/01/17 10:00 Respiratory Rate 18 03/01/17 12:44 Blood Pressure 101/61 03/01/17 10:00 O2 Sat by Pulse Oximetry (%) 96 02/28/17 21:00 Constitutional: Yes: Well Nourished, No Distress, Calm Cardiovascular: Yes: Pulse Irregular Respiratory: Yes: Mechanically Ventilated Gastrointestinal: Yes: Normal Bowel Sounds Musculoskeletal: Yes: WNL Extremities: Yes: WNL Edema: No Peripheral Pulses WNL: Yes Neurological: Yes: Alert, Oriented Psychiatric: Yes: Alert, Oriented Labs: CBC, BMP 02/28/17 07:36 02/28/17 07:36 INR, PTT INR 1.32 (0.82-1.09) H 02/26/17 17:45 Problem List - Problems (1) Anemia Assessment/Plan: -1 unit PRBC on admission -monitor labs -stool OB positive -iron studies low on Iron, -ferrous sulfate BID -Venofer x 1 dose -hematology consult Code(s): D64.9 - ANEMIA, UNSPECIFIED (2) Chronic respiratory failure Assessment/Plan: on mechanical ventilation Code(s): J96.10 - CHRONIC RESPIRATORY FAILURE, UNSP W HYPOXIA OR HYPERCAPNIA Qualifiers: Respiratory failure complication: hypercapnia Qualified Code(s): J96.12 - Chronic respiratory failure with hypercapnia (3) Pneumonia Assessment/Plan: ID and pulmonary consult IV abx Code(s): J18.9 - PNEUMONIA, UNSPECIFIED ORGANISM Qualifiers: Pneumonia type: due to unspecified organism Laterality: left Lung location: lower lobe of lung Qualified Code(s): J18.1 - Lobar pneumonia, unspecified organism (4) UTI (urinary tract infection) Assessment/Plan: UC positive for proteus mirabilus esbl -ID consult -IV abx Code(s): N39.0 - URINARY TRACT INFECTION, SITE NOT SPECIFIED Qualifiers: Urinary tract infection type: site unspecified Hematuria presence: without hematuria Qualified Code(s): N39.0 - Urinary tract infection, site not specified; R31.9 - Hematuria, unspecified (5) Fever Assessment/Plan: -repeat BC -tylenol for fever over 100.0F -repeat labs in AM Code(s): R50.9 - FEVER, UNSPECIFIED (6) Functional quadriplegia Code(s): R53.2 - FUNCTIONAL QUADRIPLEGIA Assessment/Plan -ID,Pulmonary,Hematology,GI,Cardiology consult -IV abx -labs in AM -repeat BC -diet modification to dysphagia chopped -repeat CXR -neb tx -discontinuation of AC to be decided after cardiology evaluation, Risk of AC may outweigh benefits
--- NOTE | 2017-03-01 15:39 | PN ---
Progress Note, Physician History of Present Illness: More awake and alert No acute distress Temp noted Urine c/s ESBL BC no growth - Current Medication List Current Medications: Active Medications Acetaminophen (Tylenol -) 650 mg PO Q6H PRN PRN Reason: FEVER OR PAIN Last Admin: 03/01/17 02:14 Dose: 650 mg Acetylcysteine (Mucomyst 20 Oral / Inh Use Only*) 200 mg IH QIDR [facility] Last Admin: 03/01/17 12:05 Dose: 200 mg Albuterol Sulfate (Ventolin 0.5% -) 1 amp NEB QIDR [facility] Last Admin: 03/01/17 12:05 Dose: 1 amp Albuterol/Ipratropium (Duoneb -) 1 amp NEB Q6H PRN PRN Reason: SHORTNESS OF BREATH Apixaban (Eliquis -) 2.5 mg PO BID [facility] Last Admin: 03/01/17 12:04 Dose: 2.5 mg Artificial Tears (Artificial Tears) 1 drop OU BID PRN PRN Reason: DRY EYES Ascorbic Acid (Vitamin C -) 250 mg PO DAILY [facility] Last Admin: 03/01/17 12:04 Dose: 250 mg Atorvastatin Calcium (Lipitor -) 10 mg PO HS [facility] Last Admin: 02/28/17 22:42 Dose: 10 mg Bacitracin (Bacitracin -) 1 applic TP DAILY [facility] Last Admin: 03/01/17 11:59 Dose: 1 applic Ferrous Sulfate (Feosol -) 325 mg PO BID [facility] Last Admin: 03/01/17 12:03 Dose: 325 mg Piperacillin Sod/Tazobactam Sod (Zosyn 3.375gm Ivpb (Pre-Docked)) 50 mls @ 100 mls/hr IVPB Q8H-IV [facility] PRN Reason: Protocol Last Admin: 03/01/17 12:02 Dose: 100 mls/hr Lactobacillus Acidophilus (Bacid -) 1 tab PO DAILY [facility] Last Admin: 03/01/17 12:03 Dose: 1 tab Loratadine (Claritin -) 10 mg PO DAILY [facility] Last Admin: 03/01/17 12:03 Dose: 10 mg Mirtazapine (Remeron -) 15 mg PO HS [facility] Last Admin: 02/28/17 22:42 Dose: 15 mg Nystatin (Nystop Powder -) 1 applic TP DAILY [facility] Last Admin: 03/01/17 11:59 Dose: 1 applic Pantoprazole Sodium (Protonix -) 40 mg PO DAILY [facility] Last Admin: 03/01/17 12:02 Dose: 40 mg - Objective Vital Signs: Vital Signs Temperature 99.1 F 03/01/17 10:00 Pulse Rate 84 03/01/17 10:00 Respiratory Rate 18 03/01/17 12:44 Blood Pressure 101/61 03/01/17 10:00 O2 Sat by Pulse Oximetry (%) 96 02/28/17 21:00 Constitutional: Yes: No Distress Neck: Yes: Other (+ trach) Cardiovascular: Yes: Regular Rate and Rhythm, S1, S2 Respiratory: Yes: Rhonchi Gastrointestinal: Yes: Normal Bowel Sounds, Soft Edema: No Labs: CBC, BMP 02/28/17 07:36 02/28/17 07:36 INR, PTT INR 1.32 (0.82-1.09) H 02/26/17 17:45 Assessment/Plan Fever- Lung v. source Pneumonia/atelectasis Respiratory failure UTI ESBL Will substitute meropenem Contact precautions
[2017-03-01] MEDS ORDERED: MEROPENEM 500 MG VIAL (RESTRICTED TO ID) IVPB SCH (15:45)
--- NOTE | 2017-03-01 15:49 | CON.CARD ---
Consult Consult Specialty:: Cardiology - History of Present Illness Chief Complaint: R/O pneumonia History of Present Illness: This is an 82 year old male with a PMH of PAFIB, HLD, CHF, S/P cardiac arrest in 1998, S/P Medtronic AICD single lead, COPD, s/p trach and vent dependent. He was admitted from a chronic care facility with R/O pneumonia, UTI, possible GIB. HCT 26.4%. Presently take Xarelto. 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's Cardio/Vascular: Yes: AFIB (Paroxysmal), CHF, HTN, Hyperlipdemia, Other (h/o cardiac arrest s/p AICD - Single lead) Pulmonary: Yes: COPD, Other (respiratory failure) Gastrointestinal: Yes: GERD - Past Surgical History Past Surgical History: Yes: AICD (Medtronic, implanted following cardiac arrest) , Cataract Removal (2011) - Alcohol/Substance Use Hx Alcohol Use: No - Smoking History Smoking history: Unknown if ever smoked Have you smoked in the past 12 months: No Aproximately how many cigarettes per day: 0 - Social History Usual Living Arrangement: Skilled Nursing History of Recent Travel: No Home Medications - Allergies Allergies/Adverse Reactions: Allergies Allergy/AdvReac Type Severity Reaction Status Date / Time doxycycline Allergy Intermediate Verified 02/26/17 22:57 [facility] Allergy Intermediate Hives Uncoded 02/26/17 22:57 - Home Medications Home Medications: Ambulatory Orders Acetaminophen [Tylenol] 650 mg PO Q4H PRN 10/19/16 Ascorbic Acid [Vitamin C -] 500 mg PO DAILY 10/19/16 Docusate Sodium 300 mg PO HS 10/19/16 Ferrous Sulfate 325 mg PO BID 10/19/16 Hypromellose 0.5% Opth Soln [Artificial Tears] 1 drop OU BID 10/19/16 Omeprazole 20 mg PO DAILY 10/19/16 Simvastatin [Zocor -] 20 mg PO HS 10/19/16 Albuterol 2.5/Ipratropium 0.5 [Duoneb -] 1 amp NEB QIDR amp 10/24/16 Aa/Hydrolyzed Collagen, Whey [Lps 15-30 Liquid] 30 ml PO BID 01/08/17 Bacitracin - [Bacitracin Topical Ointment -] 1 applic TP TID 01/08/17 Clonazepam [Klonopin -] 0.5 mg PO HS 02/26/17 L. Acidophilus/Pectin, [place] [Acidophilus Capsule] 1 tab PO DAILY 02/26/17 Mirtazapine 15 mg PO HS 02/26/17 Prednisone [Deltasone -] 20 mg PO DAILY 02/26/17 Rivaroxaban [Xarelto -] 20 mg PO DAILY 02/26/17 Multivitamins [Tab-A-Vit -] 1 tab PO DAILY 02/27/17 Silver Sulfadiazine 1% Top Cr [Silvadene -] 1 applic TP BID 02/27/17 Review of Systems Unable to obtain ROS, reason: As per HPI Vital Signs: Vital Signs Temperature 99.1 F 03/01/17 10:00 Pulse Rate 84 03/01/17 10:00 Respiratory Rate 18 03/01/17 12:44 Blood Pressure 101/61 03/01/17 10:00 O2 Sat by Pulse Oximetry (%) 96 02/28/17 21:00 Constitutional: Yes: Thin, Other (Tach/Vent) Respiratory: Yes: Other (Course Vent sounds bilaterally) Gastrointestinal: Yes: Soft Cardiovascular: Yes: Pulse Irregular Heart Sounds: Yes: S1, S2 Extremities: Yes: WNL Edema: No Neurological: Yes: Other (Non focal) - Other Data Labs, Other Data: CBC, BMP 02/28/17 07:36 02/28/17 07:36 INR, PTT INR 1.32 (0.82-1.09) H 02/26/17 17:45 Assessment/Plan Paroxsymal Atrial Fibrillation Presently in an ectopic rhythm Continue Xarelto 20 mg for now Follow HCT and would hold Xarelto if HCT drifts down Will follow with you
[2017-03-01] MEDS: MEROPENEM 500 MG in DEXTROSE 5%-WATER - 100 ML IVPB SCH (17:56)
[2017-03-01] MEDS ORDERED: IRON SUCROSE INJECTION 100 MG in SODIUM CHLORIDE 95 ML IVPB ONE (19:28)
--- NOTE | 2017-03-01 19:28 | PN ---
Progress Note (short form) - Note Progress Note: Lying comfortably. General: No Distress Neck: +trach to vent Cardiovascular: Regular Rate and Rhythm, S1, S2 Respiratory: Rhonchi Gastrointestinal: Soft Edema: none Last Vital Signs Temp Pulse Resp BP Pulse Ox 99.5 F 98 H 18 113/81 98 03/01/17 19:25 03/01/17 19:25 03/01/17 19:25 03/01/17 19:25 03/01/17 09:00 CBC, BMP 02/28/17 07:36 02/28/17 07:36 Current Medications Generic Name Dose Route Start Last Admin Trade Name Freq PRN Reason Stop Dose Admin Acetaminophen 650 mg 02/26/17 22:47 03/01/17 02:14 Tylenol - PO 650 mg Q6H PRN Administration FEVER OR PAIN Acetylcysteine 200 mg 02/28/17 18:00 03/01/17 18:25 Mucomyst 20 Oral / Inh Use Only* IH 200 mg QIDR BREANN Administration Albuterol Sulfate 1 amp 02/28/17 18:00 03/01/17 18:25 Ventolin 0.5% - NEB 1 amp QIDR BREANN Administration Albuterol/Ipratropium 1 amp 02/26/17 22:47 Duoneb - NEB Q6H PRN SHORTNESS OF BREATH Apixaban 2.5 mg 02/27/17 10:00 03/01/17 12:04 Eliquis - PO 2.5 mg BID BREANN Administration Artificial Tears 1 drop 02/26/17 22:47 Artificial Tears OU BID PRN DRY EYES Ascorbic Acid 250 mg 02/27/17 10:00 03/01/17 12:04 Vitamin C - PO 250 mg DAILY BREANN Administration Atorvastatin Calcium 10 mg 02/27/17 22:00 02/28/17 22:42 Lipitor - PO 10 mg HS BREANN Administration Bacitracin 1 applic 02/27/17 10:00 03/01/17 11:59 Bacitracin - TP 1 applic DAILY BREANN Administration Ferrous Sulfate 325 mg 02/27/17 10:00 03/01/17 12:03 Feosol - PO 325 mg BID BREANN Administration Meropenem 500 mg/ Dextrose 100 mls @ 200 mls/hr 03/01/17 17:00 03/01/17 17:56 IVPB 200 mls/hr Q8H-IV BREANN Administration Lactobacillus Acidophilus 1 tab 02/27/17 10:00 03/01/17 12:03 Bacid - PO 1 tab DAILY BREANN Administration Loratadine 10 mg 02/27/17 10:00 03/01/17 12:03 Claritin - PO 10 mg DAILY BREANN Administration Mirtazapine 15 mg 02/27/17 22:00 02/28/17 22:42 Remeron - PO 15 mg HS BREANN Administration Nystatin 1 applic 02/27/17 10:00 03/01/17 11:59 Nystop Powder - TP 1 applic DAILY BREANN Administration Pantoprazole Sodium 40 mg 02/27/17 10:00 03/01/17 12:02 Protonix - PO 40 mg DAILY BREANN Administration Assessment/Plan: Anemia A fib Stool occult positive PNA CHF h/o GI bleed Blood cx positive for Staph coagulase UTI Leuckocytosis Plan: -s/p One unit of PRBC -reviewed iron studies, low iron, low sat, Iron deficiency anemia,?chronic GI bleed likely cause. (ferritin likely post transfusion) -c/w PO iron,can also consider IV iron for length of stay -will f/u on screening anemia labs. -PNA Rx -Leuckocytosis ,predominantly neutrophils, from PNA/Sepsis -cardiology eval and GI eval noted. will follow Problem List - Problems (1) Anemia Code(s): D64.9 - ANEMIA, UNSPECIFIED (2) Atelectasis of left lung Code(s): J98.11 - ATELECTASIS (3) COPD (chronic obstructive pulmonary disease) Code(s): J44.9 - CHRONIC OBSTRUCTIVE PULMONARY DISEASE, UNSPECIFIED Qualifiers : COPD type: unspecified COPD Qualified Code(s): J44.9 - Chronic obstructive pulmonary disease, unspecified (4) Chronic respiratory failure Code(s): J96.10 - CHRONIC RESPIRATORY FAILURE, UNSP W HYPOXIA OR HYPERCAPNIA Qualifiers: Respiratory failure complication: hypercapnia Qualified Code(s): J96.12 - Chronic respiratory failure with hypercapnia (5) Pneumonia Code(s): J18.9 - PNEUMONIA, UNSPECIFIED ORGANISM Qualifiers: Pneumonia type: due to unspecified organism Laterality: left Lung location: lower lobe of lung Qualified Code(s): J18.1 - Lobar pneumonia, unspecified organism (6) Guaiac + stool Code(s): R19.5 - OTHER FECAL ABNORMALITIES (7) PAF (paroxysmal atrial fibrillation) Code(s): I48.0 - PAROXYSMAL ATRIAL FIBRILLATION
[2017-03-01] MEDS: ATORVASTATIN CA 10 MG TABLET (FP) PO SCH (23:09)
[2017-03-01] MEDS: MIRTAZAPINE 15 MG TABLET (FP) PO SCH (23:09)
[2017-03-02] MEDS ORDERED: PT OWN MED DRAWER 7, Y5N ONE ×4 (00:50→23:30)
[2017-03-02] MEDS: MEROPENEM 500 MG in DEXTROSE 5%-WATER - 100 ML IVPB SCH ×3 (02:09→18:42)
[2017-03-02] MEDS: ALBUTEROL SO4 0.5 % INH SOLN 2.5 MG/0.5 ML VIAL.NEB. NEB SCH ×4 (06:44→23:44)
[2017-03-02] MEDS: ACETYLCYSTEINE 20% 200MG/ML 4 ML VIAL *FOR ORAL / INH USE ONLY IH SCH ×4 (06:44→23:44)
[2017-03-02 07:29] LABS: BASOPHIL 0.4 % (0-2.0); EOSINOPHIL 1.2 % (0-4.5); MCH 25.6 pg (25.7-33.7); MCHC 31.6 g/dl (32.0-36.0); MEAN CELL VOLUME 80.9 fl (80-96); MEAN PLT VOLUME 7.8 fl (7.5-11.1); NEUTROPHILS 80.4 % (42.8-82.8); PLATELET COUNT 285 K/MM3 (134-434); RDW 17.4 % (11.6-15.6); WHITE BLOOD COUNT 12.8 K/mm3 (4.0-10.0)
[2017-03-02 07:41] LABS: BILIRUBIN,TOTAL 0.4 mg/dL (0.2-1.0); CREATININE 0.5 mg/dL (0.55-1.02); SGOT/AST 16 U/L (15-37)
[2017-03-02 07:43] LABS: ALBUMIN 1.6 g/dl (3.4-5.0); ANION GAP 7 (8-16); CALCIUM 7.6 mg/dL (8.5-10.1); CO2 33 mmol/L (21-32); GLUCOSE,RANDOM 81 mg/dL (74-106); SGPT/ALT 24 U/L (12-78)
[2017-03-02 07:50] LABS: ALK PHOS 86 U/L (45-117); THYROID STIMULATING HORMONE 2.92 uIU/ml (0.358-3.74); TOT PROT 5.1 g/dl (6.4-8.2)
--- NOTE | 2017-03-02 11:27 | PN ---
Progress Note, Physician Chief Complaint: UTI,Anemia, Pneumonia History of Present Illness: NAD, in bed, mechanically vented, alert, son at the bedside - Current Medication List Current Medications: Active Medications Acetaminophen (Tylenol -) 650 mg PO Q6H PRN PRN Reason: FEVER OR PAIN Last Admin: 03/01/17 02:14 Dose: 650 mg Acetylcysteine (Mucomyst 20 Oral / Inh Use Only*) 200 mg IH QIDR BREANN Last Admin: 03/02/17 11:09 Dose: 200 mg Albuterol Sulfate (Ventolin 0.5% -) 1 amp NEB QIDR [facility] Last Admin: 03/02/17 11:10 Dose: 1 amp Albuterol/Ipratropium (Duoneb -) 1 amp NEB Q6H PRN PRN Reason: SHORTNESS OF BREATH Apixaban (Eliquis -) 2.5 mg PO BID [facility] Last Admin: 03/01/17 23:09 Dose: 2.5 mg Artificial Tears (Artificial Tears) 1 drop OU BID PRN PRN Reason: DRY EYES Ascorbic Acid (Vitamin C -) 250 mg PO DAILY [facility] Last Admin: 03/01/17 12:04 Dose: 250 mg Atorvastatin Calcium (Lipitor -) 10 mg PO HS [facility] Last Admin: 03/01/17 23:09 Dose: 10 mg Bacitracin (Bacitracin -) 1 applic TP DAILY [facility] Last Admin: 03/01/17 11:59 Dose: 1 applic Ferrous Sulfate (Feosol -) 325 mg PO BID [facility] Last Admin: 03/01/17 23:09 Dose: 325 mg Meropenem 500 mg/ Dextrose 100 mls @ 200 mls/hr IVPB Q8H-IV [facility] Last Admin: 03/02/17 02:09 Dose: 200 mls/hr Lactobacillus Acidophilus (Bacid -) 1 tab PO DAILY [facility] Last Admin: 03/01/17 12:03 Dose: 1 tab Loratadine (Claritin -) 10 mg PO DAILY [facility] Last Admin: 03/01/17 12:03 Dose: 10 mg Mirtazapine (Remeron -) 15 mg PO HS [facility] Last Admin: 03/01/17 23:09 Dose: 15 mg Nystatin (Nystop Powder -) 1 applic TP DAILY [facility] Last Admin: 03/01/17 11:59 Dose: 1 applic Pantoprazole Sodium (Protonix -) 40 mg PO DAILY [facility] Last Admin: 03/01/17 12:02 Dose: 40 mg - Objective Vital Signs: Vital Signs Temperature 97.7 F 03/02/17 06:27 Pulse Rate 82 03/02/17 10:40 Respiratory Rate 14 03/02/17 10:35 Blood Pressure 121/84 03/02/17 06:27 O2 Sat by Pulse Oximetry (%) 96 03/02/17 10:40 Constitutional: Yes: Well Nourished, No Distress, Calm Cardiovascular: Yes: Pulse Irregular Respiratory: Yes: Mechanically Ventilated Gastrointestinal: Yes: Normal Bowel Sounds Breast(s): Yes: WNL Extremities: Yes: WNL Edema: No Peripheral Pulses WNL: Yes Neurological: Yes: Alert, Oriented Psychiatric: Yes: Alert, Oriented Labs: CBC, BMP 03/02/17 06:10 03/02/17 06:10 INR, PTT INR 1.32 (0.82-1.09) H 02/26/17 17:45 Problem List - Problems (1) Anemia Assessment/Plan: -1 unit PRBC on admission -monitor labs -stool OB positive -iron studies low on Iron, -ferrous sulfate BID -Venofer x 1 dose given yesterday -seen by hematology -H/H stable at this time Code(s): D64.9 - ANEMIA, UNSPECIFIED (2) Chronic respiratory failure Assessment/Plan: on mechanical ventilation Code(s): J96.10 - CHRONIC RESPIRATORY FAILURE, UNSP W HYPOXIA OR HYPERCAPNIA Qualifiers: Respiratory failure complication: hypercapnia Qualified Code(s): J96.12 - Chronic respiratory failure with hypercapnia (3) Pneumonia Assessment/Plan: ID and pulmonary consult IV abx Code(s): J18.9 - PNEUMONIA, UNSPECIFIED ORGANISM Qualifiers: Pneumonia type: due to unspecified organism Laterality: left Lung location: lower lobe of lung Qualified Code(s): J18.1 - Lobar pneumonia, unspecified organism (4) UTI (urinary tract infection) Assessment/Plan: UC positive for proteus mirabilus esbl -ID consult -IV abx Code(s): N39.0 - URINARY TRACT INFECTION, SITE NOT SPECIFIED Qualifiers: Urinary tract infection type: site unspecified Hematuria presence: without hematuria Qualified Code(s): N39.0 - Urinary tract infection, site not specified; R31.9 - Hematuria, unspecified (5) Fever Assessment/Plan: -repeat BC pending -tylenol for fever over 100.0F -repeat labs in AM Code(s): R50.9 - FEVER, UNSPECIFIED (6) Functional quadriplegia Code(s): R53.2 - FUNCTIONAL QUADRIPLEGIA (7) Leukocytosis Assessment/Plan: -improving -BC pending -IV abx -ID consult Code(s): D72.829 - ELEVATED WHITE BLOOD CELL COUNT, UNSPECIFIED Assessment/Plan -continue AC as per cardiology as long as H/H is stable -BC pending -febrile this am -tylenol for fever over 100.0F -IV abx -labs in AM
[2017-03-02] MEDS: LORATADINE 10 MG TABLET PO SCH (12:11)
[2017-03-02] MEDS: LACTOBACILLUS ACIDOPHILUS 1 EACH TAB (FP) PO SCH (12:11)
[2017-03-02] MEDS: FERROUS SO4 325 MG TABLET (FP) PO SCH ×2 (12:12→23:31)
[2017-03-02] MEDS: APIXABAN 2.5 MG TABLET PO SCH ×2 (12:17→23:31)
[2017-03-02] MEDS: ASCORBIC ACID 250 MG TABLET (FP) PO SCH (12:17)
[2017-03-02] MEDS: PANTOPRAZOLE 40 MG TABLET (FP) PO SCH (12:49)
[2017-03-02] MEDS ORDERED: SODIUM CHLORIDE 0.9% 1000 ML INFUS.BAG IV ONE (13:38)
--- NOTE | 2017-03-02 14:00 | PN ---
Progress Note, Physician History of Present Illness: PULMONARY ALERT,COMFORTABLE ON VENT SUPPORT AC MODE. CHEST X-RAY NO CHANGE. - Current Medication List Current Medications: Active Medications Acetaminophen (Tylenol -) 650 mg PO Q6H PRN PRN Reason: FEVER OR PAIN Last Admin: 03/01/17 02:14 Dose: 650 mg Acetylcysteine (Mucomyst 20 Oral / Inh Use Only*) 200 mg IH QIDR BREANN Last Admin: 03/02/17 11:09 Dose: 200 mg Albuterol Sulfate (Ventolin 0.5% -) 1 amp NEB QIDR BREANN Last Admin: 03/02/17 11:10 Dose: 1 amp Albuterol/Ipratropium (Duoneb -) 1 amp NEB Q6H PRN PRN Reason: SHORTNESS OF BREATH Apixaban (Eliquis -) 2.5 mg PO BID [facility] Last Admin: 03/02/17 12:17 Dose: 2.5 mg Artificial Tears (Artificial Tears) 1 drop OU BID PRN PRN Reason: DRY EYES Ascorbic Acid (Vitamin C -) 250 mg PO DAILY [facility] Last Admin: 03/02/17 12:17 Dose: 250 mg Atorvastatin Calcium (Lipitor -) 10 mg PO HS [facility] Last Admin: 03/01/17 23:09 Dose: 10 mg Bacitracin (Bacitracin -) 1 applic TP DAILY [facility] Last Admin: 03/01/17 11:59 Dose: 1 applic Ferrous Sulfate (Feosol -) 325 mg PO BID BRE[facility] Last Admin: 03/02/17 12:12 Dose: 325 mg Meropenem 500 mg/ Dextrose 100 mls @ 200 mls/hr IVPB Q8H-IV BREANN Last Admin: 03/02/17 12:00 Dose: 200 mls/hr Lactobacillus Acidophilus (Bacid -) 1 tab PO DAILY BREANN Last Admin: 03/02/17 12:11 Dose: 1 tab Loratadine (Claritin -) 10 mg PO DAILY BREANN Last Admin: 03/02/17 12:11 Dose: 10 mg Mirtazapine (Remeron -) 15 mg PO HS BREANN Last Admin: 03/01/17 23:09 Dose: 15 mg Nystatin (Nystop Powder -) 1 applic TP DAILY BREANN Last Admin: 03/01/17 11:59 Dose: 1 applic Pantoprazole Sodium (Protonix -) 40 mg PO DAILY BREANN Last Admin: 03/02/17 12:49 Dose: 40 mg Sodium Chloride (Normal Saline -) 500 ml IV ONCE ONE Stop: 03/02/17 13:39 - Objective Vital Signs: Vital Signs Temperature 100.3 F H 03/02/17 11:15 Pulse Rate 87 03/02/17 13:29 Respiratory Rate 20 03/02/17 13:29 Blood Pressure 99/44 03/02/17 13:29 O2 Sat by Pulse Oximetry (%) 96 03/02/17 10:40 Constitutional: Yes: Calm, Thin Eyes: Yes: WNL HENT: Yes: WNL Neck: Yes: Supple (TRACH) Cardiovascular: Yes: Pulse Irregular, S1, S2 Respiratory: Yes: Diminished (DIMINISHED BS ON LEFT) Gastrointestinal: Yes: Normal Bowel Sounds, Soft Extremities: Yes: WNL Edema: No Labs: CBC, BMP 03/02/17 06:10 03/02/17 06:10 INR, PTT INR 1.32 (0.82-1.09) H 02/26/17 17:45 Problem List - Problems (1) Anemia Code(s): D64.9 - ANEMIA, UNSPECIFIED (2) COPD (chronic obstructive pulmonary disease) Code(s): J44.9 - CHRONIC OBSTRUCTIVE PULMONARY DISEASE, UNSPECIFIED Qualifiers : COPD type: unspecified COPD Qualified Code(s): J44.9 - Chronic obstructive pulmonary disease, unspecified (3) Chronic respiratory failure Code(s): J96.10 - CHRONIC RESPIRATORY FAILURE, UNSP W HYPOXIA OR HYPERCAPNIA Qualifiers: Respiratory failure complication: hypercapnia Qualified Code(s): J96.12 - Chronic respiratory failure with hypercapnia (4) AICD (automatic cardioverter/defibrillator) present Code(s): Z95.810 - PRESENCE OF AUTOMATIC (IMPLANTABLE) CARDIAC DEFIBRILLATOR (5) Acute and chronic respiratory failure with hypercapnia Code(s): J96.22 - ACUTE AND CHRONIC RESPIRATORY FAILURE WITH HYPERCAPNIA (6) HTN (hypertension) Code(s): I10 - ESSENTIAL (PRIMARY) HYPERTENSION (7) Hyperlipemia Code(s): E78.5 - HYPERLIPIDEMIA, UNSPECIFIED (8) PAF (paroxysmal atrial fibrillation) Code(s): I48.0 - PAROXYSMAL ATRIAL FIBRILLATION (9) Respirator dependence Code(s): Z99.11 - DEPENDENCE ON RESPIRATOR [VENTILATOR] STATUS (10) Atelectasis of left lung Code(s): J98.11 - ATELECTASIS (11) Atelectasis Code(s): J98.11 - ATELECTASIS Assessment/Plan IMP ACUTE ON CHRONIC HYPOXEMIC/HYPERCAPNEIC RESPIRATORY FAILURE LEFT LUNG ATELECTASIS END STAGE COPD AFIB CHF H/O GI BLEED PLAN VENT SUPPORT ON AC MODE INHALED BRONCHODILATORS TRACHEAL SUCTIONING WITH CUDET CATH MUCOMYST F/U CHEST X-RAY AM FLEX BRONCHOSCOPY IF NO IMPROVEMENT RATE CONTROL DR CABRERA
--- NOTE | 2017-03-02 14:37 | PN ---
Progress Note, Physician Chief Complaint: As baseline Appears comfortable History of Present Illness: This is an 82 year old female with a PMH of PAFIB, HLD, CHF, S/P cardiac arrest in 1998, S/P [employer]tr[employer] AICD single lead, COPD, s/p trach and vent dependent. She was admitted from a chronic care facility with R/O pneumonia, UTI, possible GIB. HCT 26.4%. She was taking Xarelto 20 mg daily and now switched to Eliquis 2.5 mg PO BID. - Current Medication List Current Medications: Active Medications Acetaminophen (Tylenol -) 650 mg PO Q6H PRN PRN Reason: FEVER OR PAIN Last Admin: 03/01/17 02:14 Dose: 650 mg Acetylcysteine (Mucomyst 20 Oral / Inh Use Only*) 200 mg IH QIDR [facility] Last Admin: 03/02/17 11:09 Dose: 200 mg Albuterol Sulfate (Ventolin 0.5% -) 1 amp NEB QIDR BREANN Last Admin: 03/02/17 11:10 Dose: 1 amp Albuterol/Ipratropium (Duoneb -) 1 amp NEB Q6H PRN PRN Reason: SHORTNESS OF BREATH Apixaban (Eliquis -) 2.5 mg PO BID [facility] Last Admin: 03/02/17 12:17 Dose: 2.5 mg Artificial Tears (Artificial Tears) 1 drop OU BID PRN PRN Reason: DRY EYES Ascorbic Acid (Vitamin C -) 250 mg PO DAILY [facility] Last Admin: 03/02/17 12:17 Dose: 250 mg Atorvastatin Calcium (Lipitor -) 10 mg PO HS [facility] Last Admin: 03/01/17 23:09 Dose: 10 mg Bacitracin (Bacitracin -) 1 applic TP DAILY [facility] Last Admin: 03/01/17 11:59 Dose: 1 applic Ferrous Sulfate (Feosol -) 325 mg PO BID [facility] Last Admin: 03/02/17 12:12 Dose: 325 mg Meropenem 500 mg/ Dextrose 100 mls @ 200 mls/hr IVPB Q8H-IV [facility]ANN Last Admin: 03/02/17 12:00 Dose: 200 mls/hr Lactobacillus Acidophilus (Bacid -) 1 tab PO DAILY [facility] Last Admin: 03/02/17 12:11 Dose: 1 tab Loratadine (Claritin -) 10 mg PO DAILY [facility] Last Admin: 03/02/17 12:11 Dose: 10 mg Mirtazapine (Remeron -) 15 mg PO HS [facility] Last Admin: 03/01/17 23:09 Dose: 15 mg Nystatin (Nystop Powder -) 1 applic TP DAILY [facility] Last Admin: 03/01/17 11:59 Dose: 1 applic Pantoprazole Sodium (Protonix -) 40 mg PO DAILY [facility] Last Admin: 03/02/17 12:49 Dose: 40 mg Sodium Chloride (Normal Saline -) 500 ml IV ONCE ONE Stop: 03/02/17 13:39 - Objective Vital Signs: Vital Signs Temperature 100.3 F H 03/02/17 11:15 Pulse Rate 87 03/02/17 13:29 Respiratory Rate 20 03/02/17 13:29 Blood Pressure 99/44 03/02/17 13:29 O2 Sat by Pulse Oximetry (%) 96 03/02/17 10:40 Constitutional: Yes: No Distress Neck: Yes: Other (Trach) Cardiovascular: Yes: Pulse Irregular, S1, S2 (No MRHG) Respiratory: Yes: Intubated (Course vent sounds bilaterally) Gastrointestinal: Yes: Soft Edema: No Neurological: Yes: Alert, Oriented (Non focal) Psychiatric: Yes: WNL Labs: CBC, BMP 03/02/17 06:10 03/02/17 06:10 INR, PTT INR 1.32 (0.82-1.09) H 02/26/17 17:45 Assessment/Plan Paroxsymal Atrial Fibrillation Presently in an ectopic rhythm Agree with Eliquis 2.5 mg PO BID which has a lower risk of GI bleeding compared with Xarelto 20 mg daily Follow HCT and would hold Eliquis if HCT drifts down Will follow with you
[2017-03-02] MEDS: SODIUM CHLORIDE 500 ML IV ONE ×2 (15:00→16:00)
[2017-03-02] MEDS: BACITRACIN 15 GM TUBE TOPICAL OINTMENT TP SCH (15:00)
[2017-03-02] MEDS: NYSTATIN POWDER 100,000 UNITS/GM - 15 GM TOPICAL POWDER TP SCH (15:00)
--- NOTE | 2017-03-02 15:27 | PN ---
Progress Note, Physician History of Present Illness: Awake, alert No acute distress Low grade fever WBC improved Sputum c/s mixed CXR opacification L hemithorax - Current Medication List Current Medications: Active Medications Acetaminophen (Tylenol -) 650 mg PO Q6H PRN PRN Reason: FEVER OR PAIN Last Admin: 03/01/17 02:14 Dose: 650 mg Acetylcysteine (Mucomyst 20 Oral / Inh Use Only*) 200 mg IH QIDR BREANN Last Admin: 03/02/17 11:09 Dose: 200 mg Albuterol Sulfate (Ventolin 0.5% -) 1 amp NEB QIDR BREANN Last Admin: 03/02/17 11:10 Dose: 1 amp Albuterol/Ipratropium (Duoneb -) 1 amp NEB Q6H PRN PRN Reason: SHORTNESS OF BREATH Apixaban (Eliquis -) 2.5 mg PO BID [facility] Last Admin: 03/02/17 12:17 Dose: 2.5 mg Artificial Tears (Artificial Tears) 1 drop OU BID PRN PRN Reason: DRY EYES Ascorbic Acid (Vitamin C -) 250 mg PO DAILY [facility] Last Admin: 03/02/17 12:17 Dose: 250 mg Atorvastatin Calcium (Lipitor -) 10 mg PO HS [facility] Last Admin: 03/01/17 23:09 Dose: 10 mg Bacitracin (Bacitracin -) 1 applic TP DAILY [facility] Last Admin: 03/01/17 11:59 Dose: 1 applic Ferrous Sulfate (Feosol -) 325 mg PO BID [facility] Last Admin: 03/02/17 12:12 Dose: 325 mg Meropenem 500 mg/ Dextrose 100 mls @ 200 mls/hr IVPB Q8H-IV [facility] Last Admin: 03/02/17 12:00 Dose: 200 mls/hr Lactobacillus Acidophilus (Bacid -) 1 tab PO DAILY [facility] Last Admin: 03/02/17 12:11 Dose: 1 tab Loratadine (Claritin -) 10 mg PO DAILY [facility] Last Admin: 03/02/17 12:11 Dose: 10 mg Mirtazapine (Remeron -) 15 mg PO HS [facility] Last Admin: 03/01/17 23:09 Dose: 15 mg Nystatin (Nystop Powder -) 1 applic TP DAILY [facility] Last Admin: 03/01/17 11:59 Dose: 1 applic Pantoprazole Sodium (Protonix -) 40 mg PO DAILY [facility] Last Admin: 03/02/17 12:49 Dose: 40 mg - Objective Vital Signs: Vital Signs Temperature 98.6 F 03/02/17 15:02 Pulse Rate 88 03/02/17 15:02 Respiratory Rate 15 03/02/17 15:02 Blood Pressure 103/58 03/02/17 15:02 O2 Sat by Pulse Oximetry (%) 96 03/02/17 10:40 Constitutional: Yes: No Distress Cardiovascular: Yes: Regular Rate and Rhythm, S1, S2 Respiratory: Yes: Rhonchi, Other (decreased BS L) Gastrointestinal: Yes: Normal Bowel Sounds, Soft. No: Tenderness Labs: CBC, BMP 03/02/17 06:10 03/02/17 06:10 INR, PTT INR 1.32 (0.82-1.09) H 02/26/17 17:45 Assessment/Plan Fever- Lung v. source Pneumonia/atelectasis Respiratory failure UTI ESBL Continue meropenem Contact precautions
[2017-03-02] MEDS: ATORVASTATIN CA 10 MG TABLET (FP) PO SCH (23:31)
[2017-03-02] MEDS: MIRTAZAPINE 15 MG TABLET (FP) PO SCH (23:32)
[2017-03-03] MEDS ORDERED: PT OWN MED DRAWER 7, Y5N ONE ×3 (01:54→17:50)
[2017-03-03] MEDS: MEROPENEM 500 MG in DEXTROSE 5%-WATER - 100 ML IVPB SCH ×3 (02:55→17:55)
[2017-03-03] MEDS: ACETAMINOPHEN 325 MG TABLET (FP) PO PRN (06:10)
[2017-03-03] MEDS: ACETYLCYSTEINE 20% 200MG/ML 4 ML VIAL *FOR ORAL / INH USE ONLY IH SCH ×3 (06:56→18:17)
[2017-03-03] MEDS: ALBUTEROL SO4 0.5 % INH SOLN 2.5 MG/0.5 ML VIAL.NEB. NEB SCH ×3 (06:56→18:17)
[2017-03-03 07:27] LABS: BASOPHIL 0.8 % (0-2.0); EOSINOPHIL 2.1 % (0-4.5); MEAN CELL VOLUME 81.1 fl (80-96); NEUTROPHILS 78.9 % (42.8-82.8); PLATELET COUNT 288 K/MM3 (134-434); RDW 16.9 % (11.6-15.6)
[2017-03-03 07:50] LABS: ALBUMIN 1.6 g/dl (3.4-5.0); ANION GAP 6 (8-16); CALCIUM 7.7 mg/dL (8.5-10.1); CO2 32 mmol/L (21-32); GLUCOSE,RANDOM 81 mg/dL (74-106)
[2017-03-03 07:55] LABS: ALK PHOS 81 U/L (45-117); BILIRUBIN,TOTAL 0.4 mg/dL (0.2-1.0); CREATININE 0.5 mg/dL (0.55-1.02); SGOT/AST 15 U/L (15-37); SGPT/ALT 21 U/L (12-78); TOT PROT 5.2 g/dl (6.4-8.2)
[2017-03-03] MEDS: LACTOBACILLUS ACIDOPHILUS 1 EACH TAB (FP) PO SCH (09:48)
[2017-03-03] MEDS: PANTOPRAZOLE 40 MG TABLET (FP) PO SCH (09:48)
[2017-03-03] MEDS: APIXABAN 2.5 MG TABLET PO SCH ×2 (09:49→22:57)
[2017-03-03] MEDS: FERROUS SO4 325 MG TABLET (FP) PO SCH ×2 (09:49→22:57)
[2017-03-03] MEDS: ASCORBIC ACID 250 MG TABLET (FP) PO SCH (09:49)
[2017-03-03] MEDS ORDERED: ALBUTEROL SO4 2.5/IPRATROPIUM 0.5 INH SOL 3 ML VIAL.NEB. NEB SCH (10:00)
--- NOTE | 2017-03-03 10:02 | PN ---
Progress Note, Physician - Current Medication List Current Medications: Active Medications Acetaminophen (Tylenol -) 650 mg PO Q6H PRN PRN Reason: FEVER OR PAIN Last Admin: 03/03/17 06:10 Dose: 650 mg Acetylcysteine (Mucomyst 20 Oral / Inh Use Only*) 200 mg IH QIDR [facility] Last Admin: 03/03/17 06:56 Dose: 200 mg Albuterol Sulfate (Ventolin 0.5% -) 1 amp NEB QIDR [facility] Last Admin: 03/03/17 06:56 Dose: 1 amp Albuterol/Ipratropium (Duoneb -) 1 amp NEB Q6H [facility] Apixaban (Eliquis -) 2.5 mg PO BID [facility] Last Admin: 03/03/17 09:49 Dose: 2.5 mg Artificial Tears (Artificial Tears) 1 drop OU BID PRN PRN Reason: DRY EYES Ascorbic Acid (Vitamin C -) 250 mg PO DAILY [facility] Last Admin: 03/03/17 09:49 Dose: 250 mg Atorvastatin Calcium (Lipitor -) 10 mg PO HS [facility] Last Admin: 03/02/17 23:31 Dose: 10 mg Bacitracin (Bacitracin -) 1 applic TP DAILY [facility] Last Admin: 03/02/17 15:00 Dose: Not Given Ferrous Sulfate (Feosol -) 325 mg PO BID [facility] Last Admin: 03/03/17 09:49 Dose: 325 mg Meropenem 500 mg/ Dextrose 100 mls @ 200 mls/hr IVPB Q8H-IV [facility] Last Admin: 03/03/17 09:49 Dose: 200 mls/hr Lactobacillus Acidophilus (Bacid -) 1 tab PO DAILY [facility] Last Admin: 03/03/17 09:48 Dose: 1 tab Loratadine (Claritin -) 10 mg PO DAILY [facility] Last Admin: 03/02/17 12:11 Dose: 10 mg Mirtazapine (Remeron -) 15 mg PO HS [facility] Last Admin: 03/02/17 23:32 Dose: 15 mg Nystatin (Nystop Powder -) 1 applic TP DAILY [facility] Last Admin: 03/02/17 15:00 Dose: 1 applic Pantoprazole Sodium (Protonix -) 40 mg PO DAILY [facility] Last Admin: 03/03/17 09:48 Dose: 40 mg - Objective Vital Signs: Vital Signs Temperature 100.8 F H 03/03/17 06:00 Pulse Rate 81 03/03/17 06:00 Respiratory Rate 16 03/03/17 06:55 Blood Pressure 103/60 03/03/17 06:00 O2 Sat by Pulse Oximetry (%) 97 03/02/17 21:00 Labs: CBC, BMP 03/03/17 06:15 03/03/17 06:15 INR, PTT INR 1.32 (0.82-1.09) H 02/26/17 17:45 Assessment/Plan - Problems (1) Anemia Assessment/Plan: -1 unit PRBC on admission -monitor labs Laboratory Tests 02/27/17 03/02/17 03/03/17 06:30 06:10 06:15 Hgb 7.9 L D 8.5 L 8.3 L -stool OB positive -iron studies low on Iron, -ferrous sulfate BID -Venofer x 1 dose given -seen by hematology -H/H stable at this time Code(s): D64.9 - ANEMIA, UNSPECIFIED (2) Chronic respiratory failure Assessment/Plan: on mechanical ventilation Code(s): J96.10 - CHRONIC RESPIRATORY FAILURE, UNSP W HYPOXIA OR HYPERCAPNIA Qualifiers: Respiratory failure complication: hypercapnia Qualified Code(s): J96.12 - Chronic respiratory failure with hypercapnia (3) Pneumonia Assessment/Plan: ID and pulmonary consult IV abx Code(s): J18.9 - PNEUMONIA, UNSPECIFIED ORGANISM Qualifiers: Pneumonia type: due to unspecified organism Laterality: left Lung location: lower lobe of lung Qualified Code(s): J18.1 - Lobar pneumonia, unspecified organism (4) UTI (urinary tract infection) Assessment/Plan: UC positive for proteus mirabilus esbl -ID consult -IV abx Code(s): N39.0 - URINARY TRACT INFECTION, SITE NOT SPECIFIED Qualifiers: Urinary tract infection type: site unspecified Hematuria presence: without hematuria Qualified Code(s): N39.0 - Urinary tract infection, site not specified; R31.9 - Hematuria, unspecified (5) Fever Assessment/Plan: -repeat BC pending -tylenol for fever over 100.0F -repeat labs in AM Code(s): R50.9 - FEVER, UNSPECIFIED (6) Functional quadriplegia Code(s): R53.2 - FUNCTIONAL QUADRIPLEGIA (7) Leukocytosis Assessment/Plan: -improving -BC pending -IV abx -ID consult Code(s): D72.829 - ELEVATED WHITE BLOOD CELL COUNT, UNSPECIFIED Assessment/Plan -continue AC as per cardiology as long as H/H is stable -BC pending -febrile this am -tylenol for fever over 100.0F -IV abx -labs in AM
[2017-03-03] MEDS: NYSTATIN POWDER 100,000 UNITS/GM - 15 GM TOPICAL POWDER TP SCH (10:48)
[2017-03-03] MEDS: SODIUM CHLORIDE 0.45%/POT 1,000 ML IV SCH (10:48)
[2017-03-03] MEDS: LORATADINE 10 MG TABLET PO SCH (11:22)
[2017-03-03] MEDS: BACITRACIN 15 GM TUBE TOPICAL OINTMENT TP SCH (11:23)
--- NOTE | 2017-03-03 13:22 | PN ---
Progress Note (short form) - Note Progress Note: Awake and alert. AC mode of vent. CXR yesterday : left atelectasis Intake & Output 02/28/17 03/01/17 03/02/17 03/03/17 23:59 23:59 23:59 23:59 Intake Total 433 106 3038 100 Output Total 400 Balance 994 926 2563 100 Weight 102 lb 6 oz Last Vital Signs Temp Pulse Resp BP Pulse Ox 100.8 F H 74 16 94/34 93 L 03/03/17 06:00 03/03/17 11:09 03/03/17 10:30 03/03/17 10:00 03/03/17 11:09 Active Medications Acetaminophen (Tylenol -) 650 mg PO Q6H PRN PRN Reason: FEVER OR PAIN Last Admin: 03/03/17 06:10 Dose: 650 mg Acetylcysteine (Mucomyst 20 Oral / Inh Use Only*) 200 mg IH QIDR [facility] Last Admin: 03/03/17 11:16 Dose: 200 mg Albuterol Sulfate (Ventolin 0.5% -) 1 amp NEB QIDR [facility] Last Admin: 03/03/17 11:17 Dose: 1 amp Albuterol/Ipratropium (Duoneb -) 1 amp NEB Q6H [facility] Apixaban (Eliquis -) 2.5 mg PO BID [facility] Last Admin: 03/03/17 09:49 Dose: 2.5 mg Artificial Tears (Artificial Tears) 1 drop OU BID PRN PRN Reason: DRY EYES Ascorbic Acid (Vitamin C -) 250 mg PO DAILY [facility] Last Admin: 03/03/17 09:49 Dose: 250 mg Atorvastatin Calcium (Lipitor -) 10 mg PO HS [facility] Last Admin: 03/02/17 23:31 Dose: 10 mg Bacitracin (Bacitracin -) 1 applic TP DAILY [facility] Last Admin: 03/03/17 11:23 Dose: Not Given Ferrous Sulfate (Feosol -) 325 mg PO BID [facility] Last Admin: 03/03/17 09:49 Dose: 325 mg Meropenem 500 mg/ Dextrose 100 mls @ 200 mls/hr IVPB Q8H-IV [facility] Last Admin: 03/03/17 09:49 Dose: 200 mls/hr Potassium Chloride/Sodium Chloride (1/2ns+20meq Kcl) 1,000 mls @ 75 mls/hr IV ASDIR [facility] Last Admin: 03/03/17 10:48 Dose: 75 mls/hr Lactobacillus Acidophilus (Bacid -) 1 tab PO DAILY [facility] Last Admin: 03/03/17 09:48 Dose: 1 tab Loratadine (Claritin -) 10 mg PO DAILY [facility] Last Admin: 03/03/17 11:22 Dose: 10 mg Mirtazapine (Remeron -) 15 mg PO HS [facility] Last Admin: 03/02/17 23:32 Dose: 15 mg Nystatin (Nystop Powder -) 1 applic TP DAILY [facility] Last Admin: 03/03/17 10:48 Dose: 1 applic Pantoprazole Sodium (Protonix -) 40 mg PO DAILY [facility] Last Admin: 03/03/17 09:48 Dose: 40 mg Constitutional: Yes: Awake, vented Eyes: Yes: WNL HENT: Yes: WNL Neck: Yes: Supple (TRACH) Cardiovascular: Yes: Pulse Irregular, S1, S2 Respiratory: Yes: Diminished (DIMINISHED BS ON LEFT) Gastrointestinal: Yes: Normal Bowel Sounds, Soft Extremities: Yes: WNL Edema: No Labs: Laboratory Results - last 24 hr 03/02/17 03/03/17 03/03/17 13:54 06:15 06:15 WBC 10.0 RBC 3.18 L Hgb 8.3 L Hct 25.8 L MCV 81.1 MCH 26.0 MCHC 32.0 RDW 16.9 H Plt Count 288 MPV 8.0 Neutrophils % 78.9 Lymphocytes % 10.7 Monocytes % 7.5 Eosinophils % 2.1 Basophils % 0.8 Sodium 139 Potassium 3.7 Chloride 101 Carbon Dioxide 32 Anion Gap 6 L BUN 13 Creatinine 0.5 L Creat Clearance w eGFR > 60 Random Glucose 81 Lactic Acid 1.2 Calcium 7.7 L Total Bilirubin 0.4 AST 15 ALT 21 Alkaline Phosphatase 81 Total Protein 5.2 L Albumin 1.6 L Blood Type Antibody Screen Crossmatch 03/03/17 10:15 WBC RBC Hgb Hct MCV MCH MCHC RDW Plt Count MPV Neutrophils % Lymphocytes % Monocytes % Eosinophils % Basophils % Sodium Potassium Chloride Carbon Dioxide Anion Gap BUN Creatinine Creat Clearance w eGFR Random Glucose Lactic Acid Calcium Total Bilirubin AST ALT Alkaline Phosphatase Total Protein Albumin Blood Type A POSITIVE Antibody Screen Negative Crossmatch See Detail Problem List - Problems (1) Anemia Code(s): D64.9 - ANEMIA, UNSPECIFIED (2) COPD (chronic obstructive pulmonary disease) Code(s): J44.9 - CHRONIC OBSTRUCTIVE PULMONARY DISEASE, UNSPECIFIED Qualifiers : COPD type: unspecified COPD Qualified Code(s): J44.9 - Chronic obstructive pulmonary disease, unspecified (3) Chronic respiratory failure Code(s): J96.10 - CHRONIC RESPIRATORY FAILURE, UNSP W HYPOXIA OR HYPERCAPNIA Qualifiers: Respiratory failure complication: hypercapnia Qualified Code(s): J96.12 - Chronic respiratory failure with hypercapnia (4) AICD (automatic cardioverter/defibrillator) present Code(s): Z95.810 - PRESENCE OF AUTOMATIC (IMPLANTABLE) CARDIAC DEFIBRILLATOR (5) Acute and chronic respiratory failure with hypercapnia Code(s): J96.22 - ACUTE AND CHRONIC RESPIRATORY FAILURE WITH HYPERCAPNIA (6) HTN (hypertension) Code(s): I10 - ESSENTIAL (PRIMARY) HYPERTENSION (7) Hyperlipemia Code(s): E78.5 - HYPERLIPIDEMIA, UNSPECIFIED (8) PAF (paroxysmal atrial fibrillation) Code(s): I48.0 - PAROXYSMAL ATRIAL FIBRILLATION (9) Respirator dependence Code(s): Z99.11 - DEPENDENCE ON RESPIRATOR [VENTILATOR] STATUS (10) Atelectasis of left lung Code(s): J98.11 - ATELECTASIS (11) Atelectasis Code(s): J98.11 - ATELECTASIS Assessment/Plan IMP ACUTE ON CHRONIC HYPOXEMIC/HYPERCAPNEIC RESPIRATORY FAILURE LEFT LUNG ATELECTASIS END STAGE COPD AFIB CHF H/O GI BLEED PLAN VENT SUPPORT ON AC MODE INHALED BRONCHODILATORS TRACHEAL SUCTIONING WITH CUDET CATH MUCOMYST F/U CHEST X-RAY AM POSSIBLE FLEX BRONCHOSCOPY SUNDAY IF NO IMPROVEMENT RATE CONTROL DR LANDON
--- NOTE | 2017-03-03 14:46 | PN ---
Progress Note, Physician History of Present Illness: Awake, lethargic Intermittant low grade temps WBC improved - Current Medication List Current Medications: Active Medications Acetaminophen (Tylenol -) 650 mg PO Q6H PRN PRN Reason: FEVER OR PAIN Last Admin: 03/03/17 06:10 Dose: 650 mg Acetylcysteine (Mucomyst 20 Oral / Inh Use Only*) 200 mg IH QIDR [facility] Last Admin: 03/03/17 11:16 Dose: 200 mg Albuterol Sulfate (Ventolin 0.5% -) 1 amp NEB QIDR [facility] Last Admin: 03/03/17 11:17 Dose: 1 amp Albuterol Sulfate (Ventolin 0.083% Nebulizer Soln -) 1 amp NEB Q4H PRN PRN Reason: SHORT OF BREATH/WHEEZING Apixaban (Eliquis -) 2.5 mg PO BID [facility] Last Admin: 03/03/17 09:49 Dose: 2.5 mg Artificial Tears (Artificial Tears) 1 drop OU BID PRN PRN Reason: DRY EYES Ascorbic Acid (Vitamin C -) 250 mg PO DAILY [facility] Last Admin: 03/03/17 09:49 Dose: 250 mg Atorvastatin Calcium (Lipitor -) 10 mg PO HS [facility] Last Admin: 03/02/17 23:31 Dose: 10 mg Bacitracin (Bacitracin -) 1 applic TP DAILY [facility] Last Admin: 03/03/17 11:23 Dose: Not Given Ferrous Sulfate (Feosol -) 325 mg PO BID [facility] Last Admin: 03/03/17 09:49 Dose: 325 mg Meropenem 500 mg/ Dextrose 100 mls @ 200 mls/hr IVPB Q8H-IV [facility] Last Admin: 03/03/17 09:49 Dose: 200 mls/hr Potassium Chloride/Sodium Chloride (1/2ns+20meq Kcl) 1,000 mls @ 75 mls/hr IV ASDIR [facility] Last Admin: 03/03/17 10:48 Dose: 75 mls/hr Lactobacillus Acidophilus (Bacid -) 1 tab PO DAILY [facility] Last Admin: 03/03/17 09:48 Dose: 1 tab Loratadine (Claritin -) 10 mg PO DAILY [facility] Last Admin: 03/03/17 11:22 Dose: 10 mg Mirtazapine (Remeron -) 15 mg PO HS [facility] Last Admin: 03/02/17 23:32 Dose: 15 mg Nystatin (Nystop Powder -) 1 applic TP DAILY [facility] Last Admin: 03/03/17 10:48 Dose: 1 applic Pantoprazole Sodium (Protonix -) 40 mg PO DAILY [facility] Last Admin: 03/03/17 09:48 Dose: 40 mg - Objective Vital Signs: Vital Signs Temperature 100.8 F H 03/03/17 06:00 Pulse Rate 74 03/03/17 11:09 Respiratory Rate 14 03/03/17 14:18 Blood Pressure 94/34 03/03/17 10:00 O2 Sat by Pulse Oximetry (%) 93 L 03/03/17 14:17 Constitutional: Yes: No Distress Cardiovascular: Yes: Regular Rate and Rhythm, S1, S2 Respiratory: Yes: Mechanically Ventilated Gastrointestinal: Yes: Normal Bowel Sounds, Soft. No: Tenderness Edema: No Labs: CBC, BMP 03/03/17 06:15 03/03/17 06:15 INR, PTT INR 1.32 (0.82-1.09) H 02/26/17 17:45 Assessment/Plan Fever- Lung v. source Pneumonia/atelectasis Respiratory failure UTI ESBL Continue meropenem Contact precautions
[2017-03-03] MEDS: MIRTAZAPINE 15 MG TABLET (FP) PO SCH (22:57)
[2017-03-03] MEDS: ATORVASTATIN CA 10 MG TABLET (FP) PO SCH (22:57)
[2017-03-04] MEDS: ACETYLCYSTEINE 20% 200MG/ML 4 ML VIAL *FOR ORAL / INH USE ONLY IH SCH ×5 (00:25→23:22)
[2017-03-04] MEDS: ALBUTEROL SO4 0.5 % INH SOLN 2.5 MG/0.5 ML VIAL.NEB. NEB SCH ×5 (00:26→23:22)
[2017-03-04] MEDS ORDERED: PT OWN MED DRAWER 7, Y5N ONE ×2 (01:01→09:03)
[2017-03-04] MEDS: MEROPENEM 500 MG in DEXTROSE 5%-WATER - 100 ML IVPB SCH ×3 (01:23→18:05)
[2017-03-04 07:37] LABS: BASOPHIL 0.8 % (0-2.0); EOSINOPHIL 1.4 % (0-4.5); MCH 25.8 pg (25.7-33.7); MCHC 32.5 g/dl (32.0-36.0); MEAN CELL VOLUME 79.4 fl (80-96); MEAN PLT VOLUME 8.1 fl (7.5-11.1); NEUTROPHILS 78.8 % (42.8-82.8); PLATELET COUNT 285 K/MM3 (134-434); RDW 17.2 % (11.6-15.6); WHITE BLOOD COUNT 9.9 K/mm3 (4.0-10.0)
[2017-03-04] MEDS: SODIUM CHLORIDE 0.45%/POT 1,000 ML IV SCH ×2 (07:51→10:00)
[2017-03-04 07:58] LABS: ALBUMIN 1.7 g/dl (3.4-5.0); ALK PHOS 93 U/L (45-117); ANION GAP 8 (8-16); BILIRUBIN,TOTAL 1.1 mg/dL (0.2-1.0); CALCIUM 7.9 mg/dL (8.5-10.1); CO2 29 mmol/L (21-32); CREATININE 0.3 mg/dL (0.55-1.02); GLUCOSE,RANDOM 78 mg/dL (74-106); SGOT/AST 14 U/L (15-37); SGPT/ALT 20 U/L (12-78); TOT PROT 5.4 g/dl (6.4-8.2)
[2017-03-04] MEDS: LACTOBACILLUS ACIDOPHILUS 1 EACH TAB (FP) PO SCH (09:06)
[2017-03-04] MEDS: LORATADINE 10 MG TABLET PO SCH (09:06)
[2017-03-04] MEDS: PANTOPRAZOLE 40 MG TABLET (FP) PO SCH (09:06)
[2017-03-04] MEDS: APIXABAN 2.5 MG TABLET PO SCH ×2 (09:06→23:13)
[2017-03-04] MEDS: FERROUS SO4 325 MG TABLET (FP) PO SCH ×2 (09:06→23:14)
[2017-03-04] MEDS: ASCORBIC ACID 250 MG TABLET (FP) PO SCH (09:06)
[2017-03-04] MEDS: NYSTATIN POWDER 100,000 UNITS/GM - 15 GM TOPICAL POWDER TP SCH (09:07)
--- NOTE | 2017-03-04 10:22 | PN ---
Progress Note, Physician - Current Medication List Current Medications: Active Medications Acetaminophen (Tylenol -) 650 mg PO Q6H PRN PRN Reason: FEVER OR PAIN Last Admin: 03/03/17 06:10 Dose: 650 mg Acetylcysteine (Mucomyst 20 Oral / Inh Use Only*) 200 mg IH QIDR [facility] Last Admin: 03/04/17 06:55 Dose: 200 mg Albuterol Sulfate (Ventolin 0.5% -) 1 amp NEB QIDR [facility] Last Admin: 03/04/17 06:55 Dose: 1 amp Albuterol Sulfate (Ventolin 0.083% Nebulizer Soln -) 1 amp NEB Q4H PRN PRN Reason: SHORT OF BREATH/WHEEZING Apixaban (Eliquis -) 2.5 mg PO BID [facility] Last Admin: 03/04/17 09:06 Dose: 2.5 mg Artificial Tears (Artificial Tears) 1 drop OU BID PRN PRN Reason: DRY EYES Ascorbic Acid (Vitamin C -) 250 mg PO DAILY [facility] Last Admin: 03/04/17 09:06 Dose: 250 mg Atorvastatin Calcium (Lipitor -) 10 mg PO HS [facility] Last Admin: 03/03/17 22:57 Dose: 10 mg Bacitracin (Bacitracin -) 1 applic TP DAILY [facility] Last Admin: 03/03/17 11:23 Dose: Not Given Ferrous Sulfate (Feosol -) 325 mg PO BID [facility] Last Admin: 03/04/17 09:06 Dose: 325 mg Meropenem 500 mg/ Dextrose 100 mls @ 200 mls/hr IVPB Q8H-IV [facility] Last Admin: 03/04/17 09:06 Dose: 200 mls/hr Potassium Chloride/Sodium Chloride (1/2ns+20meq Kcl) 1,000 mls @ 75 mls/hr IV ASDIR [facility] Last Admin: 03/04/17 07:51 Dose: 75 mls/hr Lactobacillus Acidophilus (Bacid -) 1 tab PO DAILY [facility] Last Admin: 03/04/17 09:06 Dose: 1 tab Loratadine (Claritin -) 10 mg PO DAILY [facility] Last Admin: 03/04/17 09:06 Dose: 10 mg Mirtazapine (Remeron -) 15 mg PO HS [facility] Last Admin: 03/03/17 22:57 Dose: 15 mg Nystatin (Nystop Powder -) 1 applic TP DAILY [facility] Last Admin: 08/13/17 09:07 Dose: 1 applic Pantoprazole Sodium (Protonix -) 40 mg PO DAILY [facility] Last Admin: 03/04/17 09:06 Dose: 40 mg - Objective Vital Signs: Vital Signs Temperature 98.2 F 03/04/17 06:00 Pulse Rate 75 03/04/17 06:00 Respiratory Rate 15 03/04/17 06:25 Blood Pressure 146/50 03/04/17 06:00 O2 Sat by Pulse Oximetry (%) 93 L 03/03/17 21:00 Cardiovascular: Yes: S1, S2 Respiratory: Yes: Mechanically Ventilated, Rhonchi Gastrointestinal: Yes: Normal Bowel Sounds, Soft Labs: CBC, BMP 03/04/17 06:20 03/04/17 06:20 INR, PTT INR 1.32 (0.82-1.09) H 02/26/17 17:45 Assessment/Plan - Problems (1) Anemia Assessment/Plan: -S/P PRBC -monitor labs Laboratory Tests 02/28/17 03/02/17 03/03/17 07:36 06:10 06:15 Hgb 8.4 L 8.5 L 8.3 L 03/04/17 06:20 Hgb 10.1 L D -stool OB positive -iron studies low on Iron, -ferrous sulfate BID -Venofer x 1 dose given -seen by hematology Code(s): D64.9 - ANEMIA, UNSPECIFIED (2) Chronic respiratory failure Assessment/Plan: on mechanical ventilation Code(s): J96.10 - CHRONIC RESPIRATORY FAILURE, UNSP W HYPOXIA OR HYPERCAPNIA Qualifiers: Respiratory failure complication: hypercapnia Qualified Code(s): J96.12 - Chronic respiratory failure with hypercapnia (3) Pneumonia Assessment/Plan: ID and pulmonary consult IV abx Code(s): J18.9 - PNEUMONIA, UNSPECIFIED ORGANISM Qualifiers: Pneumonia type: due to unspecified organism Laterality: left Lung location: lower lobe of lung Qualified Code(s): J18.1 - Lobar pneumonia, unspecified organism (4) UTI (urinary tract infection) Assessment/Plan: UC positive for proteus mirabilus esbl -ID consult -IV abx Code(s): N39.0 - URINARY TRACT INFECTION, SITE NOT SPECIFIED Qualifiers: Urinary tract infection type: site unspecified Hematuria presence: without hematuria Qualified Code(s): N39.0 - Urinary tract infection, site not specified; R31.9 - Hematuria, unspecified (5) Fever Assessment/Plan: -repeat BC pending -tylenol for fever over 100.0F -repeat labs in AM Code(s): R50.9 - FEVER, UNSPECIFIED (6) Functional quadriplegia Code(s): R53.2 - FUNCTIONAL QUADRIPLEGIA (7) Leukocytosis Assessment/Plan: -improving -BC pending -IV abx -ID consult Code(s): D72.829 - ELEVATED WHITE BLOOD CELL COUNT, UNSPECIFIED Assessment/Plan -continue AC as per cardiology as long as H/H is stable -BC pending -febrile this am -tylenol for fever over 100.0F -IV abx -labs in AM
--- NOTE | 2017-03-04 13:54 | PN ---
Progress Note (short form) - Note Progress Note: Awake and alert. AC mode of vent. CXR : Left atelectasis -> no gross change Intake & Output 03/01/17 03/02/17 03/03/17 03/04/17 23:59 23:59 23:59 23:59 Intake Total 360 1800 1100 100 Balance 360 1800 1100 100 Weight 102 lb 6 oz Last Vital Signs Temp Pulse Resp BP Pulse Ox 98.2 F 78 20 96/56 95 03/04/17 06:00 03/04/17 10:35 03/04/17 10:35 03/04/17 10:00 03/04/17 11:19 Active Medications Acetaminophen (Tylenol -) 650 mg PO Q6H PRN PRN Reason: FEVER OR PAIN Last Admin: 03/03/17 06:10 Dose: 650 mg Acetylcysteine (Mucomyst 20 Oral / Inh Use Only*) 200 mg IH QIDR [facility] Last Admin: 03/04/17 11:20 Dose: 200 mg Albuterol Sulfate (Ventolin 0.5% -) 1 amp NEB QIDR [facility] Last Admin: 03/04/17 11:20 Dose: 1 amp Albuterol Sulfate (Ventolin 0.083% Nebulizer Soln -) 1 amp NEB Q4H PRN PRN Reason: SHORT OF BREATH/WHEEZING Apixaban (Eliquis -) 2.5 mg PO BID [facility] Last Admin: 03/04/17 09:06 Dose: 2.5 mg Artificial Tears (Artificial Tears) 1 drop OU BID PRN PRN Reason: DRY EYES Ascorbic Acid (Vitamin C -) 250 mg PO DAILY [facility] Last Admin: 03/04/17 09:06 Dose: 250 mg Atorvastatin Calcium (Lipitor -) 10 mg PO HS [facility] Last Admin: 03/03/17 22:57 Dose: 10 mg Bacitracin (Bacitracin -) 1 applic TP DAILY [facility] Last Admin: 03/03/17 11:23 Dose: Not Given Ferrous Sulfate (Feosol -) 325 mg PO BID [facility] Last Admin: 03/04/17 09:06 Dose: 325 mg Meropenem 500 mg/ Dextrose 100 mls @ 200 mls/hr IVPB Q8H-IV [facility] Last Admin: 03/04/17 09:06 Dose: 200 mls/hr Potassium Chloride/Sodium Chloride (1/2ns+20meq Kcl) 1,000 mls @ 75 mls/hr IV ASDIR [facility] Last Admin: 03/04/17 07:51 Dose: 75 mls/hr Lactobacillus Acidophilus (Bacid -) 1 tab PO DAILY [facility] Last Admin: 03/04/17 09:06 Dose: 1 tab Loratadine (Claritin -) 10 mg PO DAILY [facility] Last Admin: 03/04/17 09:06 Dose: 10 mg Mirtazapine (Remeron -) 15 mg PO HS [facility] Last Admin: 03/03/17 22:57 Dose: 15 mg Nystatin (Nystop Powder -) 1 applic TP DAILY [facility] Last Admin: 03/04/17 09:07 Dose: 1 applic Pantoprazole Sodium (Protonix -) 40 mg PO DAILY [facility] Last Admin: 03/04/17 09:06 Dose: 40 mg Constitutional: Yes: Awake, vented Eyes: Yes: WNL HENT: Yes: WNL Neck: Yes: Supple (TRACH) Cardiovascular: Yes: Pulse Irregular, S1, S2 Respiratory: Yes: Diminished (DIMINISHED BS ON LEFT) Gastrointestinal: Yes: Normal Bowel Sounds, Soft Extremities: Yes: WNL Edema: No Labs: Laboratory Results - last 24 hr 03/04/17 03/04/17 06:20 06:20 WBC 9.9 RBC 3.92 D Hgb 10.1 L D Hct 31.1 L D MCV 79.4 L MCH 25.8 MCHC 32.5 RDW 17.2 H Plt Count 285 MPV 8.1 Neutrophils % 78.8 Lymphocytes % 13.0 D Monocytes % 6.0 Eosinophils % 1.4 Basophils % 0.8 Sodium 139 Potassium 4.0 Chloride 102 Carbon Dioxide 29 Anion Gap 8 BUN 9 D Creatinine 0.3 L D Creat Clearance w eGFR > 60 Random Glucose 78 Calcium 7.9 L Total Bilirubin 1.1 H D AST 14 L ALT 20 Alkaline Phosphatase 93 Total Protein 5.4 L Albumin 1.7 L Problem List - Problems (1) Anemia Code(s): D64.9 - ANEMIA, UNSPECIFIED (2) COPD (chronic obstructive pulmonary disease) Code(s): J44.9 - CHRONIC OBSTRUCTIVE PULMONARY DISEASE, UNSPECIFIED Qualifiers : COPD type: unspecified COPD Qualified Code(s): J44.9 - Chronic obstructive pulmonary disease, unspecified (3) Chronic respiratory failure Code(s): J96.10 - CHRONIC RESPIRATORY FAILURE, UNSP W HYPOXIA OR HYPERCAPNIA Qualifiers: Respiratory failure complication: hypercapnia Qualified Code(s): J96.12 - Chronic respiratory failure with hypercapnia (4) AICD (automatic cardioverter/defibrillator) present Code(s): Z95.810 - PRESENCE OF AUTOMATIC (IMPLANTABLE) CARDIAC DEFIBRILLATOR (5) Acute and chronic respiratory failure with hypercapnia Code(s): J96.22 - ACUTE AND CHRONIC RESPIRATORY FAILURE WITH HYPERCAPNIA (6) HTN (hypertension) Code(s): I10 - ESSENTIAL (PRIMARY) HYPERTENSION (7) Hyperlipemia Code(s): E78.5 - HYPERLIPIDEMIA, UNSPECIFIED (8) PAF (paroxysmal atrial fibrillation) Code(s): I48.0 - PAROXYSMAL ATRIAL FIBRILLATION (9) Respirator dependence Code(s): Z99.11 - DEPENDENCE ON RESPIRATOR [VENTILATOR] STATUS (10) Atelectasis of left lung Code(s): J98.11 - ATELECTASIS (11) Atelectasis Code(s): J98.11 - ATELECTASIS Assessment/Plan IMP ACUTE ON CHRONIC HYPOXEMIC/HYPERCAPNEIC RESPIRATORY FAILURE LEFT LUNG ATELECTASIS END STAGE COPD AFIB CHF H/O GI BLEED PLAN VENT SUPPORT ON AC MODE INHALED BRONCHODILATORS TRACHEAL SUCTIONING WITH CUDET CATH MUCOMYST F/U CHEST X-RAY AM WILL CHECK AM CXR -> IF NOT IMPROVED -> FLEX BRONCHOSCOPY SUNDAY/ SUNDAY RATE CONTROL DR LANDON
[2017-03-04] MEDS: BACITRACIN 15 GM TUBE TOPICAL OINTMENT TP SCH (14:07)
--- NOTE | 2017-03-04 16:49 | PN ---
Progress Note, Physician History of Present Illness: Awake , alert Temps remain down Breathing non-labored - Current Medication List Current Medications: Active Medications Acetaminophen (Tylenol -) 650 mg PO Q6H PRN PRN Reason: FEVER OR PAIN Last Admin: 03/03/17 06:10 Dose: 650 mg Acetylcysteine (Mucomyst 20 Oral / Inh Use Only*) 200 mg IH QIDR [facility] Last Admin: 03/04/17 11:20 Dose: 200 mg Albuterol Sulfate (Ventolin 0.5% -) 1 amp NEB QIDR [facility] Last Admin: 03/04/17 11:20 Dose: 1 amp Albuterol Sulfate (Ventolin 0.083% Nebulizer Soln -) 1 amp NEB Q4H PRN PRN Reason: SHORT OF BREATH/WHEEZING Apixaban (Eliquis -) 2.5 mg PO BID [facility] Last Admin: 03/04/17 09:06 Dose: 2.5 mg Artificial Tears (Artificial Tears) 1 drop OU BID PRN PRN Reason: DRY EYES Ascorbic Acid (Vitamin C -) 250 mg PO DAILY [facility] Last Admin: 03/04/17 09:06 Dose: 250 mg Atorvastatin Calcium (Lipitor -) 10 mg PO [facility] Last Admin: 03/03/17 22:57 Dose: 10 mg Bacitracin (Bacitracin -) 1 applic TP DAILY [facility] Last Admin: 03/04/17 14:07 Dose: Not Given Ferrous Sulfate (Feosol -) 325 mg PO BID [facility] Last Admin: 03/04/17 09:06 Dose: 325 mg Meropenem 500 mg/ Dextrose 100 mls @ 200 mls/hr IVPB Q8H-IV [facility] Last Admin: 03/04/17 09:06 Dose: 200 mls/hr Potassium Chloride/Sodium Chloride (1/2ns+20meq Kcl) 1,000 mls @ 75 mls/hr IV ASDIR [facility] Last Admin: 03/04/17 10:00 Dose: Not Given Lactobacillus Acidophilus (Bacid -) 1 tab PO DAILY [facility] Last Admin: 03/04/17 09:06 Dose: 1 tab Loratadine (Claritin -) 10 mg PO DAILY [facility] Last Admin: 03/04/17 09:06 Dose: 10 mg Mirtazapine (Remeron -) 15 mg PO HS [facility] Last Admin: 03/03/17 22:57 Dose: 15 mg Nystatin (Nystop Powder -) 1 applic TP DAILY [facility] Last Admin: 03/04/17 09:07 Dose: 1 applic Pantoprazole Sodium (Protonix -) 40 mg PO DAILY [facility] Last Admin: 03/04/17 09:06 Dose: 40 mg - Objective Vital Signs: Vital Signs Temperature 99.3 F 03/04/17 14:29 Pulse Rate 76 03/04/17 14:29 Respiratory Rate 16 03/04/17 14:29 Blood Pressure 108/60 03/04/17 14:29 O2 Sat by Pulse Oximetry (%) 95 03/04/17 11:19 Constitutional: Yes: No Distress, Cachectic Cardiovascular: Yes: Regular Rate and Rhythm, S1, S2 Respiratory: Yes: Diminished Gastrointestinal: Yes: Normal Bowel Sounds, Soft. No: Tenderness Edema: No Labs: CBC, BMP 03/04/17 06:20 03/04/17 06:20 INR, PTT INR 1.32 (0.82-1.09) H 02/26/17 17:45 Assessment/Plan Fever- Lung v. source Pneumonia/atelectasis Respiratory failure UTI ESBL Continue meropenem Contact precautions Possible bronch this week
[2017-03-04] MEDS: MIRTAZAPINE 15 MG TABLET (FP) PO SCH (23:14)
[2017-03-04] MEDS: ATORVASTATIN CA 10 MG TABLET (FP) PO SCH (23:14)
[2017-03-05] MEDS: SODIUM CHLORIDE 0.45%/POT 1,000 ML IV SCH ×3 (00:47→17:21)
[2017-03-05] MEDS: MEROPENEM 500 MG in DEXTROSE 5%-WATER - 100 ML IVPB SCH ×3 (01:15→17:34)
[2017-03-05] MEDS: ACETYLCYSTEINE 20% 200MG/ML 4 ML VIAL *FOR ORAL / INH USE ONLY IH SCH ×3 (06:48→18:40)
[2017-03-05] MEDS: ALBUTEROL SO4 0.5 % INH SOLN 2.5 MG/0.5 ML VIAL.NEB. NEB SCH ×3 (06:48→18:41)
[2017-03-05 08:03] LABS: BASOPHIL 1.5 % (0-2.0); EOSINOPHIL 3.3 % (0-4.5); MCH 25.8 pg (25.7-33.7); MCHC 31.8 g/dl (32.0-36.0); MEAN CELL VOLUME 81.3 fl (80-96); NEUTROPHILS 71.3 % (42.8-82.8); PLATELET COUNT 280 K/MM3 (134-434); RDW 17.2 % (11.6-15.6); WHITE BLOOD COUNT 7.2 K/mm3 (4.0-10.0)
[2017-03-05 08:14] LABS: CALCIUM 8.2 mg/dL (8.5-10.1)
[2017-03-05 08:18] LABS: ALBUMIN 1.8 g/dl (3.4-5.0); ALK PHOS 90 U/L (45-117); ANION GAP 7 (8-16); BILIRUBIN,TOTAL 0.3 mg/dL (0.2-1.0); CO2 32 mmol/L (21-32); CREATININE 0.4 mg/dL (0.55-1.02); GLUCOSE,RANDOM 74 mg/dL (74-106); SGOT/AST 15 U/L (15-37); SGPT/ALT 18 U/L (12-78); TOT PROT 5.5 g/dl (6.4-8.2)
[2017-03-05] MEDS ORDERED: PT OWN MED DRAWER 7, Y5N ONE ×3 (10:56→21:33)
[2017-03-05] MEDS: BACITRACIN 15 GM TUBE TOPICAL OINTMENT TP SCH (11:02)
[2017-03-05] MEDS: LACTOBACILLUS ACIDOPHILUS 1 EACH TAB (FP) PO SCH (11:02)
[2017-03-05] MEDS: LORATADINE 10 MG TABLET PO SCH (11:02)
[2017-03-05] MEDS: APIXABAN 2.5 MG TABLET PO SCH ×2 (11:03→23:01)
[2017-03-05] MEDS: FERROUS SO4 325 MG TABLET (FP) PO SCH ×2 (11:03→23:00)
[2017-03-05] MEDS: NYSTATIN POWDER 100,000 UNITS/GM - 15 GM TOPICAL POWDER TP SCH (11:04)
[2017-03-05] MEDS: PANTOPRAZOLE 40 MG TABLET (FP) PO SCH (11:04)
[2017-03-05] MEDS: ASCORBIC ACID 250 MG TABLET (FP) PO SCH (11:05)
--- NOTE | 2017-03-05 11:47 | PN ---
Progress Note (short form) - Note Progress Note: PULMONARY Vented on volume assist control. No fevers recorded. Last Vital Signs Temp Pulse Resp BP Pulse Ox 98.2 F 72 18 109/54 98 03/05/17 10:00 03/05/17 10:00 03/05/17 10:00 03/05/17 10:00 03/05/17 09:27 Gen: vented, awake Heart: RRR Lung: scattered rhonchi Abd: soft, nontender Ext: no edema CBC, BMP 03/05/17 06:30 03/05/17 06:30 Active Medications Acetaminophen (Tylenol -) 650 mg PO Q6H PRN PRN Reason: FEVER OR PAIN Last Admin: 03/03/17 06:10 Dose: 650 mg Acetylcysteine (Mucomyst 20 Oral / Inh Use Only*) 200 mg IH QIDR [facility] Last Admin: 03/05/17 06:48 Dose: 200 mg Albuterol Sulfate (Ventolin 0.5% -) 1 amp NEB QIDR [facility] Last Admin: 03/05/17 06:48 Dose: 1 amp Albuterol Sulfate (Ventolin 0.083% Nebulizer Soln -) 1 amp NEB Q4H PRN PRN Reason: SHORT OF BREATH/WHEEZING Apixaban (Eliquis -) 2.5 mg PO BID [facility] Last Admin: 03/05/17 11:03 Dose: 2.5 mg Artificial Tears (Artificial Tears) 1 drop OU BID PRN PRN Reason: DRY EYES Ascorbic Acid (Vitamin C -) 250 mg PO DAILY [facility] Last Admin: 03/05/17 11:05 Dose: 250 mg Atorvastatin Calcium (Lipitor -) 10 mg PO HS [facility] Last Admin: 03/04/17 23:14 Dose: 10 mg Bacitracin (Bacitracin -) 1 applic TP DAILY [facility] Last Admin: 03/05/17 11:02 Dose: Not Given Ferrous Sulfate (Feosol -) 325 mg PO BID [facility] Last Admin: 03/05/17 11:03 Dose: 325 mg Meropenem 500 mg/ Dextrose 100 mls @ 200 mls/hr IVPB Q8H-IV [facility] Last Admin: 03/05/17 11:04 Dose: 200 mls/hr Potassium Chloride/Sodium Chloride (1/2ns+20meq Kcl) 1,000 mls @ 75 mls/hr IV ASDIR [facility] Last Admin: 03/05/17 10:52 Dose: Not Given Lactobacillus Acidophilus (Bacid -) 1 tab PO DAILY [facility] Last Admin: 03/05/17 11:02 Dose: 1 tab Loratadine (Claritin -) 10 mg PO DAILY [facility] Last Admin: 03/05/17 11:02 Dose: 10 mg Mirtazapine (Remeron -) 15 mg PO HS [facility] Last Admin: 03/04/17 23:14 Dose: 15 mg Nystatin (Nystop Powder -) 1 applic TP DAILY [facility] Last Admin: 03/05/17 11:04 Dose: 1 applic Pantoprazole Sodium (Protonix -) 40 mg PO DAILY [facility] Last Admin: 03/05/17 11:04 Dose: 40 mg A/P Acute on Chronic Hypoxic and Hypercapneic Respiratory Failure s/p Tracheostomy Pneumonia UTI Atelectasis Atrial Fibrillation COPD CHF - antibiotics per ID - monitor fever curve, WBC trend - chest PT - mucomyst - can defer bronchoscopy as pt has defervesced and sputum with organisms - DVT prophylaxis
--- NOTE | 2017-03-05 13:07 | PN ---
Progress Note, Physician Chief Complaint: UTI,Anemia, Pneumonia History of Present Illness: NAD, in bed, mechanically vented, alert, son at the bedside -no Bronchoscopy indicated as per pulmonary - Current Medication List Current Medications: Active Medications Acetaminophen (Tylenol -) 650 mg PO Q6H PRN PRN Reason: FEVER OR PAIN Last Admin: 03/03/17 06:10 Dose: 650 mg Acetylcysteine (Mucomyst 20 Oral / Inh Use Only*) 200 mg IH QIDR [facility] Last Admin: 03/05/17 12:32 Dose: 200 mg Albuterol Sulfate (Ventolin 0.5% -) 1 amp NEB QIDR [facility] Last Admin: 03/05/17 12:32 Dose: 1 amp Albuterol Sulfate (Ventolin 0.083% Nebulizer Soln -) 1 amp NEB Q4H PRN PRN Reason: SHORT OF BREATH/WHEEZING Apixaban (Eliquis -) 2.5 mg PO BID [facility] Last Admin: 03/05/17 11:03 Dose: 2.5 mg Artificial Tears (Artificial Tears) 1 drop OU BID PRN PRN Reason: DRY EYES Ascorbic Acid (Vitamin C -) 250 mg PO DAILY [facility] Last Admin: 03/05/17 11:05 Dose: 250 mg Atorvastatin Calcium (Lipitor -) 10 mg PO HS [facility] Last Admin: 03/04/17 23:14 Dose: 10 mg Bacitracin (Bacitracin -) 1 applic TP DAILY [facility] Last Admin: 03/05/17 11:02 Dose: Not Given Ferrous Sulfate (Feosol -) 325 mg PO BID [facility] Last Admin: 03/05/17 11:03 Dose: 325 mg Meropenem 500 mg/ Dextrose 100 mls @ 200 mls/hr IVPB Q8H-IV [facility] Last Admin: 03/05/17 11:04 Dose: 200 mls/hr Potassium Chloride/Sodium Chloride (1/2ns+20meq Kcl) 1,000 mls @ 75 mls/hr IV ASDIR [facility] Last Admin: 03/05/17 10:52 Dose: Not Given Lactobacillus Acidophilus (Bacid -) 1 tab PO DAILY [facility] Last Admin: 03/05/17 11:02 Dose: 1 tab Loratadine (Claritin -) 10 mg PO DAILY [facility] Last Admin: 03/05/17 11:02 Dose: 10 mg Mirtazapine (Remeron -) 15 mg PO HS [facility] Last Admin: 03/04/17 23:14 Dose: 15 mg Nystatin (Nystop Powder -) 1 applic TP DAILY [facility] Last Admin: 03/05/17 11:04 Dose: 1 applic Pantoprazole Sodium (Protonix -) 40 mg PO DAILY [facility] Last Admin: 03/05/17 11:04 Dose: 40 mg - Objective Vital Signs: Vital Signs Temperature 98.2 F 03/05/17 10:00 Pulse Rate 72 03/05/17 10:00 Respiratory Rate 18 03/05/17 10:00 Blood Pressure 109/54 03/05/17 10:00 O2 Sat by Pulse Oximetry (%) 98 03/05/17 09:27 Constitutional: Yes: Well Nourished, No Distress, Calm Cardiovascular: Yes: Regular Rate and Rhythm Respiratory: Yes: Mechanically Ventilated Gastrointestinal: Yes: Normal Bowel Sounds Musculoskeletal: Yes: WNL Extremities: Yes: WNL Edema: No Peripheral Pulses WNL: Yes Neurological: Yes: Alert, Oriented Psychiatric: Yes: Alert, Oriented Labs: CBC, BMP 03/05/17 06:30 03/05/17 06:30 INR, PTT INR 1.32 (0.82-1.09) H 02/26/17 17:45 Problem List - Problems (1) Anemia Assessment/Plan: -1 unit PRBC on admission -monitor labs -stool OB positive -iron studies low on Iron, -ferrous sulfate BID -Venofer x 1 dose given yesterday -seen by hematology -H/H stable at this time Code(s): D64.9 - ANEMIA, UNSPECIFIED (2) Chronic respiratory failure Assessment/Plan: on mechanical ventilation Code(s): J96.10 - CHRONIC RESPIRATORY FAILURE, UNSP W HYPOXIA OR HYPERCAPNIA Qualifiers: Respiratory failure complication: hypercapnia Qualified Code(s): J96.12 - Chronic respiratory failure with hypercapnia (3) Pneumonia Assessment/Plan: ID and pulmonary consult IV abx Code(s): J18.9 - PNEUMONIA, UNSPECIFIED ORGANISM Qualifiers: Pneumonia type: due to unspecified organism Laterality: left Lung location: lower lobe of lung Qualified Code(s): J18.1 - Lobar pneumonia, unspecified organism (4) UTI (urinary tract infection) Assessment/Plan: UC positive for proteus mirabilus esbl -ID consult -IV abx Code(s): N39.0 - URINARY TRACT INFECTION, SITE NOT SPECIFIED Qualifiers: Urinary tract infection type: site unspecified Hematuria presence: without hematuria Qualified Code(s): N39.0 - Urinary tract infection, site not specified; R31.9 - Hematuria, unspecified (5) Fever Assessment/Plan: -no fever since 03/03/17 -repeat BC negative -seen by ID -tylenol for fever over 100.0F -repeat labs in AM Code(s): R50.9 - FEVER, UNSPECIFIED (6) Functional quadriplegia Code(s): R53.2 - FUNCTIONAL QUADRIPLEGIA (7) Leukocytosis Assessment/Plan: -normalized -BC negative -IV abx -ID consult Code(s): D72.829 - ELEVATED WHITE BLOOD CELL COUNT, UNSPECIFIED Assessment/Plan -continue AC as per cardiology as long as H/H is stable -repeat BC negative -afebrile since 03/03/17 -tylenol for fever over 100.0F -IV abx, switch to PO as per ID if possible -labs in AM -seen by Pulmonary, bronchoscopy deferred at this time.
--- NOTE | 2017-03-05 14:44 | PN ---
Progress Note, Physician Chief Complaint: Patient appears comfortable at the time of exam. She remains vented, awake and alert. Denies SOB, chest pain or palpitation. History of Present Illness: 82 year old female with a PMHx of paroxysmal atrial fibrillation, CHF, HLD, s/p cardiac arrest in 1998, s/p [employer] AICD single lead, COPD, s/p trach and vent dependent. She was admitted from a chronic care facility with R/O pneumonia , UTI, possible GIB. HCT 26.4%. She was taking Xarelto 20 mg daily and now switched to Eliquis 2.5 mg PO BID. - Current Medication List Current Medications: Active Medications Acetaminophen (Tylenol -) 650 mg PO Q6H PRN PRN Reason: FEVER OR PAIN Last Admin: 03/03/17 06:10 Dose: 650 mg Acetylcysteine (Mucomyst 20 Oral / Inh Use Only*) 200 mg IH QIDR [facility] Last Admin: 03/05/17 12:32 Dose: 200 mg Albuterol Sulfate (Ventolin 0.5% -) 1 amp NEB QIDR [facility] Last Admin: 03/05/17 12:32 Dose: 1 amp Albuterol Sulfate (Ventolin 0.083% Nebulizer Soln -) 1 amp NEB Q4H PRN PRN Reason: SHORT OF BREATH/WHEEZING Apixaban (Eliquis -) 2.5 mg PO BID [facility] Last Admin: 03/05/17 11:03 Dose: 2.5 mg Artificial Tears (Artificial Tears) 1 drop OU BID PRN PRN Reason: DRY EYES Ascorbic Acid (Vitamin C -) 250 mg PO DAILY [facility] Last Admin: 03/05/17 11:05 Dose: 250 mg Atorvastatin Calcium (Lipitor -) 10 mg PO HS [facility] Last Admin: 03/04/17 23:14 Dose: 10 mg Bacitracin (Bacitracin -) 1 applic TP DAILY [facility] Last Admin: 03/05/17 11:02 Dose: Not Given Ferrous Sulfate (Feosol -) 325 mg PO BID [facility] Last Admin: 03/05/17 11:03 Dose: 325 mg Meropenem 500 mg/ Dextrose 100 mls @ 200 mls/hr IVPB Q8H-IV [facility] Last Admin: 03/05/17 11:04 Dose: 200 mls/hr Potassium Chloride/Sodium Chloride (1/2ns+20meq Kcl) 1,000 mls @ 75 mls/hr IV ASDIR [facility] Last Admin: 03/05/17 10:52 Dose: Not Given Lactobacillus Acidophilus (Bacid -) 1 tab PO DAILY [facility] Last Admin: 03/05/17 11:02 Dose: 1 tab Loratadine (Claritin -) 10 mg PO DAILY [facility] Last Admin: 03/05/17 11:02 Dose: 10 mg Mirtazapine (Remeron -) 15 mg PO HS [facility] Last Admin: 03/04/17 23:14 Dose: 15 mg Nystatin (Nystop Powder -) 1 applic TP DAILY [facility] Last Admin: 03/05/17 11:04 Dose: 1 applic Pantoprazole Sodium (Protonix -) 40 mg PO DAILY [facility] Last Admin: 03/05/17 11:04 Dose: 40 mg - Objective Vital Signs: Vital Signs Temperature 98.2 F 03/05/17 10:00 Pulse Rate 72 03/05/17 10:00 Respiratory Rate 16 03/05/17 13:16 Blood Pressure 109/54 03/05/17 10:00 O2 Sat by Pulse Oximetry (%) 98 03/05/17 13:17 Constitutional: Yes: No Distress, Calm, Cachectic, Pallor Eyes: Yes: WNL HENT: Yes: WNL Neck: Yes: Other (Vented through trach) Cardiovascular: Yes: Regular Rate and Rhythm, S1, S2 Respiratory: Yes: Regular, CTA Bilaterally Gastrointestinal: Yes: Normal Bowel Sounds, Soft ...Rectal Exam: Yes: Deferred Edema: No Peripheral Pulses WNL: Yes Labs: CBC, BMP 03/05/17 06:30 03/05/17 06:30 INR, PTT INR 1.32 (0.82-1.09) H 02/26/17 17:45 Assessment/Plan 82 year old female with a PMHx of paroxysmal atrial fibrillation, CHF, HLD, s/p cardiac arrest in 1998, s/p [employer] AICD single lead, COPD, s/p trach and vent dependent. She was admitted from a chronic care facility with R/O pneumonia , UTI, possible GIB. HCT 26.4%. She was taking Xarelto 20 mg daily and now switched to Eliquis 2.5 mg PO BID 1) Paroxysmal atrial fibrillation. She is likely in sinus without recurrent atrial fibrillation or palpitation. Continue Eliquis 2.5 mg BID for stroke prevention. Monitor CBC Please call us for re consult as needed.
[2017-03-05] MEDS: MIRTAZAPINE 15 MG TABLET (FP) PO SCH (23:00)
[2017-03-05] MEDS: ATORVASTATIN CA 10 MG TABLET (FP) PO SCH (23:00)
[2017-03-06 00:08] LABS: A/G RATIO 0.6 (0.7-1.7); ALBUMIN 1.8 g/dL (2.9-4.4); ALPHA-1-GLOBULIN 0.4 g/dL (0.0-0.4); GLOBULIN, TOTAL 3.2 g/dL (2.2-3.9); M-SPIKE Not Observed g/dL (Not Observed)
[2017-03-06] MEDS: ACETYLCYSTEINE 20% 200MG/ML 4 ML VIAL *FOR ORAL / INH USE ONLY IH SCH ×3 (00:18→17:50)
[2017-03-06] MEDS ORDERED: PT OWN MED DRAWER 7, Y5N ONE ×3 (01:45→23:06)
[2017-03-06] MEDS: MEROPENEM 500 MG in DEXTROSE 5%-WATER - 100 ML IVPB SCH ×3 (02:35→17:41)
[2017-03-06] MEDS: ALBUTEROL SO4 0.083% IH SOL 2.5 MG/3 ML VIAL.NEB. NEB PRN ×2 (06:17→17:50)
[2017-03-06] MEDS: SODIUM CHLORIDE 0.45%/POT 1,000 ML IV SCH (09:59)
[2017-03-06] MEDS: FERROUS SO4 325 MG TABLET (FP) PO SCH ×2 (10:00→23:10)
[2017-03-06] MEDS: PANTOPRAZOLE 40 MG TABLET (FP) PO SCH (10:00)
[2017-03-06] MEDS: LORATADINE 10 MG TABLET PO SCH (10:00)
[2017-03-06] MEDS: LACTOBACILLUS ACIDOPHILUS 1 EACH TAB (FP) PO SCH (10:00)
[2017-03-06] MEDS: APIXABAN 2.5 MG TABLET PO SCH ×2 (10:01→23:10)
[2017-03-06] MEDS: NYSTATIN POWDER 100,000 UNITS/GM - 15 GM TOPICAL POWDER TP SCH (10:01)
[2017-03-06] MEDS: BACITRACIN 15 GM TUBE TOPICAL OINTMENT TP SCH (10:01)
[2017-03-06] MEDS: ASCORBIC ACID 250 MG TABLET (FP) PO SCH (10:02)
--- NOTE | 2017-03-06 10:55 | PN ---
Progress Note, Physician Chief Complaint: patient is afebrile on meropenem since 03/01 WBC trending down now normal range - Current Medication List Current Medications: Active Medications Acetaminophen (Tylenol -) 650 mg PO Q6H PRN PRN Reason: FEVER OR PAIN Last Admin: 03/03/17 06:10 Dose: 650 mg Acetylcysteine (Mucomyst 20 Oral / Inh Use Only*) 200 mg IH QIDR [facility] Last Admin: 03/06/17 06:16 Dose: 200 mg Albuterol Sulfate (Ventolin 0.083% Nebulizer Soln -) 1 amp NEB Q4H PRN PRN Reason: SHORT OF BREATH/WHEEZING Last Admin: 03/06/17 06:17 Dose: 1 amp Apixaban (Eliquis -) 2.5 mg PO BID [facility] Last Admin: 03/06/17 10:01 Dose: 2.5 mg Artificial Tears (Artificial Tears) 1 drop OU BID PRN PRN Reason: DRY EYES Ascorbic Acid (Vitamin C -) 250 mg PO DAILY [facility] Last Admin: 03/06/17 10:02 Dose: 250 mg Atorvastatin Calcium (Lipitor -) 10 mg PO HS [facility] Last Admin: 03/05/17 23:00 Dose: 10 mg Bacitracin (Bacitracin -) 1 applic TP DAILY [facility] Last Admin: 03/06/17 10:01 Dose: 1 applic Ferrous Sulfate (Feosol -) 325 mg PO BID [facility] Last Admin: 03/06/17 10:00 Dose: 325 mg Meropenem 500 mg/ Dextrose 100 mls @ 200 mls/hr IVPB Q8H-IV [facility] Last Admin: 03/06/17 10:01 Dose: 200 mls/hr Potassium Chloride/Sodium Chloride (1/2ns+20meq Kcl) 1,000 mls @ 75 mls/hr IV ASDIR [facility] Last Admin: 03/06/17 09:59 Dose: 75 mls/hr Lactobacillus Acidophilus (Bacid -) 1 tab PO DAILY [facility] Last Admin: 03/06/17 10:00 Dose: 1 tab Loratadine (Claritin -) 10 mg PO DAILY [facility] Last Admin: 03/06/17 10:00 Dose: 10 mg Mirtazapine (Remeron -) 15 mg PO HS [facility] Last Admin: 03/05/17 23:00 Dose: 15 mg Nystatin (Nystop Powder -) 1 applic TP DAILY [facility] Last Admin: 03/06/17 10:01 Dose: 1 applic Pantoprazole Sodium (Protonix -) 40 mg PO DAILY [facility] Last Admin: 03/06/17 10:00 Dose: 40 mg - Objective Vital Signs: Vital Signs Temperature 98.4 F 03/06/17 06:00 Pulse Rate 80 03/06/17 06:00 Respiratory Rate 14 03/06/17 06:45 Blood Pressure 104/61 03/06/17 06:00 O2 Sat by Pulse Oximetry (%) 99 03/05/17 21:00 Constitutional: Yes: Calm, Thin Neck: Yes: Other (trach) Cardiovascular: Yes: Regular Rate and Rhythm, S1, S2 Respiratory: Yes: Rhonchi, Wheezes (scattered) Gastrointestinal: Yes: Normal Bowel Sounds, Soft Edema: No Neurological: Yes: Alert (awake nods her head when you talk to her) Labs: CBC, BMP 03/05/17 06:30 03/05/17 06:30 INR, PTT INR 1.32 (0.82-1.09) H 02/26/17 17:45 Problem List - Problems (1) UTI (urinary tract infection) Assessment/Plan: ESBL- isolation/ contaact precautions on meropenem since - duration of abx depends on ID wbc trending down no fever for 48 hrs Code(s): N39.0 - URINARY TRACT INFECTION, SITE NOT SPECIFIED Qualifiers: Urinary tract infection type: site unspecified Hematuria presence: without hematuria Qualified Code(s): N39.0 - Urinary tract infection, site not specified; R31.9 - Hematuria, unspecified (2) Anemia Assessment/Plan: got one unit prbc got venofer this admission h/h stable on ferrous sulfate Code(s): D64.9 - ANEMIA, UNSPECIFIED Qualifiers: Anemia type: iron deficiency (3) Atelectasis of left lung Assessment/Plan: no need for bronch at this time Code(s): J98.11 - ATELECTASIS (4) Chronic respiratory failure Assessment/Plan: mechanically vented Code(s): J96.10 - CHRONIC RESPIRATORY FAILURE, UNSP W HYPOXIA OR HYPERCAPNIA Qualifiers: Respiratory failure complication: hypercapnia Qualified Code(s): J96.12 - Chronic respiratory failure with hypercapnia (5) PAF (paroxysmal atrial fibrillation) Assessment/Plan: now in sinus eliquis bid for stroke prevention Code(s): I48.0 - PAROXYSMAL ATRIAL FIBRILLATION
--- NOTE | 2017-03-06 11:57 | PN ---
Progress Note (short form) - Note Progress Note: PULMONARY Awake, vented on volume assist control. No fevers recorded. Last Vital Signs Temp Pulse Resp BP Pulse Ox 98.6 F 62 14 110/60 97 03/06/17 10:00 03/06/17 10:45 03/06/17 10:45 03/06/17 10:00 03/06/17 10:45 Gen: vented, awake Heart: RRR Lung: scattered rhonchi, wheezes Abd: soft, nontender Ext: no edema CBC, BMP 03/05/17 06:30 03/05/17 06:30 Active Medications Acetaminophen (Tylenol -) 650 mg PO Q6H PRN PRN Reason: FEVER OR PAIN Last Admin: 03/03/17 06:10 Dose: 650 mg Acetylcysteine (Mucomyst 20 Oral / Inh Use Only*) 200 mg IH QIDR [facility] Last Admin: 03/06/17 06:16 Dose: 200 mg Albuterol Sulfate (Ventolin 0.083% Nebulizer Soln -) 1 amp NEB Q4H PRN PRN Reason: SHORT OF BREATH/WHEEZING Last Admin: 03/06/17 06:17 Dose: 1 amp Apixaban (Eliquis -) 2.5 mg PO BID [facility] Last Admin: 03/06/17 10:01 Dose: 2.5 mg Artificial Tears (Artificial Tears) 1 drop OU BID PRN PRN Reason: DRY EYES Ascorbic Acid (Vitamin C -) 250 mg PO DAILY [facility] Last Admin: 03/06/17 10:02 Dose: 250 mg Atorvastatin Calcium (Lipitor -) 10 mg PO HS [facility] Last Admin: 03/05/17 23:00 Dose: 10 mg Bacitracin (Bacitracin -) 1 applic TP DAILY [facility] Last Admin: 03/06/17 10:01 Dose: 1 applic Ferrous Sulfate (Feosol -) 325 mg PO BID [facility] Last Admin: 03/06/17 10:00 Dose: 325 mg Meropenem 500 mg/ Dextrose 100 mls @ 200 mls/hr IVPB Q8H-IV [facility] Last Admin: 03/06/17 10:01 Dose: 200 mls/hr Potassium Chloride/Sodium Chloride (1/2ns+20meq Kcl) 1,000 mls @ 75 mls/hr IV ASDIR [facility] Last Admin: 08/15/17 09:59 Dose: 75 mls/hr Lactobacillus Acidophilus (Bacid -) 1 tab PO DAILY [facility] Last Admin: 03/06/17 10:00 Dose: 1 tab Loratadine (Claritin -) 10 mg PO DAILY [facility] Last Admin: 03/06/17 10:00 Dose: 10 mg Mirtazapine (Remeron -) 15 mg PO HS [facility] Last Admin: 03/05/17 23:00 Dose: 15 mg Nystatin (Nystop Powder -) 1 applic TP DAILY [facility] Last Admin: 03/06/17 10:01 Dose: 1 applic Pantoprazole Sodium (Protonix -) 40 mg PO DAILY [facility] Last Admin: 03/06/17 10:00 Dose: 40 mg A/P Acute on Chronic Hypoxic and Hypercapneic Respiratory Failure s/p Tracheostomy Pneumonia UTI Atelectasis Atrial Fibrillation COPD CHF - antibiotics per ID - monitor fever curve, WBC trend - chest PT - mucomyst - can defer bronchoscopy as pt has defervesced and sputum with organisms - DVT prophylaxis
--- NOTE | 2017-03-06 14:28 | PN ---
Progress Note (short form) - Note Progress Note: ALERT TRACH TO VENT day #5 meropenem Vital Signs Period Temp Pulse Resp BP Sys/Vera Pulse Ox Last 24 Hr 98.2 F-98.6 F 62-85 14-18 104-110/52-63 97-99 cor-rrr lungs decreased bs at bases abd soft, ext no edema CBC, BMP 03/05/17 06:30 03/05/17 06:30 Microbiology 03/01/17 11:30 Blood Culture - Final Blood - Peripheral Venous NO GROWTH AFTER 5 DAYS INCUBATION 03/01/17 11:45 Blood Culture - Final Blood - Peripheral Venous NO GROWTH AFTER 5 DAYS INCUBATION A/P ATELECTASIS OF THE LEFT LUNG-improved BLOOD CULTURE- LIKELY CONTAMINANT day #5 meropenem to complete 7 days repeat cxray in am
[2017-03-06] MEDS: ATORVASTATIN CA 10 MG TABLET (FP) PO SCH (23:10)
[2017-03-06] MEDS: MIRTAZAPINE 15 MG TABLET (FP) PO SCH (23:10)
[2017-03-07] MEDS: ACETYLCYSTEINE 20% 200MG/ML 4 ML VIAL *FOR ORAL / INH USE ONLY IH SCH ×4 (00:03→23:26)
[2017-03-07] MEDS: ALBUTEROL SO4 0.083% IH SOL 2.5 MG/3 ML VIAL.NEB. NEB PRN ×4 (00:03→23:27)
[2017-03-07] MEDS ORDERED: PT OWN MED DRAWER 7, Y5N ONE ×6 (02:56→21:26)
[2017-03-07] MEDS: MEROPENEM 500 MG in DEXTROSE 5%-WATER - 100 ML IVPB SCH ×3 (03:05→17:32)
[2017-03-07] MEDS: SODIUM CHLORIDE 0.45%/POT 1,000 ML IV SCH ×3 (03:34→21:48)
[2017-03-07] MEDS: LACTOBACILLUS ACIDOPHILUS 1 EACH TAB (FP) PO SCH (10:26)
[2017-03-07] MEDS: APIXABAN 2.5 MG TABLET PO SCH ×2 (10:27→23:44)
[2017-03-07] MEDS: LORATADINE 10 MG TABLET PO SCH (10:27)
[2017-03-07] MEDS: NYSTATIN POWDER 100,000 UNITS/GM - 15 GM TOPICAL POWDER TP SCH (10:27)
[2017-03-07] MEDS: BACITRACIN 15 GM TUBE TOPICAL OINTMENT TP SCH (10:27)
[2017-03-07] MEDS: FERROUS SO4 325 MG TABLET (FP) PO SCH ×2 (10:27→21:48)
[2017-03-07] MEDS: PANTOPRAZOLE 40 MG TABLET (FP) PO SCH (10:28)
[2017-03-07] MEDS: ASCORBIC ACID 250 MG TABLET (FP) PO SCH (10:28)
[2017-03-07] MEDS: ACETAMINOPHEN 325 MG TABLET (FP) PO PRN (10:31)
--- NOTE | 2017-03-07 12:04 | PN ---
Progress Note (short form) - Note Progress Note: PULMONARY Remains afebilre. Awake, vented on volume assist control. Last Vital Signs Temp Pulse Resp BP Pulse Ox 98.3 F 63 18 102/63 98 03/07/17 06:00 03/07/17 06:00 03/07/17 07:00 03/07/17 06:00 03/06/17 21:00 Gen: vented, awake Heart: RRR Lung: scattered rhonchi, wheezes Abd: soft, nontender Ext: no edema CBC, BMP 03/05/17 06:30 03/05/17 06:30 Active Medications Acetaminophen (Tylenol -) 650 mg PO Q6H PRN PRN Reason: FEVER OR PAIN Last Admin: 03/07/17 10:31 Dose: 650 mg Acetylcysteine (Mucomyst 20 Oral / Inh Use Only*) 200 mg IH QIDR [facility] Last Admin: 03/07/17 07:11 Dose: 200 mg Albuterol Sulfate (Ventolin 0.083% Nebulizer Soln -) 1 amp NEB Q4H PRN PRN Reason: SHORT OF BREATH/WHEEZING Last Admin: 03/07/17 07:11 Dose: 1 amp Apixaban (Eliquis -) 2.5 mg PO BID [facility] Last Admin: 03/07/17 10:27 Dose: 2.5 mg Artificial Tears (Artificial Tears) 1 drop OU BID PRN PRN Reason: DRY EYES Ascorbic Acid (Vitamin C -) 250 mg PO DAILY [facility] Last Admin: 03/07/17 10:28 Dose: 250 mg Atorvastatin Calcium (Lipitor -) 10 mg PO HS [facility] Last Admin: 03/06/17 23:10 Dose: 10 mg Bacitracin (Bacitracin -) 1 applic TP DAILY [facility] Last Admin: 03/07/17 10:27 Dose: 1 applic Ferrous Sulfate (Feosol -) 325 mg PO BID [facility] Last Admin: 03/07/17 10:27 Dose: 325 mg Meropenem 500 mg/ Dextrose 100 mls @ 200 mls/hr IVPB Q8H-IV [facility] Last Admin: 03/07/17 10:27 Dose: 200 mls/hr Potassium Chloride/Sodium Chloride (1/2ns+20meq Kcl) 1,000 mls @ 75 mls/hr IV ASDIR [facility] Last Admin: 03/07/17 10:37 Dose: Not Given Lactobacillus Acidophilus (Bacid -) 1 tab PO DAILY [facility] Last Admin: 03/07/17 10:26 Dose: 1 tab Loratadine (Claritin -) 10 mg PO DAILY [facility] Last Admin: 03/07/17 10:27 Dose: 10 mg Mirtazapine (Remeron -) 15 mg PO HS [facility] Last Admin: 03/06/17 23:10 Dose: 15 mg Nystatin (Nystop Powder -) 1 applic TP DAILY [facility] Last Admin: 03/07/17 10:27 Dose: 1 applic Pantoprazole Sodium (Protonix -) 40 mg PO DAILY [facility] Last Admin: 03/07/17 10:28 Dose: 40 mg A/P Acute on Chronic Hypoxic and Hypercapneic Respiratory Failure s/p Tracheostomy Pneumonia UTI Atelectasis Atrial Fibrillation COPD CHF - antibiotics per ID - monitor fever curve, WBC trend - chest PT - mucomyst - CXR in AM - DVT prophylaxis
--- NOTE | 2017-03-07 12:30 | PN ---
Progress Note, [employer]ER - Note Progress Note: Selected Entries 03/06/17 03/06/17 03/06/17 02:00 06:00 09:41 Breakfast 50% Lunch Supper Temperature 98.2 F 98.4 F 03/06/17 03/06/17 03/06/17 10:00 14:58 18:00 Breakfast Lunch 50% Supper 75% Temperature 98.6 F 98.9 F 98.1 F 03/07/17 03/07/17 03/07/17 02:00 06:00 09:55 Breakfast 50% Lunch Supper Temperature 99.0 F 98.3 F Continue Dysphagia Chopped/Ground, thin liquids with Ensure compact TID Per [employer] tolerating 50-75 % meals. Tolerating diet at this time.
--- NOTE | 2017-03-07 16:10 | PN ---
Progress Note, Physician Chief Complaint: UTI,Anemia, Pneumonia History of Present Illness: NAD, in bed, mechanically vented, alert -no Bronchoscopy indicated as per pulmonary - Current Medication List Current Medications: Active Medications Acetaminophen (Tylenol -) 650 mg PO Q6H PRN PRN Reason: FEVER OR PAIN Last Admin: 03/07/17 10:31 Dose: 650 mg Acetylcysteine (Mucomyst 20 Oral / Inh Use Only*) 400 mg IH QIDR [facility] Albuterol Sulfate (Ventolin 0.083% Nebulizer Soln -) 1 amp NEB Q4H PRN PRN Reason: SHORT OF BREATH/WHEEZING Last Admin: 03/07/17 07:11 Dose: 1 amp Apixaban (Eliquis -) 2.5 mg PO BID [facility] Last Admin: 03/07/17 10:27 Dose: 2.5 mg Artificial Tears (Artificial Tears) 1 drop OU BID PRN PRN Reason: DRY EYES Ascorbic Acid (Vitamin C -) 250 mg PO DAILY [facility] Last Admin: 03/07/17 10:28 Dose: 250 mg Atorvastatin Calcium (Lipitor -) 10 mg PO HS [facility] Last Admin: 03/06/17 23:10 Dose: 10 mg Bacitracin (Bacitracin -) 1 applic TP DAILY [facility] Last Admin: 03/07/17 10:27 Dose: 1 applic Ferrous Sulfate (Feosol -) 325 mg PO BID [facility] Last Admin: 03/07/17 10:27 Dose: 325 mg Meropenem 500 mg/ Dextrose 100 mls @ 200 mls/hr IVPB Q8H-IV [facility] Last Admin: 03/07/17 10:27 Dose: 200 mls/hr Potassium Chloride/Sodium Chloride (1/2ns+20meq Kcl) 1,000 mls @ 75 mls/hr IV ASDIR [facility] Last Admin: 03/07/17 10:37 Dose: Not Given Lactobacillus Acidophilus (Bacid -) 1 tab PO DAILY [facility] Last Admin: 03/07/17 10:26 Dose: 1 tab Loratadine (Claritin -) 10 mg PO DAILY [facility] Last Admin: 03/07/17 10:27 Dose: 10 mg Mirtazapine (Remeron -) 15 mg PO HS [facility] Last Admin: 03/06/17 23:10 Dose: 15 mg Nystatin (Nystop Powder -) 1 applic TP DAILY [facility] Last Admin: 03/07/17 10:27 Dose: 1 applic Pantoprazole Sodium (Protonix -) 40 mg PO DAILY [facility] Last Admin: 03/07/17 10:28 Dose: 40 mg - Objective Vital Signs: Vital Signs Temperature 99.3 F 03/07/17 14:16 Pulse Rate 82 03/07/17 14:16 Respiratory Rate 16 03/07/17 14:30 Blood Pressure 107/62 03/07/17 14:16 O2 Sat by Pulse Oximetry (%) 98 03/07/17 10:45 Constitutional: Yes: Well Nourished, No Distress, Calm Cardiovascular: Yes: Regular Rate and Rhythm Respiratory: Yes: Regular Gastrointestinal: Yes: Normal Bowel Sounds Musculoskeletal: Yes: WNL Extremities: Yes: WNL Edema: No Peripheral Pulses WNL: Yes Neurological: Yes: Alert, Oriented Psychiatric: Yes: Alert, Oriented Labs: CBC, BMP 03/05/17 06:30 03/05/17 06:30 INR, PTT INR 1.32 (0.82-1.09) H 02/26/17 17:45 Problem List - Problems (1) Anemia Assessment/Plan: much improved Code(s): D64.9 - ANEMIA, UNSPECIFIED Qualifiers: Anemia type: iron deficiency (2) Chronic respiratory failure Assessment/Plan: -on mechanical ventilation -repeat CXR today worsening of left lung atelectasis -pulmonary on board -on mucomyst QID Code(s): J96.10 - CHRONIC RESPIRATORY FAILURE, UNSP W HYPOXIA OR HYPERCAPNIA Qualifiers: Respiratory failure complication: hypercapnia Qualified Code(s): J96.12 - Chronic respiratory failure with hypercapnia (3) Pneumonia Assessment/Plan: ID and pulmonary consult IV abx Code(s): J18.9 - PNEUMONIA, UNSPECIFIED ORGANISM Qualifiers: Pneumonia type: due to unspecified organism Laterality: left Lung location: lower lobe of lung Qualified Code(s): J18.1 - Lobar pneumonia, unspecified organism (4) UTI (urinary tract infection) Assessment/Plan: UC positive for proteus mirabilus esbl -ID consult -IV abx Code(s): N39.0 - URINARY TRACT INFECTION, SITE NOT SPECIFIED Qualifiers: Urinary tract infection type: site unspecified Hematuria presence: without hematuria Qualified Code(s): N39.0 - Urinary tract infection, site not specified; R31.9 - Hematuria, unspecified (5) Fever Assessment/Plan: -afebrile -repeat BC negative -seen by ID -tylenol for fever over 100.0F Code(s): R50.9 - FEVER, UNSPECIFIED (6) Functional quadriplegia Code(s): R53.2 - FUNCTIONAL QUADRIPLEGIA (7) Leukocytosis Code(s): D72.829 - ELEVATED WHITE BLOOD CELL COUNT, UNSPECIFIED Assessment/Plan see problem list
[2017-03-07] MEDS: MIRTAZAPINE 15 MG TABLET (FP) PO SCH (21:48)
[2017-03-07] MEDS: ATORVASTATIN CA 10 MG TABLET (FP) PO SCH (21:48)
--- NOTE | 2017-03-08 02:26 | RAPID ---
Physical Examination Vital Signs: Vital Signs Temperature 97.8 F 03/07/17 22:00 Pulse Rate 84 03/07/17 22:00 Respiratory Rate 14 03/08/17 01:20 Blood Pressure 125/68 03/07/17 22:00 O2 Sat by Pulse Oximetry (%) 98 03/07/17 21:00 Findings/Remarks: Rapid response called by nurse for agitation, shortness of breath and diaphoresis. Patient is trached and vented but respond to verbal commands by nodding and stated feeling better after suction. Constitutional: Yes: Anxious, Cachectic, Moderate Distress Cardiovascular: Yes: Tachycardia, Pulse Irregular Respiratory: Yes: Other (diminished breath sound on L) Labs: CBC, BMP 03/05/17 06:30 03/05/17 06:30 Rapid Response - Rapid Response Assessment: Acute respiratory distress - 2/2 mucus plug in trach tube - Frequent suction with cudet cath - Cont. current vent settings - Stat CXR
[2017-03-08] MEDS: MEROPENEM 500 MG in DEXTROSE 5%-WATER - 100 ML IVPB SCH ×2 (02:28→11:11)
[2017-03-08] MEDS: ACETYLCYSTEINE 20% 200MG/ML 4 ML VIAL *FOR ORAL / INH USE ONLY IH SCH ×4 (06:56→23:23)
[2017-03-08] MEDS: ALBUTEROL SO4 0.083% IH SOL 2.5 MG/3 ML VIAL.NEB. NEB PRN ×3 (06:56→23:23)
[2017-03-08] MEDS: SODIUM CHLORIDE 0.45%/POT 1,000 ML IV SCH ×3 (08:07→23:19)
--- NOTE | 2017-03-08 10:05 | PN ---
Progress Note, Physician Chief Complaint: UTI,Anemia, Pneumonia History of Present Illness: NAD, in bed, mechanically vented, alert -no Bronchoscopy indicated as per pulmonary day#6 meropenem, to complete 7 days of IV abx as per ID -events overnight noted, repeat CXR improved aeration in left hemothorax - Current Medication List Current Medications: Active Medications Acetaminophen (Tylenol -) 650 mg PO Q6H PRN PRN Reason: FEVER OR PAIN Last Admin: 03/07/17 10:31 Dose: 650 mg Acetylcysteine (Mucomyst 20 Oral / Inh Use Only*) 400 mg IH QIDR [facility] Last Admin: 03/08/17 06:56 Dose: 400 mg Albuterol Sulfate (Ventolin 0.083% Nebulizer Soln -) 1 amp NEB Q4H PRN PRN Reason: SHORT OF BREATH/WHEEZING Last Admin: 03/08/17 06:56 Dose: 1 amp Apixaban (Eliquis -) 2.5 mg PO BID [facility] Last Admin: 03/07/17 23:44 Dose: 2.5 mg Artificial Tears (Artificial Tears) 1 drop OU BID PRN PRN Reason: DRY EYES Ascorbic Acid (Vitamin C -) 250 mg PO DAILY [facility] Last Admin: 03/07/17 10:28 Dose: 250 mg Atorvastatin Calcium (Lipitor -) 10 mg PO HS [facility] Last Admin: 03/07/17 21:48 Dose: 10 mg Bacitracin (Bacitracin -) 1 applic TP DAILY [facility] Last Admin: 03/07/17 10:27 Dose: 1 applic Ferrous Sulfate (Feosol -) 325 mg PO BID [facility] Last Admin: 03/07/17 21:48 Dose: 325 mg Meropenem 500 mg/ Dextrose 100 mls @ 200 mls/hr IVPB Q8H-IV [facility] Last Admin: 03/08/17 02:28 Dose: 200 mls/hr Potassium Chloride/Sodium Chloride (1/2ns+20meq Kcl) 1,000 mls @ 75 mls/hr IV ASDIR [facility] Last Admin: 03/08/17 08:07 Dose: 75 mls/hr Lactobacillus Acidophilus (Bacid -) 1 tab PO DAILY [facility] Last Admin: 03/07/17 10:26 Dose: 1 tab Loratadine (Claritin -) 10 mg PO DAILY [facility] Last Admin: 03/07/17 10:27 Dose: 10 mg Mirtazapine (Remeron -) 15 mg PO HS [facility] Last Admin: 03/07/17 21:48 Dose: 15 mg Nystatin (Nystop Powder -) 1 applic TP DAILY [facility] Last Admin: 03/07/17 10:27 Dose: 1 applic Pantoprazole Sodium (Protonix -) 40 mg PO DAILY [facility] Last Admin: 03/07/17 10:28 Dose: 40 mg - Objective Vital Signs: Vital Signs Temperature 98.5 F 03/08/17 06:00 Pulse Rate 89 03/08/17 06:00 Respiratory Rate 15 03/08/17 06:54 Blood Pressure 138/68 03/08/17 06:00 O2 Sat by Pulse Oximetry (%) 98 03/07/17 21:00 Constitutional: Yes: Well Nourished, No Distress, Calm Cardiovascular: Yes: Regular Rate and Rhythm Respiratory: Yes: Regular Gastrointestinal: Yes: Normal Bowel Sounds Musculoskeletal: Yes: WNL Extremities: Yes: WNL Edema: No Peripheral Pulses WNL: Yes Neurological: Yes: Alert, Oriented Psychiatric: Yes: Alert, Oriented Labs: CBC, BMP 03/05/17 06:30 03/05/17 06:30 INR, PTT INR 1.32 (0.82-1.09) H 02/26/17 17:45 Problem List - Problems (1) Anemia Assessment/Plan: much improved Code(s): D64.9 - ANEMIA, UNSPECIFIED Qualifiers: Anemia type: iron deficiency (2) Chronic respiratory failure Assessment/Plan: -on mechanical ventilation -repeat CXR today worsening of left lung atelectasis -pulmonary on board -on mucomyst QID Code(s): J96.10 - CHRONIC RESPIRATORY FAILURE, UNSP W HYPOXIA OR HYPERCAPNIA Qualifiers: Respiratory failure complication: hypercapnia Qualified Code(s): J96.12 - Chronic respiratory failure with hypercapnia (3) Pneumonia Assessment/Plan: ID and pulmonary consult IV abx Code(s): J18.9 - PNEUMONIA, UNSPECIFIED ORGANISM Qualifiers: Pneumonia type: due to unspecified organism Laterality: left Lung location: lower lobe of lung Qualified Code(s): J18.1 - Lobar pneumonia, unspecified organism (4) UTI (urinary tract infection) Assessment/Plan: UC positive for proteus mirabilus esbl -ID consult -IV abx Code(s): N39.0 - URINARY TRACT INFECTION, SITE NOT SPECIFIED Qualifiers: Urinary tract infection type: site unspecified Hematuria presence: without hematuria Qualified Code(s): N39.0 - Urinary tract infection, site not specified; R31.9 - Hematuria, unspecified (5) Fever Assessment/Plan: -afebrile -repeat BC negative -seen by ID -tylenol for fever over 100.0F Code(s): R50.9 - FEVER, UNSPECIFIED (6) Functional quadriplegia Code(s): R53.2 - FUNCTIONAL QUADRIPLEGIA (7) Leukocytosis Assessment/Plan: -normalized -BC negative -IV abx -ID consult Code(s): D72.829 - ELEVATED WHITE BLOOD CELL COUNT, UNSPECIFIED Assessment/Plan see problem list
[2017-03-08] MEDS: NYSTATIN POWDER 100,000 UNITS/GM - 15 GM TOPICAL POWDER TP SCH (10:24)
[2017-03-08] MEDS: LORATADINE 10 MG TABLET PO SCH (11:12)
[2017-03-08] MEDS: FERROUS SO4 325 MG TABLET (FP) PO SCH ×2 (11:12→23:18)
[2017-03-08] MEDS: LACTOBACILLUS ACIDOPHILUS 1 EACH TAB (FP) PO SCH (11:12)
[2017-03-08] MEDS: PANTOPRAZOLE 40 MG TABLET (FP) PO SCH (11:12)
[2017-03-08] MEDS: APIXABAN 2.5 MG TABLET PO SCH ×2 (11:12→23:18)
[2017-03-08] MEDS: ASCORBIC ACID 250 MG TABLET (FP) PO SCH (11:12)
--- NOTE | 2017-03-08 12:09 | PN ---
Progress Note (short form) - Note Progress Note: PULMONARY Remains afebilre. Awake, vented on volume assist control. Repeat CXR overnight showing improvement in left atelectasis. Last Vital Signs Temp Pulse Resp BP Pulse Ox 98.7 F 92 H 16 113/57 98 03/08/17 10:00 03/08/17 10:00 03/08/17 10:00 03/08/17 10:00 03/07/17 21:00 Gen: vented, awake Heart: RRR Lung: scattered rhonchi, wheezes Abd: soft, nontender Ext: no edema CBC, BMP 03/05/17 06:30 03/05/17 06:30 Active Medications Acetaminophen (Tylenol -) 650 mg PO Q6H PRN PRN Reason: FEVER OR PAIN Last Admin: 03/07/17 10:31 Dose: 650 mg Acetylcysteine (Mucomyst 20 Oral / Inh Use Only*) 400 mg IH QIDR [facility] Last Admin: 03/08/17 06:56 Dose: 400 mg Albuterol Sulfate (Ventolin 0.083% Nebulizer Soln -) 1 amp NEB Q4H PRN PRN Reason: SHORT OF BREATH/WHEEZING Last Admin: 03/08/17 06:56 Dose: 1 amp Apixaban (Eliquis -) 2.5 mg PO BID [facility] Last Admin: 03/08/17 11:12 Dose: 2.5 mg Artificial Tears (Artificial Tears) 1 drop OU BID PRN PRN Reason: DRY EYES Ascorbic Acid (Vitamin C -) 250 mg PO DAILY [facility] Last Admin: 03/08/17 11:12 Dose: 250 mg Atorvastatin Calcium (Lipitor -) 10 mg PO HS [facility] Last Admin: 03/07/17 21:48 Dose: 10 mg Bacitracin (Bacitracin -) 1 applic TP DAILY [facility] Last Admin: 03/07/17 10:27 Dose: 1 applic Ferrous Sulfate (Feosol -) 325 mg PO BID [facility] Last Admin: 03/08/17 11:12 Dose: 325 mg Meropenem 500 mg/ Dextrose 100 mls @ 200 mls/hr IVPB Q8H-IV [facility] Last Admin: 03/08/17 11:11 Dose: 200 mls/hr Potassium Chloride/Sodium Chloride (1/2ns+20meq Kcl) 1,000 mls @ 75 mls/hr IV ASDIR [facility] Last Admin: 03/08/17 08:07 Dose: 75 mls/hr Lactobacillus Acidophilus (Bacid -) 1 tab PO DAILY [facility] Last Admin: 03/08/17 11:12 Dose: 1 tab Loratadine (Claritin -) 10 mg PO DAILY [facility] Last Admin: 03/08/17 11:12 Dose: 10 mg Mirtazapine (Remeron -) 15 mg PO HS [facility] Last Admin: 03/07/17 21:48 Dose: 15 mg Nystatin (Nystop Powder -) 1 applic TP DAILY [facility] Last Admin: 03/07/17 10:27 Dose: 1 applic Pantoprazole Sodium (Protonix -) 40 mg PO DAILY [facility] Last Admin: 03/08/17 11:12 Dose: 40 mg A/P Acute on Chronic Hypoxic and Hypercapneic Respiratory Failure s/p Tracheostomy Pneumonia UTI Atelectasis Atrial Fibrillation COPD CHF - antibiotics per ID - monitor fever curve, WBC trend - chest PT, pulmonary toilet - mucomyst - if atelectasis recurs without improvement from above, can consider bronchoscopy - DVT prophylaxis
--- NOTE | 2017-03-08 12:32 | PN ---
Progress Note (short form) - Note Progress Note: ALERT TRACH TO VENT day #7 meropenem Vital Signs Period Temp Pulse Resp BP Sys/Vera Pulse Ox Last 24 Hr 97.8 F-99.3 F 80-92 14-21 107-138/57-76 98-98 cor-rrr lungs decreased bs at bases abd soft,nt +GT ext no edema CBC, BMP 03/05/17 06:30 03/05/17 06:30 Microbiology 03/01/17 11:30 Blood - Peripheral Venous Blood Culture - Final NO GROWTH AFTER 5 DAYS INCUBATION 03/01/17 11:45 Blood - Peripheral Venous Blood Culture - Final NO GROWTH AFTER 5 DAYS INCUBATION 02/27/17 20:25 Blood - Peripheral Venous Blood Culture - Final NO GROWTH AFTER 5 DAYS INCUBATION 02/27/17 20:25 Blood - Peripheral Venous Blood Culture - Final NO GROWTH AFTER 5 DAYS INCUBATION 02/26/17 17:45 Blood - Peripheral Venous Blood Culture - Final NO GROWTH AFTER 5 DAYS INCUBATION 02/27/17 07:45 Sputum - Endotracheal Suction W/O Vent Gram Stain - Final 02/27/17 07:45 Sputum - Endotracheal Suction W/O Vent Sputum Culture - Final Morganella Morganii Pseudomonas Aeruginosa Morganella Morganii#2 02/26/17 20:02 Urine - Urine - Catheterized Urine Culture - Final Proteus Mirabilus - Esbl Produ 02/26/17 17:45 Blood - Peripheral Venous Blood Culture - Final Staphylococcus Epidermidis A/P Intermittent atelectasis of the left lung- management per pulmonary BLOOD CULTURE- LIKELY CONTAMINANT day #7/7 meropenem to complete 7 days d/c after todays dose
[2017-03-08] MEDS: BACITRACIN 15 GM TUBE TOPICAL OINTMENT TP SCH (14:23)
[2017-03-08] MEDS ORDERED: ALBUTEROL SO4 0.083% IH SOL 2.5 MG/3 ML VIAL.NEB. NEB ONE (17:42)
[2017-03-08] MEDS: ATORVASTATIN CA 10 MG TABLET (FP) PO SCH (23:18)
[2017-03-08] MEDS: MIRTAZAPINE 15 MG TABLET (FP) PO SCH (23:18)
[2017-03-09] MEDS: ACETYLCYSTEINE 20% 200MG/ML 4 ML VIAL *FOR ORAL / INH USE ONLY IH SCH ×4 (07:14→23:32)
[2017-03-09] MEDS: ALBUTEROL SO4 0.083% IH SOL 2.5 MG/3 ML VIAL.NEB. NEB PRN ×4 (07:14→23:32)
--- NOTE | 2017-03-09 10:32 | PN ---
Progress Note, Physician Chief Complaint: UTI,Anemia, Pneumonia History of Present Illness: NAD, in bed, mechanically vented, alert -no Bronchoscopy indicated as per pulmonary day#6 meropenem, to complete 7 days of IV abx as per ID -no events overnight, repeat CXR improved aeration in left hemothorax on 03/08/17 - Current Medication List Current Medications: Active Medications Acetaminophen (Tylenol -) 650 mg PO Q6H PRN PRN Reason: FEVER OR PAIN Last Admin: 03/07/17 10:31 Dose: 650 mg Acetylcysteine (Mucomyst 20 Oral / Inh Use Only*) 400 mg IH QIDR [facility] Last Admin: 03/09/17 07:14 Dose: 400 mg Albuterol Sulfate (Ventolin 0.083% Nebulizer Soln -) 1 amp NEB Q4H PRN PRN Reason: SHORT OF BREATH/WHEEZING Last Admin: 03/09/17 07:14 Dose: 1 amp Apixaban (Eliquis -) 2.5 mg PO BID [facility] Last Admin: 03/08/17 23:18 Dose: 2.5 mg Artificial Tears (Artificial Tears) 1 drop OU BID PRN PRN Reason: DRY EYES Ascorbic Acid (Vitamin C -) 250 mg PO DAILY [facility] Last Admin: 03/08/17 11:12 Dose: 250 mg Atorvastatin Calcium (Lipitor -) 10 mg PO HS [facility] Last Admin: 03/08/17 23:18 Dose: 10 mg Bacitracin (Bacitracin -) 1 applic TP DAILY [facility] Last Admin: 03/08/17 14:23 Dose: 1 applic Ferrous Sulfate (Feosol -) 325 mg PO BID [facility] Last Admin: 03/08/17 23:18 Dose: 325 mg Potassium Chloride/Sodium Chloride (1/2ns+20meq Kcl) 1,000 mls @ 75 mls/hr IV ASDIR [facility] Last Admin: 03/08/17 23:19 Dose: 75 mls/hr Lactobacillus Acidophilus (Bacid -) 1 tab PO DAILY [facility] Last Admin: 03/08/17 11:12 Dose: 1 tab Loratadine (Claritin -) 10 mg PO DAILY [facility] Last Admin: 03/08/17 11:12 Dose: 10 mg Mirtazapine (Remeron -) 15 mg PO HS [facility] Last Admin: 03/08/17 23:18 Dose: 15 mg Nystatin (Nystop Powder -) 1 applic TP DAILY [facility] Last Admin: 03/08/17 10:24 Dose: 1 applic Pantoprazole Sodium (Protonix -) 40 mg PO DAILY [facility] Last Admin: 03/08/17 11:12 Dose: 40 mg - Objective Vital Signs: Vital Signs Temperature 99.1 F 03/09/17 06:00 Pulse Rate 77 03/09/17 06:00 Respiratory Rate 14 03/09/17 10:00 Blood Pressure 106/46 03/09/17 06:00 O2 Sat by Pulse Oximetry (%) 98 03/07/17 21:00 Constitutional: Yes: Well Nourished, No Distress, Calm Cardiovascular: Yes: Pulse Irregular Respiratory: Yes: Diminished (LL), Mechanically Ventilated Gastrointestinal: Yes: Normal Bowel Sounds Genitourinary: Yes: Incontinence Musculoskeletal: Yes: WNL Extremities: Yes: WNL Edema: No Peripheral Pulses WNL: Yes Neurological: Yes: Alert, Oriented Psychiatric: Yes: Alert, Oriented Labs: CBC, BMP 03/05/17 06:30 03/05/17 06:30 INR, PTT INR 1.32 (0.82-1.09) H 02/26/17 17:45 Problem List - Problems (1) Anemia Assessment/Plan: much improved Code(s): D64.9 - ANEMIA, UNSPECIFIED Qualifiers: Anemia type: iron deficiency (2) Chronic respiratory failure Assessment/Plan: -on mechanical ventilation -repeat CXR today worsening of left lung atelectasis -pulmonary on board -on mucomyst QID Code(s): J96.10 - CHRONIC RESPIRATORY FAILURE, UNSP W HYPOXIA OR HYPERCAPNIA Qualifiers: Respiratory failure complication: hypercapnia Qualified Code(s): J96.12 - Chronic respiratory failure with hypercapnia (3) Pneumonia Assessment/Plan: ID and pulmonary consult IV abx Code(s): J18.9 - PNEUMONIA, UNSPECIFIED ORGANISM Qualifiers: Pneumonia type: due to unspecified organism Laterality: left Lung location: lower lobe of lung Qualified Code(s): J18.1 - Lobar pneumonia, unspecified organism (4) UTI (urinary tract infection) Assessment/Plan: UC positive for proteus mirabilus esbl Completed 7 days of IV meropenem monitor off abx Code(s): N39.0 - URINARY TRACT INFECTION, SITE NOT SPECIFIED Qualifiers: Urinary tract infection type: site unspecified Hematuria presence: without hematuria Qualified Code(s): N39.0 - Urinary tract infection, site not specified; R31.9 - Hematuria, unspecified (5) Fever Assessment/Plan: -afebrile -repeat BC negative -seen by ID -tylenol for fever over 100.0F Code(s): R50.9 - FEVER, UNSPECIFIED (6) Functional quadriplegia Code(s): R53.2 - FUNCTIONAL QUADRIPLEGIA (7) Leukocytosis Assessment/Plan: -normalized -BC negative -IV abx -ID consult -repeat labs in AM Code(s): D72.829 - ELEVATED WHITE BLOOD CELL COUNT, UNSPECIFIED (8) Atelectasis of left lung Assessment/Plan: -repeat CXR yesterday showed some improvement in aeration -repeat CXR in AM -on mucomyst -if no improvement in atelectasis, may need bronchoscopy as per pulmonary Code(s): J98.11 - ATELECTASIS Assessment/Plan see problem list
[2017-03-09] MEDS ORDERED: PT OWN MED DRAWER 7, Y5N ONE ×2 (10:59→11:31)
[2017-03-09] MEDS: LORATADINE 10 MG TABLET PO SCH (11:03)
[2017-03-09] MEDS: APIXABAN 2.5 MG TABLET PO SCH ×2 (11:03→22:11)
[2017-03-09] MEDS: FERROUS SO4 325 MG TABLET (FP) PO SCH ×2 (11:04→22:10)
[2017-03-09] MEDS: LACTOBACILLUS ACIDOPHILUS 1 EACH TAB (FP) PO SCH (11:04)
[2017-03-09] MEDS: BACITRACIN 15 GM TUBE TOPICAL OINTMENT TP SCH (11:04)
[2017-03-09] MEDS: ASCORBIC ACID 250 MG TABLET (FP) PO SCH (11:05)
[2017-03-09] MEDS: PANTOPRAZOLE 40 MG TABLET (FP) PO SCH (11:05)
[2017-03-09] MEDS: NYSTATIN POWDER 100,000 UNITS/GM - 15 GM TOPICAL POWDER TP SCH (11:05)
--- NOTE | 2017-03-09 13:42 | PN ---
Progress Note (short form) - Note Progress Note: PULMONARY AWAKE/VENTED VSS/AFEBRILE TRACH/ANICTERIC DIMINISHED BREATH SOUNDS LEFT S1S2 BS+ NO EDEMA LABS/MEDS/NOTES/IMAGING/MICRO REVIEWED A/P Acute on Chronic Hypoxic and Hypercapneic Respiratory Failure s/p Tracheostomy Pneumonia UTI Atelectasis Atrial Fibrillation COPD CHF - antibiotics per ID - monitor fever curve, WBC trend - chest PT, pulmonary toilet - mucomyst - if atelectasis recurs without improvement from above, can consider bronchoscopy - DVT prophylaxis Brandi FLOREZ MD
[2017-03-09] MEDS: SODIUM CHLORIDE 0.45%/POT 1,000 ML IV SCH (16:39)
[2017-03-09] MEDS: MIRTAZAPINE 15 MG TABLET (FP) PO SCH (22:10)
[2017-03-09] MEDS: ATORVASTATIN CA 10 MG TABLET (FP) PO SCH (22:11)
[2017-03-10] MEDS: SODIUM CHLORIDE 0.45%/POT 1,000 ML IV SCH ×2 (06:48→22:20)
[2017-03-10] MEDS: ACETYLCYSTEINE 20% 200MG/ML 4 ML VIAL *FOR ORAL / INH USE ONLY IH SCH ×3 (07:00→19:00)
[2017-03-10 09:02] LABS: BASOPHIL 1.1 % (0-2.0); EOSINOPHIL 3.7 % (0-4.5); MEAN CELL VOLUME 81.3 fl (80-96); MEAN PLT VOLUME 8.4 fl (7.5-11.1); PLATELET COUNT 206 K/MM3 (134-434); RDW 17.7 % (11.6-15.6); WHITE BLOOD COUNT 7.7 K/mm3 (4.0-10.0)
[2017-03-10 09:14] LABS: ANION GAP 7 (8-16); CALCIUM 8.3 mg/dL (8.5-10.1); CO2 31 mmol/L (21-32); GLUCOSE,RANDOM 72 mg/dL (74-106)
[2017-03-10 09:19] LABS: ALK PHOS 81 U/L (45-117); BILIRUBIN,TOTAL 0.5 mg/dL (0.2-1.0); CREATININE 0.4 mg/dL (0.55-1.02); SGOT/AST 10 U/L (15-37); SGPT/ALT 13 U/L (12-78); TOT PROT 5.7 g/dl (6.4-8.2)
[2017-03-10] MEDS ORDERED: PT OWN MED DRAWER 7, Y5N ONE ×4 (10:47→22:24)
[2017-03-10] MEDS: BACITRACIN 15 GM TUBE TOPICAL OINTMENT TP SCH (11:00)
[2017-03-10] MEDS: LORATADINE 10 MG TABLET PO SCH (11:01)
[2017-03-10] MEDS: APIXABAN 2.5 MG TABLET PO SCH ×2 (11:01→22:25)
[2017-03-10] MEDS: ASCORBIC ACID 250 MG TABLET (FP) PO SCH (11:01)
[2017-03-10] MEDS: LACTOBACILLUS ACIDOPHILUS 1 EACH TAB (FP) PO SCH (11:01)
[2017-03-10] MEDS: FERROUS SO4 325 MG TABLET (FP) PO SCH ×2 (11:01→22:20)
[2017-03-10] MEDS: NYSTATIN POWDER 100,000 UNITS/GM - 15 GM TOPICAL POWDER TP SCH (11:02)
[2017-03-10] MEDS: PANTOPRAZOLE 40 MG TABLET (FP) PO SCH (11:02)
[2017-03-10] MEDS: ALBUTEROL SO4 0.083% IH SOL 2.5 MG/3 ML VIAL.NEB. NEB PRN ×2 (11:56→19:00)
--- NOTE | 2017-03-10 14:19 | PN ---
Progress Note (short form) - Note Progress Note: PULMONARY No fevers recorded. Awake, vented on volume assist control. Last Vital Signs Temp Pulse Resp BP Pulse Ox 98.6 F 79 15 109/53 97 03/10/17 10:47 03/10/17 10:47 03/10/17 10:47 03/10/17 10:47 03/09/17 18:15 Gen: vented, awake Heart: RRR Lung: scattered rhonchi, wheezes Abd: soft, nontender Ext: no edema CBC, BMP 03/10/17 08:00 03/10/17 08:00 Active Medications Acetaminophen (Tylenol -) 650 mg PO Q6H PRN PRN Reason: FEVER OR PAIN Last Admin: 03/07/17 10:31 Dose: 650 mg Acetylcysteine (Mucomyst 20 Oral / Inh Use Only*) 400 mg IH QIDR [facility] Last Admin: 03/10/17 11:56 Dose: 400 mg Albuterol Sulfate (Ventolin 0.083% Nebulizer Soln -) 1 amp NEB Q4H PRN PRN Reason: SHORT OF BREATH/WHEEZING Last Admin: 03/10/17 11:56 Dose: 1 amp Apixaban (Eliquis -) 2.5 mg PO BID [facility] Last Admin: 03/10/17 11:01 Dose: 2.5 mg Artificial Tears (Artificial Tears) 1 drop OU BID PRN PRN Reason: DRY EYES Ascorbic Acid (Vitamin C -) 250 mg PO DAILY [facility] Last Admin: 03/10/17 11:01 Dose: 250 mg Atorvastatin Calcium (Lipitor -) 10 mg PO HS [facility] Last Admin: 03/09/17 22:11 Dose: 10 mg Bacitracin (Bacitracin -) 1 applic TP DAILY [facility] Last Admin: 03/09/17 11:04 Dose: 1 applic Ferrous Sulfate (Feosol -) 325 mg PO BID [facility] Last Admin: 03/10/17 11:01 Dose: 325 mg Potassium Chloride/Sodium Chloride (1/2ns+20meq Kcl) 1,000 mls @ 75 mls/hr IV ASDIR [facility] Last Admin: 03/10/17 06:48 Dose: 75 mls/hr Lactobacillus Acidophilus (Bacid -) 1 tab PO DAILY [facility] Last Admin: 03/10/17 11:01 Dose: 1 tab Loratadine (Claritin -) 10 mg PO DAILY [facility] Last Admin: 03/10/17 11:01 Dose: 10 mg Mirtazapine (Remeron -) 15 mg PO HS [facility] Last Admin: 03/09/17 22:10 Dose: 15 mg Nystatin (Nystop Powder -) 1 applic TP DAILY [facility] Last Admin: 03/10/17 11:02 Dose: 1 applic Pantoprazole Sodium (Protonix -) 40 mg PO DAILY [facility] Last Admin: 03/10/17 11:02 Dose: 40 mg A/P Acute on Chronic Hypoxic and Hypercapneic Respiratory Failure s/p Tracheostomy Pneumonia UTI Atelectasis Atrial Fibrillation COPD CHF - antibiotics per ID - monitor fever curve, WBC trend - chest PT, pulmonary toilet - mucomyst - if atelectasis recurs without improvement from above, can consider bronchoscopy - DVT prophylaxis
--- NOTE | 2017-03-10 16:30 | PN ---
Progress Note, Physician Chief Complaint: UTI, Anemia, Pneumonia History of Present Illness: Patient comfortably lying in bed, afebrile, denies any pain. - Current Medication List Current Medications: Active Medications Acetaminophen (Tylenol -) 650 mg PO Q6H PRN PRN Reason: FEVER OR PAIN Last Admin: 03/07/17 10:31 Dose: 650 mg Acetylcysteine (Mucomyst 20 Oral / Inh Use Only*) 400 mg IH QIDR [facility] Last Admin: 03/10/17 11:56 Dose: 400 mg Albuterol Sulfate (Ventolin 0.083% Nebulizer Soln -) 1 amp NEB Q4H PRN PRN Reason: SHORT OF BREATH/WHEEZING Last Admin: 03/10/17 11:56 Dose: 1 amp Apixaban (Eliquis -) 2.5 mg PO BID [facility] Last Admin: 03/10/17 11:01 Dose: 2.5 mg Artificial Tears (Artificial Tears) 1 drop OU BID PRN PRN Reason: DRY EYES Ascorbic Acid (Vitamin C -) 250 mg PO DAILY [facility] Last Admin: 03/10/17 11:01 Dose: 250 mg Atorvastatin Calcium (Lipitor -) 10 mg PO HS [facility] Last Admin: 03/09/17 22:11 Dose: 10 mg Bacitracin (Bacitracin -) 1 applic TP DAILY [facility] Last Admin: 03/09/17 11:04 Dose: 1 applic Ferrous Sulfate (Feosol -) 325 mg PO BID [facility] Last Admin: 03/10/17 11:01 Dose: 325 mg Potassium Chloride/Sodium Chloride (1/2ns+20meq Kcl) 1,000 mls @ 75 mls/hr IV ASDIR [facility] Last Admin: 03/10/17 06:48 Dose: 75 mls/hr Lactobacillus Acidophilus (Bacid -) 1 tab PO DAILY [facility] Last Admin: 03/10/17 11:01 Dose: 1 tab Loratadine (Claritin -) 10 mg PO DAILY [facility] Last Admin: 03/10/17 11:01 Dose: 10 mg Mirtazapine (Remeron -) 15 mg PO HS [facility] Last Admin: 03/09/17 22:10 Dose: 15 mg Nystatin (Nystop Powder -) 1 applic TP DAILY [facility] Last Admin: 03/10/17 11:02 Dose: 1 applic Pantoprazole Sodium (Protonix -) 40 mg PO DAILY [facility] Last Admin: 03/10/17 11:02 Dose: 40 mg - Objective Vital Signs: Vital Signs Temperature 99.3 F 03/10/17 14:11 Pulse Rate 83 03/10/17 14:11 Respiratory Rate 17 03/10/17 14:11 Blood Pressure 101/55 03/10/17 14:11 O2 Sat by Pulse Oximetry (%) 97 03/09/17 18:15 Constitutional: Yes: Calm Eyes: Yes: Conjunctiva Clear, EOM Intact HENT: Yes: Normocephalic Neck: Yes: Supple Cardiovascular: Yes: Regular Rate and Rhythm Respiratory: Yes: Rhonchi, Wheezes (scattered rhonchi and occasional wheezes) Gastrointestinal: Yes: Normal Bowel Sounds, Soft Edema: No Peripheral Pulses WNL: Yes Neurological: Yes: Alert, Oriented Psychiatric: Yes: Alert, Oriented Labs: CBC, BMP 03/10/17 08:00 03/10/17 08:00 INR, PTT INR 1.32 (0.82-1.09) H 02/26/17 17:45 Problem List - Problems (1) Anemia Code(s): D64.9 - ANEMIA, UNSPECIFIED Qualifiers: Anemia type: iron deficiency (2) Atelectasis Code(s): J98.11 - ATELECTASIS (3) Chronic respiratory failure Code(s): J96.10 - CHRONIC RESPIRATORY FAILURE, UNSP W HYPOXIA OR HYPERCAPNIA Qualifiers: Respiratory failure complication: hypercapnia Qualified Code(s): J96.12 - Chronic respiratory failure with hypercapnia (4) Leukocytosis Code(s): D72.829 - ELEVATED WHITE BLOOD CELL COUNT, UNSPECIFIED (5) Pneumonia Code(s): J18.9 - PNEUMONIA, UNSPECIFIED ORGANISM Qualifiers: Pneumonia type: due to unspecified organism Laterality: left Lung location: lower lobe of lung Qualified Code(s): J18.1 - Lobar pneumonia, unspecified organism (6) UTI (urinary tract infection) Code(s): N39.0 - URINARY TRACT INFECTION, SITE NOT SPECIFIED Qualifiers: Urinary tract infection type: site unspecified Hematuria presence: without hematuria Qualified Code(s): N39.0 - Urinary tract infection, site not specified; R31.9 - Hematuria, unspecified Assessment/Plan (1) Anemia Assessment/Plan: -improved -monitor CBC Code(s): D64.9 - ANEMIA, UNSPECIFIED Qualifiers: Anemia type: iron deficiency (2) Chronic respiratory failure Assessment/Plan: -on mechanical ventilation -pulmonary consult appreciated -on mucomyst QID -for possible bronchoscopy if atelectasis recurs without improvement -continue cheswt PT Code(s): J96.10 - CHRONIC RESPIRATORY FAILURE, UNSP W HYPOXIA OR HYPERCAPNIA Qualifiers: Respiratory failure complication: hypercapnia Qualified Code(s): J96.12 - Chronic respiratory failure with hypercapnia (3) Pneumonia Assessment/Plan: -IV abx completed -ID on board Code(s): J18.9 - PNEUMONIA, UNSPECIFIED ORGANISM Qualifiers: Pneumonia type: due to unspecified organism Laterality: left Lung location: lower lobe of lung Qualified Code(s): J18.1 - Lobar pneumonia, unspecified organism (4) UTI (urinary tract infection) Assessment/Plan: -IV abx completed -continue to monitor Code(s): N39.0 - URINARY TRACT INFECTION, SITE NOT SPECIFIED Qualifiers: Urinary tract infection type: site unspecified Hematuria presence: without hematuria Qualified Code(s): N39.0 - Urinary tract infection, site not specified; R31.9 - Hematuria, unspecified (5) Fever Assessment/Plan: -afebrile -tylenol for fever over 100.0F Code(s): R50.9 - FEVER, UNSPECIFIED (6) Functional quadriplegia Code(s): R53.2 - FUNCTIONAL QUADRIPLEGIA (7) Leukocytosis Assessment/Plan: -resolved. -continue to monitor Code(s): D72.829 - ELEVATED WHITE BLOOD CELL COUNT, UNSPECIFIED (8) Atelectasis of left lung Assessment/Plan: -repeat CXR 03/10 showed progressive findings L hemithorax -pilmo on board -if no improvement in atelectasis, may need bronchoscopy as per pulmonary Code(s): J98.11 - ATELECTASIS
[2017-03-10] MEDS: ATORVASTATIN CA 10 MG TABLET (FP) PO SCH (22:20)
[2017-03-10] MEDS: MIRTAZAPINE 15 MG TABLET (FP) PO SCH (22:20)
[2017-03-11] MEDS: ALBUTEROL SO4 0.083% IH SOL 2.5 MG/3 ML VIAL.NEB. NEB PRN ×4 (00:03→23:03)
[2017-03-11] MEDS: ACETYLCYSTEINE 20% 200MG/ML 4 ML VIAL *FOR ORAL / INH USE ONLY IH SCH ×4 (00:03→23:03)
[2017-03-11 08:50] LABS: EOSINOPHIL 3.6 % (0-4.5); MCH 26.2 pg (25.7-33.7); MCHC 32.2 g/dl (32.0-36.0); MEAN CELL VOLUME 81.2 fl (80-96); MEAN PLT VOLUME 8.4 fl (7.5-11.1); NEUTROPHILS 67.6 % (42.8-82.8); PLATELET COUNT 188 K/MM3 (134-434); RDW 17.8 % (11.6-15.6); WHITE BLOOD COUNT 6.4 K/mm3 (4.0-10.0)
[2017-03-11 09:20] LABS: ALBUMIN 2.1 g/dl (3.4-5.0); ANION GAP 5 (8-16); CALCIUM 8.6 mg/dL (8.5-10.1); CO2 33 mmol/L (21-32); GLUCOSE,RANDOM 81 mg/dL (74-106); SGOT/AST 10 U/L (15-37); SGPT/ALT 10 U/L (12-78)
[2017-03-11 09:22] LABS: ALK PHOS 80 U/L (45-117); BILIRUBIN,TOTAL 0.7 mg/dL (0.2-1.0); CREATININE 0.4 mg/dL (0.55-1.02); TOT PROT 5.6 g/dl (6.4-8.2)
--- NOTE | 2017-03-11 10:55 | PN ---
Progress Note, Physician Chief Complaint: UTI, Anemia, Pneumonia, Chronic Respiratory Failure History of Present Illness: Patient comfortably lying in bed, alert and oriented, afebrile, denies any pain. - Current Medication List Current Medications: Active Medications Acetaminophen (Tylenol -) 650 mg PO Q6H PRN PRN Reason: FEVER OR PAIN Last Admin: 03/07/17 10:31 Dose: 650 mg Acetylcysteine (Mucomyst 20 Oral / Inh Use Only*) 400 mg IH QIDR [facility] Last Admin: 03/11/17 00:03 Dose: 400 mg Albuterol Sulfate (Ventolin 0.083% Nebulizer Soln -) 1 amp NEB Q4H PRN PRN Reason: SHORT OF BREATH/WHEEZING Last Admin: 03/11/17 00:03 Dose: 1 amp Apixaban (Eliquis -) 2.5 mg PO BID [facility] Last Admin: 03/10/17 22:25 Dose: 2.5 mg Artificial Tears (Artificial Tears) 1 drop OU BID PRN PRN Reason: DRY EYES Ascorbic Acid (Vitamin C -) 250 mg PO DAILY [facility] Last Admin: 03/10/17 11:01 Dose: 250 mg Atorvastatin Calcium (Lipitor -) 10 mg PO HS [facility] Last Admin: 03/10/17 22:20 Dose: 10 mg Bacitracin (Bacitracin -) 1 applic TP DAILY [facility] Last Admin: 03/09/17 11:04 Dose: 1 applic Ferrous Sulfate (Feosol -) 325 mg PO BID [facility] Last Admin: 03/10/17 22:20 Dose: 325 mg Potassium Chloride/Sodium Chloride (1/2ns+20meq Kcl) 1,000 mls @ 75 mls/hr IV ASDIR [facility] Last Admin: 03/10/17 22:20 Dose: 75 mls/hr Lactobacillus Acidophilus (Bacid -) 1 tab PO DAILY [facility] Last Admin: 03/10/17 11:01 Dose: 1 tab Loratadine (Claritin -) 10 mg PO DAILY [facility] Last Admin: 03/10/17 11:01 Dose: 10 mg Mirtazapine (Remeron -) 15 mg PO HS [facility] Last Admin: 03/10/17 22:20 Dose: 15 mg Nystatin (Nystop Powder -) 1 applic TP DAILY [facility] Last Admin: 03/10/17 11:02 Dose: 1 applic Pantoprazole Sodium (Protonix -) 40 mg PO DAILY [facility] Last Admin: 03/10/17 11:02 Dose: 40 mg - Objective Vital Signs: Vital Signs Temperature 98.6 F 03/11/17 05:22 Pulse Rate 74 03/11/17 05:22 Respiratory Rate 15 03/11/17 06:29 Blood Pressure 94/58 03/11/17 05:22 O2 Sat by Pulse Oximetry (%) 98 03/10/17 21:00 Constitutional: Yes: Calm Eyes: Yes: Conjunctiva Clear Neck: Yes: Supple Cardiovascular: Yes: Regular Rate and Rhythm, S1, S2 Respiratory: Yes: Regular, CTA Bilaterally, Rhonchi, Wheezes (occasional rhonchi and wheezes) Gastrointestinal: Yes: Normal Bowel Sounds, Soft Edema: No Peripheral Pulses WNL: Yes Neurological: Yes: Alert, Oriented Labs: CBC, BMP 03/11/17 07:59 03/11/17 07:59 INR, PTT INR 1.32 (0.82-1.09) H 02/26/17 17:45 Problem List - Problems (1) Anemia Code(s): D64.9 - ANEMIA, UNSPECIFIED Qualifiers: Anemia type: iron deficiency (2) Atelectasis Code(s): J98.11 - ATELECTASIS (3) Chronic respiratory failure Code(s): J96.10 - CHRONIC RESPIRATORY FAILURE, UNSP W HYPOXIA OR HYPERCAPNIA Qualifiers: Respiratory failure complication: hypercapnia Qualified Code(s): J96.12 - Chronic respiratory failure with hypercapnia (4) Leukocytosis Code(s): D72.829 - ELEVATED WHITE BLOOD CELL COUNT, UNSPECIFIED (5) Pneumonia Code(s): J18.9 - PNEUMONIA, UNSPECIFIED ORGANISM Qualifiers: Pneumonia type: due to unspecified organism Laterality: left Lung location: lower lobe of lung Qualified Code(s): J18.1 - Lobar pneumonia, unspecified organism (6) UTI (urinary tract infection) Code(s): N39.0 - URINARY TRACT INFECTION, SITE NOT SPECIFIED Qualifiers: Urinary tract infection type: site unspecified Hematuria presence: without hematuria Qualified Code(s): N39.0 - Urinary tract infection, site not specified; R31.9 - Hematuria, unspecified Assessment/Plan (1) Anemia Assessment/Plan: -improved -monitor CBC Code(s): D64.9 - ANEMIA, UNSPECIFIED Qualifiers: Anemia type: iron deficiency (2) Chronic respiratory failure Assessment/Plan: -on mechanical ventilation -pulmonary on board -on mucomyst QID -for possible bronchoscopy if atelectasis recurs without improvement -continue cheswt PT Code(s): J96.10 - CHRONIC RESPIRATORY FAILURE, UNSP W HYPOXIA OR HYPERCAPNIA Qualifiers: Respiratory failure complication: hypercapnia Qualified Code(s): J96.12 - Chronic respiratory failure with hypercapnia (3) Pneumonia Assessment/Plan: -IV abx completed -ID on board Code(s): J18.9 - PNEUMONIA, UNSPECIFIED ORGANISM Qualifiers: Pneumonia type: due to unspecified organism Laterality: left Lung location: lower lobe of lung Qualified Code(s): J18.1 - Lobar pneumonia, unspecified organism (4) UTI (urinary tract infection) Assessment/Plan: -IV abx completed -continue to monitor Code(s): N39.0 - URINARY TRACT INFECTION, SITE NOT SPECIFIED Qualifiers: Urinary tract infection type: site unspecified Hematuria presence: without hematuria Qualified Code(s): N39.0 - Urinary tract infection, site not specified; R31.9 - Hematuria, unspecified (5) Fever Assessment/Plan: -afebrile -tylenol for fever over 100.0F Code(s): R50.9 - FEVER, UNSPECIFIED (6) Functional quadriplegia Code(s): R53.2 - FUNCTIONAL QUADRIPLEGIA (7) Leukocytosis Assessment/Plan: -resolved. -continue to monitor Code(s): D72.829 - ELEVATED WHITE BLOOD CELL COUNT, UNSPECIFIED (8) Atelectasis of left lung Assessment/Plan: -repeat CXR 03/10 showed progressive findings L hemithorax -repeat CXR tomorrow -pilmo on board -if no improvement in atelectasis, may need bronchoscopy as per pulmonary Code(s): J98.11 - ATELECTASIS
[2017-03-11] MEDS: BACITRACIN 15 GM TUBE TOPICAL OINTMENT TP SCH (11:00)
[2017-03-11] MEDS ORDERED: PT OWN MED DRAWER 7, Y5N ONE ×3 (11:33→22:07)
[2017-03-11] MEDS: LACTOBACILLUS ACIDOPHILUS 1 EACH TAB (FP) PO SCH (11:36)
[2017-03-11] MEDS: ASCORBIC ACID 250 MG TABLET (FP) PO SCH (11:36)
[2017-03-11] MEDS: APIXABAN 2.5 MG TABLET PO SCH ×2 (11:36→22:23)
[2017-03-11] MEDS: LORATADINE 10 MG TABLET PO SCH (11:36)
[2017-03-11] MEDS: NYSTATIN POWDER 100,000 UNITS/GM - 15 GM TOPICAL POWDER TP SCH (11:36)
[2017-03-11] MEDS: FERROUS SO4 325 MG TABLET (FP) PO SCH ×2 (11:36→22:22)
[2017-03-11] MEDS: PANTOPRAZOLE 40 MG TABLET (FP) PO SCH (11:36)
--- NOTE | 2017-03-11 12:14 | PN ---
Progress Note (short form) - Note Progress Note: PULMONARY Awake, vented on volume assist control. Last Vital Signs Temp Pulse Resp BP Pulse Ox 98.6 F 74 19 94/58 98 03/11/17 05:22 03/11/17 11:18 03/11/17 11:18 03/11/17 05:22 03/11/17 11:18 Gen: vented, awake Heart: RRR Lung: scattered rhonchi, wheezes Abd: soft, nontender Ext: no edema CBC, BMP 03/11/17 07:59 03/11/17 07:59 Active Medications Acetaminophen (Tylenol -) 650 mg PO Q6H PRN PRN Reason: FEVER OR PAIN Last Admin: 03/07/17 10:31 Dose: 650 mg Acetylcysteine (Mucomyst 20 Oral / Inh Use Only*) 400 mg IH QIDR [facility] Last Admin: 03/11/17 00:03 Dose: 400 mg Albuterol Sulfate (Ventolin 0.083% Nebulizer Soln -) 1 amp NEB Q4H PRN PRN Reason: SHORT OF BREATH/WHEEZING Last Admin: 03/11/17 00:03 Dose: 1 amp Apixaban (Eliquis -) 2.5 mg PO BID [facility] Last Admin: 03/11/17 11:36 Dose: 2.5 mg Artificial Tears (Artificial Tears) 1 drop OU BID PRN PRN Reason: DRY EYES Ascorbic Acid (Vitamin C -) 250 mg PO DAILY [facility] Last Admin: 03/11/17 11:36 Dose: 250 mg Atorvastatin Calcium (Lipitor -) 10 mg PO HS [facility] Last Admin: 03/10/17 22:20 Dose: 10 mg Bacitracin (Bacitracin -) 1 applic TP DAILY [facility] Last Admin: 03/09/17 11:04 Dose: 1 applic Ferrous Sulfate (Feosol -) 325 mg PO BID [facility] Last Admin: 03/11/17 11:36 Dose: 325 mg Potassium Chloride/Sodium Chloride (1/2ns+20meq Kcl) 1,000 mls @ 75 mls/hr IV ASDIR [facility] Last Admin: 03/10/17 22:20 Dose: 75 mls/hr Lactobacillus Acidophilus (Bacid -) 1 tab PO DAILY [facility] Last Admin: 03/11/17 11:36 Dose: 1 tab Loratadine (Claritin -) 10 mg PO DAILY [facility] Last Admin: 03/11/17 11:36 Dose: 10 mg Mirtazapine (Remeron -) 15 mg PO HS [facility] Last Admin: 03/10/17 22:20 Dose: 15 mg Nystatin (Nystop Powder -) 1 applic TP DAILY [facility] Last Admin: 03/11/17 11:36 Dose: 1 applic Pantoprazole Sodium (Protonix -) 40 mg PO DAILY [facility] Last Admin: 03/11/17 11:36 Dose: 40 mg A/P Acute on Chronic Hypoxic and Hypercapneic Respiratory Failure s/p Tracheostomy Pneumonia UTI Atelectasis Atrial Fibrillation COPD CHF - antibiotics completed - monitor fever curve, WBC trend - chest PT, pulmonary toilet - mucomyst - if atelectasis recurs without improvement from above, can consider bronchoscopy - DVT prophylaxis
[2017-03-11] MEDS: SODIUM CHLORIDE 0.45%/POT 1,000 ML IV SCH (15:30)
[2017-03-11] MEDS: ACETAMINOPHEN 325 MG TABLET (FP) PO PRN (17:23)
[2017-03-11 18:25] LABS: URINE APPEARANCE SLCLOUDY; URINE BILIRUBIN NEGATIVE (NEGATIVE); URINE BLOOD NEGATIVE (NEGATIVE); URINE COLOR LTYELLOW; URINE GLUCOSE (UA) NEGATIVE (NEGATIVE); URINE KETONE NEGATIVE (NEGATIVE); URINE LEUK ESTERASE NEGATIVE (NEGATIVE); URINE NITRITE NEGATIVE (NEGATIVE); URINE PROTEIN NEGATIVE (NEGATIVE); URINE UROBILINOGEN NEGATIVE mg/dL (0.2-1.0)
[2017-03-11] MEDS: ATORVASTATIN CA 10 MG TABLET (FP) PO SCH (22:22)
[2017-03-11] MEDS: MIRTAZAPINE 15 MG TABLET (FP) PO SCH (22:22)
[2017-03-12] MEDS: SODIUM CHLORIDE 0.45%/POT 1,000 ML IV SCH ×3 (05:30→12:44)
[2017-03-12] MEDS: ALBUTEROL SO4 0.083% IH SOL 2.5 MG/3 ML VIAL.NEB. NEB PRN ×4 (06:14→23:06)
[2017-03-12] MEDS: ACETYLCYSTEINE 20% 200MG/ML 4 ML VIAL *FOR ORAL / INH USE ONLY IH SCH ×4 (06:14→23:06)
[2017-03-12 09:12] LABS: BASOPHIL 1.3 % (0-2.0); EOSINOPHIL 3.3 % (0-4.5); MCH 26.3 pg (25.7-33.7); MCHC 32.4 g/dl (32.0-36.0); MEAN CELL VOLUME 81.2 fl (80-96); MEAN PLT VOLUME 8.1 fl (7.5-11.1); NEUTROPHILS 69.8 % (42.8-82.8); PLATELET COUNT 174 K/MM3 (134-434); RDW 17.8 % (11.6-15.6); WHITE BLOOD COUNT 6.4 K/mm3 (4.0-10.0)
[2017-03-12] MEDS: PANTOPRAZOLE 40 MG TABLET (FP) PO SCH (09:23)
[2017-03-12] MEDS: LORATADINE 10 MG TABLET PO SCH (09:23)
[2017-03-12] MEDS: FERROUS SO4 325 MG TABLET (FP) PO SCH ×2 (09:23→22:08)
[2017-03-12] MEDS: LACTOBACILLUS ACIDOPHILUS 1 EACH TAB (FP) PO SCH (09:23)
[2017-03-12] MEDS: ASCORBIC ACID 250 MG TABLET (FP) PO SCH (09:23)
[2017-03-12] MEDS: APIXABAN 2.5 MG TABLET PO SCH ×2 (09:23→22:08)
[2017-03-12] MEDS: NYSTATIN POWDER 100,000 UNITS/GM - 15 GM TOPICAL POWDER TP SCH (09:24)
[2017-03-12] MEDS: BACITRACIN 15 GM TUBE TOPICAL OINTMENT TP SCH (09:29)
[2017-03-12 10:07] LABS: ALK PHOS 74 U/L (45-117); ANION GAP 6 (8-16); BILIRUBIN,TOTAL 0.5 mg/dL (0.2-1.0); CALCIUM 8.6 mg/dL (8.5-10.1); CO2 31 mmol/L (21-32); CREATININE 0.4 mg/dL (0.55-1.02); GLUCOSE,RANDOM 83 mg/dL (74-106); SGOT/AST 10 U/L (15-37); SGPT/ALT 10 U/L (12-78); TOT PROT 5.6 g/dl (6.4-8.2)
--- NOTE | 2017-03-12 12:13 | PN ---
Progress Note, Physician Chief Complaint: temp 102.2 last evening - Current Medication List Current Medications: Active Medications Acetaminophen (Tylenol -) 650 mg PO Q6H PRN PRN Reason: FEVER OR PAIN Last Admin: 03/11/17 17:23 Dose: 650 mg Acetylcysteine (Mucomyst 20 Oral / Inh Use Only*) 400 mg IH QIDR [facility] Last Admin: 03/12/17 06:14 Dose: 400 mg Albuterol Sulfate (Ventolin 0.083% Nebulizer Soln -) 1 amp NEB Q4H PRN PRN Reason: SHORT OF BREATH/WHEEZING Last Admin: 03/12/17 06:14 Dose: 1 amp Apixaban (Eliquis -) 2.5 mg PO BID [facility] Last Admin: 03/12/17 09:23 Dose: 2.5 mg Artificial Tears (Artificial Tears) 1 drop OU BID PRN PRN Reason: DRY EYES Ascorbic Acid (Vitamin C -) 250 mg PO DAILY [facility] Last Admin: 03/12/17 09:23 Dose: 250 mg Atorvastatin Calcium (Lipitor -) 10 mg PO HS [facility] Last Admin: 03/11/17 22:22 Dose: 10 mg Bacitracin (Bacitracin -) 1 applic TP DAILY [facility] Last Admin: 03/12/17 09:29 Dose: 1 applic Ferrous Sulfate (Feosol -) 325 mg PO BID [facility] Last Admin: 03/12/17 09:23 Dose: 325 mg Potassium Chloride/Sodium Chloride (1/2ns+20meq Kcl) 1,000 mls @ 75 mls/hr IV ASDIR [facility] Last Admin: 03/12/17 05:30 Dose: 75 mls/hr Lactobacillus Acidophilus (Bacid -) 1 tab PO DAILY [facility] Last Admin: 03/12/17 09:23 Dose: 1 tab Loratadine (Claritin -) 10 mg PO DAILY [facility] Last Admin: 03/12/17 09:23 Dose: 10 mg Mirtazapine (Remeron -) 15 mg PO HS [facility] Last Admin: 03/11/17 22:22 Dose: 15 mg Nystatin (Nystop Powder -) 1 applic TP DAILY [facility] Last Admin: 03/12/17 09:24 Dose: 1 applic Pantoprazole Sodium (Protonix -) 40 mg PO DAILY [facility] Last Admin: 03/12/17 09:23 Dose: 40 mg - Objective Vital Signs: Vital Signs Temperature 98.2 F 03/12/17 10:00 Pulse Rate 74 03/12/17 10:00 Respiratory Rate 14 03/12/17 10:00 Blood Pressure 112/72 03/12/17 10:00 O2 Sat by Pulse Oximetry (%) 98 03/11/17 22:49 Constitutional: Yes: Calm Neck: Yes: Other (trach) Cardiovascular: Yes: Regular Rate and Rhythm, S1, S2 Respiratory: Yes: Mechanically Ventilated Gastrointestinal: Yes: Normal Bowel Sounds, Soft Edema: No Neurological: Yes: Alert Labs: CBC, BMP 03/12/17 08:45 03/12/17 08:45 INR, PTT INR 1.32 (0.82-1.09) H 02/26/17 17:45 Problem List - Problems (1) Fever Assessment/Plan: tmax 0f 102.2 repeat cultures sent ID follow up today Code(s): R50.9 - FEVER, UNSPECIFIED (2) UTI (urinary tract infection) Assessment/Plan: ESBL- isolation/ contaact precautions s/p 7 days of completion of meropenem repeat urine sent Code(s): N39.0 - URINARY TRACT INFECTION, SITE NOT SPECIFIED Qualifiers: Urinary tract infection type: site unspecified Hematuria presence: without hematuria Qualified Code(s): N39.0 - Urinary tract infection, site not specified; R31.9 - Hematuria, unspecified (3) Anemia Assessment/Plan: got one unit prbc got venofer this admission h/h stable on ferrous sulfate Code(s): D64.9 - ANEMIA, UNSPECIFIED Qualifiers: Anemia type: iron deficiency (4) Atelectasis of left lung Assessment/Plan: mucomyst pulm onn board Code(s): J98.11 - ATELECTASIS (5) Chronic respiratory failure Assessment/Plan: mechanically vented Code(s): J96.10 - CHRONIC RESPIRATORY FAILURE, UNSP W HYPOXIA OR HYPERCAPNIA Qualifiers: Respiratory failure complication: hypercapnia Qualified Code(s): J96.12 - Chronic respiratory failure with hypercapnia (6) PAF (paroxysmal atrial fibrillation) Assessment/Plan: now in sinus eliquis bid for stroke prevention Code(s): I48.0 - PAROXYSMAL ATRIAL FIBRILLATION
--- NOTE | 2017-03-12 12:28 | PN ---
Progress Note, [employer] - Note Progress Note: Selected Entries 03/10/17 03/10/17 03/10/17 10:47 14:11 19:16 Breakfast Lunch Temperature 98.6 F 99.3 F 99.6 F 03/10/17 03/11/17 03/11/17 22:39 02:00 05:22 Breakfast Lunch Temperature 100.0 F H 99.2 F 98.6 F 03/11/17 03/11/17 03/11/17 09:05 11:30 14:32 Breakfast 50% Lunch 25% Temperature 99.5 F 101.0 F H 03/11/17 03/12/17 03/12/17 17:12 02:00 06:00 Breakfast Lunch Temperature 102.2 F H 98.2 F 99.4 F 03/12/17 03/12/17 10:00 11:03 Breakfast 50% Lunch Temperature 98.2 F Laboratory Tests 03/11/17 03/12/17 07:59 08:45 WBC 6.4 6.4 Silent aspiration can not be r/o at bedside. Staff denies overt signs of aspiration. Reportedely no food suctioned from trach site. If aspiration is suspected by medical staff, MBS will be indicated to r/o silent aspiration.
--- NOTE | 2017-03-12 15:50 | PN ---
Progress Note, Physician History of Present Illness: pulmonary awake on vent support a/c mode ,-resp distress - Current Medication List Current Medications: Active Medications Acetaminophen (Tylenol -) 650 mg PO Q6H PRN PRN Reason: FEVER OR PAIN Last Admin: 03/11/17 17:23 Dose: 650 mg Acetylcysteine (Mucomyst 20 Oral / Inh Use Only*) 400 mg IH QIDR [facility] Last Admin: 03/12/17 12:32 Dose: 400 mg Albuterol Sulfate (Ventolin 0.083% Nebulizer Soln -) 1 amp NEB Q4H PRN PRN Reason: SHORT OF BREATH/WHEEZING Last Admin: 03/12/17 12:33 Dose: 1 amp Apixaban (Eliquis -) 2.5 mg PO BID [facility] Last Admin: 03/12/17 09:23 Dose: 2.5 mg Artificial Tears (Artificial Tears) 1 drop OU BID PRN PRN Reason: DRY EYES Ascorbic Acid (Vitamin C -) 250 mg PO DAILY [facility] Last Admin: 03/12/17 09:23 Dose: 250 mg Atorvastatin Calcium (Lipitor -) 10 mg PO HS [facility] Last Admin: 03/11/17 22:22 Dose: 10 mg Bacitracin (Bacitracin -) 1 applic TP DAILY [facility] Last Admin: 03/12/17 09:29 Dose: 1 applic Ferrous Sulfate (Feosol -) 325 mg PO BID [facility] Last Admin: 03/12/17 09:23 Dose: 325 mg Potassium Chloride/Sodium Chloride (1/2ns+20meq Kcl) 1,000 mls @ 75 mls/hr IV ASDIR [facility] Last Admin: 03/12/17 12:44 Dose: Not Given Lactobacillus Acidophilus (Bacid -) 1 tab PO DAILY [facility] Last Admin: 03/12/17 09:23 Dose: 1 tab Loratadine (Claritin -) 10 mg PO DAILY [facility] Last Admin: 03/12/17 09:23 Dose: 10 mg Mirtazapine (Remeron -) 15 mg PO HS [facility] Last Admin: 03/11/17 22:22 Dose: 15 mg Nystatin (Nystop Powder -) 1 applic TP DAILY [facility] Last Admin: 03/12/17 09:24 Dose: 1 applic Pantoprazole Sodium (Protonix -) 40 mg PO DAILY [facility] Last Admin: 03/12/17 09:23 Dose: 40 mg - Objective Vital Signs: Vital Signs Temperature 99.2 F 03/12/17 15:07 Pulse Rate 77 03/12/17 15:07 Respiratory Rate 14 03/12/17 15:07 Blood Pressure 96/58 03/12/17 15:07 O2 Sat by Pulse Oximetry (%) 96 03/12/17 12:31 Constitutional: Yes: Calm, Thin Eyes: Yes: WNL HENT: Yes: WNL Neck: Yes: Supple (trach) Cardiovascular: Yes: Pulse Irregular, S1, S2 Respiratory: Yes: Rhonchi (stone rhonchi) Gastrointestinal: Yes: Normal Bowel Sounds, Soft Extremities: Yes: WNL Edema: No Labs: CBC, BMP 03/12/17 08:45 03/12/17 08:45 INR, PTT INR 1.32 (0.82-1.09) H 02/26/17 17:45 - ....Imaging Chest X-ray: Report Reviewed, Image Reviewed (no significant change ,left lung atelectasis) Problem List - Problems (1) Anemia Code(s): D64.9 - ANEMIA, UNSPECIFIED Qualifiers: Anemia type: iron deficiency (2) COPD (chronic obstructive pulmonary disease) Code(s): J44.9 - CHRONIC OBSTRUCTIVE PULMONARY DISEASE, UNSPECIFIED Qualifiers : COPD type: unspecified COPD Qualified Code(s): J44.9 - Chronic obstructive pulmonary disease, unspecified (3) Chronic respiratory failure Code(s): J96.10 - CHRONIC RESPIRATORY FAILURE, UNSP W HYPOXIA OR HYPERCAPNIA Qualifiers: Respiratory failure complication: hypercapnia Qualified Code(s): J96.12 - Chronic respiratory failure with hypercapnia (4) AICD (automatic cardioverter/defibrillator) present Code(s): Z95.810 - PRESENCE OF AUTOMATIC (IMPLANTABLE) CARDIAC DEFIBRILLATOR (5) Acute and chronic respiratory failure with hypercapnia Code(s): J96.22 - ACUTE AND CHRONIC RESPIRATORY FAILURE WITH HYPERCAPNIA (6) HTN (hypertension) Code(s): I10 - ESSENTIAL (PRIMARY) HYPERTENSION (7) Hyperlipemia Code(s): E78.5 - HYPERLIPIDEMIA, UNSPECIFIED (8) PAF (paroxysmal atrial fibrillation) Code(s): I48.0 - PAROXYSMAL ATRIAL FIBRILLATION (9) Respirator dependence Code(s): Z99.11 - DEPENDENCE ON RESPIRATOR [VENTILATOR] STATUS (10) Atelectasis of left lung Code(s): J98.11 - ATELECTASIS (11) Atelectasis Code(s): J98.11 - ATELECTASIS Assessment/Plan IMP ACUTE ON CHRONIC HYPOXEMIC/HYPERCAPNEIC RESPIRATORY FAILURE LEFT LUNG ATELECTASIS END STAGE COPD AFIB CHF H/O GI BLEED PLAN VENT SUPPORT ON AC MODE INHALED BRONCHODILATORS TRACHEAL SUCTIONING WITH CUDET CATH MUCOMYST F/U CHEST X-RAY AM FLEX BRONCHOSCOPY IF NO IMPROVEMENT RATE CONTROL DR CABRERA
[2017-03-12] MEDS ORDERED: PT OWN MED DRAWER 7, Y5N ONE (20:33)
[2017-03-12] MEDS: ATORVASTATIN CA 10 MG TABLET (FP) PO SCH (22:08)
[2017-03-12] MEDS: MIRTAZAPINE 15 MG TABLET (FP) PO SCH (22:09)
[2017-03-13] MEDS: ALBUTEROL SO4 0.083% IH SOL 2.5 MG/3 ML VIAL.NEB. NEB PRN ×2 (05:19→12:18)
[2017-03-13] MEDS: ACETYLCYSTEINE 20% 200MG/ML 4 ML VIAL *FOR ORAL / INH USE ONLY IH SCH ×3 (05:19→17:38)
--- NOTE | 2017-03-13 10:41 | PN ---
Progress Note, Physician Chief Complaint: UTI,Anemia, Pneumonia History of Present Illness: NAD, in bed, mechanically vented, alert -Repeat CXR from yesterday showed no changes, complete opacification of left hemithorax indicating atelectasis. She is already on mucomyst, has cadet cath. - Current Medication List Current Medications: Active Medications Acetaminophen (Tylenol -) 650 mg PO Q6H PRN PRN Reason: FEVER OR PAIN Last Admin: 03/11/17 17:23 Dose: 650 mg Acetylcysteine (Mucomyst 20 Oral / Inh Use Only*) 400 mg IH QIDR [facility] Last Admin: 03/13/17 05:19 Dose: 400 mg Albuterol Sulfate (Ventolin 0.083% Nebulizer Soln -) 1 amp NEB Q4H PRN PRN Reason: SHORT OF BREATH/WHEEZING Last Admin: 03/13/17 05:19 Dose: 1 amp Apixaban (Eliquis -) 2.5 mg PO BID [facility] Last Admin: 03/12/17 22:08 Dose: 2.5 mg Artificial Tears (Artificial Tears) 1 drop OU BID PRN PRN Reason: DRY EYES Ascorbic Acid (Vitamin C -) 250 mg PO DAILY [facility] Last Admin: 03/12/17 09:23 Dose: 250 mg Atorvastatin Calcium (Lipitor -) 10 mg PO HS [facility] Last Admin: 03/12/17 22:08 Dose: 10 mg Bacitracin (Bacitracin -) 1 applic TP DAILY [facility] Last Admin: 03/12/17 09:29 Dose: 1 applic Ferrous Sulfate (Feosol -) 325 mg PO BID [facility] Last Admin: 03/12/17 22:08 Dose: 325 mg Potassium Chloride/Sodium Chloride (1/2ns+20meq Kcl) 1,000 mls @ 75 mls/hr IV ASDIR [facility] Last Admin: 03/12/17 12:44 Dose: Not Given Lactobacillus Acidophilus (Bacid -) 1 tab PO DAILY [facility] Last Admin: 03/12/17 09:23 Dose: 1 tab Loratadine (Claritin -) 10 mg PO DAILY [facility] Last Admin: 03/12/17 09:23 Dose: 10 mg Mirtazapine (Remeron -) 15 mg PO HS [facility] Last Admin: 03/12/17 22:09 Dose: 15 mg Nystatin (Nystop Powder -) 1 applic TP DAILY [facility] Last Admin: 03/12/17 09:24 Dose: 1 applic Pantoprazole Sodium (Protonix -) 40 mg PO DAILY [facility] Last Admin: 03/12/17 09:23 Dose: 40 mg - Objective Vital Signs: Vital Signs Temperature 99.1 F 03/13/17 06:52 Pulse Rate 70 03/13/17 06:52 Respiratory Rate 18 03/13/17 06:52 Blood Pressure 102/59 03/13/17 06:52 O2 Sat by Pulse Oximetry (%) 97 03/12/17 23:35 Constitutional: Yes: Well Nourished, No Distress, Calm Cardiovascular: Yes: Regular Rate and Rhythm Respiratory: Yes: Regular Gastrointestinal: Yes: Normal Bowel Sounds Musculoskeletal: Yes: WNL Edema: No Peripheral Pulses WNL: Yes Neurological: Yes: Alert, Oriented Psychiatric: Yes: Alert, Oriented Labs: CBC, BMP 03/12/17 08:45 03/12/17 08:45 INR, PTT INR 1.32 (0.82-1.09) H 02/26/17 17:45 Problem List - Problems (1) Anemia Assessment/Plan: much improved Code(s): D64.9 - ANEMIA, UNSPECIFIED Qualifiers: Anemia type: iron deficiency (2) Chronic respiratory failure Assessment/Plan: -on mechanical ventilation -repeat CXR today worsening of left lung atelectasis -pulmonary on board -on mucomyst QID Code(s): J96.10 - CHRONIC RESPIRATORY FAILURE, UNSP W HYPOXIA OR HYPERCAPNIA Qualifiers: Respiratory failure complication: hypercapnia Qualified Code(s): J96.12 - Chronic respiratory failure with hypercapnia (3) UTI (urinary tract infection) Assessment/Plan: positive for proteus mirabilus esbl Completed 7 days of IV meropenem monitor off abx Code(s): N39.0 - URINARY TRACT INFECTION, SITE NOT SPECIFIED Qualifiers: Urinary tract infection type: site unspecified Hematuria presence: without hematuria Qualified Code(s): N39.0 - Urinary tract infection, site not specified; R31.9 - Hematuria, unspecified (4) Fever Assessment/Plan: -afebrile x 24 hours -repeat BC negative -seen by ID -tylenol for fever over 100.0F Code(s): R50.9 - FEVER, UNSPECIFIED (5) Functional quadriplegia Code(s): R53.2 - FUNCTIONAL QUADRIPLEGIA (6) Leukocytosis Assessment/Plan: -normalized -BC negative Code(s): D72.829 - ELEVATED WHITE BLOOD CELL COUNT, UNSPECIFIED (7) Atelectasis of left lung Assessment/Plan: -repeat CXR yesterday showed no change in the left lung atelectasis -may benefit from bronchoscopy -has cudet catheter -on mucomyst -repeat CXR in AM as per pulmonary Code(s): J98.11 - ATELECTASIS Assessment/Plan see problem list
[2017-03-13] MEDS: PANTOPRAZOLE 40 MG TABLET (FP) PO SCH (10:53)
[2017-03-13] MEDS: APIXABAN 2.5 MG TABLET PO SCH ×2 (10:53→21:10)
[2017-03-13] MEDS: ASCORBIC ACID 250 MG TABLET (FP) PO SCH (10:53)
[2017-03-13] MEDS: NYSTATIN POWDER 100,000 UNITS/GM - 15 GM TOPICAL POWDER TP SCH (10:53)
[2017-03-13] MEDS: LORATADINE 10 MG TABLET PO SCH (10:53)
[2017-03-13] MEDS: FERROUS SO4 325 MG TABLET (FP) PO SCH ×2 (10:53→21:10)
[2017-03-13] MEDS: LACTOBACILLUS ACIDOPHILUS 1 EACH TAB (FP) PO SCH (10:53)
[2017-03-13] MEDS: BACITRACIN 15 GM TUBE TOPICAL OINTMENT TP SCH (10:57)
--- NOTE | 2017-03-13 15:07 | PN ---
Progress Note, Physician History of Present Illness: pulmonary alert,on vent support ac mode - Current Medication List Current Medications: Active Medications Acetaminophen (Tylenol -) 650 mg PO Q6H PRN PRN Reason: FEVER OR PAIN Last Admin: 03/11/17 17:23 Dose: 650 mg Acetylcysteine (Mucomyst 20 Oral / Inh Use Only*) 400 mg IH QIDR [facility] Last Admin: 03/13/17 12:18 Dose: 400 mg Albuterol Sulfate (Ventolin 0.083% Nebulizer Soln -) 1 amp NEB Q4H PRN PRN Reason: SHORT OF BREATH/WHEEZING Last Admin: 03/13/17 12:18 Dose: 1 amp Apixaban (Eliquis -) 2.5 mg PO BID [facility] Last Admin: 03/13/17 10:53 Dose: 2.5 mg Artificial Tears (Artificial Tears) 1 drop OU BID PRN PRN Reason: DRY EYES Ascorbic Acid (Vitamin C -) 250 mg PO DAILY [facility] Last Admin: 03/13/17 10:53 Dose: 250 mg Atorvastatin Calcium (Lipitor -) 10 mg PO HS [facility] Last Admin: 03/12/17 22:08 Dose: 10 mg Bacitracin (Bacitracin -) 1 applic TP DAILY [facility] Last Admin: 03/13/17 10:57 Dose: 1 applic Ferrous Sulfate (Feosol -) 325 mg PO BID [facility] Last Admin: 03/13/17 10:53 Dose: 325 mg Potassium Chloride/Sodium Chloride (1/2ns+20meq Kcl) 1,000 mls @ 75 mls/hr IV ASDIR [facility] Last Admin: 03/12/17 12:44 Dose: Not Given Lactobacillus Acidophilus (Bacid -) 1 tab PO DAILY [facility] Last Admin: 03/13/17 10:53 Dose: 1 tab Loratadine (Claritin -) 10 mg PO DAILY [facility] Last Admin: 03/13/17 10:53 Dose: 10 mg Mirtazapine (Remeron -) 15 mg PO HS [facility] Last Admin: 03/12/17 22:09 Dose: 15 mg Nystatin (Nystop Powder -) 1 applic TP DAILY [facility] Last Admin: 03/13/17 10:53 Dose: 1 applic Pantoprazole Sodium (Protonix -) 40 mg PO DAILY [facility] Last Admin: 03/13/17 10:53 Dose: 40 mg - Objective Vital Signs: Vital Signs Temperature 100.2 F H 03/13/17 14:38 Pulse Rate 75 03/13/17 14:38 Respiratory Rate 14 03/13/17 14:40 Blood Pressure 101/59 03/13/17 14:38 O2 Sat by Pulse Oximetry (%) 98 03/13/17 10:15 Constitutional: Yes: Calm, Thin Eyes: Yes: WNL HENT: Yes: WNL Neck: Yes: Supple (trach) Cardiovascular: Yes: Pulse Irregular, S1, S2 Respiratory: Yes: Rhonchi (few scattered rhonchi) Gastrointestinal: Yes: Normal Bowel Sounds, Soft Extremities: Yes: WNL Edema: No Labs: CBC, BMP Problem List - Problems (1) Anemia Code(s): D64.9 - ANEMIA, UNSPECIFIED Qualifiers: Anemia type: iron deficiency (2) COPD (chronic obstructive pulmonary disease) Code(s): J44.9 - CHRONIC OBSTRUCTIVE PULMONARY DISEASE, UNSPECIFIED Qualifiers : COPD type: unspecified COPD Qualified Code(s): J44.9 - Chronic obstructive pulmonary disease, unspecified (3) Chronic respiratory failure Code(s): J96.10 - CHRONIC RESPIRATORY FAILURE, UNSP W HYPOXIA OR HYPERCAPNIA Qualifiers: Respiratory failure complication: hypercapnia Qualified Code(s): J96.12 - Chronic respiratory failure with hypercapnia (4) AICD (automatic cardioverter/defibrillator) present Code(s): Z95.810 - PRESENCE OF AUTOMATIC (IMPLANTABLE) CARDIAC DEFIBRILLATOR (5) Acute and chronic respiratory failure with hypercapnia Code(s): J96.22 - ACUTE AND CHRONIC RESPIRATORY FAILURE WITH HYPERCAPNIA (6) HTN (hypertension) Code(s): I10 - ESSENTIAL (PRIMARY) HYPERTENSION (7) Hyperlipemia Code(s): E78.5 - HYPERLIPIDEMIA, UNSPECIFIED (8) PAF (paroxysmal atrial fibrillation) Code(s): I48.0 - PAROXYSMAL ATRIAL FIBRILLATION (9) Respirator dependence Code(s): Z99.11 - DEPENDENCE ON RESPIRATOR [VENTILATOR] STATUS (10) Atelectasis of left lung Code(s): J98.11 - ATELECTASIS (11) Atelectasis Code(s): J98.11 - ATELECTASIS Assessment/Plan IMP ACUTE ON CHRONIC HYPOXEMIC/HYPERCAPNEIC RESPIRATORY FAILURE LEFT LUNG ATELECTASIS END STAGE COPD AFIB CHF H/O GI BLEED PLAN VENT SUPPORT ON AC MODE INHALED BRONCHODILATORS TRACHEAL SUCTIONING WITH CUDET CATH MUCOMYST CHEST X-RAY FLEX BRONCHOSCOPY IF NO IMPROVEMENT DR CABRERA
[2017-03-13] MEDS: SODIUM CHLORIDE 0.45%/POT 1,000 ML IV SCH ×2 (15:40→17:18)
[2017-03-13] MEDS ORDERED: PT OWN MED DRAWER 7, Y5N ONE (20:03)
[2017-03-13] MEDS: MIRTAZAPINE 15 MG TABLET (FP) PO SCH (21:11)
[2017-03-13] MEDS: ATORVASTATIN CA 10 MG TABLET (FP) PO SCH (21:11)
[2017-03-14] MEDS: ACETYLCYSTEINE 20% 200MG/ML 4 ML VIAL *FOR ORAL / INH USE ONLY IH SCH ×4 (00:15→18:27)
[2017-03-14] MEDS: LORATADINE 10 MG TABLET PO SCH (11:00)
[2017-03-14] MEDS: NYSTATIN POWDER 100,000 UNITS/GM - 15 GM TOPICAL POWDER TP SCH (11:00)
[2017-03-14] MEDS: FERROUS SO4 325 MG TABLET (FP) PO SCH ×2 (11:00→21:07)
[2017-03-14] MEDS: PANTOPRAZOLE 40 MG TABLET (FP) PO SCH (11:00)
[2017-03-14] MEDS: LACTOBACILLUS ACIDOPHILUS 1 EACH TAB (FP) PO SCH (11:00)
[2017-03-14] MEDS: APIXABAN 2.5 MG TABLET PO SCH ×2 (11:03→21:07)
[2017-03-14] MEDS: SODIUM CHLORIDE 0.45%/POT 1,000 ML IV SCH ×2 (12:01→19:04)
[2017-03-14] MEDS: BACITRACIN 15 GM TUBE TOPICAL OINTMENT TP SCH (12:04)
[2017-03-14] MEDS: ASCORBIC ACID 250 MG TABLET (FP) PO SCH (12:04)
--- NOTE | 2017-03-14 12:50 | PN ---
Progress Note (short form) - Note Progress Note: PULMONARY AWAKE/VENTED VSS/AFEBRILE TRACH/ANICTERIC DIMINISHED BREATH SOUNDS LEFT S1S2 BS+ NO EDEMA LABS/MEDS/NOTES/IMAGING/MICRO REVIEWED A/P Acute on Chronic Hypoxic and Hypercapneic Respiratory Failure s/p Tracheostomy Pneumonia UTI Atelectasis Atrial Fibrillation COPD CHF - monitor fever curve, WBC trend - chest PT, pulmonary toilet - mucomyst - will discuss FOB with rest of team - DVT prophylaxis Brandi FLOREZ MD
--- NOTE | 2017-03-14 16:29 | PN ---
Progress Note, Physician Chief Complaint: UTI,Anemia, Pneumonia History of Present Illness: NAD, in bed, mechanically vented, alert -Repeat CXR from yesterday showed no changes, complete opacification of left hemithorax indicating atelectasis. She is already on mucomyst, has cadet cath. - Current Medication List Current Medications: Active Medications Acetaminophen (Tylenol -) 650 mg PO Q6H PRN PRN Reason: FEVER OR PAIN Last Admin: 03/11/17 17:23 Dose: 650 mg Acetylcysteine (Mucomyst 20 Oral / Inh Use Only*) 400 mg IH QIDR [facility] Last Admin: 03/14/17 11:39 Dose: Not Given Apixaban (Eliquis -) 2.5 mg PO BID [facility] Last Admin: 03/14/17 11:03 Dose: 2.5 mg Artificial Tears (Artificial Tears) 1 drop OU BID PRN PRN Reason: DRY EYES Ascorbic Acid (Vitamin C -) 250 mg PO DAILY [facility] Last Admin: 03/14/17 12:04 Dose: 250 mg Atorvastatin Calcium (Lipitor -) 10 mg PO HS [facility] Last Admin: 03/13/17 21:11 Dose: 10 mg Bacitracin (Bacitracin -) 1 applic TP DAILY [facility] Last Admin: 03/14/17 12:04 Dose: Not Given Ferrous Sulfate (Feosol -) 325 mg PO BID [facility] Last Admin: 03/14/17 11:00 Dose: 325 mg Potassium Chloride/Sodium Chloride (1/2ns+20meq Kcl) 1,000 mls @ 75 mls/hr IV ASDIR [facility] Last Admin: 03/14/17 12:01 Dose: Not Given Lactobacillus Acidophilus (Bacid -) 1 tab PO DAILY [facility] Last Admin: 03/14/17 11:00 Dose: 1 tab Loratadine (Claritin -) 10 mg PO DAILY [facility] Last Admin: 03/14/17 11:00 Dose: 10 mg Mirtazapine (Remeron -) 15 mg PO HS [facility] Last Admin: 03/13/17 21:11 Dose: 15 mg Nystatin (Nystop Powder -) 1 applic TP DAILY [facility] Last Admin: 03/14/17 11:00 Dose: 1 applic Pantoprazole Sodium (Protonix -) 40 mg PO DAILY [facility] Last Admin: 03/14/17 11:00 Dose: 40 mg - Objective Vital Signs: Vital Signs Temperature 99.9 F H 03/14/17 14:36 Pulse Rate 70 03/14/17 14:36 Respiratory Rate 14 03/14/17 14:36 Blood Pressure 120/70 03/14/17 14:36 O2 Sat by Pulse Oximetry (%) 96 03/14/17 10:51 Constitutional: Yes: Well Nourished, No Distress, Calm Cardiovascular: Yes: Regular Rate and Rhythm Respiratory: Yes: Regular Gastrointestinal: Yes: Normal Bowel Sounds Labs: CBC, BMP 03/12/17 08:45 03/12/17 08:45 INR, PTT INR 1.32 (0.82-1.09) H 02/26/17 17:45 Problem List - Problems (1) Anemia Assessment/Plan: much improved Code(s): D64.9 - ANEMIA, UNSPECIFIED Qualifiers: Anemia type: iron deficiency (2) Chronic respiratory failure Assessment/Plan: -on mechanical ventilation -repeat CXR today worsening of left lung atelectasis -pulmonary on board -on mucomyst QID Code(s): J96.10 - CHRONIC RESPIRATORY FAILURE, UNSP W HYPOXIA OR HYPERCAPNIA Qualifiers: Respiratory failure complication: hypercapnia Qualified Code(s): J96.12 - Chronic respiratory failure with hypercapnia (3) UTI (urinary tract infection) Assessment/Plan: UC positive for proteus mirabilus esbl Completed 7 days of IV meropenem monitor off abx Code(s): N39.0 - URINARY TRACT INFECTION, SITE NOT SPECIFIED Qualifiers: Urinary tract infection type: site unspecified Hematuria presence: without hematuria Qualified Code(s): N39.0 - Urinary tract infection, site not specified; R31.9 - Hematuria, unspecified (4) Fever Assessment/Plan: -afebrile x 24 hours -repeat BC negative -seen by ID -tylenol for fever over 100.0F Code(s): R50.9 - FEVER, UNSPECIFIED (5) Functional quadriplegia Code(s): R53.2 - FUNCTIONAL QUADRIPLEGIA (6) Leukocytosis Assessment/Plan: -normalized -BC negative Code(s): D72.829 - ELEVATED WHITE BLOOD CELL COUNT, UNSPECIFIED (7) Atelectasis of left lung Assessment/Plan: -repeat CXR on 03/12/17 showed no change in the left lung atelectasis -may benefit from bronchoscopy -has cudet catheter -on mucomyst -repeat CXR in AM as per pulmonary Code(s): J98.11 - ATELECTASIS Assessment/Plan see problem list
[2017-03-14] MEDS: ALBUTEROL SO4 0.083% IH SOL 2.5 MG/3 ML VIAL.NEB. NEB PRN (18:27)
[2017-03-14] MEDS: MIRTAZAPINE 15 MG TABLET (FP) PO SCH (21:08)
[2017-03-14] MEDS: ATORVASTATIN CA 10 MG TABLET (FP) PO SCH (21:08)
[2017-03-15] MEDS: ACETYLCYSTEINE 20% 200MG/ML 4 ML VIAL *FOR ORAL / INH USE ONLY IH SCH ×4 (00:18→17:40)
[2017-03-15] MEDS: ALBUTEROL SO4 0.083% IH SOL 2.5 MG/3 ML VIAL.NEB. NEB PRN ×4 (00:18→17:40)
[2017-03-15] MEDS ORDERED: PT OWN MED DRAWER 7, Y5N ONE ×3 (11:20→22:05)
[2017-03-15] MEDS: APIXABAN 2.5 MG TABLET PO SCH ×2 (11:23→22:18)
[2017-03-15] MEDS: LORATADINE 10 MG TABLET PO SCH (11:23)
[2017-03-15] MEDS: FERROUS SO4 325 MG TABLET (FP) PO SCH ×2 (11:23→22:14)
[2017-03-15] MEDS: LACTOBACILLUS ACIDOPHILUS 1 EACH TAB (FP) PO SCH (11:23)
[2017-03-15] MEDS: BACITRACIN 15 GM TUBE TOPICAL OINTMENT TP SCH (11:23)
[2017-03-15] MEDS: PANTOPRAZOLE 40 MG TABLET (FP) PO SCH (11:23)
--- NOTE | 2017-03-15 11:23 | PN ---
Progress Note, Physician Chief Complaint: patient seen and examined cxr noted worseining opacification of left lung no fever, wbc now normal - Current Medication List Current Medications: Active Medications Acetaminophen (Tylenol -) 650 mg PO Q6H PRN PRN Reason: FEVER OR PAIN Last Admin: 03/11/17 17:23 Dose: 650 mg Acetylcysteine (Mucomyst 20 Oral / Inh Use Only*) 400 mg IH QIDR [facility] Last Admin: 03/15/17 07:19 Dose: 400 mg Albuterol Sulfate (Ventolin 0.083% Nebulizer Soln -) 1 amp NEB Q4H PRN PRN Reason: SHORT OF BREATH/WHEEZING Last Admin: 03/15/17 07:19 Dose: 1 amp Apixaban (Eliquis -) 2.5 mg PO BID [facility] Last Admin: 03/14/17 21:07 Dose: 2.5 mg Artificial Tears (Artificial Tears) 1 drop OU BID PRN PRN Reason: DRY EYES Ascorbic Acid (Vitamin C -) 250 mg PO DAILY [facility] Last Admin: 03/14/17 12:04 Dose: 250 mg Atorvastatin Calcium (Lipitor -) 10 mg PO HS [facility] Last Admin: 03/14/17 21:08 Dose: 10 mg Bacitracin (Bacitracin -) 1 applic TP DAILY [facility] Last Admin: 03/14/17 12:04 Dose: Not Given Ferrous Sulfate (Feosol -) 325 mg PO BID [facility] Last Admin: 03/14/17 21:07 Dose: 325 mg Potassium Chloride/Sodium Chloride (1/2ns+20meq Kcl) 1,000 mls @ 75 mls/hr IV ASDIR [facility] Last Admin: 03/14/17 19:04 Dose: 75 mls/hr Lactobacillus Acidophilus (Bacid -) 1 tab PO DAILY [facility] Last Admin: 03/14/17 11:00 Dose: 1 tab Loratadine (Claritin -) 10 mg PO DAILY [facility] Last Admin: 03/14/17 11:00 Dose: 10 mg Mirtazapine (Remeron -) 15 mg PO HS [facility] Last Admin: 03/14/17 21:08 Dose: 15 mg Nystatin (Nystop Powder -) 1 applic TP DAILY [facility] Last Admin: 03/14/17 11:00 Dose: 1 applic Pantoprazole Sodium (Protonix -) 40 mg PO DAILY [facility] Last Admin: 03/14/17 11:00 Dose: 40 mg - Objective Vital Signs: Vital Signs Temperature 99.3 F 03/15/17 06:00 Pulse Rate 70 03/15/17 06:00 Respiratory Rate 14 03/15/17 07:00 Blood Pressure 109/51 03/15/17 06:00 O2 Sat by Pulse Oximetry (%) 97 03/14/17 20:41 Constitutional: Yes: Calm, Thin Neck: Yes: Other (trach) Cardiovascular: Yes: Regular Rate and Rhythm, S1, S2 Respiratory: Yes: Diminished (on left side) Gastrointestinal: Yes: Normal Bowel Sounds, Soft Neurological: Yes: Alert Labs: CBC, BMP 03/12/17 08:45 03/12/17 08:45 INR, PTT INR 1.32 (0.82-1.09) H 02/26/17 17:45 Problem List - Problems (1) Atelectasis of left lung Assessment/Plan: cxr worseing opacification- probable bronchoscopy mucomyst pulm onn board Code(s): J98.11 - ATELECTASIS (2) Fever Assessment/Plan: afebrile cultures negative Code(s): R50.9 - FEVER, UNSPECIFIED (3) UTI (urinary tract infection) Assessment/Plan: ESBL- isolation/ contaact precautions s/p 7 days of completion of meropenem Code(s): N39.0 - URINARY TRACT INFECTION, SITE NOT SPECIFIED Qualifiers: Urinary tract infection type: site unspecified Hematuria presence: without hematuria Qualified Code(s): N39.0 - Urinary tract infection, site not specified; R31.9 - Hematuria, unspecified (4) Anemia Assessment/Plan: got one unit prbc got venofer this admission h/h stable on ferrous sulfate Code(s): D64.9 - ANEMIA, UNSPECIFIED Qualifiers: Anemia type: iron deficiency (5) Chronic respiratory failure Assessment/Plan: mechanically vented Code(s): J96.10 - CHRONIC RESPIRATORY FAILURE, UNSP W HYPOXIA OR HYPERCAPNIA Qualifiers: Respiratory failure complication: hypercapnia Qualified Code(s): J96.12 - Chronic respiratory failure with hypercapnia (6) PAF (paroxysmal atrial fibrillation) Assessment/Plan: now in sinus eliquis bid for stroke prevention Code(s): I48.0 - PAROXYSMAL ATRIAL FIBRILLATION
[2017-03-15] MEDS: NYSTATIN POWDER 100,000 UNITS/GM - 15 GM TOPICAL POWDER TP SCH (11:24)
[2017-03-15] MEDS: ASCORBIC ACID 250 MG TABLET (FP) PO SCH (11:24)
[2017-03-15] MEDS: SODIUM CHLORIDE 0.45%/POT 1,000 ML IV SCH (11:26)
--- NOTE | 2017-03-15 12:34 | PN ---
Progress Note, Physician History of Present Illness: PULMONARY ALERT ON VENT SUPPORT AC MODE - Current Medication List Current Medications: Active Medications Acetaminophen (Tylenol -) 650 mg PO Q6H PRN PRN Reason: FEVER OR PAIN Last Admin: 03/11/17 17:23 Dose: 650 mg Acetylcysteine (Mucomyst 20 Oral / Inh Use Only*) 400 mg IH QIDR [facility] Last Admin: 03/15/17 07:19 Dose: 400 mg Albuterol Sulfate (Ventolin 0.083% Nebulizer Soln -) 1 amp NEB Q4H PRN PRN Reason: SHORT OF BREATH/WHEEZING Last Admin: 03/15/17 07:19 Dose: 1 amp Apixaban (Eliquis -) 2.5 mg PO BID [facility] Last Admin: 03/15/17 11:23 Dose: 2.5 mg Artificial Tears (Artificial Tears) 1 drop OU BID PRN PRN Reason: DRY EYES Ascorbic Acid (Vitamin C -) 250 mg PO DAILY [facility] Last Admin: 03/15/17 11:24 Dose: 250 mg Atorvastatin Calcium (Lipitor -) 10 mg PO HS [facility] Last Admin: 03/14/17 21:08 Dose: 10 mg Bacitracin (Bacitracin -) 1 applic TP DAILY [facility] Last Admin: 03/15/17 11:23 Dose: 1 applic Ferrous Sulfate (Feosol -) 325 mg PO BID [facility] Last Admin: 03/15/17 11:23 Dose: 325 mg Potassium Chloride/Sodium Chloride (1/2ns+20meq Kcl) 1,000 mls @ 75 mls/hr IV ASDIR [facility] Last Admin: 03/15/17 11:26 Dose: 75 mls/hr Lactobacillus Acidophilus (Bacid -) 1 tab PO DAILY [facility] Last Admin: 03/15/17 11:23 Dose: 1 tab Loratadine (Claritin -) 10 mg PO DAILY [facility] Last Admin: 03/15/17 11:23 Dose: 10 mg Mirtazapine (Remeron -) 15 mg PO HS [facility] Last Admin: 03/14/17 21:08 Dose: 15 mg Nystatin (Nystop Powder -) 1 applic TP DAILY [facility] Last Admin: 03/15/17 11:24 Dose: 1 applic Pantoprazole Sodium (Protonix -) 40 mg PO DAILY [facility] Last Admin: 03/15/17 11:23 Dose: 40 mg - Objective Vital Signs: Vital Signs Temperature 99.3 F 03/15/17 06:00 Pulse Rate 70 03/15/17 06:00 Respiratory Rate 14 03/15/17 07:00 Blood Pressure 109/51 03/15/17 06:00 O2 Sat by Pulse Oximetry (%) 97 03/14/17 20:41 Constitutional: Yes: Calm, Thin Eyes: Yes: WNL HENT: Yes: WNL Neck: Yes: Supple (TRACH) Cardiovascular: Yes: Pulse Irregular, S1, S2 Respiratory: Yes: Rhonchi (SCATTERED JASMYN RHONCHI) Gastrointestinal: Yes: Normal Bowel Sounds, Soft Extremities: Yes: WNL Edema: No Labs: CBC, BMP 03/12/17 08:45 03/12/17 08:45 INR, PTT INR 1.32 (0.82-1.09) H 02/26/17 17:45 - ....Imaging Chest X-ray: Report Reviewed, Image Reviewed (NO CHANGE L LUNG ATELECTASIS) Problem List - Problems (1) Anemia Code(s): D64.9 - ANEMIA, UNSPECIFIED Qualifiers: Anemia type: iron deficiency (2) COPD (chronic obstructive pulmonary disease) Code(s): J44.9 - CHRONIC OBSTRUCTIVE PULMONARY DISEASE, UNSPECIFIED Qualifiers : COPD type: unspecified COPD Qualified Code(s): J44.9 - Chronic obstructive pulmonary disease, unspecified (3) Chronic respiratory failure Code(s): J96.10 - CHRONIC RESPIRATORY FAILURE, UNSP W HYPOXIA OR HYPERCAPNIA Qualifiers: Respiratory failure complication: hypercapnia Qualified Code(s): J96.12 - Chronic respiratory failure with hypercapnia (4) AICD (automatic cardioverter/defibrillator) present Code(s): Z95.810 - PRESENCE OF AUTOMATIC (IMPLANTABLE) CARDIAC DEFIBRILLATOR (5) Acute and chronic respiratory failure with hypercapnia Code(s): J96.22 - ACUTE AND CHRONIC RESPIRATORY FAILURE WITH HYPERCAPNIA (6) HTN (hypertension) Code(s): I10 - ESSENTIAL (PRIMARY) HYPERTENSION (7) Hyperlipemia Code(s): E78.5 - HYPERLIPIDEMIA, UNSPECIFIED (8) PAF (paroxysmal atrial fibrillation) Code(s): I48.0 - PAROXYSMAL ATRIAL FIBRILLATION (9) Respirator dependence Code(s): Z99.11 - DEPENDENCE ON RESPIRATOR [VENTILATOR] STATUS (10) Atelectasis of left lung Code(s): J98.11 - ATELECTASIS (11) Atelectasis Code(s): J98.11 - ATELECTASIS Assessment/Plan IMP ACUTE ON CHRONIC HYPOXEMIC/HYPERCAPNEIC RESPIRATORY FAILURE LEFT LUNG ATELECTASIS END STAGE COPD AFIB CHF H/O GI BLEED PLAN VENT SUPPORT ON AC MODE INHALED BRONCHODILATORS TRACHEAL SUCTIONING WITH CUDET CATH MUCOMYST CHEST X-RAY FLEX BRONCHOSCOPY DR CABRERA
[2017-03-15] MEDS: ACETAMINOPHEN 325 MG TABLET (FP) PO PRN (15:09)
[2017-03-15] MEDS: ATORVASTATIN CA 10 MG TABLET (FP) PO SCH (22:14)
[2017-03-15] MEDS: MIRTAZAPINE 15 MG TABLET (FP) PO SCH (22:14)
[2017-03-16] MEDS: ALBUTEROL SO4 0.083% IH SOL 2.5 MG/3 ML VIAL.NEB. NEB PRN ×3 (00:57→18:13)
[2017-03-16] MEDS: ACETYLCYSTEINE 20% 200MG/ML 4 ML VIAL *FOR ORAL / INH USE ONLY IH SCH ×4 (00:57→18:12)
[2017-03-16] MEDS: SODIUM CHLORIDE 0.45%/POT 1,000 ML IV SCH ×3 (02:31→17:27)
[2017-03-16] MEDS ORDERED: PT OWN MED DRAWER 7, Y5N ONE (10:57)
--- NOTE | 2017-03-16 10:57 | PN ---
Progress Note, Physician Chief Complaint: tmax 101 in afternoon repeat cxr ordered for today to look at left lung opacification - Current Medication List Current Medications: Active Medications Acetaminophen (Tylenol -) 650 mg PO Q6H PRN PRN Reason: FEVER OR PAIN Last Admin: 03/15/17 15:09 Dose: 650 mg Acetylcysteine (Mucomyst 20 Oral / Inh Use Only*) 400 mg IH QIDR [facility] Last Admin: 03/16/17 06:55 Dose: 400 mg Albuterol Sulfate (Ventolin 0.083% Nebulizer Soln -) 1 amp NEB Q4H PRN PRN Reason: SHORT OF BREATH/WHEEZING Last Admin: 03/16/17 06:55 Dose: 1 amp Apixaban (Eliquis -) 2.5 mg PO BID [facility] Last Admin: 03/15/17 22:18 Dose: 2.5 mg Artificial Tears (Artificial Tears) 1 drop OU BID PRN PRN Reason: DRY EYES Ascorbic Acid (Vitamin C -) 250 mg PO DAILY [facility] Last Admin: 03/15/17 11:24 Dose: 250 mg Atorvastatin Calcium (Lipitor -) 10 mg PO HS [facility] Last Admin: 03/15/17 22:14 Dose: 10 mg Bacitracin (Bacitracin -) 1 applic TP DAILY [facility] Last Admin: 03/15/17 11:23 Dose: 1 applic Ferrous Sulfate (Feosol -) 325 mg PO BID [facility] Last Admin: 03/15/17 22:14 Dose: 325 mg Potassium Chloride/Sodium Chloride (1/2ns+20meq Kcl) 1,000 mls @ 75 mls/hr IV ASDIR [facility] Last Admin: 03/16/17 02:31 Dose: 75 mls/hr Lactobacillus Acidophilus (Bacid -) 1 tab PO DAILY [facility] Last Admin: 03/15/17 11:23 Dose: 1 tab Loratadine (Claritin -) 10 mg PO DAILY [facility] Last Admin: 03/15/17 11:23 Dose: 10 mg Mirtazapine (Remeron -) 15 mg PO HS [facility] Last Admin: 03/15/17 22:14 Dose: 15 mg Nystatin (Nystop Powder -) 1 applic TP DAILY [facility] Last Admin: 03/15/17 11:24 Dose: 1 applic Pantoprazole Sodium (Protonix -) 40 mg PO DAILY [facility] Last Admin: 03/15/17 11:23 Dose: 40 mg - Objective Vital Signs: Vital Signs Temperature 98.2 F 03/15/17 22:00 Pulse Rate 71 03/15/17 22:00 Respiratory Rate 44 H 03/16/17 10:43 Blood Pressure 102/59 03/15/17 22:00 O2 Sat by Pulse Oximetry (%) 96 03/16/17 10:43 Constitutional: Yes: Calm, Thin Neck: Yes: Other (trach) Cardiovascular: Yes: Regular Rate and Rhythm, S1, S2 Respiratory: Yes: Diminished (on left side) Gastrointestinal: Yes: Normal Bowel Sounds, Soft Edema: No Neurological: Yes: Alert Labs: CBC, BMP 03/12/17 08:45 03/12/17 08:45 INR, PTT INR 1.32 (0.82-1.09) H 02/26/17 17:45 Problem List - Problems (1) Atelectasis of left lung Assessment/Plan: repeat cxr today if persistant opacification on xray will need bronch Code(s): J98.11 - ATELECTASIS (2) Fever Assessment/Plan: temp 101 yesterday repeat blood work today Code(s): R50.9 - FEVER, UNSPECIFIED (3) UTI (urinary tract infection) Assessment/Plan: ESBL- isolation/ contaact precautions s/p 7 days of completion of meropenem Code(s): N39.0 - URINARY TRACT INFECTION, SITE NOT SPECIFIED Qualifiers: Urinary tract infection type: site unspecified Hematuria presence: without hematuria Qualified Code(s): N39.0 - Urinary tract infection, site not specified; R31.9 - Hematuria, unspecified (4) Anemia Assessment/Plan: repeat cbc and iron panel today got one unit prbc this admission got venofer this admission h/h stable on ferrous sulfate Code(s): D64.9 - ANEMIA, UNSPECIFIED Qualifiers: Anemia type: iron deficiency (5) Chronic respiratory failure Assessment/Plan: mechanically vented Code(s): J96.10 - CHRONIC RESPIRATORY FAILURE, UNSP W HYPOXIA OR HYPERCAPNIA Qualifiers: Respiratory failure complication: hypercapnia Qualified Code(s): J96.12 - Chronic respiratory failure with hypercapnia (6) PAF (paroxysmal atrial fibrillation) Assessment/Plan: now in sinus eliquis bid for stroke prevention Code(s): I48.0 - PAROXYSMAL ATRIAL FIBRILLATION
[2017-03-16] MEDS: LACTOBACILLUS ACIDOPHILUS 1 EACH TAB (FP) PO SCH (10:59)
[2017-03-16] MEDS: PANTOPRAZOLE 40 MG TABLET (FP) PO SCH (10:59)
[2017-03-16] MEDS: ASCORBIC ACID 250 MG TABLET (FP) PO SCH (10:59)
[2017-03-16] MEDS: FERROUS SO4 325 MG TABLET (FP) PO SCH ×2 (10:59→21:06)
[2017-03-16] MEDS: LORATADINE 10 MG TABLET PO SCH (10:59)
[2017-03-16] MEDS: APIXABAN 2.5 MG TABLET PO SCH ×2 (10:59→21:06)
[2017-03-16] MEDS: BACITRACIN 15 GM TUBE TOPICAL OINTMENT TP SCH (11:00)
[2017-03-16] MEDS: NYSTATIN POWDER 100,000 UNITS/GM - 15 GM TOPICAL POWDER TP SCH (11:00)
[2017-03-16] MEDS: ACETAMINOPHEN 325 MG TABLET (FP) PO PRN (11:10)
--- NOTE | 2017-03-16 11:41 | PN ---
Progress Note (short form) - Note Progress Note: PULMONARY AWAKE/VENTED VSS/AFEBRILE TRACH/ANICTERIC DIMINISHED BREATH SOUNDS LEFT S1S2 BS+ NO EDEMA LABS/MEDS/NOTES/IMAGING/MICRO REVIEWED CXR WORSENING A/P Acute on Chronic Hypoxic and Hypercapneic Respiratory Failure s/p Tracheostomy Pneumonia UTI Atelectasis Atrial Fibrillation COPD CHF - monitor fever curve, WBC trend - chest PT, pulmonary toilet - mucomyst - will discuss FOB with rest of team - DVT prophylaxis Brandi FLOREZ MD
[2017-03-16 12:01] LABS: BASOPHIL 1.2 % (0-2.0); MCH 25.4 pg (25.7-33.7); MCHC 31.4 g/dl (32.0-36.0); MEAN PLT VOLUME 8.3 fl (7.5-11.1); NEUTROPHILS 69.8 % (42.8-82.8); PLATELET COUNT 171 K/MM3 (134-434); RDW 17.3 % (11.6-15.6)
--- NOTE | 2017-03-16 12:15 | PN ---
Progress Note, [employer]RILL[employer] - Note Progress Note: Selected Entries 03/10/17 03/10/17 03/10/17 10:47 14:11 19:16 Breakfast Lunch Temperature 98.6 F 99.3 F 99.6 F 03/10/17 03/11/17 03/11/17 22:39 02:00 05:22 Breakfast Lunch Temperature 100.0 F H 99.2 F 98.6 F 03/11/17 03/11/17 03/11/17 09:05 11:30 14:32 Breakfast 50% Lunch 25% Temperature 99.5 F 101.0 F H 03/11/17 03/12/17 03/12/17 17:12 02:00 06:00 Breakfast Lunch Temperature 102.2 F H 98.2 F 99.4 F 03/12/17 03/12/17 10:00 11:03 Breakfast 50% Lunch Temperature 98.2 F Laboratory Tests 03/11/17 03/12/17 07:59 08:45 WBC 6.4 6.4 Selected Entries 03/15/17 03/15/17 03/15/17 02:00 06:00 10:00 Breakfast Lunch Supper Temperature 98.1 F 99.3 F 98.5 F 03/15/17 03/15/17 03/15/17 14:49 18:05 18:15 Breakfast 50% Lunch 50% Supper 50% Temperature 101.2 F H 97.2 F L 03/15/17 22:00 Breakfast Lunch Supper Temperature 98.2 F Medical events noted with Left opacification being monitored. Silent aspiration can not be r/o at bedside. Staff denies overt signs of aspiration. Reportedly no food suctioned from trach site. If aspiration is suspected by medical staff, MBS will be indicated to r/o silent aspiration.
[2017-03-16 12:34] LABS: ALBUMIN 2.3 g/dl (3.4-5.0); ALK PHOS 81 U/L (45-117); ANION GAP 7 (8-16); BILIRUBIN,TOTAL 0.4 mg/dL (0.2-1.0); CALCIUM 8.6 mg/dL (8.5-10.1); CO2 32 mmol/L (21-32); CREATININE 0.4 mg/dL (0.55-1.02); GLUCOSE,RANDOM 120 mg/dL (74-106); SGOT/AST 11 U/L (15-37); SGPT/ALT 9 U/L (12-78); TOT PROT 6.1 g/dl (6.4-8.2)
[2017-03-16] MEDS: MIRTAZAPINE 15 MG TABLET (FP) PO SCH (21:06)
[2017-03-16] MEDS: ATORVASTATIN CA 10 MG TABLET (FP) PO SCH (21:06)
[2017-03-17] MEDS: ALBUTEROL SO4 0.083% IH SOL 2.5 MG/3 ML VIAL.NEB. NEB PRN ×4 (00:44→19:30)
[2017-03-17] MEDS: ACETYLCYSTEINE 20% 200MG/ML 4 ML VIAL *FOR ORAL / INH USE ONLY IH SCH ×5 (00:44→18:29)
[2017-03-17] MEDS: SODIUM CHLORIDE 0.45%/POT 1,000 ML IV SCH ×2 (07:12→09:30)
[2017-03-17 08:07] LABS: SERUM IRON 20 ug/dL (27-139); TOTAL IRON BINDING CAPACITY 175 ug/dL (250-450); UIBC 155 ug/dL (118-369)
[2017-03-17] MEDS ORDERED: PT OWN MED DRAWER 7, Y5N ONE ×2 (09:26→20:00)
[2017-03-17] MEDS: FERROUS SO4 325 MG TABLET (FP) PO SCH ×2 (09:28→21:21)
[2017-03-17] MEDS: PANTOPRAZOLE 40 MG TABLET (FP) PO SCH (09:28)
[2017-03-17] MEDS: LACTOBACILLUS ACIDOPHILUS 1 EACH TAB (FP) PO SCH (09:28)
[2017-03-17] MEDS: APIXABAN 2.5 MG TABLET PO SCH (09:28)
[2017-03-17] MEDS: ASCORBIC ACID 250 MG TABLET (FP) PO SCH (09:28)
[2017-03-17] MEDS: LORATADINE 10 MG TABLET PO SCH (09:29)
[2017-03-17] MEDS: BACITRACIN 15 GM TUBE TOPICAL OINTMENT TP SCH (09:30)
--- NOTE | 2017-03-17 10:44 | PN ---
Progress Note (short form) - Note Progress Note: PULMONARY AWAKE/VENTED VSS/AFEBRILE TRACH/ANICTERIC DIMINISHED BREATH SOUNDS LEFT S1S2 BS+ NO EDEMA LABS/MEDS/NOTES/IMAGING/MICRO REVIEWED CXR WORSENING A/P Acute on Chronic Hypoxic and Hypercapneic Respiratory Failure s/p Tracheostomy Pneumonia UTI Atelectasis Atrial Fibrillation COPD CHF - broncho scheduled for Sunday/eliquis/diet to be held as ordered - monitor fever curve, WBC trend - chest PT, pulmonary toilet - mucomyst - DVT prophylaxis Brandi FLOREZ MD
--- NOTE | 2017-03-17 11:20 | PN ---
Progress Note, Physician Chief Complaint: my first encounter with this patient on this admission scheduled for bronchoscopy, holding eliquis - Current Medication List Current Medications: Active Medications Acetaminophen (Tylenol -) 650 mg PO Q6H PRN PRN Reason: FEVER OR PAIN Last Admin: 03/16/17 11:10 Dose: 650 mg Acetylcysteine (Mucomyst 20 Oral / Inh Use Only*) 400 mg IH QIDR [facility] Last Admin: 03/17/17 06:40 Dose: 400 mg Albuterol Sulfate (Ventolin 0.083% Nebulizer Soln -) 1 amp NEB Q4H PRN PRN Reason: SHORT OF BREATH/WHEEZING Last Admin: 03/17/17 06:40 Dose: 1 amp Apixaban (Eliquis -) 2.5 mg PO BID [facility] Last Admin: 03/17/17 09:28 Dose: 2.5 mg Artificial Tears (Artificial Tears) 1 drop OU BID PRN PRN Reason: DRY EYES Ascorbic Acid (Vitamin C -) 250 mg PO DAILY [facility] Last Admin: 03/17/17 09:28 Dose: 250 mg Atorvastatin Calcium (Lipitor -) 10 mg PO HS [facility] Last Admin: 03/16/17 21:06 Dose: 10 mg Bacitracin (Bacitracin -) 1 applic TP DAILY [facility] Last Admin: 03/17/17 09:30 Dose: 1 applic Ferrous Sulfate (Feosol -) 325 mg PO BID [facility] Last Admin: 03/17/17 09:28 Dose: 325 mg Potassium Chloride/Sodium Chloride (1/2ns+20meq Kcl) 1,000 mls @ 75 mls/hr IV ASDIR [facility] Last Admin: 03/17/17 09:30 Dose: Not Given Lactobacillus Acidophilus (Bacid -) 1 tab PO DAILY [facility] Last Admin: 03/17/17 09:28 Dose: 1 tab Loratadine (Claritin -) 10 mg PO DAILY [facility] Last Admin: 03/17/17 09:29 Dose: 10 mg Mirtazapine (Remeron -) 15 mg PO HS [facility] Last Admin: 03/16/17 21:06 Dose: 15 mg Nystatin (Nystop Powder -) 1 applic TP DAILY [facility] Last Admin: 03/16/17 11:00 Dose: 1 applic Pantoprazole Sodium (Protonix -) 40 mg PO DAILY [facility] Last Admin: 03/17/17 09:28 Dose: 40 mg - Objective Vital Signs: Vital Signs Temperature 99.1 F 03/17/17 06:00 Pulse Rate 80 03/17/17 06:00 Respiratory Rate 16 03/17/17 06:20 Blood Pressure 106/52 03/17/17 06:00 O2 Sat by Pulse Oximetry (%) 96 03/16/17 10:43 Constitutional: Yes: Mild Distress Eyes: Yes: WNL HENT: Yes: WNL Neck: Yes: WNL Cardiovascular: Yes: WNL Respiratory: Yes: Mechanically Ventilated Gastrointestinal: Yes: WNL Genitourinary: Yes: Incontinence Musculoskeletal: Yes: Muscle Weakness Extremities: Yes: WNL Edema: No Peripheral Pulses WNL: Yes Integumentary: Yes: Rash, Venous Stasis Changes Wound/Incision: Yes: Dressing Dry and Intact Neurological: Yes: Pre-Existing Deficit ...Motor Strength: LLE, RLE Psychiatric: Yes: Other Labs: CBC, BMP 03/16/17 11:43 03/16/17 11:43 INR, PTT INR 1.32 (0.82-1.09) H 02/26/17 17:45 Problem List - Problems (1) Anemia Code(s): D64.9 - ANEMIA, UNSPECIFIED Qualifiers: Anemia type: iron deficiency (2) COPD (chronic obstructive pulmonary disease) Code(s): J44.9 - CHRONIC OBSTRUCTIVE PULMONARY DISEASE, UNSPECIFIED Qualifiers : COPD type: unspecified COPD Qualified Code(s): J44.9 - Chronic obstructive pulmonary disease, unspecified (3) Chronic respiratory failure Code(s): J96.10 - CHRONIC RESPIRATORY FAILURE, UNSP W HYPOXIA OR HYPERCAPNIA Qualifiers: Respiratory failure complication: hypercapnia Qualified Code(s): J96.12 - Chronic respiratory failure with hypercapnia (4) Functional quadriplegia Code(s): R53.2 - FUNCTIONAL QUADRIPLEGIA Assessment/Plan hold eliquis for bronchoscopy labs reviewed pulm f/u appreciated continue current meds
[2017-03-17] MEDS: NYSTATIN POWDER 100,000 UNITS/GM - 15 GM TOPICAL POWDER TP SCH (11:26)
[2017-03-17] MEDS: MIRTAZAPINE 15 MG TABLET (FP) PO SCH (21:21)
[2017-03-17] MEDS: ATORVASTATIN CA 10 MG TABLET (FP) PO SCH (21:21)
[2017-03-18] MEDS: ALBUTEROL SO4 0.083% IH SOL 2.5 MG/3 ML VIAL.NEB. NEB PRN ×5 (00:15→23:30)
[2017-03-18] MEDS: ACETYLCYSTEINE 20% 200MG/ML 4 ML VIAL *FOR ORAL / INH USE ONLY IH SCH ×5 (00:15→23:30)
[2017-03-18] MEDS: FERROUS SO4 325 MG TABLET (FP) PO SCH ×2 (09:43→21:34)
[2017-03-18] MEDS: LACTOBACILLUS ACIDOPHILUS 1 EACH TAB (FP) PO SCH (09:43)
[2017-03-18] MEDS: PANTOPRAZOLE 40 MG TABLET (FP) PO SCH (09:43)
[2017-03-18] MEDS: LORATADINE 10 MG TABLET PO SCH (09:43)
[2017-03-18] MEDS: BACITRACIN 15 GM TUBE TOPICAL OINTMENT TP SCH (09:44)
[2017-03-18] MEDS: NYSTATIN POWDER 100,000 UNITS/GM - 15 GM TOPICAL POWDER TP SCH (09:44)
[2017-03-18] MEDS: SODIUM CHLORIDE 0.45%/POT 1,000 ML IV SCH (09:45)
[2017-03-18] MEDS ORDERED: PT OWN MED DRAWER 7, Y5N ONE (10:45)
[2017-03-18] MEDS: ASCORBIC ACID 250 MG TABLET (FP) PO SCH (10:51)
--- NOTE | 2017-03-18 10:52 | PN ---
Progress Note (short form) - Note Progress Note: PULMONARY AWAKE/VENTED VSS/AFEBRILE TRACH/ANICTERIC DIMINISHED BREATH SOUNDS LEFT S1S2 BS+ NO EDEMA LABS/MEDS/NOTES/IMAGING/MICRO REVIEWED CXR WORSENING A/P Acute on Chronic Hypoxic and Hypercapneic Respiratory Failure s/p Tracheostomy Pneumonia UTI Atelectasis Atrial Fibrillation COPD CHF - broncho scheduled for Sunday/eliquis/diet to be held as ordered/consent obtained from patient - monitor fever curve, WBC trend - chest PT, pulmonary toilet - mucomyst - DVT prophylaxis Brandi FLOREZ MD
--- NOTE | 2017-03-18 11:40 | PN ---
Progress Note, Physician Chief Complaint: AWAKE , STAFF CHANGING AND CLEANSING PATIENT NO ACUTE CHANGES SCHEDULED FOR BRONCHOSCOPY IN AM - Current Medication List Current Medications: Active Medications Acetaminophen (Tylenol -) 650 mg PO Q6H PRN PRN Reason: FEVER OR PAIN Last Admin: 03/16/17 11:10 Dose: 650 mg Acetylcysteine (Mucomyst 20 Oral / Inh Use Only*) 400 mg IH QIDR [facility] Last Admin: 03/18/17 07:06 Dose: 400 mg Albuterol Sulfate (Ventolin 0.083% Nebulizer Soln -) 1 amp NEB Q4H PRN PRN Reason: SHORT OF BREATH/WHEEZING Last Admin: 03/18/17 07:06 Dose: 1 amp Apixaban (Eliquis -) 2.5 mg PO BID [facility] Last Admin: 03/17/17 09:28 Dose: 2.5 mg Artificial Tears (Artificial Tears) 1 drop OU BID PRN PRN Reason: DRY EYES Ascorbic Acid (Vitamin C -) 250 mg PO DAILY [facility] Last Admin: 03/18/17 10:51 Dose: 250 mg Atorvastatin Calcium (Lipitor -) 10 mg PO HS [facility] Last Admin: 03/17/17 21:21 Dose: 10 mg Bacitracin (Bacitracin -) 1 applic TP DAILY [facility] Last Admin: 03/18/17 09:44 Dose: 1 applic Ferrous Sulfate (Feosol -) 325 mg PO BID [facility] Last Admin: 03/18/17 09:43 Dose: 325 mg Potassium Chloride/Sodium Chloride (1/2ns+20meq Kcl) 1,000 mls @ 75 mls/hr IV ASDIR [facility] Last Admin: 03/18/17 09:45 Dose: 75 mls/hr Lactobacillus Acidophilus (Bacid -) 1 tab PO DAILY [facility] Last Admin: 03/18/17 09:43 Dose: 1 tab Loratadine (Claritin -) 10 mg PO DAILY [facility] Last Admin: 03/18/17 09:43 Dose: 10 mg Mirtazapine (Remeron -) 15 mg PO HS [facility] Last Admin: 03/17/17 21:21 Dose: 15 mg Nystatin (Nystop Powder -) 1 applic TP DAILY [facility] Last Admin: 03/18/17 09:44 Dose: 1 applic Pantoprazole Sodium (Protonix -) 40 mg PO DAILY [facility] Last Admin: 03/18/17 09:43 Dose: 40 mg - Objective Vital Signs: Vital Signs Temperature 97.8 F 03/17/17 23:53 Pulse Rate 82 03/18/17 10:18 Respiratory Rate 14 03/18/17 10:18 Blood Pressure 101/63 03/17/17 23:53 O2 Sat by Pulse Oximetry (%) 97 03/18/17 10:18 Constitutional: Yes: No Distress Eyes: Yes: WNL HENT: Yes: WNL Neck: Yes: WNL Cardiovascular: Yes: WNL Respiratory: Yes: Mechanically Ventilated Gastrointestinal: Yes: Other Genitourinary: Yes: Incontinence Musculoskeletal: Yes: Muscle Weakness Extremities: Yes: Other Edema: No Peripheral Pulses WNL: Yes Integumentary: Yes: Rash Wound/Incision: Yes: Dressing Dry and Intact Neurological: Yes: Pre-Existing Deficit ...Motor Strength: LLE, RLE Psychiatric: Yes: WNL Labs: CBC, BMP 03/16/17 11:43 03/16/17 11:43 INR, PTT INR 1.32 (0.82-1.09) H 02/26/17 17:45 Problem List - Problems (1) Anemia Code(s): D64.9 - ANEMIA, UNSPECIFIED Qualifiers: Anemia type: iron deficiency (2) COPD (chronic obstructive pulmonary disease) Code(s): J44.9 - CHRONIC OBSTRUCTIVE PULMONARY DISEASE, UNSPECIFIED Qualifiers : COPD type: unspecified COPD Qualified Code(s): J44.9 - Chronic obstructive pulmonary disease, unspecified (3) Chronic respiratory failure Code(s): J96.10 - CHRONIC RESPIRATORY FAILURE, UNSP W HYPOXIA OR HYPERCAPNIA Qualifiers: Respiratory failure complication: hypercapnia Qualified Code(s): J96.12 - Chronic respiratory failure with hypercapnia (4) Functional quadriplegia Code(s): R53.2 - FUNCTIONAL QUADRIPLEGIA Assessment/Plan ELIQUIS ON HOLD BRONCHOSCOPY IN AM LABS REVIEWED VENT SUPPORT 02 THERAPY
[2017-03-18] MEDS: ACETAMINOPHEN 325 MG TABLET (FP) PO PRN (17:15)
[2017-03-18] MEDS: ATORVASTATIN CA 10 MG TABLET (FP) PO SCH (21:34)
[2017-03-18] MEDS: MIRTAZAPINE 15 MG TABLET (FP) PO SCH (21:34)
[2017-03-19] MEDS: ACETYLCYSTEINE 20% 200MG/ML 4 ML VIAL *FOR ORAL / INH USE ONLY IH SCH ×3 (07:03→18:04)
[2017-03-19] MEDS: ALBUTEROL SO4 0.083% IH SOL 2.5 MG/3 ML VIAL.NEB. NEB PRN ×2 (07:03→11:03)
--- NOTE | 2017-03-19 10:20 | PN ---
Progress Note, Physician Chief Complaint: UTI,Anemia, Pneumonia History of Present Illness: NAD, in bed, mechanically vented, alert -Repeat CXR showed no changes, complete opacification of left hemithorax indicating atelectasis. She is already on mucomyst, has cadet cath. -scheduled for bronchoscopy today -eliquis on hold -NPO - Current Medication List Current Medications: Active Medications Acetaminophen (Tylenol -) 650 mg PO Q6H PRN PRN Reason: FEVER OR PAIN Last Admin: 03/18/17 17:15 Dose: 650 mg Acetylcysteine (Mucomyst 20 Oral / Inh Use Only*) 400 mg IH QIDR [facility] Last Admin: 03/19/17 07:03 Dose: 400 mg Albuterol Sulfate (Ventolin 0.083% Nebulizer Soln -) 1 amp NEB Q4H PRN PRN Reason: SHORT OF BREATH/WHEEZING Last Admin: 03/19/17 07:03 Dose: 1 amp Apixaban (Eliquis -) 2.5 mg PO BID [facility] Last Admin: 03/17/17 09:28 Dose: 2.5 mg Artificial Tears (Artificial Tears) 1 drop OU BID PRN PRN Reason: DRY EYES Ascorbic Acid (Vitamin C -) 250 mg PO DAILY [facility] Last Admin: 03/18/17 10:51 Dose: 250 mg Atorvastatin Calcium (Lipitor -) 10 mg PO HS [facility] Last Admin: 03/18/17 21:34 Dose: 10 mg Bacitracin (Bacitracin -) 1 applic TP DAILY [facility] Last Admin: 03/18/17 09:44 Dose: 1 applic Ferrous Sulfate (Feosol -) 325 mg PO BID [facility] Last Admin: 03/18/17 21:34 Dose: 325 mg Potassium Chloride/Sodium Chloride (1/2ns+20meq Kcl) 1,000 mls @ 75 mls/hr IV ASDIR [facility] Last Admin: 03/18/17 09:45 Dose: 75 mls/hr Iron Sucrose 200 mg/ Sodium (Chloride) 250 mls @ 250 mls/hr IVPB DAILY [facility] Stop: 03/19/17 11:15 Lactobacillus Acidophilus (Bacid -) 1 tab PO DAILY [facility] Last Admin: 03/18/17 09:43 Dose: 1 tab Loratadine (Claritin -) 10 mg PO DAILY [facility] Last Admin: 03/18/17 09:43 Dose: 10 mg Mirtazapine (Remeron -) 15 mg PO HS [facility] Last Admin: 03/18/17 21:34 Dose: 15 mg Nystatin (Nystop Powder -) 1 applic TP DAILY [facility] Last Admin: 03/18/17 09:44 Dose: 1 applic Pantoprazole Sodium (Protonix -) 40 mg PO DAILY [facility] Last Admin: 03/18/17 09:43 Dose: 40 mg - Objective Vital Signs: Vital Signs Temperature 97.9 F 03/18/17 22:00 Pulse Rate 75 03/19/17 09:39 Respiratory Rate 28 H 03/19/17 09:40 Blood Pressure 101/54 03/18/17 22:00 O2 Sat by Pulse Oximetry (%) 98 03/19/17 09:40 Constitutional: Yes: Well Nourished, No Distress, Calm Cardiovascular: Yes: Pulse Irregular Respiratory: Yes: Diminished (LL), Mechanically Ventilated Gastrointestinal: Yes: Normal Bowel Sounds Musculoskeletal: Yes: WNL Extremities: Yes: WNL Edema: No Peripheral Pulses WNL: Yes Neurological: Yes: Alert, Oriented Psychiatric: Yes: Alert, Oriented Labs: CBC, BMP 03/16/17 11:43 03/16/17 11:43 INR, PTT INR 1.32 (0.82-1.09) H 02/26/17 17:45 Problem List - Problems (1) Anemia Assessment/Plan: much improved -ARNOL -Venofer daily until discharge Code(s): D64.9 - ANEMIA, UNSPECIFIED Qualifiers: Anemia type: iron deficiency (2) Chronic respiratory failure Assessment/Plan: -on mechanical ventilation -repeat CXR today worsening of left lung atelectasis -pulmonary on board -on mucomyst QID Code(s): J96.10 - CHRONIC RESPIRATORY FAILURE, UNSP W HYPOXIA OR HYPERCAPNIA Qualifiers: Respiratory failure complication: hypercapnia Qualified Code(s): J96.12 - Chronic respiratory failure with hypercapnia (3) UTI (urinary tract infection) Assessment/Plan: UC positive for proteus mirabilus esbl Completed 7 days of IV meropenem monitor off abx Code(s): N39.0 - URINARY TRACT INFECTION, SITE NOT SPECIFIED Qualifiers: Urinary tract infection type: site unspecified Hematuria presence: without hematuria Qualified Code(s): N39.0 - Urinary tract infection, site not specified; R31.9 - Hematuria, unspecified (4) Fever Assessment/Plan: -afebrile x 24 hours -repeat BC negative -seen by ID -tylenol for fever over 100.0F Code(s): R50.9 - FEVER, UNSPECIFIED (5) Functional quadriplegia Code(s): R53.2 - FUNCTIONAL QUADRIPLEGIA (6) Leukocytosis Assessment/Plan: -normalized -BC negative Code(s): D72.829 - ELEVATED WHITE BLOOD CELL COUNT, UNSPECIFIED (7) Atelectasis of left lung Assessment/Plan: -repeat CXR on 03/12/17 showed no change in the left lung atelectasis -going for bronchoscopy today, time unknown yet -has cudet catheter -on mucomyst Code(s): J98.11 - ATELECTASIS Assessment/Plan see problem list
[2017-03-19] MEDS ORDERED: PT OWN MED DRAWER 7, Y5N ONE (10:33)
[2017-03-19] MEDS: LACTOBACILLUS ACIDOPHILUS 1 EACH TAB (FP) PO SCH (11:08)
[2017-03-19] MEDS: PANTOPRAZOLE 40 MG TABLET (FP) PO SCH (11:09)
[2017-03-19] MEDS: FERROUS SO4 325 MG TABLET (FP) PO SCH ×2 (11:09→23:14)
[2017-03-19] MEDS: ASCORBIC ACID 250 MG TABLET (FP) PO SCH (11:09)
[2017-03-19] MEDS: LORATADINE 10 MG TABLET PO SCH (11:09)
[2017-03-19] MEDS: NYSTATIN POWDER 100,000 UNITS/GM - 15 GM TOPICAL POWDER TP SCH (11:17)
[2017-03-19] MEDS: BACITRACIN 15 GM TUBE TOPICAL OINTMENT TP SCH (11:17)
[2017-03-19] MEDS ORDERED: IRON SUCROSE INJECTION 200 MG in SODIUM CHLORIDE 100 ML IVPB ONE (11:30)
[2017-03-19] MEDS ORDERED: PROPOFOL 20 ML ONE (12:46)
[2017-03-19] MEDS ORDERED: ROCURONIUM BROMIDE 50 MG/5 ML VIAL ONE (12:46)
[2017-03-19] MEDS ORDERED: ACETYLCYSTEINE 20% 200MG/ML 4 ML VIAL *FOR ORAL / INH USE ONLY NEB ONE (12:55)
--- NOTE | 2017-03-19 13:49 | PROC ---
Procedure Note Procedure: BRONCHOSCOPY NOTE After discussing risks and benefits, informed consent was obtained. Pt was placed under general anesthesia by anesthesiologist. [employer] video bronchoscope was passed via the tracheostomy and the airways were examined down to the subsegmental level. The mary beth was widened, there were no endobronchial lesions noted on the right. The left main bronchus was occluded by a large mucous plug that was easily lavaged away. Source of the mucous appeared to be from the left lower lobe. There were no endobronchial lesions noted post removal of the mucous plug. Recruitment maneuvers were performed and mucomyst was then instilled into the left lower lobe. Bronchoscope withdrawn and procedure terminated. No immediate complications. Pre-op Dx: atelectasis Post-op Dx: atelectasis from mucous plugging Plan: - f/u cultures - repeat CXR Ibrahima Ferris MD
--- NOTE | 2017-03-19 13:52 | PN ---
Progress Note (short form) - Note Progress Note: PULMONARY s/p bronchoscopy showing large left mucous plug occluding the left main bronchus. No endobronchial lesions noted. Mucomyst instilled into LLL. Post bronchoscopy CXR with slightly improvement of left atelectasis but not significant. Last Vital Signs Temp Pulse Resp BP Pulse Ox 98 F 79 18 112/52 98 03/19/17 08:00 03/19/17 12:04 03/19/17 10:40 03/19/17 12:04 03/19/17 09:40 Gen: vented, awake Heart: RRR Lung: scattered rhonchi, decreased breath sounds on left Abd: soft, nontender Ext: no edema CBC, BMP 03/16/17 11:43 03/16/17 11:43 Active Medications Acetaminophen (Tylenol -) 650 mg PO Q6H PRN PRN Reason: FEVER OR PAIN Last Admin: 03/18/17 17:15 Dose: 650 mg Acetylcysteine (Mucomyst 20 Oral / Inh Use Only*) 400 mg IH QIDR [facility] Last Admin: 03/19/17 11:03 Dose: 400 mg Albuterol Sulfate (Ventolin 0.083% Nebulizer Soln -) 1 amp NEB Q4H PRN PRN Reason: SHORT OF BREATH/WHEEZING Last Admin: 03/19/17 11:03 Dose: 1 amp Apixaban (Eliquis -) 2.5 mg PO BID [facility] Last Admin: 03/17/17 09:28 Dose: 2.5 mg Artificial Tears (Artificial Tears) 1 drop OU BID PRN PRN Reason: DRY EYES Ascorbic Acid (Vitamin C -) 250 mg PO DAILY [facility] Last Admin: 03/19/17 11:09 Dose: 250 mg Atorvastatin Calcium (Lipitor -) 10 mg PO HS [facility] Last Admin: 03/18/17 21:34 Dose: 10 mg Bacitracin (Bacitracin -) 1 applic TP DAILY [facility] Last Admin: 03/19/17 11:17 Dose: 1 applic Ferrous Sulfate (Feosol -) 325 mg PO BID [facility] Last Admin: 03/19/17 11:09 Dose: 325 mg Potassium Chloride/Sodium Chloride (1/2ns+20meq Kcl) 1,000 mls @ 75 mls/hr IV ASDIR [facility] Last Admin: 03/18/17 09:45 Dose: 75 mls/hr Lactobacillus Acidophilus (Bacid -) 1 tab PO DAILY [facility] Last Admin: 03/19/17 11:08 Dose: 1 tab Loratadine (Claritin -) 10 mg PO DAILY [facility] Last Admin: 03/19/17 11:09 Dose: 10 mg Mirtazapine (Remeron -) 15 mg PO HS [facility] Last Admin: 03/18/17 21:34 Dose: 15 mg Nystatin (Nystop Powder -) 1 applic TP DAILY [facility] Last Admin: 03/19/17 11:17 Dose: 1 applic Pantoprazole Sodium (Protonix -) 40 mg PO DAILY [facility] Last Admin: 03/19/17 11:09 Dose: 40 mg A/P Acute on Chronic Hypoxic and Hypercapneic Respiratory Failure s/p Tracheostomy Pneumonia UTI Atelectasis Atrial Fibrillation COPD CHF - antibiotics completed - monitor fever curve, WBC trend - chest PT, pulmonary toilet - continue mucomyst - repeat CXR in AM - DVT prophylaxis
[2017-03-19] MEDS: SODIUM CHLORIDE 0.45%/POT 1,000 ML IV SCH (15:01)
[2017-03-19] MEDS: MIRTAZAPINE 15 MG TABLET (FP) PO SCH (23:14)
[2017-03-19] MEDS: ATORVASTATIN CA 10 MG TABLET (FP) PO SCH (23:15)
[2017-03-19] MEDS: APIXABAN 2.5 MG TABLET PO SCH (23:15)
[2017-03-20] MEDS: ACETYLCYSTEINE 20% 200MG/ML 4 ML VIAL *FOR ORAL / INH USE ONLY IH SCH ×2 (06:22→12:00)
--- NOTE | 2017-03-20 08:19 | PN ---
Progress Note (short form) - Note Progress Note: Anesthesia POD#1 S/P Bronchoscopy under GA. Still on ventilator,some fever.No N/V. VSS. No other complications seen. Myra Franklin MD
[2017-03-20] MEDS ORDERED: PT OWN MED DRAWER 7, Y5N ONE (09:00)
[2017-03-20 09:11] VITALS: BP 105/57; TEMP 98.2
[2017-03-20] MEDS: PANTOPRAZOLE 40 MG TABLET (FP) PO SCH (09:14)
[2017-03-20] MEDS: LORATADINE 10 MG TABLET PO SCH (09:14)
[2017-03-20] MEDS: SODIUM CHLORIDE 0.45%/POT 1,000 ML IV SCH (09:14)
[2017-03-20] MEDS: APIXABAN 2.5 MG TABLET PO SCH (09:14)
[2017-03-20] MEDS: FERROUS SO4 325 MG TABLET (FP) PO SCH (09:14)
[2017-03-20] MEDS: ASCORBIC ACID 250 MG TABLET (FP) PO SCH (09:14)
[2017-03-20] MEDS: LACTOBACILLUS ACIDOPHILUS 1 EACH TAB (FP) PO SCH (09:14)
[2017-03-20] MEDS: NYSTATIN POWDER 100,000 UNITS/GM - 15 GM TOPICAL POWDER TP SCH (09:16)
[2017-03-20] MEDS: BACITRACIN 15 GM TUBE TOPICAL OINTMENT TP SCH (09:16)
[2017-03-20 10:06] VITALS: PULSE 86
--- NOTE | 2017-03-20 10:53 | PN ---
Progress Note, Physician Chief Complaint: UTI,Anemia, Pneumonia History of Present Illness: NAD, in bed, mechanically vented, alert -She is already on mucomyst, has cadet cath. -S/P bronchoscopy yesterday, removed large mucous plug, was lavaged with mucomyst -eliquis resumed -repeat CXR today shows no change in left hemithorax - Current Medication List Current Medications: Active Medications Acetaminophen (Tylenol -) 650 mg PO Q6H PRN PRN Reason: FEVER OR PAIN Last Admin: 03/18/17 17:15 Dose: 650 mg Acetylcysteine (Mucomyst 20 Oral / Inh Use Only*) 400 mg IH QIDR [facility] Last Admin: 03/20/17 06:22 Dose: Not Given Apixaban (Eliquis -) 2.5 mg PO BID [facility] Last Admin: 03/20/17 09:14 Dose: 2.5 mg Artificial Tears (Artificial Tears) 1 drop OU BID PRN PRN Reason: DRY EYES Ascorbic Acid (Vitamin C -) 250 mg PO DAILY [facility] Last Admin: 03/20/17 09:14 Dose: 250 mg Atorvastatin Calcium (Lipitor -) 10 mg PO HS [facility] Last Admin: 03/19/17 23:15 Dose: 10 mg Bacitracin (Bacitracin -) 1 applic TP DAILY [facility] Last Admin: 03/20/17 09:16 Dose: 1 applic Ferrous Sulfate (Feosol -) 325 mg PO BID [facility] Last Admin: 03/20/17 09:14 Dose: 325 mg Potassium Chloride/Sodium Chloride (1/2ns+20meq Kcl) 1,000 mls @ 75 mls/hr IV ASDIR [facility] Last Admin: 03/20/17 09:14 Dose: 75 mls/hr Lactobacillus Acidophilus (Bacid -) 1 tab PO DAILY [facility] Last Admin: 03/20/17 09:14 Dose: 1 tab Loratadine (Claritin -) 10 mg PO DAILY [facility] Last Admin: 03/20/17 09:14 Dose: 10 mg Mirtazapine (Remeron -) 15 mg PO HS [facility] Last Admin: 03/19/17 23:14 Dose: 15 mg Nystatin (Nystop Powder -) 1 applic TP DAILY [facility] Last Admin: 03/20/17 09:16 Dose: 1 applic Pantoprazole Sodium (Protonix -) 40 mg PO DAILY [facility] Last Admin: 03/20/17 09:14 Dose: 40 mg - Objective Vital Signs: Vital Signs Temperature 98.2 F 03/20/17 09:10 Pulse Rate 86 03/20/17 10:04 Respiratory Rate 18 03/20/17 10:04 Blood Pressure 105/57 03/20/17 09:10 O2 Sat by Pulse Oximetry (%) 100 03/20/17 10:04 Constitutional: Yes: Well Nourished, No Distress, Calm Cardiovascular: Yes: Pulse Irregular Respiratory: Yes: Diminished (LL), Mechanically Ventilated Gastrointestinal: Yes: Normal Bowel Sounds Edema: No Peripheral Pulses WNL: Yes Neurological: Yes: Alert, Oriented Psychiatric: Yes: Alert, Oriented Labs: CBC, BMP 03/16/17 11:43 03/16/17 11:43 INR, PTT INR 1.32 (0.82-1.09) H 02/26/17 17:45 Problem List - Problems (1) Anemia Assessment/Plan: much improved -ARNOL -Venofer daily until discharge Code(s): D64.9 - ANEMIA, UNSPECIFIED Qualifiers: Anemia type: iron deficiency (2) Chronic respiratory failure Assessment/Plan: -on mechanical ventilation -repeat CXR today left lung atelectasis -pulmonary on board -on mucomyst QID Code(s): J96.10 - CHRONIC RESPIRATORY FAILURE, UNSP W HYPOXIA OR HYPERCAPNIA Qualifiers: Respiratory failure complication: hypercapnia Qualified Code(s): J96.12 - Chronic respiratory failure with hypercapnia (3) Functional quadriplegia Code(s): R53.2 - FUNCTIONAL QUADRIPLEGIA (4) Leukocytosis Assessment/Plan: -normalized -BC negative Code(s): D72.829 - ELEVATED WHITE BLOOD CELL COUNT, UNSPECIFIED (5) Atelectasis of left lung Assessment/Plan: -repeat CXR showed left lung atelectasis -s/p bronchoscopy -has cudet catheter -on mucomyst Code(s): J98.11 - ATELECTASIS Assessment/Plan will discuss plan of care with pulmonary.
--- NOTE | 2017-03-20 11:38 | PN ---
Progress Note, Physician History of Present Illness: pulmonary alert,no distress on vent support.post bronchoscopy course stable - Current Medication List Current Medications: Active Medications Acetaminophen (Tylenol -) 650 mg PO Q6H PRN PRN Reason: FEVER OR PAIN Last Admin: 03/18/17 17:15 Dose: 650 mg Acetylcysteine (Mucomyst 20 Oral / Inh Use Only*) 400 mg IH QIDR [facility] Last Admin: 03/20/17 06:22 Dose: Not Given Apixaban (Eliquis -) 2.5 mg PO BID [facility] Last Admin: 03/20/17 09:14 Dose: 2.5 mg Artificial Tears (Artificial Tears) 1 drop OU BID PRN PRN Reason: DRY EYES Ascorbic Acid (Vitamin C -) 250 mg PO DAILY [facility] Last Admin: 03/20/17 09:14 Dose: 250 mg Atorvastatin Calcium (Lipitor -) 10 mg PO HS [facility] Last Admin: 03/19/17 23:15 Dose: 10 mg Bacitracin (Bacitracin -) 1 applic TP DAILY [facility] Last Admin: 03/20/17 09:16 Dose: 1 applic Ferrous Sulfate (Feosol -) 325 mg PO BID [facility] Last Admin: 03/20/17 09:14 Dose: 325 mg Potassium Chloride/Sodium Chloride (1/2ns+20meq Kcl) 1,000 mls @ 75 mls/hr IV ASDIR [facility] Last Admin: 03/20/17 09:14 Dose: 75 mls/hr Lactobacillus Acidophilus (Bacid -) 1 tab PO DAILY [facility] Last Admin: 03/20/17 09:14 Dose: 1 tab Loratadine (Claritin -) 10 mg PO DAILY [facility] Last Admin: 03/20/17 09:14 Dose: 10 mg Mirtazapine (Remeron -) 15 mg PO HS [facility] Last Admin: 03/19/17 23:14 Dose: 15 mg Nystatin (Nystop Powder -) 1 applic TP DAILY [facility] Last Admin: 03/20/17 09:16 Dose: 1 applic Pantoprazole Sodium (Protonix -) 40 mg PO DAILY [facility] Last Admin: 03/20/17 09:14 Dose: 40 mg - Objective Vital Signs: Vital Signs Temperature 98.2 F 03/20/17 09:10 Pulse Rate 86 03/20/17 10:04 Respiratory Rate 18 03/20/17 10:04 Blood Pressure 105/57 03/20/17 09:10 O2 Sat by Pulse Oximetry (%) 100 03/20/17 10:04 Constitutional: Yes: Calm, Thin Eyes: Yes: WNL HENT: Yes: WNL Neck: Yes: Supple Cardiovascular: Yes: Pulse Irregular, S1, S2 Respiratory: Yes: Diminished Gastrointestinal: Yes: Normal Bowel Sounds, Soft Extremities: Yes: WNL Edema: No Labs: CBC, BMP - ....Imaging Chest X-ray: Report Reviewed, Image Reviewed (no change left lung atelectasis) Problem List - Problems (1) Anemia Code(s): D64.9 - ANEMIA, UNSPECIFIED Qualifiers: Anemia type: iron deficiency (2) COPD (chronic obstructive pulmonary disease) Code(s): J44.9 - CHRONIC OBSTRUCTIVE PULMONARY DISEASE, UNSPECIFIED Qualifiers : COPD type: unspecified COPD Qualified Code(s): J44.9 - Chronic obstructive pulmonary disease, unspecified (3) Chronic respiratory failure Code(s): J96.10 - CHRONIC RESPIRATORY FAILURE, UNSP W HYPOXIA OR HYPERCAPNIA Qualifiers: Respiratory failure complication: hypercapnia Qualified Code(s): J96.12 - Chronic respiratory failure with hypercapnia (4) AICD (automatic cardioverter/defibrillator) present Code(s): Z95.810 - PRESENCE OF AUTOMATIC (IMPLANTABLE) CARDIAC DEFIBRILLATOR (5) Acute and chronic respiratory failure with hypercapnia Code(s): J96.22 - ACUTE AND CHRONIC RESPIRATORY FAILURE WITH HYPERCAPNIA (6) HTN (hypertension) Code(s): I10 - ESSENTIAL (PRIMARY) HYPERTENSION (7) Hyperlipemia Code(s): E78.5 - HYPERLIPIDEMIA, UNSPECIFIED (8) PAF (paroxysmal atrial fibrillation) Code(s): I48.0 - PAROXYSMAL ATRIAL FIBRILLATION (9) Respirator dependence Code(s): Z99.11 - DEPENDENCE ON RESPIRATOR [VENTILATOR] STATUS (10) Atelectasis of left lung Code(s): J98.11 - ATELECTASIS (11) Atelectasis Code(s): J98.11 - ATELECTASIS Assessment/Plan IMP ACUTE ON CHRONIC HYPOXEMIC/HYPERCAPNEIC RESPIRATORY FAILURE LEFT LUNG ATELECTASIS END STAGE COPD AFIB CHF H/O GI BLEED PLAN VENT SUPPORT ON AC MODE INHALED BRONCHODILATORS TRACHEAL SUCTIONING WITH CUDET CATH MUCOMYST CHEST X-RAY DR CABRERA
[2017-03-20] MEDS ORDERED: ALBUTEROL SO4 0.083% IH SOL 2.5 MG/3 ML VIAL.NEB. NEB ONE (12:02)
[2017-03-20] MEDS ORDERED: ALBUTEROL SO4 0.083% IH SOL 2.5 MG/3 ML VIAL.NEB. NEB PRN (12:30)
--- NOTE | 2017-03-20 13:44 | DS ---
Physical Examination Vital Signs: Vital Signs Temperature 98.2 F 03/20/17 09:10 Pulse Rate 86 03/20/17 10:04 Respiratory Rate 18 03/20/17 10:04 Blood Pressure 105/57 03/20/17 09:10 O2 Sat by Pulse Oximetry (%) 100 03/20/17 10:04 Constitutional: Yes: Well Nourished, No Distress, Calm Cardiovascular: Yes: Pulse Irregular Respiratory: Yes: Diminished (LL), Mechanically Ventilated Edema: No Peripheral Pulses WNL: Yes Neurological: Yes: Alert, Oriented Psychiatric: Yes: Alert, Oriented Labs: CBC, BMP 03/16/17 11:43 03/16/17 11:43 Discharge Summary Reason For Visit: URINARY TRACT INFECTION,CHRONIC RESPIRATORY Current Active Problems Anemia (Acute) Atelectasis (Acute) Atelectasis of left lung (Acute) COPD (chronic obstructive pulmonary disease) (Acute) Chronic respiratory failure (Acute) Dehydration (Acute) Functional quadriplegia (Acute) Leukocytosis (Acute) Pneumonia (Acute) UTI (urinary tract infection) (Acute) Hospital Course: Patient originally came in to the hospital for Left lung atelectasis, febrile, thought to have PNE. She was also diagnosed with UTI with: Microbiology 03/19/17 13:45 Bronchial Washings - Left Lower Lobe Gram Stain - Final 03/19/17 13:45 Bronchial Washings - Left Lower Lobe Bronchoalveolar Lavage Culture - Preliminary Non Lactose Fermenting Gnb Gram Negative Francis 03/19/17 13:45 Bronchial Washings - Left Lower Lobe AFB Smear Concentration - Preliminary 03/19/17 13:45 Bronchial Washings - Left Lower Lobe Mycobacterial Culture - Preliminary 03/19/17 13:45 Bronchial Washings - Left Lower Lobe LAURA Preparation - Preliminary 03/19/17 13:45 Bronchial Washings - Left Lower Lobe Fungal Culture - Preliminary 03/11/17 19:00 Sputum - Endotrachea Suction/Ventilator Sputum Culture - Final Acinetobacter Baumannii/Haemol Morganella Morganii 02/27/17 07:45 Sputum - Endotracheal Suction W/O Vent Sputum Culture - Final Morganella Morganii Pseudomonas Aeruginosa Morganella Morganii#2 02/26/17 20:02 Urine - Urine - Catheterized Urine Culture - Final Proteus Mirabilus - Esbl Produ 02/26/17 17:45 Blood - Peripheral Venous Blood Culture - Final Staphylococcus Epidermidis She was seen by Infectious disease, was placed on IV abx. Her overall symptoms improved although she continued to have left lung atelectasis. She was treated with mucomyst, albuterol and cudet catheter with no relief of atelectasis. Bronchoscopy was done on her on 03/19/17, during which large mucous plug was removed. However, she continues to have left lung atelectasis, which could take few days to improve. Because she is asymptomatic, at this time, she was cleared by pulmonary to be discharged back to [facility] where she will continue nebulizer treatments and cudet catheter for suctioning. She will need repeat CXR and labs in 1 week. Condition: Stable - Instructions Diet, Activity, Other Instructions: Diet: Dysphagia chopped with thin liquids Follow up: 1. CXR in 1 week 2. CBC/CMP in 1 week 3. KCL 20 meq orally daily Referrals: Royer Verduzco MD [Primary Care Provider] - [facility] - Home Medications Comprehensive Discharge Medication List: Ambulatory Orders Acetaminophen [Tylenol] 650 mg PO Q4H PRN 10/19/16 Ascorbic Acid [Vitamin C -] 500 mg PO DAILY 10/19/16 Docusate Sodium 300 mg PO HS 10/19/16 Aa/Hydrolyzed Collagen, Whey [Lps 15-30 Liquid] 30 ml PO BID 01/08/17 Bacitracin - [Bacitracin Topical Ointment -] 1 applic TP TID 01/08/17 Acetaminophen [Tylenol .Regular Strength -] 650 mg PO Q6H PRN #0 tablet Acetylcysteine Po/INH 20% [Mucomyst 20 Oral / INH Use Only*] 400 mg IH QIDR #1 vial 03/20/17 Albuterol 0.083% Nebulizer Yady [Ventolin 0.083% Nebulizer Soln -] 1 amp NEB Q4H PRN #180 amp 03/20/17 Albuterol 0.083% Nebulizer Yady [Ventolin 0.083% Nebulizer Soln -] 1 amp NEB Q4H PRN #180 amp 03/20/17 Apixaban [Eliquis -] 2.5 mg PO BID tablet 03/20/17 Ascorbic Acid [Vitamin C -] 250 mg PO DAILY #30 tablet 03/20/17 Atorvastatin Ca [Lipitor] 10 mg PO HS #30 tablet 03/20/17 Bacitracin - [Bacitracin Topical Ointment -] 1 applic TP DAILY tube 03/20/17 Ferrous Sulfate 325 mg PO BID #60 tab 03/20/17 Ferrous Sulfate [Feosol] 325 mg PO BID #60 tab 03/20/17 Hypromellose 0.5% Opth Soln [Artificial Tears] 1 drop OU BID #1 bottle 03/20/17 L. Acidophilus/Pectin, [place] [Acidophilus Capsule] 1 tab PO DAILY #30 cap 03/20 Lactobacillus Acidophilus [Bacid -] 1 tab PO DAILY #30 tab 03/20/17 Loratadine [Claritin -] 10 mg PO DAILY #30 tablet 03/20/17 Mirtazapine 15 mg PO HS #30 tab 03/20/17 Mirtazapine [Remeron -] 15 mg PO HS #30 tablet 03/20/17 Multivitamins [Multivit ([facility] Formulary)] 1 tab PO DAILY #30 tab 03/20/17 Nystatin Powder [Nystop Powder -] 1 applic TP DAILY #1 applic 03/20/17 Pantoprazole Sodium [Protonix -] 40 mg PO DAILY #30 tab 03/20/17 Polyvinyl Alcohol [Artificial Tears] 1 drop OU BID PRN #1 bottle 03/20/17 Potassium Chloride Oral Soln [KCl Oral Solution] 20 meq PO DAILY #30 cup
== END 2017-03-20 15:56 | DRG 207 ==
LOC: JER 17:05 → JERBED 21:11 → J5S 02-27 17:09
PROVIDERS: ADMIT Family Medicine; ATTEND Family Medicine
PROC: 5A1955Z Respiratory Ventilation, Greater than 96 Consecutive Hours (ICD-10-PCS; 2017-02-26)
PROC: 30233H1 Transfusion of Nonautologous Whole Blood into Peripheral Vein, Percutaneous Approach (ICD-10-PCS; 2017-02-28)
PROC: 3E1F88Z Irrigation of Respiratory Tract using Irrigating Substance, Via Natural or Artificial Opening Endoscopic (ICD-10-PCS; principal; 2017-03-19 12:00)
DX: J98.11 Atelectasis (principal); J96.21 Acute and chronic respiratory failure with hypoxia; J96.22 Acute and chronic respiratory failure with hypercapnia; J18.9 Pneumonia, unspecified organism; R53.2 Functional quadriplegia; T17.590A Other foreign object in bronchus causing asphyxiation, initial encounter; N39.0 Urinary tract infection, site not specified; Z99.11 Dependence on respirator [ventilator] status; J96.12 Chronic respiratory failure with hypercapnia; R64 Cachexia; Z68.1 Body mass index [BMI] 19.9 or less, adult; X58.XXXA Exposure to other specified factors, initial encounter; Y93.89 Activity, other specified; Y92.122 Bedroom in nursing home as the place of occurrence of the external cause; Y99.8 Other external cause status; Z93.0 Tracheostomy status; D64.9 Anemia, unspecified; I48.0 Paroxysmal atrial fibrillation; Z79.01 Long term (current) use of anticoagulants; I50.9 Heart failure, unspecified; Z86.74 Personal history of sudden cardiac arrest; J44.9 Chronic obstructive pulmonary disease, unspecified; I10 Essential (primary) hypertension; G31.83 Neurocognitive disorder with Lewy bodies; F02.80 Dementia in other diseases classified elsewhere, unspecified severity, without behavioral disturbance, psychotic disturbance, mood disturbance, and anxiety; E78.5 Hyperlipidemia, unspecified; Z95.810 Presence of automatic (implantable) cardiac defibrillator; R19.5 Other fecal abnormalities; B96.4 Proteus (mirabilis) (morganii) as the cause of diseases classified elsewhere; D72.829 Elevated white blood cell count, unspecified; R13.10 Dysphagia, unspecified
CPT/HCPCS: 36415; 36430; 36600; 71010-TC; 76000-TC; 80053; 81003; 81015; 82272; 82607; 82728; 82746; 82784; 82803; 83540; 83550; 83605; 84155; 84165; 84443; 84484; 85025; 85027; 85610; 85730; 86334; 86850; 86900; 86901; 86922; 87040; 87070; 87086; 87102; 87116; 87186; 87205; 87206; 87210; 93005; 93010; 94002; 94640; 94760; 99285-25; J1756; J3480; P9038; P9058

== ENCOUNTER 2017-04-22 23:41 | Inpatient (IN) | payer OTHER ==
--- NOTE | 2017-04-22 23:48 | PDOC ---
History of Present Illness - History of Present Illness Initial Comments: 04/23/17 01:12 The patient is an 81 year old female, with a significant past medical history of multiple comorbidities including iron deficiency anemia, HTN, hyperlipidemia , end-stage COPD s/p , tracheotomy on a ventilator, chronic respiratory failure , CHF, cardiac arrest (1998), GERD and upper GI bleed, who was sent to the emergency department via EMS from [facility] by Dr. Verduzco for evaluation of facial rashfor [address] Verduzco requests admission for Abx treatment today.. HPI is limited due to patients clinical condition but is able to shake/ nod her head to basic questions and pt denies any chest pain, sob, fevers, abd pain. Allergies: Doxycycline, Clams Past Surgical History: AICD Placement PCP - Dr. Cook Asset Management Analyst - Dr. Verduzco <Apolonia Slade - Last Filed: 04/23/17 01:12> <Isiah Cosby - Last Filed: 04/24/17 09:22> - General Chief Complaint: Wound Infection Stated Complaint: FACIAL SWELLING Time Seen by Provider: 04/22/17 23:48 Past History <Apolonia Slade - Last Filed: 04/23/17 01:12> - Past Medical History Anemia: Yes Asthma: No Cancer: No Cardiac Disorders: Yes (CARDIAC ARREST 1998, af) CVA: No COPD: Yes CHF: No Dementia: Yes (SHORT TERM MEMORY LOSS) Diabetes: No GI Disorders: No Disorders: No HTN: Yes Hypercholesterolemia: Yes Liver Disease: No Seizures: No Thyroid Disease: No - Surgical History Abdominal Surgery: No Appendectomy: No Cardiac Surgery: Yes (DEFIBRILLATOR) Cholecystectomy: No Lung Surgery: No Neurologic Surgery: No Orthopedic Surgery: No - Immunization History Immunization Up to Date: Yes - Suicide/Smoking/Psychosocial Hx Smoking History: Unknown if ever smoked Have you smoked in the past 12 months: No Number of Cigarettes Smoked Daily: 0 Cigars Per Day: 0 Hx Alcohol Use: No Drug/Substance Use Hx: No Substance Use Type: None <Isiah Cosby - Last Filed: 04/24/17 09:22> - Past Medical History Allergies/Adverse Reactions: Allergies Allergy/AdvReac Type Severity Reaction Status Date / Time doxycycline Allergy Intermediate Verified 04/22/17 23:48 CLAMS Allergy Intermediate Hives Uncoded 04/22/17 23:48 Home Medications: Ambulatory Orders Ascorbic Acid [Vitamin C -] 500 mg PO DAILY 10/19/16 Docusate Sodium 300 mg PO HS 10/19/16 Aa/Hydrolyzed Collagen, Whey [Lps 15-30 Liquid] 30 ml PO BID 01/08/17 Acetaminophen [Tylenol .Regular Strength -] 650 mg PO Q6H PRN #0 tablet Albuterol 0.083% Nebulizer Yady [Ventolin 0.083% Nebulizer Soln -] 1 amp NEB Q4H PRN #180 amp 03/20/17 Apixaban [Eliquis -] 2.5 mg PO BID tablet 03/20/17 Atorvastatin Ca [Lipitor] 10 mg PO HS #30 tablet 03/20/17 Ferrous Sulfate 325 mg PO BID #60 tab 03/20/17 Hypromellose 0.5% Opth Soln [Artificial Tears] 1 drop OU BID #1 bottle 03/20/17 Lactobacillus Acidophilus [Bacid -] 1 tab PO DAILY #30 tab 03/20/17 Loratadine [Claritin -] 10 mg PO DAILY #30 tablet 03/20/17 Mirtazapine [Remeron -] 15 mg PO HS #30 tablet 03/20/17 Multivitamins [Multivit ([facility] Formulary)] 1 tab PO DAILY #30 tab 03/20/17 Nystatin Powder [Nystop Powder -] 1 applic TP DAILY #1 applic 03/20/17 Pantoprazole Sodium [Protonix -] 40 mg PO DAILY #30 tab 03/20/17 Polyvinyl Alcohol [Artificial Tears] 1 drop OU BID PRN #1 bottle 03/20/17 Potassium Chloride Oral Soln [KCl Oral Solution] 20 meq PO DAILY #30 cup Review of Systems - Review of Systems Able to Perform ROS?: No Comments:: 04/23/17 01:12 unable to obtain due to patient condition <Apolonia Slade - Last Filed: 04/23/17 01:12> *Physical Exam - Vital Signs Last Vital Signs Temp Pulse Resp BP Pulse Ox 99.8 F H 91 H 20 106/52 97 04/22/17 23:48 04/22/17 23:48 04/23/17 00:04 04/22/17 23:48 04/22/17 23:48 - Physical Exam Comments: 04/23/17 01:13 GENERAL: The patient is awake but with her eyes closed HEAD: Normocephalic, atraumatic. EYES: (+) periorbital swelling, with skin flaking and signs of honey colored crusting overying erythema/induration unable to open the pts eyes to evaluate the globe. ENT: nonverbal NECK: Normal range of motion, supple LUNGS: (+) scattered ronchi HEART: Regular rate and rhythm, ABDOMEN: Soft, nontender, normoactive bowel sounds. No guarding, no rebound. EXTREMITIES: Normal range of motion, NEUROLOGICAL: limited exam SKIN: (+) erythema with nduration on periorbital region/cheeks with crusting <Apolonia Slade - Last Filed: 04/23/17 01:12> ED Treatment Course - LABORATORY CBC & Chemistry Diagram: 04/24/17 06:45 04/24/17 06:45 <Isiah Cosby - Last Filed: 04/24/17 09:22> Medical Decision Making - Medical Decision Making 04/23/17 00:53 82y F hx of afib on eliquis, respiratory failure s/p trach, copd, sent to ED for evaluation of facial cellulitis for the pst 3 days. history limited due to patient condition. pain does complain of mild pain. on exam the pt has mild erythema on her face with eric einduration, there are areas of honey colored crusting without active discharge. no notable proptosis, however i am unable to open the pts eye to evaluate her globe (not sure if tihs is chronic or not). likely facial cellulitis/impetigo will obtin blood work and cultures consider orbital celluitis will give muprocin, ceftriaxone will obtain CT orbits to r/o orbital celllitis will need admission for further management 04/23/17 02:31 pts labs reviewed noted for leukocytosis awaiitng CT pt endorsed to dr. narvaez to fu with CT and admission for further management <Isiah Cosby - Last Filed: 04/24/17 09:22> *DC/Admit/Observation/Transfer - Attestations Scribe Attestion: 04/23/17 01:13 Documentation prepared by Apolonia Slade, acting as medical billing service for Isiah Cosby MD, <Apolonia Slade - Last Filed: 04/23/17 01:12> <Isiah Cosby - Last Filed: 04/24/17 09:22> Diagnosis at time of Disposition: Cellulitis, Mastoiditis - Discharge Dispostion Condition at time of disposition: Stable
[2017-04-22 23:52] VITALS: BMI 17.4
[2017-04-23] MEDS ORDERED: MUPIROCIN 2% TOPICAL OINTMENT 22 GM TUBE TP ONE (00:40)
[2017-04-23] MEDS ORDERED: CEFTRIAXONE 1 GM in DEXTROSE 5%-WATER - 50 ML IVPB ONE (00:41)
[2017-04-23 01:29] LABS: BASOPHIL 0.7 % (0-2.0); EOSINOPHIL 5.2 % (0-4.5); MCH 26.2 pg (25.7-33.7); MCHC 31.6 g/dl (32.0-36.0); MEAN CELL VOLUME 82.9 fl (80-96); MEAN PLT VOLUME 8.2 fl (7.5-11.1); NEUTROPHILS 75.8 % (42.8-82.8); PLATELET COUNT 215 K/MM3 (134-434); RDW 17.9 % (11.6-15.6); WHITE BLOOD COUNT 13.1 K/mm3 (4.0-10.0)
[2017-04-23] MEDS ORDERED: CEFTRIAXONE 50 ML ONE (01:29)
[2017-04-23 01:30] LABS: INR 1.37 (0.82-1.09); PROTHROMBIN TIME (PATIENT) 15.2 SEC (9.98-11.88)
[2017-04-23 01:53] LABS: ALBUMIN 2.6 g/dl (3.4-5.0); ALK PHOS 69 U/L (45-117); ANION GAP 10 (8-16); BILIRUBIN,TOTAL 0.3 mg/dL (0.2-1.0); CO2 30 mmol/L (21-32); CREATININE 0.5 mg/dL (0.55-1.02); GLUCOSE,RANDOM 106 mg/dL (74-106); SGOT/AST 9 U/L (15-37); SGPT/ALT 12 U/L (12-78); TOT PROT 6.8 g/dl (6.4-8.2)
--- NOTE | 2017-04-23 03:07 | PDOC ---
*Physical Exam - Vital Signs Last Vital Signs Temp Pulse Resp BP Pulse Ox 99.8 F H 91 H 20 106/52 97 04/22/17 23:48 04/22/17 23:48 04/23/17 02:31 04/22/17 23:48 04/22/17 23:48 ED Treatment Course - LABORATORY CBC & Chemistry Diagram: 04/23/17 01:15 04/23/17 01:15 - ADDITIONAL ORDERS Additional order review: Laboratory Results 04/23/17 04/23/17 01:15 01:00 PT with INR 15.20 H INR 1.37 H Sodium 142 Potassium 3.9 Chloride 102 Carbon Dioxide 30 Anion Gap 10 BUN 28 H D Creatinine 0.5 L D Creat Clearance w eGFR > 60 Random Glucose 106 Calcium 9.0 Total Bilirubin 0.3 D AST 9 L ALT 12 D Alkaline Phosphatase 69 Total Protein 6.8 Albumin 2.6 L 04/23/17 01:15 RBC 4.28 MCV 82.9 MCHC 31.6 L RDW 17.9 H MPV 8.2 Neutrophils % 75.8 Lymphocytes % 12.0 D Monocytes % 6.3 Eosinophils % 5.2 H Basophils % 0.7 - Medications Given in the ED: ED Medications Discontinued Medications Generic Name Dose Route Start Last Admin Trade Name Freq PRN Reason Stop Dose Admin Ceftriaxone Sodium 1 gm/ 50 mls @ 100 mls/hr 04/23/17 00:41 04/23/17 01:30 Dextrose IVPB 04/23/17 01:10 100 mls/hr ONCE ONE Administration Mupirocin 1 applic 04/23/17 00:40 04/23/17 01:54 Bactroban 2% Ointment - TP 04/23/17 00:41 1 applic NOW ONE Administration Medical Decision Making - Medical Decision Making 04/23/17 03:03 Patient signed out to me by Dr. Cosby. Briefly, patient with a history of multiple medical problems including end-stage COPD status post trach and vent presents with facial rash, periorbital edema and honey crusted lesions. Clinical picture concerning for facial cellulitis however CT max face is pending to evaluate for a septal cellulitis. CT scan has been read as negative for septal cellulitis and more consistent with facial cellulitis. CT scan also concerning for mastoiditis. Patient has been dosed ceftriaxone which should cover for the cellulitis and mastoiditis. Pt has been admitted to [facility]. Case discussed in detail with admitting physician including history, physical exam and ancillary studies. Admitting physician has assumed care for the patient, will follow all pending diagnostics and will complete the evaluation and treatment. *DC/Admit/Observation/Transfer Diagnosis at time of Disposition: Cellulitis, Mastoiditis - Discharge Dispostion Condition at time of disposition: Stable Admit: Yes - Attestations Physician Attestion: 04/23/17 03:06 I, Dr. Bethany Goddard MD, attest that this document has been prepared under my direction and personally reviewed by me in its entirety. I further attest, that it accurately reflects all work, treatment, procedures and medical decision -making performed by me.
--- NOTE | 2017-04-23 09:13 | CONSULT ---
Consultation: PULMONARY CONSULT REQUESTING PROVIDER: Dr. Cook CONSULT REQUEST: We have been asked to medically evaluate this patient for ( VENT DEPENDENT) HISTORY OF PRESENT ILLNESS: Ms. Raygoza is a 82yo F with PMHx of end stage COPD, Chronic Respiratory failure ( now vent dependent), CHF, Cardiac Arrest (s/p AICD), Afib on Eliquis. Pt was sent in by Dr. Kate from [facility] for evaluation of facial rash x 3 days. She is admitted for facial cellulitis and mastoiditis, on Ceftriaxone. Patient is able to nod at times to yes/no questions. States she has no pain at the moment. Unable to tell me if she is able to see. REVIEW OF SYSTEMS: CONSTITUTIONAL: Absent: fever, chills, diaphoresis, generalized weakness, malaise, loss of appetite, weight change HEENT: Absent: rhinorrhea, nasal congestion, throat pain, throat swelling, difficulty swallowing, mouth swelling, ear pain, eye pain, visual changes CARDIOVASCULAR: Absent: chest pain, syncope, palpitations, irregular heart rate, lightheadedness , peripheral edema RESPIRATORY: Absent: cough, shortness of breath, dyspnea with exertion, orthopnea, wheezing, stridor, hemoptysis GASTROINTESTINAL: Absent: abdominal pain, abdominal distension, nausea, vomiting, diarrhea, constipation, melena, hematochezia GENITOURINARY: Absent: dysuria, frequency, urgency, hesitancy, hematuria, flank pain, genital pain MUSCULOSKELETAL: Absent: myalgia, arthralgia, joint swelling, back pain, neck pain SKIN: Absent: rash, itching, pallor HEMATOLOGIC/IMMUNOLOGIC: Absent: easy bleeding, easy bruising, lymphadenopathy, frequent infections ENDOCRINE: Absent: unexplained weight gain, unexplained weight loss, heat intolerance, cold intolerance NEUROLOGIC: Absent: headache, focal weakness or paresthesias, dizziness, unsteady gait, seizure, mental status changes, bladder or bowel incontinence PSYCHIATRIC: Absent: anxiety, depression, suicidal or homicidal ideation, hallucinations. PHYSICAL EXAMINATION Vital Signs Temperature 98.3 F 04/23/17 08:07 Pulse Rate 88 04/23/17 08:07 Respiratory Rate 18 04/23/17 08:07 Blood Pressure 95/47 04/23/17 08:07 O2 Sat by Pulse Oximetry (%) 95 04/23/17 06:56 GEN: Eyes closed, nods to some yes/no questions, unable to assess orientation HEENT: Bilateral periorbital honey crusted lesions with bilateral periorbital edema. No surrounding erythema. PERRL, medial conjunctiva are clear, unable to assess EOM CV: S1, S2, irregular rhythm LUNG: Bilateral coarse rhonchi vs ventilator transmitted sounds ABD: Soft, NT, ND, normoactive BS MSK: No edema, no erythema NEURO: Difficult to assess Laboratory Last Values WBC 13.1 K/mm3 (4.0-10.0) H D 04/23/17 01:15 RBC 4.28 M/mm3 (3.60-5.2) 04/23/17 01:15 Hgb 11.2 GM/dL (10.7-15.3) 04/23/17 01:15 Hct 35.4 % (32.4-45.2) 04/23/17 01:15 MCV 82.9 fl (80-96) 04/23/17 01:15 MCH 26.2 pg (25.7-33.7) 04/23/17 01:15 MCHC 31.6 g/dl (32.0-36.0) L 04/23/17 01:15 RDW 17.9 % (11.6-15.6) H 04/23/17 01:15 Plt Count 215 K/MM3 (134-434) D 04/23/17 01:15 MPV 8.2 fl (7.5-11.1) 04/23/17 01:15 Neutrophils % 75.8 % (42.8-82.8) 04/23/17 01:15 Lymphocytes % 12.0 % (8-40) D 04/23/17 01:15 Monocytes % 6.3 % (3.8-10.2) 04/23/17 01:15 Eosinophils % 5.2 % (0-4.5) H 04/23/17 01:15 Basophils % 0.7 % (0-2.0) 04/23/17 01:15 PT with INR 15.20 SEC (9.98-11.88) H 04/23/17 01:00 INR 1.37 (0.82-1.09) H 04/23/17 01:00 Sodium 142 mmol/L (136-145) 04/23/17 01:15 Potassium 3.9 mmol/L (3.5-5.1) 04/23/17 01:15 Chloride 102 mmol/L (98-107) 04/23/17 01:15 Carbon Dioxide 30 mmol/L (21-32) 04/23/17 01:15 Anion Gap 10 (8-16) 04/23/17 01:15 BUN 28 mg/dL (7-18) H D 04/23/17 01:15 Creatinine 0.5 mg/dL (0.55-1.02) L D 04/23/17 01:15 Creat Clearance w eGFR > 60 (>60) 04/23/17 01:15 Random Glucose 106 mg/dL (74-106) 04/23/17 01:15 Calcium 9.0 mg/dL (8.5-10.1) 04/23/17 01:15 Total Bilirubin 0.3 mg/dL (0.2-1.0) D 04/23/17 01:15 AST 9 U/L (15-37) L 04/23/17 01:15 ALT 12 U/L (12-78) D 04/23/17 01:15 Alkaline Phosphatase 69 U/L (45-117) 04/23/17 01:15 Total Protein 6.8 g/dl (6.4-8.2) 04/23/17 01:15 Albumin 2.6 g/dl (3.4-5.0) L 04/23/17 01:15 Blood Type A POSITIVE 04/23/17 01:15 Antibody Screen Negative 04/23/17 01:15 Active Medications Generic Name Dose Route Start Last Admin Trade Name Sharanq PRN Reason Stop Dose Admin Acetaminophen 650 mg 04/23/17 07:46 Tylenol - PO Q6H PRN FEVER OR PAIN Albuterol Sulfate 1 amp 04/23/17 07:46 Ventolin 0.083% Nebulizer Soln - NEB Q4H PRN SHORT OF BREATH/WHEEZING Apixaban 2.5 mg 04/23/17 10:00 Eliquis - PO BID BREANN Artificial Tears 1 drop 04/23/17 07:46 Artificial Tears OU BID PRN DRY EYES Ascorbic Acid 500 mg 04/23/17 10:00 Vitamin C - PO DAILY BREANN Atorvastatin Calcium 10 mg 04/23/17 22:00 Lipitor - PO HS BREANN Docusate Sodium 300 mg 04/23/17 22:00 Colace - PO HS BREANN Ferrous Sulfate 325 mg 04/23/17 10:00 Feosol - PO BID BREANN Lactobacillus Acidophilus 1 tab 04/23/17 10:00 Bacid - PO DAILY BREANN Loratadine 10 mg 04/23/17 10:00 Claritin - PO DAILY BREANN Mirtazapine 15 mg 04/23/17 22:00 Remeron - PO HS BREANN Multivitamins/Minerals/Vitamin C 1 tab 04/23/17 10:00 Tab-A-Vit - PO DAILY BREANN Non-Formulary Medication 30 ml 04/23/17 10:00 Aa/Hydrolyzed Collagen, Whey [Lps 15-30 Liquid] PO BID BREANN Nystatin 1 applic 04/23/17 10:00 Nystop Powder - TP DAILY BREANN Pantoprazole Sodium 40 mg 04/23/17 10:00 Protonix - PO DAILY BREANN Potassium Chloride 20 meq 04/23/17 10:00 Potassium Chloride Oral Liquid PO DAILY BREANN ASSESSMENT/PLAN: Ms. Raygoza is a 82yo F with PMHx of end stage COPD, Chronic Respiratory failure ( now vent dependent), CHF, Cardiac Arrest (s/p AICD), Afib on Eliquis who presented with facial rash x 3 days admitted for cellulitis # Periorbital Skin Infection - likely secondary to impetigo - Antibiotics as per ID, coverage for Staph + Strep - Possibly overlying cellulitis # Chronic Respiratory Failure - s/p chronic ventilator dependent - Unlikely PNA - Continue current AC vent settings Discussed w/ Dr Massey. We will continue to follow the patient. Thank you Pao Camarillo MD - PGY1 Visit type - Emergency Visit Emergency Visit: No - New Patient This patient is new to me today: No - Critical Care Critical Care patient: No
--- NOTE | 2017-04-23 09:52 | HP ---
Admitting History and Physical - Primary Care Physician PCP: Jacky Cook - Admission History of Present Illness: The patient is an 81 year old female, with a significant past medical history of multiple comorbidities including iron deficiency anemia, HTN, hyperlipidemia , end-stage COPD s/p , tracheotomy on a ventilator, chronic respiratory failure , CHF, cardiac arrest (1998), GERD and upper GI bleed, who was sent to the emergency department via EMS from [facility] by Dr. Verduzco for evaluation of facial rash for [address] Verduzco requests admission for Abx treatment today.. HPI is limited due to patients clinical condition but is able to shake/ nod her head to basic questions and pt denies any chest pain, sob, fevers, abd pain. 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: CVA, Dementia, Parkinson's Cardiovascular: Yes: AFIB (Paroxysmal), CHF, HTN, Hyperlipdemia, Other (h/o cardiac arrest s/p AICD - Single lead) Pulmonary: Yes: COPD, Other (respiratory failure) Gastrointestinal: Yes: GERD Heme/Onc: Yes: Anemia - Past Surgical History Past Surgical History: Yes: AICD ([employer]tr[employer], implanted following cardiac arrest) , Cataract Removal (2011) - Smoking History Smoking history: Unknown if ever smoked Have you smoked in the past 12 months: No Aproximately how many cigarettes per day: 0 - Alcohol/Substance Use Hx Alcohol Use: No - Social History History of Recent Travel: No Home Medications - Allergies Allergies/Adverse Reactions: Allergies Allergy/AdvReac Type Severity Reaction Status Date / Time doxycycline Allergy Intermediate Verified 04/22/17 23:48 CLAMS Allergy Intermediate Hives Uncoded 04/22/17 23:48 - Home Medications Home Medications: Ambulatory Orders Ascorbic Acid [Vitamin C -] 500 mg PO DAILY 10/19/16 Docusate Sodium 300 mg PO HS 10/19/16 Aa/Hydrolyzed Collagen, Whey [Lps 15-30 Liquid] 30 ml PO BID 01/08/17 Acetaminophen [Tylenol .Regular Strength -] 650 mg PO Q6H PRN #0 tablet Albuterol 0.083% Nebulizer Yady [Ventolin 0.083% Nebulizer Soln -] 1 amp NEB Q4H PRN #180 amp 03/20/17 Apixaban [Eliquis -] 2.5 mg PO BID tablet 03/20/17 Atorvastatin Ca [Lipitor] 10 mg PO HS #30 tablet 03/20/17 Ferrous Sulfate 325 mg PO BID #60 tab 03/20/17 Hypromellose 0.5% Opth Soln [Artificial Tears] 1 drop OU BID #1 bottle 03/20/17 Lactobacillus Acidophilus [Bacid -] 1 tab PO DAILY #30 tab 03/20/17 Loratadine [Claritin -] 10 mg PO DAILY #30 tablet 03/20/17 Mirtazapine [Remeron -] 15 mg PO HS #30 tablet 03/20/17 Multivitamins [Multivit ([facility] Formulary)] 1 tab PO DAILY #30 tab 03/20/17 Nystatin Powder [Nystop Powder -] 1 applic TP DAILY #1 applic 03/20/17 Pantoprazole Sodium [Protonix -] 40 mg PO DAILY #30 tab 03/20/17 Polyvinyl Alcohol [Artificial Tears] 1 drop OU BID PRN #1 bottle 03/20/17 Potassium Chloride Oral Soln [KCl Oral Solution] 20 meq PO DAILY #30 cup Review of Systems Unable to obtain ROS, reason: not able to tel Physical Examination Vital Signs: Vital Signs Temperature 98.3 F 04/23/17 08:07 Pulse Rate 88 04/23/17 08:07 Respiratory Rate 18 04/23/17 08:07 Blood Pressure 95/47 04/23/17 08:07 O2 Sat by Pulse Oximetry (%) 95 04/23/17 06:56 Findings/Remarks: eyes closed facial swelling noted Constitutional: Yes: Calm Neck: Yes: Other (trach) Cardiovascular: Yes: Regular Rate and Rhythm, S1, S2 Respiratory: Yes: CTA Bilaterally, Diminished (at bases) Gastrointestinal: Yes: Normal Bowel Sounds, Soft Edema: No Integumentary: Yes: Other (honey crusted lesion noted in periorbital area with left and right side facial edema and periorbital edema) Imaging - Results Cat Scan: Report Reviewed (left periobital soft tissue swelling and left side of face swelling moderate right facial swelling partial opacifacation of sphenoid sinus) Problem List - Problems (1) Cellulitis Assessment/Plan: most likely impetigo iv abx to cover stap and strep Code(s): L03.90 - CELLULITIS, UNSPECIFIED (2) Mastoiditis Assessment/Plan: iv abx Code(s): H70.90 - UNSPECIFIED MASTOIDITIS, UNSPECIFIED EAR (3) AICD (automatic cardioverter/defibrillator) present Code(s): Z95.810 - PRESENCE OF AUTOMATIC (IMPLANTABLE) CARDIAC DEFIBRILLATOR (4) COPD (chronic obstructive pulmonary disease) Assessment/Plan: bronchodilators Code(s): J44.9 - CHRONIC OBSTRUCTIVE PULMONARY DISEASE, UNSPECIFIED Qualifiers : COPD type: unspecified COPD Qualified Code(s): J44.9 - Chronic obstructive pulmonary disease, unspecified; J44.9 - Chronic obstructive pulmonary disease, unspecified; J44.9 - Chronic obstructive pulmonary disease, unspecified; J44.9 - Chronic obstructive pulmonary disease, unspecified (5) Chronic respiratory failure Assessment/Plan: vent support pulm on board Code(s): J96.10 - CHRONIC RESPIRATORY FAILURE, UNSP W HYPOXIA OR HYPERCAPNIA Qualifiers: Respiratory failure complication: hypercapnia Qualified Code(s): J96.12 - Chronic respiratory failure with hypercapnia; J96.12 - Chronic respiratory failure with hypercapnia; J96.12 - Chronic respiratory failure with hypercapnia (6) PAF (paroxysmal atrial fibrillation) Assessment/Plan: eliquis bid Code(s): I48.0 - PAROXYSMAL ATRIAL FIBRILLATION (7) Renal insufficiency, mild Assessment/Plan: iv fluids Code(s): N28.9 - DISORDER OF KIDNEY AND URETER, UNSPECIFIED (8) Anemia Assessment/Plan: h/h is ok on ferrous sulfate Code(s): D64.9 - ANEMIA, UNSPECIFIED Qualifiers: Anemia type: iron deficiency
[2017-04-23] MEDS ORDERED: PT OWN MED DRAWER 7, Y5N ONE ×2 (09:56→22:49)
--- NOTE | 2017-04-23 09:56 | CON.ID ---
Consult Consult Specialty:: Infectious Disease Reason for Consultation:: Facial cellulitis vs. impetigo - History of Present Illness History of Present Illness: 82yo F with multiple comorbid conditions with inclusion of end-stage COPD s/p tracheostomy and mechanical ventilation, and history of atypically cultured lung washings who presents from [facility] with facial rash for the past 3 days (per chart). Pt at baseline is usually alert and can respond with nodding to yes-or- no questions. Pt history limited due to clinical condition. Pt nods 'no' to feeling feverish or experiencing chills. CT of facial structures was done in the ED which shows significant periorbital swelling and concern for possible mastoiditis. Pt received one dose of topical Muciporin and Rocephin IV. 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: CVA, Dementia, Parkinson's Cardio/Vascular: Yes: AFIB (Paroxysmal), CHF, HTN, Hyperlipdemia, Other (h/o cardiac arrest s/p AICD - Single lead) Pulmonary: Yes: COPD, Other (respiratory failure) Gastrointestinal: Yes: GERD - Past Surgical History Past Surgical History: Yes: AICD (Medtronic, implanted following cardiac arrest) , Cataract Removal (2011) - Alcohol/Substance Use Hx Alcohol Use: No - Smoking History Smoking history: Unknown if ever smoked Have you smoked in the past 12 months: No Aproximately how many cigarettes per day: 0 - Social History Usual Living Arrangement: Care Home History of Recent Travel: No Home Medications - Allergies Allergies/Adverse Reactions: Allergies Allergy/AdvReac Type Severity Reaction Status Date / Time doxycycline Allergy Intermediate Verified 04/22/17 23:48 CLAMS Allergy Intermediate Hives Uncoded 04/22/17 23:48 - Home Medications Home Medications: Ambulatory Orders Ascorbic Acid [Vitamin C -] 500 mg PO DAILY 10/19/16 Docusate Sodium 300 mg PO HS 10/19/16 Aa/Hydrolyzed Collagen, Whey [Lps 15-30 Liquid] 30 ml PO BID 01/08/17 Acetaminophen [Tylenol .Regular Strength -] 650 mg PO Q6H PRN #0 tablet Albuterol 0.083% Nebulizer Yady [Ventolin 0.083% Nebulizer Soln -] 1 amp NEB Q4H PRN #180 amp 03/20/17 Apixaban [Eliquis -] 2.5 mg PO BID tablet 03/20/17 Atorvastatin Ca [Lipitor] 10 mg PO HS #30 tablet 03/20/17 Ferrous Sulfate 325 mg PO BID #60 tab 03/20/17 Hypromellose 0.5% Opth Soln [Artificial Tears] 1 drop OU BID #1 bottle 03/20/17 Lactobacillus Acidophilus [Bacid -] 1 tab PO DAILY #30 tab 03/20/17 Loratadine [Claritin -] 10 mg PO DAILY #30 tablet 03/20/17 Mirtazapine [Remeron -] 15 mg PO HS #30 tablet 03/20/17 Multivitamins [Multivit ([facility] Formulary)] 1 tab PO DAILY #30 tab 03/20/17 Nystatin Powder [Nystop Powder -] 1 applic TP DAILY #1 applic 03/20/17 Pantoprazole Sodium [Protonix -] 40 mg PO DAILY #30 tab 03/20/17 Polyvinyl Alcohol [Artificial Tears] 1 drop OU BID PRN #1 bottle 03/20/17 Potassium Chloride Oral Soln [KCl Oral Solution] 20 meq PO DAILY #30 cup Physical Exam Vital Signs: Vital Signs Temperature 98.3 F 04/23/17 08:07 Pulse Rate 88 04/23/17 08:07 Respiratory Rate 18 04/23/17 08:07 Blood Pressure 95/47 04/23/17 08:07 O2 Sat by Pulse Oximetry (%) 95 04/23/17 06:56 Constitutional: Yes: No Distress, Calm Eyes: Yes: PERRL, Other (Severe periorbital edema. No purulent discharge noted from orbital. Sclera white without any problems) HENT: Yes: Other (Bilateral honey-crusted lesions ranging from maxilla to supraorbital ridge. Severe periorbital edema noted. Skin is erythematous and warm to touch.) Neck: No: Lymphadenopathy Cardiovascular: Yes: Regular Rate and Rhythm. No: Murmur Respiratory: Yes: Mechanically Ventilated (AC ventilation mode), Other ( Bilateral coarse breath sounds diffusely) Gastrointestinal: Yes: Normal Bowel Sounds, Soft. No: Tenderness Edema: No Integumentary: Yes: Other (See HENT section) Neurological: Yes: Alert Psychiatric: Yes: Alert Labs: CBC, BMP 04/23/17 01:15 04/23/17 01:15 Imaging - Results Cat Scan: Report Reviewed, Image Reviewed (Severe periorbital soft tissue edema L>R; no orbital involvement. Cavernous sinus without any abnormalities. Maxillary and ethmoid sinuses with no acute pathology.) Assessment/Plan Assessment: Impetigo B/L facial cellulitis Plan: Broad spectrum coverage with Rocephin 2gm IV qDaily Vancomycin 1gm IV q12h for MRSA coverage Topical Mupirocin applied to area in question Blood Cultures x2 ordered Sputum culture ordered
[2017-04-23] MEDS ORDERED: PATIENT'S OWN MEDICATION (NON-FORMULARY) (Hypromellose 0.5% Opth Soln [Artificial Tears] 1 OU SCH (10:00)
[2017-04-23] MEDS: FERROUS SO4 325 MG TABLET (FP) PO SCH ×2 (10:06→22:54)
[2017-04-23] MEDS: PANTOPRAZOLE 40 MG TABLET (FP) PO SCH (10:06)
[2017-04-23] MEDS: NYSTATIN POWDER 100,000 UNITS/GM - 15 GM TOPICAL POWDER TP SCH (10:06)
[2017-04-23] MEDS: LORATADINE 10 MG TABLET PO SCH (10:06)
[2017-04-23] MEDS: ARTIFICIAL TEARS (POLYVINYL ALCOHOL 1.4%) OPTH DROPS OU PRN (10:06)
[2017-04-23] MEDS: APIXABAN 2.5 MG TABLET PO SCH ×2 (10:06→22:54)
[2017-04-23] MEDS: MULTIVITAMINS (DAILY MVI) TABLET (FP) PO SCH (10:06)
[2017-04-23] MEDS: POTASSIUM CHLORIDE ORAL LIQUID 20 MEQ/15 ML PO SCH (10:06)
[2017-04-23] MEDS: LACTOBACILLUS ACIDOPHILUS 1 EACH TAB (FP) PO SCH (10:06)
[2017-04-23] MEDS: ASCORBIC ACID 500 MG TABLET (FP) PO SCH (10:06)
--- NOTE | 2017-04-23 10:55 | EKG ---
Test Reason : Blood Pressure : / mmHG Vent. Rate : 089 BPM Atrial Rate : 089 BPM P-R Int : 118 ms QRS Dur : 078 ms QT Int : 372 ms P-R-T Axes : 000 -07 052 degrees QTc Int : 452 ms PROBABLE ECTOPIC ATRIAL RHYTHM POSSIBLE ANTERIOR INFARCT , AGE UNDETERMINED LOW VOLTAGE QRS ABNORMAL ECG WHEN COMPARED WITH ECG OF 26-FEB-2017 18:06, NO SIGNIFICANT CHANGE WAS FOUND Confirmed by KAVEH GOMEZ, NIKHIL ([id number]) on 04/23/2017 10:55:19 AM Referred By: Confirmed By:NIKHIL LINN MD
[2017-04-23] MEDS ORDERED: CEFTRIAXONE 2 GM in DEXTROSE 5%-WATER - 50 ML IVPB SCH (11:00)
[2017-04-23] MEDS ORDERED: BACITRACIN 15 GM TUBE TOPICAL OINTMENT TP SCH (11:00)
[2017-04-23] MEDS: SODIUM CHLORIDE 0.45% 1,000 ML IV SCH (11:46)
[2017-04-23] MEDS: VANCOMYCIN 1,000 MG in DEXTROSE 5%-WATER - 250 ML IVPB SCH ×2 (11:47→22:55)
--- NOTE | 2017-04-23 12:20 | PN ---
Teaching Attending Note Name of Resident: Con Watts ATTENDING PHYSICIAN STATEMENT I saw and evaluated the patient. I reviewed the resident's note and discussed the case with the resident. I agree with the resident's findings and plan as documented. SUBJECTIVE:82 y/o female admitted from [facility] with facial erythema/ swelling. OBJECTIVE: + bilateral periorbital swelling and erythema Cor S1S2 Lungs clear ASSESSMENT AND PLAN: Bilateral periorbital cellulitis Chronic respiratory failure Pending cultures, empiric ceftriaxone/vancomycin
[2017-04-23] MEDS ORDERED: cefTRIAXone SODIUM 1 GM VIAL ONE (12:33)
[2017-04-23] MEDS ORDERED: CEFTRIAXONE 2 GM in DEXTROSE 5%-WATER 100 ML IVPB SCH (12:38)
[2017-04-23] MEDS ORDERED: DEXTROSE 5%-WATER 100 ML IVPB ONE (12:52)
[2017-04-23] MEDS: BACITRACIN 15 GM TUBE TOPICAL OINTMENT TP SCH ×2 (13:05→22:52)
[2017-04-23] MEDS: CEFTRIAXONE 2 GM in DEXTROSE 5%-WATER 100 ML IVPB SCH (14:26)
--- NOTE | 2017-04-23 14:32 | PN ---
Teaching Attending Note Name of Resident: Pao Camarillo ATTENDING PHYSICIAN STATEMENT I saw and evaluated the patient. I reviewed the resident's note and discussed the case with the resident. I agree with the resident's findings and plan as documented. PULMONARY IMP CHRONIC RESPIRATORY FAILURE COPD AFIB IMPETIGO BILATERAL FACIAL CELLULITIS ASHD HLD HTN PLAN VENT SUPPORT INHALED BRONCHODILATORS ANTIBIOTICS CULTURES DR CABRERA Problem List - Problems (1) Anemia Code(s): D64.9 - ANEMIA, UNSPECIFIED Qualifiers: Anemia type: iron deficiency (2) Cellulitis Code(s): L03.90 - CELLULITIS, UNSPECIFIED (3) AICD (automatic cardioverter/defibrillator) present Code(s): Z95.810 - PRESENCE OF AUTOMATIC (IMPLANTABLE) CARDIAC DEFIBRILLATOR (4) COPD (chronic obstructive pulmonary disease) Code(s): J44.9 - CHRONIC OBSTRUCTIVE PULMONARY DISEASE, UNSPECIFIED Qualifiers : COPD type: unspecified COPD Qualified Code(s): J44.9 - Chronic obstructive pulmonary disease, unspecified; J44.9 - Chronic obstructive pulmonary disease, unspecified; J44.9 - Chronic obstructive pulmonary disease, unspecified; J44.9 - Chronic obstructive pulmonary disease, unspecified (5) Chronic respiratory failure Code(s): J96.10 - CHRONIC RESPIRATORY FAILURE, UNSP W HYPOXIA OR HYPERCAPNIA Qualifiers: Respiratory failure complication: hypercapnia Qualified Code(s): J96.12 - Chronic respiratory failure with hypercapnia; J96.12 - Chronic respiratory failure with hypercapnia; J96.12 - Chronic respiratory failure with hypercapnia (6) HTN (hypertension) Code(s): I10 - ESSENTIAL (PRIMARY) HYPERTENSION (7) Hyperlipemia Code(s): E78.5 - HYPERLIPIDEMIA, UNSPECIFIED (8) Respirator dependence Code(s): Z99.11 - DEPENDENCE ON RESPIRATOR [VENTILATOR] STATUS
[2017-04-23] MEDS: MUPIROCIN 2% TOPICAL OINTMENT 22 GM TUBE TP SCH ×2 (17:44→22:53)
[2017-04-23] MEDS: DOCUSATE SODIUM 100 MG CAPSULE (FP) PO SCH (22:53)
[2017-04-23] MEDS: ATORVASTATIN CA 10 MG TABLET (FP) PO SCH (22:54)
[2017-04-23] MEDS: MIRTAZAPINE 15 MG TABLET (FP) PO SCH (22:55)
--- NOTE | 2017-04-24 06:45 | PN ---
Physical Exam: SUBJECTIVE: Day 2 of Vancomycin and Rocephin. Pt remains vent-dependent limiting HPI. Afebrile overnight. OBJECTIVE: Vital Signs Period Temp Pulse Resp BP Sys/Vera Pulse Ox Last 24 Hr 97.7 F-98.8 F 80-88 14-19 95-126/47-96 95-100 GENERAL: The patient is awake and alert HEENT: Erythematous area from maxilla b/l to superior orbirtal ridges. Periorbital edema improved from yesterday. LUNGS: Coarse breath sounds b/l. No rales noted HEART: RRR, No murmur auscultated. S1 and S2 normal ABDOMEN: Soft, nontender, nondistended, normoactive bowel sounds EXTREMITIES: No edema. No rashes noted NEUROLOGICAL: Alert SKIN: See HEENT section Active Medications Generic Name Dose Route Start Last Admin Trade Name Freq PRN Reason Stop Dose Admin Acetaminophen 650 mg 04/23/17 07:46 Tylenol - PO Q6H PRN FEVER OR PAIN Albuterol Sulfate 1 amp 04/23/17 07:46 Ventolin 0.083% Nebulizer Soln - NEB Q4H PRN SHORT OF BREATH/WHEEZING Apixaban 2.5 mg 04/23/17 10:00 04/23/17 22:54 Eliquis - PO 2.5 mg BID BREANN Administration Artificial Tears 1 drop 04/23/17 07:46 04/23/17 10:06 Artificial Tears OU 1 drop BID PRN Administration DRY EYES Ascorbic Acid 500 mg 04/23/17 10:00 04/23/17 10:06 Vitamin C - PO 500 mg DAILY BREANN Administration Atorvastatin Calcium 10 mg 04/23/17 22:00 04/23/17 22:54 Lipitor - PO 10 mg HS BREANN Administration Bacitracin 1 applic 04/23/17 12:00 04/23/17 22:52 Bacitracin - TP 1 applic BID BREANN Administration Docusate Sodium 300 mg 04/23/17 22:00 04/23/17 22:53 Colace - PO 300 mg HS BREANN Administration Ferrous Sulfate 325 mg 04/23/17 10:00 04/23/17 22:54 Feosol - PO 325 mg BID BREANN Administration Sodium Chloride 1,000 mls @ 50 mls/hr 04/23/17 10:15 04/23/17 11:46 1/2 Normal Saline IV 04/24/17 10:15 50 mls/hr ASDIR BREANN Administration Vancomycin HCl 1,000 mg/ 250 mls @ 166.667 mls/hr 04/23/17 11:00 04/23/17 22:55 Dextrose IVPB 166.667 mls/hr Q12H BREANN Administration Protocol Ceftriaxone Sodium 2 gm/ 100 mls @ 100 mls/hr 04/23/17 12:45 04/23/17 14:26 Dextrose IVPB 100 mls/hr DAILY BREANN Administration Lactobacillus Acidophilus 1 tab 04/23/17 10:00 04/23/17 10:06 Bacid - PO 1 tab DAILY BRENAN Administration Loratadine 10 mg 04/23/17 10:00 04/23/17 10:06 Claritin - PO 10 mg DAILY BREANN Administration Mirtazapine 15 mg 04/23/17 22:00 04/23/17 22:55 Remeron - PO 15 mg HS BREANN Administration Multivitamins/Minerals/Vitamin C 1 tab 04/23/17 10:00 04/23/17 10:06 Tab-A-Vit - PO 1 tab DAILY BREANN Administration Mupirocin 1 applic 04/23/17 15:00 04/23/17 22:53 Bactroban 2% Ointment - TP 1 applic TID BREANN Administration Non-Formulary Medication 30 ml 04/23/17 10:00 Aa/Hydrolyzed Collagen, Whey [Lps 15-30 Liquid] PO BID BREANN Nystatin 1 applic 04/23/17 10:00 04/23/17 10:06 Nystop Powder - TP 1 applic DAILY BREANN Administration Pantoprazole Sodium 40 mg 04/23/17 10:00 04/23/17 10:06 Protonix - PO 40 mg DAILY BREANN Administration Potassium Chloride 20 meq 04/23/17 10:00 04/23/17 10:06 Potassium Chloride Oral Liquid PO 20 meq DAILY BREANN Administration ASSESSMENT: Impetigo B/L Facial Cellulitis End-stage lung disease PLAN: Markedly improved from yesterday; continue current mgmt: Day 2 Rocephin 2gm IV qDaily and Vancomycin 1gm IV q12h for MRSA coverage Topical Mupirocin applied to area in question Blood Cultures noted; currently no growth Sputum culture ordered; pending still Visit type - Emergency Visit Emergency Visit: No - New Patient This patient is new to me today: No - Critical Care Critical Care patient: No
[2017-04-24] MEDS: MUPIROCIN 2% TOPICAL OINTMENT 22 GM TUBE TP SCH ×3 (06:51→22:14)
[2017-04-24 08:23] LABS: BASOPHIL 1.2 % (0-2.0); EOSINOPHIL 6.3 % (0-4.5); MCH 26.2 pg (25.7-33.7); MCHC 31.4 g/dl (32.0-36.0); MEAN CELL VOLUME 83.6 fl (80-96); MEAN PLT VOLUME 8.6 fl (7.5-11.1); NEUTROPHILS 68.5 % (42.8-82.8); PLATELET COUNT 192 K/MM3 (134-434); RDW 17.7 % (11.6-15.6); WHITE BLOOD COUNT 9.9 K/mm3 (4.0-10.0)
[2017-04-24 08:36] LABS: ALBUMIN 2.5 g/dl (3.4-5.0); ANION GAP 9 (8-16); CO2 29 mmol/L (21-32); GLUCOSE,RANDOM 86 mg/dL (74-106); SGPT/ALT 8 U/L (12-78)
[2017-04-24 08:39] LABS: ALK PHOS 72 U/L (45-117); BILIRUBIN,TOTAL 0.7 mg/dL (0.2-1.0); CALCIUM 8.3 mg/dL (8.5-10.1); CREATININE 0.5 mg/dL (0.55-1.02); SGOT/AST 11 U/L (15-37); TOT PROT 6.7 g/dl (6.4-8.2)
[2017-04-24] MEDS ORDERED: PT OWN MED DRAWER 7, Y5N ONE ×2 (09:19→21:32)
[2017-04-24] MEDS ORDERED: DEXTROSE 5%-WATER 100 ML IVPB ONE (09:19)
[2017-04-24] MEDS: LACTOBACILLUS ACIDOPHILUS 1 EACH TAB (FP) PO SCH (09:33)
[2017-04-24] MEDS: POTASSIUM CHLORIDE ORAL LIQUID 20 MEQ/15 ML PO SCH (09:33)
[2017-04-24] MEDS: MULTIVITAMINS (DAILY MVI) TABLET (FP) PO SCH (09:33)
[2017-04-24] MEDS: LORATADINE 10 MG TABLET PO SCH (09:33)
[2017-04-24] MEDS: CEFTRIAXONE 2 GM in DEXTROSE 5%-WATER 100 ML IVPB SCH (09:33)
[2017-04-24] MEDS: APIXABAN 2.5 MG TABLET PO SCH ×2 (09:33→22:18)
[2017-04-24] MEDS: ASCORBIC ACID 500 MG TABLET (FP) PO SCH (09:33)
[2017-04-24] MEDS: PANTOPRAZOLE 40 MG TABLET (FP) PO SCH (09:33)
[2017-04-24] MEDS: FERROUS SO4 325 MG TABLET (FP) PO SCH ×2 (09:33→22:18)
--- NOTE | 2017-04-24 09:33 | PN ---
Progress Note, Physician Chief Complaint: patient seen and examined no distress eyes clsed on vent - Current Medication List Current Medications: Active Medications Acetaminophen (Tylenol -) 650 mg PO Q6H PRN PRN Reason: FEVER OR PAIN Albuterol Sulfate (Ventolin 0.083% Nebulizer Soln -) 1 amp NEB Q4H PRN PRN Reason: SHORT OF BREATH/WHEEZING Apixaban (Eliquis -) 2.5 mg PO BID [facility] Last Admin: 04/23/17 22:54 Dose: 2.5 mg Artificial Tears (Artificial Tears) 1 drop OU BID PRN PRN Reason: DRY EYES Last Admin: 04/23/17 10:06 Dose: 1 drop Ascorbic Acid (Vitamin C -) 500 mg PO DAILY [facility] Last Admin: 04/23/17 10:06 Dose: 500 mg Atorvastatin Calcium (Lipitor -) 10 mg PO HS [facility] Last Admin: 04/23/17 22:54 Dose: 10 mg Bacitracin (Bacitracin -) 1 applic TP BID [facility] Last Admin: 04/23/17 22:52 Dose: 1 applic Docusate Sodium (Colace -) 300 mg PO HS [facility] Last Admin: 04/23/17 22:53 Dose: 300 mg Ferrous Sulfate (Feosol -) 325 mg PO BID [facility] Last Admin: 04/23/17 22:54 Dose: 325 mg Sodium Chloride (1/2 Normal Saline) 1,000 mls @ 50 mls/hr IV ASDIR [facility] Stop: 04/24/17 10:15 Last Admin: 04/23/17 11:46 Dose: 50 mls/hr Vancomycin HCl 1,000 mg/ (Dextrose) 250 mls @ 166.667 mls/hr IVPB Q12H BREANN PRN Reason: Protocol Last Admin: 04/23/17 22:55 Dose: 166.667 mls/hr Ceftriaxone Sodium 2 gm/ (Dextrose) 100 mls @ 100 mls/hr IVPB DAILY [facility] Last Admin: 04/23/17 14:26 Dose: 100 mls/hr Lactobacillus Acidophilus (Bacid -) 1 tab PO DAILY [facility] Last Admin: 04/23/17 10:06 Dose: 1 tab Loratadine (Claritin -) 10 mg PO DAILY [facility] Last Admin: 04/23/17 10:06 Dose: 10 mg Mirtazapine (Remeron -) 15 mg PO HS [facility] Last Admin: 04/23/17 22:55 Dose: 15 mg Multivitamins/Minerals/Vitamin C (Tab-A-Vit -) 1 tab PO DAILY [facility] Last Admin: 04/23/17 10:06 Dose: 1 tab Mupirocin (Bactroban 2% Ointment -) 1 applic TP TID [facility] Last Admin: 04/24/17 06:51 Dose: 1 applic Non-Formulary Medication (Aa/Hydrolyzed Collagen, Whey [Lps 15-30 Liquid]) 30 ml PO BID [facility] Nystatin (Nystop Powder -) 1 applic TP DAILY [facility] Last Admin: 04/23/17 10:06 Dose: 1 applic Pantoprazole Sodium (Protonix -) 40 mg PO DAILY [facility] Last Admin: 04/23/17 10:06 Dose: 40 mg Potassium Chloride (Potassium Chloride Oral Liquid) 20 meq PO DAILY [facility] Last Admin: 04/23/17 10:06 Dose: 20 meq - Objective Vital Signs: Vital Signs Temperature 98.9 F 04/24/17 06:00 Pulse Rate 78 04/24/17 06:00 Respiratory Rate 14 04/24/17 06:46 Blood Pressure 102/68 04/24/17 06:00 O2 Sat by Pulse Oximetry (%) 95 04/24/17 00:46 Constitutional: Yes: Calm Neck: Yes: Other (trach) Cardiovascular: Yes: Regular Rate and Rhythm, S1, S2 Respiratory: Yes: CTA Bilaterally, Mechanically Ventilated Gastrointestinal: Yes: Normal Bowel Sounds, Soft Edema: No Integumentary: Yes: Other (bilateral facial erythema and edema yellow crsuted lesions) Labs: CBC, BMP 04/24/17 06:45 04/24/17 06:45 INR, PTT INR 1.37 (0.82-1.09) H 04/23/17 01:00 Problem List - Problems (1) Cellulitis Assessment/Plan: most likely impetigo wbc trending down iv abx to cover stap and strep on rocephin and vanco for mrsa coverage contact isolation Code(s): L03.90 - CELLULITIS, UNSPECIFIED (2) Mastoiditis Assessment/Plan: iv abx Code(s): H70.90 - UNSPECIFIED MASTOIDITIS, UNSPECIFIED EAR (3) AICD (automatic cardioverter/defibrillator) present Assessment/Plan: aicd Code(s): Z95.810 - PRESENCE OF AUTOMATIC (IMPLANTABLE) CARDIAC DEFIBRILLATOR (4) COPD (chronic obstructive pulmonary disease) Assessment/Plan: bronchodilators Code(s): J44.9 - CHRONIC OBSTRUCTIVE PULMONARY DISEASE, UNSPECIFIED Qualifiers : COPD type: unspecified COPD Qualified Code(s): J44.9 - Chronic obstructive pulmonary disease, unspecified; J44.9 - Chronic obstructive pulmonary disease, unspecified; J44.9 - Chronic obstructive pulmonary disease, unspecified; J44.9 - Chronic obstructive pulmonary disease, unspecified (5) Chronic respiratory failure Assessment/Plan: vent support pulm on board Code(s): J96.10 - CHRONIC RESPIRATORY FAILURE, UNSP W HYPOXIA OR HYPERCAPNIA Qualifiers: Respiratory failure complication: hypercapnia Qualified Code(s): J96.12 - Chronic respiratory failure with hypercapnia; J96.12 - Chronic respiratory failure with hypercapnia; J96.12 - Chronic respiratory failure with hypercapnia (6) PAF (paroxysmal atrial fibrillation) Assessment/Plan: eliquis bid Code(s): I48.0 - PAROXYSMAL ATRIAL FIBRILLATION (7) Renal insufficiency, mild Assessment/Plan: iv fluids improving bun Code(s): N28.9 - DISORDER OF KIDNEY AND URETER, UNSPECIFIED (8) Anemia Assessment/Plan: h/h is ok on ferrous sulfate Code(s): D64.9 - ANEMIA, UNSPECIFIED Qualifiers: Anemia type: iron deficiency
[2017-04-24] MEDS: VANCOMYCIN 1,000 MG in DEXTROSE 5%-WATER - 250 ML IVPB SCH ×2 (11:52→22:18)
[2017-04-24] MEDS: NYSTATIN POWDER 100,000 UNITS/GM - 15 GM TOPICAL POWDER TP SCH (12:02)
[2017-04-24] MEDS: BACITRACIN 15 GM TUBE TOPICAL OINTMENT TP SCH ×2 (12:02→22:14)
[2017-04-24] MEDS: PATIENT'S OWN MEDICATION (NON-FORMULARY) (Aa/Hydrolyzed Collagen, Whey [Lps 15-30 Liquid] PO SCH (12:03)
--- NOTE | 2017-04-24 12:20 | PN ---
Progress Note (short form) - Note Progress Note: PULMONARY Vented on volume assist control with 40% FiO2. No fevers recorded. Last Vital Signs Temp Pulse Resp BP Pulse Ox 97.2 F L 89 22 121/82 95 04/24/17 09:35 04/24/17 10:00 04/24/17 10:00 04/24/17 09:35 04/24/17 10:00 Gen: vented, facial edema Heart: RRR Lung: distant breath sounds Abd: soft, nontender Ext: no edema CBC, BMP 04/24/17 06:45 04/24/17 06:45 Active Medications Acetaminophen (Tylenol -) 650 mg PO Q6H PRN PRN Reason: FEVER OR PAIN Albuterol Sulfate (Ventolin 0.083% Nebulizer Soln -) 1 amp NEB Q4H PRN PRN Reason: SHORT OF BREATH/WHEEZING Amino Acids (Prosource No Carb Liquid Pkt) 30 ml PO BID@0800,1730 [facility] Apixaban (Eliquis -) 2.5 mg PO BID [facility] Last Admin: 04/24/17 09:33 Dose: 2.5 mg Artificial Tears (Artificial Tears) 1 drop OU BID PRN PRN Reason: DRY EYES Last Admin: 04/23/17 10:06 Dose: 1 drop Ascorbic Acid (Vitamin C -) 500 mg PO DAILY [facility] Last Admin: 04/24/17 09:33 Dose: 500 mg Atorvastatin Calcium (Lipitor -) 10 mg PO HS [facility] Last Admin: 04/23/17 22:54 Dose: 10 mg Bacitracin (Bacitracin -) 1 applic TP BID [facility] Last Admin: 04/24/17 12:02 Dose: 1 applic Docusate Sodium (Colace -) 300 mg PO HS [facility] Last Admin: 04/23/17 22:53 Dose: 300 mg Ferrous Sulfate (Feosol -) 325 mg PO BID [facility] Last Admin: 04/24/17 09:33 Dose: 325 mg Vancomycin HCl 1,000 mg/ (Dextrose) 250 mls @ 166.667 mls/hr IVPB Q12H BREANN PRN Reason: Protocol Last Admin: 04/24/17 11:52 Dose: 166.667 mls/hr Ceftriaxone Sodium 2 gm/ (Dextrose) 100 mls @ 100 mls/hr IVPB DAILY [facility] Last Admin: 04/24/17 09:33 Dose: 100 mls/hr Lactobacillus Acidophilus (Bacid -) 1 tab PO DAILY [facility] Last Admin: 04/24/17 09:33 Dose: 1 tab Loratadine (Claritin -) 10 mg PO DAILY [facility] Last Admin: 04/24/17 09:33 Dose: 10 mg Mirtazapine (Remeron -) 15 mg PO HS [facility] Last Admin: 04/23/17 22:55 Dose: 15 mg Multivitamins/Minerals/Vitamin C (Tab-A-Vit -) 1 tab PO DAILY [facility] Last Admin: 04/24/17 09:33 Dose: 1 tab Mupirocin (Bactroban 2% Ointment -) 1 applic TP TID [facility] Last Admin: 04/24/17 06:51 Dose: 1 applic Nystatin (Nystop Powder -) 1 applic TP DAILY [facility] Last Admin: 04/24/17 12:02 Dose: 1 applic Pantoprazole Sodium (Protonix -) 40 mg PO DAILY [facility] Last Admin: 04/24/17 09:33 Dose: 40 mg Potassium Chloride (Potassium Chloride Oral Liquid) 20 meq PO DAILY [facility] Last Admin: 04/24/17 09:33 Dose: 20 meq A/P Facial Cellulitis Chronic Respiratory Failure COPD Atrial Fibrillation CAD HTN Hyperlipidemia - continue antibiotics per ID - inhaled bronchodilators - continue volume assist control - spontaneous breathing trials as tolerated - continue anticoagulation
--- NOTE | 2017-04-24 15:00 | PN ---
Teaching Attending Note Name of Resident: Cno Watts ATTENDING PHYSICIAN STATEMENT I saw and evaluated the patient. I reviewed the resident's note and discussed the case with the resident. I agree with the resident's findings and plan as documented. SUBJECTIVE: More awake and alert No acute distress Breathing non-labored Afebrile WBC improved BC (-) Decreased periorbital swelling and erythema erythema extending to pre-auricular area Cor S1S2 Decreased BS bilat ASSESSMENT AND PLAN: Periorbital cellulitis Respiratory failure Continue vancomycin/ ceftriaxone
[2017-04-24] MEDS: AMINO ACIDS/PROTEIN HYDROLYS 30 ML LIQUID.PKT PO SCH ×2 (18:22→18:41)
[2017-04-24] MEDS: SODIUM CHLORIDE 0.45% 1,000 ML IV SCH (22:13)
[2017-04-24] MEDS: DOCUSATE SODIUM 100 MG CAPSULE (FP) PO SCH (22:15)
[2017-04-24] MEDS: MIRTAZAPINE 15 MG TABLET (FP) PO SCH (22:18)
[2017-04-24] MEDS: ATORVASTATIN CA 10 MG TABLET (FP) PO SCH (22:18)
[2017-04-25] MEDS: ACETAMINOPHEN 325 MG TABLET (FP) PO PRN ×2 (01:24→20:02)
[2017-04-25] MEDS: METOPROLOL TARTRATE 25 MG TABLET (FP) PO SCH ×3 (02:32→21:48)
[2017-04-25] MEDS: MUPIROCIN 2% TOPICAL OINTMENT 22 GM TUBE TP SCH ×3 (06:37→21:49)
[2017-04-25] MEDS ORDERED: PT OWN MED DRAWER 7, Y5N ONE ×3 (08:05→22:02)
[2017-04-25] MEDS ORDERED: DEXTROSE 5%-WATER 100 ML IVPB ONE (08:06)
[2017-04-25] MEDS: AMINO ACIDS/PROTEIN HYDROLYS 30 ML LIQUID.PKT PO SCH ×3 (08:23→17:52)
--- NOTE | 2017-04-25 08:42 | PN ---
Progress Note, Physician Chief Complaint: ID Vancomycin and Ceftriaxone Alert on ventilator - Current Medication List Current Medications: Active Medications Acetaminophen (Tylenol -) 650 mg PO Q6H PRN PRN Reason: FEVER OR PAIN Last Admin: 04/25/17 01:24 Dose: 650 mg Albuterol Sulfate (Ventolin 0.083% Nebulizer Soln -) 1 amp NEB Q4H PRN PRN Reason: SHORT OF BREATH/WHEEZING Amino Acids (Prosource No Carb Liquid Pkt) 30 ml PO BID@0800,1730 [facility] Last Admin: 04/24/17 18:41 Dose: Not Given Apixaban (Eliquis -) 2.5 mg PO BID [facility] Last Admin: 04/24/17 22:18 Dose: 2.5 mg Artificial Tears (Artificial Tears) 1 drop OU BID PRN PRN Reason: DRY EYES Last Admin: 04/23/17 10:06 Dose: 1 drop Ascorbic Acid (Vitamin C -) 500 mg PO DAILY [facility] Last Admin: 04/24/17 09:33 Dose: 500 mg Atorvastatin Calcium (Lipitor -) 10 mg PO HS [facility] Last Admin: 04/24/17 22:18 Dose: 10 mg Bacitracin (Bacitracin -) 1 applic TP BID [facility] Last Admin: 04/24/17 22:14 Dose: 1 applic Docusate Sodium (Colace -) 300 mg PO HS [facility] Last Admin: 04/24/17 22:15 Dose: 300 mg Ferrous Sulfate (Feosol -) 325 mg PO BID [facility] Last Admin: 04/24/17 22:18 Dose: 325 mg Vancomycin HCl 1,000 mg/ (Dextrose) 250 mls @ 166.667 mls/hr IVPB Q12H BREANN PRN Reason: Protocol Last Admin: 04/24/17 22:18 Dose: 166.667 mls/hr Ceftriaxone Sodium 2 gm/ (Dextrose) 100 mls @ 100 mls/hr IVPB DAILY [facility] Last Admin: 04/24/17 09:33 Dose: 100 mls/hr Lactobacillus Acidophilus (Bacid -) 1 tab PO DAILY [facility] Last Admin: 04/24/17 09:33 Dose: 1 tab Loratadine (Claritin -) 10 mg PO DAILY [facility] Last Admin: 04/24/17 09:33 Dose: 10 mg Metoprolol Tartrate (Lopressor -) 25 mg PO BID [facility] Last Admin: 04/25/17 02:32 Dose: 25 mg Mirtazapine (Remeron -) 15 mg PO HS [facility] Last Admin: 04/24/17 22:18 Dose: 15 mg Multivitamins/Minerals/Vitamin C (Tab-A-Vit -) 1 tab PO DAILY [facility] Last Admin: 04/24/17 09:33 Dose: 1 tab Mupirocin (Bactroban 2% Ointment -) 1 applic TP TID [facility] Last Admin: 04/25/17 06:37 Dose: 1 applic Nystatin (Nystop Powder -) 1 applic TP DAILY [facility] Last Admin: 04/24/17 12:02 Dose: 1 applic Pantoprazole Sodium (Protonix -) 40 mg PO DAILY [facility] Last Admin: 04/24/17 09:33 Dose: 40 mg Potassium Chloride (Potassium Chloride Oral Liquid) 20 meq PO DAILY [facility] Last Admin: 04/24/17 09:33 Dose: 20 meq - Objective Vital Signs: Vital Signs Temperature 97.2 F L 04/25/17 06:00 Pulse Rate 71 04/25/17 06:00 Respiratory Rate 16 04/25/17 06:10 Blood Pressure 140/90 04/25/17 06:00 O2 Sat by Pulse Oximetry (%) 91 L 04/24/17 22:00 HENT: Yes: Other (Facial swelling right periorbital left then right mild tenderness) Cardiovascular: Yes: Regular Rate and Rhythm, S1, S2 Gastrointestinal: Yes: Soft. No: Tenderness Edema: No Labs: CBC, BMP 04/24/17 06:45 04/24/17 06:45 INR, PTT INR 1.37 (0.82-1.09) H 04/23/17 01:00 Problem List - Problems (1) Facial cellulitis Code(s): L03.211 - CELLULITIS OF FACE Assessment/Plan Microbiology 04/23/17 14:45 Sputum - Endotrachea Suction/Ventilator Gram Stain - Final 04/23/17 01:00 Blood - Peripheral Venous Blood Culture - Preliminary NO GROWTH OBTAINED AFTER 48 HOURS, INCUBATION TO CONTINUE FOR 3 DAYS. 04/23/17 00:50 Blood - Peripheral Venous Blood Culture - Preliminary NO GROWTH OBTAINED AFTER 48 HOURS, INCUBATION TO CONTINUE FOR 3 DAYS. Laboratory Tests 04/23/17 04/24/17 04/24/17 01:15 06:45 06:45 WBC 13.1 H D 9.9 Hgb 10.6 L Hct 33.8 Plt Count 192 BUN 21 H D Creatinine 0.5 L Creat Clearance w eGFR > 60 Assessment Facial cellulitis improving Plan Continue current therapy/ Vanco trough level Alfred GOMEZ
[2017-04-25] MEDS: MULTIVITAMINS (DAILY MVI) TABLET (FP) PO SCH (09:13)
[2017-04-25] MEDS: BACITRACIN 15 GM TUBE TOPICAL OINTMENT TP SCH ×2 (09:13→21:49)
[2017-04-25] MEDS: LACTOBACILLUS ACIDOPHILUS 1 EACH TAB (FP) PO SCH (09:13)
[2017-04-25] MEDS: ASCORBIC ACID 500 MG TABLET (FP) PO SCH (09:13)
[2017-04-25] MEDS: PANTOPRAZOLE 40 MG TABLET (FP) PO SCH (09:13)
[2017-04-25] MEDS: FERROUS SO4 325 MG TABLET (FP) PO SCH ×2 (09:13→21:48)
[2017-04-25] MEDS: LORATADINE 10 MG TABLET PO SCH (09:13)
[2017-04-25] MEDS: CEFTRIAXONE 2 GM in DEXTROSE 5%-WATER 100 ML IVPB SCH (09:16)
[2017-04-25] MEDS: POTASSIUM CHLORIDE ORAL LIQUID 20 MEQ/15 ML PO SCH (09:21)
[2017-04-25] MEDS: APIXABAN 2.5 MG TABLET PO SCH ×2 (09:22→22:06)
[2017-04-25] MEDS: NYSTATIN POWDER 100,000 UNITS/GM - 15 GM TOPICAL POWDER TP SCH (09:25)
[2017-04-25 11:20] LABS: BASOPHIL 0.3 % (0-2.0); EOSINOPHIL 1.1 % (0-4.5); MCH 25.7 pg (25.7-33.7); MEAN CELL VOLUME 82.8 fl (80-96); MEAN PLT VOLUME 8.7 fl (7.5-11.1); NEUTROPHILS 87.7 % (42.8-82.8); PLATELET COUNT 172 K/MM3 (134-434); RDW 17.9 % (11.6-15.6); WHITE BLOOD COUNT 19.6 K/mm3 (4.0-10.0)
[2017-04-25 11:48] LABS: ALBUMIN 2.3 g/dl (3.4-5.0); ANION GAP 5 (8-16); BILIRUBIN,TOTAL 0.2 mg/dL (0.2-1.0); CALCIUM 8.4 mg/dL (8.5-10.1); CO2 30 mmol/L (21-32); CREATININE 0.7 mg/dL (0.55-1.02); GLUCOSE,RANDOM 114 mg/dL (74-106); SGOT/AST 13 U/L (15-37); SGPT/ALT 10 U/L (12-78); TOT PROT 6.6 g/dl (6.4-8.2)
[2017-04-25 11:57] LABS: ALK PHOS 70 U/L (45-117); CPK 29 IU/L (26-192); THYROID STIMULATING HORMONE 2.29 uIU/ml (0.358-3.74); TROPONIN I < 0.02 ng/ml (0.00-0.05)
--- NOTE | 2017-04-25 13:04 | EKG ---
Test Reason : Blood Pressure : / mmHG Vent. 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
--- NOTE | 2017-04-25 13:36 | PN ---
Progress Note (short form) - Note Progress Note: PULMONARY APPEARS COMFORTABLE ON VENT FACIAL CELLULITIS IMPROVING VSS/AFEBRILE/CULTURES NEGATIVE THUS FAR ERYTHEMA/EDEMA IMPROVING DALILA-ORBITAL CHEST DISTANT BREATH SOUNDS S1S2 BS+ NO EDEMA LABS/MEDS/NOTES/IMAGING/MICRO/ REVIEWED A/P Facial Cellulitis Chronic Respiratory Failure COPD Atrial Fibrillation CAD HTN Hyperlipidemia - continue antibiotics per ID - inhaled bronchodilators - continue volume assist control - spontaneous breathing trials as tolerated - continue anticoagulation Brandi FLOREZ MD
--- NOTE | 2017-04-25 16:32 | PN ---
Progress Note, Physician Chief Complaint: leslie-orbital cellulitis vs Impetigo History of Present Illness: NAD, no pain, rash had characteristic metzger crusty appearance seen by ID -on IV abx, vanco on hold, also on Ceftriaxone - Current Medication List Current Medications: Active Medications Acetaminophen (Tylenol -) 650 mg PO Q6H PRN PRN Reason: FEVER OR PAIN Last Admin: 04/25/17 01:24 Dose: 650 mg Albuterol Sulfate (Ventolin 0.083% Nebulizer Soln -) 1 amp NEB Q4H PRN PRN Reason: SHORT OF BREATH/WHEEZING Amino Acids (Prosource No Carb Liquid Pkt) 30 ml PO BID@0800,1730 [facility] Last Admin: 04/25/17 12:00 Dose: Not Given Apixaban (Eliquis -) 2.5 mg PO BID [facility] Last Admin: 04/25/17 09:22 Dose: 2.5 mg Artificial Tears (Artificial Tears) 1 drop OU BID PRN PRN Reason: DRY EYES Last Admin: 04/23/17 10:06 Dose: 1 drop Ascorbic Acid (Vitamin C -) 500 mg PO DAILY [facility] Last Admin: 04/25/17 09:13 Dose: 500 mg Atorvastatin Calcium (Lipitor -) 10 mg PO HS [facility] Last Admin: 04/24/17 22:18 Dose: 10 mg Bacitracin (Bacitracin -) 1 applic TP BID [facility] Last Admin: 04/25/17 09:13 Dose: 1 applic Docusate Sodium (Colace -) 300 mg PO HS [facility] Last Admin: 04/24/17 22:15 Dose: 300 mg Ferrous Sulfate (Feosol -) 325 mg PO BID [facility] Last Admin: 04/25/17 09:13 Dose: 325 mg Ceftriaxone Sodium 2 gm/ (Dextrose) 100 mls @ 100 mls/hr IVPB DAILY [facility] Last Admin: 04/25/17 09:16 Dose: 100 mls/hr Lactobacillus Acidophilus (Bacid -) 1 tab PO DAILY [facility] Last Admin: 04/25/17 09:13 Dose: 1 tab Loratadine (Claritin -) 10 mg PO DAILY [facility] Last Admin: 04/25/17 09:13 Dose: 10 mg Metoprolol Tartrate (Lopressor -) 25 mg PO BID [facility] Last Admin: 04/25/17 09:25 Dose: Not Given Mirtazapine (Remeron -) 15 mg PO HS [facility] Last Admin: 04/24/17 22:18 Dose: 15 mg Multivitamins/Minerals/Vitamin C (Tab-A-Vit -) 1 tab PO DAILY [facility] Last Admin: 04/25/17 09:13 Dose: 1 tab Mupirocin (Bactroban 2% Ointment -) 1 applic TP TID [facility] Last Admin: 04/25/17 13:53 Dose: 1 applic Nystatin (Nystop Powder -) 1 applic TP DAILY [facility] Last Admin: 04/25/17 09:25 Dose: 1 applic Pantoprazole Sodium (Protonix -) 40 mg PO DAILY [facility] Last Admin: 04/25/17 09:13 Dose: 40 mg Potassium Chloride (Potassium Chloride Oral Liquid) 20 meq PO DAILY [facility] Last Admin: 04/25/17 09:21 Dose: 20 meq - Objective Vital Signs: Vital Signs Temperature 99.8 F H 04/25/17 15:13 Pulse Rate 79 04/25/17 15:13 Respiratory Rate 17 04/25/17 15:13 Blood Pressure 116/51 04/25/17 15:13 O2 Sat by Pulse Oximetry (%) 91 L 04/25/17 10:18 Constitutional: Yes: Well Nourished, No Distress, Calm Cardiovascular: Yes: Regular Rate and Rhythm Respiratory: Yes: Regular Musculoskeletal: Yes: WNL Extremities: Yes: WNL Edema: No Peripheral Pulses WNL: Yes Integumentary: Yes: Rash (adherent crusts with a characteristic metzger appearance) Neurological: Yes: Alert Psychiatric: Yes: Alert Labs: CBC, BMP 04/25/17 11:05 04/25/17 11:05 INR, PTT INR 1.37 (0.82-1.09) H 04/23/17 01:00 Problem List - Problems (1) Fever Assessment/Plan: -secondary to infectious process -blood culture -tylenol for fever over 100.0 F Code(s): R50.9 - FEVER, UNSPECIFIED (2) Sinus tachycardia Assessment/Plan: -secondary to infectious process -blood culture -tylenol for fever over 100.0 F -on metoprolol 25 mg po BID, hold for SBP below 100 -seen by cardiology -no further cardiac workup recommended Code(s): R00.0 - TACHYCARDIA, UNSPECIFIED (3) Functional quadriplegia Code(s): R53.2 - FUNCTIONAL QUADRIPLEGIA (4) Leukocytosis Assessment/Plan: -WBC increased today -ID on board -IV abx -BC pending- preliminary negative Code(s): D72.829 - ELEVATED WHITE BLOOD CELL COUNT, UNSPECIFIED (5) Facial rash Assessment/Plan: -cellulitis vs Non bullous impetigo -seen by ID -IV abx- Vanco on hold, on Ceftriaxone -wound Culture -WBC increased -febrile overnight and low grade temp now -mupirocin ointment on the rash Code(s): R21 - RASH AND OTHER NONSPECIFIC SKIN ERUPTION (6) Chronic respiratory failure Assessment/Plan: -on mech vent -seen by pulmonary Code(s): J96.10 - CHRONIC RESPIRATORY FAILURE, UNSP W HYPOXIA OR HYPERCAPNIA Qualifiers: Respiratory failure complication: hypercapnia Qualified Code(s): J96.12 - Chronic respiratory failure with hypercapnia; J96.12 - Chronic respiratory failure with hypercapnia; J96.12 - Chronic respiratory failure with hypercapnia Assessment/Plan see problem list
--- NOTE | 2017-04-25 16:37 | CON.CARD ---
Consult Consult Specialty:: Cardiology Reason for Consultation:: AFIB. AICD - History of Present Illness Chief Complaint: Appears comfortable History of Present Illness: This is an 82 year old female with a PMH of PAFIB, HLD, CHF, cardiac arrest in 1998, S/P a [employer] AICD single lead, COPD, vent failure s/p trach, vent dependent. History of AFIB and was on Xarelto and developed a GI bleed. She was then placed on Eliquis 2.5 mg Q12h. She was sent to the emergency department via EMS from [facility] by Dr. Verduzco for evaluation of facial rashfor 3 days. - Past Medical History [employer]: Yes: CVA, Dementia, Parkinson's Cardio/Vascular: Yes: AFIB (Paroxysmal), CHF, HTN, Hyperlipdemia, Other (h/o cardiac arrest s/p AICD - Single lead) Pulmonary: Yes: COPD, Other (respiratory failure) Gastrointestinal: Yes: GERD - Past Surgical History Past Surgical History: Yes: AICD (Medtronic, implanted following cardiac arrest) , Cataract Removal (2011) - Alcohol/Substance Use Hx Alcohol Use: No - Smoking History Smoking history: Unknown if ever smoked Have you smoked in the past 12 months: No Aproximately how many cigarettes per day: 0 - Social History Usual Living Arrangement: Alf History of Recent Travel: No Home Medications - Allergies Allergies/Adverse Reactions: Allergies Allergy/AdvReac Type Severity Reaction Status Date / Time doxycycline Allergy Intermediate Verified 04/22/17 23:48 [facility] Allergy Intermediate Hives Uncoded 04/22/17 23:48 - Home Medications Home Medications: Ambulatory Orders Ascorbic Acid [Vitamin C -] 500 mg PO DAILY 10/19/16 Docusate Sodium 300 mg PO HS 10/19/16 Aa/Hydrolyzed Collagen, Whey [Lps 15-30 Liquid] 30 ml PO BID 01/08/17 Acetaminophen [Tylenol .Regular Strength -] 650 mg PO Q6H PRN #0 tablet Albuterol 0.083% Nebulizer Yady [Ventolin 0.083% Nebulizer Soln -] 1 amp NEB Q4H PRN #180 amp 03/20/17 Apixaban [Eliquis -] 2.5 mg PO BID tablet 03/20/17 Atorvastatin Ca [Lipitor] 10 mg PO HS #30 tablet 03/20/17 Ferrous Sulfate 325 mg PO BID #60 tab 03/20/17 Hypromellose 0.5% Opth Soln [Artificial Tears] 1 drop OU BID #1 bottle 03/20/17 Lactobacillus Acidophilus [Bacid -] 1 tab PO DAILY #30 tab 03/20/17 Loratadine [Claritin -] 10 mg PO DAILY #30 tablet 03/20/17 Mirtazapine [Remeron -] 15 mg PO HS #30 tablet 03/20/17 Multivitamins [Multivit ([facility] Formulary)] 1 tab PO DAILY #30 tab 03/20/17 Nystatin Powder [Nystop Powder -] 1 applic TP DAILY #1 applic 03/20/17 Pantoprazole Sodium [Protonix -] 40 mg PO DAILY #30 tab 03/20/17 Polyvinyl Alcohol [Artificial Tears] 1 drop OU BID PRN #1 bottle 03/20/17 Potassium Chloride Oral Soln [KCl Oral Solution] 20 meq PO DAILY #30 cup Review of Systems Unable to obtain ROS, reason: As per HPI Vital Signs: Vital Signs Temperature 99.8 F H 04/25/17 15:13 Pulse Rate 79 04/25/17 15:13 Respiratory Rate 17 04/25/17 15:13 Blood Pressure 116/51 04/25/17 15:13 O2 Sat by Pulse Oximetry (%) 91 L 04/25/17 10:18 Constitutional: Yes: No Distress Neck: Yes: Other (Trach) Respiratory: Yes: Other (Course vent sounds bilaterally) Gastrointestinal: Yes: Soft Cardiovascular: Yes: Pulse Irregular (NL S1S2, no MRHG) Edema: LLE: Trace, RLE: Trace Neurological: Yes: Alert (Grossly nonfocal) - Other Data Labs, Other Data: CBC, BMP 04/25/17 11:05 04/25/17 11:05 INR, PTT INR 1.37 (0.82-1.09) H 04/23/17 01:00 Troponin, BNP 04/25/17 11:05 Troponin I < 0.02 Troponin, BNP 04/25/17 11:05 Troponin I < 0.02 Assessment/Plan PAFIB Hemodynamically stable Tolerating Eliquis with no signs of GIB at this time HR are currently well controlled Continue Lipitor for secondary prevention
[2017-04-25] MEDS: MIRTAZAPINE 15 MG TABLET (FP) PO SCH (21:48)
[2017-04-25] MEDS: ATORVASTATIN CA 10 MG TABLET (FP) PO SCH (21:48)
[2017-04-25] MEDS: DOCUSATE SODIUM 100 MG CAPSULE (FP) PO SCH (21:48)
[2017-04-26] MEDS: MUPIROCIN 2% TOPICAL OINTMENT 22 GM TUBE TP SCH ×3 (06:40→21:36)
[2017-04-26] MEDS ORDERED: PT OWN MED DRAWER 7, Y5N ONE ×3 (09:26→17:01)
[2017-04-26] MEDS ORDERED: DEXTROSE 5%-WATER 100 ML IVPB ONE (09:27)
[2017-04-26] MEDS: ASCORBIC ACID 500 MG TABLET (FP) PO SCH (09:37)
[2017-04-26] MEDS: AMINO ACIDS/PROTEIN HYDROLYS 30 ML LIQUID.PKT PO SCH ×2 (09:37→17:55)
[2017-04-26] MEDS: APIXABAN 2.5 MG TABLET PO SCH ×2 (09:37→21:36)
[2017-04-26] MEDS: POTASSIUM CHLORIDE ORAL LIQUID 20 MEQ/15 ML PO SCH (09:37)
[2017-04-26] MEDS: CEFTRIAXONE 2 GM in DEXTROSE 5%-WATER 100 ML IVPB SCH (09:37)
[2017-04-26] MEDS: PANTOPRAZOLE 40 MG TABLET (FP) PO SCH (09:38)
[2017-04-26] MEDS: LORATADINE 10 MG TABLET PO SCH (09:38)
[2017-04-26] MEDS: MULTIVITAMINS (DAILY MVI) TABLET (FP) PO SCH (09:38)
[2017-04-26] MEDS: FERROUS SO4 325 MG TABLET (FP) PO SCH ×2 (09:38→21:35)
[2017-04-26] MEDS: LACTOBACILLUS ACIDOPHILUS 1 EACH TAB (FP) PO SCH (09:40)
[2017-04-26] MEDS: NYSTATIN POWDER 100,000 UNITS/GM - 15 GM TOPICAL POWDER TP SCH (09:41)
[2017-04-26] MEDS: BACITRACIN 15 GM TUBE TOPICAL OINTMENT TP SCH ×2 (09:43→21:36)
[2017-04-26] MEDS: ARTIFICIAL TEARS (POLYVINYL ALCOHOL 1.4%) OPTH DROPS OU PRN (09:43)
--- NOTE | 2017-04-26 10:26 | PN ---
Progress Note, Physician Chief Complaint: leslie-orbital cellulitis vs Impetigo History of Present Illness: NAD, no pain, rash had characteristic metzger crusty appearance seen by ID -on IV abx, vanco on hold, also on Ceftriaxone - Current Medication List Current Medications: Active Medications Acetaminophen (Tylenol -) 650 mg PO Q6H PRN PRN Reason: FEVER OR PAIN Last Admin: 04/25/17 20:02 Dose: 650 mg Albuterol Sulfate (Ventolin 0.083% Nebulizer Soln -) 1 amp NEB Q4H PRN PRN Reason: SHORT OF BREATH/WHEEZING Amino Acids (Prosource No Carb Liquid Pkt) 30 ml PO BID@0800,1730 [facility] Last Admin: 04/26/17 09:37 Dose: 30 ml Apixaban (Eliquis -) 2.5 mg PO BID [facility] Last Admin: 04/26/17 09:37 Dose: 2.5 mg Artificial Tears (Artificial Tears) 1 drop OU BID PRN PRN Reason: DRY EYES Last Admin: 04/26/17 09:43 Dose: 1 drop Ascorbic Acid (Vitamin C -) 500 mg PO DAILY [facility] Last Admin: 04/26/17 09:37 Dose: 500 mg Atorvastatin Calcium (Lipitor -) 10 mg PO HS [facility] Last Admin: 04/25/17 21:48 Dose: 10 mg Bacitracin (Bacitracin -) 1 applic TP BID [facility] Last Admin: 04/26/17 09:43 Dose: 1 applic Docusate Sodium (Colace -) 300 mg PO HS [facility] Last Admin: 04/25/17 21:48 Dose: 300 mg Ferrous Sulfate (Feosol -) 325 mg PO BID [facility] Last Admin: 04/26/17 09:38 Dose: 325 mg Ceftriaxone Sodium 2 gm/ (Dextrose) 100 mls @ 100 mls/hr IVPB DAILY [facility] Last Admin: 04/26/17 09:37 Dose: 100 mls/hr Lactobacillus Acidophilus (Bacid -) 1 tab PO DAILY [facility] Last Admin: 04/26/17 09:40 Dose: 1 tab Loratadine (Claritin -) 10 mg PO DAILY [facility] Last Admin: 04/26/17 09:38 Dose: 10 mg Metoprolol Tartrate (Lopressor -) 25 mg PO BID [facility] Last Admin: 04/25/17 21:48 Dose: 25 mg Mirtazapine (Remeron -) 15 mg PO HS [facility] Last Admin: 04/25/17 21:48 Dose: 15 mg Multivitamins/Minerals/Vitamin C (Tab-A-Vit -) 1 tab PO DAILY [facility] Last Admin: 04/26/17 09:38 Dose: 1 tab Mupirocin (Bactroban 2% Ointment -) 1 applic TP TID [facility] Last Admin: 04/26/17 06:40 Dose: 1 applic Nystatin (Nystop Powder -) 1 applic TP DAILY [facility] Last Admin: 04/26/17 09:41 Dose: 1 applic Pantoprazole Sodium (Protonix -) 40 mg PO DAILY [facility] Last Admin: 04/26/17 09:38 Dose: 40 mg Potassium Chloride (Potassium Chloride Oral Liquid) 20 meq PO DAILY [facility] Last Admin: 04/26/17 09:37 Dose: 20 meq - Objective Vital Signs: Vital Signs Temperature 96 F L 04/26/17 09:00 Pulse Rate 74 04/26/17 09:00 Respiratory Rate 14 04/26/17 09:00 Blood Pressure 103/58 04/26/17 09:00 O2 Sat by Pulse Oximetry (%) 97 04/25/17 21:00 Constitutional: Yes: Well Nourished, No Distress, Calm Cardiovascular: Yes: Regular Rate and Rhythm Respiratory: Yes: Regular Musculoskeletal: Yes: WNL Edema: No Peripheral Pulses WNL: Yes Integumentary: Yes: Rash (facial) Neurological: Yes: Alert, Oriented Psychiatric: Yes: Alert, Oriented Labs: CBC, BMP 04/25/17 11:05 04/25/17 11:05 INR, PTT INR 1.37 (0.82-1.09) H 04/23/17 01:00 Problem List - Problems (1) Fever Assessment/Plan: -secondary to infectious process -blood culture -tylenol for fever over 100.0 F -repeat labs today and in AM Code(s): R50.9 - FEVER, UNSPECIFIED (2) Sinus tachycardia Assessment/Plan: -secondary to infectious process -blood culture -tylenol for fever over 100.0 F -on metoprolol 25 mg po BID, hold for SBP below 100 -seen by cardiology -no further cardiac workup recommended Code(s): R00.0 - TACHYCARDIA, UNSPECIFIED (3) Functional quadriplegia Code(s): R53.2 - FUNCTIONAL QUADRIPLEGIA (4) Leukocytosis Assessment/Plan: -WBC increased today -ID on board -IV abx -BC pending- preliminary negative -repeat labs today and in AM Code(s): D72.829 - ELEVATED WHITE BLOOD CELL COUNT, UNSPECIFIED (5) Facial rash Assessment/Plan: -cellulitis vs Non bullous impetigo -seen by ID -IV abx- Vanco on hold, on Ceftriaxone -wound Culture pending -WBC increased -febrile overnight and low grade temp now -mupirocin ointment on the rash Code(s): R21 - RASH AND OTHER NONSPECIFIC SKIN ERUPTION (6) Chronic respiratory failure Assessment/Plan: -on mech vent -seen by pulmonary Code(s): J96.10 - CHRONIC RESPIRATORY FAILURE, UNSP W HYPOXIA OR HYPERCAPNIA Qualifiers: Respiratory failure complication: hypercapnia Qualified Code(s): J96.12 - Chronic respiratory failure with hypercapnia; J96.12 - Chronic respiratory failure with hypercapnia; J96.12 - Chronic respiratory failure with hypercapnia Assessment/Plan see problem list
[2017-04-26 10:44] LABS: BASOPHIL 1.5 % (0-2.0); EOSINOPHIL 3.9 % (0-4.5); MCH 26.1 pg (25.7-33.7); MCHC 31.2 g/dl (32.0-36.0); MEAN CELL VOLUME 83.8 fl (80-96); MEAN PLT VOLUME 9.3 fl (7.5-11.1); NEUTROPHILS 77.4 % (42.8-82.8); PLATELET COUNT 175 K/MM3 (134-434); RDW 17.9 % (11.6-15.6); WHITE BLOOD COUNT 11.1 K/mm3 (4.0-10.0)
[2017-04-26 10:52] LABS: ALBUMIN 2.4 g/dl (3.4-5.0); ALK PHOS 73 U/L (45-117); ANION GAP 7 (8-16); BILIRUBIN,TOTAL 0.3 mg/dL (0.2-1.0); CALCIUM 8.6 mg/dL (8.5-10.1); CO2 28 mmol/L (21-32); CREATININE 0.5 mg/dL (0.55-1.02); GLUCOSE,RANDOM 88 mg/dL (74-106); SGOT/AST 12 U/L (15-37); SGPT/ALT 9 U/L (12-78); TOT PROT 6.7 g/dl (6.4-8.2)
[2017-04-26] MEDS: METOPROLOL TARTRATE 25 MG TABLET (FP) PO SCH ×3 (11:15→21:35)
--- NOTE | 2017-04-26 11:38 | PN ---
Progress Note (short form) - Note Progress Note: PULMONARY Vented on volume assist control with 40% FiO2. No fevers recorded. Last Vital Signs Temp Pulse Resp BP Pulse Ox 96 F L 74 14 103/58 97 04/26/17 09:00 04/26/17 10:42 04/26/17 10:42 04/26/17 09:00 04/26/17 10:42 Gen: vented, facial edema Heart: RRR Lung: distant breath sounds Abd: soft, nontender Ext: no edema CBC, BMP 04/26/17 06:50 04/26/17 06:50 Active Medications Acetaminophen (Tylenol -) 650 mg PO Q6H PRN PRN Reason: FEVER OR PAIN Last Admin: 04/25/17 20:02 Dose: 650 mg Albuterol Sulfate (Ventolin 0.083% Nebulizer Soln -) 1 amp NEB Q4H PRN PRN Reason: SHORT OF BREATH/WHEEZING Amino Acids (Prosource No Carb Liquid Pkt) 30 ml PO BID@0800,1730 [facility] Last Admin: 04/26/17 09:37 Dose: 30 ml Apixaban (Eliquis -) 2.5 mg PO BID [facility] Last Admin: 04/26/17 09:37 Dose: 2.5 mg Artificial Tears (Artificial Tears) 1 drop OU BID PRN PRN Reason: DRY EYES Last Admin: 04/26/17 09:43 Dose: 1 drop Ascorbic Acid (Vitamin C -) 500 mg PO DAILY [facility] Last Admin: 04/26/17 09:37 Dose: 500 mg Atorvastatin Calcium (Lipitor -) 10 mg PO HS [facility] Last Admin: 04/25/17 21:48 Dose: 10 mg Bacitracin (Bacitracin -) 1 applic TP BID [facility] Last Admin: 04/26/17 09:43 Dose: 1 applic Docusate Sodium (Colace -) 300 mg PO HS [facility] Last Admin: 04/25/17 21:48 Dose: 300 mg Ferrous Sulfate (Feosol -) 325 mg PO BID [facility] Last Admin: 04/26/17 09:38 Dose: 325 mg Ceftriaxone Sodium 2 gm/ (Dextrose) 100 mls @ 100 mls/hr IVPB DAILY [facility] Last Admin: 04/26/17 09:37 Dose: 100 mls/hr Lactobacillus Acidophilus (Bacid -) 1 tab PO DAILY [facility] Last Admin: 04/26/17 09:40 Dose: 1 tab Loratadine (Claritin -) 10 mg PO DAILY [facility] Last Admin: 04/26/17 09:38 Dose: 10 mg Metoprolol Tartrate (Lopressor -) 25 mg PO BID [facility] Last Admin: 04/26/17 11:15 Dose: Not Given Mirtazapine (Remeron -) 15 mg PO HS [facility] Last Admin: 04/25/17 21:48 Dose: 15 mg Multivitamins/Minerals/Vitamin C (Tab-A-Vit -) 1 tab PO DAILY [facility] Last Admin: 04/26/17 09:38 Dose: 1 tab Mupirocin (Bactroban 2% Ointment -) 1 applic TP TID [facility] Last Admin: 04/26/17 06:40 Dose: 1 applic Nystatin (Nystop Powder -) 1 applic TP DAILY [facility] Last Admin: 04/26/17 09:41 Dose: 1 applic Pantoprazole Sodium (Protonix -) 40 mg PO DAILY [facility] Last Admin: 04/26/17 09:38 Dose: 40 mg Potassium Chloride (Potassium Chloride Oral Liquid) 20 meq PO DAILY [facility] Last Admin: 04/26/17 09:37 Dose: 20 meq A/P Facial Cellulitis Chronic Respiratory Failure COPD Atrial Fibrillation CAD HTN Hyperlipidemia - continue antibiotics per ID - inhaled bronchodilators - continue volume assist control - spontaneous breathing trials as tolerated - continue anticoagulation
--- NOTE | 2017-04-26 14:53 | PN ---
Physical Exam: Consulting Specialty: Infectious Disease SUBJECTIVE: Patient seen in NAD at bedside. Last night pt had Tmax of 101.3 which was alleviated with tylenol. No fevers since. Pt is much more alert today and is nodding to yes or no questions per baseline. Pt is able to open her eyes and expresses no complaints currently. OBJECTIVE: Vital Signs Period Temp Pulse Resp BP Sys/Vera Pulse Ox Last 24 Hr 96 F-101.3 F 72-89 14-21 98-124/50-66 97-97 GENERAL: No acute distress. Alert resting comfortably in bed HEENT: Moist mucosa no plaques noted. Facial edema is minimal if any. Erythema persists from maxilla to supraorbital ridges. Eyes: EOMI, no purulent drainage noted, sclera WNL, PERRL. NECK: Tracheostomy site connected to ventilator. Site without any drainage noted LUNGS: CTA bilaterally, transmitted ventilator sounds, no wheezes, no crackles HEART: RRR, S1, S2 without murmur, rub or gallop. ABDOMEN: Soft, nontender, nondistended, normoactive bowel sound EXTREMITIES: No edema. No rashes lesions or sores noted NEUROLOGICAL: Alert at bedside. Follows commands without problem Laboratory Results - last 24 hr 04/26/17 04/26/17 04/26/17 06:05 06:50 06:50 WBC 11.1 H D RBC 3.91 Hgb 10.2 L Hct 32.8 MCV 83.8 MCH 26.1 MCHC 31.2 L RDW 17.9 H Plt Count 175 MPV 9.3 Neutrophils % 77.4 Lymphocytes % 9.9 D Monocytes % 7.3 Eosinophils % 3.9 D Basophils % 1.5 D Sodium 137 Potassium 3.9 Chloride 102 Carbon Dioxide 28 Anion Gap 7 L BUN 11 Creatinine 0.5 L D Creat Clearance w eGFR > 60 Random Glucose 88 D Calcium 8.6 Total Bilirubin 0.3 D AST 12 L ALT 9 L Alkaline Phosphatase 73 Total Protein 6.7 Albumin 2.4 L Random Vancomycin 15.142 Active Medications Generic Name Dose Route Start Last Admin Trade Name Freq PRN Reason Stop Dose Admin Acetaminophen 650 mg 04/23/17 07:46 04/25/17 20:02 Tylenol - PO 650 mg Q6H PRN Administration FEVER OR PAIN Albuterol Sulfate 1 amp 04/23/17 07:46 Ventolin 0.083% Nebulizer Soln - NEB Q4H PRN SHORT OF BREATH/WHEEZING Amino Acids 30 ml 04/24/17 17:30 04/26/17 09:37 Prosource No Carb Liquid Pkt PO 30 ml BID@0800,1730 [facility] Administration Apixaban 2.5 mg 04/23/17 10:00 04/26/17 09:37 Eliquis - PO 2.5 mg BID [facility] Administration Artificial Tears 1 drop 04/23/17 07:46 04/26/17 09:43 Artificial Tears OU 1 drop BID PRN Administration DRY EYES Ascorbic Acid 500 mg 04/23/17 10:00 04/26/17 09:37 Vitamin C - PO 500 mg DAILY [facility] Administration Atorvastatin Calcium 10 mg 04/23/17 22:00 04/25/17 21:48 Lipitor - PO 10 mg HS [facility] Administration Bacitracin 1 applic 04/23/17 12:00 04/26/17 09:43 Bacitracin - TP 1 applic BID [facility] Administration Docusate Sodium 300 mg 04/23/17 22:00 04/25/17 21:48 Colace - PO 300 mg HS [facility] Administration Ferrous Sulfate 325 mg 04/23/17 10:00 04/26/17 09:38 Feosol - PO 325 mg BID [facility] Administration Ceftriaxone Sodium 2 gm/ 100 mls @ 100 mls/hr 04/23/17 12:45 04/26/17 09:37 Dextrose IVPB 100 mls/hr DAILY [facility] Administration Vancomycin HCl 750 mg/ 250 mls @ 166.667 mls/hr 04/26/17 13:30 Dextrose IVPB DAILY@1330 [facility] Protocol Lactobacillus Acidophilus 1 tab 04/23/17 10:00 04/26/17 09:40 Bacid - PO 1 tab DAILY [facility] Administration Loratadine 10 mg 04/23/17 10:00 04/26/17 09:38 Claritin - PO 10 mg DAILY [facility] Administration Metoprolol Tartrate 12.5 mg 04/26/17 14:45 Lopressor - PO BID [facility] Mirtazapine 15 mg 04/23/17 22:00 04/25/17 21:48 Remeron - PO 15 mg HS [facility] Administration Multivitamins/Minerals/Vitamin C 1 tab 04/23/17 10:00 04/26/17 09:38 Tab-A-Vit - PO 1 tab DAILY [facility] Administration Mupirocin 1 applic 04/23/17 15:00 04/26/17 06:40 Bactroban 2% Ointment - TP 1 applic TID [facility] Administration Nystatin 1 applic 04/23/17 10:00 04/26/17 09:41 Nystop Powder - TP 1 applic DAILY [facility] Administration Pantoprazole Sodium 40 mg 04/23/17 10:00 04/26/17 09:38 Protonix - PO 40 mg DAILY [facility] Administration Potassium Chloride 20 meq 04/23/17 10:00 04/26/17 09:37 Potassium Chloride Oral Liquid PO 20 meq DAILY [facility] Administration ASSESSMENT: B/L facial cellulitis Impetigo End-stage lung disease PLAN: Pt's cellulitis markedly improved with ability to open eyes currently. WBC continues to decrease; currently 11,000 Sputum culture resolved to be normal respiratory sandy. Antibiotic Treatment Day 3: Vancomycin resumed at 750mg IV qDaily --Today's Random Vancomycin level 15 Continue Rocephin 2gm IV qDaily Case discussed with Dr. Mingo Watts, DO - Internal Medicine PGY-1 Visit type - Emergency Visit Emergency Visit: No - New Patient This patient is new to me today: No - Critical Care Critical Care patient: No
--- NOTE | 2017-04-26 16:12 | PN ---
Progress Note, Physician Chief Complaint: Not in distress History of Present Illness: This is an 82 year old female with a PMH of PAFIB, HLD, CHF, cardiac arrest in 1998, S/P a [employer] AICD single lead, COPD, vent failure s/p trach, vent dependent. History of AFIB and was on Xarelto and developed a GI bleed. She was then placed on Eliquis 2.5 mg Q12h. She was sent to the emergency department via EMS from [facility] by Dr. Verduzco for evaluation of facial rash for 3 days. - Current Medication List Current Medications: Active Medications Acetaminophen (Tylenol -) 650 mg PO Q6H PRN PRN Reason: FEVER OR PAIN Last Admin: 04/25/17 20:02 Dose: 650 mg Albuterol Sulfate (Ventolin 0.083% Nebulizer Soln -) 1 amp NEB Q4H PRN PRN Reason: SHORT OF BREATH/WHEEZING Amino Acids (Prosource No Carb Liquid Pkt) 30 ml PO BID@0800,1730 [facility] Last Admin: 04/26/17 09:37 Dose: 30 ml Apixaban (Eliquis -) 2.5 mg PO BID [facility] Last Admin: 04/26/17 09:37 Dose: 2.5 mg Artificial Tears (Artificial Tears) 1 drop OU BID PRN PRN Reason: DRY EYES Last Admin: 04/26/17 09:43 Dose: 1 drop Ascorbic Acid (Vitamin C -) 500 mg PO DAILY [facility] Last Admin: 04/26/17 09:37 Dose: 500 mg Atorvastatin Calcium (Lipitor -) 10 mg PO HS [facility] Last Admin: 04/25/17 21:48 Dose: 10 mg Bacitracin (Bacitracin -) 1 applic TP BID [facility] Last Admin: 04/26/17 09:43 Dose: 1 applic Docusate Sodium (Colace -) 300 mg PO HS [facility] Last Admin: 04/25/17 21:48 Dose: 300 mg Ferrous Sulfate (Feosol -) 325 mg PO BID [facility] Last Admin: 04/26/17 09:38 Dose: 325 mg Ceftriaxone Sodium 2 gm/ (Dextrose) 100 mls @ 100 mls/hr IVPB DAILY [facility] Last Admin: 04/26/17 09:37 Dose: 100 mls/hr Vancomycin HCl 750 mg/ (Dextrose) 250 mls @ 166.667 mls/hr IVPB DAILY@1330 [facility] PRN Reason: Protocol Lactobacillus Acidophilus (Bacid -) 1 tab PO DAILY [facility] Last Admin: 04/26/17 09:40 Dose: 1 tab Loratadine (Claritin -) 10 mg PO DAILY [facility] Last Admin: 04/26/17 09:38 Dose: 10 mg Metoprolol Tartrate (Lopressor -) 12.5 mg PO BID [facility] Last Admin: 04/26/17 15:24 Dose: 12.5 mg Mirtazapine (Remeron -) 15 mg PO HS [facility] Last Admin: 04/25/17 21:48 Dose: 15 mg Multivitamins/Minerals/Vitamin C (Tab-A-Vit -) 1 tab PO DAILY [facility] Last Admin: 04/26/17 09:38 Dose: 1 tab Mupirocin (Bactroban 2% Ointment -) 1 applic TP TID [facility] Last Admin: 04/26/17 15:37 Dose: 1 applic Nystatin (Nystop Powder -) 1 applic TP DAILY [facility] Last Admin: 04/26/17 09:41 Dose: 1 applic Pantoprazole Sodium (Protonix -) 40 mg PO DAILY [facility] Last Admin: 04/26/17 09:38 Dose: 40 mg Potassium Chloride (Potassium Chloride Oral Liquid) 20 meq PO DAILY [facility] Last Admin: 04/26/17 09:37 Dose: 20 meq - Objective Vital Signs: Vital Signs Temperature 98.6 F 04/26/17 14:33 Pulse Rate 81 04/26/17 14:33 Respiratory Rate 21 04/26/17 14:24 Blood Pressure 108/66 04/26/17 14:33 O2 Sat by Pulse Oximetry (%) 97 04/26/17 10:42 Constitutional: Yes: No Distress HENT: Yes: Other (Trach) Cardiovascular: Yes: Pulse Irregular (NL S1S2 no MRHG) Respiratory: Yes: Mechanically Ventilated Gastrointestinal: Yes: Soft Edema: LLE: Trace, RLE: Trace Neurological: Yes: Oriented Labs: CBC, BMP 04/26/17 06:50 04/26/17 06:50 INR, PTT INR 1.37 (0.82-1.09) H 04/23/17 01:00 Assessment/Plan PAFIB Hemodynamically stable Tolerating Eliquis with no signs of GIB at this time HR are currently well controlled Continue Lipitor for secondary prevention No active cardiac issues at this time Call us prn
--- NOTE | 2017-04-26 16:16 | PN ---
Teaching Attending Note Name of Resident: Con Watts ATTENDING PHYSICIAN STATEMENT I saw and evaluated the patient. I reviewed the resident's note and discussed the case with the resident. I agree with the resident's findings and plan as documented. SUBJECTIVE: Awake,alert No acute distress Febrile past 24h WBC improved OBJECTIVE: decreased facial periorbital erythema/ swelling cor S1S2 air entry bilaterally ASSESSMENT AND PLAN: facial/periorbital cellulitis- improved chronic respiratory failure continue ceftriaxone/ vancomycin
[2017-04-26] MEDS: VANCOMYCIN 750 MG in DEXTROSE 5%-WATER - 250 ML IVPB SCH (17:55)
[2017-04-26] MEDS: DOCUSATE SODIUM 100 MG CAPSULE (FP) PO SCH (21:35)
[2017-04-26] MEDS: ATORVASTATIN CA 10 MG TABLET (FP) PO SCH (21:35)
[2017-04-26] MEDS: MIRTAZAPINE 15 MG TABLET (FP) PO SCH (21:36)
[2017-04-27] MEDS: MUPIROCIN 2% TOPICAL OINTMENT 22 GM TUBE TP SCH ×3 (06:32→23:30)
[2017-04-27 07:31] LABS: BASOPHIL 0.7 % (0-2.0); EOSINOPHIL 5.5 % (0-4.5); MCH 25.8 pg (25.7-33.7); MCHC 30.8 g/dl (32.0-36.0); MEAN CELL VOLUME 83.6 fl (80-96); MEAN PLT VOLUME 9.2 fl (7.5-11.1); PLATELET COUNT 210 K/MM3 (134-434); RDW 17.8 % (11.6-15.6); WHITE BLOOD COUNT 9.7 K/mm3 (4.0-10.0)
[2017-04-27 08:01] LABS: ALBUMIN 2.4 g/dl (3.4-5.0); ALK PHOS 72 U/L (45-117); ANION GAP 8 (8-16); BILIRUBIN,TOTAL 0.2 mg/dL (0.2-1.0); CALCIUM 8.8 mg/dL (8.5-10.1); CO2 32 mmol/L (21-32); CREATININE 0.4 mg/dL (0.55-1.02); GLUCOSE,RANDOM 81 mg/dL (74-106); SGOT/AST 16 U/L (15-37); SGPT/ALT 10 U/L (12-78); TOT PROT 6.7 g/dl (6.4-8.2)
[2017-04-27] MEDS: AMINO ACIDS/PROTEIN HYDROLYS 30 ML LIQUID.PKT PO SCH ×2 (09:02→19:00)
[2017-04-27] MEDS ORDERED: DEXTROSE 5%-WATER 100 ML IVPB ONE (09:06)
[2017-04-27] MEDS ORDERED: PT OWN MED DRAWER 7, Y5N ONE ×3 (09:06→21:54)
[2017-04-27] MEDS: LACTOBACILLUS ACIDOPHILUS 1 EACH TAB (FP) PO SCH (09:07)
[2017-04-27] MEDS: METOPROLOL TARTRATE 25 MG TABLET (FP) PO SCH ×2 (09:07→23:30)
[2017-04-27] MEDS: FERROUS SO4 325 MG TABLET (FP) PO SCH ×2 (09:07→23:30)
[2017-04-27] MEDS: PANTOPRAZOLE 40 MG TABLET (FP) PO SCH (09:07)
[2017-04-27] MEDS: LORATADINE 10 MG TABLET PO SCH (09:07)
[2017-04-27] MEDS: POTASSIUM CHLORIDE ORAL LIQUID 20 MEQ/15 ML PO SCH (09:08)
[2017-04-27] MEDS: CEFTRIAXONE 2 GM in DEXTROSE 5%-WATER 100 ML IVPB SCH (09:08)
[2017-04-27] MEDS: BACITRACIN 15 GM TUBE TOPICAL OINTMENT TP SCH (09:08)
[2017-04-27] MEDS: NYSTATIN POWDER 100,000 UNITS/GM - 15 GM TOPICAL POWDER TP SCH (09:08)
[2017-04-27] MEDS: APIXABAN 2.5 MG TABLET PO SCH ×2 (09:08→23:30)
[2017-04-27] MEDS: ASCORBIC ACID 500 MG TABLET (FP) PO SCH (09:08)
[2017-04-27] MEDS: MULTIVITAMINS (DAILY MVI) TABLET (FP) PO SCH (09:09)
--- NOTE | 2017-04-27 13:08 | PN ---
Progress Note, Physician History of Present Illness: pulmonary no distress on vent support ac mode, improving perioribital edema/erythema - Current Medication List Current Medications: Active Medications Acetaminophen (Tylenol -) 650 mg PO Q6H PRN PRN Reason: FEVER OR PAIN Last Admin: 04/25/17 20:02 Dose: 650 mg Albuterol Sulfate (Ventolin 0.083% Nebulizer Soln -) 1 amp NEB Q4H PRN PRN Reason: SHORT OF BREATH/WHEEZING Amino Acids (Prosource No Carb Liquid Pkt) 30 ml PO BID@0800,1730 [facility] Last Admin: 04/27/17 09:02 Dose: 30 ml Apixaban (Eliquis -) 2.5 mg PO BID [facility] Last Admin: 04/27/17 09:08 Dose: 2.5 mg Artificial Tears (Artificial Tears) 1 drop OU BID PRN PRN Reason: DRY EYES Last Admin: 04/26/17 09:43 Dose: 1 drop Ascorbic Acid (Vitamin C -) 500 mg PO DAILY [facility] Last Admin: 04/27/17 09:08 Dose: 500 mg Atorvastatin Calcium (Lipitor -) 10 mg PO HS [facility] Last Admin: 04/26/17 21:35 Dose: 10 mg Bacitracin (Bacitracin -) 1 applic TP BID [facility] Last Admin: 04/27/17 09:08 Dose: 1 applic Docusate Sodium (Colace -) 300 mg PO [facility] Last Admin: 04/26/17 21:35 Dose: 300 mg Ferrous Sulfate (Feosol -) 325 mg PO BID [facility] Last Admin: 04/27/17 09:07 Dose: 325 mg Ceftriaxone Sodium 2 gm/ (Dextrose) 100 mls @ 100 mls/hr IVPB DAILY [facility] Last Admin: 04/27/17 09:08 Dose: 100 mls/hr Vancomycin HCl 750 mg/ (Dextrose) 250 mls @ 166.667 mls/hr IVPB DAILY@1330 [facility] PRN Reason: Protocol Last Admin: 04/26/17 17:55 Dose: 166.667 mls/hr Lactobacillus Acidophilus (Bacid -) 1 tab PO DAILY [facility] Last Admin: 04/27/17 09:07 Dose: 1 tab Loratadine (Claritin -) 10 mg PO DAILY [facility] Last Admin: 04/27/17 09:07 Dose: 10 mg Metoprolol Tartrate (Lopressor -) 12.5 mg PO BID [facility] Last Admin: 04/27/17 09:07 Dose: 12.5 mg Mirtazapine (Remeron -) 15 mg PO HS [facility] Last Admin: 04/26/17 21:36 Dose: 15 mg Multivitamins/Minerals/Vitamin C (Tab-A-Vit -) 1 tab PO DAILY [facility] Last Admin: 04/27/17 09:09 Dose: 1 tab Mupirocin (Bactroban 2% Ointment -) 1 applic TP TID [facility] Last Admin: 04/27/17 06:32 Dose: 1 applic Nystatin (Nystop Powder -) 1 applic TP DAILY [facility] Last Admin: 04/27/17 09:08 Dose: 1 applic Pantoprazole Sodium (Protonix -) 40 mg PO DAILY [facility] Last Admin: 04/27/17 09:07 Dose: 40 mg Potassium Chloride (Potassium Chloride Oral Liquid) 20 meq PO DAILY [facility] Last Admin: 04/27/17 09:08 Dose: 20 meq - Objective Vital Signs: Vital Signs Temperature 98.1 F 04/27/17 06:00 Pulse Rate 84 04/27/17 10:20 Respiratory Rate 27 H 04/27/17 10:20 Blood Pressure 134/70 04/27/17 09:00 O2 Sat by Pulse Oximetry (%) 98 04/27/17 10:20 Constitutional: Yes: Calm, Thin Eyes: Yes: WNL HENT: Yes: WNL Neck: Yes: WNL Cardiovascular: Yes: Pulse Irregular, S1, S2 Respiratory: Yes: Rhonchi (few rhonchi) Gastrointestinal: Yes: Normal Bowel Sounds, Soft Extremities: Yes: WNL Edema: No Labs: CBC, BMP 04/27/17 06:20 04/27/17 06:20 INR, PTT INR 1.37 (0.82-1.09) H 04/23/17 01:00 Problem List - Problems (1) Anemia Code(s): D64.9 - ANEMIA, UNSPECIFIED Qualifiers: Anemia type: iron deficiency (2) Cellulitis Code(s): L03.90 - CELLULITIS, UNSPECIFIED (3) AICD (automatic cardioverter/defibrillator) present Code(s): Z95.810 - PRESENCE OF AUTOMATIC (IMPLANTABLE) CARDIAC DEFIBRILLATOR (4) COPD (chronic obstructive pulmonary disease) Code(s): J44.9 - CHRONIC OBSTRUCTIVE PULMONARY DISEASE, UNSPECIFIED Qualifiers : COPD type: unspecified COPD Qualified Code(s): J44.9 - Chronic obstructive pulmonary disease, unspecified; J44.9 - Chronic obstructive pulmonary disease, unspecified; J44.9 - Chronic obstructive pulmonary disease, unspecified; J44.9 - Chronic obstructive pulmonary disease, unspecified (5) Chronic respiratory failure Code(s): J96.10 - CHRONIC RESPIRATORY FAILURE, UNSP W HYPOXIA OR HYPERCAPNIA Qualifiers: Respiratory failure complication: hypercapnia Qualified Code(s): J96.12 - Chronic respiratory failure with hypercapnia; J96.12 - Chronic respiratory failure with hypercapnia; J96.12 - Chronic respiratory failure with hypercapnia (6) HTN (hypertension) Code(s): I10 - ESSENTIAL (PRIMARY) HYPERTENSION (7) Hyperlipemia Code(s): E78.5 - HYPERLIPIDEMIA, UNSPECIFIED (8) Respirator dependence Code(s): Z99.11 - DEPENDENCE ON RESPIRATOR [VENTILATOR] STATUS Assessment/Plan IMP CHRONIC RESPIRATORY FAILURE COPD AFIB IMPETIGO BILATERAL FACIAL CELLULITIS ASHD HLD HTN PLAN VENT SUPPORT INHALED BRONCHODILATORS CONTINUE ANTIBIOTICS PER JESSICA CABRERA Problem List - Problems (1) Anemia Code(s): D64.9 - ANEMIA, UNSPECIFIED Qualifiers: Anemia type: iron deficiency (2) Cellulitis Code(s): L03.90 - CELLULITIS, UNSPECIFIED (3) AICD (automatic cardioverter/defibrillator) present Code(s): Z95.810 - PRESENCE OF AUTOMATIC (IMPLANTABLE) CARDIAC DEFIBRILLATOR (4) COPD (chronic obstructive pulmonary disease) Code(s): J44.9 - CHRONIC OBSTRUCTIVE PULMONARY DISEASE, UNSPECIFIED Qualifiers : COPD type: unspecified COPD Qualified Code(s): J44.9 - Chronic obstructive pulmonary disease, unspecified; J44.9 - Chronic obstructive pulmonary disease, unspecified; J44.9 - Chronic obstructive pulmonary disease, unspecified; J44.9 - Chronic obstructive pulmonary disease, unspecified (5) Chronic respiratory failure Code(s): J96.10 - CHRONIC RESPIRATORY FAILURE, UNSP W HYPOXIA OR HYPERCAPNIA Qualifiers: Respiratory failure complication: hypercapnia Qualified Code(s): J96.12 - Chronic respiratory failure with hypercapnia; J96.12 - Chronic respiratory failure with hypercapnia; J96.12 - Chronic respiratory failure with hypercapnia (6) HTN (hypertension) Code(s): I10 - ESSENTIAL (PRIMARY) HYPERTENSION (7) Hyperlipemia Code(s): E78.5 - HYPERLIPIDEMIA, UNSPECIFIED (8) Respirator dependence Code(s): Z99.11 - DEPENDENCE ON RESPIRATOR [VENTILATOR] STATUS
--- NOTE | 2017-04-27 13:58 | PN ---
Progress Note, Physician Chief Complaint: leslie-orbital cellulitis vs Impetigo History of Present Illness: NAD, no pain, rash had characteristic metzger crusty appearance seen by ID -on IV abx, vanco restarted, also on Ceftriaxone - Current Medication List Current Medications: Active Medications Acetaminophen (Tylenol -) 650 mg PO Q6H PRN PRN Reason: FEVER OR PAIN Last Admin: 04/25/17 20:02 Dose: 650 mg Albuterol Sulfate (Ventolin 0.083% Nebulizer Soln -) 1 amp NEB Q4H PRN PRN Reason: SHORT OF BREATH/WHEEZING Amino Acids (Prosource No Carb Liquid Pkt) 30 ml PO BID@0800,1730 [facility] Last Admin: 04/27/17 09:02 Dose: 30 ml Apixaban (Eliquis -) 2.5 mg PO BID [facility] Last Admin: 04/27/17 09:08 Dose: 2.5 mg Artificial Tears (Artificial Tears) 1 drop OU BID PRN PRN Reason: DRY EYES Last Admin: 04/26/17 09:43 Dose: 1 drop Ascorbic Acid (Vitamin C -) 500 mg PO DAILY [facility] Last Admin: 04/27/17 09:08 Dose: 500 mg Atorvastatin Calcium (Lipitor -) 10 mg PO HS [facility] Last Admin: 04/26/17 21:35 Dose: 10 mg Bacitracin (Bacitracin -) 1 applic TP BID [facility] Last Admin: 04/27/17 09:08 Dose: 1 applic Docusate Sodium (Colace -) 300 mg PO HS [facility] Last Admin: 04/26/17 21:35 Dose: 300 mg Ferrous Sulfate (Feosol -) 325 mg PO BID [facility] Last Admin: 04/27/17 09:07 Dose: 325 mg Ceftriaxone Sodium 2 gm/ (Dextrose) 100 mls @ 100 mls/hr IVPB DAILY [facility] Last Admin: 04/27/17 09:08 Dose: 100 mls/hr Vancomycin HCl 750 mg/ (Dextrose) 250 mls @ 166.667 mls/hr IVPB DAILY@1330 [facility] PRN Reason: Protocol Last Admin: 04/26/17 17:55 Dose: 166.667 mls/hr Lactobacillus Acidophilus (Bacid -) 1 tab PO DAILY [facility] Last Admin: 04/27/17 09:07 Dose: 1 tab Loratadine (Claritin -) 10 mg PO DAILY [facility] Last Admin: 04/27/17 09:07 Dose: 10 mg Metoprolol Tartrate (Lopressor -) 12.5 mg PO BID [facility] Last Admin: 04/27/17 09:07 Dose: 12.5 mg Mirtazapine (Remeron -) 15 mg PO HS [facility] Last Admin: 04/26/17 21:36 Dose: 15 mg Multivitamins/Minerals/Vitamin C (Tab-A-Vit -) 1 tab PO DAILY [facility] Last Admin: 04/27/17 09:09 Dose: 1 tab Mupirocin (Bactroban 2% Ointment -) 1 applic TP TID [facility] Last Admin: 04/27/17 06:32 Dose: 1 applic Nystatin (Nystop Powder -) 1 applic TP DAILY [facility] Last Admin: 04/27/17 09:08 Dose: 1 applic Pantoprazole Sodium (Protonix -) 40 mg PO DAILY [facility] Last Admin: 04/27/17 09:07 Dose: 40 mg Potassium Chloride (Potassium Chloride Oral Liquid) 20 meq PO DAILY [facility] Last Admin: 04/27/17 09:08 Dose: 20 meq - Objective Vital Signs: Vital Signs Temperature 98.1 F 04/27/17 06:00 Pulse Rate 84 04/27/17 10:20 Respiratory Rate 27 H 04/27/17 10:20 Blood Pressure 134/70 04/27/17 09:00 O2 Sat by Pulse Oximetry (%) 98 04/27/17 10:20 Constitutional: Yes: Well Nourished, No Distress, Calm Eyes: Yes: Other (BL eye purulent discharge) Cardiovascular: Yes: Pulse Irregular Respiratory: Yes: Regular Musculoskeletal: Yes: WNL Extremities: Yes: WNL Edema: No Peripheral Pulses WNL: Yes Integumentary: Yes: Rash (facial) Neurological: Yes: Alert, Oriented Psychiatric: Yes: Alert, Oriented Labs: CBC, BMP 04/27/17 06:20 04/27/17 06:20 INR, PTT INR 1.37 (0.82-1.09) H 04/23/17 01:00 Problem List - Problems (1) Fever Assessment/Plan: -secondary to infectious process -blood culture -tylenol for fever over 100.0 F -repeat labs today and in AM Code(s): R50.9 - FEVER, UNSPECIFIED (2) Sinus tachycardia Assessment/Plan: -secondary to infectious process -blood culture -tylenol for fever over 100.0 F -on metoprolol 25 mg po BID, hold for SBP below 100 -seen by cardiology -no further cardiac workup recommended Code(s): R00.0 - TACHYCARDIA, UNSPECIFIED (3) Functional quadriplegia Code(s): R53.2 - FUNCTIONAL QUADRIPLEGIA (4) Leukocytosis Assessment/Plan: -WBC improved-normalized -ID on board -IV abx -BC pending- preliminary negative -Sputum culture negative -wound culture pending -repeat labs today and in AM Code(s): D72.829 - ELEVATED WHITE BLOOD CELL COUNT, UNSPECIFIED (5) Facial rash Assessment/Plan: -cellulitis vs Non bullous impetigo -seen by ID -IV abx- Vanco on hold, on Ceftriaxone -wound Culture pending -WBC increased -febrile overnight and low grade temp now -mupirocin ointment on the rash -awaiting dermatology consult Code(s): R21 - RASH AND OTHER NONSPECIFIC SKIN ERUPTION (6) Chronic respiratory failure Assessment/Plan: -on mech vent -seen by pulmonary Code(s): J96.10 - CHRONIC RESPIRATORY FAILURE, UNSP W HYPOXIA OR HYPERCAPNIA Qualifiers: Respiratory failure complication: hypercapnia Qualified Code(s): J96.12 - Chronic respiratory failure with hypercapnia; J96.12 - Chronic respiratory failure with hypercapnia; J96.12 - Chronic respiratory failure with hypercapnia Assessment/Plan see problem list
--- NOTE | 2017-04-27 14:55 | PN ---
Physical Exam: Consulting Specialty: Infectious Disease SUBJECTIVE: Patient resting comfortably in bed looking at television. No acute events overnight. Pt has been afebrile for the past 24hrs. WBC decreased to 9.7. HPI limited due to tracheostomy and intubation. Pt is able to open eyes on command without problem. OBJECTIVE: Vital Signs Period Temp Pulse Resp BP Sys/Vera Pulse Ox Last 24 Hr 97.9 F-99.4 F 73-84 14-27 107-145/48-74 97-98 GENERAL: Resting comfortably at bedside watching bedside television HEENT: Tracheostomy intact. Moist mucosa. Erythema present, but diminished from previous days. Trace facial edema. EOMI, PERRL, no purulent discharge from eyes. LUNGS: CTA bilaterally with transmitted ventilator sounds noted. A/C ventilated. HEART: RRR, no murmurs appreciated. S1 and S2 normal EXTREMITIES: No edema. No rashes or lesions NEURO: Follows commands. Alert Laboratory Results - last 24 hr 04/27/17 04/27/17 06:20 06:20 WBC 9.7 RBC 4.01 Hgb 10.3 L Hct 33.5 MCV 83.6 MCH 25.8 MCHC 30.8 L RDW 17.8 H Plt Count 210 MPV 9.2 Neutrophils % 77.0 Lymphocytes % 9.5 Monocytes % 7.3 Eosinophils % 5.5 H Basophils % 0.7 Sodium 142 Potassium 4.1 Chloride 102 Carbon Dioxide 32 Anion Gap 8 BUN 13 Creatinine 0.4 L Creat Clearance w eGFR > 60 Random Glucose 81 Calcium 8.8 Total Bilirubin 0.2 D AST 16 D ALT 10 L Alkaline Phosphatase 72 Total Protein 6.7 Albumin 2.4 L Active Medications Generic Name Dose Route Start Last Admin Trade Name Freq PRN Reason Stop Dose Admin Acetaminophen 650 mg 04/23/17 07:46 04/25/17 20:02 Tylenol - PO 650 mg Q6H PRN Administration FEVER OR PAIN Albuterol Sulfate 1 amp 04/23/17 07:46 Ventolin 0.083% Nebulizer Soln - NEB Q4H PRN SHORT OF BREATH/WHEEZING Amino Acids 30 ml 04/24/17 17:30 04/27/17 09:02 Prosource No Carb Liquid Pkt PO 30 ml BID@0800,1730 [facility] Administration Apixaban 2.5 mg 04/23/17 10:00 04/27/17 09:08 Eliquis - PO 2.5 mg BID [facility] Administration Artificial Tears 1 drop 04/23/17 07:46 04/26/17 09:43 Artificial Tears OU 1 drop BID PRN Administration DRY EYES Ascorbic Acid 500 mg 04/23/17 10:00 04/27/17 09:08 Vitamin C - PO 500 mg DAILY [facility] Administration Atorvastatin Calcium 10 mg 04/23/17 22:00 04/26/17 21:35 Lipitor - PO 10 mg HS [facility] Administration Bacitracin 1 applic 04/23/17 12:00 04/27/17 09:08 Bacitracin - TP 1 applic BID [facility] Administration Docusate Sodium 300 mg 04/23/17 22:00 04/26/17 21:35 Colace - PO 300 mg HS [facility] Administration Ferrous Sulfate 325 mg 04/23/17 10:00 04/27/17 09:07 Feosol - PO 325 mg BID [facility] Administration Ceftriaxone Sodium 2 gm/ 100 mls @ 100 mls/hr 04/23/17 12:45 04/27/17 09:08 Dextrose IVPB 100 mls/hr DAILY [facility] Administration Vancomycin HCl 750 mg/ 250 mls @ 166.667 mls/hr 04/26/17 13:30 04/26/17 17:55 Dextrose IVPB 166.667 mls/hr DAILY@1330 [facility] Administration Protocol Lactobacillus Acidophilus 1 tab 04/23/17 10:00 04/27/17 09:07 Bacid - PO 1 tab DAILY [facility] Administration Loratadine 10 mg 04/23/17 10:00 04/27/17 09:07 Claritin - PO 10 mg DAILY [facility] Administration Metoprolol Tartrate 12.5 mg 04/26/17 14:45 04/27/17 09:07 Lopressor - PO 12.5 mg BID [facility] Administration Mirtazapine 15 mg 04/23/17 22:00 04/26/17 21:36 Remeron - PO 15 mg HS [facility] Administration Multivitamins/Minerals/Vitamin C 1 tab 04/23/17 10:00 04/27/17 09:09 Tab-A-Vit - PO 1 tab DAILY [facility] Administration Mupirocin 1 applic 04/23/17 15:00 04/27/17 06:32 Bactroban 2% Ointment - TP 1 applic TID [facility] Administration Nystatin 1 applic 04/23/17 10:00 04/27/17 09:08 Nystop Powder - TP 1 applic DAILY [facility] Administration Pantoprazole Sodium 40 mg 04/23/17 10:00 04/27/17 09:07 Protonix - PO 40 mg DAILY [facility] Administration Potassium Chloride 20 meq 04/23/17 10:00 04/27/17 09:08 Potassium Chloride Oral Liquid PO 20 meq DAILY [facility] Administration ASSESSMENT: Pre-septal cellulitis; remitting End-stage lung disease PLAN: Continue Vancomycin 750mg IV qDaily Continue Rocephin 2gm IV qDaily Case discussed with Dr. Mingo Watts, DO - Internal Medicine PGY-1 Visit type - Emergency Visit Emergency Visit: No - New Patient This patient is new to me today: No - Critical Care Critical Care patient: No
--- NOTE | 2017-04-27 14:57 | PN ---
Teaching Attending Note Name of Resident: Con Watts ATTENDING PHYSICIAN STATEMENT I saw and evaluated the patient. I reviewed the resident's note and discussed the case with the resident. I agree with the resident's findings and plan as documented. SUBJECTIVE: More lethargic today Temps, WBC improved BC (-) OBJECTIVE: Decreased erythema/ swelling, face Cor S1S2 Air entry bilaterally ASSESSMENT AND PLAN: Facial cellulitis-improved Chronic respiratory failure Continue vancomycin/ ceftriaxone
[2017-04-27] MEDS: VANCOMYCIN 750 MG in DEXTROSE 5%-WATER - 250 ML IVPB SCH (17:02)
--- NOTE | 2017-04-27 18:50 | CONSULT ---
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: CVA, Dementia, Parkinson's Cardio/Vascular: Yes: AFIB (Paroxysmal), CHF, HTN, Hyperlipdemia, Other (h/o cardiac arrest s/p AICD - Single lead) Pulmonary: Yes: COPD, Other (respiratory failure) Gastrointestinal: Yes: GERD - Past Surgical History Past Surgical History: Yes: AICD ([employer], implanted following cardiac arrest) , Cataract Removal (2011) - Alcohol/Substance Use Hx Alcohol Use: No - Smoking History Smoking history: Unknown if ever smoked Have you smoked in the past 12 months: No Aproximately how many cigarettes per day: 0 - Social History Usual Living Arrangement: Longterm History of Recent Travel: No Home Medications - Allergies Allergies/Adverse Reactions: Allergies Allergy/AdvReac Type Severity Reaction Status Date / Time doxycycline Allergy Intermediate Verified 04/22/17 23:48 CLAMS Allergy Intermediate Hives Uncoded 04/22/17 23:48 - Home Medications Home Medications: Ambulatory Orders Ascorbic Acid [Vitamin C -] 500 mg PO DAILY 10/19/16 Docusate Sodium 300 mg PO HS 10/19/16 Aa/Hydrolyzed Collagen, Whey [Lps 15-30 Liquid] 30 ml PO BID 01/08/17 Acetaminophen [Tylenol .Regular Strength -] 650 mg PO Q6H PRN #0 tablet Albuterol 0.083% Nebulizer Yady [Ventolin 0.083% Nebulizer Soln -] 1 amp NEB Q4H PRN #180 amp 03/20/17 Apixaban [Eliquis -] 2.5 mg PO BID tablet 03/20/17 Atorvastatin Ca [Lipitor] 10 mg PO HS #30 tablet 03/20/17 Ferrous Sulfate 325 mg PO BID #60 tab 03/20/17 Hypromellose 0.5% Opth Soln [Artificial Tears] 1 drop OU BID #1 bottle 03/20/17 Lactobacillus Acidophilus [Bacid -] 1 tab PO DAILY #30 tab 03/20/17 Loratadine [Claritin -] 10 mg PO DAILY #30 tablet 03/20/17 Mirtazapine [Remeron -] 15 mg PO HS #30 tablet 03/20/17 Multivitamins [Multivit (RH Formulary)] 1 tab PO DAILY #30 tab 03/20/17 Nystatin Powder [Nystop Powder -] 1 applic TP DAILY #1 applic 03/20/17 Pantoprazole Sodium [Protonix -] 40 mg PO DAILY #30 tab 03/20/17 Polyvinyl Alcohol [Artificial Tears] 1 drop OU BID PRN #1 bottle 03/20/17 Potassium Chloride Oral Soln [KCl Oral Solution] 20 meq PO DAILY #30 cup Physical Exam Vital Signs: Vital Signs Temperature 97.9 F 04/27/17 14:30 Pulse Rate 89 04/27/17 16:00 Respiratory Rate 18 04/27/17 17:50 Blood Pressure 103/67 04/27/17 16:00 O2 Sat by Pulse Oximetry (%) 98 04/27/17 10:20 Labs: CBC, BMP 04/27/17 06:20 04/27/17 06:20 Assessment/Plan 82 yr old woman admitted for facial swelling. On exam the swelling has subsided but the facial skin is edematous and erythematous with a sharp demarcation down from hairline ,preauricularly and under chin . There are honey colored crusting on nasolabial folds and cheeks consistent with impetiginization. Dx Probable contact dermatitis that became infected. REsolving dermatitis on IV antibiotics .Use gentle cleanser BID. Will add HC 2.5 oint QD and BACtroban oint QD and D/c bacitracin. Discussed with patients nurse.
[2017-04-27] MEDS ORDERED: HYDROCORTISONE 2.5% LOTION - 1 BOTTLE TP ONE (18:52)
[2017-04-27] MEDS: ACETAMINOPHEN 325 MG TABLET (FP) PO PRN (19:02)
[2017-04-27] MEDS: ATORVASTATIN CA 10 MG TABLET (FP) PO SCH (23:30)
[2017-04-27] MEDS: MIRTAZAPINE 15 MG TABLET (FP) PO SCH (23:30)
[2017-04-27] MEDS: DOCUSATE SODIUM 100 MG CAPSULE (FP) PO SCH (23:30)
[2017-04-28] MEDS ORDERED: SODIUM CHLORIDE 250 ML IV ONE ×2 (01:00→22:00)
[2017-04-28] MEDS ORDERED: SODIUM CHLORIDE 1,000 ML IV ONE (01:15)
[2017-04-28] MEDS: MUPIROCIN 2% TOPICAL OINTMENT 22 GM TUBE TP SCH ×3 (06:34→21:48)
[2017-04-28] MEDS ORDERED: PT OWN MED DRAWER 7, Y5N ONE (06:50)
[2017-04-28] MEDS: AMINO ACIDS/PROTEIN HYDROLYS 30 ML LIQUID.PKT PO SCH ×2 (09:00→17:57)
[2017-04-28] MEDS ORDERED: DEXTROSE 5%-WATER 100 ML IVPB ONE (09:18)
--- NOTE | 2017-04-28 10:53 | PN ---
Progress Note, Physician Chief Complaint: ASLEEP TRACH INTACT - Current Medication List Current Medications: Active Medications Acetaminophen (Tylenol -) 650 mg PO Q6H PRN PRN Reason: FEVER OR PAIN Last Admin: 04/27/17 19:02 Dose: 650 mg Albuterol Sulfate (Ventolin 0.083% Nebulizer Soln -) 1 amp NEB Q4H PRN PRN Reason: SHORT OF BREATH/WHEEZING Amino Acids (Prosource No Carb Liquid Pkt) 30 ml PO BID@0800,1730 [facility] Last Admin: 04/28/17 09:00 Dose: Not Given Apixaban (Eliquis -) 2.5 mg PO BID [facility] Last Admin: 04/27/17 23:30 Dose: 2.5 mg Artificial Tears (Artificial Tears) 1 drop OU BID PRN PRN Reason: DRY EYES Last Admin: 04/26/17 09:43 Dose: 1 drop Ascorbic Acid (Vitamin C -) 500 mg PO DAILY [facility] Last Admin: 04/27/17 09:08 Dose: 500 mg Atorvastatin Calcium (Lipitor -) 10 mg PO HS [facility] Last Admin: 04/27/17 23:30 Dose: 10 mg Docusate Sodium (Colace -) 300 mg PO [facility] Last Admin: 04/27/17 23:30 Dose: Not Given Ferrous Sulfate (Feosol -) 325 mg PO BID [facility] Last Admin: 04/27/17 23:30 Dose: 325 mg Ceftriaxone Sodium 2 gm/ (Dextrose) 100 mls @ 100 mls/hr IVPB DAILY [facility] Last Admin: 04/27/17 09:08 Dose: 100 mls/hr Vancomycin HCl 750 mg/ (Dextrose) 250 mls @ 166.667 mls/hr IVPB DAILY@1330 [facility] PRN Reason: Protocol Last Admin: 04/27/17 17:02 Dose: 166.667 mls/hr Sodium Chloride (Normal Saline -) 1,000 mls @ 75 mls/hr IV ASDIR ONE Stop: 04/28/17 14:34 Last Admin: 04/28/17 01:00 Dose: 75 mls/hr Lactobacillus Acidophilus (Bacid -) 1 tab PO DAILY [facility] Last Admin: 04/27/17 09:07 Dose: 1 tab Loratadine (Claritin -) 10 mg PO DAILY [facility] Last Admin: 04/27/17 09:07 Dose: 10 mg Metoprolol Tartrate (Lopressor -) 12.5 mg PO BID [facility] Last Admin: 04/27/17 23:30 Dose: Not Given Mirtazapine (Remeron -) 15 mg PO HS [facility] Last Admin: 04/27/17 23:30 Dose: 15 mg Multivitamins/Minerals/Vitamin C (Tab-A-Vit -) 1 tab PO DAILY [facility] Last Admin: 04/27/17 09:09 Dose: 1 tab Mupirocin (Bactroban 2% Ointment -) 1 applic TP TID [facility] Last Admin: 04/28/17 06:34 Dose: 1 applic Nystatin (Nystop Powder -) 1 applic TP DAILY [facility] Last Admin: 04/27/17 09:08 Dose: 1 applic Pantoprazole Sodium (Protonix -) 40 mg PO DAILY [facility] Last Admin: 04/27/17 09:07 Dose: 40 mg Potassium Chloride (Potassium Chloride Oral Liquid) 20 meq PO DAILY [facility] Last Admin: 04/27/17 09:08 Dose: 20 meq - Objective Vital Signs: Vital Signs Temperature 99.5 F 04/28/17 06:08 Pulse Rate 83 04/28/17 06:00 Respiratory Rate 15 04/28/17 07:00 Blood Pressure 103/56 04/28/17 06:00 O2 Sat by Pulse Oximetry (%) 98 04/28/17 00:31 Constitutional: Yes: Other Eyes: Yes: WNL HENT: Yes: WNL Neck: Yes: WNL Cardiovascular: Yes: Other Respiratory: Yes: Mechanically Ventilated Gastrointestinal: Yes: WNL Genitourinary: Yes: Incontinence Musculoskeletal: Yes: Muscle Weakness Extremities: Yes: Other Edema: No Peripheral Pulses WNL: Yes Integumentary: Yes: WNL Wound/Incision: Yes: Clean/Dry Neurological: Yes: Pre-Existing Deficit ...Motor Strength: LLE, RLE Psychiatric: Yes: Other Labs: CBC, BMP 04/27/17 06:20 04/27/17 06:20 INR, PTT INR 1.37 (0.82-1.09) H 04/23/17 01:00 Problem List - Problems (1) Anemia Code(s): D64.9 - ANEMIA, UNSPECIFIED Qualifiers: Anemia type: iron deficiency (2) Cellulitis Code(s): L03.90 - CELLULITIS, UNSPECIFIED (3) Renal insufficiency, mild Code(s): N28.9 - DISORDER OF KIDNEY AND URETER, UNSPECIFIED (4) AICD (automatic cardioverter/defibrillator) present Code(s): Z95.810 - PRESENCE OF AUTOMATIC (IMPLANTABLE) CARDIAC DEFIBRILLATOR (5) COPD (chronic obstructive pulmonary disease) Code(s): J44.9 - CHRONIC OBSTRUCTIVE PULMONARY DISEASE, UNSPECIFIED Qualifiers : COPD type: unspecified COPD Qualified Code(s): J44.9 - Chronic obstructive pulmonary disease, unspecified; J44.9 - Chronic obstructive pulmonary disease, unspecified; J44.9 - Chronic obstructive pulmonary disease, unspecified; J44.9 - Chronic obstructive pulmonary disease, unspecified (6) Chronic respiratory failure Code(s): J96.10 - CHRONIC RESPIRATORY FAILURE, UNSP W HYPOXIA OR HYPERCAPNIA Qualifiers: Respiratory failure complication: hypercapnia Qualified Code(s): J96.12 - Chronic respiratory failure with hypercapnia; J96.12 - Chronic respiratory failure with hypercapnia; J96.12 - Chronic respiratory failure with hypercapnia (7) Respirator dependence Code(s): Z99.11 - DEPENDENCE ON RESPIRATOR [VENTILATOR] STATUS Assessment/Plan IV ABX PULMONARYE AP CHECK CULTURES IVF HOLD BP MEDS FOR LOW SBP
[2017-04-28] MEDS: METOPROLOL TARTRATE 25 MG TABLET (FP) PO SCH ×2 (11:00→21:47)
[2017-04-28] MEDS: CEFTRIAXONE 2 GM in DEXTROSE 5%-WATER 100 ML IVPB SCH (11:04)
[2017-04-28] MEDS: NYSTATIN POWDER 100,000 UNITS/GM - 15 GM TOPICAL POWDER TP SCH (11:04)
[2017-04-28] MEDS: POTASSIUM CHLORIDE ORAL LIQUID 20 MEQ/15 ML PO SCH (11:12)
[2017-04-28] MEDS: MULTIVITAMINS (DAILY MVI) TABLET (FP) PO SCH (11:12)
[2017-04-28] MEDS: FERROUS SO4 325 MG TABLET (FP) PO SCH ×2 (11:12→21:45)
[2017-04-28] MEDS: LACTOBACILLUS ACIDOPHILUS 1 EACH TAB (FP) PO SCH (11:12)
[2017-04-28] MEDS: PANTOPRAZOLE 40 MG TABLET (FP) PO SCH (11:12)
[2017-04-28] MEDS: APIXABAN 2.5 MG TABLET PO SCH ×2 (11:12→21:46)
[2017-04-28] MEDS: LORATADINE 10 MG TABLET PO SCH (11:12)
[2017-04-28] MEDS: ASCORBIC ACID 500 MG TABLET (FP) PO SCH (11:13)
--- NOTE | 2017-04-28 11:30 | PN ---
Progress Note, Physician History of Present Illness: PULMONARY AWAKE,NAD ON VENT SUPPORT AC MODE. DALILA-ORBITAL EDEMA/ERYTHEMIA IMPROVING - Current Medication List Current Medications: Active Medications Acetaminophen (Tylenol -) 650 mg PO Q6H PRN PRN Reason: FEVER OR PAIN Last Admin: 04/27/17 19:02 Dose: 650 mg Albuterol Sulfate (Ventolin 0.083% Nebulizer Soln -) 1 amp NEB Q4H PRN PRN Reason: SHORT OF BREATH/WHEEZING Amino Acids (Prosource No Carb Liquid Pkt) 30 ml PO BID@0800,1730 [facility] Last Admin: 04/28/17 09:00 Dose: Not Given Apixaban (Eliquis -) 2.5 mg PO BID [facility] Last Admin: 04/28/17 11:12 Dose: Not Given Artificial Tears (Artificial Tears) 1 drop OU BID PRN PRN Reason: DRY EYES Last Admin: 04/26/17 09:43 Dose: 1 drop Ascorbic Acid (Vitamin C -) 500 mg PO DAILY [facility] Last Admin: 04/28/17 11:13 Dose: Not Given Atorvastatin Calcium (Lipitor -) 10 mg PO HS [facility] Last Admin: 04/27/17 23:30 Dose: 10 mg Docusate Sodium (Colace -) 300 mg PO HS [facility] Last Admin: 04/27/17 23:30 Dose: Not Given Ferrous Sulfate (Feosol -) 325 mg PO BID [facility] Last Admin: 04/28/17 11:12 Dose: Not Given Ceftriaxone Sodium 2 gm/ (Dextrose) 100 mls @ 100 mls/hr IVPB DAILY [facility] Last Admin: 04/28/17 11:04 Dose: 100 mls/hr Vancomycin HCl 750 mg/ (Dextrose) 250 mls @ 166.667 mls/hr IVPB DAILY@1330 [facility] PRN Reason: Protocol Last Admin: 04/27/17 17:02 Dose: 166.667 mls/hr Sodium Chloride (Normal Saline -) 1,000 mls @ 75 mls/hr IV ASDIR ONE Stop: 04/28/17 14:34 Last Admin: 04/28/17 01:00 Dose: 75 mls/hr Lactobacillus Acidophilus (Bacid -) 1 tab PO DAILY [facility] Last Admin: 04/28/17 11:12 Dose: Not Given Loratadine (Claritin -) 10 mg PO DAILY [facility] Last Admin: 04/28/17 11:12 Dose: Not Given Metoprolol Tartrate (Lopressor -) 12.5 mg PO BID [facility] Mirtazapine (Remeron -) 15 mg PO HS [facility] Last Admin: 04/27/17 23:30 Dose: 15 mg Multivitamins/Minerals/Vitamin C (Tab-A-Vit -) 1 tab PO DAILY [facility] Last Admin: 04/28/17 11:12 Dose: Not Given Mupirocin (Bactroban 2% Ointment -) 1 applic TP TID [facility] Last Admin: 04/28/17 06:34 Dose: 1 applic Nystatin (Nystop Powder -) 1 applic TP DAILY [facility] Last Admin: 04/28/17 11:04 Dose: 1 applic Pantoprazole Sodium (Protonix -) 40 mg PO DAILY [facility] Last Admin: 04/28/17 11:12 Dose: Not Given Potassium Chloride (Potassium Chloride Oral Liquid) 20 meq PO DAILY [facility] Last Admin: 04/28/17 11:12 Dose: Not Given - Objective Vital Signs: Vital Signs Temperature 98.9 F 04/28/17 10:53 Pulse Rate 88 04/28/17 10:53 Respiratory Rate 14 04/28/17 10:53 Blood Pressure 102/58 04/28/17 10:53 O2 Sat by Pulse Oximetry (%) 92 L 04/28/17 11:15 Constitutional: Yes: Well Nourished, Calm Eyes: Yes: WNL HENT: Yes: WNL Neck: Yes: Supple (TRACH) Cardiovascular: Yes: Pulse Irregular, S1, S2 Respiratory: Yes: Rhonchi (FEW RHONCHI) Gastrointestinal: Yes: Normal Bowel Sounds, Soft Extremities: Yes: WNL Edema: No Labs: CBC, BMP 04/27/17 06:20 04/27/17 06:20 INR, PTT INR 1.37 (0.82-1.09) H 04/23/17 01:00 Problem List - Problems (1) Anemia Code(s): D64.9 - ANEMIA, UNSPECIFIED Qualifiers: Anemia type: iron deficiency (2) Cellulitis Code(s): L03.90 - CELLULITIS, UNSPECIFIED (3) AICD (automatic cardioverter/defibrillator) present Code(s): Z95.810 - PRESENCE OF AUTOMATIC (IMPLANTABLE) CARDIAC DEFIBRILLATOR (4) COPD (chronic obstructive pulmonary disease) Code(s): J44.9 - CHRONIC OBSTRUCTIVE PULMONARY DISEASE, UNSPECIFIED Qualifiers : COPD type: unspecified COPD Qualified Code(s): J44.9 - Chronic obstructive pulmonary disease, unspecified; J44.9 - Chronic obstructive pulmonary disease, unspecified; J44.9 - Chronic obstructive pulmonary disease, unspecified; J44.9 - Chronic obstructive pulmonary disease, unspecified (5) Chronic respiratory failure Code(s): J96.10 - CHRONIC RESPIRATORY FAILURE, UNSP W HYPOXIA OR HYPERCAPNIA Qualifiers: Respiratory failure complication: hypercapnia Qualified Code(s): J96.12 - Chronic respiratory failure with hypercapnia; J96.12 - Chronic respiratory failure with hypercapnia; J96.12 - Chronic respiratory failure with hypercapnia (6) HTN (hypertension) Code(s): I10 - ESSENTIAL (PRIMARY) HYPERTENSION (7) Hyperlipemia Code(s): E78.5 - HYPERLIPIDEMIA, UNSPECIFIED (8) Respirator dependence Code(s): Z99.11 - DEPENDENCE ON RESPIRATOR [VENTILATOR] STATUS Assessment/Plan IMP CHRONIC RESPIRATORY FAILURE COPD AFIB IMPETIGO BILATERAL FACIAL CELLULITIS ASHD HLD HTN PLAN VENT SUPPORT INHALED BRONCHODILATORS CONTINUE ANTIBIOTICS PER ID CHEST X-RAY DR CABREAR Problem List - Problems (1) Anemia Code(s): D64.9 - ANEMIA, UNSPECIFIED Qualifiers: Anemia type: iron deficiency (2) Cellulitis Code(s): L03.90 - CELLULITIS, UNSPECIFIED (3) AICD (automatic cardioverter/defibrillator) present Code(s): Z95.810 - PRESENCE OF AUTOMATIC (IMPLANTABLE) CARDIAC DEFIBRILLATOR (4) COPD (chronic obstructive pulmonary disease) Code(s): J44.9 - CHRONIC OBSTRUCTIVE PULMONARY DISEASE, UNSPECIFIED Qualifiers : COPD type: unspecified COPD Qualified Code(s): J44.9 - Chronic obstructive pulmonary disease, unspecified; J44.9 - Chronic obstructive pulmonary disease, unspecified; J44.9 - Chronic obstructive pulmonary disease, unspecified; J44.9 - Chronic obstructive pulmonary disease, unspecified (5) Chronic respiratory failure Code(s): J96.10 - CHRONIC RESPIRATORY FAILURE, UNSP W HYPOXIA OR HYPERCAPNIA Qualifiers: Respiratory failure complication: hypercapnia Qualified Code(s): J96.12 - Chronic respiratory failure with hypercapnia; J96.12 - Chronic respiratory failure with hypercapnia; J96.12 - Chronic respiratory failure with hypercapnia (6) HTN (hypertension) Code(s): I10 - ESSENTIAL (PRIMARY) HYPERTENSION (7) Hyperlipemia Code(s): E78.5 - HYPERLIPIDEMIA, UNSPECIFIED (8) Respirator dependence Code(s): Z99.11 - DEPENDENCE ON RESPIRATOR [VENTILATOR] STATUS
--- NOTE | 2017-04-28 15:44 | PN ---
Progress Note (short form) - Note Progress Note: fever yesterday evening now resting comfortably Vital Signs Period Temp Pulse Resp BP Sys/Vera Pulse Ox Last 24 Hr 97.7 F-103.3 F 72-89 14-23 71-103/47-67 92-99 trach to vent cor-rrr lungs decreased bs at bases abd soft,nt ext no edema CBC, BMP 04/27/17 06:20 04/27/17 06:20 Microbiology 04/28/17 00:55 Sputum - Endotrachea Suction/Ventilator Gram Stain - Final 04/28/17 01:30 Stool Clostridium difficile Antigen (JUNO) - Final 04/28/17 01:30 Stool Clostridium difficile Toxin Assay - Final 04/25/17 21:00 Face Gram Stain - Final 04/25/17 21:00 Face Wound Culture - Preliminary Gram Negative Francis 04/23/17 01:00 Blood - Peripheral Venous Blood Culture - Final NO GROWTH AFTER 5 DAYS INCUBATION 04/23/17 00:50 Blood - Peripheral Venous Blood Culture - Final NO GROWTH AFTER 5 DAYS INCUBATION 04/23/17 14:45 Sputum - Endotrachea Suction/Ventilator Gram Stain - Final 04/23/17 14:45 Sputum - Endotrachea Suction/Ventilator Sputum Culture - Final NORMAL RESPIRATORY CHARLEY cxray unchanged a/p continue vanco/rocephin for facial cellulitis repeat blood cultures for fever sent
[2017-04-28] MEDS: VANCOMYCIN 750 MG in DEXTROSE 5%-WATER - 250 ML IVPB SCH (16:20)
[2017-04-28] MEDS: ATORVASTATIN CA 10 MG TABLET (FP) PO SCH (21:45)
[2017-04-28] MEDS: MIRTAZAPINE 15 MG TABLET (FP) PO SCH (21:45)
[2017-04-28] MEDS: DOCUSATE SODIUM 100 MG CAPSULE (FP) PO SCH (21:45)
[2017-04-28] MEDS ORDERED: SODIUM CHLORIDE 1,000 ML IV SCH (22:00)
[2017-04-28] MEDS: SODIUM CHLORIDE 1,000 ML IV SCH (23:00)
[2017-04-29] MEDS: MUPIROCIN 2% TOPICAL OINTMENT 22 GM TUBE TP SCH ×3 (06:31→22:18)
[2017-04-29] MEDS ORDERED: PT OWN MED DRAWER 7, Y5N ONE ×3 (08:25→16:07)
[2017-04-29] MEDS: AMINO ACIDS/PROTEIN HYDROLYS 30 ML LIQUID.PKT PO SCH ×3 (09:00→17:43)
[2017-04-29] MEDS: NYSTATIN POWDER 100,000 UNITS/GM - 15 GM TOPICAL POWDER TP SCH (10:13)
[2017-04-29] MEDS: SODIUM CHLORIDE 1,000 ML IV SCH ×2 (11:11→22:19)
[2017-04-29] MEDS ORDERED: DEXTROSE 5%-WATER 100 ML IVPB ONE (11:54)
[2017-04-29] MEDS: CEFTRIAXONE 2 GM in DEXTROSE 5%-WATER 100 ML IVPB SCH (11:59)
[2017-04-29] MEDS: ASCORBIC ACID 500 MG TABLET (FP) PO SCH (12:00)
[2017-04-29] MEDS: LACTOBACILLUS ACIDOPHILUS 1 EACH TAB (FP) PO SCH (12:00)
[2017-04-29] MEDS: MULTIVITAMINS (DAILY MVI) TABLET (FP) PO SCH (12:00)
[2017-04-29] MEDS: POTASSIUM CHLORIDE ORAL LIQUID 20 MEQ/15 ML PO SCH (12:00)
[2017-04-29] MEDS: LORATADINE 10 MG TABLET PO SCH (12:00)
[2017-04-29] MEDS: FERROUS SO4 325 MG TABLET (FP) PO SCH ×2 (12:00→22:17)
[2017-04-29] MEDS: PANTOPRAZOLE 40 MG TABLET (FP) PO SCH (12:01)
[2017-04-29] MEDS: APIXABAN 2.5 MG TABLET PO SCH ×2 (12:01→22:17)
[2017-04-29] MEDS: METOPROLOL TARTRATE 25 MG TABLET (FP) PO SCH ×2 (12:01→22:19)
--- NOTE | 2017-04-29 12:01 | PN ---
Progress Note, Physician History of Present Illness: pulmonary awake,alert,nad,on vent support.leslie-orbital edema and erythema improving - Current Medication List Current Medications: Active Medications Acetaminophen (Tylenol -) 650 mg PO Q6H PRN PRN Reason: FEVER OR PAIN Last Admin: 04/27/17 19:02 Dose: 650 mg Albuterol Sulfate (Ventolin 0.083% Nebulizer Soln -) 1 amp NEB Q4H PRN PRN Reason: SHORT OF BREATH/WHEEZING Amino Acids (Prosource No Carb Liquid Pkt) 30 ml PO BID@0800,1730 [facility] Last Admin: 04/28/17 17:57 Dose: Not Given Apixaban (Eliquis -) 2.5 mg PO BID [facility] Last Admin: 04/28/17 21:46 Dose: 2.5 mg Artificial Tears (Artificial Tears) 1 drop OU BID PRN PRN Reason: DRY EYES Last Admin: 04/26/17 09:43 Dose: 1 drop Ascorbic Acid (Vitamin C -) 500 mg PO DAILY [facility] Last Admin: 04/28/17 11:13 Dose: Not Given Atorvastatin Calcium (Lipitor -) 10 mg PO HS [facility] Last Admin: 04/28/17 21:45 Dose: 10 mg Docusate Sodium (Colace -) 300 mg PO HS [facility] Last Admin: 04/28/17 21:45 Dose: 300 mg Ferrous Sulfate (Feosol -) 325 mg PO BID [facility] Last Admin: 04/28/17 21:45 Dose: 325 mg Ceftriaxone Sodium 2 gm/ (Dextrose) 100 mls @ 100 mls/hr IVPB DAILY [facility] Last Admin: 04/28/17 11:04 Dose: 100 mls/hr Vancomycin HCl 750 mg/ (Dextrose) 250 mls @ 166.667 mls/hr IVPB DAILY@1700 BREANN PRN Reason: Protocol Last Admin: 04/28/17 16:20 Dose: 166.667 mls/hr Sodium Chloride (Normal Saline -) 1,000 mls @ 80 mls/hr IV ASDIR [facility] Last Admin: 04/29/17 11:11 Dose: 80 mls/hr Lactobacillus Acidophilus (Bacid -) 1 tab PO DAILY [facility] Last Admin: 04/28/17 11:12 Dose: Not Given Loratadine (Claritin -) 10 mg PO DAILY [facility] Last Admin: 04/28/17 11:12 Dose: Not Given Metoprolol Tartrate (Lopressor -) 12.5 mg PO BID [facility] Last Admin: 04/28/17 21:47 Dose: Not Given Mirtazapine (Remeron -) 15 mg PO HS [facility] Last Admin: 04/28/17 21:45 Dose: 15 mg Multivitamins/Minerals/Vitamin C (Tab-A-Vit -) 1 tab PO DAILY [facility] Last Admin: 04/28/17 11:12 Dose: Not Given Mupirocin (Bactroban 2% Ointment -) 1 applic TP TID [facility] Last Admin: 04/29/17 06:31 Dose: 1 applic Nystatin (Nystop Powder -) 1 applic TP DAILY [facility] Last Admin: 04/28/17 11:04 Dose: 1 applic Pantoprazole Sodium (Protonix -) 40 mg PO DAILY [facility] Last Admin: 04/28/17 11:12 Dose: Not Given Potassium Chloride (Potassium Chloride Oral Liquid) 20 meq PO DAILY [facility] Last Admin: 04/28/17 11:12 Dose: Not Given - Objective Vital Signs: Vital Signs Temperature 99.3 F 04/29/17 10:02 Pulse Rate 64 04/29/17 10:02 Respiratory Rate 14 04/29/17 10:02 Blood Pressure 97/46 04/29/17 10:02 O2 Sat by Pulse Oximetry (%) 98 04/29/17 10:30 Constitutional: Yes: Well Nourished, Calm Eyes: Yes: WNL Neck: Yes: Supple (trach) Cardiovascular: Yes: Pulse Irregular, S1, S2 Respiratory: Yes: CTA Bilaterally Gastrointestinal: Yes: Normal Bowel Sounds, Soft Extremities: Yes: WNL Edema: No Labs: CBC, BMP Problem List - Problems (1) Anemia Code(s): D64.9 - ANEMIA, UNSPECIFIED Qualifiers: Anemia type: iron deficiency (2) Cellulitis Code(s): L03.90 - CELLULITIS, UNSPECIFIED (3) AICD (automatic cardioverter/defibrillator) present Code(s): Z95.810 - PRESENCE OF AUTOMATIC (IMPLANTABLE) CARDIAC DEFIBRILLATOR (4) COPD (chronic obstructive pulmonary disease) Code(s): J44.9 - CHRONIC OBSTRUCTIVE PULMONARY DISEASE, UNSPECIFIED Qualifiers : COPD type: unspecified COPD Qualified Code(s): J44.9 - Chronic obstructive pulmonary disease, unspecified; J44.9 - Chronic obstructive pulmonary disease, unspecified; J44.9 - Chronic obstructive pulmonary disease, unspecified; J44.9 - Chronic obstructive pulmonary disease, unspecified (5) Chronic respiratory failure Code(s): J96.10 - CHRONIC RESPIRATORY FAILURE, UNSP W HYPOXIA OR HYPERCAPNIA Qualifiers: Respiratory failure complication: hypercapnia Qualified Code(s): J96.12 - Chronic respiratory failure with hypercapnia; J96.12 - Chronic respiratory failure with hypercapnia; J96.12 - Chronic respiratory failure with hypercapnia (6) HTN (hypertension) Code(s): I10 - ESSENTIAL (PRIMARY) HYPERTENSION (7) Hyperlipemia Code(s): E78.5 - HYPERLIPIDEMIA, UNSPECIFIED (8) Respirator dependence Code(s): Z99.11 - DEPENDENCE ON RESPIRATOR [VENTILATOR] STATUS Assessment/Plan IMP CHRONIC RESPIRATORY FAILURE COPD AFIB IMPETIGO BILATERAL FACIAL CELLULITIS ASHD HLD HTN PLAN VENT SUPPORT INHALED BRONCHODILATORS CONTINUE ANTIBIOTICS PER JESSICA CABRERA Problem List - Problems (1) Anemia Code(s): D64.9 - ANEMIA, UNSPECIFIED Qualifiers: Anemia type: iron deficiency (2) Cellulitis Code(s): L03.90 - CELLULITIS, UNSPECIFIED (3) AICD (automatic cardioverter/defibrillator) present Code(s): Z95.810 - PRESENCE OF AUTOMATIC (IMPLANTABLE) CARDIAC DEFIBRILLATOR (4) COPD (chronic obstructive pulmonary disease) Code(s): J44.9 - CHRONIC OBSTRUCTIVE PULMONARY DISEASE, UNSPECIFIED Qualifiers : COPD type: unspecified COPD Qualified Code(s): J44.9 - Chronic obstructive pulmonary disease, unspecified; J44.9 - Chronic obstructive pulmonary disease, unspecified; J44.9 - Chronic obstructive pulmonary disease, unspecified; J44.9 - Chronic obstructive pulmonary disease, unspecified (5) Chronic respiratory failure Code(s): J96.10 - CHRONIC RESPIRATORY FAILURE, UNSP W HYPOXIA OR HYPERCAPNIA Qualifiers: Respiratory failure complication: hypercapnia Qualified Code(s): J96.12 - Chronic respiratory failure with hypercapnia; J96.12 - Chronic respiratory failure with hypercapnia; J96.12 - Chronic respiratory failure with hypercapnia (6) HTN (hypertension) Code(s): I10 - ESSENTIAL (PRIMARY) HYPERTENSION (7) Hyperlipemia Code(s): E78.5 - HYPERLIPIDEMIA, UNSPECIFIED (8) Respirator dependence Code(s): Z99.11 - DEPENDENCE ON RESPIRATOR [VENTILATOR] STATUS
--- NOTE | 2017-04-29 13:16 | PN ---
Progress Note, Physician Chief Complaint: AWAKE EATING LUNCH FAMILY BEDSIDE - Current Medication List Current Medications: Active Medications Acetaminophen (Tylenol -) 650 mg PO Q6H PRN PRN Reason: FEVER OR PAIN Last Admin: 04/27/17 19:02 Dose: 650 mg Albuterol Sulfate (Ventolin 0.083% Nebulizer Soln -) 1 amp NEB Q4H PRN PRN Reason: SHORT OF BREATH/WHEEZING Amino Acids (Prosource No Carb Liquid Pkt) 30 ml PO BID@0800,1730 [facility] Last Admin: 04/29/17 12:01 Dose: 30 ml Apixaban (Eliquis -) 2.5 mg PO BID [facility] Last Admin: 04/29/17 12:01 Dose: 2.5 mg Artificial Tears (Artificial Tears) 1 drop OU BID PRN PRN Reason: DRY EYES Last Admin: 04/26/17 09:43 Dose: 1 drop Ascorbic Acid (Vitamin C -) 500 mg PO DAILY [facility] Last Admin: 04/29/17 12:00 Dose: 500 mg Atorvastatin Calcium (Lipitor -) 10 mg PO HS [facility] Last Admin: 04/28/17 21:45 Dose: 10 mg Docusate Sodium (Colace -) 300 mg PO HS [facility] Last Admin: 04/28/17 21:45 Dose: 300 mg Ferrous Sulfate (Feosol -) 325 mg PO BID [facility] Last Admin: 04/29/17 12:00 Dose: 325 mg Ceftriaxone Sodium 2 gm/ (Dextrose) 100 mls @ 100 mls/hr IVPB DAILY [facility] Last Admin: 04/29/17 11:59 Dose: 100 mls/hr Vancomycin HCl 750 mg/ (Dextrose) 250 mls @ 166.667 mls/hr IVPB DAILY@1700 BRE[facility] PRN Reason: Protocol Last Admin: 04/28/17 16:20 Dose: 166.667 mls/hr Sodium Chloride (Normal Saline -) 1,000 mls @ 80 mls/hr IV ASDIR [facility] Last Admin: 04/29/17 11:11 Dose: 80 mls/hr Lactobacillus Acidophilus (Bacid -) 1 tab PO DAILY [facility] Last Admin: 04/29/17 12:00 Dose: 1 tab Loratadine (Claritin -) 10 mg PO DAILY [facility] Last Admin: 04/29/17 12:00 Dose: 10 mg Metoprolol Tartrate (Lopressor -) 12.5 mg PO BID [facility] Last Admin: 04/29/17 12:01 Dose: Not Given Mirtazapine (Remeron -) 15 mg PO HS [facility] Last Admin: 04/28/17 21:45 Dose: 15 mg Multivitamins/Minerals/Vitamin C (Tab-A-Vit -) 1 tab PO DAILY [facility] Last Admin: 04/29/17 12:00 Dose: 1 tab Mupirocin (Bactroban 2% Ointment -) 1 applic TP TID [facility] Last Admin: 04/29/17 06:31 Dose: 1 applic Nystatin (Nystop Powder -) 1 applic TP DAILY [facility] Last Admin: 04/28/17 11:04 Dose: 1 applic Pantoprazole Sodium (Protonix -) 40 mg PO DAILY [facility] Last Admin: 04/29/17 12:01 Dose: 40 mg Potassium Chloride (Potassium Chloride Oral Liquid) 20 meq PO DAILY [facility] Last Admin: 04/29/17 12:00 Dose: 20 meq - Objective Vital Signs: Vital Signs Temperature 99.3 F 04/29/17 10:02 Pulse Rate 64 04/29/17 10:02 Respiratory Rate 14 04/29/17 10:02 Blood Pressure 97/46 04/29/17 10:02 O2 Sat by Pulse Oximetry (%) 98 04/29/17 10:30 Constitutional: Yes: Mild Distress Eyes: Yes: WNL HENT: Yes: WNL, Other Cardiovascular: Yes: WNL Respiratory: Yes: Mechanically Ventilated Gastrointestinal: Yes: WNL Genitourinary: Yes: Other Musculoskeletal: Yes: Muscle Weakness Extremities: Yes: Other Edema: Yes Edema: LLE: Trace, RLE: Trace Peripheral Pulses WNL: Yes Integumentary: Yes: Skin Tear, Venous Stasis Changes Wound/Incision: Yes: Dressing Dry and Intact Neurological: Yes: Pre-Existing Deficit, Weakness ...Motor Strength: LLE, RLE Psychiatric: Yes: Other Labs: CBC, BMP 04/27/17 06:20 04/27/17 06:20 INR, PTT INR 1.37 (0.82-1.09) H 04/23/17 01:00 Problem List - Problems (1) Anemia Code(s): D64.9 - ANEMIA, UNSPECIFIED Qualifiers: Anemia type: iron deficiency (2) Cellulitis Code(s): L03.90 - CELLULITIS, UNSPECIFIED (3) Renal insufficiency, mild Code(s): N28.9 - DISORDER OF KIDNEY AND URETER, UNSPECIFIED (4) AICD (automatic cardioverter/defibrillator) present Code(s): Z95.810 - PRESENCE OF AUTOMATIC (IMPLANTABLE) CARDIAC DEFIBRILLATOR (5) COPD (chronic obstructive pulmonary disease) Code(s): J44.9 - CHRONIC OBSTRUCTIVE PULMONARY DISEASE, UNSPECIFIED Qualifiers : COPD type: unspecified COPD Qualified Code(s): J44.9 - Chronic obstructive pulmonary disease, unspecified; J44.9 - Chronic obstructive pulmonary disease, unspecified; J44.9 - Chronic obstructive pulmonary disease, unspecified; J44.9 - Chronic obstructive pulmonary disease, unspecified (6) Chronic respiratory failure Code(s): J96.10 - CHRONIC RESPIRATORY FAILURE, UNSP W HYPOXIA OR HYPERCAPNIA Qualifiers: Respiratory failure complication: hypercapnia Qualified Code(s): J96.12 - Chronic respiratory failure with hypercapnia; J96.12 - Chronic respiratory failure with hypercapnia; J96.12 - Chronic respiratory failure with hypercapnia (7) Respirator dependence Code(s): Z99.11 - DEPENDENCE ON RESPIRATOR [VENTILATOR] STATUS Assessment/Plan IV ABX PULMONARYE AP CHECK CULTURES IVF HOLD BP MEDS FOR LOW SBP
[2017-04-29] MEDS: VANCOMYCIN 750 MG in DEXTROSE 5%-WATER - 250 ML IVPB SCH (16:09)
[2017-04-29] MEDS: ATORVASTATIN CA 10 MG TABLET (FP) PO SCH (22:17)
[2017-04-29] MEDS: MIRTAZAPINE 15 MG TABLET (FP) PO SCH (22:17)
[2017-04-29] MEDS: DOCUSATE SODIUM 100 MG CAPSULE (FP) PO SCH (22:17)
[2017-04-29] MEDS: ALBUTEROL SO4 0.083% IH SOL 2.5 MG/3 ML VIAL.NEB. NEB PRN (23:00)
[2017-04-30] MEDS: ALBUTEROL SO4 0.083% IH SOL 2.5 MG/3 ML VIAL.NEB. NEB PRN (05:35)
[2017-04-30] MEDS: MUPIROCIN 2% TOPICAL OINTMENT 22 GM TUBE TP SCH ×3 (06:37→23:02)
[2017-04-30] MEDS: SODIUM CHLORIDE 1,000 ML IV SCH ×2 (06:38→23:40)
[2017-04-30 08:08] LABS: MCH 26.2 pg (25.7-33.7); MCHC 31.4 g/dl (32.0-36.0); MEAN CELL VOLUME 83.5 fl (80-96); MEAN PLT VOLUME 8.1 fl (7.5-11.1); PLATELET COUNT 195 K/MM3 (134-434); RDW 17.6 % (11.6-15.6); WHITE BLOOD COUNT 6.9 K/mm3 (4.0-10.0)
[2017-04-30] MEDS: AMINO ACIDS/PROTEIN HYDROLYS 30 ML LIQUID.PKT PO SCH ×2 (08:40→17:40)
[2017-04-30 08:47] LABS: ANION GAP 6 (8-16); CALCIUM 7.9 mg/dL (8.5-10.1); CO2 29 mmol/L (21-32); CREATININE 0.4 mg/dL (0.55-1.02); GLUCOSE,RANDOM 83 mg/dL (74-106); SGOT/AST 11 U/L (15-37); SGPT/ALT 8 U/L (12-78)
[2017-04-30 08:48] LABS: ALK PHOS 52 U/L (45-117); BILIRUBIN,TOTAL 0.3 mg/dL (0.2-1.0); TOT PROT 5.4 g/dl (6.4-8.2)
[2017-04-30] MEDS ORDERED: PT OWN MED DRAWER 7, Y5N ONE ×2 (11:09→22:44)
[2017-04-30] MEDS ORDERED: DEXTROSE 5%-WATER 100 ML IVPB ONE (11:10)
[2017-04-30] MEDS: LACTOBACILLUS ACIDOPHILUS 1 EACH TAB (FP) PO SCH (11:13)
[2017-04-30] MEDS: ASCORBIC ACID 500 MG TABLET (FP) PO SCH (11:13)
[2017-04-30] MEDS: FERROUS SO4 325 MG TABLET (FP) PO SCH ×2 (11:13→23:03)
[2017-04-30] MEDS: PANTOPRAZOLE 40 MG TABLET (FP) PO SCH (11:13)
[2017-04-30] MEDS: LORATADINE 10 MG TABLET PO SCH (11:13)
[2017-04-30] MEDS: MULTIVITAMINS (DAILY MVI) TABLET (FP) PO SCH (11:13)
[2017-04-30] MEDS: CEFTRIAXONE 2 GM in DEXTROSE 5%-WATER 100 ML IVPB SCH (11:14)
[2017-04-30] MEDS: POTASSIUM CHLORIDE ORAL LIQUID 20 MEQ/15 ML PO SCH (11:14)
[2017-04-30] MEDS: METOPROLOL TARTRATE 25 MG TABLET (FP) PO SCH ×2 (11:14→23:04)
[2017-04-30] MEDS: APIXABAN 2.5 MG TABLET PO SCH ×2 (11:14→23:03)
[2017-04-30] MEDS: NYSTATIN POWDER 100,000 UNITS/GM - 15 GM TOPICAL POWDER TP SCH (11:23)
--- NOTE | 2017-04-30 13:17 | PN ---
Progress Note, Physician History of Present Illness: PULMONARY AWAKE,ALERT ON VENT SUPPORT AC MODE COMFORTABLE. FACIAL CELLULITUS IMPROVING - Current Medication List Current Medications: Active Medications Acetaminophen (Tylenol -) 650 mg PO Q6H PRN PRN Reason: FEVER OR PAIN Last Admin: 04/27/17 19:02 Dose: 650 mg Albuterol Sulfate (Ventolin 0.083% Nebulizer Soln -) 1 amp NEB Q4H PRN PRN Reason: SHORT OF BREATH/WHEEZING Last Admin: 04/30/17 05:35 Dose: 1 amp Amino Acids (Prosource No Carb Liquid Pkt) 30 ml PO BID@0800,1730 [facility] Last Admin: 04/30/17 08:40 Dose: 30 ml Apixaban (Eliquis -) 2.[address] [facility] Last Admin: 04/30/17 11:14 Dose: 2.5 mg Artificial Tears (Artificial Tears) 1 drop OU BID PRN PRN Reason: DRY EYES Last Admin: 04/26/17 09:43 Dose: 1 drop Ascorbic Acid (Vitamin C -) [address] [facility] Last Admin: 04/30/17 11:13 Dose: 500 mg Atorvastatin Calcium (Lipitor -) [address] [facility] Last Admin: 04/29/17 22:17 Dose: 10 mg Docusate Sodium (Colace -) [address] [facility] Last Admin: 04/29/17 22:17 Dose: 300 mg Ferrous Sulfate (Feosol -) [address] [facility] Last Admin: 04/30/17 11:13 Dose: 325 mg Vancomycin HCl 750 mg/ (Dextrose) 250 mls @ 166.667 mls/hr IVPB DAILY@1700 BRE[facility] PRN Reason: Protocol Last Admin: 04/29/17 16:09 Dose: 166.667 mls/hr Sodium Chloride (Normal Saline -) 1,000 mls @ 80 mls/hr IV ASDIR [facility] Last Admin: 04/30/17 06:38 Dose: 80 mls/hr Lactobacillus Acidophilus (Bacid -) [address] [facility] Last Admin: 04/30/17 11:13 Dose: 1 tab Loratadine (Claritin -) [address] [facility] Last Admin: 04/30/17 11:13 Dose: 10 mg Metoprolol Tartrate (Lopressor -) 12.[address] [facility] Last Admin: 04/30/17 11:14 Dose: Not Given Mirtazapine (Remeron -) [address] [facility] Last Admin: 04/29/17 22:17 Dose: 15 mg Multivitamins/Minerals/Vitamin C (Tab-A-Vit -) [address] [facility] Last Admin: 04/30/17 11:13 Dose: 1 tab Mupirocin (Bactroban 2% Ointment -) [address] [facility] Last Admin: 04/30/17 06:37 Dose: 1 applic Nystatin (Nystop Powder -) [address] [facility] Last Admin: 04/30/17 11:23 Dose: 1 applic Pantoprazole Sodium (Protonix -) [address] [facility] Last Admin: 04/30/17 11:13 Dose: 40 mg Potassium Chloride (Potassium Chloride Oral Liquid) [address] [facility] Last Admin: 04/30/17 11:14 Dose: 20 meq - Objective Vital Signs: Vital Signs Temperature 97.8 F 04/30/17 07:10 Pulse Rate 84 04/30/17 12:15 Respiratory Rate 14 04/30/17 10:10 Blood Pressure 118/62 04/30/17 07:10 O2 Sat by Pulse Oximetry (%) 96 04/30/17 12:15 Constitutional: Yes: Well Nourished, Calm Eyes: Yes: WNL HENT: Yes: WNL Neck: Yes: Supple (TRACH) Cardiovascular: Yes: Pulse Irregular, S1, S2 Respiratory: Yes: Rhonchi (FEW SCATTERED RHONCHI) Gastrointestinal: Yes: Normal Bowel Sounds, Soft Extremities: Yes: WNL Edema: Yes Edema: LLE: Trace, RLE: Trace Labs: CBC, BMP 04/30/17 06:50 04/30/17 06:50 INR, PTT INR 1.37 (0.82-1.09) H 04/23/17 01:00 Problem List - Problems (1) Anemia Code(s): D64.9 - ANEMIA, UNSPECIFIED Qualifiers: Anemia type: iron deficiency (2) Cellulitis Code(s): L03.90 - CELLULITIS, UNSPECIFIED (3) AICD (automatic cardioverter/defibrillator) present Code(s): Z95.810 - PRESENCE OF AUTOMATIC (IMPLANTABLE) CARDIAC DEFIBRILLATOR (4) COPD (chronic obstructive pulmonary disease) Code(s): J44.9 - CHRONIC OBSTRUCTIVE PULMONARY DISEASE, UNSPECIFIED Qualifiers : COPD type: unspecified COPD Qualified Code(s): J44.9 - Chronic obstructive pulmonary disease, unspecified; J44.9 - Chronic obstructive pulmonary disease, unspecified; J44.9 - Chronic obstructive pulmonary disease, unspecified; J44.9 - Chronic obstructive pulmonary disease, unspecified (5) Chronic respiratory failure Code(s): J96.10 - CHRONIC RESPIRATORY FAILURE, UNSP W HYPOXIA OR HYPERCAPNIA Qualifiers: Respiratory failure complication: hypercapnia Qualified Code(s): J96.12 - Chronic respiratory failure with hypercapnia; J96.12 - Chronic respiratory failure with hypercapnia; J96.12 - Chronic respiratory failure with hypercapnia (6) HTN (hypertension) Code(s): I10 - ESSENTIAL (PRIMARY) HYPERTENSION (7) Hyperlipemia Code(s): E78.5 - HYPERLIPIDEMIA, UNSPECIFIED (8) Respirator dependence Code(s): Z99.11 - DEPENDENCE ON RESPIRATOR [VENTILATOR] STATUS Assessment/Plan IMP CHRONIC RESPIRATORY FAILURE COPD AFIB IMPETIGO BILATERAL FACIAL CELLULITIS improving ASHD HLD HTN PLAN VENT SUPPORT INHALED BRONCHODILATORS CONTINUE ANTIBIOTICS PER JESSICA CABRERA Problem List - Problems (1) Anemia Code(s): D64.9 - ANEMIA, UNSPECIFIED Qualifiers: Anemia type: iron deficiency (2) Cellulitis Code(s): L03.90 - CELLULITIS, UNSPECIFIED (3) AICD (automatic cardioverter/defibrillator) present Code(s): Z95.810 - PRESENCE OF AUTOMATIC (IMPLANTABLE) CARDIAC DEFIBRILLATOR (4) COPD (chronic obstructive pulmonary disease) Code(s): J44.9 - CHRONIC OBSTRUCTIVE PULMONARY DISEASE, UNSPECIFIED Qualifiers : COPD type: unspecified COPD Qualified Code(s): J44.9 - Chronic obstructive pulmonary disease, unspecified; J44.9 - Chronic obstructive pulmonary disease, unspecified; J44.9 - Chronic obstructive pulmonary disease, unspecified; J44.9 - Chronic obstructive pulmonary disease, unspecified (5) Chronic respiratory failure Code(s): J96.10 - CHRONIC RESPIRATORY FAILURE, UNSP W HYPOXIA OR HYPERCAPNIA Qualifiers: Respiratory failure complication: hypercapnia Qualified Code(s): J96.12 - Chronic respiratory failure with hypercapnia; J96.12 - Chronic respiratory failure with hypercapnia; J96.12 - Chronic respiratory failure with hypercapnia (6) HTN (hypertension) Code(s): I10 - ESSENTIAL (PRIMARY) HYPERTENSION (7) Hyperlipemia Code(s): E78.5 - HYPERLIPIDEMIA, UNSPECIFIED (8) Respirator dependence Code(s): Z99.11 - DEPENDENCE ON RESPIRATOR [VENTILATOR] STATUS
--- NOTE | 2017-04-30 14:37 | PN ---
Progress Note, Physician Chief Complaint: Facial cellulitis vs Impetigo History of Present Illness: NAD, no pain, -rash has characteristic metzger crusty appearance -seen by ID -on IV abx -Seen by Dermatology, who recommended topical hc 2.5% and bactroban -low grade temps - Current Medication List Current Medications: Active Medications Acetaminophen (Tylenol -) 650 mg PO Q6H PRN PRN Reason: FEVER OR PAIN Last Admin: 04/27/17 19:02 Dose: 650 mg Albuterol Sulfate (Ventolin 0.083% Nebulizer Soln -) 1 amp NEB Q4H PRN PRN Reason: SHORT OF BREATH/WHEEZING Last Admin: 04/30/17 05:35 Dose: 1 amp Amino Acids (Prosource No Carb Liquid Pkt) 30 ml PO BID@0800,1730 [facility] Last Admin: 04/30/17 08:40 Dose: 30 ml Apixaban (Eliquis -) 2.5 mg PO BID [facility] Last Admin: 04/30/17 11:14 Dose: 2.5 mg Artificial Tears (Artificial Tears) 1 drop OU BID PRN PRN Reason: DRY EYES Last Admin: 04/26/17 09:43 Dose: 1 drop Ascorbic Acid (Vitamin C -) 500 mg PO DAILY [facility] Last Admin: 04/30/17 11:13 Dose: 500 mg Atorvastatin Calcium (Lipitor -) 10 mg PO HS [facility] Last Admin: 04/29/17 22:17 Dose: 10 mg Docusate Sodium (Colace -) 300 mg PO HS [facility] Last Admin: 04/29/17 22:17 Dose: 300 mg Ferrous Sulfate (Feosol -) 325 mg PO BID [facility] Last Admin: 04/30/17 11:13 Dose: 325 mg Hydrocortisone (Anusol 2.5% Hc Cream -) 1 applic TP DAILY [facility] Vancomycin HCl 750 mg/ (Dextrose) 250 mls @ 166.667 mls/hr IVPB DAILY@1700 BRE[facility] PRN Reason: Protocol Last Admin: 04/29/17 16:09 Dose: 166.667 mls/hr Sodium Chloride (Normal Saline -) 1,000 mls @ 80 mls/hr IV ASDIR [facility] Last Admin: 04/30/17 06:38 Dose: 80 mls/hr Lactobacillus Acidophilus (Bacid -) 1 tab PO DAILY [facility] Last Admin: 04/30/17 11:13 Dose: 1 tab Loratadine (Claritin -) 10 mg PO DAILY [facility] Last Admin: 04/30/17 11:13 Dose: 10 mg Metoprolol Tartrate (Lopressor -) 12.5 mg PO BID [facility] Last Admin: 04/30/17 11:14 Dose: Not Given Mirtazapine (Remeron -) 15 mg PO HS [facility] Last Admin: 04/29/17 22:17 Dose: 15 mg Multivitamins/Minerals/Vitamin C (Tab-A-Vit -) 1 tab PO DAILY [facility] Last Admin: 04/30/17 11:13 Dose: 1 tab Mupirocin (Bactroban 2% Ointment -) 1 applic TP TID [facility] Last Admin: 04/30/17 06:37 Dose: 1 applic Nystatin (Nystop Powder -) 1 applic TP DAILY [facility] Last Admin: 04/30/17 11:23 Dose: 1 applic Pantoprazole Sodium (Protonix -) 40 mg PO DAILY [facility] Last Admin: 04/30/17 11:13 Dose: 40 mg Potassium Chloride (Potassium Chloride Oral Liquid) 20 meq PO DAILY [facility] Last Admin: 04/30/17 11:14 Dose: 20 meq - Objective Vital Signs: Vital Signs Temperature 99.0 F 04/30/17 14:28 Pulse Rate 70 04/30/17 14:28 Respiratory Rate 15 04/30/17 14:28 Blood Pressure 128/68 04/30/17 14:28 O2 Sat by Pulse Oximetry (%) 96 04/30/17 12:15 Constitutional: Yes: Well Nourished, No Distress, Calm Cardiovascular: Yes: Regular Rate and Rhythm Respiratory: Yes: Mechanically Ventilated Gastrointestinal: Yes: Normal Bowel Sounds Extremities: Yes: WNL Edema: No Peripheral Pulses WNL: Yes Integumentary: Yes: Rash (Facial rash improved) Neurological: Yes: Alert, Oriented Psychiatric: Yes: Alert, Oriented Labs: CBC, BMP 04/30/17 06:50 04/30/17 06:50 INR, PTT INR 1.37 (0.82-1.09) H 04/23/17 01:00 Problem List - Problems (1) Fever Assessment/Plan: -secondary to infectious process -preliminary blood culture-repeat negative -tylenol for fever over 100.0 F -repeat labs in AM Code(s): R50.9 - FEVER, UNSPECIFIED (2) Sinus tachycardia Assessment/Plan: -secondary to infectious process -blood culture -tylenol for fever over 100.0 F -on metoprolol 12.5 mg po BID, hold for SBP below 100 -seen by cardiology -no further cardiac workup recommended Code(s): R00.0 - TACHYCARDIA, UNSPECIFIED (3) Functional quadriplegia Code(s): R53.2 - FUNCTIONAL QUADRIPLEGIA (4) Leukocytosis Assessment/Plan: -WBC improved-normalized -ID on board -IV abx -BC pending- preliminary negative -Sputum culture negative -wound culture shows Acetanobactor -repeat labs in AM Code(s): D72.829 - ELEVATED WHITE BLOOD CELL COUNT, UNSPECIFIED (5) Facial rash Assessment/Plan: -cellulitis vs Non bullous impetigo -seen by ID -IV abx -wound Culture : Microbiology 04/28/17 00:55 Gram Stain - Final Sputum - Endotrachea Suction/Ventilator Sputum Culture - Preliminary Acinetobacter Baumannii/Haemol Non Lactose Fermenting Gnb 04/25/17 21:00 Gram Stain - Final Face Wound Culture - Final Acinetobacter Baumannii/Haemol 04/27/17 20:20 Blood Culture - Preliminary Blood - Peripheral Venous NO GROWTH OBTAINED AFTER 48 HOURS, INCUBATION TO CONTINUE FOR 3 DAYS. 04/27/17 20:15 Blood Culture - Preliminary Blood - Peripheral Venous NO GROWTH OBTAINED AFTER 48 HOURS, INCUBATION TO CONTINUE FOR 3 DAYS. -WBC improved -low grade temp now -gentle cleanser on the face HC 2.5 % mupirocin ointment on the rash -dermatology on board Code(s): R21 - RASH AND OTHER NONSPECIFIC SKIN ERUPTION (6) Chronic respiratory failure Assessment/Plan: -on mech vent -seen by pulmonary Code(s): J96.10 - CHRONIC RESPIRATORY FAILURE, UNSP W HYPOXIA OR HYPERCAPNIA Qualifiers: Respiratory failure complication: hypercapnia Qualified Code(s): J96.12 - Chronic respiratory failure with hypercapnia; J96.12 - Chronic respiratory failure with hypercapnia; J96.12 - Chronic respiratory failure with hypercapnia Assessment/Plan see problem list
--- NOTE | 2017-04-30 15:39 | PN ---
Physical Exam: INFECTIOUS DISEASE SUBJECTIVE: Patient seen and examined this AM. Nonverbal, nods to questions. States feeling better OBJECTIVE: Vital Signs Period Temp Pulse Resp BP Sys/Vera Pulse Ox Last 24 Hr 97.8 F-99.3 F 67-84 14-23 110-128/56-78 96-97 GEN: Eyes open nods to some yes/no questions, unable to assess orientation HEENT: PERRLA, EOMi, mild periorbital edema CV: S1, S2, irregular rhythm LUNG: Anterior lung sounds CTA ABD: Soft, NT, ND, normoactive BS MSK: No edema, no erythema NEURO: Difficult to assess Laboratory Results - last 24 hr 04/30/17 04/30/17 06:50 06:50 WBC 6.9 RBC 3.27 L Hgb 8.6 L D Hct 27.3 L D MCV 83.5 MCH 26.2 MCHC 31.4 L RDW 17.6 H Plt Count 195 MPV 8.1 D Sodium 142 Potassium 3.7 Chloride 107 Carbon Dioxide 29 Anion Gap 6 L BUN 10 D Creatinine 0.4 L Creat Clearance w eGFR > 60 Random Glucose 83 Calcium 7.9 L Total Bilirubin 0.3 D AST 11 L D ALT 8 L Alkaline Phosphatase 52 D Total Protein 5.4 L Albumin 2.0 L Active Medications Generic Name Dose Route Start Last Admin Trade Name Freq PRN Reason Stop Dose Admin Acetaminophen 650 mg 04/23/17 07:46 04/27/17 19:02 Tylenol - PO 650 mg Q6H PRN Administration FEVER OR PAIN Albuterol Sulfate 1 amp 04/23/17 07:46 04/30/17 05:35 Ventolin 0.083% Nebulizer Soln - NEB 1 amp Q4H PRN Administration SHORT OF BREATH/WHEEZING Amino Acids 30 ml 04/24/17 17:30 04/30/17 08:40 Prosource No Carb Liquid Pkt PO 30 ml BID@0800,1730 BREANN Administration Apixaban 2.5 mg 04/23/17 10:00 04/30/17 11:14 Eliquis - PO 2.5 mg BID BREANN Administration Artificial Tears 1 drop 04/23/17 07:46 04/26/17 09:43 Artificial Tears OU 1 drop BID PRN Administration DRY EYES Ascorbic Acid 500 mg 04/23/17 10:00 04/30/17 11:13 Vitamin C - PO 500 mg DAILY BREANN Administration Atorvastatin Calcium 10 mg 04/23/17 22:00 04/29/17 22:17 Lipitor - PO 10 mg HS BREANN Administration Docusate Sodium 300 mg 04/23/17 22:00 04/29/17 22:17 Colace - PO 300 mg HS BREANN Administration Ferrous Sulfate 325 mg 04/23/17 10:00 04/30/17 11:13 Feosol - PO 325 mg BID BREANN Administration Hydrocortisone 1 applic 04/30/17 14:30 Anusol 2.5% Hc Cream - TP DAILY BREANN Vancomycin HCl 750 mg/ 250 mls @ 166.667 mls/hr 04/28/17 17:00 04/29/17 16:09 Dextrose IVPB 166.667 mls/hr DAILY@1700 BREANN Administration Protocol Sodium Chloride 1,000 mls @ 80 mls/hr 04/28/17 22:15 04/30/17 06:38 Normal Saline - IV 80 mls/hr ASDIR BREANN Administration Iron Sucrose 200 mg/ Sodium 250 mls @ 250 mls/hr 04/30/17 14:35 Chloride IVPB 05/02/17 10:59 DAILY BREANN Lactobacillus Acidophilus 1 tab 04/23/17 10:00 04/30/17 11:13 Bacid - PO 1 tab DAILY BREANN Administration Loratadine 10 mg 04/23/17 10:00 04/30/17 11:13 Claritin - PO 10 mg DAILY BREANN Administration Metoprolol Tartrate 12.5 mg 04/28/17 11:01 04/30/17 11:14 Lopressor - PO Not Given BID BREANN Mirtazapine 15 mg 04/23/17 22:00 04/29/17 22:17 Remeron - PO 15 mg HS BREANN Administration Multivitamins/Minerals/Vitamin C 1 tab 04/23/17 10:00 04/30/17 11:13 Tab-A-Vit - PO 1 tab DAILY BREANN Administration Mupirocin 1 applic 04/23/17 15:00 04/30/17 06:37 Bactroban 2% Ointment - TP 1 applic TID BREANN Administration Nystatin 1 applic 04/23/17 10:00 04/30/17 11:23 Nystop Powder - TP 1 applic DAILY BREANN Administration Pantoprazole Sodium 40 mg 04/23/17 10:00 04/30/17 11:13 Protonix - PO 40 mg DAILY BREANN Administration Potassium Chloride 20 meq 04/23/17 10:00 04/30/17 11:14 Potassium Chloride Oral Liquid PO 20 meq DAILY BREANN Administration ASSESSMENT/PLAN: Ms. Raygoza is a 82yo F with PMHx of end stage COPD, Chronic Respiratory failure ( now vent dependent), CHF, Cardiac Arrest (s/p AICD), Afib on Eliquis who presented with facial rash x 3 days admitted for cellulitis # Impetigo w/ Cellulitis - improving - Day 8 of Vancomycin + Ceftriaxone - Can continue Vancomycin for one more day, switch to PO abx tmrw Discussed w/ Dr Aguila. We will continue to follow the patient. Thank you Pao Camarillo MD - PGY1 - Infectious DIsease Visit type - Emergency Visit Emergency Visit: No - New Patient This patient is new to me today: No - Critical Care Critical Care patient: No - Discharge Referral Referred to [facility] Med P.C.: No
--- NOTE | 2017-04-30 16:34 | PN ---
Teaching Attending Note Name of Resident: Pao Camarillo ATTENDING PHYSICIAN STATEMENT I saw and evaluated the patient. I reviewed the resident's note and discussed the case with the resident. I agree with the resident's findings and plan as documented. SUBJECTIVE Awake and alert No pain indicated Afebrile WBC WNL OBJECTIVE: Facial swelling resolved Erythema almost completely resolved + air entry bilaterally ASSESSMENT AND PLAN: Facial cellulitis- much improved Chronic respiratory failure Continue IV antibiotics additional 24h
[2017-04-30] MEDS: IRON SUCROSE INJECTION 200 MG in SODIUM CHLORIDE 240 ML IVPB SCH (17:47)
[2017-04-30] MEDS: CEFTRIAXONE 1 GM in DEXTROSE 5%-WATER - 50 ML IVPB SCH (18:42)
[2017-04-30] MEDS: VANCOMYCIN 750 MG in DEXTROSE 5%-WATER - 250 ML IVPB SCH (18:47)
[2017-04-30] MEDS: DOCUSATE SODIUM 100 MG CAPSULE (FP) PO SCH (23:03)
[2017-04-30] MEDS: ATORVASTATIN CA 10 MG TABLET (FP) PO SCH (23:04)
[2017-04-30] MEDS: MIRTAZAPINE 15 MG TABLET (FP) PO SCH (23:05)
[2017-05-01] MEDS: HYDROCORTISONE 2.5% TOPICAL CREAM 30 GM TUBE TP SCH ×2 (01:00→10:43)
[2017-05-01] MEDS: MUPIROCIN 2% TOPICAL OINTMENT 22 GM TUBE TP SCH ×2 (06:47→13:08)
--- NOTE | 2017-05-01 09:45 | PN ---
Physical Exam: INFECTIOUS DISEASE SUBJECTIVE: Patient seen and examined. Nonverbal with trach. Nods to questions. States no CP, no SOB, no fevers/chills OBJECTIVE: Vital Signs Period Temp Pulse Resp BP Sys/Vera Pulse Ox Last 24 Hr 98.7 F-99.8 F 60-84 14-23 98-128/56-75 96-96 GEN: Awake, alert HEENT: PERRLA, EOMi CV: S1, S2, RRR LUNG: CTABL ABD: Soft, NT, ND Active Medications Generic Name Dose Route Start Last Admin Trade Name Freq PRN Reason Stop Dose Admin Acetaminophen 650 mg 04/23/17 07:46 04/27/17 19:02 Tylenol - PO 650 mg Q6H PRN Administration FEVER OR PAIN Albuterol Sulfate 1 amp 04/23/17 07:46 04/30/17 05:35 Ventolin 0.083% Nebulizer Soln - NEB 1 amp Q4H PRN Administration SHORT OF BREATH/WHEEZING Amino Acids 30 ml 04/24/17 17:30 04/30/17 17:40 Prosource No Carb Liquid Pkt PO 30 ml BID@0800,1730 BREANN Administration Apixaban 2.5 mg 04/23/17 10:00 04/30/17 23:03 Eliquis - PO 2.5 mg BID BREANN Administration Artificial Tears 1 drop 04/23/17 07:46 04/26/17 09:43 Artificial Tears OU 1 drop BID PRN Administration DRY EYES Ascorbic Acid 500 mg 04/23/17 10:00 04/30/17 11:13 Vitamin C - PO 500 mg DAILY BREANN Administration Atorvastatin Calcium 10 mg 04/23/17 22:00 04/30/17 23:04 Lipitor - PO 10 mg HS BREANN Administration Docusate Sodium 300 mg 04/23/17 22:00 04/30/17 23:03 Colace - PO 300 mg HS BREANN Administration Ferrous Sulfate 325 mg 04/23/17 10:00 04/30/17 23:03 Feosol - PO 325 mg BID BREANN Administration Hydrocortisone 1 applic 04/30/17 14:30 05/01/17 01:00 Anusol 2.5% Hc Cream - TP 1 applic DAILY BREANN Administration Vancomycin HCl 750 mg/ 250 mls @ 166.667 mls/hr 04/28/17 17:00 04/30/17 18:47 Dextrose IVPB 166.667 mls/hr DAILY@1700 BREANN Administration Protocol Sodium Chloride 1,000 mls @ 80 mls/hr 04/28/17 22:15 04/30/17 23:40 Normal Saline - IV 80 mls/hr ASDIR BREANN Administration Iron Sucrose 200 mg/ Sodium 250 mls @ 250 mls/hr 04/30/17 14:35 04/30/17 17:47 Chloride IVPB 05/02/17 10:59 250 mls/hr DAILY BREANN Administration Ceftriaxone Sodium 1 gm/ 50 mls @ 100 mls/hr 04/30/17 16:45 04/30/17 18:42 Dextrose IVPB Not Given DAILY BREANN Lactobacillus Acidophilus 1 tab 04/23/17 10:00 04/30/17 11:13 Bacid - PO 1 tab DAILY BREANN Administration Loratadine 10 mg 04/23/17 10:00 04/30/17 11:13 Claritin - PO 10 mg DAILY BREANN Administration Metoprolol Tartrate 12.5 mg 04/28/17 11:01 04/30/17 23:04 Lopressor - PO 12.5 mg BID BREANN Administration Mirtazapine 15 mg 04/23/17 22:00 04/30/17 23:05 Remeron - PO 15 mg HS BREANN Administration Multivitamins/Minerals/Vitamin C 1 tab 04/23/17 10:00 04/30/17 11:13 Tab-A-Vit - PO 1 tab DAILY BREANN Administration Mupirocin 1 applic 04/23/17 15:00 05/01/17 06:47 Bactroban 2% Ointment - TP 1 applic TID BREANN Administration Nystatin 1 applic 04/23/17 10:00 04/30/17 11:23 Nystop Powder - TP 1 applic DAILY BREANN Administration Pantoprazole Sodium 40 mg 04/23/17 10:00 04/30/17 11:13 Protonix - PO 40 mg DAILY BREANN Administration Potassium Chloride 20 meq 04/23/17 10:00 04/30/17 11:14 Potassium Chloride Oral Liquid PO 20 meq DAILY BREANN Administration ASSESSMENT/PLAN: Ms. Raygoza is a 82yo F with PMHx of end stage COPD, Chronic Respiratory failure ( now vent dependent), CHF, Cardiac Arrest (s/p AICD), Afib on Eliquis who presented with facial rash x 3 days admitted for cellulitis # Impetigo w/ Cellulitis - improving - Day 9 of Vancomycin + Ceftriaxone - Pt is much improved - Can switch to Keflex 500mg BID x 7 days and d.c Discussed w/ Dr Mingo Camarillo MD - PGY1 - Infectious DIsease Visit type - Emergency Visit Emergency Visit: No - New Patient This patient is new to me today: No - Critical Care Critical Care patient: No - Discharge Referral Referred to [facility] Med P.C.: No
[2017-05-01] MEDS ORDERED: PT OWN MED DRAWER 7, Y5N ONE ×2 (10:27→10:31)
[2017-05-01] MEDS: FERROUS SO4 325 MG TABLET (FP) PO SCH (10:37)
[2017-05-01] MEDS: ASCORBIC ACID 500 MG TABLET (FP) PO SCH (10:37)
[2017-05-01] MEDS: LACTOBACILLUS ACIDOPHILUS 1 EACH TAB (FP) PO SCH (10:37)
[2017-05-01] MEDS: AMINO ACIDS/PROTEIN HYDROLYS 30 ML LIQUID.PKT PO SCH (10:37)
[2017-05-01] MEDS: POTASSIUM CHLORIDE ORAL LIQUID 20 MEQ/15 ML PO SCH (10:37)
[2017-05-01] MEDS: MULTIVITAMINS (DAILY MVI) TABLET (FP) PO SCH (10:37)
[2017-05-01] MEDS: CEFTRIAXONE 1 GM in DEXTROSE 5%-WATER - 50 ML IVPB SCH (10:38)
[2017-05-01] MEDS: PANTOPRAZOLE 40 MG TABLET (FP) PO SCH (10:38)
[2017-05-01] MEDS: APIXABAN 2.5 MG TABLET PO SCH (10:38)
[2017-05-01] MEDS: NYSTATIN POWDER 100,000 UNITS/GM - 15 GM TOPICAL POWDER TP SCH (10:43)
[2017-05-01] MEDS: METOPROLOL TARTRATE 25 MG TABLET (FP) PO SCH (10:43)
[2017-05-01] MEDS: LORATADINE 10 MG TABLET PO SCH (10:44)
--- NOTE | 2017-05-01 11:03 | PN ---
Progress Note, Physician Chief Complaint: Facial cellulitis vs Impetigo History of Present Illness: NAD, no pain, -rash much improved -seen by ID -received 3 days of Vanco and 1 dose of cephalosporin, would d/c her on oral abx -Seen by Dermatology, who recommended topical hc 2.5% and bactroban -low grade temps - Current Medication List Current Medications: Active Medications Acetaminophen (Tylenol -) 650 mg PO Q6H PRN PRN Reason: FEVER OR PAIN Last Admin: 04/27/17 19:02 Dose: 650 mg Albuterol Sulfate (Ventolin 0.083% Nebulizer Soln -) 1 amp NEB Q4H PRN PRN Reason: SHORT OF BREATH/WHEEZING Last Admin: 04/30/17 05:35 Dose: 1 amp Amino Acids (Prosource No Carb Liquid Pkt) 30 ml PO BID@0800,1730 [facility] Last Admin: 05/01/17 10:37 Dose: 30 ml Apixaban (Eliquis -) 2.5 mg PO BID [facility] Last Admin: 05/01/17 10:38 Dose: 2.5 mg Artificial Tears (Artificial Tears) 1 drop OU BID PRN PRN Reason: DRY EYES Last Admin: 04/26/17 09:43 Dose: 1 drop Ascorbic Acid (Vitamin C -) 500 mg PO DAILY [facility] Last Admin: 05/01/17 10:37 Dose: 500 mg Atorvastatin Calcium (Lipitor -) 10 mg PO HS [facility] Last Admin: 04/30/17 23:04 Dose: 10 mg Docusate Sodium (Colace -) 300 mg PO HS [facility] Last Admin: 04/30/17 23:03 Dose: 300 mg Ferrous Sulfate (Feosol -) 325 mg PO BID [facility] Last Admin: 05/01/17 10:37 Dose: 325 mg Hydrocortisone (Anusol 2.5% Hc Cream -) 1 applic TP DAILY [facility] Last Admin: 05/01/17 10:43 Dose: 1 applic Vancomycin HCl 750 mg/ (Dextrose) 250 mls @ 166.667 mls/hr IVPB DAILY@1700 BREANN PRN Reason: Protocol Last Admin: 04/30/17 18:47 Dose: 166.667 mls/hr Sodium Chloride (Normal Saline -) 1,000 mls @ 80 mls/hr IV ASDIR [facility] Last Admin: 04/30/17 23:40 Dose: 80 mls/hr Iron Sucrose 200 mg/ Sodium (Chloride) 250 mls @ 250 mls/hr IVPB DAILY [facility] Stop: 05/02/17 10:59 Last Admin: 04/30/17 17:47 Dose: 250 mls/hr Ceftriaxone Sodium 1 gm/ (Dextrose) 50 mls @ 100 mls/hr IVPB DAILY [facility] Last Admin: 05/01/17 10:38 Dose: 100 mls/hr Lactobacillus Acidophilus (Bacid -) 1 tab PO DAILY [facility] Last Admin: 05/01/17 10:37 Dose: 1 tab Loratadine (Claritin -) 10 mg PO DAILY [facility] Last Admin: 05/01/17 10:44 Dose: 10 mg Metoprolol Tartrate (Lopressor -) 12.5 mg PO BID [facility] Last Admin: 05/01/17 10:43 Dose: 12.5 mg Mirtazapine (Remeron -) 15 mg PO HS [facility] Last Admin: 04/30/17 23:05 Dose: 15 mg Multivitamins/Minerals/Vitamin C (Tab-A-Vit -) 1 tab PO DAILY [facility] Last Admin: 05/01/17 10:37 Dose: 1 tab Mupirocin (Bactroban 2% Ointment -) 1 applic TP TID [facility] Last Admin: 05/01/17 06:47 Dose: 1 applic Nystatin (Nystop Powder -) 1 applic TP DAILY [facility] Last Admin: 05/01/17 10:43 Dose: 1 applic Pantoprazole Sodium (Protonix -) 40 mg PO DAILY [facility] Last Admin: 05/01/17 10:38 Dose: 40 mg Potassium Chloride (Potassium Chloride Oral Liquid) 20 meq PO DAILY [facility] Last Admin: 05/01/17 10:37 Dose: 20 meq - Objective Vital Signs: Vital Signs Temperature 98.8 F 05/01/17 09:48 Pulse Rate 65 05/01/17 09:48 Respiratory Rate 14 05/01/17 09:52 Blood Pressure 107/70 05/01/17 09:48 O2 Sat by Pulse Oximetry (%) 100 05/01/17 09:52 Constitutional: Yes: Well Nourished, No Distress, Calm Cardiovascular: Yes: Regular Rate and Rhythm Respiratory: Yes: Regular, Mechanically Ventilated Edema: No Peripheral Pulses WNL: Yes Integumentary: Yes: Rash Neurological: Yes: Alert, Oriented Psychiatric: Yes: Alert, Oriented Labs: CBC, BMP 04/30/17 06:50 04/30/17 06:50 INR, PTT INR 1.37 (0.82-1.09) H 04/23/17 01:00 Problem List - Problems (1) Fever Assessment/Plan: -secondary to infectious process -preliminary blood culture-repeat negative -tylenol for fever over 100.0 F -repeat labs in AM Code(s): R50.9 - FEVER, UNSPECIFIED (2) Sinus tachycardia Assessment/Plan: -improved -on metoprolol 12.5 mg po BID, hold for SBP below 100 -seen by cardiology -no further cardiac workup recommended Code(s): R00.0 - TACHYCARDIA, UNSPECIFIED (3) Functional quadriplegia Code(s): R53.2 - FUNCTIONAL QUADRIPLEGIA (4) Leukocytosis Assessment/Plan: -WBC improved-normalized -ID on board -IV abx -BC pending- preliminary negative -Sputum culture negative -wound culture shows Acetanobactor -repeat labs in AM Code(s): D72.829 - ELEVATED WHITE BLOOD CELL COUNT, UNSPECIFIED (5) Facial rash Assessment/Plan: -seen by ID and dermatology -cleanse face with gentle soap (castile soap), apply HC and bactroban -PO abx Code(s): R21 - RASH AND OTHER NONSPECIFIC SKIN ERUPTION (6) Chronic respiratory failure Assessment/Plan: -on mech vent -seen by pulmonary Code(s): J96.10 - CHRONIC RESPIRATORY FAILURE, UNSP W HYPOXIA OR HYPERCAPNIA Qualifiers: Respiratory failure complication: hypercapnia Qualified Code(s): J96.12 - Chronic respiratory failure with hypercapnia; J96.12 - Chronic respiratory failure with hypercapnia; J96.12 - Chronic respiratory failure with hypercapnia (7) Urinary retention Assessment/Plan: -Chronic -would go back to [facility] with Bhandari catheter Code(s): R33.9 - RETENTION OF URINE, UNSPECIFIED Assessment/Plan see problem list
[2017-05-01] MEDS: IRON SUCROSE INJECTION 200 MG in SODIUM CHLORIDE 240 ML IVPB SCH (11:39)
[2017-05-01 12:00] LABS: BASOPHIL 0.8 % (0-2.0); EOSINOPHIL 5.2 % (0-4.5); MCH 26.2 pg (25.7-33.7); MCHC 31.2 g/dl (32.0-36.0); MEAN CELL VOLUME 83.9 fl (80-96); MEAN PLT VOLUME 8.1 fl (7.5-11.1); NEUTROPHILS 70.6 % (42.8-82.8); PLATELET COUNT 207 K/MM3 (134-434); RDW 17.8 % (11.6-15.6); WHITE BLOOD COUNT 8.4 K/mm3 (4.0-10.0)
[2017-05-01 12:44] LABS: ALK PHOS 66 U/L (45-117); ANION GAP 4 (8-16); BILIRUBIN,TOTAL 0.1 mg/dL (0.2-1.0); CALCIUM 8.3 mg/dL (8.5-10.1); CO2 31 mmol/L (21-32); CREATININE 0.4 mg/dL (0.55-1.02); GLUCOSE,RANDOM 107 mg/dL (74-106); SGOT/AST 11 U/L (15-37); SGPT/ALT 7 U/L (12-78); TOT PROT 5.8 g/dl (6.4-8.2)
--- NOTE | 2017-05-01 13:10 | PN ---
Teaching Attending Note Name of Resident: Pao Camarillo ATTENDING PHYSICIAN STATEMENT I saw and evaluated the patient. I reviewed the resident's note and discussed the case with the resident. I agree with the resident's findings and plan as documented. SUBJECTIVE: Awake , alert no acute distress afebrile WBC WNL OBJECTIVE: facial erythema/ swelling resolved few rhonchi bilaterally abdomen soft, non tender no edema ASSESSMENT AND PLAN: Facial cellulitis- resolved Chronic respiratory failure Substitute keflex 500mg po bid x 7d
--- NOTE | 2017-05-01 13:34 | DS ---
Physical Examination Vital Signs: Vital Signs Temperature 98.8 F 05/01/17 12:42 Pulse Rate 67 05/01/17 12:42 Respiratory Rate 14 05/01/17 12:42 Blood Pressure 118/58 05/01/17 12:42 O2 Sat by Pulse Oximetry (%) 98 05/01/17 09:55 Constitutional: Yes: Well Nourished, No Distress, Calm Cardiovascular: Yes: Pulse Irregular Respiratory: Yes: Mechanically Ventilated Edema: No Peripheral Pulses WNL: Yes Integumentary: Yes: Rash (face) Neurological: Yes: Alert, Oriented Psychiatric: Yes: Alert, Oriented Labs: CBC, BMP 05/01/17 11:56 05/01/17 11:56 Discharge Summary Reason For Visit: CELLULITIS Current Active Problems Anemia (Acute) Cellulitis (Acute) Facial cellulitis (Acute) Facial rash (Acute) Mastoiditis (Acute) Renal insufficiency, mild (Acute) Sinus tachycardia (Acute) Urinary retention (Acute) Hospital Course: Patient came in to [facility] with facial rash thought to be cellulitis vs Impetigo. She was evaluated by ID and dermatology. She was treated with IV abx vancomycin for 3 days and ceftriaxone for 2 doses. He labs showed a drop in her H/H, Venofer was given knowing that she has history of iron deficiency anemia due to chronic bloods through her GI tract. She is on anticoagulation for her afib, which is needed because benefits outweighs risks. She will be discharged with indwelling lundberg catheter and PO abx and topical ointments for her face. Condition: Stable - Instructions Diet, Activity, Other Instructions: - wash face with castile soap and apply HC 2.5% and bactroban on the face -cephalexin as ordered for the facial rash -Patient to go to the OR with indwelling lundberg catheter [facility]position: [facility] - Home Medications Comprehensive Discharge Medication List: Ambulatory Orders Ascorbic Acid [Vitamin C -] 500 mg PO DAILY 10/19/16 Docusate Sodium 300 mg PO HS 10/19/16 Aa/Hydrolyzed Collagen, Whey [Lps 15-30 Liquid] 30 ml PO BID 01/08/17 Acetaminophen [Tylenol .Regular Strength -] 650 mg PO Q6H PRN #0 tablet Albuterol 0.083% Nebulizer Yady [Ventolin 0.083% Nebulizer Soln -] 1 amp NEB Q4H PRN #180 amp 03/20/17 Apixaban [Eliquis -] 2.5 mg PO BID tablet 03/20/17 Atorvastatin Ca [Lipitor] 10 mg PO HS #30 tablet 03/20/17 Ferrous Sulfate 325 mg PO BID #60 tab 03/20/17 Hypromellose 0.5% Opth Soln [Artificial Tears] 1 drop OU BID #1 bottle 03/20/17 Lactobacillus Acidophilus [Bacid -] 1 tab PO DAILY #30 tab 03/20/17 Loratadine [Claritin -] 10 mg PO DAILY #30 tablet 03/20/17 Mirtazapine [Remeron -] 15 mg PO HS #30 tablet 03/20/17 Multivitamins [Multivit ([facility] Formulary)] 1 tab PO DAILY #30 tab 03/20/17 Nystatin Powder [Nystop Powder -] 1 applic TP DAILY #1 applic 03/20/17 Pantoprazole Sodium [Protonix -] 40 mg PO DAILY #30 tab 03/20/17 Polyvinyl Alcohol [Artificial Tears] 1 drop OU BID PRN #1 bottle 03/20/17 Potassium Chloride Oral Soln [KCl Oral Solution] 20 meq PO DAILY #30 cup Amino Acids/Protein Hydrolys [Prosource No Carb Liquid Pkt] 30 ml PO BID@0800, 1730 packet 05/01/17 Cephalexin [Keflex] 500 mg PO BID #14 capsule 05/01/17 Hydrocortisone 2.5% Topical Cr [Anusol-Hc -] 1 applic TP DAILY tube 05/01/17 Metoprolol Tartrate [Lopressor -] 12.5 mg PO BID tablet 05/01/17 Mupirocin Ointment [Bactroban 2% Ointment -] 1 applic TP TID applic 05/01/17
[2017-05-01] MEDS ORDERED: FLU VACCINE QUAD 60 MCG/0.5 ML (MDV 17-18) IM ONE (14:15)
[2017-05-01 14:57] VITALS: BP 144/75; PULSE 75; TEMP 98.7
--- NOTE | 2017-05-01 15:08 | PN ---
Progress Note (short form) - Note Progress Note: AWAKE,ALERT ON VENT SUPPORT. 35% FIO2. NO ACUTE EVENTS OVERNIGHT. Intake & Output 04/28/17 04/29/17 04/30/17 05/01/17 23:59 23:59 23:59 23:59 Intake Total 1720 2720 1800 1490 Output Total 500 1065 1275 Balance 1720 2220 735 215 Last Vital Signs Temp Pulse Resp BP Pulse Ox 98.7 F 75 14 144/75 96 05/01/17 14:54 05/01/17 14:54 05/01/17 14:54 05/01/17 14:54 05/01/17 10:00 Active Medications Acetaminophen (Tylenol -) 650 mg PO Q6H PRN PRN Reason: FEVER OR PAIN Last Admin: 04/27/17 19:02 Dose: 650 mg Albuterol Sulfate (Ventolin 0.083% Nebulizer Soln -) 1 amp NEB Q4H PRN PRN Reason: SHORT OF BREATH/WHEEZING Last Admin: 04/30/17 05:35 Dose: 1 amp Amino Acids (Prosource No Carb Liquid Pkt) 30 ml PO BID@0800,1730 [facility] Last Admin: 05/01/17 10:37 Dose: 30 ml Apixaban (Eliquis -) 2.5 mg PO BID [facility] Last Admin: 05/01/17 10:38 Dose: 2.5 mg Artificial Tears (Artificial Tears) 1 drop OU BID PRN PRN Reason: DRY EYES Last Admin: 04/26/17 09:43 Dose: 1 drop Ascorbic Acid (Vitamin C -) 500 mg PO DAILY [facility] Last Admin: 05/01/17 10:37 Dose: 500 mg Atorvastatin Calcium (Lipitor -) 10 mg PO HS [facility] Last Admin: 04/30/17 23:04 Dose: 10 mg Docusate Sodium (Colace -) 300 mg PO HS [facility] Last Admin: 04/30/17 23:03 Dose: 300 mg Ferrous Sulfate (Feosol -) 325 mg PO BID [facility] Last Admin: 05/01/17 10:37 Dose: 325 mg Hydrocortisone (Anusol 2.5% Hc Cream -) 1 applic TP DAILY [facility] Last Admin: 05/01/17 10:43 Dose: 1 applic Vancomycin HCl 750 mg/ (Dextrose) 250 mls @ 166.667 mls/hr IVPB DAILY@1700 [facility] PRN Reason: Protocol Last Admin: 04/30/17 18:47 Dose: 166.667 mls/hr Sodium Chloride (Normal Saline -) 1,000 mls @ 80 mls/hr IV ASDIR [facility] Last Admin: 04/30/17 23:40 Dose: 80 mls/hr Iron Sucrose 200 mg/ Sodium (Chloride) 250 mls @ 250 mls/hr IVPB DAILY [facility] Stop: 05/02/17 10:59 Last Admin: 05/01/17 11:39 Dose: 250 mls/hr Ceftriaxone Sodium 1 gm/ (Dextrose) 50 mls @ 100 mls/hr IVPB DAILY [facility] Last Admin: 05/01/17 10:38 Dose: 100 mls/hr Lactobacillus Acidophilus (Bacid -) 1 tab PO DAILY [facility] Last Admin: 05/01/17 10:37 Dose: 1 tab Loratadine (Claritin -) 10 mg PO DAILY [facility] Last Admin: 05/01/17 10:44 Dose: 10 mg Metoprolol Tartrate (Lopressor -) 12.5 mg PO BID [facility] Last Admin: 05/01/17 10:43 Dose: 12.5 mg Mirtazapine (Remeron -) 15 mg PO HS [facility] Last Admin: 04/30/17 23:05 Dose: 15 mg Multivitamins/Minerals/Vitamin C (Tab-A-Vit -) 1 tab PO DAILY [facility] Last Admin: 05/01/17 10:37 Dose: 1 tab Mupirocin (Bactroban 2% Ointment -) 1 applic TP TID [facility] Last Admin: 05/01/17 13:08 Dose: 1 applic Nystatin (Nystop Powder -) 1 applic TP DAILY [facility] Last Admin: 05/01/17 10:43 Dose: 1 applic Pantoprazole Sodium (Protonix -) 40 mg PO DAILY [facility] Last Admin: 05/01/17 10:38 Dose: 40 mg Potassium Chloride (Potassium Chloride Oral Liquid) 20 meq PO DAILY [facility] Last Admin: 05/01/17 10:37 Dose: 20 meq Constitutional: Yes: NAD, Calm Eyes: Yes: WNL HENT: Yes: WNL Neck: Yes: Supple (TRACH) Cardiovascular: Yes: Pulse Irregular, S1, S2 Respiratory: Yes: Rhonchi (FEW SCATTERED RHONCHI) Gastrointestinal: Yes: Normal Bowel Sounds, Soft Extremities: Yes: WNL Edema: Yes Edema: LLE: Trace, RLE: Trace Labs: Laboratory Results - last 24 hr 05/01/17 05/01/17 11:56 11:56 WBC 8.4 RBC 3.60 Hgb 9.4 L Hct 30.2 L MCV 83.9 MCH 26.2 MCHC 31.2 L RDW 17.8 H Plt Count 207 MPV 8.1 Neutrophils % 70.6 Lymphocytes % 14.4 D Monocytes % 9.0 Eosinophils % 5.2 H Basophils % 0.8 Sodium 142 Potassium 3.7 Chloride 107 Carbon Dioxide 31 Anion Gap 4 L BUN 10 Creatinine 0.4 L Creat Clearance w eGFR > 60 Random Glucose 107 H D Calcium 8.3 L Total Bilirubin 0.1 L D AST 11 L ALT 7 L Alkaline Phosphatase 66 D Total Protein 5.8 L Albumin 2.0 L Problem List - Problems (1) Anemia Code(s): D64.9 - ANEMIA, UNSPECIFIED Qualifiers: Anemia type: iron deficiency (2) Cellulitis Code(s): L03.90 - CELLULITIS, UNSPECIFIED (3) AICD (automatic cardioverter/defibrillator) present Code(s): Z95.810 - PRESENCE OF AUTOMATIC (IMPLANTABLE) CARDIAC DEFIBRILLATOR (4) COPD (chronic obstructive pulmonary disease) Code(s): J44.9 - CHRONIC OBSTRUCTIVE PULMONARY DISEASE, UNSPECIFIED Qualifiers : COPD type: unspecified COPD Qualified Code(s): J44.9 - Chronic obstructive pulmonary disease, unspecified; J44.9 - Chronic obstructive pulmonary disease, unspecified; J44.9 - Chronic obstructive pulmonary disease, unspecified; J44.9 - Chronic obstructive pulmonary disease, unspecified (5) Chronic respiratory failure Code(s): J96.10 - CHRONIC RESPIRATORY FAILURE, UNSP W HYPOXIA OR HYPERCAPNIA Qualifiers: Respiratory failure complication: hypercapnia Qualified Code(s): J96.12 - Chronic respiratory failure with hypercapnia; J96.12 - Chronic respiratory failure with hypercapnia; J96.12 - Chronic respiratory failure with hypercapnia (6) HTN (hypertension) Code(s): I10 - ESSENTIAL (PRIMARY) HYPERTENSION (7) Hyperlipemia Code(s): E78.5 - HYPERLIPIDEMIA, UNSPECIFIED (8) Respirator dependence Code(s): Z99.11 - DEPENDENCE ON RESPIRATOR [VENTILATOR] STATUS Assessment/Plan IMP CHRONIC RESPIRATORY FAILURE COPD AFIB IMPETIGO BILATERAL FACIAL CELLULITIS improving ASHD HLD HTN PLAN VENT SUPPORT INHALED BRONCHODILATORS D/C TO SNF DR [facility]
[2017-05-01] MEDS: VANCOMYCIN 750 MG in DEXTROSE 5%-WATER - 250 ML IVPB SCH (19:05)
== END 2017-05-01 17:20 | DRG 602 ==
LOC: JER 23:41 → JERBED 04-23 03:07 → J5S 04-23 06:45
PROVIDERS: ADMIT Family Medicine; ATTEND Family Medicine
PROC: 5A1955Z Respiratory Ventilation, Greater than 96 Consecutive Hours (ICD-10-PCS; principal; 2017-04-23)
DX: L03.213 Periorbital cellulitis (principal); R53.2 Functional quadriplegia; J96.12 Chronic respiratory failure with hypercapnia; Z99.11 Dependence on respirator [ventilator] status; L03.211 Cellulitis of face; Z95.810 Presence of automatic (implantable) cardiac defibrillator; J44.9 Chronic obstructive pulmonary disease, unspecified; I48.0 Paroxysmal atrial fibrillation; N28.9 Disorder of kidney and ureter, unspecified; D64.9 Anemia, unspecified; I10 Essential (primary) hypertension; E78.5 Hyperlipidemia, unspecified; I25.10 Atherosclerotic heart disease of native coronary artery without angina pectoris; R00.0 Tachycardia, unspecified; D72.829 Elevated white blood cell count, unspecified; R21 Rash and other nonspecific skin eruption; R33.9 Retention of urine, unspecified; L01.00 Impetigo, unspecified; R50.9 Fever, unspecified; K21.9 Gastro-esophageal reflux disease without esophagitis; Z93.0 Tracheostomy status; H70.90 Unspecified mastoiditis, unspecified ear
CPT/HCPCS: 36415; 70486-TC; 71010-TC; 80053; 84439; 84443; 84484; 85025; 85027; 85610; 86850; 86900; 86901; 87040; 87070; 87086; 87186; 87205; 87324; 87449; 90688; 93005; 93010; 94002; 94640; 99284-25; G0480; J1756

== ENCOUNTER 2017-05-27 12:54 | Inpatient (IN) | payer OTHER ==
[2017-05-27] MEDS ORDERED: SODIUM CHLORIDE 1,000 ML IV STA (13:12)
--- NOTE | 2017-05-27 13:24 | PDOC ---
History of Present Illness - General Stated Complaint: WOUND Time Seen by Provider: 05/27/17 13:04 - History of Present Illness Initial Comments: 05/27/17 13:23 The patient is an 82 yo f w/ PMH COPD w/ chonic respiratory failure s/p trach, CHF, Afib on eliquis sent from [facility] due to increased redness and swelling of her face noticed by her son. Patient had a recent admission ( discharged 05/01) for MRSA face cellulituis and was discharged on PO abx. Patient is alert and nods in response to questions, but is nonverbal at baseline. Patient denies fevers, chills, pain in her face, chest pain, abdominal pain or shortness of breath. Past History - Past Medical History Allergies/Adverse Reactions: Allergies Allergy/AdvReac Type Severity Reaction Status Date / Time doxycycline Allergy Intermediate Verified 04/22/17 23:48 CLAMS Allergy Intermediate Hives Uncoded 04/22/17 23:48 Home Medications: Ambulatory Orders Docusate Sodium 300 mg PO HS 10/19/16 Albuterol 0.083% Nebulizer Yady [Ventolin 0.083% Nebulizer Soln -] 1 amp NEB Q4H PRN #180 amp 03/20/17 Apixaban [Eliquis -] 2.5 mg PO BID tablet 03/20/17 Atorvastatin Ca [Lipitor] 10 mg PO HS #30 tablet 03/20/17 Ferrous Sulfate 325 mg PO BID #60 tab 03/20/17 Lactobacillus Acidophilus [Bacid -] 1 tab PO DAILY #30 tab 03/20/17 Loratadine [Claritin -] 10 mg PO DAILY #30 tablet 03/20/17 Mirtazapine [Remeron -] 15 mg PO HS #30 tablet 03/20/17 Multivitamins [Multivit ([facility] Formulary)] 1 tab PO DAILY #30 tab 03/20/17 Nystatin Powder [Nystop Powder -] 1 applic TP DAILY #1 applic 03/20/17 Pantoprazole Sodium [Protonix -] 40 mg PO DAILY #30 tab 03/20/17 Metoprolol Tartrate [Lopressor -] 12.5 mg PO BID tablet 05/01/17 Mupirocin Ointment [Bactroban 2% Ointment -] 1 applic TP TID applic 05/01/17 Ascorbic Acid/Ascorbate Sodium [Vitamin C 500 mg Wafer] 500 mg PO DAILY Hypromellose 0.5% Opth Soln [Artificial Tears] 1 drop OU DAILY 05/27/17 Anemia: Yes Asthma: No Cancer: No Cardiac Disorders: Yes (CARDIAC ARREST 1998, afib) CVA: No COPD: Yes CHF: No Dementia: Yes (SHORT TERM MEMORY LOSS) Diabetes: No GI Disorders: No Disorders: No HTN: Yes Hypercholesterolemia: Yes Liver Disease: No Seizures: No Thyroid Disease: No - Surgical History Abdominal Surgery: No Appendectomy: No Cardiac Surgery: Yes (DEFIBRILLATOR) Cholecystectomy: No Lung Surgery: No Neurologic Surgery: No Orthopedic Surgery: No - Immunization History Immunization Up to Date: Yes - Suicide/Smoking/Psychosocial Hx Smoking History: Unknown if ever smoked Have you smoked in the past 12 months: No Number of Cigarettes Smoked Daily: 0 Cigars Per Day: 0 Hx Alcohol Use: No Drug/Substance Use Hx: No Substance Use Type: None Review of Systems - Review of Systems Able to Perform ROS?: Yes (patient nonverbal at BL) Is the patient limited Korean proficient: No Constitutional: No: Chills, Fever HEENTM: No: Eye Pain, Blurred Vision, Nose Pain Respiratory: No: Cough, Shortness of Breath Cardiac (ROS): No: Chest Pain ABD/GI: No: Diarrhea Musculoskeletal: No: Joint Pain Integumentary: Yes: Erythema (and swelling over whole face) Neurological: No: Headache, Numbness, Tingling *Physical Exam - Vital Signs Last Vital Signs Temp Pulse Resp BP Pulse Ox 19 05/27/17 13:13 - Physical Exam General Appearance: Yes: Appropriately Dressed, Thin. No: Apparent Distress HEENT: positive: CECILLE, Other (face is erythematous, swollen and warm to the touch, but nontender. Skin on face is dry and flaking.) Neck: positive: Trachea midline, Other (tracheostomy clean, dry, intact with cuff in place). negative: Tender Respiratory/Chest: positive: Wheezing (end expiratory wheezing), Other (coarse breath sounds secondary to patient being chronically vent dependant). negative : Chest Tender, Respiratory Distress, Accessory Muscle Use Cardiovascular: positive: Regular Rhythm, Regular Rate, S1, S2. negative: Edema , JVD, Murmur, Gallop/S3, Gallop/S4 Gastrointestinal/Abdominal: positive: Normal Bowel Sounds, Flat, Soft. negative : Tender Musculoskeletal: positive: Normal Inspection Extremity: positive: Normal Inspection, Other (lower extremities contracted) Integumentary: positive: Dry, Warm, Other (area of erythematous, swollen, flaking skin over whole face and eyes with increased warmth) Neurologic: positive: Alert, Other (contracted lower limbs) ED Treatment Course - LABORATORY CBC & Chemistry Diagram: 05/28/17 06:25 05/28/17 06:25 Medical Decision Making - Medical Decision Making 05/27/17 13:50 The patient is an 82 yo f w/ PMH CHF, afib on eliquis, COPD send to ED from SNF for recurrent face cellulitis. Patient was recently admitted to [facility] approx 1 month ago, treated with vancomycin and ceftriaxone, and discharged on cephalexin. Facial cultures grew Acinobacter Baumanii sensitive to ceftriaxone. Patient came into the ED hypotensive (90's/40's) with an erythematous rash on her face. Per the patient's family, the patient's blood pressure runs low at baseline, but they are unsure of the exact numbers. Patien's vital signs do not meet SIRS criteria at this time. -CBC, CMP -Blood, urine cultures -CXR -Lactic acid -coags -EKG -Vancomycin -ceftriaxone -NS 1L bolus 05/27/17 14:26 -on reassessment, IVF currently running, repeat BP 110/49 05/27/17 16:01 -contacted Dr. Cook, who agreed to admit the patient under his service. -will consult Dr. Simon and Dr. Massey at Dr. Cook's request. *DC/Admit/Observation/Transfer Diagnosis at time of Disposition: Cellulitis Qualifiers: Site of cellulitis: face Qualified Code(s): L03.211 - Cellulitis of face - Discharge Dispostion Admit: Yes
--- NOTE | 2017-05-27 13:26 | PDOC ---
Attending Attestation - HPI HPI: 05/27/17 13:32 Patient is a 82 year old female from [facility], who presents to the ED with complaints of increased redness of face that began this morning. As per [place] staff patient has been experiencing increased facial redness since early this morning. Staff reports swelling and discharge of eyes secondary to facial redness. NH staff reports patient experiencing low grade fever of 99.9 and lowered blood pressure at 87/45 secondary to facial redness. She denies chest pain, shortness of breath, headache and dizziness. She denies fever, chills, nausea, vomit, diarrhea and constipation. She denies dysuria, frequency, urgency and hematuria. PMH: Anemia, atrial fibrillation, CHF, cardiac arrest (1998), COPD, s/p trach, vent dependent, UTIs and GI bleeds, CVA, Dementia, Parkinson's, GERD Allergies: Doxycycline, Clams Past surgical history: AICD (Medtronic, implanted following cardiac arrest), Cataract Removal (2011) Social history: [facility]. No smoking. No alcohol. No illicit drugs. PCP: Dr. Kate. 05/27/17 13:32 - Physicial Exam PE: 05/27/17 13:32 GENERAL: Awake, alert, and fully oriented, in no acute distress HEAD: +Diffuse facial redness. +scaly and flaking facial skin. No signs of trauma EYES: PERRLA, EOMI, sclera anicteric, conjunctiva clear ENT: Auricles normal inspection, nares patent, Moist mucosa NECK: +Trach is clean, dry, and intact. Normal ROM, supple, no lymphadenopathy, JVD, or masses LUNGS: +Expiratory wheezes bilaterally. +Coarse breathe sounds. Breath sounds equal, clear to auscultation bilaterally. No wheezes, and no crackles HEART: Regular rate and rhythm, normal S1 and S2, no murmurs, rubs or gallops ABDOMEN: Soft, nontender, normoactive bowel sounds. No guarding, no rebound. No masses EXTREMITIES: +Extremities thin. +Lower extremities contracted. Normal range of motion, no edema. No clubbing or cyanosis. No cords, erythema, or tenderness NEUROLOGICAL: +Awake and alert. Normal speech SKIN: Warm, Dry, normal turgor, no rashes or lesions noted - Medical Decision Making 05/27/17 13:32 Documentation prepared by Man Caicedo, acting as clinical specialist medical device for Britt Clancy MD. <Man Caicedo - Last Filed: 05/27/17 13:32> - Resident Resident Name: Adan Figueroa - ED Attending Attestation I have performed the following: I have examined & evaluated the patient, The case was reviewed & discussed with the resident, I agree w/resident's findings & plan, Exceptions are as noted - Medical Decision Making 05/27/17 13:14 82 yo F with /o anemia, afib, htn chf chronic trach? peg ( recurrent gi bleeds and uti) here from <Britt Clancy - Last Filed: 05/27/17 16:07> Heart Score/ECG Review #1 General ECG Interpretation: Sinus Rhythm, Normal Rate (61), Normal Intervals, No acute ischemic changes <Britt Clancy - Last Filed: 05/27/17 16:07>
[2017-05-27 14:02] LABS: EOSINOPHIL 3.2 % (0-4.5); MCH 26.8 pg (25.7-33.7); MCHC 32.1 g/dl (32.0-36.0); MEAN CELL VOLUME 83.6 fl (80-96); MEAN PLT VOLUME 8.2 fl (7.5-11.1); NEUTROPHILS 75.7 % (42.8-82.8); PLATELET COUNT 186 K/MM3 (134-434); RDW 16.8 % (11.6-15.6); WHITE BLOOD COUNT 8.8 K/mm3 (4.0-10.0)
[2017-05-27] MEDS ORDERED: VANCOMYCIN 1,000 MG in DEXTROSE 5%-WATER - 250 ML IVPB ONE (14:12)
[2017-05-27] MEDS ORDERED: CEFTRIAXONE 1 GM in DEXTROSE 5%-WATER - 50 ML IVPB ONE (14:12)
[2017-05-27 14:32] LABS: ANION GAP 8 (8-16); CALCIUM 8.7 mg/dL (8.5-10.1); CO2 28 mmol/L (21-32); CREATININE 0.7 mg/dL (0.55-1.02); GLUCOSE,RANDOM 110 mg/dL (74-106); SGOT/AST 11 U/L (15-37); SGPT/ALT 12 U/L (12-78)
[2017-05-27 14:35] LABS: ALK PHOS 89 U/L (45-117); BILIRUBIN,TOTAL 0.2 mg/dL (0.2-1.0); CPK 28 IU/L (26-192); TROPONIN I < 0.02 ng/ml (0.00-0.05)
[2017-05-27] MEDS ORDERED: CEFTRIAXONE 50 ML ONE ×2 (14:38→14:39)
[2017-05-27] MEDS ORDERED: VANCOMYCIN 1 GRAM (PRE-DOCKED) 250 ML IVPB ONE (14:38)
[2017-05-27 14:46] VITALS: BMI 53.8
[2017-05-27 14:52] LABS: INR 1.27 (0.82-1.09); PROTHROMBIN TIME (PATIENT) 14.4 SEC (9.98-11.88)
[2017-05-27 14:55] LABS: ACTIVATED PTT 28.9 SECONDS (26.9-34.4)
[2017-05-27] MEDS ORDERED: ACETAMINOPHEN 325 MG TABLET (FP) PO PRN (15:47)
--- NOTE | 2017-05-27 15:52 | PN ---
Progress Note (short form) - Note Progress Note: PULMONARY CONSULTATION DICTATED 05/27/17 IMP CHRONIC RESPIRATORY FAILURE COPD FACIAL CELLULITIS HYPOTENSION AFIB S/P AICD H/O CVA H/O CARDIAC ARREST ANEMIA PLAN IV ANTIBIOTICS IVF INHALED BRONCHODILATORS CULTURES CONTINUE VENT SUPPORT ON AC MODE DR CABRERA Problem List - Problems (1) Anemia Code(s): D64.9 - ANEMIA, UNSPECIFIED (2) Cellulitis Code(s): L03.90 - CELLULITIS, UNSPECIFIED Qualifiers: Site of cellulitis: face Qualified Code(s): L03.211 - Cellulitis of face; L03.211 - Cellulitis of face (3) AICD (automatic cardioverter/defibrillator) present Code(s): Z95.810 - PRESENCE OF AUTOMATIC (IMPLANTABLE) CARDIAC DEFIBRILLATOR (4) Atelectasis Code(s): J98.11 - ATELECTASIS (5) COPD (chronic obstructive pulmonary disease) Code(s): J44.9 - CHRONIC OBSTRUCTIVE PULMONARY DISEASE, UNSPECIFIED (6) Chronic respiratory failure Code(s): J96.10 - CHRONIC RESPIRATORY FAILURE, UNSP W HYPOXIA OR HYPERCAPNIA (7) Facial cellulitis Code(s): L03.211 - CELLULITIS OF FACE (8) Fever Code(s): R50.9 - FEVER, UNSPECIFIED (9) Functional quadriplegia Code(s): R53.2 - FUNCTIONAL QUADRIPLEGIA (10) HTN (hypertension) Code(s): I10 - ESSENTIAL (PRIMARY) HYPERTENSION (11) Hypotension Code(s): I95.9 - HYPOTENSION, UNSPECIFIED (12) Respirator dependence Code(s): Z99.11 - DEPENDENCE ON RESPIRATOR [VENTILATOR] STATUS
[2017-05-27 16:24] LABS: URINE APPEARANCE CLOUDY; URINE BILIRUBIN NEGATIVE (NEGATIVE); URINE BLOOD NEGATIVE (NEGATIVE); URINE COLOR AMBER; URINE GLUCOSE (UA) NEGATIVE (NEGATIVE); URINE KETONE NEGATIVE (NEGATIVE); URINE NITRITE NEGATIVE (NEGATIVE); URINE PROTEIN NEGATIVE (NEGATIVE); URINE UROBILINOGEN NEGATIVE mg/dL (0.2-1.0)
[2017-05-27] MEDS: D5-1/2NS+20 MEQ KCL - 1,000 ML IV SCH (16:51)
--- NOTE | 2017-05-27 16:57 | CONS ---
DATE OF CONSULTATION: 05/27/2017 REFERRING PHYSICIAN: Jacky Cook MD The patient is an 82-year-old white female known to me from previous hospitalizations as well as longterm followup, with chronic respiratory failure secondary to COPD, status post trach, a history of cardiac arrest in 1998, atrial fibrillation, anemia, CHF, UTIs, GI bleeds, CVA, dementia, Parkinson's, GERD, recently hospitalized at [facility] secondary to facial cellulitis, treated with IV antibiotics, with resolution of rash, transferred back to the longterm, was doing well until early today, when nursing staff noticed that she had increasing facial redness since early this morning. The patient also noticed some swelling and discharge from the eyes secondary to the facial redness. She was also noted to have a low-grade fever of 99.1 and BP of 87.5. She was subsequently transferred to the medical ER for further evaluation. In the ER, she was treated with IV fluid, with improvement of blood pressure. She was also administered broad-spectrum antibiotics, vancomycin and ceftriaxone. The patient's past medical history, again, includes atrial fibrillation, not on AC secondary to GI bleeds, history of CHF, status post cardiac arrest in 1998, chronic respiratory failure, status post trach, COPD, UTIs, GI bleeds, CVA, dementia, Parkinson's, GERD, and anemia. REVIEW OF SYSTEMS: Unable to obtain. Current medications include so far ceftriaxone and vancomycin. The medications prior to admission include Colace 300 mg at hour of sleep, albuterol via neb q.4 hours p.r.n., Eliquis 2.5 b.i.d., Lipitor 10 at hour of sleep, ferrous sulfate 325 b.i.d., Bacid, Claritin, Remeron, and . PHYSICAL EXAMINATION: General: The patient is an elderly white female, thin, well developed, awake, alert, on vent support, in no acute respiratory distress. Vital Signs: She is currently afebrile. Blood pressure is 93/46. Respiratory rate 20. O2 saturation is 100% on assist control mode. HEENT: Normocephalic, atraumatic. There is facial generalized rash, diffuse facial redness, flakiness, and scaly facial skin, mild edema, mild mouth swelling. Neck: Supple. Trach is patent. Heart: Irregularly irregular. Normal S1, S2. Chest: She has scattered bilateral wheezes. Abdomen: Soft. Bowel sounds positive. Extremities: No cyanosis, edema. LABORATORIES: WBC is 8.8, hemoglobin 10.8, hematocrit 33.8, with a platelet count of 186,000. BUN 26, creatinine 0.7. Chest x-ray: There is no extensive pulmonary pleural change in the left hemithorax, no change from previous exam April 27, 2017. IMPRESSION: 1. Facial cellulitis. 2. Chronic respiratory failure, on ventilatory support. 3. History of chronic obstructive pulmonary disease. 4. History of cardiac arrest. 5. Atrial fibrillation. 6. Status post cerebrovascular accident. 7. Hypotension. PLAN: Broad-spectrum antibiotics, pancultures, IV fluids, continue vent support on assist control mode, AC for atrial fibrillation. Monitor electrolytes. ELLIS CABRERA M.D. [id number]
[2017-05-27 19:52] LABS: URINE LEUK ESTERASE 2+ (NEGATIVE)
[2017-05-27] MEDS ORDERED: DOCUSATE SODIUM 100 MG CAPSULE (FP) PO ONE (21:09)
[2017-05-27] MEDS ORDERED: FERROUS SO4 325 MG TABLET (FP) ONE ×2 (21:09→21:10)
[2017-05-27] MEDS ORDERED: MIRTAZAPINE 15 MG TABLET (FP) ONE (21:10)
[2017-05-27] MEDS: MUPIROCIN 2% TOPICAL OINTMENT 22 GM TUBE TP SCH (21:46)
[2017-05-27] MEDS: DOCUSATE SODIUM 100 MG CAPSULE (FP) PO SCH (21:46)
[2017-05-27] MEDS: APIXABAN 2.5 MG TABLET PO SCH (21:46)
[2017-05-27] MEDS: METOPROLOL TARTRATE 25 MG TABLET (FP) PO SCH (21:47)
[2017-05-27] MEDS: MIRTAZAPINE 15 MG TABLET (FP) PO SCH (21:47)
[2017-05-27] MEDS: ATORVASTATIN CA 10 MG TABLET (FP) PO SCH (21:47)
[2017-05-27] MEDS: FERROUS SO4 325 MG TABLET (FP) PO SCH (21:47)
[2017-05-27 23:08] LABS: URINE RBC 0; URINE WBC 12
[2017-05-27 23:11] LABS: CALCIUM OXALATE CRYSTALS FEW /hpf (NONE SEEN); YEAST FEW
[2017-05-28] MEDS: D5-1/2NS+20 MEQ KCL - 1,000 ML IV SCH ×2 (00:55→16:36)
[2017-05-28] MEDS: MUPIROCIN 2% TOPICAL OINTMENT 22 GM TUBE TP SCH ×3 (06:59→22:33)
[2017-05-28 07:20] LABS: BASOPHIL 0.8 % (0-2.0); EOSINOPHIL 4.1 % (0-4.5); MCH 26.7 pg (25.7-33.7); MCHC 31.8 g/dl (32.0-36.0); MEAN PLT VOLUME 8.9 fl (7.5-11.1); NEUTROPHILS 77.2 % (42.8-82.8); PLATELET COUNT 163 K/MM3 (134-434); RDW 16.7 % (11.6-15.6)
[2017-05-28 07:45] LABS: ALBUMIN 2.8 g/dl (3.4-5.0); ANION GAP 7 (8-16); BILIRUBIN,TOTAL 0.2 mg/dL (0.2-1.0); CALCIUM 8.4 mg/dL (8.5-10.1); CO2 28 mmol/L (21-32); CREATININE 0.5 mg/dL (0.55-1.02); GLUCOSE,RANDOM 97 mg/dL (74-106); SGOT/AST 9 U/L (15-37); SGPT/ALT 11 U/L (12-78); TOT PROT 6.4 g/dl (6.4-8.2)
[2017-05-28 07:46] LABS: ALK PHOS 78 U/L (45-117)
--- NOTE | 2017-05-28 10:23 | HP ---
Admitting History and Physical - Primary Care Physician PCP: Jacky Cook - Admission Chief Complaint: facial swelling History of Present Illness: Patient is a 82 year old female from [facility], who presents to the ED with complaints of increased redness of face that began this morning. As per [place] staff patient has been experiencing increased facial redness since early this morning. Staff reports swelling and discharge of eyes secondary to facial redness. NH staff reports patient experiencing low grade fever of 99.9 and lowered blood pressure at 87/45 secondary to facial redness. She denies chest pain, shortness of breath, headache and dizziness. She denies fever, chills, nausea, vomit, diarrhea and constipation. She denies dysuria, frequency, urgency and hematuria. PMH: Anemia, atrial fibrillation, CHF, cardiac arrest (1998), COPD, s/p trach, vent dependent, UTIs and GI bleeds, CVA, Dementia, Parkinson's, GERD Allergies: Doxycycline, Clams Past surgical history: AICD (Medtronic, implanted following cardiac arrest), Cataract Removal (2011) Social history: [facility]. No smoking. No alcohol. No illicit drugs. PCP: Dr. Kate. History Source: Transfer Record Limitations to Obtaining History: No Limitations - Past Medical History CEMENTER HAND: Yes: CVA, Dementia, Parkinson's Cardiovascular: Yes: AFIB (Paroxysmal), CHF, HTN, Hyperlipdemia, Other (h/o cardiac arrest s/p AICD - Single lead) Pulmonary: Yes: COPD, Other (respiratory failure) Gastrointestinal: Yes: GERD Heme/Onc: Yes: Anemia - Past Surgical History Past Surgical History: Yes: AICD (Medtronic, implanted following cardiac arrest) , Cataract Removal (2011) - Advance Directives Advance Directives: Yes: Living Will, Health Care Proxy, DNR - Smoking History Smoking history: Unknown if ever smoked Have you smoked in the past 12 months: No Aproximately how many cigarettes per day: 0 - Alcohol/Substance Use Hx Alcohol Use: No - Social History History of Recent Travel: No Home Medications - Allergies Allergies/Adverse Reactions: Allergies Allergy/AdvReac Type Severity Reaction Status Date / Time doxycycline Allergy Intermediate Verified 04/22/17 23:48 CLAMS Allergy Intermediate Hives Uncoded 04/22/17 23:48 - Home Medications Home Medications: Ambulatory Orders Docusate Sodium 300 mg PO HS 10/19/16 Albuterol 0.083% Nebulizer Yady [Ventolin 0.083% Nebulizer Soln -] 1 amp NEB Q4H PRN #180 amp 03/20/17 Apixaban [Eliquis -] 2.5 mg PO BID tablet 03/20/17 Atorvastatin Ca [Lipitor] 10 mg PO HS #30 tablet 03/20/17 Ferrous Sulfate 325 mg PO BID #60 tab 03/20/17 Lactobacillus Acidophilus [Bacid -] 1 tab PO DAILY #30 tab 03/20/17 Loratadine [Claritin -] 10 mg PO DAILY #30 tablet 03/20/17 Mirtazapine [Remeron -] 15 mg PO HS #30 tablet 03/20/17 Multivitamins [Multivit ([facility] Formulary)] 1 tab PO DAILY #30 tab 03/20/17 Nystatin Powder [Nystop Powder -] 1 applic TP DAILY #1 applic 03/20/17 Pantoprazole Sodium [Protonix -] 40 mg PO DAILY #30 tab 03/20/17 Metoprolol Tartrate [Lopressor -] 12.5 mg PO BID tablet 05/01/17 Mupirocin Ointment [Bactroban 2% Ointment -] 1 applic TP TID applic 05/01/17 Ascorbic Acid/Ascorbate Sodium [Vitamin C 500 mg Wafer] 500 mg PO DAILY Hypromellose 0.5% Opth Soln [Artificial Tears] 1 drop OU DAILY 05/27/17 Review of Systems - Review of Systems Constitutional: reports: No Symptoms Eyes: reports: No Symptoms HENT: reports: No Symptoms Neck: reports: No Symptoms Cardiovascular: reports: No Symptoms Respiratory: reports: No Symptoms Gastrointestinal: reports: No Symptoms Genitourinary: reports: No Symptoms Breasts: reports: No Symptoms Reported Musculoskeletal: reports: No Symptoms Integumentary: reports: Erythema, Rash Neurological: reports: No Symptoms Endocrine: reports: No Symptoms Hematology/Lymphatic: reports: No Symptoms Psychiatric: reports: No Symptoms Pain Intensity: 0 Physical Examination Vital Signs: Vital Signs Temperature 98.9 F 05/28/17 06:00 Pulse Rate 68 05/28/17 06:00 Respiratory Rate 14 05/28/17 06:30 Blood Pressure 105/57 05/28/17 06:00 O2 Sat by Pulse Oximetry (%) 100 05/28/17 01:30 Findings/Remarks: NAD, in bed eating breakfast Constitutional: Yes: Well Nourished, No Distress, Calm Cardiovascular: Yes: Regular Rate and Rhythm Respiratory: Yes: Regular Gastrointestinal: Yes: Normal Bowel Sounds Musculoskeletal: Yes: WNL Extremities: Yes: WNL Edema: Yes (facial) Peripheral Pulses WNL: Yes Integumentary: Yes: Erythema (facial), Rash Wound/Incision: Yes: Clean/Dry Neurological: Yes: Alert, Oriented Psychiatric: Yes: Alert, Oriented Labs: CBC, BMP 05/28/17 06:25 05/28/17 06:25 Problem List - Problems (1) Chronic respiratory failure Assessment/Plan: -on mechanical vent -seen by pulmonary - do not need to deflate tracheotomy cuff during meals Code(s): J96.10 - CHRONIC RESPIRATORY FAILURE, UNSP W HYPOXIA OR HYPERCAPNIA (2) Facial rash Assessment/Plan: -bactroban ointment -IV abx -ID consult -Dermatology consult -WBC normal, afebrile, VSS Code(s): R21 - RASH AND OTHER NONSPECIFIC SKIN ERUPTION (3) Hypotension Assessment/Plan: -normalized Code(s): I95.9 - HYPOTENSION, UNSPECIFIED Assessment/Plan see problem list
[2017-05-28] MEDS ORDERED: PT OWN MED DRAWER 7, Y5N ONE ×2 (10:58→18:55)
[2017-05-28] MEDS: METOPROLOL TARTRATE 25 MG TABLET (FP) PO SCH ×2 (11:10→22:34)
[2017-05-28] MEDS: LORATADINE 10 MG TABLET PO SCH (11:11)
[2017-05-28] MEDS: LACTOBACILLUS ACIDOPHILUS 1 EACH TAB (FP) PO SCH (11:11)
[2017-05-28] MEDS: FERROUS SO4 325 MG TABLET (FP) PO SCH ×2 (11:11→22:34)
[2017-05-28] MEDS: MULTIVITAMINS (DAILY MVI) TABLET (FP) PO SCH (11:11)
[2017-05-28] MEDS: APIXABAN 2.5 MG TABLET PO SCH ×2 (11:12→22:34)
--- NOTE | 2017-05-28 13:04 | PN ---
Progress Note, Physician History of Present Illness: PULMONARY ALERT,NAD,LESS FACIAL REDNESS,SWELLING - Current Medication List Current Medications: Active Medications Acetaminophen (Tylenol -) 650 mg PO Q4H PRN PRN Reason: FEVER OR PAIN Albuterol Sulfate (Ventolin 0.083% Nebulizer Soln -) 1 amp NEB Q4H PRN PRN Reason: SHORT OF BREATH/WHEEZING Apixaban (Eliquis -) 2.5 mg PO BID [facility] Last Admin: 05/28/17 11:12 Dose: 2.5 mg Artificial Tears (Artificial Tears) 1 drop OU DAILY [facility] Atorvastatin Calcium (Lipitor -) 10 mg PO HS [facility] Last Admin: 05/27/17 21:47 Dose: 10 mg Docusate Sodium (Colace -) 300 mg PO HS [facility] Last Admin: 05/27/17 21:46 Dose: 300 mg Ferrous Sulfate (Feosol -) 325 mg PO BID [facility] Last Admin: 05/28/17 11:11 Dose: 325 mg CEFTRIAXONE 1 G/50 ML PREMIX (Ceftriaxone 1 Gm-D5w Bag) 50 mls @ 100 mls/hr IVPB DAILY [facility] Potassium Chloride/Dextrose/Sod Cl (D5-1/2ns+20 Meq Kcl -) 1,000 mls @ 75 mls/ hr IV ASDIR [facility] Last Admin: 05/28/17 00:55 Dose: 75 mls/hr Lactobacillus Acidophilus (Bacid -) 1 tab PO DAILY [facility] Last Admin: 05/28/17 11:11 Dose: 1 tab Loratadine (Claritin -) 10 mg PO DAILY [facility] Last Admin: 05/28/17 11:11 Dose: 10 mg Metoprolol Tartrate (Lopressor -) 12.5 mg PO BID [facility] Last Admin: 05/28/17 11:10 Dose: 12.5 mg Mirtazapine (Remeron -) 15 mg PO HS [facility] Last Admin: 05/27/17 21:47 Dose: 15 mg Multivitamins/Minerals/Vitamin C (Tab-A-Vit -) 1 tab PO DAILY [facility] Last Admin: 05/28/17 11:11 Dose: 1 tab Mupirocin (Bactroban 2% Ointment -) 1 applic TP TID [facility] Last Admin: 05/28/17 06:59 Dose: 1 applic - Objective Vital Signs: Vital Signs Temperature 99.3 F 05/28/17 11:03 Pulse Rate 74 05/28/17 11:03 Respiratory Rate 15 05/28/17 11:03 Blood Pressure 126/63 05/28/17 11:03 O2 Sat by Pulse Oximetry (%) 98 05/28/17 10:40 Constitutional: Yes: Calm, Thin Eyes: Yes: WNL HENT: Yes: WNL Neck: Yes: WNL Cardiovascular: Yes: Pulse Irregular, S1, S2 Respiratory: Yes: Rhonchi (FEW RHONCHI) Gastrointestinal: Yes: Normal Bowel Sounds, Soft Extremities: Yes: WNL Edema: No Labs: CBC, BMP 05/28/17 06:25 05/28/17 06:25 INR, PTT INR 1.27 (0.82-1.09) H 05/27/17 14:10 Problem List - Problems (1) Anemia Code(s): D64.9 - ANEMIA, UNSPECIFIED (2) Cellulitis Code(s): L03.90 - CELLULITIS, UNSPECIFIED Qualifiers: Site of cellulitis: face Qualified Code(s): L03.211 - Cellulitis of face; L03.211 - Cellulitis of face (3) AICD (automatic cardioverter/defibrillator) present Code(s): Z95.810 - PRESENCE OF AUTOMATIC (IMPLANTABLE) CARDIAC DEFIBRILLATOR (4) Atelectasis Code(s): J98.11 - ATELECTASIS (5) COPD (chronic obstructive pulmonary disease) Code(s): J44.9 - CHRONIC OBSTRUCTIVE PULMONARY DISEASE, UNSPECIFIED (6) Chronic respiratory failure Code(s): J96.10 - CHRONIC RESPIRATORY FAILURE, UNSP W HYPOXIA OR HYPERCAPNIA (7) Facial cellulitis Code(s): L03.211 - CELLULITIS OF FACE (8) Fever Code(s): R50.9 - FEVER, UNSPECIFIED (9) Functional quadriplegia Code(s): R53.2 - FUNCTIONAL QUADRIPLEGIA (10) HTN (hypertension) Code(s): I10 - ESSENTIAL (PRIMARY) HYPERTENSION (11) Hypotension Code(s): I95.9 - HYPOTENSION, UNSPECIFIED (12) Respirator dependence Code(s): Z99.11 - DEPENDENCE ON RESPIRATOR [VENTILATOR] STATUS Assessment/Plan IMP CHRONIC RESPIRATORY FAILURE COPD FACIAL CELLULITIS HYPOTENSION AFIB S/P AICD H/O CVA H/O CARDIAC ARREST ANEMIA PLAN IV ANTIBIOTICS PER ID IVF INHALED BRONCHODILATORS CULTURES CONTINUE VENT SUPPORT ON AC MODE DR CABRERA Problem List - Problems (1) Anemia Code(s): D64.9 - ANEMIA, UNSPECIFIED (2) Cellulitis Code(s): L03.90 - CELLULITIS, UNSPECIFIED Qualifiers: Site of cellulitis: face Qualified Code(s): L03.211 - Cellulitis of face; L03.211 - Cellulitis of face (3) AICD (automatic cardioverter/defibrillator) present Code(s): Z95.810 - PRESENCE OF AUTOMATIC (IMPLANTABLE) CARDIAC DEFIBRILLATOR (4) Atelectasis Code(s): J98.11 - ATELECTASIS (5) COPD (chronic obstructive pulmonary disease) Code(s): J44.9 - CHRONIC OBSTRUCTIVE PULMONARY DISEASE, UNSPECIFIED (6) Chronic respiratory failure Code(s): J96.10 - CHRONIC RESPIRATORY FAILURE, UNSP W HYPOXIA OR HYPERCAPNIA (7) Facial cellulitis Code(s): L03.211 - CELLULITIS OF FACE (8) Fever Code(s): R50.9 - FEVER, UNSPECIFIED (9) Functional quadriplegia Code(s): R53.2 - FUNCTIONAL QUADRIPLEGIA (10) HTN (hypertension) Code(s): I10 - ESSENTIAL (PRIMARY) HYPERTENSION (11) Hypotension Code(s): I95.9 - HYPOTENSION, UNSPECIFIED (12) Respirator dependence Code(s): Z99.11 - DEPENDENCE ON RESPIRATOR [VENTILATOR] STATUS
[2017-05-28] MEDS: CEFTRIAXONE 1 G/50 ML PREMIX 50 ML IVPB SCH (13:41)
[2017-05-28] MEDS: ARTIFICIAL TEARS (POLYVINYL ALCOHOL 1.4%) OPTH DROPS OU SCH (13:42)
--- NOTE | 2017-05-28 14:45 | PN ---
Progress Note (short form) - Note Progress Note: ID Consult dictated Recurrent facial cellulitis Chronic respiratory failure Await c/s Empiric vancomycin/ ceftriaxone Dermatology evaluation
[2017-05-28] MEDS: VANCOMYCIN 1,000 MG in DEXTROSE 5%-WATER - 250 ML IVPB SCH (16:43)
[2017-05-28] MEDS: ATORVASTATIN CA 10 MG TABLET (FP) PO SCH (22:34)
[2017-05-28] MEDS: MIRTAZAPINE 15 MG TABLET (FP) PO SCH (22:34)
[2017-05-28] MEDS: DOCUSATE SODIUM 100 MG CAPSULE (FP) PO SCH (22:34)
[2017-05-29] MEDS: VANCOMYCIN 1,000 MG in DEXTROSE 5%-WATER - 250 ML IVPB SCH ×2 (03:19→15:42)
[2017-05-29] MEDS: D5-1/2NS+20 MEQ KCL - 1,000 ML IV SCH ×2 (03:20→18:06)
[2017-05-29] MEDS: MUPIROCIN 2% TOPICAL OINTMENT 22 GM TUBE TP SCH ×3 (05:36→22:41)
--- NOTE | 2017-05-29 07:37 | EKG ---
Test Reason : Blood Pressure : / mmHG Vent. Rate : 061 BPM Atrial Rate : 061 BPM P-R Int : 152 ms QRS Dur : 086 ms QT Int : 408 ms P-R-T Axes : 092 027 068 degrees QTc Int : 410 ms NORMAL SINUS RHYTHM LOW VOLTAGE QRS CANNOT RULE OUT ANTEROSEPTAL INFARCT (CITED ON OR BEFORE 15-APR-2016) ABNORMAL ECG WHEN COMPARED WITH ECG OF 25-APR-2017 11:12, NO SIGNIFICANT CHANGE WAS FOUND Confirmed by NIKHIL LINN MD ([id number]) on 05/29/2017 7:37:01 AM Referred By: Confirmed By:NIKHIL LINN MD
--- NOTE | 2017-05-29 07:46 | CONS ---
DATE OF CONSULTATION: 05/28/2017 CHIEF COMPLAINT: Patient is an 82-year-old female with a history of chronic respiratory failure, status post tracheostomy, readmitted with recurrent facial cellulitis. HISTORY OF PRESENT ILLNESS: The patient was hospitalized at [facility] from April 23 through May 01 with facial cellulitis. At that time, she had bilateral periorbital edema to the point where she was unable to open her eyes as well as confluent erythema involving the forehead, periorbital areas and malar areas. In the hospital it had extended to the preauricular area. She was empirically treated with vancomycin and ceftriaxone with clinical improvement. [facility] after complete resolution of the facial cellulitis. She now returns with a one-day history of increasing facial redness, swelling, low-grade fever, and hypotension. She is a [facility] resident. She was admitted to the hospital. She was empirically treated with vancomycin and ceftriaxone. No reports of high-grade fever or shaking chills, labored breathing, stridor or wheeze. She was seen in consultation last month by dermatology whose opinion was that she had a contact dermatitis, which became secondarily infected. She denies any use of any new creams or lotions. PAST MEDICAL HISTORY: Positive for atrial fibrillation, congestive heart failure, stroke, COPD, chronic respiratory failure, dementia, Parkinsonism, gastroesophageal reflux. PAST SURGICAL HISTORY: Status post tracheostomy and implanted defibrillator. ALLERGIES: DOXYCYCLINE, NATURE OF THE ALLERGY IS NOT KNOWN. MEDICATIONS: Tylenol, vancomycin, ceftriaxone, Eliquis, Remeron, , Lopressor, Colace, Lipitor. SOCIAL HISTORY: She is a [facility] resident. She has chronic respiratory failure. She is ventilator dependent. She is dependent with activities of daily living. REVIEW OF SYSTEMS: Neurologic: Positive for stroke, dementia, and Parkinsonism. Cardiac: History of cardiopulmonary arrest and atrial fibrillation. Respiratory: As per HPI. Gastrointestinal: Negative vomiting or diarrhea. Positive gastroesophageal reflux. Genitourinary: Negative for urinary tract infection. LABORATORY DATA: White count 9.0, hematocrit 32.1, platelet count 163, creatinine 0.5. Urinalysis: 12 white cells. Chest x-ray: Negative for acute infiltrate. PHYSICAL EXAMINATION: General: She is awake and alert. She is in no acute distress. Her breathing is nonlabored. Vital signs: Temperature 99.3, blood pressure 126/63, pulse 74 and regular, respirations 16 per minute. HEENT: Examination of the face there is confluent erythema involving the forehead, periorbital areas, malar areas. There is some encrustation noted on the malar areas bilaterally. There is no periorbital edema and no conjunctivitis. No mucous membrane involvement. The patient is status post tracheostomy. Heart: Sounds S1, S2. Lungs: Air entry bilaterally. Abdomen: Soft. No tenderness solicited, slightly distended. Extremities: Negative for edema. IMPRESSION: 1. Recurrent facial cellulitis. 2. Chronic respiratory failure. 3. History of stroke, Parkinsonism, and dementia. PLAN: Pending cultures, empiric antibiotic coverage with vancomycin and ceftriaxone. Patient clinically improved on this regimen. The last admission had complete resolution of her facial cellulitis. I agree with dermatology evaluation. I will follow. Thank you for the kind referral. JAXON MTZ M.D. [id number]
--- NOTE | 2017-05-29 10:28 | CONSULT ---
Consult Consult Specialty:: Dermatology Reason for Consultation:: recurrent facial rash - Past Medical History MAKE UP MAN: Yes: CVA, Dementia, Parkinson's Cardio/Vascular: Yes: AFIB (Paroxysmal), CHF, HTN, Hyperlipdemia, Other (h/o cardiac arrest s/p AICD - Single lead) Pulmonary: Yes: COPD, Other (respiratory failure) Gastrointestinal: Yes: GERD - Past Surgical History Past Surgical History: Yes: AICD ([employer], implanted following cardiac arrest) , Cataract Removal (2011) - Alcohol/Substance Use Hx Alcohol Use: No - Smoking History Smoking history: Unknown if ever smoked Have you smoked in the past 12 months: No Aproximately how many cigarettes per day: 0 - Social History Usual Living Arrangement: Senior [facility] History of Recent Travel: No Home Medications - Allergies Allergies/Adverse Reactions: Allergies Allergy/AdvReac Type Severity Reaction Status Date / Time doxycycline Allergy Intermediate Verified 04/22/17 23:48 CLAMS Allergy Intermediate Hives Uncoded 04/22/17 23:48 - Home Medications Home Medications: Ambulatory Orders Docusate Sodium 300 mg PO HS 10/19/16 Albuterol 0.083% Nebulizer Yady [Ventolin 0.083% Nebulizer Soln -] 1 amp NEB Q4H PRN #180 amp 03/20/17 Apixaban [Eliquis -] 2.5 mg PO BID tablet 03/20/17 Atorvastatin Ca [Lipitor] 10 mg PO HS #30 tablet 03/20/17 Ferrous Sulfate 325 mg PO BID #60 tab 03/20/17 Lactobacillus Acidophilus [Bacid -] 1 tab PO DAILY #30 tab 03/20/17 Loratadine [Claritin -] 10 mg PO DAILY #30 tablet 03/20/17 Mirtazapine [Remeron -] 15 mg PO HS #30 tablet 03/20/17 Multivitamins [Multivit ([facility])] 1 tab PO DAILY #30 tab 03/20/17 Nystatin Powder [Nystop Powder -] 1 applic TP DAILY #1 applic 03/20/17 Pantoprazole Sodium [Protonix -] 40 mg PO DAILY #30 tab 03/20/17 Metoprolol Tartrate [Lopressor -] 12.5 mg PO BID tablet 05/01/17 Mupirocin Ointment [Bactroban 2% Ointment -] 1 applic TP TID applic 05/01/17 Ascorbic Acid/Ascorbate Sodium [Vitamin C 500 mg Wafer] 500 mg PO DAILY Hypromellose 0.5% Opth Soln [Artificial Tears] 1 drop OU DAILY 05/27/17 Physical Exam Vital Signs: Vital Signs Temperature 98.9 F 05/29/17 05:00 Pulse Rate 67 05/29/17 05:00 Respiratory Rate 15 05/29/17 06:50 Blood Pressure 140/90 05/29/17 05:00 O2 Sat by Pulse Oximetry (%) 98 05/28/17 21:00 Labs: CBC, BMP 05/28/17 06:25 05/28/17 06:25 Assessment/Plan Dermatology consulted to see patient for facial eruption. Eczematous eruption over face dayday around eyes clinical picture consistent with atopic dermatitis or contact dermatitis impetiginized. discuss with patient possible irritants /allergens please use unscented white dove soap and apply vaseline or aquaphor for daily skin care. application of hydrocortisone 2.5 % oint to be used for 4 to 5 days consider allergy testing by canteen attendant
[2017-05-29] MEDS ORDERED: HYDROCORTISONE 2.5% LOTION - 1 BOTTLE TP ONE (10:31)
[2017-05-29] MEDS: ARTIFICIAL TEARS (POLYVINYL ALCOHOL 1.4%) OPTH DROPS OU SCH (11:00)
[2017-05-29] MEDS: CEFTRIAXONE 1 G/50 ML PREMIX 50 ML IVPB SCH (11:13)
[2017-05-29] MEDS: FERROUS SO4 325 MG TABLET (FP) PO SCH ×2 (11:14→22:39)
[2017-05-29] MEDS: METOPROLOL TARTRATE 25 MG TABLET (FP) PO SCH ×2 (11:14→22:40)
[2017-05-29] MEDS: MULTIVITAMINS (DAILY MVI) TABLET (FP) PO SCH (11:15)
[2017-05-29] MEDS: LORATADINE 10 MG TABLET PO SCH (11:15)
[2017-05-29] MEDS: LACTOBACILLUS ACIDOPHILUS 1 EACH TAB (FP) PO SCH (11:16)
[2017-05-29] MEDS: APIXABAN 2.5 MG TABLET PO SCH ×2 (11:16→22:43)
[2017-05-29] MEDS ORDERED: PT OWN MED DRAWER 7, Y5N ONE ×2 (11:55→15:22)
--- NOTE | 2017-05-29 14:37 | PN ---
Progress Note (short form) - Note Progress Note: Awake on AC mode of vent. NAD. No acute events overnight. Intake & Output 05/27/17 05/27/17 05/28/17 05/29/17 00:59 23:59 23:59 23:59 Intake Total 2275 1250 Balance 2275 1250 Weight 100 lb 9.6 oz Last Vital Signs Temp Pulse Resp BP Pulse Ox 98.6 F 70 17 138/68 98 05/29/17 11:00 05/29/17 11:00 05/29/17 14:10 05/29/17 11:00 05/29/17 10:15 Active Medications Acetaminophen (Tylenol -) 650 mg PO Q4H PRN PRN Reason: FEVER OR PAIN Albuterol Sulfate (Ventolin 0.083% Nebulizer Soln -) 1 amp NEB Q4H PRN PRN Reason: SHORT OF BREATH/WHEEZING Apixaban (Eliquis -) 2.5 mg PO BID [facility] Last Admin: 05/29/17 11:16 Dose: 2.5 mg Artificial Tears (Artificial Tears) 1 drop OU DAILY [facility] Last Admin: 05/28/17 13:42 Dose: 1 drop Atorvastatin Calcium (Lipitor -) 10 mg PO HS [facility] Last Admin: 05/28/17 22:34 Dose: 10 mg Docusate Sodium (Colace -) 300 mg PO HS [facility] Last Admin: 05/28/17 22:34 Dose: 300 mg Ferrous Sulfate (Feosol -) 325 mg PO BID [facility] Last Admin: 05/29/17 11:14 Dose: 325 mg CEFTRIAXONE 1 G/50 ML PREMIX (Ceftriaxone 1 Gm-D5w Bag) 50 mls @ 100 mls/hr IVPB DAILY [facility] Last Admin: 05/29/17 11:13 Dose: 100 mls/hr Potassium Chloride/Dextrose/Sod Cl (D5-1/2ns+20 Meq Kcl -) 1,000 mls @ 75 mls/ hr IV ASDIR [facility] Last Admin: 05/29/17 03:20 Dose: 75 mls/hr Vancomycin HCl 1,000 mg/ (Dextrose) 250 mls @ 166.667 mls/hr IVPB BID@0400, 1600 [facility] Last Admin: 05/29/17 03:19 Dose: 166.667 mls/hr Lactobacillus Acidophilus (Bacid -) 1 tab PO DAILY [facility] Last Admin: 05/29/17 11:16 Dose: 1 tab Loratadine (Claritin -) 10 mg PO DAILY [facility] Last Admin: 05/29/17 11:15 Dose: 10 mg Metoprolol Tartrate (Lopressor -) 12.5 mg PO BID [facility] Last Admin: 05/29/17 11:14 Dose: 12.5 mg Mirtazapine (Remeron -) 15 mg PO HS [facility] Last Admin: 05/28/17 22:34 Dose: 15 mg Multivitamins/Minerals/Vitamin C (Tab-A-Vit -) 1 tab PO DAILY [facility] Last Admin: 05/29/17 11:15 Dose: 1 tab Mupirocin (Bactroban 2% Ointment -) 1 applic TP TID [facility] Last Admin: 05/29/17 05:36 Dose: 1 applic Constitutional: Yes: NAD Eyes: Yes: WNL HENT: Yes: Trach intact Neck: Yes: WNL Cardiovascular: Yes: Pulse Irregular, S1, S2 Respiratory: Yes: few scattered rhonchi Gastrointestinal: Yes: Normal Bowel Sounds, Soft Extremities: Yes: WNL Edema: No Labs: Problem List - Problems (1) Anemia Code(s): D64.9 - ANEMIA, UNSPECIFIED (2) Cellulitis Code(s): L03.90 - CELLULITIS, UNSPECIFIED Qualifiers: Site of cellulitis: face Qualified Code(s): L03.211 - Cellulitis of face; L03.211 - Cellulitis of face (3) AICD (automatic cardioverter/defibrillator) present Code(s): Z95.810 - PRESENCE OF AUTOMATIC (IMPLANTABLE) CARDIAC DEFIBRILLATOR (4) Atelectasis Code(s): J98.11 - ATELECTASIS (5) COPD (chronic obstructive pulmonary disease) Code(s): J44.9 - CHRONIC OBSTRUCTIVE PULMONARY DISEASE, UNSPECIFIED (6) Chronic respiratory failure Code(s): J96.10 - CHRONIC RESPIRATORY FAILURE, UNSP W HYPOXIA OR HYPERCAPNIA (7) Facial cellulitis Code(s): L03.211 - CELLULITIS OF FACE (8) Fever Code(s): R50.9 - FEVER, UNSPECIFIED (9) Functional quadriplegia Code(s): R53.2 - FUNCTIONAL QUADRIPLEGIA (10) HTN (hypertension) Code(s): I10 - ESSENTIAL (PRIMARY) HYPERTENSION (11) Hypotension Code(s): I95.9 - HYPOTENSION, UNSPECIFIED (12) Respirator dependence Code(s): Z99.11 - DEPENDENCE ON RESPIRATOR [VENTILATOR] STATUS Assessment/Plan IMP CHRONIC RESPIRATORY FAILURE COPD FACIAL CELLULITIS HYPOTENSION AFIB S/P AICD H/O CVA H/O CARDIAC ARREST ANEMIA PLAN ANTIBIOTICS PER ID INHALED BRONCHODILATORS CONTINUE VENT SUPPORT ON AC MODE Dr Medina
--- NOTE | 2017-05-29 15:59 | PN ---
Progress Note, Physician History of Present Illness: Dermatology consult appreciated Awake, alert No complaints Low grade temp WBC WNL BC (-) - Current Medication List Current Medications: Active Medications Acetaminophen (Tylenol -) 650 mg PO Q4H PRN PRN Reason: FEVER OR PAIN Albuterol Sulfate (Ventolin 0.083% Nebulizer Soln -) 1 amp NEB Q4H PRN PRN Reason: SHORT OF BREATH/WHEEZING Apixaban (Eliquis -) 2.5 mg PO BID [facility] Last Admin: 05/29/17 11:16 Dose: 2.5 mg Artificial Tears (Artificial Tears) 1 drop OU DAILY [facility] Last Admin: 05/29/17 11:00 Dose: 1 drop Atorvastatin Calcium (Lipitor -) 10 mg PO HS [facility] Last Admin: 05/28/17 22:34 Dose: 10 mg Docusate Sodium (Colace -) 300 mg PO HS [facility] Last Admin: 05/28/17 22:34 Dose: 300 mg Ferrous Sulfate (Feosol -) 325 mg PO BID [facility] Last Admin: 05/29/17 11:14 Dose: 325 mg CEFTRIAXONE 1 G/50 ML PREMIX (Ceftriaxone 1 Gm-D5w Bag) 50 mls @ 100 mls/hr IVPB DAILY [facility] Last Admin: 05/29/17 11:13 Dose: 100 mls/hr Potassium Chloride/Dextrose/Sod Cl (D5-1/2ns+20 Meq Kcl -) 1,000 mls @ 75 mls/ hr IV ASDIR [facility] Last Admin: 05/29/17 03:20 Dose: 75 mls/hr Vancomycin HCl 1,000 mg/ (Dextrose) 250 mls @ 166.667 mls/hr IVPB BID@0400, 1600 [facility] Last Admin: 05/29/17 15:42 Dose: 166.667 mls/hr Lactobacillus Acidophilus (Bacid -) 1 tab PO DAILY [facility] Last Admin: 05/29/17 11:16 Dose: 1 tab Loratadine (Claritin -) 10 mg PO DAILY [facility] Last Admin: 05/29/17 11:15 Dose: 10 mg Metoprolol Tartrate (Lopressor -) 12.5 mg PO BID [facility] Last Admin: 05/29/17 11:14 Dose: 12.5 mg Mirtazapine (Remeron -) 15 mg PO HS [facility] Last Admin: 05/28/17 22:34 Dose: 15 mg Multivitamins/Minerals/Vitamin C (Tab-A-Vit -) 1 tab PO DAILY [facility] Last Admin: 05/29/17 11:15 Dose: 1 tab Mupirocin (Bactroban 2% Ointment -) 1 applic TP TID [facility] Last Admin: 05/29/17 15:41 Dose: 1 applic - Objective Vital Signs: Vital Signs Temperature 100.4 F H 05/29/17 14:38 Pulse Rate 72 05/29/17 14:38 Respiratory Rate 16 05/29/17 14:38 Blood Pressure 159/77 05/29/17 14:38 O2 Sat by Pulse Oximetry (%) 98 05/29/17 10:15 Constitutional: Yes: Cachectic Eyes: Yes: Conjunctiva Clear HENT: Yes: Other (Decreased erythema and swelling, face) Cardiovascular: Yes: Regular Rate and Rhythm, S1, S2 Respiratory: Yes: Mechanically Ventilated Gastrointestinal: Yes: Normal Bowel Sounds, Soft. No: Tenderness Edema: No Labs: CBC, BMP 05/28/17 06:25 05/28/17 06:25 INR, PTT INR 1.27 (0.82-1.09) H 05/27/17 14:10 Assessment/Plan Recurrent facial cellulitis Chronic respiratory failure Continue vancomycin/ ceftriaxone Topical steroid
--- NOTE | 2017-05-29 17:41 | PN ---
Progress Note, Physician Chief Complaint: recurrent facial rash History of Present Illness: NAD, in bed, on mechanical vent -seen by ID -seen by dermatology and pulmonary as well -on IV abx -labs unremarkable - Current Medication List Current Medications: Active Medications Acetaminophen (Tylenol -) 650 mg PO Q4H PRN PRN Reason: FEVER OR PAIN Albuterol Sulfate (Ventolin 0.083% Nebulizer Soln -) 1 amp NEB Q4H PRN PRN Reason: SHORT OF BREATH/WHEEZING Apixaban (Eliquis -) 2.5 mg PO BID [facility] Last Admin: 05/29/17 11:16 Dose: 2.5 mg Artificial Tears (Artificial Tears) 1 drop OU DAILY [facility] Last Admin: 05/29/17 11:00 Dose: 1 drop Atorvastatin Calcium (Lipitor -) 10 mg PO HS [facility] Last Admin: 05/28/17 22:34 Dose: 10 mg Docusate Sodium (Colace -) 300 mg PO HS [facility] Last Admin: 05/28/17 22:34 Dose: 300 mg Ferrous Sulfate (Feosol -) 325 mg PO BID [facility] Last Admin: 05/29/17 11:14 Dose: 325 mg Hydrocortisone (Hytone 2.5% Lotion -) 1 applic TP DAILY [facility] CEFTRIAXONE 1 G/50 ML PREMIX (Ceftriaxone 1 Gm-D5w Bag) 50 mls @ 100 mls/hr IVPB DAILY [facility] Last Admin: 05/29/17 11:13 Dose: 100 mls/hr Potassium Chloride/Dextrose/Sod Cl (D5-1/2ns+20 Meq Kcl -) 1,000 mls @ 75 mls/ hr IV ASDIR [facility] Last Admin: 05/29/17 03:20 Dose: 75 mls/hr Vancomycin HCl 1,000 mg/ (Dextrose) 250 mls @ 166.667 mls/hr IVPB BID@0400, 1600 [facility] Last Admin: 05/29/17 15:42 Dose: 166.667 mls/hr Lactobacillus Acidophilus (Bacid -) 1 tab PO DAILY [facility] Last Admin: 05/29/17 11:16 Dose: 1 tab Loratadine (Claritin -) 10 mg PO DAILY [facility] Last Admin: 05/29/17 11:15 Dose: 10 mg Metoprolol Tartrate (Lopressor -) 12.5 mg PO BID [facility] Last Admin: 05/29/17 11:14 Dose: 12.5 mg Mirtazapine (Remeron -) 15 mg PO HS [facility] Last Admin: 05/28/17 22:34 Dose: 15 mg Multivitamins/Minerals/Vitamin C (Tab-A-Vit -) 1 tab PO DAILY [facility] Last Admin: 05/29/17 11:15 Dose: 1 tab Mupirocin (Bactroban 2% Ointment -) 1 applic TP TID [facility] Last Admin: 05/29/17 15:41 Dose: 1 applic - Objective Vital Signs: Vital Signs Temperature 100.4 F H 05/29/17 14:38 Pulse Rate 72 05/29/17 14:38 Respiratory Rate 16 05/29/17 14:38 Blood Pressure 159/77 05/29/17 14:38 O2 Sat by Pulse Oximetry (%) 98 05/29/17 10:15 Constitutional: Yes: Well Nourished, No Distress, Calm Cardiovascular: Yes: Pulse Irregular Respiratory: Yes: Regular Musculoskeletal: Yes: WNL Extremities: Yes: WNL Edema: No Peripheral Pulses WNL: Yes Integumentary: Yes: Rash (facial) Neurological: Yes: Alert, Oriented Psychiatric: Yes: Alert, Oriented Labs: CBC, BMP 05/28/17 06:25 05/28/17 06:25 INR, PTT INR 1.27 (0.82-1.09) H 05/27/17 14:10 Problem List - Problems (1) Chronic respiratory failure Assessment/Plan: -on mechanical vent -seen by pulmonary - do not need to deflate tracheotomy cuff during meals Code(s): J96.10 - CHRONIC RESPIRATORY FAILURE, UNSP W HYPOXIA OR HYPERCAPNIA (2) Facial rash Assessment/Plan: -bactroban ointment -IV abx -ID consult -Dermatology consult appreciated -WBC normal, afebrile, VSS -Instructions as per dermatology:use unscented white dove soap and apply vaseline or aquaphor for daily skin care. -HC 2.5 % topical (3) Hypotension Assessment/Plan: -normalized Code(s): I95.9 - HYPOTENSION, UNSPECIFIED Assessment/Plan see problem list
[2017-05-29] MEDS: DOCUSATE SODIUM 100 MG CAPSULE (FP) PO SCH (22:40)
[2017-05-29] MEDS: MIRTAZAPINE 15 MG TABLET (FP) PO SCH (22:40)
[2017-05-29] MEDS: ATORVASTATIN CA 10 MG TABLET (FP) PO SCH (22:40)
[2017-05-30] MEDS ORDERED: PT OWN MED DRAWER 7, Y5N ONE ×4 (01:35→21:44)
[2017-05-30] MEDS: VANCOMYCIN 1,000 MG in DEXTROSE 5%-WATER - 250 ML IVPB SCH ×2 (03:47→18:46)
[2017-05-30] MEDS: MUPIROCIN 2% TOPICAL OINTMENT 22 GM TUBE TP SCH ×3 (07:52→22:43)
[2017-05-30] MEDS: CEFTRIAXONE 1 G/50 ML PREMIX 50 ML IVPB SCH (09:54)
[2017-05-30] MEDS: METOPROLOL TARTRATE 25 MG TABLET (FP) PO SCH ×2 (09:54→22:42)
[2017-05-30] MEDS: MULTIVITAMINS (DAILY MVI) TABLET (FP) PO SCH (09:55)
[2017-05-30] MEDS: FERROUS SO4 325 MG TABLET (FP) PO SCH ×2 (09:55→22:43)
[2017-05-30] MEDS: LACTOBACILLUS ACIDOPHILUS 1 EACH TAB (FP) PO SCH (09:55)
[2017-05-30] MEDS: APIXABAN 2.5 MG TABLET PO SCH ×2 (09:55→22:43)
[2017-05-30] MEDS: LORATADINE 10 MG TABLET PO SCH (09:55)
[2017-05-30] MEDS: ARTIFICIAL TEARS (POLYVINYL ALCOHOL 1.4%) OPTH DROPS OU SCH (09:57)
[2017-05-30] MEDS: D5-1/2NS+20 MEQ KCL - 1,000 ML IV SCH ×3 (09:58→22:57)
[2017-05-30] MEDS: HYDROCORTISONE 2.5% LOTION - 1 BOTTLE TP SCH (10:01)
[2017-05-30] MEDS: ALBUTEROL SO4 0.083% IH SOL 2.5 MG/3 ML VIAL.NEB. NEB PRN (10:46)
--- NOTE | 2017-05-30 11:50 | PN ---
Progress Note, Physician History of Present Illness: pulmonary alert,nad,on vent support - Current Medication List Current Medications: Active Medications Acetaminophen (Tylenol -) 650 mg PO Q4H PRN PRN Reason: FEVER OR PAIN Albuterol Sulfate (Ventolin 0.083% Nebulizer Soln -) 1 amp NEB Q4H PRN PRN Reason: SHORT OF BREATH/WHEEZING Last Admin: 05/30/17 10:46 Dose: 1 amp Apixaban (Eliquis -) 2.5 mg PO BID [facility] Last Admin: 05/29/17 22:43 Dose: 2.5 mg Artificial Tears (Artificial Tears) 1 drop OU DAILY [facility] Last Admin: 05/29/17 11:00 Dose: 1 drop Atorvastatin Calcium (Lipitor -) 10 mg PO HS [facility] Last Admin: 05/29/17 22:40 Dose: 10 mg Docusate Sodium (Colace -) 300 mg PO HS [facility] Last Admin: 05/29/17 22:40 Dose: 300 mg Ferrous Sulfate (Feosol -) 325 mg PO BID [facility] Last Admin: 05/29/17 22:39 Dose: 325 mg Hydrocortisone (Hytone 2.5% Lotion -) 1 applic TP DAILY [facility] Last Admin: 05/30/17 10:01 Dose: 1 applic CEFTRIAXONE 1 G/50 ML PREMIX (Ceftriaxone 1 Gm-D5w Bag) 50 mls @ 100 mls/hr IVPB DAILY [facility] Last Admin: 05/29/17 11:13 Dose: 100 mls/hr Potassium Chloride/Dextrose/Sod Cl (D5-1/2ns+20 Meq Kcl -) 1,000 mls @ 75 mls/ hr IV ASDIR [facility] Last Admin: 05/30/17 09:58 Dose: 75 mls/hr Vancomycin HCl 1,000 mg/ (Dextrose) 250 mls @ 166.667 mls/hr IVPB BID@0400, 1600 [facility] Last Admin: 05/30/17 03:47 Dose: 166.667 mls/hr Lactobacillus Acidophilus (Bacid -) 1 tab PO DAILY [facility] Last Admin: 05/29/17 11:16 Dose: 1 tab Loratadine (Claritin -) 10 mg PO DAILY [facility] Last Admin: 05/29/17 11:15 Dose: 10 mg Metoprolol Tartrate (Lopressor -) 12.5 mg PO BID [facility] Last Admin: 05/29/17 22:40 Dose: 12.5 mg Mirtazapine (Remeron -) 15 mg PO HS [facility] Last Admin: 05/29/17 22:40 Dose: 15 mg Multivitamins/Minerals/Vitamin C (Tab-A-Vit -) 1 tab PO DAILY [facility] Last Admin: 05/29/17 11:15 Dose: 1 tab Mupirocin (Bactroban 2% Ointment -) 1 applic TP TID [facility] Last Admin: 05/30/17 07:52 Dose: Not Given - Objective Vital Signs: Vital Signs Temperature 98.8 F 05/30/17 02:00 Pulse Rate 74 05/30/17 10:48 Respiratory Rate 15 05/30/17 10:15 Blood Pressure 150/80 05/30/17 02:00 O2 Sat by Pulse Oximetry (%) 99 05/30/17 10:48 Constitutional: Yes: Calm, Thin Eyes: Yes: WNL HENT: Yes: WNL Neck: Yes: Supple (trach) Cardiovascular: Yes: Pulse Irregular, S1, S2 Respiratory: Yes: Diminished Gastrointestinal: Yes: Normal Bowel Sounds, Soft Extremities: Yes: WNL Edema: No Peripheral Pulses WNL: No Problem List - Problems (1) Respirator dependence Code(s): Z99.11 - DEPENDENCE ON RESPIRATOR [VENTILATOR] STATUS (2) HTN (hypertension) Code(s): I10 - ESSENTIAL (PRIMARY) HYPERTENSION (3) AICD (automatic cardioverter/defibrillator) present Code(s): Z95.810 - PRESENCE OF AUTOMATIC (IMPLANTABLE) CARDIAC DEFIBRILLATOR (4) Fever Code(s): R50.9 - FEVER, UNSPECIFIED (5) Chronic respiratory failure Code(s): J96.10 - CHRONIC RESPIRATORY FAILURE, UNSP W HYPOXIA OR HYPERCAPNIA (6) COPD (chronic obstructive pulmonary disease) Code(s): J44.9 - CHRONIC OBSTRUCTIVE PULMONARY DISEASE, UNSPECIFIED (7) Hypotension Code(s): I95.9 - HYPOTENSION, UNSPECIFIED (8) Anemia Code(s): D64.9 - ANEMIA, UNSPECIFIED (9) Atelectasis Code(s): J98.11 - ATELECTASIS (10) Functional quadriplegia Code(s): R53.2 - FUNCTIONAL QUADRIPLEGIA (11) Cellulitis Code(s): L03.90 - CELLULITIS, UNSPECIFIED Qualifiers: Site of cellulitis: face Qualified Code(s): L03.211 - Cellulitis of face (12) Facial cellulitis Code(s): L03.211 - CELLULITIS OF FACE Assessment/Plan IMP CHRONIC RESPIRATORY FAILURE COPD FACIAL CELLULITIS improving HYPOTENSION AFIB S/P AICD H/O CVA H/O CARDIAC ARREST ANEMIA PLAN IV ANTIBIOTICS PER ID IVF INHALED BRONCHODILATORS CULTURES CONTINUE VENT SUPPORT ON AC MODE DR CABRERA Problem List - Problems (1) Anemia Code(s): D64.9 - ANEMIA, UNSPECIFIED (2) Cellulitis Code(s): L03.90 - CELLULITIS, UNSPECIFIED Qualifiers: Site of cellulitis: face Qualified Code(s): L03.211 - Cellulitis of face; L03.211 - Cellulitis of face (3) AICD (automatic cardioverter/defibrillator) present Code(s): Z95.810 - PRESENCE OF AUTOMATIC (IMPLANTABLE) CARDIAC DEFIBRILLATOR (4) Atelectasis Code(s): J98.11 - ATELECTASIS (5) COPD (chronic obstructive pulmonary disease) Code(s): J44.9 - CHRONIC OBSTRUCTIVE PULMONARY DISEASE, UNSPECIFIED (6) Chronic respiratory failure Code(s): J96.10 - CHRONIC RESPIRATORY FAILURE, UNSP W HYPOXIA OR HYPERCAPNIA (7) Facial cellulitis Code(s): L03.211 - CELLULITIS OF FACE (8) Fever Code(s): R50.9 - FEVER, UNSPECIFIED (9) Functional quadriplegia Code(s): R53.2 - FUNCTIONAL QUADRIPLEGIA (10) HTN (hypertension) Code(s): I10 - ESSENTIAL (PRIMARY) HYPERTENSION (11) Hypotension Code(s): I95.9 - HYPOTENSION, UNSPECIFIED (12) Respirator dependence Code(s): Z99.11 - DEPENDENCE ON RESPIRATOR [VENTILATOR] STATUS
--- NOTE | 2017-05-30 12:26 | PN ---
Progress Note, Physician History of Present Illness: Dermatology consult appreciated Awake, alert No complaints Low grade temp noted WBC WNL BC (-) - Current Medication List Current Medications: Active Medications Acetaminophen (Tylenol -) 650 mg PO Q4H PRN PRN Reason: FEVER OR PAIN Albuterol Sulfate (Ventolin 0.083% Nebulizer Soln -) 1 amp NEB Q4H PRN PRN Reason: SHORT OF BREATH/WHEEZING Last Admin: 05/30/17 10:46 Dose: 1 amp Apixaban (Eliquis -) 2.5 mg PO BID [facility] Last Admin: 05/29/17 22:43 Dose: 2.5 mg Artificial Tears (Artificial Tears) 1 drop OU DAILY [facility] Last Admin: 05/29/17 11:00 Dose: 1 drop Atorvastatin Calcium (Lipitor -) 10 mg PO HS [facility] Last Admin: 05/29/17 22:40 Dose: 10 mg Docusate Sodium (Colace -) 300 mg PO HS [facility] Last Admin: 05/29/17 22:40 Dose: 300 mg Ferrous Sulfate (Feosol -) 325 mg PO BID [facility] Last Admin: 05/29/17 22:39 Dose: 325 mg Hydrocortisone (Hytone 2.5% Lotion -) 1 applic TP DAILY [facility] Last Admin: 05/30/17 10:01 Dose: 1 applic CEFTRIAXONE 1 G/50 ML PREMIX (Ceftriaxone 1 Gm-D5w Bag) 50 mls @ 100 mls/hr IVPB DAILY [facility] Last Admin: 05/29/17 11:13 Dose: 100 mls/hr Potassium Chloride/Dextrose/Sod Cl (D5-1/2ns+20 Meq Kcl -) 1,000 mls @ 75 mls/ hr IV ASDIR [facility] Last Admin: 05/30/17 09:58 Dose: 75 mls/hr Vancomycin HCl 1,000 mg/ (Dextrose) 250 mls @ 166.667 mls/hr IVPB BID@0400, 1600 [facility] Last Admin: 05/30/17 03:47 Dose: 166.667 mls/hr Lactobacillus Acidophilus (Bacid -) 1 tab PO DAILY [facility] Last Admin: 05/29/17 11:16 Dose: 1 tab Loratadine (Claritin -) 10 mg PO DAILY [facility] Last Admin: 05/29/17 11:15 Dose: 10 mg Metoprolol Tartrate (Lopressor -) 12.5 mg PO BID [facility] Last Admin: 05/29/17 22:40 Dose: 12.5 mg Mirtazapine (Remeron -) 15 mg PO HS [facility] Last Admin: 05/29/17 22:40 Dose: 15 mg Multivitamins/Minerals/Vitamin C (Tab-A-Vit -) 1 tab PO DAILY [facility] Last Admin: 05/29/17 11:15 Dose: 1 tab Mupirocin (Bactroban 2% Ointment -) 1 applic TP TID [facility] Last Admin: 05/30/17 07:52 Dose: Not Given - Objective Vital Signs: Vital Signs Temperature 98.8 F 05/30/17 02:00 Pulse Rate 74 05/30/17 10:48 Respiratory Rate 15 05/30/17 10:15 Blood Pressure 150/80 05/30/17 02:00 O2 Sat by Pulse Oximetry (%) 99 05/30/17 10:48 Constitutional: Yes: No Distress Eyes: Yes: Conjunctiva Clear HENT: Yes: Other (decreased facial erythema) Cardiovascular: Yes: Regular Rate and Rhythm, S1, S2 Respiratory: Yes: Mechanically Ventilated Gastrointestinal: Yes: Normal Bowel Sounds, Soft Labs: CBC, BMP 05/28/17 06:25 05/28/17 06:25 INR, PTT INR 1.27 (0.82-1.09) H 05/27/17 14:10 Assessment/Plan Recurrent facial cellulitis Chronic respiratory failure Continue vancomycin/ ceftriaxone Check vancomycin level Topical steroid
--- NOTE | 2017-05-30 16:06 | PN ---
Progress Note, Physician Chief Complaint: recurrent facial rash History of Present Illness: NAD, in bed, on mechanical vent -facial rash improved, warm to touch, no pruritus, eyes burn. -afebrile -seen by ID -seen by dermatology and pulmonary as well -on IV abx - Current Medication List Current Medications: Active Medications Acetaminophen (Tylenol -) 650 mg PO Q4H PRN PRN Reason: FEVER OR PAIN Albuterol Sulfate (Ventolin 0.083% Nebulizer Soln -) 1 amp NEB Q4H PRN PRN Reason: SHORT OF BREATH/WHEEZING Last Admin: 05/30/17 10:46 Dose: 1 amp Apixaban (Eliquis -) 2.5 mg PO BID [facility] Last Admin: 05/29/17 22:43 Dose: 2.5 mg Artificial Tears (Artificial Tears) 1 drop OU DAILY [facility] Last Admin: 05/29/17 11:00 Dose: 1 drop Atorvastatin Calcium (Lipitor -) 10 mg PO HS [facility] Last Admin: 05/29/17 22:40 Dose: 10 mg Docusate Sodium (Colace -) 300 mg PO HS [facility] Last Admin: 05/29/17 22:40 Dose: 300 mg Ferrous Sulfate (Feosol -) 325 mg PO BID [facility] Last Admin: 05/29/17 22:39 Dose: 325 mg Hydrocortisone (Hytone 2.5% Lotion -) 1 applic TP DAILY [facility] Last Admin: 05/30/17 10:01 Dose: 1 applic CEFTRIAXONE 1 G/50 ML PREMIX (Ceftriaxone 1 Gm-D5w Bag) 50 mls @ 100 mls/hr IVPB DAILY [facility] Last Admin: 05/29/17 11:13 Dose: 100 mls/hr Potassium Chloride/Dextrose/Sod Cl (D5-1/2ns+20 Meq Kcl -) 1,000 mls @ 75 mls/ hr IV ASDIR [facility] Last Admin: 05/30/17 09:58 Dose: 75 mls/hr Vancomycin HCl 1,000 mg/ (Dextrose) 250 mls @ 166.667 mls/hr IVPB BID@0400, 1600 [facility] Last Admin: 05/30/17 03:47 Dose: 166.667 mls/hr Lactobacillus Acidophilus (Bacid -) 1 tab PO DAILY [facility] Last Admin: 05/29/17 11:16 Dose: 1 tab Loratadine (Claritin -) 10 mg PO DAILY [facility] Last Admin: 05/29/17 11:15 Dose: 10 mg Metoprolol Tartrate (Lopressor -) 12.5 mg PO BID [facility] Last Admin: 05/29/17 22:40 Dose: 12.5 mg Mirtazapine (Remeron -) 15 mg PO HS [facility] Last Admin: 05/29/17 22:40 Dose: 15 mg Multivitamins/Minerals/Vitamin C (Tab-A-Vit -) 1 tab PO DAILY [facility] Last Admin: 05/29/17 11:15 Dose: 1 tab Mupirocin (Bactroban 2% Ointment -) 1 applic TP TID [facility] Last Admin: 05/30/17 07:52 Dose: Not Given - Objective Vital Signs: Vital Signs Temperature 98.6 F 05/30/17 14:36 Pulse Rate 77 05/30/17 14:36 Respiratory Rate 18 05/30/17 14:36 Blood Pressure 154/83 05/30/17 14:36 O2 Sat by Pulse Oximetry (%) 99 05/30/17 10:48 Constitutional: Yes: Well Nourished, No Distress, Calm Cardiovascular: Yes: Regular Rate and Rhythm, Murmur (grade III/ Systolic murmer) Respiratory: Yes: Regular, Mechanically Ventilated, Wheezes (inspiratory) Musculoskeletal: Yes: WNL Extremities: Yes: WNL Edema: No Peripheral Pulses WNL: Yes Integumentary: Yes: Erythema, Rash Neurological: Yes: Alert, Oriented Psychiatric: Yes: Alert, Oriented Labs: CBC, BMP 05/28/17 06:25 05/28/17 06:25 INR, PTT INR 1.27 (0.82-1.09) H 05/27/17 14:10 Problem List - Problems (1) Chronic respiratory failure Assessment/Plan: -on mechanical vent -seen by pulmonary - do not need to deflate tracheotomy cuff during meals -neb tx Code(s): J96.10 - CHRONIC RESPIRATORY FAILURE, UNSP W HYPOXIA OR HYPERCAPNIA (2) Hypotension Assessment/Plan: -normalized Code(s): I95.9 - HYPOTENSION, UNSPECIFIED (3) Facial rash Assessment/Plan: -bactroban ointment -IV abx -ID consult -Dermatology consult appreciated -WBC normal, afebrile, VSS -Instructions as per dermatology:use unscented white dove soap and apply vaseline or aquaphor for daily skin care. -HC 2.5 % topical Assessment/Plan see problem list
[2017-05-30] MEDS: DOCUSATE SODIUM 100 MG CAPSULE (FP) PO SCH (22:42)
[2017-05-30] MEDS: ATORVASTATIN CA 10 MG TABLET (FP) PO SCH (22:43)
[2017-05-30] MEDS: MIRTAZAPINE 15 MG TABLET (FP) PO SCH (22:43)
[2017-05-31] MEDS: MUPIROCIN 2% TOPICAL OINTMENT 22 GM TUBE TP SCH ×3 (07:01→22:06)
--- NOTE | 2017-05-31 09:45 | PN ---
Progress Note (short form) - Note Progress Note: Awake on AC mode of vent. Facial rash improving. NAD. No acute events overnight. Intake & Output 05/28/17 05/29/17 05/30/17 05/31/17 23:59 23:59 23:59 23:59 Intake Total 2275 2800 2500 825 Balance 2275 2800 2500 825 Weight 100 lb 9.6 oz Last Vital Signs Temp Pulse Resp BP Pulse Ox 98.9 F 98 H 14 109/80 99 05/30/17 22:00 05/30/17 22:00 05/31/17 06:30 05/30/17 22:00 05/30/17 21:00 Active Medications Acetaminophen (Tylenol -) 650 mg PO Q4H PRN PRN Reason: FEVER OR PAIN Albuterol Sulfate (Ventolin 0.083% Nebulizer Soln -) 1 amp NEB Q4H PRN PRN Reason: SHORT OF BREATH/WHEEZING Last Admin: 05/30/17 10:46 Dose: 1 amp Apixaban (Eliquis -) 2.5 mg PO BID [facility] Last Admin: 05/30/17 22:43 Dose: 2.5 mg Artificial Tears (Artificial Tears) 1 drop OU DAILY [facility] Last Admin: 05/29/17 11:00 Dose: 1 drop Atorvastatin Calcium (Lipitor -) 10 mg PO HS [facility] Last Admin: 05/30/17 22:43 Dose: 10 mg Docusate Sodium (Colace -) 300 mg PO HS [facility] Last Admin: 05/30/17 22:42 Dose: 300 mg Ferrous Sulfate (Feosol -) 325 mg PO BID [facility] Last Admin: 05/30/17 22:43 Dose: 325 mg Hydrocortisone (Hytone 2.5% Lotion -) 1 applic TP DAILY [facility] Last Admin: 05/30/17 10:01 Dose: 1 applic CEFTRIAXONE 1 G/50 ML PREMIX (Ceftriaxone 1 Gm-D5w Bag) 50 mls @ 100 mls/hr IVPB DAILY [facility] Last Admin: 05/29/17 11:13 Dose: 100 mls/hr Potassium Chloride/Dextrose/Sod Cl (D5-1/2ns+20 Meq Kcl -) 1,000 mls @ 75 mls/ hr IV ASDIR [facility] Last Admin: 05/30/17 22:57 Dose: 75 mls/hr Lactobacillus Acidophilus (Bacid -) 1 tab PO DAILY [facility] Last Admin: 05/29/17 11:16 Dose: 1 tab Loratadine (Claritin -) 10 mg PO DAILY [facility] Last Admin: 05/29/17 11:15 Dose: 10 mg Metoprolol Tartrate (Lopressor -) 12.5 mg PO BID [facility] Last Admin: 05/30/17 22:42 Dose: 12.5 mg Mirtazapine (Remeron -) 15 mg PO HS [facility] Last Admin: 05/30/17 22:43 Dose: 15 mg Multivitamins/Minerals/Vitamin C (Tab-A-Vit -) 1 tab PO DAILY [facility] Last Admin: 05/29/17 11:15 Dose: 1 tab Mupirocin (Bactroban 2% Ointment -) 1 applic TP TID [facility] Last Admin: 05/31/17 07:01 Dose: 1 applic Constitutional: Yes: NAD on AC Mode of vent Eyes: Yes: WNL HENT: Yes: Trach intact Neck: Yes: WNL Cardiovascular: Yes: Pulse Irregular, S1, S2 Respiratory: Yes: few scattered rhonchi Gastrointestinal: Yes: Normal Bowel Sounds, Soft Extremities: Yes: WNL Edema: No Labs: Laboratory Results - last 24 hr 05/30/17 16:15 Vancomycin Pre-Dose 22.726 H* Problem List - Problems (1) Anemia Code(s): D64.9 - ANEMIA, UNSPECIFIED (2) Cellulitis Code(s): L03.90 - CELLULITIS, UNSPECIFIED Qualifiers: Site of cellulitis: face Qualified Code(s): L03.211 - Cellulitis of face; L03.211 - Cellulitis of face (3) AICD (automatic cardioverter/defibrillator) present Code(s): Z95.810 - PRESENCE OF AUTOMATIC (IMPLANTABLE) CARDIAC DEFIBRILLATOR (4) Atelectasis Code(s): J98.11 - ATELECTASIS (5) COPD (chronic obstructive pulmonary disease) Code(s): J44.9 - CHRONIC OBSTRUCTIVE PULMONARY DISEASE, UNSPECIFIED (6) Chronic respiratory failure Code(s): J96.10 - CHRONIC RESPIRATORY FAILURE, UNSP W HYPOXIA OR HYPERCAPNIA (7) Facial cellulitis Code(s): L03.211 - CELLULITIS OF FACE (8) Fever Code(s): R50.9 - FEVER, UNSPECIFIED (9) Functional quadriplegia Code(s): R53.2 - FUNCTIONAL QUADRIPLEGIA (10) HTN (hypertension) Code(s): I10 - ESSENTIAL (PRIMARY) HYPERTENSION (11) Hypotension Code(s): I95.9 - HYPOTENSION, UNSPECIFIED (12) Respirator dependence Code(s): Z99.11 - DEPENDENCE ON RESPIRATOR [VENTILATOR] STATUS Assessment/Plan IMP CHRONIC RESPIRATORY FAILURE COPD FACIAL CELLULITIS HYPOTENSION AFIB S/P AICD H/O CVA H/O CARDIAC ARREST ANEMIA PLAN ANTIBIOTICS PER ID INHALED BRONCHODILATORS CONTINUE VENT SUPPORT ON AC MODE Dr Medina
[2017-05-31] MEDS: CEFTRIAXONE 1 G/50 ML PREMIX 50 ML IVPB SCH ×2 (10:00→13:08)
--- NOTE | 2017-05-31 10:16 | PN ---
Progress Note, Physician Chief Complaint: recurrent facial rash History of Present Illness: NAD, in bed, on mechanical vent -facial rash improved, warm to touch, no pruritus, eyes burn. -afebrile -seen by ID -seen by dermatology and pulmonary as well -on IV abx - Current Medication List Current Medications: Active Medications Acetaminophen (Tylenol -) 650 mg PO Q4H PRN PRN Reason: FEVER OR PAIN Albuterol Sulfate (Ventolin 0.083% Nebulizer Soln -) 1 amp NEB Q4H PRN PRN Reason: SHORT OF BREATH/WHEEZING Last Admin: 05/30/17 10:46 Dose: 1 amp Apixaban (Eliquis -) 2.5 mg PO BID [facility] Last Admin: 05/30/17 22:43 Dose: 2.5 mg Artificial Tears (Artificial Tears) 1 drop OU DAILY [facility] Last Admin: 05/29/17 11:00 Dose: 1 drop Atorvastatin Calcium (Lipitor -) 10 mg PO HS [facility] Last Admin: 05/30/17 22:43 Dose: 10 mg Docusate Sodium (Colace -) 300 mg PO HS [facility] Last Admin: 05/30/17 22:42 Dose: 300 mg Ferrous Sulfate (Feosol -) 325 mg PO BID [facility] Last Admin: 05/30/17 22:43 Dose: 325 mg Hydrocortisone (Hytone 2.5% Lotion -) 1 applic TP DAILY [facility] Last Admin: 05/30/17 10:01 Dose: 1 applic CEFTRIAXONE 1 G/50 ML PREMIX (Ceftriaxone 1 Gm-D5w Bag) 50 mls @ 100 mls/hr IVPB DAILY [facility] Last Admin: 05/29/17 11:13 Dose: 100 mls/hr Potassium Chloride/Dextrose/Sod Cl (D5-1/2ns+20 Meq Kcl -) 1,000 mls @ 75 mls/ hr IV ASDIR [facility] Last Admin: 05/30/17 22:57 Dose: 75 mls/hr Lactobacillus Acidophilus (Bacid -) 1 tab PO DAILY [facility] Last Admin: 05/29/17 11:16 Dose: 1 tab Loratadine (Claritin -) 10 mg PO DAILY [facility] Last Admin: 05/29/17 11:15 Dose: 10 mg Metoprolol Tartrate (Lopressor -) 12.5 mg PO BID [facility] Last Admin: 05/30/17 22:42 Dose: 12.5 mg Mirtazapine (Remeron -) 15 mg PO HS [facility] Last Admin: 05/30/17 22:43 Dose: 15 mg Multivitamins/Minerals/Vitamin C (Tab-A-Vit -) 1 tab PO DAILY [facility] Last Admin: 05/29/17 11:15 Dose: 1 tab Mupirocin (Bactroban 2% Ointment -) 1 applic TP TID [facility] Last Admin: 05/31/17 07:01 Dose: 1 applic - Objective Vital Signs: Vital Signs Temperature 98.9 F 05/30/17 22:00 Pulse Rate 98 H 05/30/17 22:00 Respiratory Rate 14 05/31/17 06:30 Blood Pressure 109/80 05/30/17 22:00 O2 Sat by Pulse Oximetry (%) 99 05/30/17 21:00 Constitutional: Yes: Well Nourished, No Distress, Calm Cardiovascular: Yes: Regular Rate and Rhythm Respiratory: Yes: Regular Musculoskeletal: Yes: WNL Extremities: Yes: WNL Edema: No Peripheral Pulses WNL: Yes Integumentary: Yes: Rash (Facial) Neurological: Yes: Alert, Oriented Psychiatric: Yes: Alert, Oriented Labs: CBC, BMP 05/28/17 06:25 05/28/17 06:25 INR, PTT INR 1.27 (0.82-1.09) H 05/27/17 14:10 Problem List - Problems (1) Chronic respiratory failure Assessment/Plan: -on mechanical vent -seen by pulmonary - do not need to deflate tracheotomy cuff during meals -neb tx Code(s): J96.10 - CHRONIC RESPIRATORY FAILURE, UNSP W HYPOXIA OR HYPERCAPNIA (2) Hypotension Assessment/Plan: -normalized Code(s): I95.9 - HYPOTENSION, UNSPECIFIED (3) Facial rash Assessment/Plan: -bactroban ointment -IV abx -ID consult -Dermatology consult appreciated -WBC normal, afebrile, VSS -Instructions as per dermatology:use unscented white dove soap and apply vaseline or aquaphor for daily skin care. -HC 2.5 % topical Assessment/Plan see problem list
[2017-05-31] MEDS ORDERED: PT OWN MED DRAWER 7, Y5N ONE ×3 (10:49→21:37)
[2017-05-31] MEDS: MULTIVITAMINS (DAILY MVI) TABLET (FP) PO SCH (11:05)
[2017-05-31] MEDS: APIXABAN 2.5 MG TABLET PO SCH ×2 (11:05→22:14)
[2017-05-31] MEDS: LORATADINE 10 MG TABLET PO SCH (11:05)
[2017-05-31] MEDS: METOPROLOL TARTRATE 25 MG TABLET (FP) PO SCH ×2 (11:05→22:05)
[2017-05-31] MEDS: LACTOBACILLUS ACIDOPHILUS 1 EACH TAB (FP) PO SCH (11:05)
[2017-05-31] MEDS: FERROUS SO4 325 MG TABLET (FP) PO SCH ×2 (11:05→22:16)
[2017-05-31] MEDS ORDERED: SODIUM CHLORIDE 500 ML IV STA (11:42)
[2017-05-31] MEDS ORDERED: SODIUM CHLORIDE 500 ML IV ONE (11:45)
[2017-05-31] MEDS: ARTIFICIAL TEARS (POLYVINYL ALCOHOL 1.4%) OPTH DROPS OU SCH (12:23)
--- NOTE | 2017-05-31 14:23 | HOSP ---
Subjective - Review of Symptoms Events since last encounter: Called by nurse to evaluate the patient. Per nurse, patient is more lethargic and sleepy today compared to her baseline. She's also found to be hypotensive while on d5-1/2ns, but her IV was infiltrated and leaking. She might not have been adequately fluid resuscitated. Received 500ml IV bolus x 1 and getting the second bolus. Will cont. D5-1/2ns at current rate. Physical Examination Vital Signs: Vital Signs Temperature 99.4 F 05/31/17 12:30 Pulse Rate 67 05/31/17 13:21 Respiratory Rate 16 05/31/17 14:08 Blood Pressure 77/40 05/31/17 13:21 O2 Sat by Pulse Oximetry (%) 99 05/31/17 10:10 Constitutional: Yes: Other (combative, agitated, trached on mechanical ventilation) Cardiovascular: Yes: Regular Rate and Rhythm Respiratory: Yes: Mechanically Ventilated Labs: CBC, BMP 05/28/17 06:25 05/28/17 06:25 Hospitalist Encounter Assessment: Hypotension - Normotensive at baseline - Inadequate fluid resusitation due to IV leak - Receiving 2 500ml IV boluses - Cont. scheduled d5-1/2ns @ 72cc/hr * consider switching to NS if still hypotensive - Frequent assessment of patient's fluid status - Stat labs ordered and further care resumed by PCP Visit type - Emergency Visit Emergency Visit: No - New Patient This patient is new to me today: Yes Date on this admission: 05/31/17 - Critical Care Critical Care patient: No
[2017-05-31] MEDS: HYDROCORTISONE 2.5% LOTION - 1 BOTTLE TP SCH (14:24)
[2017-05-31] MEDS ORDERED: SODIUM CHLORIDE 500 ML IV SCH (14:45)
[2017-05-31] MEDS: NEOMYCIN/POLYMYX/HC OPHTHALMIC SUSPENSION 7.5 ML BOTTLE OU SCH ×2 (14:48→22:13)
[2017-05-31 15:56] LABS: MCH 27.8 pg (25.7-33.7); MCHC 32.6 g/dl (32.0-36.0); MEAN CELL VOLUME 85.3 fl (80-96); MEAN PLT VOLUME 8.9 fl (7.5-11.1); NEUTROPHILS 60.7 % (42.8-82.8); PLATELET COUNT 130 K/MM3 (134-434); RDW 16.5 % (11.6-15.6)
[2017-05-31 16:10] LABS: ALBUMIN 2.3 g/dl (3.4-5.0); ALK PHOS 68 U/L (45-117); ANION GAP 9 (8-16); BILIRUBIN,TOTAL 0.2 mg/dL (0.2-1.0); CALCIUM 7.7 mg/dL (8.5-10.1); CO2 24 mmol/L (21-32); CREATININE 0.7 mg/dL (0.55-1.02); GLUCOSE,RANDOM 79 mg/dL (74-106); SGOT/AST 10 U/L (15-37); SGPT/ALT 8 U/L (12-78); TOT PROT 5.7 g/dl (6.4-8.2)
[2017-05-31] MEDS: D5-1/2NS+20 MEQ KCL - 1,000 ML IV SCH (17:10)
[2017-05-31 18:30] LABS: ARTERIAL BLD GAS O2 SATURATION 97.4 % (90-98.9); ARTERIAL BLOOD GAS BASE EXCESS 3.2 meq/l (-2-2); ARTERIAL BLOOD GAS HCO3 27.7 meq/L (22-26); ARTERIAL BLOOD GAS PO2 90.5 mmHg (68-100); ARTERIAL BLOOD GAS pH 7.42 (7.35-7.45)
[2017-05-31 18:32] LABS: ALLENS TEST POSITIVE; ART PUNCT SITE RIGHT RADIAL; PT. ON O2? YES
[2017-05-31 18:33] LABS: LPM/O2% 40; MECH. VENT. YES; TYPE OF O2 MECHANICAL VENT
[2017-05-31 18:34] LABS: VENT RATE 14; VT/PRESS 450
[2017-05-31] MEDS: DOCUSATE SODIUM 100 MG CAPSULE (FP) PO SCH (22:07)
[2017-05-31] MEDS: ATORVASTATIN CA 10 MG TABLET (FP) PO SCH (22:14)
[2017-05-31] MEDS: MIRTAZAPINE 15 MG TABLET (FP) PO SCH (22:15)
[2017-06-01] MEDS: NEOMYCIN/POLYMYX/HC OPHTHALMIC SUSPENSION 7.5 ML BOTTLE OU SCH ×3 (06:08→22:43)
[2017-06-01] MEDS: MUPIROCIN 2% TOPICAL OINTMENT 22 GM TUBE TP SCH ×3 (06:10→22:43)
[2017-06-01] MEDS: D5-1/2NS+20 MEQ KCL - 1,000 ML IV SCH (10:00)
--- NOTE | 2017-06-01 10:44 | PN ---
Progress Note, Physician Chief Complaint: recurrent facial rash History of Present Illness: NAD, in bed, on mechanical vent -facial rash improved, warm to touch, no pruritus, eyes burn. -afebrile -seen by ID -seen by dermatology and pulmonary as well -on IV abx -hypotension noted - Current Medication List Current Medications: Active Medications Acetaminophen (Tylenol -) 650 mg PO Q4H PRN PRN Reason: FEVER OR PAIN Last Admin: 06/01/17 03:55 Dose: 650 mg Albuterol Sulfate (Ventolin 0.083% Nebulizer Soln -) 1 amp NEB Q4H PRN PRN Reason: SHORT OF BREATH/WHEEZING Last Admin: 05/30/17 10:46 Dose: 1 amp Apixaban (Eliquis -) 2.5 mg PO BID [facility] Last Admin: 05/31/17 22:14 Dose: 2.5 mg Artificial Tears (Artificial Tears) 1 drop OU DAILY [facility] Last Admin: 05/31/17 12:23 Dose: 1 drop Atorvastatin Calcium (Lipitor -) 10 mg PO HS [facility] Last Admin: 05/31/17 22:14 Dose: 10 mg Docusate Sodium (Colace -) 300 mg PO HS [facility] Last Admin: 05/31/17 22:07 Dose: 300 mg Ferrous Sulfate (Feosol -) 325 mg PO BID [facility] Last Admin: 05/31/17 22:16 Dose: 325 mg Hydrocortisone (Hytone 2.5% Lotion -) 1 applic TP DAILY [facility] Last Admin: 05/31/17 14:24 Dose: 1 applic CEFTRIAXONE 1 G/50 ML PREMIX (Ceftriaxone 1 Gm-D5w Bag) 50 mls @ 100 mls/hr IVPB DAILY [facility] Last Admin: 05/31/17 13:08 Dose: 100 mls/hr Potassium Chloride/Dextrose/Sod Cl (D5-1/2ns+20 Meq Kcl -) 1,000 mls @ 75 mls/ hr IV ASDIR [facility] Last Admin: 05/31/17 17:10 Dose: 75 mls/hr Lactobacillus Acidophilus (Bacid -) 1 tab PO DAILY [facility] Last Admin: 05/31/17 11:05 Dose: Not Given Loratadine (Claritin -) 10 mg PO DAILY [facility] Last Admin: 05/31/17 11:05 Dose: Not Given Metoprolol Tartrate (Lopressor -) 12.5 mg PO BID [facility] Last Admin: 05/31/17 22:05 Dose: Not Given Mirtazapine (Remeron -) 15 mg PO HS [facility] Last Admin: 05/31/17 22:15 Dose: Not Given Multivitamins/Minerals/Vitamin C (Tab-A-Vit -) 1 tab PO DAILY [facility] Last Admin: 05/31/17 11:05 Dose: Not Given Mupirocin (Bactroban 2% Ointment -) 1 applic TP TID [facility] Last Admin: 06/01/17 06:10 Dose: 1 applic Neomycin/Polymyxin/Hydrocortisone (Cortisporin Ophthalmic Suspension -) 1 drop OU TID [facility] Last Admin: 06/01/17 06:08 Dose: 1 drop - Objective Vital Signs: Vital Signs Temperature 99.3 F 06/01/17 06:32 Pulse Rate 61 06/01/17 06:32 Respiratory Rate 14 06/01/17 06:50 Blood Pressure 91/53 06/01/17 06:32 O2 Sat by Pulse Oximetry (%) 95 05/31/17 21:00 Constitutional: Yes: Well Nourished, No Distress, Calm Cardiovascular: Yes: Regular Rate and Rhythm Respiratory: Yes: Regular, Mechanically Ventilated Gastrointestinal: Yes: Normal Bowel Sounds Edema: No Peripheral Pulses WNL: Yes Integumentary: Yes: Rash (facial- improving) Neurological: Yes: Alert, Oriented Psychiatric: Yes: Alert, Oriented Labs: CBC, BMP 05/31/17 14:40 05/31/17 14:40 INR, PTT INR 1.27 (0.82-1.09) H 05/27/17 14:10 Problem List - Problems (1) Chronic respiratory failure Assessment/Plan: -on mechanical vent -seen by pulmonary - do not need to deflate tracheotomy cuff during meals -neb tx Code(s): J96.10 - CHRONIC RESPIRATORY FAILURE, UNSP W HYPOXIA OR HYPERCAPNIA (2) Hypotension Assessment/Plan: -normalized after IVF -hold metoprolol -cardiology consult Code(s): I95.9 - HYPOTENSION, UNSPECIFIED (3) Facial rash Assessment/Plan: -bactroban ointment -IV abx -ID consult -Dermatology consult appreciated -WBC normal, afebrile, VSS -Instructions as per dermatology:use unscented white dove soap and apply vaseline or aquaphor for daily skin care. -HC 2.5 % topical Assessment/Plan see problem list
[2017-06-01] MEDS ORDERED: PT OWN MED DRAWER 7, Y5N ONE ×5 (10:47→18:54)
[2017-06-01] MEDS: MULTIVITAMINS (DAILY MVI) TABLET (FP) PO SCH (10:58)
[2017-06-01] MEDS: CEFTRIAXONE 1 G/50 ML PREMIX 50 ML IVPB SCH (10:58)
[2017-06-01] MEDS: FERROUS SO4 325 MG TABLET (FP) PO SCH ×2 (10:58→22:45)
[2017-06-01] MEDS: LORATADINE 10 MG TABLET PO SCH (10:58)
[2017-06-01] MEDS: LACTOBACILLUS ACIDOPHILUS 1 EACH TAB (FP) PO SCH (10:58)
[2017-06-01] MEDS: APIXABAN 2.5 MG TABLET PO SCH ×2 (10:58→22:44)
[2017-06-01] MEDS: METOPROLOL TARTRATE 25 MG TABLET (FP) PO SCH ×2 (10:59→22:46)
[2017-06-01] MEDS: HYDROCORTISONE 2.5% LOTION - 1 BOTTLE TP SCH (10:59)
[2017-06-01] MEDS: ARTIFICIAL TEARS (POLYVINYL ALCOHOL 1.4%) OPTH DROPS OU SCH (11:25)
--- NOTE | 2017-06-01 11:40 | CON.CARD ---
Consult Consult Specialty:: Cardiology Referred by:: Dr. Velasquez Reason for Consultation:: Hypotension - History of Present Illness Chief Complaint: Low BP History of Present Illness: 82 year old woman from [facility], with a PMHx of paroxysmal atrial fibrillation on Eliquis, dCHF (normal LV systolic function from echocardiogram on 04/18/2016) , cardiac /arrest (1998), s/p AICD implantation, COPD, s/p trach, vent dependent , UTIs and GI bleeds, CVA, Dementia, Parkinson's, GERD admitted with increased redness of face. She was seen by Derm, pulmonary and ID. Patient was noted with hypotension and received IV fluid. She is vent dependent without acute distress. - History Source History Provided By: Medical Record Limitations to Obtaining History: No Limitations - Past Medical History [employer] BR[employer] F[employer]ER: Yes: CVA, Dementia, Parkinson's Cardio/Vascular: Yes: AFIB (Paroxysmal), CHF, HTN, Hyperlipdemia, Other (h/o cardiac arrest s/p AICD - Single lead) Pulmonary: Yes: COPD, Other (respiratory failure) Gastrointestinal: Yes: GERD - Past Surgical History Past Surgical History: Yes: AICD ([employer], implanted following cardiac arrest) , Cataract Removal (2011) - Alcohol/Substance Use Hx Alcohol Use: No - Smoking History Smoking history: Unknown if ever smoked Have you smoked in the past 12 months: No Aproximately how many cigarettes per day: 0 - Social History Usual Living Arrangement: Custodial History of Recent Travel: No Home Medications - Allergies Allergies/Adverse Reactions: Allergies Allergy/AdvReac Type Severity Reaction Status Date / Time doxycycline Allergy Intermediate Verified 04/22/17 23:48 CLAMS Allergy Intermediate Hives Uncoded 04/22/17 23:48 - Home Medications Home Medications: Ambulatory Orders Docusate Sodium 300 mg PO HS 10/19/16 Albuterol 0.083% Nebulizer Yady [Ventolin 0.083% Nebulizer Soln -] 1 amp NEB Q4H PRN #180 amp 03/20/17 Apixaban [Eliquis -] 2.5 mg PO BID tablet 03/20/17 Atorvastatin Ca [Lipitor] 10 mg PO HS #30 tablet 03/20/17 Ferrous Sulfate 325 mg PO BID #60 tab 03/20/17 Lactobacillus Acidophilus [Bacid -] 1 tab PO DAILY #30 tab 03/20/17 Loratadine [Claritin -] 10 mg PO DAILY #30 tablet 03/20/17 Mirtazapine [Remeron -] 15 mg PO HS #30 tablet 03/20/17 Multivitamins [Multivit ([facility] Formulary)] 1 tab PO DAILY #30 tab 03/20/17 Nystatin Powder [Nystop Powder -] 1 applic TP DAILY #1 applic 03/20/17 Pantoprazole Sodium [Protonix -] 40 mg PO DAILY #30 tab 03/20/17 Metoprolol Tartrate [Lopressor -] 12.5 mg PO BID tablet 05/01/17 Mupirocin Ointment [Bactroban 2% Ointment -] 1 applic TP TID applic 05/01/17 Ascorbic Acid/Ascorbate Sodium [Vitamin C 500 mg Wafer] 500 mg PO DAILY Hypromellose 0.5% Opth Soln [Artificial Tears] 1 drop OU DAILY 05/27/17 Review of Systems - Review of Systems Constitutional: reports: Weakness Eyes: reports: No Symptoms Neck: reports: No Symptoms Cardiovascular: reports: Shortness of Breath, Other (hypotension.) Gastrointestinal: reports: No Symptoms Vital Signs: Vital Signs Temperature 98.8 F 06/01/17 10:56 Pulse Rate 69 06/01/17 10:56 Respiratory Rate 14 06/01/17 10:56 Blood Pressure 91/50 06/01/17 10:56 O2 Sat by Pulse Oximetry (%) 95 06/01/17 10:44 Constitutional: Yes: No Distress, Calm, Thin, Other (Chronic) Eyes: Yes: Conjunctiva Clear HENT: Yes: Atraumatic, Normocephalic Neck: Yes: Supple, Other (Trach in place.) Respiratory: Yes: Regular, Diminished, Mechanically Ventilated Gastrointestinal: Yes: Normal Bowel Sounds, Soft Cardiovascular: Yes: Regular Rate and Rhythm JVD: No Carotid Bruit: No Edema: No Peripheral Pulses WNL: Yes - Other Data Labs, Other Data: CBC, BMP 05/31/17 14:40 05/31/17 14:40 INR, PTT INR 1.27 (0.82-1.09) H 05/27/17 14:10 Imaging - Results EKG: Image Reviewed (Sinus rhythm.) Assessment/Plan 82 year old woman from [facility], with a PMHx of paroxysmal atrial fibrillation on Eliquis, dCHF (normal LV systolic function from echocardiogram on 04/18/2016) , cardiac /arrest (1998), s/p AICD implantation, COPD, s/p trach, vent dependent , UTIs and GI bleeds, CVA, Dementia, Parkinson's, GERD admitted with increased redness of face. She was seen by Derm, pulmonary and ID. Patient was noted with hypotension and received IV fluid. BP returned to normal range. She is vent dependent without acute distress. 1) Hypotension, unclear etiolgoy: Sepsis vs dehydration. May use Normal Saline for low BP since she has preserved LV systolic function. She has no physical signs of fluid overload today. 2) Paroxysmal atrial fibrillation. She is in normal sinus rhythm. Continue Eliquis 2.5 mg BID. Please call us for reconsult as needed.
--- NOTE | 2017-06-01 15:08 | PN ---
Progress Note (short form) - Note Progress Note: PULMONARY AWAKE/TOLERATING CURRENT VENT SETTINGS VSS/AFEBRILE RIGHT DALILA-ORBITAL RESOLVING EDEMA/ERYTHEMA DIMINISHED B/L BREATH SOUNDS S1S2 BS+/PEG NO EDEMA LABS/MEDS/NOTES/IMAGES/ REVIEWED IMP CHRONIC RESPIRATORY FAILURE COPD FACIAL CELLULITIS HYPOTENSION AFIB S/P AICD H/O CVA H/O CARDIAC ARREST ANEMIA PLAN ANTIBIOTICS PER ID INHALED BRONCHODILATORS CONTINUE VENT SUPPORT ON AC MODE Brandi FLOREZ MD
--- NOTE | 2017-06-01 16:08 | PN ---
Progress Note, Physician History of Present Illness: Awake, lethargic Low grade temp Hypotension yesterday noted Facial erythema improving - Current Medication List Current Medications: Active Medications Acetaminophen (Tylenol -) 650 mg PO Q4H PRN PRN Reason: FEVER OR PAIN Last Admin: 06/01/17 03:55 Dose: 650 mg Albuterol Sulfate (Ventolin 0.083% Nebulizer Soln -) 1 amp NEB Q4H PRN PRN Reason: SHORT OF BREATH/WHEEZING Last Admin: 05/30/17 10:46 Dose: 1 amp Apixaban (Eliquis -) 2.5 mg PO BID [facility] Last Admin: 06/01/17 10:58 Dose: 2.5 mg Artificial Tears (Artificial Tears) 1 drop OU DAILY [facility] Last Admin: 06/01/17 11:25 Dose: 1 drop Atorvastatin Calcium (Lipitor -) 10 mg PO HS [facility] Last Admin: 05/31/17 22:14 Dose: 10 mg Docusate Sodium (Colace -) 300 mg PO HS [facility] Last Admin: 05/31/17 22:07 Dose: 300 mg Ferrous Sulfate (Feosol -) 325 mg PO BID [facility] Last Admin: 06/01/17 10:58 Dose: 325 mg Hydrocortisone (Hytone 2.5% Lotion -) 1 applic TP DAILY [facility] Last Admin: 06/01/17 10:59 Dose: 1 applic CEFTRIAXONE 1 G/50 ML PREMIX (Ceftriaxone 1 Gm-D5w Bag) 50 mls @ 100 mls/hr IVPB DAILY [facility] Last Admin: 06/01/17 10:58 Dose: 100 mls/hr Potassium Chloride/Dextrose/Sod Cl (D5-1/2ns+20 Meq Kcl -) 1,000 mls @ 75 mls/ hr IV ASDIR [facility] Last Admin: 05/31/17 17:10 Dose: 75 mls/hr Lactobacillus Acidophilus (Bacid -) 1 tab PO DAILY [facility] Last Admin: 06/01/17 10:58 Dose: 1 tab Loratadine (Claritin -) 10 mg PO DAILY [facility] Last Admin: 06/01/17 10:58 Dose: 10 mg Metoprolol Tartrate (Lopressor -) 12.5 mg PO BID [facility] Last Admin: 06/01/17 10:59 Dose: Not Given Mirtazapine (Remeron -) 15 mg PO HS [facility] Last Admin: 05/31/17 22:15 Dose: Not Given Multivitamins/Minerals/Vitamin C (Tab-A-Vit -) 1 tab PO DAILY [facility] Last Admin: 06/01/17 10:58 Dose: 1 tab Mupirocin (Bactroban 2% Ointment -) 1 applic TP TID [facility] Last Admin: 06/01/17 14:54 Dose: 1 applic Neomycin/Polymyxin/Hydrocortisone (Cortisporin Ophthalmic Suspension -) 1 drop OU TID [facility] Last Admin: 06/01/17 14:54 Dose: 1 drop - Objective Vital Signs: Vital Signs Temperature 99.4 F 06/01/17 15:57 Pulse Rate 72 06/01/17 15:57 Respiratory Rate 15 06/01/17 15:57 Blood Pressure 119/63 06/01/17 15:57 O2 Sat by Pulse Oximetry (%) 95 06/01/17 10:44 Constitutional: Yes: No Distress HENT: Yes: Other (decreased facial erythema) Cardiovascular: Yes: Regular Rate and Rhythm, S1, S2 Respiratory: Yes: Mechanically Ventilated Gastrointestinal: Yes: Normal Bowel Sounds, Soft. No: Tenderness Edema: No Labs: CBC, BMP 05/31/17 14:40 05/31/17 14:40 INR, PTT INR 1.27 (0.82-1.09) H 05/27/17 14:10 Assessment/Plan Recurrent facial cellulitis Chronic respiratory failure Continue ceftriaxone additional 24h Topical steroid
[2017-06-01] MEDS: ATORVASTATIN CA 10 MG TABLET (FP) PO SCH (22:43)
[2017-06-01] MEDS: DOCUSATE SODIUM 100 MG CAPSULE (FP) PO SCH (22:44)
[2017-06-01] MEDS: MIRTAZAPINE 15 MG TABLET (FP) PO SCH (22:45)
[2017-06-02] MEDS: D5-1/2NS+20 MEQ KCL - 1,000 ML IV SCH ×2 (02:36→15:59)
[2017-06-02] MEDS: ALBUTEROL SO4 0.083% IH SOL 2.5 MG/3 ML VIAL.NEB. NEB PRN ×2 (06:00→09:44)
[2017-06-02] MEDS: MUPIROCIN 2% TOPICAL OINTMENT 22 GM TUBE TP SCH ×3 (06:01→21:59)
[2017-06-02] MEDS: NEOMYCIN/POLYMYX/HC OPHTHALMIC SUSPENSION 7.5 ML BOTTLE OU SCH ×3 (06:01→22:00)
[2017-06-02] MEDS: LACTOBACILLUS ACIDOPHILUS 1 EACH TAB (FP) PO SCH (09:26)
[2017-06-02] MEDS: CEFTRIAXONE 1 G/50 ML PREMIX 50 ML IVPB SCH (09:26)
[2017-06-02] MEDS: ARTIFICIAL TEARS (POLYVINYL ALCOHOL 1.4%) OPTH DROPS OU SCH (09:26)
[2017-06-02] MEDS: LORATADINE 10 MG TABLET PO SCH (09:27)
[2017-06-02] MEDS: FERROUS SO4 325 MG TABLET (FP) PO SCH ×2 (09:27→22:00)
[2017-06-02] MEDS: HYDROCORTISONE 2.5% LOTION - 1 BOTTLE TP SCH (09:27)
[2017-06-02] MEDS: APIXABAN 2.5 MG TABLET PO SCH ×2 (09:27→22:00)
[2017-06-02] MEDS: METOPROLOL TARTRATE 25 MG TABLET (FP) PO SCH ×2 (09:28→22:00)
[2017-06-02] MEDS: MULTIVITAMINS (DAILY MVI) TABLET (FP) PO SCH (09:28)
--- NOTE | 2017-06-02 10:19 | PN ---
Progress Note, Physician History of Present Illness: Awake, lethargic low grade temp noted Facial erythema improving WBC WNL - Current Medication List Current Medications: Active Medications Acetaminophen (Tylenol -) 650 mg PO Q4H PRN PRN Reason: FEVER OR PAIN Last Admin: 06/01/17 03:55 Dose: 650 mg Albuterol Sulfate (Ventolin 0.083% Nebulizer Soln -) 1 amp NEB Q4H PRN PRN Reason: SHORT OF BREATH/WHEEZING Last Admin: 06/02/17 09:44 Dose: 1 amp Apixaban (Eliquis -) 2.5 mg PO BID [facility] Last Admin: 06/02/17 09:27 Dose: 2.5 mg Artificial Tears (Artificial Tears) 1 drop OU DAILY [facility] Last Admin: 06/02/17 09:26 Dose: 1 drop Atorvastatin Calcium (Lipitor -) 10 mg PO HS [facility] Last Admin: 06/01/17 22:43 Dose: 10 mg Docusate Sodium (Colace -) 300 mg PO HS [facility] Last Admin: 06/01/17 22:44 Dose: 300 mg Ferrous Sulfate (Feosol -) 325 mg PO BID [facility] Last Admin: 06/02/17 09:27 Dose: 325 mg Hydrocortisone (Hytone 2.5% Lotion -) 1 applic TP DAILY [facility] Last Admin: 06/02/17 09:27 Dose: 1 applic CEFTRIAXONE 1 G/50 ML PREMIX (Ceftriaxone 1 Gm-D5w Bag) 50 mls @ 100 mls/hr IVPB DAILY [facility] Last Admin: 06/02/17 09:26 Dose: 100 mls/hr Potassium Chloride/Dextrose/Sod Cl (D5-1/2ns+20 Meq Kcl -) 1,000 mls @ 75 mls/ hr IV ASDIR [facility] Last Admin: 06/02/17 02:36 Dose: 75 mls/hr Lactobacillus Acidophilus (Bacid -) 1 tab PO DAILY [facility] Last Admin: 06/02/17 09:26 Dose: 1 tab Loratadine (Claritin -) 10 mg PO DAILY [facility] Last Admin: 06/02/17 09:27 Dose: 10 mg Metoprolol Tartrate (Lopressor -) 12.5 mg PO BID [facility] Last Admin: 06/02/17 09:28 Dose: 12.5 mg Mirtazapine (Remeron -) 15 mg PO HS [facility] Last Admin: 06/01/17 22:45 Dose: 15 mg Multivitamins/Minerals/Vitamin C (Tab-A-Vit -) 1 tab PO DAILY [facility] Last Admin: 06/02/17 09:28 Dose: 1 tab Mupirocin (Bactroban 2% Ointment -) 1 applic TP TID [facility] Last Admin: 06/02/17 06:01 Dose: 1 applic Neomycin/Polymyxin/Hydrocortisone (Cortisporin Ophthalmic Suspension -) 1 drop OU TID [facility] Last Admin: 06/02/17 06:01 Dose: 1 drop - Objective Vital Signs: Vital Signs Temperature 98.8 F 06/02/17 09:22 Pulse Rate 68 06/02/17 09:42 Respiratory Rate 14 06/02/17 09:42 Blood Pressure 109/59 06/02/17 09:22 O2 Sat by Pulse Oximetry (%) 98 06/02/17 09:42 Constitutional: Yes: No Distress HENT: Yes: Other (facial erythema resolved) Cardiovascular: Yes: Regular Rate and Rhythm, S1, S2 Respiratory: Yes: Mechanically Ventilated Gastrointestinal: Yes: Normal Bowel Sounds, Soft. No: Tenderness Labs: CBC, BMP 05/31/17 14:40 05/31/17 14:40 INR, PTT INR 1.27 (0.82-1.09) H 05/27/17 14:10 Assessment/Plan Recurrent facial cellulitis- resolved Chronic respiratory failure D/C antibiotics, observe off Topical steroid per dermatology
--- NOTE | 2017-06-02 12:53 | PN ---
Progress Note (short form) - Note Progress Note: PULMONARY Vented on volume assist control with 40% FiO2. No fevers recorded. Last Vital Signs Temp Pulse Resp BP Pulse Ox 98.8 F 68 14 109/59 98 06/02/17 09:22 06/02/17 09:42 06/02/17 09:42 06/02/17 09:22 06/02/17 09:42 Gen: vented, arousable Heart: RRR Lung: distant breath sounds Abd: soft, nontender Ext: no edema CBC, BMP 05/31/17 14:40 05/31/17 14:40 Active Medications Acetaminophen (Tylenol -) 650 mg PO Q4H PRN PRN Reason: FEVER OR PAIN Last Admin: 06/01/17 03:55 Dose: 650 mg Albuterol Sulfate (Ventolin 0.083% Nebulizer Soln -) 1 amp NEB Q4H PRN PRN Reason: SHORT OF BREATH/WHEEZING Last Admin: 06/02/17 09:44 Dose: 1 amp Apixaban (Eliquis -) 2.5 mg PO BID [facility] Last Admin: 06/02/17 09:27 Dose: 2.5 mg Artificial Tears (Artificial Tears) 1 drop OU DAILY [facility] Last Admin: 06/02/17 09:26 Dose: 1 drop Atorvastatin Calcium (Lipitor -) 10 mg PO HS [facility] Last Admin: 06/01/17 22:43 Dose: 10 mg Docusate Sodium (Colace -) 300 mg PO HS [facility] Last Admin: 06/01/17 22:44 Dose: 300 mg Ferrous Sulfate (Feosol -) 325 mg PO BID [facility] Last Admin: 06/02/17 09:27 Dose: 325 mg Hydrocortisone (Hytone 2.5% Lotion -) 1 applic TP DAILY [facility] Last Admin: 06/02/17 09:27 Dose: 1 applic Potassium Chloride/Dextrose/Sod Cl (D5-1/2ns+20 Meq Kcl -) 1,000 mls @ 75 mls/ hr IV ASDIR [facility] Last Admin: 06/02/17 02:36 Dose: 75 mls/hr Lactobacillus Acidophilus (Bacid -) 1 tab PO DAILY [facility] Last Admin: 06/02/17 09:26 Dose: 1 tab Loratadine (Claritin -) 10 mg PO DAILY [facility] Last Admin: 06/02/17 09:27 Dose: 10 mg Metoprolol Tartrate (Lopressor -) 12.5 mg PO BID [facility] Last Admin: 06/02/17 09:28 Dose: 12.5 mg Mirtazapine (Remeron -) 15 mg PO HS [facility] Last Admin: 06/01/17 22:45 Dose: 15 mg Multivitamins/Minerals/Vitamin C (Tab-A-Vit -) 1 tab PO DAILY [facility] Last Admin: 06/02/17 09:28 Dose: 1 tab Mupirocin (Bactroban 2% Ointment -) 1 applic TP TID [facility] Last Admin: 06/02/17 06:01 Dose: 1 applic Neomycin/Polymyxin/Hydrocortisone (Cortisporin Ophthalmic Suspension -) 1 drop OU TID [facility] Last Admin: 06/02/17 06:01 Dose: 1 drop A/P Vent Dependent Respiratory Failure COPD Facial Cellulitis Atrial Fibrillation h/o CVA - antibiotics stopped - inhaled bronchodilators - continue volume assist control - PO as tolerated - continue anticoagulation
[2017-06-02] MEDS ORDERED: PT OWN MED DRAWER 7, Y5N ONE ×2 (15:55→21:27)
--- NOTE | 2017-06-02 16:12 | PN ---
Progress Note, Physician Chief Complaint: recurrent facial rash History of Present Illness: NAD, in bed, on mechanical vent -facial rash improved, warm to touch, no pruritus, eyes burn. -afebrile -seen by ID -seen by dermatology and pulmonary as well -finished IV abx -hypotension noted - Current Medication List Current Medications: Active Medications Acetaminophen (Tylenol -) 650 mg PO Q4H PRN PRN Reason: FEVER OR PAIN Last Admin: 06/01/17 03:55 Dose: 650 mg Albuterol Sulfate (Ventolin 0.083% Nebulizer Soln -) 1 amp NEB Q4H PRN PRN Reason: SHORT OF BREATH/WHEEZING Last Admin: 06/02/17 09:44 Dose: 1 amp Apixaban (Eliquis -) 2.5 mg PO BID [facility] Last Admin: 06/02/17 09:27 Dose: 2.5 mg Artificial Tears (Artificial Tears) 1 drop OU DAILY [facility] Last Admin: 06/02/17 09:26 Dose: 1 drop Atorvastatin Calcium (Lipitor -) 10 mg PO HS [facility] Last Admin: 06/01/17 22:43 Dose: 10 mg Docusate Sodium (Colace -) 300 mg PO HS [facility] Last Admin: 06/01/17 22:44 Dose: 300 mg Ferrous Sulfate (Feosol -) 325 mg PO BID [facility] Last Admin: 06/02/17 09:27 Dose: 325 mg Hydrocortisone (Hytone 2.5% Lotion -) 1 applic TP DAILY [facility] Last Admin: 06/02/17 09:27 Dose: 1 applic Potassium Chloride/Dextrose/Sod Cl (D5-1/2ns+20 Meq Kcl -) 1,000 mls @ 75 mls/ hr IV ASDIR [facility] Last Admin: 06/02/17 15:59 Dose: 75 mls/hr Lactobacillus Acidophilus (Bacid -) 1 tab PO DAILY [facility] Last Admin: 06/02/17 09:26 Dose: 1 tab Loratadine (Claritin -) 10 mg PO DAILY [facility] Last Admin: 06/02/17 09:27 Dose: 10 mg Metoprolol Tartrate (Lopressor -) 12.5 mg PO BID [facility] Last Admin: 06/02/17 09:28 Dose: 12.5 mg Mirtazapine (Remeron -) 15 mg PO HS [facility] Last Admin: 06/01/17 22:45 Dose: 15 mg Multivitamins/Minerals/Vitamin C (Tab-A-Vit -) 1 tab PO DAILY [facility] Last Admin: 06/02/17 09:28 Dose: 1 tab Mupirocin (Bactroban 2% Ointment -) 1 applic TP TID [facility] Last Admin: 06/02/17 15:57 Dose: 1 applic Neomycin/Polymyxin/Hydrocortisone (Cortisporin Ophthalmic Suspension -) 1 drop OU TID [facility] Last Admin: 06/02/17 15:58 Dose: 1 drop - Objective Vital Signs: Vital Signs Temperature 98.7 F 06/02/17 14:48 Pulse Rate 67 06/02/17 14:48 Respiratory Rate 14 06/02/17 14:48 Blood Pressure 107/67 06/02/17 14:48 O2 Sat by Pulse Oximetry (%) 98 06/02/17 09:42 Constitutional: Yes: Well Nourished, No Distress, Calm Cardiovascular: Yes: Regular Rate and Rhythm Respiratory: Yes: Regular Musculoskeletal: Yes: WNL Extremities: Yes: WNL Edema: No Peripheral Pulses WNL: Yes Integumentary: Yes: Rash (facial) Neurological: Yes: Alert, Oriented Psychiatric: Yes: Alert, Oriented Labs: CBC, BMP 05/31/17 14:40 05/31/17 14:40 INR, PTT INR 1.27 (0.82-1.09) H 05/27/17 14:10 Problem List - Problems (1) Chronic respiratory failure Assessment/Plan: -on mechanical vent -seen by pulmonary - do not need to deflate tracheotomy cuff during meals -neb tx Code(s): J96.10 - CHRONIC RESPIRATORY FAILURE, UNSP W HYPOXIA OR HYPERCAPNIA (2) Hypotension Assessment/Plan: -normalized after IVF -cardiology consult Code(s): I95.9 - HYPOTENSION, UNSPECIFIED (3) Facial rash Assessment/Plan: -bactroban ointment -IV abx discontinued -ID consult -Dermatology consult appreciated -WBC normal, afebrile, VSS -Instructions as per dermatology:use unscented white dove soap and apply vaseline or aquaphor for daily skin care. -HC 2.5 % topical Assessment/Plan see problem list cleared by ID to go back to [facility], either today or tomorrow
--- NOTE | 2017-06-02 16:13 | DS ---
Physical Examination Vital Signs: Vital Signs Temperature 98.7 F 06/02/17 14:48 Pulse Rate 67 06/02/17 14:48 Respiratory Rate 14 06/02/17 14:48 Blood Pressure 107/67 06/02/17 14:48 O2 Sat by Pulse Oximetry (%) 98 06/02/17 09:42 Constitutional: Yes: Well Nourished, No Distress, Calm Cardiovascular: Yes: Regular Rate and Rhythm Respiratory: Yes: Regular Musculoskeletal: Yes: WNL Extremities: Yes: WNL Edema: No Peripheral Pulses WNL: Yes Integumentary: Yes: Rash Neurological: Yes: Alert, Oriented Psychiatric: Yes: Alert, Oriented Labs: CBC, BMP 05/31/17 14:40 05/31/17 14:40 Discharge Summary Reason For Visit: CELLULITIS OF FACE Current Active Problems Cellulitis (Acute) Hospital Course: Patient is a 82 year old female from [facility], who presents to the ED with complaints of increased redness of face that began this morning. As per [place] staff patient has been experiencing increased facial redness since early this morning. Staff reports swelling and discharge of eyes secondary to facial redness. [place] staff reports patient experiencing low grade fever of 99.9 and lowered blood pressure at 87/45 secondary to facial redness. She denies chest pain, shortness of breath, headache and dizziness. She denies fever, chills, nausea, vomit, diarrhea and constipation. She denies dysuria, frequency, urgency and hematuria. Condition: Stable - Instructions - Home Medications Comprehensive Discharge Medication List: Ambulatory Orders Docusate Sodium 300 mg PO HS 10/19/16 Albuterol 0.083% Nebulizer Yady [Ventolin 0.083% Nebulizer Soln -] 1 amp NEB Q4H PRN #180 amp 03/20/17 Apixaban [Eliquis -] 2.5 mg PO BID tablet 03/20/17 Atorvastatin Ca [Lipitor] 10 mg PO HS #30 tablet 03/20/17 Ferrous Sulfate 325 mg PO BID #60 tab 03/20/17 Lactobacillus Acidophilus [Bacid -] 1 tab PO DAILY #30 tab 03/20/17 Loratadine [Claritin -] 10 mg PO DAILY #30 tablet 03/20/17 Mirtazapine [Remeron -] 15 mg PO HS #30 tablet 03/20/17 Multivitamins [Multivit ([facility] Formulary)] 1 tab PO DAILY #30 tab 03/20/17 Nystatin Powder [Nystop Powder -] 1 applic TP DAILY #1 applic 03/20/17 Pantoprazole Sodium [Protonix -] 40 mg PO DAILY #30 tab 03/20/17 Metoprolol Tartrate [Lopressor -] 12.5 mg PO BID tablet 05/01/17 Mupirocin Ointment [Bactroban 2% Ointment -] 1 applic TP TID applic 05/01/17 Ascorbic Acid/Ascorbate Sodium [Vitamin C 500 mg Wafer] 500 mg PO DAILY Hypromellose 0.5% Opth Soln [Artificial Tears] 1 drop OU DAILY 05/27/17
[2017-06-02] MEDS: DOCUSATE SODIUM 100 MG CAPSULE (FP) PO SCH (21:59)
[2017-06-02] MEDS: ATORVASTATIN CA 10 MG TABLET (FP) PO SCH (22:00)
[2017-06-02] MEDS: MIRTAZAPINE 15 MG TABLET (FP) PO SCH (22:00)
[2017-06-03] MEDS: D5-1/2NS+20 MEQ KCL - 1,000 ML IV SCH (04:10)
[2017-06-03] MEDS: MUPIROCIN 2% TOPICAL OINTMENT 22 GM TUBE TP SCH ×2 (06:09→13:51)
[2017-06-03] MEDS: NEOMYCIN/POLYMYX/HC OPHTHALMIC SUSPENSION 7.5 ML BOTTLE OU SCH ×2 (06:09→13:51)
[2017-06-03] MEDS: LORATADINE 10 MG TABLET PO SCH (10:46)
[2017-06-03] MEDS: APIXABAN 2.5 MG TABLET PO SCH (10:46)
[2017-06-03] MEDS: METOPROLOL TARTRATE 25 MG TABLET (FP) PO SCH (10:46)
[2017-06-03] MEDS: MULTIVITAMINS (DAILY MVI) TABLET (FP) PO SCH (10:46)
[2017-06-03] MEDS: FERROUS SO4 325 MG TABLET (FP) PO SCH (10:46)
[2017-06-03] MEDS: LACTOBACILLUS ACIDOPHILUS 1 EACH TAB (FP) PO SCH (10:46)
[2017-06-03] MEDS: ARTIFICIAL TEARS (POLYVINYL ALCOHOL 1.4%) OPTH DROPS OU SCH (10:47)
[2017-06-03] MEDS: HYDROCORTISONE 2.5% LOTION - 1 BOTTLE TP SCH (10:47)
[2017-06-03 10:51] VITALS: BP 141/57; PULSE 69; TEMP 99.1
--- NOTE | 2017-06-03 14:13 | PN ---
Progress Note (short form) - Note Progress Note: PULMONARY Vented on volume assist control with 40% FiO2. No fevers recorded. Last Vital Signs Temp Pulse Resp BP Pulse Ox 99.1 F 69 14 141/57 100 06/03/17 10:50 06/03/17 10:50 06/03/17 11:13 06/03/17 10:50 06/03/17 10:00 Gen: vented, arousable Heart: RRR Lung: distant breath sounds Abd: soft, nontender Ext: no edema CBC, BMP 05/31/17 14:40 05/31/17 14:40 Active Medications Acetaminophen (Tylenol -) 650 mg PO Q4H PRN PRN Reason: FEVER OR PAIN Last Admin: 06/01/17 03:55 Dose: 650 mg Albuterol Sulfate (Ventolin 0.083% Nebulizer Soln -) 1 amp NEB Q4H PRN PRN Reason: SHORT OF BREATH/WHEEZING Last Admin: 06/02/17 09:44 Dose: 1 amp Apixaban (Eliquis -) 2.5 mg PO BID [facility] Last Admin: 06/03/17 10:46 Dose: 2.5 mg Artificial Tears (Artificial Tears) 1 drop OU DAILY [facility] Last Admin: 06/03/17 10:47 Dose: 1 drop Atorvastatin Calcium (Lipitor -) 10 mg PO HS [facility] Last Admin: 06/02/17 22:00 Dose: 10 mg Docusate Sodium (Colace -) 300 mg PO HS [facility] Last Admin: 06/02/17 21:59 Dose: 300 mg Ferrous Sulfate (Feosol -) 325 mg PO BID [facility] Last Admin: 06/03/17 10:46 Dose: 325 mg Hydrocortisone (Hytone 2.5% Lotion -) 1 applic TP DAILY [facility] Last Admin: 06/03/17 10:47 Dose: 1 applic Potassium Chloride/Dextrose/Sod Cl (D5-1/2ns+20 Meq Kcl -) 1,000 mls @ 75 mls/ hr IV ASDIR [facility] Last Admin: 06/03/17 04:10 Dose: 75 mls/hr Lactobacillus Acidophilus (Bacid -) 1 tab PO DAILY [facility] Last Admin: 06/03/17 10:46 Dose: 1 tab Loratadine (Claritin -) 10 mg PO DAILY [facility] Last Admin: 06/03/17 10:46 Dose: 10 mg Metoprolol Tartrate (Lopressor -) 12.5 mg PO BID [facility] Last Admin: 06/03/17 10:46 Dose: 12.5 mg Mirtazapine (Remeron -) 15 mg PO HS [facility] Last Admin: 06/02/17 22:00 Dose: 15 mg Multivitamins/Minerals/Vitamin C (Tab-A-Vit -) 1 tab PO DAILY [facility] Last Admin: 06/03/17 10:46 Dose: 1 tab Mupirocin (Bactroban 2% Ointment -) 1 applic TP TID [facility] Last Admin: 06/03/17 13:51 Dose: 1 applic Neomycin/Polymyxin/Hydrocortisone (Cortisporin Ophthalmic Suspension -) 1 drop OU TID [facility] Last Admin: 06/03/17 13:51 Dose: 1 drop A/P Vent Dependent Respiratory Failure COPD Facial Cellulitis Atrial Fibrillation h/o CVA - antibiotics completed - inhaled bronchodilators - continue volume assist control - PO as tolerated - continue anticoagulation - agree with d/c planning
== END 2017-06-03 14:41 | DRG 602 ==
LOC: JER 12:54 → JERBED 15:39 → J5S 05-28 00:55
PROVIDERS: ADMIT Family Medicine; ATTEND Family Medicine
PROC: 5A1955Z Respiratory Ventilation, Greater than 96 Consecutive Hours (ICD-10-PCS; principal; 2017-05-27)
DX: L03.211 Cellulitis of face (principal); R53.2 Functional quadriplegia; J96.10 Chronic respiratory failure, unspecified whether with hypoxia or hypercapnia; J98.11 Atelectasis; Z99.11 Dependence on respirator [ventilator] status; J44.9 Chronic obstructive pulmonary disease, unspecified; I95.9 Hypotension, unspecified; D64.9 Anemia, unspecified; Z93.0 Tracheostomy status; Z86.73 Personal history of transient ischemic attack (TIA), and cerebral infarction without residual deficits; L53.8 Other specified erythematous conditions; I48.0 Paroxysmal atrial fibrillation; K21.9 Gastro-esophageal reflux disease without esophagitis; F03.90 Unspecified dementia, unspecified severity, without behavioral disturbance, psychotic disturbance, mood disturbance, and anxiety
CPT/HCPCS: 36415; 36600; 70450-TC; 71010-TC; 80053; 81003; 81015; 82272; 82550; 82803; 83605; 84484; 85025; 85610; 85730; 86850; 86900; 86901; 87040; 87070; 87081; 87086; 87205; 93005; 93010; 94002; 94640; 99284-25; G0480

== ENCOUNTER 2017-11-22 16:56 | Inpatient (IN) | payer OTHER ==
--- NOTE | 2017-11-22 17:19 | PDOC ---
History of Present Illness - General Stated Complaint: SEPSIS Time Seen by Provider: 11/22/17 17:09 History Source: Patient - History of Present Illness Initial Comments: 11/22/17 17:14 82 year old female with a PMH of multiple comorbidities including a PMH of end stage COPD (s/p tracheotomy on ventilator), HTN, HLD, cardiac arrest, GERD, upper GI bleed, BIBEMS after nursing staff at assisted living facility ([facility]) noted patient to be cold, clammy, and less responsive around 12:30 today. VS @ [facility] notable for temperature of 96.4, patient suctioned and food was noted in aspirate. At presentation patient sleeping but arousable, tracks with eyes. Dr. Massey, pulmonology, evaluated patient @ [facility] today and indicated patient should be transferred to the ED. Allergy: Doxycycline (as per EMR, confirmed with [facility]) Surgery: unknown PMD: Dr. Panchal Remote Sensing Analyst: Dr. Massey Past History - Past Medical History Allergies/Adverse Reactions: Allergies Allergy/AdvReac Type Severity Reaction Status Date / Time doxycycline Allergy Intermediate Verified 11/22/17 17:38 shellfish derived Allergy Verified 11/22/17 17:38 CLAMS Allergy Intermediate Hives Uncoded 11/22/17 17:38 retana Allergy Uncoded 11/22/17 17:38 Home Medications: Ambulatory Orders Docusate Sodium 300 mg PO HS 10/19/16 Albuterol 0.083% Nebulizer Yady [Ventolin 0.083% Nebulizer Soln -] 1 amp NEB Q4H PRN #180 amp 03/20/17 Apixaban [Eliquis -] 2.5 mg PO BID tablet 03/20/17 Atorvastatin Ca [Lipitor] 10 mg PO HS #30 tablet 03/20/17 Ferrous Sulfate 325 mg PO BID #60 tab 03/20/17 Lactobacillus Acidophilus [Bacid -] 1 tab PO DAILY #30 tab 03/20/17 Loratadine [Claritin -] 10 mg PO DAILY #30 tablet 03/20/17 Mirtazapine [Remeron -] 15 mg PO HS #30 tablet 03/20/17 Multivitamins [Multivit ([facility] Formulary)] 1 tab PO DAILY #30 tab 03/20/17 Metoprolol Tartrate [Lopressor -] 12.5 mg PO BID tablet 05/01/17 Ascorbic Acid/Ascorbate Sodium [Vitamin C 500 mg Wafer] 500 mg PO DAILY Hypromellose 0.5% Opth Soln [Artificial Tears] 1 drop OU BID 05/27/17 Acetaminophen [Tylenol .Regular Strength -] 650 mg PO Q4H PRN tablet 06/02/17 Neomycin/Polymyx/Hc Ophth Susp [Cortisporin *Ophthalmic Suspension* -] 1 drop OU TID drops 06/02/17 Anemia: Yes Asthma: No Cancer: No Cardiac Disorders: Yes (CARDIAC ARREST 1998, af) CVA: No COPD: Yes CHF: No Dementia: Yes (SHORT TERM MEMORY LOSS) Diabetes: No GI Disorders: No Disorders: No HTN: Yes Hypercholesterolemia: Yes Liver Disease: No Seizures: No Thyroid Disease: No - Surgical History Abdominal Surgery: No Appendectomy: No Cardiac Surgery: Yes (DEFIBRILLATOR) Cholecystectomy: No Lung Surgery: No Neurologic Surgery: No Orthopedic Surgery: No - Immunization History Immunization Up to Date: Yes - Suicide/Smoking/Psychosocial Hx Smoking History: Unknown if ever smoked Have you smoked in the past 12 months: No Number of Cigarettes Smoked Daily: 0 Cigars Per Day: 0 Hx Alcohol Use: No Drug/Substance Use Hx: No Substance Use Type: None Hx Substance Use Treatment: No Review of Systems - Review of Systems Able to Perform ROS?: No (patient on ventilator) *Physical Exam - Physical Exam Comments: 11/22/17 17:27 GENERAL: sleeping, arousable, responds to name, tracks w/eyes, reponds to sternal rub, diaphortetic HEAD: No signs of trauma EYES: PERRLA, sclera anicteric, conjunctiva clear ENT: Auricles normal inspection, nares patent, NECK: Nontender, no stepoffs, supple, no lymphadenopathy, JVD, or masses LUNGS: Breath sounds equal and decreased B/L, no wheezes/crackles HEART: Regular rate and rhythm, normal S1 and S2, no murmurs, rubs or gallops ABDOMEN: Soft, nontender, normoactive bowel sounds. EXTREMITIES: 2+ dorsalis pedis pulses, no edema. No clubbing or cyanosis. No cords, erythema, or tenderness SKIN: Warm, Dry, normal turgor, no rashes or lesions noted. ED Treatment Course - LABORATORY CBC & Chemistry Diagram: 11/22/17 18:00 11/22/17 18:00 Medical Decision Making - Medical Decision Making 11/22/17 17:19 82 year old female from [facility] presents with ;at presentation patient diaphoretic , mildly hypotensive (113/54) --> ED Adult Sepsis protocol initiated. Patient noted to have black stools (on Fe), will obtain FOBT. CT/Abdomen pelvis to r/o mesenteric ischemia, SBO; CT chest to r/o clot. IV protonix + 1 L IV NS. Will monitor closely, likely disposition admission for r/o ACS in additional to any findings on imaging. 11/22/17 18:33 CBC negative for leukocytosis; FOBT negative. Patient resting, VS unremarkable 11/22/17 19:24 Case d/w Dr. Massey - notes he sent patient for nursing staff c/o of diaphoresis , clammy, hypothermic @ 96. Labs pending. Patient signed out to Dr. Watts ( Resident) and Dr. Estrada (Attending) *DC/Admit/Observation/Transfer Diagnosis at time of Disposition: Diaphoresis, Hypotension - Referrals - Patient Instructions - Post Discharge Activity
--- NOTE | 2017-11-22 17:46 | PDOC ---
Attending Attestation - HPI HPI: 11/22/17 18:41 The patient is a 82 year old female brought via EMS from [facility], with a significant past medical history of end stage COPD (s/p tracheotomy on ventilator), HTN, HLD, cardiac arrest, GERD, upper GI bleed, who presents to the emergency department complaining of being cold, clammy and less responsive for the past 6 hours. Temperature at the snf noted to be at 96.4. The patient was suctioned and was food noted in the aspirate. The patient is nonverbal on presentation. Allergy: Doxycycline (as per EMR, confirmed with [facility]) Surgery: unknown PMD: Dr. Panchal Showroom Sales Assistant: Dr. Massey - Physicial Exam PE: 11/22/17 18:41 Constitutional: (+) Nonverbal. Awake, alert, oriented. No acute distress. Head: Normocephalic. Atraumatic Eyes: PERRL. EOMI. Conjunctivae are not pale. ENT: Mucous membranes are moist and intact. Posterior pharynx without exudates or erythema. Uvula midline. Neck: (+) Trach in place, no drainage from the site. Supple. Full ROM. No lymphadenopathy. Cardiovascular: Regular rate. Regular rhythm. S1, S2 regular. Distal pulses are 2+ and symmetric. Pulmonary/Chest: (+) Diminished breath sounds with the vent. Abdominal: (+) Tender belly to the lower bilateral quadrants and suprapubic region. Soft and non-distended. No rebound, guarding or rigidity. No organomegaly. No palpable masses. Good bowel sounds. Back: No CVA tenderness. Musculoskeletal: No edema. No cyanosis. No clubbing. Full range of motion in all extremities. Nocalf tenderness. Radial/pedal pulses are intact and 2+ bilaterally Extremities: (+) Contracted lower extremities. Skin: Skin is warm and dry. No petechiae. No purpura. Neurological: Patient nonverbal. Exam deferred. Psychiatric: Good eye contact. Normal interaction, affect and behavior. <Juan Linn - Last Filed: 11/23/17 00:53> - Resident Resident Name: Isa Michelle - ED Attending Attestation I have performed the following: I have examined & evaluated the patient, The case was reviewed & discussed with the resident, I agree w/resident's findings & plan, Exceptions are as noted - Medical Decision Making 11/22/17 17:45 I, Dr. Mita Estrada, DO, attest that this document has been prepared under my direction and personally reviewed by me in its entirety. I further attest, that it accurately reflects all work, treatment, procedures and medical decision -making performed by me. 11/22/17 18:50 a/p: 82yo female sent from [facility] for eval of being found cold, clammy, poss aspiration of food products. -seen by Dr. Massey at the [place] -concern give abd pain on exam -will obtain labs, ekg, cxr, ct c/a/p -black stool - hx of UGIB, will send stool for heme -will need admission -chronic trach on vent 11/22/17 22:59 pt with hx of MDR UTI with pelvic ttp and UTi on labs - will start abx - merrem (sensitivies were dscussed. Will start vanco) cultures were stent will cont to monitor and reassess 11/23/17 01:27 pt with seizure activity - no prior hx of seizures will obtain head ct given ativan iv currently resting comfortably 11/23/17 01:[address] stapleton who accepts pt to service <Mita Estrada - Last Filed: 11/23/17 01:43> Discharge Disposition <Juan Linn - Last Filed: 11/23/17 00:53> - Discharge Dispostion Last Admission D/C Date: 06/03/17 Admit: Yes <Mita Estrada - Last Filed: 11/23/17 01:43> - Diagnosis Diaphoresis, Hypotension, Seizure - Discharge Dispostion Condition at time of disposition: Guarded Heart Score/ECG Review - ECG Intrepretation Comment:: 11/23/17 01:00 ekg: sinus at 83 w pvc, q waves anteriorly that are age indeterminate, t wave flattening, no acute st changes <Mita Estrada - Last Filed: 11/23/17 01:43> Progress Note - Progress Note Progress Note: Upon re-evaluation the patient is noted to have seizure like activity. Which resolved shortly after. Repeat temperature for the patient is 98.6 degrees F. Will order head CT and repeat bloodwork. <Juan Linn - Last Filed: 11/23/17 00:53>
[2017-11-22] MEDS ORDERED: PANTOPRAZOLE SODIUM 40 MG VIAL IVPUSH ONE (18:16)
[2017-11-22 18:18] LABS: BASO % 0.5 % (0-2.0); EOS % 4.3 % (0-4.5); HEMATOCRIT 33.3 % (32.4-45.2); HEMOGLOBIN 11.1 GM/dL (10.7-15.3); MCHC 33.4 g/dl (32.0-36.0); MEAN CELL VOLUME 86.8 fl (80-96); MEAN PLT VOLUME 8.7 fl (7.5-11.1); MONO % 6.6 % (3.8-10.2); NEUT % 72.6 % (42.8-82.8); PLATELET COUNT 167 K/MM3 (134-434); RBC 3.84 M/mm3 (3.60-5.2); WHITE BLOOD COUNT 7.4 K/mm3 (4.0-10.0)
[2017-11-22] MEDS ORDERED: PANTOPRAZOLE SODIUM 40 MG VIAL ONE (18:30)
[2017-11-22] MEDS ORDERED: SODIUM CHLORIDE 0.9% 500 ML INFUS.BAG IV ONE (18:30)
[2017-11-22 18:36] LABS: INR 1.25 (0.82-1.09); PROTHROMBIN TIME (PATIENT) 14.1 SEC (9.7-13.0)
[2017-11-22 18:39] LABS: ACTIVATED PTT 30.2 SECONDS (26.9-34.4)
[2017-11-22 18:54] LABS: ANION GAP 10 (8-16); BILIRUBIN,TOTAL 0.3 mg/dL (0.2-1.0); BLOOD UREA NITROGEN 26 mg/dL (7-18); CHLORIDE 105 mmol/L (98-107); CO2 29 mmol/L (21-32); CREATININE 0.6 mg/dL (0.55-1.02); GLUCOSE,RANDOM 93 mg/dL (74-106); SGPT/ALT 13 U/L (12-78); SODIUM 144 mmol/L (136-145); TOT PROT 7.5 g/dl (6.4-8.2)
[2017-11-22 18:59] LABS: ALBUMIN 3.3 g/dl (3.4-5.0); ALK PHOS 73 U/L (45-117)
[2017-11-22 19:00] LABS: POTASSIUM 4.4 mmol/L (3.5-5.1); SGOT/AST 18 U/L (15-37)
[2017-11-22 19:23] LABS: VENOUS PH 7.38 (7.32-7.42)
[2017-11-22 19:24] LABS: VENOUS PC02 47.3 mmHg (38-52); VENOUS PO2 40.1 mmHg (28-48)
[2017-11-22 19:34] LABS: URINE APPEARANCE TURBID; URINE BILIRUBIN NEGATIVE (<2.0 mg/dL); URINE COLOR AMBER; URINE GLUCOSE (UA) NEGATIVE (NEGATIVE); URINE KETONE NEGATIVE (NEGATIVE); URINE LEUK ESTERASE 3+ (NEGATIVE); URINE NITRITE POSITIVE (NEGATIVE); URINE PROTEIN 3+ (NEGATIVE); URINE UROBILINOGEN NEGATIVE mg/dL (0.2-1.0)
[2017-11-22 19:37] LABS: EPI CELLS RARE /HPF (FEW); URINE BACTERIA RARE /hpf (NONE SEEN); URINE MUCUS FEW
[2017-11-22] MEDS ORDERED: CEFTRIAXONE 1 GM in DEXTROSE 5%-WATER - 100 ML IVPB ONE (19:38)
--- NOTE | 2017-11-22 19:40 | PDOC ---
*Physical Exam - Vital Signs Last Vital Signs Temp Pulse Resp BP Pulse Ox 98 F 63 16 113/54 99 11/22/17 17:38 11/22/17 17:38 11/22/17 17:38 11/22/17 17:38 11/22/17 17:38 - Physical Exam Comments: 11/22/17 19:39 Pt signed out by Dr. Michelle to me. Awaiting labs and imaging. Pt presenting from [facility] after being cool/clammy and minimally responsive. Pt chronically vented with tracheostomy and story suspicious for aspiration when found. ED Treatment Course - LABORATORY CBC & Chemistry Diagram: 11/22/17 18:00 11/22/17 18:00 - ADDITIONAL ORDERS Additional order review: Laboratory Results 11/22/17 11/22/17 11/22/17 19:15 18:31 18:31 PT with INR INR PTT (Actin FS) VBG pH 7.38 POC VBG pCO2 47.3 D POC VBG pO2 40.1 D Mixed VBG HCO3 27.5 H Sodium Potassium Chloride Carbon Dioxide Anion Gap BUN Creatinine Creat Clearance w eGFR Random Glucose Lactic Acid Calcium Total Bilirubin AST ALT Alkaline Phosphatase Troponin I Total Protein Albumin Urine Color Karen Urine Appearance Turbid Urine pH 8.0 D Ur Specific [place] 1.018 Urine Protein 3+ H Urine Glucose (UA) Negative Urine Ketones Negative Urine Blood Negative Urine Nitrite Positive Urine Bilirubin Negative Urine Urobilinogen Negative Ur Leukocyte Esterase 3+ H Urine WBC (Auto) 391 Urine RBC (Auto) 45 Ur Epithelial Cells Rare Urine Bacteria Rare Urine Mucus Few Stool Occult Blood Blood Type Cancelled Antibody Screen Cancelled 11/22/17 11/22/17 11/22/17 18:00 18:00 18:00 PT with INR INR PTT (Actin FS) VBG pH POC VBG pCO2 POC VBG pO2 Mixed VBG HCO3 Sodium 144 Potassium 4.4 Chloride 105 Carbon Dioxide 29 Anion Gap 10 BUN 26 H Creatinine 0.6 Creat Clearance w eGFR > 60 Random Glucose 93 Lactic Acid 0.9 Calcium 9.0 Total Bilirubin 0.3 D AST 18 ALT 13 Alkaline Phosphatase 73 Troponin I < 0.02 Total Protein 7.5 Albumin 3.3 L Urine Color Urine Appearance Urine pH Ur Specific [place] Urine Protein Urine Glucose (UA) Urine Ketones Urine Blood Urine Nitrite Urine Bilirubin Urine Urobilinogen Ur Leukocyte Esterase Urine WBC (Auto) Urine RBC (Auto) Ur Epithelial Cells Urine Bacteria Urine Mucus Stool Occult Blood Blood Type Antibody Screen 11/22/17 11/22/17 18:00 17:36 PT with INR 14.10 H INR 1.25 H PTT (Actin FS) 30.2 VBG pH POC VBG pCO2 POC VBG pO2 Mixed VBG HCO3 Sodium Potassium Chloride Carbon Dioxide Anion Gap BUN Creatinine Creat Clearance w eGFR Random Glucose Lactic Acid Calcium Total Bilirubin AST ALT Alkaline Phosphatase Troponin I Total Protein Albumin Urine Color Urine Appearance Urine pH Ur Specific [place] Urine Protein Urine Glucose (UA) Urine Ketones Urine Blood Urine Nitrite Urine Bilirubin Urine Urobilinogen Ur Leukocyte Esterase Urine WBC (Auto) Urine RBC (Auto) Ur Epithelial Cells Urine Bacteria Urine Mucus Stool Occult Blood Negative Blood Type Antibody Screen 11/22/17 18:00 RBC 3.84 MCV 86.8 MCHC 33.4 RDW 15.0 MPV 8.7 Neutrophils % 72.6 Lymphocytes % 16.0 D Monocytes % 6.6 Eosinophils % 4.3 Basophils % 0.5 - Medications Given in the ED: ED Medications Discontinued Medications Generic Name Dose Route Start Last Admin Trade Name Lois PRN Reason Stop Dose Admin Pantoprazole Sodium 40 mg 11/22/17 18:16 11/22/17 18:30 Protonix Iv IVPUSH 11/22/17 18:17 40 mg ONCE ONE Administration Sodium Chloride 1,000 ml 11/22/17 18:30 11/22/17 18:25 Normal Saline - IV 11/22/17 18:31 1,000 ml ONCE ONE Administration Medical Decision Making - Medical Decision Making 11/22/17 19:40 UA shows Nitrite + with Leuk est 3+ --Previous ESBL noted in microbiology with susceptibility to carbapenem and very weakly sensitive to Zosyn --Meropenem 1gm IV once --Awaiting CT --On reassessment pt more responsive currently with no distress on current vent settings: rate 14/TV 450/FiO2 40%/PEEP 4 LUNGS: CTA bilaterally with some transmitted vent/trach sounds CARDIAC: Tachycardic regular rhythm currently *DC/Admit/Observation/Transfer Diagnosis at time of Disposition: Diaphoresis, Hypotension - Referrals - Patient Instructions - Post Discharge Activity
[2017-11-22] MEDS ORDERED: MEROPENEM 1 GM in DEXTROSE 5%-WATER 100 ML IVPB ONE (19:42)
[2017-11-22] MEDS ORDERED: ACETAMINOPHEN 325 MG TABLET (FP) PO PRN (23:28)
[2017-11-22] MEDS ORDERED: ALBUTEROL SO4 0.083% IH SOL 2.5 MG/3 ML VIAL.NEB. NEB PRN (23:28)
--- NOTE | 2017-11-22 23:31 | HP ---
CHIEF COMPLAINT: PCP: Dr Panchal / From [facility] HISTORY OF PRESENT ILLNESS: 82yo F with PMHx of end stage COPD (s/p tracheostomy, vent dependent) and MDR- UTIs who was brought from [facility] due to hypothermia. She was found to be cold , clammy, and less responsive at around 12:30 today. Vital signs at [facility] were notable for hypothermia (recorded T of 96.4). She was evaluated by Dr Massey who recommended ER evaluation. Pt was suctioned and food aspirate was noted. No cough or difficulty breathing was reported. In the ER, she was afebrile. UA consistent w/ UTI. Ucx pending. 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 Given a dose of Meropenem. CT chest/abd/pelvis ordered in ER. Recent Travel: None reported PAST MEDICAL HISTORY: Anemia, Paroxysmal Afib (on Eliquis), CHF, cardiac arrest (1998), COPD s/p trach, vent dependent, UTI's, UGI bleeds, CVA, Dementia, Parkinson's, GERD PAST SURGICAL HISTORY: AICD ([employer], implanted after cardiac arrest), Cataract removal Social History: [facility]. No smoking. No alcohol. No illicit drugs. Allergies: doxycycline Allergy (Intermediate, Verified 11/22/17 17:38) shellfish derived Allergy (Verified 11/22/17 17:38) CLAMS Allergy (Intermediate, Uncoded 11/22/17 17:38)Hives retana Allergy (Uncoded 11/22/17 17:38) HOME MEDICATIONS: Home Medications Medication Instructions Recorded Docusate Sodium 300 mg PO HS 10/19/16 Albuterol 0.083% Nebulizer Yady 1 amp NEB Q4H PRN #180 amp 03/20/17 [Ventolin 0.083% Nebulizer Soln -] Apixaban [Eliquis -] 2.5 mg PO BID tablet 03/20/17 Atorvastatin Ca [Lipitor] 10 mg PO HS #30 tablet 03/20/17 Ferrous Sulfate 325 mg PO BID #60 tab 03/20/17 Lactobacillus Acidophilus [Bacid -] 1 tab PO DAILY #30 tab 03/20/17 Loratadine [Claritin -] 10 mg PO DAILY #30 tablet 03/20/17 Mirtazapine [Remeron -] 15 mg PO HS #30 tablet 03/20/17 Multivitamins [Multivit ([facility] 1 tab PO DAILY #30 tab 03/20/17 Formulary)] Metoprolol Tartrate [Lopressor -] 12.5 mg PO BID tablet 05/01/17 Ascorbic Acid/Ascorbate Sodium 500 mg PO DAILY 05/27/17 [Vitamin C 500 mg Wafer] Hypromellose 0.5% Opth Soln 1 drop OU BID 05/27/17 [Artificial Tears] Acetaminophen [Tylenol .Regular 650 mg PO Q4H PRN tablet 06/02/17 Strength -] Neomycin/Polymyx/Hc Ophth Susp 1 drop OU TID drops 06/02/17 [Cortisporin *Ophthalmic Suspension* -] REVIEW OF SYSTEMS CONSTITUTIONAL: Absent: fever, chills, diaphoresis, generalized weakness, malaise, loss of appetite, weight change HEENT: Absent: rhinorrhea, nasal congestion, throat pain, throat swelling, difficulty swallowing, mouth swelling, ear pain, eye pain, visual changes CARDIOVASCULAR: Absent: chest pain, syncope, palpitations, irregular heart rate, lightheadedness , peripheral edema RESPIRATORY: Absent: cough, shortness of breath, dyspnea with exertion, orthopnea, wheezing, stridor, hemoptysis GASTROINTESTINAL: Absent: abdominal pain, abdominal distension, nausea, vomiting, diarrhea, constipation, melena, hematochezia GENITOURINARY: Absent: dysuria, frequency, urgency, hesitancy, hematuria, flank pain, genital pain MUSCULOSKELETAL: Absent: myalgia, arthralgia, joint swelling, back pain, neck pain SKIN: Absent: rash, itching, pallor HEMATOLOGIC/IMMUNOLOGIC: Absent: easy bleeding, easy bruising, lymphadenopathy, frequent infections ENDOCRINE: Absent: unexplained weight gain, unexplained weight loss, heat intolerance, cold intolerance NEUROLOGIC: Absent: headache, focal weakness or paresthesias, dizziness, unsteady gait, seizure, mental status changes, bladder or bowel incontinence PSYCHIATRIC: Absent: anxiety, depression, suicidal or homicidal ideation, hallucinations. PHYSICAL EXAMINATION Vital Signs Period Temp Pulse Resp BP Sys/Vera Pulse Ox Last 24 Hr 98 F 63-66 14-16 104-113/53-54 99-100 Active Medications Acetaminophen (Tylenol -) 650 mg PO Q4H PRN PRN Reason: FEVER Albuterol Sulfate (Ventolin 0.083% Nebulizer Soln -) 1 amp NEB Q4H PRN PRN Reason: SHORT OF BREATH/WHEEZING Apixaban (Eliquis -) 2.5 mg PO BID BREANN Atorvastatin Calcium (Lipitor -) 10 mg PO HS BREANN Docusate Sodium (Colace -) 300 mg PO HS BREANN Meropenem 1 gm/ Dextrose 100 mls @ 200 mls/hr IVPB ONCE ONE Stop: 11/23/17 10:29 Lactobacillus Acidophilus (Bacid -) 1 tab PO DAILY BREANN Metoprolol Tartrate (Lopressor -) 12.5 mg PO BID BREANN Mirtazapine (Remeron -) 15 mg PO HS BREANN Multivitamins/Minerals/Vitamin C (Tab-A-Vit -) 1 tab PO DAILY [facility] Neomycin/Polymyxin/Hydrocortisone (Cortisporin Ophthalmic Suspension -) 1 drop OU TID [facility] Non-Formulary Medication (Ascorbic Acid/Ascorbate Sodium [Vitamin C 500 Mg Wafer ]) 500 mg PO DAILY [facility] Non-Formulary Medication (Ferrous Sulfate [Ferrous Sulfate]) 325 mg PO BID [facility] Non-Formulary Medication (Hypromellose 0.5% Opth Soln [Artificial Tears]) 1 drop OU BID [facility] ASSESSMENT/PLAN: 82yo F with PMHx of end stage COPD (s/p tracheostomy, vent dependent) and MDR- UTIs who was brought from [facility] due to hypothermia, found to have UTI # Hypothermia -- Likely infectious from UTI # UTI -- 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 Not septic. Started on Meropenem, will continue. F/u UCx. Will consult ID. # ?Aspirate in trach -- In [facility], patient had food aspirate particles in trach. No signs of aspirations on CXR. However, will keep NPO for now. S/S eval. # Melena -- Has hx of UGI bleed, melena in ER. F/u FOBT. # Endstage COPD -- Vent dependent. Continue settings. Nebs prn. Will consult Dr Massey # Paroxysmal Afib -- Rate controlled. Cont Lopressor 12.5mg BID. Continue eliquis # HLD -- Continue home statin # S/p Cardiac arrest -- Has AICD, neg troponins, no EKg changes # FEN/Ppx -- No IVF, NPO for now # Dispo -- Admit to med/surg Case d/w Dr Pereyra & Dr Narayan Camarillo MD - [id number] [employer] Hospitalist Screening - Colonoscopy Questionnaire Colonoscopy Questionnaire: Colonoscopy Questionnaire
[2017-11-23] MEDS ORDERED: SODIUM CHLORIDE 0.9% 1000 ML INFUS.BAG IV ONE (00:51)
[2017-11-23 01:49] LABS: ALBUMIN 2.7 g/dl (3.4-5.0); ANION GAP 13 (8-16); BILIRUBIN,TOTAL 0.4 mg/dL (0.2-1.0); BLOOD UREA NITROGEN 23 mg/dL (7-18); CALCIUM 7.9 mg/dL (8.5-10.1); CHLORIDE 109 mmol/L (98-107); CO2 22 mmol/L (21-32); CREATININE 0.7 mg/dL (0.55-1.02); GLUCOSE,RANDOM 101 mg/dL (74-106); POTASSIUM 3.9 mmol/L (3.5-5.1); SGOT/AST 25 U/L (15-37); SGPT/ALT 24 U/L (12-78); SODIUM 144 mmol/L (136-145); TOT PROT 6.4 g/dl (6.4-8.2)
[2017-11-23 01:50] LABS: ALK PHOS 70 U/L (45-117)
[2017-11-23] MEDS ORDERED: VANCOMYCIN 1,000 MG in DEXTROSE 5%-WATER - 250 ML IVPB ONE (02:14)
[2017-11-23] MEDS ORDERED: levETIRAcetam 500 MG/5 ML INJECTION VIAL IVPB ONE ×2 (02:30→02:37)
[2017-11-23] MEDS ORDERED: VANCOMYCIN 1 GRAM (PRE-DOCKED) 1,000 MG/250 ML BAG IVPB ONE (02:37)
[2017-11-23] MEDS ORDERED: ACETAMINOPHEN 325 MG TABLET (FP) PO PRN (02:51)
[2017-11-23] MEDS ORDERED: ALBUTEROL SO4 0.083% IH SOL 2.5 MG/3 ML VIAL.NEB. NEB PRN ×2 (02:51→18:33)
--- NOTE | 2017-11-23 03:01 | HP ---
CHIEF COMPLAINT: Hypothermia PCP: Dr. Persaud HISTORY OF PRESENT ILLNESS: 82yo F with PMHx of end stage COPD (s/p tracheostomy, vent dependent) and MDR- UTIs who was brought from [facility] due to hypothermia. She was found to be cold , clammy, and less responsive at around 12:30 today. Vital signs at [facility] were notable for hypothermia (recorded T of 96.4). She was evaluated by Dr Massey who recommended ER evaluation. Pt was suctioned and food aspirate was noted. No cough or difficulty breathing was reported. In the ER, she was afebrile. UA showed pyuria. Given a dose of Meropenem. 2 hrs later, patient began to have a tonic-clonic seizure lasting about 1-2 minutes. Resolved spontaneously. Given 1mg Ativan IV afterwards. Head CT shows possible R pareital infarct vs motion artifact. Recent Travel: None reported PAST MEDICAL HISTORY: Anemia, atrial fibrillation, CHF, cardiac arrest (1998), COPD, s/p trach, vent dependent, UTIs and GI bleeds, CVA, Dementia, Parkinson's , GERD PAST SURGICAL HISTORY: AICD ([employer], implanted following cardiac arrest), Cataract Removal (2011) Social History: [facility]. No smoking. No alcohol. No illicit drugs. Allergies: doxycycline Allergy (Intermediate, Verified 11/22/17 17:38 shellfish derived Allergy (Verified 11/22/17 17:38) CLAMS Allergy (Intermediate, Uncoded 11/22/17 17:38) Hives retana Allergy (Uncoded 11/22/17 17:38) HOME MEDICATIONS: Home Medications Medication Instructions Recorded Docusate Sodium 300 mg PO HS 10/19/16 Albuterol 0.083% Nebulizer Yady 1 amp NEB Q4H PRN #180 amp 03/20/17 [Ventolin 0.083% Nebulizer Soln -] Apixaban [Eliquis -] 2.5 mg PO BID tablet 03/20/17 Atorvastatin Ca [Lipitor] 10 mg PO HS #30 tablet 03/20/17 Ferrous Sulfate 325 mg PO BID #60 tab 03/20/17 Lactobacillus Acidophilus [Bacid -] 1 tab PO DAILY #30 tab 03/20/17 Loratadine [Claritin -] 10 mg PO DAILY #30 tablet 03/20/17 Mirtazapine [Remeron -] 15 mg PO HS #30 tablet 03/20/17 Multivitamins [Multivit ([facility] 1 tab PO DAILY #30 tab 03/20/17 Formulary)] Metoprolol Tartrate [Lopressor -] 12.5 mg PO BID tablet 05/01/17 Ascorbic Acid/Ascorbate Sodium 500 mg PO DAILY 05/27/17 [Vitamin C 500 mg Wafer] Hypromellose 0.5% Opth Soln 1 drop OU BID 05/27/17 [Artificial Tears] Acetaminophen [Tylenol .Regular 650 mg PO Q4H PRN tablet 06/02/17 Strength -] Neomycin/Polymyx/Hc Ophth Susp 1 drop OU TID drops 06/02/17 [Cortisporin *Ophthalmic Suspension* -] REVIEW OF SYSTEMS Unable to assess PHYSICAL EXAMINATION Vital Signs Period Temp Pulse Resp BP Sys/Vera Pulse Ox Last 24 Hr 98 F-98.9 F 63-74 14-16 104-128/53-82 99-100 GEN: Sedated, breathign comfortably on vent HEENT: PERRLA, no JVD CV: S1, S2, RRR LUNG: Ventilator sounds, good air intake ABD: Soft, nontender to palpation on my exam, normoactive BS MSK: No edema, no erythema NEURO: Difficult to assess due to sedation, has been seen movign all limbs symmetrically Active Medications Acetaminophen (Tylenol -) 650 mg PO Q4H PRN PRN Reason: Pain, fever Albuterol Sulfate (Ventolin 0.083% Nebulizer Soln -) 1 amp NEB Q4H PRN PRN Reason: SHORT OF BREATH/WHEEZING Apixaban (Eliquis -) 2.5 mg PO BID [facility] Atorvastatin Calcium (Lipitor -) 10 mg PO HS RBEANN Docusate Sodium (Colace -) 300 mg PO HS BREANN Ferrous Sulfate (Feosol -) 325 mg PO BID BREANN Lactobacillus Acidophilus (Bacid -) 1 tab PO DAILY BREANN Lorazepam (Ativan Injection -) 1 mg IVPUSH Q4H PRN PRN Reason: Seizure Metoprolol Tartrate (Lopressor -) 12.5 mg PO BID [facility] Mirtazapine (Remeron -) 15 mg PO HS [facility] Multivitamins/Minerals/Vitamin C (Tab-A-Vit -) 1 tab PO DAILY [facility] Neomycin/Polymyxin/Hydrocortisone (Cortisporin Otic Suspenstion -) 1 drop AD TID BREANN ASSESSMENT/PLAN: 82yo F with PMHx of end stage COPD (s/p tracheostomy, vent dependent) and MDR- UTIs who was brought from [facility] due to hypothermia, found to have UTI and new onset seizure # New onset Seizure -- Could be secondary to meropenem administraton lowering seizure threshold vs ? CVA. CT shows possible infarct in R parietal vs motion artifact. No infarct in head CT in 2017. Moves symmetrically. Ativan prn. Keppra load. Neuro consult. Likely unable to get mRI due to vent and AICD. Will obtain carotids and echo. 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 Not septic. No abd tenderness on exam. ?true infection. Already given Meropenem and vanc. F/u UCx. Will hold off on scheduled abx until ID consult # ?Aspiration -- Food particles were in patient's trach. CT Chest shows LLL atelectasis vs infiltrate. Less likely acute since she hasn't required more O2, no prior chest CT to compare. However, will keep NPO for now. S/S eval. # Endstage COPD -- Vent dependent. Continue settings. Nebs prn. Will consult Dr Massey # Paroxysmal Afib -- Rate controlled. Cont Lopressor 12.5mg BID. 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 - New Patient This patient is new to me today: Yes Date on this admission: 11/23/17 - Critical Care Critical Care patient: No Hospitalist Screening - Colonoscopy Questionnaire Colonoscopy Questionnaire: Colonoscopy Questionnaire - Patient: 50 - 75 years old and never had a screening colonoscopy: Unknown History of colon or rectal polyps, or CA: Unknown History of IBD, Crohn's disease or UC: Unknown History of abdominal radiation therapy as a child: Unknown - Relative: 1 with colon or rectal CA, or polyps at age 60 or younger: Unknown Colon or rectal CA diagnosed at age 45 or younger: Unknown Multiple relatives with colon or rectal CA: Unknown - Outcome: Screening Result: Negative Screen
--- NOTE | 2017-11-23 05:25 | CONSULT ---
Consult - text type - Consultation Consultation Note: PULM/CCM Pt seen and examined in ICU CC: Sz Hx obtained from medical record, none from pt due to medical condition HPI: Briefly Ms Raygoza is 82 y/o woman with hx of end stage COPD trached/vent dependent, heart disease adn afib on eliquis and with aicd, with recurrent UTI, resident of [place]. Pt was sent to hospital due to low temp, ? aspiration (food particals suctioned via trach). There was no fever or localizing symptoms. In ED pt was awake to baseline, normotesive, normothermic, and sating well on base vent settings. Pt UA dirty with > 300wbc, 3+ LE. Pt given dose of meropenem given hx of MDR GN bacteria. Pt shortly after had brief, self limiting, tonic clonic sz. Pt underwent CT head to evaluate for stroke, as well as CTAP, CT chest for unclear reasons. CT with ? R parietal infarct. Pt loaded with ID, and Neuro were consulted and pt sent to ICU for mangement. In ICU pt poorly responsive, non toxic appearing and without distress on vent. VS WNL> Smoking History Smoking history Unknown if ever smoked Aproximately how many 0 cigarettes per day Alcohol/Substance Use Hx Alcohol Use No Social History Usual Living Arrangement [facility] History of Recent Travel No management. 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 CVA,Dementia,Parkinson's Cardio/Vascular AFIB,CHF,HTN,Hyperlipdemia,Other Pulmonary COPD,Other Gastrointestinal GERD Heme/Onc Anemia Past Surgical History Past Surgical History AICD,Cataract Removal Home Medications Medication Instructions Recorded Docusate Sodium 300 mg PO HS 10/19/16 Albuterol 0.083% Nebulizer Yady 1 amp NEB Q4H PRN #180 amp 03/20/17 [Ventolin 0.083% Nebulizer Soln -] Apixaban [Eliquis -] 2.5 mg PO BID tablet 03/20/17 Atorvastatin Ca [Lipitor] 10 mg PO HS #30 tablet 03/20/17 Ferrous Sulfate 325 mg PO BID #60 tab 03/20/17 Lactobacillus Acidophilus [Bacid -] 1 tab PO DAILY #30 tab 03/20/17 Loratadine [Claritin -] 10 mg PO DAILY #30 tablet 03/20/17 Mirtazapine [Remeron -] 15 mg PO HS #30 tablet 03/20/17 Multivitamins [Multivit ([facility] 1 tab PO DAILY #30 tab 03/20/17 Formulary)] Metoprolol Tartrate [Lopressor -] 12.5 mg PO BID tablet 05/01/17 Ascorbic Acid/Ascorbate Sodium 500 mg PO DAILY 05/27/17 [Vitamin C 500 mg Wafer] Hypromellose 0.5% Opth Soln 1 drop OU BID 05/27/17 [Artificial Tears] Acetaminophen [Tylenol .Regular 650 mg PO Q4H PRN tablet 06/02/17 Strength -] Neomycin/Polymyx/Hc Ophth Susp 1 drop OU TID drops 06/02/17 [Cortisporin *Ophthalmic Suspension* -] Active Medications Acetaminophen (Tylenol -) 650 mg PO Q4H PRN PRN Reason: Pain, fever Albuterol Sulfate (Ventolin 0.083% Nebulizer Soln -) 1 amp NEB Q4H PRN PRN Reason: SHORT OF BREATH/WHEEZING Apixaban (Eliquis -) 2.5 mg PO BID [facility] LICENSE OF [facility] Atorvastatin Calcium (Lipitor -) 10 mg PO HS BREANN Docusate Sodium (Colace -) 300 mg PO HS BREANN Ferrous Sulfate (Feosol -) 325 mg PO BID BRE[facility] Lactobacillus Acidophilus (Bacid -) 1 tab PO DAILY BRE[facility] Lorazepam (Ativan Injection -) 1 mg IVPUSH Q4H PRN PRN Reason: Seizure Metoprolol Tartrate (Lopressor -) 12.5 mg PO BID [facility] Mirtazapine (Remeron -) 15 mg PO HS [facility] LICENSE OF [facility] Multivitamins/Minerals/Vitamin C (Tab-A-Vit -) 1 tab PO DAILY [facility] OF [facility] Neomycin/Polymyxin/Hydrocortisone (Cortisporin Otic Suspenstion -) 1 drop AD TID BREANN ROS unable due to pt condition CBCD WBC 7.4 K/mm3 (4.0-10.0) 11/22/17 18:00 RBC 3.84 M/mm3 (3.60-5.2) 11/22/17 18:00 Hgb 11.1 GM/dL (10.7-15.3) 11/22/17 18:00 Hct 33.3 % (32.4-45.2) 11/22/17 18:00 MCV 86.8 fl (80-96) 11/22/17 18:00 MCHC 33.4 g/dl (32.0-36.0) 11/22/17 18:00 RDW 15.0 % (11.6-15.6) 11/22/17 18:00 Plt Count 167 K/MM3 (134-434) D 11/22/17 18:00 MPV 8.7 fl (7.5-11.1) 11/22/17 18:00 CMP Sodium 144 mmol/L (136-145) 11/23/17 01:00 Potassium 3.9 mmol/L (3.5-5.1) 11/23/17 01:00 Chloride 109 mmol/L (98-107) H 11/23/17 01:00 Carbon Dioxide 22 mmol/L (21-32) 11/23/17 01:00 Anion Gap 13 (8-16) 11/23/17 01:00 BUN 23 mg/dL (7-18) H 11/23/17 01:00 Creatinine 0.7 mg/dL (0.55-1.02) 11/23/17 01:00 Creat Clearance w eGFR > 60 (>60) 11/23/17 01:00 Random Glucose 101 mg/dL (74-106) 11/23/17 01:00 Calcium 7.9 mg/dL (8.5-10.1) L 11/23/17 01:00 Total Bilirubin 0.4 mg/dL (0.2-1.0) D 11/23/17 01:00 AST 25 U/L (15-37) 11/23/17 01:00 ALT 24 U/L (12-78) 11/23/17 01:00 Alkaline Phosphatase 70 U/L (45-117) 11/23/17 01:00 Total Protein 6.4 g/dl (6.4-8.2) 11/23/17 01:00 Albumin 2.7 g/dl (3.4-5.0) L 11/23/17 01:00 CARDIAC ENZYMES Creatine Kinase 34 IU/L (26-192) 11/23/17 01:00 Troponin I < 0.02 ng/ml (0.00-0.05) 11/23/17 01:00 PE: Gen: eld, trach, vent HEENT:trach cdi, slight air leak, pinpoint appear non reactive pupils bilat ( surgical?) PULM: scattered rhonchi CV: irreg, no m/r/g appreciated ABD: soft EXT: w/w/p, 1+ pulses NEURO: withdrawals bilaterally, non focal, no facial droop Skin: grossly intact, redness at sacrum. A/ 82 y/o trach vent dep woman with sz in ED after meropenen (? lowered sz threshold), ? cva, and UTI P/ -vent support, if mental status does not return to baseline check abg -abx per ID, -Neuro to see, can repeat CT head -keppra loaded, unclear if needs mcfp sz therapy as may be one off in settingn of UTI and carbapenem -to vent floor if repeat head negative -Per report pt DNR/DNI, awaiting documentation -cont eliquis, will cover for dvt prophy and no indication for GI prophy Dell ACNP [id number]
[2017-11-23] MEDS ORDERED: NEOMYCIN/POLYMYX/HC OPHTHALMIC SUSPENSION 7.5 ML BOTTLE OU SCH (06:00)
[2017-11-23] MEDS: NEOMYCIN/POLYMYXN/HC OTIC SUSPENSION 10 ML BOTTLE AD SCH ×3 (06:23→21:47)
--- NOTE | 2017-11-23 06:49 | PN ---
Teaching Attending Note Name of Resident: Pao Camraillo ATTENDING PHYSICIAN STATEMENT I saw and evaluated the patient. Chart, data, imaging reviewed. I reviewed the resident's note and discussed the case with the resident. I agree with the resident's findings and plan as documented. SUBJECTIVE: 82 y/o woman with hx of end stage COPD trached/vent dependent, heart disease afib on eliquis and with aicd, with recurrent UTI, resident of [place]. Sent initially to hosp due to low temperature, otherwise no other symptoms, no changes to vent settings. In ER, UA with pyuria, LE 3+, given meropenem. Later found to have seizure episode. CT of head with R frontal-temporal, left occipital areas possible ischemia vs artifact? Transferred to ICU for observation after seizure. Loaded with keppra after seizure episode. OBJECTIVE: Last Vital Signs Temp Pulse Resp BP Pulse Ox 98.6 F 75 16 115/55 100 11/23/17 04:51 11/23/17 04:51 11/23/17 04:51 11/23/17 04:51 11/23/17 04:15 Gen: sedated, not responsive, nontoxic appearing HEENT:trach cdi, clear sclera, nonicteric PULM: coarse breath sound appreciated b/l CV: irregularly irregular , no murmurs appreciated ABD: soft, nontender EXT: no edema NEURO: sedated Skin: grossly intact, stage one sacral ulcer Abnormal Lab Results 11/22/17 11/22/17 11/22/17 18:00 18:00 18:31 PT with INR 14.10 H INR 1.25 H Mixed VBG HCO3 27.5 H Chloride BUN 26 H Lactic Acid Calcium Albumin 3.3 L Urine Protein Ur Leukocyte Esterase 11/22/17 11/23/17 11/23/17 19:15 01:00 01:00 PT with INR INR Mixed VBG HCO3 Chloride 109 H BUN 23 H Lactic Acid 4.3 H* Calcium 7.9 L Albumin 2.7 L Urine Protein 3+ H Ur Leukocyte Esterase 3+ H Head CT -reviewed. ASSESSMENT AND PLAN: #82 y/o trach vent dependent woman with sz in ED after meropenem. Questionable head CT findings- ischemia vs artifact. Low suspicion of infection at this time. Vent setting have not changed and do not suspect aspiration pneumonitis. -ICU for vent management -neuro eval for seizure episode -will hold off AEDs at this time -repeat head CT to see if previous findings are reproducible -Per report pt DNR/DNI, need to be confirmed -cont eliquis, will cover for dvt ppx -restart chronic meds -refer to resident note for details
--- NOTE | 2017-11-23 07:19 | PN ---
Progress Note (short form) - Note Progress Note: ID Full note dictated UTI Chronic respiratory failure Aspiration of food LLL pneumonia History of resistant Acinetobacater Seizure in the ER after Meropenem ? Plan Panculture Isolate and Given Cefepime and Tobramycin Lets avoid Carbapenems at least for now Alfred GOMEZ
[2017-11-23 08:43] LABS: BASO % 0.7 % (0-2.0); EOS % 4.1 % (0-4.5); HEMATOCRIT 31.9 % (32.4-45.2); HEMOGLOBIN 10.4 GM/dL (10.7-15.3); LYMPH % 17.4 % (8-40); MCH 28.7 pg (25.7-33.7); MCHC 32.5 g/dl (32.0-36.0); MEAN CELL VOLUME 88.3 fl (80-96); MEAN PLT VOLUME 9.2 fl (7.5-11.1); MONO % 9.1 % (3.8-10.2); NEUT % 68.7 % (42.8-82.8); PLATELET COUNT 147 K/MM3 (134-434); RBC 3.62 M/mm3 (3.60-5.2); RDW 15.2 % (11.6-15.6); WHITE BLOOD COUNT 7.7 K/mm3 (4.0-10.0)
--- NOTE | 2017-11-23 08:56 | PN ---
Physical Exam: SUBJECTIVE: Patient seen and examined This am, pt unresponsive to verbal stimuli. Pt with trach/vent. OBJECTIVE: Vital Signs Period Temp Pulse Resp BP Sys/Vera Pulse Ox Last 24 Hr 98 F-98.9 F 63-75 14-16 104-128/53-82 99-100 GENERAL: thin elderly female, lying in bed, trach/vented, lethargic and non- responsive to verbal stimuli HEENT: b/l pinpoint pupils, not reactive to light LUNGS: mechanical breath sounds HEART: RRR, no murmurs appreciated ABDOMEN: soft, NT, ND EXTREMITIES: no edema NEUROLOGICAL: unresponsive to verbal stimuli, not following commands Laboratory Results - last 24 hr 11/22/17 11/22/17 11/22/17 17:36 18:00 18:00 WBC 7.4 RBC 3.84 Hgb 11.1 Hct 33.3 MCV 86.8 MCH 29.0 MCHC 33.4 RDW 15.0 Plt Count 167 D MPV 8.7 Neutrophils % 72.6 Lymphocytes % 16.0 D Monocytes % 6.6 Eosinophils % 4.3 Basophils % 0.5 PT with INR 14.10 H INR 1.25 H PTT (Actin FS) 30.2 VBG pH POC VBG pCO2 POC VBG pO2 Mixed VBG HCO3 Sodium Potassium Chloride Carbon Dioxide Anion Gap BUN Creatinine Creat Clearance w eGFR Random Glucose Lactic Acid Calcium Total Bilirubin AST ALT Alkaline Phosphatase Creatine Kinase Troponin I Total Protein Albumin Urine Color Urine Appearance Urine pH Ur Specific Roby Urine Protein Urine Glucose (UA) Urine Ketones Urine Blood Urine Nitrite Urine Bilirubin Urine Urobilinogen Ur Leukocyte Esterase Urine WBC (Auto) Urine RBC (Auto) Ur Epithelial Cells Urine Bacteria Urine Mucus Stool Occult Blood Negative Blood Type Antibody Screen 11/22/17 11/22/17 11/22/17 18:00 18:00 18:00 WBC RBC Hgb Hct MCV MCH MCHC RDW Plt Count MPV Neutrophils % Lymphocytes % Monocytes % Eosinophils % Basophils % PT with INR INR PTT (Actin FS) VBG pH POC VBG pCO2 POC VBG pO2 Mixed VBG HCO3 Sodium 144 Potassium 4.4 Chloride 105 Carbon Dioxide 29 Anion Gap 10 BUN 26 H Creatinine 0.6 Creat Clearance w eGFR > 60 Random Glucose 93 Lactic Acid 0.9 Calcium 9.0 Total Bilirubin 0.3 D AST 18 ALT 13 Alkaline Phosphatase 73 Creatine Kinase Troponin I < 0.02 Total Protein 7.5 Albumin 3.3 L Urine Color Urine Appearance Urine pH Ur Specific Roby Urine Protein Urine Glucose (UA) Urine Ketones Urine Blood Urine Nitrite Urine Bilirubin Urine Urobilinogen Ur Leukocyte Esterase Urine WBC (Auto) Urine RBC (Auto) Ur Epithelial Cells Urine Bacteria Urine Mucus Stool Occult Blood Blood Type Antibody Screen 11/22/17 11/22/17 11/22/17 18:31 18:31 19:15 WBC RBC Hgb Hct MCV MCH MCHC RDW Plt Count MPV Neutrophils % Lymphocytes % Monocytes % Eosinophils % Basophils % PT with INR INR PTT (Actin FS) VBG pH 7.38 POC VBG pCO2 47.3 D POC VBG pO2 40.1 D Mixed VBG HCO3 27.5 H Sodium Potassium Chloride Carbon Dioxide Anion Gap BUN Creatinine Creat Clearance w eGFR Random Glucose Lactic Acid Calcium Total Bilirubin AST ALT Alkaline Phosphatase Creatine Kinase Troponin I Total Protein Albumin Urine Color Karen Urine Appearance Turbid Urine pH 8.0 D Ur Specific Roby 1.018 Urine Protein 3+ H Urine Glucose (UA) Negative Urine Ketones Negative Urine Blood Negative Urine Nitrite Positive Urine Bilirubin Negative Urine Urobilinogen Negative Ur Leukocyte Esterase 3+ H Urine WBC (Auto) 391 Urine RBC (Auto) 45 Ur Epithelial Cells Rare Urine Bacteria Rare Urine Mucus Few Stool Occult Blood Blood Type Cancelled Antibody Screen Cancelled 11/23/17 11/23/17 11/23/17 01:00 01:00 01:00 WBC RBC Hgb Hct MCV MCH MCHC RDW Plt Count MPV Neutrophils % Lymphocytes % Monocytes % Eosinophils % Basophils % PT with INR INR PTT (Actin FS) VBG pH POC VBG pCO2 POC VBG pO2 Mixed VBG HCO3 Sodium 144 Potassium 3.9 Chloride 109 H Carbon Dioxide 22 Anion Gap 13 BUN 23 H Creatinine 0.7 Creat Clearance w eGFR > 60 Random Glucose 101 Lactic Acid 4.3 H* Calcium 7.9 L Total Bilirubin 0.4 D AST 25 ALT 24 Alkaline Phosphatase 70 Creatine Kinase 34 Troponin I < 0.02 Total Protein 6.4 Albumin 2.7 L Urine Color Urine Appearance Urine pH Ur Specific Roby Urine Protein Urine Glucose (UA) Urine Ketones Urine Blood Urine Nitrite Urine Bilirubin Urine Urobilinogen Ur Leukocyte Esterase Urine WBC (Auto) Urine RBC (Auto) Ur Epithelial Cells Urine Bacteria Urine Mucus Stool Occult Blood Blood Type Antibody Screen 11/23/17 07:50 WBC 7.7 RBC 3.62 Hgb 10.4 L Hct 31.9 L MCV 88.3 MCH 28.7 MCHC 32.5 RDW 15.2 Plt Count 147 MPV 9.2 Neutrophils % 68.7 Lymphocytes % 17.4 Monocytes % 9.1 Eosinophils % 4.1 Basophils % 0.7 PT with INR INR PTT (Actin FS) VBG pH POC VBG pCO2 POC VBG pO2 Mixed VBG HCO3 Sodium Potassium Chloride Carbon Dioxide Anion Gap BUN Creatinine Creat Clearance w eGFR Random Glucose Lactic Acid Calcium Total Bilirubin AST ALT Alkaline Phosphatase Creatine Kinase Troponin I Total Protein Albumin Urine Color Urine Appearance Urine pH Ur Specific Roby Urine Protein Urine Glucose (UA) Urine Ketones Urine Blood Urine Nitrite Urine Bilirubin Urine Urobilinogen Ur Leukocyte Esterase Urine WBC (Auto) Urine RBC (Auto) Ur Epithelial Cells Urine Bacteria Urine Mucus Stool Occult Blood Blood Type Antibody Screen Active Medications Generic Name Dose Route Start Last Admin Trade Name Freq PRN Reason Stop Dose Admin Acetaminophen 650 mg 11/23/17 02:51 Tylenol - PO Q4H PRN Pain, fever Albuterol Sulfate 1 amp 11/23/17 02:51 Ventolin 0.083% Nebulizer Soln - NEB Q4H PRN SHORT OF BREATH/WHEEZING Apixaban 2.5 mg 11/23/17 10:00 Eliquis - PO BID [facility] Atorvastatin Calcium 10 mg 11/23/17 22:00 Lipitor - PO HS [facility] Docusate Sodium 300 mg 11/23/17 22:00 Colace - PO HS [facility] Ferrous Sulfate 325 mg 11/23/17 10:00 Feosol - PO BID [facility] Cefepime HCl 2 gm/ Dextrose 100 mls @ 100 mls/hr 11/23/17 10:00 IVPB BID [facility] Protocol Tobramycin Sulfate 100 mg/ 102.5 mls @ 102.5 mls/hr 11/23/17 10:00 Sodium Chloride IVPB DAILY [facility] Lactobacillus Acidophilus 1 tab 11/23/17 10:00 Bacid - PO DAILY BREANN Lorazepam 1 mg 11/23/17 03:10 Ativan Injection - IVPUSH Q4H PRN Seizure Metoprolol Tartrate 12.5 mg 11/23/17 10:00 Lopressor - PO BID [facility] Mirtazapine 15 mg 11/23/17 22:00 Remeron - PO HS [facility] Multivitamins/Minerals/Vitamin C 1 tab 11/23/17 10:00 Tab-A-Vit - PO DAILY [facility] Neomycin/Polymyxin/Hydrocortisone 1 drop 11/23/17 06:00 11/23/17 06:23 Cortisporin Otic Suspenstion - AD 1 drop TID BREANN Administration ASSESSMENT/PLAN: 82F w/ hx of end stage COPD (trach/vented), heart disease, a-fib on eliquis wiht AICD, recurrent UTI who presented from [place] with low temp and possible aspiration, found to have + UA, was given meropenem and subsequently developed a tonic clonic seizure, admitted to ICU ID #severe sepsis -etiology 2/2 UTI -no leukocytosis, no fever -ID on board, appreciate recs -continue cefepime and tobramycin -f/u Bcx, Ucx -lactic acidosis of 4.3 today. start NS. f/u repeat LA -trend temps and wbc counts -APAP for fever Neuro #seizure- possibly 2/2 meropenem administration -neuro on board, appreciate recs -CT head showed no acute pathology CV #HTN -continue home lopressor 12.5 BID #HLD -continue home lipitor 10 Resp #end stage COPD -pt on trach/vent -albuterol nebs PRN Hematology #anemia -Hgb of 10.4, down from 11.1 -continue to trend FEN/ppx -NS @83 -electrolytes wnl -NPO -eliquis -no GI ppx Dispo -stable for transfer to floors Case discussed with attending, Dr. Medina. -Ángel Smith MD PGY1 Visit type - Emergency Visit Emergency Visit: Yes ED Registration Date: 11/23/17 Care time: The patient presented to the Emergency Department on the above date and was hospitalized for further evaluation of their emergent condition. - New Patient This patient is new to me today: Yes Date on this admission: 11/23/17 - Critical Care Critical Care patient: Yes Total Critical Care Time (in minutes): 37 Critical Care Statement: The care of this patient involved high complexity decision making to prevent further life threatening deterioration of the patient 's condition and/or to evaluate & treat vital organ system(s) failure or risk of failure.
[2017-11-23 09:03] LABS: ALBUMIN 2.7 g/dl (3.4-5.0); ANION GAP 5 (8-16); BLOOD UREA NITROGEN 20 mg/dL (7-18); CALCIUM 8.1 mg/dL (8.5-10.1); CHLORIDE 110 mmol/L (98-107); CHOLESTEROL 116 mg/dL (50-200); CO2 27 mmol/L (21-32); CREATININE 0.5 mg/dL (0.55-1.02); GLUCOSE,RANDOM 76 mg/dL (74-106); MAGNESIUM 2.1 mg/dL (1.8-2.4); PHOSPHOROUS 2.6 mg/dL (2.5-4.9); POTASSIUM 3.9 mmol/L (3.5-5.1); SGOT/AST 18 U/L (15-37); SGPT/ALT 20 U/L (12-78); SODIUM 142 mmol/L (136-145); TOT PROT 6.4 g/dl (6.4-8.2)
[2017-11-23 09:05] LABS: ALK PHOS 72 U/L (45-117); BILIRUBIN,TOTAL 0.4 mg/dL (0.2-1.0); HDL CHOLESTEROL 49 mg/dL (40-60); TRIGLYCERIDES 98 mg/dL (35-160)
--- NOTE | 2017-11-23 09:08 | CONS ---
DATE OF CONSULTATION: DATE OF DICTATION: 11/23/2017 HISTORY OF PRESENT ILLNESS: The patient is an 82-year-old chronic vent-dependent female from [facility] who was sent now due to low-grade temperature and the possibility that she may have aspirated food particles noted after suctioning her tracheostomy. She has a history of atrial fibrillation and recurrent urinary tract infections. She also is known to have a resistant Acinetobacter in her respiratory cultures previously. There was no fever or localizing complaints on admission and originally in the emergency room she was normotensive with a normal temperature and saturating well based on her normal ventilatory settings. The urinalysis had 300 white cells. She apparently was given a dose of meropenem and soon afterward had a self-limited tonic-clonic seizure. She underwent head imaging which showed a possible parietal infarct on the right side. She was given seizure medication and I am called for further evaluation in the ICU for antibiotic management. She is poorly responsive and not toxic appearing on the ventilator. MEDICATIONS: Include Eliquis, Lipitor, ferrous sulfate, Remeron, metoprolol, atorvastatin. ALLERGIES: DOXYCYCLINE and SHELLFISH. SOCIAL HISTORY: Unknown smoking. No known history of alcohol use. half-way resident. FAMILY HISTORY: Unobtainable. REVIEW OF SYSTEMS:Respiratory: Chronic ventilatory dependency. Cardiac: No history of palpitations, chest pain, murmur. Gastrointestinal: No abdominal pain, vomiting, diarrhea, blood per rectum. Genitourinary: Incontinent of urine. No gross hematuria noted. PHYSICAL EXAMINATION: Vital Signs: Her temperature was 98.6, pulse 75, blood pressure 115/55, respirations 16, FIO2 40%. Neck: Supple with a tracheostomy. Lungs: Bilateral breath sounds. Heart: S1, S2. Regular rhythm without audible murmur or gallop. Abdomen: Soft, nontender. Normoactive bowel sounds. No guarding or rebound. Extremities: No clubbing, cyanosis or edema. LABORATORY DATA: The white count is 7.4 with a hemoglobin 11.1 and platelets of 167, normal differential. INR 1.25. BUN 23, creatinine 0.7. Liver enzymes within normal limits. Lactic acid of 4.3. UA with 3+ leukocyte esterase, 400 white cells, 45 red cells. My CAT scan reading shows possible infiltrate in the rigth lower lobe versus chronic changes. ASSESSMENT: 1. Aspiration in the fpc with possible left lower lobe pneumonia. 2. History of a drug-resistant Acinetobacter, April 2017. 3. Recurrent urinary tract infection. 4. Possible acute central nervous system infarct, parietal area. 5. Tonic-clonic seizure, stroke and/or related to administration carbapenem. 6. Chronic ventilatory dependency with tracheostomy. PLAN: Blood, urine and sputum cultures. Initial therapy with a combination of cefepime and tobramycin. Contact isolation for resistant organism. Neurology consultation. Forty minutes spent providing ICU care and review. TRISTNA VARGAS M.D. [id number]
--- NOTE | 2017-11-23 09:31 | EKG ---
Test Reason : Blood Pressure : / mmHG Vent. Rate : 083 BPM Atrial Rate : 083 BPM P-R Int : 152 ms QRS Dur : 088 ms QT Int : 364 ms P-R-T Axes : 094 006 062 degrees QTc Int : 427 ms SINUS RHYTHM WITH FUSION COMPLEXES ANTEROSEPTAL INFARCT (CITED ON OR BEFORE 15-APR-2016) ABNORMAL ECG WHEN COMPARED WITH ECG OF 22-NOV-2017 18:36, FUSION COMPLEXES ARE NOW PRESENT CRITERIA FOR INFERIOR INFARCT ARE NO LONGER PRESENT NONSPECIFIC T WAVE ABNORMALITY, WORSE IN INFERIOR LEADS Confirmed by JAXON BARTON MD ([id number]) on 11/23/2017 9:31:35 AM Referred By: Confirmed By:JAXON BARTON MD
--- NOTE | 2017-11-23 09:34 | EKG ---
Test Reason : Blood Pressure : / mmHG Vent. Rate : 058 BPM Atrial Rate : 058 BPM P-R Int : 150 ms QRS Dur : 080 ms QT Int : 450 ms P-R-T Axes : 088 -26 038 degrees QTc Int : 441 ms SINUS BRADYCARDIA INFERIOR INFARCT , AGE UNDETERMINED ANTEROSEPTAL INFARCT (CITED ON OR BEFORE 15-APR-2016) ABNORMAL ECG WHEN COMPARED WITH ECG OF 27-MAY-2017 14:36, QRS AXIS SHIFTED LEFT QUESTIONABLE CHANGE IN INITIAL FORCES OF SEPTAL LEADS Confirmed by JAXON BARTON MD ([id number]) on 11/23/2017 9:34:26 AM Referred By: Confirmed By:JAXON BARTON MD
[2017-11-23] MEDS ORDERED: TOBRAMYCIN SULFATE 1,200 MG VIAL IVPB SCH (10:00)
[2017-11-23] MEDS ORDERED: APIXABAN 2.5 MG TABLET PO SCH ×2 (10:00)
[2017-11-23] MEDS ORDERED: PATIENT'S OWN MEDICATION (NON-FORMULARY) (Ascorbic Acid/Ascorbate Sodium [Vitamin C 500 Mg PO SCH (10:00)
[2017-11-23] MEDS ORDERED: FERROUS SO4 325 MG TABLET (FP) PO SCH (10:00)
[2017-11-23] MEDS ORDERED: CEFEPIME 2 GM in DEXTROSE 5%-WATER - 100 ML IVPB SCH ×2 (10:00→22:00)
[2017-11-23] MEDS ORDERED: TOBRAMYCIN SULFATE IVPB SCH (10:00)
[2017-11-23] MEDS ORDERED: MEROPENEM 1 GM in DEXTROSE 5%-WATER 100 ML IVPB ONE (10:00)
[2017-11-23] MEDS ORDERED: METOPROLOL TARTRATE 25 MG TABLET (FP) PO SCH ×2 (10:00)
[2017-11-23] MEDS ORDERED: PATIENT'S OWN MEDICATION (NON-FORMULARY) (Hypromellose 0.5% Opth Soln [Artificial Tears] 1 OU SCH (10:00)
[2017-11-23] MEDS ORDERED: LACTOBACILLUS ACIDOPHILUS 1 TABLET PO SCH ×2 (10:00)
[2017-11-23] MEDS ORDERED: PATIENT'S OWN MEDICATION (NON-FORMULARY) (Ferrous Sulfate [Ferrous Sulfate] 325 MG) PO SCH (10:00)
[2017-11-23] MEDS ORDERED: SODIUM CHLORIDE IVPB SCH (10:00)
[2017-11-23] MEDS ORDERED: MULTIVITAMINS (DAILY MVI) TABLET (FP) PO SCH ×2 (10:00)
[2017-11-23] MEDS ORDERED: ACETAMINOPHEN 1000 MG/100 ML VIAL (NON FORMULARY) IVPB PRN ×2 (11:22→18:33)
[2017-11-23] MEDS ORDERED: SODIUM CHLORIDE 1,000 ML IV SCH ×2 (11:30→18:33)
[2017-11-23] MEDS ORDERED: METOPROLOL TARTRATE 5 MG/5 ML VIAL IVPUSH SCH (11:30)
--- NOTE | 2017-11-23 12:14 | PN ---
Progress Note, Physician History of Present Illness: NOTES REVIEWED TRANSFERRED FROM [facility] HYPOTHERMIA R/O SEIZURES ASPIRATIONS PNA - Current Medication List Current Medications: Active Medications Acetaminophen (Ofirmev Injection -) 1,000 mg IVPB Q6H PRN PRN Reason: FEVER Albuterol Sulfate (Ventolin 0.083% Nebulizer Soln -) 1 amp NEB Q4H PRN PRN Reason: SHORT OF BREATH/WHEEZING Apixaban (Eliquis -) 2.5 mg PO BID REPLACED BY [facility] Last Admin: 11/23/17 09:34 Dose: Not Given Atorvastatin Calcium (Lipitor -) 10 mg PO HS BREANN Docusate Sodium (Colace -) 300 mg PO HS REPLACED BY [facility] Ferrous Sulfate (Feosol -) 325 mg PO BID REPLACED BY [facility] Last Admin: 11/23/17 09:34 Dose: Not Given Cefepime HCl 2 gm/ Dextrose 100 mls @ 100 mls/hr IVPB BID BREANN PRN Reason: Protocol Last Admin: 11/23/17 09:43 Dose: 100 mls/hr Tobramycin Sulfate 100 mg/ (Sodium Chloride) 102.5 mls @ 102.5 mls/hr IVPB DAILY REPLACED BY [facility] Last Admin: 11/23/17 09:43 Dose: 102.5 mls/hr Sodium Chloride (Normal Saline -) 1,000 mls @ 75 mls/hr IV ASDIR REPLACED BY [facility] Stop: 11/24/17 00:49 Lactobacillus Acidophilus (Bacid -) 1 tab PO DAILY REPLACED BY [facility] Last Admin: 11/23/17 09:34 Dose: Not Given Lorazepam (Ativan Injection -) 1 mg IVPUSH Q4H PRN PRN Reason: Seizure Metoprolol Tartrate (Lopressor -) 12.5 mg PO BID REPLACED BY [facility] Last Admin: 11/23/17 09:35 Dose: Not Given Mirtazapine (Remeron -) 15 mg PO HS REPLACED BY [facility] Multivitamins/Minerals/Vitamin C (Tab-A-Vit -) 1 tab PO DAILY REPLACED BY [facility] Last Admin: 11/23/17 09:36 Dose: Not Given Neomycin/Polymyxin/Hydrocortisone (Cortisporin Otic Suspenstion -) 1 drop AD TID REPLACED BY [facility] Last Admin: 11/23/17 06:23 Dose: 1 drop - Objective Vital Signs: Vital Signs Temperature 98.6 F 11/23/17 04:51 Pulse Rate 63 11/23/17 08:29 Respiratory Rate 14 11/23/17 08:30 Blood Pressure 115/55 11/23/17 04:51 O2 Sat by Pulse Oximetry (%) 99 11/23/17 08:29 Constitutional: Yes: Mild Distress Eyes: Yes: WNL HENT: Yes: WNL Neck: Yes: WNL Cardiovascular: Yes: WNL Respiratory: Yes: Mechanically Ventilated Gastrointestinal: Yes: WNL Genitourinary: Yes: Incontinence Musculoskeletal: Yes: Muscle Weakness Extremities: Yes: Other Edema: No Peripheral Pulses WNL: Yes Integumentary: Yes: Other Wound/Incision: Yes: Dressing Dry and Intact Neurological: Yes: Pre-Existing Deficit ...Motor Strength: LLE, RLE Psychiatric: Yes: Other Labs: CBC, BMP 11/23/17 07:50 11/23/17 07:50 INR, PTT INR 1.25 (0.82-1.09) H 11/22/17 18:00 Problem List - Problems (1) Diaphoresis Code(s): R61 - GENERALIZED HYPERHIDROSIS (2) Hypotension Code(s): I95.9 - HYPOTENSION, UNSPECIFIED (3) Seizure Code(s): R56.9 - UNSPECIFIED CONVULSIONS (4) AICD (automatic cardioverter/defibrillator) present Code(s): Z95.810 - PRESENCE OF AUTOMATIC (IMPLANTABLE) CARDIAC DEFIBRILLATOR (5) Respirator dependence Code(s): Z99.11 - DEPENDENCE ON RESPIRATOR [VENTILATOR] STATUS Assessment/Plan ID WORKUP NEURO EVAL ICU PULM F/U DVT PROPHYLAXIS DNR CHECK CULTURES SWALLOW EVAL
--- NOTE | 2017-11-23 12:39 | PN ---
Teaching Attending Note Name of Resident: Ángel Smith ATTENDING PHYSICIAN STATEMENT I saw and evaluated the patient. I reviewed the resident's note and discussed the case with the resident. I agree with the resident's findings and plan as documented. SUBJECTIVE: Patient seen and examined in the ICU. Lethargic on AC Mode of vent. No further seizure activity. No pressors. Intake & Output 11/20/17 11/21/17 11/22/17 11/23/17 23:59 23:59 23:59 23:59 Weight 94 lb 92 lb 8 oz Last Vital Signs Temp Pulse Resp BP Pulse Ox 98.6 F 63 14 115/55 97 11/23/17 04:51 11/23/17 08:29 11/23/17 08:30 11/23/17 04:51 11/23/17 11:20 Active Medications Acetaminophen (Ofirmev Injection -) 1,000 mg IVPB Q6H PRN PRN Reason: FEVER Albuterol Sulfate (Ventolin 0.083% Nebulizer Soln -) 1 amp NEB Q4H PRN PRN Reason: SHORT OF BREATH/WHEEZING Apixaban (Eliquis -) 2.5 mg PO BID [facility] Last Admin: 11/23/17 09:34 Dose: Not Given Atorvastatin Calcium (Lipitor -) 10 mg PO HS BREANN Docusate Sodium (Colace -) 300 mg PO HS BREANN Ferrous Sulfate (Feosol -) 325 mg PO BID [facility] Last Admin: 11/23/17 09:34 Dose: Not Given Cefepime HCl 2 gm/ Dextrose 100 mls @ 100 mls/hr IVPB BID BREANN PRN Reason: Protocol Last Admin: 11/23/17 09:43 Dose: 100 mls/hr Tobramycin Sulfate 100 mg/ (Sodium Chloride) 102.5 mls @ 102.5 mls/hr IVPB DAILY [facility] Last Admin: 11/23/17 09:43 Dose: 102.5 mls/hr Sodium Chloride (Normal Saline -) 1,000 mls @ 75 mls/hr IV ASDIR [facility] Stop: 11/24/17 00:49 Lactobacillus Acidophilus (Bacid -) 1 tab PO DAILY [facility] Last Admin: 11/23/17 09:34 Dose: Not Given Lorazepam (Ativan Injection -) 1 mg IVPUSH Q4H PRN PRN Reason: Seizure Metoprolol Tartrate (Lopressor -) 12.5 mg PO BID [facility] Last Admin: 11/23/17 09:35 Dose: Not Given Mirtazapine (Remeron -) 15 mg PO [facility] Multivitamins/Minerals/Vitamin C (Tab-A-Vit -) 1 tab PO DAILY [facility] Last Admin: 11/23/17 09:36 Dose: Not Given Neomycin/Polymyxin/Hydrocortisone (Cortisporin Otic Suspenstion -) 1 drop AD TID [facility] Last Admin: 11/23/17 06:23 Dose: 1 drop PE: Gen: Lethargic, trached, vented HEENT:trach clean PULM: scattered rhonchi CV: irregular ABD: soft, (+) BS EXT: (+) PP, (-) edema NEURO: withdrawals bilaterally, non focal, no facial droop Skin: grossly intact, redness at sacrum. Laboratory Results - last 24 hr 11/22/17 11/22/17 11/22/17 17:36 18:00 18:00 WBC 7.4 RBC 3.84 Hgb 11.1 Hct 33.3 MCV 86.8 MCH 29.0 MCHC 33.4 RDW 15.0 Plt Count 167 D MPV 8.7 Neutrophils % 72.6 Lymphocytes % 16.0 D Monocytes % 6.6 Eosinophils % 4.3 Basophils % 0.5 PT with INR 14.10 H INR 1.25 H PTT (Actin FS) 30.2 VBG pH POC VBG pCO2 POC VBG pO2 Mixed VBG HCO3 Sodium Potassium Chloride Carbon Dioxide Anion Gap BUN Creatinine Creat Clearance w eGFR Random Glucose Lactic Acid Calcium Phosphorus Magnesium Total Bilirubin AST ALT Alkaline Phosphatase Creatine Kinase Troponin I Total Protein Albumin Triglycerides Cholesterol Total LDL Cholesterol HDL Cholesterol Urine Color Urine Appearance Urine pH Ur Specific [place] Urine Protein Urine Glucose (UA) Urine Ketones Urine Blood Urine Nitrite Urine Bilirubin Urine Urobilinogen Ur Leukocyte Esterase Urine WBC (Auto) Urine RBC (Auto) Ur Epithelial Cells Urine Bacteria Urine Mucus Stool Occult Blood Negative Blood Type Antibody Screen 11/22/17 11/22/17 11/22/17 18:00 18:00 18:00 WBC RBC Hgb Hct MCV MCH MCHC RDW Plt Count MPV Neutrophils % Lymphocytes % Monocytes % Eosinophils % Basophils % PT with INR INR PTT (Actin FS) VBG pH POC VBG pCO2 POC VBG pO2 Mixed VBG HCO3 Sodium 144 Potassium 4.4 Chloride 105 Carbon Dioxide 29 Anion Gap 10 BUN 26 H Creatinine 0.6 Creat Clearance w eGFR > 60 Random Glucose 93 Lactic Acid 0.9 Calcium 9.0 Phosphorus Magnesium Total Bilirubin 0.3 D AST 18 ALT 13 Alkaline Phosphatase 73 Creatine Kinase Troponin I < 0.02 Total Protein 7.5 Albumin 3.3 L Triglycerides Cholesterol Total LDL Cholesterol HDL Cholesterol Urine Color Urine Appearance Urine pH Ur Specific [place] Urine Protein Urine Glucose (UA) Urine Ketones Urine Blood Urine Nitrite Urine Bilirubin Urine Urobilinogen Ur Leukocyte Esterase Urine WBC (Auto) Urine RBC (Auto) Ur Epithelial Cells Urine Bacteria Urine Mucus Stool Occult Blood Blood Type Antibody Screen 11/22/17 11/22/17 11/22/17 18:31 18:31 19:15 WBC RBC Hgb Hct MCV MCH MCHC RDW Plt Count MPV Neutrophils % Lymphocytes % Monocytes % Eosinophils % Basophils % PT with INR INR PTT (Actin FS) VBG pH 7.38 POC VBG pCO2 47.3 D POC VBG pO2 40.1 D Mixed VBG HCO3 27.5 H Sodium Potassium Chloride Carbon Dioxide Anion Gap BUN Creatinine Creat Clearance w eGFR Random Glucose Lactic Acid Calcium Phosphorus Magnesium Total Bilirubin AST ALT Alkaline Phosphatase Creatine Kinase Troponin I Total Protein Albumin Triglycerides Cholesterol Total LDL Cholesterol HDL Cholesterol Urine Color Karen Urine Appearance Turbid Urine pH 8.0 D Ur Specific [place] 1.018 Urine Protein 3+ H Urine Glucose (UA) Negative Urine Ketones Negative Urine Blood Negative Urine Nitrite Positive Urine Bilirubin Negative Urine Urobilinogen Negative Ur Leukocyte Esterase 3+ H Urine WBC (Auto) 391 Urine RBC (Auto) 45 Ur Epithelial Cells Rare Urine Bacteria Rare Urine Mucus Few Stool Occult Blood Blood Type Cancelled Antibody Screen Cancelled 11/23/17 11/23/17 11/23/17 01:00 01:00 01:00 WBC RBC Hgb Hct MCV MCH MCHC RDW Plt Count MPV Neutrophils % Lymphocytes % Monocytes % Eosinophils % Basophils % PT with INR INR PTT (Actin FS) VBG pH POC VBG pCO2 POC VBG pO2 Mixed VBG HCO3 Sodium 144 Potassium 3.9 Chloride 109 H Carbon Dioxide 22 Anion Gap 13 BUN 23 H Creatinine 0.7 Creat Clearance w eGFR > 60 Random Glucose 101 Lactic Acid 4.3 H* Calcium 7.9 L Phosphorus Magnesium Total Bilirubin 0.4 D AST 25 ALT 24 Alkaline Phosphatase 70 Creatine Kinase 34 Troponin I < 0.02 Total Protein 6.4 Albumin 2.7 L Triglycerides Cholesterol Total LDL Cholesterol HDL Cholesterol Urine Color Urine Appearance Urine pH Ur Specific [place] Urine Protein Urine Glucose (UA) Urine Ketones Urine Blood Urine Nitrite Urine Bilirubin Urine Urobilinogen Ur Leukocyte Esterase Urine WBC (Auto) Urine RBC (Auto) Ur Epithelial Cells Urine Bacteria Urine Mucus Stool Occult Blood Blood Type Antibody Screen 11/23/17 11/23/17 07:50 07:50 WBC 7.7 RBC 3.62 Hgb 10.4 L Hct 31.9 L MCV 88.3 MCH 28.7 MCHC 32.5 RDW 15.2 Plt Count 147 MPV 9.2 Neutrophils % 68.7 Lymphocytes % 17.4 Monocytes % 9.1 Eosinophils % 4.1 Basophils % 0.7 PT with INR INR PTT (Actin FS) VBG pH POC VBG pCO2 POC VBG pO2 Mixed VBG HCO3 Sodium 142 Potassium 3.9 Chloride 110 H Carbon Dioxide 27 Anion Gap 5 L BUN 20 H Creatinine 0.5 L Creat Clearance w eGFR > 60 Random Glucose 76 Lactic Acid Calcium 8.1 L Phosphorus 2.6 Magnesium 2.1 Total Bilirubin 0.4 AST 18 ALT 20 Alkaline Phosphatase 72 Creatine Kinase Troponin I Total Protein 6.4 Albumin 2.7 L Triglycerides 98 Cholesterol 116 Total LDL Cholesterol 60 HDL Cholesterol 49 Urine Color Urine Appearance Urine pH Ur Specific [place] Urine Protein Urine Glucose (UA) Urine Ketones Urine Blood Urine Nitrite Urine Bilirubin Urine Urobilinogen Ur Leukocyte Esterase Urine WBC (Auto) Urine RBC (Auto) Ur Epithelial Cells Urine Bacteria Urine Mucus Stool Occult Blood Blood Type Antibody Screen IMP: S/P Seizure (?) CVA AMS (?) PNA : patient with chronic Left sided changes UTI Chronic Respiratory Failure End stage COPD CAD AFib AICD Recurrent UTI, PLAN: ABX per ID AC Mode of vent Seizure precautions AEDs DNR/DNI Vent Floor Dr Medina Critical care time spent in reviewing chart, evaluating patient and formulating plan - 36 minutes.
--- NOTE | 2017-11-23 16:54 | CONSULT ---
Consult - text type - Consultation Consultation Note: NEUROLOGY CONSULTATION is greatly appreciated: This 82 yo woman with multiple medical problems, dementia and COPD is s/p trache and ventilator dependent. AFib on eliquis. In NH with recurrent UTI's. Now transferred after becoming "cold and clammy" in the NH. In ER: Urine WBC= 391. Given IV emepenem and developed a witnessed generalized Tonic-clonic seizure. Received lorazepam 2 mg IV and levetiracetam 1000mg IV. CT of head (reviewed): Diffuse atrophy and microvascular changes. Densely calcified ependyma. No change from 06/08. Carotid dopplers: Left carotid plaque at the bifurcation without sig hemodynamic changes. Right side not technically possible. EXAM: Awake but eyes closed. + Glabella, snout, grasps + spontaneous respirations. Resists eye opening with good, symmetrical facial strength. Moves all 4's well with purposeful movements of both arms. Normal [employer]. Areflexic in legs with early contractures both knees. Withdraws all fours briskly to pinch. Downgoing toes. IMP: 1. Severe, B/L, cerebral dysfunction (OMS, Chronic) 2. Toxic-metabolic encephalopathy due to UTI/urosepsis 3. Meropenem-induced seizure. SUGGEST: Agree completely with current regimen. Continue antibiotics, hydration. Observe off seizure meds at this time. Thank you very much, Harjinder Newman MD
[2017-11-23] MEDS ORDERED: CEFEPIME 2 GM in DEXTROSE 5%-WATER 100 ML IVPB SCH (19:00)
[2017-11-23] MEDS ORDERED: CEFEPIME 2 GM in DEXTROSE 5%-WATER 100 ML IVPB ONE (19:00)
[2017-11-23] MEDS: CEFEPIME 2 GM in DEXTROSE 5%-WATER 100 ML IVPB SCH (21:40)
[2017-11-23] MEDS: ATORVASTATIN CA 10 MG TABLET (FP) PO SCH (21:44)
[2017-11-23] MEDS: DOCUSATE SODIUM 100 MG CAPSULE (FP) PO SCH (21:44)
[2017-11-23] MEDS: FERROUS SO4 325 MG TABLET (FP) PO SCH (21:44)
[2017-11-23] MEDS: APIXABAN 2.5 MG TABLET PO SCH (21:44)
[2017-11-23] MEDS: MIRTAZAPINE 15 MG TABLET (FP) PO SCH (21:45)
[2017-11-23] MEDS: METOPROLOL TARTRATE 25 MG TABLET (FP) PO SCH (21:45)
[2017-11-23] MEDS ORDERED: DOCUSATE SODIUM 100 MG CAPSULE (FP) PO SCH ×2 (22:00)
[2017-11-23] MEDS ORDERED: ATORVASTATIN CA 10 MG TABLET (FP) PO SCH ×2 (22:00)
[2017-11-23] MEDS ORDERED: MIRTAZAPINE 15 MG TABLET (FP) PO SCH ×2 (22:00)
[2017-11-24] MEDS: NEOMYCIN/POLYMYXN/HC OTIC SUSPENSION 10 ML BOTTLE AD SCH ×3 (06:17→21:15)
[2017-11-24] MEDS ORDERED: PT OWN MED DRAWER 7, Y5N ONE ×2 (07:39→10:47)
[2017-11-24] MEDS: CEFEPIME 2 GM in DEXTROSE 5%-WATER 100 ML IVPB SCH ×2 (07:41→20:33)
[2017-11-24 08:01] LABS: ALBUMIN 2.9 g/dl (3.4-5.0); ALK PHOS 68 U/L (45-117); ANION GAP 9 (8-16); BILIRUBIN,TOTAL 0.5 mg/dL (0.2-1.0); BLOOD UREA NITROGEN 22 mg/dL (7-18); CALCIUM 8.2 mg/dL (8.5-10.1); CHLORIDE 110 mmol/L (98-107); CO2 26 mmol/L (21-32); CREATININE 0.6 mg/dL (0.55-1.02); GLUCOSE,RANDOM 65 mg/dL (74-106); PHOSPHOROUS 2.4 mg/dL (2.5-4.9); POTASSIUM 3.6 mmol/L (3.5-5.1); SGOT/AST 17 U/L (15-37); SGPT/ALT 18 U/L (12-78); SODIUM 145 mmol/L (136-145); TOT PROT 6.4 g/dl (6.4-8.2)
[2017-11-24 08:13] LABS: BASO % 0.9 % (0-2.0); EOS % 6.1 % (0-4.5); HEMATOCRIT 31.9 % (32.4-45.2); HEMOGLOBIN 10.5 GM/dL (10.7-15.3); LYMPH % 17.7 % (8-40); MCHC 32.8 g/dl (32.0-36.0); MEAN CELL VOLUME 88.4 fl (80-96); MEAN PLT VOLUME 9.2 fl (7.5-11.1); MONO % 9.4 % (3.8-10.2); NEUT % 65.9 % (42.8-82.8); PLATELET COUNT 128 K/MM3 (134-434); RBC 3.61 M/mm3 (3.60-5.2); RDW 15.2 % (11.6-15.6); WHITE BLOOD COUNT 6.8 K/mm3 (4.0-10.0)
--- NOTE | 2017-11-24 08:33 | PN ---
Progress Note (short form) - Note Progress Note: Pulm/CCM F/u note SUBJECTIVE: -neuro feels unlikely CVA -no further SZ activity, no aed in for vent floor bed Vital Signs Temp 98.1 F 11/24/17 07:04 Pulse 50 L 11/24/17 08:17 Resp 14 11/24/17 08:17 BP 109/42 11/24/17 07:04 Pulse Ox 98 11/24/17 08:17 Intake & Output 11/23/17 11/23/17 11/24/17 11:59 23:59 11:59 Intake Total 425 1000 Balance 425 1000 Weight 41.957 kg Intake: IV 225 900 Normal Saline - 1,000 ml 225 @ 75 mls/hr IV ASDIR BREANN Rx#:[id number] Normal Saline - 1,000 ml 900 @ 75 mls/hr IV ASDIR BREANN Rx#:[id number] IVPB 200 100 Other: Voiding Method Incontinent Incontinent Incontinent # Unmeasured Voids Void 1 1 2 Bowel Movement Yes Yes # Bowel Movements 1 1 Height 4 ft 3.97 in Body Mass Index (BMI) 24.0 Weight Measurement Method Built in [facility] PE: Gen: poorly responsive HEENT:trach clean PULM: coarse rhonchi, clears with suctioning CV: irregular ABD: soft, (+) BS EXT: (+) PP, (-) edema NEURO: withdrawals bilaterally, non focal, no facial droop Skin: grossly intact, redness at sacrum. Active Medications Acetaminophen (Ofirmev Injection -) 1,000 mg IVPB Q6H PRN PRN Reason: FEVER Albuterol Sulfate (Ventolin 0.083% Nebulizer Soln -) 1 amp NEB Q4H PRN PRN Reason: SHORT OF BREATH/WHEEZING Apixaban (Eliquis -) 2.5 mg PO BID [facility] Last Admin: 11/23/17 21:44 Dose: Not Given Atorvastatin Calcium (Lipitor -) 10 mg PO [facility] Last Admin: 11/23/17 21:44 Dose: Not Given Docusate Sodium (Colace -) 300 mg PO [facility] Last Admin: 11/23/17 21:44 Dose: Not Given Ferrous Sulfate (Feosol -) 325 mg PO BID [facility] Last Admin: 11/23/17 21:44 Dose: Not Given Sodium Chloride (Normal Saline -) 1,000 mls @ 75 mls/hr IV ASDIR [facility] Tobramycin Sulfate 100 mg/ (Sodium Chloride) 102.5 mls @ 102.5 mls/hr IVPB DAILY [facility] Cefepime HCl 2 gm/ Dextrose 100 mls @ 200 mls/hr IVPB BID@0800,2000 BREANN PRN Reason: Protocol Last Admin: 11/24/17 07:41 Dose: 200 mls/hr Lactobacillus Acidophilus (Bacid -) 1 tab PO DAILY [facility] Lorazepam (Ativan Injection -) 1 mg IVPUSH Q4H PRN PRN Reason: Seizure Metoprolol Tartrate (Lopressor -) 12.5 mg PO BID [facility] Last Admin: 11/23/17 21:45 Dose: Not Given Mirtazapine (Remeron -) 15 mg PO HS [facility] Last Admin: 11/23/17 21:45 Dose: Not Given Multivitamins/Minerals/Vitamin C (Tab-A-Vit -) 1 tab PO DAILY [facility] Neomycin/Polymyxin/Hydrocortisone (Cortisporin Otic Suspenstion -) 1 drop AD TID [facility] Last Admin: 11/24/17 06:17 Dose: 1 drop IMP: S/P Seizure (?) CVA AMS (?) PNA : patient with chronic Left sided changes UTI Chronic Respiratory Failure End stage COPD CAD AFib AICD Recurrent UTI, PLAN: ABX per ID AC Mode of vent Seizure precautions -will add back AED if further sz activity and considerEEG DNR/DNI Awaiting Vent Floor [facility] [id number]
[2017-11-24] MEDS: LACTOBACILLUS ACIDOPHILUS 1 TABLET PO SCH (10:56)
[2017-11-24] MEDS: APIXABAN 2.5 MG TABLET PO SCH ×2 (10:56→21:15)
[2017-11-24] MEDS: METOPROLOL TARTRATE 25 MG TABLET (FP) PO SCH ×2 (10:56→21:16)
[2017-11-24] MEDS: MULTIVITAMINS (DAILY MVI) TABLET (FP) PO SCH (10:56)
[2017-11-24] MEDS: FERROUS SO4 325 MG TABLET (FP) PO SCH ×2 (10:56→21:16)
--- NOTE | 2017-11-24 11:31 | PN ---
Progress Note, Physician History of Present Illness: 82F w/ hx of end stage COPD (trach/vented), heart disease, a-fib on eliquis wiht AICD, recurrent UTI who presented from [place] with low temp and possible aspiration, found to have + UA, was given meropenem and subsequently developed a tonic clonic seizure, admitted to ICU - Current Medication List Current Medications: Active Medications Acetaminophen (Ofirmev Injection -) 1,000 mg IVPB Q6H PRN PRN Reason: FEVER Albuterol Sulfate (Ventolin 0.083% Nebulizer Soln -) 1 amp NEB Q4H PRN PRN Reason: SHORT OF BREATH/WHEEZING Apixaban (Eliquis -) 2.5 mg PO BID [facility] Last Admin: 11/24/17 10:56 Dose: Not Given Atorvastatin Calcium (Lipitor -) 10 mg PO HS [facility] Last Admin: 11/23/17 21:44 Dose: Not Given Docusate Sodium (Colace -) 300 mg PO HS [facility] Last Admin: 11/23/17 21:44 Dose: Not Given Ferrous Sulfate (Feosol -) 325 mg PO BID [facility] Last Admin: 11/24/17 10:56 Dose: Not Given Sodium Chloride (Normal Saline -) 1,000 mls @ 75 mls/hr IV ASDIR [facility] Tobramycin Sulfate 100 mg/ (Sodium Chloride) 102.5 mls @ 102.5 mls/hr IVPB DAILY [facility] Cefepime HCl 2 gm/ Dextrose 100 mls @ 200 mls/hr IVPB BID@0800,2000 BREANN PRN Reason: Protocol Last Admin: 11/24/17 07:41 Dose: 200 mls/hr Lactobacillus Acidophilus (Bacid -) 1 tab PO DAILY [facility] Last Admin: 11/24/17 10:56 Dose: Not Given Lorazepam (Ativan Injection -) 1 mg IVPUSH Q4H PRN PRN Reason: Seizure Metoprolol Tartrate (Lopressor -) 12.5 mg PO BID [facility] Last Admin: 11/24/17 10:56 Dose: Not Given Mirtazapine (Remeron -) 15 mg PO HS [facility] Last Admin: 11/23/17 21:45 Dose: Not Given Multivitamins/Minerals/Vitamin C (Tab-A-Vit -) 1 tab PO DAILY [facility] Last Admin: 05/05/18 10:56 Dose: Not Given Neomycin/Polymyxin/Hydrocortisone (Cortisporin Otic Suspenstion -) 1 drop AD TID BREANN Last Admin: 11/24/17 06:17 Dose: 1 drop - Objective Vital Signs: Vital Signs Temperature 98.8 F 11/24/17 10:59 Pulse Rate 63 11/24/17 10:59 Respiratory Rate 14 11/24/17 11:13 Blood Pressure 105/54 11/24/17 10:59 O2 Sat by Pulse Oximetry (%) 98 11/24/17 11:12 Cardiovascular: Yes: S1, S2 Respiratory: Yes: Mechanically Ventilated, Rhonchi Gastrointestinal: Yes: Normal Bowel Sounds, Soft Labs: CBC, BMP 11/24/17 07:25 11/24/17 07:25 INR, PTT INR 1.25 (0.82-1.09) H 11/22/17 18:00 Problem List - Problems (1) Sepsis Assessment/Plan: ID #severe sepsis -etiology 2/2 UTI -no leukocytosis, no fever -ID on board, appreciate recs -continue cefepime and tobramycin -f/u Bcx, Ucx -lactic acidosis of 4.3 repeat 1.2 -trend temps and wbc counts -APAP for fever -clinimex -electrolytes wnl -NPO Code(s): A41.9 - SEPSIS, UNSPECIFIED ORGANISM (2) Seizure Assessment/Plan: -possibly 2/2 meropenem administration -neuro on board, appreciate recs -CT head showed no acute pathology Code(s): R56.9 - UNSPECIFIED CONVULSIONS (3) Chronic respiratory failure Assessment/Plan: -pt on trach/vent -albuterol nebs PRN Code(s): J96.10 - CHRONIC RESPIRATORY FAILURE, UNSP W HYPOXIA OR HYPERCAPNIA
--- NOTE | 2017-11-24 12:24 | PN ---
Progress Note, Physician History of Present Illness: PULMONARY MORE ALERT,ON VENT SUPPORT AC MODE, -RESP DISTRESS - Current Medication List Current Medications: Active Medications Acetaminophen (Ofirmev Injection -) 1,000 mg IVPB Q6H PRN PRN Reason: FEVER Albuterol Sulfate (Ventolin 0.083% Nebulizer Soln -) 1 amp NEB Q4H PRN PRN Reason: SHORT OF BREATH/WHEEZING Albuterol/Ipratropium (Duoneb -) 1 amp NEB RQID [facility] Apixaban (Eliquis -) 2.5 mg PO BID [facility] Last Admin: 11/24/17 10:56 Dose: Not Given Atorvastatin Calcium (Lipitor -) 10 mg PO HS [facility] Last Admin: 11/23/17 21:44 Dose: Not Given Docusate Sodium (Colace -) 300 mg PO HS [facility] Last Admin: 11/23/17 21:44 Dose: Not Given Ferrous Sulfate (Feosol -) 325 mg PO BID [facility] Last Admin: 11/24/17 10:56 Dose: Not Given Tobramycin Sulfate 100 mg/ (Sodium Chloride) 102.5 mls @ 102.5 mls/hr IVPB DAILY [facility] Cefepime HCl 2 gm/ Dextrose 100 mls @ 200 mls/hr IVPB BID@0800,2000 [facility] PRN Reason: Protocol Last Admin: 11/24/17 07:41 Dose: 200 mls/hr Amino Acids (Clinimix -) 1,000 mls @ 84 mls/hr IV Q12H [facility] Lactobacillus Acidophilus (Bacid -) 1 tab PO DAILY [facility] Last Admin: 11/24/17 10:56 Dose: Not Given Lorazepam (Ativan Injection -) 1 mg IVPUSH Q4H PRN PRN Reason: Seizure Metoprolol Tartrate (Lopressor -) 12.5 mg PO BID [facility] Last Admin: 11/24/17 10:56 Dose: Not Given Mirtazapine (Remeron -) 15 mg PO HS [facility] Last Admin: 11/23/17 21:45 Dose: Not Given Multivitamins/Minerals/Vitamin C (Tab-A-Vit -) 1 tab PO DAILY [facility] Last Admin: 11/24/17 10:56 Dose: Not Given Neomycin/Polymyxin/Hydrocortisone (Cortisporin Otic Suspenstion -) 1 drop AD TID [facility] Last Admin: 11/24/17 06:17 Dose: 1 drop - Objective Vital Signs: Vital Signs Temperature 98.8 F 11/24/17 10:59 Pulse Rate 63 11/24/17 10:59 Respiratory Rate 14 11/24/17 11:13 Blood Pressure 105/54 11/24/17 10:59 O2 Sat by Pulse Oximetry (%) 98 11/24/17 11:12 Constitutional: Yes: Calm, Thin Eyes: Yes: WNL HENT: Yes: WNL Cardiovascular: Yes: Pulse Irregular, S1, S2 Respiratory: Yes: Rhonchi (SCATTERED JASMYN RHONCHI) Gastrointestinal: Yes: Normal Bowel Sounds, Soft Extremities: Yes: WNL Edema: No Labs: CBC, BMP 11/24/17 07:25 11/24/17 07:25 INR, PTT INR 1.25 (0.82-1.09) H 11/22/17 18:00 Problem List - Problems (1) Seizure Code(s): R56.9 - UNSPECIFIED CONVULSIONS (2) AICD (automatic cardioverter/defibrillator) present Code(s): Z95.810 - PRESENCE OF AUTOMATIC (IMPLANTABLE) CARDIAC DEFIBRILLATOR (3) Acute and chronic respiratory failure with hypercapnia Code(s): J96.22 - ACUTE AND CHRONIC RESPIRATORY FAILURE WITH HYPERCAPNIA (4) Altered mental status Code(s): R41.82 - ALTERED MENTAL STATUS, UNSPECIFIED (5) COPD (chronic obstructive pulmonary disease) Code(s): J44.9 - CHRONIC OBSTRUCTIVE PULMONARY DISEASE, UNSPECIFIED (6) Chronic respiratory failure Code(s): J96.10 - CHRONIC RESPIRATORY FAILURE, UNSP W HYPOXIA OR HYPERCAPNIA (7) Pneumonia Code(s): J18.9 - PNEUMONIA, UNSPECIFIED ORGANISM Qualifiers: Pneumonia type: due to unspecified organism Laterality: left Lung location: lower lobe of lung Qualified Code(s): J18.1 - Lobar pneumonia, unspecified organism (8) Respirator dependence Code(s): Z99.11 - DEPENDENCE ON RESPIRATOR [VENTILATOR] STATUS Assessment/Plan IMP: S/P Seizure (?) CVA AMS (?) PNA : patient with chronic Left sided changes UTI Chronic Respiratory Failure End stage COPD CAD AFib AICD Recurrent UTI, PLAN: ABX per ID AC Mode of vent Seizure precautions AEDs DNR/DNI DR CABRERA
[2017-11-24] MEDS: SODIUM CHLORIDE IVPB SCH (13:18)
[2017-11-24] MEDS: TOBRAMYCIN SULFATE IVPB SCH (13:18)
[2017-11-24] MEDS: ALBUTEROL SO4 2.5/IPRATROPIUM 0.5 INH SOL 3 ML VIAL.NEB. NEB SCH ×3 (15:12→19:40)
[2017-11-24] MEDS: AMINO ACIDS 4.25%/D5W 1,000 ML IV SCH (16:16)
[2017-11-24] MEDS: DOCUSATE SODIUM 100 MG CAPSULE (FP) PO SCH (21:15)
[2017-11-24] MEDS: ATORVASTATIN CA 10 MG TABLET (FP) PO SCH (21:16)
[2017-11-24] MEDS: MIRTAZAPINE 15 MG TABLET (FP) PO SCH (21:16)
[2017-11-25] MEDS: AMINO ACIDS 4.25%/D5W 1,000 ML IV SCH ×5 (00:20→21:36)
[2017-11-25] MEDS: NEOMYCIN/POLYMYXN/HC OTIC SUSPENSION 10 ML BOTTLE AD SCH ×3 (05:58→21:46)
[2017-11-25 07:09] LABS: BASO % 0.9 % (0-2.0); EOS % 7.5 % (0-4.5); HEMATOCRIT 32.7 % (32.4-45.2); HEMOGLOBIN 10.8 GM/dL (10.7-15.3); LYMPH % 15.5 % (8-40); MCH 28.9 pg (25.7-33.7); MEAN CELL VOLUME 87.5 fl (80-96); MEAN PLT VOLUME 9.3 fl (7.5-11.1); MONO % 10.2 % (3.8-10.2); NEUT % 65.9 % (42.8-82.8); PLATELET COUNT 139 K/MM3 (134-434); RBC 3.74 M/mm3 (3.60-5.2); RDW 14.8 % (11.6-15.6); WHITE BLOOD COUNT 6.6 K/mm3 (4.0-10.0)
[2017-11-25 07:21] LABS: ALBUMIN 2.8 g/dl (3.4-5.0); ANION GAP 9 (8-16); BLOOD UREA NITROGEN 32 mg/dL (7-18); CALCIUM 8.4 mg/dL (8.5-10.1); CHLORIDE 105 mmol/L (98-107); CO2 25 mmol/L (21-32); CREATININE 0.6 mg/dL (0.55-1.02); GLUCOSE,RANDOM 96 mg/dL (74-106); POTASSIUM 3.4 mmol/L (3.5-5.1); SGOT/AST 17 U/L (15-37); SGPT/ALT 17 U/L (12-78); SODIUM 139 mmol/L (136-145)
[2017-11-25 07:24] LABS: ALK PHOS 75 U/L (45-117); BILIRUBIN,TOTAL 0.4 mg/dL (0.2-1.0); TOT PROT 6.7 g/dl (6.4-8.2)
[2017-11-25] MEDS: ALBUTEROL SO4 2.5/IPRATROPIUM 0.5 INH SOL 3 ML VIAL.NEB. NEB SCH ×4 (07:25→20:12)
[2017-11-25] MEDS ORDERED: PT OWN MED DRAWER 7, Y5N ONE (08:05)
[2017-11-25] MEDS: CEFEPIME 2 GM in DEXTROSE 5%-WATER 100 ML IVPB SCH ×2 (08:09→20:39)
[2017-11-25] MEDS: SODIUM CHLORIDE IVPB SCH (09:33)
[2017-11-25] MEDS: TOBRAMYCIN SULFATE IVPB SCH (09:33)
[2017-11-25] MEDS: METOPROLOL TARTRATE 25 MG TABLET (FP) PO SCH ×2 (09:34→21:46)
[2017-11-25] MEDS: FERROUS SO4 325 MG TABLET (FP) PO SCH ×2 (09:34→21:47)
[2017-11-25] MEDS: APIXABAN 2.5 MG TABLET PO SCH ×2 (09:34→21:46)
[2017-11-25] MEDS: LACTOBACILLUS ACIDOPHILUS 1 TABLET PO SCH (09:34)
[2017-11-25] MEDS: MULTIVITAMINS (DAILY MVI) TABLET (FP) PO SCH (09:34)
--- NOTE | 2017-11-25 12:02 | PN ---
Progress Note, Physician - Current Medication List Current Medications: Active Medications Acetaminophen (Ofirmev Injection -) 1,000 mg IVPB Q6H PRN PRN Reason: FEVER Albuterol Sulfate (Ventolin 0.083% Nebulizer Soln -) 1 amp NEB Q4H PRN PRN Reason: SHORT OF BREATH/WHEEZING Albuterol/Ipratropium (Duoneb -) 1 amp NEB RQID [facility] Last Admin: 11/25/17 11:37 Dose: 1 amp Apixaban (Eliquis -) 2.5 mg PO BID [facility] Last Admin: 11/25/17 09:34 Dose: Not Given Atorvastatin Calcium (Lipitor -) 10 mg PO [facility] Last Admin: 11/24/17 21:16 Dose: Not Given Docusate Sodium (Colace -) 300 mg PO HS [facility] Last Admin: 11/24/17 21:15 Dose: Not Given Ferrous Sulfate (Feosol -) 325 mg PO BID [facility] Last Admin: 11/25/17 09:34 Dose: Not Given Tobramycin Sulfate 100 mg/ (Sodium Chloride) 102.5 mls @ 102.5 mls/hr IVPB DAILY [facility] Last Admin: 11/25/17 09:33 Dose: 102.5 mls/hr Cefepime HCl 2 gm/ Dextrose 100 mls @ 200 mls/hr IVPB BID@0800,2000 [facility] PRN Reason: Protocol Last Admin: 11/25/17 08:09 Dose: 200 mls/hr Amino Acids (Clinimix -) 1,000 mls @ 84 mls/hr IV Q11H [facility] Last Admin: 11/25/17 04:16 Dose: 84 mls/hr Lactobacillus Acidophilus (Bacid -) 1 tab PO DAILY [facility] Last Admin: 11/25/17 09:34 Dose: Not Given Lorazepam (Ativan Injection -) 1 mg IVPUSH Q4H PRN PRN Reason: Seizure Metoprolol Tartrate (Lopressor -) 12.5 mg PO BID [facility] Last Admin: 11/25/17 09:34 Dose: Not Given Mirtazapine (Remeron -) 15 mg PO [facility] Last Admin: 11/24/17 21:16 Dose: Not Given Multivitamins/Minerals/Vitamin C (Tab-A-Vit -) 1 tab PO DAILY [facility] Last Admin: 11/25/17 09:34 Dose: Not Given Neomycin/Polymyxin/Hydrocortisone (Cortisporin Otic Suspenstion -) 1 drop AD TID [facility] Last Admin: 11/25/17 05:58 Dose: 1 drop - Objective Vital Signs: Vital Signs Temperature 98 F 11/25/17 09:39 Pulse Rate 65 11/25/17 09:39 Respiratory Rate 14 11/25/17 11:35 Blood Pressure 110/65 11/25/17 09:39 O2 Sat by Pulse Oximetry (%) 97 11/25/17 11:35 Cardiovascular: Yes: S1, S2 Respiratory: Yes: Mechanically Ventilated Gastrointestinal: Yes: Normal Bowel Sounds, Soft Labs: CBC, BMP 11/25/17 06:40 11/25/17 06:40 INR, PTT INR 1.25 (0.82-1.09) H 11/22/17 18:00 Problem List - Problems (1) Sepsis Assessment/Plan: ID #severe sepsis -etiology 2/2 UTI -no leukocytosis, no fever -ID on board, appreciate recs -continue cefepime and tobramycin -f/u Bcx, Ucx -lactic acidosis of 4.3 repeat 1.2 -trend temps and wbc counts -APAP for fever -clinimex -electrolytes wnl -NPO Code(s): A41.9 - SEPSIS, UNSPECIFIED ORGANISM (2) Seizure Assessment/Plan: -possibly 2/2 meropenem administration -neuro on board, appreciate recs -CT head showed no acute pathology Code(s): R56.9 - UNSPECIFIED CONVULSIONS (3) Chronic respiratory failure Assessment/Plan: -pt on trach/vent -albuterol nebs PRN Code(s): J96.10 - CHRONIC RESPIRATORY FAILURE, UNSP W HYPOXIA OR HYPERCAPNIA
--- NOTE | 2017-11-25 13:19 | PN ---
Progress Note, Physician History of Present Illness: PULMONARY MORE AWAKE ON VENT SUPPORT AC MODE - Current Medication List Current Medications: Active Medications Acetaminophen (Ofirmev Injection -) 1,000 mg IVPB Q6H PRN PRN Reason: FEVER Albuterol Sulfate (Ventolin 0.083% Nebulizer Soln -) 1 amp NEB Q4H PRN PRN Reason: SHORT OF BREATH/WHEEZING Albuterol/Ipratropium (Duoneb -) 1 amp NEB RQID [facility] Last Admin: 11/25/17 11:37 Dose: 1 amp Apixaban (Eliquis -) 2.5 mg PO BID [facility] Last Admin: 11/25/17 09:34 Dose: Not Given Atorvastatin Calcium (Lipitor -) 10 mg PO [facility] Last Admin: 11/24/17 21:16 Dose: Not Given Docusate Sodium (Colace -) 300 mg PO HS [facility] Last Admin: 11/24/17 21:15 Dose: Not Given Ferrous Sulfate (Feosol -) 325 mg PO BID [facility] Last Admin: 11/25/17 09:34 Dose: Not Given Tobramycin Sulfate 100 mg/ (Sodium Chloride) 102.5 mls @ 102.5 mls/hr IVPB DAILY [facility] Last Admin: 11/25/17 09:33 Dose: 102.5 mls/hr Cefepime HCl 2 gm/ Dextrose 100 mls @ 200 mls/hr IVPB BID@0800,2000 [facility] PRN Reason: Protocol Last Admin: 11/25/17 08:09 Dose: 200 mls/hr Amino Acids (Clinimix -) 1,000 mls @ 84 mls/hr IV Q11H [facility] Last Admin: 11/25/17 12:21 Dose: Not Given Lactobacillus Acidophilus (Bacid -) 1 tab PO DAILY [facility] Last Admin: 11/25/17 09:34 Dose: Not Given Lorazepam (Ativan Injection -) 1 mg IVPUSH Q4H PRN PRN Reason: Seizure Metoprolol Tartrate (Lopressor -) 12.5 mg PO BID [facility] Last Admin: 11/25/17 09:34 Dose: Not Given Mirtazapine (Remeron -) 15 mg PO [facility] Last Admin: 11/24/17 21:16 Dose: Not Given Multivitamins/Minerals/Vitamin C (Tab-A-Vit -) 1 tab PO DAILY [facility] Last Admin: 11/25/17 09:34 Dose: Not Given Neomycin/Polymyxin/Hydrocortisone (Cortisporin Otic Suspenstion -) 1 drop AD TID [facility] Last Admin: 11/25/17 05:58 Dose: 1 drop - Objective Vital Signs: Vital Signs Temperature 98 F 11/25/17 09:39 Pulse Rate 65 11/25/17 09:39 Respiratory Rate 14 11/25/17 11:35 Blood Pressure 110/65 11/25/17 09:39 O2 Sat by Pulse Oximetry (%) 97 11/25/17 11:35 Constitutional: Yes: Calm, Thin Eyes: Yes: WNL HENT: Yes: WNL Neck: Yes: Supple (TRACH) Cardiovascular: Yes: Pulse Irregular, S1, S2 Respiratory: Yes: Rhonchi (SCATTERED JASMYN RHONCHI) Gastrointestinal: Yes: Normal Bowel Sounds, Soft Extremities: Yes: WNL Edema: No Labs: CBC, BMP 11/25/17 06:40 11/25/17 06:40 INR, PTT INR 1.25 (0.82-1.09) H 11/22/17 18:00 Problem List - Problems (1) Seizure Code(s): R56.9 - UNSPECIFIED CONVULSIONS (2) AICD (automatic cardioverter/defibrillator) present Code(s): Z95.810 - PRESENCE OF AUTOMATIC (IMPLANTABLE) CARDIAC DEFIBRILLATOR (3) Acute and chronic respiratory failure with hypercapnia Code(s): J96.22 - ACUTE AND CHRONIC RESPIRATORY FAILURE WITH HYPERCAPNIA (4) Altered mental status Code(s): R41.82 - ALTERED MENTAL STATUS, UNSPECIFIED (5) COPD (chronic obstructive pulmonary disease) Code(s): J44.9 - CHRONIC OBSTRUCTIVE PULMONARY DISEASE, UNSPECIFIED (6) Chronic respiratory failure Code(s): J96.10 - CHRONIC RESPIRATORY FAILURE, UNSP W HYPOXIA OR HYPERCAPNIA (7) Pneumonia Code(s): J18.9 - PNEUMONIA, UNSPECIFIED ORGANISM Qualifiers: Pneumonia type: due to unspecified organism Laterality: left Lung location: lower lobe of lung Qualified Code(s): J18.1 - Lobar pneumonia, unspecified organism (8) Respirator dependence Code(s): Z99.11 - DEPENDENCE ON RESPIRATOR [VENTILATOR] STATUS Assessment/Plan IMP: S/P Seizure (?) CVA AMS (?) PNA : patient with chronic Left sided changes UTI Chronic Respiratory Failure End stage COPD CAD AFib AICD Recurrent UTI, PLAN: ABX per ID AC Mode of vent Seizure precautions AEDs DNR/DNI DR CABRERA
[2017-11-25] MEDS ORDERED: KCL 10 MEQ IVPB 10 MEQ/100 ML INFUS.BAG IVPB SCH (21:15)
[2017-11-25] MEDS ORDERED: SODIUM CHLORIDE IVPB ONE (21:30)
[2017-11-25] MEDS ORDERED: POTASSIUM CHLORIDE IVPB ONE (21:30)
[2017-11-25] MEDS: DOCUSATE SODIUM 100 MG CAPSULE (FP) PO SCH (21:46)
[2017-11-25] MEDS: MIRTAZAPINE 15 MG TABLET (FP) PO SCH (21:46)
[2017-11-25] MEDS: ATORVASTATIN CA 10 MG TABLET (FP) PO SCH (21:46)
[2017-11-26] MEDS: NEOMYCIN/POLYMYXN/HC OTIC SUSPENSION 10 ML BOTTLE AD SCH ×3 (05:53→21:49)
[2017-11-26 06:46] LABS: BASO % 0.6 % (0-2.0); EOS % 6.9 % (0-4.5); HEMATOCRIT 32.5 % (32.4-45.2); HEMOGLOBIN 10.9 GM/dL (10.7-15.3); LYMPH % 14.9 % (8-40); MCHC 33.4 g/dl (32.0-36.0); MEAN CELL VOLUME 86.8 fl (80-96); MEAN PLT VOLUME 9.2 fl (7.5-11.1); MONO % 8.9 % (3.8-10.2); NEUT % 68.7 % (42.8-82.8); PLATELET COUNT 134 K/MM3 (134-434); RBC 3.74 M/mm3 (3.60-5.2); RDW 14.9 % (11.6-15.6); WHITE BLOOD COUNT 6.1 K/mm3 (4.0-10.0)
[2017-11-26 07:06] LABS: ALBUMIN 2.8 g/dl (3.4-5.0); ANION GAP 8 (8-16); BILIRUBIN,TOTAL 0.3 mg/dL (0.2-1.0); BLOOD UREA NITROGEN 22 mg/dL (7-18); CALCIUM 8.6 mg/dL (8.5-10.1); CHLORIDE 110 mmol/L (98-107); CO2 27 mmol/L (21-32); CREATININE 0.5 mg/dL (0.55-1.02); GLUCOSE,RANDOM 97 mg/dL (74-106); POTASSIUM 3.5 mmol/L (3.5-5.1); SGOT/AST 11 U/L (15-37); SGPT/ALT 15 U/L (12-78); SODIUM 145 mmol/L (136-145); TOT PROT 6.4 g/dl (6.4-8.2)
[2017-11-26 07:07] LABS: ALK PHOS 67 U/L (45-117)
[2017-11-26] MEDS: ALBUTEROL SO4 2.5/IPRATROPIUM 0.5 INH SOL 3 ML VIAL.NEB. NEB SCH ×4 (07:30→20:40)
--- NOTE | 2017-11-26 08:35 | PN ---
Progress Note, Physician History of Present Illness: 82F w/ hx of end stage COPD (trach/vented), heart disease, a-fib on eliquis wiht AICD, recurrent UTI who presented from ID with low temp and possible aspiration, found to have + UA, was given meropenem and subsequently developed a tonic clonic seizure, admitted to ICU now improved on 5 south - Current Medication List Current Medications: Active Medications Acetaminophen (Ofirmev Injection -) 1,000 mg IVPB Q6H PRN PRN Reason: FEVER Albuterol Sulfate (Ventolin 0.083% Nebulizer Soln -) 1 amp NEB Q4H PRN PRN Reason: SHORT OF BREATH/WHEEZING Albuterol/Ipratropium (Duoneb -) 1 amp NEB RQID [facility] Last Admin: 11/26/17 07:30 Dose: 1 amp Apixaban (Eliquis -) 2.5 mg PO BID [facility] Last Admin: 11/25/17 21:46 Dose: 2.5 mg Atorvastatin Calcium (Lipitor -) 10 mg PO HS [facility] Last Admin: 11/25/17 21:46 Dose: 10 mg Docusate Sodium (Colace -) 300 mg PO HS [facility] Last Admin: 11/25/17 21:46 Dose: 300 mg Ferrous Sulfate (Feosol -) 325 mg PO BID [facility] Last Admin: 11/25/17 21:47 Dose: Not Given Tobramycin Sulfate 100 mg/ (Sodium Chloride) 102.5 mls @ 102.5 mls/hr IVPB DAILY [facility] Last Admin: 11/25/17 09:33 Dose: 102.5 mls/hr Cefepime HCl 2 gm/ Dextrose 100 mls @ 200 mls/hr IVPB BID@0800,2000 [facility] PRN Reason: Protocol Last Admin: 11/25/17 20:39 Dose: 200 mls/hr Amino Acids (Clinimix -) 1,000 mls @ 84 mls/hr IV Q11H [facility] Last Admin: 11/25/17 21:36 Dose: Not Given Lactobacillus Acidophilus (Bacid -) 1 tab PO DAILY [facility] Last Admin: 11/25/17 09:34 Dose: Not Given Lorazepam (Ativan Injection -) 1 mg IVPUSH Q4H PRN PRN Reason: Seizure Metoprolol Tartrate (Lopressor -) 12.5 mg PO BID [facility] Last Admin: 11/25/17 21:46 Dose: 12.5 mg Mirtazapine (Remeron -) 15 mg PO HS [facility] Last Admin: 11/25/17 21:46 Dose: 15 mg Multivitamins/Minerals/Vitamin C (Tab-A-Vit -) 1 tab PO DAILY [facility] Last Admin: 11/25/17 09:34 Dose: Not Given Neomycin/Polymyxin/Hydrocortisone (Cortisporin Otic Suspenstion -) 1 drop AD TID [facility] Last Admin: 11/26/17 05:53 Dose: 1 drop - Objective Vital Signs: Vital Signs Temperature 98.1 F 11/26/17 05:15 Pulse Rate 57 L 11/26/17 08:20 Respiratory Rate 14 11/26/17 08:20 Blood Pressure 149/80 11/26/17 05:15 O2 Sat by Pulse Oximetry (%) 97 11/26/17 08:20 Cardiovascular: Yes: S1, S2 Respiratory: Yes: Mechanically Ventilated Gastrointestinal: Yes: Normal Bowel Sounds, Soft Labs: CBC, BMP 11/26/17 06:12 11/26/17 06:12 INR, PTT INR 1.25 (0.82-1.09) H 11/22/17 18:00 Problem List - Problems (1) Sepsis Assessment/Plan: ID -etiology 2/2 UTI--ESBL -no leukocytosis, no fever -ID on board, appreciate recs--ID FOLLOW UP -continue cefepime and tobramycin -lactic acidosis of 4.3 repeat 1.2 -trend temps and wbc counts--NL -APAP for fever -clinimex -electrolytes wnl -NPO--AWAIT SWALLOW EVAL Code(s): A41.9 - SEPSIS, UNSPECIFIED ORGANISM (2) Seizure Assessment/Plan: -possibly 2/2 meropenem administration -neuro on board, appreciate recs -CT head showed no acute pathology Code(s): R56.9 - UNSPECIFIED CONVULSIONS (3) Chronic respiratory failure Assessment/Plan: -pt on trach/vent -albuterol nebs PRN Code(s): J96.10 - CHRONIC RESPIRATORY FAILURE, UNSP W HYPOXIA OR HYPERCAPNIA
[2017-11-26] MEDS ORDERED: PT OWN MED DRAWER 7, Y5N ONE ×4 (08:37→21:41)
[2017-11-26] MEDS: CEFEPIME 2 GM in DEXTROSE 5%-WATER 100 ML IVPB SCH ×2 (08:50→20:03)
[2017-11-26] MEDS: AMINO ACIDS 4.25%/D5W 1,000 ML IV SCH (10:19)
[2017-11-26] MEDS: SODIUM CHLORIDE IVPB SCH (10:22)
[2017-11-26] MEDS: TOBRAMYCIN SULFATE IVPB SCH (10:22)
[2017-11-26] MEDS: LACTOBACILLUS ACIDOPHILUS 1 TABLET PO SCH (10:23)
[2017-11-26] MEDS: MULTIVITAMINS (DAILY MVI) TABLET (FP) PO SCH (10:23)
[2017-11-26] MEDS: APIXABAN 2.5 MG TABLET PO SCH ×2 (10:24→21:47)
[2017-11-26] MEDS: FERROUS SO4 325 MG TABLET (FP) PO SCH ×2 (10:24→21:48)
[2017-11-26] MEDS: METOPROLOL TARTRATE 25 MG TABLET (FP) PO SCH ×2 (10:26→21:47)
[2017-11-26 12:56] VITALS: BMI 23.9
--- NOTE | 2017-11-26 13:45 | PN ---
Progress Note, Physician History of Present Illness: PULMONARY AWAKE ALERT ON VENT SUPPORT AC MODE,-RESP DISTRESS - Current Medication List Current Medications: Active Medications Albuterol Sulfate (Ventolin 0.083% Nebulizer Soln -) 1 amp NEB Q4H PRN PRN Reason: SHORT OF BREATH/WHEEZING Albuterol/Ipratropium (Duoneb -) 1 amp NEB RQID [facility] Last Admin: 11/26/17 11:38 Dose: 1 amp Apixaban (Eliquis -) 2.5 mg PO BID [facility] Last Admin: 11/26/17 10:24 Dose: 2.5 mg Atorvastatin Calcium (Lipitor -) 10 mg PO [facility] Last Admin: 11/25/17 21:46 Dose: 10 mg Docusate Sodium (Colace -) 300 mg PO HS [facility] Last Admin: 11/25/17 21:46 Dose: 300 mg Ferrous Sulfate (Feosol -) 325 mg PO BID [facility] Last Admin: 11/26/17 10:24 Dose: Not Given Tobramycin Sulfate 100 mg/ (Sodium Chloride) 102.5 mls @ 102.5 mls/hr IVPB DAILY [facility] Last Admin: 11/26/17 10:22 Dose: 102.5 mls/hr Cefepime HCl 2 gm/ Dextrose 100 mls @ 200 mls/hr IVPB BID@0800,2000 [facility] PRN Reason: Protocol Last Admin: 11/26/17 08:50 Dose: 200 mls/hr Amino Acids (Clinimix -) 1,000 mls @ 84 mls/hr IV Q11H [facility] Last Admin: 11/26/17 10:19 Dose: Not Given Lactobacillus Acidophilus (Bacid -) 1 tab PO DAILY [facility] Last Admin: 11/26/17 10:23 Dose: 1 tab Metoprolol Tartrate (Lopressor -) 12.5 mg PO BID [facility] Last Admin: 11/26/17 10:26 Dose: 12.5 mg Mirtazapine (Remeron -) 15 mg PO [facility] Last Admin: 11/25/17 21:46 Dose: 15 mg Multivitamins/Minerals/Vitamin C (Tab-A-Vit -) 1 tab PO DAILY [facility] Last Admin: 11/26/17 10:23 Dose: 1 tab Neomycin/Polymyxin/Hydrocortisone (Cortisporin Otic Suspenstion -) 1 drop AD TID [facility] Last Admin: 11/26/17 05:53 Dose: 1 drop - Objective Vital Signs: Vital Signs Temperature 98.6 F 11/26/17 13:10 Pulse Rate 54 L 11/26/17 13:10 Respiratory Rate 14 11/26/17 13:10 Blood Pressure 112/55 11/26/17 13:10 O2 Sat by Pulse Oximetry (%) 97 11/26/17 11:35 Constitutional: Yes: Calm, Thin Eyes: Yes: WNL HENT: Yes: WNL Neck: Yes: Supple (TRACH) Cardiovascular: Yes: Pulse Irregular, S1, S2 Respiratory: Yes: Rhonchi (SCATTERED JASMYN RHONCHI) Gastrointestinal: Yes: Normal Bowel Sounds, Soft Extremities: Yes: WNL Edema: No Labs: CBC, BMP 11/26/17 06:12 11/26/17 06:12 INR, PTT INR 1.25 (0.82-1.09) H 11/22/17 18:00 Problem List - Problems (1) Seizure Code(s): R56.9 - UNSPECIFIED CONVULSIONS (2) AICD (automatic cardioverter/defibrillator) present Code(s): Z95.810 - PRESENCE OF AUTOMATIC (IMPLANTABLE) CARDIAC DEFIBRILLATOR (3) Acute and chronic respiratory failure with hypercapnia Code(s): J96.22 - ACUTE AND CHRONIC RESPIRATORY FAILURE WITH HYPERCAPNIA (4) Altered mental status Code(s): R41.82 - ALTERED MENTAL STATUS, UNSPECIFIED (5) COPD (chronic obstructive pulmonary disease) Code(s): J44.9 - CHRONIC OBSTRUCTIVE PULMONARY DISEASE, UNSPECIFIED (6) Chronic respiratory failure Code(s): J96.10 - CHRONIC RESPIRATORY FAILURE, UNSP W HYPOXIA OR HYPERCAPNIA (7) Pneumonia Code(s): J18.9 - PNEUMONIA, UNSPECIFIED ORGANISM Qualifiers: Pneumonia type: due to unspecified organism Laterality: left Lung location: lower lobe of lung Qualified Code(s): J18.1 - Lobar pneumonia, unspecified organism (8) Respirator dependence Code(s): Z99.11 - DEPENDENCE ON RESPIRATOR [VENTILATOR] STATUS Assessment/Plan IMP: S/P Seizure (?) CVA AMS (?) PNA : patient with chronic Left sided changes UTI Chronic Respiratory Failure End stage COPD CAD AFib AICD Recurrent UTI, PLAN: ABX per ID AC Mode of vent Seizure precautions AEDs DNR/DNI Swallowing evaluation DR CABRERA
--- NOTE | 2017-11-26 16:43 | CONSULT ---
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: CVA, Dementia, Parkinson's Cardiovascular: Yes: AFIB (Paroxysmal), CHF, HTN, Hyperlipdemia, Other (h/o cardiac arrest s/p AICD - Single lead) Pulmonary: Yes: COPD, Other (respiratory failure) Gastrointestinal: Yes: GERD ...: No Heme/Onc: Yes: Anemia - Past Surgical History Past Surgical History: Yes: AICD ([employer], implanted following cardiac arrest) , Cataract Removal (2011) - Advance Directives Advance Directives: Yes: DNR - Smoking History Smoking history: Unknown if ever smoked Have you smoked in the past 12 months: No Aproximately how many cigarettes per day: 0 - Alcohol/Substance Use Hx Alcohol Use: No - Social History History of Recent Travel: No History - Admission Reason For Visit: HYPOTENSION SEIZURE EXCESSIVE SWEATING Speech Evaluation - Communication Primary Language: FIJIAN Communication: Yes: Simple Responses (reliable y/n response by shaking her head. ) Oral Expression Ability: Yes: Non-Vocal (secondary to vent dependant) - Speech Production Apraxia: No Able to Make Needs Known: Yes: Moderately Impaired (anarthria) Intelligibility: Yes: Severely Impaired (non vocal) - Speech Characteristics Voice Loudness: Limited Variation Voice Phonatory-based Quality: Yes: Loss of Voice Speech Pattern: Impaired Speech Clarity: < 100% (unless its a y/n question.) Articulation: Yes: Precise Voice Comment: pt is vent dependant with no voice - Language/Auditory Comprehension Follows: Yes: 1 Stage Simple Commands Observation: Able to respond to yes/no queries: Yes, Yes/No Confusion: No, Comprehends Conversational Speech: No (simple), Benefits from Slow Speech: Yes, Benefits from Repetiton: No, Benefits from Increased Volume of Speech: Yes (DIOMEDE) - Language/Verbal Expression Able to Communicate Wants and Needs: Yes: Severely Impaired Functional Communication Status: Yes: Moderately Impaired Aware of Errors: Yes Attempts to Correct Errors: Yes Use of Gestures: No Written Expression: not examined Oral Expression: no vocalizations. 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 Memory: Yes: Mildly Impaired Short Term Memory: Yes: WNL - Swallow Evaluation/Bedside Assessment Current Nutritional Intake: NPO (pending swallow evaluation.) Oral Secretions: Yes: Dryness Tracheostomy Present: Yes Patient on Ventilator: Yes Dentition: Yes: Edentulous (some space observed top and bottom jaw) Facial Symmetry at Rest: Symmetrical Facial Symmetry on Retraction: Symmetrical Facial Movement: Controlled Sensation: Normal Facial Comment: wfl for speech and swallow Jaw Position: Closed at Rest Against Resistance Opening: Normal Against Resistance Closing: Normal Pucker Lips: Normal Lips, Comment: WFL for swallow purposes Lingual Movement: Normal Lingual Speed of Movement: Reduced Lingual Movement Strgth Against Opposition: Normal Lingual Movement Characteristics: Normal Lingual Comment: WFL for swallowing purposes Soft Palate Description: Normal Color, Normal Arch Hard Palate Description: Normal Color, Normal Arch Gag Reflex: Weak Bite Reflex: Present Velopharyngeal Movement: Normal Laryngeal Elevation: WFL Laryngeal Movement: Able to Palpate Needs Assistance: Yes Rate of Intake: WFL Bolus Size: WFL Sensation: Bite Reflex Labial Seal: WFL Chewing: WFL Oral Prep Time: WFL A-P Transit: WFL Pocketing: None Odynophagia: Pharyngeal (mild) Coughing/Throat Clear: No Change in Voice: No Other Findings/Remarks: 82 yo female seen at bedside for swallow eval to rule out dysphagia. Pt is vent dependant A&Ox2, cooperative. CC: hypothermia. MHX includes: end stage COPD, UTI, sepsis szd, and CRF. Pt presents with anarthria but reliable Y/N response. Current diet NPO. Reduce airway protection secondary to trach/vent. Pt given po trials of puree only with full assistance revealed good acceptance, adequate bolus control and transport. Pharyngeal swallow is slightly delayed 2- 3 seconds average with no changes in respirations and residue in trach. Pt given po trials of thicken water with total assistance revealed evealed good acceptance, adequate bolus control and transport. Pharyngeal swallow is slightly delayed 2-3 seconds average with no changes in respirations and residue in trach. Recommendations - Speech Evaluation, Impression/Plan Impression: Pt is able to tolerate purees and thicken liquids without s/s of aspiration at this time. Trial feedings appears favorable. Recommended Therapies: Speech (Pt may be able to use an augmentative communication device.) Tower Control Operator Goals: tolerate pureed and thicken liquids without s/s of aspiration Short Term Goals: tolerate pureed and necatr thicken liquids without s/s of aspiration - Dysphagia Impressions/Plan Swallowing Skills: Impaired Dysphagia Impressions: Mild Impairment, Moderate Impairment, Risk of Aspiration , Suspect Aspiration *Silent aspiration: cannot be R/O at bedside Dysphagia Treatment Plan: Small Bites, Facilitative Feeding, Safe Rate, 1/2 tsp. at a time, Elevate HOB during feed, Other (Monitor pulmonary status and nutritional intake.) Dysphagia Evaluation Summary: Trial feeding of pureed solids with nectar thicken liquids via spoon as tolerated. Observe standard aspiration precautions. Crush meds in applesauce. Results given verbally to rn discharge and to pcp via chart. EMERGENCY ROOM TECHNICIAN to follow up for diet tolerance. - Recommendations Diet Consistency: Dysphagia Pureed (trial as tolerated) Medication Administration: Crushed with applesauce Liquids: [place] Thick (trial)
--- NOTE | 2017-11-26 16:44 | PN ---
Progress Note, Physician History of Present Illness: Awake, alert on ventilator No acute distress Afebrile WBC WNL - Current Medication List Current Medications: Active Medications Albuterol Sulfate (Ventolin 0.083% Nebulizer Soln -) 1 amp NEB Q4H PRN PRN Reason: SHORT OF BREATH/WHEEZING Albuterol/Ipratropium (Duoneb -) 1 amp NEB RQID [facility] Last Admin: 11/26/17 15:36 Dose: 1 amp Apixaban (Eliquis -) 2.5 mg PO BID [facility] Last Admin: 11/26/17 10:24 Dose: 2.5 mg Atorvastatin Calcium (Lipitor -) [address] [facility] Last Admin: 11/25/17 21:46 Dose: 10 mg Docusate Sodium (Colace -) 300 mg PO HS [facility] Last Admin: 11/25/17 21:46 Dose: 300 mg Ferrous Sulfate (Feosol -) 325 mg PO BID [facility] Last Admin: 11/26/17 10:24 Dose: Not Given Tobramycin Sulfate 100 mg/ (Sodium Chloride) 102.5 mls @ 102.5 mls/hr IVPB DAILY [facility] Last Admin: 11/26/17 10:22 Dose: 102.5 mls/hr Cefepime HCl 2 gm/ Dextrose 100 mls @ 200 mls/hr IVPB BID@0800,2000 [facility] PRN Reason: Protocol Last Admin: 11/26/17 08:50 Dose: 200 mls/hr Amino Acids (Clinimix -) 1,000 mls @ 84 mls/hr IV Q11H [facility] Last Admin: 11/26/17 10:19 Dose: Not Given Lactobacillus Acidophilus (Bacid -) 1 tab PO DAILY [facility] Last Admin: 11/26/17 10:23 Dose: 1 tab Metoprolol Tartrate (Lopressor -) 12.5 mg PO BID [facility] Last Admin: 11/26/17 10:26 Dose: 12.5 mg Mirtazapine (Remeron -) 15 mg PO HS [facility] Last Admin: 11/25/17 21:46 Dose: 15 mg Multivitamins/Minerals/Vitamin C (Tab-A-Vit -) 1 tab PO DAILY [facility] Last Admin: 11/26/17 10:23 Dose: 1 tab Neomycin/Polymyxin/Hydrocortisone (Cortisporin Otic Suspenstion -) 1 drop AD TID [facility] Last Admin: 11/26/17 05:53 Dose: 1 drop - Objective Vital Signs: Vital Signs Temperature 98.6 F 11/26/17 13:10 Pulse Rate 54 L 11/26/17 13:10 Respiratory Rate 14 11/26/17 15:36 Blood Pressure 112/55 11/26/17 13:10 O2 Sat by Pulse Oximetry (%) 97 11/26/17 11:35 Constitutional: Yes: Cachectic Cardiovascular: Yes: Regular Rate and Rhythm, S1, S2 Respiratory: Yes: Diminished Gastrointestinal: Yes: Normal Bowel Sounds, Soft. No: Tenderness Edema: No Labs: CBC, BMP 11/26/17 06:12 11/26/17 06:12 INR, PTT INR 1.25 (0.82-1.09) H 11/22/17 18:00 Assessment/Plan Chronic respiratory failure Pneumonia ESBL UTI Possible carbapenem-induced seizure Continue cefepime D/C tobramycin Substitute levaquin Contact precautions
[2017-11-26] MEDS: MIRTAZAPINE 15 MG TABLET (FP) PO SCH (21:47)
[2017-11-26] MEDS: ATORVASTATIN CA 10 MG TABLET (FP) PO SCH (21:48)
[2017-11-26] MEDS: DOCUSATE SODIUM 100 MG CAPSULE (FP) PO SCH (21:48)
[2017-11-27] MEDS ORDERED: PT OWN MED DRAWER 7, Y5N ONE ×5 (05:39→22:49)
[2017-11-27] MEDS: NEOMYCIN/POLYMYXN/HC OTIC SUSPENSION 10 ML BOTTLE AD SCH ×4 (05:42→23:46)
[2017-11-27] MEDS: ALBUTEROL SO4 2.5/IPRATROPIUM 0.5 INH SOL 3 ML VIAL.NEB. NEB SCH ×4 (07:47→20:55)
[2017-11-27] MEDS: CEFEPIME 2 GM in DEXTROSE 5%-WATER 100 ML IVPB SCH ×2 (08:52→22:56)
[2017-11-27] MEDS: MULTIVITAMINS (DAILY MVI) TABLET (FP) PO SCH (10:50)
[2017-11-27] MEDS: METOPROLOL TARTRATE 25 MG TABLET (FP) PO SCH ×2 (10:50→22:57)
[2017-11-27] MEDS: LACTOBACILLUS ACIDOPHILUS 1 TABLET PO SCH (10:50)
[2017-11-27] MEDS: APIXABAN 2.5 MG TABLET PO SCH ×2 (10:51→23:43)
[2017-11-27] MEDS: FERROUS SO4 325 MG TABLET (FP) PO SCH ×2 (10:52→22:56)
--- NOTE | 2017-11-27 11:09 | PN ---
Progress Note, PLASTIC INSTALLER - Note Progress Note: Per EMR: 82yo F with PMHx of end stage COPD (s/p tracheostomy, vent dependent) and MDR- UTIs who was brought from [facility] due to hypothermia. She was found to be cold , clammy, and less responsive at around 12:30 today. Vital signs at [facility] were notable for hypothermia (recorded T of 96.4). She was evaluated by Dr Massey who recommended ER evaluation. Pt was suctioned and food aspirate was noted. No cough or difficulty breathing was reported. In the ER, she was afebrile. UA showed pyuria. Given a dose of Meropenem. 2 hrs later, patient began to have a tonic-clonic seizure lasting about 1-2 minutes. Resolved spontaneously. Given 1mg Ativan IV afterwards. Head CT shows possible R pareital infarct vs motion artifact. Pt was on puree and thin liquid at [place] with trach/vent? Food was suctioned from trach in ER. Known to me from previous admissions, at which time she had a trach/ vented intermittently. Started on puree and nectar thick liquid yesterday. Selected Entries 11/26/17 11/26/17 11/26/17 00:52 05:15 08:00 Supper Temperature 97.5 F L 98.1 F 98.4 F 11/26/17 11/26/17 11/26/17 13:10 17:41 19:00 Supper 50% Temperature 98.6 F 98.4 F 11/26/17 11/27/17 20:34 06:00 Supper Temperature 97.7 F 97.9 F 12/2016 PMV evaluation: Voice, Other Observations: Inadequate Breath Support (intermittent) - Assessment with PMV in Place O2 Sat by Pulse Oximetry (%): 100 Change in Mental Status with PMV in Place: No Able to Manage Secretions: Yes Length of time with PMV in place: 13 min Additional comments: Pt's voice varied signifificantly from dysphonia/hypophonia to euphonic with trach tubing support given. Pt has an #8 Portex which generally is too large for air to pass arounf the trach and reach the vocal cords. Additionally, pt's son reports that the pt used to "panic" when on PMV at [place]. I suspect this may be related to impaired ability to air around large trach. PMV is a 1 way valve, with inability to back through trach/vent, with cuff deflated, changing airflow up and out of her mouth. - Recommendations Recommendations: Monitor Pulse Ox PMV on, Supervision while PMV on, Other ( Careful use of PMV for short periods only. I suspect trach size ideally should be downsized for safe/comfortable use of PMV.) Pt has a size 8 trach at this time. Overtly tolerating puree and nectar thick liquid. Consider: Downsize trach?/PMV evaluation MBS
--- NOTE | 2017-11-27 12:35 | PN ---
Progress Note, Physician History of Present Illness: Awake, alert on ventilator No acute distress Denies pain Afebrile WBC WNL - Current Medication List Current Medications: Active Medications Albuterol Sulfate (Ventolin 0.083% Nebulizer Soln -) 1 amp NEB Q4H PRN PRN Reason: SHORT OF BREATH/WHEEZING Albuterol/Ipratropium (Duoneb -) 1 amp NEB RQID [facility] Last Admin: 11/27/17 12:04 Dose: 1 amp Apixaban (Eliquis -) 2.5 mg PO BID [facility] Last Admin: 11/27/17 10:51 Dose: 2.5 mg Atorvastatin Calcium (Lipitor -) 10 mg PO [facility] Last Admin: 11/26/17 21:48 Dose: 10 mg Docusate Sodium (Colace -) 300 mg PO HS [facility] Last Admin: 11/26/17 21:48 Dose: 300 mg Ferrous Sulfate (Feosol -) 325 mg PO BID [facility] Last Admin: 11/27/17 10:52 Dose: 325 mg Cefepime HCl 2 gm/ Dextrose 100 mls @ 200 mls/hr IVPB BID@0800,2000 [facility] PRN Reason: Protocol Last Admin: 11/27/17 08:52 Dose: 200 mls/hr Levofloxacin (Levaquin 250 Mg Premixed Ivpb -) 250 mg in 50 mls @ 50 mls/hr IVPB DAILY [facility] PRN Reason: Protocol Last Admin: 11/27/17 10:52 Dose: 50 mls/hr Lactobacillus Acidophilus (Bacid -) 1 tab PO DAILY [facility] Last Admin: 11/27/17 10:50 Dose: 1 tab Metoprolol Tartrate (Lopressor -) 12.5 mg PO BID [facility] Last Admin: 11/27/17 10:50 Dose: 12.5 mg Mirtazapine (Remeron -) 15 mg PO [facility] Last Admin: 11/26/17 21:47 Dose: 15 mg Multivitamins/Minerals/Vitamin C (Tab-A-Vit -) 1 tab PO DAILY [facility] Last Admin: 11/27/17 10:50 Dose: 1 tab Neomycin/Polymyxin/Hydrocortisone (Cortisporin Otic Suspenstion -) 1 drop AD TID [facility] Last Admin: 11/27/17 05:42 Dose: 1 drop - Objective Vital Signs: Vital Signs Temperature 97.4 F L 11/27/17 10:00 Pulse Rate 56 L 11/27/17 12:08 Respiratory Rate 15 11/27/17 10:00 Blood Pressure 104/47 11/27/17 10:00 O2 Sat by Pulse Oximetry (%) 99 11/27/17 12:08 Constitutional: Yes: No Distress, Cachectic Cardiovascular: Yes: Regular Rate and Rhythm, S1, S2 Respiratory: Yes: Diminished Gastrointestinal: Yes: Normal Bowel Sounds, Soft. No: Tenderness Edema: No Labs: CBC, BMP 11/26/17 06:12 11/26/17 06:12 INR, PTT INR 1.25 (0.82-1.09) H 11/22/17 18:00 Assessment/Plan Chronic respiratory failure Pneumonia ESBL UTI Possible carbapenem-induced seizure Continue cefepime / levaquin Contact precautions
--- NOTE | 2017-11-27 13:27 | PN ---
Progress Note, Physician History of Present Illness: pulmonary alert,no distress on vent support - Current Medication List Current Medications: Active Medications Albuterol Sulfate (Ventolin 0.083% Nebulizer Soln -) 1 amp NEB Q4H PRN PRN Reason: SHORT OF BREATH/WHEEZING Albuterol/Ipratropium (Duoneb -) 1 amp NEB RQID [facility] Last Admin: 11/27/17 12:04 Dose: 1 amp Apixaban (Eliquis -) 2.5 mg PO BID [facility] Last Admin: 11/27/17 10:51 Dose: 2.5 mg Atorvastatin Calcium (Lipitor -) 10 mg PO [facility] Last Admin: 11/26/17 21:48 Dose: 10 mg Docusate Sodium (Colace -) 300 mg PO [facility] Last Admin: 11/26/17 21:48 Dose: 300 mg Ferrous Sulfate (Feosol -) 325 mg PO BID [facility] Last Admin: 11/27/17 10:52 Dose: 325 mg Cefepime HCl 2 gm/ Dextrose 100 mls @ 200 mls/hr IVPB BID@0800,2000 [facility] PRN Reason: Protocol Last Admin: 11/27/17 08:52 Dose: 200 mls/hr Levofloxacin (Levaquin 250 Mg Premixed Ivpb -) 250 mg in 50 mls @ 50 mls/hr IVPB DAILY [facility] PRN Reason: Protocol Last Admin: 11/27/17 10:52 Dose: 50 mls/hr Lactobacillus Acidophilus (Bacid -) 1 tab PO DAILY [facility] Last Admin: 11/27/17 10:50 Dose: 1 tab Metoprolol Tartrate (Lopressor -) 12.5 mg PO BID [facility] Last Admin: 11/27/17 10:50 Dose: 12.5 mg Mirtazapine (Remeron -) 15 mg PO [facility] Last Admin: 11/26/17 21:47 Dose: 15 mg Multivitamins/Minerals/Vitamin C (Tab-A-Vit -) 1 tab PO DAILY [facility] Last Admin: 11/27/17 10:50 Dose: 1 tab Neomycin/Polymyxin/Hydrocortisone (Cortisporin Otic Suspenstion -) 1 drop AD TID [facility] Last Admin: 11/27/17 05:42 Dose: 1 drop - Objective Vital Signs: Vital Signs Temperature 97.4 F L 11/27/17 10:00 Pulse Rate 56 L 11/27/17 12:08 Respiratory Rate 15 11/27/17 10:00 Blood Pressure 104/47 11/27/17 10:00 O2 Sat by Pulse Oximetry (%) 99 11/27/17 12:08 Constitutional: Yes: Calm, Thin Eyes: Yes: WNL HENT: Yes: WNL Neck: Yes: Supple (trach) Cardiovascular: Yes: Pulse Irregular, S1, S2 Respiratory: Yes: Rhonchi (few rhonchi) Gastrointestinal: Yes: Normal Bowel Sounds, Soft Extremities: Yes: WNL Edema: No Problem List - Problems (1) Seizure Code(s): R56.9 - UNSPECIFIED CONVULSIONS (2) AICD (automatic cardioverter/defibrillator) present Code(s): Z95.810 - PRESENCE OF AUTOMATIC (IMPLANTABLE) CARDIAC DEFIBRILLATOR (3) Acute and chronic respiratory failure with hypercapnia Code(s): J96.22 - ACUTE AND CHRONIC RESPIRATORY FAILURE WITH HYPERCAPNIA (4) Altered mental status Code(s): R41.82 - ALTERED MENTAL STATUS, UNSPECIFIED (5) COPD (chronic obstructive pulmonary disease) Code(s): J44.9 - CHRONIC OBSTRUCTIVE PULMONARY DISEASE, UNSPECIFIED (6) Chronic respiratory failure Code(s): J96.10 - CHRONIC RESPIRATORY FAILURE, UNSP W HYPOXIA OR HYPERCAPNIA (7) Pneumonia Code(s): J18.9 - PNEUMONIA, UNSPECIFIED ORGANISM Qualifiers: Pneumonia type: due to unspecified organism Laterality: left Lung location: lower lobe of lung Qualified Code(s): J18.1 - Lobar pneumonia, unspecified organism (8) Respirator dependence Code(s): Z99.11 - DEPENDENCE ON RESPIRATOR [VENTILATOR] STATUS Assessment/Plan IMP: S/P Seizure (?) CVA AMS (?) PNA : patient with chronic Left sided changes UTI Chronic Respiratory Failure End stage COPD CAD AFib AICD Recurrent UTI, PLAN: ABX per ID AC Mode of vent Seizure precautions AEDs DNR/DNI barium swallow DR CABRERA
--- NOTE | 2017-11-27 15:58 | PN ---
Progress Note, Physician Chief Complaint: ASLEEP EVENTS REVIEWED TRACHEOSTOMY INTACT VENT DEPENDENT - Current Medication List Current Medications: Active Medications Albuterol Sulfate (Ventolin 0.083% Nebulizer Soln -) 1 amp NEB Q4H PRN PRN Reason: SHORT OF BREATH/WHEEZING Albuterol/Ipratropium (Duoneb -) 1 amp NEB RQID [facility] Last Admin: 11/27/17 12:04 Dose: 1 amp Apixaban (Eliquis -) 2.5 mg PO BID [facility] Last Admin: 11/27/17 10:51 Dose: 2.5 mg Atorvastatin Calcium (Lipitor -) 10 mg PO [facility] Last Admin: 11/26/17 21:48 Dose: 10 mg Docusate Sodium (Colace -) 300 mg PO [facility] Last Admin: 11/26/17 21:48 Dose: 300 mg Ferrous Sulfate (Feosol -) 325 mg PO BID [facility] Last Admin: 11/27/17 10:52 Dose: 325 mg Cefepime HCl 2 gm/ Dextrose 100 mls @ 200 mls/hr IVPB BID@0800,2000 [facility] PRN Reason: Protocol Last Admin: 11/27/17 08:52 Dose: 200 mls/hr Levofloxacin (Levaquin 250 Mg Premixed Ivpb -) 250 mg in 50 mls @ 50 mls/hr IVPB DAILY [facility] PRN Reason: Protocol Last Admin: 11/27/17 10:52 Dose: 50 mls/hr Lactobacillus Acidophilus (Bacid -) 1 tab PO DAILY [facility] Last Admin: 11/27/17 10:50 Dose: 1 tab Metoprolol Tartrate (Lopressor -) 12.5 mg PO BID [facility] Last Admin: 11/27/17 10:50 Dose: 12.5 mg Mirtazapine (Remeron -) 15 mg PO [facility] Last Admin: 11/26/17 21:47 Dose: 15 mg Multivitamins/Minerals/Vitamin C (Tab-A-Vit -) 1 tab PO DAILY [facility] Last Admin: 11/27/17 10:50 Dose: 1 tab Neomycin/Polymyxin/Hydrocortisone (Cortisporin Otic Suspenstion -) 1 drop AD TID [facility] Last Admin: 11/27/17 14:30 Dose: 1 drop - Objective Vital Signs: Vital Signs Temperature 98.9 F 11/27/17 14:33 Pulse Rate 63 11/27/17 14:33 Respiratory Rate 18 11/27/17 14:33 Blood Pressure 104/59 11/27/17 14:33 O2 Sat by Pulse Oximetry (%) 99 11/27/17 12:08 Constitutional: Yes: No Distress Eyes: Yes: WNL HENT: Yes: WNL Neck: Yes: Other (TRACHEOSTOMY) Cardiovascular: Yes: WNL Respiratory: Yes: Mechanically Ventilated Gastrointestinal: Yes: Other Musculoskeletal: Yes: Muscle Weakness Extremities: Yes: WNL Edema: No Peripheral Pulses WNL: Yes Integumentary: Yes: Venous Stasis Changes Wound/Incision: Yes: Dressing Dry and Intact Neurological: Yes: Pre-Existing Deficit ...Motor Strength: LLE, RLE Psychiatric: Yes: Other Labs: CBC, BMP 11/26/17 06:12 11/26/17 06:12 INR, PTT INR 1.25 (0.82-1.09) H 11/22/17 18:00 Problem List - Problems (1) Diaphoresis Code(s): R61 - GENERALIZED HYPERHIDROSIS (2) Hypotension Code(s): I95.9 - HYPOTENSION, UNSPECIFIED (3) Seizure Code(s): R56.9 - UNSPECIFIED CONVULSIONS (4) AICD (automatic cardioverter/defibrillator) present Code(s): Z95.810 - PRESENCE OF AUTOMATIC (IMPLANTABLE) CARDIAC DEFIBRILLATOR (5) Respirator dependence Code(s): Z99.11 - DEPENDENCE ON RESPIRATOR [VENTILATOR] STATUS Assessment/Plan ID WORKUP APPRECIATED CONTINE IV ABX NEURO EVAL/CARBAPENEM REACTION PULM F/U DVT PROPHYLAXIS DNR CHECK CULTURES SWALLOW EVAL APPRECIATED
[2017-11-27] MEDS: ATORVASTATIN CA 10 MG TABLET (FP) PO SCH (22:56)
[2017-11-27] MEDS: MIRTAZAPINE 15 MG TABLET (FP) PO SCH (22:57)
[2017-11-27] MEDS: DOCUSATE SODIUM 100 MG CAPSULE (FP) PO SCH (22:57)
[2017-11-28] MEDS: NEOMYCIN/POLYMYXN/HC OTIC SUSPENSION 10 ML BOTTLE AD SCH ×3 (05:56→22:51)
[2017-11-28] MEDS: ALBUTEROL SO4 2.5/IPRATROPIUM 0.5 INH SOL 3 ML VIAL.NEB. NEB SCH ×4 (07:58→20:35)
[2017-11-28] MEDS ORDERED: PT OWN MED DRAWER 7, Y5N ONE ×4 (08:38→21:08)
[2017-11-28] MEDS: CEFEPIME 2 GM in DEXTROSE 5%-WATER 100 ML IVPB SCH ×2 (08:43→21:44)
[2017-11-28] MEDS: LACTOBACILLUS ACIDOPHILUS 1 TABLET PO SCH (09:14)
[2017-11-28] MEDS: METOPROLOL TARTRATE 25 MG TABLET (FP) PO SCH ×2 (09:14→21:43)
[2017-11-28] MEDS: FERROUS SO4 325 MG TABLET (FP) PO SCH ×2 (09:15→21:44)
[2017-11-28] MEDS: APIXABAN 2.5 MG TABLET PO SCH ×2 (09:21→21:44)
[2017-11-28] MEDS: MULTIVITAMINS (DAILY MVI) TABLET (FP) PO SCH (09:29)
--- NOTE | 2017-11-28 10:37 | PN ---
Progress Note, Physician Chief Complaint: ASLEEP COMFORTABLE C/O CHEST PAIN TO STAFF - Current Medication List Current Medications: Active Medications Albuterol Sulfate (Ventolin 0.083% Nebulizer Soln -) 1 amp NEB Q4H PRN PRN Reason: SHORT OF BREATH/WHEEZING Albuterol/Ipratropium (Duoneb -) 1 amp NEB RQID [facility] Last Admin: 11/28/17 07:58 Dose: 1 amp Apixaban (Eliquis -) 2.5 mg PO BID [facility] Last Admin: 11/28/17 09:21 Dose: 2.5 mg Atorvastatin Calcium (Lipitor -) [address] [facility] Last Admin: 11/27/17 22:56 Dose: 10 mg Docusate Sodium (Colace -) [address] [facility] Last Admin: 11/27/17 22:57 Dose: 300 mg Ferrous Sulfate (Feosol -) 325 mg PO BID [facility] Last Admin: 11/28/17 09:15 Dose: 325 mg Cefepime HCl 2 gm/ Dextrose 100 mls @ 200 mls/hr IVPB BID@0800,2000 [facility] PRN Reason: Protocol Last Admin: 11/28/17 08:43 Dose: 200 mls/hr Levofloxacin (Levaquin 250 Mg Premixed Ivpb -) 250 mg in 50 mls @ 50 mls/hr IVPB DAILY [facility] PRN Reason: Protocol Last Admin: 11/28/17 09:16 Dose: 50 mls/hr Lactobacillus Acidophilus (Bacid -) 1 tab PO DAILY [facility] Last Admin: 11/28/17 09:14 Dose: 1 tab Metoprolol Tartrate (Lopressor -) 12.5 mg PO BID [facility] Last Admin: 11/28/17 09:14 Dose: 12.5 mg Mirtazapine (Remeron -) [address] [facility] Last Admin: 11/27/17 22:57 Dose: 15 mg Multivitamins/Minerals/Vitamin C (Tab-A-Vit -) 1 tab PO DAILY [facility] Last Admin: 11/28/17 09:29 Dose: 1 tab Neomycin/Polymyxin/Hydrocortisone (Cortisporin Otic Suspenstion -) 1 drop AD TID [facility] Last Admin: 11/28/17 05:56 Dose: 1 drop - Objective Vital Signs: Vital Signs Temperature 98.3 F 11/28/17 06:00 Pulse Rate 71 11/28/17 09:40 Respiratory Rate 15 11/28/17 09:40 Blood Pressure 120/84 11/28/17 06:00 O2 Sat by Pulse Oximetry (%) 97 11/28/17 09:40 Constitutional: Yes: No Distress Eyes: Yes: WNL HENT: Yes: WNL Neck: Yes: WNL Cardiovascular: Yes: Other Respiratory: Yes: Mechanically Ventilated, Other Gastrointestinal: Yes: WNL Genitourinary: Yes: Incontinence Musculoskeletal: Yes: Muscle Weakness Extremities: Yes: Other Edema: No Peripheral Pulses WNL: Yes Integumentary: Yes: Venous Stasis Changes Wound/Incision: Yes: Dressing Dry and Intact Neurological: Yes: Other ...Motor Strength: LLE, RLE Psychiatric: Yes: Other Labs: CBC, BMP 11/26/17 06:12 11/26/17 06:12 INR, PTT INR 1.25 (0.82-1.09) H 11/22/17 18:00 Problem List - Problems (1) Diaphoresis Code(s): R61 - GENERALIZED HYPERHIDROSIS (2) Hypotension Code(s): I95.9 - HYPOTENSION, UNSPECIFIED (3) Seizure Code(s): R56.9 - UNSPECIFIED CONVULSIONS (4) AICD (automatic cardioverter/defibrillator) present Code(s): Z95.810 - PRESENCE OF AUTOMATIC (IMPLANTABLE) CARDIAC DEFIBRILLATOR (5) Respirator dependence Code(s): Z99.11 - DEPENDENCE ON RESPIRATOR [VENTILATOR] STATUS Assessment/Plan ID WORKUP APPRECIATED CONTINE IV ABX NEURO EVAL/CARBAPENEM REACTION PULM F/U DVT PROPHYLAXIS DNR CHECK CULTURES SWALLOW EVAL APPRECIATED
--- NOTE | 2017-11-28 12:30 | PN ---
Progress Note, Physician History of Present Illness: reports stomch upset when questioned Awake, alert on ventilator No acute distress Afebrile WBC WNL - Current Medication List Current Medications: Active Medications Albuterol Sulfate (Ventolin 0.083% Nebulizer Soln -) 1 amp NEB Q4H PRN PRN Reason: SHORT OF BREATH/WHEEZING Albuterol/Ipratropium (Duoneb -) 1 amp NEB RQID [facility] Last Admin: 11/28/17 11:46 Dose: 1 amp Apixaban (Eliquis -) 2.5 mg PO BID [facility] Last Admin: 11/28/17 09:21 Dose: 2.5 mg Atorvastatin Calcium (Lipitor -) 10 mg PO [facility] Last Admin: 11/27/17 22:56 Dose: 10 mg Docusate Sodium (Colace -) 300 mg PO HS [facility] Last Admin: 11/27/17 22:57 Dose: 300 mg Ferrous Sulfate (Feosol -) 325 mg PO BID [facility] Last Admin: 11/28/17 09:15 Dose: 325 mg Cefepime HCl 2 gm/ Dextrose 100 mls @ 200 mls/hr IVPB BID@0800,2000 [facility] PRN Reason: Protocol Last Admin: 11/28/17 08:43 Dose: 200 mls/hr Levofloxacin (Levaquin 250 Mg Premixed Ivpb -) 250 mg in 50 mls @ 50 mls/hr IVPB DAILY [facility] PRN Reason: Protocol Last Admin: 11/28/17 09:16 Dose: 50 mls/hr Lactobacillus Acidophilus (Bacid -) 1 tab PO DAILY [facility] Last Admin: 11/28/17 09:14 Dose: 1 tab Metoprolol Tartrate (Lopressor -) 12.5 mg PO BID [facility] Last Admin: 11/28/17 09:14 Dose: 12.5 mg Mirtazapine (Remeron -) 15 mg PO [facility] Last Admin: 11/27/17 22:57 Dose: 15 mg Multivitamins/Minerals/Vitamin C (Tab-A-Vit -) 1 tab PO DAILY [facility] Last Admin: 11/28/17 09:29 Dose: 1 tab Neomycin/Polymyxin/Hydrocortisone (Cortisporin Otic Suspenstion -) 1 drop AD TID [facility] Last Admin: 11/28/17 05:56 Dose: 1 drop - Objective Vital Signs: Vital Signs Temperature 98.7 F 11/28/17 10:18 Pulse Rate 71 11/28/17 09:40 Respiratory Rate 15 11/28/17 09:40 Blood Pressure 116/65 11/28/17 09:00 O2 Sat by Pulse Oximetry (%) 97 11/28/17 09:40 Constitutional: Yes: No Distress, Cachectic Cardiovascular: Yes: Regular Rate and Rhythm, S1, S2 Respiratory: Yes: Mechanically Ventilated Gastrointestinal: Yes: Normal Bowel Sounds, Soft, Tenderness, Other (slightly distended) Edema: No Labs: CBC, BMP 11/26/17 06:12 11/26/17 06:12 INR, PTT INR 1.25 (0.82-1.09) H 11/22/17 18:00 Assessment/Plan Chronic respiratory failure Pneumonia ESBL UTI Possible carbapenem-induced seizure Continue cefepime / levaquin Contact precautions
--- NOTE | 2017-11-28 13:00 | PN ---
Progress Note, Physician History of Present Illness: pulmonary awake,on vent support ac mode ,-resp distress - Current Medication List Current Medications: Active Medications Albuterol Sulfate (Ventolin 0.083% Nebulizer Soln -) 1 amp NEB Q4H PRN PRN Reason: SHORT OF BREATH/WHEEZING Albuterol/Ipratropium (Duoneb -) 1 amp NEB RQID [facility] Last Admin: 11/28/17 11:46 Dose: 1 amp Apixaban (Eliquis -) 2.5 mg PO BID [facility] Last Admin: 11/28/17 09:21 Dose: 2.5 mg Atorvastatin Calcium (Lipitor -) 10 mg PO [facility] Last Admin: 11/27/17 22:56 Dose: 10 mg Docusate Sodium (Colace -) 300 mg PO [facility] Last Admin: 11/27/17 22:57 Dose: 300 mg Ferrous Sulfate (Feosol -) 325 mg PO BID [facility] Last Admin: 11/28/17 09:15 Dose: 325 mg Cefepime HCl 2 gm/ Dextrose 100 mls @ 200 mls/hr IVPB BID@0800,2000 [facility] PRN Reason: Protocol Last Admin: 11/28/17 08:43 Dose: 200 mls/hr Levofloxacin (Levaquin 250 Mg Premixed Ivpb -) 250 mg in 50 mls @ 50 mls/hr IVPB DAILY [facility] PRN Reason: Protocol Last Admin: 11/28/17 09:16 Dose: 50 mls/hr Lactobacillus Acidophilus (Bacid -) 1 tab PO DAILY [facility] Last Admin: 11/28/17 09:14 Dose: 1 tab Metoprolol Tartrate (Lopressor -) 12.5 mg PO BID [facility] Last Admin: 11/28/17 09:14 Dose: 12.5 mg Mirtazapine (Remeron -) 15 mg PO [facility] Last Admin: 11/27/17 22:57 Dose: 15 mg Multivitamins/Minerals/Vitamin C (Tab-A-Vit -) 1 tab PO DAILY [facility] Last Admin: 11/28/17 09:29 Dose: 1 tab Neomycin/Polymyxin/Hydrocortisone (Cortisporin Otic Suspenstion -) 1 drop AD TID [facility] Last Admin: 11/28/17 05:56 Dose: 1 drop - Objective Vital Signs: Vital Signs Temperature 98.7 F 11/28/17 10:18 Pulse Rate 71 05/09/18 09:40 Respiratory Rate 15 11/28/17 09:40 Blood Pressure 116/65 11/28/17 09:00 O2 Sat by Pulse Oximetry (%) 97 11/28/17 09:40 Constitutional: Yes: Calm, Thin Eyes: Yes: WNL HENT: Yes: WNL Neck: Yes: Supple (trach) Cardiovascular: Yes: Pulse Irregular, S1, S2 Respiratory: Yes: Rhonchi (few rhonchi) Gastrointestinal: Yes: Normal Bowel Sounds, Soft Extremities: Yes: WNL Edema: No Labs: CBC, BMP Problem List - Problems (1) Seizure Code(s): R56.9 - UNSPECIFIED CONVULSIONS (2) AICD (automatic cardioverter/defibrillator) present Code(s): Z95.810 - PRESENCE OF AUTOMATIC (IMPLANTABLE) CARDIAC DEFIBRILLATOR (3) Acute and chronic respiratory failure with hypercapnia Code(s): J96.22 - ACUTE AND CHRONIC RESPIRATORY FAILURE WITH HYPERCAPNIA (4) Altered mental status Code(s): R41.82 - ALTERED MENTAL STATUS, UNSPECIFIED (5) COPD (chronic obstructive pulmonary disease) Code(s): J44.9 - CHRONIC OBSTRUCTIVE PULMONARY DISEASE, UNSPECIFIED (6) Chronic respiratory failure Code(s): J96.10 - CHRONIC RESPIRATORY FAILURE, UNSP W HYPOXIA OR HYPERCAPNIA (7) Pneumonia Code(s): J18.9 - PNEUMONIA, UNSPECIFIED ORGANISM Qualifiers: Pneumonia type: due to unspecified organism Laterality: left Lung location: lower lobe of lung Qualified Code(s): J18.1 - Lobar pneumonia, unspecified organism (8) Respirator dependence Code(s): Z99.11 - DEPENDENCE ON RESPIRATOR [VENTILATOR] STATUS Assessment/Plan IMP: S/P Seizure (?) CVA AMS (?) PNA : patient with chronic Left sided changes UTI Chronic Respiratory Failure End stage COPD CAD AFib AICD Recurrent UTI, PLAN: ABX per ID AC Mode of vent Seizure precautions AEDs DNR/DNI barium swallow DR CABRERA
--- NOTE | 2017-11-28 13:08 | PN ---
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 Selected Entries 11/27/17 11/27/17 11/27/17 06:00 09:12 10:00 Breakfast 25% Lunch Supper Temperature 97.9 F 97.4 F L 11/27/17 11/27/17 11/28/17 14:33 18:35 06:00 Breakfast Lunch 50% Supper 100% Temperature 98.9 F 98.8 F 98.3 F 11/28/17 11/28/17 11/28/17 09:00 09:43 10:18 Breakfast 25% Lunch Supper Temperature 99.1 F 98.7 F Overtly tolerating puree and nectar thick liquid. Consider: Downsize trach?/PMV evaluation MBS to assess swallowing function and provide most liberal diet pt can tolerate.
[2017-11-28] MEDS ORDERED: ACETAMINOPHEN 325 MG TABLET (FP) PO PRN (17:55)
[2017-11-28] MEDS: MIRTAZAPINE 15 MG TABLET (FP) PO SCH (21:44)
[2017-11-28] MEDS: ATORVASTATIN CA 10 MG TABLET (FP) PO SCH (21:44)
[2017-11-28] MEDS: DOCUSATE SODIUM 100 MG CAPSULE (FP) PO SCH (22:45)
[2017-11-29] MEDS: NEOMYCIN/POLYMYXN/HC OTIC SUSPENSION 10 ML BOTTLE AD SCH ×3 (05:49→21:19)
[2017-11-29] MEDS: ALBUTEROL SO4 2.5/IPRATROPIUM 0.5 INH SOL 3 ML VIAL.NEB. NEB SCH ×3 (07:56→20:50)
[2017-11-29] MEDS: CEFEPIME 2 GM in DEXTROSE 5%-WATER 100 ML IVPB SCH ×2 (09:00→21:19)
[2017-11-29] MEDS ORDERED: PT OWN MED DRAWER 7, Y5N ONE ×3 (09:25→21:16)
[2017-11-29] MEDS: MULTIVITAMINS (DAILY MVI) TABLET (FP) PO SCH (09:30)
[2017-11-29] MEDS: FERROUS SO4 325 MG TABLET (FP) PO SCH (09:30)
[2017-11-29] MEDS: METOPROLOL TARTRATE 25 MG TABLET (FP) PO SCH ×2 (09:30→21:20)
[2017-11-29] MEDS: LACTOBACILLUS ACIDOPHILUS 1 TABLET PO SCH (09:30)
[2017-11-29] MEDS: APIXABAN 2.5 MG TABLET PO SCH ×2 (09:36→21:20)
--- NOTE | 2017-11-29 10:31 | PN ---
Progress Note (short form) - Note Progress Note: PULMONARY Vented, poorly responsive. Last Vital Signs Temp Pulse Resp BP Pulse Ox 98.8 F 72 14 123/82 96 11/29/17 06:00 11/29/17 09:39 11/29/17 09:38 11/29/17 06:00 11/29/17 09:39 Gen: vented, poorly responsive Heart: RRR Lung: scattered rhonchi Abd: soft, nontender Ext: no edema CBC, BMP 11/26/17 06:12 11/26/17 06:12 Active Medications Acetaminophen (Tylenol -) 650 mg PO Q6H PRN PRN Reason: FEVER Last Admin: 11/28/17 18:02 Dose: 650 mg Albuterol/Ipratropium (Duoneb -) 1 amp NEB RQID [facility] Last Admin: 11/29/17 07:56 Dose: 1 amp Apixaban (Eliquis -) 2.5 mg PO BID [facility] Last Admin: 11/29/17 09:36 Dose: 2.5 mg Atorvastatin Calcium (Lipitor -) 10 mg PO [facility] Last Admin: 11/28/17 21:44 Dose: 10 mg Docusate Sodium (Colace -) 300 mg PO [facility] Last Admin: 11/28/17 22:45 Dose: Not Given Ferrous Sulfate (Feosol -) 325 mg PO BID [facility] Last Admin: 11/29/17 09:30 Dose: 325 mg Cefepime HCl 2 gm/ Dextrose 100 mls @ 200 mls/hr IVPB BID@0800,2000 [facility] PRN Reason: Protocol Last Admin: 11/29/17 09:00 Dose: 200 mls/hr Levofloxacin (Levaquin 250 Mg Premixed Ivpb -) 250 mg in 50 mls @ 50 mls/hr IVPB DAILY [facility] PRN Reason: Protocol Last Admin: 11/29/17 09:30 Dose: 50 mls/hr Lactobacillus Acidophilus (Bacid -) 1 tab PO DAILY [facility] Last Admin: 11/29/17 09:30 Dose: 1 tab Metoprolol Tartrate (Lopressor -) 12.5 mg PO BID [facility] Last Admin: 11/29/17 09:30 Dose: 12.5 mg Mirtazapine (Remeron -) 15 mg PO [facility] Last Admin: 11/28/17 21:44 Dose: 15 mg Multivitamins/Minerals/Vitamin C (Tab-A-Vit -) 1 tab PO DAILY [facility] Last Admin: 11/29/17 09:30 Dose: 1 tab Neomycin/Polymyxin/Hydrocortisone (Cortisporin Otic Suspenstion -) 1 drop AD TID [facility] Last Admin: 11/29/17 05:49 Dose: Not Given A/P Chronic Respiratory Failure r/o Seizure Episode r/o Pneumonia UTI End Stage COPD Atrial Fibrillation CAD - antibiotics per ID - inhaled bronchodilators - enteral feeds - continue volume assist control - poor candidate for weaning at this time - DVT prophylaxis
--- NOTE | 2017-11-29 12:05 | PN ---
Progress Note, ROCK [employer]ER - Note Progress Note: Nursing reports pt was anxious this am,crying with many complaints. Pt's face was flushed when I saw her and she c/o she couldnt breathe. Nursing aware. MBS ordered. Pt is on a pureed diet and nectar thick liquid. She is overtly tolerating diet but dislikes it. Selected Entries 11/28/17 11/28/17 11/28/17 06:00 09:00 09:43 Breakfast 25% Diet Tolerated Fair Lunch Supper Temperature 98.3 F 99.1 F 11/28/17 11/28/17 11/28/17 10:18 14:33 17:45 Breakfast Diet Tolerated Poor Lunch 25% Supper Temperature 98.7 F 100.0 F H 101.5 F H 11/28/17 11/28/17 11/29/17 18:45 20:00 03:00 Breakfast Diet Tolerated Well Lunch Supper 75% Temperature 98.8 F 98.9 F 11/29/17 11/29/17 06:00 09:28 Breakfast 0 Diet Tolerated Refused Lunch Supper Temperature 98.8 F Laboratory Tests 11/26/17 06:12 WBC 6.1 Pt was unable to tolerate PMV during last admission. I suspect this is due to impaired airflow with size 8 trach. Consider downsizing trach, if medically appropriate,with repeat PMV evaluation. This will improve speech production/communication, socialization, upper airway use and function, sensation, and swallowing function. MBS to follow, if possible.
--- NOTE | 2017-11-29 14:15 | PN ---
Progress Note, Physician Chief Complaint: ENT consult to see if trach size can be changed - Current Medication List Current Medications: Active Medications Acetaminophen (Tylenol -) 650 mg PO Q6H PRN PRN Reason: FEVER Last Admin: 11/28/17 18:02 Dose: 650 mg Albuterol/Ipratropium (Duoneb -) 1 amp NEB RQID [facility] Last Admin: 11/29/17 07:56 Dose: 1 amp Apixaban (Eliquis -) 2.5 mg PO BID [facility] Last Admin: 11/29/17 09:36 Dose: 2.5 mg Atorvastatin Calcium (Lipitor -) 10 mg PO [facility] Last Admin: 11/28/17 21:44 Dose: 10 mg Docusate Sodium (Colace -) 300 mg PO [facility] Last Admin: 11/28/17 22:45 Dose: Not Given Ferrous Sulfate (Feosol) 300 mg PO BID [facility] Cefepime HCl 2 gm/ Dextrose 100 mls @ 200 mls/hr IVPB BID@0800,2000 [facility] PRN Reason: Protocol Last Admin: 11/29/17 09:00 Dose: 200 mls/hr Levofloxacin (Levaquin 250 Mg Premixed Ivpb -) 250 mg in 50 mls @ 50 mls/hr IVPB DAILY [facility] PRN Reason: Protocol Last Admin: 11/29/17 09:30 Dose: 50 mls/hr Lactobacillus Acidophilus (Bacid -) 1 tab PO DAILY [facility] Last Admin: 11/29/17 09:30 Dose: 1 tab Metoprolol Tartrate (Lopressor -) 12.5 mg PO BID [facility] Last Admin: 11/29/17 09:30 Dose: 12.5 mg Mirtazapine (Remeron -) 15 mg PO [facility] Last Admin: 11/28/17 21:44 Dose: 15 mg Multivitamins/Minerals/Vitamin C (Tab-A-Vit -) 1 tab PO DAILY [facility] Last Admin: 11/29/17 09:30 Dose: 1 tab Neomycin/Polymyxin/Hydrocortisone (Cortisporin Otic Suspenstion -) 1 drop AD TID [facility] Last Admin: 11/29/17 05:49 Dose: Not Given - Objective Vital Signs: Vital Signs Temperature 98.8 F 11/29/17 06:00 Pulse Rate 72 11/29/17 09:39 Respiratory Rate 15 11/29/17 13:57 Blood Pressure 123/82 11/29/17 06:00 O2 Sat by Pulse Oximetry (%) 96 11/29/17 09:39 Constitutional: Yes: Calm Neck: Yes: Other (trach) Cardiovascular: Yes: Regular Rate and Rhythm, S1, S2 Respiratory: Yes: Mechanically Ventilated Gastrointestinal: Yes: Normal Bowel Sounds, Soft Labs: CBC, BMP 11/26/17 06:12 11/26/17 06:12 INR, PTT INR 1.25 (0.82-1.09) H 11/22/17 18:00 Problem List - Problems (1) Pneumonia Assessment/Plan: abx per ID repeat cxr MBS Code(s): J18.9 - PNEUMONIA, UNSPECIFIED ORGANISM Qualifiers: Pneumonia type: due to unspecified organism Laterality: left Lung location: lower lobe of lung Qualified Code(s): J18.1 - Lobar pneumonia, unspecified organism (2) Chronic respiratory failure Assessment/Plan: vent dependant ENT to see patient to see if trach can be down sized so that PMV can be applied Code(s): J96.10 - CHRONIC RESPIRATORY FAILURE, UNSP W HYPOXIA OR HYPERCAPNIA (3) PAF (paroxysmal atrial fibrillation) Assessment/Plan: eliquis rate control with metoprolol Code(s): I48.0 - PAROXYSMAL ATRIAL FIBRILLATION
[2017-11-29] MEDS ORDERED: SODIUM CHLORIDE 500 ML IV STA (20:37)
[2017-11-29] MEDS: DOCUSATE SODIUM 100 MG CAPSULE (FP) PO SCH (21:19)
[2017-11-29] MEDS: FERROUS SO4 300 MG/5 ML ORAL SOLN UNIT DOSE CUPS PO SCH (21:20)
[2017-11-29] MEDS: ATORVASTATIN CA 10 MG TABLET (FP) PO SCH (21:20)
[2017-11-29] MEDS: MIRTAZAPINE 15 MG TABLET (FP) PO SCH (21:21)
[2017-11-30] MEDS: NEOMYCIN/POLYMYXN/HC OTIC SUSPENSION 10 ML BOTTLE AD SCH ×2 (06:10→13:42)
[2017-11-30] MEDS ORDERED: PT OWN MED DRAWER 7, Y5N ONE ×2 (06:44→09:03)
[2017-11-30] MEDS: ALBUTEROL SO4 2.5/IPRATROPIUM 0.5 INH SOL 3 ML VIAL.NEB. NEB SCH ×3 (07:45→16:35)
[2017-11-30 07:50] LABS: BASO % 0.6 % (0-2.0); EOS % 7.4 % (0-4.5); HEMATOCRIT 32.4 % (32.4-45.2); HEMOGLOBIN 10.7 GM/dL (10.7-15.3); LYMPH % 19.7 % (8-40); MCH 28.8 pg (25.7-33.7); MCHC 33.2 g/dl (32.0-36.0); MEAN CELL VOLUME 86.9 fl (80-96); MEAN PLT VOLUME 9.7 fl (7.5-11.1); MONO % 9.8 % (3.8-10.2); NEUT % 62.5 % (42.8-82.8); PLATELET COUNT 125 K/MM3 (134-434); RBC 3.73 M/mm3 (3.60-5.2); RDW 15.4 % (11.6-15.6); WHITE BLOOD COUNT 8.7 K/mm3 (4.0-10.0)
[2017-11-30 08:13] LABS: ALBUMIN 2.7 g/dl (3.4-5.0); ANION GAP 6 (8-16); BLOOD UREA NITROGEN 17 mg/dL (7-18); CALCIUM 8.7 mg/dL (8.5-10.1); CHLORIDE 106 mmol/L (98-107); CO2 32 mmol/L (21-32); GLUCOSE,RANDOM 86 mg/dL (74-106); POTASSIUM 3.9 mmol/L (3.5-5.1); SODIUM 144 mmol/L (136-145)
[2017-11-30 08:20] LABS: ALK PHOS 96 U/L (45-117); BILIRUBIN,TOTAL 0.5 mg/dL (0.2-1.0); CREATININE 0.6 mg/dL (0.55-1.02); SGOT/AST 13 U/L (15-37); SGPT/ALT 17 U/L (12-78); TOT PROT 6.5 g/dl (6.4-8.2)
[2017-11-30] MEDS: CEFEPIME 2 GM in DEXTROSE 5%-WATER 100 ML IVPB SCH (09:05)
[2017-11-30] MEDS: LACTOBACILLUS ACIDOPHILUS 1 TABLET PO SCH (09:57)
[2017-11-30] MEDS: FERROUS SO4 300 MG/5 ML ORAL SOLN UNIT DOSE CUPS PO SCH (09:57)
[2017-11-30] MEDS: APIXABAN 2.5 MG TABLET PO SCH (09:58)
[2017-11-30] MEDS: MULTIVITAMINS (DAILY MVI) TABLET (FP) PO SCH (09:58)
[2017-11-30] MEDS: METOPROLOL TARTRATE 25 MG TABLET (FP) PO SCH (09:58)
--- NOTE | 2017-11-30 11:58 | PN ---
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 I suspect this is due to impaired airflow with size 8 trach. Consider downsizing trach, if medically appropriate,with repeat PMV evaluation. This will improve speech production/communication, socialization, upper airway use and function, sensation, and swallowing function. MBS to follow, if possible. ENT consulted to assess potential for smaller trach, which would hopefully allow pt to speak and swallow more efficiently.
--- NOTE | 2017-11-30 12:18 | CON.ENT ---
Consult Consult Specialty:: ENT Reason for Consultation:: Trach on vent - History of Present Illness History of Present Illness: This 82 yo woman with multiple medical problems, dementia and COPD is s/p trach and ventilator dependent. AFib on eliquis. In NH with recurrent UTI's. She was transferred from [place], with poss aspiration pneumonia and had a sz in the ER. COURT CRIER suggested that she may be able to speak better witha a smaller trach. However, on a previous visit she has been seen by my colleague Dr Johnson for problems with maintaining ventilation. She was diagnosed with tracheomalacia and a 7 portex failed to keep a seal. It was not easy to upsize her, but she needed the 8 portex in order to continue ventilation. - Past Medical History COMBAT CONTROL: Yes: CVA, Dementia, Parkinson's Cardio/Vascular: Yes: AFIB (Paroxysmal), CHF, HTN, Hyperlipdemia, Other (h/o cardiac arrest s/p AICD - Single lead) Pulmonary: Yes: COPD, Other (respiratory failure) Gastrointestinal: Yes: GERD ...: No - Past Surgical History Past Surgical History: Yes: AICD ([employer], implanted following cardiac arrest) , Cataract Removal (2011) - Alcohol/Substance Use Hx Alcohol Use: No - Smoking History Smoking history: Unknown if ever smoked Have you smoked in the past 12 months: No Aproximately how many cigarettes per day: 0 - Social History Usual Living Arrangement: Detention History of Recent Travel: No Home Medications - Allergies Allergies/Adverse Reactions: Allergies Allergy/AdvReac Type Severity Reaction Status Date / Time doxycycline Allergy Intermediate Verified 11/22/17 17:38 shellfish derived Allergy Verified 11/22/17 17:38 CLAMS Allergy Intermediate Hives Uncoded 11/22/17 17:38 retana Allergy Uncoded 11/22/17 17:38 - Home Medications Home Medications: Ambulatory Orders Docusate Sodium 300 mg PO HS 10/19/16 Albuterol 0.083% Nebulizer Yady [Ventolin 0.083% Nebulizer Soln -] 1 amp NEB Q4H PRN #180 amp 03/20/17 Apixaban [Eliquis -] 2.5 mg PO BID tablet 03/20/17 Atorvastatin Ca [Lipitor] 10 mg PO HS #30 tablet 03/20/17 Ferrous Sulfate 325 mg PO BID #60 tab 03/20/17 Lactobacillus Acidophilus [Bacid -] 1 tab PO DAILY #30 tab 03/20/17 Loratadine [Claritin -] 10 mg PO DAILY #30 tablet 03/20/17 Mirtazapine [Remeron -] 15 mg PO HS #30 tablet 03/20/17 Multivitamins [Multivit ([facility] Formulary)] 1 tab PO DAILY #30 tab 03/20/17 Metoprolol Tartrate [Lopressor -] 12.5 mg PO BID tablet 05/01/17 Ascorbic Acid/Ascorbate Sodium [Vitamin C 500 mg Wafer] 500 mg PO DAILY Hypromellose 0.5% Opth Soln [Artificial Tears] 1 drop OU BID 05/27/17 Acetaminophen [Tylenol .Regular Strength -] 650 mg PO Q4H PRN tablet 06/02/17 Neomycin/Polymyx/Hc Ophth Susp [Cortisporin *Ophthalmic Suspension* -] 1 drop OU TID drops 06/02/17 Physical Exam-ENT Vital Signs: Vital Signs Temperature 98.9 F 11/30/17 06:00 Pulse Rate 62 11/30/17 06:00 Respiratory Rate 14 11/30/17 10:15 Blood Pressure 99/59 11/30/17 06:00 O2 Sat by Pulse Oximetry (%) 96 11/29/17 09:39 Constitutional: Yes: No Distress Head: Yes: Atraumatic Face: Yes: WNL Eyes: Yes: WNL Nose: Yes: WNL Oral/Pharynx: Yes: WNL Outer Ear: Yes: WNL Neck: Yes: Other (#[address], pt able to phonate weakly with and without cuff deflation.) Problem List - Problems (1) Tracheostomy complication Assessment/Plan: She currently is a poor candidate for weaning as per Dr Ferris. Also she would be at increased risk for aspiration with a smaller cuff. I would proceed with modified barium swallow, but advise again down sizing, for fear of aspiration, and inability to ventilate due to underlying tracheomalacia. Code(s): J95.00 - UNSPECIFIED TRACHEOSTOMY COMPLICATION Qualifiers: Tracheostomy complication: other Qualified Code(s): J95.09 - Other tracheostomy complication
--- NOTE | 2017-11-30 14:23 | PN ---
Progress Note, Physician History of Present Illness: pulmonary no distress on vent support ac mode - Current Medication List Current Medications: Active Medications Acetaminophen (Tylenol -) 650 mg PO Q6H PRN PRN Reason: FEVER Last Admin: 11/28/17 18:02 Dose: 650 mg Albuterol/Ipratropium (Duoneb -) 1 amp NEB RQID [facility] Last Admin: 11/30/17 11:50 Dose: 1 amp Apixaban (Eliquis -) 2.5 mg PO BID [facility] Last Admin: 11/30/17 09:58 Dose: 2.5 mg Atorvastatin Calcium (Lipitor -) 10 mg PO [facility] Last Admin: 11/29/17 21:20 Dose: 10 mg Docusate Sodium (Colace -) 300 mg PO [facility] Last Admin: 11/29/17 21:19 Dose: Not Given Ferrous Sulfate (Feosol) 300 mg PO BID [facility] Last Admin: 11/30/17 09:57 Dose: 300 mg Cefepime HCl 2 gm/ Dextrose 100 mls @ 200 mls/hr IVPB BID@0800,2000 [facility] PRN Reason: Protocol Last Admin: 11/30/17 09:05 Dose: 200 mls/hr Levofloxacin (Levaquin 250 Mg Premixed Ivpb -) 250 mg in 50 mls @ 50 mls/hr IVPB DAILY [facility] PRN Reason: Protocol Last Admin: 11/30/17 09:58 Dose: 50 mls/hr Lactobacillus Acidophilus (Bacid -) 1 tab PO DAILY [facility] Last Admin: 11/30/17 09:57 Dose: 1 tab Metoprolol Tartrate (Lopressor -) 12.5 mg PO BID [facility] Last Admin: 11/30/17 09:58 Dose: 12.5 mg Mirtazapine (Remeron -) 15 mg PO [facility] Last Admin: 11/29/17 21:21 Dose: Not Given Multivitamins/Minerals/Vitamin C (Tab-A-Vit -) 1 tab PO DAILY [facility] Last Admin: 11/30/17 09:58 Dose: 1 tab Neomycin/Polymyxin/Hydrocortisone (Cortisporin Otic Suspenstion -) 1 drop AD TID [facility] Last Admin: 11/30/17 13:42 Dose: 1 drop - Objective Vital Signs: Vital Signs Temperature 98.9 F 11/30/17 06:00 Pulse Rate 62 11/30/17 06:00 Respiratory Rate 18 11/30/17 14:16 Blood Pressure 99/59 11/30/17 06:00 O2 Sat by Pulse Oximetry (%) 96 11/29/17 09:39 Constitutional: Yes: Calm Eyes: Yes: WNL HENT: Yes: WNL Neck: Yes: Supple (trach) Cardiovascular: Yes: Pulse Irregular, S1, S2 Respiratory: Yes: Diminished Gastrointestinal: Yes: Normal Bowel Sounds, Soft Extremities: Yes: WNL Edema: No Labs: CBC, BMP 11/30/17 07:30 11/30/17 07:30 INR, PTT INR 1.25 (0.82-1.09) H 11/22/17 18:00 Problem List - Problems (1) Seizure Code(s): R56.9 - UNSPECIFIED CONVULSIONS (2) AICD (automatic cardioverter/defibrillator) present Code(s): Z95.810 - PRESENCE OF AUTOMATIC (IMPLANTABLE) CARDIAC DEFIBRILLATOR (3) Acute and chronic respiratory failure with hypercapnia Code(s): J96.22 - ACUTE AND CHRONIC RESPIRATORY FAILURE WITH HYPERCAPNIA (4) Altered mental status Code(s): R41.82 - ALTERED MENTAL STATUS, UNSPECIFIED (5) COPD (chronic obstructive pulmonary disease) Code(s): J44.9 - CHRONIC OBSTRUCTIVE PULMONARY DISEASE, UNSPECIFIED (6) Chronic respiratory failure Code(s): J96.10 - CHRONIC RESPIRATORY FAILURE, UNSP W HYPOXIA OR HYPERCAPNIA (7) Pneumonia Code(s): J18.9 - PNEUMONIA, UNSPECIFIED ORGANISM Qualifiers: Pneumonia type: due to unspecified organism Laterality: left Lung location: lower lobe of lung Qualified Code(s): J18.1 - Lobar pneumonia, unspecified organism (8) Respirator dependence Code(s): Z99.11 - DEPENDENCE ON RESPIRATOR [VENTILATOR] STATUS Assessment/Plan IMP: S/P Seizure (?) CVA AMS (?) PNA : patient with chronic Left sided changes UTI Chronic Respiratory Failure End stage COPD CAD AFib AICD Recurrent UTI, PLAN: ABX per ID AC Mode of vent Seizure precautions AEDs DNR/DNI barium swallow DR CABRERA
--- NOTE | 2017-11-30 14:42 | PN ---
Progress Note, Physician History of Present Illness: Awake, alert on ventilator No acute distress Indicates no pain Afebrile WBC WNL - Current Medication List Current Medications: Active Medications Acetaminophen (Tylenol -) 650 mg PO Q6H PRN PRN Reason: FEVER Last Admin: 11/28/17 18:02 Dose: 650 mg Albuterol/Ipratropium (Duoneb -) 1 amp NEB RQID [facility] Last Admin: 11/30/17 11:50 Dose: 1 amp Apixaban (Eliquis -) 2.5 mg PO BID [facility] Last Admin: 11/30/17 09:58 Dose: 2.5 mg Atorvastatin Calcium (Lipitor -) 10 mg PO HS [facility] Last Admin: 11/29/17 21:20 Dose: 10 mg Docusate Sodium (Colace -) 300 mg PO HS [facility] Last Admin: 11/29/17 21:19 Dose: Not Given Ferrous Sulfate (Feosol) 300 mg PO BID [facility] Last Admin: 11/30/17 09:57 Dose: 300 mg Cefepime HCl 2 gm/ Dextrose 100 mls @ 200 mls/hr IVPB BID@0800,2000 [facility] PRN Reason: Protocol Last Admin: 11/30/17 09:05 Dose: 200 mls/hr Levofloxacin (Levaquin 250 Mg Premixed Ivpb -) 250 mg in 50 mls @ 50 mls/hr IVPB DAILY [facility] PRN Reason: Protocol Last Admin: 11/30/17 09:58 Dose: 50 mls/hr Lactobacillus Acidophilus (Bacid -) 1 tab PO DAILY [facility] Last Admin: 11/30/17 09:57 Dose: 1 tab Metoprolol Tartrate (Lopressor -) 12.5 mg PO BID [facility] Last Admin: 11/30/17 09:58 Dose: 12.5 mg Mirtazapine (Remeron -) 15 mg PO [facility] Last Admin: 11/29/17 21:21 Dose: Not Given Multivitamins/Minerals/Vitamin C (Tab-A-Vit -) 1 tab PO DAILY [facility] Last Admin: 11/30/17 09:58 Dose: 1 tab Neomycin/Polymyxin/Hydrocortisone (Cortisporin Otic Suspenstion -) 1 drop AD TID [facility] Last Admin: 11/30/17 13:42 Dose: 1 drop - Objective Vital Signs: Vital Signs Temperature 98.9 F 11/30/17 06:00 Pulse Rate 62 11/30/17 06:00 Respiratory Rate 18 11/30/17 14:16 Blood Pressure 99/59 11/30/17 06:00 O2 Sat by Pulse Oximetry (%) 96 11/29/17 09:39 Constitutional: Yes: No Distress, Cachectic Cardiovascular: Yes: Regular Rate and Rhythm, S1, S2 Respiratory: Yes: Diminished Gastrointestinal: Yes: Normal Bowel Sounds, Soft. No: Tenderness Labs: CBC, BMP 11/30/17 07:30 11/30/17 07:30 INR, PTT INR 1.25 (0.82-1.09) H 11/22/17 18:00 Assessment/Plan Chronic respiratory failure Pneumonia ESBL UTI Possible carbapenem-induced seizure Day #9 IV antibiotics D/C cefepime Switch to po levaquin x 24-48hr Contact precautions
[2017-11-30 14:56] VITALS: BP 95/59; PULSE 61; TEMP 98.5
--- NOTE | 2017-11-30 15:07 | DS ---
Physical Examination Vital Signs: Vital Signs Temperature 98.5 F 11/30/17 14:00 Pulse Rate 61 11/30/17 14:00 Respiratory Rate 18 11/30/17 14:16 Blood Pressure 95/59 11/30/17 14:00 O2 Sat by Pulse Oximetry (%) 96 11/29/17 09:39 Constitutional: Yes: Calm Neck: Yes: Other (trach) Cardiovascular: Yes: Regular Rate and Rhythm, S1, S2 Respiratory: Yes: Mechanically Ventilated Gastrointestinal: Yes: Normal Bowel Sounds, Soft Edema: No Labs: CBC, BMP 11/30/17 07:30 11/30/17 07:30 Discharge Summary Reason For Visit: HYPOTENSION SEIZURE EXCESSIVE SWEATING Current Active Problems Diaphoresis (Acute) Hypotension (Acute) Seizure (Acute) Hospital Course: CHIEF COMPLAINT: Hypothermia PCP: Dr. Persaud HISTORY OF PRESENT ILLNESS: 82yo F with PMHx of end stage COPD (s/p tracheostomy, vent dependent) and MDR- UTIs who was brought from [facility] due to hypothermia. She was found to be cold , clammy, and less responsive at around 12:30 today. Vital signs at [facility] were notable for hypothermia (recorded T of 96.4). She was evaluated by Dr Massey who recommended ER evaluation. Pt was suctioned and food aspirate was noted. No cough or difficulty breathing was reported. In the ER, she was afebrile. UA showed pyuria. Given a dose of Meropenem. 2 hrs later, patient began to have a tonic-clonic seizure lasting about 1-2 minutes. Resolved spontaneously. Given 1mg Ativan IV afterwards. Head CT shows possible R pareital infarct vs motion artifact. Recent Travel: None reported PAST MEDICAL HISTORY: Anemia, atrial fibrillation, CHF, cardiac arrest (1998), COPD, s/p trach, vent dependent, UTIs and GI bleeds, CVA, Dementia, Parkinson's , GERD PAST SURGICAL HISTORY: AICD (Medtronic, implanted following cardiac arrest), Cataract Removal (2011) Social History: [facility]. No smoking. No alcohol. No illicit drugs. Allergies: doxycycline Allergy (Intermediate, Verified 11/22/17 17:38 shellfish derived Allergy (Verified 11/22/17 17:38) CLAMS Allergy (Intermediate, Uncoded 11/22/17 17:38) Hives retana Allergy (Uncoded 11/22/17 17:38) hospital: admitted for UTI got meropenem and then had generalized tonic clonic seizure the abx was then changed cefepime and levaquin seen by ENT who does not recommend down sizing trach bc of given underlying trachomalacia puree and nectar thick liquid trial PMV at [place] Condition: Guarded - Instructions Disposition: [facility] - Home Medications Comprehensive Discharge Medication List: Ambulatory Orders Docusate Sodium 300 mg PO HS 10/19/16 Albuterol 0.083% Nebulizer Yady [Ventolin 0.083% Nebulizer Soln -] 1 amp NEB Q4H PRN #180 amp 03/20/17 Apixaban [Eliquis -] 2.5 mg PO BID tablet 03/20/17 Atorvastatin Ca [Lipitor] 10 mg PO HS #30 tablet 03/20/17 Ferrous Sulfate 325 mg PO BID #60 tab 03/20/17 Lactobacillus Acidophilus [Bacid -] 1 tab PO DAILY #30 tab 03/20/17 Loratadine [Claritin -] 10 mg PO DAILY #30 tablet 03/20/17 Mirtazapine [Remeron -] 15 mg PO HS #30 tablet 03/20/17 Multivitamins [Multivit ([facility] Formulary)] 1 tab PO DAILY #30 tab 03/20/17 Metoprolol Tartrate [Lopressor -] 12.5 mg PO BID tablet 05/01/17 Ascorbic Acid/Ascorbate Sodium [Vitamin C 500 mg Wafer] 500 mg PO DAILY Hypromellose 0.5% Opth Soln [Artificial Tears] 1 drop OU BID 05/27/17 Acetaminophen [Tylenol .Regular Strength -] 650 mg PO Q4H PRN tablet 06/02/17 Neomycin/Polymyx/Hc Ophth Susp [Cortisporin *Ophthalmic Suspension* -] 1 drop OU TID drops 06/02/17
== END 2017-11-30 18:32 | DRG 870 ==
LOC: JER 16:56 → UNDOADMOB 11-23 01:38 → OBSVTOIN 11-23 01:38 → INTOOBSV 11-23 01:38 → JERBED 11-23 01:38 → UNDOADMOB 11-23 01:58 → JERBED 11-23 01:58 → OBSVTOIN 11-23 02:36 → JERBED 11-23 02:36 → JICU 11-23 04:50 → J5S 11-23 16:47
PROVIDERS: ADMIT Internal Medicine; ATTEND Family Medicine
PROC: 5A1955Z Respiratory Ventilation, Greater than 96 Consecutive Hours (ICD-10-PCS; principal; 2017-11-22)
DX: A41.9 Sepsis, unspecified organism (principal); J69.0 Pneumonitis due to inhalation of food and vomit; G93.41 Metabolic encephalopathy; N39.0 Urinary tract infection, site not specified; J96.10 Chronic respiratory failure, unspecified whether with hypoxia or hypercapnia; J98.11 Atelectasis; J95.09 Other tracheostomy complication; Z99.11 Dependence on respirator [ventilator] status; E87.2 Acidosis; I11.0 Hypertensive heart disease with heart failure; F03.90 Unspecified dementia, unspecified severity, without behavioral disturbance, psychotic disturbance, mood disturbance, and anxiety; G20 Parkinson's disease; B96.20 Unspecified Escherichia coli [E. coli] as the cause of diseases classified elsewhere; R68.0 Hypothermia, not associated with low environmental temperature; I10 Essential (primary) hypertension; E78.5 Hyperlipidemia, unspecified; K21.9 Gastro-esophageal reflux disease without esophagitis; J44.9 Chronic obstructive pulmonary disease, unspecified; R61 Generalized hyperhidrosis; I48.91 Unspecified atrial fibrillation; R56.9 Unspecified convulsions; T36.1X5A Adverse effect of cephalosporins and other beta-lactam antibiotics, initial encounter; D64.9 Anemia, unspecified; I48.0 Paroxysmal atrial fibrillation; L89.151 Pressure ulcer of sacral region, stage 1; Z93.0 Tracheostomy status; Z95.810 Presence of automatic (implantable) cardiac defibrillator; Z86.73 Personal history of transient ischemic attack (TIA), and cerebral infarction without residual deficits; Z66 Do not resuscitate
CPT/HCPCS: 36415; 70450-TC; 71045-TC-FY; 71250-TC; 74176-TC; 80053; 80061; 81003; 81015; 82272; 82550; 82803; 82962; 83605; 83721; 83735; 84100; 84484; 85025; 85610; 85730; 87040; 87070; 87086; 87186; 87205; 93005; 93010; 93306-TC; 93880-TC; 94002; 94640; 99285-25; J7030; J7620

== ENCOUNTER 2019-07-28 01:25 | Inpatient (IN) | payer OTHER ==
--- NOTE | 2019-07-28 02:10 | PDOC ---
History of Present Illness - General Stated Complaint: ALTERED MENTAL STATUS Time Seen by Provider: 07/28/19 02:09 - History of Present Illness Initial Comments: 07/28/19 02:09 84 yo F PMH end stage COPD (s/p tracheostomy, vent dependent) and MDR-UTIs, sent from [facility] due to AMS. Reportedly less responsive than normal, no longer opening her eyes to voice or responding to painful stimuli like she normally would. Unable to get further history or ROS due to trache and AMS. Past History - Past Medical History Allergies/Adverse Reactions: Allergies Allergy/AdvReac Type Severity Reaction Status Date / Time doxycycline Allergy Intermediate Verified 11/22/17 17:38 shellfish derived Allergy Verified 11/22/17 17:38 CLAMS Allergy Intermediate Hives Uncoded 11/22/17 17:38 retana Allergy Uncoded 11/22/17 17:38 Home Medications: Ambulatory Orders Docusate Sodium 300 mg PO HS 10/19/16 Albuterol 0.083% Nebulizer Yady [Ventolin 0.083% Nebulizer Soln -] 1 amp NEB Q4H PRN #180 amp 03/20/17 Apixaban [Eliquis -] 2.5 mg PO BID tablet 03/20/17 Atorvastatin Ca [Lipitor] 10 mg PO HS #30 tablet 03/20/17 Ferrous Sulfate 325 mg PO BID #60 tab 03/20/17 Lactobacillus Acidophilus [Bacid -] 1 tab PO DAILY #30 tab 03/20/17 Loratadine [Claritin -] 10 mg PO DAILY #30 tablet 03/20/17 Mirtazapine [Remeron -] 15 mg PO HS #30 tablet 03/20/17 Multivitamins [Multivit ([facility] Formulary)] 1 tab PO DAILY #30 tab 03/20/17 Metoprolol Tartrate [Lopressor -] 12.5 mg PO BID tablet 05/01/17 Ascorbic Acid/Ascorbate Sodium [Vitamin C 500 mg Wafer] 500 mg PO DAILY Hypromellose 0.5% Opth Soln [Artificial Tears] 1 drop OU BID 05/27/17 Acetaminophen [Tylenol .Regular Strength -] 650 mg PO Q4H PRN tablet 06/02/17 levoFLOXacin [Levaquin -] 250 mg PO DAILY@0600 #2 tablet MDD 1 05/11/18 Anemia: Yes Asthma: No Cancer: No Cardiac Disorders: Yes (CARDIAC ARREST 1998, afib) CVA: No COPD: Yes CHF: No Dementia: Yes (SHORT TERM MEMORY LOSS) Diabetes: No GI Disorders: No Disorders: No HTN: Yes Hypercholesterolemia: Yes Liver Disease: No Psychiatric Problems: Yes (PANIC DISORDER) Seizures: No Thyroid Disease: No - Surgical History Abdominal Surgery: No Appendectomy: No Cardiac Surgery: Yes (DEFIBRILLATOR) Cholecystectomy: No Lung Surgery: No Neurologic Surgery: No Orthopedic Surgery: No - Immunization History Immunization Up to Date: Yes - Psycho Social/Smoking Cessation Hx Smoking History: Unknown if ever smoked Have you smoked in the past 12 months: No Number of Cigarettes Smoked Daily: 0 Cigars Per Day: 0 Hx Alcohol Use: No Drug/Substance Use Hx: No Substance Use Type: None Hx Substance Use Treatment: No Review of Systems - Review of Systems Able to Perform ROS?: No (AMS) *Physical Exam - Vital Signs Last Vital Signs Temp Pulse Resp BP Pulse Ox 18 07/28/19 01:30 - Physical Exam 07/28/19 04:11 Gen: with tracheostomy on ventilator Neuro: EOMI, PERRLA. Unable to assess cranial nerves. Responds to noxious stimuli, occasionally opens eyes and smiles HEENT: atraumatic, normocephalic, dry mucous membranes Neck: trachea midline, supple CV: regular rate, regular rhythm, no murmurs, rubs, or gallops Pulm: on ventilator, muffled on R side Abd: soft, non-distended, non-tender MSK: intact pulses Extr: no edema, no deformities Skin: warm, dry ED Treatment Course - LABORATORY CBC & Chemistry Diagram: 07/28/19 03:30 07/28/19 03:30 - ADDITIONAL ORDERS Additional order review: Laboratory Results 07/28/19 01:53 POC Glucometer 111 07/28/19 01:53 POC Glucometer 111 Medical Decision Making - Medical Decision Making 07/28/19 03:09 Concern for sepsis, potential ventilator associated infection. - sepsis order set - EKG, CXR - UA/UC - reassess 07/28/19 04:11 WBC 19.6, CXR with R sided infiltrate. VBG with pH 7.14, retaining carbon dioxide. Will admit. 07/28/19 05:24 EKG normal sinus at 68 bpm. Discharge - Discharge Information Problems reviewed: Yes Clinical Impression/Diagnosis: Chronic respiratory failure - Follow up/Referral Referrals: Jacky Cook MD [Primary Care Provider] - - Patient Discharge Instructions - Post Discharge Activity
[2019-07-28 03:39] LABS: EPI CELLS 17.4 /HPF (0-5/HPF); HYALINE CASTS 28 /lpf (0-8); URINE APPEARANCE CLEAR; URINE BACTERIA 931.9 /hpf (NEGATIVE); URINE BILIRUBIN NEGATIVE (NEGATIVE); URINE COLOR YELLOW; URINE GLUCOSE (UA) NEGATIVE (NEGATIVE); URINE KETONE NEGATIVE (NEGATIVE); URINE LEUK ESTERASE NEGATIVE (NEGATIVE); URINE NITRITE NEGATIVE (NEGATIVE); URINE PROTEIN 2+ (NEGATIVE); URINE RBC 1 /hpf (0-4); URINE UROBILINOGEN 0.2 mg/dL (0.2-1.0)
--- NOTE | 2019-07-28 03:45 | PDOC ---
Attending Attestation - Resident Resident Name: Flores Delarosa - ED Attending Attestation I have performed the following: I have examined & evaluated the patient, The case was reviewed & discussed with the resident, I agree w/resident's findings & plan, Exceptions are as noted - HPI HPI: 07/28/19 04:07 82 years old past medical history significant for end-stage COPD status post trach vent dependent, multidrug-resistant UTIs [facility] secondary to altered mental status. History limited from patient patient noted to be hypothermic 96.4 upon arrival - Physicial Exam PE: 07/28/19 04:07 Vitals: Triage Vital signs reviewed General Appearance: No apparent distress, vented Head: Atraumatic, Neck: Supple; no Nucal rigidity Cardiac: Regular rate and rhythym, Lungs: Coarse breath sounds at the bases Abdomen: Normal bowel sounds, non tender to palpation Skin: Warm and dry, no rashes or lesions, no rash, no petechiae - Medical Decision Making 07/28/19 04:08 84 years old presents with altered mental status Patient suctioned IV started ABG notable for CO2 retention mild hypoxia chest x-ray with increased lung markings at the right base given hypothermia CO2 retention hypoxia elevated white blood cell count will admit for likely early sepsis pneumonia Broad-spectrum antibiotics ordered Will admit to medicine for further management.
[2019-07-28 03:51] LABS: BASO % 0.1 % (0-2.0); EOS % 0.4 % (0-4.5); HEMATOCRIT 38.4 % (32.4-45.2); HEMOGLOBIN 12.3 GM/dL (10.7-15.3); LYMPH % 2.3 % (8-40); MCH 28.4 pg (25.7-33.7); MCHC 32.1 g/dl (32.0-36.0); MEAN CELL VOLUME 88.4 fl (80-96); MEAN PLT VOLUME 8.8 fl (7.5-11.1); MONO % 8.3 % (3.8-10.2); NEUT % 88.9 % (42.8-82.8); PLATELET COUNT 163 K/MM3 (134-434); RBC 4.35 M/mm3 (3.60-5.2); RDW 15.5 % (11.6-15.6); WHITE BLOOD COUNT 19.6 K/mm3 (4.0-10.0)
[2019-07-28 03:56] LABS: VENOUS PO2 < 49 mmHg (28-48)
[2019-07-28 03:58] LABS: VENOUS PC02 > 100 mmHg (38-52); VENOUS PH 7.14 (7.31-7.41)
[2019-07-28] MEDS ORDERED: PIPERACILLIN/TAZOB 3.375 GM 3.375 GM in DEXTROSE 5%-WATER - 50 ML IVPB ONE (04:08)
[2019-07-28 04:09] LABS: INR 1.18 (0.83-1.09); PROTHROMBIN TIME (PATIENT) 13.9 SEC (9.7-13.0)
[2019-07-28] MEDS ORDERED: VANCOMYCIN 1,000 MG in DEXTROSE 5%-WATER - 250 ML IVPB ONE (04:09)
[2019-07-28 04:11] LABS: ACTIVATED PTT 34.2 SECONDS (25.2-36.5)
[2019-07-28 04:20] LABS: ALBUMIN 3.3 g/dl (3.4-5.0); BILIRUBIN,TOTAL 0.2 mg/dL (0.2-1); BLOOD UREA NITROGEN 15.8 mg/dL (7-18); CALCIUM 8.9 mg/dL (8.5-10.1); CREATININE 0.8 mg/dL (0.55-1.3); POTASSIUM 4.6 mmol/L (3.5-5.1); TOT PROT 7.5 g/dl (6.4-8.2)
[2019-07-28] MEDS ORDERED: PIPERACILLIN/TAZOB 3.375 GM 3.375 GM/50 ML BAG IVPB ONE ×3 (04:43→18:12)
[2019-07-28] MEDS ORDERED: VANCOMYCIN 1 GRAM (PRE-DOCKED) 1,000 MG/250 ML BAG IVPB ONE (05:29)
[2019-07-28] MEDS ORDERED: SODIUM CHLORIDE IV ONE (06:01)
--- NOTE | 2019-07-28 06:11 | HP ---
Admitting History and Physical - Primary Care Physician PCP: August Panchal ([facility]) - Admission Chief Complaint: AMS History of Present Illness: This is a 84 y/o woman from [facility] with a pMHx of Chronic Respiratory failure , s/p Trach vent-dependent, COPD, CAD- s/p PM, HTN, HLD, DM, Anemia. Who presents to the ED via ambulance for AMS. Per [place] records patient is less responsive than baseline, no longer opening her eyes to voice or responding to painful stimuli like she normally would. ED course was noted for: (1) Chest Xray image- RLL Infiltrate (2) ABG- 7.33/61.6/146/31.9/98.8 (3) WBC 19.6, Neutrophils 88.9 History Source: Transfer Record Limitations to Obtaining History: Clinical Condition, Dementia - Past Medical History [employer]: Yes: CVA, Dementia, Parkinson's Cardiovascular: Yes: AFIB (Paroxysmal), CHF, HTN, Hyperlipdemia, Other (h/o cardiac arrest s/p AICD - Single lead) Pulmonary: Yes: COPD, O2 Dependent, Other (respiratory failure) Gastrointestinal: Yes: GERD Heme/Onc: Yes: Anemia - Past Surgical History Past Surgical History: Yes: AICD (Medtronic, implanted following cardiac arrest) , Cataract Removal (2011) - Smoking History Smoking history: Unknown if ever smoked Have you smoked in the past 12 months: No Aproximately how many cigarettes per day: 0 - Alcohol/Substance Use Hx Alcohol Use: No History of Substance Use: reports: None - Social History Usual Living Arrangement: Yes: Senior Care ADL: Support Services History of Recent Travel: No Home Medications - Allergies Allergies/Adverse Reactions: Allergies Allergy/AdvReac Type Severity Reaction Status Date / Time doxycycline Allergy Intermediate Verified 11/22/17 17:38 meropenem Allergy Verified 07/28/19 06:36 shellfish derived Allergy Verified 11/22/17 17:38 CLAMS Allergy Intermediate Hives Uncoded 11/22/17 17:38 retana Allergy Uncoded 11/22/17 17:38 - Home Medications Home Medications: Ambulatory Orders Acetaminophen [Tylenol] 325 mg PO Q6H 07/28/19 Apixaban [Eliquis] 2.5 mg PO BID 07/28/19 Ascorbic Acid [Vitamin C] 500 mg PO DAILY 07/28/19 Atorvastatin Ca [Lipitor] 10 mg PO HS 07/28/19 Docusate Liquid [Colace Liquid -] 50 mg PO DAILY 07/28/19 Ferrous Sulfate 325 mg PO BID 07/28/19 Furosemide 20 mg PO DAILY 07/28/19 Loratadine 10 mg PO DAILY 07/28/19 Metoprolol Tartrate [Lopressor -] 12.5 mg PO BID 07/28/19 Family Medical History Family History: Unable to Obtain Review of Systems Unable to obtain ROS, reason: Trach- Vent, Dementia Physical Examination Vital Signs: Vital Signs Temperature 97.3 F L 07/28/19 02:00 Pulse Rate 71 07/28/19 03:25 Respiratory Rate 14 07/28/19 03:25 Blood Pressure 104/66 07/28/19 03:25 O2 Sat by Pulse Oximetry (%) 100 07/28/19 05:00 Constitutional: Yes: Mild Distress, Other (lethargy) Eyes: Yes: Conjunctiva Clear, PERRL HENT: Yes: WNL, Atraumatic, Normocephalic Neck: Yes: Other (trach- vent) Cardiovascular: Yes: Regular Rate and Rhythm, S1, S2 Respiratory: Yes: Diminished, Rhonchi, Wheezes, Other (trach-vent) Gastrointestinal: Yes: Normal Bowel Sounds, Soft Renal/: Yes: Incontinence Breast(s): Yes: WNL Musculoskeletal: Yes: WNL Edema: No Peripheral Pulses WNL: Yes Neurological: Yes: Lethargy Labs: CBC, BMP 07/28/19 03:30 07/28/19 03:30 Laboratory Results - last 24 hr 07/28/19 07/28/19 07/28/19 01:53 03:15 03:30 WBC RBC Hgb Hct MCV MCH MCHC RDW Plt Count MPV Absolute Neuts (auto) Neutrophils % Lymphocytes % Monocytes % Eosinophils % Basophils % Nucleated RBC % PT with INR 13.90 H INR 1.18 H PTT (Actin FS) 34.2 VBG pH POC VBG pCO2 POC VBG pO2 VBG HCO3 VBG O2 Sat (Gianfranco) VBG Base Excess Sodium Potassium Chloride Carbon Dioxide Anion Gap BUN Creatinine Est GFR (CKD-EPI)AfAm Est GFR (CKD-EPI)NonAf POC Glucometer 111 Random Glucose Lactic Acid Calcium Total Bilirubin AST ALT Alkaline Phosphatase Troponin I Total Protein Albumin Urine Color Yellow Urine Appearance Clear Urine pH 6.0 D Ur Specific [place] 1.013 Urine Protein 2+ H Urine Glucose (UA) Negative Urine Ketones Negative Urine Blood Negative Urine Nitrite Negative Urine Bilirubin Negative Urine Urobilinogen 0.2 Ur Leukocyte Esterase Negative Urine RBC (Auto) 1 Urine Casts (Auto) 28 U Epithel Cells (Auto) 17.4 Urine Bacteria (Auto) 931.9 Influenza A (Rapid) Influenza B (Rapid) Blood Type Antibody Screen 07/28/19 07/28/19 07/28/19 03:30 03:30 03:30 WBC 19.6 H RBC 4.35 Hgb 12.3 Hct 38.4 D MCV 88.4 MCH 28.4 MCHC 32.1 RDW 15.5 Plt Count 163 D MPV 8.8 Absolute Neuts (auto) 17.4 H Neutrophils % 88.9 H D Lymphocytes % 2.3 L D Monocytes % 8.3 Eosinophils % 0.4 D Basophils % 0.1 Nucleated RBC % 0 PT with INR INR PTT (Actin FS) VBG pH POC VBG pCO2 POC VBG pO2 VBG HCO3 VBG O2 Sat (Gianfranco) VBG Base Excess Sodium 141 Potassium 4.6 Chloride 101 Carbon Dioxide 34 H Anion Gap 5 L BUN 15.8 Creatinine 0.8 Est GFR (CKD-EPI)AfAm 79.02 Est GFR (CKD-EPI)NonAf 68.18 POC Glucometer Random Glucose 102 Lactic Acid Calcium 8.9 Total Bilirubin 0.2 AST 122 H ALT 132 H Alkaline Phosphatase 201 H Troponin I 0.02 Total Protein 7.5 Albumin 3.3 L Urine Color Urine Appearance Urine pH Ur Specific [place] Urine Protein Urine Glucose (UA) Urine Ketones Urine Blood Urine Nitrite Urine Bilirubin Urine Urobilinogen Ur Leukocyte Esterase Urine RBC (Auto) Urine Casts (Auto) U Epithel Cells (Auto) Urine Bacteria (Auto) Influenza A (Rapid) Influenza B (Rapid) Blood Type Antibody Screen 07/28/19 07/28/19 07/28/19 03:30 03:30 03:30 WBC RBC Hgb Hct MCV MCH MCHC RDW Plt Count MPV Absolute Neuts (auto) Neutrophils % Lymphocytes % Monocytes % Eosinophils % Basophils % Nucleated RBC % PT with INR INR PTT (Actin FS) VBG pH 7.14 L* POC VBG pCO2 > 100 H* POC VBG pO2 < 49 H VBG HCO3 No Result Required. VBG O2 Sat (Gianfranco) 48.7 L VBG Base Excess No Result Required. Sodium Potassium Chloride Carbon Dioxide Anion Gap BUN Creatinine Est GFR (CKD-EPI)AfAm Est GFR (CKD-EPI)NonAf POC Glucometer Random Glucose Lactic Acid 1.9 Calcium Total Bilirubin AST ALT Alkaline Phosphatase Troponin I Total Protein Albumin Urine Color Urine Appearance Urine pH Ur Specific [place] Urine Protein Urine Glucose (UA) Urine Ketones Urine Blood Urine Nitrite Urine Bilirubin Urine Urobilinogen Ur Leukocyte Esterase Urine RBC (Auto) Urine Casts (Auto) U Epithel Cells (Auto) Urine Bacteria (Auto) Influenza A (Rapid) Influenza B (Rapid) Blood Type A POSITIVE Antibody Screen Negative 07/28/19 03:30 WBC RBC Hgb Hct MCV MCH MCHC RDW Plt Count MPV Absolute Neuts (auto) Neutrophils % Lymphocytes % Monocytes % Eosinophils % Basophils % Nucleated RBC % PT with INR INR PTT (Actin FS) VBG pH POC VBG pCO2 POC VBG pO2 VBG HCO3 VBG O2 Sat (Gianfranco) VBG Base Excess Sodium Potassium Chloride Carbon Dioxide Anion Gap BUN Creatinine Est GFR (CKD-EPI)AfAm Est GFR (CKD-EPI)NonAf POC Glucometer Random Glucose Lactic Acid Calcium Total Bilirubin AST ALT Alkaline Phosphatase Troponin I Total Protein Albumin Urine Color Urine Appearance Urine pH Ur Specific [place] Urine Protein Urine Glucose (UA) Urine Ketones Urine Blood Urine Nitrite Urine Bilirubin Urine Urobilinogen Ur Leukocyte Esterase Urine RBC (Auto) Urine Casts (Auto) U Epithel Cells (Auto) Urine Bacteria (Auto) Influenza A (Rapid) Negative Influenza B (Rapid) Negative Blood Type Antibody Screen Intake & Output 07/25/19 07/26/19 07/27/19 07/28/19 23:59 23:59 23:59 23:59 Weight 45 kg Imaging - Results Chest X-ray: Image Reviewed EKG: Image Reviewed Problem List - Problems (1) Pneumonia Assessment/Plan: Will treat for HAP vs VAP CURB65 Score 3 Blood Cultures-pending Urine Culture-pending Sputum Culture-pending Urine Legionella WBC 19.6 Chest Xray image- RLL Vancomycin and Zosyn given in ED Will continue Vancomycin Meropenem, Doxycyline allergy Appreciate ID consult Appreciate Pulmonology consult Monitor vent settings Monitor CBC, BMP Maintain MAP>65 Aspiration Precautions Code(s): J18.9 - PNEUMONIA, UNSPECIFIED ORGANISM Qualifiers: (2) Acute and chronic respiratory failure with hypercapnia Assessment/Plan: Likely secondary to HAP Chest Xray image- RLL ABG- 7.33/61.6/146/31.9/98.8 Will adjust vent settings accordingly Appreciate Pulm Consult Duonebs Aspiration Precautions Code(s): J96.22 - ACUTE AND CHRONIC RESPIRATORY FAILURE WITH HYPERCAPNIA (3) Acute metabolic encephalopathy Assessment/Plan: Likely secondary to Pneumonia vs Chronic Respiratory Distress Neurochecks Fall Precautions Code(s): G93.41 - METABOLIC ENCEPHALOPATHY (4) Leukocytosis Assessment/Plan: Likely secondary to Pneumonia Monitor CBC Monitor vitals Code(s): D72.829 - ELEVATED WHITE BLOOD CELL COUNT, UNSPECIFIED (5) COPD (chronic obstructive pulmonary disease) Assessment/Plan: Monitor vent settings Continue home meds Appreciate Pulm consult Code(s): J44.9 - CHRONIC OBSTRUCTIVE PULMONARY DISEASE, UNSPECIFIED (6) Transaminitis Assessment/Plan: Monitor LFTs Avoid hepatotoxic drugs ABD US Consider GI consult if condition worsens Code(s): R74.0 - NONSPEC ELEV OF LEVELS OF TRANSAMNS & LACTIC ACID DEHYDRGNSE (7) HTN (hypertension) Assessment/Plan: stable Monitor BP Hold meds secondary to soft BP Code(s): I10 - ESSENTIAL (PRIMARY) HYPERTENSION (8) Anemia Assessment/Plan: Stable Hgb 12.3 Monitor CBC Will transfuse if Hgb < 7.0 Code(s): D64.9 - ANEMIA, UNSPECIFIED (9) A-fib Assessment/Plan: EKG- NSR, anteroseptal infarct, age undetermined [id number] Continue Eliquis renal dosing Code(s): I48.91 - UNSPECIFIED ATRIAL FIBRILLATION (10) Seizure Assessment/Plan: stable No seizure activity No home meds listed Seizure Precautions Neuro checks Code(s): R56.9 - UNSPECIFIED CONVULSIONS (11) Hyperlipemia Assessment/Plan: Will hold Atorvastatin secondary to Transaminitis Monitor LFTs Code(s): E78.5 - HYPERLIPIDEMIA, UNSPECIFIED (12) AICD (automatic cardioverter/defibrillator) present Code(s): Z95.810 - PRESENCE OF AUTOMATIC (IMPLANTABLE) CARDIAC DEFIBRILLATOR (13) Functional quadriplegia Assessment/Plan: complete immobility due to fraility, end stage Dementia Requires total care Turn Q2h Rosario Lift as needed Heel protectors Fall Precautions Code(s): R53.2 - FUNCTIONAL QUADRIPLEGIA Assessment/Plan This is a 84 y/o woman from [facility] with a pMHx of Chronic Respiratory failure , s/p Trach vent dependent, COPD, CAD- s/p PM, HTN, HLD, DM, Anemia. Admitted for Acute on Chronic Respiratory Failure with Hypoxia, and Hypercapnia, Pneumonia, Metabolic Encephalopathy, Transaminitis for further evaluation of their emergent condition. Plan: See Problem List FEN Replete lytes prn NPO DVT ppx SCDs TEDs Eliquis Code Status: MOLST, DNR Dispo: Requires Inpatient Care Visit type - Emergency Visit Emergency Visit: Yes ED Registration Date: 07/28/19 Care time: The patient presented to the Emergency Department on the above date and was hospitalized for further evaluation of their emergent condition. - New Patient This patient is new to me today: Yes Date on this admission: 07/28/19 - Critical Care Critical Care patient: No
[2019-07-28 06:18] LABS: URINE CRYSTALS AMORPHOUS URATES /hpf
[2019-07-28 06:19] LABS: ARTERIAL BLD GAS O2 SATURATION 98.8 % (95-98); ARTERIAL BLOOD GAS PCO2 61.6 mmHg (35-45); ARTERIAL BLOOD GAS PO2 146 mmHg (80-100); ARTERIAL BLOOD GAS pH 7.33 (7.35-7.45); CARBOXYHEMOGLOBIN 0.6 % (0-2)
[2019-07-28 06:20] LABS: ALLENS TEST POSITIVE
[2019-07-28 06:54] LABS: URINE WBC 5 /hpf (0-5)
--- NOTE | 2019-07-28 09:36 | PN ---
Progress Note, Physician - Current Medication List Current Medications: Active Medications Vancomycin HCl 1,000 mg/ (Dextrose) 250 mls @ 166.667 mls/hr IVPB Q12H BREANN; Protocol - Objective Vital Signs: Vital Signs Temperature 97.1 F L 07/28/19 07:52 Pulse Rate 60 07/28/19 07:52 Respiratory Rate 16 07/28/19 06:06 Blood Pressure 110/80 07/28/19 07:52 O2 Sat by Pulse Oximetry (%) 100 07/28/19 07:52 Cardiovascular: Yes: S1, S2 Respiratory: Yes: Mechanically Ventilated Gastrointestinal: Yes: Normal Bowel Sounds, Soft Labs: CBC, BMP 07/28/19 03:30 07/28/19 03:30 INR, PTT INR 1.18 (0.83-1.09) H 07/28/19 03:30 Problem List - Problems (1) Pneumonia Assessment/Plan: WBC 19.6 Chest Xray image- RLL Vancomycin and Zosyn given in ED Appreciate ID consult Appreciate Pulmonology consult Monitor vent settings Monitor CBC, BMP Maintain MAP>65 Aspiration Precautions Code(s): J18.9 - PNEUMONIA, UNSPECIFIED ORGANISM Qualifiers: (2) Acute and chronic respiratory failure with hypercapnia Assessment/Plan: Likely secondary to HAP Chest Xray image- RLL ABG- 7.33/61.6/146/31.9/98.8 Will adjust vent settings accordingly Appreciate Pulm Consult Mablebs Aspiration Precautions Code(s): J96.22 - ACUTE AND CHRONIC RESPIRATORY FAILURE WITH HYPERCAPNIA (3) A-fib Assessment/Plan: EKG- NSR, anteroseptal infarct, age undetermined [id number] Continue Eliquis renal dosing Code(s): I48.91 - UNSPECIFIED ATRIAL FIBRILLATION (4) AICD (automatic cardioverter/defibrillator) present Code(s): Z95.810 - PRESENCE OF AUTOMATIC (IMPLANTABLE) CARDIAC DEFIBRILLATOR (5) Anemia Assessment/Plan: Stable Hgb 12.3 Monitor CBC Will transfuse if Hgb < 7.0 Code(s): D64.9 - ANEMIA, UNSPECIFIED (6) Sepsis Assessment/Plan: Likely secondary to Pneumonia vs Chronic Respiratory Distress Monitor CBC Monitor vitals Code(s): A41.9 - SEPSIS, UNSPECIFIED ORGANISM (7) Transaminitis Assessment/Plan: Monitor LFTs Avoid hepatotoxic drugs ABD Code(s): R74.0 - NONSPEC ELEV OF LEVELS OF TRANSAMNS & LACTIC ACID DEHYDRGNSE (8) Functional quadriplegia Assessment/Plan: complete immobility due to fraility, end stage Dementia Requires total care Turn Q2h Rosario Lift as needed Heel protectors Fall Precautions Code(s): R53.2 - FUNCTIONAL QUADRIPLEGIA (9) Seizure Assessment/Plan: stable No seizure activity No home meds listed Seizure Precautions Neuro checks Code(s): R56.9 - UNSPECIFIED CONVULSIONS
[2019-07-28] MEDS ORDERED: HEPARIN NA (PORCINE) 5,000 UNITS/ML 1ML VIAL SQ SCH (10:00)
--- NOTE | 2019-07-28 10:06 | EKG ---
Test Reason : Blood Pressure : / mmHG Vent. Rate : 068 BPM Atrial Rate : 068 BPM P-R Int : 160 ms QRS Dur : 084 ms QT Int : 472 ms P-R-T Axes : 094 033 084 degrees QTc Int : 501 ms NORMAL SINUS RHYTHM ANTEROSEPTAL INFARCT (CITED ON OR BEFORE 15-APR-2016) ABNORMAL ECG WHEN COMPARED WITH ECG OF 23-NOV-2017 00:55, T WAVE VARIATION Confirmed by KAVEH GOMEZ, NIKHIL ([id number]) on 07/28/2019 10:06:01 AM Referred By: Confirmed By:NIKHIL LINN MD
[2019-07-28] MEDS ORDERED: PIPERACILLIN/TAZOB 4.5 GM 4.5 GM in DEXTROSE 5%-WATER 100 ML IVPB SCH (12:00)
--- NOTE | 2019-07-28 13:43 | CON.PULM ---
Consult Consult Specialty:: PULM/CCM Referred by:: NICOLE Reason for Consultation:: Respiratory Failure - History of Present Illness Chief Complaint: AMS History of Present Illness: 84 F, Chronic Respiratory failure, s/p Trach vent-dependent, COPD, CAD, s/p PPM , HTN, HLD, DM, and Anemia. Admitted via the ER due to AMS. Patient is not able to provide any history due to AMS and Respiratory Failure. Her son is at the bedside. CXR: Possible early infiltrate RLL. 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 No: Asthma, Bronchitis, Pulmonary Embolus, Pulmonary Fibrosis, Sleep Apnea Gastrointestinal: Yes: GERD - Past Surgical History Past Surgical History: Yes: AICD (Medtr[employer], implanted following cardiac arrest) , Cataract Removal (2011) - Alcohol/Substance Use Hx Alcohol Use: No History of Substance Use: reports: None - Smoking History Smoking history: Unknown if ever smoked Have you smoked in the past 12 months: No Aproximately how many cigarettes per day: 0 - Social History Usual Living Arrangement: Snf ADL: Support Services History of Recent Travel: No Home Medications - Allergies Allergies/Adverse Reactions: Allergies Allergy/AdvReac Type Severity Reaction Status Date / Time doxycycline Allergy Intermediate Verified 11/22/17 17:38 meropenem Allergy Verified 07/28/19 06:36 shellfish derived Allergy Verified 11/22/17 17:38 CLAMS Allergy Intermediate Hives Uncoded 11/22/17 17:38 retana Allergy Uncoded 11/22/17 17:38 - Home Medications Home Medications: Ambulatory Orders Acetaminophen [Tylenol] 325 mg PO Q6H 07/28/19 Apixaban [Eliquis] 2.5 mg PO BID 07/28/19 Ascorbic Acid [Vitamin C] 500 mg PO DAILY 07/28/19 Atorvastatin Ca [Lipitor] 10 mg PO HS 07/28/19 Docusate Liquid [Colace Liquid -] 50 mg PO DAILY 07/28/19 Ferrous Sulfate 325 mg PO BID 07/28/19 Furosemide 20 mg PO DAILY 07/28/19 Loratadine 10 mg PO DAILY 07/28/19 Metoprolol Tartrate [Lopressor -] 12.5 mg PO BID 07/28/19 Review of Systems Unable to obtain ROS, reason: not able to provide Physical Exam Vital Sings: Vital Signs Temperature 97.1 F L 07/28/19 07:52 Pulse Rate 69 07/28/19 12:35 Respiratory Rate 14 07/28/19 12:35 Blood Pressure 112/57 L 07/28/19 12:35 O2 Sat by Pulse Oximetry (%) 100 07/28/19 10:24 Constitutional: Yes: No Distress, Other (Lethargic ) Eyes: Yes: Conjunctiva Clear HENT: Yes: Atraumatic, Normocephalic Neck: Yes: Trachea Midline, Other (Trach intact ) Cardiovascular: Yes: Regular Rate and Rhythm Respiratory: Yes: Diminished, Mechanically Ventilated, Rhonchi. No: Rales, Stridor, Tachypnea, Wheezes ...Inspection: Yes: WNL ...Clubbing: No Gastrointestinal: Yes: Normal Bowel Sounds, Soft Musculoskeletal: Yes: WNL Edema: No Peripheral Pulses WNL: Yes Integumentary: Yes: WNL Neurological: Yes: Other (Poorly responsive ) Labs: CBC, BMP 07/28/19 03:30 07/28/19 03:30 ABG Results ABG pH 7.33 (7.35-7.45) L 07/28/19 06:02 ABG pCO2 at Pt Temp 61.6 mmHg (35-45) H 07/28/19 06:02 ABG pO2 at Pt Temp 146 mmHg (80-100) H 07/28/19 06:02 ABG HCO3 31.9 mmol/L (22-27) H 07/28/19 06:02 ABG O2 Sat (Measured) 98.8 % (95-98) H 07/28/19 06:02 ABG O2 Content 15.8 % vol 07/28/19 06:02 ABG Base Excess 5.0 meq/l (-2-2) H 07/28/19 06:02 Imaging - Results Chest X-ray: Report Reviewed, Image Reviewed Problem List - Problems (1) A-fib Code(s): I48.91 - UNSPECIFIED ATRIAL FIBRILLATION (2) Acute metabolic encephalopathy Code(s): G93.41 - METABOLIC ENCEPHALOPATHY (3) Chronic respiratory failure Code(s): J96.10 - CHRONIC RESPIRATORY FAILURE, UNSP W HYPOXIA OR HYPERCAPNIA (4) Lethargy Code(s): R53.83 - OTHER FATIGUE (5) Transaminitis Code(s): R74.0 - NONSPEC ELEV OF LEVELS OF TRANSAMNS & LACTIC ACID DEHYDRGNSE (6) AICD (automatic cardioverter/defibrillator) present Code(s): Z95.810 - PRESENCE OF AUTOMATIC (IMPLANTABLE) CARDIAC DEFIBRILLATOR (7) Acute and chronic respiratory failure with hypercapnia Code(s): J96.22 - ACUTE AND CHRONIC RESPIRATORY FAILURE WITH HYPERCAPNIA (8) Altered mental status Code(s): R41.82 - ALTERED MENTAL STATUS, UNSPECIFIED (9) Anemia Code(s): D64.9 - ANEMIA, UNSPECIFIED (10) Atelectasis Code(s): J98.11 - ATELECTASIS (11) COPD (chronic obstructive pulmonary disease) Code(s): J44.9 - CHRONIC OBSTRUCTIVE PULMONARY DISEASE, UNSPECIFIED (12) HTN (hypertension) Code(s): I10 - ESSENTIAL (PRIMARY) HYPERTENSION (13) PAF (paroxysmal atrial fibrillation) Code(s): I48.0 - PAROXYSMAL ATRIAL FIBRILLATION (14) Pneumonia Code(s): J18.9 - PNEUMONIA, UNSPECIFIED ORGANISM Qualifiers: (15) Respirator dependence Code(s): Z99.11 - DEPENDENCE ON RESPIRATOR [VENTILATOR] STATUS (16) Seizure Code(s): R56.9 - UNSPECIFIED CONVULSIONS Assessment/Plan Noted ID evaluation called for ABX coverage AC Mode of vent: settings were adjusted [place]-culture VTE prophylaxis Follow CXR BD TX PRN No clear indication for systemic steroids Will follow Thank you. Dr Medina
--- NOTE | 2019-07-28 14:46 | PN ---
Progress Note (short form) - Note Progress Note: ID consult dictated imp/reccd pneumonia leukocytosis chronic resp failure multiple antibiotic allergies d/w son at bedside zosyn to continue f/u cultures check urinary antigens Problem List - Problems (1) Pneumonia Code(s): J18.9 - PNEUMONIA, UNSPECIFIED ORGANISM Qualifiers: (2) Leukocytosis Code(s): D72.829 - ELEVATED WHITE BLOOD CELL COUNT, UNSPECIFIED (3) Chronic respiratory failure Code(s): J96.10 - CHRONIC RESPIRATORY FAILURE, UNSP W HYPOXIA OR HYPERCAPNIA (4) Allergy to multiple antibiotics Code(s): Z88.1 - ALLERGY STATUS TO OTHER ANTIBIOTIC AGENTS STATUS
[2019-07-28] MEDS: PIPERACILLIN/TAZOB 3.375 GM 3.375 GM in DEXTROSE 5%-WATER - 50 ML IVPB SCH ×2 (15:19→18:16)
--- NOTE | 2019-07-28 16:36 | CONS ---
INFECTIOUS DISEASE CONSULTATION DATE OF CONSULTATION: DATE OF DICTATION: 07/28/2019 REQUESTING PHYSICIAN: Jacky Cook MD HISTORY: This is an 84-year-old woman. History is partially from her son. She is a longstanding resident of [facility] where she has a history of chronic respiratory failure. She is status post tracheostomy and is ventilator dependent. She was sent to the hospital with lethargy. Normally at baseline she is alert. She was evaluated in the ER where she was noted to be hypercapnic. Question of right lower lobe infiltrate was raised. She was noted to have elevated LFTs and elevated white count. She was given vancomycin and Zosyn. I am asked to see her for further recommendations. Her son is at her bedside, but he is unaware of any of her prior allergies. She is allergic to DOXYCYCLINE, SHELLFISH, CLAMS, and POPE and apparently MEROPENEM. The MEROPENEM allergy was apparently 2018. She had a seizure. It is unclear whether it was related to the Carbapenem. Of note, she has not been in the hospital since November of 2017, she has not been hospitalized for over a year and a half. PAST MEDICAL HISTORY: Notable for CVA, dementia, Parkinson disease, atrial fibrillation, CHF, hypertension, hyperlipidemia. She is status post cardiac arrest, and she has an AICD. She has a history of COPD and is on a ventilator. She has a history of GERD and anemia. She has a past medical history as well of diastolic heart failure. SURGICAL HISTORY: Notable for any ICD as well as cataract removal. SOCIAL HISTORY: [facility] MEDICATIONS: [facility] at the jail include metoprolol, loratadine, furosemide, Feosol, ferrous sulfate, Colace, Lipitor, vitamin C, Eliquis. REVIEW OF SYSTEMS: Unremarkable, per the son. PHYSICAL EXAMINATION: Vital Signs: Her temperature is 97.1, her pulse is 69, blood pressure 112/57, respiratory rate 14 tracheostomy to ventilator. General: Per son, she does not have a G-tube. She is now alert. She denies any abdominal pain or chest pain. HEENT: She is normocephalic. Her eyes are anicteric. Neck: Supple. Lungs: Clear to auscultation. Heart: Regular rate and rhythm. Abdomen: Soft, nontender. Extremities: Without edema. DIAGNOSTIC DATA: White count is 19.6, hemoglobin 12.3, platelets 163. BUN 15, creatinine 0.8. LFTs are elevated with an AST of 122, ALT 132, alkaline phosphatase 201. Urinalysis is negative. She was given vancomycin and Zosyn in the emergency room. Influenza screen was sent, and blood cultures were sent. She had a chest x-ray done in the ER. In summary, this is an elderly 84-year-old woman with: 1. Chronic respiratory failure [facility] the jail with leukocytosis, possible early right lower lobe infiltrate consistent with aspiration in this setting. She received a dose of vancomycin in the ER. Would continue Zosyn at this time while awaiting results of the cultures. 2. Chronic respiratory failure. Further recommendations to follow. RAGHAVENDRA VALENTINO M.D. [id number]
[2019-07-28] MEDS ORDERED: VANCOMYCIN 1,000 MG in DEXTROSE 5%-WATER - 250 ML IVPB SCH (17:00)
[2019-07-29] MEDS ORDERED: PIPERACILLIN/TAZOBACTAM 3.375 GM VIAL IVPB ONE ×3 (02:36→17:34)
[2019-07-29] MEDS ORDERED: DEXTROSE 5%-WATER - 50 ML IVPB ONE ×3 (02:36→17:34)
[2019-07-29] MEDS: PIPERACILLIN/TAZOB 3.375 GM 3.375 GM in DEXTROSE 5%-WATER - 50 ML IVPB SCH ×3 (02:51→17:42)
[2019-07-29 08:57] LABS: BLOOD UREA NITROGEN 18.3 mg/dL (7-18); CALCIUM 8.6 mg/dL (8.5-10.1); CREATININE 0.7 mg/dL (0.55-1.3); POTASSIUM 4.2 mmol/L (3.5-5.1)
[2019-07-29 10:18] LABS: BASO % 0.3 % (0-2.0); EOS % 1.7 % (0-4.5); HEMATOCRIT 35.6 % (32.4-45.2); HEMOGLOBIN 11.4 GM/dL (10.7-15.3); LYMPH % 6.5 % (8-40); MCH 28.1 pg (25.7-33.7); MCHC 31.9 g/dl (32.0-36.0); MEAN CELL VOLUME 88.1 fl (80-96); MONO % 8.3 % (3.8-10.2); NEUT % 83.2 % (42.8-82.8); PLATELET COUNT 126 K/MM3 (134-434); RBC 4.04 M/mm3 (3.60-5.2); RDW 15.6 % (11.6-15.6); WHITE BLOOD COUNT 11.3 K/mm3 (4.0-10.0)
--- NOTE | 2019-07-29 10:48 | PN ---
Progress Note, Physician Chief Complaint: AMS Pneumonia History of Present Illness: NAD mechanical vent CXR R base pne Started on IV abx Son at bedside Pt awake and alert, knows she is in the hospital - Current Medication List Current Medications: Active Medications Apixaban (Eliquis -) 2.5 mg GT BID [facility] Atorvastatin Calcium (Lipitor -) 10 mg PO HS [facility] Docusate Sodium (Colace Liquid -) 50 mg GT DAILY [facility] Furosemide (Lasix -) 20 mg GT DAILY [facility] Piperacillin Sod/Tazobactam (Sod 3.375 gm/ Dextrose) 50 mls @ 100 mls/hr IVPB Q8H-IV [facility]; Protocol Last Admin: 07/29/19 10:30 Dose: 100 mls/hr Metoprolol Tartrate (Lopressor -) 12.5 mg GT BID [facility] Non-Formulary Medication (Acetaminophen [Tylenol]) 325 mg GT Q6H [facility] Non-Formulary Medication (Ascorbic Acid [Vitamin C]) 500 mg GT DAILY [facility] Non-Formulary Medication (Ferrous Sulfate [Ferrous Sulfate]) 325 mg GT BID [facility] Non-Formulary Medication (Loratadine [Loratadine]) 10 mg GT DAILY [facility] - Objective Vital Signs: Vital Signs Temperature 98.7 F 07/29/19 06:00 Pulse Rate 95 H 07/29/19 06:00 Respiratory Rate 14 07/29/19 08:51 Blood Pressure 159/73 07/29/19 06:00 O2 Sat by Pulse Oximetry (%) 98 07/29/19 02:00 Constitutional: Yes: No Distress, Calm, Cachectic Cardiovascular: Yes: Regular Rate and Rhythm Respiratory: Yes: Mechanically Ventilated Gastrointestinal: Yes: Normal Bowel Sounds, Soft Genitourinary: Yes: Incontinence Musculoskeletal: Yes: Other (generalized atrophy) Extremities: Yes: WNL Edema: No Peripheral Pulses WNL: Yes Neurological: Yes: Alert, Oriented Psychiatric: Yes: Alert, Oriented Labs: CBC, BMP 07/29/19 09:35 07/29/19 07:00 INR, PTT INR 1.18 (0.83-1.09) H 07/28/19 03:30 Problem List - Problems (1) A-fib Assessment/Plan: -Continue Eliquis Problems reviewed: Yes Code(s): I48.91 - UNSPECIFIED ATRIAL FIBRILLATION (2) Acute metabolic encephalopathy Problems reviewed: Yes Code(s): G93.41 - METABOLIC ENCEPHALOPATHY (3) Chronic respiratory failure Assessment/Plan: -Pulmonary on board -IV abx -Bronchodilators Problems reviewed: Yes Code(s): J96.10 - CHRONIC RESPIRATORY FAILURE, UNSP W HYPOXIA OR HYPERCAPNIA (4) AICD (automatic cardioverter/defibrillator) present Problems reviewed: Yes Code(s): Z95.810 - PRESENCE OF AUTOMATIC (IMPLANTABLE) CARDIAC DEFIBRILLATOR (5) Altered mental status Assessment/Plan: -Resolved -likely 2/2 to acute infection Problems reviewed: Yes Code(s): R41.82 - ALTERED MENTAL STATUS, UNSPECIFIED (6) Functional quadriplegia Problems reviewed: Yes Code(s): R53.2 - FUNCTIONAL QUADRIPLEGIA (7) Pneumonia Assessment/Plan: -RLL -Speech therapy to evaluate swallow for possible aspiration -ID consult -Pulmonary consult -IV abx -Bronchodilators -Leukocytosis improved -Afebrile Problems reviewed: Yes Code(s): J18.9 - PNEUMONIA, UNSPECIFIED ORGANISM Qualifiers: (8) Bacteremia Assessment/Plan: -Cultures: Microbiology 07/28/19 03:15 Urine - Urine Clean Catch Urine Culture - Preliminary Group D Strep Or Entero Coccus 07/28/19 03:30 Blood - Peripheral Venous Blood Culture - Preliminary NO GROWTH OBTAINED AFTER 24 HOURS, INCUBATION TO CONTINUE FOR 4 DAYS. 07/28/19 03:30 Blood - Peripheral Venous Blood Culture - Preliminary Pending Organism 07/28/19 07:15 Sputum - Endotrachea Suction/Ventilator Gram Stain - Final -ID consult -IV abx Problems reviewed: Yes Code(s): R78.81 - BACTEREMIA Assessment/Plan see problem list
--- NOTE | 2019-07-29 11:11 | PN ---
Progress Note (short form) - Note Progress Note: Much more awake and alert today. Indicates that she feels well. Her son is at the bedside. Intake & Output 07/26/19 07/27/19 07/28/19 07/29/19 23:59 23:59 23:59 23:59 Intake Total 100 Balance 100 Weight 99 lb 3.328 oz 102 lb 12.8 oz Last Vital Signs Temp Pulse Resp BP Pulse Ox 98.7 F 95 H 14 159/73 98 07/29/19 06:00 07/29/19 06:00 07/29/19 08:51 07/29/19 06:00 07/29/19 02:00 Active Medications Acetaminophen (Tylenol Oral Solution -) 325 mg GT Q6H [facility] Albuterol/Ipratropium (Duoneb -) 1 amp NEB Q6H [facility] Apixaban (Eliquis -) 2.5 mg GT BID [facility] Atorvastatin Calcium (Lipitor -) 10 mg PO HS [facility] Docusate Sodium (Colace Liquid -) 50 mg GT DAILY [facility] Furosemide (Lasix -) 20 mg GT DAILY [facility] Piperacillin Sod/Tazobactam (Sod 3.375 gm/ Dextrose) 50 mls @ 100 mls/hr IVPB Q8H-IV [facility]; Protocol Last Admin: 07/29/19 10:30 Dose: 100 mls/hr Vancomycin HCl (Vancomycin (Pre-Docked)) 1,000 mg in 250 mls @ 166.667 mls/hr IVPB ONCE ONE; Protocol Stop: 07/29/19 12:44 Metoprolol Tartrate (Lopressor -) 12.5 mg GT BID [facility] Non-Formulary Medication (Ascorbic Acid [Vitamin C]) 500 mg GT DAILY [facility] Non-Formulary Medication (Ferrous Sulfate [Ferrous Sulfate]) 325 mg GT BID [facility] Non-Formulary Medication (Loratadine [Loratadine]) 10 mg GT DAILY [facility] Constitutional: Yes: Awake and alert, NAD Eyes: Yes: Conjunctiva Clear HENT: Yes: Atraumatic, Normocephalic Neck: Yes: Trachea Midline, Other (Trach intact ) Cardiovascular: Yes: Regular Rate and Rhythm Respiratory: Yes: Diminished, Mechanically Ventilated, Rhonchi. No: Rales, Stridor, Tachypnea, Wheezes ...Inspection: Yes: WNL ...Clubbing: No Gastrointestinal: Yes: Normal Bowel Sounds, Soft Musculoskeletal: Yes: WNL Edema: No Peripheral Pulses WNL: Yes Integumentary: Yes: WNL Neurological: Yes: Awake and alert Labs: Laboratory Results - last 24 hr 07/29/19 07/29/19 07/29/19 07:00 07:00 09:35 WBC Cancelled 11.3 H Corrected WBC (auto) Cancelled RBC Cancelled 4.04 Hgb Cancelled 11.4 Hct Cancelled 35.6 MCV Cancelled 88.1 MCH Cancelled 28.1 MCHC Cancelled 31.9 L RDW Cancelled 15.6 Plt Count Cancelled 126 L D MPV Cancelled 9.0 Absolute Neuts (auto) Cancelled 9.4 H Neutrophils % Cancelled 83.2 H Lymphocytes % Cancelled 6.5 L D Monocytes % Cancelled 8.3 Eosinophils % Cancelled 1.7 D Basophils % Cancelled 0.3 Nucleated RBC % Cancelled 0 Platelet Estimate Cancelled Platelet Comment Cancelled Sodium 141 Potassium 4.2 Chloride 107 Carbon Dioxide 22 Anion Gap 12 BUN 18.3 H Creatinine 0.7 Est GFR (CKD-EPI)AfAm 92.86 Est GFR (CKD-EPI)NonAf 80.12 Random Glucose 70 L Calcium 8.6 Problem List - Problems (1) A-fib Code(s): I48.91 - UNSPECIFIED ATRIAL FIBRILLATION (2) Acute metabolic encephalopathy Code(s): G93.41 - METABOLIC ENCEPHALOPATHY (3) Chronic respiratory failure Code(s): J96.10 - CHRONIC RESPIRATORY FAILURE, UNSP W HYPOXIA OR HYPERCAPNIA (4) Lethargy Code(s): R53.83 - OTHER FATIGUE (5) Transaminitis Code(s): R74.0 - NONSPEC ELEV OF LEVELS OF TRANSAMNS & LACTIC ACID DEHYDRGNSE (6) AICD (automatic cardioverter/defibrillator) present Code(s): Z95.810 - PRESENCE OF AUTOMATIC (IMPLANTABLE) CARDIAC DEFIBRILLATOR (7) Acute and chronic respiratory failure with hypercapnia Code(s): J96.22 - ACUTE AND CHRONIC RESPIRATORY FAILURE WITH HYPERCAPNIA (8) Altered mental status Code(s): R41.82 - ALTERED MENTAL STATUS, UNSPECIFIED (9) Anemia Code(s): D64.9 - ANEMIA, UNSPECIFIED (10) Atelectasis Code(s): J98.11 - ATELECTASIS (11) COPD (chronic obstructive pulmonary disease) Code(s): J44.9 - CHRONIC OBSTRUCTIVE PULMONARY DISEASE, UNSPECIFIED (12) HTN (hypertension) Code(s): I10 - ESSENTIAL (PRIMARY) HYPERTENSION (13) PAF (paroxysmal atrial fibrillation) Code(s): I48.0 - PAROXYSMAL ATRIAL FIBRILLATION (14) Pneumonia Code(s): J18.9 - PNEUMONIA, UNSPECIFIED ORGANISM Qualifiers: (15) Respirator dependence Code(s): Z99.11 - DEPENDENCE ON RESPIRATOR [VENTILATOR] STATUS (16) Seizure Code(s): R56.9 - UNSPECIFIED CONVULSIONS Assessment/Plan ABX per ID Current vent settings Follow cultures VTE prophylaxis BD TX PRN No clear indication for systemic steroids Swallow evaluation Dr Medina Problem List - Problems (1) A-fib Code(s): I48.91 - UNSPECIFIED ATRIAL FIBRILLATION (2) Acute metabolic encephalopathy Code(s): G93.41 - METABOLIC ENCEPHALOPATHY (3) Chronic respiratory failure Code(s): J96.10 - CHRONIC RESPIRATORY FAILURE, UNSP W HYPOXIA OR HYPERCAPNIA (4) Lethargy Code(s): R53.83 - OTHER FATIGUE (5) Transaminitis Code(s): R74.0 - NONSPEC ELEV OF LEVELS OF TRANSAMNS & LACTIC ACID DEHYDRGNSE (6) AICD (automatic cardioverter/defibrillator) present Code(s): Z95.810 - PRESENCE OF AUTOMATIC (IMPLANTABLE) CARDIAC DEFIBRILLATOR (7) Acute and chronic respiratory failure with hypercapnia Code(s): J96.22 - ACUTE AND CHRONIC RESPIRATORY FAILURE WITH HYPERCAPNIA (8) Altered mental status Code(s): R41.82 - ALTERED MENTAL STATUS, UNSPECIFIED (9) Anemia Code(s): D64.9 - ANEMIA, UNSPECIFIED (10) Atelectasis Code(s): J98.11 - ATELECTASIS (11) COPD (chronic obstructive pulmonary disease) Code(s): J44.9 - CHRONIC OBSTRUCTIVE PULMONARY DISEASE, UNSPECIFIED (12) HTN (hypertension) Code(s): I10 - ESSENTIAL (PRIMARY) HYPERTENSION (13) PAF (paroxysmal atrial fibrillation) Code(s): I48.0 - PAROXYSMAL ATRIAL FIBRILLATION (14) Pneumonia Code(s): J18.9 - PNEUMONIA, UNSPECIFIED ORGANISM Qualifiers: (15) Respirator dependence Code(s): Z99.11 - DEPENDENCE ON RESPIRATOR [VENTILATOR] STATUS (16) Seizure Code(s): R56.9 - UNSPECIFIED CONVULSIONS
[2019-07-29] MEDS ORDERED: ACETAMINOPHEN 650 MG/20.3 ML ORAL SOLUTION (CUPS) GT SCH (11:15)
[2019-07-29] MEDS ORDERED: ASCORBIC ACID 500 MG/5 ML UNIT DOSE CUP GT SCH (11:15)
[2019-07-29] MEDS ORDERED: METOPROLOL TARTRATE 25 MG TABLET (FP) GT SCH (11:15)
[2019-07-29] MEDS ORDERED: APIXABAN 2.5 MG TABLET GT SCH (11:15)
[2019-07-29] MEDS ORDERED: LORATADINE 10 MG TABLET GT SCH (11:15)
[2019-07-29] MEDS ORDERED: FUROSEMIDE 20 MG TABLET (FP) GT SCH (11:15)
[2019-07-29] MEDS ORDERED: VANCOMYCIN 1 GRAM (PRE-DOCKED) 1,000 MG/250 ML BAG IVPB ONE (11:15)
[2019-07-29] MEDS ORDERED: FERROUS SO4 300 MG/5 ML ORAL SOLN UNIT DOSE CUPS GT SCH (11:15)
[2019-07-29] MEDS: ALBUTEROL SO4 2.5/IPRATROPIUM 0.5 INH SOL 3 ML VIAL.NEB. NEB SCH ×3 (12:38→22:03)
[2019-07-29] MEDS ORDERED: METOPROLOL TARTRATE 5 MG/5 ML VIAL IVPB PRN (12:40)
[2019-07-29] MEDS: METOPROLOL TARTRATE 25 MG TABLET (FP) PO SCH ×2 (13:52→21:09)
[2019-07-29] MEDS: APIXABAN 2.5 MG TABLET PO SCH ×2 (13:53→21:09)
[2019-07-29] MEDS: FUROSEMIDE 20 MG TABLET (FP) PO SCH (13:53)
[2019-07-29] MEDS: ACETAMINOPHEN 650 MG/20.3 ML ORAL SOLUTION (CUPS) PO SCH ×3 (13:54→21:07)
--- NOTE | 2019-07-29 14:04 | CONSULT ---
Admitting History and Physical - Primary Care Physician PCP: Jacky Cook - Admission History of Present Illness: a 84 y/o woman from [facility] with a pMHx of Chronic Respiratory failure, s/p Trach vent-dependent, COPD, CAD- s/p PM, HTN, HLD, DM, Anemia with impaired ОЛЬГА and PNA. ED course was noted for: (1) Chest Xray image- RLL Infiltrate (2) ABG- 7.33/61.6/146/31.9/98.8 (3) WBC 19.6, Neutrophils 88.9 Reported to be much improved today, NPO, swallowing evaluation ordered. Selected Entries 07/28/19 07/28/19 07/28/19 02:00 07:52 18:41 Temperature 97.3 F L 97.1 F L 98.1 F 07/29/19 07/29/19 07/29/19 00:15 01:41 06:00 Temperature 98.8 F 98.3 F 98.7 F Laboratory Tests 07/28/19 07/29/19 03:30 07:00 WBC 19.6 H Cancelled Last MBS 2016-puree/thin liquid I saw pt last in November 2017-At that time, food was suctioned from trach in ER. Known to me from previous admissions, at which time she had a trach/vented intermittently.Pt was on puree and thin liquid at CO Started on puree and nectar thick liquid MBS recommended but not done. Transfer summary states nectar thick, puree Pt was unable to tolerate PMV during 2017 admission. I suspect this is due to impaired airflow with size 8 trach. I suggested downsizing trach, if medically appropriate,with repeat PMV evaluation, to improve speech production/communication, socialization, upper airway use and function, sensation, and swallowing function. Pt seen by ENT at that time who advised against down sizing, for fear of aspiration, and inability to ventilate due to underlying tracheomalacia. History Source: Medical Record Limitations to Obtaining History: Clinical Condition - Past Medical History HOCKEY SCOUT: Yes: CVA, Dementia, Parkinson's Cardiovascular: Yes: AFIB (Paroxysmal), CHF, HTN, Hyperlipdemia, Other (h/o cardiac arrest s/p AICD - Single lead) Pulmonary: Yes: COPD, O2 Dependent, Pneumonia, Previously Intubated, Other ( respiratory failure). No: Asthma, Bronchitis, Pulmonary Embolus, Pulmonary Fibrosis, Sleep Apnea Gastrointestinal: Yes: GERD Heme/Onc: Yes: Anemia - Past Surgical History Past Surgical History: Yes: AICD ([employer]tr[employer], implanted following cardiac arrest) , Cataract Removal (2011) - Advance Directives Advance Directives: Yes: DNR - Smoking History Smoking history: Unknown if ever smoked Have you smoked in the past 12 months: No Aproximately how many cigarettes per day: 0 - Alcohol/Substance Use Hx Alcohol Use: No History of Substance Use: reports: None - Social History ADL: Support Services History of Recent Travel: No History - Admission Reason For Visit: ACUTE RESPITATORY FAILURE,PNEUMONIA - Diagnostics X-ray: Report Reviewed - General Mental Status: Awake and Alert, Able to Follow Commands Attention: Intact Ability to Follow Directions: Good Head/Neck Control: Fair - Hearing Hearing: Normal Hearing Aide: No With Patient: No Speech Evaluation - Communication Primary Language: POLISH Communication: Yes: Simple Responses Oral Expression Ability: Yes: Non-Vocal (on ventilator) - Speech Production Apraxia: No - Speech Characteristics Articulation: Yes: Precise - Language/Auditory Comprehension Observation: Comprehends Conversational Speech: No (simple) - Swallow Evaluation/Bedside Assessment Current Nutritional Intake: NPO Oral Secretions: Yes: WFL Dentition: Yes: Edentulous Facial Symmetry at Rest: Symmetrical Facial Symmetry on Retraction: Symmetrical Sensation: Normal Against Resistance Opening: Normal Pucker Lips: Normal Smile: Normal Lingual Movement: Symmetric Lingual Speed of Movement: Normal Lingual Movement Strgth Against Opposition: Normal Lingual Movement Characteristics: Normal Laryngeal Movement: Labored,delay initiation Rate of Intake: WFL Bolus Size: Small Labial Seal: WFL Oral Prep Time: WFL A-P Transit: WFL Pocketing: None Timing of Swallow: Delayed Coughing/Throat Clear: No Change in Voice: No Recommendations - Speech Evaluation, Impression/Plan Impression: Performance seems similar to previous assessment in 2018. MBS has not been done since 2017. Pt has been tolerating puree/nectar at CO. PMV has not been tolerated in the past, I suspect because of large trach size 8 . Pt mouths words. ENT had advised not to downsize in 2018. RLL PNA sec to Aspiration? Bedside evaluation is (-). - Disposition Discharge to: Retirement Facility - Dysphagia Impressions/Plan Dysphagia Impressions: Risk of Aspiration, Ongoing Evaluation *Silent aspiration: cannot be R/O at bedside Dysphagia Treatment Plan: Small Bites, Chin Tuck/Down, Trial Feedings, Safe Rate , 1/2 tsp. at a time, Elevate HOB during feed Recommendations: Modified Barium Swallow (to r/o silent aspiration.) - Recommendations Diet Consistency: Dysphagia Pureed (trial colored foods eg cranberry juice, peas , squash, monitor for colored food suctioned from trach.) Medication Administration: Crushed with applesauce Liquids: Humphrey Thick (single sips, no straws or continuous drinking) Supplement: Magic Cup, Ensure Pudding (chocolate)
[2019-07-29] MEDS: FERROUS SO4 300 MG/5 ML ORAL SOLN UNIT DOSE CUPS PO SCH (17:42)
--- NOTE | 2019-07-29 17:52 | PN ---
Progress Note (short form) - Note Progress Note: awake and alert trach to vent NAD Vital Signs Period Temp Pulse Resp BP Sys/Vera Pulse Ox Last 24 Hr 98.1 F-98.9 F 74-95 14-22 99-159/58-92 98-99 cor-rrr lungs decreased bs at bases abd soft,nt ext no edema CBC, BMP 07/29/19 09:35 07/29/19 07:00 Microbiology 07/28/19 07:15 Sputum - Endotrachea Suction/Ventilator Gram Stain - Final 07/28/19 07:15 Sputum - Endotrachea Suction/Ventilator Sputum Culture - Preliminary Non Lactose Fermenting Gnb Non Lactose Fermenting Gnb#2 07/28/19 03:15 Urine - Urine Clean Catch Urine Culture - Preliminary Group D Strep Or Entero Coccus 07/28/19 03:30 Blood - Peripheral Venous Blood Culture - Preliminary NO GROWTH OBTAINED AFTER 24 HOURS, INCUBATION TO CONTINUE FOR 4 DAYS. 07/28/19 03:30 Blood - Peripheral Venous Blood Culture - Preliminary Pending Organism imp/reccd pneumonia-on zosyn bacteremia- received another dose vanco- will f/u in am chronic resp failure multiple antibiotic allergies leukocytosis improved zosyn to continue f/u cultures check urinary antigens Problem List - Problems (1) Pneumonia Code(s): J18.9 - PNEUMONIA, UNSPECIFIED ORGANISM Qualifiers: (2) Leukocytosis Code(s): D72.829 - ELEVATED WHITE BLOOD CELL COUNT, UNSPECIFIED (3) Chronic respiratory failure Code(s): J96.10 - CHRONIC RESPIRATORY FAILURE, UNSP W HYPOXIA OR HYPERCAPNIA (4) Allergy to multiple antibiotics Code(s): Z88.1 - ALLERGY STATUS TO OTHER ANTIBIOTIC AGENTS STATUS
[2019-07-29] MEDS ORDERED: PT OWN MED DRAWER 7, Y5N ONE (18:49)
[2019-07-29] MEDS: ATORVASTATIN CA 10 MG TABLET (FP) PO SCH (21:09)
[2019-07-30] MEDS ORDERED: DEXTROSE 5%-WATER - 50 ML IVPB ONE ×3 (01:05→17:14)
[2019-07-30] MEDS ORDERED: PIPERACILLIN/TAZOBACTAM 3.375 GM VIAL IVPB ONE ×3 (01:05→17:14)
[2019-07-30] MEDS: PIPERACILLIN/TAZOB 3.375 GM 3.375 GM in DEXTROSE 5%-WATER - 50 ML IVPB SCH ×3 (01:09→18:27)
[2019-07-30] MEDS: ALBUTEROL SO4 2.5/IPRATROPIUM 0.5 INH SOL 3 ML VIAL.NEB. NEB SCH ×4 (05:33→20:26)
--- NOTE | 2019-07-30 07:59 | PN ---
Progress Note (short form) - Note Progress Note: Awake and alert and interactive. Tolerated PO intake. Indicates that she feels well. Her son is at the bedside. Intake & Output 07/27/19 07/28/19 07/29/19 07/30/19 23:59 23:59 23:59 23:59 Intake Total 750 50 Balance 750 50 Weight 99 lb 3.328 oz 102 lb 12.8 oz Last Vital Signs Temp Pulse Resp BP Pulse Ox 98.7 F 62 16 111/54 L 95 07/30/19 07:00 07/30/19 07:00 07/30/19 07:00 07/30/19 07:00 07/29/19 21:00 Active Medications Acetaminophen (Tylenol Oral Solution -) 325 mg PO QID [facility] Last Admin: 07/29/19 21:07 Dose: 325 mg Albuterol/Ipratropium (Duoneb -) 1 amp NEB Q6H [facility] Last Admin: 07/30/19 05:33 Dose: 1 amp Apixaban (Eliquis -) 2.5 mg PO BID [facility] Last Admin: 07/29/19 21:09 Dose: 2.5 mg Ascorbic Acid (Vitamin C Oral Solution -) 500 mg PO DAILY [facility] Atorvastatin Calcium (Lipitor -) 10 mg PO HS [facility] Last Admin: 07/29/19 21:09 Dose: 10 mg Docusate Sodium (Colace Liquid -) 50 mg PO DAILY [facility] Ferrous Sulfate (Feosol) 300 mg PO BIDWM [facility] Last Admin: 07/29/19 17:42 Dose: 300 mg Furosemide (Lasix -) 20 mg PO DAILY [facility] Last Admin: 07/29/19 13:53 Dose: 20 mg Piperacillin Sod/Tazobactam (Sod 3.375 gm/ Dextrose) 50 mls @ 100 mls/hr IVPB Q8H-IV [facility]; Protocol Last Admin: 07/30/19 01:09 Dose: 100 mls/hr Loratadine (Claritin -) 10 mg PO DAILY [facility] Metoprolol Tartrate (Lopressor -) 12.5 mg PO BID [facility] Last Admin: 07/29/19 21:09 Dose: Not Given Metoprolol Tartrate (Lopressor Injection -) 5 mg IVPB Q4H PRN PRN Reason: HYPERTENSION Constitutional: Yes: Awake and alert, NAD Eyes: Yes: Conjunctiva Clear HENT: Yes: Atraumatic, Normocephalic Neck: Yes: Trachea Midline, Other (Trach intact ) Cardiovascular: Yes: Regular Rate and Rhythm Respiratory: Yes: Diminished, Mechanically Ventilated, Rhonchi. No: Rales, Stridor, Tachypnea, Wheezes ...Inspection: Yes: WNL ...Clubbing: No Gastrointestinal: Yes: Normal Bowel Sounds, Soft Musculoskeletal: Yes: WNL Edema: No Peripheral Pulses WNL: Yes Integumentary: Yes: WNL Neurological: Yes: Awake and alert Labs: Laboratory Results - last 24 hr 07/29/19 07/29/19 07/29/19 07:00 07:00 09:35 WBC Cancelled 11.3 H Corrected WBC (auto) Cancelled RBC Cancelled 4.04 Hgb Cancelled 11.4 Hct Cancelled 35.6 MCV Cancelled 88.1 MCH Cancelled 28.1 MCHC Cancelled 31.9 L RDW Cancelled 15.6 Plt Count Cancelled 126 L D MPV Cancelled 9.0 Absolute Neuts (auto) Cancelled 9.4 H Neutrophils % Cancelled 83.2 H Lymphocytes % Cancelled 6.5 L D Monocytes % Cancelled 8.3 Eosinophils % Cancelled 1.7 D Basophils % Cancelled 0.3 Nucleated RBC % Cancelled 0 Platelet Estimate Cancelled Platelet Comment Cancelled Sodium 141 Potassium 4.2 Chloride 107 Carbon Dioxide 22 Anion Gap 12 BUN 18.3 H Creatinine 0.7 Est GFR (CKD-EPI)AfAm 92.86 Est GFR (CKD-EPI)NonAf 80.12 Random Glucose 70 L Calcium 8.6 Problem List - Problems (1) A-fib Code(s): I48.91 - UNSPECIFIED ATRIAL FIBRILLATION (2) Acute metabolic encephalopathy Code(s): G93.41 - METABOLIC ENCEPHALOPATHY (3) Chronic respiratory failure Code(s): J96.10 - CHRONIC RESPIRATORY FAILURE, UNSP W HYPOXIA OR HYPERCAPNIA (4) Lethargy Code(s): R53.83 - OTHER FATIGUE (5) Transaminitis Code(s): R74.0 - NONSPEC ELEV OF LEVELS OF TRANSAMNS & LACTIC ACID DEHYDRGNSE (6) AICD (automatic cardioverter/defibrillator) present Code(s): Z95.810 - PRESENCE OF AUTOMATIC (IMPLANTABLE) CARDIAC DEFIBRILLATOR (7) Acute and chronic respiratory failure with hypercapnia Code(s): J96.22 - ACUTE AND CHRONIC RESPIRATORY FAILURE WITH HYPERCAPNIA (8) Altered mental status Code(s): R41.82 - ALTERED MENTAL STATUS, UNSPECIFIED (9) Anemia Code(s): D64.9 - ANEMIA, UNSPECIFIED (10) Atelectasis Code(s): J98.11 - ATELECTASIS (11) COPD (chronic obstructive pulmonary disease) Code(s): J44.9 - CHRONIC OBSTRUCTIVE PULMONARY DISEASE, UNSPECIFIED (12) HTN (hypertension) Code(s): I10 - ESSENTIAL (PRIMARY) HYPERTENSION (13) PAF (paroxysmal atrial fibrillation) Code(s): I48.0 - PAROXYSMAL ATRIAL FIBRILLATION (14) Pneumonia Code(s): J18.9 - PNEUMONIA, UNSPECIFIED ORGANISM Qualifiers: (15) Respirator dependence Code(s): Z99.11 - DEPENDENCE ON RESPIRATOR [VENTILATOR] STATUS (16) Seizure Code(s): R56.9 - UNSPECIFIED CONVULSIONS Assessment/Plan ABX per ID Current vent settings Follow cultures VTE prophylaxis BD TX PRN No clear indication for systemic steroids PO as tolerated Dr Medina Problem List - Problems (1) A-fib Code(s): I48.91 - UNSPECIFIED ATRIAL FIBRILLATION (2) Acute metabolic encephalopathy Code(s): G93.41 - METABOLIC ENCEPHALOPATHY (3) Chronic respiratory failure Code(s): J96.10 - CHRONIC RESPIRATORY FAILURE, UNSP W HYPOXIA OR HYPERCAPNIA (4) Lethargy Code(s): R53.83 - OTHER FATIGUE (5) Transaminitis Code(s): R74.0 - NONSPEC ELEV OF LEVELS OF TRANSAMNS & LACTIC ACID DEHYDRGNSE (6) AICD (automatic cardioverter/defibrillator) present Code(s): Z95.810 - PRESENCE OF AUTOMATIC (IMPLANTABLE) CARDIAC DEFIBRILLATOR (7) Acute and chronic respiratory failure with hypercapnia Code(s): J96.22 - ACUTE AND CHRONIC RESPIRATORY FAILURE WITH HYPERCAPNIA (8) Altered mental status Code(s): R41.82 - ALTERED MENTAL STATUS, UNSPECIFIED (9) Anemia Code(s): D64.9 - ANEMIA, UNSPECIFIED (10) Atelectasis Code(s): J98.11 - ATELECTASIS (11) COPD (chronic obstructive pulmonary disease) Code(s): J44.9 - CHRONIC OBSTRUCTIVE PULMONARY DISEASE, UNSPECIFIED (12) HTN (hypertension) Code(s): I10 - ESSENTIAL (PRIMARY) HYPERTENSION (13) PAF (paroxysmal atrial fibrillation) Code(s): I48.0 - PAROXYSMAL ATRIAL FIBRILLATION (14) Pneumonia Code(s): J18.9 - PNEUMONIA, UNSPECIFIED ORGANISM Qualifiers: (15) Respirator dependence Code(s): Z99.11 - DEPENDENCE ON RESPIRATOR [VENTILATOR] STATUS (16) Seizure Code(s): R56.9 - UNSPECIFIED CONVULSIONS
[2019-07-30] MEDS: FERROUS SO4 300 MG/5 ML ORAL SOLN UNIT DOSE CUPS PO SCH ×2 (08:16→18:26)
[2019-07-30 08:47] LABS: EOS % 5.4 % (0-4.5); HEMATOCRIT 31.9 % (32.4-45.2); HEMOGLOBIN 10.3 GM/dL (10.7-15.3); LYMPH % 11.9 % (8-40); MCHC 32.3 g/dl (32.0-36.0); MEAN CELL VOLUME 86.7 fl (80-96); MEAN PLT VOLUME 8.9 fl (7.5-11.1); MONO % 10.1 % (3.8-10.2); NEUT % 71.6 % (42.8-82.8); PLATELET COUNT 130 K/MM3 (134-434); RBC 3.67 M/mm3 (3.60-5.2); RDW 15.6 % (11.6-15.6); WHITE BLOOD COUNT 6.9 K/mm3 (4.0-10.0)
[2019-07-30] MEDS: LORATADINE 10 MG TABLET PO SCH (09:45)
[2019-07-30] MEDS: METOPROLOL TARTRATE 25 MG TABLET (FP) PO SCH ×2 (09:46→22:48)
[2019-07-30] MEDS: FUROSEMIDE 20 MG TABLET (FP) PO SCH (09:46)
[2019-07-30] MEDS: APIXABAN 2.5 MG TABLET PO SCH ×2 (09:47→22:48)
[2019-07-30] MEDS: ACETAMINOPHEN 650 MG/20.3 ML ORAL SOLUTION (CUPS) PO SCH ×4 (09:49→22:45)
[2019-07-30] MEDS: ASCORBIC ACID 500 MG/5 ML UNIT DOSE CUP PO SCH (09:49)
[2019-07-30] MEDS: DOCUSATE NA 100 MG/10 ML UNIT-DOSE CUPS PO SCH (09:57)
[2019-07-30] MEDS ORDERED: DOCUSATE NA 100 MG/10 ML UNIT-DOSE CUPS GT SCH (10:00)
--- NOTE | 2019-07-30 10:09 | PN ---
Progress Note, Physician Chief Complaint: AMS Pneumonia History of Present Illness: NAD mechanical vent CXR R base pne Started on IV abx Son at bedside Pt awake and alert, knows she is in the hospital - Current Medication List Current Medications: Active Medications Acetaminophen (Tylenol Oral Solution -) 325 mg PO QID [facility] Last Admin: 07/30/19 09:49 Dose: 325 mg Albuterol/Ipratropium (Duoneb -) 1 amp NEB RQID [facility] Apixaban (Eliquis -) 2.5 mg PO BID [facility] Last Admin: 07/30/19 09:47 Dose: 2.5 mg Ascorbic Acid (Vitamin C Oral Solution -) 500 mg PO DAILY [facility] Last Admin: 07/30/19 09:49 Dose: 500 mg Atorvastatin Calcium (Lipitor -) 10 mg PO HS [facility] Last Admin: 07/29/19 21:09 Dose: 10 mg Docusate Sodium (Colace Liquid -) 50 mg PO DAILY [facility] Last Admin: 07/30/19 09:57 Dose: Not Given Ferrous Sulfate (Feosol) 300 mg PO BIDWM [facility] Last Admin: 07/30/19 08:16 Dose: 300 mg Furosemide (Lasix -) 20 mg PO DAILY [facility] Last Admin: 07/30/19 09:46 Dose: 20 mg Piperacillin Sod/Tazobactam (Sod 3.375 gm/ Dextrose) 50 mls @ 100 mls/hr IVPB Q8H-IV [facility]; Protocol Last Admin: 07/30/19 09:49 Dose: 100 mls/hr Loratadine (Claritin -) 10 mg PO DAILY [facility] Last Admin: 07/30/19 09:45 Dose: 10 mg Metoprolol Tartrate (Lopressor -) 12.5 mg PO BID [facility] Last Admin: 07/30/19 09:46 Dose: 12.5 mg Metoprolol Tartrate (Lopressor Injection -) 5 mg IVPB Q4H PRN PRN Reason: HYPERTENSION - Objective Vital Signs: Vital Signs Temperature 98.7 F 07/30/19 07:00 Pulse Rate 62 07/30/19 08:30 Respiratory Rate 14 07/30/19 08:30 Blood Pressure 111/54 L 07/30/19 07:00 O2 Sat by Pulse Oximetry (%) 97 07/30/19 08:30 Constitutional: Yes: No Distress, Calm, Thin Cardiovascular: Yes: Regular Rate and Rhythm Respiratory: Yes: Regular Gastrointestinal: Yes: Normal Bowel Sounds, Soft Genitourinary: Yes: Incontinence Musculoskeletal: Yes: Muscle Weakness Extremities: Yes: Other (generalized atrophy) Edema: No Peripheral Pulses WNL: Yes Neurological: Yes: Alert, Oriented Psychiatric: Yes: Alert, Oriented Labs: CBC, BMP 07/30/19 07:45 07/29/19 07:00 INR, PTT INR 1.18 (0.83-1.09) H 07/28/19 03:30 Problem List - Problems (1) A-fib Assessment/Plan: -Continue Eliquis Problems reviewed: Yes Code(s): I48.91 - UNSPECIFIED ATRIAL FIBRILLATION (2) Acute metabolic encephalopathy Problems reviewed: Yes Code(s): G93.41 - METABOLIC ENCEPHALOPATHY (3) Chronic respiratory failure Assessment/Plan: -Pulmonary on board -IV abx -Bronchodilators Problems reviewed: Yes Code(s): J96.10 - CHRONIC RESPIRATORY FAILURE, UNSP W HYPOXIA OR HYPERCAPNIA (4) AICD (automatic cardioverter/defibrillator) present Problems reviewed: Yes Code(s): Z95.810 - PRESENCE OF AUTOMATIC (IMPLANTABLE) CARDIAC DEFIBRILLATOR (5) Altered mental status Assessment/Plan: -Resolved Problems reviewed: Yes Code(s): R41.82 - ALTERED MENTAL STATUS, UNSPECIFIED (6) Functional quadriplegia Problems reviewed: Yes Code(s): R53.2 - FUNCTIONAL QUADRIPLEGIA (7) Pneumonia Assessment/Plan: -RLL -Speech therapy to evaluate swallow for possible aspiration -ID consult -Pulmonary consult -IV abx -Bronchodilators -Leukocytosis improved -Afebrile -Urine legionella pending Problems reviewed: Yes Code(s): J18.9 - PNEUMONIA, UNSPECIFIED ORGANISM Qualifiers: (8) Bacteremia Assessment/Plan: -Cultures: Microbiology 07/28/19 03:15 Urine - Urine Clean Catch Urine Culture - Preliminary Group D Strep Or Entero Coccus 07/28/19 03:30 Blood - Peripheral Venous Blood Culture - Preliminary NO GROWTH OBTAINED AFTER 24 HOURS, INCUBATION TO CONTINUE FOR 4 DAYS. 07/28/19 03:30 Blood - Peripheral Venous Blood Culture - Preliminary Pending Organism 07/28/19 07:15 Sputum - Endotrachea Suction/Ventilator Gram Stain - Final -ID consult -IV abx Problems reviewed: Yes Code(s): R78.81 - BACTEREMIA Assessment/Plan see problem list
[2019-07-30] MEDS ORDERED: ALBUTEROL SO4 0.083% IH SOL 2.5 MG/3 ML VIAL.NEB. NEB ONE ×2 (13:40→13:45)
--- NOTE | 2019-07-30 14:44 | RAPID ---
Physical Examination Vital Signs: Vital Signs Temperature 98.7 F 07/30/19 07:00 Pulse Rate 62 07/30/19 08:30 Respiratory Rate 14 07/30/19 08:30 Blood Pressure 111/54 L 07/30/19 07:00 O2 Sat by Pulse Oximetry (%) 97 07/30/19 08:30 Labs: CBC, BMP 07/30/19 07:45 07/29/19 07:00 Rapid Response - Rapid Response Assessment: Rapid Response was called. Rapid team to the bedside. Patient was noted by the nurse to be in respiratory distress after returning from modified barium swallow. Patient was examined and was not responding to voice or commands. Unable to provide ROS. Vitals: On arrival HR 101, BP 190/96, SpO2 98 Subsequent measurements HR 101 BP 170/96 HR 82 141/87 Exam: Awake, not alert or oriented. Cardiac: RRR no murmurs Resp: significant coarse breath sounds R>L, no crackles Abd: soft, non-tender Neuro: pupils round and reactive to light Extremities: moves spontaneously, with heel pads placed Outcome: Suspect aspiration vs mucous plugging s/p MBS Ordered EKG, no acute changes Ordered CXR, blunting of R angle, no other changes Ordered troponins, negative Transfer to telemetry for closer monitoring Primary team alerted and signed out to
--- NOTE | 2019-07-30 15:06 | EKG ---
Test Reason : Blood Pressure : / mmHG Vent. Rate : 071 BPM Atrial Rate : 071 BPM P-R Int : 142 ms QRS Dur : 084 ms QT Int : 414 ms P-R-T Axes : 100 060 070 degrees QTc Int : 449 ms NORMAL SINUS RHYTHM NONSPECIFIC T WAVE ABNORMALITY ABNORMAL ECG WHEN COMPARED WITH ECG OF 28-JUL-2019 02:20, CRITERIA FOR ANTEROSEPTAL INFARCT ARE NO LONGER PRESENT Confirmed by FILOMENA CAMACHO MD ([id number]) on 07/30/2019 3:06:36 PM Referred By: PADMINI JEONG Confirmed By:FILOMENA CAMACHO MD
--- NOTE | 2019-07-30 15:59 | PN ---
Progress Note (short form) - Note Progress Note: episode of unresponsiveness after return from barium swallow now alert and responsive for transfer to telemetry Vital Signs Period Temp Pulse Resp BP Sys/Vera Pulse Ox Last 24 Hr 98.6 F-99.0 F 62-71 14-18 86-116/35-61 95-98 cor-rrr lungs decreased bs at bases abd soft,nt ext no edema trach to vent CBC, BMP 07/30/19 07:45 07/29/19 07:00 Microbiology 07/28/19 03:15 Urine - Urine Clean Catch Urine Culture - Final Enterococcus Faecium 07/29/19 11:40 Blood - Peripheral Venous Blood Culture - Preliminary NO GROWTH OBTAINED AFTER 24 HOURS, INCUBATION TO CONTINUE FOR 4 DAYS. 07/29/19 11:10 Blood - Peripheral Venous Blood Culture - Preliminary NO GROWTH OBTAINED AFTER 24 HOURS, INCUBATION TO CONTINUE FOR 4 DAYS. 07/28/19 07:15 Sputum - Endotrachea Suction/Ventilator Gram Stain - Final 07/28/19 07:15 Sputum - Endotrachea Suction/Ventilator Sputum Culture - Preliminary Non Lactose Fermenting Gnb Non Lactose Fermenting Gnb#2 07/28/19 03:30 Blood - Peripheral Venous Blood Culture - Preliminary Staphylococcus Coagulase Neg 07/28/19 03:30 Blood - Peripheral Venous Blood Culture - Preliminary NO GROWTH OBTAINED AFTER 48 HOURS, INCUBATION TO CONTINUE FOR 3 DAYS. imp/reccd episode of unresponsiveness- per PMD- appears resolved pneumonia-on zosyn bacteremia- received another dose vanco- -staph epi- contaminant doubt UTI- ua is negative chronic resp failure abnl lfts- repeat in am multiple antibiotic allergies leukocytosis improved zosyn to continue f/u labs in am Problem List - Problems (1) Pneumonia Code(s): J18.9 - PNEUMONIA, UNSPECIFIED ORGANISM Qualifiers: (2) Leukocytosis Code(s): D72.829 - ELEVATED WHITE BLOOD CELL COUNT, UNSPECIFIED (3) Chronic respiratory failure Code(s): J96.10 - CHRONIC RESPIRATORY FAILURE, UNSP W HYPOXIA OR HYPERCAPNIA (4) Allergy to multiple antibiotics Code(s): Z88.1 - ALLERGY STATUS TO OTHER ANTIBIOTIC AGENTS STATUS
[2019-07-30 16:25] VITALS: BMI 19.9
[2019-07-30] MEDS: ATORVASTATIN CA 10 MG TABLET (FP) PO SCH (22:48)
[2019-07-31] MEDS ORDERED: PIPERACILLIN/TAZOBACTAM 3.375 GM VIAL IVPB ONE ×2 (02:17→11:13)
[2019-07-31] MEDS ORDERED: DEXTROSE 5%-WATER - 50 ML IVPB ONE ×2 (02:17→11:13)
[2019-07-31] MEDS: PIPERACILLIN/TAZOB 3.375 GM 3.375 GM in DEXTROSE 5%-WATER - 50 ML IVPB SCH ×3 (02:44→18:46)
[2019-07-31] MEDS: ALBUTEROL SO4 2.5/IPRATROPIUM 0.5 INH SOL 3 ML VIAL.NEB. NEB SCH ×3 (08:10→21:50)
[2019-07-31 09:28] LABS: BASO % 0.7 % (0-2.0); EOS % 4.6 % (0-4.5); HEMATOCRIT 28.8 % (32.4-45.2); HEMOGLOBIN 9.4 GM/dL (10.7-15.3); LYMPH % 11.8 % (8-40); MCH 28.2 pg (25.7-33.7); MCHC 32.6 g/dl (32.0-36.0); MEAN CELL VOLUME 86.5 fl (80-96); MEAN PLT VOLUME 8.5 fl (7.5-11.1); MONO % 10.6 % (3.8-10.2); NEUT % 72.3 % (42.8-82.8); PLATELET COUNT 120 K/MM3 (134-434); RBC 3.33 M/mm3 (3.60-5.2); RDW 15.9 % (11.6-15.6); WHITE BLOOD COUNT 6.7 K/mm3 (4.0-10.0)
[2019-07-31 09:54] LABS: ALBUMIN 2.7 g/dl (3.4-5.0); BILIRUBIN,TOTAL 0.3 mg/dL (0.2-1); CALCIUM 8.3 mg/dL (8.5-10.1); CREATININE 0.8 mg/dL (0.55-1.3); POTASSIUM 3.6 mmol/L (3.5-5.1); TOT PROT 5.9 g/dl (6.4-8.2)
--- NOTE | 2019-07-31 10:30 | PN ---
Progress Note (short form) - Note Progress Note: Awake and alert and interactive. Apparently became unresponsive after her MBS yesterday. Indicates that she feels well. CXR: rotated / no gross change Intake & Output 07/28/19 07/29/19 07/30/19 07/31/19 23:59 23:59 23:59 23:59 Intake Total 750 250 100 Balance 750 250 100 Weight 99 lb 3.328 oz 102 lb 12.8 oz 102 lb Last Vital Signs Temp Pulse Resp BP Pulse Ox 99.1 F 61 14 112/52 L 100 07/31/19 06:29 07/31/19 06:29 07/31/19 09:00 07/31/19 06:29 07/30/19 21:00 Active Medications Acetaminophen (Tylenol Oral Solution -) 325 mg PO QID [facility] Last Admin: 07/30/19 22:45 Dose: 325 mg Albuterol/Ipratropium (Duoneb -) 1 amp NEB RQID [facility] Last Admin: 07/31/19 08:10 Dose: 1 amp Apixaban (Eliquis -) 2.5 mg PO BID [facility] Last Admin: 07/30/19 22:48 Dose: 2.5 mg Ascorbic Acid (Vitamin C Oral Solution -) 500 mg PO DAILY [facility] Last Admin: 07/30/19 09:49 Dose: 500 mg Atorvastatin Calcium (Lipitor -) 10 mg PO HS [facility] Last Admin: 07/30/19 22:48 Dose: 10 mg Docusate Sodium (Colace Liquid -) 50 mg PO DAILY [facility] Last Admin: 07/30/19 09:57 Dose: Not Given Ferrous Sulfate (Feosol) 300 mg PO BIDWM [facility] Last Admin: 07/30/19 18:26 Dose: 300 mg Furosemide (Lasix -) 20 mg PO DAILY [facility] Last Admin: 07/30/19 09:46 Dose: 20 mg Piperacillin Sod/Tazobactam (Sod 3.375 gm/ Dextrose) 50 mls @ 100 mls/hr IVPB Q8H-IV [facility]; Protocol Last Admin: 07/31/19 02:44 Dose: 100 mls/hr Loratadine (Claritin -) 10 mg PO DAILY [facility] Last Admin: 07/30/19 09:45 Dose: 10 mg Metoprolol Tartrate (Lopressor -) 12.5 mg PO BID [facility] Last Admin: 07/30/19 22:48 Dose: 12.5 mg Metoprolol Tartrate (Lopressor Injection -) 5 mg IVPB Q4H PRN PRN Reason: HYPERTENSION Constitutional: Yes: Awake and alert, NAD Eyes: Yes: Conjunctiva Clear HENT: Yes: Atraumatic, Normocephalic Neck: Yes: Trachea Midline, Other (Trach intact ) Cardiovascular: Yes: Regular Rate and Rhythm Respiratory: Yes: Diminished, Mechanically Ventilated, Rhonchi. No: Rales, Stridor, Tachypnea, Wheezes ...Inspection: Yes: WNL ...Clubbing: No Gastrointestinal: Yes: Normal Bowel Sounds, Soft Musculoskeletal: Yes: WNL Edema: No Peripheral Pulses WNL: Yes Integumentary: Yes: WNL Neurological: Yes: Awake and alert Labs: Laboratory Results - last 24 hr 07/30/19 07/30/19 07/31/19 13:20 13:45 09:00 WBC 6.7 RBC 3.33 L Hgb 9.4 L Hct 28.8 L MCV 86.5 MCH 28.2 MCHC 32.6 RDW 15.9 H Plt Count 120 L MPV 8.5 Absolute Neuts (auto) 4.8 Neutrophils % 72.3 Lymphocytes % 11.8 Monocytes % 10.6 H Eosinophils % 4.6 H Basophils % 0.7 Nucleated RBC % 0 Sodium Potassium Chloride Carbon Dioxide Anion Gap BUN Creatinine Est GFR (CKD-EPI)AfAm Est GFR (CKD-EPI)NonAf POC Glucometer 134 Random Glucose Calcium Total Bilirubin AST ALT Alkaline Phosphatase Troponin I < 0.02 Total Protein Albumin 07/31/19 09:00 WBC RBC Hgb Hct MCV MCH MCHC RDW Plt Count MPV Absolute Neuts (auto) Neutrophils % Lymphocytes % Monocytes % Eosinophils % Basophils % Nucleated RBC % Sodium 143 Potassium 3.6 Chloride 106 Carbon Dioxide 33 H Anion Gap 4 L BUN 20.0 H Creatinine 0.8 Est GFR (CKD-EPI)AfAm 79.02 Est GFR (CKD-EPI)NonAf 68.18 POC Glucometer Random Glucose 92 Calcium 8.3 L Total Bilirubin 0.3 AST 42 H ALT 73 H Alkaline Phosphatase 184 H Troponin I Total Protein 5.9 L Albumin 2.7 L Problem List - Problems (1) A-fib Code(s): I48.91 - UNSPECIFIED ATRIAL FIBRILLATION (2) Acute metabolic encephalopathy Code(s): G93.41 - METABOLIC ENCEPHALOPATHY (3) Chronic respiratory failure Code(s): J96.10 - CHRONIC RESPIRATORY FAILURE, UNSP W HYPOXIA OR HYPERCAPNIA (4) Lethargy Code(s): R53.83 - OTHER FATIGUE (5) Transaminitis Code(s): R74.0 - NONSPEC ELEV OF LEVELS OF TRANSAMNS & LACTIC ACID DEHYDRGNSE (6) AICD (automatic cardioverter/defibrillator) present Code(s): Z95.810 - PRESENCE OF AUTOMATIC (IMPLANTABLE) CARDIAC DEFIBRILLATOR (7) Acute and chronic respiratory failure with hypercapnia Code(s): J96.22 - ACUTE AND CHRONIC RESPIRATORY FAILURE WITH HYPERCAPNIA (8) Altered mental status Code(s): R41.82 - ALTERED MENTAL STATUS, UNSPECIFIED (9) Anemia Code(s): D64.9 - ANEMIA, UNSPECIFIED (10) Atelectasis Code(s): J98.11 - ATELECTASIS (11) COPD (chronic obstructive pulmonary disease) Code(s): J44.9 - CHRONIC OBSTRUCTIVE PULMONARY DISEASE, UNSPECIFIED (12) HTN (hypertension) Code(s): I10 - ESSENTIAL (PRIMARY) HYPERTENSION (13) PAF (paroxysmal atrial fibrillation) Code(s): I48.0 - PAROXYSMAL ATRIAL FIBRILLATION (14) Pneumonia Code(s): J18.9 - PNEUMONIA, UNSPECIFIED ORGANISM Qualifiers: (15) Respirator dependence Code(s): Z99.11 - DEPENDENCE ON RESPIRATOR [VENTILATOR] STATUS (16) Seizure Code(s): R56.9 - UNSPECIFIED CONVULSIONS Assessment/Plan ABX per ID Follow cultures VTE prophylaxis BD TX PRN No clear indication for systemic steroids Suction as needed PO as tolerated Dr Medina Problem List - Problems (1) A-fib Code(s): I48.91 - UNSPECIFIED ATRIAL FIBRILLATION (2) Acute metabolic encephalopathy Code(s): G93.41 - METABOLIC ENCEPHALOPATHY (3) Chronic respiratory failure Code(s): J96.10 - CHRONIC RESPIRATORY FAILURE, UNSP W HYPOXIA OR HYPERCAPNIA (4) Lethargy Code(s): R53.83 - OTHER FATIGUE (5) Transaminitis Code(s): R74.0 - NONSPEC ELEV OF LEVELS OF TRANSAMNS & LACTIC ACID DEHYDRGNSE (6) AICD (automatic cardioverter/defibrillator) present Code(s): Z95.810 - PRESENCE OF AUTOMATIC (IMPLANTABLE) CARDIAC DEFIBRILLATOR (7) Acute and chronic respiratory failure with hypercapnia Code(s): J96.22 - ACUTE AND CHRONIC RESPIRATORY FAILURE WITH HYPERCAPNIA (8) Altered mental status Code(s): R41.82 - ALTERED MENTAL STATUS, UNSPECIFIED (9) Anemia Code(s): D64.9 - ANEMIA, UNSPECIFIED (10) Atelectasis Code(s): J98.11 - ATELECTASIS (11) COPD (chronic obstructive pulmonary disease) Code(s): J44.9 - CHRONIC OBSTRUCTIVE PULMONARY DISEASE, UNSPECIFIED (12) HTN (hypertension) Code(s): I10 - ESSENTIAL (PRIMARY) HYPERTENSION (13) PAF (paroxysmal atrial fibrillation) Code(s): I48.0 - PAROXYSMAL ATRIAL FIBRILLATION (14) Pneumonia Code(s): J18.9 - PNEUMONIA, UNSPECIFIED ORGANISM Qualifiers: (15) Respirator dependence Code(s): Z99.11 - DEPENDENCE ON RESPIRATOR [VENTILATOR] STATUS (16) Seizure Code(s): R56.9 - UNSPECIFIED CONVULSIONS
[2019-07-31] MEDS ORDERED: PT OWN MED DRAWER 7, Y5N ONE (11:13)
[2019-07-31] MEDS: ASCORBIC ACID 500 MG/5 ML UNIT DOSE CUP PO SCH (11:28)
[2019-07-31] MEDS: METOPROLOL TARTRATE 25 MG TABLET (FP) PO SCH (11:28)
[2019-07-31] MEDS: DOCUSATE NA 100 MG/10 ML UNIT-DOSE CUPS PO SCH (11:28)
[2019-07-31] MEDS: FUROSEMIDE 20 MG TABLET (FP) PO SCH (11:29)
[2019-07-31] MEDS: APIXABAN 2.5 MG TABLET PO SCH ×2 (11:30→23:19)
[2019-07-31] MEDS: LORATADINE 10 MG TABLET PO SCH (11:30)
[2019-07-31] MEDS: ACETAMINOPHEN 650 MG/20.3 ML ORAL SOLUTION (CUPS) PO SCH ×4 (11:35→23:44)
[2019-07-31] MEDS: FERROUS SO4 300 MG/5 ML ORAL SOLN UNIT DOSE CUPS PO SCH ×2 (11:38→18:46)
--- NOTE | 2019-07-31 12:03 | PN ---
Progress Note, [facility] - Note Progress Note: Selected Entries 07/30/19 07/30/19 07/30/19 01:47 02:30 07:00 Breakfast Lunch Supper Temperature 98.6 F 98.3 F 98.7 F 07/30/19 07/30/19 07/30/19 10:00 15:00 18:00 Breakfast 100% Lunch 100% Supper Temperature 98.9 F 98.8 F 07/30/19 07/30/19 07/31/19 19:30 22:58 02:10 Breakfast Lunch Supper 50% Temperature 98.9 F 99.0 F 07/31/19 06:29 Breakfast Lunch Supper Temperature 99.1 F Laboratory Tests 07/31/19 09:00 WBC 6.7 Noted RR yesterday after MBS. (-) aspiration on MBS, but was uncomfortable during study, c/o her back nhurting on the chair. Tolerating diet.
--- NOTE | 2019-07-31 12:07 | PN ---
Progress Note, Physician Chief Complaint: AMS Pneumonia History of Present Illness: NAD mechanical vent CXR R base pne on IV abx Had rapid response yesterday EKG+ CXR normal Labs unremarkable Pt awake and alert, knows she is in the hospital - Current Medication List Current Medications: Active Medications Acetaminophen (Tylenol Oral Solution -) 325 mg PO QID [facility] Last Admin: 07/31/19 11:35 Dose: 325 mg Albuterol/Ipratropium (Duoneb -) 1 amp NEB RQID [facility] Last Admin: 07/31/19 08:10 Dose: 1 amp Apixaban (Eliquis -) 2.5 mg PO BID [facility] Last Admin: 07/31/19 11:30 Dose: 2.5 mg Ascorbic Acid (Vitamin C Oral Solution -) 500 mg PO DAILY [facility] Last Admin: 07/31/19 11:28 Dose: 500 mg Atorvastatin Calcium (Lipitor -) 10 mg PO HS [facility] Last Admin: 07/30/19 22:48 Dose: 10 mg Docusate Sodium (Colace Liquid -) 50 mg PO DAILY [facility] Last Admin: 07/31/19 11:28 Dose: 50 mg Ferrous Sulfate (Feosol) 300 mg PO BIDWM [facility] Last Admin: 07/31/19 11:38 Dose: 300 mg Furosemide (Lasix -) 20 mg PO DAILY [facility] Last Admin: 07/31/19 11:29 Dose: 20 mg Piperacillin Sod/Tazobactam (Sod 3.375 gm/ Dextrose) 50 mls @ 100 mls/hr IVPB Q8H-IV [facility]; Protocol Last Admin: 07/31/19 11:27 Dose: 100 mls/hr Loratadine (Claritin -) 10 mg PO DAILY [facility] Last Admin: 07/31/19 11:30 Dose: 10 mg Metoprolol Tartrate (Lopressor -) 12.5 mg PO BID [facility] Last Admin: 07/31/19 11:28 Dose: 12.5 mg Metoprolol Tartrate (Lopressor Injection -) 5 mg IVPB Q4H PRN PRN Reason: HYPERTENSION - Objective Vital Signs: Vital Signs Temperature 99.1 F 07/31/19 06:29 Pulse Rate 61 07/31/19 06:29 Respiratory Rate 14 07/31/19 09:00 Blood Pressure 112/52 L 07/31/19 06:29 O2 Sat by Pulse Oximetry (%) 100 07/30/19 21:00 Constitutional: Yes: No Distress, Calm, Cachectic Cardiovascular: Yes: Regular Rate and Rhythm Respiratory: Yes: Regular Gastrointestinal: Yes: Normal Bowel Sounds, Soft Genitourinary: Yes: WNL Musculoskeletal: Yes: Muscle Weakness Extremities: Yes: WNL Edema: No Peripheral Pulses WNL: Yes Neurological: Yes: Alert, Oriented Psychiatric: Yes: Alert, Oriented Labs: CBC, BMP 07/31/19 09:00 07/31/19 09:00 INR, PTT INR 1.18 (0.83-1.09) H 07/28/19 03:30 Problem List - Problems (1) A-fib Assessment/Plan: -Continue Eliquis Problems reviewed: Yes Code(s): I48.91 - UNSPECIFIED ATRIAL FIBRILLATION (2) Acute metabolic encephalopathy Problems reviewed: Yes Code(s): G93.41 - METABOLIC ENCEPHALOPATHY (3) Chronic respiratory failure Assessment/Plan: -Pulmonary on board -IV abx -Bronchodilators Problems reviewed: Yes Code(s): J96.10 - CHRONIC RESPIRATORY FAILURE, UNSP W HYPOXIA OR HYPERCAPNIA (4) AICD (automatic cardioverter/defibrillator) present Problems reviewed: Yes Code(s): Z95.810 - PRESENCE OF AUTOMATIC (IMPLANTABLE) CARDIAC DEFIBRILLATOR (5) Altered mental status Assessment/Plan: -Resolved Problems reviewed: Yes Code(s): R41.82 - ALTERED MENTAL STATUS, UNSPECIFIED (6) Functional quadriplegia Problems reviewed: Yes Code(s): R53.2 - FUNCTIONAL QUADRIPLEGIA (7) Pneumonia Assessment/Plan: -RLL -Speech therapy to evaluate swallow for possible aspiration -ID consult -Pulmonary consult -IV abx -Bronchodilators -Leukocytosis improved -Afebrile -Urine legionella pending -MBS showed no aspiration Problems reviewed: Yes Code(s): J18.9 - PNEUMONIA, UNSPECIFIED ORGANISM Qualifiers: (8) Bacteremia Assessment/Plan: -Cultures: Microbiology 07/28/19 07:15 Sputum - Endotrachea Suction/Ventilator Gram Stain - Final 07/28/19 07:15 Sputum - Endotrachea Suction/Ventilator Sputum Culture - Final Proteus Mirabilis Morganella Morganii 07/28/19 03:30 Blood - Peripheral Venous Blood Culture - Final Staph Hominis Sub Sp Hominis 07/29/19 11:40 Blood - Peripheral Venous Blood Culture - Preliminary NO GROWTH OBTAINED AFTER 48 HOURS, INCUBATION TO CONTINUE FOR 3 DAYS. 07/29/19 11:10 Blood - Peripheral Venous Blood Culture - Preliminary NO GROWTH OBTAINED AFTER 48 HOURS, INCUBATION TO CONTINUE FOR 3 DAYS. 07/28/19 03:30 Blood - Peripheral Venous Blood Culture - Preliminary NO GROWTH OBTAINED AFTER 72 HOURS, INCUBATION TO CONTINUE FOR 2 DAYS. 07/28/19 03:15 Urine - Urine Clean Catch Urine Culture - Final Enterococcus Faecium -ID consult -IV abx as per ID Problems reviewed: Yes Code(s): R78.81 - BACTEREMIA Assessment/Plan see problem list
--- NOTE | 2019-07-31 14:36 | PN ---
Progress Note (short form) - Note Progress Note: alert no complaints Vital Signs Period Temp Pulse Resp BP Sys/Vera Pulse Ox Last 24 Hr 98.8 F-99.1 F 58-69 14-18 92-112/47-55 100 cor-rrr lungs clear abd soft,nt ext no edema trach to vent CBC, BMP 07/31/19 09:00 07/31/19 09:00 Microbiology 07/28/19 07:15 Sputum - Endotrachea Suction/Ventilator Gram Stain - Final 07/28/19 07:15 Sputum - Endotrachea Suction/Ventilator Sputum Culture - Final Proteus Mirabilis Morganella Morganii 07/28/19 03:30 Blood - Peripheral Venous Blood Culture - Final Staph Hominis Sub Sp Hominis 07/29/19 11:40 Blood - Peripheral Venous Blood Culture - Preliminary NO GROWTH OBTAINED AFTER 48 HOURS, INCUBATION TO CONTINUE FOR 3 DAYS. 07/29/19 11:10 Blood - Peripheral Venous Blood Culture - Preliminary NO GROWTH OBTAINED AFTER 48 HOURS, INCUBATION TO CONTINUE FOR 3 DAYS. 07/28/19 03:30 Blood - Peripheral Venous Blood Culture - Preliminary NO GROWTH OBTAINED AFTER 72 HOURS, INCUBATION TO CONTINUE FOR 2 DAYS. 07/28/19 03:15 Urine - Urine Clean Catch Urine Culture - Final Enterococcus Faecium imp/reccd episode of unresponsiveness- per PMD- appears resolved pneumonia-on zosyn day #3, can switch to bactrim ds one po bid for another 4 days-please monitor renal function at the [place] bacteremia-- -staph epi- contaminant doubt UTI- ua is negative chronic resp failure abnl lfts- improved multiple antibiotic allergies leukocytosis improved d/w FISHING VESSEL DECKHAND-please monitor renal function at the [place] Problem List - Problems (1) Pneumonia Code(s): J18.9 - PNEUMONIA, UNSPECIFIED ORGANISM Qualifiers: (2) Leukocytosis Code(s): D72.829 - ELEVATED WHITE BLOOD CELL COUNT, UNSPECIFIED (3) Chronic respiratory failure Code(s): J96.10 - CHRONIC RESPIRATORY FAILURE, UNSP W HYPOXIA OR HYPERCAPNIA (4) Allergy to multiple antibiotics Code(s): Z88.1 - ALLERGY STATUS TO OTHER ANTIBIOTIC AGENTS STATUS
--- NOTE | 2019-07-31 14:42 | DS ---
Physical Examination Vital Signs: Vital Signs Temperature 99.1 F 07/31/19 06:29 Pulse Rate 61 07/31/19 06:29 Respiratory Rate 14 07/31/19 13:31 Blood Pressure 112/52 L 07/31/19 06:29 O2 Sat by Pulse Oximetry (%) 100 07/30/19 21:00 Findings/Remarks: This is a 84 y/o woman from [facility] with a pMHx of Chronic Respiratory failure , s/p Trach vent-dependent, COPD, CAD- s/p PM, HTN, HLD, DM, Anemia. Who presents to the ED via ambulance for AMS. Per [place] records patient is less responsive than baseline, no longer opening her eyes to voice or responding to painful stimuli like she normally would. hospital Course: She was diagnosed with RLL pneumonia, treated with Zosyn IV. MBS was negative for aspiration. Constitutional: Yes: No Distress, Calm, Cachectic Cardiovascular: Yes: Regular Rate and Rhythm Respiratory: Yes: Mechanically Ventilated Gastrointestinal: Yes: Normal Bowel Sounds, Soft Renal/: Yes: Incontinence Musculoskeletal: Yes: Other (generalized atrophy) Extremities: Yes: WNL Edema: No Peripheral Pulses WNL: Yes Neurological: Yes: Alert, Oriented Psychiatric: Yes: Alert, Oriented Labs: CBC, BMP 07/31/19 09:00 07/31/19 09:00 Discharge Summary Problems reviewed: Yes Reason For Visit: ACUTE RESPITATORY FAILURE,PNEUMONIA Current Active Problems A-fib (Acute) Acute metabolic encephalopathy (Acute) Allergy to multiple antibiotics (Acute) Bacteremia (Acute) Chronic respiratory failure (Acute) Lethargy (Acute) Transaminitis (Acute) Laboratory Last Values WBC 6.7 K/mm3 (4.0-10.0) 07/31/19 09:00 Corrected WBC (auto) Cancelled 07/29/19 07:00 RBC 3.33 M/mm3 (3.60-5.2) L 07/31/19 09:00 Hgb 9.4 GM/dL (10.7-15.3) L 07/31/19 09:00 Hct 28.8 % (32.4-45.2) L 07/31/19 09:00 MCV 86.5 fl (80-96) 07/31/19 09:00 MCH 28.2 pg (25.7-33.7) 07/31/19 09:00 MCHC 32.6 g/dl (32.0-36.0) 07/31/19 09:00 RDW 15.9 % (11.6-15.6) H 07/31/19 09:00 Plt Count 120 K/MM3 (134-434) L 07/31/19 09:00 MPV 8.5 fl (7.5-11.1) 07/31/19 09:00 Absolute Neuts (auto) 4.8 K/mm3 (1.5-8.0) 07/31/19 09:00 Neutrophils % 72.3 % (42.8-82.8) 07/31/19 09:00 Lymphocytes % 11.8 % (8-40) 07/31/19 09:00 Monocytes % 10.6 % (3.8-10.2) H 07/31/19 09:00 Eosinophils % 4.6 % (0-4.5) H 07/31/19 09:00 Basophils % 0.7 % (0-2.0) 07/31/19 09:00 Nucleated RBC % 0 % (0-0) 07/31/19 09:00 Platelet Estimate Cancelled 07/29/19 07:00 Platelet Comment Cancelled 07/29/19 07:00 PT with INR 13.90 SEC (9.7-13.0) H 07/28/19 03:30 INR 1.18 (0.83-1.09) H 07/28/19 03:30 PTT (Actin FS) 34.2 SECONDS (25.2-36.5) 07/28/19 03:30 Anticoagulation Therapy No Result Required. 07/28/19 06:02 Puncture Site Right radial 07/28/19 06:02 ABG pH 7.33 (7.35-7.45) L 07/28/19 06:02 ABG pCO2 at Pt Temp 61.6 mmHg (35-45) H 07/28/19 06:02 ABG pO2 at Pt Temp 146 mmHg (80-100) H 07/28/19 06:02 ABG HCO3 31.9 mmol/L (22-27) H 07/28/19 06:02 ABG O2 Sat (Measured) 98.8 % (95-98) H 07/28/19 06:02 ABG O2 Content 15.8 % vol 07/28/19 06:02 ABG Base Excess 5.0 meq/l (-2-2) H 07/28/19 06:02 Jose Test Positive 07/28/19 06:02 VBG pH 7.14 (7.31-7.41) L* 07/28/19 03:30 POC VBG pCO2 > 100 mmHg (38-52) H* 07/28/19 03:30 POC VBG pO2 < 49 mmHg (28-48) H 07/28/19 03:30 VBG HCO3 No Result Required. 07/28/19 03:30 VBG O2 Sat (Gianfranco) 48.7 % (70-80) L 07/28/19 03:30 VBG Base Excess No Result Required. 07/28/19 03:30 Carboxyhemoglobin 0.6 % (0-2) 07/28/19 06:02 Methemoglobin < 1.0 % (0-2) 07/28/19 06:02 O2 Delivery Device No Result Required. 07/28/19 06:02 Oxygen Flow Rate Yes 07/28/19 06:02 Vent Mode A/c 07/28/19 06:02 Vent Rate 14 07/28/19 06:02 Mechanical Rate No Result Required. 07/28/19 06:02 PEEP 5.0 cmH2O 07/28/19 06:02 Pressure Support Vent 450 07/28/19 06:02 Sodium 143 mmol/L (136-145) 07/31/19 09:00 Potassium 3.6 mmol/L (3.5-5.1) 07/31/19 09:00 Chloride 106 mmol/L (98-107) 07/31/19 09:00 Carbon Dioxide 33 mmol/L (21-32) H 07/31/19 09:00 Anion Gap 4 MMOL/L (8-16) L 07/31/19 09:00 BUN 20.0 mg/dL (7-18) H 07/31/19 09:00 Creatinine 0.8 mg/dL (0.55-1.3) 07/31/19 09:00 Est GFR (CKD-EPI)AfAm 79.02 07/31/19 09:00 Est GFR (CKD-EPI)NonAf 68.18 07/31/19 09:00 POC Glucometer 134 UNITS (80-120) 07/30/19 13:20 Random Glucose 92 mg/dL (74-106) 07/31/19 09:00 Lactic Acid 1.9 mmol/L (0.4-2.0) 07/28/19 03:30 Calcium 8.3 mg/dL (8.5-10.1) L 07/31/19 09:00 Total Bilirubin 0.3 mg/dL (0.2-1) 07/31/19 09:00 AST 42 U/L (15-37) H 07/31/19 09:00 ALT 73 U/L (13-61) H 07/31/19 09:00 Alkaline Phosphatase 184 U/L (45-117) H 07/31/19 09:00 Creatine Kinase 65 U/L (26-192) 07/28/19 03:30 CK-MB (CK-2) 1.2 ng/mL (0.5-3.6) 07/28/19 03:30 Troponin I < 0.02 ng/ml (0.00-0.05) 07/30/19 13:45 Total Protein 5.9 g/dl (6.4-8.2) L 07/31/19 09:00 Albumin 2.7 g/dl (3.4-5.0) L 07/31/19 09:00 Urine Color Yellow 07/28/19 03:15 Urine Appearance Clear 07/28/19 03:15 Urine pH 6.0 (5.0-8.0) D 07/28/19 03:15 Ur Specific [place] 1.013 (1.010-1.035) 07/28/19 03:15 Urine Protein 2+ (NEGATIVE) H 07/28/19 03:15 Urine Glucose (UA) Negative (NEGATIVE) 07/28/19 03:15 Urine Ketones Negative (NEGATIVE) 07/28/19 03:15 Urine Blood Negative (NEGATIVE) 07/28/19 03:15 Urine Nitrite Negative (NEGATIVE) 07/28/19 03:15 Urine Bilirubin Negative (NEGATIVE) 07/28/19 03:15 Urine Urobilinogen 0.2 mg/dL (0.2-1.0) 07/28/19 03:15 Ur Leukocyte Esterase Negative (NEGATIVE) 07/28/19 03:15 Urine WBC (Auto) 5 /hpf (0-5) 07/28/19 03:15 Urine RBC (Auto) 1 /hpf (0-4) 07/28/19 03:15 Urine Casts (Auto) 28 /lpf (0-8) 07/28/19 03:15 U Pathogenic Cast Auto None seen /lpf (NEGATIVE) 07/28/19 03:15 U Epithel Cells (Auto) 17.4 /HPF (0-5/HPF) 07/28/19 03:15 U Sm Round Cell (Auto) None seen 07/28/19 03:15 Urine Crystals (Auto) Amorphous urates /hpf 07/28/19 03:15 Urine Bacteria (Auto) 931.9 /hpf (NEGATIVE) 07/28/19 03:15 Influenza A (Rapid) Negative (Negative) 07/28/19 03:30 Influenza B (Rapid) Negative (Negative) 07/28/19 03:30 Blood Type A POSITIVE 07/28/19 03:30 Antibody Screen Negative 07/28/19 03:30 Microbiology 07/28/19 07:15 Sputum - Endotrachea Suction/Ventilator Gram Stain - Final 07/28/19 07:15 Sputum - Endotrachea Suction/Ventilator Sputum Culture - Final Proteus Mirabilis Morganella Morganii 07/28/19 03:30 Blood - Peripheral Venous Blood Culture - Final Staph Hominis Sub Sp Hominis 07/29/19 11:40 Blood - Peripheral Venous Blood Culture - Preliminary NO GROWTH OBTAINED AFTER 48 HOURS, INCUBATION TO CONTINUE FOR 3 DAYS. 07/29/19 11:10 Blood - Peripheral Venous Blood Culture - Preliminary NO GROWTH OBTAINED AFTER 48 HOURS, INCUBATION TO CONTINUE FOR 3 DAYS. 07/28/19 03:30 Blood - Peripheral Venous Blood Culture - Preliminary NO GROWTH OBTAINED AFTER 72 HOURS, INCUBATION TO CONTINUE FOR 2 DAYS. 07/28/19 03:15 Urine - Urine Clean Catch Urine Culture - Final Enterococcus Faecium Vital Signs Temp 99.1 F 07/31/19 06:29 Pulse 61 07/31/19 06:29 Resp 14 07/31/19 13:31 BP 112/52 L 07/31/19 06:29 Pulse Ox 100 07/30/19 21:00 Intake & Output 07/30/19 07/31/19 07/31/19 23:59 11:59 23:59 Intake Total 200 150 Balance 200 150 Weight 46.266 kg Intake: IVPB 100 Oral 200 50 Other: Voiding Method Incontinent Incontinent # Unmeasured Voids Void 1 1 Bowel Movement No Yes # Bowel Movements 2 1 Height 5 ft Body Mass Index (BMI) 19.9 Condition: Stable - Instructions Diet, Activity, Other Instructions: Bactrim DS BID x 4 days Check CBC/CMP in 1 week to f/u on renal function Referrals: Jacky Cook MD [Primary Care Provider] - Disposition: CUSTODIAL FACILITY - Home Medications Comprehensive Discharge Medication List: Ambulatory Orders Acetaminophen [Tylenol] 325 mg PO Q6H 07/28/19 Apixaban [Eliquis] 2.5 mg PO BID 07/28/19 Ascorbic Acid [Vitamin C] 500 mg PO DAILY 07/28/19 Atorvastatin Ca [Lipitor] 10 mg PO HS 07/28/19 Docusate Liquid [Colace Liquid -] 50 mg PO DAILY 07/28/19 Ferrous Sulfate 325 mg PO BID 07/28/19 Furosemide 20 mg PO DAILY 07/28/19 Loratadine 10 mg PO DAILY 07/28/19 Metoprolol Tartrate [Lopressor -] 12.5 mg PO BID 07/28/19 Albuterol 2.5/Ipratropium 0.5 [Duoneb -] 1 amp NEB RQID amp 07/30/19 Sulfamethoxazole/Trimethoprim [Bactrim Ds -] 1 tab PO BID #8 tablet 07/31/19 Prescription Drug Monitoring Program (I-STOP) results: I-STOP reviewed and no issues identified
--- NOTE | 2019-07-31 18:51 | HOSP ---
Subjective - Review of Symptoms General: Yes: Other Pulmonary: Yes: Dyspnea, Cough Cardiovascular: Yes: Other (unable to answer) Musculoskeletal: Yes: No Symptoms Neurological: Yes: Confusion Physical Examination Vital Signs: Vital Signs Temperature 98.8 F 07/31/19 18:30 Pulse Rate 89 07/31/19 18:30 Respiratory Rate 14 07/31/19 18:30 Blood Pressure 174/84 H 07/31/19 18:30 O2 Sat by Pulse Oximetry (%) 100 07/31/19 09:00 Constitutional: Yes: Calm Eyes: Yes: WNL HENT: Yes: Atraumatic Neck: Yes: WNL Cardiovascular: Yes: Pulse Irregular Respiratory: Yes: Mechanically Ventilated Gastrointestinal: Yes: Soft Labs: CBC, BMP 07/31/19 09:00 07/31/19 09:00 Hospitalist Encounter Assessment: Patient is an 84 year woman from [facility] with a past medical history of chronic respiratory failure, vent dependent. Her other past medical history includes COPD, CAD- s/p PM, HTN, HLD, DM, Anemia. Who presented to the ED via ambulance for AMS and was cleared for discharge back to [facility] today. Patient developed acute shortness of breath while being placed into the ambulance and had to be sunctioned and ambu bagged by EMS. Mucuous plug removed and patient returned back to her room. During hospitalization, patient was diagnosed with RLL pneumonia and treated with IV zosyn. She had an MBS that was negative for aspiration. neuro: minimally responsive to tactile stimuli lungs: wheezing auscultation, give dose of solumedrol 40 now abdomen: soft cardiac: irregular rate and rhythm plan: chest xray monitor pulse ox on duonebs monitor bp
[2019-07-31] MEDS ORDERED: methylPREDNISolone NA SUCC 40 MG/1 ML VIAL IVPUSH ONE (19:04)
[2019-07-31] MEDS: ATORVASTATIN CA 10 MG TABLET (FP) PO SCH (23:20)
[2019-08-01] MEDS: METOPROLOL TARTRATE 25 MG TABLET (FP) PO SCH ×2 (00:23→11:03)
[2019-08-01] MEDS ORDERED: PIPERACILLIN/TAZOBACTAM 3.375 GM VIAL IVPB ONE ×3 (03:04→17:43)
[2019-08-01] MEDS ORDERED: DEXTROSE 5%-WATER - 50 ML IVPB ONE ×3 (03:05→17:43)
[2019-08-01] MEDS: PIPERACILLIN/TAZOB 3.375 GM 3.375 GM in DEXTROSE 5%-WATER - 50 ML IVPB SCH ×3 (03:21→17:52)
[2019-08-01] MEDS: ALBUTEROL SO4 2.5/IPRATROPIUM 0.5 INH SOL 3 ML VIAL.NEB. NEB SCH ×4 (08:00→21:05)
--- NOTE | 2019-08-01 08:12 | PN ---
Progress Note, Physician Chief Complaint: Pneumonia History of Present Illness: Previous notes and events reviewed sleeping but responsive to tactile stimuli mechanically ventilated NAD yesterday upon discharge patient developed SOB and needed to be suctioned and ambubag by EMS, discharged was placed on hold and repeat CXR done - Current Medication List Current Medications: Active Medications Acetaminophen (Tylenol Oral Solution -) 325 mg PO QID [facility] Last Admin: 07/31/19 23:44 Dose: 325 mg Albuterol/Ipratropium (Duoneb -) 1 amp NEB RQID [facility] Last Admin: 07/31/19 21:50 Dose: 1 amp Apixaban (Eliquis -) 2.5 mg PO BID [facility] Last Admin: 07/31/19 23:19 Dose: 2.5 mg Ascorbic Acid (Vitamin C Oral Solution -) 500 mg PO DAILY [facility] Last Admin: 07/31/19 11:28 Dose: 500 mg Atorvastatin Calcium (Lipitor -) 10 mg PO HS [facility] Last Admin: 07/31/19 23:20 Dose: 10 mg Docusate Sodium (Colace Liquid -) 50 mg PO DAILY [facility] Last Admin: 07/31/19 11:28 Dose: 50 mg Ferrous Sulfate (Feosol) 300 mg PO BIDWM [facility] Last Admin: 07/31/19 18:46 Dose: Not Given Furosemide (Lasix -) 20 mg PO DAILY [facility] Last Admin: 07/31/19 11:29 Dose: 20 mg Piperacillin Sod/Tazobactam (Sod 3.375 gm/ Dextrose) 50 mls @ 100 mls/hr IVPB Q8H-IV [facility]; Protocol Last Admin: 08/01/19 03:21 Dose: 100 mls/hr Loratadine (Claritin -) 10 mg PO DAILY [facility] Last Admin: 07/31/19 11:30 Dose: 10 mg Metoprolol Tartrate (Lopressor -) 12.5 mg PO BID [facility] Last Admin: 08/01/19 00:23 Dose: Not Given Metoprolol Tartrate (Lopressor Injection -) 5 mg IVPB Q4H PRN PRN Reason: HYPERTENSION - Objective Vital Signs: Vital Signs Temperature 97.5 F L 08/01/19 06:30 Pulse Rate 56 L 08/01/19 06:30 Respiratory Rate 18 08/01/19 06:30 Blood Pressure 103/88 08/01/19 06:30 O2 Sat by Pulse Oximetry (%) 99 07/31/19 21:00 Constitutional: Yes: No Distress, Calm Eyes: Yes: Conjunctiva Clear HENT: Yes: Atraumatic Neck: Yes: Other (trach) Cardiovascular: Yes: Regular Rate and Rhythm Respiratory: Yes: Regular, Mechanically Ventilated, Rhonchi Gastrointestinal: Yes: Normal Bowel Sounds, Soft Genitourinary: Yes: Incontinence Musculoskeletal: Yes: Muscle Weakness Extremities: Yes: WNL Edema: No Neurological: Yes: Alert, Pre-Existing Deficit Psychiatric: Yes: Alert Labs: CBC, BMP 07/31/19 09:00 07/31/19 09:00 INR, PTT INR 1.18 (0.83-1.09) H 07/28/19 03:30 Microbiology 07/28/19 03:30 Blood - Peripheral Venous Blood Culture - Preliminary NO GROWTH OBTAINED AFTER 96 HOURS, INCUBATION TO CONTINUE FOR 1 DAYS. 07/28/19 07:15 Sputum - Endotrachea Suction/Ventilator Gram Stain - Final 07/28/19 07:15 Sputum - Endotrachea Suction/Ventilator Sputum Culture - Final Proteus Mirabilis Morganella Morganii 07/28/19 03:30 Blood - Peripheral Venous Blood Culture - Final Staph Hominis Sub Sp Hominis 07/29/19 11:40 Blood - Peripheral Venous Blood Culture - Preliminary NO GROWTH OBTAINED AFTER 48 HOURS, INCUBATION TO CONTINUE FOR 3 DAYS. 07/29/19 11:10 Blood - Peripheral Venous Blood Culture - Preliminary NO GROWTH OBTAINED AFTER 48 HOURS, INCUBATION TO CONTINUE FOR 3 DAYS. 07/28/19 03:15 Urine - Urine Clean Catch Urine Culture - Final Enterococcus Faecium - ....Imaging Chest X-ray: Report Reviewed Problem List - Problems (1) A-fib Assessment/Plan: -Eliquis -Metoprolol for rate control Code(s): I48.91 - UNSPECIFIED ATRIAL FIBRILLATION (2) Acute metabolic encephalopathy Assessment/Plan: -2/2 pneumonia Code(s): G93.41 - METABOLIC ENCEPHALOPATHY (3) Acute and chronic respiratory failure with hypercapnia Assessment/Plan: -Pulmonary on board -Mechanically ventilated -bronchodilators -keep SpO2 >90% -CXR shows blunting right angle and some fluid with atelectasis or infiltrate at the left base, scarring JOVANNA -repeat CXR after SOB episode yesterday shows no significant changes from 07/30/19 Code(s): J96.22 - ACUTE AND CHRONIC RESPIRATORY FAILURE WITH HYPERCAPNIA (4) Functional quadriplegia Assessment/Plan: -PT -fall precautions Code(s): R53.2 - FUNCTIONAL QUADRIPLEGIA (5) Hyperlipemia Assessment/Plan: -Atorvastatin Code(s): E78.5 - HYPERLIPIDEMIA, UNSPECIFIED (6) Pneumonia Assessment/Plan: -Pulmonary and ID on board -Mechanically ventilated -bronchodilators -keep SpO2 >90% -CXR shows blunting right angle and some fluid with atelectasis or infiltrate at the left base, scarring JOVANNA -repeat CXR after SOB episode yesterday shows no significant changes from 07/30/19 -Zosyn -no leukocytosis -aferbile Code(s): J18.9 - PNEUMONIA, UNSPECIFIED ORGANISM Qualifiers: Assessment/Plan see problem list
[2019-08-01] MEDS ORDERED: PT OWN MED DRAWER 7, Y5N ONE (09:07)
[2019-08-01 09:22] LABS: BASO % 0.4 % (0-2.0); EOS % 0.2 % (0-4.5); HEMATOCRIT 30.9 % (32.4-45.2); LYMPH % 8.3 % (8-40); MCH 28.2 pg (25.7-33.7); MCHC 32.3 g/dl (32.0-36.0); MEAN CELL VOLUME 87.2 fl (80-96); MEAN PLT VOLUME 9.4 fl (7.5-11.1); MONO % 1.6 % (3.8-10.2); NEUT % 89.5 % (42.8-82.8); PLATELET COUNT 129 K/MM3 (134-434); RBC 3.55 M/mm3 (3.60-5.2); RDW 15.6 % (11.6-15.6); WHITE BLOOD COUNT 4.5 K/mm3 (4.0-10.0)
[2019-08-01 09:53] LABS: ALBUMIN 2.8 g/dl (3.4-5.0); BILIRUBIN,TOTAL 0.3 mg/dL (0.2-1); BLOOD UREA NITROGEN 20.8 mg/dL (7-18); CALCIUM 8.5 mg/dL (8.5-10.1); CREATININE 0.8 mg/dL (0.55-1.3); POTASSIUM 4.1 mmol/L (3.5-5.1); TOT PROT 6.3 g/dl (6.4-8.2)
[2019-08-01] MEDS: FERROUS SO4 300 MG/5 ML ORAL SOLN UNIT DOSE CUPS PO SCH ×2 (10:54→17:52)
[2019-08-01] MEDS: LORATADINE 10 MG TABLET PO SCH (10:54)
[2019-08-01] MEDS: APIXABAN 2.5 MG TABLET PO SCH (10:54)
[2019-08-01] MEDS: DOCUSATE NA 100 MG/10 ML UNIT-DOSE CUPS PO SCH (10:54)
[2019-08-01] MEDS: ACETAMINOPHEN 650 MG/20.3 ML ORAL SOLUTION (CUPS) PO SCH ×3 (10:54→17:51)
[2019-08-01] MEDS: FUROSEMIDE 20 MG TABLET (FP) PO SCH (10:54)
[2019-08-01] MEDS: ASCORBIC ACID 500 MG/5 ML UNIT DOSE CUP PO SCH (10:56)
--- NOTE | 2019-08-01 13:32 | PN ---
Progress Note (short form) - Note Progress Note: PULMONARY AWAKE BROUGHT BACK TO HOSPITAL WHILE ENROUTE TO SNF DUE TO INCREASE RESP DISTRESS/ MUCOUS PLUG VSS/AFEBRILE Constitutional: Yes: Awake and alert, NAD Eyes: Yes: Conjunctiva Clear HENT: Yes: Atraumatic, Normocephalic Neck: Yes: Trachea Midline, Other (Trach intact ) Cardiovascular: Yes: Regular Rate and Rhythm Respiratory: Yes: Diminished, Mechanically Ventilated, Rhonchi. No: Rales, Stridor, Tachypnea, Wheezes ...Inspection: Yes: WNL ...Clubbing: No Gastrointestinal: Yes: Normal Bowel Sounds, Soft Musculoskeletal: Yes: WNL Edema: No Peripheral Pulses WNL: Yes Integumentary: Yes: WNL Neurological: Yes: Awake and alert Labs: NOTED Problem List - Problems (1) A-fib Code(s): I48.91 - UNSPECIFIED ATRIAL FIBRILLATION (2) Acute metabolic encephalopathy Code(s): G93.41 - METABOLIC ENCEPHALOPATHY (3) Chronic respiratory failure Code(s): J96.10 - CHRONIC RESPIRATORY FAILURE, UNSP W HYPOXIA OR HYPERCAPNIA (4) Lethargy Code(s): R53.83 - OTHER FATIGUE (5) Transaminitis Code(s): R74.0 - NONSPEC ELEV OF LEVELS OF TRANSAMNS & LACTIC ACID DEHYDRGNSE (6) AICD (automatic cardioverter/defibrillator) present Code(s): Z95.810 - PRESENCE OF AUTOMATIC (IMPLANTABLE) CARDIAC DEFIBRILLATOR (7) Acute and chronic respiratory failure with hypercapnia Code(s): J96.22 - ACUTE AND CHRONIC RESPIRATORY FAILURE WITH HYPERCAPNIA (8) Altered mental status Code(s): R41.82 - ALTERED MENTAL STATUS, UNSPECIFIED (9) Anemia Code(s): D64.9 - ANEMIA, UNSPECIFIED (10) Atelectasis Code(s): J98.11 - ATELECTASIS (11) COPD (chronic obstructive pulmonary disease) Code(s): J44.9 - CHRONIC OBSTRUCTIVE PULMONARY DISEASE, UNSPECIFIED (12) HTN (hypertension) Code(s): I10 - ESSENTIAL (PRIMARY) HYPERTENSION (13) PAF (paroxysmal atrial fibrillation) Code(s): I48.0 - PAROXYSMAL ATRIAL FIBRILLATION (14) Pneumonia Code(s): J18.9 - PNEUMONIA, UNSPECIFIED ORGANISM Qualifiers: (15) Respirator dependence Code(s): Z99.11 - DEPENDENCE ON RESPIRATOR [VENTILATOR] STATUS (16) Seizure Code(s): R56.9 - UNSPECIFIED CONVULSIONS Assessment/Plan Frequent suctioning VTE prophylaxis BD TX PRN No clear indication for systemic steroids PO as tolerated Brandi FLOREZ MD
--- NOTE | 2019-08-01 19:24 | RAPID ---
Physical Examination Vital Signs: Vital Signs Temperature 98.8 F 08/01/19 18:00 Pulse Rate 64 08/01/19 18:00 Respiratory Rate 18 08/01/19 18:00 Blood Pressure 117/78 08/01/19 18:00 O2 Sat by Pulse Oximetry (%) 100 08/01/19 09:00 Rapid Response was called [id number]. Rapid team to the bedside. Patient was noted by the nurse to be in respiratory distress, lethargic, diaphoretic. Patient unresponsive to sternal rub, voice, or commands initially. Not able to provide ROS. However, slowly became more responsive. Vitals: BP 170s/90 on manual measurement Subsequent measurements HR 107, BP 187/96 with vitals machine SpO2 95%+ Exam: lethargic, diaphoretic, somnolent Cardiac: RRR no murmurs Resp: coarse breath sounds bilaterally. mechanically vented Abd: soft, non distended, non tender Neuro: cataracts bilaterally, pupils minimally reactive to light Extremities: moves spontaneously, heel pads in place. 2+ radial pulses, warm, well perfused EKG reviewed, sinus tachycardia. no ischemic changes noted CXR ordered CBC, CMP, trops, Mg, Phos, ABG ordered Nurse to call primary team Labs: CBC, BMP 08/01/19 07:30 08/01/19 07:30
[2019-08-01 19:48] LABS: BASO % 0.2 % (0-2.0); EOS % 0.2 % (0-4.5); HEMATOCRIT 39.3 % (32.4-45.2); HEMOGLOBIN 12.3 GM/dL (10.7-15.3); LYMPH % 26.7 % (8-40); MCH 27.9 pg (25.7-33.7); MCHC 31.3 g/dl (32.0-36.0); MEAN CELL VOLUME 89.2 fl (80-96); MEAN PLT VOLUME 9.2 fl (7.5-11.1); NEUT % 66.9 % (42.8-82.8); PLATELET COUNT 229 K/MM3 (134-434); RDW 16.2 % (11.6-15.6); WHITE BLOOD COUNT 12.6 K/mm3 (4.0-10.0)
[2019-08-01 19:57] LABS: ARTERIAL BLD GAS O2 SATURATION 99.5 % (95-98); ARTERIAL BLOOD GAS PCO2 63.4 mmHg (35-45); ARTERIAL BLOOD GAS PO2 250 mmHg (80-100); ARTERIAL BLOOD GAS pH 7.33 (7.35-7.45)
[2019-08-01 19:58] LABS: ALLENS TEST POSITIVE
[2019-08-01 20:18] LABS: ALBUMIN 3.5 g/dl (3.4-5.0); ALK PHOS 327 U/L (45-117); ANION GAP 3 MMOL/L (8-16); BILIRUBIN,TOTAL 0.4 mg/dL (0.2-1); BLOOD UREA NITROGEN 21.3 mg/dL (7-18); CALCIUM 9.1 mg/dL (8.5-10.1); CHLORIDE 103 mmol/L (98-107); CO2 36 mmol/L (21-32); CREATININE 0.9 mg/dL (0.55-1.3); GLUCOSE,RANDOM 137 mg/dL (74-106); MAGNESIUM 2.6 mg/dL (1.8-2.4); PHOSPHOROUS 5.5 mg/dL (2.5-4.9); POTASSIUM 4.2 mmol/L (3.5-5.1); SGOT/AST 79 U/L (15-37); SGPT/ALT 115 U/L (13-61); SODIUM 143 mmol/L (136-145)
[2019-08-02] MEDS: METOPROLOL TARTRATE 25 MG TABLET (FP) PO SCH ×4 (00:54→22:22)
[2019-08-02] MEDS: ACETAMINOPHEN 650 MG/20.3 ML ORAL SOLUTION (CUPS) PO SCH ×5 (00:54→22:22)
[2019-08-02] MEDS: ATORVASTATIN CA 10 MG TABLET (FP) PO SCH ×2 (00:54→22:22)
[2019-08-02] MEDS: APIXABAN 2.5 MG TABLET PO SCH ×3 (00:54→22:22)
[2019-08-02] MEDS ORDERED: DEXTROSE 5%-WATER - 50 ML IVPB ONE ×3 (01:09→16:54)
[2019-08-02] MEDS ORDERED: PIPERACILLIN/TAZOBACTAM 3.375 GM VIAL IVPB ONE ×3 (01:09→16:54)
[2019-08-02] MEDS: PIPERACILLIN/TAZOB 3.375 GM 3.375 GM in DEXTROSE 5%-WATER - 50 ML IVPB SCH ×3 (02:44→17:28)
[2019-08-02] MEDS: ALBUTEROL SO4 2.5/IPRATROPIUM 0.5 INH SOL 3 ML VIAL.NEB. NEB SCH ×4 (08:00→20:15)
[2019-08-02 08:15] LABS: HEMOGLOBIN 9.3 GM/dL (10.7-15.3); MCH 28.4 pg (25.7-33.7); MCHC 32.2 g/dl (32.0-36.0); MEAN CELL VOLUME 88.1 fl (80-96); PLATELET COUNT 137 K/MM3 (134-434); RDW 16.1 % (11.6-15.6); WHITE BLOOD COUNT 6.7 K/mm3 (4.0-10.0)
[2019-08-02 08:58] LABS: ALBUMIN 2.9 g/dl (3.4-5.0); BILIRUBIN,TOTAL 0.4 mg/dL (0.2-1); BLOOD UREA NITROGEN 24.6 mg/dL (7-18); CREATININE 0.9 mg/dL (0.55-1.3); POTASSIUM 3.4 mmol/L (3.5-5.1); TOT PROT 6.3 g/dl (6.4-8.2)
[2019-08-02] MEDS: DOCUSATE NA 100 MG/10 ML UNIT-DOSE CUPS PO SCH (09:08)
[2019-08-02] MEDS: FERROUS SO4 300 MG/5 ML ORAL SOLN UNIT DOSE CUPS PO SCH ×2 (09:12→17:27)
[2019-08-02] MEDS: FUROSEMIDE 20 MG TABLET (FP) PO SCH (09:13)
[2019-08-02] MEDS: ASCORBIC ACID 500 MG/5 ML UNIT DOSE CUP PO SCH (09:14)
[2019-08-02] MEDS: LORATADINE 10 MG TABLET PO SCH (09:17)
--- NOTE | 2019-08-02 09:55 | EKG ---
Test Reason : Blood Pressure : / mmHG Vent. Rate : 109 BPM Atrial Rate : 109 BPM P-R Int : 196 ms QRS Dur : 082 ms QT Int : 296 ms P-R-T Axes : 093 079 044 degrees QTc Int : 398 ms SINUS TACHYCARDIA WITH PREMATURE ATRIAL COMPLEXES ANTEROSEPTAL INFARCT , AGE UNDETERMINED ABNORMAL ECG WHEN COMPARED WITH ECG OF 30-JUL-2019 13:43, PREMATURE ATRIAL COMPLEXES ARE NOW PRESENT VENT. RATE HAS INCREASED BY 38 BPM ANTEROSEPTAL INFARCT IS NOW PRESENT QT HAS SHORTENED Confirmed by DOUG GOMEZ, FILOMENA ([id number]) on 08/02/2019 9:54:48 AM Referred By: Confirmed By:FILOMENA CAMACHO MD
--- NOTE | 2019-08-02 11:45 | PN ---
Progress Note, Physician - Current Medication List Current Medications: Active Medications Acetaminophen (Tylenol Oral Solution -) 325 mg PO QID [facility] Last Admin: 08/02/19 09:12 Dose: 325 mg Albuterol/Ipratropium (Duoneb -) 1 amp NEB RQID [facility] Last Admin: 08/02/19 08:00 Dose: 1 amp Apixaban (Eliquis -) 2.5 mg PO BID [facility] Last Admin: 08/02/19 09:13 Dose: 2.5 mg Ascorbic Acid (Vitamin C Oral Solution -) 500 mg PO DAILY [facility] Last Admin: 08/02/19 09:14 Dose: 500 mg Atorvastatin Calcium (Lipitor -) 10 mg PO HS [facility] Last Admin: 08/02/19 00:54 Dose: 10 mg Docusate Sodium (Colace Liquid -) 50 mg PO DAILY [facility] Last Admin: 08/02/19 09:08 Dose: 50 mg Ferrous Sulfate (Feosol) 300 mg PO BIDWM [facility] Last Admin: 08/02/19 09:12 Dose: 300 mg Furosemide (Lasix -) 20 mg PO DAILY [facility] Last Admin: 08/02/19 09:13 Dose: 20 mg Piperacillin Sod/Tazobactam (Sod 3.375 gm/ Dextrose) 50 mls @ 100 mls/hr IVPB Q8H-IV [facility]; Protocol Last Admin: 08/02/19 09:08 Dose: 100 mls/hr Potassium Chloride (Potassium Chloride 10 Meq Premix Ivpb -) 10 meq in 100 mls @ 100 mls/hr IVPB Q60M [facility] Stop: 08/02/19 13:44 Loratadine (Claritin -) 10 mg PO DAILY [facility] Last Admin: 08/02/19 09:17 Dose: 10 mg Methylprednisolone Sodium Succinate (Solu-Medrol -) 40 mg IVPUSH BID [facility] Metoprolol Tartrate (Lopressor Injection -) 5 mg IVPB Q4H PRN PRN Reason: HYPERTENSION Metoprolol Tartrate (Lopressor -) 25 mg PO BID [facility] - Objective Vital Signs: Vital Signs Temperature 99.4 F 08/02/19 08:50 Pulse Rate 109 H 08/02/19 09:00 Respiratory Rate 14 08/02/19 08:50 Blood Pressure 183/80 H 08/02/19 09:00 O2 Sat by Pulse Oximetry (%) 96 08/01/19 21:00 Cardiovascular: Yes: S1, S2 Respiratory: Yes: Diminished, Mechanically Ventilated, Rhonchi Gastrointestinal: Yes: Normal Bowel Sounds, Soft Labs: CBC, BMP 08/02/19 07:20 08/02/19 06:00 INR, PTT INR 1.18 (0.83-1.09) H 07/28/19 03:30 Problem List - Problems (1) Pneumonia Code(s): J18.9 - PNEUMONIA, UNSPECIFIED ORGANISM Qualifiers: (2) Acute and chronic respiratory failure with hypercapnia Code(s): J96.22 - ACUTE AND CHRONIC RESPIRATORY FAILURE WITH HYPERCAPNIA (3) A-fib Code(s): I48.91 - UNSPECIFIED ATRIAL FIBRILLATION (4) AICD (automatic cardioverter/defibrillator) present Code(s): Z95.810 - PRESENCE OF AUTOMATIC (IMPLANTABLE) CARDIAC DEFIBRILLATOR (5) Anemia Code(s): D64.9 - ANEMIA, UNSPECIFIED (6) Sepsis Code(s): A41.9 - SEPSIS, UNSPECIFIED ORGANISM (7) Transaminitis Code(s): R74.0 - NONSPEC ELEV OF LEVELS OF TRANSAMNS & LACTIC ACID DEHYDRGNSE (8) Functional quadriplegia Code(s): R53.2 - FUNCTIONAL QUADRIPLEGIA (9) Seizure Code(s): R56.9 - UNSPECIFIED CONVULSIONS Assessment/Plan - Problems (1) A-fib Assessment/Plan: -Eliquis -Metoprolol for rate control--increase Code(s): I48.91 - UNSPECIFIED ATRIAL FIBRILLATION (2) Acute metabolic encephalopathy Assessment/Plan: -2/2 pneumonia Code(s): G93.41 - METABOLIC ENCEPHALOPATHY (3) Acute and chronic respiratory failure with hypercapnia Assessment/Plan: -Pulmonary on board -Mechanically ventilated -bronchodilators -keep SpO2 >90% -CXR shows blunting right angle and some fluid with atelectasis or infiltrate at the left base, scarring JOVANNA -repeat CXR after SOB episode yesterday shows no significant changes from 07/30/19 -Repeat am -IV steroidss Code(s): J96.22 - ACUTE AND CHRONIC RESPIRATORY FAILURE WITH HYPERCAPNIA (4) Functional quadriplegia Assessment/Plan: -PT -fall precautions Code(s): R53.2 - FUNCTIONAL QUADRIPLEGIA (5) Hyperlipemia Assessment/Plan: -Atorvastatin Code(s): E78.5 - HYPERLIPIDEMIA, UNSPECIFIED (6) Pneumonia Assessment/Plan: -Pulmonary and ID on board -Mechanically ventilated -bronchodilators -keep SpO2 >90% -CXR shows blunting right angle and some fluid with atelectasis or infiltrate at the left base, scarring JOVANNA -repeat CXR after SOB episode yesterday shows no significant changes from 07/30/19 -Zosyn -no leukocytosis -aferbile -NPO Code(s): J18.9 - PNEUMONIA, UNSPECIFIED ORGANISM Qualifiers:
--- NOTE | 2019-08-02 12:27 | PN ---
Progress Note (short form) - Note Progress Note: PULMONARY AWAKE /MUCOUS PLUGGING CONTINUES CAUSING RESP DIFFICULTY VSS/AFEBRILE Constitutional: Yes: Awake and alert, NAD Eyes: Yes: Conjunctiva Clear HENT: Yes: Atraumatic, Normocephalic Neck: Yes: Trachea Midline, Other (Trach intact ) Cardiovascular: Yes: Regular Rate and Rhythm Respiratory: Yes: Diminished, Mechanically Ventilated, Rhonchi. No: Rales, Stridor, Tachypnea, Wheezes ...Inspection: Yes: WNL ...Clubbing: No Gastrointestinal: Yes: Normal Bowel Sounds, Soft Musculoskeletal: Yes: WNL Edema: No Peripheral Pulses WNL: Yes Integumentary: Yes: WNL Neurological: Yes: Awake and alert Labs: NOTED Problem List - Problems (1) A-fib Code(s): I48.91 - UNSPECIFIED ATRIAL FIBRILLATION (2) Acute metabolic encephalopathy Code(s): G93.41 - METABOLIC ENCEPHALOPATHY (3) Chronic respiratory failure Code(s): J96.10 - CHRONIC RESPIRATORY FAILURE, UNSP W HYPOXIA OR HYPERCAPNIA (4) Lethargy Code(s): R53.83 - OTHER FATIGUE (5) Transaminitis Code(s): R74.0 - NONSPEC ELEV OF LEVELS OF TRANSAMNS & LACTIC ACID DEHYDRGNSE (6) AICD (automatic cardioverter/defibrillator) present Code(s): Z95.810 - PRESENCE OF AUTOMATIC (IMPLANTABLE) CARDIAC DEFIBRILLATOR (7) Acute and chronic respiratory failure with hypercapnia Code(s): J96.22 - ACUTE AND CHRONIC RESPIRATORY FAILURE WITH HYPERCAPNIA (8) Altered mental status Code(s): R41.82 - ALTERED MENTAL STATUS, UNSPECIFIED (9) Anemia Code(s): D64.9 - ANEMIA, UNSPECIFIED (10) Atelectasis Code(s): J98.11 - ATELECTASIS (11) COPD (chronic obstructive pulmonary disease) Code(s): J44.9 - CHRONIC OBSTRUCTIVE PULMONARY DISEASE, UNSPECIFIED (12) HTN (hypertension) Code(s): I10 - ESSENTIAL (PRIMARY) HYPERTENSION (13) PAF (paroxysmal atrial fibrillation) Code(s): I48.0 - PAROXYSMAL ATRIAL FIBRILLATION (14) Pneumonia Code(s): J18.9 - PNEUMONIA, UNSPECIFIED ORGANISM Qualifiers: (15) Respirator dependence Code(s): Z99.11 - DEPENDENCE ON RESPIRATOR [VENTILATOR] STATUS (16) Seizure Code(s): R56.9 - UNSPECIFIED CONVULSIONS Assessment/Plan Frequent suctioning VTE prophylaxis BD TX PRN No clear indication for systemic steroids PO as tolerated Brandi FLOREZ MD
[2019-08-02] MEDS: KCL 10 MEQ IVPB 10 MEQ/100 ML INFUS.BAG IVPB SCH ×2 (13:49→14:46)
[2019-08-02] MEDS: methylPREDNISolone NA SUCC 40 MG/1 ML VIAL IVPUSH SCH (22:22)
[2019-08-03] MEDS ORDERED: DEXTROSE 5%-WATER - 50 ML IVPB ONE ×4 (03:39→17:59)
[2019-08-03] MEDS ORDERED: PIPERACILLIN/TAZOBACTAM 3.375 GM VIAL IVPB ONE ×4 (03:39→17:59)
[2019-08-03] MEDS: PIPERACILLIN/TAZOB 3.375 GM 3.375 GM in DEXTROSE 5%-WATER - 50 ML IVPB SCH ×3 (03:47→17:07)
[2019-08-03] MEDS: ALBUTEROL SO4 2.5/IPRATROPIUM 0.5 INH SOL 3 ML VIAL.NEB. NEB SCH ×4 (07:35→20:28)
[2019-08-03 07:59] LABS: BASO % 0.2 % (0-2.0); EOS % 0.3 % (0-4.5); HEMOGLOBIN 9.7 GM/dL (10.7-15.3); LYMPH % 7.5 % (8-40); MCH 28.3 pg (25.7-33.7); MCHC 32.2 g/dl (32.0-36.0); MEAN PLT VOLUME 8.9 fl (7.5-11.1); MONO % 2.4 % (3.8-10.2); NEUT % 89.6 % (42.8-82.8); PLATELET COUNT 137 K/MM3 (134-434); RBC 3.41 M/mm3 (3.60-5.2); RDW 16.2 % (11.6-15.6); WHITE BLOOD COUNT 6.7 K/mm3 (4.0-10.0)
[2019-08-03 08:13] LABS: ALK PHOS 193 U/L (45-117); ANION GAP 5 MMOL/L (8-16); BILIRUBIN,TOTAL 0.4 mg/dL (0.2-1); BLOOD UREA NITROGEN 22.4 mg/dL (7-18); CALCIUM 8.7 mg/dL (8.5-10.1); CHLORIDE 105 mmol/L (98-107); CO2 32 mmol/L (21-32); CREATININE 0.8 mg/dL (0.55-1.3); GLUCOSE,RANDOM 107 mg/dL (74-106); POTASSIUM 4.1 mmol/L (3.5-5.1); SGOT/AST 25 U/L (15-37); SGPT/ALT 62 U/L (13-61); SODIUM 143 mmol/L (136-145); TOT PROT 6.4 g/dl (6.4-8.2)
[2019-08-03] MEDS: FERROUS SO4 300 MG/5 ML ORAL SOLN UNIT DOSE CUPS PO SCH ×2 (09:06→17:07)
[2019-08-03] MEDS: methylPREDNISolone NA SUCC 40 MG/1 ML VIAL IVPUSH SCH ×2 (09:09→21:39)
[2019-08-03] MEDS: APIXABAN 2.5 MG TABLET PO SCH ×2 (09:14→21:39)
[2019-08-03] MEDS: DOCUSATE NA 100 MG/10 ML UNIT-DOSE CUPS PO SCH (09:14)
[2019-08-03] MEDS: FUROSEMIDE 20 MG TABLET (FP) PO SCH (09:14)
[2019-08-03] MEDS: LORATADINE 10 MG TABLET PO SCH (09:15)
[2019-08-03] MEDS: METOPROLOL TARTRATE 25 MG TABLET (FP) PO SCH ×2 (09:16→21:39)
[2019-08-03] MEDS: ACETAMINOPHEN 650 MG/20.3 ML ORAL SOLUTION (CUPS) PO SCH (09:16)
--- NOTE | 2019-08-03 11:18 | PN ---
Progress Note, Physician - Current Medication List Current Medications: Active Medications Acetaminophen (Tylenol Oral Solution -) 325 mg PO QID [facility] Last Admin: 08/03/19 09:16 Dose: 325 mg Albuterol/Ipratropium (Duoneb -) 1 amp NEB RQID [facility] Last Admin: 08/03/19 07:35 Dose: 1 amp Apixaban (Eliquis -) 2.5 mg PO BID [facility] Last Admin: 08/03/19 09:14 Dose: 2.5 mg Ascorbic Acid (Vitamin C Oral Solution -) 500 mg PO DAILY [facility] Last Admin: 08/02/19 09:14 Dose: 500 mg Atorvastatin Calcium (Lipitor -) 10 mg PO HS [facility] Last Admin: 08/02/19 22:22 Dose: 10 mg Docusate Sodium (Colace Liquid -) 50 mg PO DAILY [facility] Last Admin: 08/03/19 09:14 Dose: 50 mg Ferrous Sulfate (Feosol) 300 mg PO BIDWM [facility] Last Admin: 08/03/19 09:06 Dose: 300 mg Furosemide (Lasix -) 20 mg PO DAILY [facility] Last Admin: 08/03/19 09:14 Dose: 20 mg Piperacillin Sod/Tazobactam (Sod 3.375 gm/ Dextrose) 50 mls @ 100 mls/hr IVPB Q8H-IV [facility]; Protocol Last Admin: 08/03/19 09:08 Dose: 100 mls/hr Loratadine (Claritin -) 10 mg PO DAILY [facility] Last Admin: 08/03/19 09:15 Dose: 10 mg Methylprednisolone Sodium Succinate (Solu-Medrol -) 40 mg IVPUSH BID [facility] Last Admin: 08/03/19 09:09 Dose: 40 mg Metoprolol Tartrate (Lopressor Injection -) 5 mg IVPB Q4H PRN PRN Reason: HYPERTENSION Metoprolol Tartrate (Lopressor -) 25 mg PO BID [facility] Last Admin: 08/03/19 09:16 Dose: 25 mg - Objective Vital Signs: Vital Signs Temperature 98.0 F 08/03/19 09:00 Pulse Rate 66 08/03/19 09:00 Respiratory Rate 14 08/03/19 09:00 Blood Pressure 101/63 08/03/19 09:00 O2 Sat by Pulse Oximetry (%) 100 08/03/19 09:00 Cardiovascular: Yes: S1, S2 Respiratory: Yes: Mechanically Ventilated Gastrointestinal: Yes: Normal Bowel Sounds, Soft Labs: CBC, BMP 08/03/19 07:00 08/03/19 07:00 INR, PTT INR 1.18 (0.83-1.09) H 07/28/19 03:30 Problem List - Problems (1) Pneumonia Code(s): J18.9 - PNEUMONIA, UNSPECIFIED ORGANISM Qualifiers: (2) Acute and chronic respiratory failure with hypercapnia Code(s): J96.22 - ACUTE AND CHRONIC RESPIRATORY FAILURE WITH HYPERCAPNIA (3) A-fib Code(s): I48.91 - UNSPECIFIED ATRIAL FIBRILLATION (4) AICD (automatic cardioverter/defibrillator) present Code(s): Z95.810 - PRESENCE OF AUTOMATIC (IMPLANTABLE) CARDIAC DEFIBRILLATOR (5) Anemia Code(s): D64.9 - ANEMIA, UNSPECIFIED (6) Sepsis Code(s): A41.9 - SEPSIS, UNSPECIFIED ORGANISM (7) Transaminitis Code(s): R74.0 - NONSPEC ELEV OF LEVELS OF TRANSAMNS & LACTIC ACID DEHYDRGNSE (8) Functional quadriplegia Code(s): R53.2 - FUNCTIONAL QUADRIPLEGIA (9) Seizure Code(s): R56.9 - UNSPECIFIED CONVULSIONS Assessment/Plan - Problems (1) A-fib Assessment/Plan: -Eliquis -Metoprolol for rate control--increase Code(s): I48.91 - UNSPECIFIED ATRIAL FIBRILLATION (2) Acute metabolic encephalopathy Assessment/Plan: -2/2 pneumonia Code(s): G93.41 - METABOLIC ENCEPHALOPATHY (3) Acute and chronic respiratory failure with hypercapnia Assessment/Plan: -Pulmonary on board -Mechanically ventilated -bronchodilators -keep SpO2 >90% -CXR shows blunting right angle and some fluid with atelectasis or infiltrate at the left base, scarring JOVANNA -repeat CXR after SOB episode yesterday shows no significant changes from 07/30/19 -Repeat am -IV steroidss Code(s): J96.22 - ACUTE AND CHRONIC RESPIRATORY FAILURE WITH HYPERCAPNIA (4) Functional quadriplegia Assessment/Plan: -PT -fall precautions Code(s): R53.2 - FUNCTIONAL QUADRIPLEGIA (5) Hyperlipemia Assessment/Plan: -Atorvastatin Code(s): E78.5 - HYPERLIPIDEMIA, UNSPECIFIED (6) Pneumonia Assessment/Plan: -Pulmonary and ID on board -Mechanically ventilated -bronchodilators -keep SpO2 >90% -CXR shows blunting right angle and some fluid with atelectasis or infiltrate at the left base, scarring JOVANNA -repeat CXR after SOB episode yesterday shows no significant changes from 07/30/19 -Zosyn -no leukocytosis -aferbile -NPO Code(s): J18.9 - PNEUMONIA, UNSPECIFIED ORGANISM Qualifiers:
--- NOTE | 2019-08-03 12:00 | PN ---
Progress Note (short form) - Note Progress Note: PULMONARY AWAKE/SMILING /MUCOUS PLUGGING IMPROVED VSS/AFEBRILE Constitutional: Yes: Awake and alert, NAD Eyes: Yes: Conjunctiva Clear HENT: Yes: Atraumatic, Normocephalic Neck: Yes: Trachea Midline, Other (Trach intact ) Cardiovascular: Yes: Regular Rate and Rhythm Respiratory: Yes: Diminished, Mechanically Ventilated, Rhonchi. No: Rales, Stridor, Tachypnea, Wheezes ...Inspection: Yes: WNL ...Clubbing: No Gastrointestinal: Yes: Normal Bowel Sounds, Soft Musculoskeletal: Yes: WNL Edema: No Peripheral Pulses WNL: Yes Integumentary: Yes: WNL Neurological: Yes: Awake and alert Labs: NOTED Problem List - Problems (1) A-fib Code(s): I48.91 - UNSPECIFIED ATRIAL FIBRILLATION (2) Acute metabolic encephalopathy Code(s): G93.41 - METABOLIC ENCEPHALOPATHY (3) Chronic respiratory failure Code(s): J96.10 - CHRONIC RESPIRATORY FAILURE, UNSP W HYPOXIA OR HYPERCAPNIA (4) Lethargy Code(s): R53.83 - OTHER FATIGUE (5) Transaminitis Code(s): R74.0 - NONSPEC ELEV OF LEVELS OF TRANSAMNS & LACTIC ACID DEHYDRGNSE (6) AICD (automatic cardioverter/defibrillator) present Code(s): Z95.810 - PRESENCE OF AUTOMATIC (IMPLANTABLE) CARDIAC DEFIBRILLATOR (7) Acute and chronic respiratory failure with hypercapnia Code(s): J96.22 - ACUTE AND CHRONIC RESPIRATORY FAILURE WITH HYPERCAPNIA (8) Altered mental status Code(s): R41.82 - ALTERED MENTAL STATUS, UNSPECIFIED (9) Anemia Code(s): D64.9 - ANEMIA, UNSPECIFIED (10) Atelectasis Code(s): J98.11 - ATELECTASIS (11) COPD (chronic obstructive pulmonary disease) Code(s): J44.9 - CHRONIC OBSTRUCTIVE PULMONARY DISEASE, UNSPECIFIED (12) HTN (hypertension) Code(s): I10 - ESSENTIAL (PRIMARY) HYPERTENSION (13) PAF (paroxysmal atrial fibrillation) Code(s): I48.0 - PAROXYSMAL ATRIAL FIBRILLATION (14) Pneumonia Code(s): J18.9 - PNEUMONIA, UNSPECIFIED ORGANISM Qualifiers: (15) Respirator dependence Code(s): Z99.11 - DEPENDENCE ON RESPIRATOR [VENTILATOR] STATUS (16) Seizure Code(s): R56.9 - UNSPECIFIED CONVULSIONS Assessment/Plan Frequent suctioning VTE prophylaxis BD TX PRN No clear indication for systemic steroids PO as tolerated Brandi FLOREZ MD
--- NOTE | 2019-08-03 13:08 | EKG ---
Test Reason : Blood Pressure : / mmHG Vent. Rate : 058 BPM Atrial Rate : 058 BPM P-R Int : 148 ms QRS Dur : 080 ms QT Int : 430 ms P-R-T Axes : 095 012 053 degrees QTc Int : 422 ms SINUS BRADYCARDIA WITH OCCASIONAL ventricular-paced complexes SEPTAL INFARCT , AGE UNDETERMINED ABNORMAL ECG WHEN COMPARED WITH ECG OF 01-AUG-2019 19:17, ELECTRONIC VENTRICULAR PACEMAKER HAS REPLACED SINUS RHYTHM VENT. RATE HAS DECREASED BY 51 BPM Confirmed by FILOMENA CAMACHO MD ([id number]) on 08/03/2019 1:08:29 PM Referred By: Jermaine NOGUERA Confirmed By:FILOMENA CAMACHO MD
[2019-08-03] MEDS: ACETAMINOPHEN 325 MG TABLET (FP) PO SCH ×3 (14:57→21:39)
[2019-08-03] MEDS: ASCORBIC ACID 500 MG/5 ML UNIT DOSE CUP PO SCH (14:58)
[2019-08-03] MEDS: ATORVASTATIN CA 10 MG TABLET (FP) PO SCH (21:39)
[2019-08-04] MEDS ORDERED: PIPERACILLIN/TAZOBACTAM 3.375 GM VIAL IVPB ONE ×2 (02:23→09:15)
[2019-08-04] MEDS ORDERED: DEXTROSE 5%-WATER - 50 ML IVPB ONE ×2 (02:24→09:15)
[2019-08-04] MEDS: PIPERACILLIN/TAZOB 3.375 GM 3.375 GM in DEXTROSE 5%-WATER - 50 ML IVPB SCH ×2 (02:43→09:21)
[2019-08-04] MEDS: ALBUTEROL SO4 2.5/IPRATROPIUM 0.5 INH SOL 3 ML VIAL.NEB. NEB SCH ×3 (08:38→16:06)
[2019-08-04] MEDS ORDERED: PT OWN MED DRAWER 7, Y5N ONE (09:15)
[2019-08-04] MEDS: FUROSEMIDE 20 MG TABLET (FP) PO SCH (09:21)
[2019-08-04] MEDS: DOCUSATE NA 100 MG/10 ML UNIT-DOSE CUPS PO SCH (09:21)
[2019-08-04] MEDS: FERROUS SO4 300 MG/5 ML ORAL SOLN UNIT DOSE CUPS PO SCH ×2 (09:21→17:30)
[2019-08-04] MEDS: methylPREDNISolone NA SUCC 40 MG/1 ML VIAL IVPUSH SCH (09:22)
[2019-08-04] MEDS: LORATADINE 10 MG TABLET PO SCH (09:22)
[2019-08-04] MEDS: ACETAMINOPHEN 325 MG TABLET (FP) PO SCH ×2 (09:22→15:51)
[2019-08-04] MEDS: ASCORBIC ACID 500 MG/5 ML UNIT DOSE CUP PO SCH (09:23)
[2019-08-04] MEDS: APIXABAN 2.5 MG TABLET PO SCH (09:23)
[2019-08-04] MEDS: METOPROLOL TARTRATE 25 MG TABLET (FP) PO SCH (09:23)
--- NOTE | 2019-08-04 11:10 | DS ---
Physical Examination Vital Signs: Vital Signs Temperature 97.7 F 08/04/19 06:16 Pulse Rate 59 L 08/04/19 08:40 Respiratory Rate 14 08/04/19 08:39 Blood Pressure 128/62 08/04/19 06:16 O2 Sat by Pulse Oximetry (%) 100 08/04/19 09:00 Findings/Remarks: This is a 84 y/o woman from [facility] with a pMHx of Chronic Respiratory failure , s/p Trach vent-dependent, COPD, CAD- s/p PM, HTN, HLD, DM, Anemia. Who presents to the ED via ambulance for AMS. Per [place] records patient is less responsive than baseline, no longer opening her eyes to voice or responding to painful stimuli like she normally would. hospital Course: She was diagnosed with RLL pneumonia, treated with Zosyn IV. MBS was negative for aspiration. Constitutional: Yes: No Distress, Calm, Cachectic Cardiovascular: Yes: Regular Rate and Rhythm Respiratory: Yes: Mechanically Ventilated Gastrointestinal: Yes: Normal Bowel Sounds, Soft Renal/: Yes: Incontinence Musculoskeletal: Yes: Muscle Weakness Edema: No Peripheral Pulses WNL: Yes Neurological: Yes: Alert, Oriented Psychiatric: Yes: Alert, Oriented Labs: CBC, BMP 08/03/19 07:00 08/03/19 07:00 Discharge Summary Problems reviewed: Yes Reason For Visit: ACUTE RESPITATORY FAILURE,PNEUMONIA Current Active Problems A-fib (Acute) Acute metabolic encephalopathy (Acute) Allergy to multiple antibiotics (Acute) Bacteremia (Acute) Chronic respiratory failure (Acute) Lethargy (Acute) Transaminitis (Acute) Laboratory Last Values WBC 6.7 K/mm3 (4.0-10.0) 08/03/19 07:00 Corrected WBC (auto) Cancelled 07/29/19 07:00 RBC 3.41 M/mm3 (3.60-5.2) L 08/03/19 07:00 Hgb 9.7 GM/dL (10.7-15.3) L 08/03/19 07:00 Hct 30.0 % (32.4-45.2) L 08/03/19 07:00 MCV 88.0 fl (80-96) 08/03/19 07:00 MCH 28.3 pg (25.7-33.7) 08/03/19 07:00 MCHC 32.2 g/dl (32.0-36.0) 08/03/19 07:00 RDW 16.2 % (11.6-15.6) H 08/03/19 07:00 Plt Count 137 K/MM3 (134-434) 08/03/19 07:00 MPV 8.9 fl (7.5-11.1) 08/03/19 07:00 Absolute Neuts (auto) 6.0 K/mm3 (1.5-8.0) 08/03/19 07:00 Neutrophils % 89.6 % (42.8-82.8) H D 08/03/19 07:00 Lymphocytes % 7.5 % (8-40) L D 08/03/19 07:00 Monocytes % 2.4 % (3.8-10.2) L 08/03/19 07:00 Eosinophils % 0.3 % (0-4.5) 08/03/19 07:00 Basophils % 0.2 % (0-2.0) 08/03/19 07:00 Nucleated RBC % 0 % (0-0) 08/03/19 07:00 Platelet Estimate Cancelled 07/29/19 07:00 Platelet Comment Cancelled 07/29/19 07:00 PT with INR 13.90 SEC (9.7-13.0) H 07/28/19 03:30 INR 1.18 (0.83-1.09) H 07/28/19 03:30 PTT (Actin FS) 34.2 SECONDS (25.2-36.5) 07/28/19 03:30 Anticoagulation Therapy No Result Required. 08/01/19 19:00 Puncture Site Right radial 08/01/19 19:00 ABG pH 7.33 (7.35-7.45) L 08/01/19 19:00 ABG pCO2 at Pt Temp 63.4 mmHg (35-45) H 08/01/19 19:00 ABG pO2 at Pt Temp 250 mmHg (80-100) H 08/01/19 19:00 ABG HCO3 32.2 mmol/L (22-27) H 08/01/19 19:00 ABG O2 Sat (Measured) 99.5 % (95-98) H 08/01/19 19:00 ABG O2 Content 17.0 % vol 08/01/19 19:00 ABG Base Excess 5.0 meq/l (-2-2) H 08/01/19 19:00 Jose Test Positive 08/01/19 19:00 VBG pH 7.14 (7.31-7.41) L* 07/28/19 03:30 POC VBG pCO2 > 100 mmHg (38-52) H* 07/28/19 03:30 POC VBG pO2 < 49 mmHg (28-48) H 07/28/19 03:30 VBG HCO3 No Result Required. 07/28/19 03:30 VBG O2 Sat (Gianfranco) 48.7 % (70-80) L 07/28/19 03:30 VBG Base Excess No Result Required. 07/28/19 03:30 Carboxyhemoglobin 0.6 % (0-2) 07/28/19 06:02 Methemoglobin < 1.0 % (0-2) 07/28/19 06:02 O2 Delivery Device Mech. vent 08/01/19 19:00 Oxygen Flow Rate 100% 08/01/19 19:00 Vent Mode No Result Required. 08/01/19 19:00 Vent Rate 12 08/01/19 19:00 Mechanical Rate Yes 08/01/19 19:00 PEEP 5.0 cmH2O 08/01/19 19:00 Pressure Support Vent 500 08/01/19 19:00 Sodium 143 mmol/L (136-145) 08/03/19 07:00 Potassium 4.1 mmol/L (3.5-5.1) 08/03/19 07:00 Chloride 105 mmol/L (98-107) 08/03/19 07:00 Carbon Dioxide 32 mmol/L (21-32) 08/03/19 07:00 Anion Gap 5 MMOL/L (8-16) L 08/03/19 07:00 BUN 22.4 mg/dL (7-18) H 08/03/19 07:00 Creatinine 0.8 mg/dL (0.55-1.3) 08/03/19 07:00 Est GFR (CKD-EPI)AfAm 79.02 08/03/19 07:00 Est GFR (CKD-EPI)NonAf 68.18 08/03/19 07:00 POC Glucometer 131 UNITS (80-120) 08/01/19 18:57 Random Glucose 107 mg/dL (74-106) H 08/03/19 07:00 Lactic Acid 1.9 mmol/L (0.4-2.0) 07/28/19 03:30 Calcium 8.7 mg/dL (8.5-10.1) 08/03/19 07:00 Phosphorus 5.5 mg/dL (2.5-4.9) H 08/01/19 19:30 Magnesium 2.6 mg/dL (1.8-2.4) H 08/01/19 19:30 Total Bilirubin 0.4 mg/dL (0.2-1) 08/03/19 07:00 AST 25 U/L (15-37) 08/03/19 07:00 ALT 62 U/L (13-61) H 08/03/19 07:00 Alkaline Phosphatase 193 U/L (45-117) H 08/03/19 07:00 Creatine Kinase 22 U/L (26-192) L 08/03/19 07:00 CK-MB (CK-2) 1.2 ng/mL (0.5-3.6) 07/28/19 03:30 Troponin I < 0.02 ng/ml (0.00-0.05) 08/03/19 07:00 Total Protein 6.4 g/dl (6.4-8.2) 08/03/19 07:00 Albumin 3.0 g/dl (3.4-5.0) L 08/03/19 07:00 Urine Color Yellow 07/28/19 03:15 Urine Appearance Clear 07/28/19 03:15 Urine pH 6.0 (5.0-8.0) D 07/28/19 03:15 Ur Specific [place] 1.013 (1.010-1.035) 07/28/19 03:15 Urine Protein 2+ (NEGATIVE) H 07/28/19 03:15 Urine Glucose (UA) Negative (NEGATIVE) 07/28/19 03:15 Urine Ketones Negative (NEGATIVE) 07/28/19 03:15 Urine Blood Negative (NEGATIVE) 07/28/19 03:15 Urine Nitrite Negative (NEGATIVE) 07/28/19 03:15 Urine Bilirubin Negative (NEGATIVE) 07/28/19 03:15 Urine Urobilinogen 0.2 mg/dL (0.2-1.0) 07/28/19 03:15 Ur Leukocyte Esterase Negative (NEGATIVE) 07/28/19 03:15 Urine WBC (Auto) 5 /hpf (0-5) 07/28/19 03:15 Urine RBC (Auto) 1 /hpf (0-4) 07/28/19 03:15 Urine Casts (Auto) 28 /lpf (0-8) 07/28/19 03:15 U Pathogenic Cast Auto None seen /lpf (NEGATIVE) 07/28/19 03:15 U Epithel Cells (Auto) 17.4 /HPF (0-5/HPF) 07/28/19 03:15 U Sm Round Cell (Auto) None seen 07/28/19 03:15 Urine Crystals (Auto) Amorphous urates /hpf 07/28/19 03:15 Urine Bacteria (Auto) 931.9 /hpf (NEGATIVE) 07/28/19 03:15 Influenza A (Rapid) Negative (Negative) 07/28/19 03:30 Influenza B (Rapid) Negative (Negative) 07/28/19 03:30 Blood Type A POSITIVE 07/28/19 03:30 Antibody Screen Negative 07/28/19 03:30 Microbiology 07/29/19 11:40 Blood - Peripheral Venous Blood Culture - Final NO GROWTH AFTER 5 DAYS INCUBATION 07/29/19 11:10 Blood - Peripheral Venous Blood Culture - Final NO GROWTH AFTER 5 DAYS INCUBATION 07/28/19 03:30 Blood - Peripheral Venous Blood Culture - Final NO GROWTH AFTER 5 DAYS INCUBATION 07/28/19 07:15 Sputum - Endotrachea Suction/Ventilator Gram Stain - Final 07/28/19 07:15 Sputum - Endotrachea Suction/Ventilator Sputum Culture - Final Proteus Mirabilis Morganella Morganii 07/28/19 03:30 Blood - Peripheral Venous Blood Culture - Final Staph Hominis Sub Sp Hominis 07/28/19 03:15 Urine - Urine Clean Catch Urine Culture - Final Enterococcus Faecium Vital Signs Temp 97.7 F 08/04/19 06:16 Pulse 59 L 08/04/19 08:40 Resp 14 08/04/19 08:39 BP 128/62 08/04/19 06:16 Pulse Ox 100 08/04/19 09:00 Intake & Output 08/03/19 08/03/19 08/04/19 11:59 23:59 11:59 Intake Total 75 50 50 Balance 75 50 50 Intake: IVPB 50 50 Oral 25 50 Other: Voiding Method Diaper Diaper Incontinent # Unmeasured Voids Void 1 1 Bowel Movement No No # Bowel Movements 1 Body Mass Index (BMI) 19.9 Condition: Stable - Instructions Diet, Activity, Other Instructions: Bactrim DS BID x 4 days Check CBC/CMP in 1 week to f/u on renal function Referrals: Jacky Cook MD [Primary Care Provider] - Royer Verduzco MD [Staff Physician] - [facility] - Home Medications Comprehensive Discharge Medication List: Ambulatory Orders Acetaminophen [Tylenol] 325 mg PO Q6H 07/28/19 Apixaban [Eliquis] 2.5 mg PO BID 07/28/19 Ascorbic Acid [Vitamin C] 500 mg PO DAILY 07/28/19 Atorvastatin Ca [Lipitor] 10 mg PO HS 07/28/19 Docusate Liquid [Colace Liquid -] 50 mg PO DAILY 07/28/19 Ferrous Sulfate 325 mg PO BID 07/28/19 Furosemide 20 mg PO DAILY 07/28/19 Loratadine 10 mg PO DAILY 07/28/19 Metoprolol Tartrate [Lopressor -] 12.5 mg PO BID 07/28/19 Albuterol 2.5/Ipratropium 0.5 [Duoneb -] 1 amp NEB RQID amp 07/30/19 Sulfamethoxazole/Trimethoprim [Bactrim Ds -] 1 tab PO BID #8 tablet 07/31/19 Prescription Drug Monitoring Program (I-STOP) results: I-STOP reviewed and no issues identified
--- NOTE | 2019-08-04 11:20 | PN ---
Progress Note (short form) - Note Progress Note: PULMONARY Vented, awake. No fevers recorded. Vital Signs Period Temp Pulse Resp BP Sys/Vera Pulse Ox Last 24 Hr 97.7 F-99.2 F 55-70 14-18 103-128/54-76 98-100 Gen: vented, awake Heart: RRR Lung: decreased breath sounds at the bases Abd: soft, nontender Ext: no edema CBC, BMP 08/03/19 07:00 08/03/19 07:00 Active Medications Acetaminophen (Tylenol -) 325 mg PO QID [facility] Last Admin: 08/04/19 09:22 Dose: 325 mg Albuterol/Ipratropium (Duoneb -) 1 amp NEB RQID [facility] Last Admin: 08/04/19 08:38 Dose: 1 amp Apixaban (Eliquis -) 2.5 mg PO BID [facility] Last Admin: 08/04/19 09:23 Dose: 2.5 mg Ascorbic Acid (Vitamin C Oral Solution -) 500 mg PO DAILY [facility] Last Admin: 08/04/19 09:23 Dose: 500 mg Atorvastatin Calcium (Lipitor -) 10 mg PO HS [facility] Last Admin: 08/03/19 21:39 Dose: 10 mg Docusate Sodium (Colace Liquid -) 50 mg PO DAILY [facility] Last Admin: 08/04/19 09:21 Dose: 50 mg Ferrous Sulfate (Feosol) 300 mg PO BIDWM [facility] Last Admin: 08/04/19 09:21 Dose: 300 mg Furosemide (Lasix -) 20 mg PO DAILY [facility] Last Admin: 08/04/19 09:21 Dose: 20 mg Piperacillin Sod/Tazobactam (Sod 3.375 gm/ Dextrose) 50 mls @ 100 mls/hr IVPB Q8H-IV [facility]; Protocol Last Admin: 08/04/19 09:21 Dose: 100 mls/hr Loratadine (Claritin -) 10 mg PO DAILY [facility] Last Admin: 08/04/19 09:22 Dose: 10 mg Methylprednisolone Sodium Succinate (Solu-Medrol -) 40 mg IVPUSH BID [facility] Last Admin: 08/04/19 09:22 Dose: 40 mg Metoprolol Tartrate (Lopressor Injection -) 5 mg IVPB Q4H PRN PRN Reason: HYPERTENSION Metoprolol Tartrate (Lopressor -) 25 mg PO BID [facility] Last Admin: 08/04/19 09:23 Dose: 25 mg A/P Chronic Respiratory Failure Pneumonia Acute COPD Exacerbation Atrial Fibrillation Elevated LFTs HTN - antibiotics per ID - can change steroids to PO prednisone and taper - inhaled bronchodilators - rate control - continue anticoagulation - O2 to keep SpO2 >90% - DVT/GI prophylaxis
--- NOTE | 2019-08-04 11:58 | PN ---
Progress Note, [employer] - Note Progress Note: Selected Entries 07/30/19 07/30/19 07/30/19 01:47 02:30 07:00 Breakfast Lunch Supper Temperature 98.6 F 98.3 F 98.7 F 07/30/19 07/30/19 07/30/19 10:00 15:00 18:00 Breakfast 100% Lunch 100% Supper Temperature 98.9 F 98.8 F 07/30/19 07/30/19 07/31/19 19:30 22:58 02:10 Breakfast Lunch Supper 50% Temperature 98.9 F 99.0 F 07/31/19 06:29 Breakfast Lunch Supper Temperature 99.1 F Laboratory Tests 07/31/19 09:00 WBC 6.7 Selected Entries 08/03/19 08/03/19 08/03/19 02:00 06:00 09:00 Lunch Supper Temperature 99.2 F 98.9 F 98.0 F 08/03/19 08/03/19 08/04/19 14:22 20:40 02:04 Lunch 75% Supper NPO Temperature 99.2 F 98.5 F 08/04/19 06:16 Lunch Supper Temperature 97.7 F Laboratory Tests 07/31/19 08/01/19 08/02/19 09:00 07:30 07:20 WBC 6.7 4.5 6.7 08/03/19 07:00 WBC 6.7 (-) aspiration on MBS Tolerating diet.
[2019-08-04 15:56] VITALS: BP 127/68; PULSE 61; TEMP 98.6
== END 2019-08-04 17:57 | DRG 207 ==
LOC: JER 01:25 → JERBED 05:39 → J5S 22:06 → UNDODISIN 07-31 17:47
PROVIDERS: ADMIT Internal Medicine; ATTEND Family Medicine
PROC: 5A1955Z Respiratory Ventilation, Greater than 96 Consecutive Hours (ICD-10-PCS; principal; 2019-07-28)
DX: J96.22 Acute and chronic respiratory failure with hypercapnia (principal); G93.41 Metabolic encephalopathy; R53.2 Functional quadriplegia; J18.9 Pneumonia, unspecified organism; J44.1 Chronic obstructive pulmonary disease with (acute) exacerbation; Z99.11 Dependence on respirator [ventilator] status; J98.11 Atelectasis; R78.81 Bacteremia; J96.21 Acute and chronic respiratory failure with hypoxia; R56.9 Unspecified convulsions; I25.2 Old myocardial infarction; D64.9 Anemia, unspecified; R74.0 Nonspecific elevation of levels of transaminase and lactic acid dehydrogenase [LDH]; D72.829 Elevated white blood cell count, unspecified; E78.00 Pure hypercholesterolemia, unspecified; F41.0 Panic disorder [episodic paroxysmal anxiety]; K21.9 Gastro-esophageal reflux disease without esophagitis; I48.0 Paroxysmal atrial fibrillation; I25.10 Atherosclerotic heart disease of native coronary artery without angina pectoris; E11.9 Type 2 diabetes mellitus without complications; R68.0 Hypothermia, not associated with low environmental temperature; G20 Parkinson's disease; F02.80 Dementia in other diseases classified elsewhere, unspecified severity, without behavioral disturbance, psychotic disturbance, mood disturbance, and anxiety; Z86.73 Personal history of transient ischemic attack (TIA), and cerebral infarction without residual deficits; Z95.810 Presence of automatic (implantable) cardiac defibrillator; Z99.81 Dependence on supplemental oxygen; Z93.0 Tracheostomy status
CPT/HCPCS: 36415; 36600; 71045-TC-FY; 74230-TC-FY; 80048; 80053; 81003; 82375; 82550; 82553; 82803; 82962; 83050; 83605; 83735; 84100; 84484; 85025; 85027; 85610; 85730; 86850; 86900; 86901; 87040; 87070; 87086; 87186; 87205; 87804; 92611-GN; 93005; 93010; 94002; 94640; 99285-25; J7030

== ENCOUNTER 2020-06-15 22:40 | Emergency (ER) | payer OTHER ==
[2020-06-15 23:01] VITALS: BP 94/72; PULSE 74; TEMP 101.1; BMI 16.7
== END 2020-06-16 05:49 | disposition expired ==
LOC: JER 22:40
DX: I46.9 Cardiac arrest, cause unspecified (principal); R65.21 Severe sepsis with septic shock
CPT/HCPCS: 99284-25